=== PATIENT | female | born 1955 | race Caucasian/White ===

== ENCOUNTER → 2017-12-10 05:45 | Outpatient (CLI) | payer SELFPAY | PROVIDERS: Family Provider Student in an Organized Health Care Education/Training Program; PCP Student in an Organized Health Care Education/Training Program; Visit Provider Surgery | DX: Z53.9 Procedure and treatment not carried out, unspecified reason (principal) ==

== ENCOUNTER 2018-05-06 10:00 | Outpatient (RCR) | payer MEDICARE, SELFPAY ==
--- NOTE | 2018-03-06 07:29 | HP.PTEVAL ---
Patient's Visit Information JANETTE MENESES is a 63 year old F referred to Physical Therapy by [facility] Doctor with a diagnosis of R completed rotator cuff tear with subsequent repair. Date of Evaluation: 02/26/18 Physical Therapist: Andrei Chand - Visit Plan Frequency: 2-3x /Week Duration: 6-8 weeks Plan: Start with phase I of RTC protocol and progres HEP. Cont. to progress per protocol. - Subjective Subjective: Pt. is here today for her initial evaluation with diagnosis of complete R rotator cuff tear with repair. DOS on January 302017. Pt. arrives with sling on without issues. Pt. reports having dull pain in R shoulder all the time, but no sharp pains. Pt. has not been completing any exercises. She has been icing and prescribed. Pt. is able to sleep, but does have increaed discomfort at night. Pt. denies N/T in either UE. Pt. reports no mechanism of injury, but just started having increased pain. Pt. is hopeful to increase ROM, strength in order to get back to all recreational activities and ADLs without limitations. - Pain R shoulder Pain Intensity (Out of 10): 2 Pain Intensity Range: 2, 6 - Objective POSTURE: Pt. keeps R arm in guarded positioning. SLightly elevated R shoulder, but able to correct. Pt. has increased thoracic kyphosis and rounded shoulders bilaterally, R worse than L. PALPATION: Pt. has well healing incisions, no signs of infections. NO increased warmth noted. NEUROLOGICAL: Pt. has normal sensation to light and sharp touch of bilateral UEs. Pt. has 2+ triceps and biceps DTR bilaterally. ROM: L shoulder- full AROM without increase in symptoms. R shoulder- PROM- flexion 93deg, abd 87deg, ER at side 15deg. Pt. reports pain with all motions, empty end feel noted. MMT: L shoulder- 5/5 throughout no increase in symptoms. R shoulder- DNT due to recent surgery and tissue integrity. R elbow- flexion 4/5, ext 4/5, no pain noted. - Goals Goal 1:: Pt. to be I with HEP. Goal Time Frame: 4-6 Weeks Goal 2:: Pt. to have increased PROM of R shoulder to full motion with 0-1/10 pain. Goal Time Frame: 2-4 Weeks Goal 3:: Pt. to have full AROM of R shoulder with 0-1/10 pain allowing for increased tolerance to all ADls. Goal Time Frame: 4-6 Weeks Goal 4:: Pt. to have increased R shoulder strength to atleast 4/5 without increase in symptoms allowing increased ability to complete all ADLs and recreational activities. Goal Time Frame: 6-8 Weeks Goal 5:: Pt. to sleep throughout the night with 0-1/10 pain in R shoulder allowing for increased quality of life. Goal Time Frame: 2-4 Weeks Goal 6:: Pt. to resume all ADls without increase in symptoms. - Rehabilitation Potential Physical Therapy Diagnosis: Pt. has signs and symptoms of a R RTC repair, with subsequent hypombility, weakness, increased pain and limited ability to functionally use her RUE. Pt. would benefit from PT to increase R shoulder PROM, AROM, progressing to strength in order to get back to proper functional use of R UE. Rehabilitation Potential: Excellent - Anticipated Interventions Patient/Client Instruction: Educate patient on: Condition, Plan of Care, Risk Factors, Benefits of Fitness Program For the Purpose of:: To foster healthy habits, To improve decision making, To facilitate caregiver knowledge, To improve self management, To prevent re-injury, To improve ability to perform tasks related to life management, To improve tolerance to ADL's Therapeutic Exercise to Include: Strength training, Power training, Postural training, Flexibilty training, Passive ROM, Active ROM, Scapular Strength/Stabilization For the Purpose of:: To decrease pain, To increase ROM, To improve nutrient delivery to tissue, To increase oxygenation perfusion, To improve muscle performance and motor function, To improve ability to perform ADL's, To improve performance and independence with ADL's, To improve health of tissue, To decrease soft tissue restriction, To increase flexibility/ROM Manual Therapy Techniques to Include: Mobilization, Passive ROM, Soft tissue mobilization For the Purpose of:: To decrease pain, To increase ROM, To improve muscle performance and motor function, To decrease soft tissue restriction, To increase flexibility/ROM IF ES: Yes Cryotherapy (ice pack, ice massage): Yes For the Purpose of:: To decrease pain, To decrease swelling/inflammation, To increase ROM Thank you for the opportunity to evaluate your patient. For Medicare and Medicare HMO plans, please review the plan of care and approve it. It will need to be FAXED BACK to us at [phone] for Medicare purposes. Please let me know if there are questions or concerns regarding this plan of care. Physician Signature: Date:
--- NOTE | 2018-04-16 14:01 | HP.PTREVAL_ITS ---
ARNOLDO KIMBLE, It has been my pleasure to treat JANETTE MENESES over the last 6 visits for R completed rotator cuff tear with subsequent repair. Please see the progress note below for an update on the physical therapy plan of care! Subjective: Pt. arrives today with another script from physician for end range phase I and phase II progression. Pt. reports physician was not thrilled that she removed her self from her sling earlier that she was instructed. pt. reports being HEP compliant. Objective/Function: Pt. tolerated all motions and exercises without limitations this date. Pt. cotniues to progress. she is limited with functional IR to gluteal region, pt. to focus on over the next few days. Plan Plan: Cont w/ POC. Goals Goal 1:: Pt. to be I with HEP. Goal Time Frame: 4-6 Weeks Goal Progress: Progressing Goal 2:: Pt. to have increased PROM of R shoulder to full motion with 0-1/10 pain. Goal Time Frame: 2-4 Weeks Goal Progress: Progressing Goal 3:: Pt. to have full AROM of R shoulder with 0-1/10 pain allowing for increased tolerance to all ADls. Goal Time Frame: 4-6 Weeks Goal Progress: Progressing Goal 4:: Pt. to have increased R shoulder strength to atleast 4/5 without increase in symptoms allowing increased ability to complete all ADLs and recreational activities. Goal Time Frame: 6-8 Weeks Goal Progress: Progressing Goal 5:: Pt. to sleep throughout the night with 0-1/10 pain in R shoulder allowing for increased quality of life. Goal Time Frame: 2-4 Weeks Goal Progress: Progressing Goal 6:: Pt. to resume all ADls without increase in symptoms. Anticipated Interventions Patient/Client Instruction: Educate patient on: Condition, Plan of Care, Risk Factors, Benefits of Fitness Program For the Purpose of:: To foster healthy habits, To improve decision making, To facilitate caregiver knowledge, To improve self management, To prevent re-injury , To improve ability to perform tasks related to life management, To improve tolerance to ADL's Therapeutic Exercise to Include: Strength training, Power training, Postural training, Flexibilty training, Passive ROM, Active ROM, Scapular Strength/ Stabilization For the Purpose of:: To decrease pain, To increase ROM, To improve nutrient delivery to tissue, To increase oxygenation perfusion, To improve muscle performance and motor function, To improve ability to perform ADL's, To improve performance and independence with ADL's, To improve health of tissue, To decrease soft tissue restriction, To increase flexibility/ROM Manual Therapy Techniques to Include: Mobilization, Passive ROM, Soft tissue mobilization For the Purpose of:: To decrease pain, To increase ROM, To improve muscle performance and motor function, To decrease soft tissue restriction, To increase flexibility/ROM IF ES: Yes Cryotherapy (ice pack, ice massage): Yes For the Purpose of:: To decrease pain, To decrease swelling/inflammation, To increase ROM Please do not hesitate to contact me at [phone] by phone or Fax: if you have questions or concerns regarding this new plan of care! Sincerely, Andrei Chand
--- NOTE | 2018-06-24 14:23 | HP.PTDCNRP_ITS ---
HP - Discharge Summary (1) - Patient Information JANETTE MENESES was seen in my office for initial evaluation on 02/26/18. The following Plan of Care was established for this patient: Initial Frequency: 2-3x /Week Initial Duration: 6-8 weeks - Anticipated Interventions Patient/Client Instruction: Educate patient on: Condition, Plan of Care, Risk Factors, Benefits of Fitness Program For the Purpose of:: To foster healthy habits, To improve decision making, To facilitate caregiver knowledge, To improve self management, To prevent re- injury, To improve ability to perform tasks related to life management, To im prove tolerance to ADL's Therapeutic Exercise to Include: Strength training, Power training, Postural training, Flexibilty training, Passive ROM, Active ROM, Scapular Strength /Stabilization For the Purpose of:: To decrease pain, To increase ROM, To improve nutrient delivery to tissue, To increase oxygenation perfusion, To improve muscle performance and motor function, To improve ability to perform ADL's, To improve performance and independence with ADL's, To improve health of tissue, To decrease soft tissue restriction, To increase flexibility/ROM Manual Therapy Techniques to Include: Mobilization, Passive ROM, Soft tissue mobilization For the Purpose of:: To decrease pain, To increase ROM, To improve muscle performance and motor function, To decrease soft tissue restriction, To increase flexibility/ROM IF ES: Yes Cryotherapy (ice pack, ice massage): Yes For the Purpose of:: To decrease pain, To decrease swelling/inflammation, To increase ROM This patient was last seen in our office 05/06/18. Pertinent comments regarding their Physical therapy will appear below: Pt. was seen for her RTC repair. Pt. was seen on and off for 2 months. She was progressing, but slower than expected. At our last visit, pt. was still having difficulty with functional IR. Pt. has not been seen in ~7 weeks and will be DC back to physician at this point in time. At this point I will be discontinuing this patient from physical therapy. I would be happy to see this patient again in the future if found appropriate by the physician. Thank you! Andrei Chand
== END 2018-05-06 19:00 | disposition home or self-care (01) ==
LOC: PT 10:00
PROVIDERS: Family Provider Student in an Organized Health Care Education/Training Program; PCP Student in an Organized Health Care Education/Training Program
DX: M75.121 Complete rotator cuff tear or rupture of right shoulder, not specified as traumatic (principal)
CPT/HCPCS: 97110; 97161

== ENCOUNTER → 2019-03-30 | Outpatient (CLI) | payer MEDICARE, SELFPAY ==
--- NOTE | 2019-03-30 13:24 | MRI_ITS ---
STUDY: MRI RIGHT KNEE REASON FOR EXAM: Female, 64 years old. Medial, anterior knee pain TECHNIQUE: Standardized fat and water weighted pulse sequences were obtained in all 3 orthogonal planes. COMPARISON: None. FINDINGS: Normal medial meniscus. Normal hyaline cartilage of the medial femorotibial compartment. Normal medial femoral condyle and tibial plateau. There is a complete rupture of the MCL at its origin on the medial femoral condyle and an intrasubstance tear. Normal distal semimembranosus, gracilis and semitendinosus tendons. Normal lateral meniscus. Normal hyaline cartilage of the lateral femorotibial compartment. Normal lateral femoral condyle and tibial plateau. Normal proximal tibiofibular articulation. Normal lateral collateral (fibular) ligament. Normal popliteus tendon. Normal biceps femoris tendon. Normal anterior cruciate ligament (ACL). Normal posterior cruciate ligament (PCL). Normal congruent patellofemoral articulation. There is diffuse, greater than 50% thickness articular cartilage loss of the patellofemoral compartment, most prominent along the lateral facet with mild underlying degenerative changes of the patellar marrow. Normal medial and lateral patellar retinaculum. Normal quadriceps tendon. Normal patellar tendon. Normal Hoffa's fat pad. There is no joint effusion. There is a tiny Romo's cyst. The soft tissues are unremarkable. The otherwise visualized osseous structures are unremarkable. MRI/Lower Ext Joint Only (Routine) IMPRESSION: There is a complete rupture of the MCL. Chondromalacia of the patellofemoral compartment. Electronically Signed: Gilberto Malu, at 17:04 EDT Tel , Service support ,
== END | disposition home or self-care (01) ==
PROVIDERS: Family Provider Student in an Organized Health Care Education/Training Program; PCP Student in an Organized Health Care Education/Training Program; Referring Provider Physician Assistant; Visit Provider Physician Assistant
DX: M25.561 Pain in right knee (principal)
CPT/HCPCS: 73721

== ENCOUNTER → 2019-08-11 09:20 | Outpatient (CLI) | payer MEDICARE, SELFPAY ==
[2019-08-11 09:10] VITALS: BMI 39.4
--- NOTE | 2019-08-11 09:22 | RAD_ITS ---
STUDY: X-RAY - RIGHT KNEE REASON FOR EXAM: Right knee pain. TECHNIQUE: 4 view(s) of the knee. COMPARISON: None. FINDINGS: Normal visualized distal femur. Normal visualized proximal tibia and fibula. Normal proximal tibiofibular articulation. Normal medial femorotibial compartment. Normal lateral femorotibial compartment. Normal patellofemoral articulation. There is mild patellar enthesopathy. RAD/Knee 4 or More Views IMPRESSION: Mild patellar enthesopathy. Otherwise, unremarkable x-ray examination of the right knee. Electronically Signed: Tor Gallego MD at 11:22 EST Tel , Service support ,
== END ==
PROVIDERS: Family Provider Student in an Organized Health Care Education/Training Program; PCP Student in an Organized Health Care Education/Training Program; Referring Provider Orthopaedic Surgery; Visit Provider Orthopaedic Surgery
DX: M25.561 Pain in right knee (principal)
CPT/HCPCS: 73564

== ENCOUNTER 2020-06-08 07:51 | Day surgery (SDC) | payer MEDICARE, SELFPAY ==
[2020-05-25 14:38] VITALS: BMI 39.4
--- NOTE | 2020-05-26 02:19 | HP_ITS ---
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 Is patient in pain?: No Allergies adhesive tape Allergy (Verified 05/25/20 14:38) Rash Medications Aspirin/Acetaminophen/Caffeine [Excedrin Migraine Caplet] 1 ea PO PRN PRN 11/06/17 [History Confirmed 05/25/20] Cinnamon Bark [Cinnamon] 350 mg PO DAILY 11/06/17 [History Confirmed 05/25/20] Duloxetine HCl 90 mg PO DAILY 11/06/17 [History Confirmed 05/25/20] Ergocalciferol [Vitamin D] 50,000 unit PO Q7D 11/06/17 [History Confirmed 05/25/20] Krill/Clements-3/Dha/Epa/Lipids [Clements-3 Krill Oil 300 mg Sftg] 1 ea PO DAILY 11/06/17 [History Confirmed 05/25/20] Levothyroxine [Synthroid] 25 mcg PO DAILY 11/06/17 [History Confirmed 05/25/20] Losartan Potassium [Cozaar] 50 mg PO DAILY 11/06/17 [History Confirmed 05/25/20] Magnesium 250 mg PO DAILY 11/06/17 [History Confirmed 05/25/20] Omeprazole [Prilosec] 20 mg PO PRN PRN 11/06/17 [History Confirmed 05/25/20] buPROPion SR [Wellbutrin Sr] 150 mg PO DAILY 11/06/17 [History Confirmed 05/25/20] metFORMIN HCl [Glucophage] 1,000 mg PO BIDCM 11/06/17 [History Confirmed 05/25/20] Handicap Placard See Rx Instructions .ROUTE .COMPLEX #1 unit 03/06/19 [Rx Confirmed 08/11/19] PFSH Medical History Depression (Acute) Diabetes (Acute) Migraines (Acute) S/p nephrectomy (Acute) HTN (hypertension) (Chronic) Surgical History History of lobectomy of thyroid (Acute) S/P exploratory laparotomy (Acute) S/P hysterectomy (Acute) S/P shoulder surgery (Acute) Family History Father Colon cancer Brother Cancer bladder Social History (Updated 05/26/20 @ 14:[address] Hector Casiano MD) Smoking Status: Former smoker alcohol intake: current alcohol intake frequency: holidays/special occasions only HPI HPI Surgical H&P: Yes HPI: JANETTE MENESES, is a 65 F who presents to the office today for Evaluation for endoscopy. Patient has been having progressive symptoms of chest pain with reflux now having some epigastric pain. She has been treating this with [id number] Prilosec. In addition she has Has never had a colonoscopy. ROS General General: Yes fatigue; no weight change, appetite, colon cancer, breast cancer or weakness HEENT HEENT: No difficulty swallowing, eye injury, eye surgery, swollen glands or hoarseness Endo Endocrine: Yes diabetes mellitus; no thyroid disease, thyroid cancer, Hair loss, heat intolerance or cold intolerance Skin Skin: No rash or changing moles Breast Breast: No left breast lump, right breast lump, nipple discharge, breast pain, abnormal mammogram, abnormal US or breast enlargement Musc Musculoskeletal: Yes back problems; no arthritis, rheumatoid arthritis, gout or joint pain Cardio Cardiovascular: No murmur, pacemaker, heart disease, atrial fibrillation, high blood pressure, heart attack, heart stent, palpitations, shortness of breat with exertion or chest pain Psych Psychiatric: Yes depression and anxiety; no hearing voices Resp Respiratory: Yes shortness of breath, Yes sleep apnea, Yes cough, No COPD, No asthma, No emphysema, No wheezing Gastro Gastrointestinal: No abdominal pain, No nausea or vomiting, Yes diarrhea, Yes constipation, Yes blood in stool, Yes acid reflux, Yes hemorrhoids, No ulcers, No gallbladder problem, No black,tarry stools Ketan Hematologic: No blood thinners, No blood disorders, No bleeding, No anemia, No blood clots Neuro Neurologic: No system reviewed and no additional complaints, except as docu, No as per HPI, No abnormal walking, No abnormal hearing, No abnormal movements, No abnormal speech, No behavioral changes, No burning sensations, No confusion, No seizure-like activity, No unsteadiness, No dizziness, No localized weakness, No frequent falls, No headache(s), No lack of coordination, No loss of vision, No memory loss, No numbness, No other visual disturbances, No radiating pain, No restless legs, No sensory deficit, No fainting, No tingling, No tremor(s), No weakness, No other Exam Const General: no acute distress, well developed, well hydrated Orientation: oriented to person, oriented to place, oriented to time [facility] Head: normocephalic, atraumatic Ears: external ears normal Mouth: moist mucous membranes Eyes Sclera: sclerae normal Pupils: normal by confrontation Neck Neck: no lymphadenopathy noted Neck mass: No Thyroid: thyroid normal, symmetrical Chest Chest palpation & inspection: normal inspection of the chest Breast Palpation: No nipple discharge Resp Effort & Inspection: normal respiratory effort Auscultation: clear to auscultation bilaterally Percussion: percussion normal Cardio Rate: regular rate Rhythm: regular rhythm Heart Sounds: no murmurs GI Palpation: soft, no hepatosplenomegaly, no masses, nontender Rectal Exam: other Other: Rectal exam deferred. Extrem General: normal to inspection, no clubbing, cyanosis or edema Assessment & Plan Problems 1. Gastroesophageal reflux disease, esophagitis presence not specified K21.9 2. Encounter for screening colonoscopy Z12.11 Plan I have discussed the above with the patient. I have offered the patient colonoscopy As well as an EGD for evaluation. I have explained the risks/benefits of the procedure and described the procedure. I have discussed the risks with the patient, including but not limited to: infection, bleeding, perforation of the GI tract requiring emergency surgery, inability to complete the procedure, injury to any internal organs, complications of anesthesia, etc. - the patient understands and agrees to proceed. I have answered all the patient's questions to the patient's satisfaction and the patient has no further questions. The patient has been given instructions for the colon cleansing preparation. Coding Level of Care Code Off vis,new,level 3 Diagnoses Gastroesophageal reflux disease, esophagitis presence not specified K21.9 ??Esophagitis presence: esophagitis presence not specified Encounter for screening colonoscopy Z12.11 05/26/20 1420 <Electronically signed by Hector carreon MD> Date _ Hector Casiano MD I have re-examined the patient. There are no clinical changes since date of exam.
[2020-06-08 08:03] VITALS: BP 151/75; PULSE 120; RESP 16; TEMP 35.9; BMI 41.1
[2020-06-08] MEDS: Lactated Ringers 1,000 ML 100 ML IV (08:28)
--- NOTE | 2020-06-08 09:00 | IMM_PTH ---
PATIENT: JANETTE MENESES LOC: EN U#:[id number] AGE/SX: 65/F ROOM: RE06/08/[address]: Dr. Hector Casiano MD : 1955 BED: DIS: 06/08/2020 SPEC #: [id number] RECD: 06/09/20 09:25 STATUS: MANNIE REQ #: [id number] TAYLOR: 06/08/20 09:[address]: Hector Casiano DEPT: IMMUNOHISTOCHEMISTRY RECD BY: Cheri Ruiz ENTERED: 06/09/20 09:26 SP TYPE: IMMUNO OTHR DR: Dr. Juan Locke, Tissues: Stomach, NOS Procedures: H Pylori (initial) PHYSICIAN & INSTITUTION [place] [id number] SPECIMEN INFORMATION: Tissue Source: Antrum biopsy Clinical Info: GERD, screening Specimen Number: [id number] CPT code: 43031 METHODOLOGY: Deparaffinized sections of prefer/formalin-fixed tissue or PAP/DQ stained slides are incubated with monoclonal/polyclonal antibodies/oligonucleotide probes. Localization is made via biotin free immunoperoxidase method. Appropriate controls are performed and reacted as expected. Results on target cell population are indicated in the following table: RESULTS: ANTIBODY / CLONE RESULT H Pylori (polyclonal) negative These tests were developed and their performance characteristics determined by [facility]. They may not have been cleared or approved by the U.S. Food and Drug Administration. The FDA has determined that such clearance or approval is not necessary. INTERPRETATION: Antrum biopsy: Negative for Helicobacter pylori organisms. AM:edith 06/10/20
--- NOTE | 2020-06-08 09:00 | COLBX_PTH ---
PATIENT: JANETTE MENESES LOC: EN U#:[id number] AGE/SX: 65/F ROOM: RE06/08/[address]: Dr. Hector Casiano MD : 1955 BED: DIS: 06/08/2020 SPEC #: [id number] RECD: 06/08/20 15:07 STATUS: MANNIE ALIREZA #: [id number] TAYLOR: 06/08/20 09:[address]: Hector Casiano DEPT: SURGICAL PATHOLOGY RECD BY: Daniella Ramires ENTERED: 06/09/20 09:13 SP TYPE: COLON BX OTHR DR: Dr. Juan Locke, DO Tissues: Gastric mucous membrane Procedures: Surgery Specimen Level IV HEADER OPERATION: [place] [place] DIAGNOSIS: GERD, screening TISSUE SUBMITTED: Antrum biopsy for histo and H. pylori MICROSCOPIC DIAGNOSIS Gastric antrum, biopsy: Mild chronic gastritis. See comment. AM:edith 06/10/20 COMMENT The results of immunohistochemistry for Helicobacter pylori will be reported separately ([id number]). MICROSCOPIC DESCRIPTION Slides are reviewed. GROSS DESCRIPTION Received in fixative is one container labeled with the patient's name and designated antrum biopsy. The specimen consists of one irregular fragment of light giles soft tissue that measures 0.7 x 0.2 x 0.1 cm. The specimen is totally submitted in one cassette. / SJ:edith 06/09/20 TC:3 CPT: 47862
[2020-06-08 09:25] VITALS: BP 119/83; BP 151/75; PULSE 102; RESP 18; TEMP 36.6; O2SAT 95
--- NOTE | 2020-06-08 09:27 | OP.EGD_ITS ---
Patient Name: Barbara Ledesma Procedure Date: 06/08/2020 8:52 AM Date of : 1955 Age: 65 Procedure: Upper GI endoscopy Indications: Gastro-esophageal reflux disease Providers: Hector Casiano MD Referring MD: Juan Locke Medicines: See the Anesthesia note for documentation of the administered medications Patient Profile: This is a 65 year old female. Refer to note in patient chart for documentation of history and physical. Complications: No immediate complications. Procedure: Pre-Anesthesia Assessment: - Prior to the procedure, a History and Physical was performed, and patient medications and allergies were reviewed. The patient's tolerance of previous anesthesia was also reviewed. The risks and benefits of the procedure and the sedation options and risks were discussed with the patient. All questions were answered, and informed consent was obtained. Prior Anticoagulants: The patient has taken aspirin, last dose was 7 days prior to procedure. ASA Grade Assessment: II - A patient with mild systemic disease. After reviewing the risks and benefits, the patient was deemed in satisfactory condition to undergo the procedure. After obtaining informed consent, the endoscope was passed under direct vision. Throughout the procedure, the patient's blood pressure, pulse, and oxygen saturations were monitored continuously. The gastroscope was introduced through the mouth, and advanced to the second part of duodenum. The upper GI endoscopy was accomplished without difficulty. The patient tolerated the procedure well. Scope In: 9:04:04 AM Scope Out: 9:06:48 AM Total Procedure Duration Time 0 hours 2 minutes 44 seconds Findings: A small hiatal hernia was present. No biopsies or other specimens were collected for this exam. The Z-line was regular and was found 39 cm from the incisors. No biopsies or other specimens were collected for this exam. The entire examined stomach was normal. Biopsies were taken with a cold forceps for Helicobacter pylori testing. The examined duodenum was normal. No biopsies or other specimens were collected for this exam. Impression: - Small hiatal hernia. No specimens collected. - Z-line regular, 39 cm from the incisors. No specimens collected. - Normal stomach. Biopsied. - Normal examined duodenum. No specimens collected. Recommendation: - Discharge patient to home. - Resume previous diet. - Continue present medications. - Await pathology results. - Repeat upper endoscopy (date not yet determined) for surveillance. - Return to my office in 1 week. - Perform ambulatory esophageal manometry at appointment to be scheduled. This will be completed if her symptoms do not resolve on PPIs. Procedure Code(s): --- Professional --- 79790, Esophagogastroduodenoscopy, flexible, transoral; with biopsy, single or multiple Diagnosis Code(s): --- Professional --- K44.9, Diaphragmatic hernia without obstruction or gangrene K21.9, Gastro-esophageal reflux disease without esophagitis CPT copyright 2017 [employer]. All rights reserved. The codes documented in this report are preliminary and upon cattle manager review may be revised to meet current compliance requirements. MD Hector Rosales MD 06/08/2020 9:27:29 AM This report has been signed electronically. Number of Addenda: 0 Note Initiated On: 06/08/2020 8:52 AM
--- NOTE | 2020-06-08 09:28 | OP.CCLET_ITS ---
06/08/2020 Juan Locke [address] [id number] Re : Upper GI endoscopy procedure for Barbara Ledesma Dear Dr. Locke This procedure was performed on Monday, June 08, 2020. My impressions and recommendations are as follows: Impressions : - Small hiatal hernia. No specimens collected. - Z-line regular, 39 cm from the incisors. No specimens collected. - Normal stomach. Biopsied. - Normal examined duodenum. No specimens collected. Recommendations : - Discharge patient to home. - Resume previous diet. - Continue present medications. - Await pathology results. - Repeat upper endoscopy (date not yet determined) for surveillance. - Return to my office in 1 week. - Perform ambulatory esophageal manometry at appointment to be scheduled. This will be completed if her symptoms do not resolve on PPIs. My findings are described in the full procedure note, which is enclosed. If I can be of further assistance, please feel free to contact me at Doctor phone number(s): , Fax: [phone], Work: . Sincerely, MD Hector Rosales MD 06/08/2020 9:27:29 AM This report has been signed electronically.
[2020-06-08 09:29] VITALS: BP 126/87; BP 151/75; PULSE 102; RESP 18; O2SAT 93
--- NOTE | 2020-06-08 09:30 | OP.CCLET_ITS ---
06/08/2020 Juan Locke [address] [id number] Re : Colonoscopy procedure for Barbara Ledesma Dear Dr. Locke This procedure was performed on Monday, June 08, 2020. My impressions and recommendations are as follows: Impressions : - Diverticulosis in the sigmoid colon and in the descending colon. No specimens collected. - Non-bleeding internal hemorrhoids. No specimens collected. - The examination was otherwise normal. Recommendations : - Discharge patient to home. - Resume previous diet. - Continue present medications. - Repeat colonoscopy in 10 years for screening purposes. - Return to my office in 1 week. My findings are described in the full procedure note, which is enclosed. If I can be of further assistance, please feel free to contact me at Doctor phone number(s): , Fax: [phone], Work: . Sincerely, MD Hector Rosales MD 06/08/2020 9:30:03 AM This report has been signed electronically.
--- NOTE | 2020-06-08 09:30 | OP.COLON_ITS ---
Patient Name: Barbara Ledesma Procedure Date: 06/08/2020 9:07 AM Date of : 1955 Age: 65 Procedure: Colonoscopy Indications: Screening for colorectal malignant neoplasm Providers: Hector Casiano MD Referring MD: Juan Locke Medicines: See the Anesthesia note for documentation of the administered medications Patient Profile: This is a 65 year old female. Refer to note in patient chart for documentation of history and physical. Last Colonoscopy: none. The patient's first colonoscopy is today. Complications: No immediate complications. Procedure: Pre-Anesthesia Assessment: - Prior to the procedure, a History and Physical was performed, and patient medications and allergies were reviewed. The patient's tolerance of previous anesthesia was also reviewed. The risks and benefits of the procedure and the sedation options and risks were discussed with the patient. All questions were answered, and informed consent was obtained. Prior Anticoagulants: The patient has taken aspirin, last dose was 7 days prior to procedure. ASA Grade Assessment: II - A patient with mild systemic disease. After reviewing the risks and benefits, the patient was deemed in satisfactory condition to undergo the procedure. - Prior to the procedure, a History and Physical was performed, and patient medications and allergies were reviewed. The patient's tolerance of previous anesthesia was also reviewed. The risks and benefits of the procedure and the sedation options and risks were discussed with the patient. All questions were answered, and informed consent was obtained. Prior Anticoagulants: The patient has taken aspirin, last dose was 7 days prior to procedure. ASA Grade Assessment: III - A patient with severe systemic disease. After reviewing the risks and benefits, the patient was deemed in satisfactory condition to undergo the procedure. After I obtained informed consent, the scope was passed under direct vision. Throughout the procedure, the patient's blood pressure, pulse, and oxygen saturations were monitored continuously. The colonoscope was introduced through the anus and advanced to the cecum, identified by appendiceal orifice and ileocecal valve. The colonoscopy was performed without difficulty. The patient tolerated the procedure well. The quality of the bowel preparation was adequate to identify polyps 6 mm and larger in size. Scope In: 9:08:23 AM Scope Withdrawal Time 0 hours 6 minutes 5 seconds Scope Out: 9:20:35 AM Total Procedure Duration Time 0 hours 12 minutes 12 seconds Findings: A few small-mouthed diverticula were found in the sigmoid colon and descending colon. No biopsies or other specimens were collected for this exam. Non-bleeding internal hemorrhoids were found during retroflexion. The hemorrhoids were mild and small. No biopsies or other specimens were collected for this exam. The exam was otherwise without abnormality. Impression: - Diverticulosis in the sigmoid colon and in the descending colon. No specimens collected. - Non-bleeding internal hemorrhoids. No specimens collected. - The examination was otherwise normal. Recommendation: - Discharge patient to home. - Resume previous diet. - Continue present medications. - Repeat colonoscopy in 10 years for screening purposes. - Return to my office in 1 week. Procedure Code(s): --- Professional --- G0121, Colorectal cancer screening; colonoscopy on individual not meeting criteria for high risk Diagnosis Code(s): --- Professional --- Z12.11, Encounter for screening for malignant neoplasm of colon K64.8, Other hemorrhoids K57.30, Diverticulosis of large intestine without perforation or abscess without bleeding CPT copyright 2017 [employer]. All rights reserved. The codes documented in this report are preliminary and upon certified residential medication aide review may be revised to meet current compliance requirements. MD Hector Rosales MD 06/08/2020 9:30:03 AM This report has been signed electronically. Number of Addenda: 0 Note Initiated On: 06/08/2020 9:07 AM
[2020-06-08 09:35] VITALS: BP 123/92; BP 151/75; PULSE 100; RESP 16; O2SAT 94
[2020-06-08 09:40] VITALS: BP 133/84; BP 151/75; PULSE 101; RESP 18; TEMP 36.8; O2SAT 94
[2020-06-08 10:16] VITALS: BP 151/75
[2020-06-08 20:05] LABS: Bedside Glucose 326 mg/dL (70-110)
[2020-06-08 20:05] LABS: Bedside Glucose 324 mg/dL (70-110)
== END 2020-06-08 10:26 | disposition home or self-care (01) ==
LOC: EN 07:51 → AC 07:52
PROVIDERS: PCP Student in an Organized Health Care Education/Training Program; Referring Provider Student in an Organized Health Care Education/Training Program; Visit Provider Surgery
PROC: 0DJD8ZZ Inspection of Lower Intestinal Tract, Via Natural or Artificial Opening Endoscopic (ICD-10-PCS; CPT 45378; principal; 2020-06-08 08:55)
DX: Z12.11 Encounter for screening for malignant neoplasm of colon (principal); K21.9 Gastro-esophageal reflux disease without esophagitis; K44.9 Diaphragmatic hernia without obstruction or gangrene; K57.30 Diverticulosis of large intestine without perforation or abscess without bleeding; K64.8 Other hemorrhoids; Z79.899 Other long term (current) drug therapy; Z79.84 Long term (current) use of oral hypoglycemic drugs; I10 Essential (primary) hypertension; E11.9 Type 2 diabetes mellitus without complications; F32.9 Major depressive disorder, single episode, unspecified; Z87.891 Personal history of nicotine dependence; K29.50 Unspecified chronic gastritis without bleeding
CPT/HCPCS: 43239; G0121; 82962; 87635; 88305; 88342; C9803; J7120; J2405; U0003

== ENCOUNTER → 2022-08-27 | Outpatient (CLI) | payer MEDICARE, SELFPAY ==
--- NOTE | 2022-08-27 14:23 | US_ITS ---
STUDY: RENAL ULTRASOUND - COMPLETE REASON FOR EXAM: Female, 67 years old. UTI chronic. Right nephrectomy in 1974. TECHNIQUE: Ultrasound evaluation of the kidneys was performed with real-time and static land-scale imaging. COMPARISON: None. FINDINGS: RIGHT KIDNEY: Postsurgical absence. DISTAL RIGHT URETER: There is non-visualization of the distal right ureter. There is no demonstrated right ureterovesical junction calculus. There is nonvisualization of the right ureteral jet. LEFT KIDNEY: Normal location of the left kidney, which is normal in size. The left kidney measures 12.2 x 6.5 x 6.3 cm. There is a normal cortex of the left kidney. The renal cortex measures 1.9 cm. There is no left renal mass or cyst. There are no left renal calculi. There is no left hydronephrosis. DISTAL LEFT URETER: There is non-visualization of the distal left ureter. There is no demonstrated left ureterovesical junction calculus. There is a visualized left ureteral jet. BLADDER: The distended urinary bladder has a volume of 200 ml. There is a normal 0.5 cm wall thickness of the distended urinary bladder. There is no demonstrated mass within the urinary bladder. There are no demonstrated bladder calculi. US/Kidney and Bladder IMPRESSION: 1. Normal ultrasound of the left kidney and urinary bladder. 2. Postsurgical absence of the right kidney. Electronically Signed: Nasir Ashley MD at 15:32 EST ,
== END | disposition home or self-care (01) ==
LOC: US 14:21
PROVIDERS: PCP Student in an Organized Health Care Education/Training Program; Referring Provider Urology; Visit Provider Urology
DX: N39.0 Urinary tract infection, site not specified (principal); Z90.5 Acquired absence of kidney
CPT/HCPCS: 76770

== ENCOUNTER 2023-02-22 06:14 | Day surgery (SDC) | payer MEDICARE, SELFPAY ==
[2023-02-22] VITALS (8 sets, daily range): BP systolic 106–145; BP diastolic 72–88; PULSE 89–102; RESP 16–17; TEMP 36.4–36.6; O2SAT 91–98; BMI 36.0
--- NOTE | 2023-02-22 | GASB_PTH ---
PATIENT: JANETTE MENESES LOC: EN U#:[id number] AGE/SX: 68/F ROOM: RE02/22/[address]: Dr. Ben Garcia MD : 1955 BED: DIS: 02/22/2023 SPEC #: [id number] RECD: 02/22/23 13:12 STATUS: MANNIE LAY #: [id number] TAYLOR: 02/22/23 00:[address]: Ben Garcia DEPT: SURGICAL PATHOLOGY RECD BY: Marv Canales ENTERED: 02/22/23 13:14 SP TYPE: Gastric Bx OTHR DR: Dr. Juan Locke, DO Tissues: A - Duodenum, NOS B - Gastric mucous membrane C - Esophageal mucous membrane D - Stomach, NOS E - Esophageal mucous membrane F - COLON BIOPSY G - Sigmoid colon biopsy H - Rectum, NOS Procedures: Special Stain Group II Surgery Specimen Level IV Alcian Blue/PAS (control) HEADER OPERATION: Colonoscopy with polypectomy and biopsies, EGD ([facility]) with biopsy PRE-OP DIAGNOSIS: Iron deficiency anemia, diarrhea TISSUE SUBMITTED: A ? Duodenum, B ? Antrum for H. pylori and path, C ? Distal esophagus, D ? Greater curvature, E ? Mid esophagus, F ? Random biopsies of colon, G ? Proximal sigmoid polyp biopsy, H - Rectal inflammation biopsy MICROSCOPIC DIAGNOSIS A. Duodenum, biopsy: A fragment of duodenal mucosa, no pathologic diagnosis. B. Antrum, biopsy: Mild gastritis. See microscopic description and comment. C. Distal esophagus, biopsy: Fragments of gastroesophageal mucosa with moderate chronic inflammation. Intestinal metaplasia (goblet cell metaplasia) not identified. See comment. D. Greater curvature, biopsy: Minimal gastritis. See microscopic description. E. Mid esophagus, biopsy: A fragment of gastroesophageal mucosa with chronic inflammation. Intestinal metaplasia (goblet cell metaplasia) not identified. See comment. F. Colon, random biopsy: Fragments of colonic mucosa, no pathologic diagnosis. G. Proximal sigmoid polyp, biopsy: Hyperplastic polyp. H. Rectal inflammation, biopsy: A fragment of colonic mucosa with focal ulceration and acute inflammation. See comment. SJ:rg 02/25/2023 COMMENT B. The results of immunohistochemistry for Helicobacter pylori will be reported separately ([id number]). C. Alcian blue/PAS stain with matched control is used in the evaluation of the specimen. E. Alcian blue/PAS stain with matched control is used in the evaluation of the specimen. H. Cryptitis, crypt abscesses, granuloma or glandular distortion are not seen. Correlation with clinical, endoscopic findings and appropriate follow up are necessary. MICROSCOPIC DESCRIPTION Slides are reviewed. B. The specimen shows fragments of gastric mucosa with chronic inflammatory cell infiltrates in the lamina propria consisting of lymphocytes and plasma cells, consistent with mild chronic gastritis. D. The specimen shows fragments of gastric mucosa with chronic inflammatory cell infiltrates in the lamina propria consisting of lymphocytes and plasma cells, consistent with minimal chronic gastritis. GROSS DESCRIPTION A - Received in fixative is one container labeled with the patient's name and designated duodenum. The specimen consists of one irregular fragment of light giles soft tissue that measures 0.3 x 0.3 x 0.1 cm. The specimen is totally submitted in one cassette. B - Received in fixative is one container labeled with the patient's name and designated antrum. The specimen consists of one irregular fragment of light giles soft tissue that measures 0.3 x 0.3 x 0.1 cm. The specimen is totally submitted in one cassette. C - Received in fixative is one container labeled with the patient's name and designated distal esophagus. The specimen consists of two irregular fragments of light giles soft tissue that in aggregate measure 0.7 x 0.4 x 0.1 cm. The specimen is totally submitted in one cassette. D - Received in fixative is one container labeled with the patient's name and designated greater curvature. The specimen consists of one irregular fragment of light giles soft tissue that measures 0.5 x 0.4 x 0.1 cm. The specimen is totally submitted in one cassette. E - Received in fixative is one container labeled with the patient's name and designated mid esophagus. The specimen consists of one irregular fragment of light giles soft tissue that measures 0.6 x 0.3 x 0.1 cm. The specimen is totally submitted in one cassette. F - Received in fixative is one container labeled with the patient's name and designated random biopsy of colon. The specimen consists of multiple irregular fragments of light giles soft tissue that in aggregate measure 1.5 x 0.5 x 0.1 cm. The specimen is totally submitted in one cassette. G - Received in fixative is one container labeled with the patient's name and designated proximal sigmoid polyp biopsy. The specimen consists of one irregular fragment of light giles soft tissue that measures 0.4 x 0.4 x 0.1 cm. The specimen is totally submitted in one cassette. H - Received in fixative is one container labeled with the patient's name and designated rectal inflammation biopsy. The specimen consists of one irregular fragment of light giles soft tissue that measures 0.3 x 0.3 x 0.1 cm. The specimen is totally submitted in one cassette. / SJ:rg 02/22/2023 TC: CPT: 81374 x8, 41017 x2
[2023-02-22] MEDS: Lactated Ringers 1,000 ML 15 ML IV (06:45)
--- NOTE | 2023-02-22 06:57 | PCM.HP.BLA ---
History and Physical Date of Admission: 02/22/23 Intake Visit Reasons:?Diarrhea & ANEMIA Chief Complaint: egd/c-scope Allergies adhesive tape Allergy (Verified 06/08/20 08:01) Rash PFSH Medical History? Depression Diabetes HTN (hypertension) Migraines S/p nephrectomy Surgical History? History of lobectomy of thyroid S/P exploratory laparotomy S/P hysterectomy S/P shoulder surgery Family History? Father Colon cancerBrother Cancer ?? ? bladder Social History? Smoking Status:? Former smoker alcohol intake:? current alcohol intake frequency: holidays/special occasions only HPI HPI HPI: 67-year-old female is being referred by Dr. Juan Locke for surgical consultation regarding diarrhea and iron deficiency anemia.? A written copy of my surgical consult recommendations will return to her.? It is of note that on December 27, 2022 iron level was 17 with a TIBC of 374 and a transferrin saturation of 4.5.? Ferritin was 20.? The patient wants to have her bowels straightened out.? She claims that she will intermittently have diarrhea but she has had that for at least a year or so [facility] records reviewed that she has had a previous colonoscopy on June 08, 2020.? Diverticulosis and hemorrhoids identified.? No active bleeding.? An upper endoscopy was performed at that same setting.? Small hiatal hernia noted gastric biopsy showed mild chronic gastritis and H. pylori was negative. Notes rectal bleeding.? Its been ongoing for period of time.? She thinks it secondary to hemorrhoids.? She has no abdominal pain.? She states that she has not been anemic in the past and that this is a newer diagnosis.? She is not sure whether she might need a future hemorrhoid procedure She also states that via laboratory that Dr. Juan Locke has been in evaluating that she has been newly diagnosed with celiac disease.? She has not yet started her gluten-free diet. ROS General General: Yes fatigue; No weight change, appetite, colon cancer, breast cancer or weakness HEENT HEENT: Yes eye injury; No difficulty swallowing, eye surgery, swollen glands or hoarseness Endo Endocrine: Yes thyroid disease; No diabetes mellitus, thyroid cancer, Hair loss, heat intolerance or cold intolerance Skin Skin: Yes rash; No changing moles Breast Breast: No left breast lump, right breast lump, nipple discharge, breast pain, abnormal mammogram, abnormal US or breast enlargement Musc Musculoskeletal: No back problems, arthritis, rheumatoid arthritis, gout or joint pain Cardio Cardiovascular: No murmur, pacemaker, heart disease, atrial fibrillation, high blood pressure, heart attack, heart stent, palpitations, shortness of breat with exertion or chest pain Psych Psychiatric: Yes depression and anxiety; No hearing voices Resp Respiratory: No shortness of breath, Yes sleep apnea, No cough, No COPD, No asthma, No emphysema and No wheezing Gastro Gastrointestinal: No abdominal pain, No nausea or vomiting, Yes diarrhea, Yes constipation, No blood in stool, Yes acid reflux, Yes hemorrhoids, No ulcers, No gallbladder problem and No black,tarry stools Ketan Hematologic: No blood thinners, No blood disorders, No bleeding, Yes anemia and No blood clots Neuro Neurologic: No system reviewed and no additional complaints, except as documented, No as per HPI, No abnormal gait, No abnormal hearing, No abnormal movements, No abnormal speech, No behavioral changes, No burning sensations, No confusion, No convulsions, No disequilibrium, No dizziness, No localized weakness, No frequent falls, No headache(s), No lack of coordination, No loss of vision, No memory loss, No numbness, No other visual disturbances, No radicular pain, No restless legs, No sensory deficit, No syncope, No tingling, No tremor(s), No weakness and No other Exam Const General: cooperative, healthy appearing and comfortable [facility] Head: normal to inspection Eyes General: appearance normal, both eyes and all related structures Neck Neck: normal visual inspection Resp Effort & Inspection: normal respiratory effort Auscultation: clear to auscultation bilaterally Cardio Rate: regular rate Rhythm: regular rhythm GI Palpation: soft and no hepatosplenomegaly Skin General: no rashes or lesions noted Neuro General: patient alert, patient awake and patient oriented x3 Extrem General: no calf tenderness Psych Appearance: grossly normal Assessment and Plan Assessment and Plan (1) Iron deficiency anemia: ?Status:?Acute (2) Diarrhea: ?Status:?Acute ?Plan: Iron deficiency anemia of undetermined etiology.? I recommended the patient a esophagogastroduodenoscopy with possible biopsy and colonoscopy with possible biopsy or polypectomy as indicated.? She has had an opportunity to ask and have questions answered.? Now it is of note that the patient has recently been diagnosed with celiac disease.? She has not converted yet back to a gluten-free diet.? Might consider random colonic biopsies as well. The patient notes ongoing problems with bright red blood per rectum on the tissue.? We will also then take very careful inspection for degree and type of potential hemorrhoids present.? The patient may be a candidate for future definitive hemorrhoid procedure. She has had an opportunity to ask and have questions answered.? I appreciate the opportunity of assisting with her surgical care.? We will schedule at patient convenience. Copy: Dr. Juan Garcia M.D., F.A.C.S. I have examined the patient and the H&P has been reviewed. There are no clinical changes since date of exam. Ben Garcia M.D., F.A.C.S.
--- NOTE | 2023-02-22 07:30 | IMM_PTH ---
PATIENT: JANETTE MENESES LOC: EN U#:[id number] AGE/SX: 68/F ROOM: RE02/22/[address]: Dr. Ben Garcia MD : 1955 BED: DIS: 02/22/2023 SPEC #: [id number] RECD: 02/22/23 13:42 STATUS: MANNIE REQ #: [id number] TAYLOR: 02/22/23 07:[address]: Ben Garcia DEPT: IMMUNOHISTOCHEMISTRY RECD BY: Cheri Ruiz ENTERED: 02/22/23 13:43 SP TYPE: IMMUNO OTHR DR: Dr. Juan Locke, DO Tissues: B - Stomach, NOS Procedures: H Pylori (initial) PHYSICIAN & INSTITUTION [address] [place] [id number] SPECIMEN INFORMATION: Tissue Source: B - Antrum Clinical Info: Iron deficiency anemia, diarrhea Specimen Number: [id number] CPT code: 24140 METHODOLOGY: Deparaffinized sections of prefer/formalin-fixed tissue or PAP/DQ stained slides are incubated with monoclonal/polyclonal antibodies/oligonucleotide probes. Localization is made via biotin free immunoperoxidase method. Appropriate controls are performed and reacted as expected. Results on target cell population are indicated in the following table: RESULTS: ANTIBODY / CLONE RESULT Block B H Pylori (polyclonal) negative These tests were developed and their performance characteristics determined by [facility]. They may not have been cleared or approved by the U.S. Food and Drug Administration. The FDA has determined that such clearance or approval is not necessary. The above immunohistochemical/dualISH markers are ordered and reviewed by the Pathologist. INTERPRETATION: B. Antrum, biopsy: Negative for Helicobacter pylori organisms. RONI:edith 02/25/2023
--- NOTE | 2023-02-22 08:21 | OP.EGD_ITS ---
Patient Name: Barbara Ledesma Procedure Date: 02/22/2023 7:29 AM Date of : 1955 Age: 68 Procedure: Upper GI endoscopy Indications: Iron deficiency anemia Providers: Ben Garcia MD Medicines: See the Anesthesia note for documentation of the administered medications Complications: No immediate complications. Procedure: Pre-Anesthesia Assessment: - Prior to the procedure, a History and Physical was performed, and patient medications and allergies were reviewed. The patient's tolerance of previous anesthesia was also reviewed. The risks and benefits of the procedure and the sedation options and risks were discussed with the patient. All questions were answered, and informed consent was obtained. Prior Anticoagulants: The patient has taken no previous anticoagulant or antiplatelet agents. ASA Grade Assessment: III - A patient with severe systemic disease. After reviewing the risks and benefits, the patient was deemed in satisfactory condition to undergo the procedure. After obtaining informed consent, the endoscope was passed under direct vision. Throughout the procedure, the patient's blood pressure, pulse, and oxygen saturations were monitored continuously. The Endoscope was introduced through the mouth, and advanced to the second part of duodenum. The upper GI endoscopy was accomplished without difficulty. The patient tolerated the procedure well. Scope In: 7:39:48 AM Scope Out: 7:47:43 AM Total Procedure Duration Time 0 hours 7 minutes 55 seconds Findings: LA Grade A (one or more mucosal breaks less than 5 mm, not extending between tops of 2 mucosal folds) esophagitis with no bleeding was found 35 cm from the incisors. Biopsies were taken with a cold forceps for histology. A mild Schatzki ring was found at the gastroesophageal junction. One column of non-bleeding grade II varices were found in the lower third of the esophagus, 33 cm from the incisors. No stigmata of recent bleeding were evident and no red batsheva signs were present. Diffuse moderately erythematous mucosa without bleeding was found on the greater curvature of the stomach and in the gastric antrum. Biopsies were taken with a cold forceps for histology. The examined duodenum was normal. Biopsies were taken with a cold forceps for histology. A medium-sized hiatal hernia was present. The middle third of the esophagus was normal. Biopsies were taken with a cold forceps for histology. Impression: - LA Grade A reflux esophagitis. Biopsied. - Mild Schatzki ring. - Non-bleeding grade II esophageal varices. - Erythematous mucosa in the greater curvature and antrum. Biopsied. - Normal examined duodenum. Biopsied. - Medium-sized hiatal hernia. - Normal middle third of esophagus. Biopsied. Recommendation: - Discharge patient to home. - Resume previous diet. - Continue present medications. - Telephone my office for pathology results in 1 week. No active bleeding. Copy of note to primary care as esophageal varices may be a new finding and warrant ongoing evaluation. Procedure Code(s): --- Professional --- 19822, Esophagogastroduodenoscopy, flexible, transoral; with biopsy, single or multiple Diagnosis Code(s): --- Professional --- K21.0, Gastro-esophageal reflux disease with esophagitis K22.2, Esophageal obstruction I85.00, Esophageal varices without bleeding K31.89, Other diseases of stomach and duodenum K44.9, Diaphragmatic hernia without obstruction or gangrene D50.9, Iron deficiency anemia, unspecified CPT copyright 2017 [employer]. All rights reserved. The codes documented in this report are preliminary and upon screen printing equipment setter review may be revised to meet current compliance requirements. Ben Garcia MD 02/22/2023 8:20:55 AM This report has been signed electronically. Number of Addenda: 0 Note Initiated On: 02/22/2023 7:29 AM
--- NOTE | 2023-02-22 08:22 | OP.CCLET_ITS ---
02/22/2023 Juan Locke [address] [id number] Re : Upper GI endoscopy procedure for Barbara Ledesma Dear Dr. Locke This procedure was performed on Wednesday, February 22, 2023. My impressions and recommendations are as follows: Impressions : - LA Grade A reflux esophagitis. Biopsied. - Mild Schatzki ring. - Non-bleeding grade II esophageal varices. - Erythematous mucosa in the greater curvature and antrum. Biopsied. - Normal examined duodenum. Biopsied. - Medium-sized hiatal hernia. - Normal middle third of esophagus. Biopsied. Recommendations : - Discharge patient to home. - Resume previous diet. - Continue present medications. - Telephone my office for pathology results in 1 week. No active bleeding. Copy of note to primary care as esophageal varices may be a new finding and warrant ongoing evaluation. My findings are described in the full procedure note, which is enclosed. If I can be of further assistance, please feel free to contact me at Doctor phone number(s): Work: . Sincerely, Ben Garcia MD 02/22/2023 8:20:55 AM This report has been signed electronically.
--- NOTE | 2023-02-22 08:27 | OP.COLON_ITS ---
Patient Name: Barbara Ledesma Procedure Date: 02/22/2023 7:48 AM Date of : 1955 Age: 68 Procedure: Colonoscopy Indications: Chronic diarrhea, Iron deficiency anemia Providers: Ben Garcia MD Medicines: See the Anesthesia note for documentation of the administered medications Patient Profile: Last Colonoscopy: none. The patient's first colonoscopy is today. Complications: No immediate complications. Procedure: Pre-Anesthesia Assessment: - Prior to the procedure, a History and Physical was performed, and patient medications and allergies were reviewed. The patient's tolerance of previous anesthesia was also reviewed. The risks and benefits of the procedure and the sedation options and risks were discussed with the patient. All questions were answered, and informed consent was obtained. Prior Anticoagulants: The patient has taken no previous anticoagulant or antiplatelet agents. ASA Grade Assessment: III - A patient with severe systemic disease. After reviewing the risks and benefits, the patient was deemed in satisfactory condition to undergo the procedure. After I obtained informed consent, the scope was passed under direct vision. Throughout the procedure, the patient's blood pressure, pulse, and oxygen saturations were monitored continuously. The adult colonoscope was introduced through the anus and advanced to the cecum, identified by appendiceal orifice and ileocecal valve. The colonoscopy was performed with moderate difficulty due to a redundant colon. The patient tolerated the procedure well. The quality of the bowel preparation was good. Scope In: 7:52:40 AM Scope Withdrawal Time 0 hours 9 minutes 11 seconds Scope Out: 8:13:23 AM Total Procedure Duration Time 0 hours 20 minutes 43 seconds Findings: The digital rectal exam findings include non-thrombosed external hemorrhoids, non-thrombosed internal hemorrhoids and internal hemorrhoids that prolapse with straining, but require manual replacement into the anal canal (Grade III). Multiple diverticula were found in the sigmoid colon and descending colon. A 5 mm polyp was found in the proximal sigmoid colon. The polyp was sessile. The polyp was removed with a cold biopsy forceps. Resection and retrieval were complete. A localized area of moderately inflamed mucosa was found in the proximal rectum. Biopsies were taken with a cold forceps for histology. Impression: - Non-thrombosed external hemorrhoids, non-thrombosed internal hemorrhoids and internal hemorrhoids that prolapse with straining, but require manual replacement into the anal canal (Grade III) found on digital rectal exam. - Diverticulosis in the sigmoid colon and in the descending colon. - One 5 mm polyp in the proximal sigmoid colon, removed with a cold biopsy forceps. Resected and retrieved. - Inflamed mucosa in the proximal rectum. Biopsied. Recommendation: - Discharge patient to home. - Resume previous diet. - Continue present medications. - Telephone my office for pathology results in 1 week. Combination of esophageal varices and significant hemorrhoidal disease might suggest hepatic etiology. Will defer to primary care. This would place the patient at higher risk for any type of surgical intervention regarding hemorrhoids. - Repeat colonoscopy in 5 years for surveillance. Procedure Code(s): --- Professional --- 32528, Colonoscopy, flexible; with biopsy, single or multiple Diagnosis Code(s): --- Professional --- K64.2, Third degree hemorrhoids K64.4, Residual hemorrhoidal skin tags D12.5, Benign neoplasm of sigmoid colon K62.89, Other specified diseases of anus and rectum K52.9, Noninfective gastroenteritis and colitis, unspecified D50.9, Iron deficiency anemia, unspecified K57.30, Diverticulosis of large intestine without perforation or abscess without bleeding CPT copyright 2017 [employer]. All rights reserved. The codes documented in this report are preliminary and upon pulp refiner operator review may be revised to meet current compliance requirements. Ben Garcia MD 02/22/2023 8:27:24 AM This report has been signed electronically. Number of Addenda: 0 Note Initiated On: 02/22/2023 7:48 AM
--- NOTE | 2023-02-22 08:29 | OP.CCLET_ITS ---
02/22/2023 Juan Locke [address] [place] [address] Re : Colonoscopy procedure for Barbara Ledesma Dear Dr. Locke This procedure was performed on Wednesday, February 22, 2023. My impressions and recommendations are as follows: Impressions : - Non-thrombosed external hemorrhoids, non-thrombosed internal hemorrhoids and internal hemorrhoids that prolapse with straining, but require manual replacement into the anal canal (Grade III) found on digital rectal exam. - Diverticulosis in the sigmoid colon and in the descending colon. - One 5 mm polyp in the proximal sigmoid colon, removed with a cold biopsy forceps. Resected and retrieved. - Inflamed mucosa in the proximal rectum. Biopsied. Recommendations : - Discharge patient to home. - Resume previous diet. - Continue present medications. - Telephone my office for pathology results in 1 week. Combination of esophageal varices and significant hemorrhoidal disease might suggest hepatic etiology. Will defer to primary care. This would place the patient at higher risk for any type of surgical intervention regarding hemorrhoids. - Repeat colonoscopy in 5 years for surveillance. My findings are described in the full procedure note, which is enclosed. If I can be of further assistance, please feel free to contact me at Doctor phone number(s): Work: . Sincerely, Ben Garcia MD 02/22/2023 8:27:24 AM This report has been signed electronically.
[2023-02-22 08:51] LABS: Bedside Glucose 165 mg/dL (74-106)
== END 2023-02-22 09:00 | disposition home or self-care (01) ==
LOC: EN 06:15 → AC 06:17
PROVIDERS: PCP Student in an Organized Health Care Education/Training Program; Referring Provider Student in an Organized Health Care Education/Training Program; Visit Provider Surgery
PROC: 0DJD8ZZ Inspection of Lower Intestinal Tract, Via Natural or Artificial Opening Endoscopic (ICD-10-PCS; CPT 45378; principal; 2023-02-22 07:25)
DX: Z12.11 Encounter for screening for malignant neoplasm of colon (principal); I85.00 Esophageal varices without bleeding; E11.9 Type 2 diabetes mellitus without complications; D50.9 Iron deficiency anemia, unspecified; K22.2 Esophageal obstruction; K64.2 Third degree hemorrhoids; K21.00 Gastro-esophageal reflux disease with esophagitis, without bleeding; K63.5 Polyp of colon; K64.4 Residual hemorrhoidal skin tags; K57.30 Diverticulosis of large intestine without perforation or abscess without bleeding; K44.9 Diaphragmatic hernia without obstruction or gangrene; G47.30 Sleep apnea, unspecified; I10 Essential (primary) hypertension; F32.A Depression, unspecified; K62.6 Ulcer of anus and rectum; K29.70 Gastritis, unspecified, without bleeding; Z79.82 Long term (current) use of aspirin; Z79.899 Other long term (current) drug therapy; Z79.84 Long term (current) use of oral hypoglycemic drugs; Z87.891 Personal history of nicotine dependence
CPT/HCPCS: 45380; 43239; 82962; 88305; 88313; 88342; J2405

== ENCOUNTER 2023-05-01 11:00 | Outpatient (RCR) | payer MEDICARE, SELFPAY ==
--- NOTE | 2023-03-05 12:20 | HP.PTEVAL ---
Patient's Visit Information JANETTE MENESES is a 68 year old F referred to Physical Therapy by Dr. Keyonna Valdivia MD with a diagnosis of MIXED URINARY INCONTINENCE. Date of Evaluation: 03/05/23 Physical Therapist: Huma Salter PT, Cert MDT - Visit Plan Frequency: 1x/Week Duration: 10-12 WKS Plan: *CHECK AUTH*. PF THERAPY FOR STRENGTHENING, LENGTHENING/RELAXATION AND ENDURANCE TRAINING. PELVIC FLOOR STRENGTHENING. URINARY RETENTION, URGE AND FREQUENCY EDUCATION. HEALTHY BLADDER HABIT EDUCATION. TRAINING IN COORDINATION OF PELVIC FLOOR MUSCULATURE WITH HIP AND CORE (TRANSVERSE ABDOMINUS) MUSCULATURE. POSTURE CORRECTION/STRENGTHENING. CORE STRENGTHENING. RAZ LE ROM, STRETCHING AND STRENGTHENING. TRAINING IN ABDOMINAL CAVITY PRESSURE MGMT WITH ADL'S. - Subjective Work/Leisure: RETIRED. Disability: NO. Present symptoms: FREQUENT URINATION, UI RELATED TO URGENCY, UI WITH ACTIVITY, PAIN IN LOWER ABDOMEN AND GENITAL AREA, DIFFICULTY EMPTYING BLADDER. PATIENT REPORTS IT STILL FEELS LIKE SHE HAS A UTI. Present since: AT LEAST 6 MONTHS. Pain Scale: WORST 8/10, LEAST 2/10. Currently: 2/10. Is it getting better, worse or staying the same: STAYING THE SAME. Commenced as a result of: NO APPARENT REASON OTHER THAN UTI TREATED WITH SEVERAL ROUNDS OF ANTIBIOTICS. Symptoms at onset: UTI. Worse: NOTHING AWARE OF. Better: NOTHING PATIENT IS AWARE OF. Disturbed sleep: YES - GETTING UP TO URINATE ABOUT 3 TIMES A NIGHT. Previous history/Previous treatment: H/O A LOT OF UTI'S AND BLADDER INFECTIONS UNTIL HYSTERECTOMY IN 1999. H/O ENDOMETRIOSIS. PAINFUL INCOURSE BEFORE AND AFTER HYSTERECTOMY. Treatment this episode: ANTIBIOTICS FOR UTI. LAST TEST A FEW WKS AGO AT URGENT CARE FOR UTI WAS NEGATIVE. STATES SHE SAW DR. VALDIVIA ABOUT 3-4 MONTHS AGO AND PT WAS ORDERED BUT HASN'T BEEN ABLE TO COME UNTIL NOW DUE TO FAMILY ISSUES. HAS HAD ABOUT [address] VALDIVIA. PATIENT REPORTS ALL OF HER TESTS HAVE BEEN INCONCLUSIVE. SHE REPORTS THE INTERNAL US WAS PAINFUL DURING THE TEST BUT NO INCREASED PAIN AFTERWARDS. Coughing/sneezing/straining: POSITIVE FOR URINARY LEAKING. PAD USE: NO. Gait: NORMAL. How long can you delay the need to urinate: ABOUT A MINUTE. Prolapse (Falling out feeling): NO. Frequency of Urination: ABOUT EVERY 2-3 HOURS. Ability to stop urine flow: SOMETIMES. Ability to initiate urine stream: YES. Dyspareunia: N/A. Bowel Incontinence: NO. Accidents: NO. Unexplained weight loss: NO. Imaging: NO - Objective Sitting/Standing Posture: POOR. FH. RSH'S. NORMAL LORDOSIS. NO RELEVANT LATERAL SHIFT. Other Observations: INDEP GAIT AND TRANSFERS. Sensory deficit: RAZ LE LIGHT TOUCH SENSATION GROSSLY INTACT AND SYMMETRICAL. ROM deficit: MILD RAZ LE HIP ADDUCTOR, HS AND GASTROC SOLEUS TIGHTNESS. Motor deficit: RAZ LE'S GROSSLY 5/5 WITH MMT'ING EXCEPT HIPS 4/5. Dural Signs: NEGATIVE RAZ LE'S. Lumbar mvmt loss: flex - NIL. ext - MIN. R SG - MOD. L SG - MOD. PATIENT DENIES PAIN WITH LUMBAR ROM TESTING. Core strength: POOR. Palpation: PATIENT IS GOING TO CONSIDER MANUAL PF INTERNAL TESTING/TREATMENT NEXT VISIT. FUNCTIONAL SCREEN: Incontinence Impact Questionnaire Score: 17. Urogenital Distress Inventory Score: 15 - Goals Goal 1:: DECREASE C/O PAIN IN LOWER ABDOMEN AND GENITAL AREA Goal Time Frame: 4-6 Weeks Goal 2:: DECREASE URINARY LEAKAGE EPISODES TO ONE OR LESS PER DAY Goal Time Frame: 8-12 Weeks Goal 3:: PATIENT WILL SUCCESSFULLY DELAY VOIDING FOR 10 MINUTES WHEN URGENCY OCCURS Goal Time Frame: 2-4 Weeks Goal 4:: DEVELOP HEALTHY FLUID INTAKE HABITS WITH FLUID INTAKE OF ? BODY WEIGHT IN OUNCES PER DAY AND 2/3 BEING WATER. Goal Time Frame: 2-4 Weeks Goal 5:: NORMALIZE VOIDING FREQUENCEY TO EVERY 3-4 HOURS. Goal Time Frame: 6-8 Weeks Goal 6:: PATIENT WILL BE INDEP WITH A [facility]/HOME INSTRUCTIONS FOR CONTINUED IMPROVEMENT ONCE FORMAL PHYSICAL THERAPY CONCLUDES Goal Time Frame: 8-12 Weeks - Anticipated Interventions Patient/Client Instruction: Educate patient on: Condition, Plan of Care, Risk Factors For the Purpose of:: To improve self management Therapeutic Exercise to Include: Strength training, Endurance training, Body mechanics, Flexibilty training, Neuromotor development For the Purpose of:: To increase ROM, To improve muscle performance and motor function, To increase tolerance to activity/condition/position, To improve ability of physical actions for home/community/work/leisure Manual Therapy Techniques to Include: Trigger point massage, Soft tissue mobilization Comment: PF IF PATIENT AGREEABLE - TEST/TREAT For the Purpose of:: To decrease pain, To improve nutrient delivery to tissue, To improve muscle performance and motor function Thank you for the opportunity to evaluate your patient. For Medicare and Medicare HMO plans, please review the plan of care and approve it. It will need to be FAXED BACK to us at [phone] for Medicare purposes. For Medicare only, by signing this I certify the plan of care. Please let me know if there are questions or concerns regarding this plan of care. Physician Signature: Date:
--- NOTE | 2023-05-01 12:14 | HP.PTREVAL_ITS ---
Re-Evaluation Intro: Dr. Keyonna Valdivia MD, It has been my pleasure to treat JANETTE MENESES over the last 7 visits for MIXED URINARY INCONTINENCE. Please see the progress note below for an update on the physical therapy plan of care! Subjective Subjective: PATIENT REPORTS SHE HAS BEEN MUCH BETTER SINCE LAST VISIT. DID HAVE SOME ANNOYING TYPE PAIN IN HER GENITAL AREA AND LOWER ABDOMEN THIS MORNING WALKING AROUND THE HOUSE FOR NO APPARENT REASON BUT NOT NEAR BAD BEFORE DOING PT. PATIENT REPORTS HEP IS GOING WELL. STATES SHE IS GOING TO WAIT A WEEK OR SO TO SEE IF HER PAIN COMES BACK BEFORE DECIDING FOR SURE TO GET A PELVIC WAND. PLANS TO FOLLOW UP WITH DR. VALDIVIA NEXT MONTH. Objective Objective/Function: PATIENT WAS SEEN TODAY FOR RE-ASSESSMENT OF PROGRESS TOWARD THE SET PT GOALS AND THE NEED FOR FURTHER PHYSICAL THERAPY VS READINESS FOR DISCHARGE. PATIENT HAS MADE GOOD PROGRESS WITH PT AND HAS BEEN INSTRUCTED ON USE OF PELVIC WAND FOR CONTINUED IMPROVEMENT. PF STRENGTH HAS IMPROVED TO 4/5 WITH 10 SEC ENDURANCE WITH TESTING TODAY. SHE IS REPORTING MUCH LESS PAIN AND APPEARS APPROPRIATE FOR DISCHARGE BUT WILL HOLD CHART FOR A FEW WKS. INSTRUCTED IN AND ADDED SUPINE RAZ LE DURAL STRETCHING TO HEP TODAY. PATIENT TOLERATED ALL TREATMENT AND TESTING WELL TODAY. FUNCTIONAL SCREEN: Incontinence Impact Questionnaire Score: 3. Urogenital Distress Inventory Score: 6 Plan Plan Plan: HOLD CHART X 3-4 WKS. Goals Goals Goal 1:: DECREASE C/O PAIN IN LOWER ABDOMEN AND GENITAL AREA Goal Time Frame: 4-6 Weeks Goal Progress: Goal Met Goal 2:: DECREASE URINARY LEAKAGE EPISODES TO ONE OR LESS PER DAY Goal Time Frame: 8-12 Weeks Goal Progress: Goal Met Goal 3:: PATIENT WILL SUCCESSFULLY DELAY VOIDING FOR 10 MINUTES WHEN URGENCY OCCURS Goal Time Frame: 2-4 Weeks Goal Progress: Goal Met Goal 4:: DEVELOP HEALTHY FLUID INTAKE HABITS WITH FLUID INTAKE OF ? BODY WEIGHT IN OUNCES PER DAY AND 2/3 BEING WATER. Goal Time Frame: 2-4 Weeks Goal Progress: Goal Met Goal 5:: NORMALIZE VOIDING FREQUENCEY TO EVERY 3-4 HOURS. Goal Time Frame: 6-8 Weeks Goal Progress: Goal Met Goal 6:: PATIENT WILL BE INDEP WITH A HEP/HOME INSTRUCTIONS FOR CONTINUED IMPROVEMENT ONCE FORMAL PHYSICAL THERAPY CONCLUDES Goal Time Frame: 8-12 Weeks Goal Progress: Goal Met Anticipated Interventions Anticipated Interventions Patient/Client Instruction: Educate patient on: Condition, Plan of Care and Risk Factors For the Purpose of:: To improve self management Therapeutic Exercise to Include: Strength training, Endurance training, Body mechanics, Flexibilty training and Neuromotor development For the Purpose of:: To increase ROM, To improve muscle performance and motor function, To increase tolerance to activity/condition/position and To improve ability of physical actions for home/community/work/leisure Manual Therapy Techniques to Include: Trigger point massage and Soft tissue mobilization Comment: PF IF PATIENT AGREEABLE - TEST/TREAT For the Purpose of:: To decrease pain, To improve nutrient delivery to tissue a nd To improve muscle performance and motor function Re-Evaluation Ending Re-evaluation ending: Please do not hesitate to contact me at [phone] by phone or if you have questions or concerns regarding this new plan of care! Sincerely, Huma Salter, PT, Cert MDT
--- NOTE | 2023-07-16 10:48 | HP.PT.NRP ---
Patient Information Patient Information: JANETTE MENESES was seen in my office for initial evaluation on 03/05/23. The following Plan of Care was established for this patient: POC Established Initial Frequency: 1x/Week Initial Duration: 10-12 WKS Anticipated Interventions Patient/Client Instruction: Educate patient on: Condition, Plan of Care and Risk Factors For the Purpose of:: To improve self management Therapeutic Exercise to Include: Strength training, Endurance training, Body mechanics, Flexibilty training and Neuromotor development For the Purpose of:: To increase ROM, To improve muscle performance and motor function, To increase tolerance to activity/condition/position and To improve ability of physical actions for home/community/work/leisure Manual Therapy Techniques to Include: Trigger point massage and Soft tissue mobilization Comment: PF IF PATIENT AGREEABLE - TEST/TREAT For the Purpose of:: To decrease pain, To improve nutrient delivery to tissue and To improve muscle performance and motor function Last Seen Last Seen: This patient was last seen in our office 05/01/23. Pertinent comments regarding their Physical therapy will appear below: This patient has not returned to Physical Therapy and is appropriate to return to MD for further follow-up as needed. At this point I will be discontinuing this patient from physical therapy. I would be happy to see this patient again in the future if found appropriate by the physician. Thank you! Huma Salter PT, Cert MDT
== END 2023-05-01 19:00 | disposition home or self-care (01) ==
LOC: PT 11:00
PROVIDERS: PCP Student in an Organized Health Care Education/Training Program; Referring Provider Urology; Visit Provider Urology
DX: N39.46 Mixed incontinence (principal)
CPT/HCPCS: 97140; 97162; 97164; 97530

== ENCOUNTER 2024-01-29 14:29 | Emergency (ER) | payer MEDICARE, SELFPAY ==
[2024-01-29 14:31] VITALS: BP 150/69; PULSE 114; RESP 18; TEMP 36.1; O2SAT 98; BMI 35.6
--- NOTE | 2024-01-29 14:35 | ED.VIS.GI ---
HPI HPI - GI History of Present Illness Chief Complaint: Abd Pain Informant: patient Abdominal Pain/Flank Pain Onset: Weeks (2) Context: Gradual Onset Timing: Continuous Quality: Aching and Stabbing Location: LLQ Worsened by: Food Relieved by: Nothing Nausea/Vomiting/Emesis GI Symptom: Positive for Nausea; Negative for Vomiting Diarrhea/Melena/Hematochezia GI Symptom: Negative for Diarrhea, Melena or Hematochezia Associated Symptoms Associated Symptoms: Negative for Dysuria, Frequency or Hematuria Narrative Narrative: Patient presents with abdominal pain that began 2 weeks ago. Patient states it began rather suddenly. Patient states it is constant aching but stabbing at times. Patient states it is worse after eating. Patient states she has been eating bland foods which she is able to tolerate more than fatty foods. Patient admits to some nausea but denies any vomiting. Patient denies any diarrhea, melena, or hematochezia. Patient denies any urinary complaints. [facility] Medical History Wears contact lenses Wears glasses Post-menopausal Anxiety Alcohol use Thyroid disease History of renal disease Anemia Back pain History of diverticulitis Gastric reflux Former smoker Sleep apnea Chronic cough S/p nephrectomy Depression Migraines HTN (hypertension) Diabetes Home Medications ?Medication ?Instructions ?Recorded ?Last Taken ?Type qmqrhbq-ligfflqnuwvoe-bvlauuej 250 1 ea PO PRN PRN Pain 11/06/17 Unknown History mg-250 mg-65 mg tablet bupropion HCl 150 mg tablet,12 hr 150 mg PO DAILY DEPRESSION 11/06/17 Unknown History sustained-release duloxetine 60 mg capsule,delayed 90 mg PO DAILY 11/06/17 Unknown History release ergocalciferol (vitamin D2) 1,250 50,000 unit PO Q7D 11/06/17 Unknown History mcg (50,000 unit) capsule losartan 50 mg tablet 50 mg PO DAILY BP 11/06/17 Unknown History omeprazole 20 mg capsule,delayed 20 mg PO PRN PRN Heartburn 11/06/17 Unknown History release Handicap Placard See Rx Instructions .Route 03/06/19 Unknown Rx .COMPLEX Osteoarthritis #1 unit albuterol sulfate 90 mcg/actuation 1 - 2 puff inhalation PRN PRN 02/20/23 Unknown History aerosol inhaler ALLERGIES dulaglutide 0.75 mg/0.5 mL 0.75 mg subcut QWEEK 10/10/23 Unknown History subcutaneous pen injector (Trulicity) amoxicillin 875 mg-potassium 875 mg PO Q12H #20 TABLETS 01/29/24 Unknown Rx clavulanate 125 mg tablet levothyroxine 125 mcg tablet 125 mcg PO DAILY disorder of 01/29/24 Unknown History (Synthroid) thyroid gland Allergy/AdvReac Type Severity Reaction Status Date / Time adhesive tape Allergy Rash Verified 01/29/24 14:31 Family History Father Colon cancer Brother Cancer bladder Surgical History History of esophagogastroduodenoscopy (EGD) S/P shoulder surgery S/P hysterectomy History of lobectomy of thyroid Social History Smoking Status: Former smoker alcohol intake: current alcohol intake frequency: holidays/special occasions only ROS ROS ED Constitutional Constitutional ED: Reports fever(s) and subjective; Denies chills Eyes Eyes: Denies blurry vision or change in vision ENT ENT ED: Denies rhinorrhea or sore throat Cardiovascular Cardiovascular: Denies chest pain or palpitations Respiratory/Chest Respiratory/Chest: Denies cough or dyspnea Gastrointestinal Gastrointestinal: Reports abdominal pain and nausea; Denies vomiting Genitourinary Genitourinary ED: Denies dysuria or hematuria Musculoskeletal Musculoskeletal: Denies back pain or neck pain Integumentary Denies abscess or rash Neurologic Neurologic: Denies headache(s) or weakness Allergic/Immunologic Allergic/Immunologic ED: Denies mouth swelling or urticaria EXAM Physical Exam Const Vital Signs: 01/29/24 14:31 01/29/24 16:30 Temperature 96.9 F L Temperature Source Temporal Pulse Rate 114 H 84 Respiratory Rate 18 16 Blood Pressure 150/69 H 144/75 H Blood Pressure Mean 96 98 Pulse Ox 98 98 Oxygen Delivery Method Room Air Room Air Positive well nourished and well developed General Appearance ED: well developed and NAD HEENT Reports moist mucous membranes Neck supple and no JVD Resp normal respiratory effort and clear to auscultation bilaterally Cardio regular rhythm Rate: tachycardic GI non-distended Palpation: soft and tender LLQ; Negative for guarding or rebound tenderness present Neuro CN's II-XII intact bilaterally, moves all extremities and no sensory deficits noted Sensorium / Orientation: alert Motor Exam: strength 5/5 throughout Psych mental status grossly normal MDM MDM MDM Narrative Medical decision making narrative: Differential diagnosis includes diverticulitis, ureteral calculus, urinary tract infection, pyelonephritis, gastroenteritis, cholecystitis, cholelithiasis, pancreatitis, and viral illness. CT scan of the abdomen pelvis will be obtained to assess for diverticulitis, ureteral calculus, bowel obstruction, and perforation. CBC will be obtained to assess for leukocytosis and anemia. Comprehensive metabolic profile will be obtained to assess for hepatic function, renal function, and electrolyte abnormality. Lipase will be obtained to assess for pancreatitis. Urinalysis will be obtained to assess for urinary tract infection and hematuria. Lab Data Attestation: I reviewed the patient's lab results. Lab results narrative: CBC was reviewed. White blood cell count was slightly low at 3.3. Hemoglobin was low at 7.3 and hematocrit is 26.1. Platelets were slightly low at 116. Comprehensive metabolic profile was reviewed. Potassium was slightly low at 3.2. The remainder was essentially within normal limits. Lipase was normal at 36. Urinalysis was reviewed. There is no evidence of urinary tract infection or hematuria. Labs: Laboratory Results - last 24 hr 01/29/24 01/29/24 15:00 16:11 WBC 3.3 L RBC 3.21 L Hgb 7.3 L Hct 26.1 L MCV 81.3 MCH 22.7 L MCHC 28.0 L RDW Std Deviation 70.9 H RDW Coeff of Cornelio 23.9 H Plt Count 116 L MPV 9.9 Immature Gran % (Auto) 1.200 H Neut % (Auto) 66.2 Lymph % (Auto) 18.7 L [place] % (Auto) 8.5 Eos % (Auto) 4.8 Baso % (Auto) 0.6 Absolute Neuts (auto) 2.2 Absolute Lymphs (auto) 0.62 L Nucleated RBC % 0 Differential Comment SCANNED Sodium 139 Potassium 3.2 L Chloride 110 H Carbon Dioxide 24.0 Anion Gap 5 BUN 6 L Creatinine 0.68 Estim Creat Clear Calc 73.93 Est GFR (MDRD) Af Amer 109 Est GFR (MDRD) Non-Af 90 BUN/Creatinine Ratio 8.8 L Glucose 154 H Calcium 9.0 Total Bilirubin 0.70 AST 19 ALT 15 Alkaline Phosphatase 106 Total Protein 6.0 L Albumin 3.0 L Globulin 3.0 Albumin/Globulin Ratio 1.0 Lipase 36 Urine Color Yellow Urine Clarity Clear Urine pH 7.0 Ur Specific [place] 1.005 Urine Protein Negative Urine Glucose (UA) Normal Urine Ketones Negative Urine Occult Blood Negative Urine Nitrite Negative Urine Bilirubin Negative Urine Urobilinogen Normal Ur Leukocyte Esterase 500 H Urine RBC 0 SEEN Urine WBC 0-5 SEEN Ur Squamous Epith Cells 0-5 SEEN Urine Bacteria 0 SEEN Urine Mucus 0 SEEN Radiography Diagnostic Testing: Clinical Impression(s) from Imaging Studies Abdomen/Pelvis CT 01/29/24 14:50 IMPRESSION: Findings suspicious for infectious versus inflammatory enterocolitis. Cirrhotic liver with evidence of portal hypertension including esophageal varices, moderate volume ascites and splenomegaly. Moderate left pleural effusion. Electronically Signed: Perry Lassiter MD at 17:18 EDT , CT scan of the abdomen pelvis was obtained. There are findings suspicious for infectious versus inflammatory enterocolitis. There is cirrhotic liver noted. There is portal hypertension noted. There is ascites noted. This was interpreted by the radiologist and was also independently reviewed by myself. Treatment and Re-Evaluation :: Patient was given IV fluids, morphine, and Zofran. Patient is feeling better on reevaluation. Patient was advised of her findings. Patient states she follows with Dr. Novak for her anemia. Patient states that she gets iron infusions for this. Patient states this is not a new finding for her. Patient was given prescription for Augmentin. Patient was given her first dose here. Patient was instructed to follow-up with her primary care physician in 5 to 7 days. Patient was instructed to avoid alcohol while taking Flagyl. Patient understood and was agreeable with the plan. All questions were answered. Discharge Plan Triage Chief Complaint: Abd Pain ED Provider: Kwasi Brody Dx/Rx/DC Orders Clinical Impression: Enterocolitis, Iron deficiency anemia Instructions: ED Understanding Colitis Prescriptions: New amoxicillin-pot clavulanate 875-125 mg tablet 875 mg PO Q12H Qty: 20 0RF No Action Handicap Placard See Rx Instructions .ROUTE .COMPLEX Qty: 1 0RF Rx Instructions: 12weeks Trulicity 0.75 mg/0.5 mL pen injector 0.75 mg subcut QWEEK losartan 50 MG tablet 50 mg PO DAILY bupropion HCl 150 MG tablet sustained-release 12 hr 150 mg PO DAILY ergocalciferol (vitamin D2) 50,000 UNIT capsule 50,000 unit PO Q7D duloxetine 60 MG capsule,delayed release(DR/EC) 90 mg PO DAILY vmeqwac-cxkypyqtmqkar-gtuxeohj 1 EACH tablet 1 ea PO PRN PRN (Reason: Pain) omeprazole 20 MG capsule 20 mg PO PRN PRN (Reason: Heartburn) albuterol sulfate 90 mcg/actuation HFA aerosol inhaler 1 - 2 puff INHALATION PRN PRN (Reason: ALLERGIES) levothyroxine [Synthroid] 125 mcg tablet 125 mcg PO DAILY Primary Care Provider: Juan Locke Referrals: Juan Locke DO [Primary Care Provider] - Print Language: Bulgarian Disposition Disposition: Home, Self Care
--- NOTE | 2024-01-29 14:50 | CT_ITS ---
INDICATION: Abdominal pain-LLQ EXAMINATION: CT Abdomen And Pelvis W/ Contrast Injection TECHNIQUE: Helically acquired images were obtained of the abdomen and pelvis after IV contrast. A radiation dose optimization technique was used for this scan. IV Contrast dosage and agent: IV 100mL Isovue-300 Oral contrast: None. COMPARISON: None. FINDINGS: Visualized lung bases: Moderate left pleural effusion. Liver: Liver is cirrhotic. Gallbladder: Unremarkable Spleen: The spleen is mildly enlarged. Pancreas: Unremarkable Adrenal Glands: Unremarkable Kidneys: Few punctate nonobstructing stones in the left kidney. The right kidney is absent. Vasculature: Mild scattered aortoiliac atherosclerotic calcifications. There are esophageal varices. GI Tract: Scattered colonic diverticula. There is long segment circumferential bowel wall thickening of nearly the entire colon with surrounding mesenteric fat stranding. Lymphadenopathy: None Peritoneum: Moderate volume ascites. Bladder: Unremarkable Reproductive organs: Unremarkable Bones/Soft tissues: There are diffuse degenerative changes of the spine. There is a right-sided spigelian hernia containing fat and ascitic fluid. CT/Abdomen/Pelvis W IV Cont ONLY IMPRESSION: Findings suspicious for infectious versus inflammatory enterocolitis. Cirrhotic liver with evidence of portal hypertension including esophageal varices, moderate volume ascites and splenomegaly. Moderate left pleural effusion. Electronically Signed: Perry Lassiter MD at 17:18 EDT ,
[2024-01-29] MEDS: 0.9% Normal Saline (1000mL) 1,000 ML 999 ML IV (15:08)
[2024-01-29 15:13] LABS: Absolute Lymphocyte Count 0.62 X10^3/uL (0.83-4.51); Absolute Neutrophil Count 2.2 X10^3/uL (2.0-7.7); Basophil# 0.02 X10^3/uL; Basophil% 0.6 % (0-1); Eosinophil# 0.16 X10^3/uL; Eosinophils% 4.8 % (0-5); Hematocrit 26.1 % (37-47); Hemoglobin 7.3 g/dL (12.0-15.0); Lymphocyte # 0.62 X10^3/ul (0.83-4.51); Lymphocyte % 18.7 % (19-41); Mean Corpuscular Hgb 22.7 pg (27.0-32.0); Mean Corpuscular Volume 81.3 fL (81-99); Mean Platelet Vol. 9.9 fl (6.2-12.0); Monocyte# 0.28 X10^3/uL; Monocyte% 8.5 % (0-10); NRBC Flagged by Analyzer 0 % (0-5); Neutrophil # 2.19 X10^3/uL (2.7-7.7); Neutrophil % 66.2 % (47-70); POSITIVE MORPHOLOGY YES; Platelet Count 116 K/mm3 (150-450); RBC Distribution Width CV 23.9 % (11.6-14.6); RBC Distribution Width SD 70.9 fl (35.1-43.9); Red Blood Count 3.21 M/mm3 (4.2-5.4); White Blood Count 3.3 K/mm3 (4.4-11.0)
[2024-01-29 15:23] LABS: Differential Indicated SCAN CRITERIA MET
[2024-01-29 15:38] LABS: AST(SGOT) 19 U/L (15-37); Alanine Aminotransfer ALT/SGPT 15 U/L (13-56); Alkaline Phosphatase 106 U/L (45-117); Anion Gap 5 (5-15); BUN 6 mg/dL (7-18); BUN/Creat Ratio 8.8 RATIO (10-20); Chloride 110 mmol/L (98-107); Creatinine, Serum 0.68 mg/dL (0.55-1.02); EST Glomerular Filtration Rate 90 mL/min (>60); Est Glom Filt Rate - Afr Amer 109 mL/min (>60); Estimated Creatinine Clearance 73.93 ml/min; Glucose 154 mg/dL (74-106); Lipase 36 U/L (13-75); Potassium 3.2 mmol/L (3.5-5.1); Sodium Level 139 mmol/L (136-145)
[2024-01-29 16:02] LABS: Differential Comment SCANNED
[2024-01-29 16:21] LABS: Bacteria 0 SEEN /hpf (None Seen); Mucous, Urine 0 SEEN /hpf (<or=2+); Red Blood Cells-Urine 0 SEEN /hpf (0-5)
[2024-01-29 16:30] VITALS: BP 144/75; PULSE 84; RESP 16; O2SAT 98
[2024-01-29 16:34] LABS: Color, Urine Yellow (Yellow); Glucose, Dipstick Normal (Normal); Ketone-Dipstick Negative (Negative); Leukocyte Esterase-Dipstick 500 /ul (Negative); Nitrite-Dipstick Negative (Negative); Occult Blood-Urine Negative /ul (Negative); Protein-Dipstick Negative (Negative); Specific Gravity, Urine 1.005 (1.002-1.030); Urine Bilirubin Dipstick Negative (Negative); Urine Clarity Clear (Clear); Urine Urobilinogen Normal (Normal)
[2024-01-29 17:03] LABS: Squamous Epithelial Cells - UA 0-5 SEEN /hpf (5-10); White Blood Cells 0-5 SEEN /hpf (0-5)
[2024-01-29 18:00] VITALS: BP 141/72; PULSE 84; RESP 18; O2SAT 98
[2024-01-29] MEDS: Amox/Clavulanate 875 MG Tablet PO (18:23)
[2024-01-29 18:29] VITALS: BP 141/72; PULSE 84; RESP 18; TEMP 36.2; O2SAT 98
== END 2024-01-29 18:30 | disposition home or self-care (01) ==
PROVIDERS: Emergency Provider Emergency Medicine; PCP Student in an Organized Health Care Education/Training Program; Visit Provider Emergency Medicine
DX: K52.9 Noninfective gastroenteritis and colitis, unspecified (principal); D50.9 Iron deficiency anemia, unspecified; Z87.891 Personal history of nicotine dependence; I10 Essential (primary) hypertension; Z90.5 Acquired absence of kidney; Z79.82 Long term (current) use of aspirin; F32.A Depression, unspecified; F41.9 Anxiety disorder, unspecified; K21.9 Gastro-esophageal reflux disease without esophagitis; Z79.85 Long-term (current) use of injectable non-insulin antidiabetic drugs; Z79.899 Other long term (current) drug therapy; Z90.710 Acquired absence of both cervix and uterus
CPT/HCPCS: 74177; 80053; 81001; 83690; 85025; 96360; 99282; Q9967

== ENCOUNTER → 2024-02-17 | Outpatient (CLI) | payer MEDICARE, SELFPAY ==
[2024-02-17 16:58] LABS: International Normalized Ratio 1.3; Prothrombin Time (Protime)PT. 15.8 SECONDS (11.7-14.9)
[2024-02-17 17:03] LABS: Erythrocyte Sedimentation Rate 1 mm/hr (0-30); Hemoglobin A1c 5.7 % (3.8-5.6)
[2024-02-17 17:22] LABS: ALB/GLOB Ratio 1.1 RATIO (0.9-2.4); AST(SGOT) 27 U/L (15-37); Alanine Aminotransfer ALT/SGPT 20 U/L (13-56); Albumin, Serum 3.1 g/dL (3.2-5.0); Alkaline Phosphatase 132 U/L (45-117); Anion Gap 8 (5-15); BUN 10 mg/dL (7-18); BUN/Creat Ratio 11.9 RATIO (10-20); CRP < 2.90 mg/L (0.0-3.0); Calcium,Total 9.2 mg/dL (8.5-10.1); Chloride 114 mmol/L (98-107); Creatinine, Serum 0.84 mg/dL (0.55-1.02); EST Glomerular Filtration Rate 71 mL/min (>60); Est Glom Filt Rate - Afr Amer 86 mL/min (>60); Ferritin 14 ng/mL (8-252); Globulin 2.8 g/dL (2.2-4.2); Glucose 158 mg/dL (74-106); Iron Binding Capacity,Total 336 ug/dL (250-450); Potassium 3.3 mmol/L (3.5-5.1); Protein, Total 5.9 g/dL (6.4-8.2); Sodium Level 141 mmol/L (136-145)
[2024-02-17 17:29] LABS: HIV - WCH Non-Reactive (Nonreactive)
[2024-02-19 14:11] LABS: Anti-Mitochondrial AB <20.0 Units (0.0-20.0)
[2024-02-21 00:09] LABS: AFP, Tumor Marker < 1.8 ng/mL (0.0-9.2); Albumin 3.4 g/dL (2.9-4.4); Alpha-1-Globulins 0.3 g/dL (0.0-0.4); Alpha-2-Globulins 0.5 g/dL (0.4-1.0); Anti-Smooth Muscle ABS 4 Units (0-19); Ceruloplasmin 26.9 mg/dL (19.0-39.0); Copper, Serum or Plasma 113 ug/dL (80-158); Cytoplasmic Ab (C-ANCA) <1:20 titer (Neg:<1:20); Endomysial Antibody IgA Negative (Negative); Gamma Globulin 0.6 g/dL (0.4-1.8); HEPATITIS B SURFACE AG Negative (Negative); Hep C Antibodies Non Reactive (Non Reactive); Hepatitis A IgM Antibody Negative (Negative); Hepatitis B Core AB IgM Negative (Negative); IMMUNOFIXATION RESULT,S Comment: (.); Immunoglobulin A 169 mg/dL (87-352); Immunoglobulin G 664 mg/dL (586-1602); Immunoglobulin M 47 mg/dL (26-217); PROEL- TOTAL PROTEIN 5.5 g/dL (6.0-8.5); Perinuclear Ab (P-ANCA) <1:20 titer (Neg:<1:20); Transferrin 264 mg/dL (192-364); t-Transglutaminase IgA <2 U/mL (0-3)
== END | disposition home or self-care (01) ==
LOC: LAB 15:33
PROVIDERS: PCP Student in an Organized Health Care Education/Training Program; Referring Provider Internal Medicine Gastroenterology; Visit Provider Internal Medicine Gastroenterology
DX: K74.60 Unspecified cirrhosis of liver (principal); D61.818 Other pancytopenia; E11.9 Type 2 diabetes mellitus without complications; R18.8 Other ascites; R63.4 Abnormal weight loss; D50.9 Iron deficiency anemia, unspecified
CPT/HCPCS: 36415; 80053; 80074; 82105; 82140; 82390; 82525; 82728; 82784; 83036; 83516; 83550; 84165; 84466; 85610; 85652; 86140; 86255; 86256; 86334; 86703

== ENCOUNTER 2024-02-19 08:23 | Outpatient (CLI) | payer MEDICARE, SELFPAY ==
[2024-02-19] VITALS (7 sets, daily range): BP systolic 104–136; BP diastolic 57–78; PULSE 61–104; RESP 14–16; TEMP 36.4–36.8; O2SAT 96–97; BMI 35.3
== END 2024-02-19 23:59 | disposition home or self-care (01) ==
PROVIDERS: PCP Student in an Organized Health Care Education/Training Program; Referring Provider Internal Medicine Hematology & Oncology; Visit Provider Internal Medicine Hematology & Oncology
DX: D50.8 Other iron deficiency anemias (principal)
CPT/HCPCS: 36430; 86850; 86900; 86901; 86920; 86922; J7040; P9016; A4216

== ENCOUNTER 2024-02-27 16:03 | Inpatient (IN) | payer MEDICARE, SELFPAY ==
[2024-02-27] VITALS (7 sets, daily range): BP systolic 114–158; BP diastolic 61–81; PULSE 95–118; RESP 17–20; TEMP 36.4–36.7; O2SAT 95–98; BMI 35.3; BMI 36.8
--- NOTE | 2024-02-27 16:20 | EKG12_ITS ---
Test Reason : Blood Pressure : / mmHG Vent. Rate : 105 BPM Atrial Rate : 105 BPM P-R Int : 192 ms QRS Dur : 070 ms QT Int : 360 ms P-R-T Axes : 039 013 072 degrees QTc Int : 475 ms Sinus tachycardia Nonspecific T wave abnormality Abnormal ECG Confirmed by LAUREL WILKINSON MD ([id number]), editorial intern JUAN DAVID JOSEPH ([id number]) on 03/02/2024 11:29:29 AM Referred By: Confirmed By:LAUREL WILKINSON MD
--- NOTE | 2024-02-27 16:32 | ED.VIS.CHEST ---
HPI History of Present Illness Chief Complaint: Chest Pain Informant: patient Onset/Context/Timing Onset: Weeks Activity at onset: gradual Timing: Intermittent Quality: Positive for Pain, Sharp and Tightness Location: Right Parasternal and Left Parasternal Current Severity: Mild Maximum Severity: Mild Worsened By: Exertion and Breathing Relieved By: Nothing Associated Symptoms: Positive for Dyspnea; Negative for Nausea, Vomiting, Diaphoresis, Cough, Fever, Lightheadedness, Acid Reflux or Palpitations Narrative Narrative: 69-year-old female history of cirrhosis and diabetes. Has been having chest pain across her chest last 2 weeks worse with deep breathing. No history of DVT or PE or risk factors. No history of cancer. Denies any hemoptysis. No leg pain or swelling. No recent travel or surgery or hospitalization. Prior Similar Symptoms: No Recent Illness/Hospitalization: No CVD Risk Factors: Positive for Diabetes; Negative for Hypertension, Family History 1' </=55 or Smoking PE Risk Factors: Negative for Recent Travel/Surgery, Recent Immobilization, Prior DVT or PE, Cancer or OCP + Smoking + >/=35 TAD Risk Factors: Negative for Marfan's Syndrome [facility] Medical History Wears contact lenses Wears glasses Post-menopausal Anxiety Alcohol use Thyroid disease History of renal disease Anemia Back pain History of diverticulitis Gastric reflux Former smoker Sleep apnea Chronic cough S/p nephrectomy Depression Migraines HTN (hypertension) Diabetes Home Medications ?Medication ?Instructions ?Recorded ?Last Taken ?Type duloxetine 60 mg capsule,delayed 90 mg PO DAILY 11/06/17 Unknown History release ergocalciferol (vitamin D2) 1,250 50,000 unit PO Q7D 11/06/17 Unknown History mcg (50,000 unit) capsule losartan 50 mg tablet 50 mg PO DAILY BP 11/06/17 Unknown History Handicap Placard See Rx Instructions .Route 03/06/19 Unknown Rx .COMPLEX Osteoarthritis #1 unit albuterol sulfate 90 mcg/actuation 1 - 2 puff inhalation PRN PRN 02/20/23 Unknown History aerosol inhaler ALLERGIES dulaglutide 0.75 mg/0.5 mL 0.75 mg subcut QWEEK 10/10/23 Unknown History subcutaneous pen injector (Trulicity) ascorbic acid (vitamin C) 500 mg 500 mg PO DAILY 02/13/24 Unknown History tablet cholecalciferol (vitamin D3) 25 25 mcg PO DAILY 02/13/24 Unknown History mcg (1,000 unit) capsule cyanocobalamin (vitamin B-12) 1,000 mcg PO DAILY 02/13/24 Unknown History 1,000 mcg capsule omeprazole 20 mg capsule,delayed 20 mg PO DAILY Heartburn 02/17/24 Unknown History release levothyroxine 125 mcg tablet 125 mcg PO DAILY disorder of 02/27/24 Unknown History (Synthroid) thyroid gland Allergy/AdvReac Type Severity Reaction Status Date / Time adhesive tape Allergy Rash Verified 02/27/24 16:06 Family History Father Colon cancer Brother Cancer bladder Surgical History History of esophagogastroduodenoscopy (EGD) S/P shoulder surgery S/P hysterectomy History of lobectomy of thyroid Social History Smoking Status: Former smoker alcohol intake: current alcohol intake frequency: holidays/special occasions only ROS ROS ED ROS Narrative Pleuritic chest pain. Also exertional dyspnea. No leg pain or swelling. Review of Systems ROS Unobtainable: Denies due to encephalopathy Constitutional Constitutional ED: Denies chills or fever(s) Eyes Eyes: Reports none ENT ENT ED: Denies ear pain Cardiovascular Cardiovascular: Reports chest pain; Denies palpitations or racing heartbeat Respiratory/Chest Respiratory/Chest: Reports dyspnea and dyspnea on exertion; Denies cough Gastrointestinal Gastrointestinal: Denies abdominal pain, constipation, diarrhea, melena, nausea or vomiting Genitourinary Genitourinary ED: Denies dysuria or hematuria Musculoskeletal Musculoskeletal: Denies arthralgias Integumentary Denies abscess Neurologic Neurologic: Denies headache(s) Psychiatric Psychiatric: Denies anxiety or depression Endocrine Endocrinology: Denies cold intolerance, heat intolerance, polydipsia, polyphagia or polyuria Hematologic/Lymphatic Hematologic/Lymphatic: Denies easy bleeding or easy bruising Allergic/Immunologic Allergic/Immunologic ED: Denies mouth swelling, tongue swelling or urticaria EXAM Physical Exam Narrative Exam Narrative: 6-year-old female no acute distress vital signs are stable she is tachycardic. Pulse ox 96% on room air no signs of hypoxia. H EENT exam unremarkable. Neck nontender no lymphadenopathy. Lungs clear to auscultation bilaterally. Heart tachycardic rate of 108 no murmur. Chest wall nontender. No ecchymosis or bruising. No rash. Abdomen soft nontender. Normal bowel sounds no peritoneal signs. 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 Dorsi and plantarflexion intact. Calves are nontender without edema or cords. Back nontender. Neurologically she is awake alert no focal motor deficits. Const Vital Signs: 02/27/24 16:04 02/27/24 16:21 02/27/24 16:22 Temperature 97.6 F L Temperature Source Oral Pulse Rate 118 H Respiratory Rate 17 Respiratory Effort Normal Non-Labored Blood Pressure 158/66 H Blood Pressure Mean 96 Pulse Ox 96 Oxygen Delivery Method Room Air Room Air 02/27/24 17:02 02/27/24 18:00 Temperature Temperature Source Pulse Rate 101 H 101 H Respiratory Rate 19 H 20 H Respiratory Effort Blood Pressure 114/61 114/68 Blood Pressure Mean 78 83 Pulse Ox 96 96 Oxygen Delivery Method Room Air Positive well nourished and well developed; Negative for cachectic, contractures or unkempt General Appearance ED: well developed and NAD; Negative for unkempt, cachectic, contractures or pallor Nutritional Appearance: Negative for cachectic HEENT Reports moist mucous membranes; Denies dry mucous membranes normocephalic and atraumatic; Negative for trauma or tenderness Mouth ED: No dry mucous membranes Mouth: No dry mucous membranes Eyes PERRL and EOMs intact bilaterally General Eye ED: Negative for pale conjunctiva, scleral icterus or other Neck no lymphadenopathy, supple and no JVD General: Negative for tenderness Chest Wall inspection of chest normal and palpation of chest normal Chest: Negative for tenderness Resp normal respiratory effort and clear to auscultation bilaterally Effort and Inspection: Negative for respiratory distress Auscultation: Negative for rales, rhonchi, wheezes or diminished lung sounds Cardio regular rhythm, S1 normal heart sound, S2 normal heart sound and no murmurs; Negative for regular rate Rate: tachycardic Rhythm: Negative for abnormal rhythm Peripheral Pulses: pulses 2+ throughout GI normal to inspection, nondistended, normoactive bowel sounds, soft to palpation, non-tender, non-distended and no masses Back/Spine no CVA tenderness and no thoracic nor lumbar tenderness General Back: Negative for CVA tenderness Cervical Spine: Negative for cervical spine tenderness Extremity General Extremety ED: Negative for edema, pulses abnormal or tenderness General Extremity: Negative for edema or pulses abnormal Neuro oriented x3 and CN's II-XII intact bilaterally Sensorium / Orientation: awake, alert, oriented to person, oriented to place and oriented to time; Negative for confused, lethargic or stuporous Motor Exam: strength 5/5 throughout; Negative for general weakness or strength abnormal Psych mental status grossly normal Appearance: Negative for unkempt Attitude: No agitated Mood & Affect: Negative for depressed, anxious or tearful Skin no rashes or lesions noted and no wounds General Skin Exam: Negative for jaundice or pallor Rashes: No rashes noted Trauma: Negative for abrasion, laceration or puncture Heart Score History: Moderately Suspicious ECG: Normal (Sinus tachycardia.) Age: >/= 65 years Risk Factors: 1 or 2 Risk Factors Score: 4 MDM MDM MDM Narrative Medical decision making narrative: 69-year-old female nonreproducible chest pain across her chest for the last 2 weeks. Intermittent. Worse with breathing. No DVT or PE history or risk factors. No family history of clots. No recent travel surgery mobilization. I do think it is in the differential as is cardiac disease due to her recent exertional dyspnea. Cardiac workup with a D-dimer will be obtained. Repeat exam unchanged at 5:12 PM. I wanted to tell the patient about her labs and that she would be obtaining a CTA of her chest and most likely is going to need to be admitted. Repeat exam unchanged at 6:12 PM. Patient I discussed all of her test results and CAT scan results. Of the hospitalist on page for admission. History & Record Review Discussion w/independent historian: Patient Additional record(s) reviewed:: Prior inpatient record, Prior outpatient record, Prior ED visit and Prior labs Lab Data Attestation: I reviewed the patient's lab results. Lab results narrative: CBC shows white count 4.1 hemoglobin 6.8 previously was low but this is the lowest that is seen on prior labs. Medically 23. Platelets are also low at 104. D-dimer is elevated 2.98. CTA will be obtained. Troponin is normal at 4. Electrolytes show a gap of 6. Normal BUN of 8 and creatinine 0.9. Glucose 183. Chest x-ray shows enlarged heart with Moderate left pleural effusion. CTA chest shows no PE. Normal-sized heart. Moderate to large left pleural effusion. Read by the radiologist. Reviewed by me. Labs: Laboratory Results - last 24 hr 02/27/24 16:36 WBC 4.1 L RBC 2.89 L Hgb 6.8 L Hct 23.9 L MCV 82.7 MCH 23.5 L MCHC 28.5 L RDW Std Deviation 63.7 H RDW Coeff of Cornelio 21.7 H Plt Count 104 L MPV 11.2 Immature Gran % (Auto) 0.200 Neut % (Auto) 69.5 Lymph % (Auto) 17.1 L [place] % (Auto) 9.3 Eos % (Auto) 3.2 Baso % (Auto) 0.7 Absolute Neuts (auto) 2.9 Absolute Lymphs (auto) 0.70 L Nucleated RBC % 0 Differential Comment D-Dimer Quant (PE/DVT) 2.98 H* Sodium 139 Potassium 3.6 Chloride 112 H Carbon Dioxide 21.0 Anion Gap 6 BUN 8 Creatinine 0.93 Estim Creat Clear Calc 62.38 Est GFR (MDRD) Af Amer 77 Est GFR (MDRD) Non-Af 64 BUN/Creatinine Ratio 8.6 L Glucose 183 H Calcium 8.7 Troponin I High Sens 4 Radiography Chest X-Ray - ED: 1 View, Read by ED Physician, Read by Radiologist, Cardiomegaly and Left Effusion Diagnostic Testing: Clinical Impression(s) from Imaging Studies Chest X-Ray 02/27/24 16:38 IMPRESSION: Large left pleural effusion with consolidation of the left lower lobe and lingula. Electronically Signed: Jorge Romano MD at 17:07 EDT Reading Location ID and State: [facility] / [place] Tel [phone], Service support , Chest CTA 02/27/24 17:07 IMPRESSION: Large left pleural effusion with consolidation of both left lower and upper lobes.. No evidence for pulmonary embolus Electronically Signed: Jorge Romano MD at 18:08 EDT , Chest x-ray, portable, single view interpreted both by myself and radiologist. She has not an enlarged heart with a moderate size left pleural effusion. CTA is pending. Rhythm Strip Rhythm Strip: Sinus Tach Rate: 105 Ectopy: None EKG Initial EKG: Attestation: I personally reviewed and interpreted this EKG as follows: Interpretation: No Acute Injury Pattern and Sinus Tachycardia Comments: Sinus tachycardia rate of 105 no acute signs of AL or ischemia. No ST elevation or depression. Discharge Plan Triage Chief Complaint: Chest Pain ED Provider: Ozzy Palafox Dx/Rx/DC Orders Clinical Impression: Chest pain, Exertional dyspnea, Pleural effusion on left, Anemia, History of cirrhosis, History of diabetes mellitus Prescriptions: No Action Handicap Placard See Rx Instructions .ROUTE .COMPLEX Qty: 1 0RF Rx Instructions: 12weeks Trulicity 0.75 mg/0.5 mL pen injector 0.75 mg subcut QWEEK ascorbic acid (vitamin C) 500 mg tablet 500 mg PO DAILY cholecalciferol (vitamin D3) 25 mcg (1,000 unit) capsule 25 mcg PO DAILY cyanocobalamin (vitamin B-12) 1,000 mcg capsule 1,000 mcg PO DAILY losartan 50 MG tablet 50 mg PO DAILY ergocalciferol (vitamin D2) 50,000 UNIT capsule 50,000 unit PO Q7D duloxetine 60 MG capsule,delayed release(DR/EC) 90 mg PO DAILY omeprazole 20 mg capsule,delayed release(DR/EC) 20 mg PO DAILY albuterol sulfate 90 mcg/actuation HFA aerosol inhaler 1 - 2 puff INHALATION PRN PRN (Reason: ALLERGIES) levothyroxine [Synthroid] 125 mcg tablet 125 mcg PO DAILY Primary Care Provider: Juan Locke Referrals: Juan Locke DO [Primary Care Provider] - Print Language: Cuban Disposition Disposition: Acute Care Hospital [facility]
--- NOTE | 2024-02-27 16:38 | RAD_ITS ---
STUDY: X-RAY CHEST REASON FOR EXAM: Female, 69 years old. chest pain TECHNIQUE: AP portable COMPARISON: None. FINDINGS: There is a large left pleural effusion with consolidation of the left lower lobe and lingula.. Heart is enlarged. Normal mediastinum and yuly. Normal visualized pulmonary arteries. Normal visualized aortic arch and descending thoracic aorta. Dorsal spine demonstrates mild spondylosis. Normal visualized ribs, clavicles, and shoulders. There is no demonstrated abnormality of the visualized soft tissue structures of the upper abdomen. RAD/Chest 1 View (Portable) IMPRESSION: Large left pleural effusion with consolidation of the left lower lobe and lingula. Electronically Signed: Jorge Romano MD at 17:07 EDT ,
[2024-02-27 16:46] LABS: Absolute Neutrophil Count 2.9 X10^3/uL (2.0-7.7); Basophil# 0.03 X10^3/uL; Basophil% 0.7 % (0-1); Eosinophil# 0.13 X10^3/uL; Eosinophils% 3.2 % (0-5); Hematocrit 23.9 % (37-47); Hemoglobin 6.8 g/dL (12.0-15.0); Lymphocyte % 17.1 % (19-41); Mean Corp Hgb Conc 28.5 g/dL (32-36); Mean Corpuscular Hgb 23.5 pg (27.0-32.0); Mean Corpuscular Volume 82.7 fL (81-99); Mean Platelet Vol. 11.2 fl (6.2-12.0); Monocyte# 0.38 X10^3/uL; Monocyte% 9.3 % (0-10); NRBC Flagged by Analyzer 0 % (0-5); Neutrophil # 2.85 X10^3/uL (2.7-7.7); Neutrophil % 69.5 % (47-70); POSITIVE MORPHOLOGY YES; Platelet Count 104 K/mm3 (150-450); RBC Distribution Width CV 21.7 % (11.6-14.6); RBC Distribution Width SD 63.7 fl (35.1-43.9); Red Blood Count 2.89 M/mm3 (4.2-5.4); White Blood Count 4.1 K/mm3 (4.4-11.0)
[2024-02-27 16:49] LABS: Differential Indicated SCAN CRITERIA MET
[2024-02-27 16:59] LABS: D-Dimer Quantitative (DVT/PE) 2.98 FEU/ug/m (0.27-0.49)
[2024-02-27 17:05] LABS: Anion Gap 6 (5-15); BUN 8 mg/dL (7-18); BUN/Creat Ratio 8.6 RATIO (10-20); Calcium,Total 8.7 mg/dL (8.5-10.1); Chloride 112 mmol/L (98-107); Creatinine, Serum 0.93 mg/dL (0.55-1.02); EST Glomerular Filtration Rate 64 mL/min (>60); Est Glom Filt Rate - Afr Amer 77 mL/min (>60); Estimated Creatinine Clearance 62.38 ml/min; Glucose 183 mg/dL (74-106); Potassium 3.6 mmol/L (3.5-5.1); Sodium Level 139 mmol/L (136-145); Troponin-I HS 4 pg/mL (3.0-54.0)
--- NOTE | 2024-02-27 17:07 | CT_ITS ---
STUDY: CTA CHEST REASON FOR EXAM: Female, 69 years old. Chest pain with elevated D-dimer and dyspnea RADIATION DOSAGE (If Supplied By Facility): CTDIvol = ( 11.12 ) mGy, DLP = ( 516.64 ) mGycm TECHNIQUE: The examination was performed with the intravenous administration of IV 100mL Isovue-370. Post-processing of the angiographic images was performed, with multiplanar reformation and 3D reconstruction. Individualized dose optimization techniques were used for this CT. COMPARISON: None. FINDINGS: Normal enhancement of the main pulmonary artery and right and left pulmonary arteries. Normal enhancement of the bilateral peripheral pulmonary arteries. There is no demonstrated pulmonary embolism. Minor atherosclerotic changes of the aorta without evidence for aneurysm. There is no demonstrated aortic dissection. Heart is normal size. There is multifocal coronary artery calcification.. Normal mediastinum. Normal hilar regions. Normal visualized trachea and bronchi. The lungs are well expanded. There is a large left pleural effusion with consolidation of the left upper and lower lobes Normal chest wall structures. Dorsal spine demonstrates degenerative changes. There is an interosseous hemangioma in the T5 vertebral body.. There is a diffuse contour abnormality of the liver consistent with cirrhotic changes and splenomegaly with associated mesenteric edema and ascites. CT/CTA Chest W/WO Contrast IMPRESSION: Large left pleural effusion with consolidation of both left lower and upper lobes.. No evidence for pulmonary embolus Electronically Signed: Jorge Romano MD at 18:08 EDT ,
--- NOTE | 2024-02-27 18:31 | PCM.HP.STD ---
[facility] - General General Date of Admission: 02/27/24 Date of Service: 02/27/24 Chief Complaint: Shortness of breath HPI Narrative JANETTE MENESES, is a 69 F with past medical history of MAFLD associated cirrhosis with portal hypertension (splenomegaly, pancytopenia, varices, ascites), hemorrhoids, lung nodules, iron deficiency anemia, who presents to the ED with concerns regarding worsening shortness of breath, with sensation of chest tightness since the last 1 to 2 weeks. There is associated orthopnea and positional worsening of her shortness of breath. She has a history of hemorrhoids and has been noticing active bleeding for the last 1 month. She is scheduled for an EGD and colonoscopy in a month. Evaluation in the ED showed blood pressure 114/68, pulse 101, WBC 4.1, hemoglobin 6.8, platelet count 104, sodium 139, potassium 3.6, creatinine 0.9, BUN 8. CT showed normal enhancement of the main pulmonary artery with large left pleural effusion with consolidation of the left upper and left lower lobes and an intraosseous hemangioma in T5 vertebral body. Cirrhotic changes of the liver was seen this failure megaly mesenteric edema and ascites. Denies using any alcohol, does not smoke, no marijuana or any other recreational drug use. Has not had any paracentesis or thoracentesis in the past. No sick contacts. [facility] Medical History Wears contact lenses Wears glasses Post-menopausal Anxiety Alcohol use Thyroid disease History of renal disease Anemia Back pain History of diverticulitis Gastric reflux Former smoker Sleep apnea Chronic cough S/p nephrectomy Depression Migraines HTN (hypertension) Diabetes Home Medications ?Medication ?Instructions ?Recorded ?Last Taken ?Type duloxetine 60 mg capsule,delayed 90 mg PO DAILY 11/06/17 Unknown History release ergocalciferol (vitamin D2) 1,250 50,000 unit PO Q7D 11/06/17 Unknown History mcg (50,000 unit) capsule losartan 50 mg tablet 50 mg PO DAILY BP 11/06/17 Unknown History Handicap Placard See Rx Instructions .Route 03/06/19 Unknown Rx .COMPLEX Osteoarthritis #1 unit albuterol sulfate 90 mcg/actuation 1 - 2 puff inhalation PRN PRN 02/20/23 Unknown History aerosol inhaler ALLERGIES dulaglutide 0.75 mg/0.5 mL 0.75 mg subcut QWEEK 10/10/23 Unknown History subcutaneous pen injector (Trulicity) ascorbic acid (vitamin C) 500 mg 500 mg PO DAILY 02/13/24 Unknown History tablet cholecalciferol (vitamin D3) 25 25 mcg PO DAILY 02/13/24 Unknown History mcg (1,000 unit) capsule cyanocobalamin (vitamin B-12) 1,000 mcg PO DAILY 02/13/24 Unknown History 1,000 mcg capsule omeprazole 20 mg capsule,delayed 20 mg PO DAILY Heartburn 02/17/24 Unknown History release levothyroxine 125 mcg tablet 125 mcg PO DAILY disorder of 02/27/24 Unknown History (Synthroid) thyroid gland Allergy/AdvReac Type Severity Reaction Status Date / Time adhesive tape Allergy Rash Verified 02/27/24 16:06 Family History Father Colon cancer Brother Cancer bladder Surgical History History of esophagogastroduodenoscopy (EGD) S/P shoulder surgery S/P hysterectomy History of lobectomy of thyroid Social History Smoking Status: Former smoker alcohol intake: current alcohol intake frequency: holidays/special occasions only ROS Review of Systems ROS Unobtainable: Denies due to encephalopathy, due to endotracheal tube, due to mental condition, due to mental status or other Constitutional Constitutional: Denies anorexia, change in weight, chills, fatigue, fever(s), malaise, night sweats, weakness or other Eyes Eyes: Denies blurry vision, change in eye color, change in vision, discharge from eye(s), double vision, erythema, eye pain, loss of vision or other ENT HEENT: Denies abnormal hearing, dysphagia, ear pain, epistaxis, headache(s), hearing loss, nasal congestion, nasal discharge, post nasal drip, sinus pressure, sore throat or other Cardiovascular Cardiovascular: Denies chest pain, claudication, dyspnea on exertion, edema, lightheadedness, orthopnea, palpitations, paroxysmal nocturnal dyspnea, rapid heart rate, syncope or other Respiratory/Chest Respiratory/Chest: Reports cough, dyspnea, shortness of breath at rest, shortness of breath with exertion and wheezing; Denies excessive phlegm production, hemoptysis, productive cough or other Gastrointestinal Gastrointestinal: Denies abdominal pain, coffee ground emesis, constipation, diarrhea, dyspepsia, hematemesis, hematochezia, loose stools, melena, nausea, vomiting or other Genitourinary Genitourinary: Denies burning urination, difficulty urinating, dysuria, hematuria, nocturia, urinary frequency, urinary hesitancy, urinary incontinence, urinary urgency or other Musculoskeletal Musculoskeletal: Denies arthralgias, back pain, joint pain, joint stiffness, joint swelling, myalgias, neck pain or other Vital Signs Vital Signs Vital Signs: 02/27/24 16:04 02/27/24 16:21 02/27/24 16:22 Temperature 97.6 F L Temperature Source Oral Pulse Rate 118 H Respiratory Rate 17 Respiratory Effort Normal Non-Labored Blood Pressure 158/66 H Blood Pressure Mean 96 Pulse Ox 96 Oxygen Delivery Method Room Air Room Air 02/27/24 17:02 02/27/24 18:00 Temperature Temperature Source Pulse Rate 101 H 101 H Respiratory Rate 19 H 20 H Respiratory Effort Blood Pressure 114/61 114/68 Blood Pressure Mean 78 83 Pulse Ox 96 96 Oxygen Delivery Method Room Air Weight Weight: 206 lb Body Mass Index (BMI) 35.3 Physical Exam Const alert, oriented x3 and no apparent distress HEENT normocephalic and head/scalp atraumatic Neck no lymphadenopathy Resp no retractions Resp Narrative: Absent sounds on the left side of her chest GI GI Narrative: Abdomen distended, splenomegaly present normal liver not palpable Extremity normal to inspection Skin Skin Narrative: spider nevi present on the chest Neuro oriented x3, moves all extremities and no focal motor deficits Psych affect normal Results Medical Records Data Attestation: I reviewed the patient's medical records Lab / Micro Data Attestation: I reviewed the patient's lab results. 02/27/24 16:36 02/27/24 16:36 Labs: Laboratory Results - last 24 hr 02/27/24 16:36: WBC 4.1 L, RBC 2.89 L, Hgb 6.8 L, Hct 23.9 L, MCV 82.7, MCH 23.5 L, MCHC 28.5 L, RDW Std Deviation 63.7 H, RDW Coeff of Cornelio 21.7 H, Plt Count 104 L, MPV 11.2, Immature Gran % (Auto) 0.200, Neut % (Auto) 69.5, Lymph % (Auto) 17.1 L, [place] % (Auto) 9.3, Eos % (Auto) 3.2, Baso % (Auto) 0.7, Absolute Neuts (auto) 2.9, Absolute Lymphs (auto) 0.70 L, Nucleated RBC % 0, Differential Comment , D-Dimer Quant (PE/DVT) 2.98 H*, Sodium 139, Potassium 3.6, Chloride 112 H, Carbon Dioxide 21.0, Anion Gap 6, BUN 8, Creatinine 0.93, Estim Creat Clear Calc 62.38, Est GFR (MDRD) Af Amer 77, Est GFR (MDRD) Non-Af 64, BUN/Creatinine Ratio 8.6 L, Glucose 183 H, Calcium 8.7, Troponin I High Sens 4 Rhythm Strip Rhythm Strip: Sinus Tach Rate: 105 Ectopy: None Imaging Radiology Impression Chest X-Ray 02/27/24 16:38 IMPRESSION: Large left pleural effusion with consolidation of the left lower lobe and lingula. Electronically Signed: Jorge Romano MD at 17:07 EDT , Chest CTA 02/27/24 17:07 IMPRESSION: Large left pleural effusion with consolidation of both left lower and upper lobes.. No evidence for pulmonary embolus Electronically Signed: Jorge Romano MD at 18:08 EDT , Assessment & Plan Assessment/Plan (1) Pleural effusion on left: PLAN: Plan 69-year-old female with history of MAFLD associated cirrhosis, type 2 diabetes, internal hemorrhoids presents to the ED with concerns regarding worsening shortness of breath and was found to have a large left-sided pleural effusion. #Pleural effusion: Present on the left side likely related to viral pleurisy vs PNA, less likely to be hepatic hydrothorax -IR consult for thoracentesis tomorrow -Pleural fluid WBC, protein, albumin, LDH levels, pleural cultures -Nasal swab for RSV PCR, COVID -Echocardiogram to rule out pericardial effusion -Close monitoring of saturation, not requiring any oxygen at present #Metabolic associated fatty liver disease with cirrhosis: -Child Reich score A, MELD-NA: 10 -Compensated cirrhosis with complications of portal hypertension -Continue to monitor for now -Follow-up with Dr. Nash as an outpatient for the variceal screening -AFP normal # Hemorrhoidal bleeding -Scheduled for follow up colonoscopy as outpatient -High fiber diet and avoid straining at stools -has loose stools at this time, will start miralax to avoid straining -If worsening bleeding, may need inpatient colonoscopy #Acute on chronic anemia #Severe anemia -Combination of iron deficiency anemia with pancytopenia due to splenomegaly -Transfuse 1 unit of blood PRBC to maintain Hgb greater than 7 -INR is 1.3, no underlying coagulopathy #Type 2 diabetes -Given cirrhosis we will start her on insulin sliding scale without any scheduled insulin as the risk of hypoglycemia is high -On Trulicity as an outpatient will hold during her hospitalization #Depression: Continue duloxetine #Hypertension: Continue losartan 50 mg # DVT propylaxis: Heparin 5000 units SQ
--- NOTE | 2024-02-27 19:05 | ECHOD_ITS ---
Reason For Study: PERICARDIA L EFFUSION Procedure This was a 2D Doppler, Color Flow transthoracic echocardiogram. Exam performed portable in patient room. Left Ventricle Normal LV size. Left ventricular systolic function is normal. The estimated ejection fraction is 60 %. No regional wall motion abnormalities noted. Right Ventricle Normal RV size. Normal systolic function. Atria Normal left atrium. Normal right atrium. Mitral Valve Normal mitral valve. Tricuspid Valve Normal tricuspid valve. Pulmonic Valve Normal pulmonic valve. Great Vessels Normal aortic root. The pulmonary artery is normal size. Normal inferior vena cava. Pericardium/Pleural Small pericardial effusion. There are no echocardiographic indications of cardiac tamponade. Small left pleural effusion. MMode/2D Measurements & Calculations LVIDd: 3.8 cm IVSd: 1.5 cm LAV(MOD-sp4): 40.1 ml LVIDs: 2.4 cm LVPWd: 1.6 cm FS: 36.4 % LA A4 area: 16.3 cm2 LA dimension(2D): 3.6 cm RA A4 area: 14.4 cm2 TAPSE: 1.3 cm Time Measurements MV dec time: 0.10 sec Doppler Measurements & Calculations MV E max brandon: 93.0 cm/sec Lat Peak E' Brandon: 14.4 cm/sec Med Peak E' Brandon: 8.7 cm/sec MV A max brandon: 123.3 cm/sec E/E' lat: 6.4 E/E' med: 10.7 MV E/A: 0.75 MV V2 max: 120.0 cm/sec Ao V2 max: 143.1 cm/sec MV max P.8 mmHg MV dec slope: 953.2 cm/sec2 Ao max P.2 mmHg MV V2 mean: 74.6 cm/sec Ao V2 mean: 101.7 cm/sec MV mean P.6 mmHg Ao mean P.6 mmHg MV V2 VTI: 30.4 cm Ao V2 VTI: 29.2 cm AV (velocity ratio): 0.64 LV V1 max: 109.2 cm/sec LV V1 max P.8 mmHg LV V1 mean P.5 mmHg LV V1 mean: 71.6 cm/sec LV V1 VTI: 18.6 cm ECHO/Echo Complete Interpretation Summary Normal LV size. Left ventricular systolic function is normal. The estimated ejection fraction is 60 %. Small pericardial effusion. There are no echocardiographic indications of cardiac tamponade. Ordering Physician: Bree Jimenes Referring Physician: SRINIVAS ALLEN Performed By: Donya Glez RCS
[2024-02-27] MEDS: Heparin Injection (Vial) 5,000 UNIT/ML VIAL 5000 UNIT SC (21:40)
[2024-02-27 22:49] LABS: Bedside Glucose 131 mg/dL (74-106)
[2024-02-28] VITALS (10 sets, daily range): BP systolic 115–141; BP diastolic 60–84; PULSE 82–101; RESP 16–18; TEMP 35.3–36.7; O2SAT 92–98
[2024-02-28] MEDS: Levothyroxine 125 MCG Tablet PO (06:41)
[2024-02-28 07:07] LABS: Bedside Glucose 135 mg/dL (74-106)
[2024-02-28 07:10] LABS: Absolute Lymphocyte Count 0.83 X10^3/uL (0.83-4.51); Absolute Neutrophil Count 1.7 X10^3/uL (2.0-7.7); Basophil# 0.02 X10^3/uL; Basophil% 0.6 % (0-1); Eosinophil# 0.16 X10^3/uL; Eosinophils% 5.1 % (0-5); Hematocrit 25.1 % (37-47); Hemoglobin 7.3 g/dL (12.0-15.0); Lymphocyte # 0.83 X10^3/ul (0.83-4.51); Lymphocyte % 26.7 % (19-41); Mean Corp Hgb Conc 29.1 g/dL (32-36); Mean Corpuscular Hgb 23.9 pg (27.0-32.0); Mean Corpuscular Volume 82.3 fL (81-99); Mean Platelet Vol. 10.8 fl (6.2-12.0); Monocyte# 0.37 X10^3/uL; Monocyte% 11.9 % (0-10); NRBC Flagged by Analyzer 0 % (0-5); Neutrophil # 1.71 X10^3/uL (2.7-7.7); Neutrophil % 55.1 % (47-70); POSITIVE COUNT YES; POSITIVE MORPHOLOGY YES; Platelet Count 91 K/mm3 (150-450); RBC Distribution Width CV 20.9 % (11.6-14.6); RBC Distribution Width SD 61.1 fl (35.1-43.9); Red Blood Count 3.05 M/mm3 (4.2-5.4); White Blood Count 3.1 K/mm3 (4.4-11.0)
[2024-02-28 07:12] LABS: Differential Indicated SCAN CRITERIA MET
[2024-02-28 07:40] LABS: ALB/GLOB Ratio 1.2 RATIO (0.9-2.4); AST(SGOT) 23 U/L (15-37); Alanine Aminotransfer ALT/SGPT 19 U/L (13-56); Albumin, Serum 2.8 g/dL (3.2-5.0); Alkaline Phosphatase 113 U/L (45-117); Anion Gap 6 (5-15); BUN 9 mg/dL (7-18); BUN/Creat Ratio 13.1 RATIO (10-20); Bilirubin, Direct 0.38 mg/dL (0.00-0.30); Calcium,Total 8.4 mg/dL (8.5-10.1); Chloride 114 mmol/L (98-107); Creatinine, Serum 0.69 mg/dL (0.55-1.02); EST Glomerular Filtration Rate 90 mL/min (>60); Est Glom Filt Rate - Afr Amer 109 mL/min (>60); Estimated Creatinine Clearance 74.07 ml/min; Globulin 2.4 g/dL (2.2-4.2); Glucose 145 mg/dL (74-106); Magnesium 2.2 mg/dL (1.6-2.6); Potassium 3.7 mmol/L (3.5-5.1); Protein, Total 5.2 g/dL (6.4-8.2); Sodium Level 142 mmol/L (136-145); Thyroid Stim Hormone (TSH) 3.51 uIU/mL (0.358-3.74)
[2024-02-28 07:52] LABS: Anisocytosis 1+; Platelet Estimate MOD DEC (ADEQ)
--- NOTE | 2024-02-28 07:56 | US_ITS ---
PROCEDURE: ULTRASOUND GUIDED THORACENTESIS. DATE: February 28, 2024.. INDICATION: Female, 69 years old. Left pleural effusion. PHYSICIAN: Timmy Maldonado M.D. PROCEDURE: The risks, benefits, and alternatives to the procedure were explained to the patient. The specific risks of bleeding, infection, and pneumothorax requiring chest tube insertion were discussed and accepted. Written informed consent was obtained. Ultrasonographic evaluation of the lower pleural space was carried out. An adequate pocket was identified. The patient was placed in the sitting, upright position. The overlying skin was prepped and draped in sterile fashion. 1% lidocaine was administered subcutaneously for local anesthesia. Under ultrasound guidance, a 5 Arabic thoracentesis needle/catheter system was advanced into the left posterior lower pleural fluid collection. Approximately 2090 mL of surinder-colored fluid was drained. The catheter was removed, and a sterile dressing was applied. A specimen was collected and sent to the laboratory for analysis, as requested by the referring clinician. The patient tolerated the procedure well. A chest x-ray was ordered. US/Thoracentesis W US IMPRESSION: Ultrasound-guided left thoracentesis. Electronically Signed: Timmy Maldonado MD at 13:13 EDT ,
--- NOTE | 2024-02-28 10:50 | CASEMGMT ---
RN?CM?SALES [employer]S ANALYST?CM?to room to meet with patient for initial transition planning/care coordination?assessment.?RN?CM?introduced self and role at [facility].? Pt voices understanding and consents to?assessment?at this time.? Pt resting in bed in no distress at this time.? Pt is A/O at this time and answers all questions appropriately.?? Care providers, pharmacy, and demographics verified/updated at this time. PCP: Dr Locke Specialists: Dr Nash/LARISSA [facility]erred [facility]acy: [facility] Insurance: Gregor FIGUEROA Prescription Benefit:?yes Living Will/HPOA: States does not have LW or HCPOA .? Interested in more information but states does not want to talk with SW at this time to complete paperwork.? Provided information on advanced directives. Educated patient that, if patient so chooses, can come back to [facility] and meet with a SW as an outpatient to complete health care advanced directives. Patient expresses understanding. LNOK: Sister, Francheska. Pt also has 3 brothers. Pt has no children and parents are . Living Arrangements: Lives alone in ground-floor/one-story apartment w/no steps to enter. Indep w/ADL's and IADL's. Transportation:?Pt states drives self and states no transportation concerns at this time.? DME: ?States has the following DME:?functioning glucometer w/supplies, BP machine. ?Pt states no need for further DME at this time.? HHC/SNF: No hx of either. Has went to [facility] in the past for OP therapy. Pt wishes to return home and states has no concerns with going home at time of discharge.?She declines wanting/needing HHC or OP therapy. CM?to follow for any discharge planning/needs.? Pt voices no further concerns/needs at this time.? Advised pt to ask for?CM?if any further questions/concerns/needs arise.? Voices understanding. PLAN:??Home Erick GALLOWAYN?RN?CM
[2024-02-28 11:53] LABS: Bedside Glucose 125 mg/dL (74-106)
--- NOTE | 2024-02-28 12:10 | FLU_PTH ---
PATIENT: JANETTE MENESES LOC: [facility] [place] U#:[id number] AGE/SX: 69/F ROOM: [facility] RE02/27/[address]: Dr. Trisha Iraheta MD : 1955 BED: 1 DIS: 03/01/2024 SPEC #: [id number] RECD: 02/28/24 12:46 STATUS: MANNIE LAY #: [id number] TAYLOR: 02/28/24 12:[address]: Trisha Iraheta DEPT: CYTOLOGY RECD BY: Daniella Ramires ENTERED: 03/02/24 08:16 SP TYPE: Fluid OTHR DR: MD Dr. Timmy Freeman MD Dr. Jordan Garrison, DO Tissues: THORACIC FLUID Procedures: Special Stain Group II Surgery Specimen Level IV Cytospin Fluid HEADER OPERATION: Thoracentesis PRE-OP DIAGNOSIS: Pleural effusion TISSUE SUBMITTED: Thoracentesis fluid for cytology DIAGNOSIS CYTOLOGY Thoracentesis fluid for cytology (cytospin and cellblock): Negative for malignant cells. JAIR/ 03/03/2024 CYTOLOGY STUDY Slides are reviewed. CYTOLOGY GROSS Received is 80 ml of hazy light yellow fluid labeled with the patient's name and and designated per the requisition as Thoracentesis. Submitted for cytology preparation including cell block. Mr 03/02/2024 TC:5 CPT: 68745
[2024-02-28] MEDS: Lidocaine 2% (20 ml mdv) 20 ML Vial INFILT (12:14)
--- NOTE | 2024-02-28 12:38 | RAD_ITS ---
STUDY: X-RAY CHEST REASON FOR EXAM: Female, 69 years old. Post thora TECHNIQUE: AP inspiration and expiration views. COMPARISON: Comparison is made with prior study dated February 27, 2024. FINDINGS: EKG electrodes are seen. The patient status post left thoracentesis. No evidence of pneumothorax. Mild degree of residual pleural-parenchymal changes persists. RAD/Chest Insp/Exp 2 View IMPRESSION: No evidence of pneumothorax on the post left thoracentesis examination. Mild degree of residual left pleural-parenchymal changes. Electronically Signed: Timmy Maldonado MD at 13:12 EDT ,
[2024-02-28] MEDS: DULoxetine Hcl 30 MG Capsule 90 MG PO (13:08)
[2024-02-28] MEDS: Losartan Potassium 50 MG Tablet PO (13:08)
[2024-02-28] MEDS: Pantoprazole Sodium 20 MG Tablet PO (13:09)
[2024-02-28 13:22] LABS: Cytology, Body Fluid / CSF SEE PATHOLOGY REPORT
[2024-02-28 13:37] LABS: Body Fluid Mononuclear WBC # 0.151 10^3/uL; Body Fluid Mononuclear WBC % 85.8 %; Body Fluid Polynuclear WBC # 0.025 10^3/uL; Body Fluid Polynuclear WBC % 14.2 %; Body Fluid Total Cells Counted 0.227 10^3/ul; White Blood Count/Body Fluid 0.176 10^3/uL
[2024-02-28 13:38] LABS: Auto B Fluid Analyzer BKGD Ct COUNTS W/IN LIMITS (W/IN LIMITS)
[2024-02-28 13:41] LABS: Appearance/Body Fluid CLEAR; Color/Body Fluid LT YEL; Source- Body Fluid THORACENTESIS
[2024-02-28] MEDS: Acetaminophen 325 MG Tablet 650 MG PO (13:54)
[2024-02-28 13:59] LABS: Red Cell Count/Body Fluid 205 /mm3
[2024-02-28 14:12] LABS: Glucose, Body Fluid 150 mg/dL (40-70); LDH,Body Fluid 35 Units/L (Not Establ.); Protein, Body Fluid 0.7 g/dL (Not Establ.)
[2024-02-28 14:13] LABS: International Normalized Ratio 1.3; Prothrombin Time (Protime)PT. 16.1 SECONDS (11.7-14.9)
[2024-02-28 14:39] LABS: Body Fluid QC Type(s) BF3Q
[2024-02-28 14:41] LABS: Lymphocytes 40 %; Macrophages 46 %; Neutrophil (Segs) 14 %
--- NOTE | 2024-02-28 14:42 | PN_ITS ---
Subjective Subjective Patient seen and examined. She was admitted with a complaint of shortness of breath and has been managed for pleural effusion. She was for thoracentesis today. She denied any coughing or chest pain, palpitations, dizziness, nausea or vomiting or any other symptoms. Review of systems otherwise negative. Objective Data Objective Data Vital Signs: Vital Signs Temp Pulse Resp BP Pulse Ox O2 Del Method 97.9 F 89 18 138/83 H 97 Room Air 02/28/24 12:59 02/28/24 13:17 02/28/24 13:09 02/28/24 13:17 02/28/24 13:17 02/28/24 13:17 Oxygen Delivery Method Room Air Weight: 214 lb 4.629 oz Body Mass Index (BMI) 36.8 Intake & Output: Intake and Output for Last 24 Hours 02/26/24 02/27/24 02/28/24 23:59 23:59 23:59 Intake Total 0 / 500 801 / 801 Output Total 0 / 209 Balance 0 / 500 -1289 / -1289 Lab / Micro Data 02/28/24 06:41 02/28/24 06:41 Labs: Laboratory Results - last 24 hr 02/27/24 16:36: WBC 4.1 L, RBC 2.89 L, Hgb 6.8 L, Hct 23.9 L, MCV 82.7, MCH 23.5 L, MCHC 28.5 L, RDW Std Deviation 63.7 H, RDW Coeff of Cornelio 21.7 H, Plt Count 104 L, MPV 11.2, Immature Gran % (Auto) 0.200, Neut % (Auto) 69.5, Lymph % (Auto) 17.1 L, Clinch % (Auto) 9.3, Eos % (Auto) 3.2, Baso % (Auto) 0.7, Absolute Neuts (auto) 2.9, Absolute Lymphs (auto) 0.70 L, Nucleated RBC % 0, Differential Comment , D-Dimer Quant (PE/DVT) 2.98 H*, Sodium 139, Potassium 3.6, Chloride 112 H, Carbon Dioxide 21.0, Anion Gap 6, BUN 8, Creatinine 0.93, Estim Creat Clear Calc 62.38, Est GFR (MDRD) Af Amer 77, Est GFR (MDRD) Non-Af 64, B UN/Creatinine Ratio 8.6 L, Glucose 183 H, Calcium 8.7, Troponin I High Sens 4 02/27/24 17:50: Blood Type A POSITIVE, Antibody Screen NEGATIVE, Crossmatch See Detail 02/27/24 21:39: POC Glucose 131 H 02/28/24 06:40: POC Glucose 135 H 02/28/24 06:41: WBC 3.1 L, RBC 3.05 L, Hgb 7.3 L, Hct 25.1 L, MCV 82.3, MCH 23.9 L, MCHC 29.1 L, RDW Std Deviation 61.1 H, RDW Coeff of Cornelio 20.9 H, Plt Count 91 L, MPV 10.8, Immature Gran % (Auto) 0.600, Neut % (Auto) 55.1, Lymph % (Auto) 26.7, Clinch % (Auto) 11.9 H, Eos % (Auto) 5.1 H, Baso % (Auto) 0.6, Absolute Neuts (auto) 1.7 L, Absolute Lymphs (auto) 0.83, Nucleated RBC % 0, Platelet Estimate MOD DEC, Anisocytosis 1+, PT 16.1 H, INR 1.3, Sodium 142, Potassium 3.7, Chloride 114 H, Carbon Dioxide 22.0, Anion Gap 6, BUN 9, Creatinine 0.69, Estim Creat Clear Calc 74.07, Est GFR (MDRD) Af Amer 109, Est GFR (MDRD) Non-Af 90, BUN/Creatinine Ratio 13.1, Glucose 145 H, Calcium 8.4 L, Phosphorus 3.0, Magnesium 2.2, Total Bilirubin 1.20 H, Direct Bilirubin 0.38 H, AST 23, ALT 19, Alkaline Phosphatase 113, Total Protein 5.2 L, Albumin 2.8 L, Globulin 2.4, Albumin/Globulin Ratio 1.2, TSH 3.51 02/28/24 11:11: POC Glucose 125 H 02/28/24 12:46: Fluid Source THORACENTESIS, Fluid Color LT YEL, Fluid Appearance CLEAR, Fluid WBC 0.176, Fluid RBC 205, Fluid Tot Cell Count 0.227 H, Fld Polynuclear WBCs # 0.025, Fld Polynuclear WBCs % 14.2, Fluid Mononuclear WBCs 0.151, Fld Mononuclear WBCs % 85.8, Fluid Neutrophils 14, Fluid Lymphocytes 40, Fluid Macrophages 46, Fl Pathologist Comment May follow, Fluid Glucose 150 H, Fluid Total Protein 0.7, Fluid LDH 35, Fluid Comment 2 SEE COMMENT Micro: Microbiology 02/27/24 21:00 Mucosa - Nasopharyngeal Respiratory Panel (PCR) - Final Radiography Diagnostic Testing: Radiology Impression Chest X-Ray 02/27/24 16:38 IMPRESSION: Large left pleural effusion with consolidation of the left lower lobe and lingula. Electronically Signed: Jorge Romano MD at 17:07 EDT , Chest CTA 02/27/24 17:07 IMPRESSION: Large left pleural effusion with consolidation of both left lower and upper lobes.. No evidence for pulmonary embolus Electronically Signed: Jorge Romano MD at 18:08 EDT , Thoracentesis Ultrasound 02/28/24 07:56 IMPRESSION: Ultrasound-guided left thoracentesis. Electronically Signed: Timmy Maldonado MD at 13:13 EDT , Chest X-Ray 02/28/24 12:38 IMPRESSION: No evidence of pneumothorax on the post left thoracentesis examination. Mild degree of residual left pleural-parenchymal changes. Electronically Signed: Timmy Maldonado MD at 13:12 EDT , Rhythm Strip Rhythm Strip: Sinus Tach Rate: 105 Ectopy: None Physical Exam Const alert, oriented x3 and no apparent distress General Appearance: cooperative and well developed HEENT normocephalic, head/scalp atraumatic, moist oral mucous membranes and oropharynx normal Eyes PERRL and EOMs intact bilaterally Neck no lymphadenopathy and supple Lymph Lymphatic: no lymphadenopathy noted and no lymphedema noted Resp Resp Narrative: Moderately diminished breath sounds on the left. No wheezes or crackles. On room air. Cardio regular rate, regular rhythm, S1 normal heart sound, S2 normal heart sound and no murmurs GI normal to inspection, nondistended, normoactive bowel sounds, soft to palpation, non-tender and non-distended Extremity normal capillary refill, no clubbing, cyanosis or edema and no calf tenderness Skin General Skin Exam: no breakdown and turgor normal Neuro CN's II-XII intact bilaterally, no focal motor deficits, no sensory deficits noted and deep tendon reflexes 2+ bilaterally Motor Exam: strength 5/5 throughout and general weakness Psych thought process normal and cooperative Appearance: appropriate Assessment & Plan Assessment/Plan (1) History of diabetes mellitus: (2) History of cirrhosis: (3) Pleural effusion on left: (4) Ascites: PLAN: Plan #Left pleural effusion * CTA chest showed large left pleural effusion with consolidation of the upper and lower lobes on the left with evidence of cirrhosis of the liver and hepatomegaly as well as mesenteric edema and ascites * For thoracentesis today. This to be a diagnostic thoracentesis. Had removal of approximately 2.09 L of fluid from the left pleural space. * Currently on room air. * Breathing treatments bronchodilators. 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 Imaging done showed hepatomegaly with mesenteric edema and ascites. * Gastroenterology consult. #Hemorrhoids: * States she has had some bleeding from the hemorrhoids. * Was to have Colonoscopy on Outpatient basis. * GI consulted this admission on account of acute on chronic anemia with hemoglobin dropping down to 6.8. * Hemoglobin is now 7.3. #Hypertension: On losartan #Acute on chronic anemia * Hb was 6.8 on admission; she was transfused with 2 units of PRBCs. Hb now is 7.3. Consult GI for evaluation. * #Pancytopenia: WBC is 3.1 hemoglobin is 7.3 with platelets of 91. This is chronic and likely due to cirrhosis. Will monitor. #TYpe 2 diabetes mellitus: ISS. Accuchecks ACHS. On trulicity on outpatient basis. #Depression: on duloxetine. DVT prophylaxis: SCDs. Heparin discontinued. Charges/Coding Visit Charges Inpatient E&M: 96224 Subs Hosp L3
[2024-02-28 17:54] LABS: Bedside Glucose 115 mg/dL (74-106)
[2024-02-28 22:37] LABS: Bedside Glucose 134 mg/dL (74-106)
[2024-02-29] MEDS: Acetaminophen 325 MG Tablet 650 MG PO (01:35)
[2024-02-29 05:45] LABS: Absolute Lymphocyte Count 0.64 X10^3/uL (0.83-4.51); Absolute Neutrophil Count 1.4 X10^3/uL (2.0-7.7); Basophil# 0.01 X10^3/uL; Basophil% 0.4 % (0-1); Eosinophil# 0.09 X10^3/uL; Eosinophils% 3.8 % (0-5); Hematocrit 24.7 % (37-47); Hemoglobin 7.2 g/dL (12.0-15.0); Lymphocyte # 0.64 X10^3/ul (0.83-4.51); Lymphocyte % 26.9 % (19-41); Mean Corp Hgb Conc 29.1 g/dL (32-36); Mean Corpuscular Hgb 24.4 pg (27.0-32.0); Mean Corpuscular Volume 83.7 fL (81-99); Monocyte# 0.24 X10^3/uL; Monocyte% 10.1 % (0-10); NRBC Flagged by Analyzer 0 % (0-5); Neutrophil # 1.39 X10^3/uL (2.7-7.7); Neutrophil % 58.4 % (47-70); POSITIVE COUNT YES; POSITIVE MORPHOLOGY YES; Platelet Count 86 K/mm3 (150-450); RBC Distribution Width CV 21.6 % (11.6-14.6); RBC Distribution Width SD 62.9 fl (35.1-43.9); Red Blood Count 2.95 M/mm3 (4.2-5.4); White Blood Count 2.4 K/mm3 (4.4-11.0)
[2024-02-29 06:04] LABS: Differential Indicated SCAN CRITERIA MET
[2024-02-29 06:20] LABS: Anion Gap 6 (5-15); BUN 8 mg/dL (7-18); BUN/Creat Ratio 11.1 RATIO (10-20); Calcium,Total 8.3 mg/dL (8.5-10.1); Chloride 115 mmol/L (98-107); Creatinine, Serum 0.72 mg/dL (0.55-1.02); EST Glomerular Filtration Rate 85 mL/min (>60); Est Glom Filt Rate - Afr Amer 103 mL/min (>60); Estimated Creatinine Clearance 74.07 ml/min; Glucose 120 mg/dL (74-106); Potassium 3.6 mmol/L (3.5-5.1); Sodium Level 143 mmol/L (136-145)
[2024-02-29 06:30] VITALS: BP 139/79; PULSE 96; RESP 18; TEMP 35.6; O2SAT 99
[2024-02-29] MEDS: Levothyroxine 125 MCG Tablet PO (06:37)
[2024-02-29 06:38] LABS: Anisocytosis 1+; Hypochromasia 2+; Platelet Estimate ADEQUATE (ADEQ)
[2024-02-29 07:00] LABS: Bedside Glucose 110 mg/dL (74-106)
[2024-02-29 09:47] VITALS: BP 140/77; PULSE 88; RESP 16; TEMP 36.6; O2SAT 95
[2024-02-29] MEDS: Losartan Potassium 50 MG Tablet PO (09:53)
[2024-02-29] MEDS: Pantoprazole Sodium 20 MG Tablet PO (09:54)
[2024-02-29] MEDS: Cyanocobalamin 500 MCG Tablet 1000 MCG PO (09:54)
[2024-02-29] MEDS: DULoxetine Hcl 30 MG Capsule 90 MG PO (09:54)
--- NOTE | 2024-02-29 10:59 | PCM.PROGNOTE ---
Subjective Subjective Patient seen and examined. She had no active complaints. She had an uneventful night. Review of systems is otherwise negative. She is on room air. Objective Data Objective Data Vital Signs: Vital Signs Temp Pulse Resp BP Pulse Ox O2 Del Method 97.8 F 88 16 140/77 H 95 Room Air 02/29/24 09:47 02/29/24 09:47 02/29/24 09:47 02/29/24 09:47 02/29/24 09:47 02/29/24 09:58 Oxygen Delivery Method Room Air Weight: 214 lb 4.629 oz Body Mass Index (BMI) 36.8 Intake & Output: Intake and Output for Last 24 Hours 02/27/24 02/28/24 02/29/24 23:59 23:59 23:59 Intake Total 0 / 500 801 / 1301 500 / 500 Output Total 2090 / 2090 Balance 0 / 500 -1289 / -789 500 / 500 Lab / Micro Data 02/29/24 04:46 02/29/24 04:46 Labs: Laboratory Results - last 24 hr 02/28/24 06:41: PT 16.1 H, INR 1.3 02/28/24 11:11: POC Glucose 125 H 02/28/24 12:46: Fluid Source THORACENTESIS, Fluid Color LT YEL, Fluid Appearance CLEAR, Fluid WBC 0.176, Fluid RBC 205, Fluid Tot Cell Count 0.227 H, Fld Polynuclear WBCs # 0.025, Fld Polynuclear WBCs % 14.2, Fluid Mononuclear WBCs 0.151, Fld Mononuclear WBCs % 85.8, Fluid Neutrophils 14, Fluid Lymphocytes 40, Fluid Macrophages 46, Fl Pathologist Comment May follow, Fluid Glucose 150 H, Fluid Total Protein 0.7, Fluid LDH 35, Fluid Comment 2 SEE COMMENT 02/28/24 16:25: POC Glucose 115 H 02/28/24 22:17: POC Glucose 134 H 02/29/24 04:46: WBC 2.4 L, RBC 2.95 L, Hgb 7.2 L, Hct 24.7 L, MCV 83.7, MCH 24.4 L, MCHC 29.1 L, RDW Std Deviation 62.9 H, RDW Coeff of Cornelio 21.6 H, Plt Count 86 L, MPV 11.0, Immature Gran % (Auto) 0.400, Neut % (Auto) 58.4, Lymph % (Auto) 26.9, [place] % (Auto) 10.1 H, Eos % (Auto) 3.8, Baso % (Auto) 0.4, Absolute Neuts (auto) 1.4 L, Absolute Lymphs (auto) 0.64 L, Nucleated RBC % 0, Platelet Estimate ADEQUATE, Hypochromasia 2+, Anisocytosis 1+, Sodium 143, Potassium 3.6, Chloride 115 H, Carbon Dioxide 22.0, Anion Gap 6, BUN 8, Creatinine 0.72, Estim Creat Clear Calc 74.07, Est GFR (MDRD) Af Amer 103, Est GFR (MDRD) Non-Af 85, BUN/Creatinine Ratio 11.1, Glucose 120 H, Calcium 8.3 L 02/29/24 06:34: POC Glucose 110 H Micro: Microbiology 02/27/24 21:00 Mucosa - Nasopharyngeal Respiratory Panel (PCR) - Final Radiography Diagnostic Testing: Radiology Impression Echocardiogram 02/27/24 19:05 Interpretation Summary Normal LV size. Left ventricular systolic function is normal. The estimated ejection fraction is 60 %. Small pericardial effusion. There are no echocardiographic indications of cardiac tamponade. Ordering Physician: Bree Jimenes Referring Physician: SRINIVAS ALLEN Performed By: Donya Glez RCS Thoracentesis Ultrasound 02/28/24 07:56 IMPRESSION: Ultrasound-guided left thoracentesis. Electronically Signed: Timmy Maldonado MD at 13:13 EDT , Chest X-Ray 02/28/24 12:38 IMPRESSION: No evidence of pneumothorax on the post left thoracentesis examination. Mild degree of residual left pleural-parenchymal changes. Electronically Signed: Timmy Maldonado MD at 13:12 EDT , Rhythm Strip Rhythm Strip: Sinus Tach Rate: 105 Ectopy: None Physical Exam Const alert, oriented x3 and no apparent distress General Appearance: cooperative and well developed HEENT normocephalic, head/scalp atraumatic, moist oral mucous membranes and oropharynx normal Eyes PERRL and EOMs intact bilaterally Neck no lymphadenopathy and supple Lymph Lymphatic: no lymphadenopathy noted and no lymphedema noted Resp no retractions Resp Narrative: Moderately diminished breath sounds on the left. No wheezes or crackles. On room air. Cardio regular rate, regular rhythm, S1 normal heart sound, S2 normal heart sound and no murmurs GI normal to inspection, nondistended, normoactive bowel sounds GI Narrative: Abdomen distended, positive shifting dullness Extremity normal to inspection, normal capillary refill, no clubbing, cyanosis or edema and no calf tenderness Skin General Skin Exam: no breakdown and turgor normal Neuro oriented x3, CN's II-XII intact bilaterally, moves all extremities, no focal motor deficits, no sensory deficits noted and deep tendon reflexes 2+ bilaterally Motor Exam: strength 5/5 throughout and general weakness Psych thought process normal, cooperative and affect normal Appearance: appropriate Assessment & Plan Assessment/Plan (1) History of diabetes mellitus: (2) History of cirrhosis: (3) Pleural effusion on left: (4) Ascites: PLAN: Plan #Left pleural effusion CTA chest showed large left pleural effusion with consolidation of the upper and lower lobes on the left with evidence of cirrhosis of the liver and hepatomegaly as well as mesenteric edema and ascites s/p diagnostic thoracentesis. Had removal of approximately 2.09 L of fluid from the left pleural space. Currently on room air. Breathing treatments bronchodilators. fluid analysis showed transudative fluid. This is likely due to the liver failure. 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 Imaging done showed hepatomegaly with mesenteric edema and ascites. Gastroenterology consult. #Hemorrhoids: States she has had some bleeding from the hemorrhoids. Was to have Colonoscopy on Outpatient basis. GI consulted this admission on account of acute on chronic anemia with hemoglobin dropping down to 6.8. Hemoglobin is now 7.2. #Hypertension: On losartan #Acute on chronic anemia Hb was 6.8 on admission; she was transfused with 2 units of PRBCs. Hb is 7.2 today. GI consulted; await evaluation. #Pancytopenia: WBC is 2.4. hemoglobin is 7.2 today with platelets of 86 today. This is chronic and likely due to cirrhosis. Will monitor. #TYpe 2 diabetes mellitus: ISS. Accuchecks ACHS. On trulicity on outpatient basis. #Depression: on duloxetine. DVT prophylaxis: SCDs. Heparin discontinued. Charges/Coding Visit Charges Inpatient E&M: 72074 Subs Hosp L2
[2024-02-29 12:32] LABS: Bedside Glucose 107 mg/dL (74-106)
[2024-02-29 15:45] VITALS: BP 119/74; PULSE 94; RESP 17; TEMP 36.7; O2SAT 97
[2024-02-29] MEDS: 0.9% Saline Lock 10 ML Syringe IV (16:40)
[2024-02-29 16:59] LABS: Bedside Glucose 127 mg/dL (74-106)
[2024-02-29 21:45] VITALS: BP 108/69; PULSE 98; RESP 18; TEMP 36.9; O2SAT 99
[2024-02-29 21:55] LABS: Bedside Glucose 147 mg/dL (74-106)
[2024-03-01] MEDS: Acetaminophen 325 MG Tablet 650 MG PO (03:44)
[2024-03-01] MEDS: Levothyroxine 125 MCG Tablet PO (03:44)
[2024-03-01 03:45] VITALS: BP 125/66; PULSE 95; RESP 16; TEMP 36.6; O2SAT 95
[2024-03-01 06:40] LABS: Bedside Glucose 120 mg/dL (74-106)
[2024-03-01 07:56] LABS: Absolute Lymphocyte Count 0.79 X10^3/uL (0.83-4.51); Absolute Neutrophil Count 1.4 X10^3/uL (2.0-7.7); Basophil# 0.02 X10^3/uL; Basophil% 0.8 % (0-1); Eosinophil# 0.13 X10^3/uL; Hemoglobin 7.4 g/dL (12.0-15.0); Lymphocyte # 0.79 X10^3/ul (0.83-4.51); Lymphocyte % 30.3 % (19-41); Mean Corp Hgb Conc 28.5 g/dL (32-36); Mean Corpuscular Hgb 23.9 pg (27.0-32.0); Mean Corpuscular Volume 83.9 fL (81-99); Monocyte# 0.29 X10^3/uL; Monocyte% 11.1 % (0-10); NRBC Flagged by Analyzer 0 % (0-5); Neutrophil # 1.38 X10^3/uL (2.7-7.7); Neutrophil % 52.8 % (47-70); POSITIVE COUNT YES; POSITIVE MORPHOLOGY YES; Platelet Count 93 K/mm3 (150-450); RBC Distribution Width CV 21.9 % (11.6-14.6); RBC Distribution Width SD 65.8 fl (35.1-43.9); White Blood Count 2.6 K/mm3 (4.4-11.0)
[2024-03-01 08:05] LABS: Differential Indicated SCAN CRITERIA MET
[2024-03-01] MEDS: Losartan Potassium 50 MG Tablet PO (08:07)
[2024-03-01] MEDS: DULoxetine Hcl 30 MG Capsule 90 MG PO (08:07)
[2024-03-01] MEDS: Pantoprazole Sodium 20 MG Tablet PO (08:08)
[2024-03-01] MEDS: Cyanocobalamin 500 MCG Tablet 1000 MCG PO (08:08)
[2024-03-01] MEDS: Ergocalciferol 1.25 MG (50, 000 UNIT) Capsule PO (08:08)
[2024-03-01 08:40] LABS: ALB/GLOB Ratio 1.1 RATIO (0.9-2.4); AST(SGOT) 20 U/L (15-37); Alanine Aminotransfer ALT/SGPT 19 U/L (13-56); Albumin, Serum 2.6 g/dL (3.2-5.0); Alkaline Phosphatase 108 U/L (45-117); Anion Gap 5 (5-15); BUN 6 mg/dL (7-18); BUN/Creat Ratio 9.1 RATIO (10-20); Calcium,Total 8.5 mg/dL (8.5-10.1); Chloride 115 mmol/L (98-107); Creatinine, Serum 0.66 mg/dL (0.55-1.02); EST Glomerular Filtration Rate 94 mL/min (>60); Est Glom Filt Rate - Afr Amer 114 mL/min (>60); Estimated Creatinine Clearance 74.07 ml/min; Globulin 2.3 g/dL (2.2-4.2); Glucose 129 mg/dL (74-106); Potassium 3.7 mmol/L (3.5-5.1); Protein, Total 4.9 g/dL (6.4-8.2); Sodium Level 141 mmol/L (136-145)
[2024-03-01 08:52] VITALS: BP 109/60; PULSE 95; RESP 16; TEMP 36.9; O2SAT 95
[2024-03-01 09:05] VITALS: PULSE 92
[2024-03-01 09:33] LABS: Acanthocytes 1+; Anisocytosis 2+; Differential Comment SCANNED; Hypochromasia 1+; Macrocytosis 1+; Microcytosis 1+
[2024-03-01] MEDS: Sodium Ferric Gluconat 250 MG in 0.9% Normal Saline 250 ML 135 MG IV (10:42)
--- NOTE | 2024-03-01 11:19 | PN_ITS ---
Subjective Subjective Patient seen and examined. She had no active complaints and had an uneventful night. Review of systems otherwise negative. She says she was post to get an iron infusion on Saturday by her oncologist. She is therefore wondering she can get it here. She is still awaiting GI evaluation. Hemoglobin today is 7.4. Objective Data Objective Data Vital Signs: Vital Signs Temp Pulse Resp BP Pulse Ox O2 Del Method 98.4 F 92 16 109/60 95 Room Air 03/01/24 08:52 03/01/24 09:05 03/01/24 08:52 03/01/24 08:52 03/01/24 08:52 03/01/24 08:52 Oxygen Delivery Method Room Air Weight: 214 lb 4.629 oz Body Mass Index (BMI) 36.8 Intake & Output: Intake and Output for Last 24 Hours 02/28/24 02/29/24 03/01/24 23:59 23:59 23:59 Intake Total 801 / 1301 2580 / 2580 120 / 120 Output Total 2090 / 2090 Balance -1289 / -789 2580 / 2580 120 / 120 Lab / Micro Data 03/01/24 07:45 03/01/24 07:45 Labs: Laboratory Results - last 24 hr 02/29/24 12:03: POC Glucose 107 H 02/29/24 16:37: POC Glucose 127 H 02/29/24 21:14: POC Glucose 147 H 03/01/24 06:19: POC Glucose 120 H 03/01/24 07:45: WBC 2.6 L, RBC 3.10 L, Hgb 7.4 L, Hct 26.0 L, MCV 83.9, MCH 23.9 L, MCHC 28.5 L, RDW Std Deviation 65.8 H, RDW Coeff of Cornelio 21.9 H, Plt Count 93 L, MPV 10.0, Immature Gran % (Auto) 0.000, Neut % (Auto) 52.8, Lymph % (Auto) 30.3, [place] % (Auto) 11.1 H, Eos % (Auto) 5.0, Baso % (Auto) 0.8, Absolute Neuts (auto) 1.4 L, Absolute Lymphs (auto) 0.79 L, Nucleated RBC % 0, Differential Comment SCANNED, Hypochromasia 1+, Anisocytosis 2+, Microcytosis 1+, Macrocytosis 1+, Acanthocytes (Spur) 1+, Sodium 141, Potassium 3.7, Chloride 115 H, Carbon Dioxide 21.0, Anion Gap 5, BUN 6 L, Creatinine 0.66, Estim Creat Clear Calc 74.07, Est GFR (MDRD) Af Amer 114, Est GFR (MDRD) Non-Af 94, BUN/Creatinine Ratio 9.1 L, Glucose 129 H, Calcium 8.5, Total Bilirubin 0.90, AST 20, ALT 19, Alkaline Phosphatase 108, Total Protein 4.9 L, Albumin 2.6 L, Globulin 2.3, Albumin/Globulin Ratio 1.1 Micro: Microbiology 02/27/24 21:00 Mucosa - Nasopharyngeal Respiratory Panel (PCR) - Final Rhythm Strip Rhythm Strip: Sinus Tach Rate: 105 Ectopy: None Physical Exam Const alert, oriented x3 and no apparent distress General Appearance: cooperative and well developed HEENT normocephalic, head/scalp atraumatic, moist oral mucous membranes and oropharynx normal Eyes PERRL and EOMs intact bilaterally Neck no lymphadenopathy and supple Lymph Lymphatic: no lymphadenopathy noted and no lymphedema noted Resp no retractions Resp Narrative: Moderately diminished breath sounds on the left. No wheezes or crackles. On room air. Cardio regular rate, regular rhythm, S1 normal heart sound, S2 normal heart sound and no murmurs GI normal to inspection, nondistended, normoactive bowel sounds, soft to palpation, non-tender and non-distended GI Narrative: Abdomen mildly distended, positive shifting dullness Extremity normal to inspection, normal capillary refill, no clubbing, cyanosis or edema and no calf tenderness Skin Skin Narrative: spider nevi present on the chest General Skin Exam: no breakdown and turgor normal Neuro oriented x3, CN's II-XII intact bilaterally, moves all extremities, no focal motor deficits, no sensory deficits noted and deep tendon reflexes 2+ bilaterally Motor Exam: strength 5/5 throughout and general weakness Psych thought process normal, cooperative and affect normal Appearance: appropriate Assessment & Plan Assessment/Plan (1) History of diabetes mellitus: (2) History of cirrhosis: (3) Pleural effusion on left: (4) Ascites: PLAN: Plan #Left pleural effusion * CTA chest showed large left pleural effusion with consolidation of the upper and lower lobes on the left with evidence of cirrhosis of the liver and hepatomegaly as well as mesenteric edema and ascites * s/p diagnostic thoracentesis. Had removal of approximately 2.09 L of fluid from the left pleural space. * Currently on room air. * Breathing treatments bronchodilators. * fluid analysis showed transudative fluid. This is likely due to the liver failure. 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 Imaging done showed hepatomegaly with mesenteric edema and ascites. * Gastroenterology consult. #Hemorrhoids: * States she has had some bleeding from the hemorrhoids. * Was to have Colonoscopy on Outpatient basis. * GI consulted this admission on account of acute on chronic anemia with hemoglobin dropping down to 6.8. * Hemoglobin is now 7.4 today #Hypertension: On losartan #Acute on chronic anemia * Hb was 6.8 on admission; she was transfused with 2 units of PRBCs. Hb is 7.4 today. * GI consulted;discussed with Dr Nash today, he is ok with patient being seen and worked up on outpatient basis. * #Pancytopenia: * WBC is 2.6. hemoglobin is 7.2 today with platelets of 93 today. * This is chronic and likely due to cirrhosis. Will monitor. Patient says she was due to get an iron infusion oncologists last Saturday. * I did speak to her oncologist Dr. Novak who confirmed this and is okay with patient being given IV iron sucrose 200 mg x 1. #TYpe 2 diabetes mellitus: ISS. Accuchecks ACHS. On trulicity on outpatient basis. #Depression: on duloxetine. DVT prophylaxis: SCDs. Heparin discontinued. Disposition: For likely DC today after she gets the iron infusion. Charges/Coding Visit Charges Inpatient E&M: 45066 Subs Hosp L2
[2024-03-01 11:31] VITALS: BP 122/70; PULSE 86; RESP 16; TEMP 36.6; O2SAT 94
[2024-03-01 11:36] LABS: Bedside Glucose 120 mg/dL (74-106)
--- NOTE | 2024-03-01 13:17 | DS.PCM_ITS ---
Providers Date of Admission: 02/27/24 Date of Discharge: 03/01/24 Primary Care Physician: Dr. Juan Locke, Consultations 02/27/24 19:05 Consult: Interventional Radiology Routine Consulting Provider: Timmy Maldonado Reason for Consult: Thoracentesis EMERGENT Consult: No Notified: Yes Date Notified: 02/27/24 Time Notified: 18:38 Method of Notification: electronic 02/28/24 07:57 Consult: Gastroenterology Routine Consulting Provider: [facility] Reason for Consult: acute on chronic anemia, cirrhosis EMERGENT Consult: No Notified: Yes Date Notified: 02/28/24 Time Notified: 07:57 Method of Notification: Text Reason For Visit: SHORTNESS OF BREATH Diagnosis Discharge Diagnosis (1) History of diabetes mellitus: Status: Acute Code(s): Z86.39 - Personal history of other endocrine, nutritional and metabolic disease (2) History of cirrhosis: Status: Acute Code(s): Z87.19 - Personal history of other diseases of the digestive system (3) Pleural effusion on left: Status: Acute Code(s): J90 - Pleural effusion, not elsewhere classified (4) Ascites: Status: Acute Code(s): R18.8 - Other ascites Plan #Left pleural effusion * CTA chest showed large left pleural effusion with consolidation of the upper and lower lobes on the left with evidence of cirrhosis of the liver and hepatomegaly as well as mesenteric edema and ascites * s/p diagnostic thoracentesis. Had removal of approximately 2.09 L of fluid from the left pleural space. * Currently on room air. * Breathing treatments bronchodilators. * fluid analysis showed transudative fluid. This is likely due to the liver failure. 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 Imaging done showed hepatomegaly with mesenteric edema and ascites. * Gastroenterology consult. #Hemorrhoids: * States she has had some bleeding from the hemorrhoids. * Was to have Colonoscopy on Outpatient basis. * GI consulted this admission on account of acute on chronic anemia with hemoglobin dropping down to 6.8. * Hemoglobin is now 7.4 today #Hypertension: On losartan #Acute on chronic anemia * Hb was 6.8 on admission; she was transfused with 2 units of PRBCs. Hb is 7.4 today. * GI consulted;discussed with Dr Friend today, he is ok with patient being seen and worked up on outpatient basis. * #Pancytopenia: * WBC is 2.6. hemoglobin is 7.2 today with platelets of 93 today. * This is chronic and likely due to cirrhosis. Will monitor. Patient says she was due to get an iron infusion oncologists last Saturday. * I did speak to her oncologist Dr. Novak who confirmed this and is okay with patient being given IV iron sucrose 200 mg x 1. #TYpe 2 diabetes mellitus: ISS. Accuchecks ACHS. On trulicity on outpatient basis. #Depression: on duloxetine. DVT prophylaxis: SCDs. Heparin discontinued. Disposition: For likely DC today after she gets the iron infusion. Medications at Discharge Home Medications duloxetine 60 mg capsule,delayed release 90 mg PO DAILY 11/06/17 ergocalciferol (vitamin D2) 1,250 mcg (50,000 unit) capsule 50,000 unit PO Q7D 11/06/17 losartan 50 mg tablet 50 mg PO DAILY BP 11/06/17 Handicap Placard See Rx Instructions .Route .COMPLEX Osteoarthritis #1 unit 03/06/19 albuterol sulfate 90 mcg/actuation aerosol inhaler 1 - 2 puff inhalation PRN PRN ALLERGIES 02/20/23 dulaglutide 0.75 mg/0.5 mL subcutaneous pen injector (Trulicity) 0.75 mg subcut QWEEK 10/10/23 ascorbic acid (vitamin C) 500 mg tablet 500 mg PO DAILY 02/13/24 cholecalciferol (vitamin D3) 25 mcg (1,000 unit) capsule 25 mcg PO DAILY 02/13/24 cyanocobalamin (vitamin B-12) 1,000 mcg capsule 1,000 mcg PO DAILY 02/13/24 omeprazole 20 mg capsule,delayed release 20 mg PO DAILY Heartburn 02/17/24 levothyroxine 125 mcg tablet (Synthroid) 125 mcg PO DAILY disorder of thyroid gland 02/27/24 furosemide 20 mg tablet (Lasix) 20 mg PO DAILY #30 tabs 03/01/24 Hospital Course Operations None Procedures Thoracentesis Summary of Care Provided Minutes Spent on Discharge: 55 Hospital Course: Patient is a 69-year-old female with past medical history as outlined was admitted through the ED on 02/27/2024 with a complaint of shortness of breath which had been going on for about 1 to 2 weeks with associated orthopnea. She ALSO noticed some active bleeding from the rectum which she thought was due to her hemorrhoids. She was scheduled to follow-up with GI on outpatient basis for EGD and colonoscopy. On admission labs were essentially unremarkable. CT of the chest showed no evidence of PE but showed a large left pleural effusion with consolidation of the left upper and lower lobes and evidence of cirrhosis with mesenteric edema and ascites. She was admitted and managed for pleural effusion which was thought to be due to fluid overload from the cirrhosis. She did have a history of nonalcoholic fatty liver disease with portal hypertension and was following up with gastroenterology about that as well. She had thoracentesis done with removal of 960 cc of fluid. Fluid analysis showed that fluid was an exudate. Hemoglobin did dip to 6.8 during admission and she was transfused with 2 units of packed red blood cells. Hemoglobin came up to 7.4. Gastroenterology was consulted; however since patient was clinically stable, recommendation was for her to follow-up with gastroenterology on outpatient basis. She was discharged home on 03/01/2024. She was given a prescription for p.o. Lasix 20 mg daily. She is follow-up with her primary care doctor and with gastroenterology within 1 to 2 weeks. Patient seen and examined prior to discharge. She had no active complaints and had an uneventful night. Review of systems otherwise negative. Labs and vitals reviewed. Home medication reviewed and reconciled. Physical Exam Const alert, oriented x3 and no apparent distress General Appearance: cooperative, comfortable, well kempt and well developed Orientation / Consciousness: awake HEENT normocephalic, head/scalp atraumatic, hearing grossly normal bilaterally, moist oral mucous membranes and oropharynx normal Eyes PERRL and EOMs intact bilaterally Neck no lymphadenopathy and supple Lymph Lymphatic: no lymphadenopathy noted and no lymphedema noted Resp Resp Narrative: Moderately diminished breath sounds on the left. No wheezes or crackles. On room air. Cardio regular rate, regular rhythm, S1 normal heart sound, S2 normal heart sound and no murmurs GI soft to palpation and non-tender GI Narrative: Abdomen mildly distended, positive shifting dullness Extremity normal to inspection, full ROM, normal capillary refill, no clubbing, cyanosis or edema and no calf tenderness Skin Skin Narrative: spider nevi present on the chest General Skin Exam: no breakdown and turgor normal Neuro oriented x3, CN's II-XII intact bilaterally, moves all extremities, no focal motor deficits, no sensory deficits noted and deep tendon reflexes 2+ bilaterally Motor Exam: strength 5/5 throughout and general weakness Psych thought process normal, cooperative and affect normal Appearance: appropriate Weight / BMI Weight Weight: 214 lb 4.629 oz Body Mass Index (BMI) 36.8 ABG / Lab / Microbiology Data 03/01/24 07:45 03/01/24 07:45 Laboratory: Laboratory Results - last 24 hr 02/29/24 16:37: POC Glucose 127 H 02/29/24 21:14: POC Glucose 147 H 03/01/24 06:19: POC Glucose 120 H 03/01/24 07:45: WBC 2.6 L, RBC 3.10 L, Hgb 7.4 L, Hct 26.0 L, MCV 83.9, MCH 23.9 L, MCHC 28.5 L, RDW Std Deviation 65.8 H, RDW Coeff of Cornelio 21.9 H, Plt Count 93 L, MPV 10.0, Immature Gran % (Auto) 0.000, Neut % (Auto) 52.8, Lymph % (Auto) 30.3, [place] % (Auto) 11.1 H, Eos % (Auto) 5.0, Baso % (Auto) 0.8, Absolute Neuts (auto) 1.4 L, Absolute Lymphs (auto) 0.79 L, Nucleated RBC % 0, Differential Comment SCANNED, Hypochromasia 1+, Anisocytosis 2+, Microcytosis 1+, Macrocytosis 1+, Acanthocytes (Spur) 1+, Sodium 141, Potassium 3.7, Chloride 115 H, Carbon Dioxide 21.0, Anion Gap 5, BUN 6 L, Creatinine 0.66, Estim Creat Clear Calc 74.07, Est GFR (MDRD) Af Amer 114, Est GFR (MDRD) Non-Af 94, BUN/Creatinine Ratio 9.1 L, Glucose 129 H, Calcium 8.5, Total Bilirubin 0.90, AST 20, ALT 19, Alkaline Phosphatase 108, Total Protein 4.9 L, Albumin 2.6 L, Globulin 2.3, Albumin/Globulin Ratio 1.1 03/01/24 11:18: POC Glucose 120 H Microbiology: Microbiology 02/27/24 21:00 Mucosa - Nasopharyngeal Respiratory Panel (PCR) - Final D/C Instructions Discharge Diet: Low fat / Low cholesterol Discharge Activity: Return to Normal Activity Weight Bearing Status: Weight bearing as tolerated Call your doctor if you observe: Fever of 101 or Higher, Shortness of breath, Dizziness, Swelling in the ankles and Chest pain Meaningful Use Info Meaningful Use Meaningful Use Diagnoses (Choose all that apply): None applicable Ischemic Stroke Statin Dosing Therapy Reference: STATIN DOSE THERAPY REFERENCE: * Patients > 75 years receive moderate or high dose statin therapy. * Patients 75 years or YOUNGER should receive HIGH intensity statin dose unless contraindicated. You will be required to document reason for non-treatment if statin daily dose does not meet guidelines. HIGH DOSE STATIN THERAPY DAILY Atorvastatin > than or = to 40 mg Rosuvastatin > than or = to 20 mg Amlodipine + Atorvastatin > than or = to 2.5/40 mg Ezetimibe + Simvastatin 10/80 mg Simvastatin 80mg Discharge Plan Admission Admit Date/Time: 02/27/24 18:34 Primary Reason for Your Visit: pleural effusion, acute on chronic anemia Attending Provider: Trisha Iraheta Primary Care Provider: Juan Locke Consulting Providers: Bree Jimenes; Timmy Maldonado Instructions Patient Instructions: KURT RN Thoracentesis Dc Discharge Orders/Prescriptions Prescriptions: New furosemide [Lasix] 20 mg tablet 20 mg PO DAILY Qty: 30 2RF Continued Handicap Placard See Rx Instructions .ROUTE .COMPLEX Qty: 1 0RF Rx Instructions: 12weeks Trulicity 0.75 mg/0.5 mL pen injector 0.75 mg subcut QWEEK ascorbic acid (vitamin C) 500 mg tablet 500 mg PO DAILY cholecalciferol (vitamin D3) 25 mcg (1,000 unit) capsule 25 mcg PO DAILY cyanocobalamin (vitamin B-12) 1,000 mcg capsule 1,000 mcg PO DAILY losartan 50 MG tablet 50 mg PO DAILY ergocalciferol (vitamin D2) 50,000 UNIT capsule 50,000 unit PO Q7D duloxetine 60 MG capsule,delayed release(DR/EC) 90 mg PO DAILY omeprazole 20 mg capsule,delayed release(DR/EC) 20 mg PO DAILY albuterol sulfate 90 mcg/actuation HFA aerosol inhaler 1 - 2 puff INHALATION PRN PRN (Reason: ALLERGIES) levothyroxine [Synthroid] 125 mcg tablet 125 mcg PO DAILY Referrals / Follow Up: Juan Locke DO [Primary Care Provider] - Within 1 Week FriendRonald DO [Med Staff - Active Staff] - Within 1 Week Disposition Disposition (needs filled in before D/C Order can be placed): Home, Self Care Charges/Coding Visit Charges Inpatient E&M: 83172 Disch Hosp >30min
[2024-03-02 16:16] LABS: Pathologist Comment/Body Fluid Reviewed
== END 2024-03-01 14:14 | disposition home or self-care (01) | DRG 433 ==
LOC: ED 18:23 → PCU 18:49
PROVIDERS: Admitting Provider Internal Medicine; Emergency Provider Emergency Medicine; PCP Student in an Organized Health Care Education/Training Program; Visit Provider Student in an Organized Health Care Education/Training Program
DX: K74.69 Other cirrhosis of liver (principal); J91.8 Pleural effusion in other conditions classified elsewhere; D61.818 Other pancytopenia; K76.6 Portal hypertension; R18.8 Other ascites; E11.9 Type 2 diabetes mellitus without complications; D50.9 Iron deficiency anemia, unspecified; F32.A Depression, unspecified; I10 Essential (primary) hypertension; K75.81 Nonalcoholic steatohepatitis (NASH); K64.9 Unspecified hemorrhoids; Z79.51 Long term (current) use of inhaled steroids; Z79.899 Other long term (current) drug therapy; Z87.891 Personal history of nicotine dependence
CPT/HCPCS: 32555; 36415; 71045; 71046; 71275; 80048; 80053; 82248; 82945; 82962; 83615; 83735; 84100; 84157; 84443; 84484; 85025; 85379; 85610; 86850; 86900; 86901; 86920; 87633; 88108; 88305; 88313; 89050; 93005; 93306; 97802; 99285; J7050; P9016; Q9967; A4216; J2916

== ENCOUNTER 2024-03-09 09:22 | Day surgery (SDC) | payer MEDICARE, SELFPAY ==
[2024-03-09] VITALS (8 sets, daily range): BP systolic 110–142; BP diastolic 73–86; PULSE 101–111; RESP 16–20; TEMP 36.3–36.7; O2SAT 93–99; BMI 33.7
--- NOTE | 2024-03-09 10:30 | COLBX_PTH ---
PATIENT: JANETTE MENESES LOC: EN U#:[id number] AGE/SX: 69/F ROOM: RE03/09/[address]: Dr. Ronald Nash DO : 1955 BED: DIS: 03/09/2024 SPEC #: [id number] RECD: 03/09/24 11:31 STATUS: MANNIE LAY #: [id number] TAYLOR: 03/09/24 10:[address]: Ronald Nash DEPT: SURGICAL PATHOLOGY RECD BY: Callie Mckeon ENTERED: 03/09/24 12:07 SP TYPE: COLON BX OTHR DR: Dr. Juan Locke DO Tissues: Rectum, NOS Procedures: Surgery Specimen Level IV HEADER OPERATION: Colonoscopy with biopsy and clip, EGD PRE-OP DIAGNOSIS: Cirrhosis, pancytopenia, ascites TISSUE SUBMITTED: Rectal biopsy MICROSCOPIC DIAGNOSIS Rectal biopsy: Fragments of colonic mucosa with extensive ulceration, acute and chronic inflammation, granulation tissue reaction and fibrinopurulent exudation. Negative for malignancy. See comment. / 03/10/2024 COMMENT Clinical correlation and appropriate follow up are necessary. MICROSCOPIC DESCRIPTION Slides are reviewed. GROSS DESCRIPTION Received in fixative is one container labeled with the patient's name and designated Rectal biopsy. The specimen consists of two irregular fragments of light giles soft tissue that in aggregate measure 0.5 x 0.3 x 0.1 cm. The specimen is totally submitted in one cassette. / 03/09/2024 TC:2 CPT:87638
--- NOTE | 2024-03-09 10:32 | PRE.ANES_ITS ---
ASA Classification* ASA Classification ASA Classification: 2 Assessment & Plan Anesthesia* Anesthesia Assessment Anesthesia Assessment: Discussed sedation and/or anesthesia options, risks, benefits, and alternatives with patient/parents/legal guardian/POA. Questions invited. The patient/parents/legal guardian/POA seems to understand and agrees to proceed with anesthesia plan. Reviewed the physical assessment, medical history, allergy history and patient home medications list prior to surgery/procedure/anesthetic and documented any changes. Performed airway and anesthesia risk assessments. 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 When Was Last Pacemaker Check QUESTION #4 FULL TEXT: You/Your Family Experience fever (hyperthermia) with Anesthesia Last Oral Intake Last Oral intake: Last Oral Intake NPO since 23:00 03/09/24 10:08 Meds taken in AM with sips of Yes 03/09/24 10:08 water? Meds patient instructed to SYNTHROID 03/09/24 10:08 take am of surgery PONV PONV - sales market leader: PONV - sales market leader Female Yes 03/03/24 11:39 HX of Motion Sickness No 03/03/24 11:39 HX of N/V After Surgery Yes 03/03/24 11:39 Non-Smoker Yes 03/03/24 11:39 Duration of Surgery greater No 03/03/24 11:39 than 60 minutes Number of Risk Factors 3 03/03/24 11:39 PONV Score Moderate Risk 03/03/24 11:39 Height & Weight Height & Weight: Anesthesia: Height & Weight Height 5 ft 4 in 03/09/24 10:08 Weight: 89.358 kg 03/09/24 10:08 Body Mass Index (BMI) 33.7 03/09/24 10:08 Respiratory Assessment Respiratory Assessment - sales market leader: Respiratory Tract Infection Hx - sales market leader Hx Respiratory Tract Infection No 03/03/24 11:39 STOP Sleep Apnea STOP Sleep Apnea - sales market leader: STOP Sleep Apnea - sales market leader Hx Hypertension Yes: CONTROLLED ON MED 03/03/24 11:39 Hx Sleep Apnea Yes 03/03/24 11:39 CPAP No 03/03/24 11:39 BIPAP No 03/03/24 11:39 Do you snore loudly (louder than talking or can be heard Do you often feel tired/ fatigued/ sleepy during daytime? Has anyone observed you stop breathing during sleep? STOP Results Positive 03/03/24 11:39 QUESTION #5 FULL TEXT : Do you snore loudly (louder than talking or can be heard through closed doors)? 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 Specify any problems Hx of Preganancy in last 3 No 03/03/24 11:39 Months Nurse Filling Out Transfusion VCHRISTIN 03/03/24 11:39 & Questions: Date: 03/03/24 03/03/24 11:39 Time: 11:41 03/03/24 11:39 Patient unable to answer at this time (ie. confused, unrespo /Reproduction History /Reproductive History - sales market leader: /Reproductive Hx- sales market leader Hx Now Gestational Age (in weeks): EDC: Hx Hx Para Hx Section SAB Active Medications Active Medications: Current Medications Generic Name Dose Route Start Last Admin Trade Name Freq PRN Reason Stop Dose Admin Lactated Ringer's 1,000 mls @ 15 mls/hr 03/09/24 09:45 IV .Q48H [facility] Anesthesia Focused Assessment* Temperature: 97.3 F Pulse Rate: 111 Blood Pressure: 142/83 Respiratory Rate: 16 Pulse Ox: 99 Oxygen Delivery Method: Room Air Airway Assessment Mouth opens: >3 cm Mallampati Score: I Teeth Condition: Intact Neck Range of motion (ROM): Full ROM Pertinent Findings EKG Pertinent Findings:: EKG done February 27, 2024 shows sinus tachycardia at 105 bpm ECHO Pertinent Findings:: Echocardiogram performed February 18, 2024 showed an ejection fraction of 60% Focused Labs Anesthesia Preop lab: CBC WBC 2.6 K/mm3 (4.4-11.0) L 03/01/24 07:45 RBC 3.10 M/mm3 (4.2-5.4) L 03/01/24 07:45 Hgb 7.4 g/dL (12.0-15.0) L 03/01/24 07:45 Hct 26.0 % (37-47) L 03/01/24 07:45 Plt Count 93 K/mm3 (150-450) L 03/01/24 07:45 CHEMISTRY Potassium 3.7 mmol/L (3.5-5.1) 03/01/24 07:45 Sodium 141 mmol/L (136-145) 03/01/24 07:45 Magnesium 2.2 mg/dL (1.6-2.6) 02/28/24 06:41 Phosphorus 3.0 mg/dL (2.5-4.9) 02/28/24 06:41 BUN 6 mg/dL (7-18) L 03/01/24 07:45 Creatinine 0.66 mg/dL (0.55-1.02) 03/01/24 07:45 Glucose 129 mg/dL (74-106) H 03/01/24 07:45 POC Glucose 120 mg/dL (74-106) H 03/01/24 11:18 TSH 3.51 uIU/mL (0.358-3.74) 02/28/24 06:41 COAG PT 16.1 SECONDS (11.7-14.9) H 02/28/24 06:41 Lab additional comments: Patient had an iron infusion after this low hemoglobin. Labs were not rechecked Review of Systems (Anesthesia) ROS Narrative System reviewed and no additional complaints, except as documented. [facility] Medical History History of diabetes mellitus History of cirrhosis Anemia Pleural effusion on left Exertional dyspnea Chest pain Ascites Wears contact lenses Wears glasses Post-menopausal Anxiety Alcohol use Thyroid disease History of renal disease Anemia Back pain History of diverticulitis Gastric reflux Former smoker Sleep apnea Chronic cough S/p nephrectomy Depression Migraines HTN (hypertension) Diabetes Home Medications ?Medication ?Instructions ?Recorded ?Last Taken ?Type duloxetine 60 mg capsule,delayed 60 mg PO DAILY 11/06/17 Unknown History release ergocalciferol (vitamin D2) 1,250 50,000 unit PO Q7D 11/06/17 Unknown History mcg (50,000 unit) capsule losartan 50 mg tablet 50 mg PO DAILY BP 11/06/17 Unknown History Handicap Placard See Rx Instructions .Route 03/06/19 Unknown Rx .COMPLEX Osteoarthritis #1 unit albuterol sulfate 90 mcg/actuation 1 - 2 puff inhalation PRN PRN 02/20/23 Unknown History aerosol inhaler ALLERGIES dulaglutide 0.75 mg/0.5 mL 0.75 mg subcut QWEEK 10/10/23 Unknown History subcutaneous pen injector (Trulicity) ascorbic acid (vitamin C) 500 mg 500 mg PO DAILY 02/13/24 Unknown History tablet cholecalciferol (vitamin D3) 25 25 mcg PO DAILY 02/13/24 Unknown History mcg (1,000 unit) capsule cyanocobalamin (vitamin B-12) 1,000 mcg PO DAILY 02/13/24 Unknown History 1,000 mcg capsule omeprazole 20 mg capsule,delayed 20 mg PO DAILY Heartburn 02/17/24 Unknown History release levothyroxine 125 mcg tablet 125 mcg PO DAILY disorder of 02/27/24 03/09/24 History (Synthroid) thyroid gland furosemide 20 mg tablet (Lasix) 20 mg PO DAILY #30 tabs 03/01/24 Unknown Rx fexofenadine 180 mg tablet 180 mg PO DAILY 03/03/24 Unknown History (Aaliyah Allergy) Allergy/AdvReac Type Severity Reaction Status Date / Time adhesive tape Allergy Rash Verified 03/09/24 10:12 Family History Father Colon cancer Brother Cancer bladder Surgical History History of thoracentesis Hx of colonoscopy History of esophagogastroduodenoscopy (EGD) S/P shoulder surgery S/P hysterectomy History of lobectomy of thyroid Social History Smoking Status: Former smoker alcohol intake: current alcohol intake frequency: holidays/special occasions only Addt'l Information Additional Findings: Patient has portal hypertension from her cirrhosis. She has a history of splenomegaly and pancytopenia
[2024-03-09] MEDS: Lactated Ringers 1,000 ML 15 ML IV (10:39)
--- NOTE | 2024-03-09 10:54 | PCM.HP.BLA ---
History and Physical Date of Admission: 03/09/24 hemorrhoids/rectal bleeding Details: JANETTE MENESES, is a 69 F who presents to the office today for initial consult. *BGI established 6.3.24 pt reports that she has been having loose stools with some constipation for about 2 years; pt reports occasional blood in the stool but states it is from her external hemorrhoids. Pt reports on and off abdominal pain and bloating. Pt reports a rash on her L leg. Pt reports being more lightheaded recently. ROS Const Constitutional: Positive for fatigue and weight change (weight loss ); No fever(s) ENT ENT: No difficulty swallowing Gastro GI: Positive for bloating, constipation, diarrhea, heartburn and excessive flatus; No abdominal pain, belching, change in bowel habits, change in stool character, coffee ground emesis, cramping, difficulty swallowing, feeling full early, incontinent of stools, Vomiting blood/hematemesis, Blood in stool, loose stools, Black,tarry stools, nausea/dyspepsia, pain with swallowing, vomiting or other Musc Musculoskeletal: No joint pain Skin Skin: Positive for dry skin, itchy eyes and rash; No yellowing of the eye Psych Psychiatric: Positive for anxiety and Positive for depression Endo Endocrine: Positive for fatigue and weight change (weight loss ) Aller/Imm Allergy/Immunologic: Positive for itchy eyes Ketan/Lymp Hematologic/Lymphatic: No easy bleeding or easy bruising Exam Const General: cooperative and comfortable Nutritional Appearance: average body habitus and well nourished [facility] Head: normal to inspection Ears: hearing grossly normal bilaterally Nose: external nose normal Face and sinus: normal facial exam Mouth: oral mucosae normal Throat: posterior oropharynx normal Eyes General: appearance normal, both eyes and all related structures Neck Neck: normal visual inspection Chest Chest palpation & inspection: normal inspection of the chest and normal palpation of entire chest wall Resp Effort & Inspection: normal respiratory effort Auscultation: Bilateral: Clear to Auscultation Cardio Palpation: normal PMI Rate: regular rate Rhythm: regular rhythm GI Inspection: normal to inspection Auscultation: normal bowel sounds Percussion: normal to percussion Palpation: no hepatosplenomegaly Skin General: no rashes or lesions noted Neuro General: patient alert Extrem General: normal to inspection Psych Affect: normal affect Assessment and Plan Assessment and Plan (1) Cirrhosis: Status: Acute Plan: The patient is [id number] with a new diagnosis of liver cirrhosis, unknown cause. 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 End-stage liver disease. Of course, we need to find out the cause of the liver cirrhosis. We do not have hepatitis panel yet and we do not have information such as a liver biopsy. We do not have any information of any type of investigation in the past. We do have a CT scan abdomen pelvis along with having pancytopenia which leads to cirrhosis in both cases because the CT scan abdomen pelvis did say cirrhosis along with splenomegaly. She has no family history of liver disease. She does not drink any alcohol. Her current MELD is 20. She is a child Reich class a at this time. She does have esophageal varices which was seen on previous endoscopy by Dr. Garcia. This was done back in 2022. She also has rectal veins with internal and external hemorrhoids as seen on her previous endoscopy. She denies any itching, rash, ascites, trouble sleeping, trouble urinating. She is also having 1-2 bowel movements a day. We will order hepatitis panel and alpha-fetoprotein level. We will also get an ultrasound of the liver , but obviously no tumor was found on this exam of the liver. We have to figure out hepatitis status for another reason if he needs vaccination against hepatitis A and B. Until now we do not know exactly what the cause of the patient's end-stage liver disease is and my differential diagnosis probably is CLARK. The patient denied any excessive alcohol intake, but I could not preclude alcohol-related liver cirrhosis also. We will need to look for nuclear antibody if it is not done before. PSC is extremely unlikely but possible. Lgoan disease also possible diagnosis but again, we first have to figure out if these tests were done for the patient or not. Alpha1-antitrypsin deficiency will be extremely unlikely because the patient has no lung problem. On his end-stage liver disease we already know that he had low platelet count splenomegaly. We know that his bilirubin is elevated and albumin is very low. I suspect that at the time of admission to the hospital the patient presented with encephalopathy. We do not know if INR was checked to look for coagulopathy. The patient had an EGD in 2022 as well as colonoscopy . We have to have this result to evaluate if the patient had any varices and if he needs any intervention for that. At this point in time, I am not recommending lactulose. The patient tolerated it well; no diarrhea at this point in time. Her blood pressure is stable at this time so not recommending nadolol therapy,. Therefore we will pursue banding for primary variceal prophylaxis. She will also undergo colonoscopy with banding of her rectal varices. Again, the patient and his were advised to contact all offices they have seen before to get information about what tests were already done and if on the next visit in 2 weeks we still do not have any information we will need to repeat all these tests I mentioned above. We also discussed nutrition issues. She also was advised to stay away from alcohol. (2) Pancytopenia: Status: Acute (3) Ascites: Status: Acute Orders: Orders ANCA Today D61.818 - Other pancytopenia, K74.60 - Unspecified cirrhosis of liver, R18.8 - Other ascites Anti-Mitochondrial AB Today D61.818 - Other pancytopenia, K74.60 - Unspecified cirrhosis of liver, R18.8 - Other ascites Anti-Smooth Muscle ABS Today D61.818 - Other pancytopenia, K74.60 - Unspecified cirrhosis of liver, R18.8 - Other ascites Celiac Disease Profile Today D61.818 - Other pancytopenia, K74.60 - Unspecified cirrhosis of liver, R18.8 - Other ascites Ceruloplasmin Today D61.818 - Other pancytopenia, K74.60 - Unspecified cirrhosis of liver, R18.8 - Other ascites Comprehensive Metabolic Profil Today D61.818 - Other pancytopenia, K74.60 - Unspecified cirrhosis of liver, R18.8 - Other ascites CRP Today D61.818 - Other pancytopenia, K74.60 - Unspecified cirrhosis of liver, R18.8 - Other ascites Erythrocyte Sed Rate Today D61.818 - Other pancytopenia, K74.60 - Unspecified cirrhosis of liver, R18.8 - Other ascites Copper, Serum or Plasma Today D61.818 - Other pancytopenia, K74.60 - Unspecified cirrhosis of liver, R18.8 - Other ascites Ferritin Today D61.818 - Other pancytopenia, D64.9 - Anemia, unspecified, K74.60 - Unspecified cirrhosis of liver, R18.8 - Other ascites Hepatitis Panel Acute Today D61.818 - Other pancytopenia, K74.60 - Unspecified cirrhosis of liver, R18.8 - Other ascites Ammonia Today D61.818 - Other pancytopenia, K74.60 - Unspecified cirrhosis of liver, R18.8 - Other ascites AFP, Tumor Marker Today D61.818 - Other pancytopenia, K74.60 - Unspecified cirrhosis of liver, R18.8 - Other ascites HIV - W[facility] Today D61.818 - Other pancytopenia, K74.60 - Unspecified cirrhosis of liver, R18.8 - Other ascites, R63.4 - Abnormal weight loss Transferrin Today D50.9 - Iron deficiency anemia, unspecified, D61.818 - Other pancytopenia, K74.60 - Unspecified cirrhosis of liver, R18.8 - Other ascites Hemoglobin A1c Today D61.818 - Other pancytopenia, E11.9 - Type 2 diabetes mellitus without complications, K74.60 - Unspecified cirrhosis of liver, R18.8 - Other ascites Iron Binding Capacity,Total Today D50.9 - Iron deficiency anemia, unspecified, D61.818 - Other pancytopenia, K74.60 - Unspecified cirrhosis of liver, R18.8 - Other ascites Prothrombin Time w/INR Today D61.818 - Other pancytopenia, K74.60 - Unspecified cirrhosis of liver, R18.8 - Other ascites DELVIN + Protein Elect, Serum Today D61.818 - Other pancytopenia, K74.60 - Unspecified cirrhosis of liver, R18.8 - Other ascites I have examined the patient and the H&P has been reviewed. There are no clinical changes since date of exam.
--- NOTE | 2024-03-09 11:27 | PCM.POST.ANE ---
Anesthesia: Postop Eval I Current Vital Signs Temperature: 98 F Pulse Rate: 104 Blood Pressure: 126/73 Respiratory Rate: 16 Pulse Ox: 94 Oxygen Delivery Method: Room Air Assessment Airway patent: Yes Spontaneous unlabored respirations: Yes Mental status: Asleep nausea: No Vomiting: No Anesthesia Complication: No Fluid Hydration Crystalloid volume administer (ml): 700 Total IV fluid infused: 700 Progress Note Anesthesia document: Postop Eval 1 completed: Yes
--- NOTE | 2024-03-09 11:30 | OP.EGD_ITS ---
Patient Name: Barbara Ledesma Procedure Date: 03/09/2024 10:51 AM Date of : 1955 Age: 69 Procedure: Upper GI endoscopy Indications: Cirrhosis with suspected esophageal varices Providers: Ronald Nash DO Medicines: Monitored Anesthesia Care Patient Profile: This is a 69 year old female. Refer to note in patient chart for documentation of history and physical. Patient has symptoms of chronic dysphagia. Complications: No immediate complications. Procedure: Pre-Anesthesia Assessment: - Prior to the procedure, a History and Physical was performed, and patient medications and allergies were reviewed. The patient is competent. The risks and benefits of the procedure and the sedation options and risks were discussed with the patient. All questions were answered and informed consent was obtained. Patient identification and proposed procedure were verified by the physician in the pre-procedure area. Mental Status Examination: alert and oriented. Airway Examination: normal oropharyngeal airway and neck mobility. Respiratory Examination: clear to auscultation. CV Examination: normal. Prophylactic Antibiotics: The patient does not require prophylactic antibiotics. Prior Anticoagulants: The patient has taken no anticoagulant or antiplatelet agents. ASA Grade Assessment: III - A patient with severe systemic disease. After reviewing the risks and benefits, the patient was deemed in satisfactory condition to undergo the procedure. The anesthesia plan was to use monitored anesthesia care (MAC). Immediately prior to administration of medications, the patient was re-assessed for adequacy to receive sedatives. The heart rate, respiratory rate, oxygen saturations, blood pressure, adequacy of pulmonary ventilation, and response to care were monitored throughout the procedure. The physical status of the patient was re-assessed after the procedure. After obtaining informed consent, the endoscope was passed under direct vision. Throughout the procedure, the patient's blood pressure, pulse, and oxygen saturations were monitored continuously. The colonoscope was introduced through the mouth, and advanced to the second part of duodenum. The upper GI endoscopy was accomplished without difficulty. The patient tolerated the procedure well. Scope In: 11:00:05 AM Scope Out: 11:03:43 AM Total Procedure Duration Time 0 hours 3 minutes 38 seconds Findings: Three columns of grade III varices with no bleeding and no stigmata of recent bleeding were found in the middle third of the esophagus and in the lower third of the esophagus, 35 cm from the incisors. They were 20 mm in largest diameter. No red batsheva signs were present. Severe portal hypertensive gastropathy was found in the cardia, in the gastric fundus, in the gastric body, on the anterior wall of the stomach, on the greater curvature of the stomach and on the lesser curvature of the stomach. No gross lesions were noted in the first portion of the duodenum. Impression: - Grade III esophageal varices with no bleeding and no stigmata of recent bleeding. - Portal hypertensive gastropathy. - No gross lesions in the first portion of the duodenum. - No specimens collected. Recommendation: - Discharge patient to home. - Resume previous diet. - Continue present medications. Procedure Code(s): --- Professional --- 56897, Esophagogastroduodenoscopy, flexible, transoral; diagnostic, including collection of specimen(s) by brushing or washing, when performed (separate procedure) CPT copyright 2021 [employer]. All rights reserved. The codes documented in this report are preliminary and upon aeronautical test engineer review may be revised to meet current compliance requirements. Ronald Nash DO 03/09/2024 11:30:11 AM This report has been signed electronically. Number of Addenda: 1 Note Initiated On: 03/09/2024 10:51 AM Addendum Number: 1 Addendum Date: 03/09/2024 11:34:05 AM She needs to be referred to a tertiary care center for TIPS procedure. She may be able to be part of a banding program. However it would need to be done at a institution where they have interventional radiology backup. Ronald Nash DO 03/09/2024 11:34:45 AM This report has been signed electronically.
--- NOTE | 2024-03-09 11:30 | OP.CCLET_ITS ---
03/09/2024 Juan Locke [address] [place] [address] Re : Upper GI endoscopy procedure for Barbara Ledesma Dear Dr. Locke This procedure was performed on Saturday, March 09, 2024. My impressions and recommendations are as follows: Impressions : - Grade III esophageal varices with no bleeding and no stigmata of recent bleeding. - Portal hypertensive gastropathy. - No gross lesions in the first portion of the duodenum. - No specimens collected. Recommendations : - Discharge patient to home. - Resume previous diet. - Continue present medications. My findings are described in the full procedure note, which is enclosed. If I can be of further assistance, please feel free to contact me at . Sincerely, Ronald Nash, 03/09/2024 11:30:11 AM This report has been signed electronically.
--- NOTE | 2024-03-09 11:42 | OP.COLON_ITS ---
Patient Name: Barbara Ledesma Procedure Date: 03/09/2024 11:03 AM Date of : 1955 Age: 69 Procedure: Colonoscopy Indications: Screening for colorectal malignant neoplasm Providers: Ronald Nash DO Medicines: Monitored Anesthesia Care Patient Profile: This is a 69 year old female. Refer to note in patient chart for documentation of history and physical. Patient has symptoms of chronic dysphagia. Last Colonoscopy: date unknown. Unable to locate last colonoscopy report. Complications: No immediate complications. Procedure: Pre-Anesthesia Assessment: - Prior to the procedure, a History and Physical was performed, and patient medications and allergies were reviewed. The patient is competent. The risks and benefits of the procedure and the sedation options and risks were discussed with the patient. All questions were answered and informed consent was obtained. Patient identification and proposed procedure were verified by the physician in the pre-procedure area. Mental Status Examination: alert and oriented. Airway Examination: normal oropharyngeal airway and neck mobility. Respiratory Examination: clear to auscultation. CV Examination: normal. Prophylactic Antibiotics: The patient does not require prophylactic antibiotics. Prior Anticoagulants: The patient has taken no anticoagulant or antiplatelet agents. ASA Grade Assessment: III - A patient with severe systemic disease. After reviewing the risks and benefits, the patient was deemed in satisfactory condition to undergo the procedure. The anesthesia plan was to use monitored anesthesia care (MAC). Immediately prior to administration of medications, the patient was re-assessed for adequacy to receive sedatives. The heart rate, respiratory rate, oxygen saturations, blood pressure, adequacy of pulmonary ventilation, and response to care were monitored throughout the procedure. The physical status of the patient was re-assessed after the procedure. After I obtained informed consent, the scope was passed under direct vision. Throughout the procedure, the patient's blood pressure, pulse, and oxygen saturations were monitored continuously. The colonoscope was introduced through the anus and advanced to the cecum, identified by appendiceal orifice and ileocecal valve. The colonoscopy was performed without difficulty. The patient tolerated the procedure well. The quality of the bowel preparation was adequate. The ileocecal valve, appendiceal orifice, and rectum were photographed. Scope In: 11:05:23 AM Scope Withdrawal Time 0 hours 10 minutes 29 seconds Scope Out: 11:21:01 AM Total Procedure Duration Time 0 hours 15 minutes 38 seconds Findings: Hemorrhoids were found on perianal exam. A patchy area of moderately hemorrhagic and inflamed mucosa was found in the rectum. Biopsies were taken with a cold forceps for histology. Verification of patient identification for the specimen was done. Estimated blood loss was minimal. To prevent bleeding post-intervention, one hemostatic clip was successfully placed. Clip invoicing specialist: [email or web address]. There was no bleeding at the end of the procedure. Moderate rectal prolapse was present. Many diverticula were found in the recto-sigmoid colon and sigmoid colon. A 10 mm polyp was found in the sigmoid colon. The polyp was sessile. Impression: - Hemorrhoids found on perianal exam. - Hemorrhagic and inflamed mucosa in the rectum. Biopsied. - Rectal prolapse. - Diverticulosis in the recto-sigmoid colon and in the sigmoid colon. Recommendation: - Discharge patient to home. - Resume previous diet. - Continue present medications. - Await pathology results. - Patient has a contact number available for emergencies. The signs and symptoms of potential delayed complications were discussed with the patient. Return to normal activities tomorrow. Written discharge instructions were provided to the - Repeat colonoscopy in 5 years for surveillance. - Return to GI office [Return day]. Procedure Code(s): --- Professional --- 52732, Colonoscopy, flexible; with biopsy, single or multiple CPT copyright 2021 [employer]. All rights reserved. The codes documented in this report are preliminary and upon coil taper review may be revised to meet current compliance requirements. Ronald Nash DO 03/09/2024 11:41:37 AM This report has been signed electronically. Number of Addenda: 0 Note Initiated On: 03/09/2024 11:03 AM
--- NOTE | 2024-03-09 11:42 | OP.CCLET_ITS ---
03/09/2024 Juan Locke [address] [place] [address] Re : Colonoscopy procedure for Barbara Ledesma Dear Dr. Locke This procedure was performed on Saturday, March 09, 2024. My impressions and recommendations are as follows: Impressions : - Hemorrhoids found on perianal exam. - Hemorrhagic and inflamed mucosa in the rectum. Biopsied. - Rectal prolapse. - Diverticulosis in the recto-sigmoid colon and in the sigmoid colon. Recommendations : - Discharge patient to home. - Resume previous diet. - Continue present medications. - Await pathology results. - Patient has a contact number available for emergencies. The signs and symptoms of potential delayed complications were discussed with the patient. Return to normal activities tomorrow. Written discharge instructions were provided to the - Repeat colonoscopy in 5 years for surveillance. - Return to GI office [Return day]. My findings are described in the full procedure note, which is enclosed. If I can be of further assistance, please feel free to contact me at . Sincerely, Ronald Nash, 03/09/2024 11:41:37 AM This report has been signed electronically.
[2024-03-09 12:24] LABS: Bedside Glucose 142 mg/dL (74-106)
--- NOTE | 2024-03-09 13:22 | PCM.POSTANE2 ---
Anesthesia Postop Eval I Sum Postop Eval Completion status Anesthesia document: Postop Eval 1 completed: Yes Anesthesia Postop Eval I Summary Anesthesia Postop Eval I Summary: Anesthesia Postop Eval I: Assessment Summary Airway patent Yes 03/09/24 11:31 [email or web address] Spontaneous unlabored Yes 03/09/24 11:31 [email or web address] respirations Mental status Asleep 03/09/24 11:31 [email or web address] nausea No 03/09/24 11:31 [email or web address] Vomiting No 03/09/24 11:31 [email or web address] Anesthesia Postop Eval I: Fluid Summary Crystalloid volume administer 700 03/09/24 11:31 [email or web address] (ml) Colloids volume administered ( ml) Blood Product volume administered (ml) Total IV fluid infused 700 03/09/24 11:31 [email or web address] Anesthesia Postop Eval I: Summary Notes Anesthesia Complication No 03/09/24 11:31 [email or web address] Anesthesia Complication Comment: Post-operative progress note Anesthesia: Postop Eval II Evaluation Mental status: Awake and Calm Pain Level: 0 nausea: No Vomiting: No Complications Anesthesia Complication: No
== END 2024-03-09 12:31 | disposition home or self-care (01) ==
LOC: EN 09:28 → AC 09:28
PROVIDERS: PCP Student in an Organized Health Care Education/Training Program; Referring Provider Student in an Organized Health Care Education/Training Program; Visit Provider Internal Medicine Gastroenterology
PROC: 0DJD8ZZ Inspection of Lower Intestinal Tract, Via Natural or Artificial Opening Endoscopic (ICD-10-PCS; CPT 45378; principal; 2024-03-09 10:25)
DX: Z12.11 Encounter for screening for malignant neoplasm of colon (principal); D61.818 Other pancytopenia; I85.00 Esophageal varices without bleeding; K76.6 Portal hypertension; K74.60 Unspecified cirrhosis of liver; E11.9 Type 2 diabetes mellitus without complications; K64.9 Unspecified hemorrhoids; K57.30 Diverticulosis of large intestine without perforation or abscess without bleeding; K62.3 Rectal prolapse; R18.8 Other ascites; D50.9 Iron deficiency anemia, unspecified; K62.89 Other specified diseases of anus and rectum
CPT/HCPCS: 43235; 45380; 82962; 87493; 87506; 88305; J7120; J2405

== ENCOUNTER → 2024-03-20 | Outpatient (CLI) | payer MEDICARE, SELFPAY ==
[2024-03-20] VITALS (14 sets, daily range): BP systolic 111–149; BP diastolic 64–81; PULSE 91–97; RESP 12–16; TEMP 36.6; O2SAT 92–98; BMI 34.7
--- NOTE | 2024-03-20 | LIVB_PTH ---
PATIENT: JANETTE MENESES LOC: CT U#:[id number] AGE/SX: 69/F ROOM: RE03/20/[address]: Dr. Ronald Nash DO : 1955 BED: DIS: 03/20/2024 SPEC #: [id number] RECD: 03/20/24 10:14 STATUS: MANNIE LAY #: [id number] TAYLOR: 03/20/24 00:[address]: Ronald Nash DEPT: SURGICAL PATHOLOGY RECD BY: Daniella Ramires ENTERED: 03/20/24 12:38 SP TYPE: LIVER BX GUERO DR: Dr. Juan Locke, DO Marie Castañeda, PUBLIC SPEAKER-C Tissues: Liver, NOS Procedures: Surgery Specimen Level V HEADER OPERATION: CT guided liver biopsy PRE-OP DIAGNOSIS: Cirrhosis TISSUE SUBMITTED: Jacqueline hwang x2 core left lobe liver MICROSCOPIC DIAGNOSIS Liver, CT guided core biopsy: Liver parenchymal tissue with macro- and microvesicular steatosis, bridging fibrosis and suspicious for early cirrhosis. See microscopic description and comment. / 03/23/2024 COMMENT Correlation with clinical, radiologic and laboratory findings and appropriate follow up are necessary. MICROSCOPIC DESCRIPTION Slides are reviewed. This specimen shows liver parenchymal tissue with focal distortion lobular architecture. Hepatocytes show macro- and microvesicular steatosis. Portal areas show mild to moderate chronic inflammation. Interface inflammation is not seen. Iron stains show 2+ iron in the Kupffer cells. Reticulin and Trichrome stains highlights the increase portal, periportal and bridging fibrosis. Focal area shows nodule formation is noted, suspicious for early cirrhosis. PAS stain with and without diastase do not show any abnormal accumulation of protein. All stains are performed with appropriate matched controls. GROSS DESCRIPTION Received in fixative is one container labeled with the patient's name and designated Liver biopsy. The specimen consists of three elongated fragments of giles soft tissue each measuring 1.5cm in length and 0.1cm in diameter. The entire specimen is submitted in one cassette. / 03/20/2024 TC:5 CPT:69330,41297D7
[2024-03-20 09:10] LABS: Platelet Count 143 K/mm3 (150-450)
[2024-03-20 09:23] LABS: International Normalized Ratio 1.2; Prothrombin Time (Protime)PT. 15.3 SECONDS (11.7-14.9)
[2024-03-20 09:24] LABS: Partial Thromboplast Time 31.8 Seconds (24.1-36.2)
[2024-03-20] MEDS: 0.9% Normal Saline (250mL Bag) 250 ML 15 ML IV (09:44)
[2024-03-20] MEDS: Midazolam 2 MG/2 ML Syringe IV ×2 (09:45→09:53)
[2024-03-20] MEDS: fentaNYL 100 MCG/2 ML Ampul IV (09:46)
[2024-03-20] MEDS: Lidocaine 2% (20 ml mdv) 20 ML Vial INFILT (09:55)
--- NOTE | 2024-03-20 10:19 | PCM.OP.PRO ---
Procedure Report Date of Procedure: 03/20/24 Assessment & Plan Assessment/Plan (1) Cirrhosis: QUALIFIERS: Hepatic cirrhosis type: unspecified hepatic cirrhosis Ascites presence: unspecified Qualified Code(s): K74.60 - Unspecified cirrhosis of liver PLAN: PROCEDURE: CT DIRECTED CORE LIVER BIOPSY ORDERING PROVIDER: Dr. Nash INDICATION: Female, 69 years old. Liver cirrhosis. PROVIDER: EMBER Amaral CONSENT: Written informed consent was obtained having explained the risks, benefits and alternatives in detail with the patient who accepted the risks and agreed to proceed. Laboratory review and clinical assessment was performed. PRE-PROCEDURE SEDATION ASSESSMENT: Current history and physical dictated by referring provider and reviewed. No clinical changes since date of exam. Patient has a Mallampati Score of Class 1 and ASA Class of 2. PROCEDURAL SEDATION PROTOCOL: The Drugs used were: 2 mg Versed, IV, and 50 mcg Fentanyl, IV. The sedation time was: 15 minutes, starting at 9:45 AM and terminated at 10:00 AM. The procedural sedation protocol was independently monitored by the department nurse. RADIATION DOSAGE (If Supplied By Facility): CTDIvol = 29.22 mGy, DLP = 685.24 mGycm Individualized dose optimization techniques were used for this CT. TECHNIQUE: The patient was placed in a supine position. Using CT image guidance with image documentation, a suitable location in the left lobe of the liver was identified. The skin surface was prepped with betadine and draped in a sterile fashion. 2% lidocaine was used for local anesthesia. Using an anterior approach, puncture of the liver was uneventful with an 18-gauge core needle system. 3, 18-gauge core samples were obtained, and submitted in formalin to the pathologist for further assessment. The needle was removed. An occlusive sterile dressing was applied. Patient tolerated the procedure well, and returned to the holding bay for nursing monitoring. IMPRESSION: 1. CT directed core needle biopsy of the liver, using CT image guidance with image documentation as described. 2. Procedural Sedation protocol utilized with independent monitoring. Procedures Radiology Radiology CT Procedures: [id number] Biopsy Liver Multi Select Codes Radiology Radiology CT Procedures: [id number] CT guidance parenchymal tissue
== END | disposition home or self-care (01) ==
PROVIDERS: Nurse Practitioner Acute Care; PCP Student in an Organized Health Care Education/Training Program; Referring Provider Internal Medicine Gastroenterology; Visit Provider Internal Medicine Gastroenterology
DX: K76.0 Fatty (change of) liver, not elsewhere classified (principal)
CPT/HCPCS: 47000; 36415; 77012; 85049; 85610; 85730; 88307; 99156; J7050; A4216

== ENCOUNTER 2024-03-31 14:06 | Observation (INO) | payer MEDICARE, SELFPAY ==
[2024-03-31] VITALS (8 sets, daily range): BP systolic 122–151; BP diastolic 66–84; PULSE 89–103; RESP 16–18; TEMP 36–36.8; O2SAT 90–100; BMI 35.4; BMI 35.3
--- NOTE | 2024-03-31 15:06 | RAD_ITS ---
STUDY: X-RAY CHEST REASON FOR EXAM: Female, 69 years old. Shortness of breath TECHNIQUE: Single AP portable view of the chest. COMPARISON: Comparison is made with prior study dated February 28, 2024. FINDINGS: There is evidence of a moderate-sized left pleural effusion with underlying atelectasis. The right lung is clear. Normal size heart. Normal mediastinum and yuly. Normal visualized pulmonary arteries. Normal visualized aortic arch and descending thoracic aorta. There are diffuse degenerative changes of the visualized thoracic spine. Normal visualized ribs, clavicles, and shoulders. There is no demonstrated abnormality of the visualized soft tissue structures of the upper abdomen. RAD/Chest 1 View (Portable) IMPRESSION: Moderate-sized left pleural effusion with underlying atelectasis at the left lung base. Electronically Signed: Timmy Maldonado MD at 15:37 EDT ,
[2024-03-31 15:37] LABS: Absolute Neutrophil Count 1.8 X10^3/uL (2.0-7.7); Basophil# 0.01 X10^3/uL; Basophil% 0.4 % (0-1); Eosinophil# 0.08 X10^3/uL; Eosinophils% 2.9 % (0-5); Hematocrit 30.7 % (37-47); Hemoglobin 9.2 g/dL (12.0-15.0); Lymphocyte % 21.9 % (19-41); Mean Corpuscular Hgb 25.8 pg (27.0-32.0); Mean Platelet Vol. 10.3 fl (6.2-12.0); Monocyte# 0.25 X10^3/uL; Monocyte% 9.1 % (0-10); NRBC Flagged by Analyzer 0 % (0-5); Neutrophil % 65.7 % (47-70); POSITIVE COUNT YES; POSITIVE DIFFERENTIAL YES; POSITIVE MORPHOLOGY YES; Platelet Count 79 K/mm3 (150-450); RBC Distribution Width SD 66.3 fl (35.1-43.9); Red Blood Count 3.57 M/mm3 (4.2-5.4); White Blood Count 2.7 K/mm3 (4.4-11.0)
[2024-03-31 15:40] LABS: Differential Indicated SCAN CRITERIA MET
[2024-03-31 15:43] LABS: BNP,B-Type NATRIURETIC PEPTIDE 21.6 pg/mL (0-100)
[2024-03-31 15:46] LABS: ALB/GLOB Ratio 1.1 RATIO (0.9-2.4); AST(SGOT) 31 U/L (15-37); Alanine Aminotransfer ALT/SGPT 21 U/L (13-56); Alkaline Phosphatase 152 U/L (45-117); Anion Gap 5 (5-15); BUN 6 mg/dL (7-18); Calcium,Total 8.9 mg/dL (8.5-10.1); Chloride 108 mmol/L (98-107); Creatinine, Serum 0.86 mg/dL (0.55-1.02); EST Glomerular Filtration Rate 69 mL/min (>60); Est Glom Filt Rate - Afr Amer 84 mL/min (>60); Estimated Creatinine Clearance 65.07 ml/min; Globulin 2.8 g/dL (2.2-4.2); Glucose 131 mg/dL (74-106); Potassium 3.6 mmol/L (3.5-5.1); Protein, Total 5.8 g/dL (6.4-8.2); Sodium Level 140 mmol/L (136-145)
[2024-03-31 15:58] LABS: International Normalized Ratio 1.4; Prothrombin Time (Protime)PT. 16.8 SECONDS (11.7-14.9)
[2024-03-31 15:59] LABS: Partial Thromboplast Time 30.9 Seconds (24.1-36.2)
[2024-03-31 16:09] LABS: Anisocytosis 2+; Crenated RBC 1+; Hypochromasia 2+; Polychromasia RARE
[2024-03-31 16:10] LABS: Differential Comment SCANNED
--- NOTE | 2024-03-31 17:05 | ED.VIS.DYS ---
HPI History of Present Illness Chief Complaint: Shortness of Breath Narrative Narrative: 69-year-old female past medical history of nonalcoholic liver cirrhosis states that she was admitted to the hospital last month and they performed a thoracentesis and got approximately 2 L off of her lung. She presents today because over the last few days to weeks she has been having increasing shortness of breath. She saw her primary care provider at the [facility], and they performed a chest x-ray. She received a phone call she had a large pleural effusion again on the left, and that she needed to go to the emergency department. She denies any fevers or chills, no cough, no swelling of her feet, no history of CHF. No other symptoms. She stated that she thought her pleural effusion was on the right the last time. [facility] Medical History History of diabetes mellitus History of cirrhosis Anemia Pleural effusion on left Exertional dyspnea Chest pain Ascites Wears contact lenses Wears glasses Post-menopausal Anxiety Alcohol use Thyroid disease History of renal disease Anemia Back pain History of diverticulitis Gastric reflux Former smoker Sleep apnea Chronic cough S/p nephrectomy Depression Migraines HTN (hypertension) Diabetes Home Medications ?Medication ?Instructions ?Recorded ?Last Taken ?Type duloxetine 60 mg capsule,delayed 60 mg PO DAILY 11/06/17 Unknown History release ergocalciferol (vitamin D2) 1,250 50,000 unit PO Q7D 11/06/17 Unknown History mcg (50,000 unit) capsule losartan 50 mg tablet 50 mg PO DAILY BP 11/06/17 Unknown History Handicap Placard See Rx Instructions .Route 03/06/19 Unknown Rx .COMPLEX Osteoarthritis #1 unit albuterol sulfate 90 mcg/actuation 1 - 2 puff inhalation PRN PRN 02/20/23 Unknown History aerosol inhaler ALLERGIES dulaglutide 0.75 mg/0.5 mL 0.75 mg subcut QWEEK 10/10/23 Unknown History subcutaneous pen injector (Trulicity) ascorbic acid (vitamin C) 500 mg 500 mg PO DAILY 02/13/24 Unknown History tablet cholecalciferol (vitamin D3) 25 25 mcg PO DAILY 02/13/24 Unknown History mcg (1,000 unit) capsule cyanocobalamin (vitamin B-12) 1,000 mcg PO DAILY 02/13/24 Unknown History 1,000 mcg capsule omeprazole 20 mg capsule,delayed 20 mg PO DAILY Heartburn 02/17/24 Unknown History release levothyroxine 125 mcg tablet 125 mcg PO DAILY disorder of 02/27/24 03/09/24 History (Synthroid) thyroid gland furosemide 20 mg tablet (Lasix) 20 mg PO DAILY #30 tabs 03/01/24 Unknown Rx fexofenadine 180 mg tablet 180 mg PO DAILY 03/03/24 Unknown History (Aaliyah Allergy) hydrocortisone 100 mg/60 mL enema 100 mg (60 mL) [place] BID 14 days 03/30/24 Unknown Rx #1,680 mL Allergy/AdvReac Type Severity Reaction Status Date / Time adhesive tape Allergy Rash Verified 03/31/24 14:09 Family History Father Colon cancer Brother Cancer bladder Surgical History History of thoracentesis Hx of colonoscopy History of esophagogastroduodenoscopy (EGD) S/P shoulder surgery S/P hysterectomy History of lobectomy of thyroid Social History Smoking Status: Former smoker alcohol intake: current alcohol intake frequency: holidays/special occasions only ROS ROS ED ROS Narrative Constitutional: No fever, no chills. HEENT: No sore throat. No neck pain. No loss of vision. No rhinorrhea. Cardiovascular: No chest pain. No palpitations. No pedal edema. Respiratory: No to occasional cough, positive dyspnea on exertion and shortness of breath. Abdominal: No abdominal pain. No nausea. No vomiting. Genitourinary: No dysuria. No hematuria. Musculoskeletal: No myalgias. No arthralgias. Neurologic: No headaches. No dizziness. No lightheadedness. Skin: No rash. No change in color. Psychiatric: No depression. No anxiety. EXAM Physical Exam Narrative Exam Narrative: Afebrile. Vital signs noted. HEENT: Normocephalic. Atraumatic. PERRL, EOMI. Neck soft and supple. No point tenderness or step off. Cardiovascular: Regular rate and rhythm. No murmurs, rubs, or gallops appreciated. Respiratory: No tachypnea. Lungs clear to auscultation bilaterally. Decreased breath sounds left midlung to left base. Gastrointestinal: Abdomen soft, nontender, with normoactive bowel sounds. No rebound or guarding. Questionable ascites. Neurological: Awake. Alert. Nonfocal, nonlateralizing. Skin: No rash. Normal color. No pallor. Musculoskeletal: No pedal edema. Full range of motion extremities. Const Vital Signs: 03/31/24 14:07 03/31/24 14:09 03/31/24 15:22 Temperature 96.8 F L 96.8 F L Temperature Source Temporal Temporal Pulse Rate 103 H 103 H Respiratory Rate 18 18 Respiratory Effort Short of Breath Respiratory Depth Normal Respiratory Pattern Normal Blood Pressure 151/70 H 151/70 H Blood Pressure Mean 97 97 Pulse Ox 100 100 Oxygen Delivery Method Room Air Room Air 03/31/24 15:36 Temperature Temperature Source Pulse Rate 92 Respiratory Rate 16 Respiratory Effort Respiratory Depth Respiratory Pattern Blood Pressure 135/74 H Blood Pressure Mean 94 Pulse Ox 96 Oxygen Delivery Method Room Air MDM MDM MDM Narrative Medical decision making narrative: I reviewed the patient's prior records. Her prior chest x-ray did show a pleural effusion on the left. In the differential diagnosis would be pneumothorax versus pleural effusion versus CHF. I reviewed her laboratory work from today and she is neutropenic at 2.7 but this is chronic for her. Hemoglobin stable at 9.2. Platelet count low at 79. She does have history of chronic pancytopenia listed as a problem list. I do not feel she requires emergent platelet transfusion. Coags show INR of 1.4 with PT 16.9, APTT normal at 30.9. Electrolyte panel is significant for chloride of 108 with glucose 131. Anion gap normal at 5. AST normal at 31 and ALT normal at 21. BNP is normal at 21.6 so I doubt CHF. Chest x-ray in 1 view was obtained here, and interpreted by myself which shows a moderately large left pleural effusion. This is with underlying atelectasis. I reviewed the radiology report which confirms my independent interpretation. Her ambulatory pulse ox was 95% on room air according to the RN. Initially, I discussed the patient with radiology, but her coags were pending, so thoracentesis could not be performed today. They told the RN that it could be performed in the morning. Given that she has been symptomatic, I discussed the patient with Dr. Heaven Nichols who will observe the patient overnight and have thoracentesis in the morning. Her sister was at the bedside and is more comfortable with this plan as the patient does not have oxygen at home. Disposition is assigned observation. Patient is in stable condition. History & Record Review Discussion w/independent historian: Patient Additional record(s) reviewed:: Prior inpatient record, Prior ED visit and Prior labs Lab Data Attestation: I reviewed the patient's lab results. Labs: Laboratory Results - last 24 hr 03/31/24 03/31/24 15:10 15:30 WBC 2.7 L RBC 3.57 L Hgb 9.2 L Hct 30.7 L MCV 86.0 MCH 25.8 L MCHC 30.0 L RDW Std Deviation 66.3 H RDW Coeff of Cornelio 21.0 H Plt Count 79 L MPV 10.3 Immature Gran % (Auto) 0.000 Neut % (Auto) 65.7 Lymph % (Auto) 21.9 Harding % (Auto) 9.1 Eos % (Auto) 2.9 Baso % (Auto) 0.4 Absolute Neuts (auto) 1.8 L Absolute Lymphs (auto) 0.60 L Nucleated RBC % 0 Differential Comment SCANNED Diff Path Review May foll Polychromasia RARE Hypochromasia 2+ Anisocytosis 2+ Crenated Cell 1+ PT 16.8 H INR 1.4 APTT 30.9 Sodium 140 Potassium 3.6 Chloride 108 H Carbon Dioxide 27.0 Anion Gap 5 BUN 6 L Creatinine 0.86 Estim Creat Clear Calc 65.07 Est GFR (MDRD) Af Amer 84 Est GFR (MDRD) Non-Af 69 BUN/Creatinine Ratio 7.0 L Glucose 131 H Calcium 8.9 Total Bilirubin 0.90 AST 31 ALT 21 Alkaline Phosphatase 152 H B-Natriuretic Peptide 21.6 Total Protein 5.8 L Albumin 3.0 L Globulin 2.8 Albumin/Globulin Ratio 1.1 Radiography Diagnostic Testing: Clinical Impression(s) from Imaging Studies Chest X-Ray 03/31/24 15:06 IMPRESSION: Moderate-sized left pleural effusion with underlying atelectasis at the left lung base. Electronically Signed: Timmy Maldonado MD at 15:37 EDT , Discharge Plan Triage Chief Complaint: Shortness of Breath ED Provider: Nasir Flanagan Dx/Rx/DC Orders Prescriptions: No Action Handicap Placard See Rx Instructions .ROUTE .COMPLEX Qty: 1 0RF Rx Instructions: 12weeks Trulicity 0.75 mg/0.5 mL pen injector 0.75 mg subcut QWEEK ascorbic acid (vitamin C) 500 mg tablet 500 mg PO DAILY cholecalciferol (vitamin D3) 25 mcg (1,000 unit) capsule 25 mcg PO DAILY cyanocobalamin (vitamin B-12) 1,000 mcg capsule 1,000 mcg PO DAILY losartan 50 MG tablet 50 mg PO DAILY ergocalciferol (vitamin D2) 50,000 UNIT capsule 50,000 unit PO Q7D duloxetine 60 MG capsule,delayed release(DR/EC) 60 mg PO DAILY omeprazole 20 mg capsule,delayed release(DR/EC) 20 mg PO DAILY albuterol sulfate 90 mcg/actuation HFA aerosol inhaler 1 - 2 puff INHALATION PRN PRN (Reason: ALLERGIES) fexofenadine [Aaliyah Allergy] 180 mg tablet 180 mg PO DAILY levothyroxine [Synthroid] 125 mcg tablet 125 mcg PO DAILY furosemide [Lasix] 20 mg tablet 20 mg PO DAILY Qty: 30 2RF hydrocortisone 100 mg/60 mL enema 100 mg [place] BID 14 Days Qty: 1680 0RF Primary Care Provider: Juan Locke Referrals: Juan Locke DO [Primary Care Provider] - Print Language: Tanzanian
--- NOTE | 2024-03-31 17:11 | PCM.HP.STD ---
HPI - General General Date of Admission: 03/31/24 Date of Service: 03/31/24 Chief Complaint: Shortness of breath HPI Narrative JANETTE MENESES, is a 69 F who presented to the emergency department at [facility] on 03/31/2024 with shortness of breath. She stated this is similar to what she experienced when she had a large left pleural effusion. She had a thoracentesis on 02/28/2024 for a large left pleural effusion at which time almost 2100 cc were removed. She states she had resolution of her shortness of breath following about 3 days ago she began having worsening shortness of breath. She is currently undergoing evaluation of her liver for cirrhosis. Liver biopsy was performed on 03/20/2024 and the results are consistent with liver cirrhosis. She has an upcoming appointment with Dr. Glez on 04/03/2024 for follow-up for her liver disease. She has known grade 3 esophageal varices and portal hypertensive gastropathy noted on an EGD done on 03/09/2024. At this point she is only on Lasix 20 mg daily for her liver disease and has not really been watching her salt or fluid intake. She does indicate her symptoms are worse when she lies flat or when she exerts herself. She states she is relatively comfortable at rest. Vital signs on presentation showed temperature 96.8, heart rate 103, respiratory rate 18, blood pressure 151/70 and oxygen saturation was 100% on room air at rest however she desatted to 90% with exertion. She has a chronic stable pancytopenia. Coags are slightly abnormal with a PT of 16.8 and an INR of 1.4 with a APTT of 30.9. Chemistry panel was overtly unremarkable other than mild hyperglycemia with a blood sugar of 131. She did have a recent hemoglobin A1c on 02/17/2024 that was 5.7. Liver functions overtly unremarkable. Bilirubin is normal. Chest x-ray was performed and shows a large left pleural effusion. Given how symptomatic she is and how she quickly desats to 90% on room air with exertion it was felt prudent to admit her and obtain an inpatient thoracentesis tomorrow with probable discharge tomorrow as long as she is clinically stable. [facility] Medical History Iron deficiency anemia Lung nodule Cirrhosis Hemorrhoids History of diabetes mellitus History of cirrhosis Anemia Pleural effusion on left Exertional dyspnea Chest pain Ascites Wears contact lenses Wears glasses Post-menopausal Anxiety Alcohol use Thyroid disease History of renal disease Anemia Back pain History of diverticulitis Gastric reflux Former smoker Sleep apnea Chronic cough S/p nephrectomy Depression Migraines HTN (hypertension) Diabetes Home Medications ?Medication ?Instructions ?Recorded ?Last Taken ?Type duloxetine 60 mg capsule,delayed 60 mg PO DAILY 11/06/17 03/30/24 History release ergocalciferol (vitamin D2) 1,250 50,000 unit PO Q7D 11/06/17 Unknown History mcg (50,000 unit) capsule losartan 50 mg tablet 50 mg PO DAILY BP 11/06/17 03/31/24 History Handicap Placard See Rx Instructions .Route 03/06/19 Unknown Rx .COMPLEX Osteoarthritis #1 unit albuterol sulfate 90 mcg/actuation 1 - 2 puff inhalation PRN PRN 02/20/23 03/16/24 History aerosol inhaler ALLERGIES dulaglutide 0.75 mg/0.5 mL 0.75 mg subcut QWEEK 10/10/23 03/28/24 History subcutaneous pen injector (Trulicity) ascorbic acid (vitamin C) 500 mg 500 mg PO DAILY 02/13/24 Unknown History tablet cholecalciferol (vitamin D3) 25 25 mcg PO DAILY 02/13/24 03/28/24 History mcg (1,000 unit) capsule cyanocobalamin (vitamin B-12) 1,000 mcg PO DAILY 02/13/24 03/28/24 History 1,000 mcg capsule omeprazole 20 mg capsule,delayed 20 mg PO DAILY Heartburn 02/17/24 03/30/24 History release levothyroxine 125 mcg tablet 125 mcg PO DAILY disorder of 02/27/24 03/31/24 History (Synthroid) thyroid gland furosemide 20 mg tablet (Lasix) 20 mg PO DAILY #30 tabs 03/01/24 03/31/24 Rx fexofenadine 180 mg tablet 180 mg PO DAILY 03/03/24 03/30/24 History (Aaliyah Allergy) hydrocortisone 100 mg/60 mL enema 100 mg (60 mL) MA BID 14 days 03/30/24 Unknown Rx #1,680 mL Allergy/AdvReac Type Severity Reaction Status Date / Time adhesive tape Allergy Rash Verified 03/31/24 17:18 Family History Father Colon cancer Brother Cancer bladder Surgical History History of thoracentesis Hx of colonoscopy History of esophagogastroduodenoscopy (EGD) S/P shoulder surgery S/P hysterectomy History of lobectomy of thyroid Social History Smoking Status: Former smoker alcohol intake: current alcohol intake frequency: holidays/special occasions only ROS Constitutional Constitutional: Denies anorexia, change in weight, chills, fatigue, fever(s), malaise, night sweats, weakness or other Eyes Eyes: Denies blurry vision, change in eye color, change in vision, discharge from eye(s), double vision, erythema, eye pain, loss of vision or other ENT HEENT: Denies abnormal hearing, dysphagia, ear pain, epistaxis, headache(s), hearing loss, nasal congestion, nasal discharge, post nasal drip, sinus pressure, sore throat or other Cardiovascular Cardiovascular: Reports orthopnea; Denies chest pain, claudication, dyspnea on exertion, edema, lightheadedness, palpitations, paroxysmal nocturnal dyspnea, rapid heart rate, syncope or other Respiratory/Chest Respiratory/Chest: Reports dyspnea and shortness of breath with exertion; Denies cough, excessive phlegm production, hemoptysis, productive cough, shortness of breath at rest, wheezing or other Gastrointestinal Gastrointestinal: Reports other Details: Abdominal swelling ; Denies abdominal pain, coffee ground emesis, constipation, diarrhea, dyspepsia, hematemesis, hematochezia, loose stools, melena, nausea or vomiting Genitourinary Genitourinary: Denies burning urination, difficulty urinating, dysuria, hematuria, nocturia, urinary frequency, urinary hesitancy, urinary incontinence, urinary urgency or other Musculoskeletal Musculoskeletal: Reports joint pain and joint stiffness; Denies arthralgias, back pain, joint swelling, myalgias, neck pain or other Neurologic Neurologic: Denies abnormal gait, abnormal speech, confusion, disequilibrium, dizziness, focal weakness, headache(s), numbness, paresthesias, seizure-like activity, seizures, syncope, tingling, tremor(s) or other Psychiatric Psychiatric: Denies anxiety, depression, homicidal ideation, suicidal ideation or other Endocrine Endocrinology: Denies change in body appearance, cold intolerance, excessive sweating, heat intolerance, polydipsia, polyuria or other Hematologic/Lymphatic Hematologic/Lymphatic: Denies anemia, easy bleeding, easy bruising, lymphadenopathy or other Allergic/Immunologic Allergic/Immunologic: Denies rhinitis, hives, eczemia, asthma or other Vital Signs Vital Signs Vital Signs: 03/31/24 14:07 03/31/24 14:09 03/31/24 15:22 Temperature 96.8 F L 96.8 F L Temperature Source Temporal Temporal Pulse Rate 103 H 103 H Respiratory Rate 18 18 Respiratory Effort Short of Breath Respiratory Depth Normal Respiratory Pattern Normal Blood Pressure 151/70 H 151/70 H Blood Pressure Mean 97 97 Pulse Ox 100 100 Oxygen Delivery Method Room Air Room Air 03/31/24 15:36 Temperature Temperature Source Pulse Rate 92 Respiratory Rate 16 Respiratory Effort Respiratory Depth Respiratory Pattern Blood Pressure 135/74 H Blood Pressure Mean 94 Pulse Ox 96 Oxygen Delivery Method Room Air Weight Weight: 90.7 kg Body Mass Index (BMI) 35.4 Physical Exam Const alert, oriented x3, no apparent distress and well nourished; Negative for average body habitus or healthy appearing Constitutional Narrative: Obese, pleasant, older, white female, sitting up in bed, interacts appropriately, nursing at bedside, does not appear toxic General Appearance: cooperative HEENT normocephalic, head/scalp atraumatic, hearing grossly normal bilaterally and moist oral mucous membranes HEENT Narrative: Dentition is poor, Mallampati is 2, no thrush, patient with extremely narrow upper palate Eyes PERRL and EOMs intact bilaterally Eyes Narrative: Conjunctiva are mildly pale bilaterally, no scleral icterus is present Neck no lymphadenopathy and supple Neck Narrative: Trachea midline, no thyroid enlargement Resp normal respiratory effort, no retractions and no use of accessory muscles Resp Narrative: Diminished breath sounds on the left side with improved aeration at the left apex, right side is clear Auscultation: Negative for rales, rhonchi or wheezes Cardio regular rate, regular rhythm, S1 normal heart sound, S2 normal heart sound, no murmurs, no rub, no gallops and no clicks GI GI Narrative: Fluid wave noted, abdomen is nontender with normoactive bowel sounds and soft to palpation Extremity no clubbing, cyanosis or edema Extremity Narrative: Pedal and radial pulses are 2+ Skin No no rashes or lesions noted, no wounds, skin turgor normal, no jaundice, no petechiae and no mottling Skin Narrative: Skin is pale, scattered telangiectasias Neuro oriented x3, moves all extremities and no focal motor deficits Speech: speech normal Psych affect normal Psych Narrative: Very pleasant Results Lab / Micro Data 03/31/24 15:10 03/31/24 15:10 Labs: Laboratory Results - last 24 hr 03/31/24 15:10: WBC 2.7 L, RBC 3.57 L, Hgb 9.2 L, Hct 30.7 L, MCV 86.0, MCH 25.8 L, MCHC 30.0 L, RDW Std Deviation 66.3 H, RDW Coeff of Cornelio 21.0 H, Plt Count 79 L, MPV 10.3, Immature Gran % (Auto) 0.000, Neut % (Auto) 65.7, Lymph % (Auto) 21.9, [place] % (Auto) 9.1, Eos % (Auto) 2.9, Baso % (Auto) 0.4, Absolute Neuts (auto) 1.8 L, Absolute Lymphs (auto) 0.60 L, Nucleated RBC % 0, Differential Comment SCANNED, Diff Path Review May foll, Polychromasia RARE, Hypochromasia 2+, Anisocytosis 2+, Crenated Cell 1+, Sodium 140, Potassium 3.6, Chloride 108 H, Carbon Dioxide 27.0, Anion Gap 5, BUN 6 L, Creatinine 0.86, Estim Creat Clear Calc 65.07, Est GFR (MDRD) Af Amer 84, Est GFR (MDRD) Non-Af 69, BUN/Creatinine Ratio 7.0 L, Glucose 131 H, Calcium 8.9, Total Bilirubin 0.90, AST 31, ALT 21, Alkaline Phosphatase 152 H, B-Natriuretic Peptide 21.6, Total Protein 5.8 L, Albumin 3.0 L, Globulin 2.8, Albumin/Globulin Ratio 1.1 03/31/24 15:30: PT 16.8 H, INR 1.4, APTT 30.9 Imaging Radiology Impression Chest X-Ray 03/31/24 15:06 IMPRESSION: Moderate-sized left pleural effusion with underlying atelectasis at the left lung base. Electronically Signed: Timmy Maldonado MD at 15:37 EDT , Assessment & Plan Assessment/Plan (1) Pancytopenia: (2) Recurrent pleural effusion on left: (3) Shortness of breath: PLAN: Plan Shortness of breath secondary to recurrent left-sided pleural effusion -Likely related to cirrhosis and ascites with translocation across the diaphragm -Obtain thoracentesis left side -Fluid studies ordered -Serum LDH to be collected tomorrow along with serum protein -I did discuss with the patient that this is likely to recur until we get her ascites under control -Increase Lasix from 20 mg daily to 40 twice daily Pancytopenia secondary to chronic liver disease -Chronic and stable -Repeat lab in a.m. Cirrhosis of the liver -Likely CLARK -Biopsy from 03/20/2024 confirms early cirrhosis -Patient with significant ascites probably causing pleural effusion -Increase Lasix from 20 mg daily to 40 mg twice daily -Add Aldactone 25 mg p.o. twice daily -Patient does have grade 3 varices noted will add propranolol 10 mg 3 times daily and hold home losartan -Dietitian consultation for discussion about fluid and sodium restriction -Salt and fluid restricted diet ordered -Patient has outpatient follow-up with Dr. Glez on Saturday of this week-04/03/2024 Esophageal varices -Noted on EGD from 03/09/2024 -Grade 3 with no bleeding -Add propranolol as above DM-2 -Patient with recent hemoglobin A1c that shows well-controlled diabetes -Hold home dulaglutide -SSI -Accu-Cheks as ordered -Carb controlled diet Portal hypertensive gastropathy/GERD -Continue home omeprazole Hypothyroidism -Continue home levothyroxine Vitamin D deficiency -Restart ergocalciferol at discharge Seasonal allergies -Continue home fexofenadine Depression -Continue home duloxetine History of nephrectomy -Remote -No current issues History of tobacco abuse -Recommend ongoing cessation JENN -Patient does not wear a CPAP at baseline Obesity -BMI 35.3 -Recommend weight loss -Complicates treatment, prognosis, outcomes DVT prophylaxis -Heparin twice daily--> monitor platelets closely CODE STATUS -Full code as verified on admission Charges/Coding Visit Charges Inpatient E&M: 53080 Init Hosp L2
[2024-03-31] MEDS: Furosemide 40 MG Tablet PO (19:01)
[2024-03-31] MEDS: Spironolactone 25 MG Tablet PO (21:15)
[2024-03-31] MEDS: Propranolol 10 MG Tablet PO (21:15)
[2024-03-31] MEDS: Heparin Injection (Vial) 5,000 UNIT/ML VIAL 5000 UNIT SC (21:16)
[2024-03-31 21:37] LABS: Bedside Glucose 142 mg/dL (74-106)
[2024-04-01 02:43] VITALS: BP 116/65; PULSE 83; RESP 18; TEMP 36.8; O2SAT 95
[2024-04-01 05:32] LABS: Absolute Lymphocyte Count 0.73 X10^3/uL (0.83-4.51); Absolute Neutrophil Count 1.8 X10^3/uL (2.0-7.7); Basophil# 0.01 X10^3/uL; Basophil% 0.3 % (0-1); Eosinophil# 0.12 X10^3/uL; Eosinophils% 4.1 % (0-5); Hematocrit 29.5 % (37-47); Hemoglobin 8.8 g/dL (12.0-15.0); Lymphocyte # 0.73 X10^3/ul (0.83-4.51); Lymphocyte % 24.9 % (19-41); Mean Corp Hgb Conc 29.8 g/dL (32-36); Mean Corpuscular Hgb 25.4 pg (27.0-32.0); Mean Platelet Vol. 10.2 fl (6.2-12.0); Monocyte% 10.2 % (0-10); NRBC Flagged by Analyzer 0 % (0-5); Neutrophil # 1.76 X10^3/uL (2.7-7.7); Neutrophil % 60.2 % (47-70); POSITIVE COUNT YES; POSITIVE MORPHOLOGY YES; Platelet Count 84 K/mm3 (150-450); RBC Distribution Width CV 20.9 % (11.6-14.6); RBC Distribution Width SD 64.9 fl (35.1-43.9); Red Blood Count 3.47 M/mm3 (4.2-5.4); White Blood Count 2.9 K/mm3 (4.4-11.0)
[2024-04-01 05:50] VITALS: BMI 35.3
[2024-04-01 06:00] LABS: Phosphorus 2.9 mg/dL (2.5-4.9)
[2024-04-01 06:01] LABS: ALB/GLOB Ratio 1.2 RATIO (0.9-2.4); AST(SGOT) 27 U/L (15-37); Alanine Aminotransfer ALT/SGPT 21 U/L (13-56); Albumin, Serum 2.9 g/dL (3.2-5.0); Alkaline Phosphatase 138 U/L (45-117); Anion Gap 5 (5-15); BUN 8 mg/dL (7-18); Calcium,Total 8.6 mg/dL (8.5-10.1); Chloride 108 mmol/L (98-107); Creatinine, Serum 0.89 mg/dL (0.55-1.02); EST Glomerular Filtration Rate 67 mL/min (>60); Est Glom Filt Rate - Afr Amer 81 mL/min (>60); Estimated Creatinine Clearance 62.81 ml/min; Globulin 2.5 g/dL (2.2-4.2); Glucose 152 mg/dL (74-106); LDH 174 U/L (84-246); Magnesium 1.5 mg/dL (1.6-2.6); Potassium 3.3 mmol/L (3.5-5.1); Protein, Total 5.4 g/dL (6.4-8.2); Sodium Level 140 mmol/L (136-145)
[2024-04-01 06:14] LABS: Differential Indicated SCAN CRITERIA MET
[2024-04-01] MEDS: Levothyroxine 125 MCG Tablet PO (06:28)
[2024-04-01] MEDS: Propranolol 10 MG Tablet PO ×3 (06:28→22:27)
[2024-04-01 07:11] LABS: Bedside Glucose 118 mg/dL (74-106)
[2024-04-01 07:26] LABS: Anisocytosis 1+; Platelet Estimate MKD DEC (ADEQ)
[2024-04-01 08:00] VITALS: BP 106/64; PULSE 73; RESP 18; TEMP 36.7; O2SAT 94
[2024-04-01 08:45] VITALS: O2SAT 96
[2024-04-01] MEDS: Magnesium Sulfate 4gm/100mL 4 GM/100 ML IV.SOLN. IV (09:05)
[2024-04-01] MEDS: Potassium Chloride 10mEq/100mL 10 MEQ/100 ML IV.SOLN. 100 MEQ IV BOLUS ×2 (09:06→10:11)
[2024-04-01] MEDS: Spironolactone 25 MG Tablet PO ×2 (09:06→22:26)
[2024-04-01] MEDS: DULoxetine Hcl 60 MG Capsule PO (09:06)
[2024-04-01] MEDS: 0.9% Saline Lock 10 ML Syringe IV (09:06)
[2024-04-01] MEDS: Furosemide 40 MG Tablet PO ×2 (09:06→17:50)
[2024-04-01] MEDS: Pantoprazole Sodium 20 MG Tablet PO (09:07)
[2024-04-01 11:53] LABS: Pathologist Review Reviewed
[2024-04-01 12:23] LABS: Bedside Glucose 145 mg/dL (74-106)
[2024-04-01 14:12] VITALS: BP 110/64; PULSE 76; RESP 18; TEMP 36.6; O2SAT 94
[2024-04-01] MEDS: Heparin Injection (Vial) 5,000 UNIT/ML VIAL 5000 UNIT SC ×2 (14:17→22:27)
--- NOTE | 2024-04-01 15:24 | CASEMGMT ---
Met with patient to complete MONTG[place]ERY form. MON[place]ERY form explained to patient who voiced understanding and signed form. Original form placed in pt?s chart and copy provided to patient. Karina Jacobo, Discharge Planning Asst
--- NOTE | 2024-04-01 15:33 | PN.HOSP_ITS ---
Reason for Visit Reason for Visit: Diagnoses Other pancytopenia (03/31/24) Pleural effusion, not elsewhere classified (03/31/24) Shortness of breath (03/31/24) Subjective Subjective Still short of breath but does feel like like the medication changes have thus far been beneficial, no significant abdominal pain at this time Objective Data Objective Data Vital Signs: Vital Signs Temp Pulse Resp BP Pulse Ox O2 Del Method 97.9 F 76 18 110/64 94 Room Air 04/01/24 14:12 04/01/24 14:12 04/01/24 14:12 04/01/24 14:12 04/01/24 14:12 04/01/24 14:12 Oxygen Delivery Method Room Air Weight: 90.5 kg Body Mass Index (BMI) 35.3 Intake & Output: Intake and Output for Last 24 Hours 03/30/24 03/31/24 04/01/24 23:59 23:59 23:59 Intake Total 800 / 800 Balance 800 / 800 Lab / Micro Data 04/01/24 05:09 04/01/24 05:09 Labs: Laboratory Results - last 24 hr 03/31/24 15:10: WBC 2.7 L, RBC 3.57 L, Hgb 9.2 L, Hct 30.7 L, MCV 86.0, MCH 25.8 L, MCHC 30.0 L, RDW Std Deviation 66.3 H, RDW Coeff of Cornelio 21.0 H, Plt Count 79 L, MPV 10.3, Immature Gran % (Auto) 0.000, Neut % (Auto) 65.7, Lymph % (Auto) 21.9, [place] % (Auto) 9.1, Eos % (Auto) 2.9, Baso % (Auto) 0.4, Absolute Neuts (auto) 1.8 L, Absolute Lymphs (auto) 0.60 L, Nucleated RBC % 0, Differential Comment SCANNED, Diff Path Review Reviewed, Polychromasia RARE, Hypochromasia 2+, Anisocytosis 2+, Crenated Cell 1+, Sodium 140, Potassium 3.6, Chloride 108 H , Carbon Dioxide 27.0, Anion Gap 5, BUN 6 L, Creatinine 0.86, Estim Creat Clear Calc 65.07, Est GFR (MDRD) Af Amer 84, Est GFR (MDRD) Non-Af 69, BUN/Creatinine Ratio 7.0 L, Glucose 131 H, Calcium 8.9, Total Bilirubin 0.90, AST 31, ALT 21, A lkaline Phosphatase 152 H, B-Natriuretic Peptide 21.6, Total Protein 5.8 L, A lbumin 3.0 L, Globulin 2.8, Albumin/Globulin Ratio 1.1 03/31/24 15:30: PT 16.8 H, INR 1.4, APTT 30.9 03/31/24 21:13: POC Glucose 142 H 04/01/24 05:09: WBC 2.9 L, RBC 3.47 L, Hgb 8.8 L, Hct 29.5 L, MCV 85.0, MCH 25.4 L, MCHC 29.8 L, RDW Std Deviation 64.9 H, RDW Coeff of Cornelio 20.9 H, Plt Count 84 L, MPV 10.2, Immature Gran % (Auto) 0.300, Neut % (Auto) 60.2, Lymph % (Auto) 24.9, [place] % (Auto) 10.2 H, Eos % (Auto) 4.1, Baso % (Auto) 0.3, Absolute Neuts (auto) 1.8 L, Absolute Lymphs (auto) 0.73 L, Nucleated RBC % 0, Differential Comment , Platelet Estimate MKD DEC, Anisocytosis 1+, Sodium 140, Potassium 3.3 L, Chloride 108 H, Carbon Dioxide 27.0, Anion Gap 5, BUN 8, Creatinine 0.89, Estim Creat Clear Calc 62.81, Est GFR (MDRD) Af Amer 81, Est GFR (MDRD) Non-Af 67, BUN/Creatinine Ratio 9.0 L, Glucose 152 H, Calcium 8.6, Phosphorus 2.9, M agnesium 1.5 L, Total Bilirubin 0.80, AST 27, ALT 21, Alkaline Phosphatase 138 H , Lactate Dehydrogenase 174, Total Protein 5.4 L, Albumin 2.9 L, Globulin 2.5, Albumin/Globulin Ratio 1.2 04/01/24 06:31: POC Glucose 118 H 04/01/24 12:04: POC Glucose 145 H Radiography Diagnostic Testing: Radiology Impression Chest X-Ray 03/31/24 15:06 IMPRESSION: Moderate-sized left pleural effusion with underlying atelectasis at the left lung base. Electronically Signed: Timmy Maldonado MD at 15:37 EDT , Physical Exam Narrative General: Alert, oriented, no apparent distress HEENT: Atraumatic, normocephalic Eyes: Anicteric, normal conjunctiva, extraocular movements grossly intact Neck: Supple Respiratory: Dull left base, normal respiratory effort Cardiovascular: Regular rate and rhythm GI: Slightly distended without rebound, guarding, rigidity Extremities: No edema Musculoskeletal: Moving all extremities Neuro: No overt focal neurological deficits Skin: No rashes appreciated Psych: Cooperative Assessment & Plan Assessment/Plan (1) Pancytopenia: (2) Recurrent pleural effusion on left: (3) Shortness of breath: PLAN: Plan # Shortness of breath likely secondary to left-sided neural effusion -Suspect related to cirrhosis and ascites that translocated across diaphragm -Had a thoracentesis last month but has had reaccumulation -Order placed for thoracentesis which should be performed tomorrow for therapeutic purposes -Additionally diuretics increased and patient to follow with GI on Saturday for further management # Pancytopenia -Likely secondary to her chronic liver disease -Stable this a.m. # Cirrhosis of the liver with grade 3 varices -Biopsy from 03/20/2024 confirms early cirrhosis -Suspect ascites due to the cirrhosis as cause of pleural effusion -Lasix increased and Aldactone started -Patient follow-up with Dr. Ashley on Saturday -Salt and fluid restriction -Losartan discontinued and propranolol started due to varices #Type 2 diabetes mellitus -Glucose checks and sliding scale insulin #GERD -Continue PPI #Hypothyroidism -Continue Synthroid #DVT ppx: Heparin subcu Tiffanie Velázquez MD Time spent in the patient's overall evaluation,decision-making process, review of diagnostic data, adjustment of management, discussion with other providers, nursing nursing and ancillary staff involved in patient's care documentation, 37 minutes Charges/Coding Visit Charges Inpatient E&M: 92283 Subs Hosp L2
[2024-04-01 17:24] LABS: Bedside Glucose 139 mg/dL (74-106)
[2024-04-01 20:31] VITALS: BP 109/66; PULSE 79; RESP 18; TEMP 36.4; O2SAT 95
[2024-04-01] MEDS: Insulin Lispro 100 UNIT/ML INSULN.PEN SC (22:26)
[2024-04-01 22:54] LABS: Bedside Glucose 184 mg/dL (74-106)
[2024-04-02] VITALS (15 sets, daily range): BP systolic 59–114; BP diastolic 29–65; PULSE 67–78; RESP 12–18; TEMP 36.6–37.2; O2SAT 92–97; BMI 35.2
[2024-04-02] MEDS: Levothyroxine 125 MCG Tablet PO (06:32)
[2024-04-02] MEDS: Propranolol 10 MG Tablet PO (06:32)
[2024-04-02 06:37] LABS: Hematocrit 28.6 % (37-47); Hemoglobin 8.6 g/dL (12.0-15.0); Mean Corp Hgb Conc 30.1 g/dL (32-36); Mean Corpuscular Hgb 25.3 pg (27.0-32.0); Mean Corpuscular Volume 84.1 fL (81-99); Mean Platelet Vol. 10.7 fl (6.2-12.0); POSITIVE COUNT YES; POSITIVE MORPHOLOGY YES; Platelet Count 86 K/mm3 (150-450); RBC Distribution Width CV 21.1 % (11.6-14.6); RBC Distribution Width SD 64.1 fl (35.1-43.9); White Blood Count 3.7 K/mm3 (4.4-11.0)
[2024-04-02 06:38] LABS: Scan Indicated on CBC? Y/N YES- FLAGS NOTED
[2024-04-02 06:52] LABS: Bedside Glucose 122 mg/dL (74-106)
[2024-04-02 07:01] LABS: ALB/GLOB Ratio 1.1 RATIO (0.9-2.4); AST(SGOT) 37 U/L (15-37); Alanine Aminotransfer ALT/SGPT 24 U/L (13-56); Albumin, Serum 2.7 g/dL (3.2-5.0); Alkaline Phosphatase 140 U/L (45-117); Anion Gap 7 (5-15); BUN 8 mg/dL (7-18); BUN/Creat Ratio 9.4 RATIO (10-20); Calcium,Total 8.3 mg/dL (8.5-10.1); Chloride 106 mmol/L (98-107); Creatinine, Serum 0.86 mg/dL (0.55-1.02); EST Glomerular Filtration Rate 70 mL/min (>60); Est Glom Filt Rate - Afr Amer 84 mL/min (>60); Estimated Creatinine Clearance 64.92 ml/min; Globulin 2.4 g/dL (2.2-4.2); Glucose 126 mg/dL (74-106); LDH 163 U/L (84-246); Protein, Total 5.1 g/dL (6.4-8.2); Sodium Level 140 mmol/L (136-145)
--- NOTE | 2024-04-02 08:00 | US_ITS ---
PROCEDURE: ULTRASOUND GUIDED THORACENTESIS. DATE: April 02, 2024. INDICATION: Female, 69 years old. Left pleural effusion. PHYSICIAN: Timmy Maldonado M.D. PROCEDURE: The risks, benefits, and alternatives to the procedure were explained to the patient. The specific risks of bleeding, infection, and pneumothorax requiring chest tube insertion were discussed and accepted. Written informed consent was obtained. Ultrasonographic evaluation of the left lower pleural space was carried out. An adequate pocket was identified. The patient was placed in the sitting, upright position. The overlying skin was prepped and draped in sterile fashion. 1% lidocaine was administered subcutaneously for local anesthesia. Under ultrasound guidance, a 5 [place] thoracentesis needle/catheter system was advanced into the left posterior lower pleural fluid collection. Approximately 1680 mL of surinder-colored fluid was drained. The catheter was removed, and a sterile dressing was applied. A specimen was collected and sent to the laboratory for analysis, as requested by the referring clinician. The patient tolerated the procedure well. A chest x-ray was ordered. US/Thoracentesis W US IMPRESSION: Ultrasound-guided left thoracentesis. Electronically Signed: Timmy Maldonado MD at 14:15 EDT ,
[2024-04-02] MEDS: DULoxetine Hcl 60 MG Capsule PO (09:27)
[2024-04-02] MEDS: Pantoprazole Sodium 20 MG Tablet PO (09:27)
[2024-04-02] MEDS: Potassium Chloride Oral Tablet 20 MEQ 60 MEQ PO (09:27)
[2024-04-02] MEDS: Spironolactone 25 MG Tablet PO (09:27)
[2024-04-02] MEDS: Furosemide 40 MG Tablet PO ×2 (09:27→16:59)
[2024-04-02 11:20] LABS: Bedside Glucose 164 mg/dL (74-106)
[2024-04-02] MEDS: Insulin Lispro 100 UNIT/ML INSULN.PEN SC ×2 (12:42→16:58)
[2024-04-02] MEDS: Lidocaine 2% (20 ml mdv) 20 ML Vial INFILT (13:36)
--- NOTE | 2024-04-02 13:40 | FLU_PTH ---
PATIENT: JANETTE MENESES LOC: MS3 U#:[id number] AGE/SX: 69/F [place] [facility] [place]: Dr. Tiffanie Velázquez MD : 1955 BED: 1 DIS: 04/02/2024 SPEC #: [id number] RECD: 04/02/24 14:34 STATUS: MANNIE LAY #: [id number] TAYLOR: 04/02/24 13:[address]: Tiffanie Velázquez DEPT: CYTOLOGY RECD BY: Daniella Ramires ENTERED: 04/02/24 14:34 SP TYPE: Fluid OTHR DR: DO Dr. Heaven Mora DO Tissues: THORACIC FLUID Procedures: Special Stain Group II Surgery Specimen Level IV Cytospin Fluid HEADER OPERATION: Ultrasound guided thoracentesis PRE-OP DIAGNOSIS: Short of breath 2/2 to large left pleural effusion TISSUE SUBMITTED: Thoracentesis fluid for cytology DIAGNOSIS CYTOLOGY Thoracentesis fluid for cytology (cytospin and cellblock): Negative for malignant cells. See comment. RONI/ 04/03/2024 COMMENT Clinical correlation and appropriate follow up are necessary. Please make reference to previous specimen [id number] thoracentesis fluid for cytology with diagnosis of negative for malignant cells. CYTOLOGY STUDY Slides are reviewed. CYTOLOGY GROSS Received is 80 ml of yellow-hazy fluid labeled with the patient's name and and designated per the requisition as Thoracentesis fluid. Submitted for cytology preparation including cell block. Mr 04/02/2024 TC:5 CPT: 83817
--- NOTE | 2024-04-02 13:55 | RAD_ITS ---
STUDY: X-RAY CHEST REASON FOR EXAM: Female, 69 years old. Post thora TECHNIQUE: AP inspiration and expiration views. COMPARISON: Comparison is made with prior study dated March 31, 2024. FINDINGS: The patient is status post left thoracentesis. There is no evidence of pneumothorax. Residual pleural parenchymal changes are seen at the left lung base. RAD/Chest Insp/Exp 2 View IMPRESSION: Status post left thoracentesis. No evidence of pneumothorax. Residual pleural-parenchymal changes seen at the left lung base. Electronically Signed: Timmy Maldonado MD at 14:14 EDT ,
[2024-04-02 14:30] LABS: Body Fluid Mononuclear WBC # 0.134 10^3/uL; White Blood Count/Body Fluid 0.154 10^3/uL
[2024-04-02] MEDS: Heparin Injection (Vial) 5,000 UNIT/ML VIAL 5000 UNIT SC (14:41)
--- NOTE | 2024-04-02 15:20 | CASEMGMT ---
MJ NAVARRO NOTE: Per Dr Velázquez, pt discharging home today. MJ NAVARRO to room. She lives alone and is independent. She just saw MIXED SIGNAL DESIGN ENGINEER for Dr Locke this past week and has an appt w/Dr Glez tomorrow. Pt denies having any discharge needs/concerns. Erick GALLOWAYN MJ NAVARRO
--- NOTE | 2024-04-02 15:21 | DCINST_ITS ---
Discharge Instructions Diet Discharge Diet: - (Low-sodium, fluid restriction of 1.7 L) Activity Discharge Activity: Return to Normal Activity Follow Up Care Test Results: Test results from this visit will be discussed in further detail at your follow- up appointment, if applicable. Discharge Plan Admission Admit Date/Time: 03/31/24 17:02 Primary Reason for Your Visit: Shortness of breath, required thoracentesis Attending Provider: Tiffanie Velázquez Primary Care Provider: Juan Locke Consulting Providers: Heaven Nichols Instructions Patient Instructions: KURT RN Thoracentesis Dc Additional Instructions / Restrictions: DISCHARGE INSTRUCTIONS PLEASE READ *Please take this with you to your next doctors appointment* -You have been started on propranolol 10 mg 3 times daily -You have also been started on spironolactone 25 mg twice daily -Your Lasix (furosemide) have been increased to 40 mg twice daily, due to the increase a new prescription has been sent to preferred pharmacy on file -Your losartan was discontinued due to the other medication changes -You will be discharged with potassium supplementation so will be important to get your labs rechecked as below -Would recommend lab work (BMP) to check your potassium and kidney function in 2 to 3 days through your primary care physician's office. Please call their office upon discharge to obtain order for lab work. -Please keep your appointment in the GI office tomorrow -Please call your primary care provider's office upon discharge to schedule a hospital follow up within 1 week. -For any concerning signs or symptoms please call 911 or proceed to the nearest emergency department Discharge Orders/Prescriptions Prescriptions: New furosemide 40 mg Tablet 40 mg PO BIDLX 30 Days Qty: 60 0RF spironolactone 25 mg Tablet 25 mg PO BID 30 Days Qty: 60 0RF propranolol 10 mg Tablet 10 mg PO TID 30 Days Qty: 90 0RF potassium chloride 10 mEq tablet extended release 10 meq PO DAILY Qty: 30 0RF Continued Handicap Placard See Rx Instructions .ROUTE .COMPLEX Qty: 1 0RF Rx Instructions: 12weeks Trulicity 0.75 mg/0.5 mL pen injector 0.75 mg subcut QWEEK Patient Comments: pt takes on saturdays ascorbic acid (vitamin C) 500 mg tablet 500 mg PO DAILY cholecalciferol (vitamin D3) 25 mcg (1,000 unit) capsule 25 mcg PO DAILY cyanocobalamin (vitamin B-12) 1,000 mcg capsule 1,000 mcg PO DAILY ergocalciferol (vitamin D2) 50,000 UNIT capsule 50,000 unit PO Q7D Patient Comments: pt takes on sundays duloxetine 60 MG capsule,delayed release(DR/EC) 60 mg PO DAILY omeprazole 20 mg capsule,delayed release(DR/EC) 20 mg PO DAILY albuterol sulfate 90 mcg/actuation HFA aerosol inhaler 1 - 2 puff INHALATION PRN PRN (Reason: ALLERGIES) fexofenadine [Aaliyah Allergy] 180 mg tablet 180 mg PO DAILY levothyroxine [Synthroid] 125 mcg tablet 125 mcg PO DAILY hydrocortisone 100 mg/60 mL enema 100 mg NM BID 14 Days Qty: 1680 0RF Patient Comments: not picked up and started yet Discontinued losartan 50 MG tablet 50 mg PO DAILY furosemide [Lasix] 20 mg tablet 20 mg PO DAILY Qty: 30 2RF Referrals / Follow Up: Juan Locke DO [Primary Care Provider] - Within 1 Week Glenn Glez MD [Med Staff - Active Staff] - (Follow with Dr. Glez in the GI office tomorrow as previously scheduled) Disposition Disposition (needs filled in before D/C Order can be placed): Home, Self Care
[2024-04-02 15:29] LABS: Glucose, Body Fluid 166 mg/dL (40-70); LDH,Body Fluid 59 Units/L (Not Establ.); Protein, Body Fluid 1.3 g/dL (Not Establ.); Red Cell Count/Body Fluid 1397 /mm3
--- NOTE | 2024-04-02 15:29 | DS.PCM_ITS ---
Providers Date of Admission: 03/31/24 Date of Discharge: 04/02/24 Primary Care Physician: Dr. 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 #Type 2 diabetes mellitus #GERD #Hypothyroidism Medications at Discharge Home Medications duloxetine 60 mg capsule,delayed release 60 mg PO DAILY 11/06/17 ergocalciferol (vitamin D2) 1,250 mcg (50,000 unit) capsule 50,000 unit PO Q7D 11/06/17 Handicap Placard See Rx Instructions .Route .COMPLEX Osteoarthritis #1 unit 03/06/19 albuterol sulfate 90 mcg/actuation aerosol inhaler 1 - 2 puff inhalation PRN PRN ALLERGIES 02/20/23 dulaglutide 0.75 mg/0.5 mL subcutaneous pen injector (Trulicity) 0.75 mg subcut QWEEK 10/10/23 ascorbic acid (vitamin C) 500 mg tablet 500 mg PO DAILY 02/13/24 cholecalciferol (vitamin D3) 25 mcg (1,000 unit) capsule 25 mcg PO DAILY 02/13/24 cyanocobalamin (vitamin B-12) 1,000 mcg capsule 1,000 mcg PO DAILY 02/13/24 omeprazole 20 mg capsule,delayed release 20 mg PO DAILY Heartburn 02/17/24 levothyroxine 125 mcg tablet (Synthroid) 125 mcg PO DAILY disorder of thyroid gland 02/27/24 fexofenadine 180 mg tablet (Aaliyah Allergy) 180 mg PO DAILY 03/03/24 hydrocortisone 100 mg/60 mL enema 100 mg (60 mL) MS BID 14 days #1,680 mL 03/30/24 furosemide 40 mg tablet 40 mg PO BIDLX 30 days #60 tabs 04/02/24 potassium chloride 10 mEq tablet,extended release 10 meq PO DAILY #30 tabs 04/02/24 propranolol 10 mg tablet 10 mg PO TID 30 days #90 tabs 04/02/24 spironolactone 25 mg tablet 25 mg PO BID 30 days #60 tabs 04/02/24 Hospital Course Procedures Thoracentesis Summary of Care Provided Minutes Spent on Discharge: 25 Hospital Course: PER HPI: JANETTE MENESES, is a 69 F who presented to the emergency department at [facility] on 03/31/2024 with shortness of breath. She stated this is similar to what she experienced when she had a large left pleural effusion. She had a thoracentesis on 02/28/2024 for a large left pleural effusion at which time almost 2100 cc were removed. She states she had resolution of her shortness of breath following about 3 days ago she began having worsening shortness of breath. She is currently undergoing evaluation of her liver for cirrhosis. Liver biopsy was performed on 03/20/2024 and the results are consistent with liver cirrhosis. She has an upcoming appointment with Dr. Glez on 04/03/2024 for follow-up for her liver disease. She has known grade 3 esophageal varices and portal hypertensive gastropathy noted on an EGD done on 03/09/2024. At this point she is only on Lasix 20 mg daily for her liver disease and has not really been watching her salt or fluid intake. She does indicate her symptoms are worse when she lies flat or when she exerts herself. She states she is relatively comfortable at rest. Vital signs on presentation showed temperature 96.8, heart rate 103, respiratory rate 18, blood pressure 151/70 and oxygen saturation was 100% on room air at rest however she desatted to 90% with exertion. She has a chronic stable pancytopenia. Coags are slightly abnormal with a PT of 16.8 and an INR of 1.4 with a APTT of 30.9. Chemistry panel was overtly unremarkable other than mild hyperglycemia with a blood sugar of 131. She did have a recent hemoglobin A1c on 02/17/2024 that was 5.7. Liver functions overtly unremarkable. Bilirubin is normal. Chest x-ray was performed and shows a large left pleural effusion. Given how symptomatic she is and how she quickly desats to 90% on room air with exertion it was felt prudent to admit her and obtain an inpatient thoracentesis tomorrow with probable discharge tomorrow as long as she is clinically stable. INTERVAL HISTORY: Patient's medications were adjusted on admission and her diuretics increased which did help her symptoms however still had the large effusion, this was drained on day of discharge and patient tolerated this well with improved symptoms, will be discharged on new medication regimen with instructions to follow-up with Dr. Glez on Saturday Physical Exam Narrative General: Alert, oriented, no apparent distress HEENT: Atraumatic, normocephalic Eyes: Anicteric, normal conjunctiva, extraocular movements grossly intact Neck: Supple Respiratory: Dull left base, normal respiratory effort Cardiovascular: Regular rate and rhythm GI: Slightly distended without rebound, guarding, rigidity Extremities: No edema Musculoskeletal: Moving all extremities Neuro: No overt focal neurological deficits Skin: No rashes appreciated Psych: Cooperative Weight / BMI Weight Weight: 90.3 kg Body Mass Index (BMI) 35.2 ABG / Lab / Microbiology Data 04/02/24 06:04 04/02/24 06:04 Laboratory: Laboratory Results - last 24 hr 04/01/24 17:02: POC Glucose 139 H 04/01/24 22:21: POC Glucose 184 H 04/02/24 06:04: WBC 3.7 L, RBC 3.40 L, Hgb 8.6 L, Hct 28.6 L, MCV 84.1, MCH 25.3 L, MCHC 30.1 L, RDW Std Deviation 64.1 H, RDW Coeff of Cornelio 21.1 H, Plt Count 86 L, MPV 10.7, Differential Comment , Sodium 140, Potassium 3.0 L, Chloride 106, Carbon Dioxide 27.0, Anion Gap 7, BUN 8, Creatinine 0.86, Estim Creat Clear Calc 64.92, Est GFR (MDRD) Af Amer 84, Est GFR (MDRD) Non-Af 70, BUN/Creatinine Ratio 9.4 L, Glucose 126 H, Calcium 8.3 L, Total Bilirubin 0.70, AST 37, ALT 24, A lkaline Phosphatase 140 H, Lactate Dehydrogenase 163, Total Protein 5.1 L, A lbumin 2.7 L, Globulin 2.4, Albumin/Globulin Ratio 1.1 04/02/24 06:32: POC Glucose 122 H 04/02/24 10:56: POC Glucose 164 H 04/02/24 : Fluid WBC 0.154, Fluid Tot Cell Count 0.200 H, Fld Polynuclear WBCs # 0.020, Fld Polynuclear WBCs % 13.0, Fluid Mononuclear WBCs 0.134, Fld Mononuclear WBCs % 87.0 Radiography Diagnostic Testing: Radiology Impression Thoracentesis Ultrasound 04/02/24 08:00 IMPRESSION: Ultrasound-guided left thoracentesis. Electronically Signed: Timmy Maldonado MD at 14:15 EDT , Chest X-Ray 04/02/24 13:55 IMPRESSION: Status post left thoracentesis. No evidence of pneumothorax. Residual pleural-parenchymal changes seen at the left lung base. Electronically Signed: Timmy Maldonado MD at 14:14 EDT , D/C Instructions Discharge Diet: - (Low-sodium, fluid restriction of 1.7 L) Meaningful Use Info Meaningful Use Meaningful Use Diagnoses (Choose all that apply): None applicable Ischemic Stroke Statin Dosing Therapy Reference: STATIN DOSE THERAPY REFERENCE: * Patients > 75 years receive moderate or high dose statin therapy. * Patients 75 years or YOUNGER should receive HIGH intensity statin dose unless contraindicated. You will be required to document reason for non-treatment if statin daily dose does not meet guidelines. HIGH DOSE STATIN THERAPY DAILY Atorvastatin > than or = to 40 mg Rosuvastatin > than or = to 20 mg Amlodipine + Atorvastatin > than or = to 2.5/40 mg Ezetimibe + Simvastatin 10/80 mg Simvastatin 80mg Discharge Plan Admission Admit Date/Time: 03/31/24 17:02 Primary Reason for Your Visit: Shortness of breath, required thoracentesis Attending Provider: Tiffanie Velázquez Primary Care Provider: Juan Locke Consulting Providers: Heaven Nichols Instructions Patient Instructions: KURT RN Thoracentesis Dc Additional Instructions / Restrictions: DISCHARGE INSTRUCTIONS PLEASE READ *Please take this with you to your next doctors appointment* -You have been started on propranolol 10 mg 3 times daily -You have also been started on spironolactone 25 mg twice daily -Your Lasix (furosemide) have been increased to 40 mg twice daily, due to the increase a new prescription has been sent to preferred pharmacy on file -Your losartan was discontinued due to the other medication changes -You will be discharged with potassium supplementation so will be important to get your labs rechecked as below -Would recommend lab work (BMP) to check your potassium and kidney function in 2 to 3 days through your primary care physician's office. Please call their office upon discharge to obtain order for lab work. -Please keep your appointment in the GI office tomorrow -Please call your primary care provider's office upon discharge to schedule a hospital follow up within 1 week. -For any concerning signs or symptoms please call 911 or proceed to the nearest emergency department Discharge Orders/Prescriptions Prescriptions: New furosemide 40 mg Tablet 40 mg PO BIDLX 30 Days Qty: 60 0RF spironolactone 25 mg Tablet 25 mg PO BID 30 Days Qty: 60 0RF propranolol 10 mg Tablet 10 mg PO TID 30 Days Qty: 90 0RF potassium chloride 10 mEq tablet extended release 10 meq PO DAILY Qty: 30 0RF Continued Handicap Placard See Rx Instructions .ROUTE .COMPLEX Qty: 1 0RF Rx Instructions: 12weeks Trulicity 0.75 mg/0.5 mL pen injector 0.75 mg subcut QWEEK Patient Comments: pt takes on saturdays ascorbic acid (vitamin C) 500 mg tablet 500 mg PO DAILY cholecalciferol (vitamin D3) 25 mcg (1,000 unit) capsule 25 mcg PO DAILY cyanocobalamin (vitamin B-12) 1,000 mcg capsule 1,000 mcg PO DAILY ergocalciferol (vitamin D2) 50,000 UNIT capsule 50,000 unit PO Q7D Patient Comments: pt takes on sundays duloxetine 60 MG capsule,delayed release(DR/EC) 60 mg PO DAILY omeprazole 20 mg capsule,delayed release(DR/EC) 20 mg PO DAILY albuterol sulfate 90 mcg/actuation HFA aerosol inhaler 1 - 2 puff INHALATION PRN PRN (Reason: ALLERGIES) fexofenadine [Aaliyah Allergy] 180 mg tablet 180 mg PO DAILY levothyroxine [Synthroid] 125 mcg tablet 125 mcg PO DAILY hydrocortisone 100 mg/60 mL enema 100 mg MS BID 14 Days Qty: 1680 0RF Patient Comments: not picked up and started yet Discontinued losartan 50 MG tablet 50 mg PO DAILY furosemide [Lasix] 20 mg tablet 20 mg PO DAILY Qty: 30 2RF Referrals / Follow Up: Juan Locke DO [Primary Care Provider] - Within 1 Week Glenn Glez MD [Med Staff - Active Staff] - (Follow with Dr. Glez in the GI office tomorrow as previously scheduled) Disposition Disposition (needs filled in before D/C Order can be placed): Home, Self Care Charges/Coding Visit Charges Inpatient E&M: 02012 Disch Hosp
[2024-04-02 15:50] LABS: Cytology, Body Fluid / CSF SEE PATHOLOGY REPORT
[2024-04-02 16:06] LABS: Lymphocytes 30 %; Macrophages 50 %; Monocytes 10 %; Neutrophil (Segs) 10 %
[2024-04-02 16:07] LABS: Appearance/Body Fluid CLOUDY; Auto B Fluid Analyzer BKGD Ct COUNTS W/IN LIMITS (W/IN LIMITS); Body Fluid QC Type(s) BF1Q,BF2Q; Color/Body Fluid YELLOW; Source- Body Fluid THORACENTESIS
[2024-04-02 16:29] LABS: Bedside Glucose 164 mg/dL (74-106)
[2024-04-03 12:52] LABS: Pathologist Comment/Body Fluid Reviewed
== END 2024-04-02 17:50 | disposition home or self-care (01) ==
LOC: ED 17:11 → MS3 17:14
PROVIDERS: Admitting Provider Internal Medicine; Emergency Provider Emergency Medicine; PCP Student in an Organized Health Care Education/Training Program; Visit Provider Internal Medicine
DX: J90 Pleural effusion, not elsewhere classified (principal); D61.818 Other pancytopenia; I85.00 Esophageal varices without bleeding; K76.6 Portal hypertension; E11.9 Type 2 diabetes mellitus without complications; E03.9 Hypothyroidism, unspecified; Z79.85 Long-term (current) use of injectable non-insulin antidiabetic drugs; Z87.891 Personal history of nicotine dependence; I10 Essential (primary) hypertension; J98.11 Atelectasis; K75.81 Nonalcoholic steatohepatitis (NASH); Z79.890 Hormone replacement therapy; Z79.899 Other long term (current) drug therapy; E55.9 Vitamin D deficiency, unspecified; G47.33 Obstructive sleep apnea (adult) (pediatric); E66.9 Obesity, unspecified; Z68.35 Body mass index [BMI] 35.0-35.9, adult; F32.A Depression, unspecified
CPT/HCPCS: 32555; 36415; 71045; 71046; 80053; 82945; 82962; 83615; 83735; 83880; 84100; 84156; 84157; 85025; 85027; 85610; 85730; 87070; 87075; 87205; 88108; 88305; 88313; 89050; 94668; 96360; 96361; 96372; 99221; 99252; 99283; A4216; G0378; G0463

== ENCOUNTER → 2024-04-10 | Outpatient (CLI) | payer MEDICARE, SELFPAY ==
--- NOTE | 2024-04-10 09:53 | US_ITS ---
STUDY: ABDOMINAL ULTRASOUND - RIGHT UPPER QUADRANT; ELASTOGRAPHY REASON FOR VISIT: Female, 69 years old. History of cirrhosis. TECHNIQUE: Ultrasound evaluation of the right upper quadrant was performed with real-time and static monroe-scale imaging. Point quantification shear wave elastography was performed (quickhuddle). TECHNICAL QUALITY: Adequate. COMPARISON: Comparison is made with prior CT scan of the abdomen and pelvis dated January 29, 2024. FINDINGS: Liver: The liver measures 12.9 cm. There is a heterogeneous echogenicity of the liver. The bile ducts are within normal limits. There is hepatic color flow. The direction of portal flow is hepatopetal. There is no demonstrated mass lesion. Median liver stiffness measured 16.1 kPa. Gallbladder: Normal distended gallbladder. The gallbladder wall measures 2.4 mm. There is a negative sonographic Andrews''s sign. There is no pericholecystic fluid. There are no gallstones. Common Bile Duct (C.B.D.): The common bile duct measures 4.3 mm. Pancreas: There is normal echogenicity of the visualized pancreas. There is no demonstrated pancreatic mass or cyst. Right Kidney: The patient is status post right nephrectomy. IMPRESSION: 1. Liver stiffness measures 16.1 kPa compatible with F3-F4 (Moderate to severe liver fibrosis) Metavir score. Electronically Signed: Timmy Maldonado MD at 14:59 EDT , STUDY: ABDOMINAL ULTRASOUND - LEFT UPPER QUADRANT REASON FOR EXAM: Female, 69 years old. Cirrhosis -- including spleen, ascites TECHNIQUE: Transabdominal ultrasound was performed with real-time and static monroe scale imaging. TECHNICAL QUALITY: Adequate. COMPARISON: None. FINDINGS: Spleen: Normal size of the spleen. The spleen measures 11.2 cm x 7 cm x 6.3 cm. US/ABD Limited w/ Elastography IMPRESSION: Normal splenic sonogram. Electronically Signed: Timmy Maldonado MD at 14:59 EDT ,
== END | disposition home or self-care (01) ==
PROVIDERS: PCP Student in an Organized Health Care Education/Training Program; Referring Provider Internal Medicine; Visit Provider Internal Medicine
DX: K74.60 Unspecified cirrhosis of liver (principal); D61.818 Other pancytopenia; R18.8 Other ascites
CPT/HCPCS: 76705; 76981

== ENCOUNTER → 2024-08-07 | Outpatient (CLI) | payer MEDICARE, SELFPAY ==
[2024-08-07 11:16] LABS: Absolute Lymphocyte Count 0.93 X10^3/uL (0.83-4.51); Absolute Neutrophil Count 2.2 X10^3/uL (2.0-7.7); Basophil# 0.01 X10^3/uL; Basophil% 0.3 % (0-1); Eosinophil# 0.12 X10^3/uL; Eosinophils% 3.4 % (0-5); Hematocrit 22.8 % (37-47); Hemoglobin 7.6 g/dL (12.0-15.0); Lymphocyte # 0.93 X10^3/ul (0.83-4.51); Mean Corp Hgb Conc 33.3 g/dL (32-36); Mean Corpuscular Hgb 30.3 pg (27.0-32.0); Mean Corpuscular Volume 90.8 fL (81-99); Mean Platelet Vol. 10.3 fl (6.2-12.0); Monocyte# 0.29 X10^3/uL; Monocyte% 8.1 % (0-10); NRBC Flagged by Analyzer 0 % (0-5); Neutrophil # 2.21 X10^3/uL (2.7-7.7); Neutrophil % 61.6 % (47-70); Platelet Count 107 K/mm3 (150-450); RBC Distribution Width CV 15.4 % (11.6-14.6); RBC Distribution Width SD 47.5 fl (35.1-43.9); Red Blood Count 2.51 M/mm3 (4.2-5.4); White Blood Count 3.6 K/mm3 (4.4-11.0)
[2024-08-07 11:57] LABS: Vitamin D,25 Hydroxy 69.6 ng/mL
[2024-08-07 12:02] LABS: ALB/GLOB Ratio 1.2 RATIO (0.9-2.4); AST(SGOT) 18 U/L (15-37); Alanine Aminotransfer ALT/SGPT 26 U/L (13-56); Albumin, Serum 3.2 g/dL (3.2-5.0); Alkaline Phosphatase 90 U/L (45-117); Anion Gap 7 (5-15); BUN 21 mg/dL (7-18); BUN/Creat Ratio 16.8 RATIO (10-20); CRP < 2.90 mg/L (0.0-3.0); Calcium,Total 9.3 mg/dL (8.5-10.1); Chloride 109 mmol/L (98-107); Cholesterol 124 mg/dL (200); Creatinine, Serum 1.25 mg/dL (0.55-1.02); EST Glomerular Filtration Rate 45 mL/min (>60); Est Glom Filt Rate - Afr Amer 54 mL/min (>60); Globulin 2.6 g/dL (2.2-4.2); Glucose 223 mg/dL (74-106); Hemoglobin A1c 5.9 % (3.8-5.6); High Density Lipoprotein 51 mg/dL; LDH 129 U/L (84-246); Phosphorus 2.9 mg/dL (2.5-4.9); Potassium 3.7 mmol/L (3.5-5.1); Protein, Total 5.8 g/dL (6.4-8.2); Sodium Level 138 mmol/L (136-145); Triglycerides 63 mg/dL; Very Low Density Lipoprotein 13 mg/dL (5-40)
[2024-08-07 12:08] LABS: International Normalized Ratio 1.2; Prothrombin Time (Protime)PT. 15.1 SECONDS (11.7-14.9)
[2024-08-08 04:08] LABS: AFP, Tumor Marker < 1.8 ng/mL (0.0-9.2)
[2024-08-10 16:10] LABS: Calprotectin, Stool 73 ug/g (0-120)
== END | disposition home or self-care (01) ==
LOC: LABSPEC 10:43
PROVIDERS: PCP Student in an Organized Health Care Education/Training Program; Referring Provider Internal Medicine Gastroenterology; Visit Provider Internal Medicine
DX: R18.8 Other ascites (principal); D61.818 Other pancytopenia; K74.60 Unspecified cirrhosis of liver; E11.9 Type 2 diabetes mellitus without complications; M81.0 Age-related osteoporosis without current pathological fracture; E78.5 Hyperlipidemia, unspecified; R19.7 Diarrhea, unspecified; K63.89 Other specified diseases of intestine; K58.9 Irritable bowel syndrome, unspecified
CPT/HCPCS: 36415; 80053; 80061; 82105; 82140; 82306; 83036; 83615; 83630; 83735; 83993; 84100; 85025; 85610; 86140

== ENCOUNTER → 2024-08-11 | Outpatient (CLI) | payer MEDICARE, SELFPAY ==
[2024-08-14 02:07] LABS: Pancreatic Elastase, Fecal > 800 (>200)
== END | disposition home or self-care (01) ==
LOC: LABSPEC 12:29
PROVIDERS: PCP Student in an Organized Health Care Education/Training Program; Referring Provider Internal Medicine Gastroenterology; Visit Provider Internal Medicine Gastroenterology
DX: R19.7 Diarrhea, unspecified (principal); K58.9 Irritable bowel syndrome, unspecified
CPT/HCPCS: 82653; 87177; 87209; 87329; 87506

== ENCOUNTER 2024-08-26 17:02 | Emergency (ER) | payer MEDICARE, SELFPAY ==
[2024-08-26 17:03] VITALS: BP 119/69; PULSE 89; RESP 16; TEMP 36.4; O2SAT 100; BMI 33.8
--- NOTE | 2024-08-26 17:10 | RAD_ITS ---
INDICATION: Trauma, fall, left arm injury and pain EXAMINATION/TECHNIQUE: X-RAY - LEFT XR Humerus Min 2 Views 3 VIEWS COMPARISON: None. FINDINGS: SOFT TISSUES: No soft tissue swelling or gas. No radiopaque foreign body. BONES/JOINTS: Impacted and mildly angulated fracture at the surgical neck of the humerus. Humeral head located in the glenoid fossa. Joint spaces anatomically aligned. No sclerotic or destructive changes observed. RAD/Humerus min 2 Views IMPRESSION: Impacted fracture surgical neck left humerus. Electronically Signed: Kulwant Donovan MD at 18:25 EST ,
--- NOTE | 2024-08-26 17:52 | EDS_ITS ---
HPI History of Present Illness Chief Complaint: Upper Extremity Injury Informant: patient Narrative Narrative: 69-year-old female had a fall today, she states that she stumbled after not picking her foot up and that she was walking into store, she fell against the ground and an outdoor ice storage chest. She injured her left shoulder. She is right-hand dominant. She denies any other pain or injury. [facility] Medical History Ascites Cirrhosis Iron deficiency anemia Lung nodule Hemorrhoids History of diabetes mellitus History of cirrhosis Anemia Pleural effusion on left Exertional dyspnea Chest pain Wears contact lenses Wears glasses Post-menopausal Anxiety Alcohol use Thyroid disease History of renal disease Anemia Back pain History of diverticulitis Gastric reflux Former smoker Sleep apnea Chronic cough S/p nephrectomy Depression Migraines HTN (hypertension) Diabetes Home Medications ?Medication ?Instructions ?Recorded ?Last Taken ?Type duloxetine 60 mg capsule,delayed 60 mg PO DAILY 11/06/17 03/30/24 History release ergocalciferol (vitamin D2) 1,250 50,000 unit PO Q7D 11/06/17 Unknown History mcg (50,000 unit) capsule Handicap Placard See Rx Instructions .Route 03/06/19 Unknown Rx .COMPLEX Osteoarthritis #1 unit albuterol sulfate 90 mcg/actuation 1 - 2 puff inhalation PRN PRN 02/20/23 03/16/24 History aerosol inhaler ALLERGIES dulaglutide 0.75 mg/0.5 mL 0.75 mg subcut QWEEK 10/10/23 03/28/24 History subcutaneous pen injector (Trulicity) ascorbic acid (vitamin C) 500 mg 500 mg PO DAILY 02/13/24 Unknown History tablet cholecalciferol (vitamin D3) 25 25 mcg PO DAILY 02/13/24 03/28/24 History mcg (1,000 unit) capsule cyanocobalamin (vitamin B-12) 1,000 mcg PO DAILY 02/13/24 03/28/24 History 1,000 mcg capsule omeprazole 20 mg capsule,delayed 20 mg PO DAILY Heartburn 02/17/24 03/30/24 H istory release levothyroxine 125 mcg tablet 125 mcg PO DAILY disorder of 02/27/24 03/31/24 History (Synthroid) thyroid gland fexofenadine 180 mg tablet 180 mg PO DAILY 03/03/24 03/30/24 History (Aaliyah Allergy) propranolol 10 mg tablet 10 mg PO TID 30 days #90 tabs 04/02/24 Unknown Rx furosemide 40 mg tablet 20 mg (1/2 x 40 mg) PO QDAY 30 07/07/24 Unknown Rx days #15 tabs spironolactone 50 mg tablet 50 mg PO BID #30 tabs 07/07/24 Unknown Rx oxycodone 5 mg capsule 5 mg PO Q6H PRN pain 3 days #10 08/26/24 Unknown Rx caps Allergy/AdvReac Type Severity Reaction Status Date / Time adhesive tape Allergy Rash Verified 08/26/24 17:05 Family History Father Colon cancer Brother Cancer bladder Surgical History History of thoracentesis Hx of colonoscopy History of esophagogastroduodenoscopy (EGD) S/P shoulder surgery S/P hysterectomy History of lobectomy of thyroid Social History Smoking Status: Former smoker alcohol intake: current alcohol intake frequency: holidays/special occasions only ROS ROS ED Constitutional Constitutional ED: Denies chills or fever(s) Eyes Eyes: Denies change in vision or diplopia ENT ENT ED: Denies ear pain, epistaxis, facial pain or rhinorrhea Cardiovascular Cardiovascular: Denies chest pain or palpitations Respiratory/Chest Respiratory/Chest: Denies cough or dyspnea Gastrointestinal Gastrointestinal: Denies abdominal pain, diarrhea, melena, nausea or vomiting Genitourinary Genitourinary ED: Denies dysuria or hematuria Musculoskeletal Musculoskeletal: Reports extremity pain; Denies back pain or neck pain Integumentary Denies abscess, Abrasions, laceration or rash Neurologic Neurologic: Denies confusion, headache(s), paresthesias or weakness EXAM Physical Exam Const Vital Signs: 08/26/24 17:03 Temperature 97.6 F L Temperature Source Temporal Pulse Rate 89 Respiratory Rate 16 Blood Pressure 119/69 Blood Pressure Mean 85 Pulse Ox 100 Oxygen Delivery Method Room Air Positive well nourished and well developed General Appearance ED: well developed and NAD HEENT Reports TM's clear and nasal mucous membranes and turbinates normal HEENT Narrative: No signs of head or facial trauma. No Banks sign no CSF otorhinorrhea, no raccoon eyes. No facial tenderness. atraumatic Face and Sinus: Negative for facial tenderness Tympanic Membrane ED: Yes TM's clear Eyes PERRL and EOMs intact bilaterally Visual Acuity: other Other Details: no entrapment or pain with extraocular movements Neck full ROM and supple General: Negative for tenderness Chest Wall inspection of chest normal and palpation of chest normal Chest: symmetrical chest wall rise; Negative for crepitus or tenderness Resp normal respiratory effort and clear to auscultation bilaterally Percussion: other equal BS bilat Cardio no murmurs Rate: regular rate Rhythm: regular rhythm GI normal to inspection, nondistended, normoactive bowel sounds, soft to palpation and non-tender Back/Spine normal ROM Cervical Spine: Negative for cervical spine tenderness Thoracic Spine / Upper Back: Negative for thoracic spinal tenderness Lumbar Spine / Lower Back: Negative for lumbar spinal tenderness Extremity Extremity Narrative: Tender left proximal humerus. No acromioclavicular joint tenderness or deformity. Limited range of motion left shoulder but no gross deformities. Can range the elbow without difficulty and no tenderness anywhere else in all 4 extremities. Neurovascular intact distally left upper extremity. Good sensation axillary nerve distribution. General Extremety ED: Yes tenderness Neuro oriented x3, CN's II-XII intact bilaterally, moves all extremities, no focal motor deficits and no sensory deficits noted Adam Coma Scale: document GCS findings Spontaneous Obeys Commands Oriented 15 Sensorium / Orientation: awake and alert Psych mental status grossly normal and thought process normal Skin no wounds Lesions: no lesions Rashes: no rashes MDM MDM MDM Narrative Medical decision making narrative: Three-view x-ray series of the left humerus on my interpretation shows an impacted proximal humerus fracture. It is either a 1 partner a 2 part, lesser tuberosity may be off. At this time sling and pain control is warranted with close outpatient orthopedic follow-up she will be referred and given a prescription for oxycodone since she has a history of cirrhosis. Has tolerated that in the past. No signs of any other injury and she is ambulatory without difficulty. Discharge Plan Triage Chief Complaint: Upper Extremity Injury ED Provider: Yared Peraza Dx/Rx/DC Orders Clinical Impression: Closed fracture of proximal end of left humerus, Fall due to stumbling Instructions: Understanding a Humerus Fracture, ED Sling Prescriptions: New oxycodone 5 mg capsule 5 mg PO Q6H PRN (Reason: pain) 3 Days Qty: 10 0RF No Action Handicap Placard See Rx Instructions .ROUTE .COMPLEX Qty: 1 0RF Rx Instructions: 12weeks Trulicity 0.75 mg/0.5 mL pen injector 0.75 mg subcut QWEEK Patient Comments: pt takes on saturdays ascorbic acid (vitamin C) 500 mg tablet 500 mg PO DAILY cholecalciferol (vitamin D3) 25 mcg (1,000 unit) capsule 25 mcg PO DAILY cyanocobalamin (vitamin B-12) 1,000 mcg capsule 1,000 mcg PO DAILY furosemide 40 mg tablet 20 mg PO QDAY 30 Days Qty: 15 0RF spironolactone 50 mg tablet 50 mg PO BID Qty: 30 2RF Rx Instructions: Hold if serum POTASSIUM is more than 5.1 ergocalciferol (vitamin D2) 50,000 UNIT capsule 50,000 unit PO Q7D Patient Comments: pt takes on sundays duloxetine 60 MG capsule,delayed release(DR/EC) 60 mg PO DAILY omeprazole 20 mg capsule,delayed release(DR/EC) 20 mg PO DAILY albuterol sulfate 90 mcg/actuation HFA aerosol inhaler 1 - 2 puff INHALATION PRN PRN (Reason: ALLERGIES) fexofenadine [Aaliyah Allergy] 180 mg tablet 180 mg PO DAILY levothyroxine [Synthroid] 125 mcg tablet 125 mcg PO DAILY propranolol 10 mg Tablet 10 mg PO TID 30 Days Qty: 90 0RF Primary Care Provider: Juan Locke Referrals: Azar Ghosh DO [Med Staff - Active Staff] - As soon as possible (ask for first avail provider) Print Language: Syriac Disposition Disposition: Home, Self Care
[2024-08-26] MEDS: oxyCODONE 5 MG Tablet PO (17:56)
[2024-08-26 17:58] VITALS: BP 120/62; PULSE 87; RESP 15; TEMP 36.7; O2SAT 95
== END 2024-08-26 18:21 | disposition home or self-care (01) ==
LOC: ED 18:13
PROVIDERS: Emergency Provider Emergency Medicine; PCP Student in an Organized Health Care Education/Training Program; Referring Provider Emergency Medicine; Visit Provider Emergency Medicine
DX: S42.212A Unspecified displaced fracture of surgical neck of left humerus, initial encounter for closed fracture (principal); E11.9 Type 2 diabetes mellitus without complications; W01.198A Fall on same level from slipping, tripping and stumbling with subsequent striking against other object, initial encounter; Y93.01 Activity, walking, marching and hiking; Y92.512 Supermarket, store or market as the place of occurrence of the external cause; I10 Essential (primary) hypertension; K21.9 Gastro-esophageal reflux disease without esophagitis; F32.A Depression, unspecified; F41.9 Anxiety disorder, unspecified; G47.30 Sleep apnea, unspecified; Z90.5 Acquired absence of kidney; Z87.19 Personal history of other diseases of the digestive system; Z79.85 Long-term (current) use of injectable non-insulin antidiabetic drugs; Z87.448 Personal history of other diseases of urinary system; Z79.899 Other long term (current) drug therapy; Z87.891 Personal history of nicotine dependence
CPT/HCPCS: 73060; 99283

== ENCOUNTER → 2024-10-22 | Outpatient (CLI) | payer MEDICARE, SELFPAY ==
--- NOTE | 2024-10-22 10:36 | MRI_ITS ---
PROCEDURE: MRI ABD WITH AND W/O CONTRAST REASON FOR EXAM: Mesenteric mass TECHNIQUE: Multiplanar, multisequence MRI of the upper abdomen without and with intravenous gadolinium-based contrast. CONTRAST: COMPARISON: CT of the abdomen and pelvis dated January 29, 2024 FINDINGS: Liver: Nodularity of the liver contour, suspicious for cirrhosis. No suspicious lesions are demonstrated. Biliary: The gallbladder intrahepatic ducts and common bile duct appear normal. Pancreas: No mass or ductal dilation. Spleen: Splenomegaly. Adrenals: No evidence of adrenal mass. Kidneys: Status post right nephrectomy. Left kidney is grossly unremarkable. Peritoneum / Retroperitoneum: No ascites. Lymph Nodes: No upper abdominal lymphadenopathy. Major Vessels: The abdominal aorta and IVC are unremarkable. The portal and hepatic veins are patent. Bones: Bone marrow signal is unremarkable. MRI/MRI Abd WITH and W/O Contrast IMPRESSION: No mesenteric masses demonstrated. Cirrhotic liver. Splenomegaly. Reading Location: [facility]
[2024-10-22 11:08] LABS: CREATININE FINGERSTICK < 1.0 mg/dL (0.55-1.02); EGFR FINGERSTICK > 60.0000 mL/min (>60)
[2024-10-30 16:09] LABS: AFP, Tumor Marker 2.3 ng/mL (0.0-9.2)
== END | disposition home or self-care (01) ==
PROVIDERS: PCP Student in an Organized Health Care Education/Training Program; Referring Provider Internal Medicine Gastroenterology; Visit Provider Internal Medicine Gastroenterology
DX: K63.89 Other specified diseases of intestine (principal); K74.60 Unspecified cirrhosis of liver; R18.8 Other ascites
CPT/HCPCS: 36415; 74183; 82105; 82378; 82677; 84702; 86301; 86304; A9575

== ENCOUNTER 2024-11-07 11:15 | Inpatient (IN) | payer MEDICARE, SELFPAY ==
[2024-11-07] VITALS (19 sets, daily range): BP systolic 85–120; BP diastolic 40–98; PULSE 74–108; RESP 14–27; TEMP 36.5–37; O2SAT 96–100; BMI 38.3; BMI 35.4
--- NOTE | 2024-11-07 11:29 | EKG12_ITS ---
Test Reason : GENERAL Blood Pressure : */* mmHG Vent. Rate : 93 BPM Atrial Rate : 93 BPM P-R Int : 170 ms QRS Dur : 72 ms QT Int : 360 ms P-R-T Axes : 70 59 85 degrees QTcB Int : 447 ms Normal sinus rhythm Normal ECG Confirmed by Luis Ochoa ([id number]), greeting card editor JUAN DAVID JOSEPH ([id number]) on 11/09/2024 10:17:04 AM Referred By: Confirmed By: Luis Ochoa
--- NOTE | 2024-11-07 11:30 | CT_ITS ---
PROCEDURE: ABDOMEN/PELVIS WITHOUT CONT REASON FOR EXAM: Flank pain/trauma TECHNIQUE: Abdomen and pelvis CT with intravenous contrast. COMPARISON: None. FINDINGS: Lung bases: Clear Liver: Nodularity of the liver.. Gallbladder: Present. Spleen: Enlarged with punctate calcification Pancreas: Diffuse fatty atrophy. Adrenals: Unremarkable. Kidneys: Solitary left kidney with no hydronephrosis. 3 mm nonobstructive calculus. Bladder: Unremarkable. Reproductive Organs: Unremarkable. Bowel: No obstruction Appendix: Measures 5.4 mm with nonspecific fat stranding. Lymph nodes: No suspicious lymph node enlargement. Vasculature: Major vascular structures are unremarkable. Peritoneum / Retroperitoneum: No ascites. No free air. Bones: Degenerative changes of the spine. Other: Fat containing umbilical hernia with defect measuring 1.[address]/Abdomen/Pelvis without Cont IMPRESSION: 1. Nonspecific fat stranding in the right lower quadrant about the appendix wh ich is not dilated. Correlate with point tenderness in right lower quadrant. 2. Solitary left kidney with nonobstructive calculi 3. Sequela of portal hypertension with cirrhosis and splenomegaly 4. Other findings as above One or more dose reduction techniques were used (e.g., Automated exposure contr ol, adjustment of the mA and/or kV according to patient size, use of iterative reconstruction technique). Reading Location: [facility]
--- NOTE | 2024-11-07 11:31 | EX.ED.DYSGE1 ---
HPI History of Present Illness Chief Complaint: Weakness Narrative Narrative: 69-year-old female past medical history of nonalcoholic cirrhosis presents with her sister because of generalized weakness and syncopal episode that happened 2 days ago. She was at home by herself. She has history of anemia as well and receives iron transfusion. Patient and sister states that she required blood transfusion last year and is presenting with the same symptoms of generalized weakness. However, they state that she is never passed out. Sister states that she looks the worst that she has ever been. Patient states that when she turns 69, her health started to decline. Sometimes she has had fluid on her lungs which needed to be removed but never ascites. When she fell 2 days ago, she sustained a broken tooth and bruising to her lip and complains of left flank side pain. Patient states that she became very lightheaded prior to her syncopal episode. She endorses a generalized weakness that continues. [facility] Medical History Ascites Cirrhosis Iron deficiency anemia Lung nodule Hemorrhoids History of diabetes mellitus History of cirrhosis Anemia Pleural effusion on left Exertional dyspnea Chest pain Wears contact lenses Wears glasses Post-menopausal Anxiety Alcohol use Thyroid disease History of renal disease Anemia Back pain History of diverticulitis Gastric reflux Former smoker Sleep apnea Chronic cough S/p nephrectomy Depression Migraines HTN (hypertension) Diabetes Home Medications ?Medication ?Instructions ?Recorded ?Last Taken ?Type duloxetine 60 mg capsule,delayed 60 mg PO DAILY 11/06/17 11/07/24 History release ergocalciferol (vitamin D2) 1,250 50,000 unit PO SA 11/06/17 11/07/24 History mcg (50,000 unit) capsule albuterol sulfate 90 mcg/actuation 1 - 2 puff inhalation PRN PRN 02/20/23 03/16/24 History aerosol inhaler ALLERGIES dulaglutide 0.75 mg/0.5 mL 0.75 mg subcut SA 10/10/23 10/31/24 History subcutaneous pen injector (Trulicity) cyanocobalamin (vitamin B-12) 1,000 mcg PO DAILY 02/13/24 11/07/24 History 1,000 mcg capsule omeprazole 20 mg capsule,delayed 20 mg PO DAILY Heartburn 02/17/24 11/07/24 History release levothyroxine 125 mcg tablet 125 mcg PO DAILY disorder of 02/27/24 11/07/24 History (Synthroid) thyroid gland fexofenadine 180 mg tablet 180 mg PO DAILY 03/03/24 11/07/24 History (Aaliyah Allergy) propranolol 10 mg tablet 10 mg PO TID 30 days #90 tabs 04/02/24 11/07/24 Rx spironolactone 50 mg tablet 50 mg PO BID #30 tabs 07/07/24 11/07/24 Rx oxycodone 5 mg tablet 5 mg PO Q6H PRN pain 3 days #10 08/26/24 Unknown Rx tabs bupropion HCl 100 mg tablet 100 mg PO QPM 11/07/24 11/06/24 History bupropion HCl 100 mg tablet 200 mg PO DAILY 11/07/24 11/07/24 History furosemide 40 mg tablet 40 mg PO QDAY 11/07/24 11/07/24 History Allergy/AdvReac Type Severity Reaction Status Date / Time adhesive tape Allergy Rash Verified 08/31/24 09:02 Family History Father Colon cancer Brother Cancer bladder Surgical History History of thoracentesis Hx of colonoscopy History of esophagogastroduodenoscopy (EGD) S/P shoulder surgery S/P hysterectomy History of lobectomy of thyroid Social History Smoking Status: Former smoker alcohol intake: current alcohol intake frequency: holidays/special occasions only ROS ROS ED ROS Narrative Constitutional: No fever, no chills. Positive generalized weakness. HEENT: No sore throat. No neck pain. Positive bruising to upper lip/broken tooth. No rhinorrhea. Cardiovascular: No chest pain. No palpitations. No pedal edema. Respiratory: No cough, no shortness of breath. Abdominal: No abdominal pain. No nausea. No vomiting. Genitourinary: No dysuria. No hematuria. Musculoskeletal: No myalgias. No arthralgias. Neurologic: No headaches. Positive lightheadedness and dizziness. Reported syncopal episode 2 days ago. Unknown duration. Skin: No rash. Positive pallor to skin. EXAM Physical Exam Narrative Exam Narrative: Afebrile. Vital signs noted. Nontoxic-appearing. Positive jaundice to skin with pallor to septic conjunctiva. PERRL, EOMI. Mild bruising to upper lip. Airway patent. Neck soft and supple. Cardiovascular examination reveals a regular rate and rhythm. Lungs clear to auscultation bilaterally. Abdomen soft and nontender with normal active bowel sounds. No guarding or rebound. Mild ascites. No bruising to flank noted. Neurological examination shows her to be awake, alert, nonfocal, nonlateralizing. Const Vital Signs: 11/07/24 11:16 11/07/24 11:46 11/07/24 12:23 Temperature 97.7 F L 98.1 F 98.3 F Temperature Source Temporal Oral Oral Pulse Rate 97 100 98 Respiratory Rate 18 18 18 Blood Pressure 116/41 L 118/71 103/57 L Blood Pressure Mean 66 86 72 Blood Pressure Source Blood Pressure Position Blood Pressure Location Pulse Ox 100 100 100 Oxygen Delivery Method Room Air Room Air Room Air 11/07/24 13:00 11/07/24 13:36 11/07/24 13:49 Temperature 98.3 F 97.9 F 97.9 F Temperature Source Oral Oral Pulse Rate 86 102 H 100 Respiratory Rate 16 18 20 H Blood Pressure 85/56 L 108/83 H 109/54 L Blood Pressure Mean 65 91 72 Blood Pressure Source Monitor Blood Pressure Position Semi-Fowlers Blood Pressure Location Right Arm Pulse Ox 100 100 100 Oxygen Delivery Method Room Air 11/07/24 13:51 Temperature 98.3 F Temperature Source Oral Pulse Rate 103 H Respiratory Rate 15 Blood Pressure 119/98 H Blood Pressure Mean 105 Blood Pressure Source Monitor Blood Pressure Position Semi-Fowlers Blood Pressure Location Right Arm Pulse Ox 100 Oxygen Delivery Method Room Air MDM MDM MDM Narrative Medical decision making narrative: Differential diagnosis includes but not limited to dehydration versus anemia requiring transfusion versus other infectious process causing generalized weakness. Laboratory work will be checked as well as UA. I do feel that she would require CT flank that given her liver disease she may have abnormal coagulopathy. In review of her prior problem list, she does have ascites and recurrent left pleural effusion as well as pancytopenia. EKG was obtained and interpreted by myself independently as normal sinus rhythm at 93 bpm without ectopy or acute ST changes. No STEMI. QTc normal at 447 ms. I reviewed her laboratory work and she has a white count of 9.3 that is normal, we received a call from laboratory that her hemoglobin is low at 5.1. Platelet count normal at 208. Patient will be typed and crossmatched for blood transfusion and I ordered 2 units initially for transfusion. I do feel that she will most likely require admission given her anemia requiring transfusions. Additionally, patient had stated that she has hemorrhoids and has small amount of rectal bleeding with each bowel movement. She also states that she has been having black stool since when she fell. She declines rectal examination currently. I reviewed her BMP and she has a chloride of 109 and a BUN of 49 with creatinine 1.24. AST is low at 9 which I think is nonspecific, normal alk phos of 95. Patient was consented for blood transfusion. As she has anemia requiring transfusion and probable GI bleeding, I do feel that she requires admission. I reviewed the radiology report of the CT of the abdomen pelvis without contrast to look for any large hematoma. Of note, patient had a transient drop in her blood pressure at 85/56. She had an MAP of 65 at this time. She will be bolused normal saline as she awaits blood transfusion. Her repeat blood pressure did elevate to 119/98. I reviewed the radiology report of the CT of the abdomen and pelvis which comments on a solitary kidney with nonobstructing calcifications. Additionally, there is nonspecific fat stranding around the appendix, but is not dilated. Repeat examination of her abdomen shows no tenderness in the right lower quadrant so I do not feel that the clinical correlation is consistent with acute appendicitis and that she requires any surgical intervention currently. Patient was discussed with Dr. Hernandez for admission to the PCU. Patient is in stable condition. History & Record Review Discussion w/independent historian: Patient and Family Lab Data Attestation: I reviewed the patient's lab results. Labs: Laboratory Results - last 24 hr 11/07/24 11:40 WBC 9.3 RBC 1.92 L Hgb 5.1 L* Hct 17.4 L MCV 90.6 MCH 26.6 L MCHC 29.3 L RDW Std Deviation 79.7 H RDW Coeff of Cornelio 25.4 H Plt Count 208 MPV 10.6 Immature Gran % (Auto) 0.600 Neut % (Auto) 71.1 H Lymph % (Auto) 18.8 L [place] % (Auto) 7.6 Eos % (Auto) 1.7 Baso % (Auto) 0.2 Absolute Neuts (auto) 6.6 Absolute Lymphs (auto) 1.75 Nucleated RBC % 0.2 Diff Path Review May foll Platelet Estimate A Polychromasia 1+ Anisocytosis 2+ Tear Drop Cells 1+ Ovalocytes 1+ Bite Cells 1+ PT 16.6 H INR 1.3 APTT 24.1 Sodium 136 Potassium 4.3 Chloride 109 H Carbon Dioxide 16.0 L Anion Gap 11 BUN 49 H Creatinine 1.24 H Estim Creat Clear Calc 46.18 Est GFR (MDRD) Af Amer 55 L Est GFR (MDRD) Non-Af 45 L BUN/Creatinine Ratio 39.5 H Glucose 282 H Calcium 8.9 Total Bilirubin 0.80 AST 9 L ALT 20 Alkaline Phosphatase 95 Total Protein 4.9 L Albumin 2.5 L Globulin 2.4 Albumin/Globulin Ratio 1.0 Blood Type A POSITIVE Antibody Screen NEGATIVE Crossmatch See Detail Radiography Diagnostic Testing: Clinical Impression(s) from Imaging Studies Abdomen/Pelvis CT 11/07/24 11:30 IMPRESSION: 1. Nonspecific fat stranding in the right lower quadrant about the appendix which is not dilated. Correlate with point tenderness in right lower quadrant. 2. Solitary left kidney with nonobstructive calculi 3. Sequela of portal hypertension with cirrhosis and splenomegaly 4. Other findings as above One or more dose reduction techniques were used (e.g., Automated exposure control, adjustment of the mA and/or kV according to patient size, use of iterative reconstruction technique). Reading Location: [facility] Management Discussion w/another healthcare provider: Hospitalist (Dr. Nasir Hernandez) Discharge Plan Dx/Rx/DC Orders Clinical Impression: Anemia requiring transfusions, Cirrhosis, Syncope Disposition Disposition: Acute Care Hospital [facility]
[2024-11-07 12:00] LABS: Absolute Lymphocyte Count 1.75 X10^3/uL (0.83-4.51); Absolute Neutrophil Count 6.6 X10^3/uL (2.0-7.7); Basophil# 0.02 X10^3/uL; Basophil% 0.2 % (0-1); Eosinophil# 0.16 X10^3/uL; Eosinophils% 1.7 % (0-5); Hematocrit 17.4 % (37-47); Lymphocyte # 1.75 X10^3/ul (0.83-4.51); Lymphocyte % 18.8 % (19-41); Mean Corp Hgb Conc 29.3 g/dL (32-36); Mean Corpuscular Hgb 26.6 pg (27.0-32.0); Mean Corpuscular Volume 90.6 fL (81-99); Mean Platelet Vol. 10.6 fl (6.2-12.0); Monocyte# 0.71 X10^3/uL; Monocyte% 7.6 % (0-10); NRBC Flagged by Analyzer 0.2 % (0-5); Neutrophil # 6.59 X10^3/uL (2.7-7.7); Neutrophil % 71.1 % (47-70); POSITIVE COUNT YES; POSITIVE MORPHOLOGY YES; Platelet Count 208 K/mm3 (150-450); RBC Distribution Width CV 25.4 % (11.6-14.6); RBC Distribution Width SD 79.7 fl (35.1-43.9); Red Blood Count 1.92 M/mm3 (4.2-5.4); White Blood Count 9.3 K/mm3 (4.4-11.0)
[2024-11-07 12:03] LABS: Differential Indicated SCAN CRITERIA MET; Hemoglobin 5.1 g/dL (12.0-15.0)
[2024-11-07 12:06] LABS: International Normalized Ratio 1.3; Partial Thromboplast Time 24.1 Seconds (24.1-36.2); Prothrombin Time (Protime)PT. 16.6 SECONDS (11.7-14.9)
[2024-11-07 12:08] LABS: AST(SGOT) 9 U/L (15-37); Alanine Aminotransfer ALT/SGPT 20 U/L (13-56); Albumin, Serum 2.5 g/dL (3.2-5.0); Alkaline Phosphatase 95 U/L (45-117); Anion Gap 11 (5-15); BUN 49 mg/dL (7-18); BUN/Creat Ratio 39.5 RATIO (10-20); Calcium,Total 8.9 mg/dL (8.5-10.1); Chloride 109 mmol/L (98-107); Creatinine, Serum 1.24 mg/dL (0.55-1.02); EST Glomerular Filtration Rate 45 mL/min (>60); Est Glom Filt Rate - Afr Amer 55 mL/min (>60); Estimated Creatinine Clearance 46.18 ml/min; Globulin 2.4 g/dL (2.2-4.2); Glucose 282 mg/dL (74-106); Potassium 4.3 mmol/L (3.5-5.1); Protein, Total 4.9 g/dL (6.4-8.2); Sodium Level 136 mmol/L (136-145)
[2024-11-07 12:30] LABS: Ovalocyte 1+; Polychromasia 1+; Tear Drop Cell 1+
[2024-11-07 12:31] LABS: Bite Cell 1+
[2024-11-07 12:32] LABS: Anisocytosis 2+; Platelet Estimate A (ADEQ)
[2024-11-07] MEDS: 0.9% Normal Saline (1000mL) 1,000 ML 999 ML IV (13:04)
--- NOTE | 2024-11-07 13:17 | ED.RN ---
Completed sepsis screen per Dr. Flanagan, pt not septic.
--- NOTE | 2024-11-07 13:55 | CASEMGMT ---
Care Management Face to Face with patient for initial transition planning/care coordination assessment in the ED.? This junior technical writer introduced self and role at [facility]. Patient alert and oriented. Patient willing to participate in assessment and is able to answer all questions appropriately.? Care providers, pharmacy, and demographics verified. ?Patient?s sisterFrancheska also present which patient consented to. Admitting Diagnosis: Anemia Requiring Transfusions; Weakness. Other diagnosis history: Including but may not be limited to: Non-Alcoholic Cirrhosis, DM, Iron Deficiency Anemia, Thyroid disease, HTN, Sleep Apnea, and Diverticulitis. PCP: Dr. Locke Specialists: Oncology: Dr. Eaton and Dr. Hernandez (surgeon). [place] Tier: Dr. Nash. Preferred Pharmacy: [facility] Insurance: Yes; [place] Prescription Benefit: Yes, [place] Living Will/HPOA: ?No but interested while in the hospital. LNOK: Patient is and does not have any children.? LNOK is patient?s sisterFrancheska of [place]. Living Arrangements: Patient currently lives alone in an apartment.? Patient denied having to ambulate any stairs and denied any environmental barriers. Transportation: Patient drives. DME: Grab bar in shower, shower chair and HHS. HHC: None historically.? Patient?s sister still works but helps regularly.? Patient having increased difficulty since breaking her left shoulder on 08/26/2024. SNF/Rehab: Patient denied any history of SNF or Rehab admissions. Community Resources: None at this time and no needs at this time. Behavioral Health History: Patient has a history of depression and anxiety, is on medications and reported medications are successfully managing symptoms at this time. Patient goals: Patient wishes to discharge home, denies need for home health care at this time due to patient?s sister helping. Patient?s sister did speak up and say it?s been getting harder so it may be helpful to re-visit the need for HHC prior to discharge. ?Patient denies any further needs or concerns at this time. Disposition Plan: admission to acute; RN CM/SW to follow for discharge planning needs that may arise. Deidra Pierson, UNDERWRITING SERVICE REPRESENTATIVE, NECK SKEWER
--- NOTE | 2024-11-07 14:01 | PCM.HP.STD ---
HPI - General General Date of Admission: 11/07/24 Date of Service: 11/07/24 Chief Complaint: Worsening fatigue and reported syncopal episode HPI Narrative JANETTE MENESES, is a 69 F who presented to [facility] ED on 11/07/2024 with worsening fatigue and a reported syncopal episode at home. Medical history is significant for cirrhosis with varices and iron deficiency anemia. Patient has had worsening fatigue and lightheadedness especially with standing and ambulation over the past several days. She had an episode a few days ago where she fell face first and had a broken tooth, bruising to her lip and left-sided abdominal/flank pain afterward. Sister notes that patient generally has seemed to decline over the past few months and has appeared especially fatigued and weak over the past several days. Patient does report some black stools over the past few days. Has history of hemorrhoids but denies any recent bright red blood in stools. In the ED hemoglobin was 5.1. Baseline hemoglobin is around 7-9. Initial blood pressure was in the 110 systolic but then dropped to the 80s systolic. She was given 1 L of IV fluids with improvement back to the 110s. CT abdomen pelvis showed sequelae of portal hypertension with cirrhosis and splenomegaly but no other concerning findings; notably did not show any ascites or any pleural effusions. 2 units of blood were ordered for her and hospitalist was contacted for admission. I saw the patient at bedside on the floor shortly after she arrived over from the ED. Patient had blood transfusion running at that time. She was laying comfortably on her side in bed, conversing normally and in no acute distress. She continued to feel fatigued currently but had no lightheadedness or dizziness at rest. She did report mild abdominal pain similar to previous days and suspects it is likely muscular from where she fell. She denies any fevers or chills. No other acute concerns at this time. [facility] Medical History Ascites Cirrhosis Iron deficiency anemia Lung nodule Hemorrhoids History of diabetes mellitus History of cirrhosis Anemia Pleural effusion on left Exertional dyspnea Chest pain Wears contact lenses Wears glasses Post-menopausal Anxiety Alcohol use Thyroid disease History of renal disease Anemia Back pain History of diverticulitis Gastric reflux Former smoker Sleep apnea Chronic cough S/p nephrectomy Depression Migraines HTN (hypertension) Diabetes Home Medications ?Medication ?Instructions ?Recorded ?Last Taken ?Type duloxetine 60 mg capsule,delayed 60 mg PO DAILY 11/06/17 11/07/24 History release ergocalciferol (vitamin D2) 1,250 50,000 unit PO SA 11/06/17 11/07/24 History mcg (50,000 unit) capsule albuterol sulfate 90 mcg/actuation 1 - 2 puff inhalation PRN PRN 02/20/23 03/16/24 History aerosol inhaler ALLERGIES dulaglutide 0.75 mg/0.5 mL 0.75 mg subcut SA 10/10/23 10/31/24 History subcutaneous pen injector (Trulicity) cyanocobalamin (vitamin B-12) 1,000 mcg PO DAILY 02/13/24 11/07/24 History 1,000 mcg capsule omeprazole 20 mg capsule,delayed 20 mg PO DAILY Heartburn 02/17/24 11/07/24 History release levothyroxine 125 mcg tablet 125 mcg PO DAILY disorder of 02/27/24 11/07/24 History (Synthroid) thyroid gland fexofenadine 180 mg tablet 180 mg PO DAILY 03/03/24 11/07/24 History (Aaliyah Allergy) propranolol 10 mg tablet 10 mg PO TID 30 days #90 tabs 04/02/24 11/07/24 Rx spironolactone 50 mg tablet 50 mg PO BID #30 tabs 07/07/24 11/07/24 Rx oxycodone 5 mg tablet 5 mg PO Q6H PRN pain 3 days #10 08/26/24 Unknown Rx tabs bupropion HCl 100 mg tablet 100 mg PO QPM 11/07/24 11/06/24 History bupropion HCl 100 mg tablet 200 mg PO DAILY 11/07/24 11/07/24 History furosemide 40 mg tablet 40 mg PO QDAY 11/07/24 11/07/24 History Allergy/AdvReac Type Severity Reaction Status Date / Time adhesive tape Allergy Rash Verified 08/31/24 09:02 Family History Father Colon cancer Brother Cancer bladder Surgical History History of thoracentesis Hx of colonoscopy History of esophagogastroduodenoscopy (EGD) S/P shoulder surgery S/P hysterectomy History of lobectomy of thyroid Social History Smoking Status: Former smoker alcohol intake: current alcohol intake frequency: holidays/special occasions only ROS Constitutional Constitutional: Reports fatigue and weakness; Denies chills or fever(s) Eyes Eyes: Denies change in vision Cardiovascular Cardiovascular: Reports dyspnea on exertion and lightheadedness; Denies chest pain Respiratory/Chest Respiratory/Chest: Reports shortness of breath with exertion; Denies cough, productive cough, shortness of breath at rest or wheezing Gastrointestinal Gastrointestinal: Reports melena; Denies abdominal pain, constipation, diarrhea, nausea or vomiting Genitourinary Genitourinary: Denies dysuria Musculoskeletal Musculoskeletal: Denies arthralgias or myalgias Neurologic Neurologic: Denies dizziness, focal weakness or headache(s) Vital Signs Vital Signs Vital Signs: 11/07/24 11:16 11/07/24 11:46 11/07/24 12:23 Temperature 97.7 F L 98.1 F 98.3 F Temperature Source Temporal Oral Oral Pulse Rate 97 100 98 Respiratory Rate 18 18 18 Blood Pressure 116/41 L 118/71 103/57 L Blood Pressure Mean 66 86 72 Blood Pressure Source Blood Pressure Position Blood Pressure Location Pulse Ox 100 100 100 Oxygen Delivery Method Room Air Room Air Room Air 11/07/24 13:00 11/07/24 13:36 11/07/24 13:49 Temperature 98.3 F 97.9 F 97.9 F Temperature Source Oral Oral Pulse Rate 86 102 H 100 Respiratory Rate 16 18 20 H Blood Pressure 85/56 L 108/83 H 109/54 L Blood Pressure Mean 65 91 72 Blood Pressure Source Monitor Blood Pressure Position Semi-Fowlers Blood Pressure Location Right Arm Pulse Ox 100 100 100 Oxygen Delivery Method Room Air 11/07/24 13:51 Temperature 98.3 F Temperature Source Oral Pulse Rate 103 H Respiratory Rate 15 Blood Pressure 119/98 H Blood Pressure Mean 105 Blood Pressure Source Monitor Blood Pressure Position Semi-Fowlers Blood Pressure Location Right Arm Pulse Ox 100 Oxygen Delivery Method Room Air Weight Weight: 98.1 kg Body Mass Index (BMI) 38.3 Physical Exam Const alert, oriented x3 and no apparent distress Constitutional Narrative: Elderly female, class II obesity, fatigued and somewhat chronically ill-appearing, otherwise laying back comfortably in bed, conversing normally, in no acute distress. General Appearance: cooperative and comfortable HEENT normocephalic, head/scalp atraumatic, hearing grossly normal bilaterally, nasal mucous membranes and turbinates normal and moist oral mucous membranes Eyes PERRL, EOMs intact bilaterally and conjunctivae normal Neck full ROM Chest inspection of chest normal Resp normal respiratory effort, normal air movement, no use of accessory muscles and clear to auscultation bilaterally Cardio regular rate, regular rhythm, no murmurs and peripheral pulses 2+ throughout GI normal to inspection, nondistended, normoactive bowel sounds, soft to palpation, non-tender and non-distended Back/Spine normal ROM Extremity normal to inspection, full ROM and no pedal edema Skin no rashes or lesions noted Neuro moves all extremities and no focal motor deficits Speech: speech normal Motor Exam: strength 5/5 throughout Psych mental status grossly normal Results Lab / Micro Data 11/07/24 11:40 11/07/24 11:40 Labs: Laboratory Results - last 24 hr 11/07/24 11:40: WBC 9.3, RBC 1.92 L, Hgb 5.1 L*, Hct 17.4 L, MCV 90.6, MCH 26.6 L, MCHC 29.3 L, RDW Std Deviation 79.7 H, RDW Coeff of Cornelio 25.4 H, Plt Count 208, MPV 10.6, Immature Gran % (Auto) 0.600, Neut % (Auto) 71.1 H, Lymph % (Auto) 18.8 L, [place] % (Auto) 7.6, Eos % (Auto) 1.7, Baso % (Auto) 0.2, Absolute Neuts (auto) 6.6, Absolute Lymphs (auto) 1.75, Nucleated RBC % 0.2, Diff Path Review May , Platelet Estimate A, Polychromasia 1+, Anisocytosis 2+, Tear Drop Cells 1+, Ovalocytes 1+, Bite Cells 1+, PT 16.6 H, INR 1.3, APTT 24.1, Sodium 136, Potassium 4.3, Chloride 109 H, Carbon Dioxide 16.0 L, Anion Gap 11, BUN 49 H, Creatinine 1.24 H, Estim Creat Clear Calc 46.18, Est GFR (MDRD) Af Amer 55 L, Est GFR (MDRD) Non-Af 45 L, BUN/Creatinine Ratio 39.5 H, Glucose 282 H, Calcium 8.9, Total Bilirubin 0.80, AST 9 L, ALT 20, Alkaline Phosphatase 95, Total Protein 4.9 L, Albumin 2.5 L, Globulin 2.4, Albumin/Globulin Ratio 1.0, Blood Type A POSITIVE, Antibody Screen NEGATIVE, Crossmatch See Detail Imaging Radiology Impression Abdomen/Pelvis CT 11/07/24 11:30 IMPRESSION: 1. Nonspecific fat stranding in the right lower quadrant about the appendix which is not dilated. Correlate with point tenderness in right lower quadrant. 2. Solitary left kidney with nonobstructive calculi 3. Sequela of portal hypertension with cirrhosis and splenomegaly 4. Other findings as above One or more dose reduction techniques were used (e.g., Automated exposure control, adjustment of the mA and/or kV according to patient size, use of iterative reconstruction technique). Reading Location: [facility] Assessment & Plan Assessment/Plan (1) Anemia requiring transfusions: (2) Cirrhosis: QUALIFIERS: Hepatic cirrhosis type: unspecified hepatic cirrhosis Ascites presence: unspecified Qualified Code(s): K74.60 - Unspecified cirrhosis of liver (3) Esophageal varices: PLAN: Plan Patient is a 69-year-old female who presented [facility] ED on 11/07/2024 with worsening fatigue and reported syncopal episode. 1. Acute on chronic symptomatic anemia with concern for upper GI bleed, history of decompensated cirrhosis with ascites and esophageal varices ? Admit under inpatient status to PCU. GI consulted. Hemoglobin 5.1 on admit, prior baseline 7-9. BUN 49 with only mildly elevated creatinine, consistent with upper GI bleed. Last EGD in 02/2024 showed grade 3 esophageal varices with no bleeding, portal hypertensive gastropathy. Colonoscopy at that time showed perianal hemorrhoids, hemorrhagic and inflamed gas in the rectum and rectal prolapse. Will give 2 units of blood today and recheck hemoglobin. Monitor daily CBC. Okay for clinical diet for now but n.p.o. at midnight for possible upper scope tomorrow. Will start IV PPI twice daily for now. 2. Acute on chronic debility ? PT/OT/case management consulted. 3. Syncopal episode ? Presume secondary to lightheadedness/dizziness in setting of symptomatic anemia as noted above. Continue cardiac monitoring while inpatient. 4. Mild creatinine elevation ? Creatinine 1.24 on admit, baseline appears to be around 0.8-0.9. Presume prerenal from suspected upper GI bleed. Given 1 L of IV fluids in the ED and receiving 2 units of blood as noted above. Monitor daily BMP and urine output. Chronic medical conditions: ? Class II obesity: BMI 35 on admit. Complicates hospital course, care and prognosis. ? Anxiety/depression: Continue home duloxetine and bupropion. ? Hypothyroidism: Continue home Synthroid. ? Type 2 diabetes mellitus: Will treat with sliding scale insulin with meals while inpatient, adjust as needed. ? History of right nephrectomy DVT prophylaxis: SCDs CODE STATUS: Full code, verified Expect disposition: TBD Total clinical time spent by myself addressing the patient's medical issues, reviewing all the data, and collaborating with patient's care team: 75 minutes. Charges/Coding Visit Charges Inpatient E&M: 86448 Init Hosp L3
[2024-11-07] MEDS: 0.9% Saline Lock 10 ML Syringe IV (15:47)
[2024-11-07] MEDS: Ondansetron 4 MG/2 ML Vial IV (15:47)
[2024-11-07] MEDS: 0.9% Normal Saline (100mL Bag) 100 ML 15 ML IV (15:54)
[2024-11-07] MEDS: Pantoprazole Sodium 40 MG in 0.9% Normal Saline (100mL MB+) 100 ML 330 MG IV ×2 (15:54→21:38)
[2024-11-07 18:40] LABS: Hemoglobin 6.6 g/dL (12.0-15.0)
--- NOTE | 2024-11-07 19:59 | PCM.HOSP.N ---
Hospitalist Note Repeat HH 6.6, will administer additional 1 u PRBC and repeat level in AM.
[2024-11-07] MEDS: Acetaminophen 325 MG Tablet 650 MG PO (21:37)
[2024-11-07] MEDS: Propranolol 10 MG Tablet PO (21:37)
[2024-11-07] MEDS: Insulin Lispro 100 UNIT/ML INSULN.PEN SC (21:41)
--- NOTE | 2024-11-07 21:46 | EX.PCM.CON.G ---
HPI Consult Data Date of Consult: 11/07/24 HPI Narrative Reason for Consultation: Anemia HPI Narrative: JANETTE MENESES, is a 69-year-old female past medical history of nonalcoholic cirrhosis presents with her sister because of generalized weakness and syncopal episode that happened 2 days ago. She was at home by herself. She has history of anemia as well and receives iron transfusion. Patient and sister states that she required blood transfusion last year and is presenting with the same symptoms of generalized weakness. However, they state that she is never passed out. Sister states that she looks the worst that she has ever been. Patient states that when she turns 69, her health started to decline. Sometimes she has had fluid on her lungs which needed to be removed but never ascites. When she fell 2 days ago, she sustained a broken tooth and bruising to her lip and complains of left flank side pain. Patient states that she became very lightheaded prior to her syncopal episode. She endorses a generalized weakness that continues. EGD 03.09.24- Grade III esophageal varices with no bleeding, portal hypertensive gastropathy- no specimens collected Colon- Perianal hemorrhoids, hemorrhagic and inflamed mucosa in the rectum, rectal prolapse, Diverticulosis CT abdomen pelvis showed sequelae of portal hypertension with cirrhosis and splenomegaly but no other concerning findings; notably did not show any ascites or any pleural effusions. She was transfused 2 units of prbcs. [facility] Medical History Ascites Cirrhosis Iron deficiency anemia Lung nodule Hemorrhoids History of diabetes mellitus History of cirrhosis Anemia Pleural effusion on left Exertional dyspnea Chest pain Wears contact lenses Wears glasses Post-menopausal Anxiety Alcohol use Thyroid disease History of renal disease Anemia Back pain History of diverticulitis Gastric reflux Former smoker Sleep apnea Chronic cough S/p nephrectomy Depression Migraines HTN (hypertension) Diabetes Home Medications ?Medication ?Instructions ?Recorded ?Last Taken ?Type duloxetine 60 mg capsule,delayed 60 mg PO DAILY 11/06/17 11/07/24 History release ergocalciferol (vitamin D2) 1,250 50,000 unit PO SA 11/06/17 11/07/24 History mcg (50,000 unit) capsule albuterol sulfate 90 mcg/actuation 1 - 2 puff inhalation PRN PRN 02/20/23 03/16/24 History aerosol inhaler ALLERGIES dulaglutide 0.75 mg/0.5 mL 0.75 mg subcut SA 10/10/23 10/31/24 History subcutaneous pen injector (Trulicity) cyanocobalamin (vitamin B-12) 1,000 mcg PO DAILY 02/13/24 11/07/24 History 1,000 mcg capsule omeprazole 20 mg capsule,delayed 20 mg PO DAILY Heartburn 02/17/24 11/07/24 History release levothyroxine 125 mcg tablet 125 mcg PO DAILY disorder of 02/27/24 11/07/24 History (Synthroid) thyroid gland fexofenadine 180 mg tablet 180 mg PO DAILY 03/03/24 11/07/24 History (Aaliyah Allergy) propranolol 10 mg tablet 10 mg PO TID 30 days #90 tabs 04/02/24 11/07/24 Rx spironolactone 50 mg tablet 50 mg PO BID #30 tabs 07/07/24 11/07/24 Rx oxycodone 5 mg tablet 5 mg PO Q6H PRN pain 3 days #10 08/26/24 Unknown Rx tabs bupropion HCl 100 mg tablet 100 mg PO QPM 11/07/24 11/06/24 History bupropion HCl 100 mg tablet 200 mg PO DAILY 11/07/24 11/07/24 History furosemide 40 mg tablet 40 mg PO QDAY 11/07/24 11/07/24 History Allergy/AdvReac Type Severity Reaction Status Date / Time adhesive tape Allergy Rash Verified 08/31/24 09:02 Family History Father Colon cancer Brother Cancer bladder Surgical History History of thoracentesis Hx of colonoscopy History of esophagogastroduodenoscopy (EGD) S/P shoulder surgery S/P hysterectomy History of lobectomy of thyroid Social History Smoking Status: Former smoker alcohol intake: current alcohol intake frequency: holidays/special occasions only ROS Constitutional Constitutional: Denies fatigue, fever(s), poor appetite, weight gain or weight loss Gastrointestinal Gastrointestinal: Denies belching, bloating, change in bowel habits, change in stool character, chewing difficulty, coffee ground emesis, constipation, cramping, diarrhea, dyspepsia, dysphagia, early satiety, excessive flatus, fecal incontinence, heartburn, hematemesis, hematochezia, hemorrhoids, loose stools, melena, nausea, odynophagia, rectal bleeding, tenesmus, vomiting or weight changes Physical Exam Const alert, oriented x3, no apparent distress and healthy appearing General Appearance: cooperative GI normal to inspection, nondistended, normoactive bowel sounds, soft to palpation, non-tender and non-distended Percussion: normal to percussion Rectal Exam: deferred Lab / Micro Data 11/07/24 18:30 11/07/24 11:40 Labs: Laboratory Results - last 24 hr 11/07/24 11:40: WBC 9.3, RBC 1.92 L, Hgb 5.1 L*, Hct 17.4 L, MCV 90.6, MCH 26.6 L, MCHC 29.3 L, RDW Std Deviation 79.7 H, RDW Coeff of Cornelio 25.4 H, Plt Count 208, MPV 10.6, Immature Gran % (Auto) 0.600, Neut % (Auto) 71.1 H, Lymph % (Auto) 18.8 L, [place] % (Auto) 7.6, Eos % (Auto) 1.7, Baso % (Auto) 0.2, Absolute Neuts (auto) 6.6, Absolute Lymphs (auto) 1.75, Nucleated RBC % 0.2, Diff Path Review January, Platelet Estimate A, Polychromasia 1+, Anisocytosis 2+, Tear Drop Cells 1+, Ovalocytes 1+, Bite Cells 1+, PT 16.6 H, INR 1.3, APTT 24.1, Sodium 136, Potassium 4.3, Chloride 109 H, Carbon Dioxide 16.0 L, Anion Gap 11, BUN 49 H, Creatinine 1.24 H, Estim Creat Clear Calc 46.18, Est GFR (MDRD) Af Amer 55 L, Est GFR (MDRD) Non-Af 45 L, BUN/Creatinine Ratio 39.5 H, Glucose 282 H, Calcium 8.9, Total Bilirubin 0.80, AST 9 L, ALT 20, Alkaline Phosphatase 95, Total Protein 4.9 L, Albumin 2.5 L, Globulin 2.4, Albumin/Globulin Ratio 1.0, Blood Type A POSITIVE, Antibody Screen NEGATIVE, Crossmatch See Detail 11/07/24 18:30: Hgb 6.6 L Imaging Radiology Impression Abdomen/Pelvis CT 11/07/24 11:30 IMPRESSION: 1. Nonspecific fat stranding in the right lower quadrant about the appendix which is not dilated. Correlate with point tenderness in right lower quadrant. 2. Solitary left kidney with nonobstructive calculi 3. Sequela of portal hypertension with cirrhosis and splenomegaly 4. Other findings as above One or more dose reduction techniques were used (e.g., Automated exposure control, adjustment of the mA and/or kV according to patient size, use of iterative reconstruction technique). Reading Location: [facility] Assessment & Plan Assessment/Plan (1) Pleural effusion on left: PLAN: Plan 69-year-old female with history of MAFLD associated cirrhosis, type 2 diabetes, presents to the ED with concerns regarding worsening shortness of breath and fatigue. Metabolic associated fatty liver disease with cirrhosis: -Child Reich score A, MELD-NA: 10 -Compensated cirrhosis with complications of portal hypertension -She will need egd for variceal screening. NPO after midnight on 11/08/2024 -AFP normal Acute on chronic anemia Severe anemia -Combination of iron deficiency anemia with pancytopenia due to splenomegaly -Transfuse 1 unit of blood PRBC to maintain Hgb greater than 7 -INR is 1.3, no underlying coagulopathy Charges/Coding Visit Charges Inpatient E&M: 37782 Init Hosp L3
[2024-11-07] MEDS: buPROPion 100 MG Tablet PO (21:54)
--- NOTE | 2024-11-07 22:15 | NURSING ---
This RN assuming care for this patient.
[2024-11-07 22:53] LABS: Bedside Glucose 233 mg/dL (74-106)
[2024-11-08 00:09] VITALS: BP 104/51; PULSE 77; RESP 16; TEMP 36.9; O2SAT 100
[2024-11-08 00:58] VITALS: BMI 35.4
[2024-11-08 01:09] VITALS: BP 96/55; PULSE 66; PULSE 74; RESP 14; TEMP 36.9; O2SAT 95
[2024-11-08 05:58] LABS: Hematocrit 24.4 % (37-47); Hemoglobin 7.6 g/dL (12.0-15.0); Mean Corp Hgb Conc 31.1 g/dL (32-36); Mean Corpuscular Hgb 27.3 pg (27.0-32.0); Mean Corpuscular Volume 87.8 fL (81-99); Mean Platelet Vol. 10.6 fl (6.2-12.0); Platelet Count 113 K/mm3 (150-450); RBC Distribution Width CV 19.9 % (11.6-14.6); RBC Distribution Width SD 60.3 fl (35.1-43.9); Red Blood Count 2.78 M/mm3 (4.2-5.4); White Blood Count 6.2 K/mm3 (4.4-11.0)
[2024-11-08 06:17] LABS: Phosphorus 2.4 mg/dL (2.5-4.9)
[2024-11-08 06:23] LABS: International Normalized Ratio 1.2; Prothrombin Time (Protime)PT. 15.4 SECONDS (11.7-14.9)
[2024-11-08 06:24] LABS: Partial Thromboplast Time 25.2 Seconds (24.1-36.2)
[2024-11-08 06:27] VITALS: BP 94/61; PULSE 77; RESP 16; TEMP 36.7; O2SAT 97
[2024-11-08 06:30] LABS: ALB/GLOB Ratio 1.1 RATIO (0.9-2.4); AST(SGOT) 14 U/L (15-37); Alanine Aminotransfer ALT/SGPT 19 U/L (13-56); Albumin, Serum 2.5 g/dL (3.2-5.0); Alkaline Phosphatase 91 U/L (45-117); Anion Gap 6 (5-15); BUN 35 mg/dL (7-18); BUN/Creat Ratio 32.1 RATIO (10-20); Calcium,Total 8.5 mg/dL (8.5-10.1); Chloride 116 mmol/L (98-107); Creatinine, Serum 1.09 mg/dL (0.55-1.02); EST Glomerular Filtration Rate 53 mL/min (>60); Est Glom Filt Rate - Afr Amer 64 mL/min (>60); Estimated Creatinine Clearance 53.24 ml/min; Globulin 2.2 g/dL (2.2-4.2); Glucose 173 mg/dL (74-106); Potassium 4.3 mmol/L (3.5-5.1); Protein, Total 4.7 g/dL (6.4-8.2); Sodium Level 140 mmol/L (136-145)
[2024-11-08 07:01] LABS: Bedside Glucose 161 mg/dL (74-106)
[2024-11-08 09:49] VITALS: BP 109/53; PULSE 80; RESP 14; TEMP 36.8; O2SAT 100
[2024-11-08] MEDS: Spironolactone 50 MG Tablet PO ×2 (09:50→21:53)
[2024-11-08] MEDS: DULoxetine Hcl 60 MG Capsule PO (09:51)
[2024-11-08] MEDS: Loratadine 10 MG Tablet PO (09:51)
[2024-11-08] MEDS: Cyanocobalamin 500 MCG Tablet 1000 MCG PO (09:52)
[2024-11-08] MEDS: Furosemide 40 MG Tablet PO (09:56)
[2024-11-08] MEDS: 0.9% Saline Lock 10 ML Syringe IV ×2 (09:58→21:47)
[2024-11-08] MEDS: Pantoprazole Sodium 40 MG in 0.9% Normal Saline (100mL MB+) 100 ML 330 MG IV ×2 (10:02→21:46)
[2024-11-08] MEDS: buPROPion 100 MG Tablet 200 MG PO (10:02)
--- NOTE | 2024-11-08 10:41 | PCM.PN.HOSP ---
Reason for Visit Reason for Visit: Diagnoses Anemia, unspecified (11/07/24) Esophageal varices without bleeding (11/07/24) Pleural effusion, not elsewhere classified (11/07/24) Unspecified cirrhosis of liver (11/07/24) Subjective Subjective Saw patient at bedside this morning. Patient was mildly fatigued. But otherwise sitting up fairly comfortably in bed, conversing normally, in no acute distress. She did report mild to moderate ongoing left sided abdominal/flank pain, similar to yesterday. Denied any dark or bloody stools since admission. Does feel that she has more energy since the blood transfusion yesterday. No other new concerns this morning. Objective Data Objective Data Vital Signs: Vital Signs Temp Pulse Resp BP Pulse Ox O2 Del Method 98.3 F 80 14 109/53 L 100 Room Air 11/08/24 09:49 11/08/24 09:49 11/08/24 09:49 11/08/24 09:49 11/08/24 09:49 11/08/24 09:49 Oxygen Delivery Method Room Air Weight: 93.5 kg Body Mass Index (BMI) 35.4 Intake & Output: Intake and Output for Last 24 Hours 11/06/24 11/07/24 11/08/24 23:59 23:59 23:59 Intake Total 2705.75 / 2705.75 500 / 500 Output Total 750 / 750 200 / 200 Balance 1955.75 / 1955.75 300 / 300 Lab / Micro Data 11/08/24 05:27 11/08/24 05:27 Labs: Laboratory Results - last 24 hr 11/07/24 11:40: WBC 9.3, RBC 1.92 L, Hgb 5.1 L*, Hct 17.4 L, MCV 90.6, MCH 26.6 L, MCHC 29.3 L, RDW Std Deviation 79.7 H, RDW Coeff of Cornelio 25.4 H, Plt Count 208, MPV 10.6, Immature Gran % (Auto) 0.600, Neut % (Auto) 71.1 H, Lymph % (Auto) 18.8 L, Evans % (Auto) 7.6, Eos % (Auto) 1.7, Baso % (Auto) 0.2, Absolute Neuts (auto) 6.6, Absolute Lymphs (auto) 1.75, Nucleated RBC % 0.2, Diff Path Review January, Platelet Estimate A, Polychromasia 1+, Anisocytosis 2+, Tear Drop Cells 1+, Ovalocytes 1+, Bite Cells 1+, PT 16.6 H, INR 1.3, APTT 24.1, Sodium 136, Potassium 4.3, Chloride 109 H, Carbon Dioxide 16.0 L, Anion Gap 11, BUN 49 H, Creatinine 1.24 H, Estim Creat Clear Calc 46.18, Est GFR (MDRD) Af Amer 55 L, Est GFR (MDRD) Non-Af 45 L, BUN/Creatinine Ratio 39.5 H, Glucose 282 H, Calcium 8.9, Total Bilirubin 0.80, AST 9 L, ALT 20, Alkaline Phosphatase 95, Total Protein 4.9 L, Albumin 2.5 L, Globulin 2.4, Albumin/Globulin Ratio 1.0, Blood Type A POSITIVE, Antibody Screen NEGATIVE, Crossmatch See Detail 11/07/24 11:40: Crossmatch See Detail 11/07/24 18:30: Hgb 6.6 L, Hemoglobin A1c Cancelled 11/07/24 21:40: POC Glucose 233 H 11/08/24 05:27: WBC 6.2, RBC 2.78 L, Hgb 7.6 L, Hct 24.4 L, MCV 87.8, MCH 27.3, MCHC 31.1 L D, RDW Std Deviation 60.3 H, RDW Coeff of Cornelio 19.9 H, Plt Count 113 L, MPV 10.6, PT 15.4 H, INR 1.2, APTT 25.2, Sodium 140, Potassium 4.3, Chloride 116 H, Carbon Dioxide 17.0 L, Anion Gap 6, BUN 35 H, Creatinine 1.09 H, Estim Creat Clear Calc 53.24, Est GFR (MDRD) Af Amer 64, Est GFR (MDRD) Non-Af 53 L, BUN/Creatinine Ratio 32.1 H, Glucose 173 H, Calcium 8.5, Phosphorus 2.4 L, Magnesium 2.0, Total Bilirubin 1.80 H, AST 14 L, ALT 19, Alkaline Phosphatase 91, Total Protein 4.7 L, Albumin 2.5 L, Globulin 2.2, Albumin/Globulin Ratio 1.1, TSH 2.420 11/08/24 06:23: POC Glucose 161 H Radiography Diagnostic Testing: Radiology Impression Abdomen/Pelvis CT 11/07/24 11:30 IMPRESSION: 1. Nonspecific fat stranding in the right lower quadrant about the appendix which is not dilated. Correlate with point tenderness in right lower quadrant. 2. Solitary left kidney with nonobstructive calculi 3. Sequela of portal hypertension with cirrhosis and splenomegaly 4. Other findings as above One or more dose reduction techniques were used (e.g., Automated exposure control, adjustment of the mA and/or kV according to patient size, use of iterative reconstruction technique). Reading [facility] Physical Exam Const alert, oriented x3 and no apparent distress Constitutional Narrative: Elderly female, class II obesity, mildly fatigued but energy improved from admission, somewhat chronically ill-appearing, otherwise laying back comfortably in bed, conversing normally, in no acute distress. Improving. General Appearance: cooperative and comfortable HEENT normocephalic, head/scalp atraumatic, hearing grossly normal bilaterally, nasal mucous membranes and turbinates normal and moist oral mucous membranes Eyes PERRL, EOMs intact bilaterally and conjunctivae normal Neck full ROM Chest inspection of chest normal Resp normal respiratory effort, normal air movement, no use of accessory muscles and clear to auscultation bilaterally Cardio regular rate, regular rhythm, no murmurs and peripheral pulses 2+ throughout GI normal to inspection, nondistended, normoactive bowel sounds, soft to palpation, non-tender and non-distended Back/Spine normal ROM Extremity normal to inspection, full ROM and no pedal edema Skin no rashes or lesions noted Neuro moves all extremities and no focal motor deficits Speech: speech normal Motor Exam: strength 5/5 throughout Psych mental status grossly normal Assessment & Plan Assessment/Plan (1) Anemia requiring transfusions: (2) Cirrhosis: QUALIFIERS: Hepatic cirrhosis type: unspecified hepatic cirrhosis Ascites presence: unspecified Qualified Code(s): K74.60 - Unspecified cirrhosis of liver (3) Esophageal varices: PLAN: Plan Patient is a 69-year-old female who presented [facility] ED on 11/07/2024 with worsening fatigue and reported syncopal episode. 1. Acute on chronic symptomatic anemia with concern for upper GI bleed, history of decompensated cirrhosis with ascites and esophageal varices ? GI following. Hemoglobin 5.1 on admit, prior baseline 7-9. BUN 49 with only mildly elevated creatinine, consistent with upper GI bleed. Last EGD in 02/2024 showed grade 3 esophageal varices with no bleeding, portal hypertensive gastropathy. Colonoscopy at that time showed perianal hemorrhoids, hemorrhagic and inflamed gas in the rectum and rectal prolapse. Gave 2 units of blood initially on 11/07 with repeat hemoglobin 6.6, then given another unit of blood with hemoglobin 7.6 on morning of 11/08. Per GI, will keep n.p.o. at midnight with plan for upper scope on 11/09. Continue IV PPI twice daily for now. Monitor CBC daily and transfuse for hemoglobin less than 7. 2. Acute on chronic debility ? PT/OT/case management following, appreciate recommendations. 3. Syncopal episode ? Presume secondary to lightheadedness/dizziness in setting of symptomatic anemia as noted above. Continue cardiac monitoring while inpatient. 4. Mild creatinine elevation, improving ? Creatinine 1.24 on admit, baseline appears to be around 0.8-0.9. Presume prerenal from suspected upper GI bleed. Given 1 L of IV fluids and 3 units of blood on day of admit as noted above, repeat creatinine 1.09 on 11/08. Continue to monitor daily BMP and urine output. 5. Left-sided abdominal/flank pain ? CT abdomen pelvis on admit with no concerning findings. Patient notably fell onto that area with her syncopal episode prior to admission; suspect musculoskeletal injury due to this. Continue Tylenol and low-dose oxycodone for pain control for this. Chronic medical conditions: ? Class II obesity: BMI 35 on admit. Complicates hospital course, care and prognosis. ? Anxiety/depression: Continue home duloxetine and bupropion. ? Hypothyroidism: Continue home Synthroid. ? Type 2 diabetes mellitus: Treating with sliding scale insulin with meals while inpatient, adjust as needed. ? History of right nephrectomy DVT prophylaxis: SCDs CODE STATUS: Full code, verified Expect disposition: TBD Total clinical time spent by myself addressing the patient's medical issues, reviewing all the data, and collaborating with patient's care team: 35 minutes. Charges/Coding Visit Charges Inpatient E&M: 36879 Subs Hosp L2
[2024-11-08] MEDS: oxyCODONE 5 MG Tablet PO (12:05)
[2024-11-08] MEDS: Insulin Lispro 100 UNIT/ML INSULN.PEN SC ×3 (12:09→21:49)
[2024-11-08 12:28] LABS: Bedside Glucose 289 mg/dL (74-106)
[2024-11-08] MEDS: Propranolol 10 MG Tablet PO ×2 (14:46→21:51)
[2024-11-08 15:30] VITALS: BP 94/51; PULSE 83; RESP 16; TEMP 36.4; O2SAT 99
[2024-11-08 17:32] LABS: Bedside Glucose 220 mg/dL (74-106)
[2024-11-08 20:05] VITALS: BP 95/53; PULSE 80; RESP 16; TEMP 36.9; O2SAT 100
[2024-11-08] MEDS: buPROPion 100 MG Tablet PO (20:12)
[2024-11-08 22:09] LABS: Bedside Glucose 239 mg/dL (74-106)
[2024-11-09] VITALS (15 sets, daily range): BP systolic 74–104; BP diastolic 43–62; PULSE 66–82; RESP 14–18; TEMP 36.1–36.9; O2SAT 92–98; BMI 35.2
[2024-11-09] MEDS: oxyCODONE 5 MG Tablet PO (02:32)
[2024-11-09 06:10] LABS: Bedside Glucose 135 mg/dL (74-106)
[2024-11-09 07:53] LABS: Hematocrit 24.4 % (37-47); Hemoglobin 7.8 g/dL (12.0-15.0); Mean Corpuscular Hgb 28.2 pg (27.0-32.0); Mean Corpuscular Volume 88.1 fL (81-99); POSITIVE COUNT YES; POSITIVE MORPHOLOGY YES; Platelet Count 88 K/mm3 (150-450); RBC Distribution Width CV 20.2 % (11.6-14.6); RBC Distribution Width SD 61.6 fl (35.1-43.9); Red Blood Count 2.77 M/mm3 (4.2-5.4); White Blood Count 4.9 K/mm3 (4.4-11.0)
[2024-11-09 08:00] LABS: Scan Indicated on CBC? Y/N YES- FLAGS NOTED
[2024-11-09 08:13] LABS: Anion Gap 9 (5-15); BUN 27 mg/dL (7-18); BUN/Creat Ratio 24.1 RATIO (10-20); Calcium,Total 8.5 mg/dL (8.5-10.1); Chloride 108 mmol/L (98-107); Creatinine, Serum 1.12 mg/dL (0.55-1.02); EST Glomerular Filtration Rate 51 mL/min (>60); Est Glom Filt Rate - Afr Amer 62 mL/min (>60); Estimated Creatinine Clearance 51.72 ml/min; Glucose 145 mg/dL (74-106); Sodium Level 137 mmol/L (136-145)
[2024-11-09] MEDS: Pantoprazole Sodium 40 MG in 0.9% Normal Saline (100mL MB+) 100 ML 330 MG IV (08:49)
--- NOTE | 2024-11-09 11:30 | PCM.PRE.AN2 ---
ASA Classification* ASA Classification ASA Classification: 3 Assessment & Plan Anesthesia* Anesthesia Assessment Anesthesia Assessment: Discussed sedation and/or anesthesia options, risks, benefits, and alternatives with patient/parents/legal guardian/POA. Questions invited. The patient/parents/legal guardian/POA seems to understand and agrees to proceed with anesthesia plan. Reviewed the physical assessment, medical history, allergy history and patient home medications list prior to surgery/procedure/anesthetic and documented any changes. Performed airway and anesthesia risk assessments. Anesthesia Type Anesthesia Type: MAC History Source History Obtained from:: Patient and Chart Anesthesia Focused Assessment* Temperature: 97.7 F Pulse Rate: 72 Blood Pressure: 92/51 Respiratory Rate: 18 Pulse Ox: 94 Oxygen Delivery Method: Room Air Airway Assessment Mouth opens: >3 cm Mallampati Score: I Teeth Condition: Intact Neck Range of motion (ROM): Full ROM Focused Labs Anesthesia Preop lab: CBC WBC 4.9 K/mm3 (4.4-11.0) 11/09/24 07:09 11/09/24 RBC 2.77 M/mm3 (4.2-5.4) L 11/09/24 07:09 11/09/24 Hgb 7.8 g/dL (12.0-15.0) L 11/09/24 07:09 11/09/24 Hct 24.4 % (37-47) L 11/09/24 07:09 11/09/24 Plt Count 88 K/mm3 (150-450) L 11/09/24 07:09 11/09/24 CHEMISTRY Potassium 4.0 mmol/L (3.5-5.1) 11/09/24 07:09 11/09/24 Sodium 137 mmol/L (136-145) 11/09/24 07:09 11/09/24 Magnesium 2.0 mg/dL (1.6-2.6) 11/08/24 05:27 11/08/24 Phosphorus 2.4 mg/dL (2.5-4.9) L 11/08/24 05:27 11/08/24 BUN 27 mg/dL (7-18) H 11/09/24 07:09 11/09/24 Creatinine 1.12 mg/dL (0.55-1.02) H 11/09/24 07:09 11/09/24 Glucose 145 mg/dL (74-106) H 11/09/24 07:09 11/09/24 POC Glucose 135 mg/dL (74-106) H 11/09/24 05:42 11/09/24 TSH 2.420 uIU/mL (0.358-3.740) 11/08/24 05:27 11/08/24 COAG PT 15.4 SECONDS (11.7-14.9) H 11/08/24 05:27 11/08/24 Pre-Assessment Diagnosis/Proposed Procedure Planned Operative Procedure(s): EGD with possible biopsies Anesthesia History Anesthesia History - mothers helper: Anesthesia History - mothers helper Hx Hospitalization Yes: 02/28/2024 [facility] 08/27/24 08:44 , [facility] Any Problems With Anesthesia No 11/09/24 05:49 Cholinesterase deficiency No 11/09/24 05:49 You/Your Family Experience No 11/09/24 05:49 fever (hyperthermia) with Relationship Recent Exposure to Contagious No 11/09/24 05:49 Disease Does patient have nerve No 11/09/24 05:49 stimulator Patient instructed to have No 11/09/24 05:49 device shut off --Does patient have Pacemaker No 11/09/24 05:19 or ICD? When Was Last Pacemaker Check QUESTION #4 FULL TEXT: You/Your Family Experience fever (hyperthermia) with Anesthesia Last Oral Intake Last Oral intake: Last Oral Intake NPO since 00:00 11/09/24 05:19 Meds taken in AM with sips of No 11/09/24 05:19 water? Meds patient instructed to take am of surgery PONV PONV - mothers helper: PONV - mothers helper Female HX of Motion Sickness HX of N/V After Surgery Non-Smoker Duration of Surgery greater than 60 minutes Number of Risk Factors PONV Score Any additional information?: Yes Female: Yes HX of Motion Sickness: No HX of N/V After Surgery: Yes Non-Smoker: Yes Duration of Surgery greater than 60 minutes: No Number of Risk Factors: 3 PONV Score: Moderate Risk Height & Weight Height & Weight: Anesthesia: Height & Weight Height 5 ft 4 in 11/09/24 05:19 Weight: 93.2 kg 11/09/24 05:19 Body Mass Index (BMI) 35.2 11/09/24 05:19 Respiratory Assessment Respiratory Assessment - mothers helper: Respiratory Tract Infection Hx - mothers helper Hx Respiratory Tract Infection No 11/09/24 05:49 STOP Sleep Apnea STOP Sleep Apnea - mothers helper: STOP Sleep Apnea - mothers helper Hx Hypertension Yes 11/08/24 15:09 Hx Sleep Apnea Yes 11/07/24 15:01 CPAP Yes: per pt used years ago, 11/07/24 15:01 no longer has BIPAP No 11/07/24 15:01 Do you snore loudly (louder than talking or can be heard Do you often feel tired/ fatigued/ sleepy during daytime? Has anyone observed you stop breathing during sleep? STOP Results Positive 11/07/24 15:01 QUESTION #5 FULL TEXT : Do you snore loudly (louder than talking or can be heard through closed doors)? 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 Specify any problems Hx of Preganancy in last 3 No 11/07/24 15:01 Months Nurse Filling Out Transfusion SSHAW 11/07/24 15:01 & Questions: Date: 11/07/24 11/07/24 15:01 Time: 15:04 11/07/24 15:01 Patient unable to answer at this time (ie. confused, unrespo /Reproduction History /Reproductive History - mothers helper: /Reproductive Hx- mothers helper Hx Now No 11/09/24 05:49 Gestational Age (in weeks): EDC: Hx Hx Para Hx Section SAB No 11/09/24 05:49 Active Medications Active Medications: Current Medications Generic Name Dose Route Start Last Admin Trade Name Freq PRN Reason Stop Dose Admin Acetaminophen 650 mg 11/07/24 15:00 11/07/24 21:37 Acetaminophen 325 Mg Tablet PO 650 mg Q6H PRN PRN Administration Pain 1-10 Or Fever>100.7 Albuterol Sulfate 2.5 mg 11/07/24 15:14 Albuterol 2.5 Mg/3 Ml Vial.Neb. INHALATION Q4H PRN PRN ALLERGIES Bupropion HCl 100 mg 11/07/24 21:00 11/08/24 20:12 Bupropion 100 Mg Tablet PO 100 mg QPM AMANDEEP Administration Bupropion HCl 200 mg 11/08/24 10:00 11/08/24 10:02 Bupropion 100 Mg Tablet PO 200 mg DAILY AMANDEEP Administration Cyanocobalamin 1,000 mcg 11/08/24 10:00 11/08/24 09:52 Cyanocobalamin 500 Mcg Tablet PO 1,000 mcg DAILY AMANDEEP Administration Duloxetine HCl 60 mg 11/08/24 10:00 11/08/24 09:51 Duloxetine Hcl 60 Mg Capsule PO 60 mg DAILY AMANDEEP Administration Furosemide 40 mg 11/08/24 10:00 11/08/24 09:56 Furosemide 40 Mg Tablet PO 40 mg DAILY AMANDEEP Administration Protocol Glucagon 1 mg 11/07/24 16:26 Glucagon 1 Mg/Ml Syringe IM X1 PRN Hypoglycemia Protocol Pantoprazole Sodium 40 mg/ 110 mls @ 330 mls/hr 11/07/24 22:00 11/09/24 09:49 Sodium Chloride IV Infused Q12 AMANDEEP Infusion Sodium Chloride 100 mls @ 15 mls/hr 11/07/24 15:11 11/09/24 09:49 IV Infused .Q6H40M PRN Infusion Saline Flush Sodium Chloride 100 mls @ 15 mls/hr 11/07/24 15:11 IV .Q6H40M PRN Additional IVPB Infusion Dextrose 250 mls @ 0 mls/hr 11/07/24 16:26 Dextrose 10%-Water IV .Q0M PRN HYPOGLYCEMIA Protocol As Directed Insulin Human Lispro 0 unit 11/07/24 22:00 11/09/24 05:42 Insulin Lispro 100 Unit/Ml Insuln.Pen SC Not Given ACHS AMANDEEP Protocol Levothyroxine Sodium 125 mcg 11/08/24 06:00 11/09/24 05:40 Levothyroxine 125 Mcg Tablet PO Not Given DAILY@0600 [facility] Loratadine 10 mg 11/08/24 10:00 11/08/24 09:51 Loratadine 10 Mg Tablet PO 10 mg DAILY AMANDEEP Administration Melatonin 3 mg 11/07/24 15:00 Melatonin 3 Mg Tablet PO QHS PRN PRN INSOMNIA Ondansetron HCl 4 mg 11/07/24 15:00 11/07/24 15:47 Ondansetron 4 Mg/2 Ml Vial IV 4 mg Q8H PRN PRN Administration NAUSEA/VOMITING Oxycodone HCl 5 mg 11/08/24 11:17 11/09/24 02:32 Oxycodone 5 Mg Tablet PO 5 mg Q6H PRN PRN Administration Pain Score 6-10 Propranolol HCl 10 mg 11/07/24 22:00 11/09/24 05:40 Propranolol 10 Mg Tablet PO Not Given TID [facility] Protocol Sodium Chloride 10 - 40 ml 11/07/24 15:11 11/08/24 21:47 0.9% Saline Lock 10 Ml Syringe IV 10 ml UD PRN Administration SALINE FLUSH Spironolactone 50 mg 11/08/24 10:00 11/08/24 21:53 Spironolactone 50 Mg Tablet PO 50 mg BID [facility] Administration Protocol [facility] Medical History Ascites Cirrhosis Iron deficiency anemia Lung nodule Hemorrhoids History of diabetes mellitus History of cirrhosis Anemia Pleural effusion on left Exertional dyspnea Chest pain Wears contact lenses Wears glasses Post-menopausal Anxiety Alcohol use Thyroid disease History of renal disease Anemia Back pain History of diverticulitis Gastric reflux Former smoker Sleep apnea Chronic cough S/p nephrectomy Depression Migraines HTN (hypertension) Diabetes Home Medications ?Medication ?Instructions ?Recorded ?Last Taken ?Type duloxetine 60 mg capsule,delayed 60 mg PO DAILY 11/06/17 11/07/24 History release ergocalciferol (vitamin D2) 1,250 50,000 unit PO SA 11/06/17 11/07/24 History mcg (50,000 unit) capsule albuterol sulfate 90 mcg/actuation 1 - 2 puff inhalation PRN PRN 02/20/23 03/16/24 History aerosol inhaler ALLERGIES dulaglutide 0.75 mg/0.5 mL 0.75 mg subcut SA 10/10/23 10/31/24 History subcutaneous pen injector (Trulicity) cyanocobalamin (vitamin B-12) 1,000 mcg PO DAILY 02/13/24 11/07/24 History 1,000 mcg capsule omeprazole 20 mg capsule,delayed 20 mg PO DAILY Heartburn 02/17/24 11/07/24 History release levothyroxine 125 mcg tablet 125 mcg PO DAILY disorder of 02/27/24 11/07/24 History (Synthroid) thyroid gland fexofenadine 180 mg tablet 180 mg PO DAILY 03/03/24 11/07/24 History (Aaliyah Allergy) propranolol 10 mg tablet 10 mg PO TID 30 days #90 tabs 04/02/24 11/07/24 Rx spironolactone 50 mg tablet 50 mg PO BID #30 tabs 07/07/24 11/07/24 Rx bupropion HCl 100 mg tablet 100 mg PO QPM 11/07/24 11/06/24 History bupropion HCl 100 mg tablet 200 mg PO DAILY 11/07/24 11/07/24 History furosemide 40 mg tablet 40 mg PO QDAY 11/07/24 11/07/24 History Allergy/AdvReac Type Severity Reaction Status Date / Time adhesive tape Allergy Rash Verified 08/31/24 09:02 Family History Father Colon cancer Brother Cancer bladder Surgical History History of thoracentesis Hx of colonoscopy History of esophagogastroduodenoscopy (EGD) S/P shoulder surgery S/P hysterectomy History of lobectomy of thyroid Social History Smoking Status: Former smoker alcohol intake: current alcohol intake frequency: holidays/special occasions only Review of Systems (Anesthesia) ROS Narrative System reviewed and no additional complaints, except as documented. Physical Exam Const alert and oriented x3 HEENT dentition normal Neck full ROM Resp normal respiratory effort, normal air movement and clear to auscultation bilaterally Neuro oriented x3 and moves all extremities
--- NOTE | 2024-11-09 11:56 | PCM.PN.BLA ---
Progress Note Patient did receive 2 units of packed red blood cells. She has been n.p.o. since midnight. Physical Exam Const alert, oriented x3, no apparent distress and healthy appearing General Appearance: cooperative GI normal to inspection, nondistended, normoactive bowel sounds, soft to palpation, non-tender and non-distended Percussion: normal to percussion Rectal Exam: deferred Assessment & Plan Assessment/Plan (1) Pleural effusion on left: PLAN: Plan 69-year-old female with history of MAFLD associated cirrhosis, type 2 diabetes, presents to the ED with concerns regarding worsening shortness of breath and fatigue. Metabolic associated fatty liver disease with cirrhosis: -Child Reich score A, MELD-NA: 10 -Compensated cirrhosis with complications of portal hypertension -She will need egd for variceal screening. NPO after midnight on 11/08/2024 -AFP normal Acute on chronic anemia Severe anemia -Combination of iron deficiency anemia with pancytopenia due to splenomegaly -Transfuse 1 unit of blood PRBC to maintain Hgb greater than 7 -INR is 1.3, no underlying coagulopathy 11/09/2024-patient will undergo upper endoscopy today to look for etiology of acute blood loss anemia. Visit Charges Inpatient E&M: 50250 Subs Hosp L3
--- NOTE | 2024-11-09 12:20 | OP.EGD_ITS ---
Patient Name: Barbara Ledesma Procedure Date: 11/09/2024 12:01 PM Date of : 1955 Age: 69 Procedure: Upper GI endoscopy Indications: Esophageal varices with bleeding Providers: Ronald Nash DO Medicines: Monitored Anesthesia Care Patient Profile: This is a 69 year old female. Refer to note in patient chart for documentation of history and physical. Patient has symptoms. Complications: No immediate complications. Procedure: Pre-Anesthesia Assessment: - Prior to the procedure, a History and Physical was performed, and patient medications and allergies were reviewed. The patient is competent. The risks and benefits of the procedure and the sedation options and risks were discussed with the patient. All questions were answered and informed consent was obtained. Patient identification and proposed procedure were verified in the pre-procedure area. Mental Status Examination: alert and oriented. Airway Examination: normal oropharyngeal airway and neck mobility. Respiratory Examination: clear to auscultation. CV Examination: normal. Prophylactic Antibiotics: The patient does not require prophylactic antibiotics. Prior Anticoagulants: The patient has taken no anticoagulant or antiplatelet agents except for NSAID medication. ASA Grade Assessment: II - A patient with mild systemic disease. After reviewing the risks and benefits, the patient was deemed in satisfactory condition to undergo the procedure. The anesthesia plan was to use general anesthesia. Immediately prior to administration of medications, the patient was re-assessed for adequacy to receive sedatives. The heart rate, respiratory rate, oxygen saturations, blood pressure, adequacy of pulmonary ventilation, and response to care were monitored throughout the procedure. The physical status of the patient was re-assessed after the procedure. After obtaining informed consent, the endoscope was passed under direct vision. Throughout the procedure, the patient's blood pressure, pulse, and oxygen saturations were monitored continuously. The Endoscope was introduced through the mouth, and advanced to the second part of duodenum. The upper GI endoscopy was accomplished without difficulty. The patient tolerated the procedure well. Scope In: 12:11:19 PM Scope Out: 12:14:49 PM Total Procedure Duration Time 0 hours 3 minutes 30 seconds Findings: Grade II varices were found in the mid esophagus, in the distal esophagus, at the gastroesophageal junction and in the cardia. They were 5 mm in largest diameter. Severe portal hypertensive gastropathy was found in the entire examined stomach. No gross lesions were noted in the second portion of the duodenum. Impression: - Grade II esophageal varices. - Portal hypertensive gastropathy. - No gross lesions in the second portion of the duodenum. - No specimens collected. Recommendation: - [facility]. - Resume regular diet. - Ferrous gluconate at 240 mg orally TID for 6 months. Follow up with hemoglobin in 2 weeks. - Continue present medications. Procedure Code(s): --- Professional --- 38334, Esophagogastroduodenoscopy, flexible, transoral; diagnostic, including collection of specimen(s) by brushing or washing, when performed (separate procedure) CPT copyright 2021 [employer]. All rights reserved. The codes documented in this report are preliminary and upon family psychologist review may be revised to meet current compliance requirements. Ronald Nash DO 11/09/2024 12:19:37 PM This report has been signed electronically. Number of Addenda: 0 Note Initiated On: 11/09/2024 12:01 PM
--- NOTE | 2024-11-09 12:20 | PN_ITS ---
Progress Note Follow-up in office: [7 days] New GI related medications for discharge: [Ferrous gluconate 3 times a day] Follow-up procedures needed: [Capsule endoscopy] Visit Charges Inpatient E&M: [address] [facility] Hosp L1
--- NOTE | 2024-11-09 12:20 | OP.CCLET_ITS ---
11/09/2024 Juan Locke [address] [place] [address] Re : Upper GI endoscopy procedure for Barbara Ledesma Dear Dr. Locke This procedure was performed on Saturday, November 09, 2024. My impressions and recommendations are as follows: Impressions : - Grade II esophageal varices. - Portal hypertensive gastropathy. - No gross lesions in the second portion of the duodenum. - No specimens collected. Recommendations : - [facility]. - Resume regular diet. - Ferrous gluconate at 240 mg orally TID for 6 months. Follow up with hemoglobin in 2 weeks. - Continue present medications. My findings are described in the full procedure note, which is enclosed. If I can be of further assistance, please feel free to contact me at . Sincerely, Ronald Nash, 11/09/2024 12:19:37 PM This report has been signed electronically.
--- NOTE | 2024-11-09 12:30 | PCM.POST.ANE ---
Anesthesia: Postop Eval I Current Vital Signs Temperature: 97 F Pulse Rate: 67 Blood Pressure: 76/47 Respiratory Rate: 16 Pulse Ox: 97 Oxygen Delivery Method: Room Air Assessment Airway patent: Yes Spontaneous unlabored respirations: Yes Mental status: Asleep nausea: No Vomiting: No Anesthesia Complication: No Fluid Hydration Crystalloid volume administer (ml): 30 Total IV fluid infused: 30 Progress Note Anesthesia document: Postop Eval 1 completed: Yes
--- NOTE | 2024-11-09 12:43 | PCM.PN.HOSP ---
Subjective Subjective No issues overnight. Hemoglobin 7.8 today. Blood pressure is low but stable Objective Data Objective Data Vital Signs: Vital Signs Temp Pulse Resp BP Pulse Ox O2 Del Method 97 F L 67 16 76/47 L 97 Room Air 11/09/24 12:31 11/09/24 12:31 11/09/24 12:31 11/09/24 12:31 11/09/24 12:31 11/09/24 12:31 Oxygen Delivery Method Room Air Weight: 205 lb 7.533 oz Body Mass Index (BMI) 35.2 Intake & Output: Intake and Output for Last 24 Hours 11/08/24 11/09/24 11/10/24 03:59 03:59 03:59 Intake Total 3205.75 / 3205.75 620 / 620 110 / 110 Output Total 750 / 750 330 / 330 400 / 400 Balance 2455.75 / 2455.75 290 / 290 -290 / -290 Lab / Micro Data 11/09/24 07:09 11/09/24 07:09 Labs: Laboratory Results - last 24 hr 11/08/24 16:46: POC Glucose 220 H 11/08/24 21:45: POC Glucose 239 H 11/09/24 05:42: POC Glucose 135 H 11/09/24 07:09: WBC 4.9, RBC 2.77 L, Hgb 7.8 L, Hct 24.4 L, MCV 88.1, MCH 28.2, MCHC 32.0, RDW Std Deviation 61.6 H, RDW Coeff of Cornelio 20.2 H, Plt Count 88 L, MPV 11.0, Sodium 137, Potassium 4.0, Chloride 108 H, Carbon Dioxide 20.0 L, Anion Gap 9, BUN 27 H, Creatinine 1.12 H, Estim Creat Clear Calc 51.72, Est GFR (MDRD) Af Amer 62, Est GFR (MDRD) Non-Af 51 L, BUN/Creatinine Ratio 24.1 H, Glucose 145 H, Calcium 8.5 Physical Exam Narrative General: Alert, Oriented x3, Cooperative, No apparent distress HEENT: Atraumatic, PERRLA, EOMI, Normocephalic Oral: Moist Mucosa Neck: Supple, No JVD Lungs: Diminished, Normal air movement, No rhonchi, No wheeze, No rales Cardiovascular: Regular rate, Regular Rhythm, Normal S1, Normal S2, No murmurs Abdomen: Soft, Non Tender, Non-Distended, No Hepato-splenomegaly Extremities: No edema, Capillary Refill Less than 3 Seconds Skin: No rashes, No breakdown Musculoskeletal: No Tenderness to Palpation of Joints or Extremities Neurological: No focal neurological deficits, Motor Exam 5/5 strength throughout, Sensory exam intact to light touch and pain Psych/Mental Status: Flat Assessment & Plan Assessment/Plan (1) Anemia requiring transfusions: (2) Cirrhosis: QUALIFIERS: Hepatic cirrhosis type: unspecified hepatic cirrhosis Ascites presence: unspecified Qualified Code(s): K74.60 - Unspecified cirrhosis of liver (3) Esophageal varices: PLAN: Plan 1. Acute on chronic symptomatic anemia with concern for upper GI bleed, history of decompensated cirrhosis with ascites and esophageal varices ? GI following. Hemoglobin 5.1 on admit, prior baseline 7-9. BUN 49 with only mildly elevated creatinine, consistent with upper GI bleed. Last EGD in 02/2024 showed grade 3 esophageal varices with no bleeding, portal hypertensive gastropathy. Colonoscopy at that time showed perianal hemorrhoids, hemorrhagic and inflamed gas in the rectum and rectal prolapse. Gave 2 units of blood initially on 11/07 with repeat hemoglobin 6.6, then given another unit of blood with hemoglobin 7.6 on morning of 11/08. Per GI, will keep n.p.o. at midnight with plan for upper scope on 11/09. Continue IV PPI twice daily for now. Monitor CBC daily and transfuse for hemoglobin less than 7. 11/09/2024: EGD pending for today for evaluation of esophageal varices 2. Acute on chronic debility ? PT/OT/case management following, appreciate recommendations. 3. Syncopal episode ? Presume secondary to lightheadedness/dizziness in setting of symptomatic anemia as noted above. Continue cardiac monitoring while inpatient. 4. Mild creatinine elevation, improving ? Creatinine 1.24 on admit, baseline appears to be around 0.8-0.9. Presume prerenal from suspected upper GI bleed. Given 1 L of IV fluids and 3 units of blood on day of admit as noted above, repeat creatinine 1.09 on 11/08. Continue to monitor daily BMP and urine output. 11/09/2024: Creatinine is at baseline 5. Left-sided abdominal/flank pain ? CT abdomen pelvis on admit with no concerning findings. Patient notably fell onto that area with her syncopal episode prior to admission; suspect musculoskeletal injury due to this. Continue Tylenol and low-dose oxycodone for pain control for this. Chronic medical conditions: ? Class II obesity: BMI 35 on admit. Complicates hospital course, care and prognosis. ? Anxiety/depression: Continue home duloxetine and bupropion. ? Hypothyroidism: Continue home Synthroid. ? Type 2 diabetes mellitus: Treating with sliding scale insulin with meals while inpatient, adjust as needed. ? History of right nephrectomy DVT: SCDs Charges/Coding Visit Charges Inpatient E&M: 54108 Subs Hosp L2
[2024-11-09 14:07] LABS: Pathologist Review Reviewed
--- NOTE | 2024-11-09 14:47 | PCM.POSTANE2 ---
Anesthesia Postop Eval I Sum Postop Eval Completion status Anesthesia document: Postop Eval 1 completed: Yes Anesthesia Postop Eval I Summary Anesthesia Postop Eval I Summary: Anesthesia Postop Eval I: Assessment Summary Airway patent Yes 11/09/24 12:31 [email or web address] Spontaneous unlabored Yes 11/09/24 12:31 [email or web address] respirations Mental status Asleep 11/09/24 12:31 [email or web address] nausea No 11/09/24 12:31 [email or web address] Vomiting No 11/09/24 12:31 [email or web address] Anesthesia Postop Eval I: Fluid Summary Crystalloid volume administer 30 11/09/24 12:31 [email or web address] (ml) Colloids volume administered ( ml) Blood Product volume administered (ml) Total IV fluid infused 30 11/09/24 12:31 [email or web address] Anesthesia Postop Eval I: Summary Notes Anesthesia Complication No 11/09/24 12:31 [email or web address] Anesthesia Complication Comment: Post-operative progress note Anesthesia: Postop Eval II Evaluation Mental status: Awake and Calm Pain Level: 2 nausea: No Vomiting: No Complications Anesthesia Complication: No
[2024-11-09] MEDS: DULoxetine Hcl 60 MG Capsule PO (14:48)
[2024-11-09] MEDS: buPROPion 100 MG Tablet 200 MG PO (14:48)
--- NOTE | 2024-11-09 16:03 | CASEMGMT ---
Patient expressed interest in completing a Healthcare Power of Charm Filter Operator Helper. SW explained document to patient. SW assisted patient in completing document. Copies were made and given to patient along with original. A copy was also placed in patient's chart. Sonya NEWTON
[2024-11-09] MEDS: Acetaminophen 325 MG Tablet 650 MG PO (16:19)
[2024-11-09] MEDS: Insulin Lispro 100 UNIT/ML INSULN.PEN SC (16:22)
[2024-11-09 17:17] LABS: Bedside Glucose 220 mg/dL (74-106)
[2024-11-10] VITALS (7 sets, daily range): BP systolic 90–98; BP diastolic 50–59; PULSE 66–92; RESP 16–18; TEMP 36.4–37.1; O2SAT 96–100
[2024-11-10] MEDS: Spironolactone 50 MG Tablet PO (00:49)
[2024-11-10] MEDS: Propranolol 10 MG Tablet PO ×2 (00:50→06:41)
[2024-11-10] MEDS: buPROPion 100 MG Tablet PO (00:51)
[2024-11-10] MEDS: Pantoprazole Sodium 40 MG in 0.9% Normal Saline (100mL MB+) 100 ML 330 MG IV ×2 (00:52→10:44)
[2024-11-10 01:28] LABS: Bedside Glucose 141 mg/dL (74-106)
[2024-11-10] MEDS: Levothyroxine 125 MCG Tablet PO (06:34)
[2024-11-10] MEDS: Insulin Lispro 100 UNIT/ML INSULN.PEN SC ×2 (06:34→11:35)
[2024-11-10 07:09] LABS: Bedside Glucose 162 mg/dL (74-106)
[2024-11-10 07:20] LABS: Absolute Neutrophil Count 1.9 X10^3/uL (2.0-7.7); Basophil# 0.01 X10^3/uL; Basophil% 0.3 % (0-1); Eosinophil# 0.14 X10^3/uL; Eosinophils% 4.1 % (0-5); Hematocrit 24.5 % (37-47); Hemoglobin 7.7 g/dL (12.0-15.0); Lymphocyte % 26.6 % (19-41); Mean Corp Hgb Conc 31.4 g/dL (32-36); Mean Corpuscular Volume 89.1 fL (81-99); Mean Platelet Vol. 10.4 fl (6.2-12.0); Monocyte# 0.38 X10^3/uL; Monocyte% 11.2 % (0-10); NRBC Flagged by Analyzer 0 % (0-5); Neutrophil # 1.93 X10^3/uL (2.7-7.7); Neutrophil % 57.2 % (47-70); POSITIVE COUNT YES; POSITIVE MORPHOLOGY YES; Platelet Count 86 K/mm3 (150-450); RBC Distribution Width CV 20.4 % (11.6-14.6); RBC Distribution Width SD 63.6 fl (35.1-43.9); Red Blood Count 2.75 M/mm3 (4.2-5.4); White Blood Count 3.4 K/mm3 (4.4-11.0)
[2024-11-10 07:28] LABS: Differential Indicated SCAN CRITERIA MET
--- NOTE | 2024-11-10 07:49 | CPS ---
SMI and pep at bedside. Rx held at this time. Lab at bedside attempting lab draw. Pt was instructed to do SMI and Pep on won when done.
[2024-11-10 07:50] LABS: Anion Gap 5 (5-15); BUN 23 mg/dL (7-18); BUN/Creat Ratio 21.5 RATIO (10-20); Calcium,Total 9.1 mg/dL (8.5-10.1); Chloride 110 mmol/L (98-107); Creatinine, Serum 1.07 mg/dL (0.55-1.02); EST Glomerular Filtration Rate 54 mL/min (>60); Est Glom Filt Rate - Afr Amer 65 mL/min (>60); Estimated Creatinine Clearance 54.14 ml/min; Glucose 142 mg/dL (74-106); Sodium Level 137 mmol/L (136-145)
[2024-11-10] MEDS: Loratadine 10 MG Tablet PO (08:33)
[2024-11-10] MEDS: DULoxetine Hcl 60 MG Capsule PO (08:33)
[2024-11-10] MEDS: buPROPion 100 MG Tablet 200 MG PO (08:34)
[2024-11-10] MEDS: Cyanocobalamin 500 MCG Tablet 1000 MCG PO (08:34)
[2024-11-10] MEDS: Sodium Ferric Gluconat/Sucrose 250 MG in 0.9% Normal Saline (250mL Bag) 250 ML 135 MG IV (08:35)
[2024-11-10] MEDS: 0.9% Saline Lock 10 ML Syringe IV (08:35)
[2024-11-10 08:46] LABS: Anisocytosis 2+; Platelet Estimate MOD DEC (ADEQ)
[2024-11-10 12:04] LABS: Bedside Glucose 159 mg/dL (74-106)
--- NOTE | 2024-11-10 15:50 | DCINST_ITS ---
Discharge Instructions Diet Discharge Diet: 8 Cup Fluid Restriction and 2000 mg Sodium Diet DC O2, CPAP, BIPAP needs Home O2 Discharge instructions: No Dressing / Incision Discharge Activity: Return to Normal Activity Dressing / Incision Call your doctor if you observe: Fever of 101 or Higher, Shortness of breath, Dizziness, Fainting spells, Swelling in the ankles, Chest pain and Increased palpitations (irregular heartbeat) Follow Up Care Test Results: Test results from this visit will be discussed in further detail at your follow- up appointment, if applicable. Discharge Plan Admission Admit Date/Time: 11/07/24 14:07 Attending Provider: Anuj Tubbs Primary Care Provider: Juan Locke Consulting Providers: Momo Hernandez Additional Instructions / Restrictions: Follow-up with your primary care doctor in 3 to 5 days to monitor your hemoglobin and your anemia. May need outpatient transfusions or iron infusions depending on results. Discharge Orders/Prescriptions Prescriptions: New midodrine 5 mg Tablet 5 mg PO TIDCM 30 Days Qty: 90 0RF ferrous gluconate 324 mg (38 mg iron) tablet 324 mg PO TID Qty: 90 0RF Continued Trulicity 0.75 mg/0.5 mL pen injector 0.75 mg subcut SA cyanocobalamin (vitamin B-12) 1,000 mcg capsule 1,000 mcg PO DAILY spironolactone 50 mg tablet 50 mg PO BID Qty: 30 2RF Rx Instructions: Hold if serum POTASSIUM is more than 5.1 ergocalciferol (vitamin D2) 50,000 UNIT capsule 50,000 unit PO SA duloxetine 60 MG capsule,delayed release(DR/EC) 60 mg PO DAILY albuterol sulfate 90 mcg/actuation HFA aerosol inhaler 1 - 2 puff INHALATION PRN PRN (Reason: ALLERGIES) bupropion HCl 100 mg tablet 200 mg PO DAILY Patient Comments: take 2 tablets by mouth every morning then 1 tablet every evening bupropion HCl 100 mg tablet 100 mg PO QPM furosemide 40 mg tablet 40 mg PO QDAY fexofenadine [Aaliyah Allergy] 180 mg tablet 180 mg PO DAILY levothyroxine [Synthroid] 125 mcg tablet 125 mcg PO DAILY propranolol 10 mg Tablet 10 mg PO TID 30 Days Qty: 90 0RF Changed omeprazole 20 mg capsule,delayed release(DR/EC) 40 mg PO DAILY 30 Days Qty: 60 0RF Referrals / Follow Up: Juan Locke DO [Primary Care Provider] - Within 1 Week FriendRonald DO [Med Staff - Active Staff] - Within 1 Week Disposition Disposition (needs filled in before D/C Order can be placed): Home, Self Care
--- NOTE | 2024-11-10 15:56 | DS.PCM_ITS ---
Providers Date of Admission: 11/07/24 Primary Care Physician: Dr. Juan Locke, Consultations 11/07/24 16:26 Consult: Gastroenterology Routine Consulting Provider: [facility] Reason for Consult: acute on chronic anemia suspected due to slow upper GIB EMERGENT Consult: No MD Notified: Yes Date Notified: 11/07/24 Time Notified: 17:21 Method of Notification: Text Reason For Visit: weakness Diagnosis Discharge Diagnosis (1) Anemia requiring transfusions: Status: Acute Code(s): D64.9 - Anemia, unspecified (2) Cirrhosis: Status: Chronic Code(s): K74.60 - Unspecified cirrhosis of liver Qualifiers: Hepatic cirrhosis type: unspecified hepatic cirrhosis Ascites presence: unspecified Qualified Code(s): K74.60 - Unspecified cirrhosis of liver (3) Esophageal varices: Status: Acute Code(s): I85.00 - Esophageal varices without bleeding Medications at Discharge Home Medications duloxetine 60 mg capsule,delayed release 60 mg PO DAILY 11/06/17 ergocalciferol (vitamin D2) 1,250 mcg (50,000 unit) capsule 50,000 unit PO SA 11/06/17 albuterol sulfate 90 mcg/actuation aerosol inhaler 1 - 2 puff inhalation PRN PRN ALLERGIES 02/20/23 dulaglutide 0.75 mg/0.5 mL subcutaneous pen injector (Trulicity) 0.75 mg subcut SA 10/10/23 cyanocobalamin (vitamin B-12) 1,000 mcg capsule 1,000 mcg PO DAILY 02/13/24 levothyroxine 125 mcg tablet (Synthroid) 125 mcg PO DAILY disorder of thyroid gland 02/27/24 fexofenadine 180 mg tablet (Aaliyah Allergy) 180 mg PO DAILY 03/03/24 propranolol 10 mg tablet 10 mg PO TID 30 days #90 tabs 04/02/24 spironolactone 50 mg tablet 50 mg PO BID #30 tabs 07/07/24 bupropion HCl 100 mg tablet 100 mg PO QPM 11/07/24 bupropion HCl 100 mg tablet 200 mg PO DAILY 11/07/24 furosemide 40 mg tablet 40 mg PO QDAY 11/07/24 ferrous gluconate 324 mg (38 mg iron) tablet 324 mg PO TID #90 tabs 11/10/24 midodrine 5 mg tablet 5 mg PO TIDCM 30 days #90 tabs 11/10/24 omeprazole 20 mg capsule,delayed release 40 mg (2 x 20 mg) PO DAILY Heartburn 30 days #60 caps 11/10/24 Hospital Course Operations None Procedures EGD Summary of Care Provided Minutes Spent on Discharge: 37 Hospital Course: Per HPI: JANETTE MENESES, is a 69 F who presented to [facility] ED on 11/07/2024 with worsening fatigue and a reported syncopal episode at home. Medical history is significant for cirrhosis with varices and iron deficiency anemia. Patient has had worsening fatigue and lightheadedness especially with standing and ambulation over the past several days. She had an episode a few days ago where she fell face first and had a broken tooth, bruising to her lip and left-sided abdominal/flank pain afterward. Sister notes that patient generally has seemed to decline over the past few months and has appeared especially fatigued and weak over the past several days. Patient does report some black stools over the past few days. Has history of hemorrhoids but denies any recent bright red blood in stools. In the ED hemoglobin was 5.1. Baseline hemoglobin is around 7-9. Initial blood pressure was in the 110 systolic but then dropped to the 80s systolic. She was given 1 L of IV fluids with improvement back to the 110s. CT abdomen pelvis showed sequelae of portal hypertension with cirrhosis and splenomegaly but no other concerning findings; notably did not show any ascites or any pleural effusions. 2 units of blood were ordered for her and hospitalist was contacted for admission. I saw the patient at bedside on the floor shortly after she arrived over from the ED. Patient had blood transfusion running at that time. She was laying comfortably on her side in bed, conversing normally and in no acute distress. She continued to feel fatigued currently but had no lightheadedness or dizziness at rest. She did report mild abdominal pain similar to previous days and suspects it is likely muscular from where she fell. She denies any fevers or chills. No other acute concerns at this time. Hospital Course: 1. Acute on chronic symptomatic anemia with concern for upper GI bleed, history of decompensated cirrhosis with ascites and esophageal varices ? GI following. Hemoglobin 5.1 on admit, prior baseline 7-9. BUN 49 with only mildly elevated creatinine, consistent with upper GI bleed. Last EGD in 02/2024 showed grade 3 esophageal varices with no bleeding, portal hypertensive gastropathy. Colonoscopy at that time showed perianal hemorrhoids, hemorrhagic and inflamed gas in the rectum and rectal prolapse. Gave 2 units of blood initially on 11/07 with repeat hemoglobin 6.6, then given another unit of blood with hemoglobin 7.6 on morning of 11/08. Per GI, will keep n.p.o. at midnight with plan for upper scope on 11/09. Continue IV PPI twice daily for now. Monitor CBC daily and transfuse for hemoglobin less than 7. 11/09/2024: EGD pending for today for evaluation of esophageal varices 11/10/2024: EGD with grade 2 varices but no signs of obvious bleeding. She needs a capsule endoscopy next week as an outpatient. Hemoglobin today is still stable at 7.7 blood pressures are little bit low and after discussion with gastroenterology, the recommendation was for midodrine 5 mg p.o. [address] we can push diuresis as an outpatient if necessary. I discussed with her the plan for discharge today she expressed understanding of the risks and benefits of going home and would like to go home today. I do recommend close outpatient monitoring of her anemia so that way she can receive either outpatient transfusions or iron infusions. 2. Acute on chronic debility ? PT/OT/case management following, appreciate recommendations. 3. Syncopal episode ? Presume secondary to lightheadedness/dizziness in setting of symptomatic anemia as noted above. Continue cardiac monitoring while inpatient. 4. Mild creatinine elevation, improving ? Creatinine 1.24 on admit, baseline appears to be around 0.8-0.9. Presume prerenal from suspected upper GI bleed. Given 1 L of IV fluids and 3 units of blood on day of admit as noted above, repeat creatinine 1.09 on 11/08. Continue to monitor daily BMP and urine output. 11/09/2024: Creatinine is at baseline 11/10/2024: Creatinine is 1.07 today on the day of discharge 5. Left-sided abdominal/flank pain ? CT abdomen pelvis on admit with no concerning findings. Patient notably fell onto that area with her syncopal episode prior to admission; suspect musculoskeletal injury due to this. Continue Tylenol and low-dose oxycodone for pain control for this. Chronic medical conditions: ? Class II obesity: BMI 35 on admit. Complicates hospital course, care and prognosis. ? Anxiety/depression: Continue home duloxetine and bupropion. ? Hypothyroidism: Continue home Synthroid. ? Type 2 diabetes mellitus: Treating with sliding scale insulin with meals while inpatient, adjust as needed. ? History of right nephrectomy Physical Exam Narrative General: Alert, Oriented x3, Cooperative, No apparent distress HEENT: Atraumatic, PERRLA, EOMI, Normocephalic Oral: Moist Mucosa Neck: Supple, No JVD Lungs: Diminished, Normal air movement, No rhonchi, No wheeze, No rales Cardiovascular: Regular rate, Regular Rhythm, Normal S1, Normal S2, No murmurs Abdomen: Soft, Non Tender, Non-Distended, No Hepato-splenomegaly Extremities: No edema, Capillary Refill Less than 3 Seconds Skin: No rashes, No breakdown Musculoskeletal: No Tenderness to Palpation of Joints or Extremities Neurological: No focal neurological deficits, Motor Exam 5/5 strength throughout, Sensory exam intact to light touch and pain Psych/Mental Status: Flat Weight / BMI Weight Weight: 205 lb 7.533 oz Body Mass Index (BMI) 35.2 ABG / Lab / Microbiology Data 11/10/24 07:07 11/10/24 07:07 Laboratory: Laboratory Results - last 24 hr 11/09/24 16:21: POC Glucose 220 H 11/10/24 00:58: POC Glucose 141 H 11/10/24 06:32: POC Glucose 162 H 11/10/24 07:07: WBC 3.4 L, RBC 2.75 L, Hgb 7.7 L, Hct 24.5 L, MCV 89.1, MCH 28.0, MCHC 31.4 L, RDW Std Deviation 63.6 H, RDW Coeff of Cornelio 20.4 H, Plt Count 86 L, MPV 10.4, Immature Gran % (Auto) 0.600, Neut % (Auto) 57.2, Lymph % (Auto) 26.6, Starr % (Auto) 11.2 H, Eos % (Auto) 4.1, Baso % (Auto) 0.3, Absolute Neuts (auto) 1.9 L, Absolute Lymphs (auto) 0.90, Nucleated RBC % 0, Platelet Estimate MOD DEC, Anisocytosis 2+, Sodium 137, Potassium 4.0, Chloride 110 H, Carbon Dioxide 22.0, Anion Gap 5, BUN 23 H, Creatinine 1.07 H, Estim Creat Clear Calc 54.14, Est GFR (MDRD) Af Amer 65, Est GFR (MDRD) Non-Af 54 L, BUN/Creatinine Ratio 21.5 H, Glucose 142 H, Calcium 9.1 11/10/24 11:33: POC Glucose 159 H D/C Instructions Discharge Diet: 8 Cup Fluid Restriction and 2000 mg Sodium Diet Call your doctor if you observe: Fever of 101 or Higher, Shortness of breath, Dizziness, Fainting spells, Swelling in the ankles, Chest pain and Increased palpitations (irregular heartbeat) DC O2, CPAP, BIPAP Needs Home O2 Discharge instructions: No Meaningful Use Info Meaningful Use Meaningful Use Diagnoses (Choose all that apply): None applicable Ischemic Stroke Statin Dosing Therapy Reference: STATIN DOSE THERAPY REFERENCE: * Patients > 75 years receive moderate or high dose statin therapy. * Patients 75 years or YOUNGER should receive HIGH intensity statin dose unless contraindicated. You will be required to document reason for non-treatment if statin daily dose does not meet guidelines. HIGH DOSE STATIN THERAPY DAILY Atorvastatin > than or = to 40 mg Rosuvastatin > than or = to 20 mg Amlodipine + Atorvastatin > than or = to 2.5/40 mg Ezetimibe + Simvastatin 10/80 mg Simvastatin 80mg Discharge Plan Admission Admit Date/Time: 11/07/24 14:07 Attending Provider: Anuj Tubbs Primary Care Provider: Juan Locke Consulting Providers: Momo Hernandez Additional Instructions / Restrictions: Follow-up with your primary care doctor in 3 to 5 days to monitor your hemoglobin and your anemia. May need outpatient transfusions or iron infusions depending on results. Discharge Orders/Prescriptions Prescriptions: New midodrine 5 mg Tablet 5 mg PO TIDCM 30 Days Qty: 90 0RF ferrous gluconate 324 mg (38 mg iron) tablet 324 mg PO TID Qty: 90 0RF Continued Trulicity 0.75 mg/0.5 mL pen injector 0.75 mg subcut SA cyanocobalamin (vitamin B-12) 1,000 mcg capsule 1,000 mcg PO DAILY spironolactone 50 mg tablet 50 mg PO BID Qty: 30 2RF Rx Instructions: Hold if serum POTASSIUM is more than 5.1 ergocalciferol (vitamin D2) 50,000 UNIT capsule 50,000 unit PO SA duloxetine 60 MG capsule,delayed release(DR/EC) 60 mg PO DAILY albuterol sulfate 90 mcg/actuation HFA aerosol inhaler 1 - 2 puff INHALATION PRN PRN (Reason: ALLERGIES) bupropion HCl 100 mg tablet 200 mg PO DAILY Patient Comments: take 2 tablets by mouth every morning then 1 tablet every evening bupropion HCl 100 mg tablet 100 mg PO QPM furosemide 40 mg tablet 40 mg PO QDAY fexofenadine [Aaliyah Allergy] 180 mg tablet 180 mg PO DAILY levothyroxine [Synthroid] 125 mcg tablet 125 mcg PO DAILY propranolol 10 mg Tablet 10 mg PO TID 30 Days Qty: 90 0RF Changed omeprazole 20 mg capsule,delayed release(DR/EC) 40 mg PO DAILY 30 Days Qty: 60 0RF Referrals / Follow Up: Juan Locke DO [Primary Care Provider] - Within 1 Week Ronald Nash DO [Med Staff - Active Staff] - Within 1 Week Disposition Disposition (needs filled in before D/C Order can be placed): Home, Self Care Charges/Coding Visit Charges Inpatient E&M: 36081 Disch Hosp >30min
[2024-11-10] MEDS: Midodrine HCl 5 MG Tablet PO (15:59)
--- NOTE | 2024-11-10 16:24 | CASEMGMT ---
Patient has order for discharge. RN CM in to discuss needs at discharge. Patient denies needs or help at discharge. Patient had no further questions or concerns.
[2024-11-11 05:07] LABS: Carbohydrate AG 19-9 18 U/mL (0-35); Carcinoembryonic Antigen 1.9 ng/mL (0.0-4.7)
== END 2024-11-10 17:26 | disposition home or self-care (01) | DRG 378 ==
LOC: ED 14:08 → PCU 14:57 → ED 19:19 → PCU 19:19
PROVIDERS: Anesthesiology; Internal Medicine Gastroenterology; Admitting Provider Hospitalist; Emergency Provider Emergency Medicine; PCP Student in an Organized Health Care Education/Training Program; Visit Provider Family Medicine
PROC: 0DJ08ZZ Inspection of Upper Intestinal Tract, Via Natural or Artificial Opening Endoscopic (ICD-10-PCS; CPT 43235; principal; 2024-11-09 11:45)
DX: K92.2 Gastrointestinal hemorrhage, unspecified (principal); D61.818 Other pancytopenia; K76.6 Portal hypertension; D62 Acute posthemorrhagic anemia; E11.9 Type 2 diabetes mellitus without complications; E03.9 Hypothyroidism, unspecified; D50.9 Iron deficiency anemia, unspecified; E66.812 Obesity, class 2; K74.60 Unspecified cirrhosis of liver; F32.A Depression, unspecified; I10 Essential (primary) hypertension; S00.531A Contusion of lip, initial encounter; S02.5XXA Fracture of tooth (traumatic), initial encounter for closed fracture; I85.10 Secondary esophageal varices without bleeding; F41.9 Anxiety disorder, unspecified; K21.9 Gastro-esophageal reflux disease without esophagitis; W19.XXXA Unspecified fall, initial encounter; K76.0 Fatty (change of) liver, not elsewhere classified; I86.4 Gastric varices; K31.89 Other diseases of stomach and duodenum; S39.001A Unspecified injury of muscle, fascia and tendon of abdomen, initial encounter; R55 Syncope and collapse; R16.1 Splenomegaly, not elsewhere classified; R79.89 Other specified abnormal findings of blood chemistry; R53.81 Other malaise; Z90.5 Acquired absence of kidney; Z79.85 Long-term (current) use of injectable non-insulin antidiabetic drugs; Z87.19 Personal history of other diseases of the digestive system; Z79.899 Other long term (current) drug therapy; Z79.890 Hormone replacement therapy; Z87.891 Personal history of nicotine dependence; Z68.35 Body mass index [BMI] 35.0-35.9, adult
CPT/HCPCS: 36415; 74176; 80048; 80053; 82378; 82962; 83036; 83735; 84100; 84443; 85018; 85025; 85027; 85610; 85730; 86301; 86304; 86850; 86900; 86901; 93005; 94668; 97162; 97165; 99285; P9016; A4216; J2405; J2916

== ENCOUNTER 2025-02-09 12:01 | Inpatient (IN) | payer MEDICARE, SELFPAY ==
[2025-02-09] VITALS (15 sets, daily range): BP systolic 93–128; BP diastolic 43–78; PULSE 78–109; RESP 14–18; TEMP 36.6–37.3; O2SAT 96–100; BMI 33.4; BMI 32.5
--- NOTE | 2025-02-09 12:39 | EKG12_ITS ---
Test Reason : WEAKNESS Blood Pressure : */* mmHG Vent. Rate : 102 BPM Atrial Rate : 102 BPM P-R Int : 120 ms QRS Dur : 70 ms QT Int : 364 ms P-R-T Axes : * 33 97 degrees QTcB Int : 474 ms Sinus tachycardia Low voltage QRS Abnormal QRS-T angle, consider primary T wave abnormality Abnormal ECG Confirmed by Luis Ochoa ([id number]), publishing editor JUAN DAVID JOSEPH ([id number]) on 02/15/2025 11:25:37 AM Referred By: Kwasi Nieves Confirmed By: Luis Ochoa
--- NOTE | 2025-02-09 12:40 | ED.VIS.GI ---
HPI HPI - GI History of Present Illness Chief Complaint: GI Bleed Informant: patient and family (Sister) Narrative Narrative: 70-year-old female recently diagnosed with cirrhosis from unknown etiology, she has been having black tarry stools for the last 3 to 4 days, feeling weak and lightheaded when she stands up or exerts herself, no syncope or exertional chest discomfort. She is also seen bright red blood whenever she wipes but she is just having melena when she has bowel movements without bright red blood. She denies any nausea or vomiting. She has a history of known varices. Taking no anticoagulants. She states she feels like she probably needs another blood transfusion which she has had before when she felt like this. [facility] Medical History Ascites Cirrhosis Iron deficiency anemia Lung nodule Hemorrhoids History of diabetes mellitus History of cirrhosis Anemia Pleural effusion on left Exertional dyspnea Chest pain Wears contact lenses Wears glasses Post-menopausal Anxiety Alcohol use Thyroid disease History of renal disease Anemia Back pain History of diverticulitis Gastric reflux Former smoker Sleep apnea Chronic cough S/p nephrectomy Depression Migraines HTN (hypertension) Diabetes Home Medications ?Medication ?Instructions ?Recorded ?Last Taken ?Type duloxetine 60 mg capsule,delayed 60 mg PO DAILY mental health 11/06/17 02/08/25 History release ergocalciferol (vitamin D2) 1,250 50,000 unit PO vitamin 11/06/17 02/06/25 History mcg (50,000 unit) capsule albuterol sulfate 90 mcg/actuation 1 - 2 puff inhalation PRN PRN 02/20/23 03/16/24 History aerosol inhaler ALLERGIES dulaglutide 0.75 mg/0.5 mL 0.75 mg subcut diabetes 10/10/23 02/06/25 History subcutaneous pen injector (Trulicity) cyanocobalamin (vitamin B-12) 1,000 mcg PO DAILY vitamin 02/13/24 02/08/25 History 1,000 mcg capsule fexofenadine 180 mg tablet 180 mg PO DAILY allergies 03/03/24 02/08/25 History (Aaliyah Allergy) propranolol 10 mg tablet 10 mg PO TID blood pressure 30 04/02/24 02/08/25 Rx days #90 tabs spironolactone 50 mg tablet 50 mg PO BID diuretic #30 tabs 07/07/24 02/08/25 Rx furosemide 40 mg tablet 40 mg PO QDAY diuretic 11/07/24 02/09/25 History ferrous gluconate 324 mg (38 mg 324 mg PO TID #90 tabs 11/10/24 02/08/25 Rx iron) tablet famotidine 40 mg tablet 40 mg PO QHS #30 tabs 11/21/24 02/08/25 Rx omeprazole 40 mg capsule,delayed 40 mg PO BID #60 caps 11/21/24 02/08/25 Rx release cholestyramine 4 gram oral powder 4 g PO DAILY 02/09/25 02/08/25 History for suspension in a packet (Prevalite) levothyroxine 137 mcg tablet 137 mcg PO DAILY 02/09/25 02/08/25 History (Synthroid) Allergy/AdvReac Type Severity Reaction Status Date / Time adhesive tape Allergy Rash Verified 02/09/25 12:03 Family History Father Colon cancer Brother Cancer bladder Surgical History History of thoracentesis Hx of colonoscopy History of esophagogastroduodenoscopy (EGD) S/P shoulder surgery S/P hysterectomy History of lobectomy of thyroid Social History Smoking Status: Former smoker alcohol intake: current alcohol intake frequency: holidays/special occasions only ROS ROS ED Constitutional Constitutional ED: Reports fatigue and weakness; Denies chills or fever(s) Eyes Eyes: Denies change in vision or diplopia ENT ENT ED: Denies rhinorrhea or sore throat Cardiovascular Cardiovascular: Reports lightheadedness and orthostatic symptoms; Denies chest pain, palpitations or syncope Respiratory/Chest Respiratory/Chest: Denies cough or dyspnea Gastrointestinal Gastrointestinal: Reports hematochezia and melena; Denies abdominal pain, diarrhea, nausea or vomiting Genitourinary Genitourinary ED: Denies dysuria or hematuria Musculoskeletal Musculoskeletal: Denies back pain or neck pain Integumentary Denies abscess or rash Neurologic Neurologic: Denies headache(s), paresthesias or weakness Psychiatric Psychiatric: Denies anxiety or suicidal thoughts EXAM Physical Exam Const Vital Signs: 02/09/25 12:02 02/09/25 12:13 02/09/25 13:26 Temperature 97.8 F 98.2 F Temperature Source Oral Oral Pulse Rate 106 H 81 Pulse Rate [Lying] 104 H Pulse Rate [Sitting (for 1 minute prior to obtaining)] 105 H Pulse Rate [Standing (for 1 minute prior to obtaining)] 109 H Respiratory Rate 16 17 Blood Pressure 128/68 H 122/47 H Blood Pressure [Lying] 110/50 L Blood Pressure [Sitting (for 1 minute prior to obtaining)] 121/43 H Blood Pressure [Standing (for 1 minute prior to obtaining)] 111/50 L Blood Pressure Mean 88 72 Blood Pressure Mean [Lying] 70 Blood Pressure Mean [Sitting (for 1 minute prior to obtaining)] 69 Blood Pressure Mean [Standing (for 1 minute prior to obtaining)] 70 Pulse Ox 100 100 Oxygen Delivery Method Room Air Room Air 02/09/25 14:00 Temperature Temperature Source Pulse Rate 100 Pulse Rate [Lying] Pulse Rate [Sitting (for 1 minute prior to obtaining)] Pulse Rate [Standing (for 1 minute prior to obtaining)] Respiratory Rate Blood Pressure 110/55 L Blood Pressure [Lying] Blood Pressure [Sitting (for 1 minute prior to obtaining)] Blood Pressure [Standing (for 1 minute prior to obtaining)] Blood Pressure Mean 73 Blood Pressure Mean [Lying] Blood Pressure Mean [Sitting (for 1 minute prior to obtaining)] Blood Pressure Mean [Standing (for 1 minute prior to obtaining)] Pulse Ox 98 Oxygen Delivery Method Positive well nourished and well developed General Appearance ED: well developed and NAD HEENT Reports moist mucous membranes normocephalic and atraumatic Eyes PERRL and EOMs intact bilaterally Neck full ROM and supple Resp normal respiratory effort and clear to auscultation bilaterally Cardio regular rate, regular rhythm and no murmurs Rate: tachycardic GI non-tender and non-distended GI Narrative: On rectal there are several external hemorrhoids, none are tender, none appear to be actively bleeding. On ANTHONY there is no specimen available at this time, no active bleeding. Auscultation: normoactive bowel sounds Palpation: soft Back/Spine no CVA tenderness General Back: other FROM Extremity normal to inspection General Extremety ED: Negative for edema, pulses abnormal or tenderness General Extremity: Negative for edema or pulses abnormal Neuro oriented x3, CN's II-XII intact bilaterally and no sensory deficits noted Sensorium / Orientation: awake and alert Motor Exam: strength 5/5 throughout Psych mental status grossly normal and thought process normal Skin no rashes or lesions noted and no wounds MDM MDM MDM Narrative Medical decision making narrative: Patient indeed with acute blood loss anemia with a hemoglobin of 5.2. She consented to blood, which was started in the ER. She remained clinically and hemodynamically stable while resting. We did orthostatics officially they were negative even though she is having orthostatic symptoms prior to arrival. Her BUN is not very high, just 24. This is not suggestive of an acute stomach/esophagus bleed and she is not having any vomiting or nausea. I reviewed some old GI notes, EGD results, and recent pill capsule study. She has severe portal venous gastropathy, and grade 2 esophageal varices in the mid and distal esophagus. The pill study showed diffuse enteritis but there is no active bleeding during the study. This was done in November. I spoke with Dr. Saad DIAS. I went over some of the recent outpatient records that I read, he was okay with the patient staying here. Discussed with hospitalist. Currently there was some delay in getting blood transfusion products to the patient because of positive antibodies, requiring more processing on the behalf of the blood bank. History & Record Review Additional record(s) reviewed:: Prior outpatient record Lab Data Attestation: I reviewed the patient's lab results. Labs: Laboratory Results - last 24 hr 02/09/25 02/09/25 12:11 12:56 WBC 6.7 RBC 2.14 L Hgb 5.2 L* Hct 17.5 L MCV 81.8 MCH 24.3 L MCHC 29.7 L RDW Std Deviation 52.7 H RDW Coeff of Cornelio 17.8 H Plt Count 183 MPV 11.3 Immature Gran % (Auto) 0.300 Neut % (Auto) 72.5 H Lymph % (Auto) 16.5 L [place] % (Auto) 9.1 Eos % (Auto) 1.5 Baso % (Auto) 0.1 Absolute Neuts (auto) 4.9 Absolute Lymphs (auto) 1.11 Nucleated RBC % 0 PT 15.5 H INR 1.2 APTT 24.8 Sodium 137 Potassium 3.8 Chloride 105 Carbon Dioxide 17.0 L Anion Gap 14 BUN 24 H Creatinine 1.10 Estim Creat Clear Calc 50.49 Est GFR (MDRD) Non-Af 54 L BUN/Creatinine Ratio 21.7 H Glucose 203 H Calcium 9.4 Total Bilirubin 0.85 AST 20 ALT 13 Alkaline Phosphatase 166 H Total Protein 5.4 L Albumin 3.4 Globulin 2.1 L Albumin/Globulin Ratio 1.6 Blood Type A POSITIVE Antibody Screen POSITIVE Antibody Identification ANTI-E Rhythm Strip Rhythm Strip: Sinus Tach Rate: 102 Ectopy: None EKG Initial EKG: Attestation: I personally reviewed and interpreted this EKG as follows: Interpretation: Sinus Rhythm, No Acute Injury Pattern and Non-Specific ST Changes Management Discussion w/another healthcare provider: Colored Liquid Plastic Applier (Dr. Nash GI) Critical Care Time Critical Care Time: Yes Critical care time (excluding procedures): 30-74 minutes (33 min), Including time spent:, Discussing w/Patient &/or Family/It Systems Manager, Discussing w/Consultants, Arranging Admission or Transfer and Performing Direct Patient Care at Bedside Discharge Plan Triage Chief Complaint: GI Bleed ED Provider: Yared Peraza Dx/Rx/DC Orders Clinical Impression: ABLA (acute blood loss anemia), Cirrhosis, Esophageal varices, Acute upper gastrointestinal bleeding Prescriptions: No Action Trulicity 0.75 mg/0.5 mL pen injector 0.75 mg subcut SA cyanocobalamin (vitamin B-12) 1,000 mcg capsule 1,000 mcg PO DAILY spironolactone 50 mg tablet 50 mg PO BID Qty: 30 2RF Rx Instructions: Hold if serum POTASSIUM is more than 5.1 famotidine 40 mg tablet 40 mg PO QHS Qty: 30 3RF omeprazole 40 mg capsule,delayed release(DR/EC) 40 mg PO BID Qty: 60 3RF ergocalciferol (vitamin D2) 50,000 UNIT capsule 50,000 unit PO SA duloxetine 60 MG capsule,delayed release(DR/EC) 60 mg PO DAILY albuterol sulfate 90 mcg/actuation HFA aerosol inhaler 1 - 2 puff INHALATION PRN PRN (Reason: ALLERGIES) furosemide 40 mg tablet 40 mg PO QDAY ferrous gluconate 324 mg (38 mg iron) tablet 324 mg PO TID Qty: 90 0RF fexofenadine [Aaliyah Allergy] 180 mg tablet 180 mg PO DAILY propranolol 10 mg Tablet 10 mg PO TID 30 Days Qty: 90 0RF levothyroxine [Synthroid] 137 mcg tablet 137 mcg PO DAILY Prevalite 4 gram powder in packet 4 g PO DAILY Primary Care Provider: Juan Locke Referrals: Juan Locke DO [Primary Care Provider] - Print Language: Danish Disposition Disposition: Acute Care Hospital [facility]
[2025-02-09 13:08] LABS: Absolute Lymphocyte Count 1.11 X10^3/uL (0.83-4.51); Absolute Neutrophil Count 4.9 X10^3/uL (2.0-7.7); Basophil# 0.01 X10^3/uL; Basophil% 0.1 % (0-1); Eosinophils% 1.5 % (0-5); Hematocrit 17.5 % (37-47); Lymphocyte # 1.11 X10^3/ul (0.83-4.51); Lymphocyte % 16.5 % (19-41); Mean Corp Hgb Conc 29.7 g/dL (32-36); Mean Corpuscular Hgb 24.3 pg (27.0-32.0); Mean Corpuscular Volume 81.8 fL (81-99); Mean Platelet Vol. 11.3 fl (6.2-12.0); Monocyte# 0.61 X10^3/uL; Monocyte% 9.1 % (0-10); NRBC Flagged by Analyzer 0 % (0-5); Neutrophil # 4.88 X10^3/uL (2.7-7.7); Neutrophil % 72.5 % (47-70); POSITIVE COUNT YES; Platelet Count 183 K/mm3 (150-450); RBC Distribution Width CV 17.8 % (11.6-14.6); RBC Distribution Width SD 52.7 fl (35.1-43.9); Red Blood Count 2.14 M/mm3 (4.2-5.4); White Blood Count 6.7 K/mm3 (4.4-11.0)
[2025-02-09 13:12] LABS: Hemoglobin 5.2 g/dL (12.0-15.0)
[2025-02-09 13:31] LABS: International Normalized Ratio 1.2; Prothrombin Time (Protime)PT. 15.5 SECONDS (11.7-14.9)
[2025-02-09 13:32] LABS: Partial Thromboplast Time 24.8 Seconds (24.1-36.2)
[2025-02-09 13:35] LABS: ALB/GLOB Ratio 1.6 RATIO (0.9-2.4); AST(SGOT) 20 U/L (<=31); Alanine Aminotransfer ALT/SGPT 13 U/L (<=34); Albumin, Serum 3.4 g/dL (3.4-4.8); Alkaline Phosphatase 166 U/L (35-104); Anion Gap 14 (5-15); BUN 24 mg/dL (4-19); BUN/Creat Ratio 21.7 RATIO (10-20); Calcium,Total 9.4 mg/dL (7.6-11.0); Chloride 105 mmol/L (98-108); EST Glomerular Filtration Rate 54 (>60); Estimated Creatinine Clearance 50.49 ml/min (50-250); Globulin 2.1 g/dL (2.2-4.2); Glucose 203 mg/dL (70-99); Potassium 3.8 mmol/L (3.3-5.1); Protein, Total 5.4 g/dL (5.9-8.4); Sodium Level 137 mmol/L (133-145); Total Bilirubin 0.85 mg/dL (0.00-1.30)
--- NOTE | 2025-02-09 16:24 | HP.PCM.HOS_ITS ---
HPI - General General Date of Admission: 02/09/25 Date of Service: 02/09/25 Chief Complaint: weakness. HPI Narrative JANETTE MENESES, is a 70 F who presents with weakness over the past few days. This is similar feeling that she has felt when she has been anemic before. Presented to the emergency room and hemoglobin was 5.2. Patient notes that she been having melena over the past few days as well. Patient denies any hematochezia nor any hematemesis. She presented to the emergency room and was ordered 2 units of packed red blood cells. Dr. Nash, gastroenterology, was contacted and recommend the patient be admitted here and then tentative plans for upper endoscopy on the . Patient did have capsule endoscopy on November 30 that showed no signs of blood loss anemia but did note portal gastropathy. Patient also had EGD performed on November 09 that showed grade 2 varices in the midesophagus, distal esophagus and gastrojejunal junction. Severe portal hypertensive gastropathy throughout the entire stomach. [facility] Medical History Ascites Cirrhosis Iron deficiency anemia Lung nodule Hemorrhoids History of diabetes mellitus History of cirrhosis Anemia Pleural effusion on left Exertional dyspnea Chest pain Wears contact lenses Wears glasses Post-menopausal Anxiety Alcohol use Thyroid disease History of renal disease Anemia Back pain History of diverticulitis Gastric reflux Former smoker Sleep apnea Chronic cough S/p nephrectomy Depression Migraines HTN (hypertension) Diabetes Home Medications ?Medication ?Instructions ?Recorded ?Last Taken ?Type duloxetine 60 mg capsule,delayed 60 mg PO DAILY mental health 11/06/17 02/08/25 History release ergocalciferol (vitamin D2) 1,250 50,000 unit PO SA vi tamin 11/06/17 02/06/25 History mcg (50,000 unit) capsule albuterol sulfate 90 mcg/actuation 1 - 2 puff inhalati on PRN PRN 02/20/23 03/16/24 History aerosol inhaler ALLERGIES dulaglutide 0.75 mg/0.5 mL 0.75 mg subcut SA diabetes 10/10/23 02/06/25 History subcutaneous pen injector (Trulicity) cyanocobalamin (vitamin B-12) 1,000 mcg PO DAILY vitam in 02/13/24 02/08/25 History 1,000 mcg capsule fexofenadine 180 mg tablet 180 mg PO DAILY allergies 0 03/03/24 02/08/25 History (Aaliyah Allergy) propranolol 10 mg tablet 10 mg PO TID blood pressure 30 04/02/24 02/08/25 Rx days #90 tabs spironolactone 50 mg tablet 50 mg PO BID diuretic #30 tabs 07/07/24 02/08/25 Rx furosemide 40 mg tablet 40 mg PO QDAY diuretic 11/0702/09/25 History ferrous gluconate 324 mg (38 mg 324 mg PO TID #90 tabs 11/10/24 02/08/25 Rx iron) tablet famotidine 40 mg tablet 40 mg PO QHS #30 tabs 02/08/25 Rx omeprazole 40 mg capsule,delayed 40 mg PO BID #60 caps 11/21/24 02/08/25 Rx release cholestyramine 4 gram oral powder 4 g PO DAILY 5 02/08/25 History for suspension in a packet (Prevalite) levothyroxine 137 mcg tablet 137 mcg PO DAILY 02/09/25 02/08/25 History (Synthroid) Allergy/AdvReac Type Severity Reaction Status Date / Time adhesive tape Allergy Rash Verified 02/09/25 12:03 Family History Father Colon cancer Brother Cancer bladder Surgical History History of thoracentesis Hx of colonoscopy History of esophagogastroduodenoscopy (EGD) S/P shoulder surgery S/P hysterectomy History of lobectomy of thyroid Social History Smoking Status: Former smoker alcohol intake: current alcohol intake frequency: holidays/special occasions only ROS ROS Narrative All review of systems were negative except as mentioned above in the history of present illness and the other review of systems. Vital Signs Vital Signs Vital Signs: 02/09/25 12:02 02/09/25 12:13 02/09/25 13:26 Temperature 36.6 C 36.8 C Temperature Source Oral Oral Pulse Rate 106 H 81 Pulse Rate [Lying] 104 H Pulse Rate [Sitting (for 1 minute prior to obtaining)] 105 H Pulse Rate [Standing (for 1 minute prior to obtaining)] 109 H Respiratory Rate 16 17 Blood Pressure 128/68 H 122/47 H Blood Pressure [Lying] 110/50 L Blood Pressure [Sitting (for 1 minute prior to obtaining)] 121/43 H Blood Pressure [Standing (for 1 minute prior to obtaining)] 111/50 L Blood Pressure Mean 88 72 Blood Pressure Mean [Lying] 70 Blood Pressure Mean [Sitting (for 1 minute prior to obtaining)] 69 Blood Pressure Mean [Standing (for 1 minute prior to obtaining)] 70 Pulse Ox 100 100 Oxygen Delivery Method Room Air Room Air 02/09/25 14:00 Temperature Temperature Source Pulse Rate 100 Pulse Rate [Lying] Pulse Rate [Sitting (for 1 minute prior to obtaining)] Pulse Rate [Standing (for 1 minute prior to obtaining)] Respiratory Rate Blood Pressure 110/55 L Blood Pressure [Lying] Blood Pressure [Sitting (for 1 minute prior to obtaining)] Blood Pressure [Standing (for 1 minute prior to obtaining)] Blood Pressure Mean 73 Blood Pressure Mean [Lying] Blood Pressure Mean [Sitting (for 1 minute prior to obtaining)] Blood Pressure Mean [Standing (for 1 minute prior to obtaining)] Pulse Ox 98 Oxygen Delivery Method Weight Weight: 88.4 kg Body Mass Index (BMI) 33.4 Physical Exam Narrative - Physical Exam General: Alert, Oriented x3, Cooperative. Up in bed. Nontoxic. Pleasant. HEENT: Atraumatic, PERRLA, EOMI, Normocephalic Oral: Moist Mucosa, No Gingival or Mucosal Lesions/ Ulcerations Neck: Supple, No JVD, Negative Carotid Bruits Lungs: Clear to auscultation, Normal air movement Cardiovascular: Regular rate, Normal S1, Normal S2, No murmurs Abdomen: Bowel Sounds Present, Soft, Non Tender, Non-Distended, No Hepato- splenomegaly Extremities: No clubbing, No cyanosis, No edema, Capillary Refill Less than 3 Seconds Skin: No rashes, No breakdown Musculoskeletal: No Tenderness to Palpation of Joints or Extremities Neurological: Neuro grossly intact Psych/Mental Status: Normal Affect, Appropriate Results Lab / Micro Data Attestation: I reviewed the patient's lab results. 02/09/25 12:11 02/09/25 12:11 Labs: Laboratory Results - last 24 hr 02/09/25 12:11: WBC 6.7, RBC 2.14 L, Hgb 5.2 L*, Hct 17.5 L, MCV 81.8, MCH 24.3 L, MCHC 29.7 L, RDW Std Deviation 52.7 H, RDW Coeff of Cornelio 17.8 H, Plt Count 183, MPV 11.3, Immature Gran % (Auto) 0.300, Neut % (Auto) 72.5 H, Lymph % (Auto) 16.5 L, [place] % (Auto) 9.1, Eos % (Auto) 1.5, Baso % (Auto) 0.1, Absolute Neuts (auto) 4.9, Absolute Lymphs (auto) 1.11, Nucleated RBC % 0, Sodium 137, Potassium 3.8, Chloride 105, Carbon Dioxide 17.0 L, Anion Gap 14, BUN 24 H, Creatinine 1.10, Estim Creat Clear Calc 50.49, Est GFR (MDRD) Non-Af 54 L, B UN/Creatinine Ratio 21.7 H, Glucose 203 H, Calcium 9.4, Total Bilirubin 0.85, AST 20, ALT 13, Alkaline Phosphatase 166 H, Total Protein 5.4 L, Albumin 3.4, G lobulin 2.1 L, Albumin/Globulin Ratio 1.6, Blood Type A POSITIVE, Antibody Screen POSITIVE, Antibody Identification ANTI-E 02/09/25 12:56: PT 15.5 H, INR 1.2, APTT 24.8 Rhythm Strip Rhythm Strip: Sinus Tach Rate: 102 Ectopy: None Assessment & Plan Assessment/Plan (1) Acute upper gastrointestinal bleeding: PLAN: Suspected given the patient's previous findings with varices in her esophagus and portal gastropathy. Will put the patient on IV PPI for now and hold her home dose of omeprazole. GI consult with tentative plan for upper endoscopy on the . (2) ABLA (acute blood loss anemia): PLAN: Secondary to GI bleed. Hemoglobin was 5.2. Patient ordered 2 units of packed cells in the emergency room. Will transfuse and monitor hemoglobin serially. PLAN: Plan Chronic conditions * Cirrhosis: Continue with propranolol, furosemide and spironolactone * Hypothyroidism: Continue with levothyroxine VTE prophylaxis with SCDs is chemical prophylaxis contraindicated in light of the anemia. CODE STATUS: Addressed with the patient. Patient wished to be DNR Comfort Care arrest and is okay with short-term intubation. Charges/Coding Visit Charges Inpatient E&M: 58402 Init Hosp L2
--- NOTE | 2025-02-09 16:49 | CASEMGMT ---
Care Management Face to Face with patient for initial transition planning/care coordination assessment in the ED.? This television writer introduced self and role at [facility]. Patient alert and oriented. Patient willing to participate in assessment and is able to answer all questions appropriately.? Care providers, pharmacy, and demographics verified. ?Patient?s sisterFrancheska also present which patient consented to. Admitting Diagnosis: Acute blood loss anemia . Other diagnosis history: Non-Alcoholic Cirrhosis, DM, Iron Deficiency Anemia, Thyroid disease, HTN, Sleep Apnea, and Diverticulitis. PCP: Dr. Locke Specialists: Oncology: Dr. Eaton and Dr. Hernandez (surgeon). Senior Net Software Developer: Dr. Nash. Preferred Pharmacy: [email or web address] Insurance: [place] Prescription Benefit: Yes Living Will/HPOA: ?HCPOA completed LNOK:? LNOK is patient?s sisterFrancheska Living Arrangements: Lives alone in apartment. Reports to being independent with ADLS and IADLs, does state some difficulty keeping up with cleaning when not feeling well. Transportation: Patient drives. DME: Grab bar in shower, shower chair and HHS. HHC: None historically.? Patient?s sister still works but helps regularly.? SNF/Rehab: Patient denied any history of SNF or Rehab admissions. Community Resources: None at this time and no needs at this time. Behavioral Health History: Depression and anxiety, is on medications Patient goals: Patient wishes to discharge home, denies need for home health care at this time due to patient?s sister helping. Patient?s sister did speak up and say it?s been getting harder so it may be helpful to re-visit the need for HHC prior to discharge. ?Patient denies any further needs or concerns at this time. Disposition Plan: admission to acute; RN CM/SW to follow for discharge planning needs that may arise. Britany Lopez, GENERAL EDUCATION INSTRUCTOR, INGREDIENT SPECIALIST
[2025-02-09 17:40] LABS: Hematocrit 18.2 % (37-47); POSITIVE COUNT YES
--- NOTE | 2025-02-09 17:45 | EX.PCM.CON.G ---
HPI Consult Data Date of Consult: 02/09/25 HPI Narrative Reason for Consultation: Anemia HPI Narrative: JANETTE MENESES, is a 70-year-old female who is known to the GI service secondary to history of Hilario cirrhosis complicated by history of ascites status post paracentesis, upper GI bleed portal gastropathy intermittent jaundice, pancytopenia. She recently underwent video capsule endoscopy to look for duodenal varices and any other sign of GI bleeding secondary to persistent anemia. No signs of acute GI bleed were seen. She comes to the hospital today with complaints of black tarry stools for the last 3 to 4 days, feeling weak and lightheaded. She is also seen bright red blood. She denies any nausea or vomiting. She has a history of known varices. Taking no anticoagulants. She states she feels like she probably needs another blood transfusion. 02/09/25 12:11: WBC 6.7, RBC 2.14 L, Hgb 5.2 L*, Hct 17.5 L, MCV 81.8, MCH 24.3 L, MCHC 29.7 L, RDW Std Deviation 52.7 H, RDW Coeff of Cornelio 17.8 H, Plt Count 183, MPV 11.3, Immature Gran % (Auto) 0.300, Neut % (Auto) 72.5 H, Lymph % (Auto) 16.5 L, Wilkinson % (Auto) 9.1, Eos % (Auto) 1.5, Baso % (Auto) 0.1, Absolute Neuts (auto) 4.9, Absolute Lymphs (auto) 1.11, Nucleated RBC % 0, Sodium 137, Potassium 3.8, Chloride 105, Carbon Dioxide 17.0 L, Anion Gap 14, BUN 24 H, Creatinine 1.10, Estim Creat Clear Calc 50.49, Est GFR (MDRD) Non-Af 54 L, BUN/Creatinine Ratio 21.7 H, Glucose 203 H, Calcium 9.4, Total Bilirubin 0.85, AST 20, ALT 13, Alkaline Phosphatase 166 H, Total Protein 5.4 L, Albumin 3.4, Globulin 2.1 L, Albumin/Globulin Ratio 1.6, Blood Type A POSITIVE, Antibody Screen POSITIVE, Antibody Identification ANTI-E, Crossmatch See Detail 02/09/25 12:56: PT 15.5 H, INR 1.2, APTT 24.8 Her current MELD is 12 and she has a child Reich class B [facility] Medical History Ascites Cirrhosis Iron deficiency anemia Lung nodule Hemorrhoids History of diabetes mellitus History of cirrhosis Anemia Pleural effusion on left Exertional dyspnea Chest pain Wears contact lenses Wears glasses Post-menopausal Anxiety Alcohol use Thyroid disease History of renal disease Anemia Back pain History of diverticulitis Gastric reflux Former smoker Sleep apnea Chronic cough S/p nephrectomy Depression Migraines HTN (hypertension) Diabetes Home Medications ?Medication ?Instructions ?Recorded ?Last Taken ?Type duloxetine 60 mg capsule,delayed 60 mg PO DAILY mental health 11/06/17 02/08/25 History release ergocalciferol (vitamin D2) 1,250 50,000 unit PO SA vitamin 11/06/17 02/06/25 History mcg (50,000 unit) capsule albuterol sulfate 90 mcg/actuation 1 - 2 puff inhalation PRN PRN 02/20/23 03/16/24 History aerosol inhaler ALLERGIES dulaglutide 0.75 mg/0.5 mL 0.75 mg subcut SA diabetes 10/10/23 02/06/25 History subcutaneous pen injector (Trulicity) cyanocobalamin (vitamin B-12) 1,000 mcg PO DAILY vitamin 02/13/24 02/08/25 History 1,000 mcg capsule fexofenadine 180 mg tablet 180 mg PO DAILY allergies 03/03/24 02/08/25 History (Aaliyah Allergy) propranolol 10 mg tablet 10 mg PO TID blood pressure 30 04/02/24 02/08/25 Rx days #90 tabs spironolactone 50 mg tablet 50 mg PO BID diuretic #30 tabs 07/07/24 02/08/25 Rx furosemide 40 mg tablet 40 mg PO QDAY diuretic 11/07/24 02/09/25 History ferrous gluconate 324 mg (38 mg 324 mg PO TID #90 tabs 11/10/24 02/08/25 Rx iron) tablet famotidine 40 mg tablet 40 mg PO QHS #30 tabs 11/21/24 02/08/25 Rx omeprazole 40 mg capsule,delayed 40 mg PO BID #60 caps 11/21/24 02/08/25 Rx release cholestyramine 4 gram oral powder 4 g PO DAILY 02/09/25 02/08/25 History for suspension in a packet (Prevalite) levothyroxine 137 mcg tablet 137 mcg PO DAILY 02/09/25 02/08/25 History (Synthroid) Allergy/AdvReac Type Severity Reaction Status Date / Time adhesive tape Allergy Rash Verified 02/09/25 12:03 Family History Father Colon cancer Brother Cancer bladder Surgical History History of thoracentesis Hx of colonoscopy History of esophagogastroduodenoscopy (EGD) S/P shoulder surgery S/P hysterectomy History of lobectomy of thyroid Social History Smoking Status: Former smoker alcohol intake: current alcohol intake frequency: holidays/special occasions only ROS Constitutional Constitutional: Denies fatigue, fever(s), poor appetite, weight gain or weight loss Gastrointestinal Gastrointestinal: Denies belching, bloating, change in bowel habits, change in stool character, chewing difficulty, coffee ground emesis, constipation, cramping, diarrhea, dyspepsia, dysphagia, early satiety, excessive flatus, fecal incontinence, heartburn, hematemesis, hematochezia, hemorrhoids, loose stools, melena, nausea, odynophagia, rectal bleeding, tenesmus, vomiting or weight changes Physical Exam Const alert, oriented x3, no apparent distress and healthy appearing General Appearance: cooperative GI normal to inspection, nondistended, normoactive bowel sounds, soft to palpation, non-tender and non-distended Percussion: normal to percussion Rectal Exam: deferred Lab / Micro Data 02/09/25 12:11 02/09/25 12:11 Labs: Laboratory Results - last 24 hr 02/09/25 12:11: WBC 6.7, RBC 2.14 L, Hgb 5.2 L*, Hct 17.5 L, MCV 81.8, MCH 24.3 L, MCHC 29.7 L, RDW Std Deviation 52.7 H, RDW Coeff of Cornelio 17.8 H, Plt Count 183, MPV 11.3, Immature Gran % (Auto) 0.300, Neut % (Auto) 72.5 H, Lymph % (Auto) 16.5 L, Wilkinson % (Auto) 9.1, Eos % (Auto) 1.5, Baso % (Auto) 0.1, Absolute Neuts (auto) 4.9, Absolute Lymphs (auto) 1.11, Nucleated RBC % 0, Sodium 137, Potassium 3.8, Chloride 105, Carbon Dioxide 17.0 L, Anion Gap 14, BUN 24 H, Creatinine 1.10, Estim Creat Clear Calc 50.49, Est GFR (MDRD) Non-Af 54 L, BUN/Creatinine Ratio 21.7 H, Glucose 203 H, Calcium 9.4, Total Bilirubin 0.85, AST 20, ALT 13, Alkaline Phosphatase 166 H, Total Protein 5.4 L, Albumin 3.4, Globulin 2.1 L, Albumin/Globulin Ratio 1.6, Blood Type A POSITIVE, Antibody Screen POSITIVE, Antibody Identification ANTI-E, Crossmatch See Detail 02/09/25 12:56: PT 15.5 H, INR 1.2, APTT 24.8 Rhythm Strip Rhythm Strip: Sinus Tach Rate: 102 Ectopy: None Assessment & Plan Assessment/Plan (1) Pleural effusion on left: PLAN: Plan 69-year-old female with history of MAFLD associated cirrhosis, type 2 diabetes, presents to the ED with concerns regarding worsening shortness of breath and fatigue. She was discovered to have significant anemia with a hemoglobin of 5.6 Metabolic associated fatty liver disease with cirrhosis: -Child Reich score A, MELD-NA: 10 -Compensated cirrhosis with complications of portal hypertension -She will need egd for to look for signs of GI blood loss Acute on chronic anemia Severe anemia -Combination of iron deficiency anemia with pancytopenia due to splenomegaly -Transfuse 1 unit of blood PRBC to maintain Hgb greater than 7 -INR is 1.2, no underlying coagulopathy Charges/Coding Visit Charges Inpatient E&M: 93006 Init Hosp L3
[2025-02-09 17:54] LABS: Hemoglobin 5.2 g/dL (12.0-15.0)
[2025-02-09] MEDS: Pantoprazole Sodium 40 MG in 0.9% Normal Saline (100mL MB+) 100 ML 330 MG IV (21:12)
[2025-02-09] MEDS: Ferrous Gluconate 324 MG Tablet PO (21:17)
[2025-02-10] VITALS (20 sets, daily range): BP systolic 90–128; BP diastolic 47–74; PULSE 85–110; RESP 15–18; TEMP 36.6–37.8; O2SAT 93–99
[2025-02-10 03:54] LABS: Absolute Lymphocyte Count 1.07 X10^3/uL (0.83-4.51); Absolute Neutrophil Count 2.5 X10^3/uL (2.0-7.7); Basophil# 0.02 X10^3/uL; Basophil% 0.5 % (0-1); Eosinophil# 0.14 X10^3/uL; Eosinophils% 3.3 % (0-5); Hematocrit 19.4 % (37-47); Hemoglobin 6.1 g/dL (12.0-15.0); Lymphocyte # 1.07 X10^3/ul (0.83-4.51); Lymphocyte % 25.6 % (19-41); Mean Corp Hgb Conc 31.4 g/dL (32-36); Mean Corpuscular Hgb 26.2 pg (27.0-32.0); Mean Corpuscular Volume 83.3 fL (81-99); Mean Platelet Vol. 10.5 fl (6.2-12.0); Monocyte# 0.47 X10^3/uL; Monocyte% 11.2 % (0-10); NRBC Flagged by Analyzer 0.7 % (0-5); Neutrophil # 2.47 X10^3/uL (2.7-7.7); Neutrophil % 59.2 % (47-70); Platelet Count 103 K/mm3 (150-450); RBC Distribution Width CV 16.1 % (11.6-14.6); RBC Distribution Width SD 48.9 fl (35.1-43.9); Red Blood Count 2.33 M/mm3 (4.2-5.4); White Blood Count 4.2 K/mm3 (4.4-11.0)
[2025-02-10 04:12] LABS: International Normalized Ratio 1.2; Prothrombin Time (Protime)PT. 15.8 SECONDS (11.7-14.9)
[2025-02-10 04:18] LABS: Phosphorus 2.5 mg/dL (2.7-4.5)
[2025-02-10 04:20] LABS: ALB/GLOB Ratio 1.7 RATIO (0.9-2.4); AST(SGOT) 16 U/L (<=31); Alanine Aminotransfer ALT/SGPT 11 U/L (<=34); Alkaline Phosphatase 141 U/L (35-104); Anion Gap 8 (5-15); BUN 24 mg/dL (4-19); BUN/Creat Ratio 24.7 RATIO (10-20); Bilirubin, Direct 0.91 mg/dL (0.00-0.30); Calcium,Total 8.5 mg/dL (7.6-11.0); Carbon Dioxide 20.3 mmol/L (21.0-32.0); Chloride 111 mmol/L (98-108); Creatinine, Serum 0.98 mg/dL (0.70-1.20); EST Glomerular Filtration Rate 62 (>60); Estimated Creatinine Clearance 55.84 ml/min (50-250); Globulin 1.7 g/dL (2.2-4.2); Glucose 196 mg/dL (70-99); Potassium 4.4 mmol/L (3.3-5.1); Protein, Total 4.7 g/dL (5.9-8.4); Sodium Level 139 mmol/L (133-145); Total Bilirubin 2.67 mg/dL (0.00-1.30)
[2025-02-10 04:54] LABS: Hemoglobin A1c 6.7 % (<=5.6)
[2025-02-10] MEDS: Pantoprazole Sodium 40 MG in 0.9% Normal Saline (100mL MB+) 100 ML 330 MG IV ×2 (09:54→20:16)
--- NOTE | 2025-02-10 10:04 | CASEMGMT ---
THA met with patient as she indicated in admission questions she needed assistance with utilities. THA introduced self and role at [facility]. Patient denied needing assistance with utilities. Patient thanked THA for checking in with her. Sonya NEWTON
[2025-02-10 10:06] LABS: Hematocrit 20.4 % (37-47); Hemoglobin 6.3 g/dL (12.0-15.0)
--- NOTE | 2025-02-10 14:07 | PRE.ANES_ITS ---
ASA Classification* ASA Classification ASA Classification: 3 and E Assessment & Plan Anesthesia* Anesthesia Assessment Anesthesia Assessment: Discussed sedation and/or anesthesia options, risks, benefits, and alternatives with patient/parents/legal guardian/POA. Questions invited. The patient/parents/legal guardian/POA seems to understand and agrees to proceed with anesthesia plan. Reviewed the physical assessment, medical history, allergy history and patient home medications list prior to surgery/procedure/anesthetic and documented any changes. Performed airway and anesthesia risk assessments. Anesthesia Type Anesthesia Type: MAC History Source History Obtained from:: Patient and Chart Anesthesia Focused Assessment* Temperature: 99.2 F Pulse Rate: 101 Blood Pressure: 96/66 Respiratory Rate: 17 Pulse Ox: 98 Oxygen Delivery Method: Room Air Airway Assessment Mouth opens: >3 cm Mallampati Score: I Teeth Condition: Chipped/Broken (Patient has a chipped tooth #8.) Neck Range of motion (ROM): Full ROM Focused Labs Anesthesia Preop lab: CBC WBC 4.2 K/mm3 (4.4-11.0) L 02/10/25 03:40 02/10/25 RBC 2.33 M/mm3 (4.2-5.4) L 02/10/25 03:40 02/10/25 Hgb 6.3 g/dL (12.0-15.0) L 02/10/25 09:42 02/10/25 Hct 20.4 % (37-47) L 02/10/25 09:42 02/10/25 Plt Count 103 K/mm3 (150-450) L 02/10/25 03:40 02/10/25 CHEMISTRY Potassium 4.4 mmol/L (3.3-5.1) 02/10/25 03:40 02/10/25 Sodium 139 mmol/L (133-145) 02/10/25 03:40 02/10/25 Magnesium 2.0 mg/dL (1.5-2.2) 02/10/25 03:40 02/10/25 Phosphorus 2.5 mg/dL (2.7-4.5) L 02/10/25 03:40 02/10/25 BUN 24 mg/dL (4-19) H 02/10/25 03:40 02/10/25 Creatinine 0.98 mg/dL (0.70-1.20) 02/10/25 03:40 02/10/25 Glucose 196 mg/dL (70-99) H 02/10/25 03:40 02/10/25 POC Glucose 159 mg/dL (74-106) H 11/10/24 11:33 11/10/24 TSH 2.420 uIU/mL (0.358-3.740) 11/08/24 05:27 10/18 12/08 COAG PT 15.8 SECONDS (11.7-14.9) H 02/10/25 03:40 01/15 05/10 Pre-Assessment Diagnosis/Proposed Procedure Planned Operative Procedure(s): Esophagogastroduodenoscopy. 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 When Was Last Pacemaker Check QUESTION #4 FULL TEXT: You/Your Family Experience fever (hyperthermia) with Anesthesia Last Oral Intake Last Oral intake: Last Oral Intake NPO since 00:01 02/10/25 11:13 Meds taken in AM with sips of No 02/10/25 11:13 water? Meds patient instructed to take am of surgery PONV PONV - radiological metallurgist: PONV - radiological metallurgist Female HX of Motion Sickness HX of N/V After Surgery Non-Smoker Duration of Surgery greater than 60 minutes Number of Risk Factors PONV Score Height & Weight Height & Weight: Anesthesia: Height & Weight Height 5 ft 4 in 02/10/25 11:13 Weight: 85.9 kg 02/09/25 16:59 Body Mass Index (BMI) 32.5 02/09/25 16:59 Respiratory Assessment Respiratory Assessment - radiological metallurgist: Respiratory Tract Infection Hx - radiological metallurgist Hx Respiratory Tract Infection No 02/09/25 20:05 STOP Sleep Apnea STOP Sleep Apnea - radiological metallurgist: STOP Sleep Apnea - radiological metallurgist Hx Hypertension Yes 02/09/25 16:59 Hx Sleep Apnea Yes 02/09/25 16:59 CPAP No 02/09/25 16:59 BIPAP No 02/09/25 16:59 Do you snore loudly (louder than talking or can be heard Do you often feel tired/ fatigued/ sleepy during daytime? Has anyone observed you stop breathing during sleep? STOP Results Positive 02/09/25 16:59 QUESTION #5 FULL TEXT : Do you snore loudly (louder than talking or can be heard through closed doors)? 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 Specify any problems Hx of Preganancy in last 3 No 02/09/25 16:59 Months Nurse Filling Out Transfusion [email or web address] 02/09/25 16:59 & Questions: Date: 02/09/25 02/09/25 16:59 Time: 17:04 02/09/25 16:59 Patient unable to answer at this time (ie. confused, unrespo /Reproduction History /Reproductive History - radiological metallurgist: /Reproductive Hx- radiological metallurgist Hx Now Gestational Age (in weeks): EDC: Hx Hx Para Hx Section SAB No 11/09/24 05:49 Active Medications Active Medications: Current Medications Generic Name Dose Route Start Last Admin Trade Name Freq PRN Reason Stop Dose Admin Albuterol Sulfate 2.5 mg 02/09/25 17:08 Albuterol 2.5 Mg/3 Ml Vial.Neb. INHALATION Q4H PRN ALLERGIES Cholestyramine Resin 4 gm 02/10/25 10:00 Cholestyramine/Sucrose 4 Gm/Packet PO DAILY [facility] Cyanocobalamin 1,000 mcg 02/10/25 10:00 Cyanocobalamin 500 Mcg Tablet PO DAILY [facility] Duloxetine HCl 60 mg 02/10/25 10:00 Duloxetine Hcl 60 Mg Capsule PO DAILY [facility] Ferrous Gluconate 324 mg 02/09/25 22:00 02/10/25 09:55 Ferrous Gluconate 324 Mg Tablet PO Not Given TIDCM AMANDEEP Furosemide 40 mg 02/10/25 10:00 Furosemide 40 Mg Tablet PO DAILY [facility] Protocol Pantoprazole Sodium 40 mg/ 100 mls @ 330 mls/hr 02/09/25 22:00 02/10/25 10:15 Sodium Chloride IV Infused Q12 AMANDEEP Infusion Sodium Chloride 250 mls @ 15 mls/hr 02/09/25 17:07 IV .[id number] PRN Additional IVPB Infusion Sodium Chloride 250 mls @ 15 mls/hr 02/09/25 17:07 IV .[id number] PRN Saline Flush Levothyroxine Sodium 137 mcg 02/10/25 06:00 02/10/25 06:21 Levothyroxine 137 Mcg Tablet PO Not Given DAILY@0600 [facility] Loratadine 10 mg 02/10/25 10:00 Loratadine 10 Mg Tablet PO DAILY [facility] Ondansetron HCl 4 mg 02/09/25 16:59 Ondansetron 4 Mg/2 Ml Vial IV Q8H PRN PRN NAUSEA/VOMITING Propranolol HCl 10 mg 02/09/25 22:00 02/10/25 06:23 Propranolol 10 Mg Tablet PO Not Given TID [facility] Protocol Sodium Chloride 10 - 40 ml 02/09/25 17:07 0.9% Saline Lock 10 Ml Syringe IV UD PRN SALINE FLUSH Spironolactone 50 mg 02/09/25 22:00 02/10/25 09:56 Spironolactone 50 Mg Tablet PO Not Given BID [facility] Protocol PFSH Medical History Ascites Cirrhosis Iron deficiency anemia Lung nodule Hemorrhoids History of diabetes mellitus History of cirrhosis Anemia Pleural effusion on left Exertional dyspnea Chest pain Wears contact lenses Wears glasses Post-menopausal Anxiety Alcohol use Thyroid disease History of renal disease Anemia Back pain History of diverticulitis Gastric reflux Former smoker Sleep apnea Chronic cough S/p nephrectomy Depression Migraines HTN (hypertension) Diabetes Home Medications ?Medication ?Instructions ?Recorded ?Last Taken ?Type duloxetine 60 mg capsule,delayed 60 mg PO DAILY mental health 11/06/17 02/08/25 History release ergocalciferol (vitamin D2) 1,250 50,000 unit PO SA vi tamin 11/06/17 02/06/25 History mcg (50,000 unit) capsule albuterol sulfate 90 mcg/actuation 1 - 2 puff inhalati on PRN PRN 02/20/23 03/16/24 History aerosol inhaler ALLERGIES dulaglutide 0.75 mg/0.5 mL 0.75 mg subcut SA diabetes 10/10/23 02/06/25 History subcutaneous pen injector (Trulicity) cyanocobalamin (vitamin B-12) 1,000 mcg PO DAILY vitam in 02/13/24 02/08/25 History 1,000 mcg capsule fexofenadine 180 mg tablet 180 mg PO DAILY allergies 0 03/03/24 02/08/25 History (Aaliyah Allergy) propranolol 10 mg tablet 10 mg PO TID blood pressure 30 04/02/24 02/08/25 Rx days #90 tabs spironolactone 50 mg tablet 50 mg PO BID diuretic #30 tabs 07/07/24 02/08/25 Rx furosemide 40 mg tablet 40 mg PO QDAY diuretic 11/0702/09/25 History ferrous gluconate 324 mg (38 mg 324 mg PO TID #90 tabs 11/10/24 02/08/25 Rx iron) tablet famotidine 40 mg tablet 40 mg PO QHS #30 tabs 02/08/25 Rx omeprazole 40 mg capsule,delayed 40 mg PO BID #60 caps 11/21/24 02/08/25 Rx release cholestyramine 4 gram oral powder 4 g PO DAILY 5 02/08/25 History for suspension in a packet (Prevalite) levothyroxine 137 mcg tablet 137 mcg PO DAILY 02/09/25 02/08/25 History (Synthroid) Allergy/AdvReac Type Severity Reaction Status Date / Time adhesive tape Allergy Rash Verified 02/09/25 12:03 Family History Father Colon cancer Brother Cancer bladder Surgical History History of thoracentesis Hx of colonoscopy History of esophagogastroduodenoscopy (EGD) S/P shoulder surgery S/P hysterectomy History of lobectomy of thyroid Social History Smoking Status: Former smoker alcohol intake: current alcohol intake frequency: holidays/special occasions only Review of Systems (Anesthesia) ROS Narrative System reviewed and no additional complaints, except as documented.
--- NOTE | 2025-02-10 14:30 | PCM.PROGNOTE ---
Subjective Subjective Patient seen and examined. She was admitted with a complaint of melena stools and concern for GI bleed as well as acute on chronic anemia. She still complains of some melena stools overnight and this morning. She denies any abdominal pain. Review of systems is otherwise negative. Objective Data Objective Data Vital Signs: Vital Signs Temp Pulse Resp BP Pulse Ox O2 Del Method 99.2 F H 101 H 17 96/66 98 Room Air 02/10/25 14:10 02/10/25 14:10 02/10/25 14:10 02/10/25 14:10 02/10/25 14:10 02/10/25 14:15 Oxygen Delivery Method Room Air Weight: 189 lb 6.033 oz Body Mass Index (BMI) 32.5 Intake & Output: Intake and Output for Last 24 Hours 02/08/25 02/09/25 02/10/25 23:59 23:59 23:59 Intake Total 860 / 860 900 / 900 Output Total 0 / 0 Balance 860 / 860 900 / 900 Lab / Micro Data 02/10/25 09:42 02/10/25 03:40 Labs: Laboratory Results - last 24 hr 02/09/25 12:11: Antibody Screen POSITIVE, Antibody Identification ANTI-E, Crossmatch See Detail 02/09/25 12:11: Crossmatch See Detail 02/09/25 17:25: Hgb 5.2 L*, Hct 18.2 L 02/10/25 03:40: WBC 4.2 L, RBC 2.33 L, Hgb 6.1 L, Hct 19.4 L, MCV 83.3, MCH 26.2 L, MCHC 31.4 L D, RDW Std Deviation 48.9 H, RDW Coeff of Cornelio 16.1 H, Plt Count 103 L, MPV 10.5, Immature Gran % (Auto) 0.200, Neut % (Auto) 59.2, Lymph % (Auto) 25.6, Power % (Auto) 11.2 H, Eos % (Auto) 3.3, Baso % (Auto) 0.5, Absolute Neuts (auto) 2.5, Absolute Lymphs (auto) 1.07, Nucleated RBC % 0.7, PT 15.8 H, INR 1.2, APTT 26.0, Sodium 139, Potassium 4.4, Chloride 111 H, Carbon Dioxide 20.3 L, Anion Gap 8, BUN 24 H, Creatinine 0.98, Estim Creat Clear Calc 55.84, Est GFR (MDRD) Non-Af 62, BUN/Creatinine Ratio 24.7 H, Glucose 196 H, Hemoglobin A1c 6.7 H, Calcium 8.5, Phosphorus 2.5 L, Magnesium 2.0, Total Bilirubin 2.67 H, Direct Bilirubin 0.91 H, AST 16, ALT 11, Alkaline Phosphatase 141 H, Total Protein 4.7 L, Albumin 3.0 L, Globulin 1.7 L, Albumin/Globulin Ratio 1.7 02/10/25 09:42: Hgb 6.3 L, Hct 20.4 L Rhythm Strip Rhythm Strip: Sinus Tach Rate: 102 Ectopy: None Physical Exam Const alert, oriented x3, no apparent distress and well nourished General Appearance: cooperative HEENT normocephalic, head/scalp atraumatic, moist oral mucous membranes, oropharynx normal and gingiva normal Eyes PERRL and EOMs intact bilaterally Neck no lymphadenopathy and supple Lymph Lymphatic: no lymphedema noted Resp normal respiratory effort, normal air movement and clear to auscultation bilaterally Cardio regular rate, regular rhythm, S1 normal heart sound, S2 normal heart sound and no murmurs GI normal to inspection, nondistended, normoactive bowel sounds, soft to palpation, non-tender and non-distended Extremity normal capillary refill, no clubbing, cyanosis or edema and no calf tenderness General Extremity: no tenderness to palpation of joints or extremities Skin General Skin Exam: no breakdown Neuro no focal motor deficits and no sensory deficits noted Motor Exam: strength 5/5 throughout Psych thought process normal, cooperative and affect normal Appearance: appropriate Assessment & Plan Assessment/Plan (1) ABLA (acute blood loss anemia): (2) Acute upper gastrointestinal bleeding: PLAN: Plan #Acute on chronic anemia due ot acute Gi bleed has a history of esophageal varices and portal gastropathy in the setting of cirrhosis Hb was 5.2 on admission and after 2 units of PRBCs, was 6.1 today. Will transfuse with 2 units of PRBCs. currently NPO GI on board. For EGD today monitor Hb and transfuse to maintain Hb >7 Her last EGD was on 11/09/2024 which showed grade 2 esophageal varices and portal hypertensive gastropathy #Chronic liver cirrhosis: on propranolol, furosemide and spironolactone. GI on board #Hypothyroidism: on synthorid DVT prophylaxis: SCDs. No anticoagulation due to GI bleed Charges/Coding Visit Charges Inpatient E&M: 68313 [facility] Hosp L3
--- NOTE | 2025-02-10 15:09 | PCM.PN.BLA ---
Progress Note The patient has been n.p.o. for upper endoscopy. All questions concerns answered prior to procedure. Physical Exam Const alert, oriented x3, no apparent distress and well nourished General Appearance: cooperative HEENT normocephalic, head/scalp atraumatic, moist oral mucous membranes, oropharynx normal and gingiva normal Eyes PERRL and EOMs intact bilaterally Neck no lymphadenopathy and supple Lymph Lymphatic: no lymphedema noted Resp normal respiratory effort, normal air movement and clear to auscultation bilaterally Cardio regular rate, regular rhythm, S1 normal heart sound, S2 normal heart sound and no murmurs GI normal to inspection, nondistended, normoactive bowel sounds, soft to palpation, non-tender and non-distended Extremity normal capillary refill, no clubbing, cyanosis or edema and no calf tenderness General Extremity: no tenderness to palpation of joints or extremities Skin General Skin Exam: no breakdown Neuro no focal motor deficits and no sensory deficits noted Motor Exam: strength 5/5 throughout Psych thought process normal, cooperative and affect normal Appearance: appropriate Assessment & Plan Assessment/Plan (1) Pleural effusion on left: PLAN: Plan 69-year-old female with history of MAFLD associated cirrhosis, type 2 diabetes, presents to the ED with concerns regarding worsening shortness of breath and fatigue. She was discovered to have significant anemia with a hemoglobin of 5.6 Metabolic associated fatty liver disease with cirrhosis: -Child Reich score A, MELD-NA: 10 -Compensated cirrhosis with complications of portal hypertension -She will need egd for to look for signs of GI blood loss Acute on chronic anemia Severe anemia -Combination of iron deficiency anemia with pancytopenia due to splenomegaly -Transfuse 1 unit of blood PRBC to maintain Hgb greater than 7 -INR is 1.2, no underlying coagulopathy 02/10/2025-further recommendations to follow after patient undergoes an upper endoscopy. Thank you
--- NOTE | 2025-02-10 15:47 | PCM.POST.ANE ---
Anesthesia: Postop Eval I Current Vital Signs Temperature: 97.9 F Pulse Rate: 109 Blood Pressure: 90/49 Respiratory Rate: 18 Pulse Ox: 96 Oxygen Delivery Method: Room Air Assessment Airway patent: Yes Spontaneous unlabored respirations: Yes Mental status: Awake nausea: No Vomiting: No Anesthesia Complication: No Fluid Hydration Crystalloid volume administer (ml): 200 Total IV fluid infused: 200 Progress Note Anesthesia document: Postop Eval 1 completed: Yes
--- NOTE | 2025-02-10 15:55 | OP.EGD_ITS ---
Patient Name: Barbara Ledesma Procedure Date: 02/10/2025 3:11 PM Date of : 1955 Age: 70 Procedure: Upper GI endoscopy Indications: Acute post hemorrhagic anemia, Melena, Recent gastrointestinal bleeding, Suspected upper gastrointestinal bleeding, Esophageal varices, For therapy of esophageal varices Providers: Ronald Nash DO Referring MD: Kwasi Nieves DO Medicines: Monitored Anesthesia Care Patient Profile: This is a 70 year old female. Refer to note in patient chart for documentation of history and physical. Patient has symptoms of acute epigastric abdominal pain, acute dyspepsia and acute nausea. Complications: No immediate complications. Procedure: Pre-Anesthesia Assessment: - Prior to the procedure, a History and Physical was performed, and patient medications and allergies were reviewed. The patient is competent. The risks and benefits of the procedure and the sedation options and risks were discussed with the patient. All questions were answered and informed consent was obtained. Patient identification and proposed procedure were verified by the physician in the pre-procedure area. Mental Status Examination: alert and oriented. Airway Examination: normal oropharyngeal airway and neck mobility. Respiratory Examination: clear to auscultation. CV Examination: normal. Prophylactic Antibiotics: The patient does not require prophylactic antibiotics. Prior Anticoagulants: The patient has taken no anticoagulant or antiplatelet agents except for NSAID medication. ASA Grade Assessment: III - A patient with severe systemic disease. After reviewing the risks and benefits, the patient was deemed in satisfactory condition to undergo the procedure. The anesthesia plan was to use monitored anesthesia care (MAC). Immediately prior to administration of medications, the patient was re-assessed for adequacy to receive sedatives. The heart rate, respiratory rate, oxygen saturations, blood pressure, adequacy of pulmonary ventilation, and response to care were monitored throughout the procedure. The physical status of the patient was re-assessed after the procedure. After obtaining informed consent, the endoscope was passed under direct vision. Throughout the procedure, the patient's blood pressure, pulse, and oxygen saturations were monitored continuously. The Endoscope was introduced through the mouth, and advanced to the third part of the duodenum. Small bowel enteroscopy was deemed necessary. The upper GI endoscopy was accomplished without difficulty. The patient tolerated the procedure well. Scope In: 3:23:10 PM Scope Out: 3:32:27 PM Total Procedure Duration Time 0 hours 9 minutes 17 seconds Findings: Grade III varices were found in the middle third of the esophagus and in the lower third of the esophagus. They were 20 mm in largest diameter. Severe portal hypertensive gastropathy was found in the entire examined stomach. Coagulation for hemostasis using heater probe was successful. Estimated blood loss was minimal. Three 5 mm angiodysplastic lesions with bleeding were found in the second portion of the duodenum and in the third portion of the duodenum. Impression: - Grade III esophageal varices. - Portal hypertensive gastropathy. Treated with a heater probe. - Three bleeding angiodysplastic lesions in the duodenum. - No specimens collected. Recommendation: - [facility]. - Clear liquid diet today. - Continue present medications. Procedure Code(s): --- Professional --- 43526, Small intestinal endoscopy, enteroscopy beyond second portion of duodenum, not including ileum; with control of bleeding (eg, injection, bipolar cautery, unipolar cautery, laser, heater probe, stapler, plasma rat exterminator) CPT copyright 2021 [employer]. All rights reserved. The codes documented in this report are preliminary and upon clinical faculty review may be revised to meet current compliance requirements. Ronald Nash DO 02/10/2025 3:55:37 PM This report has been signed electronically. Number of Addenda: 0 Note Initiated On: 02/10/2025 3:11 PM
--- NOTE | 2025-02-10 15:55 | OP.CCLET_ITS ---
02/10/2025 Juan Locke [address] [place] [address] Re : Upper GI endoscopy procedure for Barbara Ledesma Dear Dr. Locke This procedure was performed on Monday, February 10, 2025. My impressions and recommendations are as follows: Impressions : - Grade III esophageal varices. - Portal hypertensive gastropathy. Treated with a heater probe. - Three bleeding angiodysplastic lesions in the duodenum. - No specimens collected. Recommendations : - [facility]. - Clear liquid diet today. - Continue present medications. My findings are described in the full procedure note, which is enclosed. If I can be of further assistance, please feel free to contact me at . Sincerely, Ronald Nash, 02/10/2025 3:55:37 PM This report has been signed electronically.
[2025-02-10] MEDS: Furosemide 40 MG Tablet PO (17:01)
[2025-02-10] MEDS: DULoxetine Hcl 60 MG Capsule PO (17:01)
[2025-02-10] MEDS: Cyanocobalamin 500 MCG Tablet 1000 MCG PO (17:01)
[2025-02-10] MEDS: Loratadine 10 MG Tablet PO (17:01)
[2025-02-10] MEDS: Ferrous Gluconate 324 MG Tablet PO (17:02)
[2025-02-10 19:01] LABS: Hematocrit 26.4 % (37-47); Hemoglobin 8.6 g/dL (12.0-15.0)
[2025-02-10] MEDS: Propranolol 10 MG Tablet PO (20:17)
--- NOTE | 2025-02-10 20:46 | PCM.POSTANE2 ---
Anesthesia Postop Eval I Sum Postop Eval Completion status Anesthesia document: Postop Eval 1 completed: Yes Anesthesia Postop Eval I Summary Anesthesia Postop Eval I Summary: Anesthesia Postop Eval I: Assessment Summary Airway patent Yes 02/10/25 15:48 [email or web address] Spontaneous unlabored Yes 02/10/25 15:48 [email or web address] respirations Mental status Awake 02/10/25 15:48 [email or web address] nausea No 02/10/25 15:48 [email or web address] Vomiting No 02/10/25 15:48 [email or web address] Anesthesia Postop Eval I: Fluid Summary Crystalloid volume administer 200 02/10/25 15:48 [email or web address] (ml) Colloids volume administered ( ml) Blood Product volume administered (ml) Total IV fluid infused 200 02/10/25 15:48 [email or web address] Anesthesia Postop Eval I: Summary Notes Anesthesia Complication No 02/10/25 15:48 [email or web address] Anesthesia Complication Comment: Post-operative progress note Anesthesia: Postop Eval II Evaluation Mental status: Awake and Calm Pain Level: 0 nausea: No Vomiting: No Complications Anesthesia Complication: No
[2025-02-11] VITALS (17 sets, daily range): BP systolic 87–117; BP diastolic 48–105; PULSE 73–85; RESP 14–18; TEMP 36.1–36.9; O2SAT 92–99
[2025-02-11] MEDS: Levothyroxine 137 MCG Tablet PO (05:38)
[2025-02-11 05:44] LABS: Absolute Lymphocyte Count 0.72 X10^3/uL (0.83-4.51); Absolute Neutrophil Count 2.6 X10^3/uL (2.0-7.7); Basophil# 0.02 X10^3/uL; Basophil% 0.5 % (0-1); Eosinophil# 0.14 X10^3/uL; Eosinophils% 3.6 % (0-5); Hemoglobin 8.1 g/dL (12.0-15.0); Lymphocyte # 0.72 X10^3/ul (0.83-4.51); Lymphocyte % 18.5 % (19-41); Mean Corp Hgb Conc 32.4 g/dL (32-36); Mean Corpuscular Hgb 27.6 pg (27.0-32.0); Monocyte# 0.35 X10^3/uL; NRBC Flagged by Analyzer 0.8 % (0-5); Neutrophil # 2.64 X10^3/uL (2.7-7.7); Neutrophil % 67.6 % (47-70); POSITIVE COUNT YES; Platelet Count 75 K/mm3 (150-450); RBC Distribution Width CV 15.9 % (11.6-14.6); RBC Distribution Width SD 48.5 fl (35.1-43.9); Red Blood Count 2.94 M/mm3 (4.2-5.4); White Blood Count 3.9 K/mm3 (4.4-11.0)
[2025-02-11 06:29] LABS: Anion Gap 9 (5-15); BUN 17 mg/dL (4-19); BUN/Creat Ratio 15.8 RATIO (10-20); Calcium,Total 8.4 mg/dL (7.6-11.0); Carbon Dioxide 20.8 mmol/L (21.0-32.0); Chloride 110 mmol/L (98-108); Creatinine, Serum 1.07 mg/dL (0.70-1.20); EST Glomerular Filtration Rate 56 (>60); Estimated Creatinine Clearance 51.14 ml/min (50-250); Glucose 151 mg/dL (70-99); Potassium 3.8 mmol/L (3.3-5.1); Sodium Level 140 mmol/L (133-145)
[2025-02-11] MEDS: Pantoprazole Sodium 40 MG in 0.9% Normal Saline (100mL MB+) 100 ML 330 MG IV ×2 (09:22→21:03)
[2025-02-11] MEDS: 0.9% Saline Lock 10 ML Syringe IV (09:23)
--- NOTE | 2025-02-11 10:36 | PN_ITS ---
Subjective Subjective Patient seen and examined. She had no complaints this morning. She did have some dark melena stools again overnight. She had EGD yesterday which showed grade III esophageal varices and bleeding angiodysplastic lesions which were cauterised. She is for repeat EGD for esophageal variceal banding. Objective Data Objective Data Vital Signs: Vital Signs Temp Pulse Resp BP Pulse Ox O2 Del Method 98.5 F 76 15 92/56 L 99 Room Air 02/11/25 09:15 02/11/25 09:15 02/11/25 09:15 02/11/25 09:15 02/11/25 09:15 02/11/25 10:00 Oxygen Delivery Method Room Air Weight: 189 lb 6.033 oz Body Mass Index (BMI) 32.5 Intake & Output: Intake and Output for Last 24 Hours 02/09/25 02/10/25 02/11/25 23:59 23:59 23:59 Intake Total 860 / 860 1400 / 1400 Output Total 0 / 0 Balance 860 / 860 1400 / 1400 Lab / Micro Data 02/11/25 05:15 02/11/25 05:15 Labs: Laboratory Results - last 24 hr 02/09/25 12:11: Crossmatch See Detail 02/10/25 18:35: Hgb 8.6 L, Hct 26.4 L 02/11/25 05:15: WBC 3.9 L, RBC 2.94 L, Hgb 8.1 L, Hct 25.0 L, MCV 85.0, MCH 27.6, MCHC 32.4, RDW Std Deviation 48.5 H, RDW Coeff of Cornelio 15.9 H, Plt Count 75 L, MPV 11.0, Immature Gran % (Auto) 0.800, Neut % (Auto) 67.6, Lymph % (Auto) 18.5 L, [place] % (Auto) 9.0, Eos % (Auto) 3.6, Baso % (Auto) 0.5, Absolute Neuts (auto) 2.6, Absolute Lymphs (auto) 0.72 L, Nucleated RBC % 0.8, Sodium 140, Potassium 3.8, Chloride 110 H, Carbon Dioxide 20.8 L, Anion Gap 9, BUN 17, Creatinine 1.07, Estim Creat Clear Calc 51.14, Est GFR (MDRD) Non-Af 56 L, BUN/Creatinine Ratio 15.8, Glucose 151 H, Calcium 8.4 Rhythm Strip Rhythm Strip: Sinus Tach Rate: 102 Ectopy: None Physical Exam Const alert, oriented x3 and no apparent distress General Appearance: cooperative HEENT normocephalic, head/scalp atraumatic, moist oral mucous membranes, oropharynx normal and gingiva normal Eyes EOMs intact bilaterally Neck no lymphadenopathy and supple Lymph Lymphatic: no lymphedema noted Resp normal respiratory effort, normal air movement and clear to auscultation bilaterally Cardio regular rate, regular rhythm, S1 normal heart sound, S2 normal heart sound and no murmurs GI normal to inspection, nondistended, normoactive bowel sounds and soft to palpation Extremity normal capillary refill, no clubbing, cyanosis or edema and no calf tenderness General Extremity: no tenderness to palpation of joints or extremities Skin General Skin Exam: no breakdown Neuro no focal motor deficits and no sensory deficits noted Motor Exam: strength 5/5 throughout Psych thought process normal, cooperative and affect normal Appearance: appropriate Assessment & Plan Assessment/Plan (1) ABLA (acute blood loss anemia): (2) Acute upper gastrointestinal bleeding: PLAN: Plan #Acute on chronic anemia due to acute Gi bleed * has a history of esophageal varices and portal gastropathy in the setting of cirrhosis * s/p transfusion of 4 units of PRBCs. Hb toay is 8.1. * Had EGD which showed 3 bleeding angiodysplastic lesions which were cauterized. He also had grade 3 esophageal varices and is to go for repeat EGD today for banding. * Continue PPI. * Continue NPO. * #Chronic liver cirrhosis: on propranolol, furosemide and spironolactone. GI on board #Pancytopenia: * Wbc is 3.9 and hb is 8.1. Platelets are 75. * This is likely due to her chronic liver disease. Will monitor #Hypothyroidism: on synthroid DVT prophylaxis: SCDs. No anticoagulation due to GI bleed Charges/Coding Visit Charges Inpatient E&M: 17176 Subs Hosp L2
[2025-02-11] MEDS: Lactated Ringers 1,000 ML 15 ML IV (12:31)
--- NOTE | 2025-02-11 12:45 | PCM.PRE.AN2 ---
ASA Classification* ASA Classification ASA Classification: 3 (Chronic liver cirrhosis) Assessment & Plan Anesthesia* Anesthesia Assessment Anesthesia Assessment: Discussed sedation and/or anesthesia options, risks, benefits, and alternatives with patient/parents/legal guardian/POA. Questions invited. The patient/parents/legal guardian/POA seems to understand and agrees to proceed with anesthesia plan. Reviewed the physical assessment, medical history, allergy history and patient home medications list prior to surgery/procedure/anesthetic and documented any changes. Performed airway and anesthesia risk assessments. Anesthesia Type Anesthesia Type: General (Patient had EGD yesterday, did fine. Review chart please. Ozempic ) History Source History Obtained from:: Patient and Chart Anesthesia Focused Assessment* Temperature: 98.2 F Pulse Rate: 81 Blood Pressure: 101/59 Respiratory Rate: 14 Pulse Ox: 92 Airway Assessment Mouth opens: >3 cm Mallampati Score: I Teeth Condition: Chipped/Broken (Patient has a chipped tooth #8.) Neck Range of motion (ROM): Full ROM Focused Labs Anesthesia Preop lab: CBC WBC 3.9 K/mm3 (4.4-11.0) L 02/11/25 05:15 02/11/25 RBC 2.94 M/mm3 (4.2-5.4) L 02/11/25 05:15 02/11/25 Hgb 8.1 g/dL (12.0-15.0) L 02/11/25 05:15 02/11/25 Hct 25.0 % (37-47) L 02/11/25 05:15 02/11/25 Plt Count 75 K/mm3 (150-450) L 02/11/25 05:15 02/11/25 CHEMISTRY Potassium 3.8 mmol/L (3.3-5.1) 02/11/25 05:15 02/11/25 Sodium 140 mmol/L (133-145) 02/11/25 05:15 02/11/25 Magnesium 2.0 mg/dL (1.5-2.2) 02/10/25 03:40 02/10/25 Phosphorus 2.5 mg/dL (2.7-4.5) L 02/10/25 03:40 02/10/25 BUN 17 mg/dL (4-19) 02/11/25 05:15 02/11/25 Creatinine 1.07 mg/dL (0.70-1.20) 02/11/25 05:15 02/11/25 Glucose 151 mg/dL (70-99) H 02/11/25 05:15 02/11/25 POC Glucose 159 mg/dL (74-106) H 11/10/24 11:33 11/10/24 TSH 2.420 uIU/mL (0.358-3.740) 11/08/24 05:27 11/08/24 COAG PT 15.8 SECONDS (11.7-14.9) H 02/10/25 03:40 02/10/25 Pre-Assessment Diagnosis/Proposed Procedure Planned Operative Procedure(s): Esophagogastroduodenoscopy. 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 When Was Last Pacemaker Check QUESTION #4 FULL TEXT: You/Your Family Experience fever (hyperthermia) with Anesthesia Last Oral Intake Last Oral intake: Last Oral Intake NPO since 00:01 02/10/25 11:13 Meds taken in AM with sips of No 02/10/25 11:13 water? Meds patient instructed to take am of surgery PONV PONV - land leases and rentals manager: PONV - land leases and rentals manager Female HX of Motion Sickness HX of N/V After Surgery Non-Smoker Duration of Surgery greater than 60 minutes Number of Risk Factors PONV Score Height & Weight Height & Weight: Anesthesia: Height & Weight Height 5 ft 4 in 02/11/25 10:37 Weight: 85.9 kg 02/11/25 10:37 Body Mass Index (BMI) 32.5 02/09/25 16:59 Respiratory Assessment Respiratory Assessment - land leases and rentals manager: Respiratory Tract Infection Hx - land leases and rentals manager Hx Respiratory Tract Infection No 02/09/25 20:05 STOP Sleep Apnea STOP Sleep Apnea - land leases and rentals manager: STOP Sleep Apnea - land leases and rentals manager Hx Hypertension Yes 02/09/25 16:59 Hx Sleep Apnea Yes 02/09/25 16:59 CPAP No 02/09/25 16:59 BIPAP No 02/09/25 16:59 Do you snore loudly (louder than talking or can be heard Do you often feel tired/ fatigued/ sleepy during daytime? Has anyone observed you stop breathing during sleep? STOP Results Positive 02/10/25 15:40 QUESTION #5 FULL TEXT : Do you snore loudly (louder than talking or can be heard through closed doors)? 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 Specify any problems Hx of Preganancy in last 3 No 02/09/25 16:59 Months Nurse Filling Out Transfusion [email or web address] 02/09/25 16:59 & Questions: Date: 02/09/25 02/09/25 16:59 Time: 17:04 02/09/25 16:59 Patient unable to answer at this time (ie. confused, unrespo /Reproduction History /Reproductive History - land leases and rentals manager: /Reproductive Hx- land leases and rentals manager Hx Now Gestational Age (in weeks): EDC: Hx Hx Para Hx Section SAB No 11/09/24 05:49 Active Medications Active Medications: Current Medications Generic Name Dose Route Start Last Admin Trade Name Freq PRN Reason Stop Dose Admin Albuterol Sulfate 2.5 mg 02/09/25 17:08 Albuterol 2.5 Mg/3 Ml Vial.Neb. INHALATION Q4H PRN ALLERGIES Cholestyramine Resin 4 gm 02/10/25 10:00 02/10/25 17:02 Cholestyramine/Sucrose 4 Gm/Packet PO Not Given DAILY AMANDEEP Cyanocobalamin 1,000 mcg 02/10/25 10:00 02/10/25 17:01 Cyanocobalamin 500 Mcg Tablet PO 1,000 mcg DAILY AMANDEPE Administration Duloxetine HCl 60 mg 02/10/25 10:00 02/10/25 17:01 Duloxetine Hcl 60 Mg Capsule PO 60 mg DAILY AMANDEEP Administration Ferrous Gluconate 324 mg 02/09/25 22:00 02/11/25 09:16 Ferrous Gluconate 324 Mg Tablet PO Not Given TIDCM AMANDEEP Furosemide 40 mg 02/10/25 10:00 02/10/25 17:01 Furosemide 40 Mg Tablet PO 40 mg DAILY AMANDEEP Administration Protocol Pantoprazole Sodium 40 mg/ 100 mls @ 330 mls/hr 02/09/25 22:00 02/11/25 09:45 Sodium Chloride IV Infused Q12 AMANDEEP Infusion Sodium Chloride 250 mls @ 15 mls/hr 02/09/25 17:07 IV .[id number] PRN Additional IVPB Infusion Sodium Chloride 250 mls @ 15 mls/hr 02/09/25 17:07 IV .[id number] PRN Saline Flush Lactated Ringer's 1,000 mls @ 15 mls/hr 02/11/25 12:30 02/11/25 12:31 IV 15 mls/hr .Q48H AMANDEEP Administration Levothyroxine Sodium 137 mcg 02/10/25 06:00 02/11/25 05:38 Levothyroxine 137 Mcg Tablet PO 137 mcg DAILY@0600 AMANDEEP Administration Loratadine 10 mg 02/10/25 10:00 02/10/25 17:01 Loratadine 10 Mg Tablet PO 10 mg DAILY AMANDEEP Administration Ondansetron HCl 4 mg 02/09/25 16:59 Ondansetron 4 Mg/2 Ml Vial IV Q8H PRN PRN NAUSEA/VOMITING Propranolol HCl 10 mg 02/09/25 22:00 02/11/25 05:39 Propranolol 10 Mg Tablet PO Not Given TID AMANDEEP Protocol Sodium Chloride 10 - 40 ml 02/09/25 17:07 02/11/25 09:23 0.9% Saline Lock 10 Ml Syringe IV 10 ml UD PRN Administration SALINE FLUSH Spironolactone 50 mg 02/09/25 22:00 02/11/25 09:17 Spironolactone 50 Mg Tablet PO Not Given BID [facility] Protocol PFSH Medical History Ascites Cirrhosis Iron deficiency anemia Lung nodule Hemorrhoids History of diabetes mellitus History of cirrhosis Anemia Pleural effusion on left Exertional dyspnea Chest pain Wears contact lenses Wears glasses Post-menopausal Anxiety Alcohol use Thyroid disease History of renal disease Anemia Back pain History of diverticulitis Gastric reflux Former smoker Sleep apnea Chronic cough S/p nephrectomy Depression Migraines HTN (hypertension) Diabetes Home Medications ?Medication ?Instructions ?Recorded ?Last Taken ?Type duloxetine 60 mg capsule,delayed 60 mg PO DAILY mental health 11/06/17 02/08/25 History release ergocalciferol (vitamin D2) 1,250 50,000 unit PO SA vitamin 11/06/17 02/06/25 History mcg (50,000 unit) capsule albuterol sulfate 90 mcg/actuation 1 - 2 puff inhalation PRN PRN 02/20/23 03/16/24 History aerosol inhaler ALLERGIES dulaglutide 0.75 mg/0.5 mL 0.75 mg subcut SA diabetes 10/10/23 02/06/25 History subcutaneous pen injector (Trulicity) cyanocobalamin (vitamin B-12) 1,000 mcg PO DAILY vitamin 02/13/24 02/08/25 History 1,000 mcg capsule fexofenadine 180 mg tablet 180 mg PO DAILY allergies 03/03/24 02/08/25 History (Aaliyah Allergy) propranolol 10 mg tablet 10 mg PO TID blood pressure 30 04/02/24 02/08/25 Rx days #90 tabs spironolactone 50 mg tablet 50 mg PO BID diuretic #30 tabs 07/07/24 02/08/25 Rx furosemide 40 mg tablet 40 mg PO QDAY diuretic 11/07/24 02/09/25 History ferrous gluconate 324 mg (38 mg 324 mg PO TID #90 tabs 11/10/24 02/08/25 Rx iron) tablet famotidine 40 mg tablet 40 mg PO QHS #30 tabs 11/21/24 02/08/25 Rx omeprazole 40 mg capsule,delayed 40 mg PO BID #60 caps 11/21/24 02/08/25 Rx release cholestyramine 4 gram oral powder 4 g PO DAILY 02/09/25 02/08/25 History for suspension in a packet (Prevalite) levothyroxine 137 mcg tablet 137 mcg PO DAILY 02/09/25 02/08/25 History (Synthroid) Allergy/AdvReac Type Severity Reaction Status Date / Time adhesive tape Allergy Rash Verified 02/09/25 12:03 Family History Father Colon cancer Brother Cancer bladder Surgical History History of thoracentesis Hx of colonoscopy History of esophagogastroduodenoscopy (EGD) S/P shoulder surgery S/P hysterectomy History of lobectomy of thyroid Social History Smoking Status: Former smoker alcohol intake: current alcohol intake frequency: holidays/special occasions only Review of Systems (Anesthesia) ROS Narrative System reviewed and no additional complaints, except as documented. Physical Exam Const alert, oriented x3 and average body habitus Resp normal respiratory effort, normal air movement and clear to auscultation bilaterally Cardio regular rate, regular rhythm, no murmurs and diaphoretic
--- NOTE | 2025-02-11 13:12 | PCM.PN.BLA ---
Progress Note Patient has been n.p.o. for upper endoscopy for reevaluation of her esophageal varices. Physical Exam Const alert, oriented x3 and average body habitus Resp normal respiratory effort, normal air movement and clear to auscultation bilaterally Cardio regular rate, regular rhythm, no murmurs and diaphoretic Assessment & Plan Assessment/Plan (1) Pleural effusion on left: PLAN: Plan 69-year-old female with history of MAFLD associated cirrhosis, type 2 diabetes, presents to the ED with concerns regarding worsening shortness of breath and fatigue. She was discovered to have significant anemia with a hemoglobin of 5.6 Metabolic associated fatty liver disease with cirrhosis: -Child Reich score A, MELD-NA: 10 -Compensated cirrhosis with complications of portal hypertension -She will need egd for to look for signs of GI blood loss Acute on chronic anemia Severe anemia -Combination of iron deficiency anemia with pancytopenia due to splenomegaly -Transfuse 1 unit of blood PRBC to maintain Hgb greater than 7 -INR is 1.2, no underlying coagulopathy 02/10/2025-further recommendations to follow after patient undergoes an upper endoscopy. Thank you 02/11/2025-repeat upper endoscopy today further recommendations after procedure.
--- NOTE | 2025-02-11 13:25 | PCM.POST.ANE ---
Anesthesia: Postop Eval I Current Vital Signs Temperature: 97 F Pulse Rate: 85 Blood Pressure: 117/105 Respiratory Rate: 16 Pulse Ox: 97 Oxygen Delivery Method: Room Air Assessment Airway patent: Yes Spontaneous unlabored respirations: Yes Mental status: Awake and Calm nausea: No Vomiting: No Anesthesia Complication: No Fluid Hydration Crystalloid volume administer (ml): 250 Total IV fluid infused: 250 Progress Note Anesthesia document: Postop Eval 1 completed: Yes
--- NOTE | 2025-02-11 13:26 | OP.EGD_ITS ---
Patient Name: Barbara Ledesma Procedure Date: 02/11/2025 12:57 PM Date of : 1955 Age: 70 Procedure: Upper GI endoscopy Indications: For therapy of esophageal varices Providers: Ronald Nash DO Referring MD: Kwasi Nieves DO Medicines: Monitored Anesthesia Care Patient Profile: This is a 70 year old female. Refer to note in patient chart for documentation of history and physical. Patient has symptoms. Complications: No immediate complications. Procedure: Pre-Anesthesia Assessment: - Prior to the procedure, a History and Physical was performed, and patient medications and allergies were reviewed. The patient is competent. The risks and benefits of the procedure and the sedation options and risks were discussed with the patient. All questions were answered and informed consent was obtained. Patient identification and proposed procedure were verified by the physician in the pre-procedure area. Mental Status Examination: alert and oriented. Airway Examination: normal oropharyngeal airway and neck mobility. Respiratory Examination: clear to auscultation. CV Examination: normal. Prophylactic Antibiotics: The patient does not require prophylactic antibiotics. Prior Anticoagulants: The patient has taken no anticoagulant or antiplatelet agents except for NSAID medication. ASA Grade Assessment: IV - A patient with severe systemic disease that is a constant threat to life. After reviewing the risks and benefits, the patient was deemed in satisfactory condition to undergo the procedure. The anesthesia plan was to use monitored anesthesia care (MAC). Immediately prior to administration of medications, the patient was re-assessed for adequacy to receive sedatives. The heart rate, respiratory rate, oxygen saturations, blood pressure, adequacy of pulmonary ventilation, and response to care were monitored throughout the procedure. The physical status of the patient was re-assessed after the procedure. After obtaining informed consent, the endoscope was passed under direct vision. Throughout the procedure, the patient's blood pressure, pulse, and oxygen saturations were monitored continuously. The Endoscope was introduced through the mouth, and advanced to the second part of duodenum. The upper GI endoscopy was accomplished without difficulty. The patient tolerated the procedure well. Scope In: 1:16:19 PM Scope Out: 1:23:04 PM Total Procedure Duration Time 0 hours 6 minutes 45 seconds Findings: Grade III varices were found in the upper third of the esophagus, in the middle third of the esophagus and in the lower third of the esophagus. They were 20 mm in largest diameter. Three bands were successfully placed with incomplete eradication of varices. There was no bleeding during and at the end of the procedure. Severe portal hypertensive gastropathy was found in the entire examined stomach. No gross lesions were noted in the entire examined duodenum. Impression: - Grade III esophageal varices. Incompletely eradicated. Banded. - Portal hypertensive gastropathy. - No gross lesions in the entire examined duodenum. - No specimens collected. Recommendation: - [facility]. - Full liquid diet today. - Continue present medications. Procedure Code(s): --- Professional --- 25271, Esophagogastroduodenoscopy, flexible, transoral; with band ligation of esophageal/gastric varices CPT copyright 2021 [employer]. All rights reserved. The codes documented in this report are preliminary and upon clay burner review may be revised to meet current compliance requirements. Ronald Nash DO 02/11/2025 1:26:29 PM This report has been signed electronically. Number of Addenda: 0 Note Initiated On: 02/11/2025 12:57 PM
--- NOTE | 2025-02-11 13:26 | OP.CCLET_ITS ---
02/11/2025 Juan Locke [address] [place] [address] Re : Upper GI endoscopy procedure for Barbara Ledesma Dear Dr. Locke This procedure was performed on January. My impressions and recommendations are as follows: Impressions : - Grade III esophageal varices. Incompletely eradicated. Banded. - Portal hypertensive gastropathy. - No gross lesions in the entire examined duodenum. - No specimens collected. Recommendations : - [facility]. - Full liquid diet today. - Continue present medications. My findings are described in the full procedure note, which is enclosed. If I can be of further assistance, please feel free to contact me at . Sincerely, Ronald Nash, 02/11/2025 1:26:29 PM This report has been signed electronically.
--- NOTE | 2025-02-11 13:31 | POSTOPAN2_ITS ---
Anesthesia Postop Eval I Sum Postop Eval Completion status Anesthesia document: Postop Eval 1 completed: Yes Anesthesia Postop Eval I Summary Anesthesia Postop Eval I Summary: Anesthesia Postop Eval I: Assessment Summary Airway patent Yes 02/11/25 13:26 [email or web address] Spontaneous unlabored Yes 02/11/25 13:26 [email or web address] respirations Mental status Awake,Calm 02/11/25 13:26 [email or web address] nausea No 02/11/25 13:26 [email or web address] [email or web address] Vomiting No 02/11/25 13:26 [email or web address] Anesthesia Postop Eval I: Fluid Summary Crystalloid volume administer 250 02/11/25 13:26 [email or web address] [email or web address] (ml) Colloids volume administered ( ml) Blood Product volume administered (ml) Total IV fluid infused 250 02/11/25 13:26 [email or web address] Anesthesia Postop Eval I: Summary Notes Anesthesia Complication No 02/11/25 13:26 [email or web address] Anesthesia Complication Comment: Post-operative progress note Anesthesia: Postop Eval II Evaluation Mental status: Awake and Calm Pain Level: 0 nausea: No Vomiting: No Complications Anesthesia Complication: No
--- NOTE | 2025-02-11 13:31 | PCM.POSTANE2 ---
Anesthesia Postop Eval I Sum Postop Eval Completion status Anesthesia document: Postop Eval 1 completed: Yes Anesthesia Postop Eval I Summary Anesthesia Postop Eval I Summary: Anesthesia Postop Eval I: Assessment Summary Airway patent Yes 02/11/25 13:26 [email or web address] Spontaneous unlabored Yes 02/11/25 13:26 ENAMEL [email or web address] respirations Mental status Awake,Calm 02/11/25 13:26 [email or web address] nausea No 02/11/25 13:26 ENAMEL [email or web address] Vomiting No 02/11/25 13:26 [email or web address] Anesthesia Postop Eval I: Fluid Summary Crystalloid volume administer 250 02/11/25 13:26 [email or web address] (ml) Colloids volume administered ( ml) Blood Product volume administered (ml) Total IV fluid infused 250 02/11/25 13:26 [email or web address] Anesthesia Postop Eval I: Summary Notes Anesthesia Complication No 02/11/25 13:26 [email or web address] Anesthesia Complication Comment: Post-operative progress note Anesthesia: Postop Eval II Evaluation Mental status: Awake and Calm Pain Level: 0 nausea: No Vomiting: No Complications Anesthesia Complication: No
[2025-02-11] MEDS: Propranolol 10 MG Tablet PO (14:55)
[2025-02-11] MEDS: Furosemide 40 MG Tablet PO (15:01)
[2025-02-11] MEDS: DULoxetine Hcl 60 MG Capsule PO (16:09)
[2025-02-11] MEDS: Loratadine 10 MG Tablet PO (16:09)
[2025-02-11] MEDS: Lidocaine 2% Viscous15 ML UDC 15 ML PO (16:09)
[2025-02-11] MEDS: Cyanocobalamin 500 MCG Tablet 1000 MCG PO (16:09)
[2025-02-11] MEDS: Ferrous Gluconate 324 MG Tablet PO (16:09)
[2025-02-11] MEDS: Mag Hydrox/Al Hydrox/Simeth 30 ML UDC PO (16:09)
[2025-02-11] MEDS: Morphine 4 MG/ML Syringe IV (21:04)
[2025-02-11] MEDS: Colestipol 1 GM TABLET PO (21:08)
[2025-02-12 05:24] VITALS: BP 92/59; PULSE 74; RESP 16; TEMP 36.6; O2SAT 94
[2025-02-12] MEDS: Levothyroxine 137 MCG Tablet PO (05:30)
[2025-02-12] MEDS: Colestipol 1 GM TABLET PO ×2 (05:30→13:58)
[2025-02-12 06:36] LABS: Absolute Lymphocyte Count 0.96 X10^3/uL (0.83-4.51); Absolute Neutrophil Count 1.9 X10^3/uL (2.0-7.7); Basophil# 0.02 X10^3/uL; Basophil% 0.6 % (0-1); Eosinophil# 0.14 X10^3/uL; Eosinophils% 4.2 % (0-5); Hematocrit 26.9 % (37-47); Hemoglobin 8.6 g/dL (12.0-15.0); Lymphocyte # 0.96 X10^3/ul (0.83-4.51); Lymphocyte % 28.5 % (19-41); Mean Corpuscular Hgb 27.7 pg (27.0-32.0); Mean Corpuscular Volume 86.5 fL (81-99); Mean Platelet Vol. 10.8 fl (6.2-12.0); Monocyte# 0.37 X10^3/uL; NRBC Flagged by Analyzer 0.6 % (0-5); Neutrophil # 1.87 X10^3/uL (2.7-7.7); Neutrophil % 55.4 % (47-70); POSITIVE COUNT YES; Platelet Count 77 K/mm3 (150-450); RBC Distribution Width CV 16.4 % (11.6-14.6); RBC Distribution Width SD 50.4 fl (35.1-43.9); Red Blood Count 3.11 M/mm3 (4.2-5.4); White Blood Count 3.4 K/mm3 (4.4-11.0)
[2025-02-12 07:21] LABS: Anion Gap 8 (5-15); BUN 13 mg/dL (4-19); BUN/Creat Ratio 10.7 RATIO (10-20); Calcium,Total 8.4 mg/dL (7.6-11.0); Carbon Dioxide 22.3 mmol/L (21.0-32.0); Chloride 104 mmol/L (98-108); Creatinine, Serum 1.23 mg/dL (0.70-1.20); EST Glomerular Filtration Rate 47 (>60); Estimated Creatinine Clearance 44.49 ml/min (50-250); Glucose 152 mg/dL (70-99); Potassium 3.5 mmol/L (3.3-5.1); Sodium Level 134 mmol/L (133-145)
[2025-02-12 08:03] VITALS: BP 109/61; PULSE 86; RESP 16; TEMP 36.4; O2SAT 94
[2025-02-12] MEDS: Ferrous Gluconate 324 MG Tablet PO ×3 (08:59→17:27)
[2025-02-12] MEDS: DULoxetine Hcl 60 MG Capsule PO (09:00)
[2025-02-12] MEDS: Spironolactone 50 MG Tablet PO (09:00)
[2025-02-12] MEDS: Loratadine 10 MG Tablet PO (09:00)
[2025-02-12] MEDS: Cyanocobalamin 500 MCG Tablet 1000 MCG PO (09:00)
[2025-02-12] MEDS: Furosemide 40 MG Tablet PO (09:00)
[2025-02-12] MEDS: 0.9% Saline Lock 10 ML Syringe IV (09:06)
[2025-02-12] MEDS: Pantoprazole Sodium 40 MG in 0.9% Normal Saline (100mL MB+) 100 ML 330 MG IV (09:06)
[2025-02-12 13:54] VITALS: BP 102/63; PULSE 80; RESP 17; TEMP 36.6; O2SAT 96
[2025-02-12] MEDS: Propranolol 10 MG Tablet PO (13:58)
--- NOTE | 2025-02-12 14:59 | CASEMGMT ---
MJ CM to pt room at this time to f/u on DC planning. Pt states that she feels safe returning home alone once she is medically ready and denies the need for any additional therapy. Pt states that her sister can provide her with support as needed. Pt denies further DC needs at this time.
--- NOTE | 2025-02-12 15:47 | DCINST_ITS ---
Discharge Instructions Diet Discharge Diet: Low fat / Low cholesterol DC O2, CPAP, BIPAP needs Home O2 Discharge instructions: No Dressing / Incision Discharge Activity: Return to Normal Activity Weight Bearing Status: Weight bearing as tolerated Dressing / Incision Call your doctor if you observe: Fever of 101 or Higher, Shortness of breath, Dizziness, Swelling in the ankles and Chest pain Follow Up Care Test Results: Test results from this visit will be discussed in further detail at your follow- up appointment, if applicable. Discharge Plan Admission Admit Date/Time: 02/09/25 16:18 Primary Reason for Your Visit: GI bleed Attending Provider: Trisha Iraheta Primary Care Provider: Juan Locke Consulting Providers: Kwasi Nieves Instructions Patient Instructions: GI Bleeding Ch Discharge Orders/Prescriptions Prescriptions: Continued Trulicity 0.75 mg/0.5 mL pen injector 0.75 mg subcut SA cyanocobalamin (vitamin B-12) 1,000 mcg capsule 1,000 mcg PO DAILY spironolactone 50 mg tablet 50 mg PO BID Qty: 30 2RF Rx Instructions: Hold if serum POTASSIUM is more than 5.1 famotidine 40 mg tablet 40 mg PO QHS Qty: 30 3RF omeprazole 40 mg capsule,delayed release(DR/EC) 40 mg PO BID Qty: 60 3RF ergocalciferol (vitamin D2) 50,000 UNIT capsule 50,000 unit PO SA duloxetine 60 MG capsule,delayed release(DR/EC) 60 mg PO DAILY albuterol sulfate 90 mcg/actuation HFA aerosol inhaler 1 - 2 puff INHALATION PRN PRN (Reason: ALLERGIES) furosemide 40 mg tablet 40 mg PO QDAY ferrous gluconate 324 mg (38 mg iron) tablet 324 mg PO TID Qty: 90 0RF fexofenadine [Aaliyah Allergy] 180 mg tablet 180 mg PO DAILY propranolol 10 mg Tablet 10 mg PO TID 30 Days Qty: 90 0RF levothyroxine [Synthroid] 137 mcg tablet 137 mcg PO DAILY Prevalite 4 gram powder in packet 4 g PO DAILY Referrals / Follow Up: Juan Locke DO [Primary Care Provider] - Within 1 Week Ronald Nash DO [Med Staff - Active Staff] - Within 2 Weeks Disposition Disposition (needs filled in before D/C Order can be placed): Home, Self Care
--- NOTE | 2025-02-12 15:50 | PCM.DC.SUM ---
Providers Date of Admission: 02/09/25 Date of Discharge: 02/12/25 Primary Care Physician: Dr. Juan Locke, DO Consultations 02/09/25 16:59 Consult: Gastroenterology Routine Consulting Provider: [facility] Reason for Consult: GI bleed EMERGENT Consult: No MD Notified: Yes Date Notified: 02/09/25 Time Notified: 16:21 Method of Notification: ED Physician Initiated Reason For Visit: UGIB, ABLA Diagnosis Discharge Diagnosis (1) Pleural effusion on left: Status: Inactive Code(s): J90 - Pleural effusion, not elsewhere classified Plan #Acute on chronic anemia due to acute Gi bleed has a history of esophageal varices and portal gastropathy in the setting of cirrhosis s/p transfusion of 4 units of PRBCs. Hb toay is 8.1. Had EGD which showed 3 bleeding angiodysplastic lesions which were cauterized. He also had grade 3 esophageal varices and is to go for repeat EGD today for banding. Continue PPI. Continue NPO. #Chronic liver cirrhosis: on propranolol, furosemide and spironolactone. GI on board #Pancytopenia: Wbc is 3.9 and hb is 8.1. Platelets are 75. This is likely due to her chronic liver disease. Will monitor #Hypothyroidism: on synthroid DVT prophylaxis: SCDs. No anticoagulation due to GI bleed Medications at Discharge Home Medications duloxetine 60 mg capsule,delayed release 60 mg PO DAILY mental health 11/06/17 ergocalciferol (vitamin D2) 1,250 mcg (50,000 unit) capsule 50,000 unit PO vitamin 11/06/17 albuterol sulfate 90 mcg/actuation aerosol inhaler 1 - 2 puff inhalation PRN PRN ALLERGIES 02/20/23 dulaglutide 0.75 mg/0.5 mL subcutaneous pen injector (Trulicity) 0.75 mg subcut diabetes 10/10/23 cyanocobalamin (vitamin B-12) 1,000 mcg capsule 1,000 mcg PO DAILY vitamin 02/13/24 fexofenadine 180 mg tablet (Aaliyah Allergy) 180 mg PO DAILY allergies 03/03/24 propranolol 10 mg tablet 10 mg PO TID blood pressure 30 days #90 tabs 04/02/24 spironolactone 50 mg tablet 50 mg PO BID diuretic #30 tabs 07/07/24 furosemide 40 mg tablet 40 mg PO QDAY diuretic 11/07/24 ferrous gluconate 324 mg (38 mg iron) tablet 324 mg PO TID supplement #90 tabs 11/10/24 famotidine 40 mg tablet 40 mg PO QHS reflux #30 tabs 11/21/24 omeprazole 40 mg capsule,delayed release 40 mg PO BID reflux #60 caps 11/21/24 cholestyramine 4 gram oral powder for suspension in a packet (Prevalite) 4 g PO DAILY 02/09/25 levothyroxine 137 mcg tablet (Synthroid) 137 mcg PO DAILY thyroid 02/09/25 Hospital Course Operations None Procedures None Summary of Care Provided Minutes Spent on Discharge: 45 Hospital Course: Patient is a 70 y/o female with a PMH as outlined who was admitted on 02/09/2025 with a complaint of weakness for several days prior to admission. She described it as how she usually felt when she was anemic. She came to the ED and hemoglobin was 5.2. She admitted to melena stools for several days prior to admission but denied any hematemesis or hematochezia. She was transfused with 2 units of blood cells in the ED and gastroenterology was consulted. She had been admitted in November and October 2024 and had EGD both times as well as capsule endoscopy in November 2024. The EGD October 2023 showed grade 2 esophageal varices and severe portal hypertensive gastropathy and capsule endoscopy in November 2024 showed no signs of blood loss anemia but noted portal gastropathy. She was admitted to be managed for acute on chronic anemia due to acute GI bleed. Gastroenterology was consulted. She had EGD which showed grade III esophageal varices and portal hypertensive gastropathy which were treated with a heater probe, and three bleeding angiodysplastic lesion in the duodenum which were cauterised. She had repeat EGD on 02/11/2025 and had banding of the grade 3 esophageal varices. She did not have any more bleeding. She was transfused a total of 4 units of packed red blood cells during this admission. She remained stable and was discharged on 02/12/2025. She was continue with her p.o. omeprazole 40 mg twice daily. She is follow-up with her PCP and with gastroenterology within 1 to 2 weeks. Patient seen and examined prior to discharge. She had no active complaints and felt well. Review of systems otherwise negative. Labs and vitals reviewed. Home medication reviewed and reconciled. Physical Exam Const alert, oriented x3, no apparent distress and well nourished General Appearance: cooperative, comfortable and well kempt Exam Limitations: no limitations HEENT normocephalic, head/scalp atraumatic, hearing grossly normal bilaterally, moist oral mucous membranes and oropharynx normal Eyes PERRL and EOMs intact bilaterally Neck no lymphadenopathy and supple Lymph Lymphatic: no lymphedema noted Resp normal respiratory effort, normal air movement and clear to auscultation bilaterally Cardio regular rate, regular rhythm, S1 normal heart sound, S2 normal heart sound and no murmurs GI normal to inspection, nondistended, normoactive bowel sounds, soft to palpation, non-tender and non-distended Extremity normal capillary refill, no clubbing, cyanosis or edema and no calf tenderness General Extremity: no tenderness to palpation of joints or extremities Skin no rashes or lesions noted General Skin Exam: no breakdown Neuro oriented x3, CN's II-XII intact bilaterally, moves all extremities, no focal motor deficits and no sensory deficits noted Sensorium / Orientation: awake and alert Motor Exam: strength 5/5 throughout Psych thought process normal, cooperative and affect normal Appearance: appropriate Weight / BMI Weight Weight: 189 lb 6.033 oz Body Mass Index (BMI) 32.5 ABG / Lab / Microbiology Data 02/12/25 06:06 02/12/25 06:06 Laboratory: Laboratory Results - last 24 hr 02/12/25 06:06: WBC 3.4 L, RBC 3.11 L, Hgb 8.6 L, Hct 26.9 L, MCV 86.5, MCH 27.7, MCHC 32.0, RDW Std Deviation 50.4 H, RDW Coeff of Cornelio 16.4 H, Plt Count 77 L, MPV 10.8, Immature Gran % (Auto) 0.300, Neut % (Auto) 55.4, Lymph % (Auto) 28.5, [place] % (Auto) 11.0 H, Eos % (Auto) 4.2, Baso % (Auto) 0.6, Absolute Neuts (auto) 1.9 L, Absolute Lymphs (auto) 0.96, Nucleated RBC % 0.6, Sodium 134, Potassium 3.5, Chloride 104, Carbon Dioxide 22.3, Anion Gap 8, BUN 13, Creatinine 1.23 H, Estim Creat Clear Calc 44.49 L, Est GFR (MDRD) Non-Af 47 L, BUN/Creatinine Ratio 10.7, Glucose 152 H, Calcium 8.4 D/C Instructions Discharge Diet: Low fat / Low cholesterol Discharge Activity: Return to Normal Activity Weight Bearing Status: Weight bearing as tolerated Call your doctor if you observe: Fever of 101 or Higher, Shortness of breath, Dizziness, Swelling in the ankles and Chest pain DC O2, CPAP, BIPAP Needs Home O2 Discharge instructions: No DC home with Oxygen: No Meaningful Use Info Meaningful Use Meaningful Use Diagnoses (Choose all that apply): None applicable Ischemic Stroke Statin Dosing Therapy Reference: STATIN DOSE THERAPY REFERENCE: * Patients > 75 years receive moderate or high dose statin therapy. * Patients 75 years or YOUNGER should receive HIGH intensity statin dose unless contraindicated. You will be required to document reason for non-treatment if statin daily dose does not meet guidelines. HIGH DOSE STATIN THERAPY DAILY Atorvastatin > than or = to 40 mg Rosuvastatin > than or = to 20 mg Amlodipine + Atorvastatin > than or = to 2.5/40 mg Ezetimibe + Simvastatin 10/80 mg Simvastatin 80mg Discharge Plan Admission Admit Date/Time: 02/09/25 16:18 Primary Reason for Your Visit: GI bleed Attending Provider: Trisha Iraheta Primary Care Provider: Juan Locke Consulting Providers: Kwasi Nieves Instructions Patient Instructions: GI Bleeding Ch Discharge Orders/Prescriptions Prescriptions: Continued Trulicity 0.75 mg/0.5 mL pen injector 0.75 mg subcut SA cyanocobalamin (vitamin B-12) 1,000 mcg capsule 1,000 mcg PO DAILY spironolactone 50 mg tablet 50 mg PO BID Qty: 30 2RF Rx Instructions: Hold if serum POTASSIUM is more than 5.1 famotidine 40 mg tablet 40 mg PO QHS Qty: 30 3RF omeprazole 40 mg capsule,delayed release(DR/EC) 40 mg PO BID Qty: 60 3RF ergocalciferol (vitamin D2) 50,000 UNIT capsule 50,000 unit PO SA duloxetine 60 MG capsule,delayed release(DR/EC) 60 mg PO DAILY albuterol sulfate 90 mcg/actuation HFA aerosol inhaler 1 - 2 puff INHALATION PRN PRN (Reason: ALLERGIES) furosemide 40 mg tablet 40 mg PO QDAY ferrous gluconate 324 mg (38 mg iron) tablet 324 mg PO TID Qty: 90 0RF fexofenadine [Aaliyah Allergy] 180 mg tablet 180 mg PO DAILY propranolol 10 mg Tablet 10 mg PO TID 30 Days Qty: 90 0RF levothyroxine [Synthroid] 137 mcg tablet 137 mcg PO DAILY Prevalite 4 gram powder in packet 4 g PO DAILY Referrals / Follow Up: Juan Locke DO [Primary Care Provider] - Within 1 Week FriendRonald DO [Med Staff - Active Staff] - Within 2 Weeks Disposition Disposition (needs filled in before D/C Order can be placed): Home, Self Care Charges/Coding Visit Charges Inpatient E&M: 22850 Disch Hosp >30min
[2025-02-12 17:25] VITALS: BP 99/61; PULSE 80; RESP 17; TEMP 36.7; O2SAT 96
== END 2025-02-12 17:55 | disposition home or self-care (01) | DRG 378 ==
LOC: ED 16:11 → PCU 16:19
PROVIDERS: Anesthesiology; Internal Medicine Gastroenterology; Emergency Provider Emergency Medicine; PCP Student in an Organized Health Care Education/Training Program; Visit Provider Student in an Organized Health Care Education/Training Program
PROC: 0DJ08ZZ Inspection of Upper Intestinal Tract, Via Natural or Artificial Opening Endoscopic (ICD-10-PCS; CPT 43235; principal; 2025-02-10 14:10)
DX: K31.811 Angiodysplasia of stomach and duodenum with bleeding (principal); D62 Acute posthemorrhagic anemia; D61.818 Other pancytopenia; K76.6 Portal hypertension; E11.9 Type 2 diabetes mellitus without complications; E03.9 Hypothyroidism, unspecified; D50.9 Iron deficiency anemia, unspecified; Z66 Do not resuscitate; K74.69 Other cirrhosis of liver; F32.A Depression, unspecified; I10 Essential (primary) hypertension; F41.9 Anxiety disorder, unspecified; K21.9 Gastro-esophageal reflux disease without esophagitis; I85.10 Secondary esophageal varices without bleeding; K31.89 Other diseases of stomach and duodenum; K76.0 Fatty (change of) liver, not elsewhere classified; R16.1 Splenomegaly, not elsewhere classified; Z87.19 Personal history of other diseases of the digestive system; Z79.899 Other long term (current) drug therapy; Z79.85 Long-term (current) use of injectable non-insulin antidiabetic drugs; Z79.890 Hormone replacement therapy; Z87.891 Personal history of nicotine dependence
CPT/HCPCS: 36415; 80048; 80053; 82248; 83036; 83735; 84100; 85014; 85018; 85025; 85610; 85730; 86850; 86870; 86900; 86901; 86920; 86921; 86922; 93005; 99285; C1889; P9016; A4216; J2405

== ENCOUNTER → 2025-02-26 | Outpatient (CLI) | payer MEDICARE, SELFPAY ==
[2025-02-26 14:50] LABS: Absolute Lymphocyte Count 0.48 X10^3/uL (0.83-4.51); Absolute Neutrophil Count 1.8 X10^3/uL (2.0-7.7); Basophil# 0.02 X10^3/uL; Basophil% 0.8 % (0-1); Eosinophil# 0.08 X10^3/uL; Hematocrit 28.7 % (37-47); Hemoglobin 8.7 g/dL (12.0-15.0); Lymphocyte # 0.48 X10^3/ul (0.83-4.51); Lymphocyte % 18.1 % (19-41); Mean Corp Hgb Conc 30.3 g/dL (32-36); Mean Corpuscular Hgb 25.7 pg (27.0-32.0); Mean Corpuscular Volume 84.7 fL (81-99); Mean Platelet Vol. 10.7 fl (6.2-12.0); Monocyte# 0.26 X10^3/uL; Monocyte% 9.8 % (0-10); NRBC Flagged by Analyzer 0 % (0-5); Neutrophil % 67.9 % (47-70); POSITIVE DIFFERENTIAL YES; Platelet Count 110 K/mm3 (150-450); RBC Distribution Width CV 19.1 % (11.6-14.6); RBC Distribution Width SD 57.5 fl (35.1-43.9); Red Blood Count 3.39 M/mm3 (4.2-5.4); White Blood Count 2.7 K/mm3 (4.4-11.0)
[2025-02-26 15:24] LABS: International Normalized Ratio 1.1; Prothrombin Time (Protime)PT. 14.4 SECONDS (11.7-14.9)
[2025-02-26 16:20] LABS: CPK Total, Creatine Kinase 56 U/L (24-195); Ferritin 16 ng/mL (22-378)
[2025-02-26 17:09] LABS: ALB/GLOB Ratio 1.6 RATIO (0.9-2.4); AST(SGOT) 23 U/L (<=31); Alanine Aminotransfer ALT/SGPT 16 U/L (<=34); Albumin, Serum 3.8 g/dL (3.4-4.8); Alkaline Phosphatase 169 U/L (35-104); Anion Gap 10 (5-15); BUN 13 mg/dL (4-19); BUN/Creat Ratio 13.6 RATIO (10-20); CRP < 3.00 mg/L (0.0-3.0); Calcium,Total 9.4 mg/dL (7.6-11.0); Carbon Dioxide 22.7 mmol/L (21.0-32.0); Chloride 105 mmol/L (98-108); Creatinine, Serum 0.98 mg/dL (0.70-1.20); EST Glomerular Filtration Rate 62 (>60); Globulin 2.3 g/dL (2.2-4.2); Glucose 162 mg/dL (70-99); Potassium 3.6 mmol/L (3.3-5.1); Protein, Total 6.1 g/dL (5.9-8.4); Sodium Level 138 mmol/L (133-145); Total Bilirubin 0.87 mg/dL (0.00-1.30)
[2025-03-01 16:08] LABS: Ceruloplasmin 27.2 mg/dL (19.0-39.0); Immunoglobulin A 194 mg/dL (64-422); Transferrin 309 mg/dL (192-364)
== END | disposition home or self-care (01) ==
PROVIDERS: PCP Student in an Organized Health Care Education/Training Program
DX: K72.10 Chronic hepatic failure without coma (principal); I85.11 Secondary esophageal varices with bleeding; K74.60 Unspecified cirrhosis of liver
CPT/HCPCS: 36415; 80053; 82390; 82550; 82728; 82784; 83516; 84466; 85025; 85610; 86140

== ENCOUNTER → 2025-05-22 | Outpatient (CLI) | payer MEDICARE, SELFPAY ==
--- OUTSIDE RECORDS SUMMARY | 2025-05-22 11:33 | XMS RPT_ITS | CCD ---
Author Organization [facility] Care Team Providers Care Registration Representative Name Role Phone Reina Thomas PA-C Unavailable Juan Locke DO Primary Care Provider Dubow RP, Keti Unavailable Juan Locke DO Primary Care Provider Dubow RP, Keti Unavailable Juan Locke DO Primary Care Provider Dubow RP, Keti Unavailable Juan Locke DO Primary Care Provider Dubow RP, Keti Unavailable Dubow RP, Keti Unavailable Juan Locke DO Primary Care Provider Laura Zapien RN Unavailable Laura Zapien RN Unavailable Ronald Zimmer DO Unavailable Glenn Glez Unavailable Freddy JENKINS.Kavitha ARIAS Unavailable Nury Alexander APRN.CNP Unavailable Dr. Juan Locke DO Primary Care Provider Dr. Ronald Zimmer DO Attending Provider Dr. Ronald Zimmer DO Referring Provider Nasir Flanagan MD Emergency Provider David DOWNING, Dr. Barr Admit Provider David DOWNING, Dr. Barr Other Provider Suly SHELLEY, Dr. Anuj Dobbs Attending Provider David DOWNING, Dr. Barr Attending Provider David DOWNING, Dr. Barr Referring Provider Suly SHELLEY, Dr. Anuj Dobbs Referring Provider Suly SHELLEY, Dr. Anuj Dobbs Other Provider Chucky DOWNING, Dr. Martinez Referring Provider [place] YOUNGBLOOD-CDeann Attending Provider Stu SHELLEY, Dr. Vail Emergency Provider Ezequiel DOWNING, Dr. Villalpando Admit Provider Dr. Kwasi Nieves DO Attending Provider Ezequiel DOWNING, Dr. Villalpando Referring Provider Ezequiel DOWNING, Dr. Villalpando Other Provider Dr. Kwasi Nieves DO Other Provider Myrtle SHELLEY, Dr. Trisha Hinson Attending Provider Dr. Kwasi Nieves DO Attending Provider Dr. Trisha Iraheta MD Other Provider Dr. Juan Locke DO Primary Care Provider Dr. Ronald Zimmer DO Attending Provider [place] NON DESTRUCTIVE TESTING SCIENTIST-CDeann Referring Provider Juventino JENKINS.Karli ARIAS Unavailable Deann Haynes Referring Unavailable Deann Haynes Attending Unavailable Juan Locke Primary Care Unavailable Ronald Zimmer Referring Unavailable Glenn Glez Attending Unavailable Juan Locke Primary Care Unavailable Glenn Glez Attending Unavailable Juan Locke Primary Care Unavailable Locke, Juan Referring Unavailable Friend, Ronald Attending Unavailable Locke, Juan Primary Care Unavailable Brown, Hubert Referring Unavailable BrownHubert Attending Unavailable Locke, Juan Primary Care Unavailable Newton, Glenn Referring Unavailable Newton, Glenn Attending Unavailable Locke, Juan Primary Care Unavailable Newton, Glenn Referring Unavailable Newton, Glenn Attending Unavailable Locke, Juan Primary Care Unavailable Koram, Trisha Joya Attending Unavailable Jopperi, Kwasi Consulting Unavailable Jopperi, Kwasi Admitting Unavailable Jopperi, Kwasi Referring Unavailable Locke, Juan Primary Care Unavailable Amaya Cao NP Attending Unavailable Locke, Juan Primary Care Unavailable Locke, Juan Referring Unavailable Deann Haynes Attending Unavailable Locke, Juan Primary Care Unavailable Locke, Juan Referring Unavailable Mosteller, Momo Admitting Unavailable Mostjoaquin Momo Attending Unavailable Locke, Juan Primary Care Unavailable Mosteller, Momo Consulting Unavailable Friend, Ronald Attending Unavailable Anuj Tubbs Referring Unavailable KoAnuj martínez Consulting Unavailable Jopperi, Kwasi Consulting Unavailable Jopperi, Kwasi Admitting Unavailable Jopperi, Kwasi Referring Unavailable Jopperi, Kwasi Attending Unavailable Locke, Juan Primary Care Unavailable Anuj Tubbs Attending Unavailable Friend, Ronald Attending Unavailable Koram, Trisha Joya Consulting Unavailable Friend, Ronald Referring Unavailable Friend, Ronald Attending Unavailable Locke, Juan Primary Care Unavailable Koram, Trisha Joya Attending Unavailable Mosteller, Momo Admitting Unavailable Mosteller, Momo Attending Unavailable Mosteller, Momo Consulting Unavailable Locke, Juan Primary Care Unavailable Mosteller, Momo Referring Unavailable Mosteller, Momo Consulting Unavailable Mosteller, Momo Admitting Unavailable TessaoniPetar bautistaAnuj F Attending Unavailable Locke, Juan Primary Care Unavailable Yared Peraza Referring Unavailable Yared Peraza Attending Unavailable Locke, Juan Primary Care Unavailable Deann Haynes Attending Unavailable Locke, Juan Referring Unavailable Locke, Juan Primary Care Unavailable Friend, Ronald Attending Unavailable Locke, Juan Referring Unavailable Locke, Juan Primary Care Unavailable Newton, Glenn Attending Unavailable Locke, Juan Primary Care Unavailable Locke, Juan Referring Unavailable Friend, Ronald Attending Unavailable Locke, Juan Referring Unavailable Locke, Juan Primary Care Unavailable Locke, Juan Primary Care Unavailable Sanket Taveras Attending Unavailable Olcke, Juan Referring Unavailable Friend, Ronald Referring Unavailable Friend, Ronald Attending Unavailable Locke, Juan Primary Care Unavailable MERY HERNANDEZ Attending Unavailable LOCKE, JUAN L Primary Care Unavailable KIM WU Attending Unavail able LOCKE, JUAN L Primary Care Unavailable MERY HERNANDEZ Attending Unavailable ALBERTO LARKIN Referring Unavailable LOCKE, JUAN L Primary Care Unavailable KIM WU Attending Unavail able MERY HERNANDEZ Referring Unavailable LOCKE, JUAN L Primary Care Unavailable VISIONIMERY Attending Unavailable LOCKE, JUAN L Primary Care Unavailable LOCKE, JUAN L Primary Care Unavailable BOONE, BEATA Referring Unavailable LOCKE, JUAN L Primary Care Unavailable BOONE, BEATA Referring Unavailable LOCKE, JUAN L Primary Care Unavailable BOONE, BEATA Referring Unavailable BENJAMIN, NURY Referring Unavailable ALBERTO LARKIN Attending Unavailable LOCKE, JUAN L Primary Care Unavailable BENJAMIN, NURY Attending Unavailable LOCKE, JUAN L Primary Care Unavailable BENJAMIN, NURY Referring Unavailable LOCKE, JUAN L Primary Care Unavailable LOCKE, JUAN L Primary Care Unavailable BENJAMIN, NURY Referring Unavailable LOCKE, JUAN L Primary Care Unavailable LOCKE, JUAN L Primary Care Unavailable BOONE, BEATA Attending Unavailable LOCKE, JUAN L Referring Unavailable LOCKE, JUAN L Primary Care Unavailable LOCKE, JUAN L Primary Care Unavailable KEY LY Attending Unavailable LOCKE, JUAN L Attending Unavailable LOCKE, JUAN L Primary Care Unavailable LOCKE, JUAN L Primary Care Unavailable BENJAMIN, NURY Attending Unavailable LOCKE, JUAN L Primary Care Unavailable LOCKE, JUAN L Primary Care Unavailable BOONE, BEATA Referring Unavailable LOCKE, JUAN L Referring Unavailable LOCKE, JUAN L Primary Care Unavailable LOCKE, JUAN L Attending Unavailable LOCKE, JUAN L Primary Care Unavailable CONNOR GALVAN Attending Unavailable LOCKE, JUAN L Primary Care Unavailable LOCKE, JUAN L Primary Care Unavailable MERY HERNANDEZ Referring Unavailable LOCKE, JUAN L Primary Care Unavailable MERY HERNANDEZ Referring Unavailable LOCKE, JUAN L Primary Care Unavailable BOONE, BEATA Referring Unavailable LOCKE, JUAN L Primary Care Unavailable BOONE, BEATA Referring Unavailable BENJAMIN, NURY Attending Unavailable LOCKE, JUAN L Primary Care Unavailable LOCKE, JUAN L Primary Care Unavailable BOONE, BEATA Referring Unavailable LOCKE, JUAN L Primary Care Unavailable BOONE, BEATA Attending Unavailable LOCKE, JUAN L Primary Care Unavailable LOCKE, JUAN L Primary Care Unavailable BOONE, BEATA Referring Unavailable LOCKE, JUAN L Primary Care Unavailable BOONE, BEATA Referring Unavailable LOCKE, JUAN L Attending Unavailable LOCKE, JUAN L Primary Care Unavailable LOCKE, JUAN L Primary Care Unavailable BOONE, BEATA Referring Unavailable LOCKE, JUAN L Primary Care Unavailable BOONE, BEATA Referring Unavailable BOONE, BEATA Attending Unavailable LOCKE, JUAN L Primary Care Unavailable BOONE, BEATA Referring Unavailable LOCKE, JUAN L Primary Care Unavailable BOONE, BEATA Referring Unavailable LOCKE, JUAN L Primary Care Unavailable BOONE, BEATA Referring Unavailable LOCKE, JUAN L Primary Care Unavailable BOONE, BEATA Referring Unavailable LOCKE, JUAN L Referring Unavailable LOCKE, JUAN L Primary Care Unavailable LOCKE, JUAN L Primary Care Unavailable BOONE, BEATA Referring Unavailable LOCKE, JUAN L Primary Care Unavailable BOONE, BEATA Referring Unavailable LOCKE, JUAN L Primary Care Unavailable LOCKE, JUAN L Primary Care Unavailable BOONE, BEATA Referring Unavailable LOCKE, JUAN L Primary Care Unavailable BOONE, BEATA Attending Unavailable LOCKE, JUAN L Primary Care Unavailable LOCKE, JUAN L Referring Unavailable LOCKE, JUAN L Primary Care Unavailable MIGUEL ÁNGEL, PAVITHRA Attending Unavailable LOCKE, JUAN L Primary Care Unavailable BENJAMIN, NURY Attending Unavailable YAMILKA BOWDEN Attending Unavailable LOCKE, JUAN L Primary Care Unavailable BENJAMIN, NURY Attending Unavailable LOCKE, JUAN L Primary Care Unavailable BENJAMIN, NURY Attending Unavailable LOCKE, JUAN L Primary Care Unavailable BOONE, BEATA Referring Unavailable BENJAMIN, NURY Attending Unavailable LOCKE, JUAN L Primary Care Unavailable LOCKE, JUAN L Primary Care Unavailable BENJAMIN, NURY Referring Unavailable LOCKE, JUAN L Primary Care Unavailable BENJAMIN, NURY Referring Unavailable LOCKE, JUAN L Primary Care Unavailable BEATA BOONE Referring Unavailable JUAN LOCKE Attending Unavailable JUAN LOCKE Primary Care Unavailable Allergies Allergy Classification Reported Allergen(s) Allergy Type Date of Onset Reaction(s) Facility Adhesive Tape (3 sources) Adhesive Tape Substance Allergy 8 Rash [facility] Latex (3 sources) Latex Substance Allergy 7 Itching [facility] Mold Extract (3 sources) Mold Extract Drug Allergy 8 [facility] SITagliptin (3 sources) SITagliptin Drug Allergy 3 Intolerance [facility] Work Phone: (20 sources) mold extract; Translations: [MOLD] drug allergy 8 Unknown [facility] Work Phone: (20 sources) Adhesive Tape; Translations: [ADHESIVE TAPE (ROSINS)] Allergy to substance 8 Rash [facility] (20 sources) Latex; Translations: [LATEX] Drug Allergy 7 Itching [facility] (2 sources) Adhesive Tape; Translations: [adhesive tape] Allergy to substance 0 Rash [facility] (20 sources) SITagliptin; Translations: [SITAGLIPTIN] Drug Allergy 3 Intolerance [facility] Work Phone: Medications Current Medications Medication Drug Class(es) Dates Sig (Normalized) Sig (Original) acetaminophen 325 mg / HYDROcodone bitartrate 7.5 mg oral tablet (2 sources) Opioid Agonist Start: 05-26-2024 End: 06-02-2024 take 1 tablet by mouth every eight hours as needed for pain HYDROcodone-Acetam inophen (NORCO) 7.5-325 mg per tablet Indications: Intra-abdominal and pelvic swelling, mass and lump, unspecified site , Right lower quadrant abdominal pain Take 1 tablet by mouth every 8 hours as needed for pain for up to 7 days. 21 tablet 05/26/2024 06/02/2024 Active [id number] 200 actuat albuterol 0.09 mg/actuat metered dose inhaler (20 sources) beta2-Adrenergic Agonist Start: 02-20-2023 Albuterol Sulfate 90 mcg/actuation HFA aerosol inhaler Active 1 - 2 NMA INHALATION NEEDED as needed for ALLERGIES February 20, 2023 12:00am Start: 02-20-2023 Albuterol Sulf ate Active 1 - 2 PUFF INHALATION NEEDED February 19, 2023 11:00pm Start: 08-31-2020 End: 11-25-2024 take 2 puff(s) by inhalation every four hours as needed for wheezing albuterol HFA (VENTOLIN HFA) 90 mcg/actuation inhaler Inhale 2 Puffs as instructed every 4 hours as needed for wheezing/shortness of breath. 36 g 1 11/25/2024 Active Comment on above: Inhale 2 Puffs as in structed every 4 hours as needed for Wheezing/Shortness of Breath. Blood-Glucose Meter,Continuous (FREESTYLE THEE 3 READER) misc (20 sources) Start: Blood-Glucose Meter,Continuous (FREESTYLE THEE 3 READER) misc Indications: Uncontrolled type 2 diabetes mellitus with hyperglycemia (HCC) Use to check blood sugar at least four (4) times daily. 1 Each 05/12/2024 Active Blood-Glucose Sensor (FREESTYLE THEE 3 SENSOR) louis (20 sources) Start: Blood-Glucose Sensor (FREESTYLE THEE 3 SENSOR) louis Indications: Uncontrolled type 2 diabetes mellitus with hyperglycemia (HCC) Apply new sensor every fourteen (14) days to upper arm. 6 Each 4 05/12/2024 Active sugar-free cholestyramine resin 4000 mg powder for oral suspension (20 sources) Bile Acid Sequestrant Start: 025 End: take 4 g by mouth once daily PREVALITE 4 gram powder in packet Take 4 g by mouth once daily. 01/19/2025 Active cinnamon bark 500 mg oral capsule (1 source) Start: 018 take 350 mg by mouth once daily Cinnamon Bark Active 350 MG PO DAILY November 06, 2017 12:00am 0.5 ml dulaglutide 1.5 mg/ml auto-injector (20 sources) GLP-1 Receptor Agonist Start: 023 End: dulaglutide (TRULICITY) 0.75 mg/0.5 mL pen injector Indications: Uncontrolled type 2 diabetes mellitus with hyperglycemia (HCC) Inject 0.75 mg subcutaneously one time a week. Dx: Type 2 diabetes uncontrolled, Inject dose once per week. Discard Pen After 12 each 1 03/26/2025 Active Start: 07-27-2023 dulaglutide (T RULICITY) 0.75 mg/0.5 mL pen injector Indications: Uncontrolled type 2 diabetes mellitus with hyperglycemia (HCC) Inject 0.75 mg subcutaneously one time a week. Dx: Type 2 diabetes uncontrolled, Inject dose once per week. Discard Pen After 12 Each 1 07/27/2023 Active Comment on above: Inject 0.75 mg subcu taneously one time a week. Dx: Type 2 diabetes uncontrolled, Inject dose once per week. Discard Pen After DULoxetine 60 mg delayed release oral capsule (20 sources) Serotonin and Norepinephrine Reuptake Inhibitor Start: 09-30-19 End: 05-07-20 23 take 1 capsule by mouth once daily DULoxetine (CYMBALTA) 30 mg capsule Indications: Situational depression , KRISTINA (generalized anxiety disorder) , Panic attacks Take 1 capsule by mouth once daily. Take 1 capsule PO daily with 60 mg capsule to total 90 mg a day 90 capsule 3 09/30/2019 05/07/2023 Discontinued Start: 11-06-2017 End: 03-26-2025 take 1 capsule by mouth once daily DULoxetine (CYMBALTA) 60 mg capsule Take 1 capsule by mouth once daily. 90 capsule 3 03/26/2025 Active Start: 11-06-2017 take 90 mg by mouth once daily Duloxetine Active 90 MG PO DAILY November 06, 2017 12:00am Comment on above: Take 1 capsule by [facility] once daily. Take 1 capsule PO daily with 60 mg capsule to total 90 mg a day TAKE 1 CAPSULE DAILY WITH 30MG CAPSULES TO TOTAL 90MGA DAY TAKE 1 CAPSULE DAILY enteric contrast (will be provided with radiology test) (20 sources) Start: 08-19-2024 enteric contrast (will be provided with radiology test) For CT ABD/PEL W IVCON Routine order Administer, As Directed One Time Only, via Oral, Rectal, both Oral and Rectal, Enteric Tube, Stoma or Indwelling Catheter, Enteric Contrast as designated per enteric contrast guidelines 1 Each 08/19/2024 Active Start: 07-01-[address] (will be provided with radiology test) For CT CHESTABD/PEL W IVCON Routine order Administer, As Directed One Time Only, via Oral, Rectal, both Oral and Rectal, Enteric Tube, Stoma or Indwelling Catheter, Enteric Contrast as designated per enteric contrast guidelines 1 Each 07/01/2024 Active Start: 05-12-2024 End: 05-13-2024 enteric contrast (will be pr ovided with radiology test) Indications: Intra-abdominal and pelvic swelling, mass and lump, unspecified site , Right lower quadrant abdominal pain For CT ABD/PEL W IVCON Routine order Administer, As Directed One Time Only, via Oral, Rectal, both Oral and Rectal, Enteric Tube, Stoma or Indwelling Catheter, Enteric Contrast as designated per enteric contrast guidelines 1 Each 05/12/2024 05/13/2024 Active ergocalciferol 1.25 mg oral capsule (20 sources) Provitamin D2 Compound Start: 11-06-2017 End: 12-28-2024 take 1 capsule by mouth every week ergocalciferol 50,000 unit capsule (VITAMIN D2, DRISDOL) Take 1 capsule by mouth one time a week. 12 capsule 3 12/28/2024 Active Start: 11-06-2017 Ergocalciferol (Vitamin D2) 50,000 UNIT capsule Active 54845 U PO SA November 06, 2017 1:00am Comment on above: Take 1 capsule by mo ut one time a week. take 1 capsule by mo [facility] every week famotidine 40 mg oral tablet (19 sources) Histamine-2 Receptor Antagonist Start: 5 take 1 tablet by mouth at bedtime Famotidine 40 mg tablet Active 40 mg PO AT BEDTIME November 21, 2024 1:00am ferrous gluconate 324 mg oral tablet (20 sources) Start: 5 Ferrous Gluconate (FERGON) 324 mg (38 mg iron) tablet 324 mg. 11/10/2024 Active fexofenadine hydrochloride 180 mg oral tablet (19 sources) Histamine-1 Receptor Antagonist Start: 4 take 1 tablet by mouth once daily fexofenadine (JEZ) 180 mg tablet Take 180 mg by mouth once daily. 03/03/2024 Active furosemide 40 mg oral tablet (20 sources) Loop Diuretic Start: 5 End: 5 take 1 tablet by mouth once daily furosemide (LASIX) 40 mg tablet Take 1 tablet by mouth once daily. 90 tablet 1 03/26/2025 Active Start: 07-07-2024 End: 11-07-2024 Furosemide 40 mg tablet Disc ontinued 20 mg PO daily 15 July 07, 2024 3:15pm November 07, 2024 3:04pm Start: 05-26-2024 End: 11-17-2024 take 1 tablet by mouth once daily furosemide (LASIX) 20 mg tablet Indications: Hypotension, unspecified hypotension type , Portal venous hypertension (HCC) Take 1 tablet by mouth once daily. 30 tablet 05/26/2024 11/17/2024 Discontinued Start: 05-06-2024 End: 06-10-2024 take 1 tablet by mouth once daily furosemide (LASIX) 40 mg tablet Take 1 tablet by mouth once daily. 90 tablet 1 05/06/2024 06/10/2024 Discontinued Start: 04-02-2024 End: 07-07-2024 take 1 tablet by mouth twice daily Furosemide 40 mg Tablet Discontinued 40 mg PO TWICE DAILY 60 April 02, 2024 12:00am July 07, 2024 3:16pm Start: 03-01-2024 End: 05-12-2024 take 2 tablets by mouth once daily furosemide (LASIX) 20 mg tablet Take 40 mg by mouth once daily. 03/01/2024 05/05/2024 Discontinued Start: 03-01-2024 End: 04-02-2024 take 1 tablet by mouth once daily Furosemide (Lasix) 20 mg tablet Discontinued 20 mg PO DAILY March 01, 2024 12:00am April 02, 2024 3:23pm iv contrast (will be provide d with radiology test) (20 sources) Start: 08-19-2024 iv contrast (w ill be provided with radiology test) CT ABD/PEL -Inject, intravenously, once for 1 dose.No IV access, insert saline lock prior to the beginning of sedation, infusion, injection of imaging exam. Discontinue saline lock post exam. If Pt. has a central line or IVAD, may access for administration according to line specific nursing protocol. Once exam is complete flush line and de-access according to line specific nursing protocol in the CT contrast administration guidelines link. 1 Each 08/19/2024 Active Start: 07-01-2024 iv contrast (w ill be provided with radiology test) CT Chest ABD/PEL-Inject, intravenously, once for 1 dose.No IV access, insert saline lock prior to the beginning of sedation, infusion, injection of imaging exam. Discontinue saline lock post exam. If Pt. has a central line or IVAD, may access for administration according to line specific nursing protocol. Once exam is complete flush line and de-access according to line specific nursing protocol in the CT contrast administration guidelines link. 1 Each 07/01/2024 Active Start: 05-12-2024 End: 05-13-2024 iv contrast (will be provide d with radiology test) Indications: Intra-abdominal and pelvic swelling, mass and lump, unspecified site , Right lower quadrant abdominal pain CT ABD/PEL -Inject, intravenously, once for 1 dose.No IV access, insert saline lock prior to the beginning of sedation, infusion, injection of imaging exam. Discontinue saline lock post exam. If Pt. has a central line or IVAD, may access for administration according to line specific nursing protocol. Once exam is complete flush line and de-access according to line specific nursing protocol in the CT contrast administration guidelines link. 1 Each 05/12/2024 05/13/2024 Active Bpklr-Iuydy-3-Zic-Nle-Vpjyei (2 sources) Start: 11-06-2017 Vwidn-Zhedc-0-Gqc-Exv-Wosvmt Active 1 EACH PO DAILY November 06, 2017 12:00am levothyroxine sodium 0.137 m g oral tablet (20 sources) l-T hyr oxi ne Start: 11-25-2024 take 1 tablet by mouth once daily in the morning SYNTHROID 137 mcg tablet Indications: Hypothyroidism, acquired Take 1 tablet by mouth once daily. In the morning 90 tablet 3 11/25/2024 Active Start: 12-30-2023 End: 02-09-2025 take 1 tablet by mouth once daily Levothyroxine (Synth roid) 125 mcg tablet Discontinued 125 ug PO DAILY February 27, 2024 12:00am February 09, 2025 12:06pm Start: 09-15-2020 End: 12-30-2023 take 1 tablet by mouth once daily for thyroid dysfunction SYNTHROID 137 mcg tablet Indications: Hypothyroidism, acquired Take 1 tablet by mouth once daily. Take on empty stomach. For thyroid. 30 tablet 3 09/15/2020 10/30/2021 Discontinued Start: 11-06-2017 End: 2024 Levothyroxine 25 MCG tablet Discontinued 137 ug PO DAILY November 06, 2017 1:00am 2024 5:38pm Start: 11-06-2017 take 137 ug by mouth once naresh y Levothyroxine Active 137 MCG PO DAILY November 06, 2017 12:00am Start: 11-06-2017 take 25 ug by mouth once daily Levothyroxine Active 25 MCG PO DAILY November 06, 2017 12:00am Comment on above: Take 1 tablet by mirella th once daily. Take on empty stomach. For thyroid. take 1 tablet by mirella th once daily ON AN EMPTY STOMACH FOR THYROID Take 1 tablet by mirella th once daily. Take on empty stomach. For Thyroid methocarbamol 500 mg oral tablet (20 sources) Muscle Relaxant Start: 01-22-20 take 1 tablet by mouth three times daily as needed methocarbamol (ROBAXIN) 500 mg tablet Indications: Acute midline low back pain without sciatica Take 1 tablet by mouth three times a day as needed. 35 tablet 01/21/2025 Active midodrine hydrochloride 5 mg oral tablet (20 sources) alpha-Adrenergic Agonist Start: 11-10-19 End: 02-10-20 take 1 tablet by mouth three times daily midodrine (PROAMITINE) 5 mg tablet Take 5 mg by mouth three times a day. 11/10/2024 Active naproxen 500 mg oral tablet (2 sources) Nonsteroidal Anti-inflammatory Drug Start: 01-22-20 End: 02-05-20 take 1 tablet by mouth twice daily as needed for pain naproxen (NAPROSYN) 500 mg tablet Indications: Acute midline low back pain without sciatica Take 1 tablet by mouth two times a day as needed (FOR PAIN - TAKE WITH FOOD.) for up to 14 days. 28 tablet 01/21/2025 02/04/2025 Active omeprazole 40 mg delayed release oral capsule (20 sources) Proton Pump Inhibitor Start: 11-22-19 take 1 capsule by mouth twice daily Omeprazole 40 mg capsule,delayed release(DR/EC) Active 40 mg PO TWICE A DAY November 21, 2024 1:00am Start: 11-10-2024 End: 11-21-2024 take 2 capsules by mouth once daily Omeprazole 20 mg capsule,delayed release(DR/EC) Discontinued 40 mg PO DAILY 60 30 November 10, 2024 4:53pm November 21, 2024 11:25pm Start: 11-06-2017 End: 11-10-2024 take 1 capsule by mouth once daily Omeprazole 20 mg capsule,delayed release(DR/EC) Discontinued 20 mg PO DAILY February 17, 2024 2:38pm November 10, 2024 4:53pm Comment on above: Take 20 mg by mouth once daily. oxyCODONE hydrochloride 5 mg oral tablet (20 sources) Opioid Agonist Start: 08-28-2024 End: 09-06-2024 take 1 tablet by mouth every eight hours as needed oxyCODONE IR (ROXICODONE) 5 mg immediate release tablet Indications: Closed fracture of left upper extremity with routine healing, subsequent encounter Take 1-2 tablets by mouth every 8 hours as needed for pain for up to 5 days. 26 tablet 09/01/2024 09/06/2024 Active Start: 08-26-2024 End: 11-07-2024 take 1 tablet by mouth every six hours as needed for pain Oxycodone 5 mg tablet Discontinued 5 mg PO EVERY 6 HOURS as needed for pain 10 August 26, 2024 November 08, 2024 12:02am predniSONE 20 mg oral tablet (1 source) Start: 10-17-2023 End: 10-21-2023 take 2 tablets by mouth once daily at mealtime predniSONE (DELTASONE) 20 mg tablet Indications: Sinobronchitis Take 2 tablets by mouth once daily for 4 days. Take daily with food. 8 tablet 0 10/17/2023 10/21/2023 Active Comment on above: Take 2 tablets by [facility] once daily for 4 days. Take daily with food. propranolol hydrochloride 10 mg oral tablet (20 sources) beta-Adrenergi c David Start: 08-12-2024 End: 11-17-2024 take 0.5 tablet by mouth three times daily propranolol (INDERAL) 10 mg tablet Take 0.5 tablets by mouth three times a day. 08/12/2024 11/17/2024 Discontinued Start: 07-08-2024 End: 08-12-2024 take 1 tablet by mouth twice daily propranolol (INDERAL) 10 mg tablet Take 1 tablet by mouth two times a day. 180 tablet 1 07/08/2024 08/12/2024 Discontinued (Adjust Sig - Block E-Cancel) Start: 04-02-2024 End: 03-26-2025 take 1 tablet by mouth three times daily propranolol (INDERAL) 10 mg tablet Take 1 tablet by mouth three times a day. 270 tablet 1 03/26/2025 Active spironolactone 50 mg oral tablet (20 sources) Aldosterone Antagonist Start: 07-07-2024 Spironolactone 50 mg tablet Active 50 mg PO TWICE A DAY July 07, 2024 3:15pm Hold if serum POTASSIUM is more than 5.1 Start: 06-12-2024 End: 12-27-2024 take 2 tablets by mouth once daily spironolactone (ALDACTONE) 50 mg tablet Indications: Portal venous hypertension (HCC) Take 2 tablets by mouth once daily. 60 tablet 2 09/28/2024 11/17/2024 Discontinued Start: 05-12-2024 End: 08-10-2024 take 1.5 tablets by mouth once daily spironolactone (ALDACTONE) 50 mg tablet Indications: Portal venous hypertension (HCC) Take 1.5 tablets by mouth once daily. 45 tablet 2 05/12/2024 06/12/2024 Discontinued Start: 04-03-2024 End: 07-07-2024 take 5.1 tablets by mouth once daily Spironolactone 50 mg tablet Discontinued 75 mg PO DAILY April 03, 2024 12:00am July 07, 2024 3:16pm Hold if serum POTASSIUM is more than 5.1 Start: 04-02-2024 End: 05-12-2024 take 1 tablet by mouth twice daily Spironolactone 25 mg Tablet Discontinued 25 mg PO TWICE A DAY 60 April 02, 2024 12:00am April 03, 2024 1:03pm sulfamethoxazole 800 mg / trimethoprim 160 mg oral tablet (3 sources) Dihydrofolate Reductase Inhibitor Antibacterial, Sulfonamide Antimicrobial Start: 05-19-2025 End: 05-26-2025 take 1 tablet by mouth twice daily sulfamethoxazole-trimethoprim (BACTRIM DS) 800-160 mg per tablet Take 1 tablet by mouth two times a day for 7 days. 14 tablet 05/19/2025 05/26/2025 Active Start: 12-06-2021 End: 12-13-2021 take 1 tablet by mouth twice daily sulfamethoxazole-trimethoprim (BACTRIM D S) 800-160 mg per tablet Take 1 tablet by mouth twice daily for 7 days. 14 tablet 0 12/06/2021 12/13/2021 Active Comment on above: Take 1 tablet by [facility] twice daily for 7 days. vitamin b12 1 mg/ml injectable solution (20 sources) Vitamin B12 Start: 11-25-2024 End: 12-21-2025 cyanocobalamin 1,000 mcg injection Start: 11-25-2024 End: 10-27-2025 1,000 mcg, INTRAMUSCULAR, EV LINDSEY 4 WEEKS, 12 doses, First dose on Sat11/25/24 at 1330, Last dose on Sat09/29/25 at 1330 Start: 02-13-2024 take 1 capsule by [facility] once daily Cyanocobalamin (Vitamin B-12) 1,000 mcg capsule Active 1000 ug PO DAILY February 13, 2024 12:00am End: 06-10-2024 take 1 tablet by mouth once daily cyanocobalamin (VITAMIN B-12) 1,000 mcg tab Take 1,000 mcg by mouth once daily. 06/10/2024 Discontinued Comment on above: Take 1,000 mcg by [facility] once daily. zolpidem tartrate 10 mg oral tablet (20 sources) gamma-Aminobutyric Acid-ergic Agonist Start: 06-10-2024 End: 05-14-2025 take 1 tablet by mouth every 30 days at bedtime as needed zolpidem (AMBIEN) 10 mg Indications: Situational insomnia Take 1 tablet by mouth at bedtime as needed (insomnia) for up to 30 days. 30 tablet 2 04/14/2025 Active Start: 12-27-2017 End: 06-10-2024 take 1 tablet by mouth every 30 days at bedtime as needed zolpidem (AMBIEN) 5 mg tablet Indications: Situational insomnia Take 1 tablet by mouth at bedtime as needed for sedation for up to 30 days. 30 tablet 5 03/05/2023 06/10/2024 Discontinued Start: 12-27-2017 End: 01-08-2022 take 1 tablet by mouth at bedtime as needed zolpidem (AMBIEN) 5 mg tablet Indications: Primary insomnia Take 1 tablet by mouth at bedtime as needed for up to 196 days. 90 tablet 1 06/30/2019 01/08/2022 Discontinued Comment on above: Take 1 tablet by mirella th at bedtime as needed for up to 196 days. Take by mouth. Take 1 tablet by mirella th at bedtime as needed for sedation for up to 30 days. Completed/Discontinued Medications Medication Drug Class(es) Dates Sig (Normalized) Sig (Original) acetaminophen 250 mg / aspirin 250 mg / caffeine 65 mg oral tablet (6 sources) Platelet Aggregation Inhibitor, Nonsteroidal Anti-inflammatory Drug, Central Nervous System Stimulant, Methylxanthine Start: 11-06-2017 End: 02-17-2024 Aspirin-Acetaminop hen-Caffeine 1 EACH tablet Discontinued 1 NMA PO NEEDED as needed for Pain November 06, 2017 1:00am February 17, 2024 2:37pm Start: 11-06-2017 Aspirin-Acetam inophen-Caffeine Active 1 EACH PO NEEDED November 06, 2017 12:00am OXYCODONE-ACETAMINOPHEN (2 sources) Opioid Agonist Start: 02-07-2018 End: 02-14-2018 take 1-2 tablets by mouth every four hours as needed for pain PERCOCET 5-325 MG TABS Take 1-2 tablets by mouth every 4 hours as needed for pain OXYCODONE-ACETAMINOPHEN [id number] Reina Thomas PA-C Start: 02-07-2018 PERCOCET 5-325 MG TABS 1-2 tablets every 4-6 hours as needed OXYCODONE-ACETAMINOPHEN [id number] Reina Thomas PA-C amoxicillin 875 mg / clavulanate 125 mg oral tablet (13 sources) Penicillin-class Antibacterial Start: 2024 End: 02-13-2024 take 1 tablet by mouth every twelve hours Amoxicillin-Pot Clavulanate 875-125 mg tablet Discontinued 875 mg PO Q12H 2024 12:00am February 13, 2024 11:13am Start: 10-17-2023 End: 10-24-2023 take 1 tablet by mouth twice daily amoxicillin-clavulanate potassium (AUGMENTIN) 875-125 mg per tablet Indications: Sinobronchitis Take 1 tablet by mouth two times a day for 7 days. 14 tablet 0 10/17/2023 10/24/2023 Active Start: 08-19-2023 End: 08-26-2023 take 1 tablet by mouth twice daily amoxicillin-clavulanate potassium (AUGMENTIN) 875-125 mg per tablet Indications: Rhinosinusitis Take 1 tablet by mouth two times a day for 7 days. 14 tablet 0 08/19/2023 08/26/2023 Active Start: 06-26-2021 End: 07-06-2021 take 1 tablet by mouth twice daily amoxicillin-clavulanic acid (AUGMENTIN) 875-125 mg per tablet Indications: Diverticulitis Take 1 tablet by mouth twice daily for 10 days. 20 tablet 06/26/2021 07/06/2021 Comment on above: Take 1 tablet by [facility] two times a day for 7 days. ascorbic acid 500 mg oral tablet (4 sources) Vitamin C Start: 02-13-20 End: 11-07-19 take 1 tablet by mouth once daily Ascorbic Acid (Vitamin C) 500 mg tablet Discontinued 500 mg PO DAILY February 13, 2024 12:00am November 07, 2024 2:59pm benzonatate 100 mg oral capsule (20 sources) Non-narcotic Antitussive Start: 11-09-19 End: 04-30-20 take 1 capsule by mouth every eight hours as needed benzonatate (TESSALON PERLES) 100 mg capsule Take 1 capsule by mouth three times daily as needed for cough. 14 capsule 11/09/2022 03/31/2024 Discontinued Comment on above: Take 1 capsule by [facility] three times daily as needed for cough. 24 hr budesonide 9 mg extended release oral tablet (10 sources) Corticosteroid Start: 03-07-20 End: 03-26-20 take 1 tablet by mouth once daily Budesonide 9 mg tablet,delayed and ext.release Discontinued 9 mg PO DAILY March 22, 2023 12:00am March 26, 2023 11:04am buPROPion hydrochloride 100 mg oral tablet (20 sources) Aminoketone Start: 11-07-19 End: 02-10-20 take 1 tablet by mouth once daily in the evening Bupropion Hcl 100 mg tablet Discontinued 100 mg PO EVERY EVENING November 07, 2024 1:00am February 09, 2025 12:44pm Start: 08-31-2020 End: 02-09-2025 buPROPion (WELLBUTRIN) 100 m g tablet Indications: Situational depression Take 2 tablets to total 200 mg in the morning and 1 tablet in the evening, total of 300 mg a day 270 tablet 3 05/26/2024 Active Start: 11-06-2017 End: 02-27-2024 take 1 tablet by mouth once daily Bupropion Hcl 150 MG tablet sustained-release 12 hr Discontinued 150 mg PO DAILY November 06, 2017 1:00am February 27, 2024 5:47pm Comment on above: Take 2 tablets to to janice 200 mg in the morning and 1 tablet in the evening, total of 300 mg a day Calcium Carbonate / vitamin D3 (20 sources) End: 06-10-2024 take 2 tablets by mouth once daily calcium carbonate/vitamin D3 (CALCIUM 500 + D, D3, ORAL) Take 2 tablets by mouth once daily. 06/10/2024 Discontinued take 2 tablets by mouth once renetta ly calcium carbonate/vitamin D3 (CALCIUM 500 + D, D3, ORAL) Take 2 tablets by mouth once daily. Active take 2 tablets by mouth once renetta ly calcium carbonate/vitamin D3 (CALCIUM 500 + D, D3, ORAL) Take 2 tablets by mouth once daily. 0 Active Comment on above: Take 2 tablets by [facility] once daily. cephalexin 500 mg oral capsule (2 sources) Cephalosporin Antibacterial Start: End: take 1 capsule by mouth twice daily cephALEXin (KEFLEX) 500 mg capsule Take 1 capsule by mouth twice daily for 7 days. 14 capsule 0 05/29/2022 06/05/2022 Comment on above: Take 1 capsule by mo [facility] twice daily for 7 days. cholecalciferol 0.025 mg oral capsule (4 sources) Vitamin D Start: 024 End: take 1 capsule by mouth once daily Cholecalciferol (Vitamin D3) 25 mcg (1,000 unit) capsule Discontinued 25 ug PO DAILY February 13, 2024 12:00am November 07, 2024 3:00pm CINNAMON TABS (1 source) Non-Standardized Food Allergenic Extract Start: 018 CINNAMON TABS unkdi CINNAMON TABS [id number] Severino Jeffers MD clobetasol propionate 0.5 mg/ml topical solution (20 sources) Corticosteroid Start: End: Clobetasol Propionate (TEMOVATE) 0.05 % external solution Indications: Scalp lesion Apply 1 application to affected area once daily as needed (scalp rash). 50 mL 1 07/27/2023 06/10/2024 Discontinued Comment on above: Apply 1 application to affected area once daily as needed (scalp rash). empagliflozin 25 mg oral tablet (20 sources) Sodium-Glucose Cotransporter 2 Inhibitor Start: End: take 1 tablet by mouth once daily, then take 1 tablet by mouth once daily in the morning empagliflozin (JARDIANCE) 25 mg tablet Indications: Controlled type 2 diabetes mellitus without complication, without long-term current use of insulin (HCC) Take 1 tablet by mouth once daily. Take 1 tablet once daily in the morning 90 tablet 1 05/01/2023 Active Start: 10-17-2020 End: 10-10-2023 take 1 tablet by mouth once daily Empagliflozin (Jardiance) 10 mg tablet Discontinued 10 mg PO DAILY February 20, 2023 12:00am October 10, 2023 3:23pm Comment on above: Take 1 tablet by mirella th once daily. Take 1 tablet once daily in the morning ferrous sulfate 325 mg oral tablet (20 sources) End: 03-31-2024 take 1 tablet by mouth once daily at breakfast ferrous sulfate 325 mg (65 mg iron) tablet Take 325 mg by mouth daily with breakfast. 03/31/2024 Discontinued Comment on above: Take 325 mg by mouth daily with breakfast. Handicap Placard (6 sources) Start: 03-06-2019 End: 11-07-2024 Handicap Placard Discontinued 0 .ROUTE .COMPLEX 1 March 06, 2019 12:00am November 07, 2024 3:01pm 12weeks Start: 03-06-[address] Active 0 .ROUTE .COMPLEX 1 March 05, 2019 11:00pm 12weeks hydrocortisone 1.67 mg/ml enema (11 sources) Corticosteroid Start: 03-30-2024 End: 04-13-2024 Hydrocortisone 100 mg/60 mL enema Discontinued 100 mg RC TWICE A DAY 1680 March 30, 2024 12:00am April 12, 2024 12:00am April 13, 2024 12:03am Start: 08-31-2020 End: 01-08-2022 take 25 mg rectal route every twelve hours as needed hydrocortisone (ANUCORT-HC) 25 mg suppository 1 Suppository by RECTAL route twice daily as needed. 24 Each 1 08/31/2020 01/08/2022 Discontinued Comment on above: 1 Suppository by REC JANICE route twice daily as needed. 3 ml insulin glargine 100 unt/ml pen injector (5 sources) Insulin Analog Start: End: inject 10 [IU] by subcutaneous injection once daily at bedtime insulin glargine (LANTUS SOLOSTAR U-100 INSULIN) 100 unit/mL (3 mL) Indications: Uncontrolled type 2 diabetes mellitus with hyperglycemia (HCC) Inject 10 Units subcutaneously daily at bedtime. 5 Pen 3 09/04/2021 01/05/2022 Discontinued Comment on above: Inject 10 Units subc utaneously daily at bedtime. 10 ml iron sucrose 20 mg/ml injection (14 sources) Parenteral Iron Replacement Start: 025 End: 025 200 mg, INTRAVENOUS, ONCE, 1 dose, On Sat04/06/25 at 1330, Please conduct a 30 minute post dose observation. Start: 04-01-2025 End: 04-01-2025 200 mg, INTRAVENOUS, ONCE, 1 dose, On Sat04/01/25 at 1400, Please conduct a 30 minute post dose observation. Start: 03-26-2025 End: 03-26-2025 200 mg, INTRAVENOUS, ONCE, 1 dose, On Sat03/26/25 at 1430, Please conduct a 30 minute post dose observation. Start: 03-24-2025 End: 03-24-2025 200 mg, INTRAVENOUS, ONCE, 1 dose, On Sat03/24/25 at 1400, Please conduct a 30 minute post dose observation. Start: 03-22-2025 End: 03-22-2025 200 mg, INTRAVENOUS, ONCE, 1 dose, On Sat03/22/25 at 1400, Please conduct a 30 minute post dose observation. Start: 12-15-2024 End: 12-15-2024 200 mg, INTRAVENOUS, ONCE, 1 dose, On Sat12/15/24 at 1330, Please conduct a 30 minute post dose observation. Start: 12-11-2024 End: 12-11-2024 200 mg, INTRAVENOUS, ONCE, 1 dose, On Sat12/11/24 at 1430, Please conduct a 30 minute post dose observation. Start: 11-18-2024 End: 11-18-2024 200 mg, INTRAVENOUS, ONCE, 1 dose, On Sat11/18/24 at 1530, Please conduct a 30 minute post dose observation. Start: 10-13-2024 End: 10-13-2024 200 mg, INTRAVENOUS, ONCE, 1 dose, On Sat10/13/24 at 1500, Please conduct a 30 minute post dose observation. Start: 10-09-2024 End: 10-09-2024 200 mg, INTRAVENOUS, ONCE, 1 dose, On Sat10/09/24 at 1500, Please conduct a 30 minute post dose observation. Start: 10-05-2024 End: 10-05-2024 200 mg, INTRAVENOUS, ONCE, 1 dose, On Sat10/05/24 at 1500, Please conduct a 30 minute post dose observation. Start: 10-01-2024 End: 10-01-2024 200 mg, INTRAVENOUS, ONCE, 1 dose, On Sat10/01/24 at 1430, Please conduct a 30 minute post dose observation. Start: 09-28-2024 End: 09-28-2024 200 mg, INTRAVENOUS, ONCE, 1 dose, On Sat09/28/24 at 1430, Please conduct a 30 minute post dose observation. Start: 08-24-2024 End: 08-24-2024 200 mg, INTRAVENOUS, ONCE, 1 dose, On Sat08/24/24 at 1000, Please conduct a 30 minute post dose observation. iron sucrose 300 mg in NaCl 0.9% 250 mL (VENOFER) (3 sources) Start: 05-26-2024 End: 05-26-2024 300 mg, INTRAVENOUS, at 166. 67 mL/hr, Administer over 90 Minutes, ONCE, 1 dose, On Tu05/26/24 at 1230, Approx Total Volume - Expires: 05/27/24 @ 1845 Please conduct a 30 minute post dose observation. Start: 05-15-2024 End: 05-15-2024 300 mg, INTRAVENOUS, at 166. 67 mL/hr, Administer over 90 Minutes, ONCE, 1 dose, On Sat05/15/24 at 1100, Approx Total Volume - Expires: 05/16/24 @ 1055 Please conduct a 30 minute post dose observation. Start: 05-08-2024 End: 05-08-2024 300 mg, INTRAVENOUS, at 166. 67 mL/hr, Administer over 90 Minutes, ONCE, 1 dose, On Sat05/08/24 at 1400, Please conduct a 30 minute post dose observation. iron sucrose iv piggyback 20 0 mg in NaCl 0.9% 100 mL (VENOFER) (6 sources) Start: 03-18-2024 End: 03-18-2024 iron sucrose iv piggyback 20 0 mg in NaCl 0.9% 100 mL (VENOFER) Start: 03-10-2024 End: 03-10-2024 iron sucrose iv piggyback 20 0 mg in NaCl 0.9% 100 mL (VENOFER) Start: 03-05-2024 End: 03-05-2024 iron sucrose iv piggyback 20 0 mg in NaCl 0.9% 100 mL (VENOFER) Start: 02-25-2024 End: 02-25-2024 iron sucrose iv piggyback 20 0 mg in NaCl 0.9% 100 mL (VENOFER) Start: 01-17-2024 End: 01-17-2024 iron sucrose iv piggyback 20 0 mg in NaCl 0.9% 100 mL (VENOFER) Start: 01-15-2024 End: 01-15-2024 iron sucrose iv piggyback 20 0 mg in NaCl 0.9% 100 mL (VENOFER) KRILL OIL ORAL (20 sources) End: 03-31-2024 take 1 capsule by mouth every week KRILL OIL ORAL Take 1 capsule by mouth one time a week. 03/31/2024 Discontinued End: 03-31-2024 take 1 capsule by mouth every week KRILL OIL ORAL Take 1 capsule by mouth one time a week. 0 03/31/2024 Discontinued take 1 capsule by mo ut every week KRILL OIL ORAL Take 1 capsule by mouth one time a week. 0 Active take 1 capsule by mo uth once daily KRILL OIL ORAL Take 1 capsule by mouth once daily. 0 Active Comment on above: Take 1 capsule by mo [facility] once daily. Take 1 capsule by mo [facility] one time a week. Bnkxw-Texdu-9-Dha-E pa-Lipids 1 EACH capsule (4 sources) Start: 8 End: 4 take 1 capsule by mouth once daily Ynvnk-Ksnta-6-Dha-Epa -Lipids 1 EACH capsule Discontinued 1 NMA PO DAILY November 06, 2017 1:00am October 10, 2023 3:24pm losartan potassium 50 mg oral tablet (20 sources) Angiotensin 2 Receptor David Start: 8 End: 4 take 1 tablet by mouth once daily Losartan 50 MG tablet Discontinued 50 mg PO DAILY November 06, 2017 1:00am April 02, 2024 3:24pm Comment on above: Take 1 tablet by [facility] once daily. magnesium (1 source) Start: 8 MAGNESIUM CAPS unkdi MAGNESIUM CAPS [id number] Severino Jeffers MD Magnesium Oxide-Mg Amino Acid Chelate (MAGNESIUM) 300 mg cap (20 sources) Start: 8 End: 4 take 1 capsule by mouth once daily Magnesium Oxide-Mg Amino Acid Chelate (MAGNESIUM) 300 mg cap Take 300 mg by mouth once daily. 11/06/2017 06/10/2024 Discontinued Start: 11-06-2017 take 1 capsule by [facility] once daily Magnesium Oxide-Mg Amino Acid Chelate (MAGNESIUM) 300 mg cap Take 300 mg by mouth once daily. 11/06/2017 Active Start: 11-06-2017 take 1 capsule by [facility] once daily Magnesium Oxide-Mg Amino Acid Chelate (MAGNESIUM) 300 mg cap Take 300 mg by mouth once daily. 0 11/06/2017 Active Start: 11-06-2017 Magnesium Oxid e-Mg Amino Acid Chelate (MAGNESIUM) 300 mg cap MAGNESIUM CAPS unkdi MAGNESIUM CAPS [id number] Severino Jeffers MD 0 11/06/2017 Active Comment on above: MAGNESIUM CAPS unkdi MAGNESIUM CAPS [id number] Severino Jeffers MD Take 300 mg by mouth once daily. MED-A-RED (1 source) Start: 12-27-2017 MED-A-RED MED-A-RED Severino Jeffers MD mesalamine 1000 mg rectal suppository (10 sources) Aminosalicylate Start: 05-01-2023 End: 05-22-2023 Mesalamine 1,000 mg suppository Discontinued 1 g RC AT BEDTIME May 01, 2023 4:49pm May 21, 2023 12:00am May 22, 2023 12:03am Start: 05-01-2023 End: 05-22-2023 Mesalamine Discontinued 1 GM RC AT BEDTIME May 01, 2023 3:49pm May 21, 2023 11:03pm Start: 03-26-2023 End: 04-16-2023 Mesalamine 1,000 mg supposit ory Discontinued 1 g RC AT BEDTIME March 26, 2023 12:00am April 15, 2023 12:00am April 16, 2023 12:04am Start: 03-26-2023 End: 04-16-2023 Mesalamine Discontinued 1 GM RC AT BEDTIME March 25, 2023 11:00pm April 15, 2023 11:04pm metFORMIN hydrochloride 1000 mg oral tablet (20 sources) Biguanide Start: 11-06-2017 End: 10-10-2023 take 1 tablet by mouth twice daily at mealtime Metformin 1,000 MG tablet Discontinued 1000 mg PO TWICE DAILY WITH MEALS November 06, 2017 1:00am October 10, 2023 3:24pm Comment on above: Take 1 tablet by mirella twice daily with meals. potassium chloride 10 meq extended release oral tablet (20 sources) Start: 04-02-2024 End: 04-03-2024 take 1 tablet by mouth once daily Potassium Chloride 10 mEq tablet extended release Discontinued 10 meq PO DAILY April 02, 2024 12:00am April 03, 2024 1:02pm pravastatin sodium 40 mg oral tablet (7 sources) HMG-CoA Reductase Inhibitor Start: 08-31-2020 End: 01-08-2022 take 1 tablet by mouth once daily pravastatin (PRAVACHOL) 40 mg tablet Take 1 tablet by mouth once daily. 90 tablet 1 08/31/2020 01/08/2022 Discontinued Comment on above: Take 1 tablet by mirella once daily. saccharomyces boulardii 250 mg oral capsule (20 sources) Start: 10-11-2021 End: 05-07-2023 take 1 capsule by mouth once daily Saccharomyces boulardii (FLORASTOR) 250 mg capsule Take 1 capsule by mouth once daily. 90 capsule 2 11/28/2022 05/07/2023 Discontinued Comment on above: Take 1 capsule by mo [facility] once daily. SITagliptin 100 mg oral tablet (5 sources) Dipeptidyl Peptidase 4 Inhibitor Start: 03-05-2023 End: 04-30-2023 take 1 tablet by mouth once daily SITagliptin phosphate (JANUVIA) 100 mg tablet Indications: Controlled type 2 diabetes mellitus without complication, without long-term current use of insulin ([facility]) Take 1 tablet by mouth once daily. Daily with supper 90 tablet 1 03/05/2023 04/30/2023 Discontinued Comment on above: [facility] Daily with supper SUMAtriptan 25 mg oral tablet (20 sources) Serotonin-1b and Serotonin-1d Receptor Agonist Start: 08-31-2020 End: 06-10-2024 SUMAtriptan (IMITREX) 25 mg tablet TAKE 1 TABLET NEEDED FORMIGRAINE HEADACHE (SEE ADMINISTRATION INSTRUCTIONS) 18 tablet 3 08/31/2020 10/04/2021 Discontinued Comment on above: TAKE 1 TABLET NEE DED FORMIGRAINE HEADACHE (SEE ADMINISTRATION INSTRUCTIONS) vancomycin 125 mg oral capsule (6 sources) Glycopeptide Antibacterial Start: 03-12-2024 End: 03-31-2024 take 1 capsule by mouth every six hours Vancomycin 125 mg capsule Discontinued 125 mg PO EVERY 6 HOURS 56 14 March 12, 2024 12:00am March 25, 2024 12:00am March 26, 2024 12:05am VIT C/VIT E/LUTEIN/MIN/OMEGA- 3 (OCUVITE ORAL) (7 sources) End: 01-08-2022 VIT C/VIT E/LUTEIN/MIN/OMEGA- 3 (OCUVITE ORAL) Take by mouth. 01/08/2022 Discontinued End: 01-08-2022 VIT C/VIT E/LUTEIN/MIN/OMEGA -3 (OCUVITE ORAL) Take by mouth. 0 01/08/2022 Discontinued VIT C/VIT E/LUTE IN/MIN/OMEGA-3 (OCUVITE ORAL) Take by mouth. 0 Active Comment on above: Take by mouth. CHOLECALCIFEROL TABS (1 source) Start: 12-27-2017 VITAMIN D TABS 50,000 once weekly CHOLECALCIFEROL TABS [id number] Severino Jeffers MD Problems Active Problems Problem Classification Problem Date Documented Da te Episodic/Chronic Abdominal hernia (5 sources) Disorder of abdominal wall; Translations: [Ventral hernia without obstruction or gangrene] Onset: 04-26-2025 08-19-2024 Episodic Acute posthemorrhagic anemia (9 sources) Acute posthemorrhagic anemia; Translations: [Acute posthemorrhagic anemia] Onset: 02-26-2025 02-09-2025 Episodic Adjustment disorders (20 sources) Reactive depression (situational); Translations: [Adjustment disorder with depressed mood] Onset: 08-19-2015 08-19-2015 Chronic Anxiety disorders (20 sources) Panic attack; Translations: [Panic disorder [episodic paroxysmal anxiety]] Onset: 03-18-2017 03-18-2017 Chronic Coagulation and hemorrhagic disorders (20 sources) Platelet count below reference range; Translations: [Thrombocytopenia, unspecified] Onset: 05-07-2023 05-07-2023 Chronic Deficiency and other anemia (13 sources) Iron deficiency anemia due to blood loss; Translations: [Iron deficiency anemia secondary to blood loss (chronic)] 08-24-2024 Chronic Deficiency and other anemia (4 sources) Pancytopenia; Translations: [Other pancytopenia] 02-17-2024 Chronic Deficiency and other anemia (1 source) Iron deficiency anemia secondary to blood loss (chronic); Translations: [Iron deficiency anemia due to chronic blood loss] Onset: 01-08-2022 Chronic Deficiency and other anemia (17 sources) Iron deficiency anemia; Translations: [Iron deficiency anemia, unspecified] Episodic Diabetes mellitus with complications (20 sources) Type II diabetes mellitus uncontrolled; Translations: [Type 2 diabetes mellitus with hyperglycemia] Onset: 09-25-2023 Chronic Diabetes mellitus without complication (20 sources) Type 2 diabetes mellitus without complication; Translations: [Type 2 diabetes mellitus without complications] Onset: 08-19-2015 Resolved: 08-29-2020 Chronic Disorders of lipid metabolism (20 sources) Dyslipidemia; Translations: [Hyperlipidemia, unspecified] Onset: 04-04-2016 04-04-2016 Chronic Diverticulosis and diverticulitis (20 sources) Diverticulitis; Translations: [Diverticulitis of intestine, part unspecified, without perforation or abscess without bleeding] Onset: 06-26-2021 06-26-2021 Chronic E Codes: Fall (4 sources) Fall on same level from slipping, tripping and stumbling without subsequent striking against object, initial encounter; Translations: [Fall due to stumbling] 09-03-2024 Episodic Esophageal disorders (20 sources) Esophageal varices; Translations: [Esophageal varices without bleeding] Onset: 09-25-2023 Chronic Essential hypertension (20 sources) Essential hypertension; Translations: [Essential (primary) hypertension] Onset: 10-07-2019 10-07-2019 Chronic Fluid and electrolyte disorders (2 sources) Hypokalemia; Translations: [Hypokalemia] Onset: 04-14-2025 03-18-2025 Episodic Gastrointestinal hemorrhage (1 source) Secondary esophageal varices with bleeding; Translations: [Secondary esophageal varices with bleeding] Onset: 02-26-2025 Chronic Genitourinary symptoms and ill-defined conditions (20 sources) Albuminuria ; Translations: [Proteinuria, unspecified] Onset: 03-18-2017 03-18-2017 Episodic Miscellaneous mental health disorders (7 sources) Insomnia; Translations: [Other insomnia not due to a substance or known physiological condition] Onset: 06-10-2024 Chronic Mood disorders (20 sources) Major depression, single episode; Translations: [Major depressive disorder, single episode, in full remission] Onset: 06-21-2018 06-21-2018 Chronic Noninfectious gastroenteritis (4 sources) Enterocolitis; Translations: [Noninfective gastroenteritis and colitis, unspecified] 02-06-2024 Episodic Nonspecific chest pain (4 sources) Chest pain; Translations: [Chest pain, unspecified] 03-09-2024 Episodic Nutritional deficiencies (20 sources) Vitamin D deficiency; Translations: [Vitamin D deficiency, unspecified] Onset: 08-31-2020 08-31-2020 Chronic Other connective tissue disease (1 source) Complete rotator cuff tear or rupture of right shoulder, not specified as traumatic; Translations: [Complete rotator cuff tear or rupture of right shoulder, not specified as traumatic] Onset: 12-27-2017 12-27-2017 Episodic Other connective tissue disease (1 source) Pain in left foot; Translations: [Pain in left foot] 11-11-2020 Episodic Other gastrointestinal disorders (20 sources) 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; Translations: [Mixed irritable bowel syndrome] Onset: 01-08-2022 Chronic Other gastrointestinal disorders (20 sources) Malabsorption - iron; Translations: [Intestinal malabsorption, unspecified] Onset: 05-07-2023 05-07-2023 Chronic Other gastrointestinal disorders (2 sources) Intestinal malabsorption, unspecified; Translations: [Iron malabsorption (HCC)] Onset: 05-07-2023 Chronic Other gastrointestinal disorders (2 sources) Diarrhea; Translations: [Diarrhea, unspecified] Episodic Other gastrointestinal disorders (2 sources) Functional diarrhea; Translations: [Functional diarrhea] Episodic Other gastrointestinal disorders (6 sources) Finding of abdominopelvic segment of trunk; Translations: [Intra-abdominal and pelvic swelling, mass and lump, unspecified site] 05-12-2024 Episodic Other gastrointestinal disorders (4 sources) Ascites; Translations: [Other ascites] 04-03-2024 Episodic Other gastrointestinal disorders (4 sources) Abdominal mass; Translations: [Other specified diseases of intestine] 07-07-2024 Episodic Other gastrointestinal disorders (4 sources) H/O: liver disease; Translations: [Personal history of other diseases of the digestive system] 03-09-2024 Episodic Other liver diseases (20 sources) Portal hypertension; Translations: [Portal hypertension] Onset: 01-09-2024 10-14-2023 Chronic Other liver diseases (20 sources) Cirrhosis - non-alcoholic; Translations: [Unspecified cirrhosis of liver] Onset: 07-08-2024 07-08-2024 Chronic Other liver diseases (15 sources) Cirrhosis of liver; Translations: [Unspecified cirrhosis of liver] 07-17-2024 Chronic Other liver diseases (1 source) Disease of liver; Translations: [Liver disease, unspecified] 01-21-2025 Chronic Other liver diseases (1 source) Chronic hepatic failure without coma; Translations: [Chronic hepatic failure without coma] Onset: 03-31-2025 Chronic Other liver diseases (4 sources) Unspecified cirrhosis of liver; Translations: [Unspecified cirrhosis of liver] Onset: 07-08-2024 Chronic Other liver diseases (3 sources) Portal hypertension; Translations: [Portal venous hypertension (HCC)] Onset: 01-09-2024 Chronic Other liver diseases (10 sources) Hepatic failure; Translations: [Hepatic failure, unspecified without coma] 11-21-2024 Episodic Other liver diseases (9 sources) Alkaline phosphatase raised; Translations: [Abnormal levels of other serum enzymes] Onset: 04-19-2025 03-18-2025 Episodic Other liver diseases (1 source) Abnormal levels of other serum enzymes; Translations: [Elevated alkaline phosphatase level] Onset: 04-14-2025 Episodic Other lower respiratory disease (3 sources) Dry cough; Translations: [Dry cough] 03-31-2024 Episodic Other lower respiratory disease (2 sources) Rib pain; Translations: [Pleurodynia] 05-07-2024 Episodic Other lower respiratory disease (6 sources) Dyspnea; Translations: [Shortness of breath] 06-10-2024 Episodic Other lower respiratory disease (4 sources) Nodule of lung; Translations: [Solitary pulmonary nodule] 03-31-2024 Episodic Other lower respiratory disease (1 source) Solitary pulmonary nodule; Translations: [Solitary pulmonary nodule] Onset: 01-22-2025 Episodic Other nutritional; endocrine; and metabolic disorders (20 sources) Body mass index 40+ - severely obese; Translations: [Morbid (severe) obesity due to excess calories] Onset: 10-07-2019 08-29-2020 Chronic Other nutritional; endocrine; and metabolic disorders (20 sources) Obesity; Translations: [Obesity, unspecified] Onset: 10-07-2019 10-17-2022 Chronic Other nutritional; endocrine; and metabolic disorders (1 source) Severe obesity; Translations: [Class 2 severe obesity due to excess calories with serious comorbidity and body mass index (BMI) of 36.0 to 36.9 in adult ([facility]LY [facility])] 08-19-2024 Chronic Other nutritional; endocrine; and metabolic disorders (1 source) Obese class I; Translations: [Obesity, Class I, BMI 30-34.9] 11-02-2024 Chronic Other nutritional; endocrine; and metabolic disorders (1 source) Morbid (severe) obesity due to excess calories; Translations: [Class 2 severe obesity due to excess calories with serious comorbidity and body mass index (BMI) of 36.0 to 36.9 in adult ([facility])] Onset: 10-17-2022 Chronic Other nutritional; endocrine; and metabolic disorders (1 source) Body mass index (BMI) 36.0-36.9, adult; Translations: [Class 2 severe obesity due to excess calories with serious comorbidity and body mass index (BMI) of 36.0 to 36.9 in adult (HCC)] Onset: 10-17-2022 Chronic Other nutritional; endocrine; and metabolic disorders (1 source) Health-related behavior finding; Translations: [Other symptoms and signs concerning food and fluid intake] Episodic Other nutritional; endocrine; and metabolic disorders (4 sources) H/O: diabetes mellitus; Translations: [Personal history of other endocrine, nutritional and metabolic disease] 03-09-2024 Episodic Other skin disorders (1 source) Lesion of scalp; Translations: [Disorder of the skin and subcutaneous tissue, unspecified] 07-27-2023 Episodic Other upper respiratory infections (2 sources) Chronic sinusitis, unspecified; Translations: [Unspecified sinusitis (chronic)] 08-19-2023 Chronic Other upper respiratory infections (2 sources) Sore throat symptom; Translations: [Acute pharyngitis, unspecified] Episodic Residual codes; unclassified (20 sources) Obstructive sleep apnea syndrome; Translations: [Obstructive sleep apnea (adult) (pediatric)] Onset: 10-07-2019 10-07-2019 Chronic Residual codes; unclassified (1 source) Procedure not done; Translations: [Procedure and treatment not carried out, unspecified reason] 02-27-2024 Episodic Spondylosis; intervertebral disc disorders; other back problems (20 sources) Cervical spondylosis; Translations: [Other spondylosis with radiculopathy, cervical region] Onset: 07-10-2021 07-10-2021 Chronic Syncope (8 sources) Syncope; Translations: [Syncope and collapse] 11-07-2024 Episodic Thyroid disorders (20 sources) Acquired hypothyroidism; Translations: [Hypothyroidism, unspecified] Onset: 06-21-2018 06-21-2018 Chronic Unclassified (1 source) Patient encounter status 11-25-2024 Unclassified (4 sources) Appointment is with Brittaney Linoified (4 sources) message left on voicemail for office to call and schedule appointment. Unclassified (1 source) Follow Up Tests Results Onset: 08-19-2024 Unclassified (1 source) Class 2 severe obesity due to excess calories with serious comorbidity and body mass index (BMI) of 36.0 to 36.9 in adult ([facility]); Translations: [Class 2 severe obesity due to excess calories with serious comorbidity and body mass index (BMI) of 36.0 to 36.9 in adult ([facility])] Onset: 10-17-2022 Unclassified (1 source) Acute midline low back pain without sciatica; Translations: [Acute midline low back pain without sciatica] Onset: 01-21-2025 Unclassified (1 source) Obesity, Class I, BMI 30-34.9; Translations: [Obesity, Class I, BMI 30-34.9] Onset: 11-02-2024 Unclassified (1 source) Non-Chemotherapy Treatment Onset: 08-24-2024 Unclassified (1 source) Dry cough; Translations: [Dry cough] Onset: 06-10-2024 Urinary tract infections (3 sources) Acute cystitis; Translations: [Acute cystitis without hematuria] Onset: 05-19-2025 Episodic Past or Other Problems Problem Classification Problem Date Documented Da te Episodic/Chronic Abdominal pain (20 sources) Right lower quadrant pain; Translations: [Right lower quadrant pain] Onset: 07-08-2024 05-12-2024 Episodic Administrative/social admission (2 sources) Patient encounter status; Translations: [Dietary counseling and surveillance] Onset: 11-02-2024 11-02-2024 Episodic Conditions associated with dizziness or vertigo (20 sources) Dizziness; Translations: [Dizziness and giddiness] Onset: 01-09-2024 01-09-2024 Episodic Deficiency and other anemia (20 sources) Anemia; Translations: [Anemia, unspecified] Onset: 01-08-2022 Episodic Deficiency and other anemia (20 sources) Iron deficiency anemia secondary to inadequate dietary iron intake; Translations: [Other iron deficiency anemias] Onset: 05-07-2023 05-07-2023 Episodic Deficiency and other anemia (2 sources) Anemia, unspecified; Translations: [Anemia, unspecified] Onset: 01-08-2022 Episodic Deficiency and other anemia (2 sources) Other iron deficiency anemias; Translations: [Iron deficiency anemia secondary to inadequate dietary iron intake] Onset: 01-08-2022 Episodic Deficiency and other anemia (1 source) Iron deficiency anemia, unspecified; Translations: [Iron deficiency anemia, unspecified iron deficiency anemia type] Onset: 01-08-2022 Episodic Fracture of upper limb (8 sources) Closed fracture of left upper limb; Translations: [Unspecified fracture of shaft of humerus, left arm, initial encounter for closed fracture] Onset: 08-28-2024 08-28-2024 Episodic Gastrointestinal hemorrhage (20 sources) Rectal hemorrhage; Translations: [Hemorrhage of anus and rectum] Onset: 01-08-2022 Episodic Headache; including migraine (20 sources) Frequent headache; Translations: [Frequent headaches] Onset: 08-31-2020 06-26-2021 Episodic Hemorrhoids (20 sources) Internal hemorrhoids; Translations: [Other hemorrhoids] Onset: 01-08-2022 Episodic Malaise and fatigue (20 sources) Fatigue; Translations: [Other fatigue] Onset: 10-07-2019 10-07-2019 Episodic Nutritional deficiencies (20 sources) Cobalamin deficiency; Translations: [Deficiency of other specified B group vitamins] Onset: 11-25-2024 11-25-2024 Episodic Other bone disease and musculoskeletal deformities (20 sources) Osteopenia; Translations: [Other specified disorders of bone density and structure, multiple sites] Onset: 08-28-2023 08-28-2023 Episodic Other bone disease and musculoskeletal deformities (20 sources) Senile osteopenia; Translations: [Other specified disorders of bone density and structure, unspecified site] Onset: 11-25-2024 11-25-2024 Episodic Other bone disease and musculoskeletal deformities (1 source) Other specified disorders of bone density and structure, unspecified site; Translations: [Osteopenia, senile] Onset: 11-25-2024 Episodic Other circulatory disease (20 sources) Low blood pressure; Translations: [Hypotension, unspecified] Onset: 07-08-2024 05-26-2024 Episodic Other connective tissue disease (20 sources) Subacromial bursitis of right shoulder; Translations: [Bursitis of right shoulder] Onset: 11-06-2017 11-06-2017 Episodic Other gastrointestinal disorders (20 sources) Splenomegaly; Translations: [Splenomegaly, not elsewhere classified] Onset: 10-08-2023 08-21-2023 Episodic Other gastrointestinal disorders (1 source) Other specified diseases of intestine; Translations: [Other specified diseases of intestine] Onset: 11-06-2024 Episodic Other gastrointestinal disorders (1 source) Diarrhea, unspecified; Translations: [Diarrhea, unspecified] Onset: 09-10-2024 Episodic Other gastrointestinal disorders (1 source) Other ascites; Translations: [Other ascites] Onset: 09-03-2024 Episodic Other gastrointestinal disorders (1 source) Splenomegaly, not elsewhere classified; Translations: [Splenomegaly] Onset: 10-08-2023 Episodic Other gastrointestinal disorders (1 source) Intra-abdominal and pelvic swelling, mass and lump, unspecified site; Translations: [Intra-abdominal and pelvic swelling, mass and lump, unspecified site] Onset: 05-25-2024 Episodic Other lower respiratory disease (20 sources) Dyspnea on exertion; Translations: [Shortness of breath] Onset: 01-09-2024 Resolved: 07-17-2024 01-01-2024 Episodic Other lower respiratory disease (20 sources) Multiple nodules of lung; Translations: [Other nonspecific abnormal finding of lung field] Onset: 07-17-2024 01-22-2024 Episodic Other lower respiratory disease (20 sources) History of pleural effusion; Translations: [Personal history of other diseases of the respiratory system] Onset: 07-08-2024 04-16-2024 Episodic Other lower respiratory disease (2 sources) Other nonspecific abnormal finding of lung field; Translations: [Lung nodules] Onset: 07-01-2024 Episodic Other lower respiratory disease (1 source) Shortness of breath; Translations: [SOB (shortness of breath)] Onset: 06-10-2024 Episodic Other non-traumatic joint disorders (20 sources) Hip pain; Translations: [Pain in right hip] Onset: 09-25-2023 09-25-2023 Episodic Other non-traumatic joint disorders (20 sources) Pain in right shoulder; Translations: [Pain in joint, shoulder region] Onset: 11-06-2017 Resolved: 08-29-2020 08-29-2020 Episodic Other non-traumatic joint disorders (2 sources) Pain in left shoulder; Translations: [Pain in joint, shoulder region] Onset: 09-29-2024 10-07-2024 Episodic Other nutritional; endocrine; and metabolic disorders (20 sources) Unintentional weight loss; Translations: [Abnormal weight loss] Onset: 01-09-2024 12-30-2023 Episodic Other screening for suspected conditions (not mental disorders or infectious disease) (20 sources) Other specified abnormal findings of blood chemistry; Translations: [Other abnormal blood chemistry] Onset: 08-31-2015 08-31-2015 Episodic Pleurisy; pneumothorax; pulmonary collapse (20 sources) Pleural effusion; Translations: [Pleural effusion, not elsewhere classified] Onset: 06-10-2024 01-01-2024 Episodic Residual codes; unclassified (20 sources) History of nephrectomy; Translations: [Acquired absence of kidney] Onset: 08-19-2015 08-19-2015 Episodic Residual codes; unclassified (20 sources) Postmenopausal state; Translations: [Asymptomatic menopausal state] Onset: 11-25-2024 11-25-2024 Episodic Spondylosis; intervertebral disc disorders; other back problems (20 sources) Chronic low back pain; Translations: [Lumbago with sciatica, right side] Onset: 03-18-2017 Resolved: 08-29-2020 09-25-2023 Episodic Unclassified (1 source) Problem Unclassified (20 sources) Type 2 diabetes mellitus without complication; Translations: [Diabetes mellitus type 2, uncontrolled, without complications] Onset: 03-10-2019 Resolved: 08-29-2020 08-29-2020 Results Test Name Value Interpretation Reference Range Facility Bacteria Ur Culton Bacteria identified Cx Nom (U) ORGANISM ID: 1 50,000-<100,000 CFU/ml Normal urogenital annie [facility] [place] Comment on above: Performed By: #### 6 30-4 ####[facility] LABCLIA [id number] [place] [address] [place] CNOVon 05-19-2025 CNOV Normal [place] UA DIP, URINE (POC)on 2024 BILIRUBIN UA (POCT) Negative Negative [facility] CLARITY UA (POCT) Cloudy [facility] COLOR UA (POCT) Dark yellow [facility] GLUCOSE UA (POCT) Negative Negative mg/dL [facility] Hemoglobin Ql (U) Small Abnormal Negative [facility] Interpretation and review of laboratory results Abnormal [facility] KETONE UA (POCT) Negative Negative mg/dL [facility] LEUKOCYTES UA (POCT) Small Abnormal Negative [facility] NITRITE UA (POCT) Negative Negative [facility] PH UA (POCT) 6.0 4.5 - 8.0 [facility] Protein Ql (U) 30 mg/dL Abnormal Negative [facility] SPECIFIC GRAVITY UA (POCT) 1.015 1.005 - 1.030 [facility] UROBILINOGEN UA (POCT) 0.2 Lucie l E.U./dL [facility] Location:[facility], [address] [place] [address], [place], [place], [id number] [place] [address] POINT OF CARE [facility] CNPNon 05-13-2025 CNPN [facility] [place] CNPNon 05-05-2025 CNPN [facility] [place] CNOVon 04-26-2025 CNOV Office Visit (AUTUMN 3) -- ABRBARA MENESES ([id number]) 1955 F Date Time Provider Department 04/26/25 2:15 PM KIM [id number] During your visit today, we recorded the following information about you: Pulse Respiration Blood pressure Weight 69/minute 18/minute 113/64 82.6 kg Height 1.6 m Kim Wu MD 04/26/2025 5:45 PM Signed Barbara Meneses is a 70 year old female who is here for reevaluation for abdominal wall hernia. She recently had a CT and an MRI. The MRI showed no obvious nodular or metastatic disease within the abdominal cavity. The nodular site seen on CT scan is most likely felt to be scar tissue from a prior nephrectomy. She does report the abdominal wall hernia which does cause her discomfort at times. She does have cirrhosis with portal venous hypertension. She did have esophageal varices that needed to be banded recently. She also has thrombocytopenia. She was supposed an ultrasound to evaluate her liver but her but states that this was not completed for unclear reasons. ALLERGIES[1] CURRENT MEDICATIONS[2] PHYSICAL EXAM: BP 113/64 Pulse 69 Resp 18 Ht 5' 3 (1.60m) Wt 182 lb (82.6kg) BMI 32.25 kg/(m2). General Appearance: Well appearing, alert, in no acute distress, well-hydrated, well nourished. and Obese. Abdomen: Normal abdominal exam, Abdomen soft, non-tender. Bowel sounds normal. No masses, organomegaly, Positive findings: Reducible right sided abdominal wall hernia. Assessment: Abdominal wall hernia (primary encounter diagnosis) Cirrhosis, nonalcoholic (hcc) Portal venous hypertension (hcc) Thrombocytopenia Portal hypertension with esophageal varices (hcc) Plan: ASSESSMENT/PLAN: 1. Abdominal wall hernia - ICD9: 553.20, ICD10: K43.9 (primary diagnosis) Given her thrombocytopenia, portal venous hypertension and esophageal variceal bleed I am concerned about operating on her. I do believe she will be at higher risk for surgical intervention. I did refer her up to [facility] for second opinion regarding her abdominal wall hernia - CONSULT TO GENERAL SURGERY 2. Cirrhosis, nonalcoholic (HCC) - ICD9: 571.5, ICD10: K74.60 - CONSULT TO GENERAL SURGERY 3. Portal venous hypertension (HCC) - ICD9: 572.3, ICD10: K76.6 4. Thrombocytopenia - ICD9: 287.5, ICD10: D69.6 5. Portal hypertension with esophageal varices (HCC) - ICD9: 572.3, 456.21, ICD10: K76.6, I85.00 Medical Decision Making: Problems: High: Illness/injury w/ threat to life/body function Data: Unique test result(s) reviewed: 1 Risk: Moderate: Moderate risk from testing/treatment Medical Decision Making Level: 4 - Moderate Kim Wu M.D., F.A.C.S. [1] Allergies Allergen Reactions Mold Unknown Adhesive Tape (Yamel* Rash Januvia [Sitaglipti* Intolerance GI upset, aching of muscles, headaches Latex Itching [2] Current Outpatient Medications Medication Sig zolpidem (AMBIEN) 10 mg Take 1 tablet by mouth at bedtime as needed (insomnia) for up to 30 days. dulaglutide (TRULICITY) 0.75 mg/0.5 mL pen injector Inject 0.75 mg subcutaneously one time a week. Dx: Type 2 diabetes uncontrolled, Inject dose once per week. Discard Pen After furosemide (LASIX) 40 mg tablet Take 1 tablet by mouth once daily. DULoxetine (CYMBALTA) 60 mg capsule Take 1 capsule by mouth once daily. propranolol (INDERAL) 10 mg tablet Take 1 tablet by mouth three times a day. famotidine (PEPCID) 40 mg tablet Take 40 mg by mouth daily at bedtime. fexofenadine (JEZ) 180 mg tablet Take 180 mg by mouth once daily. PREVALITE 4 gram powder in packet Take 4 g by mouth once daily. spironolactone (ALDACTONE) 50 mg tablet Take 50 mg by mouth two times a day. methocarbamol (ROBAXIN) 500 mg tablet Take 1 tablet by mouth three times a day as needed. ergocalciferol 50,000 unit capsule (VITAMIN D2, DRISDOL) Take 1 capsule by mouth one time a week. albuterol HFA (VENTOLIN HFA) 90 mcg/actuation inhaler Inhale 2 Puffs as instructed every 4 hours as needed for wheezing/shortness of breath. SYNTHROID 137 mcg tablet Take 1 tablet by mouth once daily. In the morning Ferrous Gluconate (FERGON) 324 mg (38 mg iron) tablet 324 mg. (Patient not taking: Reported on 04/20/2025) midodrine (PROAMITINE) 5 mg tablet Take 5 mg by mouth three times a day. oxyCODONE IR (ROXICODONE) 5 mg immediate release tablet Take 5 mg by mouth every 8 hours as needed for pain (pt states she cuts tablet in half). (Patient not taking: Reported on 01/21/2025) iv contrast (will be provided with radiology test) CT ABD/PEL -Inject, intravenously, once for 1 dose.No IV access, insert saline lock prior to the beginning of sedation, infusion, injection of imaging exam. Discontinue saline lock post exam. If Pt. has a central line or IVAD, may access for administration according to line specific nursing protoc (more content not included)... Normal [facility] CNOVSPon 04-20-2025 CNOVSP [facility] [place] 25-hydroxyvitamin D3 [Mass/V ol]on 04-15-2025 Interpretation and review of laboratory results [facility] The reference range interval was based on an analysis of samples from healthy adults and may not pertain to children from 0-18 years old. [facility] HbA1c (Bld)on 04-15-2025 Average glucose Estimated from glycated hemoglobin (Bld) [Mass/Vol] 108 mg/dL [facility] Comment on above: eAG: (Estimated aver age glucose) is a calculated value from HgbA1c and is sales representative metals of the average blood glucose level in the last 2-3 month period. HbA1c (Bld) [Mass fraction] 5.4 % 4.3 - 5.6 % [facility] Comment on above: [place] [employer] As sociation guidelines indicate that patients with HgbA1c in the range 5.7-6.4% are at increased risk for development of diabetes, and intervention by lifestyle modification may be beneficial. HgbA1c greater or equal to 6.5% is considered diagnostic of diabetes. [facility] VITAMIN D 25 HYDROXYon 04-15 25-hydroxyvitamin D3 [Mass/Vol] 44.8 ng/mL 31.0 - 80.0 ng/mL [facility] Comment on above: Classification of 25 [place] Vitamin D status: Deficiency/Insufficiency: < or = 30 ng/ml. Sufficiency/Optimal Levels: 31-80 ng/mL Toxicity: > 100 ng/mL. Test performed by chemiluminescent immunoassay. 25(OH)D3 [facility] 2024 25-hydroxyvitamin D3 [Mass/Vol] 44.8 ng/mL Normal 31.0-80.0 [place] Comment on above: Order Comment: Speci men Type: BLOOD SPECIMENOrdering Facility: [facility] Address: [address] [place] [address] Result Comment: Clas sification of 25 [place] Vitamin D status:Deficiency/Insufficiency: < or = 30 ng/ml.Sufficiency/Optimal Levels: 31-80 ng/mLToxicity: > 100 ng/mL.Test performed by chemiluminescent immunoassay. Performed By: #### 1 989-3 ####[facility] LABCLIA [id number] [place] [address] [place] CBC W Auto Differential pane l (Bld)on 04-14-2025 Basophils (Bld) [#/Vol] 10*3/uL Normal <0.11 [place] Comment on above: Order Comment: Speci men Type: BLOOD SPECIMENOrdering Facility: [facility] Address: [address] [place] [address] Performed By: #### 5 7021-8 ####[facility] LABCLIA [id number] [address], [place] [address] [place] Basophils/100 WBC (Bld) 0.8 % Normal [place] Comment on above: Order Comment: Speci men Type: BLOOD SPECIMENOrdering Facility: [facility] [facility] Address: [address] [place] [address] Performed By: #### 5 7021-8 ####[facility] LABCLIA [id number] [address], [place] [address] [place] Differential cell count method Nom (Bld) Auto Normal [place] Comment on above: Order Comment: Speci men Type: BLOOD SPECIMENOrdering Facility: [facility] Address: [address] [place] [address] Performed By: #### 5 7021-8 ####[facility] LABCLIA [id number] [address], [place] [address] [place] Eosinophils (Bld) [#/Vol] 0.09 10*3/uL Normal <0.46 [place] Comment on above: Order Comment: Speci men Type: BLOOD SPECIMENOrdering Facility: [facility] Address: [address] [place] [address] Performed By: #### 5 7021-8 ####[facility] LABCLIA [id number] [facility] [place] [id number] [place] Eosinophils/100 WBC (Bld) 3.6 % Normal [place] Comment on above: Order Comment: Speci men Type: BLOOD SPECIMENOrdering Facility: [facility] Address: [address] [place] [address] Performed By: #### 5 7021-8 ####[facility] LABCLIA [id number] [place] [address] [place] Erythrocyte distribution width (RBC) [Ratio] 27.8 % High 11.5-15.0 [place] Comment on above: Order Comment: Speci men Type: BLOOD SPECIMENOrdering Facility: [facility] Address: [address] [place] [address] Performed By: #### 5 7021-8 ####[facility] LABIA [id number] [place] [address] [place] Hematocrit (Bld) [Volume fraction] 35.2 % Low 36.0-46.0 [place] Comment on above: Order Comment: Speci men Type: BLOOD SPECIMENOrdering Facility: [facility] Address: [address] [place] [address] Performed By: #### 5 7021-8 ####[facility] LABIA [id number] [place] [address] [place] Hemoglobin (Bld) [Mass/Vol] 10.7 g/dL Low 11.5-15.5 [place] Comment on above: Order Comment: Speci men Type: BLOOD SPECIMENOrdering Facility: [facility] Address: [address] [place] [address] Performed By: #### 5 7021-8 ####[facility] LABIA [id number] [place] [address] [place] Immature granulocytes (Bld) [#/Vol] 10*3/uL Normal <0.10 [place] Comment on above: Order Comment: Speci men Type: BLOOD SPECIMENOrdering Facility: [facility] Address: [address] [place] [address] Performed By: #### 5 7021-8 ####[facility] LABIA [id number] [place] [address] [place] Immature granulocytes/100 WBC (Bld) 0.4 % Normal [place] Comment on above: Order Comment: Speci men Type: BLOOD SPECIMENOrdering Facility: [facility] Address: [address] [place] [address] Performed By: #### 5 7021-8 ####[facility] LABCLIA [id number] [place] [address] [place] Lymphocytes (Bld) [#/Vol] 0.60 10*3/uL Low 1.00-4.00 [place] Comment on above: Order Comment: Speci men Type: BLOOD SPECIMENOrdering Facility: [facility] Address: [address] [place] [address] Performed By: #### 5 7021-8 ####[facility] LABCLIA [id number] [place] [address] [place] Lymphocytes/100 WBC (Bld) 24.0 % Normal [place] Comment on above: Order Comment: Speci men Type: BLOOD SPECIMENOrdering Facility: [facility] Address: [address] [place] [address] Performed By: #### 5 7021-8 ####[facility] LABCLIA [id number] [place] [address] [place] MCH (RBC) [Entitic mass] 25.2 pg Low 26.0-34.0 [place] Comment on above: Order Comment: Speci men Type: BLOOD SPECIMENOrdering Facility: [facility] Address: [address] [place] [address] Performed By: #### 5 7021-8 ####[facility] LABCLIA [id number] [place] [address] [place] MCHC (RBC) [Mass/Vol] 30.4 g/dL Low 30.5-36.0 [facility] Comment on above: Order Comment: Speci men Type: BLOOD SPECIMENOrdering Facility: [facility] Address: [address] [place] [address] Performed By: #### 5 7021-8 ####[facility] LABCLIA [id number] [place] [address] [place] MCV (RBC) [Entitic vol] 82.8 fL Normal 80.0-100.0 [place] Comment on above: Order Comment: Speci men Type: BLOOD SPECIMENOrdering Facility: [facility] Address: [address] [place] [address] Performed By: #### 5 7021-8 ####[facility] LABCLIA [id number] [place] [address] [place] Monocytes (Bld) [#/Vol] 0.23 10*3/uL Normal <0.87 [place] Comment on above: Order Comment: Speci men Type: BLOOD SPECIMENOrdering Facility: [facility] Address: [address] [place] [address] Performed By: #### 5 7021-8 ####[facility] LABCLIA [id number] [place] [address] [place] Monocytes/100 WBC (Bld) 9.2 % Normal [place] Comment on above: Order Comment: Speci men Type: BLOOD SPECIMENOrdering Facility: [facility] Address: [address] [place] [address] Performed By: #### 5 7021-8 ####[facility] LABCLIA [id number] [place] [address] [place] Neutrophils (Bld) [#/Vol] 1.55 10*3/uL Normal 1.45-7.50 [place] Comment on above: Order Comment: Speci men Type: BLOOD SPECIMENOrdering Facility: [facility] Address: [address] [place] [address] Performed By: #### 5 7021-8 ####[facility] LABCLIA [id number] [place] [address] [place] Neutrophils/100 WBC (Bld) 62.0 % Normal [place] Comment on above: Order Comment: Speci men Type: BLOOD SPECIMENOrdering Facility: [facility] Address: [address] [place] [address] Performed By: #### 5 7021-8 ####[facility] LABIA [id number] [place] [address] [place] Nucleated RBC (Bld) [#/Vol] 10*3/uL Normal <0.01 [place] Comment on above: Order Comment: Speci men Type: BLOOD SPECIMENOrdering Facility: [facility] Address: [address] [place] [address] Performed By: #### 5 7021-8 ####[facility] LABIA [id number] [place] [address] [place] Nucleated RBC/100 WBC (Bld) [Ratio] 0.0 /100 WBC Normal [place] Comment on above: Order Comment: Speci men Type: BLOOD SPECIMENOrdering Facility: [facility] Address: [address] [place] [address] Performed By: #### 5 7021-8 ####[facility] LABIA [id number] [place] [address] [place] Platelet mean volume (Bld) [Entitic vol] Normal [place] Comment on above: Order Comment: Speci men Type: BLOOD SPECIMENOrdering Facility: [facility] Address: [address] [place] [address] Result Comment: Unab le to Report. Performed By: #### 5 7021-8 ####[facility] LAB[facility] [id number] [place] [address] [place] Platelets (Bld) [#/Vol] 80 10*3/uL Low 150-400 [place] Comment on above: Order Comment: Speci men Type: BLOOD SPECIMENOrdering Facility: [facility] Address: [address] [place] [address] Result Comment: Resu lts checked and verified.No clot detected. Performed By: #### 5 7021-8 ####[facility] LABIA [id number] [address] [address] [place] RBC (Bld) [#/Vol] 4.25 10*6/uL Normal 3.90-5.20 [facility] Comment on above: Order Comment: Speci men Type: BLOOD SPECIMENOrdering Facility: [facility] Address: [address] [place] [address] Performed By: #### 5 7021-8 ####[facility] [id number] [place] [address] [place] WBC (Bld) [#/Vol] 2.50 10*3/uL Low 3.70-11.00 [facility] Comment on above: Order Comment: Speci men Type: BLOOD SPECIMENOrdering Facility: [facility] Address: [address] [place] [address] Performed By: #### 5 7021-8 ####[facility] [id number] [place] [id number] [place] CNOVon 04-14-2025 CNOV Normal [place] CNPNon 04-14-2025 CNPN Normal [place] Comprehensive metabolic 2000 panelon 04-14-2025 Albumin [Mass/Vol] 4.2 g/dL Normal 3.9-4.9 [facility] Comment on above: Order Comment: Speci men Type: BLOOD SPECIMENOrdering Facility: [facility] Address: [address] [place] [address] Performed By: #### 2 4323-8, 25464-3, 2276-4 ####[facility] LAB[facility] [id number] [place] [address] [place] ALP [Catalytic activity/Vol] 153 U/L High 34-123 [place] Comment on above: Order Comment: Speci men Type: BLOOD SPECIMENOrdering Facility: [facility] Address: [address] [place] [address] Performed By: #### 2 4323-8, 91654-8, 2275-4 ####[facility] LABCLIA [id number] [place] [address] [place] ALT [Catalytic activity/Vol] 19 U/L Normal 7-38 [place] Comment on above: Order Comment: Speci men Type: BLOOD SPECIMENOrdering Facility: [facility] Address: [address] [place] [address] Performed By: #### 2 4323-8, 02288-5, 2275-4 ####[facility] LABCLIA [id number] [place] [address] [place] Anion gap [Moles/Vol] 13 mmol/L Normal 8-15 [facility] Comment on above: Order Comment: Speci men Type: BLOOD SPECIMENOrdering Facility: [facility] Address: [address] [place] [address] Performed By: #### 2 4323-8, 11415-2, 4 ####[facility] LABIA [id number] [place] [address] [place] AST [Catalytic activity/Vol] 25 U/L Normal 13-35 [place] Comment on above: Order Comment: Speci men Type: BLOOD SPECIMENOrdering Facility: [facility] Address: [address] [place] [address] Performed By: #### 2 4323-8, 80153-2, 2275-4 ####[facility] LABIA [id number] [place] [id number] [place] Bilirubin [Mass/Vol] 1.1 mg/dL Normal 0.2-1.3 [facility] Comment on above: Order Comment: Speci men Type: BLOOD SPECIMENOrdering Facility: [facility] Address: [address] [place] [address] Performed By: #### 2 4323-8, 71434-4, 2275-4 ####[facility] LABCLIA [id number] [address] [address] [place] Calcium [Mass/Vol] 9.9 mg/dL Normal 8.5-10.2 [facility] Comment on above: Order Comment: Speci men Type: BLOOD SPECIMENOrdering Facility: [facility] Address: [address] [place] [address] Performed By: #### 2 4323-8, 18857-8, 2275-12 ####[facility] LABCLIA [id number] [place] [id number] [place] Chloride [Moles/Vol] 104 mmol/L Normal 98-107 [facility] Comment on above: Order Comment: Speci men Type: BLOOD SPECIMENOrdering Facility: [facility] Address: [address] [place] [address] Performed By: #### 2 4323-8, 83501-7, 2275-12 ####[facility] LABCLIA [id number] [place] [id number] [place] CO2 [Moles/Vol] 21 mmol/L Low 22-30 [place] Comment on above: Order Comment: Speci men Type: BLOOD SPECIMENOrdering Facility: [facility] Address: [address] [place] [address] Performed By: #### 2 4323-8, 01868-2, 2275-12 ####[facility] LABCLIA [id number] [address] [address] [place] Creatinine [Mass/Vol] 1.13 mg/dL High 0.58-0.96 [facility] Comment on above: Order Comment: Speci men Type: BLOOD SPECIMENOrdering Facility: [facility] Address: [address] [place] [address] Performed By: #### 2 4323-8, 44995-5, 2275-4 ####[facility] LABCLIA [id number] [place] [id number] [place] eGFRcr SerPlBld CKD-EPI 2020 52 mL/min/1.73m??? Low >=60 [place] Comment on above: Order Comment: Fatemeh de la paz Type: BLOOD SPECIMENOrdering Facility: [facility] Address: [address] [place] [address] Result Comment: Sally mated Glomerular Filtration Rate (eGFR) is calculated using the 2020 CKD-EPI creatinine equation. This equation utilizes serum creatinine, sex, and age as parameters. The creatinine assay has traceable calibration to isotope dilution-mass spectrometry. Refer to KDIGO guidelines for clinical interpretation. In patients with unstable renal function, e.g. those with acute kidney injury, the eGFR may not accurately reflect actual GFR. Performed By: #### 2 4323-8, 41397-5, 2276-4 ####[facility] [id number] [place] [address] [place] Glucose [Mass/Vol] 133 mg/dL High 74-99 [facility] Comment on above: Order Comment: Fatemeh de la paz Type: BLOOD SPECIMENOrdering Facility: [facility] Address: [address] [place] [address] Result Comment: The [place] Diabetes Association (ADA) provides guidance for cutoff values for fasting glucose and random glucose. The ADA defines fasting as no caloric intake for at least 8 hours. Fasting plasma glucose results between 100 to 125 mg/dL indicate increased risk for diabetes (prediabetes).Fasting plasma glucose results greater than or equal to 126 mg/dL meet the criteria for diagnosis of diabetes. In the absence of unequivocal hyperglycemia, results should be confirmed by repeat testing. In a patient with classic symptoms of hyperglycemia or hyperglycemic crisis, random plasma glucose results greater than or equal to 200 mg/dL meet the criteria for diagnosis of diabetes.Reference: Standards of Medical Care in Diabetes 2016, [place] [employer] Association. Diabetes Care. 2016.39(Suppl 1). Performed By: #### 2 4323-8, 32581-0, 2276-4 ####[facility] LABIA [id number] [address] [address] [place] Potassium [Moles/Vol] 4.5 mmol/L Normal 3.7-5.1 [facility] Comment on above: Order Comment: Speci men Type: BLOOD SPECIMENOrdering Facility: [facility] Address: [address] [place] [address] Performed By: #### 2 4323-8, 77981-0, 2275-4 ####[facility] LABCLIA [id number] [place] [id number] [place] Protein [Mass/Vol] 6.7 g/dL Normal 6.3-8.0 [facility] Comment on above: Order Comment: Speci men Type: BLOOD SPECIMENOrdering Facility: [facility] Address: [address] [place] [address] Performed By: #### 2 4323-8, 99989-6, 2275-12 ####[facility] LABCLIA [id number] [place] [id number] [place] Sodium [Moles/Vol] 138 mmol/L Normal 136-144 [facility] Comment on above: Order Comment: Speci men Type: BLOOD SPECIMENOrdering Facility: [facility] Address: [address] [place] [address] Performed By: #### 2 4323-8, 48836-7, 4 ####[facility] LABCLIA [id number] [place] [id number] [place] Urea nitrogen [Mass/Vol] 26 mg/dL High 7-21 [place] Comment on above: Order Comment: Speci men Type: BLOOD SPECIMENOrdering Facility: [facility] Address: [address] [place] [address] Performed By: #### 2 4323-8, 72878-5, 4 ####[facility] LABCLIA [id number] [address] [address] [place] Ferritin SerPl-mCncon 07-30- 2025 Ferritin [Mass/Vol] 190.0 ng/mL Normal 14.7-205.1 [facility] Comment on above: Order Comment: Fatemeh de la paz Type: BLOOD SPECIMENOrdering Facility: [facility] Address: [address] [place] [address] Performed By: #### 2 4323-8, 21314-4, 2276-4 ####[facility] LABCLIA [id number] [place] [address] [place] HbA1c (Bld)on 04-14-2025 Average glucose Estimated from glycated hemoglobin (Bld) [Mass/Vol] 108 mg/dL Normal [place] Comment on above: Order Comment: Fatemeh de la paz Type: BLOOD SPECIMENOrdering Facility: [facility] Address: [address] [place] [address] Result Comment: eAG: (Estimated average glucose) is a calculated value from HgbA1c and is sales representative metals of the average blood glucose level in the last 2-3 month period. Performed By: #### 5 5454-3 ####[facility] LABCLIA [id number] [place] [address] [place] HbA1c (Bld) [Mass fraction] 5.4 % Normal 4.3-5.6 [place] Comment on above: Order Comment: Fatemeh de la paz Type: BLOOD SPECIMENOrdering Facility: [facility] Address: [address] [place] [address] Result Comment: [place] Diabetes Association guidelines indicate that patients with HgbA1c in the range 5.7-6.4% are at increased risk for development of diabetes, and intervention by lifestyle modification may be beneficial. HgbA1c greater or equal to 6.5% is considered diagnostic of diabetes. Performed By: #### 5 5454-3 ####[facility] LABCLIA [id number] [place] [id number] [place] Iron and Iron binding capaci ty panelon 04-14-2025 Iron [Mass/Vol] 117 ug/dL Normal 41-186 [place] Comment on above: Order Comment: Speci men Type: BLOOD SPECIMENOrdering Facility: [facility] Address: [address] [place] [address] Performed By: #### 2 4323-8, 55372-5, 2275-4 ####[facility] LABCLIA [id number] [place] [address] [place] Iron binding capacity [Mass/Vol] 357 ug/dL Normal 232-386 [place] Comment on above: Order Comment: Speci men Type: BLOOD SPECIMENOrdering Facility: [facility] Address: [address] [place] [address] Performed By: #### 2 4323-8, 39548-7, 4 ####[facility] LABCLIA [id number] [place] [address] [place] Iron/TIBC [Molar ratio] 32.8 % Normal 15.0-57.0 [place] Comment on above: Order Comment: Speci men Type: BLOOD SPECIMENOrdering Facility: [facility] Address: [address] [place] [address] Performed By: #### 2 4323-8, 20960-4, 4 ####[facility] LABCLIA [id number] [place] [id number] [place] CBC W Auto Differential pane l (Bld)on 03-17-2025 Basophils (Bld) [#/Vol] 10*3/uL Normal <0.11 [place] Comment on above: Order Comment: Speci men Type: BLOOD SPECIMENOrdering Facility: [facility] Address: [address] [place] [address] Performed By: #### 5 7021-8 ####[facility] [id number] [place] [address] [place] Basophils/100 WBC (Bld) 0.3 % Normal [place] Comment on above: Order Comment: Speci men Type: BLOOD SPECIMENOrdering Facility: [facility] Address: [address] [place] [address] Performed By: #### 5 7021-8 ####[facility] PRIYAWCECILELIA [id number] [place] [address] [place] Differential cell count method Nom (Bld) Auto Normal [place] Comment on above: Order Comment: Speci men Type: BLOOD SPECIMENOrdering Facility: [facility] Address: [address] [place] [address] Performed By: #### 5 7021-8 ####[facility]ITALCECILELIA [id number] [place] [address] [place] Eosinophils (Bld) [#/Vol] 0.12 10*3/uL Normal <0.46 [place] Comment on above: Order Comment: Speci men Type: BLOOD SPECIMENOrdering Facility: [facility] Address: [address] [place] [address] Performed By: #### 5 7021-8 ####[facility]LEL[facility] [id number] [place] [address] [place] Eosinophils/100 WBC (Bld) 4.1 % Normal [place] Comment on above: Order Comment: Speci men Type: BLOOD SPECIMENOrdering Facility: [facility] Address: [address] [place] [address] Performed By: #### 5 7021-8 ####[facility]THWNCLIA [id number] [place] [address] [place] Erythrocyte distribution width (RBC) [Ratio] 19.7 % High 11.5-15.0 [place] Comment on above: Order Comment: Speci men Type: BLOOD SPECIMENOrdering Facility: [facility] Address: [address] [place] [address] Performed By: #### 5 7021-8 ####[facility]ITALNCL[facility] [id number] [place] [address] [place] Hematocrit (Bld) [Volume fraction] 25.3 % Low 36.0-46.0 [place] Comment on above: Order Comment: Speci men Type: BLOOD SPECIMENOrdering Facility: [facility] Address: [address] [place] [address] Performed By: #### 5 7021-8 ####[facility] [id number] [place] [address] [place] Hemoglobin (Bld) [Mass/Vol] 7.8 g/dL Low 11.5-15.5 [place] Comment on above: Order Comment: Speci men Type: BLOOD SPECIMENOrdering Facility: [facility] Address: [address] [place] [address] Performed By: #### 5 7021-8 ####[facility] [id number] [place] [address] [place] Immature granulocytes (Bld) [#/Vol] 10*3/uL Normal <0.10 [place] Comment on above: Order Comment: Speci men Type: BLOOD SPECIMENOrdering Facility: [facility] Address: [address] [place] [address] Performed By: #### 5 7021-8 ####[facility] [id number] [place] [address] [place] Immature granulocytes/100 WBC (Bld) 0.0 % Normal [place] Comment on above: Order Comment: Speci men Type: BLOOD SPECIMENOrdering Facility: [facility] Address: [address] [place] [address] Performed By: #### 5 7021-8 ####[facility] [id number] [place] [address] [place] Lymphocytes (Bld) [#/Vol] 0.78 10*3/uL Low 1.00-4.00 [place] Comment on above: Order Comment: Speci men Type: BLOOD SPECIMENOrdering Facility: [facility] Address: [address] [place] [address] Performed By: #### 5 7021-8 ####[facility] [id number] [place] [address] [place] Lymphocytes/100 WBC (Bld) 26.9 % Normal [place] Comment on above: Order Comment: Speci men Type: BLOOD SPECIMENOrdering Facility: [facility] Address: [address] [place] [address] Performed By: #### 5 7021-8 ####[facility] [id number] [place] [address] [place] MCH (RBC) [Entitic mass] 23.8 pg Low 26.0-34.0 [place] Comment on above: Order Comment: Speci men Type: BLOOD SPECIMENOrdering Facility: [facility] Address: [address] [place] [address] Performed By: #### 5 7021-8 ####[facility] [id number] [place] [address] [place] MCHC (RBC) [Mass/Vol] 30.8 g/dL Normal 30.5-36.0 [facility] Comment on above: Order Comment: Speci men Type: BLOOD SPECIMENOrdering Facility: [facility] Address: [address] [place] [address] Performed By: #### 5 7021-8 ####[facility] [id number] [place] [address] [place] MCV (RBC) [Entitic vol] 77.1 fL Low 80.0-100.0 [place] Comment on above: Order Comment: Speci men Type: BLOOD SPECIMENOrdering Facility: [facility] Address: [address] [place] [address] Performed By: #### 5 7021-8 ####[facility] MILLDREADWNCLIA [id number] [place] [address] [place] Monocytes (Bld) [#/Vol] 0.36 10*3/uL Normal <0.87 [place] Comment on above: Order Comment: Speci men Type: BLOOD SPECIMENOrdering Facility: [facility] Address: [address] [place] [address] Performed By: #### 5 7021-8 ####[facility] MILLWNCLIA [id number] [place] [address] [place] Monocytes/100 WBC (Bld) 12.4 % Normal [place] Comment on above: Order Comment: Speci men Type: BLOOD SPECIMENOrdering Facility: [facility] Address: [address] [place] [address] Performed By: #### 5 7021-8 ####[facility] PRIYAWNCLIA [id number] [place] [address] [place] Neutrophils (Bld) [#/Vol] 1.63 10*3/uL Normal 1.45-7.50 [place] Comment on above: Order Comment: Speci men Type: BLOOD SPECIMENOrdering Facility: [facility] Address: [address] [place] [address] Performed By: #### 5 7021-8 ####[facility] MILLTOWNCLIA [id number] [place] [address] [place] Neutrophils/100 WBC (Bld) 56.3 % Normal [place] Comment on above: Order Comment: Speci men Type: BLOOD SPECIMENOrdering Facility: [facility] Address: [address] [place] [address] Performed By: #### 5 7021-8 ####[facility] MILLTOWNCLIA [id number] [place] [address] [place] Nucleated RBC (Bld) [#/Vol] 10*3/uL Normal <0.01 [place] Comment on above: Order Comment: Speci men Type: BLOOD SPECIMENOrdering Facility: [facility] Address: [address] [place] [address] Performed By: #### 5 7021-8 ####[facility] [id number] [place] [address] [place] Nucleated RBC/100 WBC (Bld) [Ratio] 0.0 /100 WBC Normal [place] Comment on above: Order Comment: Speci men Type: BLOOD SPECIMENOrdering Facility: [facility] Address: [address] [place] [address] Performed By: #### 5 7021-8 ####[facility]GNoe [id number] [place] [address] [place] Platelet mean volume (Bld) [Entitic vol] 10.9 fL Normal 9.0-12.7 [place] Comment on above: Order Comment: Speci men Type: BLOOD SPECIMENOrdering Facility: [facility] Address: [address] [place] [address] Performed By: #### 5 7021-8 ####[facility] HOSPITALALEXANDERA [id number] [place] [address] [place] Platelets (Bld) [#/Vol] 96 10*3/uL Low 150-400 [place] Comment on above: Order Comment: Speci men Type: BLOOD SPECIMENOrdering Facility: [facility] Address: [address] [place] [address] Result Comment: No c lot detected. Performed By: #### 5 7021-8 ####[facility] HOSPITALNCLI [id number] [place] [address] [place] RBC (Bld) [#/Vol] 3.28 10*6/uL Low 3.90-5.20 [facility] Comment on above: Order Comment: Speci men Type: BLOOD SPECIMENOrdering Facility: [facility] Address: [address] [place] [address] Performed By: #### 5 7021-8 ####[facility] PRIYAKAIDENA [id number] [place] [address] [place] WBC (Bld) [#/Vol] 2.90 10*3/uL Low 3.70-11.00 [facility] Comment on above: Order Comment: Speci men Type: BLOOD SPECIMENOrdering Facility: [facility] Address: [address] [place] [address] Performed By: #### 5 7021-8 ####[facility] HOSPITALHAYLIE [id number] [place] [address] [place] CBC W Auto Differential pane l (Bld)on 03-11-2025 Basophils (Bld) [#/Vol] 10*3/uL Normal <0.11 [place] Comment on above: Order Comment: Speci men Type: BLOOD SPECIMENOrdering Facility: [facility] Address: [address] [place] [address] Performed By: #### 5 7021-8 ####[facility] HOSPITALALEXANDERA [id number] [place] [address] [place] Basophils/100 WBC (Bld) 0.3 % Normal [place] Comment on above: Order Comment: Speci men Type: BLOOD SPECIMENOrdering Facility: [facility] Address: [address] [place] [address] Performed By: #### 5 7021-8 ####[facility] HOSPITALCECILELIA [id number] [place] [address] [place] Differential cell count method Nom (Bld) Auto Normal [place] Comment on above: Order Comment: Speci men Type: BLOOD SPECIMENOrdering Facility: [facility] Address: [address] [place] [address] Performed By: #### 5 7021-8 ####[facility] PRIYAVANITA [id number] [place] [address] [place] Eosinophils (Bld) [#/Vol] 0.10 10*3/uL Normal <0.46 [place] Comment on above: Order Comment: Speci men Type: BLOOD SPECIMENOrdering Facility: [facility] Address: [address] [place] [address] Performed By: #### 5 7021-8 ####[facility] HOSPITALCECILEOGDEN REG[facility] [id number] [place] [address] [place] Eosinophils/100 WBC (Bld) 3.4 % Normal [place] Comment on above: Order Comment: Speci men Type: BLOOD SPECIMENOrdering Facility: [facility] Address: [address] [place] [address] Performed By: #### 5 7021-8 ####[facility] COMM[facility] HOSPITALNCNoe [id number] [place] [address] [place] Erythrocyte distribution width (RBC) [Ratio] 19.3 % High 11.5-15.0 [place] Comment on above: Order Comment: Speci men Type: BLOOD SPECIMENOrdering Facility: [facility] Address: [address] [place] [address] Performed By: #### 5 7021-8 ####[facility] HOSPITALNCLIA [id number] [place] [address] [place] Hematocrit (Bld) [Volume fraction] 24.8 % Low 36.0-46.0 [place] Comment on above: Order Comment: Speci men Type: BLOOD SPECIMENOrdering Facility: [facility] Address: [address] [place] [address] Performed By: #### 5 7021-8 ####[facility] PRIYAGIOVANNILIA [id number] [place] [address] [place] Hemoglobin (Bld) [Mass/Vol] 7.5 g/dL Low 11.5-15.5 [place] Comment on above: Order Comment: Speci men Type: BLOOD SPECIMENOrdering Facility: [facility] Address: [address] [place] [address] Performed By: #### 5 7021-8 ####[facility] HOSPITALCECILELIA [id number] [place] [address] [place] Immature granulocytes (Bld) [#/Vol] 10*3/uL Normal <0.10 [place] Comment on above: Order Comment: Speci men Type: BLOOD SPECIMENOrdering Facility: [facility] Address: [address] [place] [address] Performed By: #### 5 7021-8 ####[facility] [id number] [place] [address] [place] Immature granulocytes/100 WBC (Bld) 0.3 % Normal [place] Comment on above: Order Comment: Speci men Type: BLOOD SPECIMENOrdering Facility: [facility] Address: [address] [place] [address] Performed By: #### 5 7021-8 ####[facility] HOSPITALALEXANDERA [id number] [place] [address] [place] Lymphocytes (Bld) [#/Vol] 0.55 10*3/uL Low 1.00-4.00 [place] Comment on above: Order Comment: Speci men Type: BLOOD SPECIMENOrdering Facility: [facility] Address: [address] [place] [address] Performed By: #### 5 7021-8 ####[facility] COMM[facility] HOSPITALNCLI [id number] [place] [id number] [place] Lymphocytes/100 WBC (Bld) 18.6 % Normal [place] Comment on above: Order Comment: Speci men Type: BLOOD SPECIMENOrdering Facility: [facility] Address: [address] [place] [address] Performed By: #### 5 7021-8 ####[facility]OSPITALNCOGD[facility] [id number] [place] [address] [place] MCH (RBC) [Entitic mass] 24.0 pg Low 26.0-34.0 [place] Comment on above: Order Comment: Speci men Type: BLOOD SPECIMENOrdering Facility: [facility] Address: [address] [place] [address] Performed By: #### 5 7021-8 ####[facility] COMM[facility] HOSPITALNCLI [id number] [place] [address] [place] MCHC (RBC) [Mass/Vol] 30.2 g/dL Low 30.5-36.0 [facility] Comment on above: Order Comment: Speci men Type: BLOOD SPECIMENOrdering Facility: [facility] Address: [address] [place] [address] Performed By: #### 5 7021-8 ####[facility] COMM[facility] HOSPITALNCLIA [id number] [place] [address] [place] MCV (RBC) [Entitic vol] 79.5 fL Low 80.0-100.0 [place] Comment on above: Order Comment: Speci men Type: BLOOD SPECIMENOrdering Facility: [facility] Address: [address] [place] [address] Performed By: #### 5 7021-8 ####[facility] COMM[facility] HOSPITALNCLI [id number] [place] [address] [place] Monocytes (Bld) [#/Vol] 0.25 10*3/uL Normal <0.87 [place] Comment on above: Order Comment: Speci men Type: BLOOD SPECIMENOrdering Facility: [facility] Address: [address] [place] [address] Performed By: #### 5 7021-8 ####[facility] PRIYAKAIDENA [id number] [place] [address] [place] Monocytes/100 WBC (Bld) 8.5 % Normal [place] Comment on above: Order Comment: Speci men Type: BLOOD SPECIMENOrdering Facility: [facility] Address: [address] [place] [address] Performed By: #### 5 7021-8 ####[facility]PITALNCOGD[facility] [id number] [place] [address] [place] Neutrophils (Bld) [#/Vol] 2.03 10*3/uL Normal 1.45-7.50 [place] Comment on above: Order Comment: Speci men Type: BLOOD SPECIMENOrdering Facility: [facility] Address: [address] [place] [address] Performed By: #### 5 7021-8 ####[facility] [id number] [place] [address] [place] Neutrophils/100 WBC (Bld) 68.9 % Normal [place] Comment on above: Order Comment: Speci men Type: BLOOD SPECIMENOrdering Facility: [facility] Address: [address] [place] [address] Performed By: #### 5 7021-8 ####[facility] HOSPITALNCLIA [id number] [place] [address] [place] Nucleated RBC (Bld) [#/Vol] 10*3/uL Normal <0.01 [place] Comment on above: Order Comment: Speci men Type: BLOOD SPECIMENOrdering Facility: [facility] Address: [address] [place] [address] Performed By: #### 5 7021-8 ####[facility] HOSPITALNCLIA [id number] [place] [address] [place] Nucleated RBC/100 WBC (Bld) [Ratio] 0.0 /100 WBC Normal [place] Comment on above: Order Comment: Speci men Type: BLOOD SPECIMENOrdering Facility: [facility] Address: [address] [place] [address] Performed By: #### 5 7021-8 ####[facility] [id number] [place] [address] [place] Platelet mean volume (Bld) [Entitic vol] 10.3 fL Normal 9.0-12.7 [place] Comment on above: Order Comment: Speci men Type: BLOOD SPECIMENOrdering Facility: [facility] Address: [address] [place] [address] Performed By: #### 5 7021-8 ####[facility] COMM[facility] HOSPITALNCA [id number] [place] [address] [place] Platelets (Bld) [#/Vol] 85 10*3/uL Low 150-400 [place] Comment on above: Order Comment: Speci men Type: BLOOD SPECIMENOrdering Facility: [facility] Address: [address] [place] [address] Result Comment: No c lot detected. Performed By: #### 5 7021-8 ####[facility] [id number] [place] [address] [place] RBC (Bld) [#/Vol] 3.12 10*6/uL Low 3.90-5.20 [facility] Comment on above: Order Comment: Speci men Type: BLOOD SPECIMENOrdering Facility: [facility] Address: [address] [place] [address] Performed By: #### 5 7021-8 ####[facility]PITALNCOGD[facility] [id number] [place] [address] [place] WBC (Bld) [#/Vol] 2.95 10*3/uL Low 3.70-11.00 [facility] Comment on above: Order Comment: Speci men Type: BLOOD SPECIMENOrdering Facility: [facility] Address: [address] [place] [address] Performed By: #### 5 7021-8 ####[facility] HOSPITALLIA [id number] [place] [address] [place] CNOVSPon 03-11-2025 CNOVSP Normal [facility] metabolic 2000 panelon 03-11-2025 Albumin [Mass/Vol] 3.4 g/dL Low 3.9-4.9 [facility] Comment on above: Order Comment: Speci men Type: BLOOD SPECIMENOrdering Facility: [facility] Address: [address] [place] [address] Performed By: #### 2 4323-8 ####[facility] HOSPITALLIA [id number] [place] [address] [place] ALP [Catalytic activity/Vol] 148 U/L High 34-123 [place] Comment on above: Order Comment: Speci men Type: BLOOD SPECIMENOrdering Facility: [facility] Address: [address] [place] [address] Performed By: #### 2 4323-8 ####[facility] SOUTHWNCLIA [id number] [place] [address] [place] ALT [Catalytic activity/Vol] 11 U/L Normal 7-38 [place] Comment on above: Order Comment: Speci men Type: BLOOD SPECIMENOrdering Facility: [facility] Address: [address] [place] [address] Performed By: #### 2 4323-8 ####[facility] HOSPITALNCLIA [id number] [place] [address] [place] Anion gap [Moles/Vol] 10 mmol/L Normal 8-15 [facility] Comment on above: Order Comment: Speci men Type: BLOOD SPECIMENOrdering Facility: [facility] Address: [address] [place] [address] Performed By: #### 2 4323-8 ####[facility] SOUTHWNCLIA [id number] [place] [address] [place] AST [Catalytic activity/Vol] 17 U/L Normal 13-35 [place] Comment on above: Order Comment: Speci men Type: BLOOD SPECIMENOrdering Facility: [facility] Address: [address] [place] [address] Performed By: #### 2 4323-8 ####[facility] [id number] [place] [address] [place] Bilirubin [Mass/Vol] 0.6 mg/dL Normal 0.2-1.3 [facility] Comment on above: Order Comment: Speci men Type: BLOOD SPECIMENOrdering Facility: [facility] Address: [address] [place] [address] Performed By: #### 2 4323-8 ####[facility] HOSPITALLIA [id number] [place] [address] [place] Calcium [Mass/Vol] 9.1 mg/dL Normal 8.5-10.2 [facility] Comment on above: Order Comment: Speci men Type: BLOOD SPECIMENOrdering Facility: [facility] Address: [address] [place] [address] Performed By: #### 2 4323-8 ####[facility] HOSPITALNCLIA [id number] [place] [address] [place] Chloride [Moles/Vol] 108 mmol/L High 98-107 [facility] Comment on above: Order Comment: Speci men Type: BLOOD SPECIMENOrdering Facility: [facility] Address: [address] [place] [address] Performed By: #### 2 4323-8 ####[facility]PITALNCOGD[facility] [id number] [place] [address] [place] CO2 [Moles/Vol] 19 mmol/L Low 22-30 [place] Comment on above: Order Comment: Speci men Type: BLOOD SPECIMENOrdering Facility: [facility] Address: [address] [place] [address] Performed By: #### 2 4323-8 ####[facility]PITALNCOGD[facility] [id number] [place] [address] [place] Creatinine [Mass/Vol] 0.81 mg/dL Normal 0.58-0.96 [facility] Comment on above: Order Comment: Speci men Type: BLOOD SPECIMENOrdering Facility: [facility] Address: [address] [place] [address] Performed By: #### 2 4323-8 ####[facility]PITALNCOGD[facility] [id number] [address] [place] Creatinine and Glomerular filtration rate.predicted panel (S/P/Bld) 78 mL/min/1.73m??? Normal >=60 [place] Comment on above: Order Comment: Speci men Type: BLOOD SPECIMENOrdering Facility: [facility] Address: [address] [place] [address] Result Comment: Sally mated Glomerular Filtration Rate (eGFR) is calculated using the 2020 CKD-EPI creatinine equation. This equation utilizes serum creatinine, sex, and age as parameters. The creatinine assay has traceable calibration to isotope dilution-mass spectrometry. Refer to KDIGO guidelines for clinical interpretation. In patients with unstable renal function, e.g. those with acute kidney injury, the eGFR may not accurately reflect actual GFR. Performed By: #### 2 4323-8 ####[facility] SOUTHWNCLI [id number] [place] [address] [place] Glucose [Mass/Vol] 193 mg/dL High 74-99 [facility] Comment on above: Order Comment: Speci men Type: BLOOD SPECIMENOrdering Facility: [facility] Address: [address] [place] [address] Result Comment: The [place] [employer] (ADA) provides guidance for cutoff values for fasting glucose and random glucose. The ADA defines fasting as no caloric intake for at least 8 hours. Fasting plasma glucose results between 100 to 125 mg/dL indicate increased risk for diabetes (prediabetes).Fasting plasma glucose results greater than or equal to 126 mg/dL meet the criteria for diagnosis of diabetes. In the absence of unequivocal hyperglycemia, results should be confirmed by repeat testing. In a patient with classic symptoms of hyperglycemia or hyperglycemic crisis, random plasma glucose results greater than or equal to 200 mg/dL meet the criteria for diagnosis of diabetes.Reference: Standards of Medical Care in Diabetes 2016, [place] [employer]. Diabetes Care. 2016.39(Suppl 1). Performed By: #### 2 4323-8 ####[facility] MILLTOWNCLIA [id number] [place] [address] [place] Potassium [Moles/Vol] 3.5 mmol/L Low 3.7-5.1 [facility] Comment on above: Order Comment: Speci men Type: BLOOD SPECIMENOrdering Facility: [facility] Address: [address] [place] [address] Performed By: #### 2 4323-8 ####[facility] HOSPITALDREADWNCLIA [id number] [place] [address] [place] Protein [Mass/Vol] 5.5 g/dL Low 6.3-8.0 [facility] Comment on above: Order Comment: Speci men Type: BLOOD SPECIMENOrdering Facility: [facility] Address: [address] [place] [address] Performed By: #### 2 4323-8 ####[facility] MILLDREADWNCLIA [id number] [place] [address] [place] Sodium [Moles/Vol] 137 mmol/L Normal 136-144 [facility] Comment on above: Order Comment: Speci men Type: BLOOD SPECIMENOrdering Facility: [facility] Address: [address] [place] [address] Performed By: #### 2 4323-8 ####[facility] [id number] [place] [address] [place] Urea nitrogen [Mass/Vol] 18 mg/dL Normal 7-21 [place] Comment on above: Order Comment: Speci men Type: BLOOD SPECIMENOrdering Facility: [facility] Address: [address] [place] [address] Performed By: #### 2 4323-8 ####[facility] [id number] [place] [address] [place] [facility] 2024 Ferritin [Mass/Vol] 10.9 ng/mL Low 14.7-205.1 [facility] Comment on above: Order Comment: Speci men Type: BLOOD SPECIMENOrdering Facility: [facility] Address: [address] [place] [address] Performed By: #### 2 276-4, 71875-2, 9 ####[facility] LABCLIA [id number] [place] [address] [place] Iron and Iron binding capaci panelon 03-11-2025 Iron [Mass/Vol] 20 ug/dL Low 41-186 [place] Comment on above: Order Comment: Speci men Type: BLOOD SPECIMENOrdering Facility: [facility] Address: [address] [place] [address] Performed By: #### 2 276-4, 25294-3, 9 ####[facility] LABCLIA [id number] [place] [address] [place] Iron binding capacity [Mass/Vol] 357 ug/dL Normal 232-386 [place] Comment on above: Order Comment: Speci men Type: BLOOD SPECIMENOrdering Facility: [facility] Address: [address] [place] [address] Performed By: #### 2 276-4, 41685-9, 2132-05 ####[facility] LABCLIA [id number] [place] [address] [place] Iron/TIBC [Molar ratio] 5.6 % Low 15.0-57.0 [place] Comment on above: Order Comment: Speci men Type: BLOOD SPECIMENOrdering Facility: [facility] Address: [address] [place] [address] Performed By: #### 2 276-4, 72274-9, 2132-05 ####[facility] LABIA [id number] [place] [address] [place] Methylmalonate SerPl-sCncon 03-11-2025 Methylmalonate [Moles/Vol] 0.17 umol/L Normal <=0.40 [place] Comment on above: Order Comment: Speci [facility] Type: BLOOD SPECIMENOrdering Facility: [facility] Address: [address] [place] [address] Result Comment: This test was developed, and its performance characteristics determined by the [facility] Department of Pathology and Laboratory Medicine. It has not been cleared or approved by the FDA. The [facility] Department of Pathology and Laboratory Medicine is regulated under CLIA as qualified to perform high-complexity testing. This test is used for clinical purposes. It should not be regarded as investigational or for research. Performed By: #### 1 3964-2 ####[facility] LABCLIA [id number] [place] [id number] [place] Vit B12 SerPl-mCncon 025 Cobalamin (Vitamin B12) [Mass/Vol] 854 pg/mL Normal 232-1245 [place] Comment on above: Order Comment: Speci men Type: BLOOD SPECIMENOrdering Facility: [facility] Address: [facility] [place] [address] Performed By: #### 2 276-4, 56187-3, 2132-9 ####[facility] LABCLIA [id number] ROBINA BUFFALOFAUSTO [address] [place] L3410.9992on 03-02-2025 [facility]. COMMENT Normal . [facility] Comment on above: Order Comment: [id number] 6ELF TIGER RF Result Comment: Test Ordered: [id number] Enhanced Liver Fibrosis (ELF)ELF(TM) Score 11.75 [H ] BN Reference Range: <9.80ELF(TM) Score Interpretation:Risk cut-offs to assess the likelihood of progressionto cirrhosis and liver-related clinical events within3.9 years following baseline ELF score (IQR: 14.0-22.4months)*: Lower risk < 9.80 Mid risk 9.80 - 11.29 Higher risk >11.29Note: The ELF(TM) Score is a unitless numerical value.*Clovis SA, Andre SWANN, Aimee T, et al. Selonsertibfor patients with bridging fibrosis or compensatedcirrhosis due to HILARIO: Results from randomized phaseIII STELLAR trials. J Hepatol. 2020 Mar;73(1):26-39.Performed at: [address] [id number] Director: Sunny Rincon PhD, Phone: [phone] at: [address] [id number] Director: Magdy Davey MD, Phone: [phone] AMENDED REPORT 03/02/25 1708 [facility]. previously reported as: COMMENT Performed By: #### L 500.4050, L501.3620, L3400.0700, L503.6550, L300.3900, L3400.3800, L3200.1400, L3410.2970, L100.0100, L501.6710, L3410.9992 ####[facility] [address] [place], [place], [address] Ceruloplasminon 03-01-2025 CERULOPLASMIN 27.2 mg/dL Normal 19.0-39.0 [facility] Comment on above: Performed By: #### L 500.4050, L501.3620, L3400.0700, L503.6550, L300.3900, L3400.3800, L3200.1400, L3410.2970, L100.0100, L501.6710, L3410.9992 ####[facility] [address] [place], [address] Immunoglobulin Aon 5 IMMUNOGLOB A QN 194 mg/dL Normal 64-422 [facility] Comment on above: Order Comment: N Performed By: #### L 500.4050, L501.3620, L3400.0700, L503.6550, L300.3900, L3400.3800, L3200.1400, L3410.2970, L100.0100, L501.6710, L3410.9992 ####[facility] [address] [place], [place], [address] Transferrinon 03-01-2025 Transferrin [Mass/Vol] 309 mg/dL Normal 192-364 [facility] Comment on above: Result Comment: Perf ormed at: CB - [facility] [id number] Director: Sunny Rincon PhD, Phone: [phone] Performed By: #### L 500.4050, L501.3620, L3400.0700, L503.6550, L300.3900, L3400.3800, L3200.1400, L3410.2970, L100.0100, L501.6710, L3410.9992 ####[facility] [address] [place], [place], [address] t-Transglutaminase IgGon tTG IGG <2 Normal 0-5 [facility] Comment on above: Result Comment: Nega tive 0 - 5 Weak Positive 6 - 9 Positive >9 Performed By: #### L 500.4050, L501.3620, L3400.0700, L503.6550, L300.3900, L3400.3800, L3200.1400, L3410.2970, L100.0100, L501.6710, L3410.9992 ####[facility] [address] [place], [place], [phone] Absolute lymphocyte countOrd ered By: Deannher Haynes on 02-26-2025 Lymphocytes Auto (Unsp spec) [#/Vol] 0.48 10*3/uL Low 0.83-4.51 [facility] Absolute neutrophil countOrd ered By: Deannher Haynes on 02-26-2025 Neutrophils (Bld) [#/Vol] 1.8 10*3/uL Low 2.0-7.7 [facility] Anion gap in Serum or Plasma Ordered By: Deann Haynes on 02-26-2025 Anion gap [Moles/Vol] 10 mmol/L 5-15 [facility] Automated lymphocyte count a s percentage of total leukocytesOrdered By: Deann Haynes on 02-26-2025 Lymphocytes/100 WBC Auto (Unsp spec) 18.1 % Low 19-41 [facility] BUN/creatinine ratioOrdered By: Deannher Haynes on 02-26-2025 Urea nitrogen/Creatinine [Mass ratio] 13.6 mg/mg 10-20 [facility] Basophil percentageOrdered B y: Deann Haynes on 02-26-2025 Basophils/100 WBC (Bld) 0.8 % 0- [facility] Bilirubin, totalOrdered By: Deannher Haynes on 02-26-2025 Bilirubin [Mass/Vol] 0.87 mg/dL 0.00-1.30 [facility] CBC W/Diff, Automatedon 02-14 Absolute Lymph 0.48 X10 3/uL Low 0.83-4.51 [facility] Comment on above: Performed By: #### L 500.4050, L501.3620, L3400.0700, L503.6550, L300.3900, L3400.3800, L3200.1400, L3410.2970, L100.0100, L501.6710, L3410.9992 ####[facility] [address] [place], [address] Absolute Neut 1.8 X10 3/uL Low 2.0-7.7 [facility] Comment on above: Performed By: #### L 500.4050, L501.3620, L3400.0700, L503.6550, L300.3900, L3400.3800, L3200.1400, L3410.2970, L100.0100, L501.6710, L3410.9992 ####[facility] [address] [facility], [address] Basophils/100 WBC (Bld) 0.8 % Normal 0-1 [facility] Comment on above: Performed By: #### L 500.4050, L501.3620, L3400.0700, L503.6550, L300.3900, L3400.3800, L3200.1400, L3410.2970, L100.0100, L501.6710, L3410.9992 ####[facility] [address] [facility] [place], [address] Eosinophils/100 WBC (Bld) 3.0 % Normal 0-5 [facility] Comment on above: Performed By: #### L 500.4050, L501.3620, L3400.0700, L503.6550, L300.3900, L3400.3800, L3200.1400, L3410.2970, L100.0100, L501.6710, L3410.9992 ####[facility] [address] [place], [address] Erythrocyte distribution width (RBC) [Ratio] 19.1 % High 11.6-14.6 [facility] Comment on above: Performed By: #### L 500.4050, L501.3620, L3400.0700, L503.6550, L300.3900, L3400.3800, L3200.1400, L3410.2970, L100.0100, L501.6710, L3410.9992 ####[facility] [address] [place], [place], [phone] Hematocrit (Bld) [Volume fraction] 28.7 % Low 37-47 [facility] Comment on above: Performed By: #### L 500.4050, L501.3620, L3400.0700, L503.6550, L300.3900, L3400.3800, L3200.1400, L3410.2970, L100.0100, L501.6710, L3410.9992 ####[facility] [address] [place], [address]([phone]) Hemoglobin (Bld) [Mass/Vol] 8.7 g/dL Low 12.0-15.0 [facility] Comment on above: Performed By: #### L 500.4050, L501.3620, L3400.0700, L503.6550, L300.3900, L3400.3800, L3200.1400, L3410.2970, L100.0100, L501.6710, L3410.9992 ####[facility] [address] [place], [address] IG% 0.400 Normal 0.0-0.9 [facility] Comment on above: Result Comment: IG% - Immature Granulocytes (promyelocytes, myelocytes andmetamyelocytes) > 1% indicates that a LEFT SHIFT is Present. Performed By: #### L 500.4050, L501.3620, L3400.0700, L503.6550, L300.3900, L3400.3800, L3200.1400, L3410.2970, L100.0100, L501.6710, L3410.9992 ####[facility] [address] [place], [address] Lymphocytes/100 WBC (Bld) 18.1 % Low 19-41 [facility] Comment on above: Performed By: #### L 500.4050, L501.3620, L3400.0700, L503.6550, L300.3900, L3400.3800, L3200.1400, L3410.2970, L100.0100, L501.6710, L3410.9992 ####[facility] [address] [place], [address] MCH (RBC) [Entitic mass] 25.7 pg Low 27.0-32.0 [facility] Comment on above: Performed By: #### L 500.4050, L501.3620, L3400.0700, L503.6550, L300.3900, L3400.3800, L3200.1400, L3410.2970, L100.0100, L501.6710, L3410.9992 ####[facility] [address] [place], [address] MCHC (RBC) [Mass/Vol] 30.3 g/dL Low 32-36 [facility] Comment on above: Performed By: #### L 500.4050, L501.3620, L3400.0700, L503.6550, L300.3900, L3400.3800, L3200.1400, L3410.2970, L100.0100, L501.6710, L3410.9992 ####[facility] [address] [place], [address] MCV (RBC) [Entitic vol] 84.7 fL Normal 81-99 [facility] Comment on above: Performed By: #### L 500.4050, L501.3620, L3400.0700, L503.6550, L300.3900, L3400.3800, L3200.1400, L3410.2970, L100.0100, L501.6710, L3410.9992 ####[facility] [address] [place], [address] Monocytes/100 WBC (Bld) 9.8 % Normal 0-10 [facility] Comment on above: Performed By: #### L 500.4050, L501.3620, L3400.0700, L503.6550, L300.3900, L3400.3800, L3200.1400, L3410.2970, L100.0100, L501.6710, L3410.9992 ####[facility] [address] [place], [address] Neutrophils/100 WBC (Bld) 67.9 % Normal 47-70 [facility] Comment on above: Performed By: #### L 500.4050, L501.3620, L3400.0700, L503.6550, L300.3900, L3400.3800, L3200.1400, L3410.2970, L100.0100, L501.6710, L3410.9992 ####[facility] [address] [place], [place], [phone] Nucleated RBC (Bld) [#/Vol] 0 10*3/uL Normal 0-5 [facility] Comment on above: Performed By: #### L 500.4050, L501.3620, L3400.0700, L503.6550, L300.3900, L3400.3800, L3200.1400, L3410.2970, L100.0100, L501.6710, L3410.9992 ####[facility] [address] [place], [place], [phone] Platelet mean volume (Bld) [Entitic vol] 10.7 fL Normal 6.2-12.0 [facility] Comment on above: Performed By: #### L 500.4050, L501.3620, L3400.0700, L503.6550, L300.3900, L3400.3800, L3200.1400, L3410.2970, L100.0100, L501.6710, L3410.9992 ####[facility] [address] [place], [address] Platelets (Bld) [#/Vol] 110 10*3/uL Low 150-450 [facility] Comment on above: Performed By: #### L 500.4050, L501.3620, L3400.0700, L503.6550, L300.3900, L3400.3800, L3200.1400, L3410.2970, L100.0100, L501.6710, L3410.9992 ####[facility] [address] [place], [address] RBC (Bld) [#/Vol] 3.39 10*6/uL Low 4.2-5.4 [facility] Comment on above: Performed By: #### L 500.4050, L501.3620, L3400.0700, L503.6550, L300.3900, L3400.3800, L3200.1400, L3410.2970, L100.0100, L501.6710, L3410.9992 ####[facility] [address] [place], [address]( RDW SD 57.5 fl High 35.1-43.9 [facility] Comment on above: Performed By: #### L 500.4050, L501.3620, L3400.0700, L503.6550, L300.3900, L3400.3800, L3200.1400, L3410.2970, L100.0100, L501.6710, L3410.9992 ####[facility] [address] [place], [address] WBC (Bld) [#/Vol] 2.7 10*3/uL Low 4.4-11.0 [facility] Comment on above: Performed By: #### L 500.4050, L501.3620, L3400.0700, L503.6550, L300.3900, L3400.3800, L3200.1400, L3410.2970, L100.0100, L501.6710, L3410.9992 ####[facility] [address] [place], [address] CPK Total, Creatine Kinaseon 02-26-2025 CPK TOTAL 56 U/L Normal 24-195 [facility] Comment on above: Performed By: #### L 500.4050, L501.3620, L3400.0700, L503.6550, L300.3900, L3400.3800, L3200.1400, L3410.2970, L100.0100, L501.6710, L3410.9992 ####[facility] [address] [place], [place], [phone] CRPon 02-26-2025 C-REACTIVE PROT < 3.00 Normal 0.0-3.0 [facility] Comment on above: Performed By: #### L 500.4050, L501.3620, L3400.0700, L503.6550, L300.3900, L3400.3800, L3200.1400, L3410.2970, L100.0100, L501.6710, L3410.9992 ####[facility] [address] [place], [place], [phone] Carbon dioxide, total [Moles /volume] in Central venous bloodOrdered By: Deann Haynes on 02-26-2025 CO2 [Moles/Vol] 22.7 mmol/L 21.0-32.0 [facility] Chloride assayOrdered By: Bal Haynes on 02-26-2025 Chloride [Moles/Vol] 105 mmol/L 98-108 [facility] Comprehensive Metabolic Prof ilon 02-26-2025 Albumin [Mass/Vol] 3.8 g/dL Normal 3.4-4.8 [facility] Comment on above: Performed By: #### L 500.4050, L501.3620, L3400.0700, L503.6550, L300.3900, L3400.3800, L3200.1400, L3410.2970, L100.0100, L501.6710, L3410.9992 ####[facility] [address] [place], [place], [phone] Albumin/Globulin [Mass ratio] 1.6 {ratio} Normal 0.9-2.4 [facility] Comment on above: Performed By: #### L 500.4050, L501.3620, L3400.0700, L503.6550, L300.3900, L3400.3800, L3200.1400, L3410.2970, L100.0100, L501.6710, L3410.9992 ####[facility] [address] [place], [place], [phone] ALK PHOS 169 U/L High 35-104 [facility] Comment on above: Performed By: #### L 500.4050, L501.3620, L3400.0700, L503.6550, L300.3900, L3400.3800, L3200.1400, L3410.2970, L100.0100, L501.6710, L3410.9992 ####[facility] [address] [place], [place], [phone] ALT [Catalytic activity/Vol] 16 U/L Normal <=34 [facility] Comment on above: Performed By: #### L 500.4050, L501.3620, L3400.0700, L503.6550, L300.3900, L3400.3800, L3200.1400, L3410.2970, L100.0100, L501.6710, L3410.9992 ####[facility] [address] [place], [place], [phone] AST [Catalytic activity/Vol] 23 U/L Normal <=31 [facility] Comment on above: Performed By: #### L 500.4050, L501.3620, L3400.0700, L503.6550, L300.3900, L3400.3800, L3200.1400, L3410.2970, L100.0100, L501.6710, L3410.9992 ####[facility] [address] [place], [address] Bilirubin [Mass/Vol] 0.87 mg/dL Normal 0.00-1.30 [facility] Comment on above: Performed By: #### L 500.4050, L501.3620, L3400.0700, L503.6550, L300.3900, L3400.3800, L3200.1400, L3410.2970, L100.0100, L501.6710, L3410.9992 ####[facility] [address] [place], [place], [phone] BUN/CRE 13.6 RATIO Normal 10-20 [facility] Comment on above: Performed By: #### L 500.4050, L501.3620, L3400.0700, L503.6550, L300.3900, L3400.3800, L3200.1400, L3410.2970, L100.0100, L501.6710, L3410.9992 ####[facility] [address] [place], [address] Calcium [Mass/Vol] 9.4 mg/dL Normal 7.6-11.0 [facility] Comment on above: Performed By: #### L 500.4050, L501.3620, L3400.0700, L503.6550, L300.3900, L3400.3800, L3200.1400, L3410.2970, L100.0100, L501.6710, L3410.9992 ####[facility] [address] [place], [place], [phone] Chloride [Moles/Vol] 105 mmol/L Normal 98-108 [facility] Comment on above: Performed By: #### L 500.4050, L501.3620, L3400.0700, L503.6550, L300.3900, L3400.3800, L3200.1400, L3410.2970, L100.0100, L501.6710, L3410.9992 ####[facility] [address] [place], [place], [phone] CO2 [Moles/Vol] 22.7 mmol/L Normal 21.0-32.0 [facility] Comment on above: Performed By: #### L 500.4050, L501.3620, L3400.0700, L503.6550, L300.3900, L3400.3800, L3200.1400, L3410.2970, L100.0100, L501.6710, L3410.9992 ####[facility] [address] [place], [place], [phone] Creatinine [Mass/Vol] 0.98 mg/dL Normal 0.70-1.20 [facility] Comment on above: Performed By: #### L 500.4050, L501.3620, L3400.0700, L503.6550, L300.3900, L3400.3800, L3200.1400, L3410.2970, L100.0100, L501.6710, L3410.9992 ####[facility] [address] [place], [place], [phone] GAP 10 Normal 5-15 [facility] Comment on above: Performed By: #### L 500.4050, L501.3620, L3400.0700, L503.6550, L300.3900, L3400.3800, L3200.1400, L3410.2970, L100.0100, L501.6710, L3410.9992 ####[facility] [address] [place], [address] GFR/1.73 sq M.predicted among non-blacks MDRD (S/P/Bld) [Vol rate/Area] 62 mL/min/{1.73_m2} Normal >60 [facility] Comment on above: Result Comment: mL/m in/1.73m2 CKD-EPI Creatinine Equation (2020) Performed By: #### L 500.4050, L501.3620, L3400.0700, L503.6550, L300.3900, L3400.3800, L3200.1400, L3410.2970, L100.0100, L501.6710, L3410.9992 ####[facility] [address] [place], [phone]) Globulin (S) [Mass/Vol] 2.3 g/dL Normal 2.2-4.2 [facility] Comment on above: Performed By: #### L 500.4050, L501.3620, L3400.0700, L503.6550, L300.3900, L3400.3800, L3200.1400, L3410.2970, L100.0100, L501.6710, L3410.9992 ####[facility] [address] [place], [phone]) Glucose [Mass/Vol] 162 mg/dL High 70-99 [facility] Comment on above: Performed By: #### L 500.4050, L501.3620, L3400.0700, L503.6550, L300.3900, L3400.3800, L3200.1400, L3410.2970, L100.0100, L501.6710, L3410.9992 ####[facility] [address] [place], [phone]) Potassium [Moles/Vol] 3.6 mmol/L Normal 3.3-5.1 [facility] Comment on above: Performed By: #### L 500.4050, L501.3620, L3400.0700, L503.6550, L300.3900, L3400.3800, L3200.1400, L3410.2970, L100.0100, L501.6710, L3410.9992 ####[facility] [address] [place], [address] Sodium [Moles/Vol] 138 mmol/L Normal 133-145 [facility] Comment on above: Performed By: #### L 500.4050, L501.3620, L3400.0700, L503.6550, L300.3900, L3400.3800, L3200.1400, L3410.2970, L100.0100, L501.6710, L3410.9992 ####[facility] [address] [place], [place], [phone] T PROT 6.1 g/dL Normal 5.9-8.4 [facility] Comment on above: Performed By: #### L 500.4050, L501.3620, L3400.0700, L503.6550, L300.3900, L3400.3800, L3200.1400, L3410.2970, L100.0100, L501.6710, L3410.9992 ####[facility] [address] [place], [place], [phone] Urea nitrogen [Mass/Vol] 13 mg/dL Normal 4-19 [facility] Comment on above: Performed By: #### L 500.4050, L501.3620, L3400.0700, L503.6550, L300.3900, L3400.3800, L3200.1400, L3410.2970, L100.0100, L501.6710, L3410.9992 ####[facility] [address] [place], [address] Eosinophil percentageOrdered By: Deann Haynes on 02-26-2025 Eosinophils/100 WBC (Bld) 3.0 % 0-5 [facility] Erythrocyte distribution wid th ratioOrdered By: Deann Haynes on 02-26-2025 Erythrocyte distribution width (RBC) [Ratio] 19.1 % High 11.6-14.6 [facility] Erythrocyte distribution wid th standard deviationOrdered By: Deann Haynes on 02-26-2025 Erythrocyte distribution width (RBC) [Ratio] 57.5 fl High 35.1-43.9 [facility] Ferritinon 02-26-2025 Ferritin [Mass/Vol] 16 ng/mL Low 22-378 [facility] Comment on above: Performed By: #### L 500.4050, L501.3620, L3400.0700, L503.6550, L300.3900, L3400.3800, L3200.1400, L3410.2970, L100.0100, L501.6710, L3410.9992 ####[facility] [address] [place], [place], [phone] Gastroenterology Visit Repor ton 02-26-2025 Gastroenterology Visit Report Normal [facility] Glomerular filtration rate ( GFR) estimation/1.73 sq m using serum, plasma, or whole bOrdered By: Deann Haynes on 02-26-2025 GFR/1.73 sq M.predicted among non-blacks MDRD (S/P/Bld) [Vol rate/Area] 62 mL/min/{1.73_m2} >60 [facility] Comment on above: mL/min/1.73m2 CKD-EP I Creatinine Equation (2020) Hematocrit Auto (Bld) [Volum e fraction]Ordered By: Deann Haynes on 02-26-2025 Hematocrit (Bld) [Volume fraction] 28.7 % Low 37-47 [facility] Hemoglobin measurementOrdere d By: Deann Haynes on 02-26-2025 Hemoglobin (Bld) [Mass/Vol] 8.7 g/dL Low 12.0-15.0 [facility] Immature granulocytes/100 WB C Auto (Bld)Ordered By: Deann Haynes on 02-26-2025 Immature granulocytes/100 WBC (Bld) 0.400 % 0.0-0.9 [facility] Comment on above: IG% - Immature Granu locytes (promyelocytes, myelocytes and metamyelocytes) > 1% indicates that a LEFT SHIFT is Present. International normalized rat io (INR) calculationOrdered By: Deann Haynes on 02-26-2025 INR Coag (Bld) [Relative time] 1.1 {INR} [facility] Laboratory - Chemistry and C hemistry - challengeOrdered By: Deann Haynes on 02-26-2025 AST [Catalytic activity/Vol] 23 U/L <32 [facility] MCV (mean corpuscular volume ) determinationOrdered By: Deann Haynes on 02-26-2025 MCV (RBC) [Entitic vol] 84.7 fL 81-99 [facility] Mean corpuscular hemoglobin (MCH) determinationOrdered By: Deann Haynes on 02-26-2025 MCH (RBC) [Entitic mass] 25.7 pg Low 27.0-32.0 [facility] Mean corpuscular hemoglobin concentration (MCHC) determinationOrdered By: Deann Haynes on 02-26-2025 MCHC (RBC) [Mass/Vol] 30.3 g/dL Low 32-36 [facility] Mean platelet volume determi nationOrdered By: Deann Haynes on 02-26-2025 Platelet mean volume (Bld) [Entitic vol] 10.7 fL 6.2-12.0 [facility] Monocyte percentageOrdered B y: Deann Haynes on 02-26-2025 Monocytes/100 WBC (Bld) 9.8 % 0-10 [facility] Neutrophil percentageOrdered By: Deann Haynes on 02-26-2025 Neutrophils/100 WBC (Bld) 67.9 % 47-70 [facility] No Panel InformationOrdered By: Deann Haynes on 02-26-2025 Tissue Transglutaminase IgG Ab <2 U/mL 0-5 [facility] Comment on above: Negative 0 - 5 Weak Positive 6 - 9 Positive >9 Nucleated red blood cell per centageOrdered By: Deann Haynes on 02-26-2025 Nucleated RBC/100 WBC (Bld) [Ratio] 0 % 0-5 [facility] Platelet countOrdered By: Bal Haynes on 02-26-2025 Platelets (Bld) [#/Vol] 110 10*3/uL Low 150-450 [facility] Potassium measurement (mass/ volume)Ordered By: Deann Haynes on 02-26-2025 Potassium (Unsp spec) [Mass/Vol] 3.6 mmol/L 3.3-5.1 [facility] Prothrombin Time w/INRon INR Coag (PPP) [Relative time] 1.1 {INR} Normal [facility] Comment on above: Performed By: #### L 500.4050, L501.3620, L3400.0700, L503.6550, L300.3900, L3400.3800, L3200.1400, L3410.2970, L100.0100, L501.6710, L3410.9992 ####[facility] [address] [place], [place], [phone] PT Coag (PPP) [Time] 14.4 s Normal 11.7-14.9 [facility] Comment on above: Performed By: #### L 500.4050, L501.3620, L3400.0700, L503.6550, L300.3900, L3400.3800, L3200.1400, L3410.2970, L100.0100, L501.6710, L3410.9992 ####[facility] [address] [place], [place], [phone] Prothrombin timeOrdered By: Deann Haynes on 02-26-2025 PT Coag (PPP) [Time] 14.4 s 11.7-14.9 [facility] RBC Auto (Bld) [#/Vol]Ordere d By: Deann Haynes on 02-26-2025 RBC (Bld) [#/Vol] 3.39 10*6/uL Low 4.2-5.4 [facility] Serum creatinine measurement (mass/volume)Ordered By: Deann Haynes on 02-26-2025 Creatinine [Mass/Vol] 0.98 mg/dL 0.70-1.20 [facility] Serum globulin measurementOr dered By: Deann Haynes on 02-26-2025 Globulin (S) [Mass/Vol] 2.3 g/dL 2.2-4.2 [facility] Serum glucose measurement (m ass/volume)Ordered By: Deann Haynes on 02-26-2025 Glucose [Mass/Vol] 162 mg/dL High 70-99 [facility] Serum or plasma C reactive p rotein measurement (mass/volume)Ordered By: Deann Haynes on 02-26-2025 CRP [Mass/Vol] mg/L 0.0-3.0 [facility] Serum or plasma IgA measurem ent (mass/volume)Ordered By: Deann Haynes on 02-26-2025 IgA [Mass/Vol] 194 mg/dL 64-422 [facility] Serum or plasma alanine bridges otransferase (ALT) measurementOrdered By: Deann Haynes on 02-26-2025 ALT [Catalytic activity/Vol] 16 U/L <35 [facility] Serum or plasma albumin corina urement (mass/volume)Ordered By: Deann Haynes on 02-26-2025 Albumin [Mass/Vol] 3.8 g/dL 3.4-4.8 [facility] Serum or plasma albumin/glob ulin mass ratioOrdered By: Deann Haynes on 02-26-2025 Albumin/Globulin [Mass ratio] 1.6 {ratio} 0.9-2.4 [facility] Serum or plasma alkaline radha sphatase measurementOrdered By: Deann Haynes on 02-26-2025 ALP [Catalytic activity/Vol] 169 U/L High 35-104 [facility] Serum or plasma calcium corina urement (mass/volume)Ordered By: Deann Haynes on 02-26-2025 Calcium [Mass/Vol] 9.4 mg/dL 7.6-11.0 [facility] Serum or plasma creatine kin ase activityOrdered By: Deann Haynes on 02-26-2025 CK [Catalytic activity/Vol] 56 U/L 24-195 [facility] Serum or plasma ferritin haroldo surement (mass/volume)Ordered By: Deann Haynes on 02-26-2025 Ferritin [Mass/Vol] 16 ng/mL Low 22-378 [facility] Serum or plasma urea nitroge n measurement (mass/volume)Ordered By: Deann Haynes on 02-26-2025 Urea nitrogen [Mass/Vol] 13 mg/dL 4-19 [facility] Sodium levelOrdered By: Ladonna Haynes on 02-26-2025 Sodium [Moles/Vol] 138 mmol/L 133-145 [facility] Total proteinOrdered By: Dennise Haynes on 02-26-2025 Protein [Mass/Vol] 6.1 g/dL 5.9-8.4 [facility] TransferrinOrdered By: Suraj Haynes on 02-26-2025 Transferrin [Mass/Vol] 309 mg/dL 192-364 [facility] Comment on above: Performed at: [address] [id number] Director: Sunny Rincon PhD, Phone: [phone] White blood cell (WBC) count Ordered By: Deann Haynes on 02-26-2025 WBC (Bld) [#/Vol] 2.7 10*3/uL Low 4.4-11.0 [facility] Basic Metabolic Profile (BMP )on 02-18-2025 BUN Normal 4-19 [facility] Comment on above: Result Comment: Canc elled via OM: Order cancelled - Patient discharged Performed By: #### L 100.0100, L500.2500 ####[facility] [address] [facility] [address] BUN/CRE Normal 10-20 [facility] Comment on above: Result Comment: Canc elled via OM: Order cancelled - Patient discharged Performed By: #### L 100.0100, L500.2500 ####[facility] [address] [facility] [address] Calcium Normal 7.6-11.0 [facility] Comment on above: Result Comment: Canc elled via OM: Order cancelled - Patient discharged Performed By: #### L 100.0100, L500.2500 ####[facility] [address] [place], [address] CL Normal 98-108 [facility] Comment on above: Result Comment: Canc elled via OM: Order cancelled - Patient discharged Performed By: #### L 100.0100, L500.2500 ####[facility] [address] [place], [address] CO2 Normal 21.0-32.0 [facility] Comment on above: Result Comment: Canc elled via OM: Order cancelled - Patient discharged Performed By: #### L 100.0100, L500.2500 ####[facility] [address] [place], [address] CREAT,SERUM Normal 0.70-1.20 [facility] Comment on above: Result Comment: Canc elled via OM: Order cancelled - Patient discharged Performed By: #### L 100.0100, L500.2500 ####[facility] [address] [place], [address] eGFR Normal >60 [facility] Comment on above: Result Comment: Canc elled via OM: Order cancelled - Patient discharged Performed By: #### L 100.0100, L500.2500 ####[facility] [address] [place], [address] GAP Normal 5-15 [facility] Comment on above: Result Comment: Canc elled via OM: Order cancelled - Patient discharged Performed By: #### L 100.0100, L500.2500 ####[facility] [address] [place], [address] GLU Normal 70-99 [facility] Comment on above: Result Comment: Canc elled via OM: Order cancelled - Patient discharged Performed By: #### L 100.0100, L500.2500 ####[facility] [address] [place], [address] Potassium Normal 3.3-5.1 [facility] Comment on above: Result Comment: Canc elled via OM: Order cancelled - Patient discharged Performed By: #### L 100.0100, L500.2500 ####[facility] [address] [place], [address] Basic Metabolic Profile (BMP) Normal 133-145 [facility] Comment on above: Result Comment: Canc elled via OM: Order cancelled - Patient discharged Performed By: #### L 100.0100, L500.2500 ####[facility] [address] [place], [address] CBC W/Diff, Automatedon 06-0 -2024 Absolute Neut Normal 2.0-7.7 [facility] Comment on above: Result Comment: Canc elled via OM: Order cancelled - Patient discharged Performed By: #### L 100.0100, L500.2500 ####[facility] [address] [place], [address] HCT Normal 37-47 [facility] Comment on above: Result Comment: Canc elled via OM: Order cancelled - Patient discharged Performed By: #### L 100.0100, L500.2500 ####[facility] [address] [place], [address] HGB Normal 12.0-15.0 [facility] Comment on above: Result Comment: Canc elled via OM: Order cancelled - Patient discharged Performed By: #### L 100.0100, L500.2500 ####[facility] [address] [place], [address] MCH Normal 27.0-32.0 [facility] Comment on above: Result Comment: Canc elled via OM: Order cancelled - Patient discharged Performed By: #### L 100.0100, L500.2500 ####[facility] [address] [place], [address] MCHC Normal 32-36 [facility] Comment on above: Result Comment: Canc elled via OM: Order cancelled - Patient discharged Performed By: #### L 100.0100, L500.2500 ####[facility] [address] [place], [address] MCV Normal 81-99 [facility] Comment on above: Result Comment: Canc elled via OM: Order cancelled - Patient discharged Performed By: #### L 100.0100, L500.2500 ####[facility] [address] [place], [address] NEUT% Normal 47-70 [facility] Comment on above: Result Comment: Canc elled via OM: Order cancelled - Patient discharged Performed By: #### L 100.0100, L500.2500 ####[facility] [address] [place], [address] PLT Normal 150-450 [facility] Comment on above: Result Comment: Canc elled via OM: Order cancelled - Patient discharged Performed By: #### L 100.0100, L500.2500 ####[facility] [address] [place], [address] RBC Normal 4.2-5.4 [facility] Comment on above: Result Comment: Canc elled via OM: Order cancelled - Patient discharged Performed By: #### L 100.0100, L500.2500 ####[facility] [address] [place], [address] RDW CV Normal 11.6-14.6 [facility] Comment on above: Result Comment: Canc elled via OM: Order cancelled - Patient discharged Performed By: #### L 100.0100, L500.2500 ####[facility] [address] [place], [address] RDW SD Normal 35.1-43.9 [facility] Comment on above: Result Comment: Canc elled via OM: Order cancelled - Patient discharged Performed By: #### L 100.0100, L500.2500 ####[facility] [address] [place], [address] WBC Normal 4.4-11.0 [facility] Comment on above: Result Comment: Canc elled via OM: Order cancelled - Patient discharged Performed By: #### L 100.0100, L500.2500 ####[facility] [address] [place], [address] Basic Metabolic Profile (BMP )on 02-17-2025 BUN Normal 4-19 [facility] Comment on above: Result Comment: Canc elled via OM: Order cancelled - Patient discharged Performed By: #### L 100.0100, L500.2500 ####[facility] [address] [place], [address] BUN/CRE Normal 10-20 [facility] Comment on above: Result Comment: Canc elled via OM: Order cancelled - Patient discharged Performed By: #### L 100.0100, L500.2500 ####[facility] [address] [place], [address] Calcium Normal 7.6-11.0 [facility] Comment on above: Result Comment: Canc elled via OM: Order cancelled - Patient discharged Performed By: #### L 100.0100, L500.2500 ####[facility] [address] [place], [address] CL Normal 98-108 [facility] Comment on above: Result Comment: Canc elled via OM: Order cancelled - Patient discharged Performed By: #### L 100.0100, L500.2500 ####[facility] [address] [place], [address] CO2 Normal 21.0-32.0 [facility] Comment on above: Result Comment: Canc elled via OM: Order cancelled - Patient discharged Performed By: #### L 100.0100, L500.2500 ####[facility] [address] [place], [address] CREAT,SERUM Normal 0.70-1.20 [facility] Comment on above: Result Comment: Canc elled via OM: Order cancelled - Patient discharged Performed By: #### L 100.0100, L500.2500 ####[facility] [address] [place], [address] eGFR Normal >60 [facility] Comment on above: Result Comment: Canc elled via OM: Order cancelled - Patient discharged Performed By: #### L 100.0100, L500.2500 ####[facility] [address] [place], [address] GAP Normal 5-15 [facility] Comment on above: Result Comment: Canc elled via OM: Order cancelled - Patient discharged Performed By: #### L 100.0100, L500.2500 ####[facility] [address] [place], [address] GLU Normal 70-99 [facility] Comment on above: Result Comment: Canc elled via OM: Order cancelled - Patient discharged Performed By: #### L 100.0100, L500.2500 ####[facility] [address] [place], [address] Potassium Normal 3.3-5.1 [facility] Comment on above: Result Comment: Canc elled via OM: Order cancelled - Patient discharged Performed By: #### L 100.0100, L500.2500 ####[facility] [address] [place], [address] Basic Metabolic Profile (BMP) Normal 133-145 [facility] Comment on above: Result Comment: Canc elled via OM: Order cancelled - Patient discharged Performed By: #### L 100.0100, L500.2500 ####[facility] [address] [place], [address] CBC W/Diff, Automatedon 06-0 Absolute Neut Normal 2.0-7.7 [facility] Comment on above: Result Comment: Canc elled via OM: Order cancelled - Patient discharged Performed By: #### L 100.0100, L500.2500 ####[facility] [address] [place], [address] HCT Normal 37-47 [facility] Comment on above: Result Comment: Canc elled via OM: Order cancelled - Patient discharged Performed By: #### L 100.0100, L500.2500 ####[facility] [address] [place], [address] HGB Normal 12.0-15.0 [facility] Comment on above: Result Comment: Canc elled via OM: Order cancelled - Patient discharged Performed By: #### L 100.0100, L500.2500 ####[facility] [address] [place], [address] MCH Normal 27.0-32.0 [facility] Comment on above: Result Comment: Canc elled via OM: Order cancelled - Patient discharged Performed By: #### L 100.0100, L500.2500 ####[facility] [address] [place], [address] MCHC Normal 32-36 [facility] Comment on above: Result Comment: Canc elled via OM: Order cancelled - Patient discharged Performed By: #### L 100.0100, L500.2500 ####[facility] [address] [place], [address] MCV Normal 81-99 [facility] Comment on above: Result Comment: Canc elled via OM: Order cancelled - Patient discharged Performed By: #### L 100.0100, L500.2500 ####[facility] [address] [place], [address] NEUT% Normal 47-70 [facility] Comment on above: Result Comment: Canc elled via OM: Order cancelled - Patient discharged Performed By: #### L 100.0100, L500.2500 ####[facility] [address] [place], [address] PLT Normal 150-450 [facility] Comment on above: Result Comment: Canc elled via OM: Order cancelled - Patient discharged Performed By: #### L 100.0100, L500.2500 ####[facility] [address] [place], [address] RBC Normal 4.2-5.4 [facility] Comment on above: Result Comment: Canc elled via OM: Order cancelled - Patient discharged Performed By: #### L 100.0100, L500.2500 ####[facility] [address] [place], [address] RDW CV Normal 11.6-14.6 [facility] Comment on above: Result Comment: Canc elled via OM: Order cancelled - Patient discharged Performed By: #### L 100.0100, L500.2500 ####[facility] [address] [place], [address] RDW SD Normal 35.1-43.9 [facility] Comment on above: Result Comment: Canc elled via OM: Order cancelled - Patient discharged Performed By: #### L 100.0100, L500.2500 ####[facility] [address] [place], [address] WBC Normal 4.4-11.0 [facility] Comment on above: Result Comment: Canc elled via OM: Order cancelled - Patient discharged Performed By: #### L 100.0100, L500.2500 ####[facility] [address] [place], [address] Basic Metabolic Profile (BMP )on 02-16-2025 BUN Normal 4-19 [facility] Comment on above: Result Comment: Canc elled via OM: Order cancelled - Patient discharged Performed By: #### L 500.2500, L100.0100 ####[facility] [address] [place], [address] BUN/CRE Normal 10-20 [facility] Comment on above: Result Comment: Canc elled via OM: Order cancelled - Patient discharged Performed By: #### L 500.2500, L100.0100 ####[facility] [address] [place], [address] Calcium Normal 7.6-11.0 [facility] Comment on above: Result Comment: Canc elled via OM: Order cancelled - Patient discharged Performed By: #### L 500.2500, L100.0100 ####[facility] [address] [place], [address] CL Normal 98-108 [facility] Comment on above: Result Comment: Canc elled via OM: Order cancelled - Patient discharged Performed By: #### L 500.2500, L100.0100 ####[facility] [address] [place], [address] CO2 Normal 21.0-32.0 [facility] Comment on above: Result Comment: Canc elled via OM: Order cancelled - Patient discharged Performed By: #### L 500.2500, L100.0100 ####[facility] [address] [place], [address] CREAT,SERUM Normal 0.70-1.20 [facility] Comment on above: Result Comment: Canc elled via OM: Order cancelled - Patient discharged Performed By: #### L 500.2500, L100.0100 ####[facility] [address] [place], [address] eGFR Normal >60 [facility] Comment on above: Result Comment: Canc elled via OM: Order cancelled - Patient discharged Performed By: #### L 500.2500, L100.0100 ####[facility] [address] [place], [address] GAP Normal 5-15 [facility] Comment on above: Result Comment: Canc elled via OM: Order cancelled - Patient discharged Performed By: #### L 500.2500, L100.0100 ####[facility] [address] [place], [address] GLU Normal 70-99 [facility] Comment on above: Result Comment: Canc elled via OM: Order cancelled - Patient discharged Performed By: #### L 500.2500, L100.0100 ####[facility] [address] [place], [address] Potassium Normal 3.3-5.1 [facility] Comment on above: Result Comment: Canc elled via OM: Order cancelled - Patient discharged Performed By: #### L 500.2500, L100.0100 ####[facility] [address] [place], [address] Basic Metabolic Profile (BMP) Normal 133-145 [facility] Comment on above: Result Comment: Canc elled via OM: Order cancelled - Patient discharged Performed By: #### L 500.2500, L100.0100 ####[facility] [address] [place], [address] CBC W/Diff, Automatedon 06-0 -2024 Absolute Neut Normal 2.0-7.7 [facility] Comment on above: Result Comment: Canc elled via OM: Order cancelled - Patient discharged Performed By: #### L 500.2500, L100.0100 ####[facility] [address] [place], [address] HCT Normal 37-47 [facility] Comment on above: Result Comment: Canc elled via OM: Order cancelled - Patient discharged Performed By: #### L 500.2500, L100.0100 ####[facility] [address] [place], [address] HGB Normal 12.0-15.0 [facility] Comment on above: Result Comment: Canc elled via OM: Order cancelled - Patient discharged Performed By: #### L 500.2500, L100.0100 ####[facility] [address] [place], [address] MCH Normal 27.0-32.0 [facility] Comment on above: Result Comment: Canc elled via OM: Order cancelled - Patient discharged Performed By: #### L 500.2500, L100.0100 ####[facility] [address] [place], [address] MCHC Normal 32-36 [facility] Comment on above: Result Comment: Canc elled via OM: Order cancelled - Patient discharged Performed By: #### L 500.2500, L100.0100 ####[facility] [address] [place], [address] MCV Normal 81-99 [facility] Comment on above: Result Comment: Canc elled via OM: Order cancelled - Patient discharged Performed By: #### L 500.2500, L100.0100 ####[facility] [address] [place], [address] NEUT% Normal 47-70 [facility] Comment on above: Result Comment: Canc elled via OM: Order cancelled - Patient discharged Performed By: #### L 500.2500, L100.0100 ####[facility] [address] [place], [address] PLT Normal 150-450 [facility] Comment on above: Result Comment: Canc elled via OM: Order cancelled - Patient discharged Performed By: #### L 500.2500, L100.0100 ####[facility] [address] [place], [address] RBC Normal 4.2-5.4 [facility] Comment on above: Result Comment: Canc elled via OM: Order cancelled - Patient discharged Performed By: #### L 500.2500, L100.0100 ####[facility] [address] [place], [address] RDW CV Normal 11.6-14.6 [facility] Comment on above: Result Comment: Canc elled via OM: Order cancelled - Patient discharged Performed By: #### L 500.2500, L100.0100 ####[facility] [address] [place], [address] RDW SD Normal 35.1-43.9 [facility] Comment on above: Result Comment: Canc elled via OM: Order cancelled - Patient discharged Performed By: #### L 500.2500, L100.0100 ####[facility] [address] [place], [address] WBC Normal 4.4-11.0 [facility] Comment on above: Result Comment: Canc elled via OM: Order cancelled - Patient discharged Performed By: #### L 500.2500, L100.0100 ####[facility] [address] [place], [address] Basic Metabolic Profile (BMP )on 02-15-2025 BUN Normal 4-19 [facility] Comment on above: Result Comment: Canc elled via OM: Order cancelled - Patient discharged Performed By: #### L 500.2500, L100.0100 ####[facility] [address] [place], [address] BUN/CRE Normal 10-20 [facility] Comment on above: Result Comment: Canc elled via OM: Order cancelled - Patient discharged Performed By: #### L 500.2500, L100.0100 ####[facility] [address] [place], [address] Calcium Normal 7.6-11.0 [facility] Comment on above: Result Comment: Canc elled via OM: Order cancelled - Patient discharged Performed By: #### L 500.2500, L100.0100 ####[facility] [address] [place], [address] CL Normal 98-108 [facility] Comment on above: Result Comment: Canc elled via OM: Order cancelled - Patient discharged Performed By: #### L 500.2500, L100.0100 ####[facility] [address] [place], [address] CO2 Normal 21.0-32.0 [facility] Comment on above: Result Comment: Canc elled via OM: Order cancelled - Patient discharged Performed By: #### L 500.2500, L100.0100 ####[facility] [address] [place], [address] CREAT,SERUM Normal 0.70-1.20 [facility] Comment on above: Result Comment: Canc elled via OM: Order cancelled - Patient discharged Performed By: #### L 500.2500, L100.0100 ####[facility] [address] [place], [address] eGFR Normal >60 [facility] Comment on above: Result Comment: Canc elled via OM: Order cancelled - Patient discharged Performed By: #### L 500.2500, L100.0100 ####[facility] [address] [place], [address] GAP Normal 5-15 [facility] Comment on above: Result Comment: Canc elled via OM: Order cancelled - Patient discharged Performed By: #### L 500.2500, L100.0100 ####[facility] [address] [place], [address] GLU Normal 70-99 [facility] Comment on above: Result Comment: Canc elled via OM: Order cancelled - Patient discharged Performed By: #### L 500.2500, L100.0100 ####[facility] [address] [place], [address] Potassium Normal 3.3-5.1 [facility] Comment on above: Result Comment: Canc elled via OM: Order cancelled - Patient discharged Performed By: #### L 500.2500, L100.0100 ####[facility] [address] [place], [address] Basic Metabolic Profile (BMP) Normal 133-145 [facility] Comment on above: Result Comment: Canc elled via OM: Order cancelled - Patient discharged Performed By: #### L 500.2500, L100.0100 ####[facility] [address] [place], [address] CBC W/Diff, Automatedon 06-0 Absolute Neut Normal 2.0-7.7 [facility] Comment on above: Result Comment: Canc elled via OM: Order cancelled - Patient discharged Performed By: #### L 500.2500, L100.0100 ####[facility] [address] [place], [address] HCT Normal 37-47 [facility] Comment on above: Result Comment: Canc elled via OM: Order cancelled - Patient discharged Performed By: #### L 500.2500, L100.0100 ####[facility] [address] [place], [address] HGB Normal 12.0-15.0 [facility] Comment on above: Result Comment: Canc elled via OM: Order cancelled - Patient discharged Performed By: #### L 500.2500, L100.0100 ####[facility] [address] [place], [address] MCH Normal 27.0-32.0 [facility] Comment on above: Result Comment: Canc elled via OM: Order cancelled - Patient discharged Performed By: #### L 500.2500, L100.0100 ####[facility] [address] [place], [address] MCHC Normal 32-36 [facility] Comment on above: Result Comment: Canc elled via OM: Order cancelled - Patient discharged Performed By: #### L 500.2500, L100.0100 ####[facility] [address] [place], [address] MCV Normal 81-99 [facility] Comment on above: Result Comment: Canc elled via OM: Order cancelled - Patient discharged Performed By: #### L 500.2500, L100.0100 ####[facility] [address] [place], [address] NEUT% Normal 47-70 [facility] Comment on above: Result Comment: Canc elled via OM: Order cancelled - Patient discharged Performed By: #### L 500.2500, L100.0100 ####[facility] [address] [place], [address] PLT Normal 150-450 [facility] Comment on above: Result Comment: Canc elled via OM: Order cancelled - Patient discharged Performed By: #### L 500.2500, L100.0100 ####[facility] [address] [place], [address] RBC Normal 4.2-5.4 [facility] Comment on above: Result Comment: Canc elled via OM: Order cancelled - Patient discharged Performed By: #### L 500.2500, L100.0100 ####[facility] [address] [place], [address] RDW CV Normal 11.6-14.6 [facility] Comment on above: Result Comment: Canc elled via OM: Order cancelled - Patient discharged Performed By: #### L 500.2500, L100.0100 ####[facility] [address] [place], [address] RDW SD Normal 35.1-43.9 [facility] Comment on above: Result Comment: Canc elled via OM: Order cancelled - Patient discharged Performed By: #### L 500.2500, L100.0100 ####[facility] [address] [place], [address] WBC Normal 4.4-11.0 [facility] Comment on above: Result Comment: Canc elled via OM: Order cancelled - Patient discharged Performed By: #### L 500.2500, L100.0100 ####[facility] [address] [place], [address] Basic Metabolic Profile (BMP )on 02-14-2025 BUN Normal 4-19 [facility] Comment on above: Result Comment: Canc elled via OM: Order cancelled - Patient discharged Performed By: #### L 100.0100, L500.2500 ####[facility] [address] [place], [address] BUN/CRE Normal 10-20 [facility] Comment on above: Result Comment: Canc elled via OM: Order cancelled - Patient discharged Performed By: #### L 100.0100, L500.2500 ####[facility] [address] [place], [address] Calcium Normal 7.6-11.0 [facility] Comment on above: Result Comment: Canc elled via OM: Order cancelled - Patient discharged Performed By: #### L 100.0100, L500.2500 ####[facility] [address] [place], [address] CL Normal 98-108 [facility] Comment on above: Result Comment: Canc elled via OM: Order cancelled - Patient discharged Performed By: #### L 100.0100, L500.2500 ####[facility] [address] [place], [address] CO2 Normal 21.0-32.0 [facility] Comment on above: Result Comment: Canc elled via OM: Order cancelled - Patient discharged Performed By: #### L 100.0100, L500.2500 ####[facility] [address] [place], [address] CREAT,SERUM Normal 0.70-1.20 [facility] Comment on above: Result Comment: Canc elled via OM: Order cancelled - Patient discharged Performed By: #### L 100.0100, L500.2500 ####[facility] [address] [place], [address] eGFR Normal >60 [facility] Comment on above: Result Comment: Canc elled via OM: Order cancelled - Patient discharged Performed By: #### L 100.0100, L500.2500 ####[facility] [address] [place], [address] GAP Normal 5-15 [facility] Comment on above: Result Comment: Canc elled via OM: Order cancelled - Patient discharged Performed By: #### L 100.0100, L500.2500 ####[facility] [address] [place], [address] GLU Normal 70-99 [facility] Comment on above: Result Comment: Canc elled via OM: Order cancelled - Patient discharged Performed By: #### L 100.0100, L500.2500 ####[facility] [address] [place], [address] Potassium Normal 3.3-5.1 [facility] Comment on above: Result Comment: Canc elled via OM: Order cancelled - Patient discharged Performed By: #### L 100.0100, L500.2500 ####[facility] [address] [place], [address] Basic Metabolic Profile (BMP) Normal 133-145 [facility] Comment on above: Result Comment: Canc elled via OM: Order cancelled - Patient discharged Performed By: #### L 100.0100, L500.2500 ####[facility] [address] [place], [address] CBC W/Diff, Automatedon 06-0 -2024 Absolute Neut Normal 2.0-7.7 [facility] Comment on above: Result Comment: Canc elled via OM: Order cancelled - Patient discharged Performed By: #### L 100.0100, L500.2500 ####[facility] [address] [place], [address] HCT Normal 37-47 [facility] Comment on above: Result Comment: Canc elled via OM: Order cancelled - Patient discharged Performed By: #### L 100.0100, L500.2500 ####[facility] [address] [place], [address] HGB Normal 12.0-15.0 [facility] Comment on above: Result Comment: Canc elled via OM: Order cancelled - Patient discharged Performed By: #### L 100.0100, L500.2500 ####[facility] [address] [place], [address] MCH Normal 27.0-32.0 [facility] Comment on above: Result Comment: Canc elled via OM: Order cancelled - Patient discharged Performed By: #### L 100.0100, L500.2500 ####[facility] [address] [place], [address] MCHC Normal 32-36 [facility] Comment on above: Result Comment: Canc elled via OM: Order cancelled - Patient discharged Performed By: #### L 100.0100, L500.2500 ####[facility] [address] [place], [address] MCV Normal 81-99 [facility] Comment on above: Result Comment: Canc elled via OM: Order cancelled - Patient discharged Performed By: #### L 100.0100, L500.2500 ####[facility] [address] [place], [address] NEUT% Normal 47-70 [facility] Comment on above: Result Comment: Canc elled via OM: Order cancelled - Patient discharged Performed By: #### L 100.0100, L500.2500 ####[facility] [address] [place], [address] PLT Normal 150-450 [facility] Comment on above: Result Comment: Canc elled via OM: Order cancelled - Patient discharged Performed By: #### L 100.0100, L500.2500 ####[facility] [address] [place], [address] RBC Normal 4.2-5.4 [facility] Comment on above: Result Comment: Canc elled via OM: Order cancelled - Patient discharged Performed By: #### L 100.0100, L500.2500 ####[facility] [address] [place], [address] RDW CV Normal 11.6-14.6 [facility] Comment on above: Result Comment: Canc elled via OM: Order cancelled - Patient discharged Performed By: #### L 100.0100, L500.2500 ####[facility] [address] [place], [address] RDW SD Normal 35.1-43.9 [facility] Comment on above: Result Comment: Canc elled via OM: Order cancelled - Patient discharged Performed By: #### L 100.0100, L500.2500 ####[facility] [address] [place], [address] WBC Normal 4.4-11.0 [facility] Comment on above: Result Comment: Canc elled via OM: Order cancelled - Patient discharged Performed By: #### L 100.0100, L500.2500 ####[facility] [address] [place], [address] Basic Metabolic Profile (BMP )on 02-13-2025 BUN Normal 4-19 [facility] Comment on above: Result Comment: Canc elled via OM: Order cancelled - Patient discharged Performed By: #### L 500.2500, L100.0100 ####[facility] [address] [place], [address] BUN/CRE Normal 10-20 [facility] Comment on above: Result Comment: Canc elled via OM: Order cancelled - Patient discharged Performed By: #### L 500.2500, L100.0100 ####[facility] [address] [place], [address] Calcium Normal 7.6-11.0 [facility] Comment on above: Result Comment: Canc elled via OM: Order cancelled - Patient discharged Performed By: #### L 500.2500, L100.0100 ####[facility] [address] [place], [address] CL Normal 98-108 [facility] Comment on above: Result Comment: Canc elled via OM: Order cancelled - Patient discharged Performed By: #### L 500.2500, L100.0100 ####[facility] [address] [place], [address] CO2 Normal 21.0-32.0 [facility] Comment on above: Result Comment: Canc elled via OM: Order cancelled - Patient discharged Performed By: #### L 500.2500, L100.0100 ####[facility] [address] [place], [address] CREAT,SERUM Normal 0.70-1.20 [facility] Comment on above: Result Comment: Canc elled via OM: Order cancelled - Patient discharged Performed By: #### L 500.2500, L100.0100 ####[facility] [address] [place], [address] eGFR Normal >60 [facility] Comment on above: Result Comment: Canc elled via OM: Order cancelled - Patient discharged Performed By: #### L 500.2500, L100.0100 ####[facility] [address] [place], [address] GAP Normal 5-15 [facility] Comment on above: Result Comment: Canc elled via OM: Order cancelled - Patient discharged Performed By: #### L 500.2500, L100.0100 ####[facility] [address] [place], [address] GLU Normal 70-99 [facility] Comment on above: Result Comment: Canc elled via OM: Order cancelled - Patient discharged Performed By: #### L 500.2500, L100.0100 ####[facility] [address] [place], [address] Potassium Normal 3.3-5.1 [facility] Comment on above: Result Comment: Canc elled via OM: Order cancelled - Patient discharged Performed By: #### L 500.2500, L100.0100 ####[facility] [address] [place], [address] Basic Metabolic Profile (BMP) Normal 133-145 [facility] Comment on above: Result Comment: Canc elled via OM: Order cancelled - Patient discharged Performed By: #### L 500.2500, L100.0100 ####[facility] [address] [place], [address] CBC W/Diff, Automatedon 05-3 Absolute Neut Normal 2.0-7.7 [facility] Comment on above: Result Comment: Canc elled via OM: Order cancelled - Patient discharged Performed By: #### L 500.2500, L100.0100 ####[facility] [address] [place], [address] HCT Normal 37-47 [facility] Comment on above: Result Comment: Canc elled via OM: Order cancelled - Patient discharged Performed By: #### L 500.2500, L100.0100 ####[facility] [address] [place], [address] HGB Normal 12.0-15.0 [facility] Comment on above: Result Comment: Canc elled via OM: Order cancelled - Patient discharged Performed By: #### L 500.2500, L100.0100 ####[facility] [address] [place], [address] MCH Normal 27.0-32.0 [facility] Comment on above: Result Comment: Canc elled via OM: Order cancelled - Patient discharged Performed By: #### L 500.2500, L100.0100 ####[facility] [address] [place], [address] MCHC Normal 32-36 [facility] Comment on above: Result Comment: Canc elled via OM: Order cancelled - Patient discharged Performed By: #### L 500.2500, L100.0100 ####[facility] [address] [place], [address] MCV Normal 81-99 [facility] Comment on above: Result Comment: Canc elled via OM: Order cancelled - Patient discharged Performed By: #### L 500.2500, L100.0100 ####[facility] [address] [place], [address] NEUT% Normal 47-70 [facility] Comment on above: Result Comment: Canc elled via OM: Order cancelled - Patient discharged Performed By: #### L 500.2500, L100.0100 ####[facility] [address] [place], [address] PLT Normal 150-450 [facility] Comment on above: Result Comment: Canc elled via OM: Order cancelled - Patient discharged Performed By: #### L 500.2500, L100.0100 ####[facility] [address] [place], [address] RBC Normal 4.2-5.4 [facility] Comment on above: Result Comment: Canc elled via OM: Order cancelled - Patient discharged Performed By: #### L 500.2500, L100.0100 ####[facility] [address] [place], [address] RDW CV Normal 11.6-14.6 [facility] Comment on above: Result Comment: Canc elled via OM: Order cancelled - Patient discharged Performed By: #### L 500.2500, L100.0100 ####[facility] [address] [place], [address] RDW SD Normal 35.1-43.9 [facility] Comment on above: Result Comment: Canc elled via OM: Order cancelled - Patient discharged Performed By: #### L 500.2500, L100.0100 ####[facility] [address] [place], [address] WBC Normal 4.4-11.0 [facility] Comment on above: Result Comment: Canc elled via OM: Order cancelled - Patient discharged Performed By: #### L 500.2500, L100.0100 ####[facility] [address] [place], [address] Absolute lymphocyte countOrd ered By: Trisha Iraheta on 02-12-2025 Lymphocytes Auto (Unsp spec) [#/Vol] 0.96 10*3/uL 0.83-4.51 [facility] Absolute neutrophil countOrd ered By: Trisha Iraheta on 02-12-2025 Neutrophils (Bld) [#/Vol] 1.9 10*3/uL Low 2.0-7.7 [facility] Anion gap in Serum or Plasma Ordered By: Trisha Iraheta on 02-12-2025 Anion gap [Moles/Vol] 8 mmol/L 5-15 [facility] Automated lymphocyte count a s percentage of total leukocytesOrdered By: Trisha Iraheta on 02-12-2025 Lymphocytes/100 WBC Auto (Unsp spec) 28.5 % - [facility] BUN/creatinine ratioOrdered By: Trisha Iraheta on 02-12-2025 Urea nitrogen/Creatinine [Mass ratio] 10.7 mg/mg - [facility] Basic Metabolic Profile (BMP )on 02-12-2025 BUN/CRE 10.7 RATIO Normal 07-05 [facility] Comment on above: Performed By: #### L 100.0100, L500.2500 ####[facility] [address] [place], [address] Calcium [Mass/Vol] 8.4 mg/dL Normal 7.6-11.0 [facility] Comment on above: Performed By: #### L 100.0100, L500.2500 ####[facility] [address] [place], [address] Chloride [Moles/Vol] 104 mmol/L Normal 98-108 [facility] Comment on above: Performed By: #### L 100.0100, L500.2500 ####[facility] [address] [place], [address] CO2 [Moles/Vol] 22.3 mmol/L Normal 21.0-32.0 [facility] Comment on above: Performed By: #### L 100.0100, L500.2500 ####[facility] [address] [place], [address] Creatinine [Mass/Vol] 1.23 mg/dL High 0.70-1.20 [facility] Comment on above: Performed By: #### L 100.0100, L500.2500 ####[facility] [address] [place], [address] ECRCL 44.49 ml/min Low 50-250 [facility] Comment on above: Performed By: #### L 100.0100, L500.2500 ####[facility] [address] [place], [address] GAP 8 Normal 5-15 [facility] Comment on above: Performed By: #### L 100.0100, L500.2500 ####[facility] [address] [place], [address] GFR/1.73 sq M.predicted among non-blacks MDRD (S/P/Bld) [Vol rate/Area] 47 mL/min/{1.73_m2} Low >60 [facility] Comment on above: Result Comment: mL/m in/1.73m2 CKD-EPI Creatinine Equation (2020) Performed By: #### L 100.0100, L500.2500 ####[facility] [address] [place], [address] Glucose [Mass/Vol] 152 mg/dL High 70-99 [facility] Comment on above: Performed By: #### L 100.0100, L500.2500 ####[facility] [address] [place], [address] Potassium [Moles/Vol] 3.5 mmol/L Normal 3.3-5.1 [facility] Comment on above: Performed By: #### L 100.0100, L500.2500 ####[facility] [address] [place], [address] Sodium [Moles/Vol] 134 mmol/L Normal 133-145 [facility] Comment on above: Performed By: #### L 100.0100, L500.2500 ####[facility] [address] [place], [address] Urea nitrogen [Mass/Vol] 13 mg/dL Normal 4-19 [facility] Comment on above: Performed By: #### L 100.0100, L500.2500 ####[facility] [address] [place], [address] Basophil percentageOrdered B y: Trisha Iraheta on 02-12-2025 Basophils/100 WBC (Bld) 0.6 % 0-1 [facility] CBC W/Diff, Automatedon 01-16 0-2024 Absolute Lymph 0.96 X10 3/uL Normal 0.83-4.51 [facility] Comment on above: Performed By: #### L 100.0100, L500.2500 ####[facility] [address] [place], [address] Absolute Neut 1.9 X10 3/uL Low 2.0-7.7 [facility] Comment on above: Performed By: #### L 100.0100, L500.2500 ####[facility] [address] [place], [address] Basophils/100 WBC (Bld) 0.6 % Normal 0-1 [facility] Comment on above: Performed By: #### L 100.0100, L500.2500 ####[facility] [address] [place], [address] Eosinophils/100 WBC (Bld) 4.2 % Normal 0-5 [facility] Comment on above: Performed By: #### L 100.0100, L500.2500 ####[facility] [address] [place], [address] Erythrocyte distribution width (RBC) [Ratio] 16.4 % High 11.6-14.6 [facility] Comment on above: Performed By: #### L 100.0100, L500.2500 ####[facility] [address] [place], [address] Hematocrit (Bld) [Volume fraction] 26.9 % Low 37-47 [facility] Comment on above: Performed By: #### L 100.0100, L500.2500 ####[facility] [address] [place], [address] Hemoglobin (Bld) [Mass/Vol] 8.6 g/dL Low 12.0-15.0 [facility] Comment on above: Performed By: #### L 100.0100, L500.2500 ####[facility] [address] [place], [address] IG% 0.300 Normal 0.0-0.9 [facility] Comment on above: Result Comment: IG% - Immature Granulocytes (promyelocytes, myelocytes andmetamyelocytes) > 1% indicates that a LEFT SHIFT is Present. Performed By: #### L 100.0100, L500.2500 ####[facility] [address] [place], [address] Lymphocytes/100 WBC (Bld) 28.5 % Normal 19-41 [facility] Comment on above: Performed By: #### L 100.0100, L500.2500 ####[facility] [address] [place], [address] MCH (RBC) [Entitic mass] 27.7 pg Normal 27.0-32.0 [facility] Comment on above: Performed By: #### L 100.0100, L500.2500 ####[facility] [address] [place], [address] MCHC (RBC) [Mass/Vol] 32.0 g/dL Normal 32-36 [facility] Comment on above: Performed By: #### L 100.0100, L500.2500 ####[facility] [address] [place], [address] MCV (RBC) [Entitic vol] 86.5 fL Normal 81-99 [facility] Comment on above: Performed By: #### L 100.0100, L500.2500 ####[facility] [address] [place], [address] Monocytes/100 WBC (Bld) 11.0 % High 0-10 [facility] Comment on above: Performed By: #### L 100.0100, L500.2500 ####[facility] [address] [place], [address] Neutrophils/100 WBC (Bld) 55.4 % Normal 47-70 [facility] Comment on above: Performed By: #### L 100.0100, L500.2500 ####[facility] [address] [place], [address] Nucleated RBC (Bld) [#/Vol] 0.6 10*3/uL Normal 0-5 [facility] Comment on above: Performed By: #### L 100.0100, L500.2500 ####[facility] [address] [place], [address] Platelet mean volume (Bld) [Entitic vol] 10.8 fL Normal 6.2-12.0 [facility] Comment on above: Performed By: #### L 100.0100, L500.2500 ####[facility] [address] [place], [address] Platelets (Bld) [#/Vol] 77 10*3/uL Low 150-450 [facility] Comment on above: Performed By: #### L 100.0100, L500.2500 ####[facility] [address] [place], [address] RBC (Bld) [#/Vol] 3.11 10*6/uL Low 4.2-5.4 [facility] Comment on above: Performed By: #### L 100.0100, L500.2500 ####[facility] [address] [place], [address] RDW SD 50.4 fl High 35.1-43.9 [facility] Comment on above: Performed By: #### L 100.0100, L500.2500 ####[facility] [address] [place], [address] WBC (Bld) [#/Vol] 3.4 10*3/uL Low 4.4-11.0 [facility] Comment on above: Performed By: #### L 100.0100, L500.2500 ####[facility] [address] [place], [place], [id number] Carbon dioxide, total [Moles /volume] in Central venous bloodOrdered By: Trisha Iraheta on 02-12-2025 CO2 [Moles/Vol] 22.3 mmol/L 21.0-32.0 [facility] Chloride assayOrdered By: Na na Myrtle on 02-12-2025 Chloride [Moles/Vol] 104 mmol/L 98-108 [facility] Discharge Instructionon 01-16 Discharge Instruction Normal [facility] Eosinophil percentageOrdered By: Trisha Iraheta on 02-12-2025 Eosinophils/100 WBC (Bld) 4.2 % 0-5 [facility] Erythrocyte distribution wid th ratioOrdered By: Trisha Iraheta on 02-12-2025 Erythrocyte distribution width (RBC) [Ratio] 16.4 % High 11.6-14.6 [facility] Erythrocyte distribution wid th standard deviationOrdered By: Trishanoe Iraheta on 02-12-2025 Erythrocyte distribution width (RBC) [Ratio] 50.4 fl High 35.1-43.9 [facility] Glomerular filtration rate ( GFR) estimation/1.73 sq m using serum, plasma, or whole bOrdered By: Trisha Iraheta on 02-12-2025 GFR/1.73 sq M.predicted among non-blacks MDRD (S/P/Bld) [Vol rate/Area] 47 mL/min/{1.73_m2} Low >60 [facility] Comment on above: mL/min/1.73m2 CKD-EP I Creatinine Equation (2020) Hematocrit Auto (Bld) [Volum e fraction]Ordered By: Trisha Iraheta on 02-12-2025 Hematocrit (Bld) [Volume fraction] 26.9 % Low 37-47 [facility] Hemoglobin measurementOrdere d By: Trisha Iraheta on 02-12-2025 Hemoglobin (Bld) [Mass/Vol] 8.6 g/dL Low 12.0-15.0 [facility] Immature granulocytes/100 WB C Auto (Bld)Ordered By: Trisha Iraheta on 02-12-2025 Immature granulocytes/100 WBC (Bld) 0.300 % 0.0-0.9 [facility] Comment on above: IG% - Immature Granu locytes (promyelocytes, myelocytes and metamyelocytes) > 1% indicates that a LEFT SHIFT is Present. MCV (mean corpuscular volume ) determinationOrdered By: Trisha Iraheta on 02-12-2025 MCV (RBC) [Entitic vol] 86.5 fL 81-99 [facility] Mean corpuscular hemoglobin (MCH) determinationOrdered By: Trisha Iraheta on 02-12-2025 MCH (RBC) [Entitic mass] 27.7 pg 27.0-32.0 [facility] Mean corpuscular hemoglobin concentration (MCHC) determinationOrdered By: Trisha Iraheta on 02-12-2025 MCHC (RBC) [Mass/Vol] 32.0 g/dL 32-36 [facility] Mean platelet volume determi nationOrdered By: Trisha Iraheta on 02-12-2025 Platelet mean volume (Bld) [Entitic vol] 10.8 fL 6.2-12.0 [facility] Monocyte percentageOrdered B y: Trisha Iraheta on 02-12-2025 Monocytes/100 WBC (Bld) 11.0 % High 0-10 [facility] Neutrophil percentageOrdered By: Trisha Iraheta on 02-12-2025 Neutrophils/100 WBC (Bld) 55.4 % 47-70 [facility] Nucleated red blood cell per centageOrdered By: Trisha Iraheta on 02-12-2025 Nucleated RBC/100 WBC (Bld) [Ratio] 0.6 % 0-5 [facility] Platelet countOrdered By: Ibeth Iraheta on 02-12-2025 Platelets (Bld) [#/Vol] 77 10*3/uL Low 150-450 [facility] Potassium measurement (mass/ volume)Ordered By: Trisha Iraheta on 02-12-2025 Potassium (Unsp spec) [Mass/Vol] 3.5 mmol/L 3.3-5.1 [facility] RBC Auto (Bld) [#/Vol]Ordere d By: Trishanoe Iraheta on 02-12-2025 RBC (Bld) [#/Vol] 3.11 10*6/uL Low 4.2-5.4 [facility] Serum creatinine measurement (mass/volume)Ordered By: Trisha Iraheta on 02-12-2025 Creatinine [Mass/Vol] 1.23 mg/dL High 0.70-1.20 [facility] Serum glucose measurement (m ass/volume)Ordered By: Trisha Iraheta on 02-12-2025 Glucose [Mass/Vol] 152 mg/dL High 70-99 [facility] Serum or plasma calcium corina urement (mass/volume)Ordered By: Trisha Iraheta on 02-12-2025 Calcium [Mass/Vol] 8.4 mg/dL 7.6-11.0 [facility] Serum or plasma urea nitroge n measurement (mass/volume)Ordered By: Trisha Iraheta on 02-12-2025 Urea nitrogen [Mass/Vol] 13 mg/dL 4-19 [facility] Sodium levelOrdered By: Trishanoe Iraheta on 02-12-2025 Sodium [Moles/Vol] 134 mmol/L 133-145 [facility] White blood cell (WBC) count Ordered By: Trisha Iraheta on 02-12-2025 WBC (Bld) [#/Vol] 3.4 10*3/uL Low 4.4-11.0 [facility] Basic Metabolic Profile (BMP )on 02-11-2025 BUN/CRE 15.8 RATIO Normal 10-20 [facility] Comment on above: Performed By: #### L 100.0100, L500.2500 ####[facility] [address] [place], [address] Calcium [Mass/Vol] 8.4 mg/dL Normal 7.6-11.0 [facility] Comment on above: Performed By: #### L 100.0100, L500.2500 ####[facility] [address] [place], [address] Chloride [Moles/Vol] 110 mmol/L High 98-108 [facility] Comment on above: Performed By: #### L 100.0100, L500.2500 ####[facility] [address] [place], [address] CO2 [Moles/Vol] 20.8 mmol/L Low 21.0-32.0 [facility] Comment on above: Performed By: #### L 100.0100, L500.2500 ####[facility] [address] [place], [address] Creatinine [Mass/Vol] 1.07 mg/dL Normal 0.70-1.20 [facility] Comment on above: Performed By: #### L 100.0100, L500.2500 ####[facility] [address] [place], [address] ECRCL 51.14 ml/min Normal 50-250 [facility] Comment on above: Performed By: #### L 100.0100, L500.2500 ####[facility] [address] [place], [address] GAP 9 Normal 5-15 [facility] Comment on above: Performed By: #### L 100.0100, L500.2500 ####[facility] [address] [place], [address] GFR/1.73 sq M.predicted among non-blacks MDRD (S/P/Bld) [Vol rate/Area] 56 mL/min/{1.73_m2} Low >60 [facility] Comment on above: Result Comment: mL/m in/1.73m2 CKD-EPI Creatinine Equation (2020) Performed By: #### L 100.0100, L500.2500 ####[facility] [address] [place], [address] Glucose [Mass/Vol] 151 mg/dL High 70-99 [facility] Comment on above: Performed By: #### L 100.0100, L500.2500 ####[facility] [address] [place], [address] Potassium [Moles/Vol] 3.8 mmol/L Normal 3.3-5.1 [facility] Comment on above: Performed By: #### L 100.0100, L500.2500 ####[facility] [address] [place], [address] Sodium [Moles/Vol] 140 mmol/L Normal 133-145 [facility] Comment on above: Performed By: #### L 100.0100, L500.2500 ####[facility] [address] [place], [address] Urea nitrogen [Mass/Vol] 17 mg/dL Normal 4-19 [facility] Comment on above: Performed By: #### L 100.0100, L500.2500 ####[facility] [address] [place], [address] CBC W/Diff, Automatedon 05-2 Absolute Lymph 0.72 X10 3/uL Low 0.83-4.51 [facility] Comment on above: Performed By: #### L 100.0100, L500.2500 ####[facility] [address] [place], [address] Absolute Neut 2.6 X10 3/uL Normal 2.0-7.7 [facility] Comment on above: Performed By: #### L 100.0100, L500.2500 ####[facility] [address] [place], [address] Basophils/100 WBC (Bld) 0.5 % Normal 0-1 [facility] Comment on above: Performed By: #### L 100.0100, L500.2500 ####[facility] [address] [place], [address] Eosinophils/100 WBC (Bld) 3.6 % Normal 0-5 [facility] Comment on above: Performed By: #### L 100.0100, L500.2500 ####[facility] [address] [place], [address] Erythrocyte distribution width (RBC) [Ratio] 15.9 % High 11.6-14.6 [facility] Comment on above: Performed By: #### L 100.0100, L500.2500 ####[facility] [address] [place], [address] Hematocrit (Bld) [Volume fraction] 25.0 % Low 37-47 [facility] Comment on above: Performed By: #### L 100.0100, L500.2500 ####[facility] [address] [place], [address] Hemoglobin (Bld) [Mass/Vol] 8.1 g/dL Low 12.0-15.0 [facility] Comment on above: Performed By: #### L 100.0100, L500.2500 ####[facility] [address] [place], [address] IG% 0.800 Normal 0.0-0.9 [facility] Comment on above: Result Comment: IG% - Immature Granulocytes (promyelocytes, myelocytes andmetamyelocytes) > 1% indicates that a LEFT SHIFT is Present. Performed By: #### L 100.0100, L500.2500 ####[facility] [address] [place], [address] Lymphocytes/100 WBC (Bld) 18.5 % Low 19-41 [facility] Comment on above: Performed By: #### L 100.0100, L500.2500 ####[facility] [address] [place], [address] MCH (RBC) [Entitic mass] 27.6 pg Normal 27.0-32.0 [facility] Comment on above: Performed By: #### L 100.0100, L500.2500 ####[facility] [address] [place], [address] MCHC (RBC) [Mass/Vol] 32.4 g/dL Normal 32-36 [facility] Comment on above: Performed By: #### L 100.0100, L500.2500 ####[facility] [address] [place], [address] MCV (RBC) [Entitic vol] 85.0 fL Normal 81-99 [facility] Comment on above: Performed By: #### L 100.0100, L500.2500 ####[facility] [address] [place], [address] Monocytes/100 WBC (Bld) 9.0 % Normal 0-10 [facility] Comment on above: Performed By: #### L 100.0100, L500.2500 ####[facility] [address] [place], [address] Neutrophils/100 WBC (Bld) 67.6 % Normal 47-70 [facility] Comment on above: Performed By: #### L 100.0100, L500.2500 ####[facility] [address] [place], [address] Nucleated RBC (Bld) [#/Vol] 0.8 10*3/uL Normal 0-5 [facility] Comment on above: Performed By: #### L 100.0100, L500.2500 ####[facility] [address] [place], [address] Platelet mean volume (Bld) [Entitic vol] 11.0 fL Normal 6.2-12.0 [facility] Comment on above: Performed By: #### L 100.0100, L500.2500 ####[facility] [address] [place], [address] Platelets (Bld) [#/Vol] 75 10*3/uL Low 150-450 [facility] Comment on above: Performed By: #### L 100.0100, L500.2500 ####[facility] [address] [place], [address] RBC (Bld) [#/Vol] 2.94 10*6/uL Low 4.2-5.4 [facility] Comment on above: Performed By: #### L 100.0100, L500.2500 ####[facility] [address] [place], [address] RDW SD 48.5 fl High 35.1-43.9 [facility] Comment on above: Performed By: #### L 100.0100, L500.2500 ####[facility] [address] [place], [address] WBC (Bld) [#/Vol] 3.9 10*3/uL Low 4.4-11.0 [facility] Comment on above: Performed By: #### L 100.0100, L500.2500 ####[facility] [address] [place], [address] EGD Reporton 02-11-2025 EGD Report Normal [facility] MR/POSTOP.ANEon 02-11-2025 MR/POSTOP.ANE Normal [facility] MR/DOPYQBHH7om 02-11-2025 MR/POSTOPAN2 Normal [facility] Activated partial thrombopla stin time (aPTT) in platelet poor plasma by coagulation aOrdered By: Leonard Roy on 02-10-2025 aPTT Coag (PPP) [Time] 26.0 s 24.1-36.2 [facility] Bilirubin directOrdered By: Kwasi Nieves on 02-10-2025 Bilirubin.direct [Mass/Vol] 0.91 mg/dL High 0.00-0.30 [facility] Bilirubin, Directon 05-28-20 25 Bilirubin.direct [Mass/Vol] 0.91 mg/dL High 0.00-0.30 [facility] Comment on above: Performed By: #### L 501.5200, L500.4050, L501.4700 ####[facility] [address] [place], [address] Bilirubin, totalOrdered By: Leonard Roy on 02-10-2025 Bilirubin [Mass/Vol] 2.67 mg/dL High 0.00-1.30 [facility] CBC W/Diff, Automatedon 01-15 Absolute Lymph 1.07 X10 3/uL Normal 0.83-4.51 [facility] Comment on above: Performed By: #### L 100.0100 ####[facility] [address] [place], [address] Absolute Neut 2.5 X10 3/uL Normal 2.0-7.7 [facility] Comment on above: Performed By: #### L 100.0100 ####[facility] [address] [place], [address] Basophils/100 WBC (Bld) 0.5 % Normal 0-1 [facility] Comment on above: Performed By: #### L 100.0100 ####[facility] [address] [place], [address] Eosinophils/100 WBC (Bld) 3.3 % Normal 0-5 [facility] Comment on above: Performed By: #### L 100.0100 ####[facility] [address] [place], [address] Erythrocyte distribution width (RBC) [Ratio] 16.1 % High 11.6-14.6 [facility] Comment on above: Performed By: #### L 100.0100 ####[facility] [address] [place], [address] Hematocrit (Bld) [Volume fraction] 19.4 % Low 37-47 [facility] Comment on above: Performed By: #### L 100.0100 ####[facility] [address] [place], [address] Hemoglobin (Bld) [Mass/Vol] 6.1 g/dL Low 12.0-15.0 [facility] Comment on above: Performed By: #### L 100.0100 ####[facility] [address] [place], [address] IG% 0.200 Normal 0.0-0.9 [facility] Comment on above: Result Comment: IG% - Immature Granulocytes (promyelocytes, myelocytes andmetamyelocytes) > 1% indicates that a LEFT SHIFT is Present. Performed By: #### L 100.0100 ####[facility] [address] [place], [address] Lymphocytes/100 WBC (Bld) 25.6 % Normal 19-41 [facility] Comment on above: Performed By: #### L 100.0100 ####[facility] [address] [place], [address] MCH (RBC) [Entitic mass] 26.2 pg Low 27.0-32.0 [facility] Comment on above: Performed By: #### L 100.0100 ####[facility] [address] [place], [address] MCHC (RBC) [Mass/Vol] 31.4 g/dL Low 32-36 [facility] Comment on above: Performed By: #### L 100.0100 ####[facility] [address] [place], [address] MCV (RBC) [Entitic vol] 83.3 fL Normal 81-99 [facility] Comment on above: Performed By: #### L 100.0100 ####[facility] [address] [place], [address] Monocytes/100 WBC (Bld) 11.2 % High 0-10 [facility] Comment on above: Performed By: #### L 100.0100 ####[facility] [address] [place], [address] Neutrophils/100 WBC (Bld) 59.2 % Normal 47-70 [facility] Comment on above: Performed By: #### L 100.0100 ####[facility] [address] [place], [address] Nucleated RBC (Bld) [#/Vol] 0.7 10*3/uL Normal 0-5 [facility] Comment on above: Performed By: #### L 100.0100 ####[facility] [address] [place], [address] Platelet mean volume (Bld) [Entitic vol] 10.5 fL Normal 6.2-12.0 [facility] Comment on above: Performed By: #### L 100.0100 ####[facility] [address] [place], [address] Platelets (Bld) [#/Vol] 103 10*3/uL Low 150-450 [facility] Comment on above: Performed By: #### L 100.0100 ####[facility] [address] [place], [address] RBC (Bld) [#/Vol] 2.33 10*6/uL Low 4.2-5.4 [facility] Comment on above: Performed By: #### L 100.0100 ####[facility] [address] [place], [address] RDW SD 48.9 fl High 35.1-43.9 [facility] Comment on above: Performed By: #### L 100.0100 ####[facility] [address] [place], [address] WBC (Bld) [#/Vol] 4.2 10*3/uL Low 4.4-11.0 [facility] Comment on above: Performed By: #### L 100.0100 ####[facility] [address] [place], [address] Comprehensive Metabolic Prof ilon 02-10-2025 Albumin [Mass/Vol] 3.0 g/dL Low 3.4-4.8 [facility] Comment on above: Performed By: #### L 501.5200, L500.4050, L501.4700 ####[facility] [address] [place], [address] Albumin/Globulin [Mass ratio] 1.7 {ratio} Normal 0.9-2.4 [facility] Comment on above: Performed By: #### L 501.5200, L500.4050, L501.4700 ####[facility] [address] [place], [address] ALK PHOS 141 U/L High 35-104 [facility] Comment on above: Performed By: #### L 501.5200, L500.4050, L501.4700 ####[facility] [address] [place], [address] ALT [Catalytic activity/Vol] 11 U/L Normal <=34 [facility] Comment on above: Performed By: #### L 501.5200, L500.4050, L501.4700 ####[facility] [address] [place], [address] AST [Catalytic activity/Vol] 16 U/L Normal <=31 [facility] Comment on above: Performed By: #### L 501.5200, L500.4050, L501.4700 ####[facility] [address] [place], [address] Bilirubin [Mass/Vol] 2.67 mg/dL High 0.00-1.30 [facility] Comment on above: Performed By: #### L 501.5200, L500.4050, L501.4700 ####[facility] [address] [place], [address] BUN/CRE 24.7 RATIO High 10-20 [facility] Comment on above: Performed By: #### L 501.5200, L500.4050, L501.4700 ####[facility] [address] [place], [address] Calcium [Mass/Vol] 8.5 mg/dL Normal 7.6-11.0 [facility] Comment on above: Performed By: #### L 501.5200, L500.4050, L501.4700 ####[facility] [address] [place], [address] Chloride [Moles/Vol] 111 mmol/L High 98-108 [facility] Comment on above: Performed By: #### L 501.5200, L500.4050, L501.4700 ####[facility] [address] [place], [address] CO2 [Moles/Vol] 20.3 mmol/L Low 21.0-32.0 [facility] Comment on above: Performed By: #### L 501.5200, L500.4050, L501.4700 ####[facility] [address] [place], [address] Creatinine [Mass/Vol] 0.98 mg/dL Normal 0.70-1.20 [facility] Comment on above: Performed By: #### L 501.5200, L500.4050, L501.4700 ####[facility] [address] [place], [address] ECRCL 55.84 ml/min Normal 50-250 [facility] Comment on above: Performed By: #### L 501.5200, L500.4050, L501.4700 ####[facility] [address] [place], [address] GAP 8 Normal 5-15 [facility] Comment on above: Performed By: #### L 501.5200, L500.4050, L501.4700 ####[facility] [address] [place], [address] GFR/1.73 sq M.predicted among non-blacks MDRD (S/P/Bld) [Vol rate/Area] 62 mL/min/{1.73_m2} Normal >60 [facility] Comment on above: Result Comment: mL/m in/1.73m2 CKD-EPI Creatinine Equation (2020) Performed By: #### L 501.5200, L500.4050, L501.4700 ####[facility] [address] [place], [address] Globulin (S) [Mass/Vol] 1.7 g/dL Low 2.2-4.2 [facility] Comment on above: Performed By: #### L 501.5200, L500.4050, L501.4700 ####[facility] [address] [place], [address] Glucose [Mass/Vol] 196 mg/dL High 70-99 [facility] Comment on above: Performed By: #### L 501.5200, L500.4050, L501.4700 ####[facility] [address] [place], [address] Potassium [Moles/Vol] 4.4 mmol/L Normal 3.3-5.1 [facility] Comment on above: Performed By: #### L 501.5200, L500.4050, L501.4700 ####[facility] [address] [place], [address] Sodium [Moles/Vol] 139 mmol/L Normal 133-145 [facility] Comment on above: Performed By: #### L 501.5200, L500.4050, L501.4700 ####[facility] [address] [place], [address] T PROT 4.7 g/dL Low 5.9-8.4 [facility] Comment on above: Performed By: #### L 501.5200, L500.4050, L501.4700 ####[facility] [address] [place], [address] Urea nitrogen [Mass/Vol] 24 mg/dL High 4-19 [facility] Comment on above: Performed By: #### L 501.5200, L500.4050, L501.4700 ####[facility] [address] [place], [address] EGD Reporton 02-10-2025 EGD Report Normal [facility] HH, Hemoglobin AND Hematocri ton 02-10-2025 Hematocrit (Bld) [Volume fraction] 26.4 % Low 37-47 [facility] Comment on above: Performed By: #### L 100.0600 ####[facility] [address] [place], [address] Hemoglobin (Bld) [Mass/Vol] 8.6 g/dL Low 12.0-15.0 [facility] Comment on above: Performed By: #### L 100.0600 ####[facility] [address] [place], [address] Hematocrit (Bld) [Volume fraction] 20.4 % Low 37-47 [facility] Comment on above: Performed By: #### L 100.0600 ####[facility] [address] [place], [address] Hemoglobin (Bld) [Mass/Vol] 6.3 g/dL Low 12.0-15.0 [facility] Comment on above: Performed By: #### L 100.0600 ####[facility] [address] [place], [address] Hemoglobin A1con 02-10-2025 HbA1c (Bld) [Mass fraction] 6.7 % High <=5.6 [facility] Comment on above: Result Comment: Norm al < 5.7 % Prediabetic 5.7 - 6.4 % Diabetic >or= 6.5 % Please note range changes. Performed By: #### L 300.3900, L501.2300, L501.9985, L300.4310 ####[facility] [address] [place], [place], [address] Hemoglobin A1c percentageOrd ered By: Leonard Roy on 02-10-2025 HbA1c (Bld) [Mass fraction] 6.7 % High <5.7 [facility] Comment on above: Normal < 5.7 % Predi abetic 5.7 - 6.4 % Diabetic >or= 6.5 % Please note range changes. International normalized rat io (INR) calculationOrdered By: Leonard Roy on 02-10-2025 INR Coag (Bld) [Relative time] 1.2 {INR} [facility] Laboratory - Chemistry and C hemistry - challengeOrdered By: Leonard Roy on 02-10-2025 AST [Catalytic activity/Vol] 16 U/L <32 [facility] MR/POSTOP.ANEon 02-10-2025 MR/POSTOP.ANE Normal [facility] MR/PCEQAREK6km 02-10-2025 MR/POSTOPAN2 Normal [facility] Magnesiumon 02-10-2025 Magnesium [Mass/Vol] 2.0 mg/dL Normal 1.5-2.2 [facility] Comment on above: Performed By: #### L 501.5200, L500.4050, L501.4700 ####[facility] [address] [place], [place], [address] Magnesium measurement (mass/ volume)Ordered By: Leonard Roy on 02-10-2025 Magnesium (Unsp spec) [Mass/Vol] 2.0 mg/dL 1.5-2.2 [facility] Partial Thromboplast Timeon 02-10-2025 aPTT Coag (Bld) [Time] 26.0 s Normal 24.1-36.2 [facility] Comment on above: Performed By: #### L 300.3900, L501.2300, L501.9985, L300.4310 ####[facility] [address] [place], [address] Phosphoruson 02-10-2025 Phosphate [Mass/Vol] 2.5 mg/dL Low 2.7-4.5 [facility] Comment on above: Performed By: #### L 300.3900, L501.2300, L501.9985, L300.4310 ####[facility] [address] [place], [address] Prothrombin Time w/INRon INR Coag (PPP) [Relative time] 1.2 {INR} Normal [facility] Comment on above: Performed By: #### L 300.3900, L501.2300, L501.9985, L300.4310 ####[facility] [address] [place], [address] PT Coag (PPP) [Time] 15.8 s High 11.7-14.9 [facility] Comment on above: Performed By: #### L 300.3900, L501.2300, L501.9985, L300.4310 ####[facility] [address] [place], [address] Prothrombin timeOrdered By: Leonard Roy on 02-10-2025 PT Coag (PPP) [Time] 15.8 s High 11.7-14.9 [facility] Serum globulin measurementOr dered By: Leonard Roy on 02-10-2025 Globulin (S) [Mass/Vol] 1.7 g/dL Low 2.2-4.2 [facility] Serum or plasma alanine bridges otransferase (ALT) measurementOrdered By: Leonard Roy on 02-10-2025 ALT [Catalytic activity/Vol] 11 U/L <35 [facility] Serum or plasma albumin corina urement (mass/volume)Ordered By: Leonard Roy on 02-10-2025 Albumin [Mass/Vol] 3.0 g/dL Low 3.4-4.8 [facility] Serum or plasma albumin/glob ulin mass ratioOrdered By: Leonard Roy on 02-10-2025 Albumin/Globulin [Mass ratio] 1.7 {ratio} 0.9-2.4 [facility] Serum or plasma alkaline radha sphatase measurementOrdered By: Leonard Roy on 02-10-2025 ALP [Catalytic activity/Vol] 141 U/L High 35-104 [facility] Total proteinOrdered By: Ambika Roy on 02-10-2025 Protein [Mass/Vol] 4.7 g/dL Low 5.9-8.4 [facility] 12 Lead EKGon 02-09-2025 12 Lead EKG Normal [facility] Absolute lymphocyte countOrd ered By: Yared Peraza on 02-09-2025 Lymphocytes Auto (Unsp spec) [#/Vol] 1.11 10*3/uL 0.83-4.51 [facility] Absolute neutrophil countOrd ered By: Yared Peraza on 02-09-2025 Neutrophils (Bld) [#/Vol] 4.9 10*3/uL 2.0-7.7 [facility] Activated partial thrombopla stin time (aPTT) in platelet poor plasma by coagulation aOrdered By: Yared Peraza on 02-09-2025 aPTT Coag (PPP) [Time] 24.8 s 24.1-36.2 [facility] Anion gap in Serum or Plasma Ordered By: Yared Peraza on 02-09-2025 Anion gap [Moles/Vol] 14 mmol/L 5-15 [facility] Automated lymphocyte count a s percentage of total leukocytesOrdered By: Yared Peraza on 02-09-2025 Lymphocytes/100 WBC Auto (Unsp spec) 16.5 % Low 19-41 [facility] [id number] 02-09-2025 ANTIBODY ID E Normal [facility] Comment on above: Order Comment: HGI Performed By: #### L 300.4310, [id number], L300.3900, L500.4050, BTS, L100.0100 ####[facility] [address] [place], [place], [address] BRCon 02-09-2025 RC Normal [facility] Comment on above: Result Comment: [id number] AP RC TRANSFUSED 02/10/25 [id number] AP RC TRANSFUSED 02/10/25 1418 Performed By: #### B RC ####[facility] [address] [place], [place], [address] Result Comment: [id number] AP RC TRANSFUSED 02/09/25 [id number] AP RC TRANSFUSED 02/09/25 1753 BUN/creatinine ratioOrdered By: Yared Peraza on 02-09-2025 Urea nitrogen/Creatinine [Mass ratio] 21.7 mg/mg High 10-20 [facility] Basophil percentageOrdered B y: Yared Peraza on 02-09-2025 Basophils/100 WBC (Bld) 0.1 % 0-1 [facility] Bilirubin, totalOrdered By: Yaredgeronimo Peraza on 02-09-2025 Bilirubin [Mass/Vol] 0.85 mg/dL 0.00-1.30 [facility] CBC W/Diff, Automatedon 01-15 Hemoglobin (Bld) [Mass/Vol] 5.2 g/dL Invalid Interpretation Code 12.0-15.0 [facility] Comment on above: Result Comment: CRIT ICAL VALUE CALLED TO Omar AHUMADA02/09/25 1312 Cami Bautista.RESULTS READ BACK BY SAME. Performed By: #### L 300.4310, [id number], L300.3900, L500.4050, BTS, L100.0100 ####[facility] [address] [place], [address] Absolute Lymph 1.11 X10 3/uL Normal 0.83-4.51 [facility] Comment on above: Performed By: #### L 300.4310, [id number], L300.3900, L500.4050, BTS, L100.0100 ####[facility] [address] [place], [address] Absolute Neut 4.9 X10 3/uL Normal 2.0-7.7 [facility] Comment on above: Performed By: #### L 300.4310, SVLB9655, L300.3900, L500.4050, BTS, L100.0100 ####[facility] [address] [place], [address] Basophils/100 WBC (Bld) 0.1 % Normal 0-1 [facility] Comment on above: Performed By: #### L 300.4310, TCGQ9813, L300.3900, L500.4050, BTS, L100.0100 ####[facility] [address] [place], [address] Eosinophils/100 WBC (Bld) 1.5 % Normal 0-5 [facility] Comment on above: Performed By: #### L 300.4310, CZLC8662, L300.3900, L500.4050, BTS, L100.0100 ####[facility] [address] [place], [address] Erythrocyte distribution width (RBC) [Ratio] 17.8 % High 11.6-14.6 [facility] Comment on above: Performed By: #### L 300.4310, PJII3450, L300.3900, L500.4050, BTS, L100.0100 ####[facility] [address] [place], [address] Hematocrit (Bld) [Volume fraction] 17.5 % Low 37-47 [facility] Comment on above: Performed By: #### L 300.4310, ACGM3158, L300.3900, L500.4050, BTS, L100.0100 ####[facility] [address] [place], [address] IG% 0.300 Normal 0.0-0.9 [facility] Comment on above: Result Comment: IG% - Immature Granulocytes (promyelocytes, myelocytes andmetamyelocytes) > 1% indicates that a LEFT SHIFT is Present. Performed By: #### L 300.4310, [id number], L300.3900, L500.4050, BTS, L100.0100 ####[facility] [address] [place], [address] Lymphocytes/100 WBC (Bld) 16.5 % Low 19-41 [facility] Comment on above: Performed By: #### L 300.4310, HWTZ5403, L300.3900, L500.4050, BTS, L100.0100 ####[facility] [address] [place], [address] MCH (RBC) [Entitic mass] 24.3 pg Low 27.0-32.0 [facility] Comment on above: Performed By: #### L 300.4310, YYME2580, L300.3900, L500.4050, BTS, L100.0100 ####[facility] [address] [place], [address] MCHC (RBC) [Mass/Vol] 29.7 g/dL Low 32-36 [facility] Comment on above: Performed By: #### L 300.4310, FFGB8512, L300.3900, L500.4050, BTS, L100.0100 ####[facility] [address] [place], [address] MCV (RBC) [Entitic vol] 81.8 fL Normal 81-99 [facility] Comment on above: Performed By: #### L 300.4310, QEBR3176, L300.3900, L500.4050, BTS, L100.0100 ####[facility] [address] [place], [address] Monocytes/100 WBC (Bld) 9.1 % Normal 0-10 [facility] Comment on above: Performed By: #### L 300.4310, GFTI5624, L300.3900, L500.4050, BTS, L100.0100 ####[facility] [address] [place], [address] Neutrophils/100 WBC (Bld) 72.5 % High 47-70 [facility] Comment on above: Performed By: #### L 300.4310, SZQM4905, L300.3900, L500.4050, BTS, L100.0100 ####[facility] [address] [place], [address] Nucleated RBC (Bld) [#/Vol] 0 10*3/uL Normal 0-5 [facility] Comment on above: Performed By: #### L 300.4310, LVJF7262, L300.3900, L500.4050, BTS, L100.0100 ####[facility] [address] [place], [address] Platelet mean volume (Bld) [Entitic vol] 11.3 fL Normal 6.2-12.0 [facility] Comment on above: Performed By: #### L 300.4310, JDFK9520, L300.3900, L500.4050, BTS, L100.0100 ####[facility] [address] [place], [address] Platelets (Bld) [#/Vol] 183 10*3/uL Normal 150-450 [facility] Comment on above: Performed By: #### L 300.4310, NOTJ6966, L300.3900, L500.4050, BTS, L100.0100 ####[facility] [address] [place], [address] RBC (Bld) [#/Vol] 2.14 10*6/uL Low 4.2-5.4 [facility] Comment on above: Performed By: #### L 300.4310, YNJU2011, L300.3900, L500.4050, BTS, L100.0100 ####[facility] [address] [place], [address] RDW SD 52.7 fl High 35.1-43.9 [facility] Comment on above: Performed By: #### L 300.4310, THGU3372, L300.3900, L500.4050, BTS, L100.0100 ####[facility] [address] [place], [address] WBC (Bld) [#/Vol] 6.7 10*3/uL Normal 4.4-11.0 [facility] Comment on above: Performed By: #### L 300.4310, EESX4919, L300.3900, L500.4050, BTS, L100.0100 ####[facility] [address] [place], [address] Carbon dioxide, total [Moles /volume] in Central venous bloodOrdered By: Yared Peraza on 02-09-2025 CO2 [Moles/Vol] 17.0 mmol/L Low 21.0-32.0 [facility] Chloride assayOrdered By: Erika Peraza on 02-09-2025 Chloride [Moles/Vol] 105 mmol/L 98-108 [facility] Comprehensive Metabolic Prof ilon 02-09-2025 Albumin [Mass/Vol] 3.4 g/dL Normal 3.4-4.8 [facility] Comment on above: Performed By: #### L 300.4310, [id number], L300.3900, L500.4050, BTS, L100.0100 ####[facility] [address] [place], [address] Albumin/Globulin [Mass ratio] 1.6 {ratio} Normal 0.9-2.4 [facility] Comment on above: Performed By: #### L 300.4310, [id number], L300.3900, L500.4050, BTS, L100.0100 ####[facility] [address] [place], [address] ALK PHOS 166 U/L High 35-104 [facility] Comment on above: Performed By: #### L 300.4310, [id number], L300.3900, L500.4050, BTS, L100.0100 ####[facility] [address] [place], [address] ALT [Catalytic activity/Vol] 13 U/L Normal <=34 [facility] Comment on above: Performed By: #### L 300.4310, [id number], L300.3900, L500.4050, BTS, L100.0100 ####[facility] [address] [place], [address] AST [Catalytic activity/Vol] 20 U/L Normal <=31 [facility] Comment on above: Performed By: #### L 300.4310, [id number], L300.3900, L500.4050, BTS, L100.0100 ####[facility] [address] [place], [address] Bilirubin [Mass/Vol] 0.85 mg/dL Normal 0.00-1.30 [facility] Comment on above: Performed By: #### L 300.4310, [id number], L300.3900, L500.4050, BTS, L100.0100 ####[facility] [address] [place], [address] BUN/CRE 21.7 RATIO High 10-20 [facility] Comment on above: Performed By: #### L 300.4310, [id number], L300.3900, L500.4050, BTS, L100.0100 ####[facility] [address] [place], [address] Calcium [Mass/Vol] 9.4 mg/dL Normal 7.6-11.0 [facility] Comment on above: Performed By: #### L 300.4310, [id number], L300.3900, L500.4050, BTS, L100.0100 ####[facility] [address] [place], [address] Chloride [Moles/Vol] 105 mmol/L Normal 98-108 [facility] Comment on above: Performed By: #### L 300.4310, [id number], L300.3900, L500.4050, BTS, L100.0100 ####[facility] [address] [place], [address] CO2 [Moles/Vol] 17.0 mmol/L Low 21.0-32.0 [facility] Comment on above: Performed By: #### L 300.4310, [id number], L300.3900, L500.4050, BTS, L100.0100 ####[facility] [address] [place], [address] Creatinine [Mass/Vol] 1.10 mg/dL Normal 0.70-1.20 [facility] Comment on above: Performed By: #### L 300.4310, [id number], L300.3900, L500.4050, BTS, L100.0100 ####[facility] [address] [place], [address] ECRCL 50.49 ml/min Normal 50-250 [facility] Comment on above: Performed By: #### L 300.4310, [id number], L300.3900, L500.4050, BTS, L100.0100 ####[facility] [address] [place], [address] GAP 14 Normal 5-15 [facility] Comment on above: Performed By: #### L 300.4310, EIBQ2116, L300.3900, L500.4050, BTS, L100.0100 ####[facility] [address] [place], [address] GFR/1.73 sq M.predicted among non-blacks MDRD (S/P/Bld) [Vol rate/Area] 54 mL/min/{1.73_m2} Low >60 [facility] Comment on above: Result Comment: mL/m in/1.73m2 CKD-EPI Creatinine Equation (2020) Performed By: #### L 300.4310, OFRI2108, L300.3900, L500.4050, BTS, L100.0100 ####[facility] [address] [place], [address] Globulin (S) [Mass/Vol] 2.1 g/dL Low 2.2-4.2 [facility] Comment on above: Performed By: #### L 300.4310, ZSMN0830, L300.3900, L500.4050, BTS, L100.0100 ####[facility] [address] [place], [address] Glucose [Mass/Vol] 203 mg/dL High 70-99 [facility] Comment on above: Performed By: #### L 300.4310, TWBJ1197, L300.3900, L500.4050, BTS, L100.0100 ####[facility] [address] [place], [address] Potassium [Moles/Vol] 3.8 mmol/L Normal 3.3-5.1 [facility] Comment on above: Performed By: #### L 300.4310, [id number], L300.3900, L500.4050, BTS, L100.0100 ####[facility] [address] [place], [address] Sodium [Moles/Vol] 137 mmol/L Normal 133-145 [facility] Comment on above: Performed By: #### L 300.4310, ZFJX4782, L300.3900, L500.4050, BTS, L100.0100 ####[facility] [address] [place], [address] T PROT 5.4 g/dL Low 5.9-8.4 [facility] Comment on above: Performed By: #### L 300.4310, NDPS3026, L300.3900, L500.4050, BTS, L100.0100 ####[facility] [address] [place], [address] Urea nitrogen [Mass/Vol] 24 mg/dL High 4-19 [facility] Comment on above: Performed By: #### L 300.4310, CTXY2084, L300.3900, L500.4050, BTS, L100.0100 ####[facility] [address] [place], [address] Emergency Department Summary on 02-09-2025 Emergency Department Summary Normal [facility] Eosinophil percentageOrdered By: Yared Peraza on 02-09-2025 Eosinophils/100 WBC (Bld) 1.5 % 0-5 [facility] Erythrocyte distribution wid th ratioOrdered By: Yared Peraza on 02-09-2025 Erythrocyte distribution width (RBC) [Ratio] 17.8 % High 11.6-14.6 [facility] Erythrocyte distribution wid th standard deviationOrdered By: Yared Peraza on 02-09-2025 Erythrocyte distribution width (RBC) [Ratio] 52.7 fl High 35.1-43.9 [facility] Glomerular filtration rate ( GFR) estimation/1.73 sq m using serum, plasma, or whole bOrdered By: Yared Peraza on 02-09-2025 GFR/1.73 sq M.predicted among non-blacks MDRD (S/P/Bld) [Vol rate/Area] 54 mL/min/{1.73_m2} Low >60 [facility] Comment on above: mL/min/1.73m2 CKD-EP I Creatinine Equation (2020) H AND P Exam - Hospital[place] 02-09-2025 H&P Exam - Hospitalist Normal [facility] HH, Hemoglobin AND Hematocri ton 02-09-2025 Hemoglobin (Bld) [Mass/Vol] 5.2 g/dL Invalid Interpretation Code 12.0-15.0 [facility] Comment on above: Result Comment: CRIT ICAL VALUE CALLED TO VINICIUS HOPKINS02/09/25 1750 Rosetta Saucedo.RESULTS READ BACK BY SAME. Performed By: #### L 100.0600 ####[facility] [address] [place], [place], [id number](871) Hematocrit (Bld) [Volume fraction] 18.2 % Low [address] Comment on above: Performed By: #### L 100.0600 ####[facility] [address] [place], [address] Hematocrit Auto (Bld) [Volum e fraction]Ordered By: Yared Peraza on 02-09-2025 Hematocrit (Bld) [Volume fraction] 17.5 % Low [address] Hemoglobin measurementOrdere d By: Yared Peraza on 02-09-2025 Hemoglobin (Bld) [Mass/Vol] 5.2 g/dL Low 12.0-15.0 [facility] Comment on above: CRITICAL VALUE JENKINS D TO Omar AHUMADA02/09/25 1312 Cami Bautista.RESULTS READ BACK BY SAME. Immature granulocytes/100 WB C Auto (Bld)Ordered By: Yared Peraza on 02-09-2025 Immature granulocytes/100 WBC (Bld) 0.300 % 0.0-0.9 [facility] Comment on above: IG% - Immature Granu locytes (promyelocytes, myelocytes and metamyelocytes) > 1% indicates that a LEFT SHIFT is Present. International normalized rat io (INR) calculationOrdered By: Yared Peraza on 02-09-2025 INR Coag (Bld) [Relative time] 1.2 {INR} [facility] Laboratory - Chemistry and C hemistry - challengeOrdered By: Yared Peraza on 02-09-2025 AST [Catalytic activity/Vol] 20 U/L <32 [facility] MCV (mean corpuscular volume ) determinationOrdered By: Yared Peraza on 02-09-2025 MCV (RBC) [Entitic vol] 81.8 fL 81-99 [facility] MR/CON.PCM.GIon 02-09-2025 MR/CON.PCM.GI Normal [facility] Mean corpuscular hemoglobin (MCH) determinationOrdered By: Yared Peraza on 02-09-2025 MCH (RBC) [Entitic mass] 24.3 pg Low 27.0-32.0 [facility] Mean corpuscular hemoglobin concentration (MCHC) determinationOrdered By: Yared Peraza on 02-09-2025 MCHC (RBC) [Mass/Vol] 29.7 g/dL Low 32-36 [facility] Mean platelet volume determi nationOrdered By: Yared Peraza on 02-09-2025 Platelet mean volume (Bld) [Entitic vol] 11.3 fL 6.2-12.0 [facility] Monocyte percentageOrdered B y: Yared Peraza on 02-09-2025 Monocytes/100 WBC (Bld) 9.1 % 0-10 [facility] Neutrophil percentageOrdered By: Yared Peraza on 02-09-2025 Neutrophils/100 WBC (Bld) 72.5 % High 47-70 [facility] Nucleated red blood cell per centageOrdered By: Yared Peraza on 02-09-2025 Nucleated RBC/100 WBC (Bld) [Ratio] 0 % 0-5 [facility] Partial Thromboplast Timeon 02-09-2025 aPTT Coag (Bld) [Time] 24.8 s Normal 24.1-36.2 [facility] Comment on above: Performed By: #### L 300.4310, [id number], L300.3900, L500.4050, BTS, L100.0100 ####[facility] [address] [place], [address] Platelet countOrdered By: Erika Peraza on 02-09-2025 Platelets (Bld) [#/Vol] 183 10*3/uL 150-450 [facility] Potassium measurement (mass/ volume)Ordered By: Yared Peraza on 02-09-2025 Potassium (Unsp spec) [Mass/Vol] 3.8 mmol/L 3.3-5.1 [facility] Prothrombin Time w/INRon INR Coag (PPP) [Relative time] 1.2 {INR} Normal [facility] Comment on above: Performed By: #### L 300.4310, STCF0564, L300.3900, L500.4050, BTS, L100.0100 ####[facility] [address] [place], [address] PT Coag (PPP) [Time] 15.5 s High 11.7-14.9 [facility] Comment on above: Performed By: #### L 300.4310, SDUT2770, L300.3900, L500.4050, BTS, L100.0100 ####[facility] [address] [place], [address] Prothrombin timeOrdered By: Yared Peraza on 02-09-2025 PT Coag (PPP) [Time] 15.5 s High 11.7-14.9 [facility] RBC Auto (Bld) [#/Vol]Ordere d By: Yared Peraza on 02-09-2025 RBC (Bld) [#/Vol] 2.14 10*6/uL Low 4.2-5.4 [facility] Serum creatinine measurement (mass/volume)Ordered By: Yared Peraza on 02-09-2025 Creatinine [Mass/Vol] 1.10 mg/dL 0.70-1.20 [facility] Serum globulin measurementOr dered By: Yared Peraza on 02-09-2025 Globulin (S) [Mass/Vol] 2.1 g/dL Low 2.2-4.2 [facility] Serum glucose measurement (m ass/volume)Ordered By: Yared Peraza on 02-09-2025 Glucose [Mass/Vol] 203 mg/dL High 70-99 [facility] Serum or plasma alanine bridges otransferase (ALT) measurementOrdered By: Yared Peraza on 02-09-2025 ALT [Catalytic activity/Vol] 13 U/L <35 [facility] Serum or plasma albumin corina urement (mass/volume)Ordered By: Yared Peraza on 02-09-2025 Albumin [Mass/Vol] 3.4 g/dL 3.4-4.8 [facility] Serum or plasma albumin/glob ulin mass ratioOrdered By: Yared Peraza on 02-09-2025 Albumin/Globulin [Mass ratio] 1.6 {ratio} 0.9-2.4 [facility] Serum or plasma alkaline radha sphatase measurementOrdered By: aYred Peraza on 02-09-2025 ALP [Catalytic activity/Vol] 166 U/L High 35-104 [facility] Serum or plasma calcium corina urement (mass/volume)Ordered By: Yared Peraza on 02-09-2025 Calcium [Mass/Vol] 9.4 mg/dL 7.6-11.0 [facility] Serum or plasma urea nitroge n measurement (mass/volume)Ordered By: Yared Peraza on 02-09-2025 Urea nitrogen [Mass/Vol] 24 mg/dL High 4-19 [facility] Sodium levelOrdered By: Triston Peraza on 02-09-2025 Sodium [Moles/Vol] 137 mmol/L 133-145 [facility] Total proteinOrdered By: Carmenza Peraza on 02-09-2025 Protein [Mass/Vol] 5.4 g/dL Low 5.9-8.4 [facility] Type AND Screenon 02-09-2025 Ab SCREEN GEL Positive Normal [facility] Comment on above: Order Comment: HGI Performed By: #### L 300.4310, [id number], L300.3900, L500.4050, BTS, L100.0100 ####[facility] [address] [place], [address] White blood cell (WBC) count Ordered By: Yared Peraza on 02-09-2025 WBC (Bld) [#/Vol] 6.7 10*3/uL 4.4-11.0 [facility] CNPNon 2025 CNPN Normal [place] CNOVon 01-21-2025 CNOV Normal [place] CNPNon 01-11-2025 CNPN Normal [place] CBC W Auto Differential pane l (Bld)on 01-08-2025 Basophils (Bld) [#/Vol] 10*3/uL Normal <0.11 [place] Comment on above: Order Comment: Speci men Type: BLOOD SPECIMENOrdering Facility: [facility] Address: [address] [place] [address] Performed By: #### 5 7021-8 ####[facility] [id number] [place] [address] [place] Basophils/100 WBC (Bld) 0.5 % Normal [place] Comment on above: Order Comment: Speci men Type: BLOOD SPECIMENOrdering Facility: [facility] Address: [address] [place] [address] Performed By: #### 5 7021-8 ####[facility] [id number] [place] [address] [place] Differential cell count method Nom (Bld) Auto Normal [place] Comment on above: Order Comment: Speci men Type: BLOOD SPECIMENOrdering Facility: [facility] Address: [address] [place] [address] Performed By: #### 5 7021-8 ####[facility] MILLWNCLIA [id number] [place] [address] [place] Eosinophils (Bld) [#/Vol] 0.21 10*3/uL Normal <0.46 [place] Comment on above: Order Comment: Speci men Type: BLOOD SPECIMENOrdering Facility: [facility] Address: [address] [place] [address] Performed By: #### 5 7021-8 ####[facility] [id number] [place] [address] [place] Eosinophils/100 WBC (Bld) 5.2 % Normal [place] Comment on above: Order Comment: Speci men Type: BLOOD SPECIMENOrdering Facility: [facility] Address: [address] [place] [address] Performed By: #### 5 7021-8 ####[facility] [id number] [place] [address] [place] Erythrocyte distribution width (RBC) [Ratio] 17.4 % High 11.5-15.0 [place] Comment on above: Order Comment: Speci men Type: BLOOD SPECIMENOrdering Facility: [facility] Address: [address] [place] [address] Performed By: #### 5 7021-8 ####[facility] [id number] [place] [address] [place] Hematocrit (Bld) [Volume fraction] 31.9 % Low 36.0-46.0 [place] Comment on above: Order Comment: Speci men Type: BLOOD SPECIMENOrdering Facility: [facility] Address: [address] [place] [address] Performed By: #### 5 7021-8 ####[facility] [id number] [place] [address] [place] Hemoglobin (Bld) [Mass/Vol] 10.2 g/dL Low 11.5-15.5 [place] Comment on above: Order Comment: Speci men Type: BLOOD SPECIMENOrdering Facility: [facility] Address: [address] [place] [address] Performed By: #### 5 7021-8 ####[facility] [id number] [place] [address] [place] Immature granulocytes (Bld) [#/Vol] 10*3/uL Normal <0.10 [place] Comment on above: Order Comment: Speci men Type: BLOOD SPECIMENOrdering Facility: [facility] Address: [address] [place] [address] Performed By: #### 5 7021-8 ####[facility] [id number] [place] [address] [place] Immature granulocytes/100 WBC (Bld) 0.2 % Normal [place] Comment on above: Order Comment: Speci men Type: BLOOD SPECIMENOrdering Facility: [facility] Address: [address] [place] [address] Performed By: #### 5 7021-8 ####[facility] [id number] [place] [address] [place] Lymphocytes (Bld) [#/Vol] 0.69 10*3/uL Low 1.00-4.00 [place] Comment on above: Order Comment: Speci men Type: BLOOD SPECIMENOrdering Facility: [facility] Address: [address] [place] [address] Performed By: #### 5 7021-8 ####[facility] [id number] [place] [address] [place] Lymphocytes/100 WBC (Bld) 17.2 % Normal [place] Comment on above: Order Comment: Speci men Type: BLOOD SPECIMENOrdering Facility: [facility] Address: [address] [place] [address] Performed By: #### 5 7021-8 ####[facility] PRIYALUSBYHAYLIE [id number] [address] MCH (RBC) [Entitic mass] 27.7 pg Normal 26.0-34.0 [place] Comment on above: Order Comment: Speci men Type: BLOOD SPECIMENOrdering Facility: [facility] Address: [address] [place] [address] Performed By: #### 5 7021-8 ####[facility] [id number] [address] [place] MCHC (RBC) [Mass/Vol] 32.0 g/dL Normal 30.5-36.0 [facility] Comment on above: Order Comment: Speci men Type: BLOOD SPECIMENOrdering Facility: [facility] Address: [address] [place] [address] Performed By: #### 5 7021-8 ####[facility] [id number] [place] [address] [place] MCV (RBC) [Entitic vol] 86.7 fL Normal 80.0-100.0 [place] Comment on above: Order Comment: Speci men Type: BLOOD SPECIMENOrdering Facility: [facility] Address: [address] [place] [address] Performed By: #### 5 7021-8 ####[facility] [id number] [place] [address] [place] Monocytes (Bld) [#/Vol] 0.40 10*3/uL Normal <0.87 [place] Comment on above: Order Comment: Speci men Type: BLOOD SPECIMENOrdering Facility: [facility] Address: [address] [place] [address] Performed By: #### 5 7021-8 ####[facility] [id number] [place] [address] [place] Monocytes/100 WBC (Bld) 10.0 % Normal [place] Comment on above: Order Comment: Speci men Type: BLOOD SPECIMENOrdering Facility: [facility] Address: [address] [place] [address] Performed By: #### 5 7021-8 ####[facility] [id number] [place] [address] [place] Neutrophils (Bld) [#/Vol] 2.69 10*3/uL Normal 1.45-7.50 [place] Comment on above: Order Comment: Speci men Type: BLOOD SPECIMENOrdering Facility: [facility] Address: [address] [place] [address] Performed By: #### 5 7021-8 ####[facility] [id number] [place] [address] [place] Neutrophils/100 WBC (Bld) 66.9 % Normal [place] Comment on above: Order Comment: Speci men Type: BLOOD SPECIMENOrdering Facility: [facility] Address: [address] [place] [address] Performed By: #### 5 7021-8 ####[facility] [id number] [place] [address] [place] Nucleated RBC (Bld) [#/Vol] 10*3/uL Normal <0.01 [place] Comment on above: Order Comment: Speci men Type: BLOOD SPECIMENOrdering Facility: [facility] Address: [address] [place] [address] Performed By: #### 5 7021-8 ####[facility] [id number] [place] [address] [place] Nucleated RBC/100 WBC (Bld) [Ratio] 0.0 /100 WBC Normal [place] Comment on above: Order Comment: Speci men Type: BLOOD SPECIMENOrdering Facility: [facility] Address: [address] [place] [address] Performed By: #### 5 7021-8 ####[facility] [id number] [place] [address] [place] Platelet mean volume (Bld) [Entitic vol] 11.2 fL Normal 9.0-12.7 [place] Comment on above: Order Comment: Speci men Type: BLOOD SPECIMENOrdering Facility: [facility] Address: [address] [place] [address] Performed By: #### 5 7021-8 ####[facility] [id number] [place] [address] [place] Platelets (Bld) [#/Vol] 105 10*3/uL Low 150-400 [place] Comment on above: Order Comment: Speci men Type: BLOOD SPECIMENOrdering Facility: [facility] Address: [address] [place] [address] Performed By: #### 5 7021-8 ####[facility] [id number] [place] [address] [place] RBC (Bld) [#/Vol] 3.68 10*6/uL Low 3.90-5.20 [facility] Comment on above: Order Comment: Speci men Type: BLOOD SPECIMENOrdering Facility: [facility] Address: [address] [place] [address] Performed By: #### 5 7021-8 ####[facility] [id number] [place] [address] [place] WBC (Bld) [#/Vol] 4.02 10*3/uL Normal 3.70-11.00 [facility] Comment on above: Order Comment: Speci men Type: BLOOD SPECIMENOrdering Facility: [facility] Address: [address] [place] [address] Performed By: #### 5 7021-8 ####[facility] PRIYAVANITA [id number] [place] [address] [place] Comprehensive metabolic 2000 panelon 01-08-2025 Albumin [Mass/Vol] 3.7 g/dL Low 3.9-4.9 [facility] Comment on above: Order Comment: Speci men Type: BLOOD SPECIMENOrdering Facility: [facility] Address: [address] [place] [address] Performed By: #### 2 4323-8 ####[facility] [id number] [place] [address] [place] ALP [Catalytic activity/Vol] 143 U/L High 34-123 [place] Comment on above: Order Comment: Speci men Type: BLOOD SPECIMENOrdering Facility: [facility] Address: [address] [place] [address] Performed By: #### 2 4323-8 ####[facility]PITALALEXANDERA [id number] [place] [address] [place] ALT [Catalytic activity/Vol] 16 U/L Normal 7-38 [place] Comment on above: Order Comment: Speci men Type: BLOOD SPECIMENOrdering Facility: [facility] Address: [address] [place] [address] Performed By: #### 2 4323-8 ####[facility]ITALNCLIA [id number] [place] [address] [place] Anion gap [Moles/Vol] 5 mmol/L Low 8-15 [facility] Comment on above: Order Comment: Speci men Type: BLOOD SPECIMENOrdering Facility: [facility] Address: [address] [place] [address] Performed By: #### 2 4323-8 ####[facility] FRED MILLTOWNCLIA [id number] [place] [address] [place] AST [Catalytic activity/Vol] 24 U/L Normal 13-35 [place] Comment on above: Order Comment: Speci men Type: BLOOD SPECIMENOrdering Facility: [facility] Address: [address] [place] [address] Performed By: #### 2 4323-8 ####[facility] MILLTOWNCLIA [id number] [place] [address] [place] Bilirubin [Mass/Vol] 0.7 mg/dL Normal 0.2-1.3 [facility] Comment on above: Order Comment: Speci men Type: BLOOD SPECIMENOrdering Facility: [facility] Address: [address] [place] [address] Performed By: #### 2 4323-8 ####[facility]THWNCL[facility] [id number] [place] [address] [place] Calcium [Mass/Vol] 8.9 mg/dL Normal 8.5-10.2 [facility] Comment on above: Order Comment: Speci men Type: BLOOD SPECIMENOrdering Facility: [facility] Address: [address] [place] [address] Performed By: #### 2 4323-8 ####[facility] MILLWNCLIA [id number] [place] [address] [place] Chloride [Moles/Vol] 108 mmol/L High 98-107 [facility] Comment on above: Order Comment: Speci men Type: BLOOD SPECIMENOrdering Facility: [facility] Address: [address] [place] [address] Performed By: #### 2 4323-8 ####[facility]ITALNCL[facility] [id number] [place] [address] [place] CO2 [Moles/Vol] 25 mmol/L Normal 22-30 [place] Comment on above: Order Comment: Speci men Type: BLOOD SPECIMENOrdering Facility: [facility] Address: [address] [place] [address] Performed By: #### 2 4323-8 ####[facility] [id number] [place] [address] [place] Creatinine [Mass/Vol] 0.90 mg/dL Normal 0.58-0.96 [facility] Comment on above: Order Comment: Speci men Type: BLOOD SPECIMENOrdering Facility: [facility] Address: [address] [place] [address] Performed By: #### 2 4323-8 ####[facility] [id number] [address] OF [facility] Creatinine and Glomerular filtration rate.predicted panel (S/P/Bld) 69 mL/min/1.73m??? Normal >=60 [place] Comment on above: Order Comment: Speci men Type: BLOOD SPECIMENOrdering Facility: [facility] Address: [address] [place] [address] Result Comment: Sally mated Glomerular Filtration Rate (eGFR) is calculated using the 2020 CKD-EPI creatinine equation. This equation utilizes serum creatinine, sex, and age as parameters. The creatinine assay has traceable calibration to isotope dilution-mass spectrometry. Refer to KDIGO guidelines for clinical interpretation. In patients with unstable renal function, e.g. those with acute kidney injury, the eGFR may not accurately reflect actual GFR. Performed By: #### 2 4323-8 ####[facility] [id number] [place] [address] [place] Glucose [Mass/Vol] 164 mg/dL High 74-99 [facility] Comment on above: Order Comment: Speci men Type: BLOOD SPECIMENOrdering Facility: [facility] Address: [address] [place] [address] Result Comment: The [place] Diabetes Association (ADA) provides guidance for cutoff values for fasting glucose and random glucose. The ADA defines fasting as no caloric intake for at least 8 hours. Fasting plasma glucose results between 100 to 125 mg/dL indicate increased risk for diabetes (prediabetes).Fasting plasma glucose results greater than or equal to 126 mg/dL meet the criteria for diagnosis of diabetes. In the absence of unequivocal hyperglycemia, results should be confirmed by repeat testing. In a patient with classic symptoms of hyperglycemia or hyperglycemic crisis, random plasma glucose results greater than or equal to 200 mg/dL meet the criteria for diagnosis of diabetes.Reference: Standards of Medical Care in Diabetes 2016, [place] [employer] Association. Diabetes Care. 2016.39(Suppl 1). Performed By: #### 2 4323-8 ####[facility] [id number] [place] [address] [place] Potassium [Moles/Vol] 3.7 mmol/L Normal 3.7-5.1 [facility] Comment on above: Order Comment: Speci men Type: BLOOD SPECIMENOrdering Facility: [facility] Address: [address] [place] [address] Performed By: #### 2 4323-8 ####[facility] [id number] [place] [address] [place] Protein [Mass/Vol] 5.9 g/dL Low 6.3-8.0 [facility] Comment on above: Order Comment: Speci men Type: BLOOD SPECIMENOrdering Facility: [facility] Address: [address] [place] [address] Performed By: #### 2 4323-8 ####[facility] [id number] [place] [address] [place] Sodium [Moles/Vol] 138 mmol/L Normal 136-144 [facility] Comment on above: Order Comment: Speci men Type: BLOOD SPECIMENOrdering Facility: [facility] Address: [address] [place] [address] Performed By: #### 2 4323-8 ####[facility] PRIYATOWNCLIA [id number] [place], [place] [id number] [place] [address] [place] Urea nitrogen [Mass/Vol] 12 mg/dL Normal 7-21 [place] Comment on above: Order Comment: Speci men Type: BLOOD SPECIMENOrdering Facility: [facility] Address: [facility] [place] [id number] Performed By: #### 2 4323-8 ####[facility] SHOAIBWNCLIA [id number] [place] [address] [facility] [place] CNOVon 12-16-2024 CNOV Office Visit ([facility]) -- DANIASARAYBARBARA PEDRAZA ([id number]) 1955 F Date Time Provider Department 12/16/24 11:30 AM MERY HERNANDEZ3 During your visit today, we recorded the following information about you: Pulse Blood pressure Height 77/minute 110/58 1.626 m Mery Hernandez MD 12/16/2024 12:01 PM Signed Mery Hernandez M.D. Surgical Oncology [address] [facility], [address] [place] [id number] Barbara is a 69-year-old female with a history of retroperitoneal/mesenteric /peritoneal nodularity and a flank hernia, presenting for routine follow-up. Barbara was last seen in August 2024 for concerns of retroperitoneal/mesenteric /peritoneal nodularity. An interval CT scan at that time showed no significant changes over 3 months. An MRI was performed subsequently, which did not demonstrate any concerning findings in the retroperitoneum and no obvious signs of peritoneal disease. Barbara was also referred to general surgery for consideration of a flank hernia repair. Barbara reports no major problems since the last visit. She inquires if the scarring observed could be related to a previous nephrectomy. She mentions having an appointment with Dr. Wu for her hernia but had to reschedule due to a liver ultrasound elastography test. 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 Barbara was advised to reschedule her appointment with Dr. Wu. The ROS, medical, surgical, family, and social history were reviewed by Mery Hernandez MD. BP 110/58 Pulse 77 Ht 162.6 cm (5' 4) SpO2 98% BMI 34.50 kg/m? No weight on file for this encounter. Physical Exam Constitutional: General: She is not in acute distress. HENT: Head: Normocephalic and atraumatic. Eyes: Pupils: Pupils are equal, round, and reactive to light. Neck: Thyroid: No thyromegaly. Trachea: No tracheal deviation. Cardiovascular: Rate and Rhythm: Normal rate and regular rhythm. Heart sounds: Normal heart sounds. Pulmonary: Effort: Pulmonary effort is normal. No respiratory distress. Breath sounds: Normal breath sounds. No stridor. Abdominal: General: There is no distension. Palpations: Abdomen is soft. Tenderness: There is no abdominal tenderness. Musculoskeletal: General: No deformity. Normal range of motion. Skin: General: Skin is warm and dry. Findings: No erythema or rash. Neurological: Mental Status: She is alert and oriented to person, place, and time. Psychiatric: Mood and Affect: Affect normal. Judgment: Judgment normal. 1. Right lower quadrant abdominal pain (R10.31) - MRI showed no concerning findings in the retroperitoneum and no obvious signs of peritoneal disease. 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 Discussed that the hernia may contribute to focal pain and has likely been present for an extended period. Patient has been referred to Dr. Wu for consideration of flank hernia repair; will ensure follow-up appointment is scheduled. No further imaging or intervention required from my perspective at this time. Patient understands and agrees with the plan. The patient consented to the use of ambient AI software for draft documentation of the visit consistent with [facility]?s Notice of Privacy Practices. I spent a total of 30 minutes on the date of the service which included preparing to see the patient, completing clinical documentation, performing a medically appropriate examination, counseling and educating the patient/family/caregiver, and independently interpreting results (not separately reported). Mery Hernandez MD 12/16/2024 12:01 PM Allergies As of Date: 12/16/2024 Noted Allergy Reaction MOLD 12/27/2017 16 - Unknown ADHESIVE TAPE (ROSINS) 11/06/2017 2 - Rash JANUVIA (SITAGLIPTIN) 04/30/2023 5 - Intolerance Comments: GI upset, aching of muscles, headaches LATEX 06/27/2017 9 - Itching Date Reviewed: 12/16/2024 Reviewed by: Mery Hernandez MD - Fully Assessed Reason for Visit: Follow Up [171] Cmt: 3 month check up Primary Visit Diagnosis:Right lower quadrant abdominal pain [R10.31] Prescriptions as of 12/16/2024 - furosemide (LASIX) 40 mg tablet Take 1 tablet by mouth once daily. - albuterol HFA (VENTOLIN HFA) 90 mcg/actuation inhaler Inhale 2 Puffs as instructed every 4 hours as needed for wheezing/shortness of breath. - SYNTHROID 137 mcg tablet Take 1 tablet by mouth once daily. In the morning - Ferrous Gluconate (FERGON) 324 mg (38 mg iron) tablet 324 mg. - midodrine (PROAMITINE) 5 mg tablet Take 5 mg by mouth three times a day. 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 Normal [facility] CNPNon 12-10-2024 CNPN Normal [place] Office Visit Reporton 2024 Office Visit Report Normal [facility] CBC W Auto Differential pane l (Bld)on 11-25-2024 Basophils (Bld) [#/Vol] 10*3/uL Normal <0.11 [place] Comment on above: Order Comment: Speci men Type: BLOOD SPECIMENOrdering Facility: [facility] Address: [address] [place] [address] Performed By: #### 5 7021-8 ####[facility] LABCLIA [id number] [address] [place] Basophils/100 WBC (Bld) 0.4 % Normal [place] Comment on above: Order Comment: Speci men Type: BLOOD SPECIMENOrdering Facility: [facility] Address: [address] [place] [address] Performed By: #### 5 7021-8 ####[facility] LABCLIA [id number] [place] [address] [place] Differential cell count method Nom (Bld) Auto Normal [place] Comment on above: Order Comment: Speci men Type: BLOOD SPECIMENOrdering Facility: [facility] Address: [address] [place] [address] Performed By: #### 5 7021-8 ####[facility] LABCLIA [id number] [place] [address] [place] Eosinophils (Bld) [#/Vol] 0.11 10*3/uL Normal <0.46 [place] Comment on above: Order Comment: Speci men Type: BLOOD SPECIMENOrdering Facility: [facility] Address: [address] [place] [address] Performed By: #### 5 7021-8 ####[facility] LABCLIA [id number] [place] [address] [place] Eosinophils/100 WBC (Bld) 4.3 % Normal [place] Comment on above: Order Comment: Speci men Type: BLOOD SPECIMENOrdering Facility: [facility] Address: [address] [place] [address] Performed By: #### 5 7021-8 ####[facility] LABCLIA [id number] [place] [address] [place] Erythrocyte distribution width (RBC) [Ratio] 21.4 % High 11.5-15.0 [place] Comment on above: Order Comment: Speci men Type: BLOOD SPECIMENOrdering Facility: [facility] Address: [address] [place], [place] [address] Performed By: #### 5 7021-8 ####[facility] LABCLIA [id number] [place] [address] [place] Hematocrit (Bld) [Volume fraction] 32.9 % Low 36.0-46.0 [place] Comment on above: Order Comment: Speci men Type: BLOOD SPECIMENOrdering Facility: [facility] Address: [address] [place] [address] Performed By: #### 5 7021-8 ####[facility] LABIA [id number] [address], [place] [address] [place] Hemoglobin (Bld) [Mass/Vol] 10.0 g/dL Low 11.5-15.5 [place] Comment on above: Order Comment: Speci men Type: BLOOD SPECIMENOrdering Facility: [facility] Address: [address] [place] [address] Performed By: #### 5 7021-8 ####[facility] LABCLIA [id number] [address], [place] [address] [place] Immature granulocytes (Bld) [#/Vol] 10*3/uL Normal <0.10 [place] Comment on above: Order Comment: Speci men Type: BLOOD SPECIMENOrdering Facility: [facility] Address: [address] [place] [address] Performed By: #### 5 7021-8 ####[facility] LABCLIA [id number] [place] [id number] [place] Immature granulocytes/100 WBC (Bld) 0.4 % Normal [place] Comment on above: Order Comment: Speci men Type: BLOOD SPECIMENOrdering Facility: [facility] Address: [address] [place] [address] Performed By: #### 5 7021-8 ####[facility] LABCLIA [id number] [place] [id number] [place] Lymphocytes (Bld) [#/Vol] 0.64 10*3/uL Low 1.00-4.00 [place] Comment on above: Order Comment: Speci men Type: BLOOD SPECIMENOrdering Facility: [facility] Address: [address] [place] [address] Performed By: #### 5 7021-8 ####[facility] LABCLIA [id number] [place] [address] [place] Lymphocytes/100 WBC (Bld) 24.9 % Normal [place] Comment on above: Order Comment: Speci men Type: BLOOD SPECIMENOrdering Facility: [facility] Address: [address] [place] [address] Performed By: #### 5 7021-8 ####[facility] LABIA [id number] [place] [address] [place] MCH (RBC) [Entitic mass] 29.2 pg Normal 26.0-34.0 [place] Comment on above: Order Comment: Speci men Type: BLOOD SPECIMENOrdering Facility: [facility] Address: [address] [place] [address] Performed By: #### 5 7021-8 ####[facility] LABIA [id number] [place] [address] [place] MCHC (RBC) [Mass/Vol] 30.4 g/dL Low 30.5-36.0 [facility] Comment on above: Order Comment: Speci men Type: BLOOD SPECIMENOrdering Facility: [facility] Address: [address] [place] [address] Performed By: #### 5 7021-8 ####[facility] LABIA [id number] [place] [address] [place] MCV (RBC) [Entitic vol] 95.9 fL Normal 80.0-100.0 [place] Comment on above: Order Comment: Speci men Type: BLOOD SPECIMENOrdering Facility: [facility] Address: [address] [place] [address] Performed By: #### 5 7021-8 ####[facility] LABCLIA [id number] [place] [address] [place] Monocytes (Bld) [#/Vol] 0.28 10*3/uL Normal <0.87 [place] Comment on above: Order Comment: Speci men Type: BLOOD SPECIMENOrdering Facility: [facility] Address: [address] [place] [address] Performed By: #### 5 7021-8 ####[facility] LABCLIA [id number] [place] [address] [place] Monocytes/100 WBC (Bld) 10.9 % Normal [place] Comment on above: Order Comment: Speci men Type: BLOOD SPECIMENOrdering Facility: [facility] Address: [address] [place] [address] Performed By: #### 5 7021-8 ####[facility] LABCLIA [id number] [place] [address] [place] Neutrophils (Bld) [#/Vol] 1.52 10*3/uL Normal 1.45-7.50 [place] Comment on above: Order Comment: Speci men Type: BLOOD SPECIMENOrdering Facility: [facility] Address: [address] [place] [address] Performed By: #### 5 7021-8 ####[facility] LABCLIA [id number] [place] [id number] [place] Neutrophils/100 WBC (Bld) 59.1 % Normal [place] Comment on above: Order Comment: Speci men Type: BLOOD SPECIMENOrdering Facility: [facility] Address: [address] [place] [address] Performed By: #### 5 7021-8 ####[facility] LABCLIA [id number] [place] [address] [place] Nucleated RBC (Bld) [#/Vol] 10*3/uL Normal <0.01 [place] Comment on above: Order Comment: Speci men Type: BLOOD SPECIMENOrdering Facility: [facility] Address: [address] [place] [address] Performed By: #### 5 7021-8 ####[facility] LABCLIA [id number] [place] [address] [place] Nucleated RBC/100 WBC (Bld) [Ratio] 0.0 /100 WBC Normal [place] Comment on above: Order Comment: Speci men Type: BLOOD SPECIMENOrdering Facility: [facility] Address: [address] [place] [address] Performed By: #### 5 7021-8 ####[facility] LABIA [id number] [place] [address] [place] Platelet mean volume (Bld) [Entitic vol] 10.4 fL Normal 9.0-12.7 [place] Comment on above: Order Comment: Speci men Type: BLOOD SPECIMENOrdering Facility: [facility] Address: [address] [place] [address] Performed By: #### 5 7021-8 ####[facility] LABIA [id number] [place] [address] [place] Platelets (Bld) [#/Vol] 82 10*3/uL Low 150-400 [place] Comment on above: Order Comment: Speci men Type: BLOOD SPECIMENOrdering Facility: [facility] Address: [address] [place] [address] Result Comment: No c lot detected. Performed By: #### 5 7021-8 ####[facility] LABCLIA [id number] [place] [address] [place] RBC (Bld) [#/Vol] 3.43 10*6/uL Low 3.90-5.20 [facility] Comment on above: Order Comment: Speci men Type: BLOOD SPECIMENOrdering Facility: [facility] Address: [address] [place] [address] Performed By: #### 5 7021-8 ####[facility] LABCLIA [id number] [address] [address] [place] WBC (Bld) [#/Vol] 2.57 10*3/uL Low 3.70-11.00 [facility] Comment on above: Order Comment: Speci men Type: BLOOD SPECIMENOrdering Facility: [facility] Address: [address] [place] [address] Performed By: #### 5 7021-8 ####[facility] LABCLIA [id number] [place] [address] [place] CNOVon 11-25-2024 CNOV Normal [place] Comprehensive metabolic 2000 panelon 11-25-2024 Albumin [Mass/Vol] 3.9 g/dL Normal 3.9-4.9 [facility] Comment on above: Order Comment: Speci men Type: BLOOD SPECIMENOrdering Facility: [facility] Address: [address] [place] [address] Performed By: #### 2 4323-8 ####[facility] LABCLIA [id number] [place] [id number] [place] ALP [Catalytic activity/Vol] 163 U/L High 34-123 [place] Comment on above: Order Comment: Speci men Type: BLOOD SPECIMENOrdering Facility: [facility] Address: [address] [place] [address] Performed By: #### 2 4323-8 ####[facility] LABCLIA [id number] [place] [id number] [place] ALT [Catalytic activity/Vol] 19 U/L Normal 7-38 [place] Comment on above: Order Comment: Speci men Type: BLOOD SPECIMENOrdering Facility: [facility] Address: [address] [place] [address] Performed By: #### 2 4323-8 ####[facility] LABCLIA [id number] [facility] [address] [place] [address] [place] Anion gap [Moles/Vol] 12 mmol/L Normal 8-15 [facility] Comment on above: Order Comment: Speci men Type: BLOOD SPECIMENOrdering Facility: [facility] Address: [address] [place], [place] [address] Performed By: #### 2 4323-8 ####[facility] LABCLIA [id number] [facility] [address] [place] [address] [place] AST [Catalytic activity/Vol] 33 U/L Normal 13-35 [place] Comment on above: Order Comment: Speci men Type: BLOOD SPECIMENOrdering Facility: [facility] Address: [address] [place], [place] [address] Performed By: #### 2 4323-8 ####[facility] LABCLIA [id number] [facility] [address] [place] [address] [place] Bilirubin [Mass/Vol] 1.3 mg/dL Normal 0.2-1.3 [facility] Comment on above: Order Comment: Speci men Type: BLOOD SPECIMENOrdering Facility: [facility] Address: [address] [place] [address] Performed By: #### 2 4323-8 ####[facility] LABCLIA [id number] [facility] [address] [place] [address] [place] Calcium [Mass/Vol] 9.4 mg/dL Normal 8.5-10.2 [facility] Comment on above: Order Comment: Speci men Type: BLOOD SPECIMENOrdering Facility: [facility] Address: [address] [place] [address] Performed By: #### 2 4323-8 ####[facility] LABCLIA [id number] [facility] [id number] [place] Chloride [Moles/Vol] 107 mmol/L Normal 98-107 [facility] Comment on above: Order Comment: Speci men Type: BLOOD SPECIMENOrdering Facility: [facility] Address: [address] [place] [address] Performed By: #### 2 4323-8 ####[facility] LABCLIA [id number] [place] [id number] [place] CO2 [Moles/Vol] 24 mmol/L Normal 22-30 [place] Comment on above: Order Comment: Speci men Type: BLOOD SPECIMENOrdering Facility: [facility] Address: [address] [place] [address] Performed By: #### 2 4323-8 ####[facility] LABIA [id number] [place] [id number] [place] [facility] Creatinine [Mass/Vol] 0.90 mg/dL Normal 0.58-0.96 [facility] Comment on above: Order Comment: Speci men Type: BLOOD SPECIMENOrdering Facility: [facility] Address: [address] [place] [address] Performed By: #### 2 4323-8 ####[facility] LABIA [id number] [address] OF [facility] Creatinine and Glomerular filtration rate.predicted panel (S/P/Bld) 69 mL/min/1.73m??? Normal >=60 [place] Comment on above: Order Comment: Speci men Type: BLOOD SPECIMENOrdering Facility: [facility] Address: [address] [place] [address] Result Comment: Sally mated Glomerular Filtration Rate (eGFR) is calculated using the 2020 CKD-EPI creatinine equation. This equation utilizes serum creatinine, sex, and age as parameters. The creatinine assay has traceable calibration to isotope dilution-mass spectrometry. Refer to KDIGO guidelines for clinical interpretation. In patients with unstable renal function, e.g. those with acute kidney injury, the eGFR may not accurately reflect actual GFR. Performed By: #### 2 4323-8 ####[facility] LABIA [id number] [place] [address] [place] Glucose [Mass/Vol] 140 mg/dL High 74-99 [facility] Comment on above: Order Comment: Speci men Type: BLOOD SPECIMENOrdering Facility: [facility] Address: [address] [place] [address] Result Comment: The [place] [employer] (ADA) provides guidance for cutoff values for fasting glucose and random glucose. The ADA defines fasting as no caloric intake for at least 8 hours. Fasting plasma glucose results between 100 to 125 mg/dL indicate increased risk for diabetes (prediabetes).Fasting plasma glucose results greater than or equal to 126 mg/dL meet the criteria for diagnosis of diabetes. In the absence of unequivocal hyperglycemia, results should be confirmed by repeat testing. In a patient with classic symptoms of hyperglycemia or hyperglycemic crisis, random plasma glucose results greater than or equal to 200 mg/dL meet the criteria for diagnosis of diabetes.Reference: Standards of Medical Care in Diabetes 2016, [place] [employer]. Diabetes Care. 2016.39(Suppl 1). Performed By: #### 2 4323-8 ####[facility] LABIA [id number] [place] [address] [place] Potassium [Moles/Vol] 3.2 mmol/L Low 3.7-5.1 [facility] Comment on above: Order Comment: Speci men Type: BLOOD SPECIMENOrdering Facility: [facility] Address: [address] [place] [address] Performed By: #### 2 4323-8 ####[facility] [id number] [place] [id number] [place] Protein [Mass/Vol] 6.2 g/dL Low 6.3-8.0 [facility] Comment on above: Order Comment: Speci men Type: BLOOD SPECIMENOrdering Facility: [facility] Address: [address] [place] [address] Performed By: #### 2 4323-8 ####[facility] LABCLIA [id number] [address] [address] [place] Sodium [Moles/Vol] 143 mmol/L Normal 136-144 [facility] Comment on above: Order Comment: Speci men Type: BLOOD SPECIMENOrdering Facility: [facility] Address: [address] [place] [address] Performed By: #### 2 4323-8 ####[facility] LABCLIA [id number] [place] [id number] [place] Urea nitrogen [Mass/Vol] 12 mg/dL Normal 7-21 [place] Comment on above: Order Comment: Speci men Type: BLOOD SPECIMENOrdering Facility: [facility] Address: [address] [place] [address] Performed By: #### 2 4323-8 ####[facility] LABIA [id number] [place] [id number] [place] Gastroenterology Visit Repor ton 11-20-2024 Gastroenterology Visit Report Normal [facility] FERRITINon 11-18-2024 Ferritin [Mass/Vol] 180 ng/mL 14.7 - 205.1 ng/mL [facility] Hepatic function 2000 panelo n 11-18-2024 Albumin [Mass/Vol] 3.6 g/dL Low 3.9 - 4.9 g/dL [facility] ALP [Catalytic activity/Vol] 149 U/L High 34 - 123 U/L [facility] ALT With P-5'-P [Catalytic activity/Vol] 18 U/L 7 - 38 U/L [facility] AST With P-5'-P [Catalytic activity/Vol] 27 U/L 13 - 35 U/L [facility] Bilirubin [Mass/Vol] 0.7 mg/dL 0.2 - 1 .3 mg/dL [facility] Bilirubin.conjugated [Mass/Vol] 0.3 mg/dL High NINF - 0.3 mg/dL [facility] Interpretation and review of laboratory results Abnormal [facility] Protein [Mass/Vol] 5.5 g/dL Low 6.3 - 8.0 g/dL [facility] Iron and Iron binding capaci ty panelon 11-18-2024 Iron [Mass/Vol] 74 ug/dL 41 - 186 ug/dL [facility] Iron binding capacity [Mass/Vol] 332 ug/dL 232 - 386 ug/dL [facility] Iron saturation [Mass fraction] 22.3 % 15.0 - 57.0 % [facility] No Panel Informationon 11-18 Interpretation and review of laboratory results Normal [facility] XR Chest PA and Lateralon IMPRESSION: Interval development of fluid and atelectasis at both lung bases. Left greater than right. Follow-up recommended Application Chemist: PSCCristy Transcribe Date/Time: Nov 18 2024 12:22P Dictated by : BASSAM AGEE MD This examination was interpreted and the report reviewed and electronically signed by: BASSAM AGEE MD on Nov 18 2024 12:26PM [facility] DIVISION OF RADIOLOGY * * *Final Report* * * DATE OF EXAM: Nov 17 2024 2:29PM WOX 5291 - XR CHEST 2V FRONTAL/LAT / PROCEDURE REASON: Portal venous hypertension (HCC) * * * * Physician Interpretation * * * * EXAMINATION: CHEST RADIOGRAPH (2 VIEW FRONTAL & LATERAL) CLINICAL HISTORY: Portal venous hypertension (HCC) MQ: XC2_6 EXAM DATE/TIME: 11/17/2024 2:29 PM COMPARISON: 07/07/2024 RESULT: Lines, tubes, and devices: None. Lungs and pleura: Interval development of small bilateral pleural fluid collections and basal atelectasis, left greater than right. No pneumothorax Cardiomediastinal silhouette: Normal cardiomediastinal silhouette. Bones and soft tissues: Unremarkable. DIVISION OF RADIOLOGY Provider, [facility] - 11/18/2024 * * *Final Report* * * DATE OF EXAM: Nov 17 2024 2:29PM WOX 5291 - XR CHEST 2V FRONTAL/LAT / PROCEDURE REASON: Portal venous hypertension (HCC) * * * * Physician Interpretation * * * * EXAMINATION: CHEST RADIOGRAPH (2 VIEW FRONTAL & LATERAL) CLINICAL HISTORY: Portal venous hypertension (HCC) MQ: XC2_6 EXAM DATE/TIME: 11/17/2024 2:29 PM COMPARISON: 07/07/2024 RESULT: Lines, tubes, and devices: None. Lungs and pleura: Interval development of small bilateral pleural fluid collections and basal atelectasis, left greater than right. No pneumothorax Cardiomediastinal silhouette: Normal cardiomediastinal silhouette. Bones and soft tissues: Unremarkable. IMPRESSION IMPRESSION: Interval development of fluid and atelectasis at both lung bases. Left greater than right. Follow-up recommended Application Chemist: PSCB Transcribe Date/Time: Nov 18 2024 12:22P Dictated by : BASSAM AGEE MD This examination was interpreted and the report reviewed and electronically signed by: BASSAM AGEE MD on Nov 18 2024 12:26PM EST [facility] XR Chest PA and LateralOrder ed By: Ccf Provider on 11-18-2024 [facility] CBC W Auto Differential pane l (Bld)on 11-17-2024 Basophils (Bld) [#/Vol] [facility] Basophils/100 WBC (Bld) 0.3 % [facility] Differential cell count method Nom (Bld) Auto [facility] Eosinophils (Bld) [#/Vol] 0.13 10*3/uL [facility] Eosinophils/100 WBC (Bld) 3.5 % [facility] Erythrocyte distribution width (RBC) [Ratio] 20.8 % High 11.5 - 15.0 % [facility] Hematocrit (Bld) [Volume fraction] 30 % Low 36.0 - 46.0 % [facility] Hemoglobin (Bld) [Mass/Vol] 9.1 g/dL Low 11.5 - 15.5 g/dL [facility] Immature granulocytes (Bld) [#/Vol[facility] Immature granulocytes/100 WBC (Bld) 0.3 % [facility] Interpretation and review of laboratory results Abnormal [facility] Lymphocytes (Bld) [#/Vol] 0.71 10*3/uL Low [facility] Lymphocytes/100 WBC (Bld) 19.3 % [facility] MCH (RBC) [Entitic mass] 28.3 pg 26.0 - 34.0 pg [facility] MCHC (RBC) [Mass/Vol] 30.3 g/dL Low 30.5 - 36.0 g/dL [facility] MCV (RBC) [Entitic vol] 93.5 fL 80.0 - 100.0 fL [facility] Monocytes (Bld) [#/Vol] 0.31 10*3/uL NINF [facility] Monocytes/100 WBC (Bld) 8.4 % [facility] Neutrophils (Bld) [#/Vol] 2.5 10*3/uL [facility] Neutrophils/100 WBC (Bld) 68.2 % [facility] Nucleated RBC (Bld) [#/Vol] NINF [facility] Nucleated RBC/100 WBC (Bld) [Ratio] 0 % /100 WBC [facility] Platelet mean volume (Bld) [Entitic vol] 10 fL 9.0 - 12.7 fL [facility] Platelets (Bld) [#/Vol] 99 10*3/uL Low [facility] Comment on above: No clot detected. RBC (Bld) [#/Vol] 3.21 10*6/uL Low 3.90 - 5.20 m/uL [facility] WBC (Bld) [#/Vol] 3.67 10*3/uL Low [facility] Basophils (Bld) [#/Vol] 10*3/uL Normal <0.11 [place] Comment on above: Order Comment: Speci men Type: BLOOD SPECIMENOrdering Facility: [facility] Address: [address] [place] [address] Performed By: #### 5 7021-8 ####[facility] [id number] [place] [address] [place] Basophils/100 WBC (Bld) 0.3 % Normal [place] Comment on above: Order Comment: Speci men Type: BLOOD SPECIMENOrdering Facility: [facility] Address: [address] [place] [address] Performed By: #### 5 7021-8 ####[facility] [id number] [place] [address] [place] Differential cell count method Nom (Bld) Auto Normal [place] Comment on above: Order Comment: Speci men Type: BLOOD SPECIMENOrdering Facility: [facility] Address: [address] [place] [address] Performed By: #### 5 7021-8 ####[facility] MILLWNCLIA [id number] [place] [address] [place] Eosinophils (Bld) [#/Vol] 0.13 10*3/uL Normal <0.46 [place] Comment on above: Order Comment: Speci men Type: BLOOD SPECIMENOrdering Facility: [facility] Address: [address] [place] [address] Performed By: #### 5 7021-8 ####[facility] [id number] [place] [address] [place] Eosinophils/100 WBC (Bld) 3.5 % Normal [place] Comment on above: Order Comment: Speci men Type: BLOOD SPECIMENOrdering Facility: [facility] Address: [address] [place] [address] Performed By: #### 5 7021-8 ####[facility] [id number] [place] [address] [place] Erythrocyte distribution width (RBC) [Ratio] 20.8 % High 11.5-15.0 [place] Comment on above: Order Comment: Speci men Type: BLOOD SPECIMENOrdering Facility: [facility] Address: [address] [place] [address] Performed By: #### 5 7021-8 ####[facility]THWNCLIA [id number] [place] [address] [place] Hematocrit (Bld) [Volume fraction] 30.0 % Low 36.0-46.0 [place] Comment on above: Order Comment: Speci men Type: BLOOD SPECIMENOrdering Facility: [facility] Address: [address] [place] [address] Performed By: #### 5 7021-8 ####[facility] [id number] [place] [address] [place] Hemoglobin (Bld) [Mass/Vol] 9.1 g/dL Low 11.5-15.5 [place] Comment on above: Order Comment: Speci men Type: BLOOD SPECIMENOrdering Facility: [facility] Address: [address] [place] [address] Performed By: #### 5 7021-8 ####[facility]THWAZLIA [id number] [place] [address] [place] Immature granulocytes (Bld) [#/Vol] 10*3/uL Normal <0.10 [place] Comment on above: Order Comment: Speci men Type: BLOOD SPECIMENOrdering Facility: [facility] Address: [address] [place] [address] Performed By: #### 5 7021-8 ####[facility] [id number] [place] [address] [place] Immature granulocytes/100 WBC (Bld) 0.3 % Normal [place] Comment on above: Order Comment: Speci men Type: BLOOD SPECIMENOrdering Facility: [facility] Address: [address] [place] [address] Performed By: #### 5 7021-8 ####[facility] [id number] [place] [address] [place] Lymphocytes (Bld) [#/Vol] 0.71 10*3/uL Low 1.00-4.00 [place] Comment on above: Order Comment: Speci men Type: BLOOD SPECIMENOrdering Facility: [facility] Address: [address] [place] [address] Performed By: #### 5 7021-8 ####[facility] [id number] [place] [address] [place] Lymphocytes/100 WBC (Bld) 19.3 % Normal [place] Comment on above: Order Comment: Speci men Type: BLOOD SPECIMENOrdering Facility: [facility] Address: [address] [place] [address] Performed By: #### 5 7021-8 ####[facility] PRIYATobyNCPRISCILLA [id number] [address] [place] MCH (RBC) [Entitic mass] 28.3 pg Normal 26.0-34.0 [place] Comment on above: Order Comment: Speci men Type: BLOOD SPECIMENOrdering Facility: [facility] Address: [address] [place] [address] Performed By: #### 5 7021-8 ####[facility] [id number] [address] [place] MCHC (RBC) [Mass/Vol] 30.3 g/dL Low 30.5-36.0 [facility] Comment on above: Order Comment: Speci men Type: BLOOD SPECIMENOrdering Facility: [facility] Address: [address] [place] [address] Performed By: #### 5 7021-8 ####[facility]OSPITALNCA [id number] [address] [place] MCV (RBC) [Entitic vol] 93.5 fL Normal 80.0-100.0 [place] Comment on above: Order Comment: Speci men Type: BLOOD SPECIMENOrdering Facility: [facility] Address: [address] [place] [address] Performed By: #### 5 7021-8 ####[facility]ITALNCLIA [id number] [place] [address] [place] Monocytes (Bld) [#/Vol] 0.31 10*3/uL Normal <0.87 [place] Comment on above: Order Comment: Speci men Type: BLOOD SPECIMENOrdering Facility: [facility] Address: [address] [place] [address] Performed By: #### 5 7021-8 ####[facility] PRIYAWNCLIA [id number] [place] [address] [place] Monocytes/100 WBC (Bld) 8.4 % Normal [place] Comment on above: Order Comment: Speci men Type: BLOOD SPECIMENOrdering Facility: [facility] Address: [address] [place] [address] Performed By: #### 5 7021-8 ####[facility] [id number] [place] [address] [place] Neutrophils (Bld) [#/Vol] 2.50 10*3/uL Normal 1.45-7.50 [place] Comment on above: Order Comment: Speci men Type: BLOOD SPECIMENOrdering Facility: [facility] Address: [address] [place] [address] Performed By: #### 5 7021-8 ####[facility] [id number] [place] [address] [place] Neutrophils/100 WBC (Bld) 68.2 % Normal [place] Comment on above: Order Comment: Speci men Type: BLOOD SPECIMENOrdering Facility: [facility] Address: [address] [place] [address] Performed By: #### 5 7021-8 ####[facility] [id number] [place] [address] [place] Nucleated RBC (Bld) [#/Vol] 10*3/uL Normal <0.01 [place] Comment on above: Order Comment: Speci men Type: BLOOD SPECIMENOrdering Facility: [facility] Address: [address] [place] [address] Performed By: #### 5 7021-8 ####[facility] [id number] [place] [address] [place] Nucleated RBC/100 WBC (Bld) [Ratio] 0.0 /100 WBC Normal [place] Comment on above: Order Comment: Speci men Type: BLOOD SPECIMENOrdering Facility: [facility] Address: [address] [place] [address] Performed By: #### 5 7021-8 ####[facility] HOSPITALHAYLIE [id number] [place] [address] [place] Platelet mean volume (Bld) [Entitic vol] 10.0 fL Normal 9.0-12.7 [place] Comment on above: Order Comment: Speci men Type: BLOOD SPECIMENOrdering Facility: [facility] Address: [address] [place] [address] Performed By: #### 5 7021-8 ####[facility] HOSPITALHAYLIE [id number] [place] [address] [place] Platelets (Bld) [#/Vol] 99 10*3/uL Low 150-400 [place] Comment on above: Order Comment: Speci men Type: BLOOD SPECIMENOrdering Facility: [facility] Address: [address] [place] [address] Result Comment: No c lot detected. Performed By: #### 5 7021-8 ####[facility] HOSPITALALEXANDERA [id number] [place] [address] [place] RBC (Bld) [#/Vol] 3.21 10*6/uL Low 3.90-5.20 [facility] Comment on above: Order Comment: Speci men Type: BLOOD SPECIMENOrdering Facility: [facility] Address: [address] [place] [address] Performed By: #### 5 7021-8 ####[facility]ITALNCLIA [id number] [place] [address] [place] WBC (Bld) [#/Vol] 3.67 10*3/uL Low 3.70-11.00 [facility] Comment on above: Order Comment: Speci men Type: BLOOD SPECIMENOrdering Facility: [facility] Address: [address] [place] [address] Performed By: #### 5 7021-8 ####[facility] FRED MILLTOWNCLIA [id number] [place] [address] [place] CNOVon 11-17-2024 CNOV Normal [place] Ferritin SerPl-mCncon 2024 Ferritin [Mass/Vol] 180.0 ng/mL Normal 14.7-205.1 [facility] Comment on above: Order Comment: Speci men Type: BLOOD SPECIMENOrdering Facility: [facility] Address: [address] [place] [address] Performed By: #### 2 276-4, 94755-5, 01777-8 ####[facility] LABORATORYCLIA [id number] [place] [address] [place] Hepatic function 2000 panelo n 11-17-2024 Albumin [Mass/Vol] 3.6 g/dL Low 3.9-4.9 [facility] Comment on above: Order Comment: Speci men Type: BLOOD SPECIMENOrdering Facility: [facility] Address: [address] [place] [address] Performed By: #### 2 276-4, 38854-2, 19474-2 ####[facility] LABORATORYCLIA [id number] [place] [address] [place] ALP [Catalytic activity/Vol] 149 U/L High 34-123 [place] Comment on above: Order Comment: Speci men Type: BLOOD SPECIMENOrdering Facility: [facility] Address: [address] [place] [address] Performed By: #### 2 276-4, 82138-7, 46030-2 ####[facility] LABORATORYCLIA [id number] [place] [address] [place] ALT With P-5'-P [Catalytic activity/Vol] 18 U/L Normal 7-38 [place] Comment on above: Order Comment: Speci men Type: BLOOD SPECIMENOrdering Facility: [facility] Address: [address] [place] [address] Performed By: #### 2 276-4, 12726-6, 47996-8 ####[facility] LABORATORYCLIA [id number] [place] [address] [place] AST With P-5'-P [Catalytic activity/Vol] 27 U/L Normal 13-35 [place] Comment on above: Order Comment: Speci men Type: BLOOD SPECIMENOrdering Facility: [facility] Address: [address] [place] [address] Performed By: #### 2 276-4, 48208-4, 08893-7 ####[facility] LABORATORYCLIA [id number] [place] [address] [place] Bilirubin [Mass/Vol] 0.7 mg/dL Normal 0.2-1.3 [facility] Comment on above: Order Comment: Speci men Type: BLOOD SPECIMENOrdering Facility: [facility] Address: [address] [place] [address] Performed By: #### 2 276-4, 37850-9, 09530-7 ####[facility] LABORATORYCLIA [id number] [address] [place] Bilirubin.conjugated [Mass/Vol] 0.3 mg/dL High <0.3 [place] Comment on above: Order Comment: Speci men Type: BLOOD SPECIMENOrdering Facility: [facility] Address: [address] [place] [address] Performed By: #### 2 276-4, 73161-6, 40751-3 ####[facility] LABORATORYCLIA [id number] [place] [address] [place] Protein [Mass/Vol] 5.5 g/dL Low 6.3-8.0 [facility] Comment on above: Order Comment: Speci men Type: BLOOD SPECIMENOrdering Facility: [facility] Address: [address] [place] [address] Performed By: #### 2 276-4, 47740-2, 69634-2 ####[employer].[facility]AM[facility] LABORATORYCLIA [id number] [place] [address] [facility] [place] Iron and Iron binding capaci ty panelon 11-17-2024 Iron [Mass/Vol] 74 ug/dL Normal 41-186 [place] Comment on above: Order Comment: Speci men Type: BLOOD SPECIMENOrdering Facility: [facility] Address: [address] [place] [address] Performed By: #### 2 276-4, 31015-3, 38772-2 ####[facility] LABORATORYCLIA [id number] [place] [id number] [place] Iron binding capacity [Mass/Vol] 332 ug/dL Normal 232-386 [place] Comment on above: Order Comment: Speci men Type: BLOOD SPECIMENOrdering Facility: [facility] Address: [address] [place] [address] Performed By: #### 2 276-4, 41977-8, 89041-5 ####[facility] LABORATORYCLIA [id number] [place] [id number] [facility] Iron saturation [Mass fraction] 22.3 % Normal 15.0-57.0 [place] Comment on above: Order Comment: Speci men Type: BLOOD SPECIMENOrdering Facility: [facility] Address: [address] [place] [address] Performed By: #### 2 276-4, 17708-0, 85798-2 ####[facility] LABORATORYCLIA [id number] [place] [id number] [place] XR CHEST 2V FRONTAL/LATon XR CHEST 2V FRONTAL/LAT Normal [place] XR Chest PA and Lateralon Radiology Study observation (narrative) [facility] Cancer Antigen 125on 11-11- 025 CA 125 120.0 U/mL High 0.0-38.1 [facility] Comment on above: Order Comment: REDRA W FROM -. ORDERED BY DR ZIMMER Result Comment: [employer] Electrochemiluminescence Immunoassay(ECLIA)Values obtained with different assay methods or kits cannotbe used interchangeably. Results cannot be interpreted asabsolute evidence of the presence or absence of malignantdisease.Performed at: [address] [id number] Director: Sunny Rincon PhD, Phone: [phone] Performed By: #### L 3100.5000, L100.0100, L3100.2300, L500.2500, L3100.5020 ####[facility] [address] [place], [address] Carbohydrate AG 19-9on 11-11 CA 19-9 18 U/mL Normal 0-35 [facility] Comment on above: Order Comment: REDRA W FROM 10-22. ORDERED BY DR ZIMMER Result Comment: [employer] Electrochemiluminescence Immunoassay(ECLIA)Values obtained with different assay methods or kits cannotbe used interchangeably. Results cannot be interpreted asabsolute evidence of the presence or absence of malignantdisease. Performed By: #### L 3100.5000, L100.0100, L3100.2300, L500.2500, L3100.5020 ####[facility] [address] [place], [address] Carcinoembryonic Antigenon 0 11-11-2024 CEA 1.9 ng/mL Normal 0.0-4.7 [facility] Comment on above: Order Comment: REDRA W FROM -. ORDERED BY DR ZIMMER Result Comment: Nons mokers <3.9 Smokers <5.6[employer] Electrochemiluminescence Immunoassay(ECLIA)Values obtained with different assay methods or kitscannot be used interchangeably. Results cannot beinterpreted as absolute evidence of the presence orabsence of malignant disease. Performed By: #### L 3100.5000, L100.0100, L3100.2300, L500.2500, L3100.5020 ####[facility] [address] [place], [address] Absolute lymphocyte countOrd ered By: Anuj Acevedotanya on 11-10-2024 Lymphocytes Auto (Unsp spec) [#/Vol] 0.90 10*3/uL 0.83-4.51 [facility] Absolute neutrophil countOrd ered By: Anuj Tamayocharles on 11-10-2024 Neutrophils (Bld) [#/Vol] 1.9 10*3/uL Low 2.0-7.7 [facility] Automated lymphocyte count a s percentage of total leukocytesOrdered By: Anujcharles Tubbs on 11-10-2024 Lymphocytes/100 WBC Auto (Unsp spec) 26.6 % 19-41 [facility] Basic Metabolic Profile (BMP )on 11-10-2024 BUN/CRE 21.5 RATIO High 10-20 [facility] Comment on above: Performed By: #### L 3100.5000, L100.0100, L3100.2300, L500.2500, L3100.5020 ####[facility] [address] [place], [address] CA,Total 9.1 mg/dL Normal 8.5-10.1 [facility] Comment on above: Performed By: #### L 3100.5000, L100.0100, L3100.2300, L500.2500, L3100.5020 ####[facility] [address] [place], [address] Chloride [Moles/Vol] 110 mmol/L High 98-107 [facility] Comment on above: Performed By: #### L 3100.5000, L100.0100, L3100.2300, L500.2500, L3100.5020 ####[facility] [address] [place], [address] CO2 [Moles/Vol] 22.0 mmol/L Normal 21.0-32.0 [facility] Comment on above: Performed By: #### L 3100.5000, L100.0100, L3100.2300, L500.2500, L3100.5020 ####[facility] [address] [place], [address] Creatinine [Mass/Vol] 1.07 mg/dL High 0.55-1.02 [facility] Comment on above: Result Comment: The validity of the calculated GFR GFRAA in patients over70 years has not been determined. Clinical correlation isessential. Performed By: #### L 3100.5000, L100.0100, L3100.2300, L500.2500, L3100.5020 ####[facility] [address] [place], [address] ECRCL 54.14 ml/min Normal [facility] Comment on above: Performed By: #### L 3100.5000, L100.0100, L3100.2300, L500.2500, L3100.5020 ####[facility] [address] [place], [address] EST GFR - AA 65 mL/min Normal >60 [facility] Comment on above: Result Comment: Afri can [place]ijani GFR Calc Performed By: #### L 3100.5000, L100.0100, L3100.2300, L500.2500, L3100.5020 ####[facility] [address] [place], [address] GAP 5 Normal 5-15 [facility] Comment on above: Performed By: #### L 3100.5000, L100.0100, L3100.2300, L500.2500, L3100.5020 ####[facility] [address] [place], [address] GFR/1.73 sq M.predicted among non-blacks MDRD (S/P/Bld) [Vol rate/Area] 54 mL/min/{1.73_m2} Low >60 [facility] Comment on above: Result Comment: Non- GFR Calc Performed By: #### L 3100.5000, L100.0100, L3100.2300, L500.2500, L3100.5020 ####[facility] [address] [place], [address] Glucose [Mass/Vol] 142 mg/dL High 74-106 [facility] Comment on above: Result Comment: Fast ing Glucose result greater than or equal to 126 mg/dLsuggests DIABETES MELLITUS per A.D.A. criteria. Performed By: #### L 3100.5000, L100.0100, L3100.2300, L500.2500, L3100.5020 ####[facility] [address] [place], [address] Potassium [Moles/Vol] 4.0 mmol/L Normal 3.5-5.1 [facility] Comment on above: Performed By: #### L 3100.5000, L100.0100, L3100.2300, L500.2500, L3100.5020 ####[facility] [address] [place], [address] Sodium [Moles/Vol] 137 mmol/L Normal 136-145 [facility] Comment on above: Performed By: #### L 3100.5000, L100.0100, L3100.2300, L500.2500, L3100.5020 ####[facility] [address] [place], [address] Urea nitrogen [Mass/Vol] 23 mg/dL High 7-18 [facility] Comment on above: Performed By: #### L 3100.5000, L100.0100, L3100.2300, L500.2500, L3100.5020 ####[facility] [address] [place], [address] Basophil percentageOrdered B y: Anuj Suly on 11-10-2024 Basophils/100 WBC (Bld) 0.3 % 0-1 [facility] Bedside Glucoseon 11-10-2024 FINGERSTICK GLU 159 mg/dL High 74-106 [facility] Comment on above: Result Comment: EDEN GEMENT OF PATIENT CARE PER NURSING PROTOCOL Performed By: #### L 501.080 ####[facility] [address] [place], [address] FINGERSTICK GLU 162 mg/dL High 74-106 [facility] Comment on above: Result Comment: EDEN GEMENT OF PATIENT CARE PER NURSING PROTOCOL Performed By: #### L 501.080 ####[facility] [address] [place], [address] FINGERSTICK GLU 141 mg/dL High 74-106 [facility] Comment on above: Result Comment: EDEN GEMENT OF PATIENT CARE PER NURSING PROTOCOL Performed By: #### L 501.080 ####[facility] [address] [place], [address] Blood urea nitrogen (BUN)/cr eatinine ratioOrdered By: Anuj Tubbs on 11-10-2024 Urea nitrogen/Creatinine [Mass ratio] 21.5 mg/mg High 10-20 [facility] CA 19-9 agOrdered By: Gloria Tubbs on 11-10-2024 CA 19-9 ag 18 U/mL 0-35 [facility] Comment on above: [facility] El ectrochemiluminescence Immunoassay(ECLIA)Values obtained with different assay methods or kits cannotbe used interchangeably. Results cannot be interpreted asabsolute evidence of the presence or absence of malignantdisease. CBC W/Diff, Automatedon 10-18 Anisocytosis Ql (Bld) 2+ Normal [facility] Comment on above: Performed By: #### L 3100.5000, L100.0100, L3100.2300, L500.2500, L3100.5020 ####[facility] [address] [place], [address] PLT EST MOD DEC Normal ADEQ [facility] Comment on above: Performed By: #### L 3100.5000, L100.0100, L3100.2300, L500.2500, L3100.5020 ####[facility] [address] [place], [address] CNPNon 11-10-2024 CNPN Normal [place] Cancer antigen 125 (CA-125) measurementOrdered By: Anuj Tubbs on 11-10-2024 Cancer antigen 125 (CA-125) measurement 120.0 U/mL High 0.0-38.1 [facility] Comment on above: [facility] El ectrochemiluminescence Immunoassay(ECLIA)Values obtained with different assay methods or kits cannotbe used interchangeably. Results cannot be interpreted asabsolute evidence of the presence or absence of malignantdisease.Performed at: [facility] [id number] Director: Sunny Rincon PhD, Phone: [phone] Carbon dioxide measurementOr dered By: Anuj Tubbs on 11-10-2024 CO2 [Moles/Vol] 22.0 mmol/L 21.0-32.0 [facility] Chloride measurementOrdered By: Anuj Tubbs on 11-10-2024 Chloride [Moles/Vol] 110 mmol/L High 98-107 [facility] Discharge Instructionon 10-18 Discharge Instruction Normal [facility] Eosinophil percentageOrdered By: Anuj Tubbs on 11-10-2024 Eosinophils/100 WBC (Bld) 4.1 % 0-5 [facility] Erythrocyte distribution wid th ratioOrdered By: Anuj Tubbs on 11-10-2024 Erythrocyte distribution width (RBC) [Ratio] 20.4 % High 11.6-14.6 [facility] Erythrocyte distribution wid th standard deviationOrdered By: Anuj Tubbs on 11-10-2024 Erythrocyte distribution width (RBC) [Ratio] 63.6 fl High 35.1-43.9 [facility] Glomerular filtration rate ( GFR) estimationOrdered By: Anuj Tubbs on 11-10-2024 GFR/1.73 sq M.predicted among non-blacks MDRD (S/P/Bld) [Vol rate/Area] 54 mL/min/{1.73_m2} Low >60 [facility] Comment on above: Non- GFR Calc Glucose measurementOrdered B y: Anuj Tubbs on 11-10-2024 Glucose [Mass/Vol] 142 mg/dL High 74-106 [facility] Comment on above: Fasting Glucose resu lt greater than or equal to 126 mg/dL suggests DIABETES MELLITUS per A.D.A. criteria. [facility] deOrdered By: Anuj Tubbs on 11-10-2024 Glucose [Mass/Vol] 159 mg/dL High 74-106 [facility] Comment on above: MANAGEMENT OF PATIEN T CARE PER NURSING PROTOCOL Hematocrit Auto (Bld) [Volum e fraction]Ordered By: Anuj Tubbs on 11-10-2024 Hematocrit (Bld) [Volume fraction] 24.5 % Low 37-47 [facility] Hemoglobin measurementOrdere d By: Anuj Tubbs on 11-10-2024 Hemoglobin (Bld) [Mass/Vol] 7.7 g/dL Low 12.0-15.0 [facility] Immature granulocytes/100 WB C Auto (Bld)Ordered By: Anuj Tubbs on 11-10-2024 Immature granulocytes/100 WBC (Bld) 0.600 % 0.0-0.9 [facility] Comment on above: IG% - Immature Granu locytes (promyelocytes, myelocytes and metamyelocytes) > 1% indicates that a LEFT SHIFT is Present. Laboratory - Hematology and Cell countsOrdered By: Anuj Tubbs on 11-10-2024 Anisocytosis Ql (Bld) 2+ [facility] MCV (mean corpuscular volume ) determinationOrdered By: Anuj Tubbs on 11-10-2024 MCV (RBC) [Entitic vol] 89.1 fL 81-99 [facility] Mean corpuscular hemoglobin (MCH) determinationOrdered By: Anuj Tubbs on 11-10-2024 MCH (RBC) [Entitic mass] 28.0 pg 27.0-32.0 [facility] Mean corpuscular hemoglobin concentration (MCHC) determinationOrdered By: Anuj Tubbs on 11-10-2024 MCHC (RBC) [Mass/Vol] 31.4 g/dL Low 32-36 [facility] Mean platelet volume determi nationOrdered By: Anuj Tubbs on 11-10-2024 Platelet mean volume (Bld) [Entitic vol] 10.4 fL 6.2-12.0 [facility] Monocyte percentageOrdered B y: Anuj Tubbs on 11-10-2024 Monocytes/100 WBC (Bld) 11.2 % High 0-10 [facility] Neutrophil percentageOrdered By: Anuj Tubbs on 11-10-2024 Neutrophils/100 WBC (Bld) 57.2 % 47-70 [facility] Nucleated red blood cell per centageOrdered By: Anuj Tubbs on 11-10-2024 Nucleated RBC/100 WBC (Bld) [Ratio] 0 % 0-5 [facility] Platelet countOrdered By: Miranda Tubbs on 11-10-2024 Platelets (Bld) [#/Vol] 86 10*3/uL Low 150-450 [facility] Platelet estimateOrdered By: Anuj Tubbs on 11-10-2024 Platelets LM Ql (Bld) MOD DEC ADEQ [facility] Potassium measurementOrdered By: Anuj Tubbs on 11-10-2024 Potassium [Moles/Vol] 4.0 mmol/L 3.5-5.1 [facility] RBC Auto (Bld) [#/Vol]Ordere d By: Anuj Tubbs on 11-10-2024 RBC (Bld) [#/Vol] 2.75 10*6/uL Low 4.2-5.4 [facility] Serum anion gap measurementO rdered By: Anuj Tubbs on 11-10-2024 Anion gap [Moles/Vol] 5 mmol/L 5-15 [facility] Serum or plasma calcium corina urement (mass/volume)Ordered By: Anuj Tubbs on 11-10-2024 Calcium [Mass/Vol] 9.1 mg/dL 8.5-10.1 [facility] Serum or plasma carcinoembry onic antigen measurement (mass/volume)Ordered By: Anuj Tubbs on 11-10-2024 Carcinoembryonic Ag [Mass/Vol] 1.9 ng/mL 0.0-4.7 [facility] Comment on above: Nonsmokers <3.9 Smok ers <5.6[facility] Electrochemiluminescence Immunoassay(ECLIA)Values obtained with different assay methods or kitscannot be used interchangeably. Results cannot beinterpreted as absolute evidence of the presence orabsence of malignant disease. Serum or plasma creatinine m easurement (mass/volume)Ordered By: Anuj Tubbs on 11-10-2024 Creatinine [Mass/Vol] 1.07 mg/dL High 0.55-1.02 [facility] Comment on above: The validity of the calculated GFR & GFRAA in patients over 70 years has not been determined. Clinical correlation is essential. Serum or plasma urea nitroge n measurement (mass/volume)Ordered By: Anuj Tubbs on 11-10-2024 Urea nitrogen [Mass/Vol] 23 mg/dL High 7-18 [facility] Sodium levelOrdered By: Petar Tubbs on 11-10-2024 Sodium [Moles/Vol] 137 mmol/L 136-145 [facility] White blood cell (WBC) count Ordered By: Anuj Tubbs on 11-10-2024 WBC (Bld) [#/Vol] 3.4 10*3/uL Low 4.4-11.0 [facility] Basic Metabolic Profile (BMP )on 11-09-2024 BUN/CRE 24.1 RATIO High 10-20 [facility] Comment on above: Performed By: #### L 100.0500, L500.2500 ####[facility] [address] [place], [address] CA,Total 8.5 mg/dL Normal 8.5-10.1 [facility] Comment on above: Performed By: #### L 100.0500, L500.2500 ####[facility] [address] [place], [address] Chloride [Moles/Vol] 108 mmol/L High 98-107 [facility] Comment on above: Performed By: #### L 100.0500, L500.2500 ####[facility] [address] [place], [address] CO2 [Moles/Vol] 20.0 mmol/L Low 21.0-32.0 [facility] Comment on above: Performed By: #### L 100.0500, L500.2500 ####[facility] [address] [place], [address] Creatinine [Mass/Vol] 1.12 mg/dL High 0.55-1.02 [facility] Comment on above: Result Comment: The validity of the calculated GFR GFRAA in patients over70 years has not been determined. Clinical correlation isessential. Performed By: #### L 100.0500, L500.2500 ####[facility] [address] [place], [address] ECRCL 51.72 ml/min Normal [facility] Comment on above: Performed By: #### L 100.0500, L500.2500 ####[facility] [address] [place], [address] EST GFR - AA 62 mL/min Normal >60 [facility] Comment on above: Result Comment: Afri can Azerbaijani GFR Calc Performed By: #### L 100.0500, L500.2500 ####[facility] [address] [place], [address] GAP 9 Normal 5-15 [facility] Comment on above: Performed By: #### L 100.0500, L500.2500 ####[facility] [address] [place], [address] GFR/1.73 sq M.predicted among non-blacks MDRD (S/P/Bld) [Vol rate/Area] 51 mL/min/{1.73_m2} Low >60 [facility] Comment on above: Result Comment: Non- GFR Calc Performed By: #### L 100.0500, L500.2500 ####[facility] [address] [place], [address] Glucose [Mass/Vol] 145 mg/dL High 74-106 [facility] Comment on above: Result Comment: Fast ing Glucose result greater than or equal to 126 mg/dLsuggests DIABETES MELLITUS per A.D.A. criteria. Performed By: #### L 100.0500, L500.2500 ####[facility] [address] [place], [address] Potassium [Moles/Vol] 4.0 mmol/L Normal 3.5-5.1 [facility] Comment on above: Performed By: #### L 100.0500, L500.2500 ####[facility] [address] [place], [address] Sodium [Moles/Vol] 137 mmol/L Normal 136-145 [facility] Comment on above: Performed By: #### L 100.0500, L500.2500 ####[facility] [address] [place], [address] Urea nitrogen [Mass/Vol] 27 mg/dL High 7-18 [facility] Comment on above: Performed By: #### L 100.0500, L500.2500 ####[facility] [address] [place], [address] Bedside Glucoseon 11-09-2024 FINGERSTICK GLU 220 mg/dL High 74-106 [facility] Comment on above: Result Comment: EDEN GEMENT OF PATIENT CARE PER NURSING PROTOCOL Performed By: #### L 501.080 ####[facility] [address] [place], [address] FINGERSTICK GLU 135 mg/dL High 74-106 [facility] Comment on above: Result Comment: EDEN GEMENT OF PATIENT CARE PER NURSING PROTOCOL Performed By: #### L 501.080 ####[facility] [address] [place], [address] CBC W/Diff, Automatedon 10-18 PATH REV Reviewed Normal [facility] Comment on above: Result Comment: KELLEE RE Normocytic anemia.Clinical correlation necessary.Aftab Hammonds M.D. 11/09/24 AMENDED REPORT 11/09/24 1407 PATH REV previously reported as: January Performed By: #### L 300.4310, L100.0100, L300.3900, L500.4050 ####[facility] [address] [place], [address] CBC-Complete Blood Cnt No Di ffon 11-09-2024 Erythrocyte distribution width (RBC) [Ratio] 20.2 % High 11.6-14.6 [facility] Comment on above: Performed By: #### L 100.0500, L500.2500 ####[facility] [address] [place], [address] Hematocrit (Bld) [Volume fraction] 24.4 % Low 37-47 [facility] Comment on above: Performed By: #### L 100.0500, L500.2500 ####[facility] [address] [place], [address] Hemoglobin (Bld) [Mass/Vol] 7.8 g/dL Low 12.0-15.0 [facility] Comment on above: Performed By: #### L 100.0500, L500.2500 ####[facility] [address] [place], [address] MCH (RBC) [Entitic mass] 28.2 pg Normal 27.0-32.0 [facility] Comment on above: Performed By: #### L 100.0500, L500.2500 ####[facility] [address] [place], [address] MCHC (RBC) [Mass/Vol] 32.0 g/dL Normal 32-36 [facility] Comment on above: Performed By: #### L 100.0500, L500.2500 ####[facility] [address] [place], [address] MCV (RBC) [Entitic vol] 88.1 fL Normal 81-99 [facility] Comment on above: Performed By: #### L 100.0500, L500.2500 ####[facility] [address] [place], [address] Platelet mean volume (Bld) [Entitic vol] 11.0 fL Normal 6.2-12.0 [facility] Comment on above: Performed By: #### L 100.0500, L500.2500 ####[facility] [address] [place], [address] Platelets (Bld) [#/Vol] 88 10*3/uL Low 150-450 [facility] Comment on above: Performed By: #### L 100.0500, L500.2500 ####[facility] [address] [place], [address] RBC (Bld) [#/Vol] 2.77 10*6/uL Low 4.2-5.4 [facility] Comment on above: Performed By: #### L 100.0500, L500.2500 ####[facility] [address] [place], [address] RDW SD 61.6 fl High 35.1-43.9 [facility] Comment on above: Performed By: #### L 100.0500, L500.2500 ####[facility] [address] [place], [address] WBC (Bld) [#/Vol] 4.9 10*3/uL Normal 4.4-11.0 [facility] Comment on above: Performed By: #### L 100.0500, L500.2500 ####[facility] [address] [place], [address] CNPNon 11-09-2024 CNPN Normal [place] EGD Reporton 11-09-2024 EGD Report Normal [facility] MR/POSTOP.ANEon 11-09-2024 MR/POSTOP.ANE Normal [facility] MR/EXLOQPRE6fr 11-09-2024 MR/POSTOPAN2 Normal [facility] Activated partial thrombopla stin time (aPTT) in platelet poor plasma by coagulation aOrdered By: Leonard Roy on 11-08-2024 aPTT Coag (PPP) [Time] 25.2 s 24.1-36.2 [facility] Albumin to globulin ratioOrd ered By: Leonard Roy on 11-08-2024 Albumin/Globulin [Mass ratio] 1.1 {ratio} 0.9-2.4 [facility] Basic Metabolic Profile (BMP )on 11-08-2024 BUN/CRE 32.1 RATIO High 10-20 [facility] Comment on above: Order Comment: pre-p rocedure Performed By: #### L 501.5200, L500.4050, L500.2500, L501.9520, L100.0500 ####[facility] [address] [place], [address] CA,Total 8.5 mg/dL Normal 8.5-10.1 [facility] Comment on above: Order Comment: pre-p rocedure Performed By: #### L 501.5200, L500.4050, L500.2500, L501.9520, L100.0500 ####[facility] [address] [place], [address] Chloride [Moles/Vol] 116 mmol/L High 98-107 [facility] Comment on above: Order Comment: pre-p rocedure Performed By: #### L 501.5200, L500.4050, L500.2500, L501.9520, L100.0500 ####[facility] [address] [place], [address] CO2 [Moles/Vol] 17.0 mmol/L Low 21.0-32.0 [facility] Comment on above: Order Comment: pre-p rocedure Performed By: #### L 501.5200, L500.4050, L500.2500, L501.9520, L100.0500 ####[facility] [address] [place], [address] Creatinine [Mass/Vol] 1.09 mg/dL High 0.55-1.02 [facility] Comment on above: Order Comment: pre-p rocedure Result Comment: The validity of the calculated GFR GFRAA in patients over70 years has not been determined. Clinical correlation isessential. Performed By: #### L 501.5200, L500.4050, L500.2500, L501.9520, L100.0500 ####[facility] [address] [place], [address] ECRCL 53.24 ml/min Normal [facility] Comment on above: Order Comment: pre-p rocedure Performed By: #### L 501.5200, L500.4050, L500.2500, L501.9520, L100.0500 ####[facility] [address] [place], [address] EST GFR - AA 64 mL/min Normal >60 [facility] Comment on above: Order Comment: pre-p rocedure Result Comment: Afri can [place]ij[place] GFR Calc Performed By: #### L 501.5200, L500.4050, L500.2500, L501.9520, L100.0500 ####[facility] [address] [place], [address] GAP 6 Normal 5-15 [facility] Comment on above: Order Comment: pre-p rocedure Performed By: #### L 501.5200, L500.4050, L500.2500, L501.9520, L100.0500 ####[facility] [address] [place], [address] GFR/1.73 sq M.predicted among non-blacks MDRD (S/P/Bld) [Vol rate/Area] 53 mL/min/{1.73_m2} Low >60 [facility] Comment on above: Order Comment: pre-p rocedure Result Comment: Non- GFR Calc Performed By: #### L 501.5200, L500.4050, L500.2500, L501.9520, L100.0500 ####[facility] [address] [place], [address] Glucose [Mass/Vol] 173 mg/dL High 74-106 [facility] Comment on above: Order Comment: pre-p rocedure Result Comment: Fast ing Glucose result greater than or equal to 126 mg/dLsuggests DIABETES MELLITUS per A.D.A. criteria. Performed By: #### L 501.5200, L500.4050, L500.2500, L501.9520, L100.0500 ####[facility] [address] [place], [address] Potassium [Moles/Vol] 4.3 mmol/L Normal 3.5-5.1 [facility] Comment on above: Order Comment: pre-p rocedure Performed By: #### L 501.5200, L500.4050, L500.2500, L501.9520, L100.0500 ####[facility] [address] [place], [address] Sodium [Moles/Vol] 140 mmol/L Normal 136-145 [facility] Comment on above: Order Comment: pre-p rocedure Performed By: #### L 501.5200, L500.4050, L500.2500, L501.9520, L100.0500 ####[facility] [address] [place], [address] Urea nitrogen [Mass/Vol] 35 mg/dL High 7-18 [facility] Comment on above: Order Comment: pre-p rocedure Performed By: #### L 501.5200, L500.4050, L500.2500, L501.9520, L100.0500 ####[facility] [address] [place], [address] Bedside Glucoseon 11-08-2024 FINGERSTICK GLU 239 mg/dL High 74-106 [facility] Comment on above: Result Comment: EDEN GEMENT OF PATIENT CARE PER NURSING PROTOCOL Performed By: #### L 501.080 ####[facility] [address] [place], [address] FINGERSTICK GLU 220 mg/dL High 74-106 [facility] Comment on above: Result Comment: EDEN GEMENT OF PATIENT CARE PER NURSING PROTOCOL Performed By: #### L 501.080 ####[facility] [address] [place], [address] FINGERSTICK GLU 289 mg/dL High 74-106 [facility] Comment on above: Result Comment: EDEN GEMENT OF PATIENT CARE PER NURSING PROTOCOL Performed By: #### L 501.080 ####[facility] [address] [place], [address] FINGERSTICK GLU 161 mg/dL High 74-106 [facility] Comment on above: Result Comment: EDEN GEMENT OF PATIENT CARE PER NURSING PROTOCOL Performed By: #### L 501.080 ####[facility] [address] [place], [address] Bilirubin, totalOrdered By: Leonard Roy on 11-08-2024 Bilirubin [Mass/Vol] 1.80 mg/dL High 0.20-1.00 [facility] Comment on above: For patients on eltr ombopag therapy, use of Dimension Bronson TBIL is not recommended. CBC-Complete Blood Cnt No Di ffon 11-08-2024 Erythrocyte distribution width (RBC) [Ratio] 19.9 % High 11.6-14.6 [facility] Comment on above: Performed By: #### L 501.5200, L500.4050, L500.2500, L501.9520, L100.0500 ####[facility] [address] [place], [address] Hematocrit (Bld) [Volume fraction] 24.4 % Low 37-47 [facility] Comment on above: Performed By: #### L 501.5200, L500.4050, L500.2500, L501.9520, L100.0500 ####[facility] [address] [place], [address] Hemoglobin (Bld) [Mass/Vol] 7.6 g/dL Low 12.0-15.0 [facility] Comment on above: Performed By: #### L 501.5200, L500.4050, L500.2500, L501.9520, L100.0500 ####[facility] [address] [place], [address] MCH (RBC) [Entitic mass] 27.3 pg Normal 27.0-32.0 [facility] Comment on above: Performed By: #### L 501.5200, L500.4050, L500.2500, L501.9520, L100.0500 ####[facility] [address] [place], [address] MCHC (RBC) [Mass/Vol] 31.1 g/dL Low 32-36 [facility] Comment on above: Performed By: #### L 501.5200, L500.4050, L500.2500, L501.9520, L100.0500 ####[facility] [address] [place], [address] MCV (RBC) [Entitic vol] 87.8 fL Normal 81-99 [facility] Comment on above: Performed By: #### L 501.5200, L500.4050, L500.2500, L501.9520, L100.0500 ####[facility] [address] [place], [address] Platelet mean volume (Bld) [Entitic vol] 10.6 fL Normal 6.2-12.0 [facility] Comment on above: Performed By: #### L 501.5200, L500.4050, L500.2500, L501.9520, L100.0500 ####[facility] [address] [place], [address] Platelets (Bld) [#/Vol] 113 10*3/uL Low 150-450 [facility] Comment on above: Performed By: #### L 501.5200, L500.4050, L500.2500, L501.9520, L100.0500 ####[facility] [address] [place], [address] RBC (Bld) [#/Vol] 2.78 10*6/uL Low 4.2-5.4 [facility] Comment on above: Performed By: #### L 501.5200, L500.4050, L500.2500, L501.9520, L100.0500 ####[facility] [address] [place], [address] RDW SD 60.3 fl High 35.1-43.9 [facility] Comment on above: Performed By: #### L 501.5200, L500.4050, L500.2500, L501.9520, L100.0500 ####[facility] [address] [place], [address] WBC (Bld) [#/Vol] 6.2 10*3/uL Normal 4.4-11.0 [facility] Comment on above: Performed By: #### L 501.5200, L500.4050, L500.2500, L501.9520, L100.0500 ####[facility] [address] [place], [address] Comprehensive Metabolic Prof ilon 11-08-2024 Albumin [Mass/Vol] 2.5 g/dL Low 3.2-5.0 [facility] Comment on above: Order Comment: pre-p rocedure Performed By: #### L 501.5200, L500.4050, L500.2500, L501.9520, L100.0500 ####[facility] [address] [place], [address] Albumin/Globulin [Mass ratio] 1.1 {ratio} Normal 0.9-2.4 [facility] Comment on above: Order Comment: pre-p rocedure Performed By: #### L 501.5200, L500.4050, L500.2500, L501.9520, L100.0500 ####[facility] [address] [place], [address] ALK P 91 U/L Normal 45-117 [facility] Comment on above: Order Comment: pre-p rocedure Performed By: #### L 501.5200, L500.4050, L500.2500, L501.9520, L100.0500 ####[facility] [address] [place], [address] ALT [Catalytic activity/Vol] 19 U/L Normal 13-56 [facility] Comment on above: Order Comment: pre-p rocedure Performed By: #### L 501.5200, L500.4050, L500.2500, L501.9520, L100.0500 ####[facility] [address] [place], [address] AST [Catalytic activity/Vol] 14 U/L Low 15-37 [facility] Comment on above: Order Comment: pre-p rocedure Performed By: #### L 501.5200, L500.4050, L500.2500, L501.9520, L100.0500 ####[facility] [address] [place], [address] Bilirubin [Mass/Vol] 1.80 mg/dL High 0.20-1.00 [facility] Comment on above: Order Comment: pre-p rocedure Result Comment: For patients on eltrombopag therapy, use of Dimension Bronson TBIL is not recommended. Performed By: #### L 501.5200, L500.4050, L500.2500, L501.9520, L100.0500 ####[facility] [address] [place], [address] Globulin (S) [Mass/Vol] 2.2 g/dL Normal 2.2-4.2 [facility] Comment on above: Order Comment: pre-p rocedure Performed By: #### L 501.5200, L500.4050, L500.2500, L501.9520, L100.0500 ####[facility] [address] [place], [address] T PROT 4.7 g/dL Low 6.4-8.2 [facility] Comment on above: Order Comment: pre-p rocedure Performed By: #### L 501.5200, L500.4050, L500.2500, L501.9520, L100.0500 ####[facility] [address] [place], [address] International normalized rat io (INR) calculationOrdered By: Leonard Roy on 11-08-2024 INR Coag (Bld) [Relative time] 1.2 {INR} [facility] Laboratory - Chemistry and C hemistry - challengeOrdered By: Leonard Roy on 11-08-2024 AST [Catalytic activity/Vol] 14 U/L Low 15-37 [facility] Magnesiumon 11-08-2024 Magnesium [Mass/Vol] 2.0 mg/dL Normal 1.6-2.6 [facility] Comment on above: Performed By: #### L 501.5200, L500.4050, L500.2500, L501.9520, L100.0500 ####[facility] [address] [place], [address] Magnesium measurementOrdered By: Leonard Roy on 11-08-2024 Magnesium [Mass/Vol] 2.0 mg/dL 1.6-2.6 [facility] Partial Thromboplast Timeon 11-08-2024 aPTT Coag (Bld) [Time] 25.2 s Normal 24.1-36.2 [facility] Comment on above: Performed By: #### L 300.3900, L501.2300, L300.4310 ####[facility] [address] [place], [address] Phosphoruson 11-08-2024 Phosphate [Mass/Vol] 2.4 mg/dL Low 2.5-4.9 [facility] Comment on above: Performed By: #### L 300.3900, L501.2300, L300.4310 ####[facility] [address] [place], [address] Prothrombin Time w/INRon INR Coag (PPP) [Relative time] 1.2 {INR} Normal [facility] Comment on above: Performed By: #### L 300.3900, L501.2300, L300.4310 ####[facility] [address] [place], [address] PT Coag (PPP) [Time] 15.4 s High 11.7-14.9 [facility] Comment on above: Performed By: #### L 300.3900, L501.2300, L300.4310 ####[facility] [address] [place], [address] Prothrombin timeOrdered By: Leonard Roy on 11-08-2024 PT Coag (PPP) [Time] 15.4 s High 11.7-14.9 [facility] Serum globulin measurementOr dered By: Leonard Roy on 11-08-2024 Globulin (S) [Mass/Vol] 2.2 g/dL 2.2-4.2 [facility] Serum or plasma alanine bridges otransferase (ALT) measurementOrdered By: Leonard Roy on 11-08-2024 ALT [Catalytic activity/Vol] 19 U/L 13-56 [facility] Serum or plasma albumin corina urement (mass/volume)Ordered By: Leonard Roy on 11-08-2024 Albumin [Mass/Vol] 2.5 g/dL Low 3.2-5.0 [facility] Serum or plasma alkaline radha sphatase measurementOrdered By: Leonard Roy on 11-08-2024 ALP [Catalytic activity/Vol] 91 U/L 45-117 [facility] Serum or plasma thyroid stim ulating hormone (TSH) measurement (units/volume)Ordered By: Leonard Roy on 11-08-2024 TSH Qn 2.420 uIU/mL 0.358-3.74 0 [facility] Thyroid Stim Hormone (TSH)on 11-08-2024 TSH 2.420 uIU/mL Normal 0.358-3.74 0 [facility] Comment on above: Performed By: #### L 501.5200, L500.4050, L500.2500, L501.9520, L100.0500 ####[facility] [address] [place], [place], [address] Total proteinOrdered By: Ambika Roy on 11-08-2024 Protein [Mass/Vol] 4.7 g/dL Low 6.4-8.2 [facility] 12 Lead EKGon 11-07-2024 12 Lead EKG Normal [facility] Abdomen/Pelvis without Conto n 11-07-2024 Abdomen/Pelvis without Cont Normal [facility] BRCon 11-07-2024 RC Normal [facility] Comment on above: Result Comment: [id number] AN RC TRANSFUSED 11/07/242238 Performed By: #### B RC ####[facility] [address] [place], [address] Result Comment: [id number] AP RC TRANSFUSED 11/07/24 [id number] AP RC TRANSFUSED 11/07/24 1505 Bedside Glucoseon 11-07-2024 FINGERSTICK GLU 233 mg/dL High 74-106 [facility] Comment on above: Result Comment: EDEN ANDRADE OF PATIENT CARE PER NURSING PROTOCOL Performed By: #### L 501.080 ####[facility] [address] [place], [address] Bite cells detectionOrdered By: Nasir Flanagan on 11-07-2024 Bite cells LM Ql (Bld) 1+ [facility] Blood polychromasia detectio n by light microscopyOrdered By: Nasir Flanagan on 11-07-2024 Polychromasia LM Ql (Bld) 1+ [facility] Comprehensive Metabolic Prof ilon 11-07-2024 Albumin [Mass/Vol] 2.5 g/dL Low 3.2-5.0 [facility] Comment on above: Performed By: #### L 300.4310, L100.0100, L300.3900, L500.4050 ####[facility] [address] [place], [address] Albumin/Globulin [Mass ratio] 1.0 {ratio} Normal 0.9-2.4 [facility] Comment on above: Performed By: #### L 300.4310, L100.0100, L300.3900, L500.4050 ####[facility] [address] [place], [address] ALK P 95 U/L Normal 45-117 [facility] Comment on above: Performed By: #### L 300.4310, L100.0100, L300.3900, L500.4050 ####[facility] [address] [place], [address] ALT [Catalytic activity/Vol] 20 U/L Normal 13-56 [facility] Comment on above: Performed By: #### L 300.4310, L100.0100, L300.3900, L500.4050 ####[facility] [address] [place], [address] AST [Catalytic activity/Vol] 9 U/L Low 15-37 [facility] Comment on above: Performed By: #### L 300.4310, L100.0100, L300.3900, L500.4050 ####[facility] [address] [place], [address] Bilirubin [Mass/Vol] 0.80 mg/dL Normal 0.20-1.00 [facility] Comment on above: Result Comment: For patients on eltrombopag therapy, use of Dimension Bronson TBIL is not recommended. Performed By: #### L 300.4310, L100.0100, L300.3900, L500.4050 ####[facility] [address] [place], [address] BUN/CRE 39.5 RATIO High 10-20 [facility] Comment on above: Performed By: #### L 300.4310, L100.0100, L300.3900, L500.4050 ####[facility] [address] [place], [address] CA,Total 8.9 mg/dL Normal 8.5-10.1 [facility] Comment on above: Performed By: #### L 300.4310, L100.0100, L300.3900, L500.4050 ####[facility] [address] [place], [address] Chloride [Moles/Vol] 109 mmol/L High 98-107 [facility] Comment on above: Performed By: #### L 300.4310, L100.0100, L300.3900, L500.4050 ####[facility] [address] [place], [address] CO2 [Moles/Vol] 16.0 mmol/L Low 21.0-32.0 [facility] Comment on above: Performed By: #### L 300.4310, L100.0100, L300.3900, L500.4050 ####[facility] [address] [place], [address] Creatinine [Mass/Vol] 1.24 mg/dL High 0.55-1.02 [facility] Comment on above: Result Comment: The validity of the calculated GFR GFRAA in patients over70 years has not been determined. Clinical correlation isessential. Performed By: #### L 300.4310, L100.0100, L300.3900, L500.4050 ####[facility] [address] [place], [address] ECRCL 46.18 ml/min Normal [facility] Comment on above: Performed By: #### L 300.4310, L100.0100, L300.3900, L500.4050 ####[facility] [address] [place], [address] EST GFR - AA 55 mL/min Low >60 [facility] Comment on above: Result Comment: Afri can Azerbaijani GFR Calc Performed By: #### L 300.4310, L100.0100, L300.3900, L500.4050 ####[facility] [address] [place], [address] GAP 11 Normal 5-15 [facility] Comment on above: Performed By: #### L 300.4310, L100.0100, L300.3900, L500.4050 ####[facility] [address] [place], [address] GFR/1.73 sq M.predicted among non-blacks MDRD (S/P/Bld) [Vol rate/Area] 45 mL/min/{1.73_m2} Low >60 [facility] Comment on above: Result Comment: Non- GFR Calc Performed By: #### L 300.4310, L100.0100, L300.3900, L500.4050 ####[facility] [address] [place], [address] Globulin (S) [Mass/Vol] 2.4 g/dL Normal 2.2-4.2 [facility] Comment on above: Performed By: #### L 300.4310, L100.0100, L300.3900, L500.4050 ####[facility] [address] [place], [address] Glucose [Mass/Vol] 282 mg/dL High 74-106 [facility] Comment on above: Result Comment: Gluc ose result greater than or equal to 200 mg/dLsuggests DIABETES MELLITUS per A.D.A. criteria. Performed By: #### L 300.4310, L100.0100, L300.3900, L500.4050 ####[facility] [address] [place], [address] Potassium [Moles/Vol] 4.3 mmol/L Normal 3.5-5.1 [facility] Comment on above: Performed By: #### L 300.4310, L100.0100, L300.3900, L500.4050 ####[facility] [address] [place], [address] Sodium [Moles/Vol] 136 mmol/L Normal 136-145 [facility] Comment on above: Performed By: #### L 300.4310, L100.0100, L300.3900, L500.4050 ####[facility] [address] [place], [address] T PROT 4.9 g/dL Low 6.4-8.2 [facility] Comment on above: Performed By: #### L 300.4310, L100.0100, L300.3900, L500.4050 ####[facility] [address] [place], [address] Urea nitrogen [Mass/Vol] 49 mg/dL High 7-18 [facility] Comment on above: Performed By: #### L 300.4310, L100.0100, L300.3900, L500.4050 ####[facility] [address] [place], [address] Emergency Department Summary on 11-07-2024 Emergency Department Summary Normal [facility] H AND P Exam - Hospitaliston 11-07-2024 H&P Exam - Hospitalist Normal [facility] Hemoglobinon 11-07-2024 Hemoglobin (Bld) [Mass/Vol] 6.6 g/dL Low 12.0-15.0 [facility] Comment on above: Order Comment: Comme nts: please check @ 1846 1 hr post transfusion Performed By: #### L 100.1300 ####[facility] [address] [place], [address] MR/CON.PCM.GIon 11-07-2024 MR/CON.PCM.GI Normal [facility] Ovalocyte detectionOrdered B y: Nasir Kirbynoe on 11-07-2024 Ovalocytes LM Ql (Bld) 1+ [facility] Partial Thromboplast Timeon 11-07-2024 aPTT Coag (Bld) [Time] 24.1 s Normal 24.1-36.2 [facility] Comment on above: Performed By: #### L 300.4310, L100.0100, L300.3900, L500.4050 ####[facility] [address] [place], [address] Prothrombin Time w/INRon INR Coag (PPP) [Relative time] 1.3 {INR} Normal [facility] Comment on above: Performed By: #### L 300.4310, L100.0100, L300.3900, L500.4050 ####[facility] [address] [place], [address] PT Coag (PPP) [Time] 16.6 s High 11.7-14.9 [facility] Comment on above: Performed By: #### L 300.4310, L100.0100, L300.3900, L500.4050 ####[facility] [address] [place], [address] Review by pathologistOrdered By: Nasir Flanagan on 11-07-2024 Pathologist review Bill (Unsp spec) [Interp] Reviewed [facility] Comment on above: Previous reported re sult: Mayra blood Edited by: LENORA on 11/09/24:1407SEVERE Normocytic anemia.Clinical correlation necessary.Aftab Hammonds M.D. 11/09/24 AMENDED REPORT 11/09/24 1407 PATH REV previously reported as: Mayra blood Teardrop cell detectionOrder ed By: Nasir Flanagan on 11-07-2024 Dacrocytes LM Ql (Bld) 1+ [facility] Type AND Screenon 11-07-2024 Ab SCREEN GEL Negative Normal [facility] Comment on above: Order Comment: Order Date: 11/07/24Has pt arrived? YA Performed By: #### B TS ####[facility] [address] [place], [address] ABO and Rh group Nom (Bld) Blood group A Rh(D) positive Normal [facility] Comment on above: Order Comment: Order Date: 11/07/24Has pt arrived? YA Performed By: #### B TS ####[facility] [address] [place], [address] Urinalysis, Completeon 11-07 BACTERIA Normal None Seen [facility] Comment on above: Order Comment: COLLE CTOR TO SPECIFY Result Comment: ZHANNA ENT DISCHARGED, DID NOT RECEIVE SPECIMEN Performed By: #### L 400.0001 ####[facility] [address] [place], [address] BILIRUBIN URINE Normal Negative [facility] Comment on above: Order Comment: COLLE CTOR TO SPECIFY Result Comment: ZHANNA ENT DISCHARGED, DID NOT RECEIVE SPECIMEN Performed By: #### L 400.0001 ####[facility] [address] [place], [address] Clarity (U) Normal Clear [facility] Comment on above: Order Comment: COLLE CTOR TO SPECIFY Result Comment: ZHANNA ENT DISCHARGED, DID NOT RECEIVE SPECIMEN Performed By: #### L 400.0001 ####[facility] [address] [place], [address] Color (U) Normal Yellow [facility] Comment on above: Order Comment: COLLE CTOR TO SPECIFY Result Comment: ZHANNA ENT DISCHARGED, DID NOT RECEIVE SPECIMEN Performed By: #### L 400.0001 ####[facility] [address] [place], [address] EPI,SQUAMOUS Normal 5-10 [facility] Comment on above: Order Comment: COLLE CTOR TO SPECIFY Result Comment: ZHANNA ENT DISCHARGED, DID NOT RECEIVE SPECIMEN Performed By: #### L 400.0001 ####[facility] [address] [place], [address] GLUCOSE, UR Normal Normal [facility] Comment on above: Order Comment: COLLE CTOR TO SPECIFY Result Comment: ZHANNA ENT DISCHARGED, DID NOT RECEIVE SPECIMEN Performed By: #### L 400.0001 ####[facility] [address] [place], [address] KETONE UR Normal Negative [facility] Comment on above: Order Comment: COLLE CTOR TO SPECIFY Result Comment: ZHANNA ENT DISCHARGED, DID NOT RECEIVE SPECIMEN Performed By: #### L 400.0001 ####[facility] [address] [place], [address] LEUK ESTERASE Normal Negative [facility] Comment on above: Order Comment: COLLE CTOR TO SPECIFY Result Comment: ZHANNA ENT DISCHARGED, DID NOT RECEIVE SPECIMEN Performed By: #### L 400.0001 ####[facility] [address] [place], [address] Mucus Ql (Urine sed) Normal [facility] Comment on above: Order Comment: COLLE CTOR TO SPECIFY Result Comment: ZHANNA ENT DISCHARGED, DID NOT RECEIVE SPECIMEN Performed By: #### L 400.0001 ####[facility] [address] [place], [address] Nitrite Ql (U) Normal Negative [facility] Comment on above: Order Comment: COLLE CTOR TO SPECIFY Result Comment: ZHANNA ENT DISCHARGED, DID NOT RECEIVE SPECIMEN Performed By: #### L 400.0001 ####[facility] [address] [place], [address] OCCULT BLOOD-UR Normal Negative [facility] Comment on above: Order Comment: COLLE CTOR TO SPECIFY Result Comment: ZHANNA ENT DISCHARGED, DID NOT RECEIVE SPECIMEN Performed By: #### L 400.0001 ####[facility] [address] [place], [address] pH UR Normal 5.0 - 8.0 [facility] Comment on above: Order Comment: COLLE CTOR TO SPECIFY Result Comment: ZHANNA ENT DISCHARGED, DID NOT RECEIVE SPECIMEN Performed By: #### L 400.0001 ####[facility] [address] [place], [address] PROT DIPSTX Normal Negative [facility] Comment on above: Order Comment: COLLE CTOR TO SPECIFY Result Comment: ZHANNA ENT DISCHARGED, DID NOT RECEIVE SPECIMEN Performed By: #### L 400.0001 ####[facility] [address] [place], [address] RBC Normal 0-5 [facility] Comment on above: Order Comment: COLLE CTOR TO SPECIFY Result Comment: ZHANNA ENT DISCHARGED, DID NOT RECEIVE SPECIMEN Performed By: #### L 400.0001 ####[facility] [address] [place], [address] SP.GR. DIPSTX Normal 1.002-1.03 0 [facility] Comment on above: Order Comment: COLLE CTOR TO SPECIFY Result Comment: ZHANNA ENT DISCHARGED, DID NOT RECEIVE SPECIMEN Performed By: #### L 400.0001 ####[facility] [address] [place], [address] UR Preservative Normal [facility] Comment on above: Order Comment: COLLE CTOR TO SPECIFY Result Comment: ZHANNA ENT DISCHARGED, DID NOT RECEIVE SPECIMEN Performed By: #### L 400.0001 ####[facility] [address] [place], [address] UROBILI Normal Normal [facility] Comment on above: Order Comment: COLLE CTOR TO SPECIFY Result Comment: ZHANNA ENT DISCHARGED, DID NOT RECEIVE SPECIMEN Performed By: #### L 400.0001 ####[facility] [address] [place], [address] WBC Normal 0-5 [facility] Comment on above: Order Comment: COLLE CTOR TO SPECIFY Result Comment: ZHANNA ENT DISCHARGED, DID NOT RECEIVE SPECIMEN Performed By: #### L 400.0001 ####[facility] [address] [place], [address] CNPNon 11-04-2024 CNPN Normal [place] CBC W Auto Differential pane l (Bld)on 11-03-2024 Basophils (Bld) [#/Vol] 10*3/uL Normal <0.11 [place] Comment on above: Order Comment: Speci men Type: BLOOD SPECIMENOrdering Facility: [facility] Address: [address] [place] [address] Performed By: #### 5 7021-8 ####[facility] [id number] [place] [address] [place] Basophils/100 WBC (Bld) 0.9 % Normal [place] Comment on above: Order Comment: Speci men Type: BLOOD SPECIMENOrdering Facility: [facility] Address: [address] [place] [address] Performed By: #### 5 7021-8 ####[facility] PRIYAVANITA [id number] [place] [address] [place] Differential cell count method Nom (Bld) Auto Normal [place] Comment on above: Order Comment: Speci men Type: BLOOD SPECIMENOrdering Facility: [facility] Address: [address] [place] [address] Performed By: #### 5 7021-8 ####[facility] [id number] [place] [address] [place] Eosinophils (Bld) [#/Vol] 0.09 10*3/uL Normal <0.46 [place] Comment on above: Order Comment: Speci men Type: BLOOD SPECIMENOrdering Facility: [facility] Address: [address] [place] [address] Performed By: #### 5 7021-8 ####[facility] [id number] [place] [address] [place] Eosinophils/100 WBC (Bld) 3.9 % Normal [place] Comment on above: Order Comment: Speci men Type: BLOOD SPECIMENOrdering Facility: [facility] Address: [address] [place] [address] Performed By: #### 5 7021-8 ####[facility] [id number] [place] [address] [place] Erythrocyte distribution width (RBC) [Ratio] 24.0 % High 11.5-15.0 [place] Comment on above: Order Comment: Speci men Type: BLOOD SPECIMENOrdering Facility: [facility] Address: [address] [place] [address] Performed By: #### 5 7021-8 ####[facility]THWAZLIA [id number] [place] [address] [place] Hematocrit (Bld) [Volume fraction] 25.4 % Low 36.0-46.0 [place] Comment on above: Order Comment: Speci men Type: BLOOD SPECIMENOrdering Facility: [facility] Address: [address] [place] [address] Performed By: #### 5 7021-8 ####[facility] [id number] [place] [address] [place] Hemoglobin (Bld) [Mass/Vol] 7.8 g/dL Low 11.5-15.5 [place] Comment on above: Order Comment: Speci men Type: BLOOD SPECIMENOrdering Facility: [facility] Address: [address] [place] [address] Performed By: #### 5 7021-8 ####[facility] [id number] [place] [address] [place] Immature granulocytes (Bld) [#/Vol] 10*3/uL Normal <0.10 [place] Comment on above: Order Comment: Speci men Type: BLOOD SPECIMENOrdering Facility: [facility] Address: [address] [place] [address] Performed By: #### 5 7021-8 ####[facility] [id number] [place] [address] [place] Immature granulocytes/100 WBC (Bld) 0.4 % Normal [place] Comment on above: Order Comment: Speci men Type: BLOOD SPECIMENOrdering Facility: [facility] Address: [address] [place] [address] Performed By: #### 5 7021-8 ####[facility]ITALNCLIA [id number] [place] [address] [place] Lymphocytes (Bld) [#/Vol] 0.52 10*3/uL Low 1.00-4.00 [place] Comment on above: Order Comment: Speci men Type: BLOOD SPECIMENOrdering Facility: [facility] Address: [address] [place] [address] Performed By: #### 5 7021-8 ####[facility] [id number] [place] [address] [place] Lymphocytes/100 WBC (Bld) 22.6 % Normal [place] Comment on above: Order Comment: Speci men Type: BLOOD SPECIMENOrdering Facility: [facility] Address: [address] [place] [address] Performed By: #### 5 7021-8 ####[facility] [id number] [place] [address] [place] MCH (RBC) [Entitic mass] 25.7 pg Low 26.0-34.0 [place] Comment on above: Order Comment: Speci men Type: BLOOD SPECIMENOrdering Facility: [facility] Address: [address] [place] [address] Performed By: #### 5 7021-8 ####[facility] [id number] [place] [address] [place] MCHC (RBC) [Mass/Vol] 30.7 g/dL Normal 30.5-36.0 [facility] Comment on above: Order Comment: Speci men Type: BLOOD SPECIMENOrdering Facility: [facility] Address: [address] [place] [address] Performed By: #### 5 7021-8 ####[facility] [id number] [place] MCV (RBC) [Entitic vol] 83.8 fL Normal 80.0-100.0 [place] Comment on above: Order Comment: Speci men Type: BLOOD SPECIMENOrdering Facility: [facility] Address: [address] [place] [address] Performed By: #### 5 7021-8 ####[facility]ITALALEXANDERA [id number] [place] [address] [place] Monocytes (Bld) [#/Vol] 0.17 10*3/uL Normal <0.87 [place] Comment on above: Order Comment: Speci men Type: BLOOD SPECIMENOrdering Facility: [facility] Address: [address] [place] [address] Performed By: #### 5 7021-8 ####[facility] [id number] [place] [address] [place] Monocytes/100 WBC (Bld) 7.4 % Normal [place] Comment on above: Order Comment: Speci men Type: BLOOD SPECIMENOrdering Facility: [facility] Address: [address] [place] [address] Performed By: #### 5 7021-8 ####[facility] [id number] [place] [address] [place] Neutrophils (Bld) [#/Vol] 1.49 10*3/uL Normal 1.45-7.50 [place] Comment on above: Order Comment: Speci men Type: BLOOD SPECIMENOrdering Facility: [facility] Address: [address] [place] [address] Performed By: #### 5 7021-8 ####[facility] [id number] [place] [address] [place] Neutrophils/100 WBC (Bld) 64.8 % Normal [place] Comment on above: Order Comment: Speci men Type: BLOOD SPECIMENOrdering Facility: [facility] Address: [address] [place] [address] Performed By: #### 5 7021-8 ####[facility] SHOAIBWNCLIA [id number] [place] [address] [place] Nucleated RBC (Bld) [#/Vol] 10*3/uL Normal <0.01 [place] Comment on above: Order Comment: Speci men Type: BLOOD SPECIMENOrdering Facility: [facility] Address: [address] [place] [address] Performed By: #### 5 7021-8 ####[facility] [id number] [place] [address] [place] Nucleated RBC/100 WBC (Bld) [Ratio] 0.0 /100 WBC Normal [place] Comment on above: Order Comment: Speci men Type: BLOOD SPECIMENOrdering Facility: [facility] Address: [address] [place] [address] Performed By: #### 5 7021-8 ####[facility] [id number] [place] [address] [place] Platelet mean volume (Bld) [Entitic vol] 10.1 fL Normal 9.0-12.7 [place] Comment on above: Order Comment: Speci men Type: BLOOD SPECIMENOrdering Facility: [facility] Address: [address] [place] [address] Performed By: #### 5 7021-8 ####[facility] HOSPITALPRISCILLA [id number] [place] [address] [place] Platelets (Bld) [#/Vol] 78 10*3/uL Low 150-400 [place] Comment on above: Order Comment: Speci men Type: BLOOD SPECIMENOrdering Facility: [facility] Address: [address] [place] [address] Result Comment: No c lot detected. Performed By: #### 5 7021-8 ####[facility] COMMUN[facility] HOSPITALNCLINoe [id number] [place] [address] [place] RBC (Bld) [#/Vol] 3.03 10*6/uL Low 3.90-5.20 [facility] Comment on above: Order Comment: Speci men Type: BLOOD SPECIMENOrdering Facility: [facility] Address: [address] [place] [address] Performed By: #### 5 7021-8 ####[facility] COMMUN[facility] HOSPITALNCA [id number] [place] [address] [place] WBC (Bld) [#/Vol] 2.30 10*3/uL Low 3.70-11.00 [facility] Comment on above: Order Comment: Speci men Type: BLOOD SPECIMENOrdering Facility: [facility] Address: [address] [place] [address] Performed By: #### 5 7021-8 ####[facility] COMMUN[facility] HOSPITALNCA [id number] [place] [address] [place] Ferritin SerPl-ncon 2024 Ferritin [Mass/Vol] 45.0 ng/mL Normal 14.7-205.1 [facility] Comment on above: Order Comment: Speci men Type: BLOOD SPECIMENOrdering Facility: [facility] Address: [address] [place] [address] Performed By: #### 5 0190-8, 6-4 ####[facility] LABORATORYCLIA [id number] [place] [address] [place] Iron and Iron binding capaci ty panelon 11-03-2024 Iron [Mass/Vol] 42 ug/dL Normal 41-186 [place] Comment on above: Order Comment: Speci men Type: BLOOD SPECIMENOrdering Facility: [facility] Address: [address] [place] [address] Performed By: #### 5 0190-8, 6-4 ####TONI LABORATORYCLIA [id number] [place] [id number] [place] Iron binding capacity [Mass/Vol] 362 ug/dL Normal 232-386 [place] Comment on above: Order Comment: Speci men Type: BLOOD SPECIMENOrdering Facility: [facility] Address: [address] [place], [place] [address] Performed By: #### 5 0190-8, 2276-4 ####TONI LABORATORYCLIA [id number] [place] [address] [place] [facility] Iron/TIBC [Molar ratio] 11.6 % Low 20.0-55.0 [place] Comment on above: Order Comment: Speci men Type: BLOOD SPECIMENOrdering Facility: [facility] Address: [address] [place] [address] Performed By: #### 5 0190-8, 2276-4 ####TONI LABORATORYCLIA [id number] [place] [address] [place] [facility] CNCNPATEDon 11-02-2024 CNCNPATED Normal [place] AFP, Tumor Markeron 10-30-19 25 AFP TUMOR CHANI 2.3 ng/mL Normal 0.0-9.2 [facility] Comment on above: Order Comment: N Result Comment: [employer] Electrochemiluminescence Immunoassay(ECLIA)Values obtained with different assay methods or kits cannotbe used interchangeably. Results cannot be interpreted asabsolute evidence of the presence or absence of malignantdisease.This test is not interpretable in females. Performed By: #### L 3300.0700 ####[facility] [id number] [address] [facility] [place], [address] CBC W Auto Differential pane l (Bld)on 10-26-2024 Basophils (Bld) [#/Vol] 10*3/uL Normal <0.11 [place] Comment on above: Order Comment: Speci men Type: BLOOD SPECIMENOrdering Facility: [facility] Address: [address] [place], [place] [address] Performed By: #### 5 7021-8 ####[facility] [id number] [place] [address] [place] Basophils/100 WBC (Bld) 0.4 % Normal [place] Comment on above: Order Comment: Speci men Type: BLOOD SPECIMENOrdering Facility: [facility] Address: [address] [place] [address] Performed By: #### 5 7021-8 ####[facility] [id number] [place] [address] [place] Differential cell count method Nom (Bld) Auto Normal [place] Comment on above: Order Comment: Speci men Type: BLOOD SPECIMENOrdering Facility: [facility] Address: [address] [place] [address] Performed By: #### 5 7021-8 ####[facility] [id number] [place] [address] [place] Eosinophils (Bld) [#/Vol] 0.11 10*3/uL Normal <0.46 [place] Comment on above: Order Comment: Speci men Type: BLOOD SPECIMENOrdering Facility: [facility] Address: [address] [place] [address] Performed By: #### 5 7021-8 ####[facility] [id number] [place] [address] [place] Eosinophils/100 WBC (Bld) 3.9 % Normal [place] Comment on above: Order Comment: Speci men Type: BLOOD SPECIMENOrdering Facility: [facility] Address: [address] [place] [address] Performed By: #### 5 7021-8 ####[facility] [id number] [place] [address] [place] Erythrocyte distribution width (RBC) [Ratio] 26.9 % High 11.5-15.0 [place] Comment on above: Order Comment: Speci men Type: BLOOD SPECIMENOrdering Facility: [facility] Address: [address] [place] [address] Performed By: #### 5 7021-8 ####[facility] PRIYAWNCLIA [id number] [place] [address] [place] Hematocrit (Bld) [Volume fraction] 28.3 % Low 36.0-46.0 [place] Comment on above: Order Comment: Speci men Type: BLOOD SPECIMENOrdering Facility: [facility] Address: [address] [place] [address] Performed By: #### 5 7021-8 ####[facility] MEM[facility] HOSPITALLIA [id number] [place] [address] [place] Hemoglobin (Bld) [Mass/Vol] 8.6 g/dL Low 11.5-15.5 [place] Comment on above: Order Comment: Speci men Type: BLOOD SPECIMENOrdering Facility: [facility] Address: [address] [place] [address] Performed By: #### 5 7021-8 ####[facility] [id number] [place] [address] [place] Immature granulocytes (Bld) [#/Vol] 10*3/uL Normal <0.10 [place] Comment on above: Order Comment: Speci men Type: BLOOD SPECIMENOrdering Facility: [facility] Address: [address] [place] [address] Performed By: #### 5 7021-8 ####COMM[facility] MEM[facility]IAL HOSPITALLIA [id number] [place] [address] [place] Immature granulocytes/100 WBC (Bld) 0.4 % Normal [place] Comment on above: Order Comment: Speci men Type: BLOOD SPECIMENOrdering Facility: [facility] Address: [address] [place] [address] Performed By: #### 5 7021-8 ####[facility] MEM[facility] HOSPITALLIA [id number] [place] [address] [place] Lymphocytes (Bld) [#/Vol] 0.71 10*3/uL Low 1.00-4.00 [place] Comment on above: Order Comment: Speci men Type: BLOOD SPECIMENOrdering Facility: [facility] Address: [address] [place] [address] Performed By: #### 5 7021-8 ####[facility] [id number] [place] [address] [place] Lymphocytes/100 WBC (Bld) 25.1 % Normal [place] Comment on above: Order Comment: Speci men Type: BLOOD SPECIMENOrdering Facility: [facility] Address: [address] [place] [address] Performed By: #### 5 7021-8 ####[facility] HOSPITALNCOGDEN REG[facility] [id number] [place] [address] [place] MCH (RBC) [Entitic mass] 26.0 pg Normal 26.0-34.0 [place] Comment on above: Order Comment: Speci men Type: BLOOD SPECIMENOrdering Facility: [facility] Address: [address] [place] [address] Performed By: #### 5 7021-8 ####[facility] COMM[facility] HOSPITALNCLIA [id number] [place] [address] [place] MCHC (RBC) [Mass/Vol] 30.4 g/dL Low 30.5-36.0 [facility] Comment on above: Order Comment: Speci men Type: BLOOD SPECIMENOrdering Facility: [facility] Address: [address] [place] [address] Performed By: #### 5 7021-8 ####[facility] COMM[facility] HOSPITALNCLIA [id number] [place] [address] [place] MCV (RBC) [Entitic vol] 85.5 fL Normal 80.0-100.0 [place] Comment on above: Order Comment: Speci men Type: BLOOD SPECIMENOrdering Facility: [facility] Address: [address] [place] [address] Performed By: #### 5 7021-8 ####[facility] [id number] [place] [address] [place] Monocytes (Bld) [#/Vol] 0.24 10*3/uL Normal <0.87 [place] Comment on above: Order Comment: Speci men Type: BLOOD SPECIMENOrdering Facility: [facility] Address: [address] [place] [address] Performed By: #### 5 7021-8 ####[facility] [id number] [place] [address] [place] Monocytes/100 WBC (Bld) 8.5 % Normal [place] Comment on above: Order Comment: Speci men Type: BLOOD SPECIMENOrdering Facility: [facility] Address: [address] [place] [address] Performed By: #### 5 7021-8 ####[facility] [id number] [place] [address] [place] Neutrophils (Bld) [#/Vol] 1.75 10*3/uL Normal 1.45-7.50 [place] Comment on above: Order Comment: Speci men Type: BLOOD SPECIMENOrdering Facility: [facility] Address: [address] [place] [address] Performed By: #### 5 7021-8 ####[facility] [id number] [place] [address] [place] Neutrophils/100 WBC (Bld) 61.7 % Normal [place] Comment on above: Order Comment: Speci men Type: BLOOD SPECIMENOrdering Facility: [facility] Address: [address] [place], [place] [address] Performed By: #### 5 7021-8 ####[facility] SOUTHWNCLIA [id number] [place] [address] [place] Nucleated RBC (Bld) [#/Vol] 10*3/uL Normal <0.01 [place] Comment on above: Order Comment: Speci men Type: BLOOD SPECIMENOrdering Facility: [facility] Address: [address] [place] [address] Performed By: #### 5 7021-8 ####[facility] COMMUN[facility] HOSPITALNCLI [id number] [place] [address] [place] Nucleated RBC/100 WBC (Bld) [Ratio] 0.0 /100 WBC Normal [place] Comment on above: Order Comment: Speci men Type: BLOOD SPECIMENOrdering Facility: [facility] Address: [address] [place] [address] Performed By: #### 5 7021-8 ####[facility] HOSPITALNCLIA [id number] [place] [address] [place] Platelet mean volume (Bld) [Entitic vol] 10.9 fL Normal 9.0-12.7 [place] Comment on above: Order Comment: Speci men Type: BLOOD SPECIMENOrdering Facility: [facility] Address: [address] [place] [address] Performed By: #### 5 7021-8 ####[facility] HOSPITALNCLIA [id number] [place] [address] [place] Platelets (Bld) [#/Vol] 92 10*3/uL Low 150-400 [place] Comment on above: Order Comment: Speci men Type: BLOOD SPECIMENOrdering Facility: [facility] Address: [address] [place] [address] Result Comment: No c lot detected. Performed By: #### 5 7021-8 ####[facility] HOSPITALCECILEOGDEN REGIONAL [facility] [id number] [place] [address] [place] RBC (Bld) [#/Vol] 3.31 10*6/uL Low 3.90-5.20 [facility] Comment on above: Order Comment: Speci men Type: BLOOD SPECIMENOrdering Facility: [facility] Address: [address] [place] [address] Performed By: #### 5 7021-8 ####[facility] [id number] [place] [address] [place] WBC (Bld) [#/Vol] 2.83 10*3/uL Low 3.70-11.00 [facility] Comment on above: Order Comment: Speci men Type: BLOOD SPECIMENOrdering Facility: [facility] Address: [address] [place] [address] Performed By: #### 5 7021-8 ####[facility] [id number] [place] [address] [place] CNOVSPon 10-26-2024 CNOVSP Normal [place] CREATININE FINGERSTICKon CREATININE WB < 1.0 Normal 0.55-1.02 [facility] Comment on above: Performed By: #### L 9100.0200 ####[facility] [id number] [place], [place], [address] EGFR WB > 60.0000 Normal >60 [facility] Comment on above: Performed By: #### L 9100.0200 ####[facility] [id number] [place], [place], [address] EGFROrdered By: Ronald Del Toro nd on 10-22-2024 GFR/1.73 sq M.predicted among non-blacks MDRD (S/P/Bld) [Vol rate/Area] mL/min/{1.73_m2} >60 [facility] MRI Abd WITH and W/O Contras ton 10-22-2024 MRI Abd WITH and W/O Contrast Normal [facility] CNPNon 10-20-2024 CNPN Normal [place] Gastroenterology Visit Repor ton 09-24-2024 Gastroenterology Visit Report Normal [facility] CNPNon 09-18-2024 CNPN Normal [place] CBC W Auto Differential pane l (Bld)on 09-17-2024 Basophils (Bld) [#/Vol] 10*3/uL Normal <0.11 [place] Comment on above: Order Comment: Speci men Type: BLOOD SPECIMENOrdering Facility: [facility] Address: [address] [place] [address] Performed By: #### 5 7021-8 ####[facility] [id number] [place] [address] [place] Basophils/100 WBC (Bld) 0.6 % Normal [place] Comment on above: Order Comment: Speci men Type: BLOOD SPECIMENOrdering Facility: [facility] Address: [address] [place] [address] Performed By: #### 5 7021-8 ####[facility] [id number] [place] [address] [place] Differential cell count method Nom (Bld) Auto Normal [place] Comment on above: Order Comment: Speci men Type: BLOOD SPECIMENOrdering Facility: [facility] Address: [address] [place] [address] Performed By: #### 5 7021-8 ####[facility] [id number] [place] [address] [place] Eosinophils (Bld) [#/Vol] 0.18 10*3/uL Normal <0.46 [place] Comment on above: Order Comment: Speci men Type: BLOOD SPECIMENOrdering Facility: [facility] Address: [address] [place] [address] Performed By: #### 5 7021-8 ####[facility] PRIYAGIOVANNILIA [id number] [place] [address] [place] Eosinophils/100 WBC (Bld) 5.1 % Normal [place] Comment on above: Order Comment: Speci men Type: BLOOD SPECIMENOrdering Facility: [facility] Address: [address] [place] [address] Performed By: #### 5 7021-8 ####[facility] COMMUN[facility] HOSPITALHAYLIE [id number] [place] [address] [place] Erythrocyte distribution width (RBC) [Ratio] 20.1 % High 11.5-15.0 [place] Comment on above: Order Comment: Speci men Type: BLOOD SPECIMENOrdering Facility: [facility] Address: [address] [place] [address] Performed By: #### 5 7021-8 ####[facility] COMMUN[facility] HOSPITALHAYLIE [id number] [place] [address] [place] Hematocrit (Bld) [Volume fraction] 27.5 % Low 36.0-46.0 [place] Comment on above: Order Comment: Speci men Type: BLOOD SPECIMENOrdering Facility: [facility] Address: [address] [place] [address] Performed By: #### 5 7021-8 ####[facility] HOSPITALCECILELIA [id number] [place] [address] [place] Hemoglobin (Bld) [Mass/Vol] 8.0 g/dL Low 11.5-15.5 [place] Comment on above: Order Comment: Speci men Type: BLOOD SPECIMENOrdering Facility: [facility] Address: [address] [place] [address] Performed By: #### 5 7021-8 ####[facility] HOSPITALNCLIA [id number] [place] [address] [place] Immature granulocytes (Bld) [#/Vol] 10*3/uL Normal <0.10 [place] Comment on above: Order Comment: Speci men Type: BLOOD SPECIMENOrdering Facility: [facility] Address: [address] [place] [address] Performed By: #### 5 7021-8 ####[facility] [id number] [place] [address] [place] Immature granulocytes/100 WBC (Bld) 0.3 % Normal [place] Comment on above: Order Comment: Speci men Type: BLOOD SPECIMENOrdering Facility: [facility] Address: [address] [place] [address] Performed By: #### 5 7021-8 ####[facility] [id number] [place] [address] [place] Lymphocytes (Bld) [#/Vol] 0.94 10*3/uL Low 1.00-4.00 [place] Comment on above: Order Comment: Speci men Type: BLOOD SPECIMENOrdering Facility: [facility] Address: [address] [place] [address] Performed By: #### 5 7021-8 ####[facility] [id number] [place] [address] [place] Lymphocytes/100 WBC (Bld) 26.8 % Normal [place] Comment on above: Order Comment: Speci men Type: BLOOD SPECIMENOrdering Facility: [facility] Address: [address] [place] [address] Performed By: #### 5 7021-8 ####[facility] [id number] [place] [address] [place] MCH (RBC) [Entitic mass] 23.1 pg Low 26.0-34.0 [place] Comment on above: Order Comment: Speci men Type: BLOOD SPECIMENOrdering Facility: [facility] Address: [address] [place] [address] Performed By: #### 5 7021-8 ####[facility] JOSE DANIELNCPRISCILLA [id number] [place] [address] [place] MCHC (RBC) [Mass/Vol] 29.1 g/dL Low 30.5-36.0 [facility] Comment on above: Order Comment: Speci men Type: BLOOD SPECIMENOrdering Facility: [facility] Address: [address] [place] [address] Performed By: #### 5 7021-8 ####[facility] COMMUN[facility] HOSPITALNCNoe [id number] [place] [address] [place] MCV (RBC) [Entitic vol] 79.3 fL Low 80.0-100.0 [place] Comment on above: Order Comment: Speci men Type: BLOOD SPECIMENOrdering Facility: [facility] Address: [address] [place] [address] Performed By: #### 5 7021-8 ####[facility] COMM[facility] HOSPITALNCA [id number] [place] [address] [place] Monocytes (Bld) [#/Vol] 0.29 10*3/uL Normal <0.87 [place] Comment on above: Order Comment: Speci men Type: BLOOD SPECIMENOrdering Facility: [facility] Address: [address] [place] [address] Performed By: #### 5 7021-8 ####[facility] HOSPITALNCLIA [id number] [place] [address] [place] Monocytes/100 WBC (Bld) 8.3 % Normal [place] Comment on above: Order Comment: Speci men Type: BLOOD SPECIMENOrdering Facility: [facility] Address: [address] [place] [address] Performed By: #### 5 7021-8 ####[facility] HOSPITALLIA [id number] [place] [address] [place] Neutrophils (Bld) [#/Vol] 2.07 10*3/uL Normal 1.45-7.50 [place] Comment on above: Order Comment: Speci men Type: BLOOD SPECIMENOrdering Facility: [facility] Address: [address] [place] [address] Performed By: #### 5 7021-8 ####[facility] [id number] [place] [address] [place] Neutrophils/100 WBC (Bld) 58.9 % Normal [place] Comment on above: Order Comment: Speci men Type: BLOOD SPECIMENOrdering Facility: [facility] Address: [address] [place] [address] Performed By: #### 5 7021-8 ####[facility] [id number] [place] [address] [place] Nucleated RBC (Bld) [#/Vol] 10*3/uL Normal <0.01 [place] Comment on above: Order Comment: Speci men Type: BLOOD SPECIMENOrdering Facility: [facility] Address: [address] [place] [address] Performed By: #### 5 7021-8 ####[facility] [id number] [place] [address] [place] Nucleated RBC/100 WBC (Bld) [Ratio] 0.0 /100 WBC Normal [place] Comment on above: Order Comment: Speci men Type: BLOOD SPECIMENOrdering Facility: [facility] Address: [address] [place] [address] Performed By: #### 5 7021-8 ####[facility] HOSPITALNCLIA [id number] [place] [address] [place] Platelet mean volume (Bld) [Entitic vol] 10.2 fL Normal 9.0-12.7 [place] Comment on above: Order Comment: Speci men Type: BLOOD SPECIMENOrdering Facility: [facility] Address: [address] [place] [address] Performed By: #### 5 7021-8 ####[facility] HOSPITALNCOGD[facility] [id number] [place] [address] [place] Platelets (Bld) [#/Vol] 126 10*3/uL Low 150-400 [place] Comment on above: Order Comment: Speci men Type: BLOOD SPECIMENOrdering Facility: [facility] Address: [address] [place] [address] Performed By: #### 5 7021-8 ####[facility] HOSPITALNCOGD[facility] [id number] [place] [address] [place] RBC (Bld) [#/Vol] 3.47 10*6/uL Low 3.90-5.20 [facility] Comment on above: Order Comment: Speci men Type: BLOOD SPECIMENOrdering Facility: [facility] Address: [address] [place] [address] Performed By: #### 5 7021-8 ####[facility] COMM[facility] HOSPITALNCA [id number] [place] [address] [place] WBC (Bld) [#/Vol] 3.51 10*3/uL Low 3.70-11.00 [facility] Comment on above: Order Comment: Speci men Type: BLOOD SPECIMENOrdering Facility: [facility] Address: [address] [place] [address] Performed By: #### 5 7021-8 ####[facility] HOSPITALNCLIA [id number] [place] [address] [place] CREATININE BLDon 09-17-2024 Creatinine [Mass/Vol] 1.05 mg/dL High 0.58-0.96 [facility] Comment on above: Order Comment: Speci men Type: BLOOD SPECIMENOrdering Facility: [facility] Address: [address] [place] [address] Performed By: #### C RET1 ####[facility] HOSPITALNCOGD[facility] [id number] [place] [address] [place] Creatinine and Glomerular filtration rate.predicted panel (S/P/Bld) 57 mL/min/1.73m??? Low >=60 [place] Comment on above: Order Comment: Speci men Type: BLOOD SPECIMENOrdering Facility: [facility] Address: [address] [place] [address] Result Comment: Sally mated Glomerular Filtration Rate (eGFR) is calculated using the 2020 CKD-EPI creatinine equation. This equation utilizes serum creatinine, sex, and age as parameters. The creatinine assay has traceable calibration to isotope dilution-mass spectrometry. Refer to KDIGO guidelines for clinical interpretation. In patients with unstable renal function, e.g. those with acute kidney injury, the eGFR may not accurately reflect actual GFR. Performed By: #### C RET1 ####[facility] [id number] [place] [address] [place] Ferritin SerPl-mCncon 2024 Ferritin [Mass/Vol] 16.5 ng/mL Normal 14.7-205.1 [facility] Comment on above: Order Comment: Speci men Type: BLOOD SPECIMENOrdering Facility: [facility] Address: [address] [place] [address] Performed By: #### 2 276-4 ####[facility] LABCLIA [id number] [facility] [id number] [place] [address] [place] [employer] binding capaci ty panelon 09-17-2024 Iron [Mass/Vol] 38 ug/dL Low 41-186 [place] Comment on above: Order Comment: Speci men Type: BLOOD SPECIMENOrdering Facility: [facility] Address: [address] [place] [address] Performed By: #### 3 024-7, 3016-3, 3051-0, 81665-5 ####[facility] LABIA [id number] [place] [address] [place] Iron binding capacity [Mass/Vol] 416 ug/dL High 232-386 [place] Comment on above: Order Comment: Speci men Type: BLOOD SPECIMENOrdering Facility: [facility] Address: [address] [place] [address] Performed By: #### 3 024-7, 3016-3, 3051-0, 48784-5 ####[facility] [id number] [place] [address] [place] Iron/TIBC [Molar ratio] 9.1 % Low 15.0-57.0 [place] Comment on above: Order Comment: Speci men Type: BLOOD SPECIMENOrdering Facility: [facility] Address: [address] [place] [address] Performed By: #### 3 024-7, 3016-3, 305-0, 99623-8 ####[facility] [id number] [place] [address] [place] T3Free SerPl-mCncon 20 25 Free T3 [Mass/Vol] 2.6 pg/mL Normal 2.3-4.1 [facility] Comment on above: Order Comment: Speci men Type: BLOOD SPECIMENOrdering Facility: [facility] Address: [address] [place] [address] Performed By: #### 3 024-7, 3016-3, 305-0, 11455-7 ####[facility] [id number] [place] [address] [place] T4 Free SerPl-mCncon 09-17-2 025 Free T4 [Mass/Vol] 1.2 ng/dL Normal 0.9-1.7 [facility] Comment on above: Order Comment: Speci men Type: BLOOD SPECIMENOrdering Facility: [facility] Address: [address] [place] [address] [place] [address] Performed By: #### 3 024-7, 3016-3, 3051-0, 63068-4 ####[facility] LABCLIA [id number] [place] [address] [place] TSH SerPl-aCncon 09-17-2024 TSH Qn 2.750 m[IU]/L Normal 0.270-4.20 0 [place] Comment on above: Order Comment: Speci men Type: BLOOD SPECIMENOrdering Facility: [facility] Address: [address] [place], [place] [address] [address] Performed By: #### 3 024-7, 3016-3, 3051-0, 19897-8 ####[facility] LABCLIA [id number] [address] [place] CNPNon 09-14-2024 CNPN Normal [place] CNPNon 09-04-2024 CNPN Normal [place] CNPNon 09-01-2024 CNPN Normal [place] Orthopedic Visit Reporton Orthopedic Visit Report Normal [facility] CNPNon 08-28-2024 CNPN Normal [place] CNPNon 08-27-2024 CNPN Normal [place] CNOVon 08-26-2024 CNOV Normal [place] Emergency Department Summary on 08-26-2024 Emergency Department Summary Normal [facility] Humerus min 2 Viewson 2023 Humerus min 2 Views Normal [facility] CNOVon 08-19-2024 CNOV Office Visit (AGGENS 3) -- BARBARA MENESES ([id number]) 1955 F Date Time Provider Department 08/19/24 11:00 AM KIM WU AGGENS3 During your visit today, we recorded the following information about you: Kim Wu MD 08/19/2024 12:39 PM Signed Consultation requested by Dr. Hernandez for an opinion regarding right sided abdominal wall hernia. My final recommendations will be communicated back to the requesting physician by way of shared Medical record or letter to requesting physician via US mail. Barbara Meneses is a 69 year old White female who presents with complaints of right lower abdominal wall hernia. 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 She gets occasional discomfort at that site and a CT scan showed a abdominal wall hernia above the anterior superior iliac spine of the pelvis. She does have some nodularity in the area and there is concern for possible carcinomatosis but her CT has been stable. She also has cirrhotic changes of the liver and some portal hypertension. 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 Larkin COLONOSCOPY SCREENING 02/22/2023 EGD W/O [facility] SPEC VARICIES INJ 02/22/2023 HYSTERECTOMY HX 1994 Total PAST SURGICAL HISTORY OF 1974 right kidney removed THYROIDECTOMY SUBTOTAL/PARTIAL 1991 Social History Tobacco Use Smoking status: Former Current packs/day: 0.00 Average packs/day: 0.3 packs/day for 5.0 years (1.3 ttl pk-yrs) Types: Cigarettes Start date: 1978 Quit date: 1983 Years since quittin.9 Smokeless tobacco: Never Vaping Use Vaping status: Never Used Substance Use Topics Alcohol use: Yes Comment: Occasionally Drug use: No FAMILY HISTORY Problem Relation Age of Onset Osteoporosis Mother other (Hepatitis C) Mother Colon Cancer Father other (myasthenia gravis) Father Aneurysm Father Osteoporosis Sister No Known Problems Brother No Known Problems Brother Aneurysm Brother Cancer Brother bladder other (atrial fib) Brother COPD Brother No Known Problems Maternal Grandmother Stroke Maternal Grandfather ALLERGIES Allergen Reactions Mold Unknown Adhesive Tape (Yamel* Rash Januvia [Sitaglipti* Intolerance GI upset, aching of muscles, headaches Latex Itching Current Outpatient Medications Medication Sig propranolol (INDERAL) 10 mg tablet Take 0.5 tablets by mouth three times a day. iv contrast (will be provided with radiology test) CT Chest ABD/PEL-Inject, intravenously, once for 1 dose.No IV access, insert saline lock prior to the beginning of sedation, infusion, injection of imaging exam. Discontinue saline lock post exam. If Pt. has a central line or IVAD, may access for administration according to line specific nursing protocol. Once exam is complete flush line and de-access according to line specific nursing protocol in the CT contrast administration guidelines link. enteric contrast (will be provided with radiology test) For CT CHESTABD/PEL W IVCON Routine order Administer, As Directed One Time Only, via Oral, Rectal, both Oral and Rectal, Enteric Tube, Stoma or Indwelling Catheter, Enteric Contrast as designated per enteric contrast guidelines spironolactone (ALDACTONE) 50 mg tablet Take 2 tablets by mouth once daily. zolpidem (AMBIEN) 10 mg Take 1 tablet by mouth at bedtime as needed (insomnia) for up to 30 days. buPROPion (WELLBUTRIN) 100 mg tablet Take 2 tablets to total 200 mg in the morning and 1 tablet in the evening, total of 300 mg a day furosemide (LASIX) 20 mg tablet Take 1 tablet by mouth once daily. albuterol HFA (VENTOLIN HFA) 90 mcg/actuation inhaler Inhale 2 Puffs as instructed every 4 hours as needed for wheezing/shortness of breath. Blood-Glucose Meter,Continuous (FREESTYLE THEE 3 READER) [facility] [place] Use to check blood sugar at least four (4) times daily. Blood-Glucose Sensor (FREESTYLE THEE 3 SENSOR) [place] Apply new sensor every fourteen (14) days to upper arm. potassium chloride (K-TAB) 10 mEq tablet Take 10 mEq by mouth once daily. SYNTHROID 125 mcg tablet Take 1 tablet by mouth once daily. Take on empty stomach. For Thyroid dulaglutide (TRULICITY) 0.75 mg/0.5 mL pen injector Inject 0.75 mg subcutaneously (more content not included)... Normal [facility] CNOV Office Visit (AGGENS 3) -- BARBARA MENESES ([id number]) 1955 F Date Time Provider Department 08/19/24 10:45 AM MERY HERNANDEZ3 During your visit today, we recorded the following information about you: Pulse Blood pressure Height 86/minute 118/62 1.626 m Mery Hernandez MD 08/19/2024 4:34 PM Signed Mery Hernandez M.D. Surgical Oncology [address] [facility], [address] [place] [id number] Plan SUBJECTIVE HPI Barbara Meneses is a 69 year old female presenting for follow-up of CT scan findings of retroperitoneal fibrosis/carcinomatosis. Patient reports that since her last visit she reports no new or worsening symptoms. She reports no significant changes to her medical history. She notes that her right sided abdominal pain has not significantly increased. The ROS, medical, surgical, family, and social history were reviewed by Mery Hernandez MD. OBJECTIVE BP 118/62 Pulse 86 Ht 162.6 cm (5' 4) SpO2 99% BMI 32.79 kg/m? No weight on file for this encounter. Physical Exam Constitutional: General: She is not in acute distress. HENT: Head: Normocephalic and atraumatic. Eyes: Pupils: Pupils are equal, round, and reactive to light. Neck: Thyroid: No thyromegaly. Trachea: No tracheal deviation. Cardiovascular: Rate and Rhythm: Normal rate and regular rhythm. Heart sounds: Normal heart sounds. Pulmonary: Effort: Pulmonary effort is normal. No respiratory distress. Breath sounds: Normal breath sounds. No stridor. Abdominal: General: There is no distension. Palpations: Abdomen is soft. Tenderness: There is no abdominal tenderness. Hernia: A hernia is present. Musculoskeletal: General: No deformity. Normal range of motion. Skin: General: Skin is warm and dry. Findings: No erythema or rash. Neurological: Mental Status: She is alert and oriented to person, place, and time. Psychiatric: Mood and Affect: Affect normal. Judgment: Judgment normal. ASSESSMENT AND PLAN 69-year-old woman with history of cirrhosis and fat stranding/haziness in the retroperitoneum. I discussed with patient that her CT scan which is approximately 3 months from her last 1 does not demonstrate any significant changes. Advised her that we can proceed with interval imaging again as this does not appear to truly represent carcinomatosis in my view. I advised her that I would recommend interval imaging in 3 months in that circumstance. We also discussed that if she elects to proceed with hernia repair we can perform a diagnostic laparoscopy although I felt the yield would be relatively low given the retroperitoneal nature of these findings. After thorough discussion patient will discuss with general surgery today whether or not she would like to proceed with hernia repair. We will then plan management and coordination with general surgery. I spent a total of 30 minutes on the date of the service which included preparing to see the patient, completing clinical documentation, performing a medically appropriate examination, counseling and educating the patient/family/caregiver, and communicating with other HCPs (not separately reported). Mery Hernandez MD 08/19/2024 4:15 PM Allergies As of Date: 08/19/2024 Noted Allergy Reaction MOLD 12/27/2017 16 - Unknown ADHESIVE TAPE (ROSINS) 11/06/2017 2 - Rash JANUVIA (SITAGLIPTIN) 04/30/2023 5 - Intolerance Comments: GI upset, aching of muscles, headaches LATEX 06/27/2017 9 - Itching Date Reviewed: 08/19/2024 Reviewed by: Mery Hernandez MD - Fully Assessed Reason for Visit: Follow Up Tests Results [770] Cmt: Follow up CT Scan Primary Visit Diagnosis:Right lower quadrant abdominal pain [R10.31] Other Visit Diagnosis:Intra-abdominal and pelvic swelling, mass and lump, unspecified site [R19.00] Order(s):CT ABD/PEL W IVCON [[id number]] Order #: [id number] FUTURE iv contrast (will be provided with radiology test)CT ABD/PEL -Inject, intravenously, once for 1 dose.No IV access, insert saline lock prior to the beginning of sedation, infusion, injection of imaging exam. Discontinue saline lock post exam. If Pt. has a central line or IVAD, may access for administration according to line specific nursing protocol. Once exam is complete flush line and de-access according to line specific nursing protocol in the CT contrast administration guidelines link.Disp: 1 EachRfl: 0 enteric contrast (will be provided with radiology test)For CT ABD/PEL W IVCON Routine order Administer, As Directed One Time Only, via Oral, Rectal, both Oral and Rectal, Enteric Tube, Stoma or Indwelling Catheter, Enteric Contrast as designated per enteric contrast guidelinesDisp: 1 EachRfl: 0 CREATININE BLD [SQCRET] Order #: [id number] FUTURE Prescriptions as of 08/19/2024 - iv contrast (will be provided with radiolog (more content not included)... Normal [facility] M7400.3302on 08-17-2024 M7400.3302 Normal [facility] Comment on above: Performed By: #### M 7400.3302, L7000.0750, M100.637, M600.5000 ####[facility] [address] [place], [address] [employer] 8623on OP Normal [facility] Comment on above: Performed By: #### M 7400.3302, L7000.0750, M100.637, M600.5000 ####[facility] [address] [place], [address] CNPNon 08-14-2024 CNPN Normal [place] L7000.0750on 08-14-2024 P ELASTASE,FECA > 800 Normal >200 [facility] Comment on above: Result Comment: Resu lt Units: ug Elast./g Severe Pancreatic Insufficiency: <100 Moderate Pancreatic Insufficiency: 100 - 200 Normal: >200Performed at: - [facility] [id number] Director: Magdy Davey MD, Phone: [phone] Performed By: #### M 7400.3302, L7000.0750, M100.637, M600.5000 ####[facility] [address] [place], [address] CBC W Auto Differential pane l (Bld)on 08-12-2024 Basophils (Bld) [#/Vol] [facility] Basophils/100 WBC (Bld) 0.5 % [facility] Differential cell count method Nom (Bld) Auto [facility] Eosinophils (Bld) [#/Vol] 0.13 10*3/uL [facility] Eosinophils/100 WBC (Bld) 3.2 % [facility] Erythrocyte distribution width (RBC) [Ratio] 15.9 % High 11.5 - 15.0 % [facility] Hematocrit (Bld) [Volume fraction] 24.6 % Low 36.0 - 46.0 % [facility] Hemoglobin (Bld) [Mass/Vol] 7.7 g/dL Low 11.5 - 15.5 g/dL [facility] Immature granulocytes (Bld) [#/Vol] [facility] Immature granulocytes/100 WBC (Bld) 0.2 % [facility] Interpretation and review of laboratory results Abnormal [facility] Lymphocytes (Bld) [#/Vol] 0.99 10*3/uL Low [facility] Lymphocytes/100 WBC (Bld) 24.7 % [facility] MCH (RBC) [Entitic mass] 28.2 pg 26.0 - 34.0 pg [facility] MCHC (RBC) [Mass/Vol] 31.3 g/dL 30.5 - 36.0 g/dL [facility] MCV (RBC) [Entitic vol] 90.1 fL 80.0 - 100.0 fL [facility] Monocytes (Bld) [#/Vol] 0.40 10*3/uL [facility] Monocytes/100 WBC (Bld) 10.0 % [facility] Neutrophils (Bld) [#/Vol] 2.46 10*3/uL [facility] Neutrophils/100 WBC (Bld) 61.4 % [facility] Nucleated RBC (Bld) [#/Vol] [facility] Nucleated RBC/100 WBC (Bld) [Ratio] 0.0 % /100 WBC [facility] Platelet mean volume (Bld) [Entitic vol] 11.1 fL 9.0 - 12.7 fL [facility] Platelets (Bld) [#/Vol] 123 10*3/uL Low [facility] RBC (Bld) [#/Vol] 2.73 10*6/uL Low 3.90 - 5.20 m/uL [facility] WBC (Bld) [#/Vol] 4.01 10*3/uL [facility] Basophils (Bld) [#/Vol] 10*3/uL Normal <0.11 [place] Comment on above: Order Comment: Speci men Type: BLOOD SPECIMENOrdering Facility: [facility] Address: [address] [place] [address] Performed By: #### 5 7021-8 ####[facility] LABCLIA [id number] [place] [address] [place] Basophils/100 WBC (Bld) 0.5 % Normal [place] Comment on above: Order Comment: Speci men Type: BLOOD SPECIMENOrdering Facility: [facility] Address: [address] [place] [address] Performed By: #### 5 7021-8 ####[facility] LABCLIA [id number] [place] [address] [place] Differential cell count method Nom (Bld) Auto Normal [place] Comment on above: Order Comment: Speci men Type: BLOOD SPECIMENOrdering Facility: [facility] Address: [address] [place] [address] Performed By: #### 5 7021-8 ####[facility] LABCLIA [id number] [place] [address] [place] Eosinophils (Bld) [#/Vol] 0.13 10*3/uL Normal <0.46 [place] Comment on above: Order Comment: Speci men Type: BLOOD SPECIMENOrdering Facility: [facility] Address: [address] [place] [address] Performed By: #### 5 7021-8 ####[facility] LABCLIA [id number] [place] [address] [place] Eosinophils/100 WBC (Bld) 3.2 % Normal [place] Comment on above: Order Comment: Speci men Type: BLOOD SPECIMENOrdering Facility: [facility] Address: [address] [place] [address] Performed By: #### 5 7021-8 ####[facility] LABCLIA [id number] [place] [address] [place] Erythrocyte distribution width (RBC) [Ratio] 15.9 % High 11.5-15.0 [place] Comment on above: Order Comment: Speci men Type: BLOOD SPECIMENOrdering Facility: [facility] Address: [address] [place] [address] Performed By: #### 5 7021-8 ####[facility] LABCLIA [id number] [place] [address] [place] Hematocrit (Bld) [Volume fraction] 24.6 % Low 36.0-46.0 [place] Comment on above: Order Comment: Speci men Type: BLOOD SPECIMENOrdering Facility: [facility] Address: [address] [place] [address] Performed By: #### 5 7021-8 ####[facility] LABCLIA [id number] [place] [address] [place] Hemoglobin (Bld) [Mass/Vol] 7.7 g/dL Low 11.5-15.5 [place] Comment on above: Order Comment: Speci men Type: BLOOD SPECIMENOrdering Facility: [facility] Address: [address] [place] [address] Performed By: #### 5 7021-8 ####[facility] LABCLIA [id number] [place] [address] [place] Immature granulocytes (Bld) [#/Vol] 10*3/uL Normal <0.10 [place] Comment on above: Order Comment: Speci men Type: BLOOD SPECIMENOrdering Facility: [facility] Address: [address] [place] [address] Performed By: #### 5 7021-8 ####[facility] LABCLIA [id number] [place] [address] [place] Immature granulocytes/100 WBC (Bld) 0.2 % Normal [place] Comment on above: Order Comment: Speci men Type: BLOOD SPECIMENOrdering Facility: [facility] Address: [address] [place] [address] Performed By: #### 5 7021-8 ####[facility] LABCLIA [id number] [place] [address] [place] Lymphocytes (Bld) [#/Vol] 0.99 10*3/uL Low 1.00-4.00 [place] Comment on above: Order Comment: Speci men Type: BLOOD SPECIMENOrdering Facility: [facility] Address: [address] [place] [address] Performed By: #### 5 7021-8 ####[facility] LABCLIA [id number] [place] [address] [place] Lymphocytes/100 WBC (Bld) 24.7 % Normal [place] Comment on above: Order Comment: Speci men Type: BLOOD SPECIMENOrdering Facility: [facility] Address: [address] [place] [address] Performed By: #### 5 7021-8 ####[facility] LABCLIA [id number] [place] [address] [place] MCH (RBC) [Entitic mass] 28.2 pg Normal 26.0-34.0 [place] Comment on above: Order Comment: Speci men Type: BLOOD SPECIMENOrdering Facility: [facility] Address: [address] [place] [address] Performed By: #### 5 7021-8 ####[facility] LABCLIA [id number] [place] [address] [place] MCHC (RBC) [Mass/Vol] 31.3 g/dL Normal 30.5-36.0 [facility] Comment on above: Order Comment: Speci men Type: BLOOD SPECIMENOrdering Facility: [facility] Address: [address] [place] [address] Performed By: #### 5 7021-8 ####[facility] LABIA [id number] [place] [address] [place] MCV (RBC) [Entitic vol] 90.1 fL Normal 80.0-100.0 [place] Comment on above: Order Comment: Speci men Type: BLOOD SPECIMENOrdering Facility: [facility] Address: [address] [place] [address] Performed By: #### 5 7021-8 ####[facility] LABIA [id number] [place] [address] [place] Monocytes (Bld) [#/Vol] 0.40 10*3/uL Normal <0.87 [place] Comment on above: Order Comment: Speci men Type: BLOOD SPECIMENOrdering Facility: [facility] Address: [address] [place] [address] Performed By: #### 5 7021-8 ####[facility] LABIA [id number] [place] [address] [place] Monocytes/100 WBC (Bld) 10.0 % Normal [place] Comment on above: Order Comment: Speci men Type: BLOOD SPECIMENOrdering Facility: [facility] Address: [address] [place] [address] Performed By: #### 5 7021-8 ####[facility] LABIA [id number] [place] [address] [place] Neutrophils (Bld) [#/Vol] 2.46 10*3/uL Normal 1.45-7.50 [place] Comment on above: Order Comment: Speci men Type: BLOOD SPECIMENOrdering Facility: [facility] Address: [address] [place] [address] Performed By: #### 5 7021-8 ####[facility] LABCLIA [id number] [place] [address] [place] Neutrophils/100 WBC (Bld) 61.4 % Normal [place] Comment on above: Order Comment: Speci men Type: BLOOD SPECIMENOrdering Facility: [facility] Address: [address] [place] [address] Performed By: #### 5 7021-8 ####[facility] LABCLIA [id number] [place] [address] [place] Nucleated RBC (Bld) [#/Vol] 10*3/uL Normal <0.01 [place] Comment on above: Order Comment: Speci men Type: BLOOD SPECIMENOrdering Facility: [facility] Address: [address] [place] [address] Performed By: #### 5 7021-8 ####[facility] LABCLIA [id number] [place] [address] [place] Nucleated RBC/100 WBC (Bld) [Ratio] 0.0 /100 WBC Normal [place] Comment on above: Order Comment: Speci men Type: BLOOD SPECIMENOrdering Facility: [facility] Address: [address] [place] [address] Performed By: #### 5 7021-8 ####[facility] LABIA [id number] [place] [address] [place] Platelet mean volume (Bld) [Entitic vol] 11.1 fL Normal 9.0-12.7 [place] Comment on above: Order Comment: Speci men Type: BLOOD SPECIMENOrdering Facility: [facility] Address: [address] [place] [address] Performed By: #### 5 7021-8 ####[facility] LABIA [id number] [place] [id number] [place] Platelets (Bld) [#/Vol] 123 10*3/uL Low 150-400 [place] Comment on above: Order Comment: Speci men Type: BLOOD SPECIMENOrdering Facility: [facility] Address: [address] [place] [address] Performed By: #### 5 7021-8 ####[facility] LABIA [id number] [place] [address] [place] RBC (Bld) [#/Vol] 2.73 10*6/uL Low 3.90-5.20 [facility] Comment on above: Order Comment: Speci men Type: BLOOD SPECIMENOrdering Facility: [facility] Address: [address] [place] [address] Performed By: #### 5 7021-8 ####[facility] LABIA [id number] [place] [address] [place] WBC (Bld) [#/Vol] 4.01 10*3/uL Normal 3.70-11.00 [facility] Comment on above: Order Comment: Speci men Type: BLOOD SPECIMENOrdering Facility: [facility] Address: [address] [place] [address] Performed By: #### 5 7021-8 ####[facility] LABIA [id number] [place] [id number] [place] CNOVon 08-12-2024 CNOV Normal [place] Ferritin SerPl-mCncon 2023 Ferritin [Mass/Vol] 20.4 ng/mL Normal 14.7-205.1 [facility] Comment on above: Order Comment: Speci men Type: BLOOD SPECIMENOrdering Facility: [facility] Address: [address] [place] [address] Performed By: #### 2 276-4, 16743-5 ####[facility] LABCLIA [id number] [place] [id number] [place] [employer] binding capaci ty panelon 08-12-2024 Iron [Mass/Vol] 19 ug/dL Low 41-186 [place] Comment on above: Order Comment: Speci men Type: BLOOD SPECIMENOrdering Facility: [facility] Address: [address] [place] [address] Performed By: #### 2 276-4, 47237-1 ####[facility] LABIA [id number] [place] [address] [place] Iron binding capacity [Mass/Vol] 378 ug/dL Normal 232-386 [place] Comment on above: Order Comment: Speci men Type: BLOOD SPECIMENOrdering Facility: [facility] Address: [address] [place] [address] Performed By: #### 2 276-4, 83291-0 ####[facility] LABIA [id number] [place] [address] [place] Iron/TIBC [Molar ratio] 5.0 % Low 15.0-57.0 [place] Comment on above: Order Comment: Speci men Type: BLOOD SPECIMENOrdering Facility: [facility] Address: [address] [place] [address] Performed By: #### 2 276-4, 54209-7 ####[facility] LABIA [id number] [address] [address] [place] CNPNon 08-11-2024 CNPN Normal [place] ENTERIC PATHOGEN PANEL STOOL on 08-11-2024 EP PANEL Normal [facility] Comment on above: Performed By: #### M 7400.3302, L7000.0750, M100.637, M600.5000 ####[facility] [address] [place], [address] CNPNon 08-10-2024 CNPN Normal [place] Calprotectin, Stoolon [address] 73 ug/g Normal 0-120 [facility] Comment on above: Result Comment: Conc entration Interpretation Follow-Up< 5 - 50 ug/g Normal None>50 -120 ug/g Borderline Re-evaluate in 4-6 weeks >120 ug/g Abnormal Repeat as clinically indicatedPerformed at: [facility] [employer] [id number] Director: Magdy Davey MD, Phone: [phone] Performed By: #### L 7000.0700, M100.0605 ####[facility] [address] [place], [address] AFP, Tumor Markeron 08-08-20 AFP TUMOR CHANI < 1.8 Normal 0.0-9.2 [facility] Comment on above: Order Comment: N Result Comment: [facility] [employer] Electrochemiluminescence Immunoassay(ECLIA)Values obtained with different assay methods or kits cannotbe used interchangeably. Results cannot be interpreted asabsolute evidence of the presence or absence of malignantdisease.This test is not interpretable in females.Performed at: [facility] [id number] Director: Sunny Rincon PhD, Phone: [phone] Performed By: #### L 503.5510, L300.3900, L501.2300, L501.5200, L500.4050, L3300.0700, L506.1000, L501.9985, L501.6710, L504.2610, L500.4100, L100.0100 ####[facility] [address] [place], [address] Ammoniaon 08-07-2024 Ammonia (P) [Moles/Vol] 24.0 umol/L Normal 11-32 [facility] Comment on above: Performed By: #### L 503.5510, L300.3900, L501.2300, L501.5200, L500.4050, L3300.0700, L506.1000, L501.9985, L501.6710, L504.2610, L500.4100, L100.0100 ####[facility] [address] [place], [place], [id number] CBC W/Diff, Automatedon 11-2 Absolute Lymph 0.93 X10 3/uL Normal 0.83-4.51 [facility] Comment on above: Performed By: #### L 503.5510, L300.3900, L501.2300, L501.5200, L500.4050, L3300.0700, L506.1000, L501.9985, L501.6710, L504.2610, L500.4100, L100.0100 ####[facility] [address] [place], [place], [phone] Absolute Neut 2.2 X10 3/uL Normal 2.0-7.7 [facility] Comment on above: Performed By: #### L 503.5510, L300.3900, L501.2300, L501.5200, L500.4050, L3300.0700, L506.1000, L501.9985, L501.6710, L504.2610, L500.4100, L100.0100 ####[facility] [address] [place], [place], [phone] Basophils/100 WBC (Bld) 0.3 % Normal 0-1 [facility] Comment on above: Performed By: #### L 503.5510, L300.3900, L501.2300, L501.5200, L500.4050, L3300.0700, L506.1000, L501.9985, L501.6710, L504.2610, L500.4100, L100.0100 ####[facility] [address] [place], [address] Eosinophils/100 WBC (Bld) 3.4 % Normal 0-5 [facility] Comment on above: Performed By: #### L 503.5510, L300.3900, L501.2300, L501.5200, L500.4050, L3300.0700, L506.1000, L501.9985, L501.6710, L504.2610, L500.4100, L100.0100 ####[facility] [address] [place], [place], [phone] Erythrocyte distribution width (RBC) [Ratio] 15.4 % High 11.6-14.6 [facility] Comment on above: Performed By: #### L 503.5510, L300.3900, L501.2300, L501.5200, L500.4050, L3300.0700, L506.1000, L501.9985, L501.6710, L504.2610, L500.4100, L100.0100 ####[facility] [address] [place], [address] Hematocrit (Bld) [Volume fraction] 22.8 % Low 37-47 [facility] Comment on above: Performed By: #### L 503.5510, L300.3900, L501.2300, L501.5200, L500.4050, L3300.0700, L506.1000, L501.9985, L501.6710, L504.2610, L500.4100, L100.0100 ####[facility] [address] [place], [address] Hemoglobin (Bld) [Mass/Vol] 7.6 g/dL Low 12.0-15.0 [facility] Comment on above: Performed By: #### L 503.5510, L300.3900, L501.2300, L501.5200, L500.4050, L3300.0700, L506.1000, L501.9985, L501.6710, L504.2610, L500.4100, L100.0100 ####[facility] [address] [place], [address] IG% 0.600 Normal 0.0-0.9 [facility] Comment on above: Result Comment: IG% - Immature Granulocytes (promyelocytes, myelocytes andmetamyelocytes) > 1% indicates that a LEFT SHIFT is Present. Performed By: #### L 503.5510, L300.3900, L501.2300, L501.5200, L500.4050, L3300.0700, L506.1000, L501.9985, L501.6710, L504.2610, L500.4100, L100.0100 ####[facility] [address] [facility] [place], [address] Lymphocytes/100 WBC (Bld) 26.0 % Normal 19-41 [facility] Comment on above: Performed By: #### L 503.5510, L300.3900, L501.2300, L501.5200, L500.4050, L3300.0700, L506.1000, L501.9985, L501.6710, L504.2610, L500.4100, L100.0100 ####[facility] [address] [facility] [place], [address] MCH (RBC) [Entitic mass] 30.3 pg Normal 27.0-32.0 [facility] Comment on above: Performed By: #### L 503.5510, L300.3900, L501.2300, L501.5200, L500.4050, L3300.0700, L506.1000, L501.9985, L501.6710, L504.2610, L500.4100, L100.0100 ####[facility] [address] [place], [address] MCHC (RBC) [Mass/Vol] 33.3 g/dL Normal 32-36 [facility] Comment on above: Performed By: #### L 503.5510, L300.3900, L501.2300, L501.5200, L500.4050, L3300.0700, L506.1000, L501.9985, L501.6710, L504.2610, L500.4100, L100.0100 ####[facility] [address] [place], [address] MCV (RBC) [Entitic vol] 90.8 fL Normal 81-99 [facility] Comment on above: Performed By: #### L 503.5510, L300.3900, L501.2300, L501.5200, L500.4050, L3300.0700, L506.1000, L501.9985, L501.6710, L504.2610, L500.4100, L100.0100 ####[facility] [address] [place], [address] Monocytes/100 WBC (Bld) 8.1 % Normal 0-10 [facility] Comment on above: Performed By: #### L 503.5510, L300.3900, L501.2300, L501.5200, L500.4050, L3300.0700, L506.1000, L501.9985, L501.6710, L504.2610, L500.4100, L100.0100 ####[facility] [address] [place], [address] Neutrophils/100 WBC (Bld) 61.6 % Normal 47-70 [facility] Comment on above: Performed By: #### L 503.5510, L300.3900, L501.2300, L501.5200, L500.4050, L3300.0700, L506.1000, L501.9985, L501.6710, L504.2610, L500.4100, L100.0100 ####[facility] [address] [place], [address] Nucleated RBC (Bld) [#/Vol] 0 10*3/uL Normal 0-5 [facility] Comment on above: Performed By: #### L 503.5510, L300.3900, L501.2300, L501.5200, L500.4050, L3300.0700, L506.1000, L501.9985, L501.6710, L504.2610, L500.4100, L100.0100 ####[facility] [address] [place], [address] Platelet mean volume (Bld) [Entitic vol] 10.3 fL Normal 6.2-12.0 [facility] Comment on above: Performed By: #### L 503.5510, L300.3900, L501.2300, L501.5200, L500.4050, L3300.0700, L506.1000, L501.9985, L501.6710, L504.2610, L500.4100, L100.0100 ####[facility] [address] [place], [address] Platelets (Bld) [#/Vol] 107 10*3/uL Low 150-450 [facility] Comment on above: Performed By: #### L 503.5510, L300.3900, L501.2300, L501.5200, L500.4050, L3300.0700, L506.1000, L501.9985, L501.6710, L504.2610, L500.4100, L100.0100 ####[facility] [address] [place], [address] RBC (Bld) [#/Vol] 2.51 10*6/uL Low 4.2-5.4 [facility] Comment on above: Performed By: #### L 503.5510, L300.3900, L501.2300, L501.5200, L500.4050, L3300.0700, L506.1000, L501.9985, L501.6710, L504.2610, L500.4100, L100.0100 ####[facility] [address] [place], [place], [phone] RDW SD 47.5 fl High 35.1-43.9 [facility] Comment on above: Performed By: #### L 503.5510, L300.3900, L501.2300, L501.5200, L500.4050, L3300.0700, L506.1000, L501.9985, L501.6710, L504.2610, L500.4100, L100.0100 ####[facility] [address] [place], [place], [phone] WBC (Bld) [#/Vol] 3.6 10*3/uL Low 4.4-11.0 [facility] Comment on above: Performed By: #### L 503.5510, L300.3900, L501.2300, L501.5200, L500.4050, L3300.0700, L506.1000, L501.9985, L501.6710, L504.2610, L500.4100, L100.0100 ####[facility] [address] [place], [place], [phone] CRPon 08-07-2024 C-REACTIVE PROT < 2.90 Normal 0.0-3.0 [facility] Comment on above: Order Comment: 1 Result Comment: C-Re active Protein (CRP) provides useful information for thediagnosis, therapy and monitoring of inflammatory processesand associated diseases. For the evaluation of Relative Riskfor Cardiovascular Disease, a High Sensitivity CRP (HSCRP)should be ordered. Performed By: #### L 503.5510, L300.3900, L501.2300, L501.5200, L500.4050, L3300.0700, L506.1000, L501.9985, L501.6710, L504.2610, L500.4100, L100.0100 ####[facility] [address] [place], [place], [phone] Comprehensive Metabolic Prof ilon 08-07-2024 Albumin [Mass/Vol] 3.2 g/dL Normal 3.2-5.0 [facility] Comment on above: Order Comment: 1 Performed By: #### L 503.5510, L300.3900, L501.2300, L501.5200, L500.4050, L3300.0700, L506.1000, L501.9985, L501.6710, L504.2610, L500.4100, L100.0100 ####[facility] [address] [place], [place], [phone] Albumin/Globulin [Mass ratio] 1.2 {ratio} Normal 0.9-2.4 [facility] Comment on above: Order Comment: 1 Performed By: #### L 503.5510, L300.3900, L501.2300, L501.5200, L500.4050, L3300.0700, L506.1000, L501.9985, L501.6710, L504.2610, L500.4100, L100.0100 ####[facility] [address] [place], [place], [phone] ALK P 90 U/L Normal 45-117 [facility] Comment on above: Order Comment: 1 Performed By: #### L 503.5510, L300.3900, L501.2300, L501.5200, L500.4050, L3300.0700, L506.1000, L501.9985, L501.6710, L504.2610, L500.4100, L100.0100 ####[facility] [address] [place], [place], [phone] ALT [Catalytic activity/Vol] 26 U/L Normal 13-56 [facility] Comment on above: Order Comment: 1 Performed By: #### L 503.5510, L300.3900, L501.2300, L501.5200, L500.4050, L3300.0700, L506.1000, L501.9985, L501.6710, L504.2610, L500.4100, L100.0100 ####[facility] [address] [place], [place], [phone] AST [Catalytic activity/Vol] 18 U/L Normal 15-37 [facility] Comment on above: Order Comment: 1 Performed By: #### L 503.5510, L300.3900, L501.2300, L501.5200, L500.4050, L3300.0700, L506.1000, L501.9985, L501.6710, L504.2610, L500.4100, L100.0100 ####[facility] [address] [place], [place], [phone] Bilirubin [Mass/Vol] 1.00 mg/dL Normal 0.20-1.00 [facility] Comment on above: Order Comment: 1 Result Comment: For patients on eltrombopag therapy, use of Dimension Bronson TBIL is not recommended. Performed By: #### L 503.5510, L300.3900, L501.2300, L501.5200, L500.4050, L3300.0700, L506.1000, L501.9985, L501.6710, L504.2610, L500.4100, L100.0100 ####[facility] [address] [place], [place], [phone] BUN/CRE 16.8 RATIO Normal 10-20 [facility] Comment on above: Order Comment: 1 Performed By: #### L 503.5510, L300.3900, L501.2300, L501.5200, L500.4050, L3300.0700, L506.1000, L501.9985, L501.6710, L504.2610, L500.4100, L100.0100 ####[facility] [address] [place], [address] CA,Total 9.3 mg/dL Normal 8.5-10.1 [facility] Comment on above: Order Comment: 1 Performed By: #### L 503.5510, L300.3900, L501.2300, L501.5200, L500.4050, L3300.0700, L506.1000, L501.9985, L501.6710, L504.2610, L500.4100, L100.0100 ####[facility] [address] [place], [address] Chloride [Moles/Vol] 109 mmol/L High 98-107 [facility] Comment on above: Order Comment: 1 Performed By: #### L 503.5510, L300.3900, L501.2300, L501.5200, L500.4050, L3300.0700, L506.1000, L501.9985, L501.6710, L504.2610, L500.4100, L100.0100 ####[facility] [address] [place], [address] CO2 [Moles/Vol] 21.0 mmol/L Normal 21.0-32.0 [facility] Comment on above: Order Comment: 1 Performed By: #### L 503.5510, L300.3900, L501.2300, L501.5200, L500.4050, L3300.0700, L506.1000, L501.9985, L501.6710, L504.2610, L500.4100, L100.0100 ####[facility] [address] [place], [address] Creatinine [Mass/Vol] 1.25 mg/dL High 0.55-1.02 [facility] Comment on above: Order Comment: 1 Result Comment: The validity of the calculated GFR GFRAA in patients over70 years has not been determined. Clinical correlation isessential. Performed By: #### L 503.5510, L300.3900, L501.2300, L501.5200, L500.4050, L3300.0700, L506.1000, L501.9985, L501.6710, L504.2610, L500.4100, L100.0100 ####[facility] [address] [place], [place], [address] EST GFR - AA 54 mL/min Low >60 [facility] Comment on above: Order Comment: 1 Result Comment: Afri can [place] GFR Calc Performed By: #### L 503.5510, L300.3900, L501.2300, L501.5200, L500.4050, L3300.0700, L506.1000, L501.9985, L501.6710, L504.2610, L500.4100, L100.0100 ####[facility] [address] [place], [place], [phone] GAP 7 Normal 5-15 [facility] Comment on above: Order Comment: 1 Performed By: #### L 503.5510, L300.3900, L501.2300, L501.5200, L500.4050, L3300.0700, L506.1000, L501.9985, L501.6710, L504.2610, L500.4100, L100.0100 ####[facility] [address] [place], [place], [phone] GFR/1.73 sq M.predicted among non-blacks MDRD (S/P/Bld) [Vol rate/Area] 45 mL/min/{1.73_m2} Low >60 [facility] Comment on above: Order Comment: 1 Result Comment: Non- GFR Calc Performed By: #### L 503.5510, L300.3900, L501.2300, L501.5200, L500.4050, L3300.0700, L506.1000, L501.9985, L501.6710, L504.2610, L500.4100, L100.0100 ####[facility] [address] [place], [address] Globulin (S) [Mass/Vol] 2.6 g/dL Normal 2.2-4.2 [facility] Comment on above: Order Comment: 1 Performed By: #### L 503.5510, L300.3900, L501.2300, L501.5200, L500.4050, L3300.0700, L506.1000, L501.9985, L501.6710, L504.2610, L500.4100, L100.0100 ####[facility] [address] [place], [address] Glucose [Mass/Vol] 223 mg/dL High 74-106 [facility] Comment on above: Order Comment: 1 Result Comment: Gluc ose result greater than or equal to 200 mg/dLsuggests DIABETES MELLITUS per A.D.A. criteria. Performed By: #### L 503.5510, L300.3900, L501.2300, L501.5200, L500.4050, L3300.0700, L506.1000, L501.9985, L501.6710, L504.2610, L500.4100, L100.0100 ####[facility] [address] [place], [address] Potassium [Moles/Vol] 3.7 mmol/L Normal 3.5-5.1 [facility] Comment on above: Order Comment: 1 Performed By: #### L 503.5510, L300.3900, L501.2300, L501.5200, L500.4050, L3300.0700, L506.1000, L501.9985, L501.6710, L504.2610, L500.4100, L100.0100 ####[facility] [address] [place], [address] Sodium [Moles/Vol] 138 mmol/L Normal 136-145 [facility] Comment on above: Order Comment: 1 Performed By: #### L 503.5510, L300.3900, L501.2300, L501.5200, L500.4050, L3300.0700, L506.1000, L501.9985, L501.6710, L504.2610, L500.4100, L100.0100 ####[facility] [address] [place], [address] T PROT 5.8 g/dL Low 6.4-8.2 [facility] Comment on above: Order Comment: 1 Performed By: #### L 503.5510, L300.3900, L501.2300, L501.5200, L500.4050, L3300.0700, L506.1000, L501.9985, L501.6710, L504.2610, L500.4100, L100.0100 ####[facility] [address] [place], [address] Urea nitrogen [Mass/Vol] 21 mg/dL High 7-18 [facility] Comment on above: Order Comment: 1 Performed By: #### L 503.5510, L300.3900, L501.2300, L501.5200, L500.4050, L3300.0700, L506.1000, L501.9985, L501.6710, L504.2610, L500.4100, L100.0100 ####[facility] [address] [place], [place], [phone] Hemoglobin A1con 08-07-2024 HbA1c (Bld) [Mass fraction] 5.9 % High 3.8-5.6 [facility] Comment on above: Result Comment: Norm al < 5.7 % Prediabetic 5.7 - 6.4 % Diabetic >or= 6.5 % Please note range changes. Performed By: #### L 503.5510, L300.3900, L501.2300, L501.5200, L500.4050, L3300.0700, L506.1000, L501.9985, L501.6710, L504.2610, L500.4100, L100.0100 ####[facility] [address] [place], [place], [phone] LDHon 08-07-2024 LDH 129 U/L Normal 84-246 [facility] Comment on above: Order Comment: 1 Performed By: #### L 503.5510, L300.3900, L501.2300, L501.5200, L500.4050, L3300.0700, L506.1000, L501.9985, L501.6710, L504.2610, L500.4100, L100.0100 ####[facility] [address] [place], [place], [phone] Lipid Profileon 08-07-2024 Cholesterol [Mass/Vol] 124 mg/dL Normal 200 [facility] Comment on above: Order Comment: 1 Result Comment: <200 mg/dL Desirable 200-240 mg/dL Borderline >240 mg/dL High Risk Performed By: #### L 503.5510, L300.3900, L501.2300, L501.5200, L500.4050, L3300.0700, L506.1000, L501.9985, L501.6710, L504.2610, L500.4100, L100.0100 ####[facility] [address] [place], [place], [phone] Cholesterol in HDL [Mass/Vol] 51 mg/dL Normal [facility] Comment on above: Order Comment: 1 Result Comment: The drugs N-Acetylcysteine and Metamizole may falselydepress this assay. Reference Range HDL <40 mg/dL Low HDL Cholesterol HDL >or= 60 mg/dL High HDL Cholesterol Performed By: #### L 503.5510, L300.3900, L501.2300, L501.5200, L500.4050, L3300.0700, L506.1000, L501.9985, L501.6710, L504.2610, L500.4100, L100.0100 ####[facility] [address] [place], [address] Cholesterol in LDL [Mass/Vol] 60 mg/dL Normal 0-130 [facility] Comment on above: Order Comment: 1 Performed By: #### L 503.5510, L300.3900, L501.2300, L501.5200, L500.4050, L3300.0700, L506.1000, L501.9985, L501.6710, L504.2610, L500.4100, L100.0100 ####[facility] [address] [place], [address] Cholesterol in VLDL [Mass/Vol] 13 mg/dL Normal 5-40 [facility] Comment on above: Order Comment: 1 Performed By: #### L 503.5510, L300.3900, L501.2300, L501.5200, L500.4050, L3300.0700, L506.1000, L501.9985, L501.6710, L504.2610, L500.4100, L100.0100 ####[facility] [address] [place], [address] Triglyceride [Mass/Vol] 63 mg/dL Normal [facility] Comment on above: Order Comment: 1 Result Comment: The drugs N-Acetylcysteine and Metamizole may falselydepress this assay.Serum Triglycerides Reference Interval Normal <150 mg/dL Borderline high 150 - 199 mg/dL High 200 - 499 mg/dL Very High > or = 500 mg/dL Performed By: #### L 503.5510, L300.3900, L501.2300, L501.5200, L500.4050, L3300.0700, L506.1000, L501.9985, L501.6710, L504.2610, L500.4100, L100.0100 ####[facility] [address] [place], [place], [address] Magnesiumon 08-07-2024 Magnesium [Mass/Vol] 2.0 mg/dL Normal 1.6-2.6 [facility] Comment on above: Order Comment: 1 Performed By: #### L 503.5510, L300.3900, L501.2300, L501.5200, L500.4050, L3300.0700, L506.1000, L501.9985, L501.6710, L504.2610, L500.4100, L100.0100 ####[facility] [address] [place], [place], [phone] Phosphoruson 08-07-2024 Phosphate [Mass/Vol] 2.9 mg/dL Normal 2.5-4.9 [facility] Comment on above: Order Comment: 1 Performed By: #### L 503.5510, L300.3900, L501.2300, L501.5200, L500.4050, L3300.0700, L506.1000, L501.9985, L501.6710, L504.2610, L500.4100, L100.0100 ####[facility] [address] [place], [place], [phone] Prothrombin Time w/INRon INR Coag (PPP) [Relative time] 1.2 {INR} Normal [facility] Comment on above: Performed By: #### L 503.5510, L300.3900, L501.2300, L501.5200, L500.4050, L3300.0700, L506.1000, L501.9985, L501.6710, L504.2610, L500.4100, L100.0100 ####[facility] [id number] [place], [place], [id number] PT Coag (PPP) [Time] 15.1 s High 11.7-14.9 [facility] Comment on above: Performed By: #### L 503.5510, L300.3900, L501.2300, L501.5200, L500.4050, L3300.0700, L506.1000, L501.9985, L501.6710, L504.2610, L500.4100, L100.0100 ####[facility] [id number] [place], [address] Stool Lactoferrin/WBCon 07-18 WBCST Normal Reference Ran ge = Negative Fecal WBC Lactoferrin A Positive: Fecal WBC Lactoferrin present A Normal [facility] Comment on above: Performed By: #### L 7000.0700, M100.0605 ####[facility] [id number] [place], [place], [id number] Vitamin D,25 Hydroxyon 08-07 Vitamin D 25-OH 69.6 ng/mL Normal [facility] Comment on above: Result Comment: Camelia min D 25(OH) Status Range Deficiency <20 ng/mL (50nmol/L) Insufficiency 20 - 30 ng/mL (50 - 75 nmol/L) Sufficiency 30 - 100 ng/mL (75 - 250 nmol/L) Toxicity >100 ng/mL (>250 nmol/L) Performed By: #### L 503.5510, L300.3900, L501.2300, L501.5200, L500.4050, L3300.0700, L506.1000, L501.9985, L501.6710, L504.2610, L500.4100, L100.0100 ####[facility] [id number] [place], [place], [address] CT ABD/PEL W IVCONon 024 CT ABD/PEL W IVCON [facility] CT CHEST W IVCONon 4 CT CHEST W IVCON Normal [facility] CNOVon 07-17-2024 CNOV Normal [place] CNOVon 07-08-2024 CNOV Normal [place] HEMOGLOBIN A1C (POC)on 10-23 -2024 HbA1c (Bld) [Mass fraction] 5.7 % Abnormal 4.3 - 5.6 % [facility] Comment on above: Location:[facility], [address] [place] [address], [place], [address] Point of care (POC) Hemoglobin A1c (HGBA1C) testing is intended to assess glucose control and provide a management tool for patients known to have diabetes and their healthcare providers. Target HGBA1C levels may depend on specific clinical circumstances. POC HGBA1C is not intended for use as a diagnostic or screening test; laboratory-based testing should be used for diagnostic purposes. The following information is supplemental and may not be applicable to specific diabetes management situations: The POC device poly area supervisor provides a normal range of 4.2% to 6.5% for the HGBA1C POC test. However, the [place] [employer] guidelines indicate that patients with HGBA1C in the range of 5.7% to 6.4% are at increased risk for development of diabetes and that intervention by lifestyle modification may be beneficial. A HGBA1C level greater than or equal to 6.5% is considered diagnostic of diabetes, pending confirmatory testing. Use of HGBA1C testing to evaluate glucose control may not be appropriate for patients with hemoglobin variants or other conditions (e.g. anemia) that alter red blood cell lifespan. Interpretation and review of laboratory results Abnormal [facility] Gastroenterology Visit Repor ton 07-07-2024 Gastroenterology Visit Report Normal [facility] System XR CHEST 2V FRONTAL/LATon XR CHEST 2V FRONTAL/LAT Normal [place] XR Chest PA and Lateralon IMPRESSION: Small left pleural effusion with significant interval decrease in size. Application Chemist: RICK Transcribe Date/Time: Jul 07 2024 3:39P Dictated by : BEATRIZ BUSH MD This examination was interpreted and the report reviewed and electronically signed by: BEATRIZ BUSH MD on Jul 07 2024 3:39PM [facility] DIVISION OF RADIOLOGY * * *Final Report* * * DATE OF EXAM: Jul 07 2024 3:30PM WOX 5291 - XR CHEST 2V FRONTAL/LAT / PROCEDURE REASON: Portal venous hypertension (HCC) * * * * Physician Interpretation * * * * EXAMINATION: CHEST RADIOGRAPH (2 VIEW FRONTAL & LATERAL) CLINICAL HISTORY: Portal venous hypertension (HCC) MQ: XC2_6 EXAM DATE/TIME: 07/07/2024 3:30 PM COMPARISON: Chest x-ray dated 06/10/2024 RESULT: Lines, tubes, and devices: None. Lungs and pleura: Small left pleural effusion with significant interval decrease in size. Cardiomediastinal silhouette: Normal cardiomediastinal silhouette. Bones and soft tissues: Degenerative changes are present within the thoracic spine. DIVISION OF RADIOLOGY Provider, Melinda Aparicio - 07/07/2024 * * *Final Report* * * DATE OF EXAM: Jul 07 2024 3:30PM WOX 5291 - XR CHEST 2V FRONTAL/LAT / PROCEDURE REASON: Portal venous hypertension (HCC) * * * * Physician Interpretation * * * * EXAMINATION: CHEST RADIOGRAPH (2 VIEW FRONTAL & LATERAL) CLINICAL HISTORY: Portal venous hypertension (HCC) MQ: XC2_6 EXAM DATE/TIME: 07/07/2024 3:30 PM COMPARISON: Chest x-ray dated 06/10/2024 RESULT: Lines, tubes, and devices: None. Lungs and pleura: Small left pleural effusion with significant interval decrease in size. Cardiomediastinal silhouette: Normal cardiomediastinal silhouette. Bones and soft tissues: Degenerative changes are present within the thoracic spine. IMPRESSION IMPRESSION: Small left pleural effusion with significant interval decrease in size. Application Chemist: RICK Transcribe Date/Time: Jul 07 2024 3:39P Dictated by : BEATRIZ BUSH MD This examination was interpreted and the report reviewed and electronically signed by: BEATRIZ BUSH MD on Jul 07 2024 3:39PM EST [facility] Radiology Study observation (narrative) [facility] XR Chest PA and LateralOrder ed By: Ccf Provider on 07-07-2024 [facility] CNOVon 07-01-2024 CNOV Office Visit (AGG[facility] 3) -- BARBARA MENESES ([id number]) 1955 F Date Time Provider Department 07/01/24 11:30 AM MERY HERNANDEZ3 During your visit today, we recorded the following information about you: Weight Height 86.6 kg 1.626 m Mery Hernandez MD 07/05/2024 2:58 PM Signed Mery Hernandez M.D. Surgical Oncology [address] [facility], [address] [place] [address] Plan SUBJECTIVE HPI Barbara Meneses is a 69 year old female presenting for possible right lower quadrant mass. Patient reports that for the past several months she has had some right lower quadrant abdominal pain. This prompted a CT scan which was performed on May 12, 2024. This demonstrated a ill-defined soft tissue nodularity within the right posterior abdomen/paracolic gutter as well as an ill-defined soft tissue nodularity surrounding the inferior mesenteric artery. Possibility of carcinomatosis was raised as well as concern for cirrhotic liver morphology and borderline splenomegaly. Patient was referred to general surgery but given the complexity of her abdominal findings she was referred to surgical oncology for further evaluation. Currently, patient reports that she continues to have some intermittent right lower quadrant abdominal pain which she reports is worse with walking and with exercise/lifting. She reports no nausea or vomiting. No changes to her bowel habits. She reports no other new or worrisome symptoms. Patient has had recent upper and lower endoscopies which demonstrate no significant findings in the colon except for hemorrhoids and no significant findings in the upper GI tract except for esophageal varices. This study was performed for some blood per rectum. The ROS, medical, surgical, family, and social history were reviewed by Mery Hernandez MD. OBJECTIVE Ht 162.6 cm (5' 4) Wt 86.6 kg (191 lb) BMI 32.79 kg/m? BMI 32.78 kg/(m2) Physical Exam Constitutional: General: She is not in acute distress. HENT: Head: Normocephalic and atraumatic. Eyes: Pupils: Pupils are equal, round, and reactive to light. Neck: Thyroid: No thyromegaly. Trachea: No tracheal deviation. Cardiovascular: Rate and Rhythm: Normal rate and regular rhythm. Heart sounds: Normal heart sounds. Pulmonary: Effort: Pulmonary effort is normal. No respiratory distress. Breath sounds: Normal breath sounds. No stridor. Abdominal: General: There is no distension. Palpations: Abdomen is soft. Tenderness: There is no abdominal tenderness. Musculoskeletal: General: No deformity. Normal range of motion. Skin: General: Skin is warm and dry. Findings: No erythema or rash. Neurological: Mental Status: She is alert and oriented to person, place, and time. Psychiatric: Mood and Affect: Affect normal. Judgment: Judgment normal. ASSESSMENT AND PLAN 69-year-old woman with cirrhosis and thrombocytopenia presenting for concern for carcinomatosis. I discussed with patient the finding on her CT scan. I advised her that I do not see obvious signs of carcinomatosis. The areas in question on her CT scan are mostly retroperitoneal and mesenteric structures. I reviewed her previous CT scan from 2016 without contrast that does not demonstrate these findings. However on both CT scans patient does appear to have a right flank hernia consistent with her previous right nephrectomy. Advised patient that her hernia could be the source of her pain. We could perform a diagnostic laparoscopy for the evaluation of her intra-abdominal findings however as she is close to 2 months out from her last imaging I advised patient that proceeding with short interval imaging in a month was fairly reasonable to determine the extent of these findings. After thorough discussion with the patient of the risks and benefits of surgery as well as the risks and benefits of interval imaging we elected to proceed with interval imaging. Patient will follow-up with me after her next CT scan. I answered all of her questions to her satisfaction she was agreeable to this plan. I spent a total of 45 minutes on the date of the service which included preparing to see the patient, completing clinical documentation, performing a medically appropriate examination, counseling and educating the patient/family/caregiver, ordering medications, tests, or procedures, and independently interpreting results (not separately reported). Mery Hernandez MD 07/01/2024 11:35 AM Referring Provider: ALBERTO LARKIN [[id number]] Allergies As of Date: 07/01/2024 Noted Allergy Reaction MOLD 12/27/2017 16 - Unknown ADHESIVE TAPE (ROSINS) 11/06/2017 2 - Rash JANUVIA (SITAGLIPTIN) 04/30/2023 5 - Intolerance Comments: GI upset, aching of muscles, headaches LATEX 06/27/2017 9 - Itching Date Reviewed: 07/01/2024 Reviewed b (more content not included)... Normal [facility] CNPNon 06-29-2024 CNPN Normal [place] CBC W Auto Differential pane l (Bld)on 06-18-2024 Basophils (Bld) [#/Vol] 10*3/uL Normal <0.11 [place] Comment on above: Order Comment: Speci men Type: BLOOD SPECIMENOrdering Facility: [facility] Address: [address] [place] [address] Performed By: #### 5 7021-8 ####[facility] MILLST. VINCENT CLAY HOSPITALLIA [id number] [place] [address] [place] Basophils/100 WBC (Bld) 0.7 % Normal [place] Comment on above: Order Comment: Speci men Type: BLOOD SPECIMENOrdering Facility: [facility] Address: [address] [place] [address] Performed By: #### 5 7021-8 ####[facility] [id number] [place] [address] [place] Differential cell count method Nom (Bld) Auto Normal [place] Comment on above: Order Comment: Speci men Type: BLOOD SPECIMENOrdering Facility: [facility] Address: [address] [place] [address] Performed By: #### 5 7021-8 ####[facility] MILLWNCLIA [id number] [place] [address] [place] Eosinophils (Bld) [#/Vol] 0.14 10*3/uL Normal <0.46 [place] Comment on above: Order Comment: Speci men Type: BLOOD SPECIMENOrdering Facility: [facility] Address: [address] [place] [address] Performed By: #### 5 7021-8 ####[facility]ITALNCLIA [id number] [place] [address] [place] Eosinophils/100 WBC (Bld) 5.2 % Normal [place] Comment on above: Order Comment: Speci men Type: BLOOD SPECIMENOrdering Facility: [facility] Address: [address] [place] [address] Performed By: #### 5 7021-8 ####[facility] [id number] [place] [address] [place] Erythrocyte distribution width (RBC) [Ratio] 20.2 % High 11.5-15.0 [place] Comment on above: Order Comment: Speci men Type: BLOOD SPECIMENOrdering Facility: [facility] Address: [address] [place] [address] Performed By: #### 5 7021-8 ####[facility]ITAL[facility] [id number] [place] [address] [place] Hematocrit (Bld) [Volume fraction] 31.9 % Low 36.0-46.0 [place] Comment on above: Order Comment: Speci men Type: BLOOD SPECIMENOrdering Facility: [facility] Address: [address] [place] [address] Performed By: #### 5 7021-8 ####[facility] [id number] [place] [address] [place] Hemoglobin (Bld) [Mass/Vol] 10.4 g/dL Low 11.5-15.5 [place] Comment on above: Order Comment: Speci men Type: BLOOD SPECIMENOrdering Facility: [facility] Address: [address] [place] [address] Performed By: #### 5 7021-8 ####[facility] [id number] [place] [address] [place] Immature granulocytes (Bld) [#/Vol] 10*3/uL Normal <0.10 [place] Comment on above: Order Comment: Speci men Type: BLOOD SPECIMENOrdering Facility: [facility] Address: [address] [place] [address] Performed By: #### 5 7021-8 ####[facility] HOSPITALHAYLIE [id number] [address] [place] Immature granulocytes/100 WBC (Bld) 0.4 % Normal [place] Comment on above: Order Comment: Speci men Type: BLOOD SPECIMENOrdering Facility: [facility] Address: [address] [place] [address] Performed By: #### 5 7021-8 ####[facility]ITAL[facility] [id number] [place] [address] [place] Lymphocytes (Bld) [#/Vol] 0.69 10*3/uL Low 1.00-4.00 [place] Comment on above: Order Comment: Speci men Type: BLOOD SPECIMENOrdering Facility: [facility] Address: [address] [place] [address] Performed By: #### 5 7021-8 ####[facility] [id number] [address] STATES [place] [facility] Lymphocytes/100 WBC (Bld) 25.6 % Normal [place] Comment on above: Order Comment: Speci men Type: BLOOD SPECIMENOrdering Facility: [facility] Address: [address] [place] [address] Performed By: #### 5 7021-8 ####[facility]OSPITALNCLIA [id number] [place] [address] [place] MCH (RBC) [Entitic mass] 29.5 pg Normal 26.0-34.0 [place] Comment on above: Order Comment: Speci men Type: BLOOD SPECIMENOrdering Facility: [facility] Address: [address] [place] [address] Performed By: #### 5 7021-8 ####[facility] [id number] [place] [address] [place] MCHC (RBC) [Mass/Vol] 32.6 g/dL Normal 30.5-36.0 [facility] Comment on above: Order Comment: Speci men Type: BLOOD SPECIMENOrdering Facility: [facility] Address: [address] [place] [address] Performed By: #### 5 7021-8 ####[facility] [id number] [place] [address] [place] MCV (RBC) [Entitic vol] 90.6 fL Normal 80.0-100.0 [place] Comment on above: Order Comment: Speci men Type: BLOOD SPECIMENOrdering Facility: [facility] Address: [address] [place] [address] Performed By: #### 5 7021-8 ####[facility] [id number] [place] [address] [place] Monocytes (Bld) [#/Vol] 0.22 10*3/uL Normal <0.87 [place] Comment on above: Order Comment: Speci men Type: BLOOD SPECIMENOrdering Facility: [facility] Address: [address] [place] [address] Performed By: #### 5 7021-8 ####[facility] [id number] [place] [address] [place] Monocytes/100 WBC (Bld) 8.1 % Normal [place] Comment on above: Order Comment: Speci men Type: BLOOD SPECIMENOrdering Facility: [facility] Address: [address] [place] [address] Performed By: #### 5 7021-8 ####[facility] [id number] [place] [address] [place] Neutrophils (Bld) [#/Vol] 1.62 10*3/uL Normal 1.45-7.50 [place] Comment on above: Order Comment: Speci men Type: BLOOD SPECIMENOrdering Facility: [facility] Address: [address] [place] [address] Performed By: #### 5 7021-8 ####[facility] SOUTHWNCLIA [id number] [place] [address] [place] Neutrophils/100 WBC (Bld) 60.0 % Normal [place] Comment on above: Order Comment: Speci men Type: BLOOD SPECIMENOrdering Facility: [facility] Address: [address] [place] [address] Performed By: #### 5 7021-8 ####[facility] [id number] [place] [address] [place] Nucleated RBC (Bld) [#/Vol] 10*3/uL Normal <0.01 [place] Comment on above: Order Comment: Speci men Type: BLOOD SPECIMENOrdering Facility: [facility] Address: [address] [place] [address] Performed By: #### 5 7021-8 ####[facility]ITALLIA [id number] [place] [address] [place] Nucleated RBC/100 WBC (Bld) [Ratio] 0.0 /100 WBC Normal [place] Comment on above: Order Comment: Speci men Type: BLOOD SPECIMENOrdering Facility: [facility] Address: [address] [place] [address] Performed By: #### 5 7021-8 ####[facility] [id number] [place] [address] [place] Platelet mean volume (Bld) [Entitic vol] 10.4 fL Normal 9.0-12.7 [place] Comment on above: Order Comment: Speci men Type: BLOOD SPECIMENOrdering Facility: [facility] Address: [address] [place] [address] Performed By: #### 5 7021-8 ####[facility] FRED SKYCECILERITOA [id number] [place] [address] [place] Platelets (Bld) [#/Vol] 86 10*3/uL Low 150-400 [place] Comment on above: Order Comment: Speci men Type: BLOOD SPECIMENOrdering Facility: [facility] Address: [address] [place] [address] Result Comment: No c lot detected. Performed By: #### 5 7021-8 ####[facility] SHOAIBGIOVANNIRITONoe [id number] [place] [address] [place] RBC (Bld) [#/Vol] 3.52 10*6/uL Low 3.90-5.20 [facility] Comment on above: Order Comment: Speci men Type: BLOOD SPECIMENOrdering Facility: [facility] Address: [address] [place] [address] Performed By: #### 5 7021-8 ####[facility] PRIYALUSBYCECILERITOA [id number] [place] [address] [place] WBC (Bld) [#/Vol] 2.70 10*3/uL Low 3.70-11.00 [facility] Comment on above: Order Comment: Speci men Type: BLOOD SPECIMENOrdering Facility: [facility] Address: [address] [place] [address] Performed By: #### 5 7021-8 ####[facility]ITALNCLIA [id number] [place] [address] [place] CNOVSPon 06-18-2024 CNOVSP Normal [place] Comprehensive metabolic 2000 panelon 06-18-2024 Albumin [Mass/Vol] 3.8 g/dL Low 3.9-4.9 [facility] Comment on above: Order Comment: Speci men Type: BLOOD SPECIMENOrdering Facility: [facility] Address: [address] [place] [address] Performed By: #### 2 4323-8 ####[facility] FRED MILLTOWNCLIA [id number] [place] [address] [place] ALP [Catalytic activity/Vol] 127 U/L High 34-123 [place] Comment on above: Order Comment: Speci men Type: BLOOD SPECIMENOrdering Facility: [facility] Address: [address] [place] [address] Performed By: #### 2 4323-8 ####[facility] FRED MILLTOWNCLIA [id number] [place] [address] [place] ALT [Catalytic activity/Vol] 17 U/L Normal 7-38 [place] Comment on above: Order Comment: Speci men Type: BLOOD SPECIMENOrdering Facility: [facility] Address: [address] [place] [address] Performed By: #### 2 4323-8 ####[facility] SOUTHWNCLIA [id number] [place] [address] [place] Anion gap [Moles/Vol] 9 mmol/L Normal 8-15 [facility] Comment on above: Order Comment: Speci men Type: BLOOD SPECIMENOrdering Facility: [facility] Address: [address] [place] [address] Performed By: #### 2 4323-8 ####[facility] FRED MILLTOWNCLIA [id number] [place] [address] [place] AST [Catalytic activity/Vol] 22 U/L Normal 13-35 [place] Comment on above: Order Comment: Speci men Type: BLOOD SPECIMENOrdering Facility: [facility] Address: [address] [place] [address] Performed By: #### 2 4323-8 ####[facility]OSPITALWNCLIA [id number] [place] [address] [place] Bilirubin [Mass/Vol] 0.8 mg/dL Normal 0.2-1.3 [facility] Comment on above: Order Comment: Speci men Type: BLOOD SPECIMENOrdering Facility: [facility] Address: [address] [place] [address] Performed By: #### 2 4323-8 ####[facility] SOUTHWAZLIA [id number] [place] [address] [place] Calcium [Mass/Vol] 9.4 mg/dL Normal 8.5-10.2 [facility] Comment on above: Order Comment: Speci men Type: BLOOD SPECIMENOrdering Facility: [facility] Address: [address] [place] [address] Performed By: #### 2 4323-8 ####[facility]IT[facility] [id number] [place] [address] [place] Chloride [Moles/Vol] 108 mmol/L High 98-107 [facility] Comment on above: Order Comment: Speci men Type: BLOOD SPECIMENOrdering Facility: [facility] Address: [address] [place] [address] Performed By: #### 2 4323-8 ####[facility] SOUTHWNCLIA [id number] [place] [address] [place] CO2 [Moles/Vol] 21 mmol/L Low 22-30 [place] Comment on above: Order Comment: Speci men Type: BLOOD SPECIMENOrdering Facility: [facility] Address: [address] [place] [address] Performed By: #### 2 4323-8 ####[facility]ITALNCLIA [id number] [place] [address] [place] Creatinine [Mass/Vol] 0.85 mg/dL Normal 0.58-0.96 [facility] Comment on above: Order Comment: Fatemeh de la paz Type: BLOOD SPECIMENOrdering Facility: [facility] Address: [address] [place] [address] Performed By: #### 2 4323-8 ####[facility] [id number] [place] [address] [place] Creatinine and Glomerular filtration rate.predicted panel (S/P/Bld) 74 mL/min/1.73m??? Normal >=60 [place] Comment on above: Order Comment: Fatemeh de la paz Type: BLOOD SPECIMENOrdering Facility: [facility] Address: [address] [place] [address] Result Comment: Sally mated Glomerular Filtration Rate (eGFR) is calculated using the 2020 CKD-EPI creatinine equation. This equation utilizes serum creatinine, sex, and age as parameters. The creatinine assay has traceable calibration to isotope dilution-mass spectrometry. Refer to KDIGO guidelines for clinical interpretation. In patients with unstable renal function, e.g. those with acute kidney injury, the eGFR may not accurately reflect actual GFR. Performed By: #### 2 4323-8 ####[facility] [id number] [place] [address] [place] Glucose [Mass/Vol] 151 mg/dL High 74-99 [facility] Comment on above: Order Comment: Fatemeh de la paz Type: BLOOD SPECIMENOrdering Facility: [facility] Address: [address] [place] [address] Result Comment: The [place] [employer] (ADA) provides guidance for cutoff values for fasting glucose and random glucose. The ADA defines fasting as no caloric intake for at least 8 hours. Fasting plasma glucose results between 100 to 125 mg/dL indicate increased risk for diabetes (prediabetes).Fasting plasma glucose results greater than or equal to 126 mg/dL meet the criteria for diagnosis of diabetes. In the absence of unequivocal hyperglycemia, results should be confirmed by repeat testing. In a patient with classic symptoms of hyperglycemia or hyperglycemic crisis, random plasma glucose results greater than or equal to 200 mg/dL meet the criteria for diagnosis of diabetes.Reference: Standards of Medical Care in Diabetes 2016, [place] [employer]. Diabetes Care. 2016.39(Suppl 1). Performed By: #### 2 4323-8 ####[facility] FRED POWERSHENNYLIA [id number] [place] [address] [place] Potassium [Moles/Vol] 3.6 mmol/L Low 3.7-5.1 [facility] Comment on above: Order Comment: Speci men Type: BLOOD SPECIMENOrdering Facility: [facility] Address: [address] [place] [address] Performed By: #### 2 4323-8 ####[facility] JAUNA [id number] [place] [address] [place] Protein [Mass/Vol] 5.7 g/dL Low 6.3-8.0 [facility] Comment on above: Order Comment: Speci men Type: BLOOD SPECIMENOrdering Facility: [facility] Address: [address] [place] [address] Performed By: #### 2 4323-8 ####[facility] JAUNA [id number] [place] [address] [place] Sodium [Moles/Vol] 138 mmol/L Normal 136-144 [facility] Comment on above: Order Comment: Speci men Type: BLOOD SPECIMENOrdering Facility: [facility] Address: [address] [place] [address] Performed By: #### 2 4323-8 ####[facility] REBECALIA [id number] [place] [address] [place] Urea nitrogen [Mass/Vol] 11 mg/dL Normal 7-21 [place] Comment on above: Order Comment: Speci men Type: BLOOD SPECIMENOrdering Facility: [facility] Address: [address] [place] [address] Performed By: #### 2 4323-8 ####[facility] [id number] [place] [address] [place] Ferritin SerPl-mCncon 2023 Ferritin [Mass/Vol] 79.0 ng/mL Normal 14.7-205.1 [facility] Comment on above: Order Comment: Speci men Type: BLOOD SPECIMENOrdering Facility: [facility] Address: [address] [place] [address] Performed By: #### 5 0190-8, 2275- ####[facility] LABCLIA [id number] [place] [address] [place] Iron and Iron binding capaci ty panelon 06-18-2024 Iron [Mass/Vol] 91 ug/dL Normal 41-186 [place] Comment on above: Order Comment: Speci men Type: BLOOD SPECIMENOrdering Facility: [facility] Address: [address] [place] [address] Performed By: #### 5 0190-8, 2275-12 ####[facility] LABCLIA [id number] [place] [address] [place] Iron binding capacity [Mass/Vol] 322 ug/dL Normal 232-386 [place] Comment on above: Order Comment: Speci men Type: BLOOD SPECIMENOrdering Facility: [facility] Address: [address] [place] [address] Performed By: #### 5 0190-8, 2275-12 ####[facility] LABCLIA [id number] [place] [id number] [place] Iron/TIBC [Molar ratio] 28.3 % Normal 15.0-57.0 [place] Comment on above: Order Comment: Speci men Type: BLOOD SPECIMENOrdering Facility: [facility] Address: [address] [place] [address] Performed By: #### 5 [id number] ####[facility] LABCLIA [id number] [facility] [id number] [address] [place] CNPNon 06-11-2024 CNPN Normal [place] CNOVon 06-10-2024 CNOV Normal [place] XR CHEST 2V FRONTAL/LATon XR CHEST 2V FRONTAL/LAT Normal [place] XR Chest PA and Lateralon IMPRESSION: Left-sided pleural effusion with associated lower lung atelectasis/pulmonary changes. Application Chemist: RICK Transcribe Date/Time: Jun 10 2024 1:11P Dictated by : JOSE JAY MD This examination was interpreted and the report reviewed and electronically signed by: JOSE JAY MD on Jun 10 2024 1:13PM [facility] DIVISION OF RADIOLOGY * * *Final Report* * * DATE OF EXAM: Jun 10 2024 1:12PM WOX [id number] - XR CHEST 2V FRONTAL/LAT / PROCEDURE REASON: multiple diagnoses * * * * Physician Interpretation * * * * EXAM TITLE: X-RAY CHEST 2V FRONTAL/LAT EXAM DATE/TIME: 06/10/2024 1:12 PM COMPARISON: Chest x-ray on 05/07/2024 CLINICAL INDICATION/HISTORY: Portal venous hypertension. RESULT: Lines, tubes, and devices: None. Lungs and pleura: Left-sided partially loculated small to moderate pleural effusion is demonstrated, with associated lower lung atelectasis/pulmonary infiltrates. The right lung is clear. No right-sided pleural effusion. No pneumothorax. Cardiomediastinal silhouette: Probably stable cardiomediastinal silhouette. Other: There are degenerative changes in the spine. DIVISION OF RADIOLOGY Provider, [facility] - 06/10/2024 * * *Final Report* * * DATE OF EXAM: Jun 10 2024 1:12PM WOX [id number] - XR CHEST 2V FRONTAL/LAT / PROCEDURE REASON: multiple diagnoses * * * * Physician Interpretation * * * * EXAM TITLE: X-RAY CHEST 2V FRONTAL/LAT EXAM DATE/TIME: 06/10/2024 1:12 PM COMPARISON: Chest x-ray on 05/07/2024 CLINICAL INDICATION/HISTORY: Portal venous hypertension. RESULT: Lines, tubes, and devices: None. Lungs and pleura: Left-sided partially loculated small to moderate pleural effusion is demonstrated, with associated lower lung atelectasis/pulmonary infiltrates. The right lung is clear. No right-sided pleural effusion. No pneumothorax. Cardiomediastinal silhouette: Probably stable cardiomediastinal silhouette. Other: There are degenerative changes in the spine. IMPRESSION IMPRESSION: Left-sided pleural effusion with associated lower lung atelectasis/pulmonary changes. Application Chemist: PSCB Transcribe Date/Time: Jun 10 2024 1:11P Dictated by : JOSE JAY MD This examination was interpreted and the report reviewed and electronically signed by: JOSE JAY MD on Jun 10 2024 1:13PM EST [facility] Radiology Study observation (narrative) [facility] XR Chest PA and LateralOrder ed By: [facility] Provider on 06-10-2024 [facility] CNPNon 06-02-2024 CNPN Telephone (AGGHWG) -- BARBARA MENESES ([id number]) 1955 F Date Time Provider Department 06/02/24 MERY HERNANDEZ AGGHWG During your visit today, we recorded the following information about you: Connor Vogt 06/02/2024 8:52 AM Signed LM For patient Referral for Right lower quadrant abdominal pain, Lump/Mass Dr. Oh Vogt Allergies As of Date: 06/02/2024 Noted Allergy Reaction MOLD 12/27/2017 16 - Unknown ADHESIVE TAPE (ROSINS) 11/06/2017 2 - Rash JANUVIA (SITAGLIPTIN) 04/30/2023 5 - Intolerance Comments: GI upset, aching of muscles, headaches LATEX 06/27/2017 9 - Itching Date Reviewed: 05/26/2024 Reviewed by: Moraima Sullivan MA - Fully Assessed Prescriptions as of 06/02/2024 - propranolol (INDERAL) 10 mg tablet Take 1 tablet by mouth three times a day. - buPROPion (WELLBUTRIN) 100 mg tablet Take 2 tablets to total 200 mg in the morning and 1 tablet in the evening, total of 300 mg a day - HYDROcodone-Acetaminophen (NORCO) 7.5-325 mg per tablet Take 1 tablet by mouth every 8 hours as needed for pain for up to 7 days. - furosemide (LASIX) 20 mg tablet Take 1 tablet by mouth once daily. - albuterol HFA (VENTOLIN HFA) 90 mcg/actuation inhaler Inhale 2 Puffs as instructed every 4 hours as needed for wheezing/shortness of breath. - spironolactone (ALDACTONE) 50 mg tablet Take 1.5 tablets by mouth once daily. - Blood-Glucose Meter,Continuous (FREESTYLE THEE 3 READER) [facility] Use to check blood sugar at least four (4) times daily. - Blood-Glucose Sensor (FREESTYLE THEE 3 SENSOR) louis Apply new sensor every fourteen (14) days to upper arm. - furosemide (LASIX) 40 mg tablet Take 1 tablet by mouth once daily. - potassium chloride (K-TAB) 10 mEq tablet Take 10 mEq by mouth once daily. - SYNTHROID 125 mcg tablet Take 1 tablet by mouth once daily. Take on empty stomach. For Thyroid - dulaglutide (TRULICITY) 0.75 mg/0.5 mL pen injector Inject 0.75 mg subcutaneously one time a week. Dx: Type 2 diabetes uncontrolled, Inject dose once per week. Discard Pen After - DULoxetine (CYMBALTA) 60 mg capsule TAKE 1 CAPSULE DAILY - ergocalciferol 50,000 unit capsule (VITAMIN D2, DRISDOL) Take 1 capsule by mouth one time a week. - calcium carbonate/vitamin D3 (CALCIUM 500 + D, D3, ORAL) Take 2 tablets by mouth once daily. - Lancets lancets Test blood sugar(s) 1 times daily. Dx: Type 2 DM - Uncontrolled E11.65 Insulin: No - blood sugar diagnostic (BLOOD GLUCOSE TEST) test strip Test blood sugar(s) 1 times daily. Dx: Type 2 DM - Uncontrolled E11.65 Insulin: No - Clobetasol Propionate (TEMOVATE) 0.05 % external solution Apply 1 application to affected area once daily as needed (scalp rash). - zolpidem (AMBIEN) 5 mg tablet Take 1 tablet by mouth at bedtime as needed for sedation for up to 30 days. - Magnesium Oxide-Mg Amino Acid Chelate (MAGNESIUM) 300 mg cap Take 300 mg by mouth once daily. - SUMAtriptan (IMITREX) 25 mg tablet TAKE 1 TABLET NEEDED FORMIGRAINE HEADACHE (SEE ADMINISTRATION INSTRUCTIONS) - omeprazole (PRILOSEC) 20 mg capsule Take 20 mg by mouth once daily. - cyanocobalamin (VITAMIN B-12) 1,000 mcg tab Take 1,000 mcg by mouth once daily. Problem List As Of Date 06/02/2024 Noted Resolved History of nephrectomy [Z90.5] 08/19/2015 Situational depression [F43.21] 08/19/2015 Diabetes mellitus type 2, controlled, without c*08/19/2015 08/29/2020 Elevated LFTs [R79.89] 08/31/2015 Dyslipidemia [E78.5] 04/04/2016 Controlled type 2 diabetes mellitus without com*04/04/2016 Acute right-sided low back pain with right-side*03/18/2017 08/29/2020 Albuminuria [R80.9] 03/18/2017 Panic attacks [F41.0] 03/18/2017 KRISTINA (generalized anxiety disorder) [F41.1] 03/18/2017 Subacromial bursitis of right shoulder joint [M*11/06/2017 Acute pain of right shoulder [M25.511] 11/06/2017 08/29/2020 Hypothyroidism, acquired [E03.9] 06/21/2018 Major depressive disorder with single episode, *06/21/2018 Diabetes mellitus type 2, uncontrolled, without*03/10/2019 08/29/2020 Class 2 obesity with body mass index (BMI) of 3*10/07/2019 Hypertension, essential [I10] 10/07/2019 JENN (obstructive sleep apnea) [G47.33] 10/07/2019 Fatigue [R53.83] 10/07/2019 Frequent headaches [R51.9] 08/31/2020 Vitamin D deficiency [E55.9] 08/31/2020 Diverticulitis [K57.92] 06/26/2021 Osteoarthritis of spine with radiculopathy, cer*07/10/2021 DDD (degenerative disc disease), cervical [M50.*07/10/2021 Anemia [D64.9] 01/08/2022 Internal hemorrhoids [K64.8] 01/08/2022 Rectal bleeding [K62.5] 01/08/2022 Irritable bowel syndrome with alternating bowel*01/08/2022 Thrombocytopenia (HCC) [D69.6] 05/07/2023 Iron deficiency anemia secondary to inadequate *05/07/2023 Iron malabsorption [K90.9] 05/07/2023 Osteopenia [M85.80] 08/28/2023 Esophageal varices determined by endoscopy (HCC*09/25/2023 Unc (more content not included)... Normal [facility] CNOVon 05-26-2024 CNOV Normal [place] CNOVSPon 05-26-2024 CNOVSP Normal [place] CNOVon 05-25-2024 CNOV [address] [place] [address] Abdomen and Pelvis W cont rast Alli 05-12-2024 IMPRESSION: 1. Mild ill-defined soft tissue nodularity within the right posterior abdomen/paracolic gutter as well as ill-defined soft tissue nodularity surrounding the inferior mesenteric artery. Possibility of carcinomatosis is raised. 2. Cirrhotic liver morphology. 3. Borderline splenomegaly. 4. Stable pulmonary nodules in the visualized lung bases. 5. Additional incidental findings as described. Application Chemist: [facility] Transcribe Date/Time: May 12 2024 2:42P Dictated by : BEATRIZ BUSH MD This examination was interpreted and the report reviewed and electronically signed by: BEATRIZ BUSH MD on May 12 2024 3:02PM [facility] DIVISION OF RADIOLOGY * * *Final Report* * * DATE OF EXAM: May 12 2024 2:37PM [facility] 0530 - CT ABD/PEL W IVCON / PROCEDURE REASON: multiple diagnoses * * * * Physician Interpretation * * * * EXAMINATION: CT ABDOMEN AND PELVIS WITH IV CONTRAST CLINICAL HISTORY: Right lower quadrant pain. TECHNIQUE: CT of the abdomen and pelvis was performed using standard technique, scanning from just above the dome of the diaphragm to the symphysis pubis. MQ: CTAP_3 Contrast: IV: 100 ml of Omnipaque 350 Oral: 10 ml of Omni 240 10-25ml diluted with water CT Radiation dose: Integrated Dose-length product (DLP) for this visit = 682 mGy*cm. CT Dose Reduction Employed: Automated exposure control(AEC) and iterative recon COMPARISON: Correlation made to CT chest dated 01/14/[address] flank dated 08/02/2016 RESULT: Liver: Subcentimeter hypodense too small to characterize lesion in the hepatic dome (5, 24). Prominence of the caudate lobe with mildly nodular hepatic contour raising suspicion for cirrhosis. Biliary: No bile duct dilation. Questioned punctate gallstone in the gallbladder neck. No gallbladder wall thickening or pericholecystic free fluid. Spleen: Dystrophic calcification within the spleen. Borderline splenomegaly with the spleen measuring up to 13 cm in craniocaudad dimension. Pancreas: No mass or duct dilation. Adrenals: No mass. Kidneys: Status post right nephrectomy. Couple of nonobstructing left renal calculi measuring up to 3 to 4 mm in size. No suspicious left renal lesion within the limits of the cortical medullary phase of enhancement. No hydronephrosis. GI tract: No dilation or wall thickening. Colonic diverticulosis without evidence of complications. Normal appendix. Lymph nodes/Mesentery/Peritoneum /Retroperitoneum: There is mild ill-defined soft tissue nodularity within the right posterior abdomen/paracolic gutter as well as ill-defined soft tissue nodularity surrounding the inferior mesenteric artery (with otherwise remains patent). The soft tissue nodularity is most evident surrounding the inferior mesenteric artery where it measures up to approximately 2.0 x 3.0 cm (5, 87). There is also mild nodularity in the herniated fat within a small fat-containing paraumbilical hernia. Vasculature: Scattered atherosclerotic calcifications of the vasculature. Patent mesenteric vasculature. Pelvis: Bladder normal in appearance. Status post hysterectomy. Bones/Soft Tissues: Degenerative changes in the spine. Fat-containing umbilical hernia as noted above. Lower thorax: Diffuse stable pulmonary nodules in the bilateral visualized lung bases when compared with December 2023 CT chest. For example, stable 5 mm right lower lobe pulmonary nodule (5, 5). Stable 3 mm lingular pulmonary nodule (5, 9). A few additional stable less than 6 mm pulmonary nodules. Localizer images: No additional findings. DIVISION OF RADIOLOGY Provider, Marley [facility] - 05/12/2024 * * *Final Report* * * DATE OF EXAM: May 12 2024 2:37PM [facility] 0530 - CT ABD/PEL W IVCON / PROCEDURE REASON: multiple diagnoses * * * * Physician Interpretation * * * * EXAMINATION: CT ABDOMEN AND PELVIS WITH IV CONTRAST CLINICAL HISTORY: Right lower quadrant pain. TECHNIQUE: CT of the abdomen and pelvis was performed using standard technique, scanning from just above the dome of the diaphragm to the symphysis pubis. MQ: CTAP_3 Contrast: IV: 100 ml of Omnipaque 350 Oral: 10 ml of Omni 240 10-25ml diluted with water CT Radiation dose: Integrated Dose-length product (DLP) for this visit = 682 mGy*cm. CT Dose Reduction Employed: Automated exposure control(AEC) and iterative recon COMPARISON: Correlation made to CT chest dated 01/14/[address] flank dated 08/02/2016 RESULT: Liver: Subcentimeter hypodense too small to characterize lesion in the hepatic dome (5, 24). Prominence of the caudate lobe with mildly nodular hepatic contour raising suspicion for cirrhosis. Biliary: No bile duct dilation. Questioned punctate gallstone in the gallbladder neck. No gallbladder wall thickening or pericholecystic free fluid. Spleen: Dystrophic calcification within the spleen. Borderline splenomegaly with the spleen measuring up to 13 cm in craniocaudad dimension. Pancreas: No mass or duct dilation. Adrenals: No mass. Kidneys: Status post right nephrectomy. Couple of nonobstructing left renal calculi measuring up to 3 to 4 mm in size. No suspicious left renal lesion within the limits of the cortical medullary phase of enhancement. No hydronephrosis. GI tract: No dilation or wall thickening. Colonic diverticulosis without evidence of complications. Normal appendix. Lymph nodes/Mesentery/Peritoneum /Retroperitoneum: There is mild ill-defined soft tissue nodularity within the right posterior abdomen/paracolic gutter as well as ill-defined soft tissue nodularity surrounding the inferior mesenteric artery (with otherwise remains patent). The soft tissue nodularity is most evident surrounding the inferior mesenteric artery where it measures up to approximately 2.0 x 3.0 cm (5, 87). There is also mild nodularity in the herniated fat within a small fat-containing paraumbilical hernia. Vasculature: Scattered atherosclerotic calcifications of the vasculature. Patent mesenteric vasculature. Pelvis: Bladder normal in appearance. Status post hysterectomy. Bones/Soft Tissues: Degenerative changes in the spine. Fat-containing umbilical hernia as noted above. Lower thorax: Diffuse stable pulmonary nodules in the bilateral visualized lung bases when compared with December 2023 CT chest. For example, stable 5 mm right lower lobe pulmonary nodule (5, 5). Stable 3 mm lingular pulmonary nodule (5, 9). A few additional stable less than 6 mm pulmonary nodules. Localizer images: No additional findings. IMPRESSION IMPRESSION: 1. Mild ill-defined soft tissue nodularity within the right posterior abdomen/paracolic gutter as well as ill-defined soft tissue nodularity surrounding the inferior mesenteric artery. Possibility of carcinomatosis is raised. 2. Cirrhotic liver morphology. 3. Borderline splenomegaly. 4. Stable pulmonary nodules in the visualized lung bases. 5. Additional incidental findings as described. Application Chemist: [facility] Transcribe Date/Time: May 12 2024 2:42P Dictated by : BEATRIZ BUSH MD This examination was interpreted and the report reviewed and electronically signed by: BEATRIZ BUSH MD on May 12 2024 3:02PM [facility] Radiology Study observation (narrative) [facility] CT Abdomen and Pelvis W cont rast IVOrdered By: Ccf Provider on 05-12-2024 [facility] XR Ribs - left Views and Geni st PAon 05-07-2024 IMPRESSION: No acute left rib fracture identified. Application Chemist: [facility] Transcribe Date/Time: May 07 2024 2:54P Dictated by : JOSE JAY MD This examination was interpreted and the report reviewed and electronically signed by: JOSE JAY MD on May 07 2024 3:02PM [facility] DIVISION OF RADIOLOGY * * *Final Report* * * DATE OF EXAM: May 07 2024 2:50PM WOX [id number] - XR RIB/CHST 3V AP RIB/OBL/CHST L / PROCEDURE REASON: Rib pain * * * * Physician Interpretation * * * * XR RIB/CHST 3V AP RIB/OBL/CHST L EXAM DATE/TIME: 05/07/2024 2:50 PM COMPARISON: None. CLINICAL INDICATION/HISTORY: Left rib pain TECHNIQUE: AP views centered high and low and oblique view of left ribs are presented for interpretation. PA view of the chest is also present. FINDINGS: There is no evidence of acute left rib fracture. There is no pneumothorax or pleural effusion. The underlying visualized lungs appear normal. DIVISION OF RADIOLOGY Provider, Melinda [facility] - 05/07/2024 * * *Final Report* * * DATE OF EXAM: May 07 2024 2:50PM WOX [id number] - XR RIB/CHST 3V AP RIB/OBL/CHST L / PROCEDURE REASON: Rib pain * * * * Physician Interpretation * * * * XR RIB/CHST 3V AP RIB/OBL/CHST L EXAM DATE/TIME: 05/07/2024 2:50 PM COMPARISON: None. CLINICAL INDICATION/HISTORY: Left rib pain TECHNIQUE: AP views centered high and low and oblique view of left ribs are presented for interpretation. PA view of the chest is also present. FINDINGS: There is no evidence of acute left rib fracture. There is no pneumothorax or pleural effusion. The underlying visualized lungs appear normal. IMPRESSION IMPRESSION: No acute left rib fracture identified. Application Chemist: PSC[facility] Transcribe Date/Time: May 07 2024 2:54P Dictated by : JOSE JAY MD This examination was interpreted and the report reviewed and electronically signed by: JOSE JAY MD on May 07 2024 3:02PM EST [facility] Radiology Study observation (narrative) [facility] XR Ribs - left Views and Geni st PAOrdered By: Ccf Provider on 05-07-2024 [facility] Comprehensive metabolic 2000 panelon 04-17-2024 Albumin [Mass/Vol] 3.9 g/dL 3.9 - 4.9 g/dL [facility] ALP [Catalytic activity/Vol] 112 U/L 34 - 123 U/L [facility] ALT [Catalytic activity/Vol] 18 U/L 7 - 38 U/L [facility] Anion gap [Moles/Vol] 12 mmol/L 8 - 15 mmol/L [facility] AST [Catalytic activity/Vol] 31 U/L 13 - 35 U/L [facility] Bilirubin [Mass/Vol] 0.5 mg/dL 0.2 - 1 .3 mg/dL [facility] Calcium [Mass/Vol] 9.6 mg/dL 8.5 - 10. 2 mg/dL [facility] Chloride [Moles/Vol] 104 mmol/L 98 - 10 7 mmol/L [facility] CO2 [Moles/Vol] 23 mmol/L 22 - 30 mmol/L [facility] Creatinine [Mass/Vol] 0.97 mg/dL High 0.58 - 0.96 mg/dL [facility] GFR/1.73 sq M.predicted among non-blacks MDRD (S/P/Bld) [Vol rate/Area] 63 mL/min/{1.73_m2} - PINF [facility] Comment on above: Estimated Glomerular Filtration Rate (eGFR) is calculated using the 2020 CKD-EPI creatinine equation. This equation utilizes serum creatinine, sex, and age as parameters. The creatinine assay has traceable calibration to isotope dilution-mass spectrometry. Refer to KDIGO guidelines for clinical interpretation. In patients with unstable renal function, e.g. those with acute kidney injury, the eGFR may not accurately reflect actual GFR. Glucose [Mass/Vol] 158 mg/dL High 74 - 99 mg/dL [facility] Comment on above: The [place] Di[employer] Association (ADA) provides guidance for cutoff values for fasting glucose and random glucose. The ADA defines fasting as no caloric intake for at least 8 hours. Fasting plasma glucose results between 100 to 125 mg/dL indicate increased risk for diabetes (prediabetes). Fasting plasma glucose results greater than or equal to 126 mg/dL meet the criteria for diagnosis of diabetes. In the absence of unequivocal hyperglycemia, results should be confirmed by repeat testing. In a patient with classic symptoms of hyperglycemia or hyperglycemic crisis, random plasma glucose results greater than or equal to 200 mg/dL meet the criteria for diagnosis of diabetes. Reference: Standards of Medical Care in Diabetes 2016, [place] [employer]. Diabetes Care. 2016.39(Suppl 1). Interpretation and review of laboratory results Abnormal [facility] Potassium [Moles/Vol] 3.6 mmol/L Low 3.7 - 5.1 mmol/L [facility] Protein [Mass/Vol] 6.0 g/dL Low 6.3 - 8.0 g/dL [facility] Sodium [Moles/Vol] 139 mmol/L 136 - 144 mmol/L [facility] Urea nitrogen [Mass/Vol] 20 mg/dL 7 - 21 mg/dL [facility] XR Chest PA and Lateralon IMPRESSION: No acute radiographic abnormality. Application Chemist: RICK Transcribe Date/Time: Apr 16 2024 3:31P Dictated by : JOSE JAY MD This examination was interpreted and the report reviewed and electronically signed by: JOSE JAY MD on Apr 16 2024 3:32PM EST DIVISION OF RADIOLOGY * * *Final Report* * * DATE OF EXAM: Apr 16 2024 3:09PM WOX [id number] - XR CHEST 2V FRONTAL/LAT / PROCEDURE REASON: multiple diagnoses * * * * Physician Interpretation * * * * EXAMINATION: CHEST RADIOGRAPH (2 VIEW FRONTAL & LATERAL) CLINICAL HISTORY: History of pleural effusion Portal venous hypertension (HCC) MQ: XC2_6 EXAM DATE/TIME: 04/16/2024 3:09 PM COMPARISON: Chest x-ray on 03/31/2024 RESULT: Lines, tubes, and devices: None. Lungs and pleura: No consolidation. No lung mass. No pleural effusion. No pneumothorax. Cardiomediastinal silhouette: Normal cardiomediastinal silhouette. Bones and soft tissues: The spine shows the degenerative changes. DIVISION OF RADIOLOGY Provider, Mel[facility] - 04/16/2024 * * *Final Report* * * DATE OF EXAM: Apr 16 2024 3:09PM WOX [id number] - XR CHEST 2V FRONTAL/LAT / PROCEDURE REASON: multiple diagnoses * * * * Physician Interpretation * * * * EXAMINATION: CHEST RADIOGRAPH (2 VIEW FRONTAL & LATERAL) CLINICAL HISTORY: History of pleural effusion Portal venous hypertension (HCC) MQ: XC2_6 EXAM DATE/TIME: 04/16/2024 3:09 PM COMPARISON: Chest x-ray on 03/31/2024 RESULT: Lines, tubes, and devices: None. Lungs and pleura: No consolidation. No lung mass. No pleural effusion. No pneumothorax. Cardiomediastinal silhouette: Normal cardiomediastinal silhouette. Bones and soft tissues: The spine shows the degenerative changes. IMPRESSION IMPRESSION: No acute radiographic abnormality. Application Chemist: [facility] Transcribe Date/Time: Apr 16 2024 3:31P Dictated by : JOSE JAY MD This examination was interpreted and the report reviewed and electronically signed by: JOSE JAY MD on Apr 16 2024 3:32PM EST [facility] Radiology Study observation (narrative) [facility] XR Chest PA and LateralOrder ed By: Ccf Provider on 04-16-2024 [facility] ABD Limited w/ Elastographyo n 04-10-2024 ABD Limited w/ Elastography Normal [facility] XR Chest PA and Lateralon IMPRESSION: Lines, tubes, and devices: None. Lungs and pleura: Significant interval increase in now large LEFT pleural effusion with dense heterogeneous airspace opacification. Right lung is grossly clear. No pneumothorax identified. Cardiomediastinal silhouette: Obscured due to opacification of the LEFT hemithorax. Bones and soft tissues: Bulky flowing ossifications anterior aspect of multiple mid-lower thoracic vertebral bodies. Application Chemist: [facility] Transcribe Date/Time: Mar 31 2024 12:08P Dictated by : DAMON WARD DO This examination was interpreted and the report reviewed and electronically signed by: DAMON WARD DO on Mar 31 2024 12:10PM [facility] DIVISION OF RADIOLOGY * * *Final Report* * * DATE OF EXAM: Mar 31 2024 11:54AM WOX [id number] - XR CHEST 2V FRONTAL/LAT / PROCEDURE REASON: Pleural effusion * * * * Physician Interpretation * * * * EXAMINATION: CHEST RADIOGRAPH (2 VIEW FRONTAL & LATERAL) PATIENT/TECHNOLOGIST PROVIDED HISTORY: was in hospital mid February and was admitted and drained lung follow up no hx of any disease with lung CLINICAL HISTORY: 69 years old Female with Pleural effusion MQ: XC2_6 EXAM DATE/TIME: 03/31/2024 11:54 AM COMPARISON: Chest radiograph(s) dated 12/30/2023, CT chest 01/14/2024 RESULT/ DIVISION OF RADIOLOGY Provider, Marley [facility] - 03/31/2024 * * *Final Report* * * DATE OF EXAM: Mar 31 2024 11:54AM WOX [id number] - XR CHEST 2V FRONTAL/LAT / PROCEDURE REASON: Pleural effusion * * * * Physician Interpretation * * * * EXAMINATION: CHEST RADIOGRAPH (2 VIEW FRONTAL & LATERAL) PATIENT/TECHNOLOGIST PROVIDED HISTORY: was in hospital mid February and was admitted and drained lung follow up no hx of any disease with lung CLINICAL HISTORY: 69 years old Female with Pleural effusion MQ: XC2_6 EXAM DATE/TIME: 03/31/2024 11:54 AM COMPARISON: Chest radiograph(s) dated 12/30/2023, CT chest 01/14/2024 RESULT/ IMPRESSION IMPRESSION: Lines, tubes, and devices: None. Lungs and pleura: Significant interval increase in now large LEFT pleural effusion with dense heterogeneous airspace opacification. Right lung is grossly clear. No pneumothorax identified. Cardiomediastinal silhouette: Obscured due to opacification of the LEFT hemithorax. Bones and soft tissues: Bulky flowing ossifications anterior aspect of multiple mid-lower thoracic vertebral bodies. Application Chemist: PSCB Transcribe Date/Time: Mar 31 2024 12:08P Dictated by : DAMON WARD DO This examination was interpreted and the report reviewed and electronically signed by: DAMON WARD DO on Mar 31 2024 12:10PM [facility] Radiology Study observation (narrative) [facility] XR Chest PA and LateralOrder ed By: Ccf Provider on 03-31-2024 [facility] CBC W Auto Differential pane l (Bld)on 03-05-2024 Basophils (Bld) [#/Vol] [facility] Basophils/100 WBC (Bld) 0.4 % [facility] Differential cell count method Nom (Bld) Auto [facility] Eosinophils (Bld) [#/Vol] 0.16 10*3/uL [facility] Eosinophils/100 WBC (Bld) 3.6 % [facility] Erythrocyte distribution width (RBC) [Ratio] 22.5 % High 11.5 - 15.0 % [facility] Hematocrit (Bld) [Volume fraction] 30.8 % Low 36.0 - 46.0 % [facility] Hemoglobin (Bld) [Mass/Vol] 9.1 g/dL Low 11.5 - 15.5 g/dL [facility] Immature granulocytes (Bld) [#/Vol] [facility] Immature granulocytes/100 WBC (Bld) 0.2 % [facility] Interpretation and review of laboratory results Abnormal [facility] Lymphocytes (Bld) [#/Vol] 0.85 10*3/uL Low [facility] Lymphocytes/100 WBC (Bld) 19.1 % [facility] MCH (RBC) [Entitic mass] 24.6 pg Low 26.0 - 34.0 pg [facility] MCHC (RBC) [Mass/Vol] 29.5 g/dL Low 30.5 - 36.0 g/dL [facility] MCV (RBC) [Entitic vol] 83.2 fL 80.0 - 100.0 fL [facility] Monocytes (Bld) [#/Vol] 0.48 10*3/uL [facility] Monocytes/100 WBC (Bld) 10.8 % [facility] Neutrophils (Bld) [#/Vol] 2.94 10*3/uL [facility] Neutrophils/100 WBC (Bld) 65.9 % [facility]) [facility] Nucleated RBC/100 WBC (Bld) [Ratio] 0.0 % /100 WBC [facility] Platelet mean volume (Bld) [Entitic vol] 10.3 fL 9.0 - 12.7 fL [facility] Platelets (Bld) [#/Vol] 119 10*3/uL Low [facility] RBC (Bld) [#/Vol] 3.70 10*6/uL Low 3.90 - 5.20 m/uL [facility] WBC (Bld) [#/Vol] 4.46 10*3/uL [facility] FERRITINon 02-19-2024 Ferritin [Mass/Vol] 16.8 ng/mL 14.7 - 205.1 ng/mL [facility] Ferritin [Mass/Vol]on 2023 Interpretation and review of laboratory results Normal [facility] Iron and Iron binding capaci ty panelon 02-19-2024 Interpretation and review of laboratory results Abnormal [facility] Iron [Mass/Vol] 19 ug/dL Low 41 - 186 ug/dL [facility] Iron binding capacity [Mass/Vol] 341 ug/dL 232 - 386 ug/dL [facility] Iron/TIBC [Molar ratio] 5.6 % Low 15.0 - 57.0 % [facility] CBC W Auto Differential pane l (Bld)on 02-18-2024 Basophils (Bld) [#/Vol] 0.04 10*3/uL [facility] Basophils/100 WBC (Bld) 0.7 % [facility] Differential cell count method Nom (Bld) Auto [facility] Eosinophils (Bld) [#/Vol] 0.28 10*3/uL [facility] Eosinophils/100 WBC (Bld) 5.0 % [facility] Erythrocyte distribution width (RBC) [Ratio] 22.1 % High 11.5 - 15.0 % [facility] Hematocrit (Bld) [Volume fraction] 23.3 % Low 36.0 - 46.0 % [facility] Hemoglobin (Bld) [Mass/Vol] 6.6 g/dL Low 11.5 - 15.5 g/dL [facility] Immature granulocytes (Bld) [#/Vol] [facility] Immature granulocytes/100 WBC (Bld) 0.2 % [facility] Interpretation and review of laboratory results Abnormal [facility] Lymphocytes (Bld) [#/Vol] 1.39 10*3/uL [facility] Lymphocytes/100 WBC (Bld) 24.6 % [facility] MCH (RBC) [Entitic mass] 22.0 pg Low 26.0 - 34.0 pg [facility] MCHC (RBC) [Mass/Vol] 28.3 g/dL Low 30.5 - 36.0 g/dL [facility] MCV (RBC) [Entitic vol] 77.7 fL Low 80.0 - 100.0 fL [facility] Monocytes (Bld) [#/Vol] 0.46 10*3/uL [facility] Monocytes/100 WBC (Bld) 8.2 % [facility] Neutrophils (Bld) [#/Vol] 3.46 10*3/uL [facility] Neutrophils/100 WBC (Bld) 61.3 % [facility] Nucleated RBC (Bld) [#/Vol] [facility] Nucleated RBC/100 WBC (Bld) [Ratio] 0.0 % /100 WBC [facility] Platelet mean volume (Bld) [Entitic vol] 10.8 fL 9.0 - 12.7 fL [facility] Platelets (Bld) [#/Vol] 136 10*3/uL Low [facility] RBC (Bld) [#/Vol] 3.00 10*6/uL Low 3.90 - 5.20 m/uL [facility] WBC (Bld) [#/Vol] 5.64 10*3/uL [facility] XR Chest PA and Lateralon IMPRESSION: Small bilateral pleural effusions Application Chemist: PSCB Transcribe Date/Time: Dec 30 2023 4:47P Dictated by : BEATRIZ BUSH MD This examination was interpreted and the report reviewed and electronically signed by: BEATRIZ BUSH MD on Dec 30 2023 4:47PM [facility] DIVISION OF RADIOLOGY * * *Final Report* * * DATE OF EXAM: Dec 30 2023 3:15PM WOX 5291 - XR CHEST 2V FRONTAL/LAT / PROCEDURE REASON: multiple diagnoses * * * * Physician Interpretation * * * * EXAMINATION: CHEST RADIOGRAPH (2 VIEW FRONTAL & LATERAL) CLINICAL HISTORY: Exertional shortness of breath Hypertension, essential MQ: XC2_6 EXAM DATE/TIME: 12/30/2023 3:15 PM COMPARISON: No relevant prior studies available. RESULT: Lines, tubes, and devices: None. Lungs and pleura: No consolidation. Small bilateral pleural effusions. No pneumothorax. Cardiomediastinal silhouette: Normal cardiomediastinal silhouette. Bones and soft tissues: Degenerative changes. DIVISION OF RADIOLOGY Provider, [facility] - 12/30/2023 * * *Final Report* * * DATE OF EXAM: Dec 30 2023 3:15PM WOX 5291 - XR CHEST 2V FRONTAL/LAT / PROCEDURE REASON: multiple diagnoses * * * * Physician Interpretation * * * * EXAMINATION: CHEST RADIOGRAPH (2 VIEW FRONTAL & LATERAL) CLINICAL HISTORY: Exertional shortness of breath Hypertension, essential MQ: XC2_6 EXAM DATE/TIME: 12/30/2023 3:15 PM COMPARISON: No relevant prior studies available. RESULT: Lines, tubes, and devices: None. Lungs and pleura: No consolidation. Small bilateral pleural effusions. No pneumothorax. Cardiomediastinal silhouette: Normal cardiomediastinal silhouette. Bones and soft tissues: Degenerative changes. IMPRESSION IMPRESSION: Small bilateral pleural effusions Application Chemist: RICK Transcribe Date/Time: Dec 30 2023 4:47P Dictated by : BEATRIZ BUSH MD This examination was interpreted and the report reviewed and electronically signed by: BEATRIZ BUSH MD on Dec 30 2023 4:47PM EST [facility] Radiology Study observation (narrative) [facility] XR Chest PA and LateralOrder ed By: Ccf Provider on 12-30-2023 [facility] UA DIP, URINE (POC)on 2022 BILIRUBIN UA (POCT) Negative Negative [facility] CLARITY UA (POCT) Clear [facility] COLOR UA (POCT) Yellow [facility] GLUCOSE UA (POCT) 500 mg/dL Abnormal Negative mg/dL [facility] Hemoglobin Ql (U) Trace-intact Abnormal Negative [facility] KETONE UA (POCT) Negative Negative mg/dL [facility] LEUKOCYTES [facility] (POCT) Negative [facility] NITRITE UA (POCT) Negative Negative [facility] PH UA (POCT) 7.0 4.5 - 8.0 [facility] Protein Ql (U) Negative Negative mg/dL [facility] SPECIFIC GRAVITY UA (POCT) 1.015 1.005 - 1.030 [facility] UROBILINOGEN UA (POCT) 0.2 E.U./dL Lucie l E.U./dL [facility] CBC W Auto Differential pane l (Bld)on 05-07-2023 Basophils (Bld) [#/Vol] 0.03 10*3/uL <0.11 k/uL [facility] Basophils/100 WBC (Bld) 0.7 % [facility] Differential cell count method Nom (Bld) Auto [facility] Eosinophils (Bld) [#/Vol] 0.41 10*3/uL <0.46 k/uL [facility] Eosinophils/100 WBC (Bld) 9.4 % [facility] Erythrocyte distribution width (RBC) [Ratio] 25.2 % High 11.5 - 15.0 % [facility] Hematocrit (Bld) [Volume fraction] 38.5 % 36.0 - 46.0 % [facility] Hemoglobin (Bld) [Mass/Vol] 11.8 g/dL 11.5 - 15.5 g/dL [facility] Immature granulocytes (Bld) [#/Vol] <0.10 k/uL [facility] Immature granulocytes/100 WBC (Bld) 0.2 % [facility] Lymphocytes (Bld) [#/Vol] 0.99 10*3/uL Low 1.00 - 4.00 k/uL [facility] Lymphocytes/100 WBC (Bld) 22.7 % [facility] MCH (RBC) [Entitic mass] 25.3 pg Low 26.0 - 34.0 pg [facility] MCHC (RBC) [Mass/Vol] 30.6 g/dL 30.5 - 36.0 g/dL [facility] MCV (RBC) [Entitic vol] 82.4 fL 80.0 - 100.0 fL [facility] Monocytes (Bld) [#/Vol] 0.37 10*3/uL <0.87 k/uL [facility] Monocytes/100 WBC (Bld) 8.5 % [facility] Neutrophils (Bld) [#/Vol] 2.55 10*3/uL 1.45 - 7.50 k/uL [facility] Neutrophils/100 WBC (Bld) 58.5 % [facility] Nucleated RBC (Bld) [#/Vol] <0.01 k/uL [facility] Nucleated RBC/100 WBC (Bld) [Ratio] 0.0 /100 WBC [facility] Platelet mean volume (Bld) [Entitic vol] 10.4 fL 9.0 - 12.7 fL [facility] Platelets (Bld) [#/Vol] 96 10*3/uL Low 150 - 400 k/uL [facility] RBC (Bld) [#/Vol] 4.67 10*6/uL 3.90 - 5.20 m/uL [facility] WBC (Bld) [#/Vol] 4.36 10*3/uL 3.70 - 11.00 k/uL [facility] FERRITIN BLDon 05-07-2023 Ferritin [Mass/Vol] 38.9 ng/mL 14.7 - 205.1 ng/mL [facility] Iron and Iron binding capaci ty panelon 05-07-2023 Iron [Mass/Vol] 65 ug/dL 41 - 186 ug/dL [facility] Iron binding capacity [Mass/Vol] 381 ug/dL 232 - 386 ug/dL [facility] Iron/TIBC [Molar ratio] 17.1 % 15.0 - 57.0 % [facility] No Panel Informationon 03-07 [facility] Comprehensive metabolic 2000 panelon 03-06-2023 Albumin [Mass/Vol] 4.3 g/dL 3.9 - 4.9 g/dL [facility] ALP [Catalytic activity/Vol] 112 U/L 34 - 123 U/L [facility] ALT [Catalytic activity/Vol] 20 U/L 7 - 38 U/L [facility] Anion gap [Moles/Vol] 13 mmol/L 9 - 18 mmol/L [facility] AST [Catalytic activity/Vol] 22 U/L 13 - 35 U/L [facility] Bilirubin [Mass/Vol] 0.5 mg/dL 0.2 - 1 .3 mg/dL [facility] Calcium [Mass/Vol] 10.0 mg/dL 8.5 - 10. 2 mg/dL [facility] Chloride [Moles/Vol] 106 mmol/L High 97 - 10 5 mmol/L [facility] CO2 [Moles/Vol] 22 mmol/L 22 - 30 mmol/L [facility] Creatinine [Mass/Vol] 0.78 mg/dL 0.58 - 0.96 mg/dL [facility] Estimated Glomerular Filtration Rate 82 mL/min/1.73m >=60 mL/min/1.7 3m [facility] Glucose [Mass/Vol] 184 mg/dL High 74 - 99 mg/dL [facility] Potassium [Moles/Vol] 3.7 mmol/L 3.7 - 5.1 mmol/L [facility] Protein [Mass/Vol] 6.0 g/dL Low 6.3 - 8.0 g/dL [facility] Sodium [Moles/Vol] 141 mmol/L 136 - 144 mmol/L [facility] Urea nitrogen [Mass/Vol] 13 mg/dL 7 - 21 mg/dL [facility] Iron and Iron binding capaci ty panelon 03-06-2023 Iron [Mass/Vol] 20 ug/dL Low 41 - 186 ug/dL [facility] Iron binding capacity [Mass/Vol] 391 ug/dL High 232 - 386 ug/dL [facility] Iron/TIBC [Molar ratio] 5.1 % Low 15.0 - 57.0 % [facility] VITAMIN B12 BLOODon 03-06-20 23 Cobalamin (Vitamin B12) [Mass/Vol] 429 pg/mL 232 - 1,245 pg/mL [facility] CBC W Auto Differential pane l (Bld)on 03-05-2023 Basophils (Bld) [#/Vol] <0.11 k/uL [facility] Basophils/100 WBC (Bld) 0.3 % [facility] Differential cell count method Nom (Bld) Auto [facility] Eosinophils (Bld) [#/Vol] 0.18 10*3/uL <0.46 k/uL [facility] Eosinophils/100 WBC (Bld) 4.8 % [facility] Erythrocyte distribution width (RBC) [Ratio] 18.1 % High 11.5 - 15.0 % [facility] Hematocrit (Bld) [Volume fraction] 32.8 % Low 36.0 - 46.0 % [facility] Hemoglobin (Bld) [Mass/Vol] 9.6 g/dL Low 11.5 - 15.5 g/dL [facility] Immature granulocytes (Bld) [#/Vol] <0.10 k/uL [facility] Immature granulocytes/100 WBC (Bld) 0.0 % [facility] Lymphocytes (Bld) [#/Vol] 0.92 10*3/uL Low 1.00 - 4.00 k/uL [facility] Lymphocytes/100 WBC (Bld) 24.5 % [facility] MCH (RBC) [Entitic mass] 23.0 pg Low 26.0 - 34.0 pg [facility] MCHC (RBC) [Mass/Vol] 29.3 g/dL Low 30.5 - 36.0 g/dL [facility] MCV (RBC) [Entitic vol] 78.5 fL Low 80.0 - 100.0 fL [facility] Monocytes (Bld) [#/Vol] 0.30 10*3/uL <0.87 k/uL [facility] Monocytes/100 WBC (Bld) 8.0 % [facility] Neutrophils (Bld) [#/Vol] 2.35 10*3/uL 1.45 - 7.50 k/uL [facility] Neutrophils/100 WBC (Bld) 62.4 % [facility] Nucleated RBC (Bld) [#/Vol] <0.01 k/uL [facility] Nucleated RBC/100 WBC (Bld) [Ratio] 0.0 /100 WBC [facility] Platelet mean volume (Bld) [Entitic vol] [facility] Platelets (Bld) [#/Vol] 114 10*3/uL Low 150 - 400 k/uL [facility] RBC (Bld) [#/Vol] 4.18 10*6/uL 3.90 - 5.20 m/uL [facility] WBC (Bld) [#/Vol] 3.76 10*3/uL 3.70 - 11.00 k/uL [facility] UA DIP, URINE (POC)on 2022 BILIRUBIN UA (POCT) Negative Negative [facility] CLARITY UA (POCT) Slightly Cloudy Cl [facility] COLOR UA (POCT) Other [facility] GLUCOSE UA (POCT) >=1000 Abnormal Negative mg/dL [facility] HEMOGLOBIN/BLOOD UA (POCT) Negative Negative [facility] KETONE UA (POCT) Negative Negative mg/dL [facility] LEUKOCYTES UA (POCT) Trace Abnormal Negative [facility] NITRITE UA (POCT) Negative Negative [facility] PH UA (POCT) 6.0 4.5 - 8.0 [facility] Protein Ql (U) Negative Negative mg/dL [facility] SPECIFIC GRAVITY UA (POCT) 1.010 1.005 - 1.030 [facility] UROBILINOGEN UA (POCT) 0.2 E.U./dL Lucie l E.U./dL [facility] FERRITIN BLDon 12-28-2022 Ferritin [Mass/Vol] 20.0 ng/mL 14.7 - 205.1 ng/mL [facility] Iron and Iron binding capaci ty panelon 12-28-2022 Iron [Mass/Vol] 17 ug/dL Low 41 - 186 ug/dL [facility] Iron binding capacity [Mass/Vol] 374 ug/dL 232 - 386 ug/dL [facility] Iron/TIBC [Molar ratio] 4.5 % Low 15.0 - 57.0 % [facility] Urinalysis complete panel (U )on 12-28-2022 Bilirubin Ql (U) Negative Negative [facility] Clarity (Unsp spec) Clear Clear [facility] Color (U) Light Yellow Yellow [facility] Epithelial cells LM.HPF (Urine sed) [#/Area] Few [facility] Glucose Test strip (U) [Mass/Vol] 4+ Abnormal Trace, Negative [facility] Hemoglobin Ql (U) Negative Negative, Trace [facility] Ketones Ql (U) Negative Trace, Negative [facility] Leukocyte esterase Test strip Ql (U) Negative Negative, 25 Aury/uL [facility] Nitrite Ql (U) Negative Negative [facility] pH (U) 6.5 [pH] 5.0 - 8.0 [facility] Protein (U) [Mass/Vol] Negative Trace , Negative [facility] RBC LM.HPF (Urine sed) [#/Area] 0-3 /HPF 0-3 /HPF [facility] Specific gravity (U) [Rel density] 1.026 1.005 - 1.030 [facility] Urobilinogen Ql (U) Negative Negative [facility] WBC LM.HPF (Urine sed) [#/Area] 0-5 /HPF 0-5 /HPF [facility] STREP A MOLECULAR (POC)on Procedural Control Valid [facility] Strep A (POCT) Negative Negative [facility] UA DIP, URINE (POC)on 2021 BILIRUBIN UA (POCT) Negative Negative [facility] CLARITY UA (POCT) Cloudy [facility] COLOR UA (POCT) Dark yellow [facility] GLUCOSE UA (POCT) >=1000 Abnormal Negative mg/dL [facility] HEMOGLOBIN/BLOOD UA (POCT) Small Abnormal Negative [facility] KETONE UA (POCT) Negative Negative mg/dL [facility] LEUKOCYTES UA (POCT) Moderate Abnormal Negative [facility] NITRITE UA (POCT) Negative Negative [facility] PH UA (POCT) 7.0 4.5 - 8.0 [facility] Protein Ql (U) Negative Negative mg/dL [facility] SPECIFIC GRAVITY UA (POCT) 1.015 1.005 - 1.030 [facility] UROBILINOGEN UA (POCT) 0.2 E.U./dL Lucie l E.U./dL [facility] URINE CULTUREon 01-06-2022 Bacteria identified Cx Nom (U) 10,000 -<50,000 CFU/ml Mixed microbiota Abnormal [facility] Urinalysis complete panel (U )on 01-05-2022 Bilirubin Ql (U) Negative Negative [facility] Calcium Oxalate Crystals Few Abnormal None Seen /HPF [facility] Clarity (Unsp spec) Slightly Cloudy Abnormal Clear [facility] Color (U) Yellow Yellow [facility] Epithelial cells LM.HPF (Urine sed) [#/Area] Few [facility] Glucose Test strip (U) [Mass/Vol] 3+ Abnormal Negative [facility] Hemoglobin Ql (U) Negative Negative [facility] Ketones Ql (U) Negative Negative [facility] Leukocyte esterase Test strip Ql (U) Negative Negative [facility] Nitrite Ql (U) Negative Negative [facility] pH (U) 5.0 [pH] 5.0 - 8.0 [facility] Protein (U) [Mass/Vol] 1+ Abnormal Negative Cl [facility] RBC LM.HPF (Urine sed) [#/Area] 0-3 /HPF 0-3 /HPF [facility] Specific gravity (U) [Rel density] 1.026 1.005 - 1.030 [facility] Urobilinogen Ql (U) Negative Negative [facility] WBC LM.HPF (Urine sed) [#/Area] 0-5 /HPF 0-5 /HPF [facility] XR Cervical spine AP and Lat eral and obliqueon 06-26-2021 IMPRESSION: Degenera tive changes as detailed in report. Application Chemist: RICK Transcribe Date/Time: Jun 26 2021 2:11P Dictated by : MARIANA HALL MD This examination was interpreted and the report reviewed and electronically signed by: MARIANA HALL MD on Jun 26 2021 2:14PM [facility] DIVISION OF RADIOLOGY * * *Final Report* * * DATE OF EXAM: Jun 26 2021 1:25PM WOX 5311 - XR CERVICAL 4V AP/LAT/OBL / PROCEDURE REASON: Frequent headaches * * * * Physician Interpretation * * * * EXAMINATION: XR CERVICAL 4V AP/LAT/OBL HISTORY: Patient is having frequent headaches for a month with soreness in muscles on both sides of upper cervical region. Negative injury. TECHNIQUE: XR CERVICAL 4V AP/LAT/OBL Laterality: NOT APPLICABLE Number of different views (projections): 4 M: XB_1 COMPARISON: There are no prior relevant examinations available for comparison within the [facility]. RESULT: 4 views of the cervical spine demonstrate multilevel degenerative change with vertebral body osteophytosis and disc space narrowing, greatest at C5-6. There are no vertebral body compression deformities and alignment is well maintained. Bilateral obliques demonstrate moderate foraminal narrowing at C4-5 and C6-7 on the left and at C3-4 and C4-5 on the right. Moderate to severe foraminal narrowing is noted at C3-4 on the left. Severe foraminal narrowing is noted at C5-6 bilaterally. The atlantoaxial interval and craniocervical junction are intact. There is no prevertebral soft tissue abnormality. DIVISION OF RADIOLOGY Provider, Melinda Michelle quiles [place] - 06/26/2021 * * *Final Report* * * DATE OF EXAM: Jun 26 2021 1:25PM WOX 5311 - XR CERVICAL 4V AP/LAT/OBL / PROCEDURE REASON: Frequent headaches * * * * Physician Interpretation * * * * EXAMINATION: XR CERVICAL 4V AP/LAT/OBL HISTORY: Patient is having frequent headaches for a month with soreness in muscles on both sides of upper cervical region. Negative injury. TECHNIQUE: XR CERVICAL 4V AP/LAT/OBL Laterality: NOT APPLICABLE Number of different views (projections): 4 M: XB_1 COMPARISON: There are no prior relevant examinations available for comparison within the [facility]. RESULT: 4 views of the cervical spine demonstrate multilevel degenerative change with vertebral body osteophytosis and disc space narrowing, greatest at C5-6. There are no vertebral body compression deformities and alignment is well maintained. Bilateral obliques demonstrate moderate foraminal narrowing at C4-5 and C6-7 on the left and at C3-4 and C4-5 on the right. Moderate to severe foraminal narrowing is noted at C3-4 on the left. Severe foraminal narrowing is noted at C5-6 bilaterally. The atlantoaxial interval and craniocervical junction are intact. There is no prevertebral soft tissue abnormality. IMPRESSION IMPRESSION: Degenerative changes as detailed in report. Application Chemist: RICK Transcribe Date/Time: Jun 26 2021 2:11P Dictated by : MARIANA HALL MD This examination was interpreted and the report reviewed and electronically signed by: MARIANA HALL MD on Jun 26 2021 2:14PM EST [facility] Radiology Study observation (narrative) [facility] XR Cervical spine AP and Lat eral and obliqueOrdered By: Ccf Provider on 06-26-2021 [facility] XR Foot - left AP and Latera l and obliqueon 11-11-2020 IMPRESSION: No acute osseous abnormality identified. Application Chemist: RICK Transcribe Date/Time: Nov 11 2020 12:57P Dictated by : CHIP EMMANUEL MD This examination was interpreted and the report reviewed and electronically signed by: CHIP EMMANUEL MD on Nov 11 2020 12:59PM [facility] DIVISION OF RADIOLOGY * * *Final Report* * * DATE OF EXAM: Nov 11 2020 12:53PM WOX 5336 - XR FOOT 3V AP/LAT/OBL LT / PROCEDURE REASON: Foot pain, left * * * * Physician Interpretation * * * * Left foot radiographs HISTORY: 65 years old Clinical information: Foot pain, left dropped a bottle on left lateral tarsal bones TECHNIQUE: Images: XR FOOT 3V AP/LAT/OBL LT Comparison: None. RESULT: Findings: Plantar calcaneal spur. Enthesophyte at the Achilles insertion site on the calcaneus. Cornuate appearance of the navicular bone. No fracture or dislocation. No soft tissue abnormality identified. DIVISION OF RADIOLOGY Provider, Melinda Love [facility] - 11/11/2020 * * *Final Report* * * DATE OF EXAM: Nov 11 2020 12:53PM WOX 5336 - XR FOOT 3V AP/LAT/OBL LT / PROCEDURE REASON: Foot pain, left * * * * Physician Interpretation * * * * Left foot radiographs HISTORY: 65 years old Clinical information: Foot pain, left dropped a bottle on left lateral tarsal bones TECHNIQUE: Images: XR FOOT 3V AP/LAT/OBL LT Comparison: None. RESULT: Findings: Plantar calcaneal spur. Enthesophyte at the Achilles insertion site on the calcaneus. Cornuate appearance of the navicular bone. No fracture or dislocation. No soft tissue abnormality identified. IMPRESSION IMPRESSION: No acute osseous abnormality identified. [facility] Transcribe Date/Time: Nov 11 2020 12:57P Dictated by : CHIP EMMANUEL MD This examination was interpreted and the report reviewed and electronically signed by: CHIP EMMANUEL MD on Nov 11 2020 12:59PM EST [facility] Radiology Study observation (narrative) [facility] XR Foot - left AP and Latera l and obliqueOrdered By: Ccf Provider on 11-11-2020 [facility] Clinical Summary: HMSPatient IDon 02-07-2018 OOP Invalid Interpretation Code [facility] Work Phone: Office Visit: Postop - 1st v isit, Rm: 37on 02-07-2018 NEGATED: Highlighted rowDocumentation of current medications (procedure) Done Invalid Interpretation Code [facility] Work Phone: Vital Signs Date Time Vital Sign Value Performing Clinician Facility 05-19-2025 11:26-0400 Body mass index (BMI) [Ratio] 31.48 kg/m2 [employer]ATELLITE MANAGER.ASS[employer]ATE SOFTWARE APPLICATION ENGINEER Work Phone: [facility] 05-19-2025 11:26-0400 Body temperature 96.69 [degF] [employer] SATELLITE MANAGER.ASSOCIATE SOFTWARE APPLICATION ENGINEER Work Phone: [facility] 05-19-2025 11:26-0400 Body weight 80.6 kg [employer] SATELLITE MANAGER.ASSOCIATE SOFTWARE APPLICATION ENGINEER Work Phone: [facility] 05-19-2025 11:26-0400 Diastolic blood pressure 58 mm[Hg] [employer] SATELLITE MANAGER.ASSOCIATE SOFTWARE APPLICATION ENGINEER Work Phone: [facility] 05-19-2025 11:26-0400 Heart rate 83 /min Key Swank SATELLITE MANAGER.ASSOCIATE SOFTWARE APPLICATION ENGINEER Work Phone: [facility] 05-19-2025 11:26-0400 Respiratory rate 20 /min Key Swank SATELLITE MANAGER.ASSOCIATE SOFTWARE APPLICATION ENGINEER Work Phone: [facility] 05-19-2025 11:26-0400 SaO2% (BldA) [Mass fraction] 98 % Key Swank SATELLITE MANAGER.ASSOCIATE SOFTWARE APPLICATION ENGINEER Work Phone: [facility] 05-19-2025 11:26-0400 Systolic blood pressure 118 mm[Hg] Key Swank SATELLITE MANAGER.ASSOCIATE SOFTWARE APPLICATION ENGINEER Work Phone: [facility] 04-26-2025 14:00-0400 Body height 160 cm Kim Wu MD Work Phone: [facility] 04-26-2025 14:00-0400 Body mass index (BMI) [Ratio] 32.24 kg/m2 Kim Wu MD Work Phone: [facility] 04-26-2025 14:00-0400 Body weight 82.56 kg Kim Wu MD Work Phone: [facility] 04-26-2025 14:00-0400 Diastolic blood pressure 64 mm[Hg] Kim Wu MD Work Phone: [facility] 04-26-2025 14:00-0400 Heart rate 69 /min Kim Wu MD Work Phone: [facility] 04-26-2025 14:00-0400 Respiratory rate 18 /min Kim Wu MD Work Phone: [facility] 04-26-2025 14:00-0400 Systolic blood pressure 113 mm[Hg] Kim Wu MD Work Phone: [facility] 04-14-2025 15:55-0400 Body mass index (BMI) [Ratio] 31.53 kg/m2 Juan Locke DO Work Phone: [facility] 04-14-2025 15:55-0400 Body temperature 96.69 [degF] Juan Locke DO Work Phone: [facility] 04-14-2025 15:55-0400 Body weight 80.74 kg Juan Locke DO Work Phone: [facility] 04-14-2025 15:55-0400 Diastolic blood pressure 60 mm[Hg] Juan Locke DO Work Phone: [facility] 04-14-2025 15:55-0400 Heart rate 94 /min Juan Locke DO Work Phone: [facility] 04-14-2025 15:55-0400 SaO2% (BldA) [Mass fraction] 98 % Juan Locke DO Work Phone: [facility] 04-14-2025 15:55-0400 Systolic blood pressure 100 mm[Hg] Juan Locke DO Work Phone: [facility] 04-06-2025 13:05-0400 Body temperature 97.81 [degF] Treatment Wstr Work Phone: [facility] 04-06-2025 13:05-0400 Diastolic blood pressure 77 mm[Hg] Treatment Wstr Work Phone: [facility] 04-06-2025 13:05-0400 Heart rate 97 /min Treatment Wstr Work Phone: [facility] 04-06-2025 13:05-0400 SaO2% (BldA) [Mass fraction] 100 % Treatment Wstr Work Phone: [facility] 04-06-2025 13:05-0400 Systolic blood pressure 133 mm[Hg] Treatment Wstr Work Phone: [facility] 04-01-2025 13:30-0400 Body temperature 98.6 [degF] Treatment Wstr Work Phone: [facility] 04-01-2025 13:30-0400 Diastolic blood pressure 78 mm[Hg] Treatment Wstr Work Phone: [facility] 04-01-2025 13:30-0400 Heart rate 80 /min Treatment Wstr Work Phone: [facility] 04-01-2025 13:30-0400 Respiratory rate 16 /min Treatment Wstr Work Phone: [facility] 04-01-2025 13:30-0400 SaO2% (BldA) [Mass fraction] 100 % Treatment Wstr Work Phone: [facility] 04-01-2025 13:30-0400 Systolic blood pressure 120 mm[Hg] Treatment Wstr Work Phone: [facility] 03-26-2025 14:29-0400 Body temperature 98.4 [degF] Treatment Wstr Work Phone: [facility] 03-26-2025 14:29-0400 Diastolic blood pressure 57 mm[Hg] Treatment Wstr Work Phone: [facility] 03-26-2025 14:29-0400 Heart rate 109 /min Treatment Wstr Work Phone: [facility] 03-26-2025 14:29-0400 Respiratory rate 16 /min Treatment Wstr Work Phone: [facility] 03-26-2025 14:29-0400 SaO2% (BldA) [Mass fraction] 97 % Treatment Wstr Work Phone: [facility] 03-26-2025 14:29-0400 Systolic blood pressure 111 mm[Hg] Treatment Wstr Work Phone: [facility] 03-24-2025 13:57-0400 Body temperature 98.01 [degF] Treatment Wstr Work Phone: [facility] 03-24-2025 13:57-0400 Diastolic blood pressure 66 mm[Hg] Treatment Wstr Work Phone: [facility] 03-24-2025 13:57-0400 Heart rate 89 /min Treatment Wstr Work Phone: [facility] 03-24-2025 13:57-0400 Respiratory rate 18 /min Treatment Wstr Work Phone: [facility] 03-24-2025 13:57-0400 SaO2% (BldA) [Mass fraction] 100 % Treatment Wstr Work Phone: [facility] 03-24-2025 13:57-0400 Systolic blood pressure 111 mm[Hg] Treatment Wstr Work Phone: [facility] 03-22-2025 13:57-0400 Body temperature 97.11 [degF] Treatment Wstr Work Phone: [facility] 03-22-2025 13:57-0400 Diastolic blood pressure 71 mm[Hg] Treatment Wstr Work Phone: [facility] 03-22-2025 13:57-0400 Heart rate 107 /min Treatment Wstr Work Phone: [facility] 03-22-2025 13:57-0400 SaO2% (BldA) [Mass fraction] 100 % Treatment Wstr Work Phone: [facility] 03-22-2025 13:57-0400 Systolic blood pressure 114 mm[Hg] Treatment Wstr Work Phone: [facility] 03-11-2025 14:05-0400 Body height 160 cm Beata Boone Work Phone: [facility] 03-11-2025 14:05-0400 Body mass index (BMI) [Ratio] 33.92 kg/m2 Beata Boone Work Phone: [facility] 03-11-2025 14:05-0400 Body weight 86.86 kg Beata Boone Work Phone: [facility] 03-11-2025 14:05-0400 Diastolic blood pressure 59 mm[Hg] Beata Boone Work Phone: [facility] 03-11-2025 14:05-0400 Heart rate 84 /min Beata Boone Work Phone: [facility] 03-11-2025 14:05-0400 SaO2% (BldA) [Mass fraction] 99 % Beata Boone Work Phone: [facility] 03-11-2025 14:05-0400 Systolic blood pressure 97 mm[Hg] Beata Boone Work Phone: [facility] 02-26-2025 13:21-0400 Body height 162.[address] Juan Locke DO Work Phone: [facility] 02-26-2025 13:21-0400 Body mass index (BMI) [Ratio] 33.2 kg/m2 Dr. Juan Locke DO Work Phone: 3(009)657-153431 [place] [address] 02-26-2025 13:21-0400 Body weight 87.[address] Juan Locke DO Work Phone: 4(678)057-789131 [place] [address] 02-26-2025 13:21-0400 Diastolic blood pressure 73 mm[Hg] Dr. Juan Locke DO Work Phone: [facility] 02-26-2025 13:21-0400 Heart rate 104 /min Dr. Juan Locke DO Work Phone: 3(535)636-565231 [place] [address] 02-26-2025 13:21-0400 SaO2% (BldA) [Mass fraction] 95 % Dr. Juan Locke DO Work Phone: 2(293)320-322004 [place] [address] 02-26-2025 13:21-0400 Systolic blood pressure 117 mm[Hg] Dr. Juan Locke DO Work Phone: 1(613)175-154704 [place] [address] 02-12-2025 17:25-0400 Body temperature 98.1 [degF] Dr. Juan Locke DO Work Phone: 3(301)356-909304 [place] [address] 02-12-2025 17:25-0400 Diastolic blood pressure 61 mm[Hg] Dr. Juan Locke DO Work Phone: 2(262)404-762604 [place] [address] 02-12-2025 17:25-0400 Heart rate 80 /min Dr. Juan Locke DO Work Phone: 0(428)716-105404 [place] [address] 02-12-2025 17:25-0400 Respiratory rate 17 /min Dr. Juan Locke DO Work Phone: 1(990)736-128604 [place] [address] 02-12-2025 17:25-0400 SaO2% (BldA) [Mass fraction] 96 % Dr. Juan Locke DO Work Phone: 3(640)036-849404 [place] [address] 02-12-2025 17:25-0400 Systolic blood pressure 99 mm[Hg] Dr. Juan Locke DO Work Phone: 2(866)701-338704 [place] [address] 02-11-2025 10:37-0400 Body height 162.[address] Juan Locke DO Work Phone: 2(025)190-830504 [place] [address] 02-11-2025 10:37-0400 Body weight 85.[address] Juan Locke DO Work Phone: 3(330)020-781704 [place] [address] 02-09-2025 16:59-0400 Body mass index (BMI) [Ratio] 32.5 kg/m2 Dr. Juan Locke DO Work Phone: 6(507)876-617904 [place] [address] 02-09-2025 16:41-0400 Body temperature 97.8 [degF] Dr. Juan Locke DO Work Phone: 7(704)744-424104 [place] [address] 02-09-2025 16:41-0400 Diastolic blood pressure 78 mm[Hg] Dr. Juan Locke DO Work Phone: 3(577)645-326231 [place] [address] 02-09-2025 16:41-0400 Heart rate 78 /min Dr. Juan Locke DO Work Phone: 5(074)276-499151 [address] 02-09-2025 16:41-0400 Respiratory rate 14 /min Dr. Juan Locke DO Work Phone: 5(679)779-123604 [place] [address] 02-09-2025 16:41-0400 SaO2% (BldA) [Mass fraction] 97 % Dr. Juan Locke DO Work Phone: 1(416)332-649804 [place] [address] 02-09-2025 16:41-0400 Systolic blood pressure 107 mm[Hg] Dr. Juan Locke DO Work Phone: 5(782)353-080104 [place] [address] 02-09-2025 12:13-0400 Body height 162.[address] Juan Locke DO Work Phone: 8(278)189-081104 [place] [address] 02-09-2025 12:13-0400 Body mass index (BMI) [Ratio] 33.4 kg/m2 Dr. Juan Locke DO Work Phone: 5(854)099-564031 [place] [address] 02-09-2025 12:13-0400 Body weight 88.[address] Juan Locke DO Work Phone: 4(371)312-867631 [place] [address] 01-21-2025 10:36-0400 Body mass index (BMI) [Ratio] 33.3 kg/m2 Nury Alexander SATELLITE MANAGER.ASSOCIATE SOFTWARE APPLICATION ENGINEER Work Phone: [facility] 01-21-2025 10:36-0400 Body weight 88 kg Nury Benjamin SATELLITE MANAGER.ASSOCIATE SOFTWARE APPLICATION ENGINEER Work Phone: [facility] 01-21-2025 10:36-0400 Diastolic blood pressure 70 mm[Hg] Nury Alexander SATELLITE MANAGER.ASSOCIATE SOFTWARE APPLICATION ENGINEER Work Phone: [facility] 01-21-2025 10:36-0400 Heart rate 76 /min Nury Alexander SATELLITE MANAGER.ASSOCIATE SOFTWARE APPLICATION ENGINEER Work Phone: [facility] 01-21-2025 10:36-0400 SaO2% (BldA) [Mass fraction] 100 % Nury Alexander SATELLITE MANAGER.ASSOCIATE SOFTWARE APPLICATION ENGINEER Work Phone: [facility] 01-21-2025 10:36-0400 Systolic blood pressure 116 mm[Hg] Nury Alexander SATELLITE MANAGER.ASSOCIATE SOFTWARE APPLICATION ENGINEER Work Phone: [facility] 12-16-2024 11:26-0400 Body height 162.6 cm Mery Hernandez MD Work Phone: [facility] 12-16-2024 11:26-0400 Diastolic blood pressure 58 mm[Hg] Mery Hernandez MD Work Phone: [facility] 12-16-2024 11:26-0400 Heart rate 77 /min Mery Hernandez MD Work Phone: [facility] 12-16-2024 11:26-0400 SaO2% (BldA) [Mass fraction] 98 % Mery Hernandez MD Work Phone: [facility] 12-16-2024 11:26-0400 Systolic blood pressure 110 mm[Hg] Mery Hernandez MD Work Phone: [facility] 12-15-2024 13:29-0400 Body temperature 97.5 [degF] Treatment Wstr Work Phone: [facility] 12-15-2024 13:29-0400 Diastolic blood pressure 83 mm[Hg] Treatment Wstr Work Phone: [facility] 12-15-2024 13:29-0400 Heart rate 104 /min Treatment Wstr Work Phone: [facility] 12-15-2024 13:29-0400 SaO2% (BldA) [Mass fraction] 94 % Treatment Wstr Work Phone: [facility] 12-15-2024 13:29-0400 Systolic blood pressure 143 mm[Hg] Treatment Wstr Work Phone: [facility] 12-11-2024 14:30-0400 Body temperature 97.59 [degF] Treatment Wstr Work Phone: [facility] 12-11-2024 14:30-0400 Diastolic blood pressure 82 mm[Hg] Treatment Wstr Work Phone: [facility] 12-11-2024 14:30-0400 Heart rate 102 /min Treatment Wstr Work Phone: [facility] 12-11-2024 14:30-0400 Respiratory rate 18 /min Treatment Wstr Work Phone: [facility] 12-11-2024 14:30-0400 SaO2% (BldA) [Mass fraction] 95 % Treatment Wstr Work Phone: [facility] 12-11-2024 14:30-0400 Systolic blood pressure 152 mm[Hg] Treatment Wstr Work Phone: [facility] 11-25-2024 12:32-0400 Body mass index (BMI) [Ratio] 34.5 kg/m2 Juan Locke DO Work Phone: [facility] 11-25-2024 12:32-0400 Body temperature 97.5 [degF] Juan Locke DO Work Phone: [facility] 11-25-2024 12:32-0400 Body weight 91.17 kg Juan Locke DO Work Phone: [facility] 11-25-2024 12:32-0400 Diastolic blood pressure 60 mm[Hg] Juan Locke DO Work Phone: [facility] 11-25-2024 12:32-0400 Heart rate 80 /min Juan Locke DO Work Phone: [facility] 11-25-2024 12:32-0400 Respiratory rate 16 /min Juan Locke DO Work Phone: [facility] 11-25-2024 12:32-0400 Systolic blood pressure 90 mm[Hg] Juan Locke DO Work Phone: [facility] 11-20-2024 10:47-0500 Diastolic blood pressure 84 mm[Hg] Dr. Juan Locke DO Work Phone: [facility] 11-20-2024 10:47-0500 Heart rate 112 /min Dr. Juan Locke DO Work Phone: [facility] 11-20-2024 10:47-0500 SaO2% (BldA) [Mass fraction] 96 % Dr. Juan Locke DO Work Phone: [facility] 11-20-2024 10:47-0500 Systolic blood pressure 133 mm[Hg] Dr. Juan Locke DO Work Phone: [facility] 11-18-2024 15:06-0500 Body temperature 98.49 [degF] Treatment Wstr Work Phone: [facility] 11-18-2024 15:06-0500 Diastolic blood pressure 77 mm[Hg] Treatment Wstr Work Phone: [facility] 11-18-2024 15:06-0500 Heart rate 115 /min Treatment Wstr Work Phone: [facility] 11-18-2024 15:06-0500 SaO2% (BldA) [Mass fraction] 97 % Treatment Wstr Work Phone: [facility] 11-18-2024 15:06-0500 Systolic blood pressure 144 mm[Hg] Treatment Wstr Work Phone: [facility] 11-17-2024 12:56-0500 Body mass index (BMI) [Ratio] 34.23 kg/m2 Nury Benjamin SATELLITE MANAGER.ASSOCIATE SOFTWARE APPLICATION ENGINEER Work Phone: [facility] 11-17-2024 12:56-0500 Body weight 90.45 kg Nury Benjamin SATELLITE MANAGER.ASSOCIATE SOFTWARE APPLICATION ENGINEER Work Phone: [facility] 11-17-2024 12:56-0500 Diastolic blood pressure 62 mm[Hg] Nury Benjamin SATELLITE MANAGER.ASSOCIATE SOFTWARE APPLICATION ENGINEER Work Phone: [facility] 11-17-2024 12:56-0500 Heart rate 109 /min Nury Singhman SATELLITE MANAGER.ASSOCIATE SOFTWARE APPLICATION ENGINEER Work Phone: [facility] 11-17-2024 12:56-0500 SaO2% (BldA) [Mass fraction] 98 % Nury Alexander APRN.ASSOCIATE SOFTWARE APPLICATION ENGINEER Work Phone: [facility] 11-17-2024 12:56-0500 Systolic blood pressure 106 mm[Hg] Nury Alexander GREGORY.ASSOCIATE SOFTWARE APPLICATION ENGINEER Work Phone: [facility] 11-10-2024 15:00-0500 Heart rate 76 /min Dr. Juan Locke DO Work Phone: [facility] 11-10-2024 14:20-0500 Body temperature 97.5 [degF] Dr. Juan Locke DO Work Phone: [facility] 11-10-2024 14:20-0500 Diastolic blood pressure 59 mm[Hg] Dr. Juan Locke DO Work Phone: [facility] 11-10-2024 14:20-0500 Respiratory rate 18 /min Dr. Juan Locke DO Work Phone: [facility] 11-10-2024 14:20-0500 SaO2% (BldA) [Mass fraction] 97 % Dr. Juan Locke DO Work Phone: [facility] 11-10-2024 14:20-0500 Systolic blood pressure 98 mm[Hg] Dr. Juan Locke DO Work Phone: [facility] 11-10-2024 11:12-0500 Body weight 93.[address] Juan Locke DO Work Phone: [facility] 11-09-2024 05:19-0500 Body mass index (BMI) [Ratio] 35.2 kg/m2 Dr. Juan Locke DO Work Phone: [facility] 11-02-2024 13:01-0500 Body height 162.[address] [facility] 11-02-2024 13:01-0500 Body mass index (BMI) [Ratio] 33.47 kg/m2 Pavithra Del Rosario RD [facility] 11-02-2024 13:01-0500 Body weight 88.45 kg Pavithra Miguel Ángel BECERRIL [facility] 10-26-2024 13:03-0500 Body mass index (BMI) [Ratio] 33.56 kg/m2 Beata Boone Work Phone: [facility] 10-26-2024 13:03-0500 Body temperature 97.7 [degF] Beatadave Boone Work Phone: [facility] 10-26-2024 13:03-0500 Body weight 88.68 kg Beata Boone Work Phone: [facility] 10-26-2024 13:03-0500 Diastolic blood pressure 73 mm[Hg] Beata Boone Work Phone: [facility] 10-26-2024 13:03-0500 Heart rate 96 /min Beata Boone Work Phone: [facility] 10-26-2024 13:03-0500 SaO2% (BldA) [Mass fraction] 100 % Beata Boone Work Phone: [facility] 10-26-2024 13:03-0500 Systolic blood pressure 114 mm[Hg] Beata Boone Work Phone: [facility] 10-13-2024 14:50-0500 Body temperature 97.81 [degF] Treatment Wstr Work Phone: [facility] 10-13-2024 14:50-0500 Diastolic blood pressure 68 mm[Hg] Treatment Wstr Work Phone: [facility] 10-13-2024 14:50-0500 Heart rate 84 /min Treatment Wstr Work Phone: [facility] 10-13-2024 14:50-0500 Respiratory rate 18 /min Treatment Wstr Work Phone: [facility] 10-13-2024 14:50-0500 SaO2% (BldA) [Mass fraction] 100 % Treatment Wstr Work Phone: [facility] 10-13-2024 14:50-0500 Systolic blood pressure 107 mm[Hg] Treatment Wstr Work Phone: [facility] 10-09-2024 15:00-0500 Body temperature 97.5 [degF] Treatment Wstr Work Phone: [facility] 10-09-2024 15:00-0500 Diastolic blood pressure 64 mm[Hg] Treatment Wstr Work Phone: [facility] 10-09-2024 15:00-0500 Heart rate 70 /min Treatment Wstr Work Phone: [facility] 10-09-2024 15:00-0500 Systolic blood pressure 114 mm[Hg] Treatment Wstr Work Phone: [facility] 10-05-2024 14:53-0500 Body temperature 97.7 [degF] Treatment Wstr Work Phone: [facility] 10-05-2024 14:53-0500 Diastolic blood pressure 62 mm[Hg] Treatment Wstr Work Phone: [facility] 10-05-2024 14:53-0500 Heart rate 101 /min Treatment Wstr Work Phone: [facility] 10-05-2024 14:53-0500 SaO2% (BldA) [Mass fraction] 100 % Treatment Wstr Work Phone: [facility] 10-05-2024 14:53-0500 Systolic blood pressure 113 mm[Hg] Treatment Wstr Work Phone: [facility] 10-01-2024 14:29-0500 Body temperature 97.59 [degF] Treatment Wstr Work Phone: [facility] 10-01-2024 14:29-0500 Diastolic blood pressure 84 mm[Hg] Treatment Wstr Work Phone: [facility] 10-01-2024 14:29-0500 Heart rate 77 /min Treatment Wstr Work Phone: [facility] 10-01-2024 14:29-0500 SaO2% (BldA) [Mass fraction] 100 % Treatment Wstr Work Phone: [facility] 10-01-2024 14:29-0500 Systolic blood pressure 130 mm[Hg] Treatment Wstr Work Phone: [facility] 09-28-2024 14:16-0500 Body temperature 97.7 [degF] Treatment Wstr Work Phone: [facility] 09-28-2024 14:16-0500 Diastolic blood pressure 66 mm[Hg] Treatment Wstr Work Phone: [facility] 09-28-2024 14:16-0500 Heart rate 95 /min Treatment Wstr Work Phone: [facility] 09-28-2024 14:16-0500 SaO2% (BldA) [Mass fraction] 100 % Treatment Wstr Work Phone: [facility] 09-28-2024 14:16-0500 Systolic blood pressure 119 mm[Hg] Treatment Wstr Work Phone: [facility] 08-24-2024 09:30-0500 Body temperature 97.11 [degF] Treatment Wstr Work Phone: [facility] 08-24-2024 09:30-0500 Diastolic blood pressure 72 mm[Hg] Treatment Wstr Work Phone: [facility] 08-24-2024 09:30-0500 Heart rate 102 /min Treatment Wstr Work Phone: [facility] 08-24-2024 09:30-0500 Respiratory rate 18 /min Treatment Wstr Work Phone: [facility] 08-24-2024 09:30-0500 SaO2% (BldA) [Mass fraction] 99 % Treatment Wstr Work Phone: [facility] 08-24-2024 09:30-0500 Systolic blood pressure 130 mm[Hg] Treatment Wstr Work Phone: [facility] 08-19-2024 10:45-0500 Body height 162.6 cm Mery Hernandez MD Work Phone: [facility] 08-19-2024 10:45-0500 Diastolic blood pressure 62 mm[Hg] Mery Hernandez MD Work Phone: [facility] 08-19-2024 10:45-0500 Heart rate 86 /min Mery Hernandez MD Work Phone: [facility] 08-19-2024 10:45-0500 SaO2% (BldA) [Mass fraction] 99 % Mery Hernandez MD Work Phone: [facility] 08-19-2024 10:45-0500 Systolic blood pressure 118 mm[Hg] Mery Hernandez MD Work Phone: [facility] 08-12-2024 11:13-0500 Body mass index (BMI) [Ratio] 32.79 kg/m2 Nury Benjamin SATELLITE MANAGER.ASSOCIATE SOFTWARE APPLICATION ENGINEER Work Phone: [facility] 08-12-2024 11:13-0500 Body weight 86.64 kg Nury Benjamin SATELLITE MANAGER.ASSOCIATE SOFTWARE APPLICATION ENGINEER Work Phone: [facility] 08-12-2024 11:13-0500 Diastolic blood pressure 64 mm[Hg] Nury Benjamin SATELLITE MANAGER.ASSOCIATE SOFTWARE APPLICATION ENGINEER Work Phone: [facility] 08-12-2024 11:13-0500 Heart rate 78 /min Nury Benjamin SATELLITE MANAGER.ASSOCIATE SOFTWARE APPLICATION ENGINEER Work Phone: [facility] 08-12-2024 11:13-0500 Respiratory rate 16 /min Nury Benjamin SATELLITE MANAGER.ASSOCIATE SOFTWARE APPLICATION ENGINEER Work Phone: [facility] 08-12-2024 11:13-0500 SaO2% (BldA) [Mass fraction] 99 % Nury Benjamin SATELLITE MANAGER.ASSOCIATE SOFTWARE APPLICATION ENGINEER Work Phone: [facility] 08-12-2024 11:13-0500 Systolic blood pressure 92 mm[Hg] Nury Benjamin SATELLITE MANAGER.ASSOCIATE SOFTWARE APPLICATION ENGINEER Work Phone: [facility] 07-08-2024 08:08-0400 Body mass index (BMI) [Ratio] 33.3 kg/m2 Juan Locke DO Work Phone: [facility] 07-08-2024 08:08-0400 Body temperature 97 [degF] Juan Locke DO Work Phone: [facility] 07-08-2024 08:08-0400 Body weight 88 kg Juan Locke DO Work Phone: [facility] 07-08-2024 08:08-0400 Diastolic blood pressure 50 mm[Hg] Juan Locke DO Work Phone: [facility] 07-08-2024 08:08-0400 Heart rate 76 /min Juan Locke DO Work Phone: [facility] 07-08-2024 08:08-0400 Respiratory rate 20 /min Juan Locke DO Work Phone: [facility] 07-08-2024 08:08-0400 Systolic blood pressure 90 mm[Hg] Juan Locke DO Work Phone: [facility] 07-01-2024 [id number] Body height 162.6 cm Mery Hernandez MD Work Phone: [facility] 07-01-2024 11:26-0400 Body mass index (BMI) [Ratio] 32.79 kg/m2 Mery Hernandez MD Work Phone: [facility] 07-01-2024 11:040 Body weight 86.64 kg Mery Hernandez MD Work Phone: [facility] 06-18-2024 13:10-0400 Body mass index (BMI) [Ratio] 32.35 kg/m2 Beata Boone Work Phone: [facility] 06-18-2024 13:10040 Body temperature 97.5 [degF] Beata Boone Work Phone: [facility] 06-18-2024 13:10040 Body weight 85.96 kg Beata Boone Work Phone: [facility] 06-18-2024 13:10-0400 Diastolic blood pressure 58 mm[Hg] Beata Boone Work Phone: [facility] 06-18-2024 13:10-0400 Heart rate 77 /min Beata Boone Work Phone: [facility] 06-18-2024 13:10-0400 SaO2% (BldA) [Mass fraction] 98 % Beata Boone Work Phone: [facility] 06-18-2024 13:10-0400 Systolic blood pressure 100 mm[Hg] Beata Boone Work Phone: [facility] 06-10-2024 12:08-0400 Body mass index (BMI) [Ratio] 32.56 kg/m2 Nury Benjamin SATELLITE MANAGER.ASSOCIATE SOFTWARE APPLICATION ENGINEER Work Phone: [facility] 06-10-2024 12:08-0400 Body weight 86.5 kg Nury Benjamin SATELLITE MANAGER.ASSOCIATE SOFTWARE APPLICATION ENGINEER Work Phone: [facility] 06-10-2024 12:08-0400 Diastolic blood pressure 64 mm[Hg] Nury Benjamin SATELLITE MANAGER.ASSOCIATE SOFTWARE APPLICATION ENGINEER Work Phone: [facility] 06-10-2024 12:08-0400 Heart rate 80 /min Nury Benjamin SATELLITE MANAGER.ASSOCIATE SOFTWARE APPLICATION ENGINEER Work Phone: [facility] 06-10-2024 12:08-0400 Respiratory rate 16 /min Nury Benjamin SATELLITE MANAGER.ASSOCIATE SOFTWARE APPLICATION ENGINEER Work Phone: [facility] 06-10-2024 12:08-0400 SaO2% (BldA) [Mass fraction] 99 % Nury Benjamin SATELLITE MANAGER.ASSOCIATE SOFTWARE APPLICATION ENGINEER Work Phone: [facility] 06-10-2024 12:08-0400 Systolic blood pressure 112 mm[Hg] Nury Benjamin SATELLITE MANAGER.ASSOCIATE SOFTWARE APPLICATION ENGINEER Work Phone: [facility] 05-26-2024 12:23-0400 Body temperature 97.81 [degF] Treatment Wstr Work Phone: [facility] 05-26-2024 12:23-0400 Diastolic blood pressure 68 mm[Hg] Treatment Wstr Work Phone: [facility] 05-26-2024 12:23-0400 Heart rate 72 /min Treatment Wstr Work Phone: [facility] 05-26-2024 12:23-0400 Systolic blood pressure 120 mm[Hg] Treatment Wstr Work Phone: [facility] 05-26-2024 12:06-0400 Body height 163 cm Nury Benjamin SATELLITE MANAGER.ASSOCIATE SOFTWARE APPLICATION ENGINEER Work Phone: [facility] 05-26-2024 12:06-0400 Body mass index (BMI) [Ratio] 31.28 kg/m2 Nury Benjamin SATELLITE MANAGER.ASSOCIATE SOFTWARE APPLICATION ENGINEER Work Phone: [facility] 05-26-2024 12:06-0400 Body weight 83.1 kg Nury Singhman SATELLITE MANAGER.ASSOCIATE SOFTWARE APPLICATION ENGINEER Work Phone: [facility] 05-26-2024 12:06-0400 Diastolic blood pressure 62 mm[Hg] Nury Benjamin SATELLITE MANAGER.ASSOCIATE SOFTWARE APPLICATION ENGINEER Work Phone: [facility] 05-26-2024 12:06-0400 Heart rate 70 /min Nury Singhman SATELLITE MANAGER.ASSOCIATE SOFTWARE APPLICATION ENGINEER Work Phone: [facility] 05-26-2024 12:06-0400 Respiratory rate 16 /min Nury Singhman SATELLITE MANAGER.ASSOCIATE SOFTWARE APPLICATION ENGINEER Work Phone: [facility] 05-26-2024 12:06-0400 SaO2% (BldA) [Mass fraction] 100 % Nury Benjamin SATELLITE MANAGER.ASSOCIATE SOFTWARE APPLICATION ENGINEER Work Phone: [facility] 05-26-2024 12:06-0400 Systolic blood pressure 102 mm[Hg] Nury Benjamin SATELLITE MANAGER.ASSOCIATE SOFTWARE APPLICATION ENGINEER Work Phone: [facility] 05-25-2024 14:24-0400 Body height 161 cm Alberto Larkin MD Work Phone: [facility] 05-25-2024 14:24-0400 Body mass index (BMI) [Ratio] 31.69 kg/m2 Alberto Larkin MD Work Phone: [facility] 05-25-2024 14:24-0400 Body temperature 97.9 [degF] Alberto Larkin MD Work Phone: [facility] 05-25-2024 14:24-0400 Body weight 82.19 kg Alberto Larkin MD Work Phone: [facility] 05-25-2024 14:24-0400 Diastolic blood pressure 60 mm[Hg] Alberto Larkin MD Work Phone: [facility] 05-25-2024 14:24-0400 Heart rate 83 /min Alberto Larkin MD Work Phone: [facility] 05-25-2024 14:24-0400 SaO2% (BldA) [Mass fraction] 100 % Alberto Larkin MD Work Phone: [facility] 05-25-2024 14:24-0400 Systolic blood pressure 90 mm[Hg] Alberto Larkin MD Work Phone: [facility] 05-15-2024 10:51-0400 Body temperature 97.9 [degF] Treatment Wstr Work Phone: [facility] 05-15-2024 10:51-0400 Diastolic blood pressure 68 mm[Hg] Treatment Wstr Work Phone: [facility] 05-15-2024 10:51-0400 Heart rate 66 /min Treatment Wstr Work Phone: [facility] 05-15-2024 10:51-0400 SaO2% (BldA) [Mass fraction] 99 % Treatment Wstr Work Phone: [facility] 05-15-2024 10:51-0400 Systolic blood pressure 114 mm[Hg] Treatment Wstr Work Phone: [facility] 05-12-2024 08:05-0400 Body mass index (BMI) [Ratio] 31.55 kg/m2 Nury Benjamin SATELLITE MANAGER.ASSOCIATE SOFTWARE APPLICATION ENGINEER Work Phone: [facility] 05-12-2024 08:05-0400 Body temperature 97.39 [degF] Nury Singhman SATELLITE MANAGER.ASSOCIATE SOFTWARE APPLICATION ENGINEER Work Phone: [facility] 05-12-2024 08:05-0400 Body weight 82.19 kg Nury Singhman SATELLITE MANAGER.ASSOCIATE SOFTWARE APPLICATION ENGINEER Work Phone: [facility] 05-12-2024 08:05-0400 Diastolic blood pressure 58 mm[Hg] Nury Signhman SATELLITE MANAGER.ASSOCIATE SOFTWARE APPLICATION ENGINEER Work Phone: [facility] 05-12-2024 08:05-0400 Heart rate 80 /min Nury Singhman SATELLITE MANAGER.ASSOCIATE SOFTWARE APPLICATION ENGINEER Work Phone: [facility] 05-12-2024 08:05-0400 Respiratory rate 16 /min Nury Singhman SATELLITE MANAGER.ASSOCIATE SOFTWARE APPLICATION ENGINEER Work Phone: [facility] 05-12-2024 08:05-0400 SaO2% (BldA) [Mass fraction] 100 % Nury Alexander SATELLITE MANAGER.ASSOCIATE SOFTWARE APPLICATION ENGINEER Work Phone: [facility] 05-12-2024 08:05-0400 Systolic blood pressure 92 mm[Hg] Nury Singhman SATELLITE MANAGER.ASSOCIATE SOFTWARE APPLICATION ENGINEER Work Phone: [facility] 05-08-2024 13:37-0400 Body temperature 97.2 [degF] Treatment Wstr Work Phone: [facility] 05-08-2024 13:37-0400 Diastolic blood pressure 73 mm[Hg] Treatment Wstr Work Phone: [facility] 05-08-2024 13:37-0400 Heart rate 71 /min Treatment Wstr Work Phone: [facility] 05-08-2024 13:37-0400 SaO2% (BldA) [Mass fraction] 100 % Treatment Wstr Work Phone: [facility] 05-08-2024 13:37-0400 Systolic blood pressure 112 mm[Hg] Treatment Wstr Work Phone: [facility] 05-07-2024 14:29-0400 Body mass index (BMI) [Ratio] 32.17 kg/m2 [facility] SATELLITE MANAGER.ASSOCIATE SOFTWARE APPLICATION ENGINEER Work Phone: [facility] 05-07-2024 14:29-0400 Body temperature 97.81 [degF] [facility] SATELLITE MANAGER.ASSOCIATE SOFTWARE APPLICATION ENGINEER Work Phone: [facility] 05-07-2024 14:29-0400 Body weight 83.8 kg [facility] SATELLITE MANAGER.ASSOCIATE SOFTWARE APPLICATION ENGINEER Work Phone: [facility] 05-07-2024 14:29-0400 Diastolic blood pressure 58 mm[Hg] [facility] SATELLITE MANAGER.ASSOCIATE SOFTWARE APPLICATION ENGINEER Work Phone: [facility] 05-07-2024 14:29-0400 Heart rate 68 /min [facility] SATELLITE MANAGER.ASSOCIATE SOFTWARE APPLICATION ENGINEER Work Phone: [facility] 05-07-2024 14:29-0400 Respiratory rate 18 /min [facility] SATELLITE MANAGER.ASSOCIATE SOFTWARE APPLICATION ENGINEER Work Phone: [facility] 05-07-2024 14:29-0400 SaO2% (BldA) [Mass fraction] 100 % [facility] SATELLITE MANAGER.ASSOCIATE SOFTWARE APPLICATION ENGINEER Work Phone: [facility] 05-07-2024 14:29-0400 Systolic blood pressure 91 mm[Hg] [facility] SATELLITE MANAGER.ASSOCIATE SOFTWARE APPLICATION ENGINEER Work Phone: [facility] 04-23-2024 13:34-0400 Body mass index (BMI) [Ratio] 30.99 kg/m2 Beata Boone Work Phone: [facility] 04-23-2024 13:34-0400 Body temperature 97.2 [degF] Beata Boone Work Phone: [facility] 04-23-2024 13:34-0400 Body weight 80.74 kg Beata Boone Work Phone: [facility] 04-23-2024 13:34-0400 Diastolic blood pressure 57 mm[Hg] Beata Boone Work Phone: [facility] 04-23-2024 13:34-0400 Heart rate 81 /min Beata Boone Work Phone: [facility] 04-23-2024 13:34-0400 SaO2% (BldA) [Mass fraction] 98 % Beata Boone Work Phone: [facility] 04-23-2024 13:34-0400 Systolic blood pressure 85 mm[Hg] Beata Boone Work Phone: [facility] 04-16-2024 13:25-0400 Body mass index (BMI) [Ratio] 30.61 kg/m2 Nury Benjamin SATELLITE MANAGER.ASSOCIATE SOFTWARE APPLICATION ENGINEER Work Phone: [facility] 04-16-2024 13:25-0400 Body weight 79.74 kg Nury Benjamin SATELLITE MANAGER.ASSOCIATE SOFTWARE APPLICATION ENGINEER Work Phone: [facility] 04-16-2024 13:25-0400 Diastolic blood pressure 58 mm[Hg] Nury Benjamin SATELLITE MANAGER.ASSOCIATE SOFTWARE APPLICATION ENGINEER Work Phone: [facility] 04-16-2024 13:25-0400 Heart rate 82 /min Nury Benjamin SATELLITE MANAGER.ASSOCIATE SOFTWARE APPLICATION ENGINEER Work Phone: [facility] 04-16-2024 13:25-0400 Respiratory rate 16 /min Nury Benjamin SATELLITE MANAGER.ASSOCIATE SOFTWARE APPLICATION ENGINEER Work Phone: [facility] 04-16-2024 13:25-0400 SaO2% (BldA) [Mass fraction] 99 % Nury Benjamin SATELLITE MANAGER.ASSOCIATE SOFTWARE APPLICATION ENGINEER Work Phone: [facility] 04-16-2024 13:25-0400 Systolic blood pressure 100 mm[Hg] Nury Benjamin SATELLITE MANAGER.ASSOCIATE SOFTWARE APPLICATION ENGINEER Work Phone: [facility] 03-31-2024 10:54-0400 Body height 161.4 cm Nury Benjamin SATELLITE MANAGER.ASSOCIATE SOFTWARE APPLICATION ENGINEER Work Phone: [facility] 03-31-2024 10:54-0400 Body mass index (BMI) [Ratio] 34.72 kg/m2 Nury Benjamin SATELLITE MANAGER.ASSOCIATE SOFTWARE APPLICATION ENGINEER Work Phone: [facility] 03-31-2024 10:54-0400 Body weight 90.45 kg Nury Singhman SATELLITE MANAGER.ASSOCIATE SOFTWARE APPLICATION ENGINEER Work Phone: [facility] 03-31-2024 10:54-0400 Diastolic blood pressure 62 mm[Hg] Nury Benjamin SATELLITE MANAGER.ASSOCIATE SOFTWARE APPLICATION ENGINEER Work Phone: [facility] 03-31-2024 10:54-0400 Heart rate 109 /min Nury Benjamin SATELLITE MANAGER.ASSOCIATE SOFTWARE APPLICATION ENGINEER Work Phone: [facility] 03-31-2024 10:54-0400 Respiratory rate 16 /min Nurymichael Singhman SATELLITE MANAGER.ASSOCIATE SOFTWARE APPLICATION ENGINEER Work Phone: [facility] 03-31-2024 10:54-0400 SaO2% (BldA) [Mass fraction] 98 % Nurymichael Singhman SATELLITE MANAGER.ASSOCIATE SOFTWARE APPLICATION ENGINEER Work Phone: [facility] 03-31-2024 10:54-0400 Systolic blood pressure 116 mm[Hg] Nurymichael Singhman SATELLITE MANAGER.ASSOCIATE SOFTWARE APPLICATION ENGINEER Work Phone: [facility] 03-18-2024 13:14-0400 Body temperature 98.8 [degF] Treatment Wstr Work Phone: [facility] 03-18-2024 13:14-0400 Diastolic blood pressure 80 mm[Hg] Treatment Wstr Work Phone: [facility] 03-18-2024 13:14-0400 Heart rate 109 /min Treatment Wstr Work Phone: [facility] 03-18-2024 13:14-0400 Respiratory rate 18 /min Treatment Wstr Work Phone: [facility] 03-18-2024 13:14-0400 Systolic blood pressure 134 mm[Hg] Treatment Wstr Work Phone: [facility] 03-10-2024 13:00-0400 Body temperature 97.9 [degF] Treatment Wstr Work Phone: [facility] 03-10-2024 13:00-0400 Diastolic blood pressure 59 mm[Hg] Treatment Wstr Work Phone: [facility] 03-10-2024 13:00-0400 Heart rate 96 /min Treatment Wstr Work Phone: [facility] 03-10-2024 13:00-0400 Systolic blood pressure 130 mm[Hg] Treatment Wstr Work Phone: [facility] 03-05-2024 13:25-0400 Body temperature 98.91 [degF] Treatment Wstr Work Phone: [facility] 03-05-2024 13:25-0400 Diastolic blood pressure 68 mm[Hg] Treatment Wstr Work Phone: [facility] 03-05-2024 13:25-0400 Heart rate 105 /min Treatment Wstr Work Phone: [facility] 03-05-2024 13:25-0400 Respiratory rate 18 /min Treatment Wstr Work Phone: [facility] 03-05-2024 13:25-0400 Systolic blood pressure 130 mm[Hg] Treatment Wstr Work Phone: [facility] 02-25-2024 13:55-0400 Body temperature 97.81 [degF] Treatment Wstr Work Phone: [facility] 02-25-2024 13:55-0400 Diastolic blood pressure 68 mm[Hg] Treatment Wstr Work Phone: [facility] 02-25-2024 13:55-0400 Heart rate 102 /min Treatment Wstr Work Phone: [facility] 02-25-2024 13:55-0400 Respiratory rate 16 /min Treatment Wstr Work Phone: [facility] 02-25-2024 13:55-0400 SaO2% (BldA) [Mass fraction] 98 % Treatment Wstr Work Phone: [facility] 02-25-2024 13:55-0400 Systolic blood pressure 122 mm[Hg] Treatment Wstr Work Phone: [facility] 02-18-2024 13:29-0400 Body mass index (BMI) [Ratio] 35.17 kg/m2 Carla Caroenter SATELLITE MANAGER.ASSOCIATE SOFTWARE APPLICATION ENGINEER Work Phone: [facility] 02-18-2024 13:29-0400 Body temperature 98.29 [degF] Carla Caroenter SATELLITE MANAGER.ASSOCIATE SOFTWARE APPLICATION ENGINEER Work Phone: [facility] 02-18-2024 13:29-0400 Body weight 93.44 kg Carla Caroenter SATELLITE MANAGER.ASSOCIATE SOFTWARE APPLICATION ENGINEER Work Phone: [facility] 02-18-2024 13:29-0400 Diastolic blood pressure 66 mm[Hg] Carla Franco SATELLITE MANAGER.ASSOCIATE SOFTWARE APPLICATION ENGINEER Work Phone: [facility] 02-18-2024 13:29-0400 Heart rate 99 /min Carla Caroenter SATELLITE MANAGER.ASSOCIATE SOFTWARE APPLICATION ENGINEER Work Phone: [facility] 02-18-2024 13:29-0400 SaO2% (BldA) [Mass fraction] 100 % Carla Caroenter SATELLITE MANAGER.ASSOCIATE SOFTWARE APPLICATION ENGINEER Work Phone: [facility] 02-18-2024 13:29-0400 Systolic blood pressure 106 mm[Hg] Carla Caroenter SATELLITE MANAGER.ASSOCIATE SOFTWARE APPLICATION ENGINEER Work Phone: [facility] 01-17-2024 15:06-0400 Body temperature 99.39 [degF] Treatment Wstr Work Phone: [facility] 01-17-2024 15:06-0400 Diastolic blood pressure 65 mm[Hg] Treatment Wstr Work Phone: [facility] 01-17-2024 15:06-0400 Heart rate 100 /min Treatment Wstr Work Phone: [facility] 01-17-2024 15:06-0400 Respiratory rate 18 /min Treatment Wstr Work Phone: [facility] 01-17-2024 15:06-0400 SaO2% (BldA) [Mass fraction] 97 % Treatment Wstr Work Phone: [facility] 01-17-2024 15:06-0400 Systolic blood pressure 108 mm[Hg] Treatment Wstr Work Phone: [facility] 01-15-2024 13:00-0400 Body temperature 98.6 [degF] Treatment Wstr Work Phone: [facility] 01-15-2024 13:00-0400 Diastolic blood pressure 68 mm[Hg] Treatment Wstr Work Phone: [facility] 01-15-2024 13:00-0400 Heart rate 94 /min Treatment Wstr Work Phone: [facility] 01-15-2024 13:00-0400 Respiratory rate 16 /min Treatment Wstr Work Phone: [facility] 01-15-2024 13:00-0400 SaO2% (BldA) [Mass fraction] 98 % Treatment Wstr Work Phone: [facility] 01-15-2024 13:00-0400 Systolic blood pressure 116 mm[Hg] Treatment Wstr Work Phone: [facility] 01-03-2024 11:00-0400 Body temperature 97.7 [degF] Treatment Wstr Work Phone: [facility] 01-03-2024 11:00-0400 Diastolic blood pressure 69 mm[Hg] Treatment Wstr Work Phone: [facility] 01-03-2024 11:00-0400 Heart rate 99 /min Treatment Wstr Work Phone: [facility] 01-03-2024 11:00-0400 Systolic blood pressure 148 mm[Hg] Treatment Wstr Work Phone: [facility] 12-30-2023 13:45-0400 Body mass index (BMI) [Ratio] 36.54 kg/m2 Juan Locke DO Work Phone: [facility] 12-30-2023 13:45-0400 Body temperature 96.3 [degF] Juan Locke DO Work Phone: [facility] 12-30-2023 13:45-0400 Body weight 97.07 kg Juan Locke DO Work Phone: [facility] 12-30-2023 13:45-0400 Diastolic blood pressure 60 mm[Hg] Juan Locke DO Work Phone: [facility] 12-30-2023 13:45-0400 Heart rate 80 /min Juan Locke DO Work Phone: [facility] 12-30-2023 13:45-0400 Respiratory rate 16 /min Juan Locke DO Work Phone: [facility] 12-30-2023 13:45-0400 Systolic blood pressure 120 mm[Hg] Juan Locke DO Work Phone: [facility] 12-27-2023 13:31-0400 Body temperature 97.39 [degF] Treatment Wstr Work Phone: [facility] 12-27-2023 13:31-0400 Diastolic blood pressure 63 mm[Hg] Treatment Wstr Work Phone: [facility] 12-27-2023 13:31-0400 Heart rate 113 /min Treatment Wstr Work Phone: [facility] 12-27-2023 13:31-0400 Respiratory rate 22 /min Treatment Wstr Work Phone: [facility] 12-27-2023 13:31-0400 Systolic blood pressure 130 mm[Hg] Treatment Wstr Work Phone: [facility] 12-17-2023 13:15-0400 Body temperature 98.8 [degF] Beata Boone Work Phone: [facility] 12-17-2023 13:15-0400 Body weight 97.52 kg Beata Boone Work Phone: [facility] 12-17-2023 13:15-0400 Diastolic blood pressure 65 mm[Hg] Beata Boone Work Phone: [facility] 12-17-2023 13:15-0400 Heart rate 119 /min Beata Boone Work Phone: [facility] 12-17-2023 13:15-0400 SaO2% (BldA) [Mass fraction] 99 % Beata Boone Work Phone: [facility] 12-17-2023 13:15-0400 Systolic blood pressure 116 mm[Hg] Beata Boone Work Phone: [facility] 11-15-2023 14:00-0500 Body temperature 97 [degF] Treatment Wstr Work Phone: [facility] 11-15-2023 14:00-0500 Diastolic blood pressure 79 mm[Hg] Treatment Wstr Work Phone: [facility] 11-15-2023 14:00-0500 Heart rate 110 /min Treatment Wstr Work Phone: [facility] 11-15-2023 14:00-0500 Respiratory rate 16 /min Treatment Wstr Work Phone: [facility] 11-15-2023 14:00-0500 SaO2% (BldA) [Mass fraction] 98 % Treatment Wstr Work Phone: [facility] 11-15-2023 14:00-0500 Systolic blood pressure 159 mm[Hg] Treatment Wstr Work Phone: [facility] 11-13-2023 13:30-0500 Body temperature 97.11 [degF] Treatment Wstr Work Phone: [facility] 11-13-2023 13:30-0500 Diastolic blood pressure 76 mm[Hg] Treatment Wstr Work Phone: [facility] 11-13-2023 13:30-0500 Heart rate 90 /min Treatment Wstr Work Phone: [facility] 11-13-2023 13:30-0500 Respiratory rate 16 /min Treatment Wstr Work Phone: [facility] 11-13-2023 13:30-0500 SaO2% (BldA) [Mass fraction] 97 % Treatment Wstr Work Phone: [facility] 11-13-2023 13:30-0500 Systolic blood pressure 142 mm[Hg] Treatment Wstr Work Phone: [facility] 11-08-2023 11:01-0500 Body temperature 98.8 [degF] Treatment Wstr Work Phone: [facility] 11-08-2023 11:01-0500 Diastolic blood pressure 81 mm[Hg] Treatment Wstr Work Phone: [facility] 11-08-2023 11:01-0500 Heart rate 106 /min Treatment Wstr Work Phone: [facility] 11-08-2023 11:01-0500 Respiratory rate 16 /min Treatment Wstr Work Phone: [facility] 11-08-2023 11:01-0500 Systolic blood pressure 137 mm[Hg] Treatment Wstr Work Phone: [facility] 11-01-2023 11:41-0500 Body temperature 97.7 [degF] Treatment Wstr Work Phone: [facility] 11-01-2023 11:41-0500 Diastolic blood pressure 73 mm[Hg] Treatment Wstr Work Phone: [facility] 11-01-2023 11:41-0500 Heart rate 107 /min Treatment Wstr Work Phone: [facility] 11-01-2023 11:41-0500 SaO2% (BldA) [Mass fraction] 97 % Treatment Wstr Work Phone: [facility] 11-01-2023 11:41-0500 Systolic blood pressure 157 mm[Hg] Treatment Wstr Work Phone: [facility] 10-29-2023 12:16-0500 Diastolic blood pressure 76 mm[Hg] Treatment Wstr Work Phone: [facility] 10-29-2023 12:16-0500 Systolic blood pressure 127 mm[Hg] Treatment Wstr Work Phone: [facility] 10-29-2023 11:25-0500 Body temperature 99 [degF] Treatment Wstr Work Phone: [facility] 10-29-2023 11:25-0500 Heart rate 100 /min Treatment Wstr Work Phone: [facility] 10-29-2023 11:25-0500 Respiratory rate 16 /min Treatment Wstr Work Phone: [facility] 10-29-2023 11:25-0500 SaO2% (BldA) [Mass fraction] 98 % Treatment Wstr Work Phone: [facility] 10-17-2023 11:24-0500 Body temperature 97.9 [degF] Laura Praisler-Wood SATELLITE MANAGER.ASSOCIATE SOFTWARE APPLICATION ENGINEER Work Phone: [facility] 10-17-2023 11:24-0500 Body weight 104.33 kg Laura Praisler-Wood SATELLITE MANAGER.ASSOCIATE SOFTWARE APPLICATION ENGINEER Work Phone: [facility] 10-17-2023 11:24-0500 Diastolic blood pressure 67 mm[Hg] Laura Praisler-Wood SATELLITE MANAGER.ASSOCIATE SOFTWARE APPLICATION ENGINEER Work Phone: [facility] 10-17-2023 11:24-0500 Heart rate 113 /min Laura Praisler-Wood SATELLITE MANAGER.ASSOCIATE SOFTWARE APPLICATION ENGINEER Work Phone: [facility] 10-17-2023 11:24-0500 Respiratory rate 20 /min Laura Praisler-Wood SATELLITE MANAGER.ASSOCIATE SOFTWARE APPLICATION ENGINEER Work Phone: [facility] 10-17-2023 11:24-0500 SaO2% (BldA) [Mass fraction] 100 % Laura Praisler-Wood SATELLITE MANAGER.ASSOCIATE SOFTWARE APPLICATION ENGINEER Work Phone: [facility] 10-17-2023 11:24-0500 Systolic blood pressure 146 mm[Hg] Laura Praisler-Wood SATELLITE MANAGER.ASSOCIATE SOFTWARE APPLICATION ENGINEER Work Phone: [facility] 08-21-2023 11:00-0500 Body temperature 98.2 [degF] Clayton Novak DO Work Phone: [facility] 08-21-2023 11:00-0500 Body weight 102.06 kg Clayton Masci DO Work Phone: [facility] 08-21-2023 11:00-0500 Diastolic blood pressure 83 mm[Hg] Clayton Masci DO Work Phone: [facility] 08-21-2023 11:00-0500 Heart rate 83 /min Clayton Masci DO Work Phone: [facility] 08-21-2023 11:00-0500 SaO2% (BldA) [Mass fraction] 99 % Clayton Masci DO Work Phone: [facility] 08-21-2023 11:00-0500 Systolic blood pressure 134 mm[Hg] Clayton Masci DO Work Phone: [facility] 08-19-2023 15:05-0500 Body temperature 96.91 [degF] Nita Howard APRN.ASSOCIATE SOFTWARE APPLICATION ENGINEER Work Phone: [facility] 08-19-2023 15:05-0500 Body weight 102.51 kg Nita Howard APRN.ASSOCIATE SOFTWARE APPLICATION ENGINEER Work Phone: [facility] 08-19-2023 15:05-0500 Diastolic blood pressure 78 mm[Hg] Nita Howard APRN.ASSOCIATE SOFTWARE APPLICATION ENGINEER Work Phone: [facility] 08-19-2023 15:05-0500 Heart rate 88 /min Nita Howard APRN.ASSOCIATE SOFTWARE APPLICATION ENGINEER Work Phone: [facility] 08-19-2023 15:05-0500 Respiratory rate 16 /min Nita Howard APRN.ASSOCIATE SOFTWARE APPLICATION ENGINEER Work Phone: [facility] 08-19-2023 15:05-0500 SaO2% (BldA) [Mass fraction] 98 % Nita Howard APRN.ASSOCIATE SOFTWARE APPLICATION ENGINEER Work Phone: [facility] 08-19-2023 15:05-0500 Systolic blood pressure 136 mm[Hg] Nita Howard APRN.ASSOCIATE SOFTWARE APPLICATION ENGINEER Work Phone: [facility] 07-29-2023 16:08-0500 Body temperature 97.7 [degF] Yonathan Willoughby MD Work Phone: [facility] 07-29-2023 16:08-0500 Body weight 103.87 kg Yonathan Willoughby MD Work Phone: [facility] 07-29-2023 16:08-0500 Diastolic blood pressure 70 mm[Hg] Yonathan Willoughby MD Work Phone: [facility] 07-29-2023 16:08-0500 Heart rate 116 /min Yonathan Willoughby MD Work Phone: [facility] 07-29-2023 16:08-0500 Respiratory rate 18 /min Yonathan Willoughby MD Work Phone: [facility] 07-29-2023 16:08-0500 SaO2% (BldA) [Mass fraction] 97 % Yonathan Willoughby MD Work Phone: [facility] 07-29-2023 16:08-0500 Systolic blood pressure 142 mm[Hg] Yonathan Willoughby MD Work Phone: [facility] 07-27-2023 11:08-0500 Body temperature 97.11 [degF] Juan Locke DO Work Phone: [facility] 07-27-2023 11:08-0500 Body weight 102.06 kg Juan Locke DO Work Phone: [facility] 07-27-2023 11:08-0500 Diastolic blood pressure 70 mm[Hg] Juan Locke DO Work Phone: [facility] 07-27-2023 11:08-0500 Heart rate 80 /min Juan Locke DO Work Phone: [facility] 07-27-2023 11:08-0500 Respiratory rate 20 /min Juan Locke DO Work Phone: [facility] 07-27-2023 11:08-0500 Systolic blood pressure 124 mm[Hg] Juan Locke DO Work Phone: [facility] 05-07-2023 14:06-0400 Body height 163 cm Clayton Masci DO Work Phone: [facility] 05-07-2023 14:06-0400 Body temperature 97.59 [degF] Clayton Masci DO Work Phone: [facility] 05-07-2023 14:06-0400 Body weight 98.2 kg Clayton Masci DO Work Phone: [facility] 05-07-2023 14:06-0400 Diastolic blood pressure 74 mm[Hg] Clayton Masci DO Work Phone: [facility] 05-07-2023 14:06-0400 Heart rate 98 /min Clayton Masci DO Work Phone: [facility] 05-07-2023 14:06-0400 SaO2% (BldA) [Mass fraction] 97 % Clayton Masci DO Work Phone: [facility] 05-07-2023 14:06-0400 Systolic blood pressure 129 mm[Hg] Clayton Masci DO Work Phone: [facility] 03-05-2023 13:43-0400 Body temperature 97 [degF] Juan Locke DO Work Phone: [facility] 03-05-2023 13:43-0400 Body weight 98.43 kg Juan Locke DO Work Phone: [facility] 03-05-2023 13:43-0400 Diastolic blood pressure 60 mm[Hg] Juan Locke DO Work Phone: [facility] 03-05-2023 13:43-0400 Heart rate 88 /min Juan Locke DO Work Phone: [facility] 03-05-2023 13:43-0400 Respiratory rate 16 /min Juan Locke DO Work Phone: [facility] 03-05-2023 13:43-0400 Systolic blood pressure 116 mm[Hg] Juan Locke DO Work Phone: [facility] 02-14-2023 12:23-0400 Body temperature 97.2 [degF] Jorge Bean APRN.ASSOCIATE SOFTWARE APPLICATION ENGINEER Work Phone: [facility] 02-14-2023 12:23-0400 Body weight 97.8 kg Jorge Simpsonjanneth SATELLITE MANAGER.ASSOCIATE SOFTWARE APPLICATION ENGINEER Work Phone: [facility] 02-14-2023 12:23-0400 Diastolic blood pressure 78 mm[Hg] Jorge Geneva SATELLITE MANAGER.ASSOCIATE SOFTWARE APPLICATION ENGINEER Work Phone: [facility] 02-14-2023 12:23-0400 Heart rate 101 /min Jorge Bean SATELLITE MANAGER.ASSOCIATE SOFTWARE APPLICATION ENGINEER Work Phone: [facility] 02-14-2023 12:23-0400 Respiratory rate 14 /min Jorge Whitesyl SATELLITE MANAGER.ASSOCIATE SOFTWARE APPLICATION ENGINEER Work Phone: [facility] 02-14-2023 12:23-0400 SaO2% (BldA) [Mass fraction] 97 % Jorge Bean SATELLITE MANAGER.ASSOCIATE SOFTWARE APPLICATION ENGINEER Work Phone: [facility] 02-14-2023 12:23-0400 Systolic blood pressure 158 mm[Hg] Jorge Geneva SATELLITE MANAGER.ASSOCIATE SOFTWARE APPLICATION ENGINEER Work Phone: [facility] 11-28-2022 15:04-0400 Body temperature 97 [degF] Juan Locke DO Work Phone: [facility] 11-28-2022 15:04-0400 Body weight 101.61 kg Juan Locke DO Work Phone: [facility] 11-28-2022 15:04-0400 Diastolic blood pressure 64 mm[Hg] Juan Locke DO Work Phone: [facility] 11-28-2022 15:04-0400 Heart rate 88 /min Juan Locke DO Work Phone: [facility] 11-28-2022 15:04-0400 Respiratory rate 20 /min Juan Locke DO Work Phone: [facility] 11-28-2022 15:04-0400 Systolic blood pressure 128 mm[Hg] Juan Locke DO Work Phone: [facility] 11-09-2022 09:52-0500 Body temperature 98.49 [degF] Krislyn Aberegg PA Work Phone: [facility] 11-09-2022 09:52-0500 Body weight 100.61 kg Krislyn Aberegg PA Work Phone: [facility] 11-09-2022 09:52-0500 Diastolic blood pressure 72 mm[Hg] Krislyn Aberegg PA Work Phone: [facility] 11-09-2022 09:52-0500 Heart rate 109 /min Krislyn Aberegg PA Work Phone: [facility] 11-09-2022 09:52-0500 Respiratory rate 20 /min Krislyn Aberegg PA Work Phone: [facility] 11-09-2022 09:52-0500 SaO2% (BldA) [Mass fraction] 95 % Krislyn Aberegg PA Work Phone: [facility] 11-09-2022 09:52-0500 Systolic blood pressure 112 mm[Hg] Krislyn Aberegg PA Work Phone: [facility] 05-29-2022 15:04-0400 Body temperature 97.39 [degF] Nita Howard APRN.ASSOCIATE SOFTWARE APPLICATION ENGINEER Work Phone: [facility] 05-29-2022 15:04-0400 Body weight 97.07 kg Nita Howard APRN.ASSOCIATE SOFTWARE APPLICATION ENGINEER Work Phone: [facility] 05-29-2022 15:04-0400 Diastolic blood pressure 78 mm[Hg] Nita Howard APRN.ASSOCIATE SOFTWARE APPLICATION ENGINEER Work Phone: [facility] 05-29-2022 15:04-0400 Heart rate 91 /min Nita Howard APRN.ASSOCIATE SOFTWARE APPLICATION ENGINEER Work Phone: [facility] 05-29-2022 15:04-0400 Respiratory rate 16 /min Nita Howard APRN.ASSOCIATE SOFTWARE APPLICATION ENGINEER Work Phone: [facility] 05-29-2022 15:04-0400 SaO2% (BldA) [Mass fraction] 98 % Nita Howard SATELLITE MANAGER.ASSOCIATE SOFTWARE APPLICATION ENGINEER Work Phone: [facility] 05-29-2022 15:04-0400 Systolic blood pressure 122 mm[Hg] Nita Lee JENKINS.ASSOCIATE SOFTWARE APPLICATION ENGINEER Work Phone: [facility] 03-28-2022 14:15-0400 Body height 162.6 cm Luis Enrique Zuniga MD Work Phone: [facility] 03-28-2022 14:15-0400 Body weight 95.71 kg Luis Enrique Zuniga MD Work Phone: [facility] 03-28-2022 14:15-0400 Diastolic blood pressure 68 mm[Hg] Luis Enrique Zuniga MD Work Phone: [facility] 03-28-2022 14:15-0400 Heart rate 86 /min Luis Enrique Zuniga MD Work Phone: [facility] 03-28-2022 14:15-0400 Systolic blood pressure 115 mm[Hg] Luis Enrique Zuniga MD Work Phone: [facility] 01-16-2022 10:22-0400 Body height 162.6 cm Alberto Larkin MD Work Phone: [facility] 01-16-2022 10:22-0400 Body temperature 97.39 [degF] Alberto Larkin MD Work Phone: [facility] 01-16-2022 10:22-0400 Body weight 93.89 kg Alberto Larkin MD Work Phone: [facility] 01-16-2022 10:22-0400 Diastolic blood pressure 68 mm[Hg] Alberto Larkin MD Work Phone: [facility] 01-16-2022 10:22-0400 Heart rate 99 /min Alberto Larkin MD Work Phone: [facility] 01-16-2022 10:22-0400 SaO2% (BldA) [Mass fraction] 99 % Alberto Larkin MD Work Phone: [facility] 01-16-2022 10:22-0400 Systolic blood pressure 128 mm[Hg] Alberto Larkin MD Work Phone: [facility] 01-05-2022 09:36-0400 Body weight 92.99 kg Juan Locke DO Work Phone: [facility] 01-05-2022 09:36-0400 Diastolic blood pressure 70 mm[Hg] Juan Locke DO Work Phone: [facility] 01-05-2022 09:36-0400 Heart rate 84 /min Juan Locke DO Work Phone: [facility] 01-05-2022 09:36-0400 Systolic blood pressure 128 mm[Hg] Juan Locke DO Work Phone: [facility] NEGATED: Highlighted [id number] 13:04-0400 BMI (Body Mass Index) 41 kg/m2 [facility] Work Phone: NEGATED: Highlighted [id number] 13:04-0400 BP Diastolic 88 mm[Hg] [facility] Work Phone: NEGATED: Highlighted [id number] 13:04-0400 BP Systolic 139 mm[Hg] [facility] Work Phone: NEGATED: Highlighted [id number] 13:04-0400 Height 162.56 cm [facility] Work Phone: NEGATED: Highlighted [id number] 13:04-0400 Height 163 cm [facility] Work Phone: NEGATED: Highlighted [id number] 13:04-0400 Pulse (Heart Rate) 102 /min Karinaluz Valdes [facility] Work Phone: NEGATED: Highlighted [id number] 13:04-0400 Weight 107.96 kg Karina Valdes [facility] Work Phone: NEGATED: Highlighted [id number] 13: Weight 108 kg Karina Valdes [facility] Work Phone: Encounters Encounter Date Encounter Type Care Provider Facility Start: 05-20-2025 End: 05-20-2025 Follow-up encounter Little KENT Work Phone: [facility] Comment on above: Results Start: 05-19-2025 End: 05-19-2025 Patient encounter procedure Key Ly ASSOCIATE SOFTWARE APPLICATION ENGINEER Work Phone: [facility] Comment on above: Burning with urinati on (Primary Dx); Acute cystitis with hematuria Start: 05-19-2025 End: 05-20-2025 ambulatory JUAN LOCKE Facility:[facility] Start: 05-13-2025 End: 05-13-2025 Telephone encounter Juan Locke DO Work Phone: [facility] [place] Comment on above: UTI s/s Start: 05-05-2025 End: 05-05-2025 Telephone encounter Beata Boone Work Phone: Hematology/Oncology Comment on above: Patient Question Start: 04-26-2025 End: 04-26-2025 Patient encounter procedure Kim Wu MD Work Phone: [facility] Comment on above: Abdominal wall herni a (Primary Dx); Cirrhosis, nonalcoholic (HCC); Portal venous hypertension (HCC); Thrombocytopenia; Portal hypertension with esophageal varices (HCC) Start: 04-26-2025 End: 04-26-2025 ambulatory KIM WU Facility:[facility] Start: 04-20-2025 End: 04-20-2025 ambulatory JUAN LOCKE Facility:[facility] Start: 04-14-2025 End: 04-14-2025 ambulatory JUAN LOCKE Facility:[facility] Start: 04-14-2025 End: 04-14-2025 Patient encounter procedure Juan Locke DO Work Phone: [facility] Comment on above: Uncontrolled type 2 diabetes mellitus with hyperglycemia (HCC) (Primary Dx); Situational insomnia; Elevated alkaline phosphatase level; Other iron deficiency anemia; Vitamin B12 deficiency; Hypothyroidism, acquired; Osteopenia, senile; Cirrhosis, nonalcoholic (HCC); Hypertension, essential; Iron deficiency anemia, unspecified iron deficiency anemia type; Vitamin D deficiency Start: 04-14-2025 End: 04-14-2025 ambulatory JUAN AMATOON Facility:[facility] Start: 04-14-2025 End: 04-14-2025 Telephone encounter Juan Amatoon DO Work Phone: [facility] Comment on above: Patient Question (Sanjay proctor was supposed to write down a supplement for patients bladder. But neglected to do so. Please contact patient with name of supplement ) Start: 04-07-2025 End: 04-09-2025 Orders Only Beata Boone Work Phone: Hematology/Oncology Comment on above: Iron deficiency anem ia secondary to inadequate dietary iron intake (Primary Dx); Iron malabsorption (HCC) Start: 04-06-2025 End: 04-06-2025 ambulatory Treatment Rm 15 [facility] [employer] Work Phone: Hematology/Oncology Comment on above: Iron deficiency anem ia secondary to inadequate dietary iron intake (Primary Dx); Iron malabsorption (HCC); Rectal bleeding Start: 04-01-2025 End: 04-01-2025 ambulatory Treatment Rm 14 [facility] [employer] Work Phone: Hematology/Oncology Comment on above: Iron deficiency anem ia secondary to inadequate dietary iron intake (Primary Dx); Iron malabsorption (HCC); Rectal bleeding Start: 03-26-2025 End: 03-26-2025 Refill Juan Thomson Locke DO Work Phone: [facility] Comment on above: Refill Request Iron deficiency anem ia secondary to inadequate dietary iron intake (Primary Dx); Iron malabsorption (HCC); Rectal bleeding Start: 03-25-2025 End: 03-26-2025 Refill Juan Thomson Locke DO Work Phone: [facility] Comment on above: Refill Request Start: 03-24-2025 End: 03-24-2025 ambulatory Treatment Rm 15 [facility] Work Phone: Hematology/Oncology Comment on above: Iron deficiency anem ia secondary to inadequate dietary iron intake (Primary Dx); Iron malabsorption (HCC); Rectal bleeding Start: 03-22-2025 End: 03-22-2025 ambulatory Treatment Rm 16 [facility] Work Phone: Hematology/Oncology Comment on above: Iron deficiency anem ia due to chronic blood loss (Primary Dx); Iron deficiency anemia secondary to inadequate dietary iron intake; Iron malabsorption (HCC); Rectal bleeding Start: 03-18-2025 End: 03-18-2025 Follow-up encounter Kavitha Hayes APRN.CNP Work Phone: [facility] Start: 03-17-2025 End: 03-17-2025 ambulatory JUAN LOCKE Facility:[facility] Start: 03-12-2025 End: 05-12-2025 Orders Only Baeta Boone Work Phone: Hematology/Oncology Start: 03-11-2025 End: 03-11-2025 Patient encounter procedure Beata Boone Work Phone: Hematology/Oncology Start: 03-11-2025 End: 03-11-2025 ambulatory Beata Boone Work Phone: Hematology/Oncology Comment on above: Anemia, unspecified type (Primary Dx); Iron deficiency anemia due to chronic blood loss; Thrombocytopenia; Iron malabsorption (HCC) Start: 02-26-2025 End: 02-26-[address] Juan Locke DO Work Phone: [facility] Work Phone: Start: 02-26-2025 End: 02-26-2025 Patient encounter procedure Denan HINOJOSA -Laboratory Work Phone: Start: 02-26-2025 End: 02-26-2025 Patient encounter procedure Deann HINOJOSA -[facility] Work Phone: Start: 02-26-2025 End: 02-26-[address] Juan Locke DO Work Phone: [facility] Work Phone: Start: 02-26-2025 End: 02-26-2025 ambulatory Deann Haynes Facility:[facility] Start: 02-12-2025 Non-patient / Non-visit Dr. Ibeth Iraheta MD -[place] [facility] Work Phone: Start: 02-12-2025 ambulatory Amaya Cao NON DESTRUCTIVE TESTING SCIENTIST Fac ility:[facility] Start: 02-11-2025 Non-patient / Non-visit Ronaldisela Del Toro nd DO -[facility] Start: 02-11-2025 Non-patient / Non-visit Dr. Ibeth Iraheta MD -[place] [facility] Work Phone: Start: 02-10-2025 Non-patient / Non-visit Ronald Del Toro nd DO -[facility] Start: 02-09-2025 Non-patient / Non-visit Ronaldjosue Del Toro nd DO -[facility] Start: 02-09-2025 Non-patient / Non-visit Dr. Kwasi chan DO -[facility] [facility] Work Phone: Start: 02-09-2025 ambulatory Kwasi Nieves Facility:[facility] Start: 02-09-2025 End: 02-12-2025 Evaluation and management of inpatient Dr. Kwasi Nieves DO -Progressive Care Unit Work Phone: Start: 02-03-2025 ambulatory Hubert Galvan Facility:[facility] Start: 2025 End: 2025 Telephone encounter Nury Alexander APRN.CNP Work Phone: [facility] Comment on above: Patient Update Start: 01-21-2025 End: 01-21-2025 Office outpatient visit 25 minutes Nury Alexander APRN.CNP Work Phone: [facility] Comment on above: Acute midline low ba ck pain without sciatica (Primary Dx); Other iron deficiency anemia; Uncontrolled type 2 diabetes mellitus with hyperglycemia (HCC); Flank hernia; Liver disease; History of nephrectomy, left Start: 01-21-2025 End: 01-21-2025 ambulatory JUAN AMATOON Facility:[facility] Start: 01-11-2025 End: 01-20-2025 Telephone encounter Juan Locke DO Work Phone: [facility] [place] Comment on above: Results, Lab; Orders ; Refill Request Start: 01-08-2025 End: 01-08-2025 ambulatory JUAN AMATOON Facility:[facility] Start: 12-31-2024 End: 12-31-2024 Refill Juan Amatoon DO Work Phone: [facility] Comment on above: Med Change Request Start: 12-28-2024 End: 12-28-2024 Refill Juan Locke DO Work Phone: [facility] Comment on above: Refill Request Start: 12-18-2024 End: 12-18-2024 Refill Kavitha Hayes APRN.ASSOCIATE SOFTWARE APPLICATION ENGINEER Work Phone: [facility] Comment on above: Refill Request Start: 12-16-2024 End: 12-16-2024 Office outpatient visit 25 minutes Mery Hernandez MD Work Phone: [facility] Comment on above: Right lower quadrant abdominal pain (Primary Dx) Start: 12-16-2024 End: 12-16-2024 ambulatory MERY HERNANDEZ Facility:[facility] Start: 12-15-2024 End: 12-15-2024 ambulatory Treatment Rm 14 [facility] Work Phone: Hematology/Oncology Comment on above: Iron deficiency anem ia due to chronic blood loss (Primary Dx) Start: 12-11-2024 End: 12-11-2024 ambulatory Treatment Rm 14 [facility] Work Phone: Hematology/Oncology Comment on above: Iron deficiency anem ia due to chronic blood loss (Primary Dx) Start: 12-10-2024 End: 12-11-2024 Telephone encounter Juan Locke DO Work Phone: [facility] Comment on above: Medication Request Start: 12-07-2024 End: 12-07-2024 Patient encounter procedure Ronald Zimmer -[facility] Work Phone: Start: 12-07-2024 End: 12-07-2024 ambulatory Ronald Zimmer Facility:[facility] Start: 11-25-2024 End: 11-25-2024 ambulatory JUAN Alix VELASQUEZLOCKE Facility:[facility] Start: 11-25-2024 End: 11-25-2024 Patient encounter procedure Juan Locke DO Work Phone: [facility] Comment on above: Uncontrolled type 2 diabetes mellitus with hyperglycemia (HCC) (Primary Dx); Other iron deficiency anemia; Encounter for screening mammogram for malignant neoplasm of breast; Hypothyroidism, acquired; Vitamin B12 deficiency; Encounter for screening for osteoporosis; Asymptomatic postmenopausal status; Osteopenia, senile; Cirrhosis, nonalcoholic (HCC); Hypertension, essential; Iron deficiency anemia, unspecified iron deficiency anemia type Start: 11-20-2024 End: 11-20-2024 Patient encounter procedure Deann HINOJOSA -[facility] Work Phone: Start: 11-20-2024 End: 11-20-2024 ambulatory Deann Haynes Facility:[facility] Start: 11-19-2024 End: 11-27-2024 Follow-up encounter Nury Alexander APRN.CNP Work Phone: [facility] Start: 11-18-2024 End: 11-18-2024 ambulatory Treatment Rm 15 [facility] Work Phone: Hematology/Oncology Comment on above: Iron deficiency anem ia due to chronic blood loss (Primary Dx) Start: 11-17-2024 End: 11-17-2024 Subsequent hospital visit by physician Elías [facility] Work Phone: Radiology Comment on above: Portal venous hypert ension (HCC) [K76.6] Start: 11-17-2024 End: 11-17-2024 ambulatory JUAN LOCKE Facility:[facility] Start: 11-17-2024 End: 11-17-2024 ambulatory NURY ALEXANDER Facility:[facility] Start: 11-17-2024 End: 11-17-2024 Office outpatient visit 25 minutes Nury Alexander NEO Work Phone: [facility] Comment on above: Portal venous hypert ension (HCC) (Primary Dx); Iron deficiency anemia, unspecified iron deficiency anemia type; Thrombocytopenia (HCC); Iron malabsorption; Esophageal varices determined by endoscopy (HCC) Start: 11-10-2024 Non-patient / Non-visit Dr. Miranda Tubbs MD -[place] [facility] Work Phone: Start: 11-10-2024 End: 11-23-2024 Telephone encounter Juan Locke DO Work Phone: [facility] Comment on above: Patient Update Start: 11-09-2024 End: 11-12-2024 Telephone encounter Beata Boone Work Phone: Hematology/Oncology Comment on above: Patient Update Start: 11-09-2024 Non-patient / Non-visit Dr. Miranda Tubbs MD -[place] [facility] Work Phone: Start: 11-08-2024 Non-patient / Non-visit Dr. Karina DOWNING [facility] Work Phone: Start: 11-07-2024 Non-patient / Non-visit Ronald Del Toro nd, DO [facility] Start: 11-07-2024 Non-patient / Non-visit Dr. Collins [facility] Work Phone: Start: 11-07-2024 ambulatory Momo Ryan ility:[facility] Start: 11-07-2024 End: 11-10-2024 Evaluation and management of inpatient Dr. Anuj Tubbs MD -Progressive Care Unit Work Phone: Start: 11-04-2024 End: 11-04-2024 Follow-up encounter Beata Boone Work Phone: Hematology/Oncology Start: 11-04-2024 End: 11-05-2024 Telephone encounter Beata Boone Work Phone: Hematology/Oncology Comment on above: Appointment Start: 11-03-2024 End: 11-03-2024 Orders Only Beata Boone Work Phone: Hematology/Oncology Comment on above: Iron deficiency anem ia due to chronic blood loss (Primary Dx); Iron malabsorption; Rectal bleeding Start: 11-02-2024 End: 11-02-2024 Nutrition therapy Pavithra Del Rosario RD Nutrition Therapy Comment on above: Assessment; Patient Education Start: 11-02-2024 End: 11-02-[address] RD Nutrition Therapy Start: 10-26-2024 End: 10-26-2024 Patient encounter procedure Beata Boone Work Phone: Hematology/Oncology Start: 10-26-2024 End: 10-26-2024 ambulatory Beata Boone Work Phone: Hematology/Oncology Comment on above: Iron deficiency anem ia due to chronic blood loss (Primary Dx); Splenomegaly; Thrombocytopenia (HCC); Iron malabsorption; Rectal bleeding Start: 10-22-2024 End: 10-22-2024 Patient encounter procedure Ronald Zimmer -[facility] Work Phone: Start: 10-22-2024 End: 10-22-2024 ambulatory Ronald Zimmer Facility:[facility] Start: 10-20-2024 End: 10-21-2024 Telephone encounter Beata Boone Work Phone: Hematology/Oncology Start: 10-13-2024 End: 10-13-2024 ambulatory Treatment Rm 14 [facility] [employer] Work Phone: Hematology/Oncology Comment on above: Iron deficiency anem ia due to chronic blood loss (Primary Dx) Start: 10-09-2024 End: 10-09-2024 ambulatory Treatment Rm 15 [facility] Work Phone: Hematology/Oncology Comment on above: Iron deficiency anem ia secondary to inadequate dietary iron intake (Primary Dx); Iron deficiency anemia due to chronic blood loss Start: 10-07-2024 End: 10-07-2024 Orders Only Yared Velázquez MD Work Phone: Orthopaedics Comment on above: Left shoulder pain, unspecified chronicity (Primary Dx) Start: 10-05-2024 End: 10-05-2024 ambulatory Treatment Rm 15 [facility] Work Phone: Hematology/Oncology Comment on above: Iron deficiency anem ia due to chronic blood loss (Primary Dx) Start: 10-01-2024 End: 10-01-2024 ambulatory Treatment Rm 14 [facility] Work Phone: Hematology/Oncology Comment on above: Iron deficiency anem ia due to chronic blood loss (Primary Dx) Start: 09-28-2024 End: 09-28-2024 Refill Jenny Au PA-C Work Phone: [facility] Comment on above: Med Change Request Start: 09-28-2024 End: 09-28-2024 Refill Juan Locke DO Work Phone: [facility] Comment on above: Refill Request Iron deficiency anem ia due to chronic blood loss (Primary Dx) Start: 09-24-2024 End: 09-24-2024 ambulatory Ronald Zimmer Facility:[facility] Start: 09-18-2024 End: 11-10-2024 Telephone encounter Juan Locke DO Work Phone: [facility] Start: 09-17-2024 End: 09-17-2024 ambulatory JUAN LOCKE Facility:[facility] Start: 09-04-2024 End: 09-04-2024 Telephone encounter Clayton Novak DO Work Phone: Hematology/Oncology Comment on above: Appointment (Patient called requesting to cancel her treatment today at 10am ) Start: 09-03-2024 ambulatory Glenn Glez Facility: [facility] Start: 09-01-2024 End: 09-03-2024 Telephone encounter Nury Alexander APRN.ASSOCIATE SOFTWARE APPLICATION ENGINEER Work Phone: [facility] [place] Comment on above: Appointment Start: 09-01-2024 End: 09-01-2024 ambulatory Nury Alexander APRN.ASSOCIATE SOFTWARE APPLICATION ENGINEER Work Phone: [facility] Comment on above: Closed fracture of l eft upper extremity with routine healing, subsequent encounter (Primary Dx) Start: 09-01-2024 End: 09-01-2024 Telemedicine consultation with patient Nury Alexander APRN.ASSOCIATE SOFTWARE APPLICATION ENGINEER Work Phone: [facility] Start: 08-31-2024 End: 08-31-2024 ambulatory Juan Locke Facility:[facility] Start: 08-28-2024 End: 09-01-2024 Telephone encounter Nury Alexander SATELLITE MANAGER.ASSOCIATE SOFTWARE APPLICATION ENGINEER Work Phone: [facility] Comment on above: Request Outside [facility] Records Start: 08-28-2024 End: 08-28-2024 ambulatory Nury Alexander APRN.ASSOCIATE SOFTWARE APPLICATION ENGINEER Work Phone: [facility] Comment on above: Closed fracture of l eft upper extremity, initial encounter (Primary Dx) Start: 08-28-2024 End: 08-28-2024 Telemedicine consultation with patient Nury Alexander APRN.ASSOCIATE SOFTWARE APPLICATION ENGINEER Work Phone: [facility] Start: 08-27-2024 End: 08-27-2024 Telephone encounter Clayton Novak DO Work Phone: Hematology/Oncology Comment on above: Appointment fall/medication ques tion Start: 08-26-2024 End: 08-26-2024 Emergency department patient visit Yared Peraza Facility:[facility] Start: 08-26-2024 End: 08-26-2024 ambulatory YAMILKA BOWDEN Facility:[facility] Start: 08-24-2024 End: 08-24-2024 ambulatory Treatment Rm 15 [facility] Work Phone: Hematology/Oncology Comment on above: Iron deficiency anem ia due to chronic blood loss (Primary Dx) Start: 08-19-2024 End: 08-19-2024 Patient encounter procedure Kim Wu MD Work Phone: [facility] Comment on above: Abdominal wall herni a (Primary Dx); Cirrhosis, nonalcoholic (HCC); Portal venous hypertension (HCC); Controlled type 2 diabetes mellitus without complication, without long-term current use of insulin (HCC); Class 2 severe obesity due to excess calories with serious comorbidity and body mass index (BMI) of 36.0 to 36.9 in adult (HCC) Start: 08-19-2024 End: 08-19-2024 Office outpatient visit 25 minutes Mery Hernandez MD Work Phone: [facility] Comment on above: Right lower quadrant abdominal pain (Primary Dx); Intra-abdominal and pelvic swelling, mass and lump, unspecified site Start: 08-19-2024 End: 08-19-2024 ambulatory KIM WU Facility:[facility] Start: 08-14-2024 End: 08-14-2024 Telephone encounter Beata Boone Work Phone: Hematology/Oncology Start: 08-12-2024 End: 08-12-2024 ambulatory NURY ALEXANDER Facility:[facility] Start: 08-12-2024 End: 08-12-2024 Office outpatient visit 25 minutes Nury Alexander APRN.CNP Work Phone: [facility] Comment on above: Hypotension, unspeci fied hypotension type (Primary Dx); Thrombocytopenia (HCC); Iron deficiency anemia, unspecified iron deficiency anemia type; Portal venous hypertension (HCC); Uncontrolled type 2 diabetes mellitus with hyperglycemia (HCC); Iron malabsorption Start: 08-11-2024 End: 08-11-2024 Telephone encounter Juan Locke DO Work Phone: [facility] Comment on above: Nurse Triage Call Start: 08-11-2024 End: 08-11-2024 ambulatory Ronald Zimmer Facility:[facility] Start: 08-10-2024 End: 08-10-2024 Telephone encounter Beata Boone Work Phone: Hematology/Oncology Comment on above: Patient Question Start: 08-07-2024 End: 08-07-2024 ambulatory Ronald Zimmer Facility:[facility] Start: 08-04-2024 End: 08-04-2024 ambulatory JUAN LOCKE Facility:[facility] Start: 08-04-2024 End: 08-04-2024 Subsequent hospital visit by physician Ct Prep [facility] Cat Scan Comment on above: Right lower quadrant abdominal pain [R10.31] Start: 07-30-2024 [facility] Facility: [facility] Start: 07-17-2024 End: 07-17-2024 ambulatory CONNOR GALVAN Facility:[facility] Start: 07-17-2024 End: 07-17-2024 Patient encounter procedure Connor Galvan MD Work Phone: Pulmonary Medicine Comment on above: Lung nodules (Primar y Dx); Cirrhosis of liver with ascites, unspecified hepatic cirrhosis type (HCC) (HCC); Portal hypertension with esophageal varices (HCC); Pleural effusion Start: 07-08-2024 End: 07-08-2024 ambulatory JUAN LOCKE Facility:[facility] Start: 07-08-2024 End: 07-08-2024 Patient encounter procedure Juan Locke Work Phone: [facility] Comment on above: Uncontrolled type 2 diabetes mellitus with hyperglycemia (HCC) (Primary Dx); Cirrhosis, nonalcoholic (HCC); Portal venous hypertension (HCC); Right lower quadrant abdominal pain; Hypotension, unspecified hypotension type; History of pleural effusion; Hypertension, essential; Esophageal varices determined by endoscopy (HCC); Thrombocytopenia (HCC) Start: 07-07-2024 End: 07-07-2024 Subsequent hospital visit by physician X[facility] Work Phone: Radiology Comment on above: Portal venous hypert ension (HCC) [K76.6] Start: 07-07-2024 End: 07-07-2024 ambulatory [facility] Facility:[facility] Start: 07-01-2024 End: 07-01-2024 Office outpatient new 45 minutes Mery Hernandez MD Work Phone: [facility] Comment on above: Right lower quadrant abdominal pain (Primary Dx); Lung nodules Start: 07-01-2024 End: 07-01-2024 ambulatory [facility]ERY HERNANDEZ [facility] Start: 06-29-2024 End: 06-29-2024 Refill Juan Amatoon DO Work Phone: [facility] Comment on above: Refill Request Medication Problem Start: 06-29-2024 End: 06-30-2024 Refill Quynh Beth APRN.ASSOCIATE SOFTWARE APPLICATION ENGINEER Work Phone: [facility] Comment on above: Med Change Request Start: 06-18-2024 End: 06-18-2024 Patient encounter procedure Beata Boone Work Phone: Hematology/Oncology Start: 06-18-2024 End: 06-18-2024 ambulatory Beata Boone Work Phone: Hematology/Oncology Comment on above: Iron deficiency anem ia secondary to inadequate dietary iron intake (Primary Dx); Thrombocytopenia (HCC); Iron malabsorption; Rectal bleeding Start: 06-11-2024 End: 06-12-2024 Telephone encounter Juan Locke DO Work Phone: [facility] Comment on above: Results Start: 06-10-2024 End: 06-10-2024 Subsequent hospital visit by physician Xr [facility] Work Phone: Radiology Comment on above: Situational insomnia [F51.09] Start: 06-10-2024 End: 06-10-2024 ambulatory JUAN VELASQUEZRISON Facility:[facility] Start: 06-10-2024 End: 06-10-2024 Office outpatient visit 25 minutes Nury Alexander APRN.ASSOCIATE SOFTWARE APPLICATION ENGINEER Work Phone: [facility] Comment on above: Portal venous hypert ension (HCC) (Primary Dx); Pleural effusion; Dry cough; Hypotension, unspecified hypotension type; SOB (shortness of breath); Situational insomnia Start: 06-09-2024 ambulatory Ronald Zimmer Facility :[facility] Start: 06-02-2024 End: 06-02-2024 Telephone encounter Mery Hernandez MD Work Phone: [facility] General Surgery Department Start: 05-26-2024 End: 05-26-2024 ambulatory JUAN L LOCKE Hematology/Oncology Comment on above: Iron deficiency anem ia secondary to inadequate dietary iron intake (Primary Dx); Iron malabsorption; Rectal bleeding Start: 05-26-2024 End: 05-26-2024 Patient encounter procedure Treatment Rm 15 [facility] Work Phone: Hematology/Oncology Comment on above: Intra-abdominal and pelvic swelling, mass and lump, unspecified site (Primary Dx); Situational insomnia; Situational depression; Right lower quadrant abdominal pain; Hypotension, unspecified hypotension type; Portal venous hypertension (HCC) Start: 05-25-2024 End: 05-25-2024 ambulatory NURY ALEXANDER Facility:[facility] Start: 05-25-2024 End: 05-25-2024 Patient encounter procedure Alberto Larkin MD Work Phone: General Surgery Comment on above: Intra-abdominal and pelvic swelling, mass and lump, unspecified site; Right lower quadrant abdominal pain Start: 05-15-2024 End: 05-15-2024 ambulatory Treatment Wstr Work Phone: Hematology/Oncology Comment on above: Iron deficiency anem ia secondary to inadequate dietary iron intake (Primary Dx); Iron malabsorption; Rectal bleeding Start: 05-15-2024 End: 05-15-2024 Patient encounter procedure Treatment Rm 16 [facility] Work Phone: Hematology/Oncology Start: 05-13-2024 End: 05-14-2024 Telephone encounter Juan Locke DO Work Phone: Internal Medicine [facility] Comment on above: Insurance Authorizat ion Start: 05-12-2024 End: 05-13-2024 Telephone encounter Nury Alexander APRN.CNP Work Phone: Family Medicine [facility] Comment on above: Results; Appointment Start: 05-12-2024 End: 05-12-2024 Subsequent hospital visit by physician [facility] ([facility] Work Phone: Cat Scan Comment on above: Intra-abdominal and pelvic swelling, mass and lump, unspecified site [R19.00] Start: 05-12-2024 End: 05-12-2024 Patient encounter procedure Nury Alexander APRN.CNP Work Phone: [facility] Comment on above: Portal venous hypert ension (HCC) (Primary Dx); Intra-abdominal and pelvic swelling, mass and lump, unspecified site; Right lower quadrant abdominal pain; Uncontrolled type 2 diabetes mellitus with hyperglycemia (HCC) Start: 05-08-2024 End: 05-08-2024 ambulatory Treatment [facility] Work Phone: Hematology/Oncology Comment on above: Iron deficiency anem ia secondary to inadequate dietary iron intake (Primary Dx); Iron malabsorption; Rectal bleeding Start: 05-08-2024 End: 05-08-2024 Patient encounter procedure Treatment Rm 18 [facility] Work Phone: Hematology/Oncology Start: 05-07-2024 End: 05-07-2024 Subsequent hospital visit by physician Xr [facility] Work Phone: Radiology Comment on above: Rib pain [R07.81] Start: 05-07-2024 End: 05-07-2024 Office outpatient visit 15 minutes Jorge Bean APRN.CNP Work Phone: [facility] Comment on above: Rib pain (Primary Dx ) Start: 05-05-2024 End: 05-06-2024 Refill Juan Locke DO Work Phone: [facility] Comment on above: Refill Request Start: 04-24-2024 End: 11-10-2024 Telephone encounter Beata Boone Work Phone: Hematology/Oncology Start: 04-23-2024 End: 04-23-2024 ambulatory Beata Boone Work Phone: Hematology/Oncology Comment on above: Iron deficiency anem ia secondary to inadequate dietary iron intake (Primary Dx); Iron malabsorption; Thrombocytopenia (HCC) Start: 04-23-2024 End: 04-23-2024 Patient encounter procedure Beata Boone Work Phone: Hematology/Oncology Start: 04-22-2024 Telephone encounter Juan moreland DO Work Phone: [facility] Comment on above: Patient Question Start: 04-21-2024 Orders Only Beata Boone Work Phone: Hematology/Oncology Comment on above: Iron deficiency anem ia secondary to inadequate dietary iron intake (Primary Dx); Iron malabsorption Start: 04-16-2024 End: 04-16-2024 Subsequent hospital visit by physician X[facility] Work Phone: Radiology Comment on above: History of pleural e ffusion [Z87.09] Start: 04-16-2024 End: 04-16-2024 Office outpatient visit 15 minutes Nury Alexander APRN.ASSOCIATE SOFTWARE APPLICATION ENGINEER Work Phone: [facility] Comment on above: History of pleural e ffusion (Primary Dx); Portal venous hypertension (HCC) Start: 04-10-2024 End: 04-10-2024 ambulatory [facility] Facility:[facility] Start: 04-03-2024 Telephone encounter Juan moreland DO Work Phone: [facility] Comment on above: Medication Recommend ations Start: 04-02-2024 Telephone encounter Juan moreland DO Work Phone: [facility] Comment on above: Patient Update Start: 03-31-2024 Telephone encounter Nury Mas APRN.ASSOCIATE SOFTWARE APPLICATION ENGINEER Work Phone: [facility] Comment on above: Results; Orders Appointment Start: 03-31-2024 End: 03-31-2024 Subsequent hospital visit by physician Xr [facility] Work Phone: Radiology Comment on above: Pleural effusion [J9 0] Start: 03-31-2024 End: 03-31-2024 Patient encounter procedure Nury Alexander APRN.ASSOCIATE SOFTWARE APPLICATION ENGINEER Work Phone: [facility] Comment on above: Dry cough (Primary D x); Pleural effusion; Uncontrolled type 2 diabetes mellitus with hyperglycemia (HCC); Encounter for screening mammogram for breast cancer Start: 03-18-2024 End: 03-18-2024 ambulatory Treatment 8 [facility] Work Phone: Hematology/Oncology Comment on above: Rectal bleeding (Asha moy Dx); Iron deficiency anemia secondary to inadequate dietary iron intake; Iron malabsorption Start: 03-12-2024 End: 03-12-2024 ambulatory Treatment Rm 13 [facility] Work Phone: Hematology/Oncology Comment on above: Iron deficiency anem ia secondary to inadequate dietary iron intake (Primary Dx) Start: 03-10-2024 End: 03-10-2024 ambulatory Treatment Rm 11 [facility] Work Phone: Hematology/Oncology Comment on above: Iron deficiency anem ia secondary to inadequate dietary iron intake (Primary Dx); Rectal bleeding; Iron malabsorption Stress Test Instruct ions for 03/16/24 Start: 03-10-2024 E-mail encounter rhoda gómez caregiver Nurse Card Admin [facility] Work Phone: Cardiology Start: 03-05-2024 Telephone encounter Carla bender APRN.ASSOCIATE SOFTWARE APPLICATION ENGINEER Work Phone: Hematology/Oncology Start: 03-05-2024 End: 03-05-2024 [facility] Work Phone: [facility]ology[facility]Oncology Comment on above: Rectal bleeding (Asha moy Dx); Iron deficiency anemia secondary to inadequate dietary iron intake; Iron malabsorption Start: 03-04-2024 ambulatory Stacey Paiz [facility] Start: 03-04-2024 Patient encounter procedure Stacey Paiz MA [facility] [place] [facility] Comment on above: Population Health Na vigation Outreach ([place] [facility] CURRENT ROSTER workbench - AWV, HCC gap closure - [facility]) Start: 03-03-2024 Patient Outreach Laura Zapien RN Work Phone: [facility] Management Comment on above: Transition Of Care ( TCM / OON DC 03/01/24) Initial phone contact for Transitional Care Management Start: 03-02-2024 Telephone encounter Clayton limon DO Work Phone: Hematology/Oncology Comment on above: Patient Update Start: 02-28-2024 End: 02-28-2024 Orders Only Carla Franco APRN.ASSOCIATE SOFTWARE APPLICATION ENGINEER Work Phone: Hematology/Oncology Comment on above: Iron deficiency anem ia secondary to inadequate dietary iron intake (Primary Dx); Iron malabsorption; Thrombocytopenia (HCC) Iron deficiency anem ia secondary to inadequate dietary iron intake (Primary Dx) Start: 02-27-2024 Telephone encounter Carla bender SATELLITE MANAGER.ASSOCIATE SOFTWARE APPLICATION ENGINEER Work Phone: Hematology/Oncology Start: 02-27-2024 End: 02-27-2024 Patient encounter procedure Jorge Bean SATELLITE MANAGER.ASSOCIATE SOFTWARE APPLICATION ENGINEER Work Phone: [facility] Comment on above: Procedure not alcon d out (Primary Dx) Start: 02-26-2024 ambulatory Connor Jf [facility] [place] [facility] [place] Start: 02-26-2024 Patient encounter procedure Connor Rhoades [place] [facility] [place] [facility] [place] Comment on above: Population Health Na vigation Outreach ([place] [facility] ) Start: 02-26-2024 Telephone encounter Juan moreland DO Work Phone: [facility] Comment on above: Results Start: 02-25-2024 End: 02-25-2024 ambulatory Treatment Rm 11 [facility] Work Phone: Hematology/Oncology Comment on above: Rectal bleeding (Asha moy Dx); Iron deficiency anemia secondary to inadequate dietary iron intake; Iron malabsorption Start: 02-20-2024 Telephone encounter Carla bender SATELLITE MANAGER.ASSOCIATE SOFTWARE APPLICATION ENGINEER Work Phone: Hematology/Oncology Start: 02-18-2024 Telephone encounter Carla bender APRN.ASSOCIATE SOFTWARE APPLICATION ENGINEER Work Phone: Hematology/Oncology Start: 02-18-2024 End: 02-18-2024 ambulatory Carla Franco SATELLITE MANAGER.ASSOCIATE SOFTWARE APPLICATION ENGINEER Work Phone: Hematology/Oncology Comment on above: Iron deficiency anem ia secondary to inadequate dietary iron intake (Primary Dx); Rectal bleeding Start: 02-18-2024 End: 02-18-2024 Patient encounter procedure Carla Franco SATELLITE MANAGER.ASSOCIATE SOFTWARE APPLICATION ENGINEER Work Phone: Hematology/Oncology Start: 02-17-2024 Refill Juan root DO Work Phone: [facility] Comment on above: Refill Request Start: 02-15-2024 Refill Jenny munoz PA-C Work Phone: [facility] Comment on above: Refill Request Start: 02-12-2024 Telephone encounter Aiden Whitten DO Work Phone: Cat Scan Comment on above: disk request Start: 02-06-2024 Telephone encounter Juan moreland DO Work Phone: [facility] Comment on above: fax Pulmonary referr al to Dr Hubert Galvan Patient Question Start: 2024 ambulatory Juan Cunningham son DO Work Phone: [facility] Comment on above: Abdominal Pain Start: 01-21-2024 Telephone encounter Juan moreland DO Work Phone: [facility] Comment on above: Results Start: 01-17-2024 End: 01-17-2024 ambulatory Treatment Rm 13 [facility] Work Phone: Hematology/Oncology Comment on above: Iron deficiency anem ia secondary to inadequate dietary iron intake (Primary Dx); Iron malabsorption; Rectal bleeding Start: 01-15-2024 End: 01-15-2024 ambulatory Treatment Rm 13 [facility] Work Phone: Hematology/Oncology Comment on above: Iron deficiency anem ia secondary to inadequate dietary iron intake (Primary Dx); Iron malabsorption; Rectal bleeding Start: 01-14-2024 End: 01-14-2024 Subsequent hospital visit by physician [facility] Work Phone: Cat Scan Comment on above: Pleural effusion [J9 0] Start: 01-03-2024 Telephone encounter Juan moreland DO Work Phone: [facility] Comment on above: Opened In Error Start: 01-03-2024 End: 01-03-2024 ambulatory Treatment Rm 9 [facility] Work Phone: Hematology/Oncology Comment on above: Thrombocytopenia (HC C) (Primary Dx); Iron deficiency anemia secondary to inadequate dietary iron intake; Iron malabsorption; Rectal bleeding Start: 01-01-2024 Telephone encounter Juan Quiles aniceto DO Work Phone: [facility] Comment on above: Results Start: 12-30-2023 End: 12-30-2023 Subsequent hospital visit by physician Xr [facility] Work Phone: Radiology Comment on above: Exertional shortness of breath [R06.02] Start: 12-30-2023 End: 12-30-2023 ambulatory Treatment Rm 9 [facility] Work Phone: Hematology/Oncology Comment on above: Iron deficiency anem ia secondary to inadequate dietary iron intake (Primary Dx); Iron malabsorption; Rectal bleeding Start: 12-30-2023 Telephone encounter Juan moreland DO Work Phone: [facility] Start: 12-30-2023 End: 12-30-2023 Patient encounter procedure Juan Locke DO Work Phone: [facility] Comment on above: Hypothyroidism, acqu ired (Primary Dx); Encounter for screening for cardiovascular disorders; Uncontrolled type 2 diabetes mellitus with hyperglycemia (HCC); Portal venous hypertension (HCC); Iron deficiency anemia, unspecified iron deficiency anemia type; Esophageal varices determined by endoscopy (HCC); Thrombocytopenia (HCC); Weight loss, unintentional; Exertional shortness of breath; Hypertension, essential; Fatigue, unspecified type; Dizziness Start: 12-27-2023 End: 12-27-2023 ambulatory Treatment Rm 8 [facility] Work Phone: Hematology/Oncology Comment on above: Iron deficiency anem ia secondary to inadequate dietary iron intake (Primary Dx); Iron malabsorption; Rectal bleeding Start: 12-19-2023 Refill Kavitha Hayes APRN.CNP Work Phone: [facility] Comment on above: Refill Request Start: 12-17-2023 End: 12-17-2023 ambulatory Juan Locke DO Work Phone: [facility] Comment on above: Allied Health Visit (Medication Adherence Outreach ) Iron deficiency anem ia secondary to inadequate dietary iron intake (Primary Dx); Rectal bleeding; Splenomegaly; Thrombocytopenia (HCC) Start: 12-17-2023 End: 12-17-2023 Patient encounter procedure Beata Boone Work Phone: [facility] Start: 12-09-2023 Orders Only Beata Boone Work Phone: Hematology/Oncology Comment on above: Iron deficiency anem ia secondary to inadequate dietary iron intake (Primary Dx); Splenomegaly; Thrombocytopenia (HCC) Start: 11-26-2023 Refill Juan Cunningham son DO Work Phone: [facility] Comment on above: Refill Request Start: 11-18-2023 Telephone encounter Sheeba NEWTON Hematology/Oncology Comment on above: Social Work Services Start: 11-15-2023 End: 11-15-2023 ambulatory Treatment Rm 13 [facility] [employer] Work Phone: Hematology/Oncology Comment on above: Iron deficiency anem ia secondary to inadequate dietary iron intake (Primary Dx); Iron malabsorption; Rectal bleeding Start: 11-13-2023 End: 11-13-2023 ambulatory Treatment Rm 13 [facility] [employer] Work Phone: Hematology/Oncology Comment on above: Iron deficiency anem ia secondary to inadequate dietary iron intake (Primary Dx); Iron malabsorption; Rectal bleeding Start: 11-08-2023 End: 11-08-2023 ambulatory Treatment Rm 13 [facility] [employer] Work Phone: Hematology/Oncology Comment on above: Iron deficiency anem ia secondary to inadequate dietary iron intake (Primary Dx); Iron malabsorption; Rectal bleeding Start: 11-01-2023 End: 11-01-2023 ambulatory Treatment Rm 13 [facility] [employer] Work Phone: Hematology/Oncology Comment on above: Iron deficiency anem ia secondary to inadequate dietary iron intake (Primary Dx); Iron malabsorption; Rectal bleeding Start: 10-29-2023 End: 10-29-2023 ambulatory Treatment Rm 13 [facility] [employer] Work Phone: Hematology/Oncology Comment on above: Iron deficiency anem ia secondary to inadequate dietary iron intake (Primary Dx); Iron malabsorption; Rectal bleeding Start: 10-17-2023 End: 10-17-2023 Patient encounter procedure Laura Vazquez APRN.CNP Work Phone: [facility] Comment on above: Sinobronchitis (Prim megan Dx) Start: 10-10-2023 Telephone encounter Juan moreland DO Work Phone: [facility] Comment on above: Requesting a referra l to GI Start: 10-08-2023 Telephone encounter Clayton limon DO Work Phone: Hematology/Oncology Comment on above: AVS 10/08/23 Start: 08-30-[address] roman SATELLITE MANAGER.ASSOCIATE SOFTWARE APPLICATION ENGINEER Work Phone: [facility] [place] Comment on above: Results Start: 08-22-2023 Documentation procedure Mammog omid Coordinator [facility] Start: 08-22-2023 Letter encounter Mammography Coordinator [facility] Start: 08-22-2023 Telephone encounter Kavitha root SATELLITE MANAGER.ASSOCIATE SOFTWARE APPLICATION ENGINEER Work Phone: [facility] Comment on above: Results Start: 08-21-2023 Telephone encounter Clayton limon DO Work Phone: Hematology/Oncology Comment on above: AVS 08/21/23 Start: 08-21-2023 End: 08-21-2023 ambulatory Clayton Novak DO Work Phone: Hematology/Oncology Comment on above: Splenomegaly (Primar y Dx); Thrombocytopenia (HCC); Iron deficiency anemia secondary to inadequate dietary iron intake Start: 08-21-2023 End: 08-21-2023 Patient encounter procedure Clayton Novak DO Work Phone: [facility] Start: 08-21-2023 End: 08-21-2023 Subsequent hospital visit by physician Bone Density [facility] Work Phone: Radiology Comment on above: Encounter for michelle quiles to assess osteoporosis [Z13.820] Start: 08-20-2023 Telephone encounter Juan moreland DO Work Phone: [facility] [place] Comment on above: Dexcom CGM Start: 08-19-2023 End: 08-19-2023 Patient encounter procedure Nita Howard SATELLITE MANAGER.ASSOCIATE SOFTWARE APPLICATION ENGINEER Work Phone: [facility] Comment on above: Rhinosinusitis (Prim megan Dx) Start: 08-15-2023 ambulatory [facility] Work Phone: Pharm [employer] Comment on above: Medication Update (S tatin use review) Start: 08-13-2023 Telephone encounter Juan Alix Quiles jareddemetria DO Work Phone: [facility] Comment on above: Patient Question Start: 07-31-2023 Telephone encounter Yonathan Sheppard MD Work Phone: [facility] Comment on above: Results Start: 07-29-2023 End: 07-29-2023 Patient encounter procedure Yonathan Willoughby MD Work Phone: [facility] Comment on above: Urinary frequency (P rimary Dx) Start: 07-27-2023 End: 07-27-2023 Patient encounter procedure Juan Locke DO Work Phone: [facility] Comment on above: Uncontrolled type 2 diabetes mellitus with hyperglycemia (HCC) (Primary Dx); Iron deficiency anemia, unspecified iron deficiency anemia type; Hypothyroidism, acquired; Internal hemorrhoids; Rectal bleeding; Scalp lesion Start: 06-27-2023 Telephone encounter Juan moreland DO Work Phone: [facility] Comment on above: Patient Question Start: [facility] Comment on above: Allied Health Visit (Statin use review) Start: 05-13-2023 Telephone encounter Financial Navigator Ketan Work Phone: Financial Services Comment on above: Benefits Investigati on Start: 05-07-2023 End: 05-07-2023 ambulatory Clayton Novak DO Work Phone: Hematology/Oncology Comment on above: Iron deficiency anem ia, unspecified iron deficiency anemia type (Primary Dx); Platelets decreased (HCC); Iron deficiency anemia secondary to inadequate dietary iron intake; Iron malabsorption Start: 05-07-2023 End: 05-07-2023 Patient encounter procedure Clayton Novak DO Work Phone: [facility] Start: 05-07-2023 Telephone encounter Clayton Richard ashly DO Work Phone: Hematology/Oncology Comment on above: Results Start: 05-01-2023 Telephone encounter Juan moreland DO Work Phone: [facility] Comment on above: Refill Request Start: 05-01-2023 End: 05-01-2023 ambulatory [facility] Work Phone: Start: 05-01-2023 End: 05-01-2023 Discharged Recurring [facility] Work Phone: Start: 04-26-2023 Telephone encounter Juan moreland DO Work Phone: [facility] Comment on above: Medication Problem Start: 03-18-2023 Telephone encounter Juan moreland DO Work Phone: [facility] Comment on above: Question Start: 03-12-2023 Telephone encounter Juan moreland DO Work Phone: [facility] Comment on above: results on blood wor k and US Start: 03-07-2023 End: 03-07-2023 Subsequent hospital visit by physician [facility] Work Phone: Radiology Comment on above: Functional diarrhea [K59.1] Start: 03-05-2023 End: 03-05-2023 Patient encounter procedure Juan Locke DO Work Phone: [facility] Comment on above: Functional diarrhea (Primary Dx); Situational insomnia; Esophageal varices determined by endoscopy ([facility]); Controlled type 2 diabetes mellitus without complication, without long-term current use of insulin (HCC); Abnormal craving; Major depressive disorder, single episode, in full remission (HCC); Fatigue, unspecified type; Dyslipidemia; Hypothyroidism, acquired Start: 02-25-2023 Telephone encounter Juan moreland DO Work Phone: [facility] Comment on above: Colonoscopy Report Start: 02-20-2023 Refill Juan Cunningham ivett DO Work Phone: [facility] Comment on above: Refill Request Start: 02-16-2023 Telephone encounter Laura Ontiveros SATELLITE MANAGER.ASSOCIATE SOFTWARE APPLICATION ENGINEER Work Phone: [facility] Comment on above: Results Start: 02-14-2023 End: 02-14-2023 Office outpatient visit 15 minutes Jorge Bean SATELLITE MANAGER.ASSOCIATE SOFTWARE APPLICATION ENGINEER Work Phone: [facility] Comment on above: Urinary frequency (P rimary Dx) Start: 12-28-2022 Telephone encounter Juan moreland DO Work Phone: [facility] Comment on above: Results Start: 12-25-2022 Telephone encounter Juan moreland DO Work Phone: [facility] [place] Comment on above: Patient Request Start: 12-13-2022 Telephone encounter Juan moreland DO Work Phone: [facility] [place] Comment on above: Results Start: 12-07-2022 ambulatory Ailyn LOUIE [facility] [place] Comment on above: Population Health Na vigation Outreach ([place] care gaps ) Start: 11-28-2022 End: 11-28-2022 Patient encounter procedure Juan Velasquezrison DO Work Phone: [facility] [place] Comment on above: Controlled type 2 di abetes mellitus without complication, without long-term current use of insulin (HCC) (Primary Dx); Hypothyroidism, acquired; Situational depression; Diarrhea, unspecified type; Fatigue, unspecified type; Dyslipidemia; Situational insomnia; Vitamin D deficiency Start: 11-10-2022 Telephone encounter Yonathan Sheppard MD Work Phone: [facility] Comment on above: Results (COVID+) Start: 11-09-2022 End: 11-09-2022 Patient encounter procedure Little Collazo PA Work Phone: [facility] Comment on above: Sore throat (Primary Dx); URI, acute Start: 10-22-2022 ambulatory Lucina Rivera [place] [facility] [place] Comment on above: Population Health Na vigation Outreach (Care Gaps) Start: 10-16-2022 Refill Juan root DO Work Phone: [facility] [place] Comment on above: Refill Request Start: 10-03-2022 Refill Kavitha Hayes SATELLITE MANAGER.ASSOCIATE SOFTWARE APPLICATION ENGINEER Work Phone: [facility] Comment on above: Refill Request Start: 08-27-2022 End: 08-27-2022 ambulatory [facility] Work Phone: Start: 08-27-2022 End: 08-27-2022 Patient encounter procedure [facility]-Ultrasound, [facility] Start: 07-03-2022 Telephone encounter Juan moreland DO Work Phone: [facility] Comment on above: Patient Question Start: 06-12-[address] [facility] [place] Comment on above: Population Health Na vigation Outreach ([place] Attribution /) Start: 06-03-2022 Refill Kavitha Trista robles SATELLITE MANAGER.ASSOCIATE SOFTWARE APPLICATION ENGINEER Work Phone: [facility] Comment on above: Refill Request Start: 05-31-2022 Telephone encounter Laura Ontiveros SATELLITE MANAGER.ASSOCIATE SOFTWARE APPLICATION ENGINEER Work Phone: [facility] Comment on above: Results Start: 05-29-2022 End: 05-29-2022 Patient encounter procedure Nita Howard APRN.ASSOCIATE SOFTWARE APPLICATION ENGINEER Work Phone: [facility] Comment on above: Urinary urgency (Asha moy Dx) Start: 05-07-2022 ambulatory Lucina Miguel MA [facility] Comment on above: Population Health Na vigation Outreach ([place] Care Gaps) Start: 04-12-2022 Refill Juan Cunningham son DO Work Phone: [facility] Comment on above: Refill Request Start: 03-28-2022 End: 03-28-2022 Patient encounter procedure Luis Enrique Zuniga MD Work Phone: [facility] Comment on above: Internal and externa l hemorrhoids without complication (Primary Dx) Start: 03-21-2022 ambulatory Juan root DO Work Phone: [facility] [place] Start: 03-06-2022 Refill Juan Cunningham son DO Work Phone: [facility] [place] Comment on above: Refill Request Start: 02-08-2022 ambulatory Shahrzad Wilkinson [facility] [place] Comment on above: Population Health Na vigation Outreach ([place]) Start: 01-26-2022 Refill Juan root DO Work Phone: [facility] [place] Comment on above: Refill Request Start: 01-22-2022 Telephone encounter Rhona Alexiverenice [facility] Work Phone: [facility] Comment on above: Missed Appointment Start: 01-16-2022 Telephone encounter Juan moreland DO Work Phone: [facility] [place] Comment on above: Medication Question Start: 01-16-2022 End: 01-16-2022 Patient encounter procedure Alberto Larkin MD Work Phone: General Surgery Comment on above: External hemorrhoid (Primary Dx) Start: 01-08-2022 Telephone encounter Juan moreland DO Work Phone: [facility] [place] Comment on above: Results Start: 01-05-2022 End: 01-05-2022 Patient encounter procedure Juan Thomson Locke DO Work Phone: [facility] [place] Comment on above: Controlled type 2 di abetes mellitus without complication, without long-term current use of insulin (HCC) (Primary Dx); Acute cystitis without hematuria; Hypothyroidism, acquired; Anemia, unspecified type; Vitamin D deficiency; Hypertension, essential; Dyslipidemia; Internal hemorrhoids; Rectal bleeding; Irritable bowel syndrome with alternating bowel habits Start: 01-01-2022 Telephone encounter Sangeetha Gonzalez Comment on above: Social Work Services Start: 12-28-2021 Telephone encounter Ladonna B[facility] Comment on above: New Pharmacy-med rev Start: 12-27-2021 Telephone encounter Juan moreland DO Work Phone: [facility] [place] Comment on above: orders for Structure d DM Program Start: 12-04-2021 Telephone encounter Juan moreland DO Work Phone: [facility] Comment on above: Requesting lab order s Start: 06-26-2021 End: 06-26-2021 Subsequent hospital visit by physician [facility] Work Phone: Radiology Comment on above: Frequent headaches [ R51.9] Start: 11-11-2020 End: 11-11-2020 Subsequent hospital visit by physician Xr [facility] [place] Work Phone: Radiology Comment on above: Foot pain, left [M79 .672] Start: 02-07-2018 End: 02-07-2018 Patient encounter procedure Reina Thomas PA-C Work Phone: [facility] Work Phone: Start: 02-07-2018 End: 02-07-2018 Pt evaluation Reina Thomas PA-C Work Phone: [facility] Work Phone: Procedures Date Procedure Procedure Detail Performing Clinician Start: 05-19-2025 Urnls dip stick/tablet rgnt auto w/o microscopy Yonathan Willoughby MD Work Phone: Start: 02-26-[address] Juan Locke DO Work Phone: Comment on above: Test Ordered: [id number] Enhanced Liver Fibr osis (ELF)ELF(TM) Score 11.75 [H ] BN Reference Range: <9.80ELF(TM) Score Interpretation:Risk cut-offs to assess the likelihood of progressionto cirrhosis and liver-related clinical events within3.9 years following baseline ELF score (IQR: 14.0-22.4months)*: Lower risk < 9.80 Mid risk 9.80 - 11.29 Higher risk >11.29Note: The ELF(TM) Score is a unitless numerical value.*Clovis SA, Andre VW, Aimee T, et al. Selonsertibfor patients with bridging fibrosis or compensatedcirrhosis due to HILARIO: Results from randomized phaseIII STELLAR trials. J Hepatol. 2020 Mar;73(1):26-39.Performed at: [address] [id number] Director: Sunny Rincon PhD, Phone: [phone] at: [facility] [place] [id number] [place], [place] [id number] Director: Magdy Davey MD, Phone: [phone] reported result: COMMENT Edited by: MAGUI on 03/02/25:1708 AMENDED REPORT 03/02/251707 [facility] Misc. previously reported as: COMMENT Start: 02-26-[address] Juan Locke DO Work Phone: Start: 02-12-[address] Jori Locke DO Work Phone: Start: 02-11-[address] Juan Locke DO Work Phone: Start: 02-10-[address] Juan Locke DO Work Phone: Start: 02-10-2025 Serum inorganic phosphate measurement Dr. Juan Locke DO Work Phone: Start: 02-09-[address] Jori Locke DO Work Phone: Start: 11-10-[address] Jori Locke DO Work Phone: Start: 11-10-2024 Measurement of renal function Dr. Juan Locke DO Work Phone: Comment on above: GFR Calc Start: 11-09-[address] Juan Locke DO Work Phone: Start: 11-08-2024 Assay of phosphorus inorganic Dr. Juan Locke DO Work Phone: Start: 11-07-2024 CT of abdomen and pelvis without contrast Dr. Juan Locke DO Work Phone: Start: 10-22-2024 Kahfm-1-Avvucdtuknf measurement Dr. Bebeto Locke DO Work Phone: Comment on above: [facility] Electrochemiluminescen ce Immunoassay(ECLIA)Values obtained with different assay methods or kits cannotbe used interchangeably. Results cannot be interpreted asabsolute evidence of the presence or absence of malignantdisease.This test is not interpretable in females. Start: 10-22-[address] Juan Locke DO Work Phone: Start: 10-22-2024 MRI of abdomen with contrast Dr. Juan Locke DO Work Phone: Start: 07-08-2024 Hemoglobin A1c/Hemoglobin.total in Blood Juan Locke DO Work Phone: Start: 07-07-2024 Radiologic exam chest 2 views Juan moreland DO Work Phone: Start: 06-10-2024 Radiologic exam chest [address] [facility] SATELLITE MANAGER.ASSOCIATE SOFTWARE APPLICATION ENGINEER Work Phone: Start: 05-12-2024 Ct abdomen & pelvis w/contrast material [facility] SATELLITE MANAGER.ASSOCIATE SOFTWARE APPLICATION ENGINEER Work Phone: Start: 05-07-2024 Radex ribs uni w/posteroant ch minimum 3 views [facility] SATELLITE MANAGER.ASSOCIATE SOFTWARE APPLICATION ENGINEER Work Phone: Start: 04-16-2024 Radiologic exam chest [address] [facility] SATELLITE MANAGER.ASSOCIATE SOFTWARE APPLICATION ENGINEER Work Phone: Start: 03-31-2024 Radiologic exam chest [address] [facility] SATELLITE MANAGER.ASSOCIATE SOFTWARE APPLICATION ENGINEER Work Phone: Start: 12-30-2023 Radiologic exam chest 2 views Juan colemandemetria DO Work Phone: Start: 07-29-2023 Urnls dip stick/tablet rgnt auto w/o microscopy Vanna Soto PA-C Work Phone: Start: 03-07-2023 Us abdominal real time w/image limited Juan Locke DO Work Phone: Start: 02-14-2023 Urnls dip stick/tablet rgnt auto w/o microscopy Laura Vazquez SATELLITE MANAGER.ASSOCIATE SOFTWARE APPLICATION ENGINEER Work Phone: Start: 11-09-2022 STREP A MOLECULAR (POC) Nita Howard APRN.ASSOCIATE SOFTWARE APPLICATION ENGINEER Work Phone: Start: 08-27-2022 US urinary tract Start: 05-29-2022 Urnls dip stick/tablet rgnt auto w/o microscopy [facility] Start: 01-05-2022 End: 01-05-2022 Culture bacterial quanttative colony count urine Juan Velasquezrison DO Work Phone: Start: 06-26-2021 Radex spine cervical 4 or 5 views Juan Velasquezrison DO Work Phone: Start: 06-08-2020 Colonoscopy Juan Velasquezrison DO Work Phone: Start: 07-02-2018 Mammography Juan Velasquezrison DO Work Phone: Start: 02-07-2018 End: 02-07-2018 Blood pressure within normal parameters - no follow-up required Reina Thomas PA-C Work Phone: Start: 02-07-2018 End: 02-07-2018 BMI documented as above normal parameters - follow-up documented Reina KENT-Lisbeth Work Phone: Start: 02-07-2018 End: 02-07-2018 Current medications documented Reina KENT-Lisbeth Work Phone: Start: 02-07-2018 End: 02-07-2018 Pain assessment documented as positive - follow-up documented Reina Thomas PA-C Work Phone: Start: 02-07-2018 End: 02-07-2018 Tobacco non-user Reina Thomas PA-C Work Phone: Plan of Treatment Date Care Activity Detail Author Start: 06-08-2030 Colonoscopy COLONOSCOPY [facility] Start: 06-08-2030 COLORECTAL CANCER SCREENING COLORECTAL CANCER SCREENING [facility] Start: 2029 RSV Vaccine (1 - 1-dose 75+ series) RSV Vaccine (1 - 1-dose 75+ series) [facility] Start: 06-20-2028 Urine microalbumin profile [facility] Start: 04-14-2026 Annual PCP Team Chronic Disease Visit Annual PCP Team Chronic Disease Visit [facility] Start: 01-21-2026 Annual PCP Team Chronic Disease Visit Annual PCP Team Chronic Disease Visit [facility] Start: 01-21-2026 BP Controlled (<130/80) BP Controlled (<130/80) [facility] Start: 12-16-2025 BP Controlled (<130/80) BP Controlled (<130/80) [facility] Start: 11-25-2025 Annual PCP Team Chronic Disease Visit Annual PCP Team Chronic Disease Visit [facility] Start: 11-25-2025 BP Controlled (<130/80) BP Controlled (<130/80) [facility] Start: 11-17-2025 Annual PCP Team Chronic Disease Visit Annual PCP Team Chronic Disease Visit [facility] Start: 11-17-2025 BP Controlled (<130/80) BP Controlled (<130/80) [facility] Start: 10-26-2025 BP Controlled (<130/80) BP Controlled (<130/80) [facility] Start: 10-15-2025 Hemoglobin A1c measurement HbA1C [facility] Start: 09-01-2025 Annual PCP Team Chronic Disease Visit Annual PCP Team Chronic Disease Visit [facility] Start: 08-30-2025 End: 08-30-2025 Patient encounter procedure 08/30/2025 11:20 AM EST Appointment [facility] [address] [place] [address] Lung nodules [R91.8] [facility] Comment on above: Lung nodules [R91.8] Start: 08-28-2025 Annual PCP Team Chronic Disease Visit Annual PCP Team Chronic Disease Visit [facility] Start: 08-26-2025 Annual PCP Team Chronic Disease Visit Annual PCP Team Chronic Disease Visit [facility] Start: 08-26-2025 BP Controlled (<130/80) BP Controlled (<130/80) [facility] Start: 08-19-2025 BP Controlled (<130/80) BP Controlled (<130/80) [facility] Start: 08-12-2025 Annual PCP Team Chronic Disease Visit Annual PCP Team Chronic Disease Visit [facility] Start: 08-12-2025 BP Controlled (<130/80) BP Controlled (<130/80) [facility] Start: 07-23-2025 End: 07-23-2025 ambulatory 07/23/2025 1:00 PM EST Visit (SP) Office Hematology/Oncology [address] [place] [address] Beata Boone [address] [place] [address] 3 MO OV/LAB 07/16* Hematology/Oncology Comment on above: 3 MO OV/LAB 07/16* Start: 07-17-2025 BP Controlled (<130/80) BP Controlled (<130/80) [facility] Start: 07-16-2025 End: 07-16-2025 ambulatory 07/16/2025 1:00 PM EDT Results Only [place] [facility] [address] [place] [address] IRON/TIBC/FERRATIN* [place] [facility] Comment on above: IRON/TIBC/FERRATIN* Start: 07-08-2025 Annual PCP Team Chronic Disease Visit Annual PCP Team Chronic Disease Visit [facility] Start: 07-08-2025 BP Controlled (<130/80) BP Controlled (<130/80) [facility] Start: 06-18-2025 BP Controlled (<130/80) BP Controlled (<130/80) [facility] Start: 06-10-2025 Annual PCP Team Chronic Disease Visit Annual PCP Team Chronic Disease Visit [facility] Start: 06-10-2025 BP Controlled (<130/80) BP Controlled (<130/80) [facility] Start: 06-08-2025 Colonoscopy COLONOSCOPY [facility] Start: 06-08-2025 COLORECTAL CANCER SCREENING COLORECTAL CANCER SCREENING [facility] Start: 06-08-2025 Screening for malignant neoplasm of colon [facility] Start: 05-26-2025 Annual PCP Team Chronic Disease Visit Annual PCP Team Chronic Disease Visit [facility] Start: 05-26-2025 BP Controlled (<130/80) BP Controlled (<130/80) [facility] Start: 05-26-2025 Covid-19 Vaccine (1 - 2023-24 season) Covid-19 Vaccine ( season) [facility] Comment on above: Postponed from 05/17/2024 (Declined at t his time) Start: 05-26-2025 Covid-19 Vaccine ( season) Covid-19 Vaccine ( season) [facility] Comment on above: Postponed from 05/17/2024 (Declined at t his time) Start: 05-21-2025 End: 05-21-2025 ambulatory 05/21/2025 12:00 PM EDT Results Only [facility] [address] [place] [address] CBC(?TX)/Iron studies* [facility] Comment on above: CBC(?TX)/Iron studies* Start: 05-17-2025 Influenza vaccination [facility] Start: 05-15-2025 BP Controlled (<130/80) BP Controlled (<130/80) [facility] Start: 05-12-2025 Annual PCP Team Chronic Disease Visit Annual PCP Team Chronic Disease Visit [facility] Start: 05-12-2025 BP Controlled (<130/80) BP Controlled (<130/80) [facility] Start: 05-08-2025 BP Controlled (<130/80) BP Controlled (<130/80) [facility] Start: 05-07-2025 BP Controlled (<130/80) BP Controlled (<130/80) [facility] Start: 04-26-2025 End: 04-26-2025 Patient encounter procedure 04/26/2025 2:15 PM EDT Office Visit [facility] [address] [facility] [address] [place], [place] [id number] Kim Wu MD [address] [place] [address] Abdominal hernia Recheck [facility] Comment on above: Abdominal hernia Recheck Start: 04-23-2025 BP Controlled (<130/80) BP Controlled (<130/80) [facility] Start: 04-20-2025 End: 04-20-2025 ambulatory 04/20/2025 11:00 AM EDT Visit (SP) Office Hematology/Oncology [address] [place] [address] Beata Boone [address] [place] [address] 4WK OV/LAB 04/14* Hematology/Oncology Comment on above: 4WK OV/LAB 04/14* Start: 04-16-2025 End: 04-16-2025 ambulatory 04/16/2025 2:00 PM EDT Visit (SP) Office Hematology/Oncology [address] [place] [address] Beata Boone [address] [place] [address] 4WK OV/LAB EARLY* Hematology/Oncology Comment on above: 4WK OV/LAB EARLY* Start: 04-16-2025 Annual PCP Team Chronic Disease Visit Annual PCP Team Chronic Disease Visit [facility] Start: 04-16-2025 BP Controlled (<130/80) BP Controlled (<130/80) [facility] Start: 04-16-2025 Hepatitis B screening Urine Albumin:Creatinine Ratio [facility] Start: 04-14-2025 End: 04-14-2025 Patient encounter procedure 04/14/2025 3:40 PM EDT Office Visit [facility] [place] [address] [place] [address] Juan Locke DO [address] [place] [address] [facility] ER f/u internal Bleeding 02/12, wants to wait for [facility] [place] Comment on above: [facility] ER f/u internal Bleeding 02/12, wants to wait for Locke Start: 04-12-2025 End: 07-12-2025 CBC W Auto Differential panel - Blood COMPLETE BLOOD COUNT AND DIFFERENTIAL Lab STAT Iron deficiency anemia secondary to inadequate dietary iron intake Iron malabsorption (HCC) Expected: 04/12/2025 (Approximate), Expires: 07/12/2025 [facility] Work Phone: Comment on above: Expected: 04/12/2025 (Approximate), Expi res: 07/12/2025 Start: 04-12-2025 End: 07-12-2025 Ferritin [Mass/volume] in Serum or Plasma FERRITIN Lab Routine Iron deficiency anemia secondary to inadequate dietary iron intake Iron malabsorption (HCC) Expected: 04/12/2025 (Approximate), Expires: 07/12/2025 [facility] Comment on above: Expected: 04/12/2025 (Approximate), Expi res: 07/12/2025 Start: 04-12-2025 End: 07-12-2025 Iron and Iron binding capacity panel - Serum or Plasma IRON AND TIBC Lab Routine Iron deficiency anemia secondary to inadequate dietary iron intake Iron malabsorption (HCC) Expected: 04/12/2025 (Approximate), Expires: 07/12/2025 [facility] Comment on above: Expected: 04/12/2025 (Approximate), Expi res: 07/12/2025 Start: 04-08-2025 End: 04-08-2025 ambulatory 04/08/2025 2:30 PM EDT Visit (SP) Office Hematology/Oncology [address] [place], [place] [id number] Beata Boone [address] [place] [address] 4WK OV Hematology/Oncology Comment on above: 4WK OV Start: 04-01-2025 End: 04-01-2025 ambulatory 04/01/2025 1:30 PM EDT Infusion Center Hematology/Oncology [address] [place], [place] [id number] 2ND FLOOR Hematology/Oncology Comment on above: 2ND FLOOR Start: 03-31-2025 Annual PCP Team Chronic Disease Visit Annual PCP Team Chronic Disease Visit [facility] Start: 03-31-2025 BP Controlled (<130/80) BP Controlled (<130/80) [facility] Start: 03-31-2025 Pneumococcal Vaccine: 50+ (1 of 2 - PCV) Pneumococcal Vaccine: 50+ (1 of 2 - PCV) [facility] Comment on above: Postponed from 1973 (Declined at t his time) Start: 03-31-2025 Pneumococcal Vaccine: 65+ (1 of 2 - PCV) Pneumococcal Vaccine: 65+ (1 of 2 - PCV) [facility] Comment on above: Postponed from [birth year]/30/1960 (Declined at t his time) Start: 03-31-2025 RSV Vaccine (1 - 1-dose 60+ series) RSV Vaccine (1 - 1-dose 60+ series) [facility] Comment on above: Postponed from 2014 (Declined at t his time) Start: 03-31-2025 RSV Vaccine (1 - Risk 60-74 years 1-dose series) RSV Vaccine (1 - Risk 60-74 years 1-dose series) [facility] Comment on above: Postponed from 2014 (Declined at t his time) Start: 03-31-2025 Shingrix Vaccine (1 of 2) Shingrix Vaccine (1 of 2) [facility] Comment on above: Postponed from 01/30/2004 (Declined at t his time) Start: 03-30-2025 End: 03-30-2025 ambulatory 03/30/2025 2:00 PM EDT Infusion Center Hematology/Oncology [address] [place] [address] 2ND FLOOR Hematology/Oncology Comment on above: 2ND FLOOR Start: 03-26-2025 End: 03-26-2025 ambulatory Hematology/Oncology Comment on above: Iron Sucrose #3/5* 2ND FLOOR Start: 03-24-2025 End: 03-24-2025 ambulatory 03/24/2025 2:00 PM EDT Infusion Center Hematology/Oncology [address] [place] [address] Iron Sucrose #2/5* Hematology/Oncology Comment on above: Iron Sucrose #2/5* Start: 03-24-2025 End: 03-24-2025 Patient encounter procedure 03/24/2025 10:00 AM EDT Office Visit [facility] [address] [facility] [address] [facility] [address] [place] [address] Kim Wu MD [address] [place] [phone] Abdominal hernia Recheck [facility] Comment on above: Abdominal hernia Recheck Start: 03-22-2025 End: 03-22-2025 ambulatory 03/22/2025 3:00 PM EDT Infusion Center Hematology/Oncology [address] [place] [address] Iron Sucrose #1/5* Hematology/Oncology Comment on above: Iron Sucrose #1/5* Start: 03-18-2025 End: 06-17-2025 Comprehensive metabolic 2000 panel - Serum or Plasma COMPREHENSIVE METABOLIC PANEL Lab Routine Hypokalemia Elevated alkaline phosphatase level Expected: 03/18/2025, Expires: 06/17/2025 [facility] Work Phone: Comment on above: Expected: 03/18/2025, Expires: Start: 03-17-2025 End: 03-17-2025 ambulatory 03/17/2025 1:30 PM EDT Results Only [facility] [address] [place] [address] CBC(/TX) [facility] Comment on above: CBC(/TX) Start: 03-15-2025 Influenza vaccination Influenza Vaccine (#1) [facility] Comment on above: Postponed from 05/17/2024 (Declined at t his time) Start: 03-11-2025 End: 06-10-2025 CBC W Auto Differential panel - Blood [facility] Work Phone: Comment on above: Once per week for 52 Occurrences startin g 03/11/2024 until 03/11/2025 Expected: 03/11/2025 , Expires: 06/10/2025 Start: 02-17-2025 BP Controlled (<130/80) BP Controlled (<130/80) [facility] Start: 02-12-2025 Patient discharge [facility] Start: 02-11-2025 [facility] Start: 02-11-2025 [facility] Start: 02-10-2025 Administration of blood product [facility] Start: 02-09-2025 Application of intermittent pneumatic compression device [facility] Start: 02-09-2025 Following clinical pathway protocol [facility] Start: 02-09-2025 Assessment of risk of venous thromboembolism [facility] Start: 02-09-2025 Documentation procedure [facility] Start: 02-09-2025 Insertion of catheter into peripheral vein [facility] Start: 02-09-2025 Providing care according to standard [facility] Start: 02-09-2025 Provision of activity privileges [facility] Start: 02-09-2025 Referral to gastroenterology service [facility] Start: 02-09-2025 [facility] Start: 02-09-2025 Verification routine [facility] Start: 02-09-2025 Admission procedure [facility] Start: 02-09-2025 Hospital admission, emergency, from emergency room, medical nature [facility] Start: 02-09-2025 Administration of blood product [facility] Start: 02-09-2025 [facility] Start: 02-09-2025 Leukocyte reduced red blood cells [facility] Start: 02-09-2025 Consultation [facility] Start: 02-07-2025 End: 05-09-2025 CBC W Auto Differential panel - Blood COMPLETE BLOOD COUNT AND DIFFERENTIAL Lab Routine Other iron deficiency anemia Uncontrolled type 2 diabetes mellitus with hyperglycemia (HCC) Expected: 02/07/2025, Expires: 05/09/2025 [facility] Work Phone: Comment on above: Expected: 02/07/2025, Expires: Start: 02-04-2025 End: 02-04-2025 Patient encounter procedure 02/04/2025 1:00 PM EDT Office Visit [facility] [place] [address] [place] [address] Kavitha Hayes APRN.[facility] [address] [place] [address] Follow Up--Midline Low Back Pain [facility] [place] Comment on above: Follow Up--Midline Low Back Pain Start: 01-26-2025 End: 01-26-2025 Patient encounter procedure 01/26/2025 1:00 PM EDT Office Visit [facility] Medicine [place] [address] [place] [address] Nury Alexander, GREGORY.ASSOCIATE SOFTWARE APPLICATION ENGINEER [address] [place] [address] 2 month follow up [facility] Madalyn [place] Comment on above: 2 month follow up Start: 01-21-2025 Glaucoma screening Dilated Retinal Exam [facility] Start: 01-21-2025 End: 01-21-2025 Patient encounter procedure 01/21/2025 10:40 AM EDT Office Visit [facility] [place]al[place] [address] [place], [place] [address] Nury Alexander, GREGORY.ASSOCIATE SOFTWARE APPLICATION ENGINEER [address] [place] [address] Low back pain [facility] Comment on above: Low back pain Start: 01-06-2025 Hemoglobin A1c measurement HbA1C [facility] Start: 01-01-2025 End: 01-01-2025 Patient encounter procedure Mammogram Comment on above: Encounter for screening mammogram for ma lignant neoplasm of breast [Z12.31] Osteopenia, senile [ M85.80] Start: 12-29-2024 Annual PCP Team Chronic Disease Visit Annual PCP Team Chronic Disease Visit [facility] Start: 12-29-2024 BP Controlled (<130/80) BP Controlled (<130/80) [facility] in Start: 12-29-2024 Covid-19 Vaccine () Covid-19 Vaccine () [facility] Comment on above: Postponed from 05/17/2023 (Declined at t his time) Start: 12-29-2024 Diabetic foot examination Diabetic Foot Exam [facility] Start: 12-16-2024 BP Controlled (<130/80) BP Controlled (<130/80) [facility] inic Start: 12-16-2024 End: 12-16-2024 Patient encounter procedure [facility] Comment on above: 3MOS FOLLOW-UP left vm to r/s 3 MONTH FOLLOW UP Start: 12-14-2024 End: 12-14-2024 ambulatory 12/14/2024 2:00 PM EDT Infusion Center Hematology/Oncology [address] [place] [address] 2ND FLOOR Hematology/Oncology Comment on above: 2ND FLOOR Start: 12-10-2024 Hepatitis B surface antibody level LDL Cholesterol [facility] Start: 12-02-2024 End: 12-02-2024 Patient encounter procedure [facility] Comment on above: 3MOS FOLLOW-UP 3 MONTH FOLLOW UP Start: 11-25-2024 End: 11-25-2024 Patient encounter procedure 11/25/2024 12:40 PM EDT Office Visit Family Medicine [place] [address] [place] [address] Juan Locke DO [address] [place] [address] 3 month follow up Family [place]alyn [place] Comment on above: 3 month follow up Start: 11-18-2024 End: 11-18-2024 ambulatory 11/18/2024 3:00 PM EST Infusion Center Hematology/Oncology [address] [place] [address] 2ND FLOOR Hematology/Oncology Comment on above: 2ND FLOOR Start: 11-17-2024 End: 09-19-2025 CT Abdomen and Pelvis W contrast IV CT ABD/PEL W IVCON Radiology Routine Right lower quadrant abdominal pain Expected: 11/17/2024 (Approximate), Expires: 09/19/2025 [facility] Work Phone: Comment on above: Expected: 11/17/2024 (Approximate), Expi res: 09/19/2025 Start: 11-17-2024 End: 11-17-2024 Patient encounter procedure 11/17/2024 12:40 PM EST Office Visit [facility] [place] [address] [place] [address] Nury Alexander APRN.ASSOCIATE SOFTWARE APPLICATION ENGINEER [address] [place] [address] [facility] follow up / acute anemia [facility] [place] Comment on above: [facility] follow up / acute anemia Start: 11-17-2024 End: 11-17-2024 Patient encounter procedure Cat Scan Comment on above: Right lower quadrant abdominal pain [R10 .31] Start: 11-16-2024 End: 11-16-2024 ambulatory 11/16/2024 1:30 PM EST Infusion Center Hematology/Oncology [address] [place] [address] 2ND FLOOR Hematology/Oncology Comment on above: 2ND FLOOR Start: 11-13-2024 End: 11-13-2024 ambulatory 11/13/2024 2:00 PM EST Infusion Center Hematology/Oncology [address] [place] [address] 2ND FLOOR Hematology/Oncology Comment on above: 2ND FLOOR Start: 11-11-2024 End: 11-11-2024 ambulatory 11/11/2024 1:30 PM EST Infusion Center Hematology/Oncology [address] [place] [address] 2ND FLOOR Hematology/Oncology Comment on above: 2ND FLOOR Start: 11-10-2024 Patient discharge [facility] Start: 11-09-2024 End: 11-09-2024 ambulatory 11/09/2024 2:00 PM EST Infusion Center Hematology/Oncology [address] [place] [address] 2ND FLOOR Hematology/Oncology Comment on above: 2ND FLOOR Start: 11-08-2024 [facility] Start: 11-07-2024 Administration of blood product [facility] Start: 11-07-2024 End: 11-07-2024 [facility] Start: 11-07-2024 Care regimes management [facility] Start: 11-07-2024 Notification of physician [facility] Start: 11-07-2024 Referral to gastroenterology service [facility] Start: 11-07-2024 Application of intermittent pneumatic compression device [facility] Start: 11-07-2024 Following clinical pathway protocol [facility] Start: 11-07-2024 Ambulation without limitation [facility] Start: 11-07-2024 Assessment of risk of venous thromboembolism [facility] Start: 11-07-2024 Insertion of catheter into peripheral vein [facility] Start: 11-07-2024 Measuring intake and output [facility] Start: 11-07-2024 Oxygen therapy [facility] Start: 11-07-2024 Providing care according to standard [facility] Start: 11-07-2024 Referral to occupational therapist [facility] Start: 11-07-2024 Referral to service [facility] Start: 11-07-2024 [facility] Start: 11-07-2024 Admission procedure [facility] Start: 11-07-2024 End: 11-07-2024 Administration of blood product [facility] Start: 11-03-2024 End: 02-02-2025 Ferritin [Mass/volume] in Serum or Plasma [facility] [employer] Work Phone: Comment on above: Expected: 11/03/2024, Expires: Start: 11-03-2024 End: 02-02-2025 Iron and Iron binding capacity panel - Serum or Plasma [facility] Comment on above: Expected: 11/03/2024, Expires: Start: 11-03-2024 End: 11-03-2024 ambulatory 11/03/2024 12:00 PM EST Infusion Center Hematology/Oncology [address] [place], [place] [id number] 2nd Floor-Patient only wanted to schedule the first one until she looks at her schedule at home-Iron Sucrose/#1/5(Auth.Exp.?) * Hematology/Oncology Comment on above: 2nd Floor-Patient only wanted to schedul e the first one until she looks at her schedule at home-Iron Sucrose/#1/5(Auth.Exp.?)* Start: 11-02-2024 End: 11-02-2024 Nutrition therapy 11/02/2024 1:00 PM EST Education Nutrition Therapy [address] [facility] [place] [address] Pavithra Del Rosario, RD [address] [place] [address] Cirrhosis, nonalcoholic (HCC) [K74.60] Nutrition Therapy Comment on above: Cirrhosis, nonalcoholic (HCC) [K74.60] Start: 10-26-2024 End: 10-26-2024 ambulatory [place]al[facility] Sandhuwn [facility] Laboratory Comment on above: CBC/?TX* OV* Start: 10-19-2024 End: 10-19-2024 Nutrition therapy 10/19/2024 1:45 PM EST Education Nutrition Therapy [address] [place] [address] Pavithra Del Rosario, RD [address] [place] [address] Cirrhosis, nonalcoholic (HCC) [K74.60] Nutrition Therapy Comment on above: Cirrhosis, nonalcoholic (HCC) [K74.60] Start: 10-16-2024 End: 10-16-2024 ambulatory 10/16/2024 11:30 AM EST Visit (SP) Office Hematology/Oncology [address] [place] [address] Beata Boone [address] [place] [address] OV* Hematology/Oncology Comment on above: OV* Start: 10-13-2024 End: 10-13-2024 ambulatory 10/13/2024 2:30 PM EST Infusion Center Hematology/Oncology [address] [place] [address] 2nd Hematology/Oncology Comment on above: 2nd Start: 10-12-2024 End: 10-12-2024 Patient encounter procedure 10/12/2024 1:15 PM EST Office Visit Orthopaedics [address] [place] [address] Yared Velázquez MD [address] [place] [address] [facility] Er follow up 08/26 left shoulder fracture Orthopaedics Comment on above: [facility] Er follow up 08/26 left shoulder fra cture Start: 10-09-2024 End: 10-09-2024 ambulatory 10/09/2024 3:00 PM EST Infusion Center Hematology/Oncology [address] [place] [address] 2nd Hematology/Oncology Comment on above: 2nd Start: 10-07-2024 End: 10-07-2024 ambulatory 10/07/2024 2:00 PM EST Infusion Center Hematology/Oncology [address] [place] [address] 2nd Hematology/Oncology Comment on above: 2nd Start: 10-05-2024 End: 10-05-2024 ambulatory 10/05/2024 3:00 PM EST Infusion Center Hematology/Oncology [address] [place] [address] 2nd Hematology/Oncology Comment on above: 2nd Start: 10-05-2024 End: 10-05-2024 Nutrition therapy 10/05/2024 12:15 PM EST Education Nutrition Therapy [address] [place] [address] Pavithra Del Rosario, RD [address] [place] [address] Cirrhosis, nonalcoholic (HCC) [K74.60] Nutrition Therapy Comment on above: Cirrhosis, nonalcoholic (HCC) [K74.60] Start: 10-01-2024 End: 10-01-2024 ambulatory 10/01/2024 2:30 PM EST Infusion Center Hematology/Oncology [address] [place] [address] 2nd Hematology/Oncology Comment on above: 2nd Start: 10-01-2024 Hemoglobin A1c measurement HbA1C [facility] Start: 09-28-2024 End: 09-28-2024 ambulatory 09/28/2024 1:30 PM EST Infusion Center Hematology/Oncology [address] [place] [address] 2nd Hematology/Oncology Comment on above: 2nd Start: 09-25-2024 Annual PCP Team Chronic Disease Visit Annual PCP Team Chronic Disease Visit [facility] Start: 09-22-2024 End: 09-22-2024 ambulatory 09/22/2024 2:00 PM EST Infusion Center Hematology/Oncology [address] [place] [address] 2nd Hematology/Oncology Comment on above: 2nd Start: 09-16-2024 Medicare Advantage Annual Wellness Visit Medicare Advantage Annual Wellness Visit [facility] Start: 09-14-2024 End: 09-14-2024 ambulatory Fred Sandhuwn [facility] Laboratory Comment on above: Labs/ OV OV/ LABS Start: 09-07-2024 End: 09-07-2024 Nutrition therapy 09/07/2024 9:30 AM EST Education Nutrition Therapy [address] [place] [address] Pavithra Del Rosario, JERRICA [address] [place] [address] Cirrhosis, nonalcoholic (HCC) [K74.60] Nutrition Therapy Comment on above: Cirrhosis, nonalcoholic (HCC) [K74.60] Start: 09-04-2024 End: 09-04-2024 ambulatory 09/04/2024 10:00 AM EST Infusion Center Hematology/Oncology [address] [place] [address] 2nd Hematology/Oncology Comment on above: 2nd Start: 09-01-2024 End: 09-01-2024 Patient encounter procedure 09/01/2024 11:00 AM EST Office Visit Family Medicine [place] [address] [place] [address] Nury Alexander, GREGORY.ASSOCIATE SOFTWARE APPLICATION ENGINEER [address] [place] [address] ER 08-26-24 broke left arm Family Medicine [facility] Comment on above: ER 08-26-24 broke left arm Start: 09-01-2024 End: 09-01-2024 ambulatory 09/01/2024 8:30 AM EST Infusion Center Hematology/Oncology [address] [place] [address] 2nd Hematology/Oncology Comment on above: 2nd Start: 08-31-2024 End: 08-31-2024 ambulatory 08/31/2024 9:30 AM EST Infusion Center Hematology/Oncology [address] [place] [address] 2nd Hematology/Oncology Comment on above: 2nd Start: 08-28-2024 End: 08-28-2024 ambulatory 08/28/2024 10:00 AM EST [facility] Family Medicine [place] [address] [place] [address] Nury Alexander, GREGORY.ASSOCIATE SOFTWARE APPLICATION ENGINEER [address] [place] [address] medication OK PER NON DESTRUCTIVE TESTING SCIENTIST phone call Family Madalyn [place] Comment on above: medication OK PER NON DESTRUCTIVE TESTING SCIENTIST phone call Start: 08-27-2024 End: 08-27-2024 ambulatory 08/27/2024 9:00 AM [facility] Center Hematology/Oncology [address] [place] [address] 2nd Hematology/Oncology Comment on above: 2nd Start: 08-26-2024 End: 08-26-2024 Patient encounter procedure Family [place] Comment on above: Follow up 2 week bp chck 1 mo follow up Start: 08-24-2024 End: 08-24-2024 ambulatory 08/24/2024 9:30 AM [facility] Hematology/Oncology [address] [place] [address] 2nd Hematology/Oncology Comment on above: 2nd Start: 08-21-2024 Mammography Mammogram Screening [facility] Start: 08-21-2024 Screening for malignant neoplasm of breast Mammogram Screening [facility] Start: 08-21-2024 End: 08-21-2024 ambulatory 08/21/2024 10:00 AM [facility] Hematology/Oncology [address] [place] [address] 2nd Hematology/Oncology Comment on above: 2nd Start: 08-19-2024 End: 11-18-2024 CREATININE BLD CREATININE BLD Lab Routine Right lower quadrant abdominal pain Expected: 08/19/2024, Expires: 11/18/2024 [facility] Comment on above: Expected: 08/19/2024, Expires: Start: 08-19-2024 End: 08-19-2024 Patient encounter procedure [facility] Comment on above: Follow up CT Scan 08/[address] scan from 08-06-24 Reviewed by Mary sierra's appt ) Start: 08-18-2024 End: 08-18-2024 Patient encounter procedure 08/18/2024 10:30 AM EST Office Visit Pulmonary Medicine [address] [place] [address] Yamilka Bowden APRN.ASSOCIATE SOFTWARE APPLICATION ENGINEER [address] [place] [address] 1 mo follow up Pulmonary Medicine Comment on above: 1 mo follow up Start: 08-12-2024 End: 11-11-2024 Ferritin [Mass/volume] in Serum or Plasma [facility] Comment on above: Expected: 08/12/2024, Expires: Start: 08-12-2024 End: 11-11-2024 Iron and Iron binding capacity panel - Serum or Plasma [facility] Work Phone: Comment on above: Expected: 08/12/2024, Expires: Start: 08-12-2024 End: 08-12-2024 Patient encounter procedure 08/12/2024 11:20 AM EST Office Visit Family Medicine [place] [address] [place] [address] Nury Alexandre, SATELLITE MANAGER.ASSOCIATE SOFTWARE APPLICATION ENGINEER [address] [place] [address] BP check, discuss lighthheadedness, see 08/11/24 triage note Family Medicine [place] Comment on above: BP check, discuss lighthheadedness, see 08/11/24 triage note Start: 08-10-2024 End: 08-10-2024 Nutrition therapy 08/10/2024 1:00 PM EST Education Nutrition Therapy [address] [place] [address] Pavithra Del Rosario, JERRICA [address] [place] [address] Cirrhosis, nonalcoholic (HCC) [K74.60] Nutrition Therapy Comment on above: Cirrhosis, nonalcoholic (HCC) [K74.60] Start: 08-04-2024 End: 08-04-2024 Patient encounter procedure Cat Scan Comment on above: prep Lung nodules [R91.8] Start: 08-01-2024 End: 08-01-2025 CT Abdomen and Pelvis W contrast IV CT ABD/PEL W IVCON Radiology Routine Right lower quadrant abdominal pain Expected: 08/01/2024 (Approximate), Expires: 08/01/2025 [facility] Work Phone: Comment on above: Expected: 08/01/2024 (Approximate), Expi res: 08/01/2025 Start: 08-01-2024 End: 08-01-2025 CT Chest W contrast IV CT CHEST W IVCON Radiology Routine Lung nodules Expected: 08/01/2024 (Approximate), Expires: 08/01/2025 [facility] Comment on above: Expected: 08/01/2024 (Approximate), Expi res: 08/01/2025 Start: 07-27-2024 Annual PCP Team Chronic Disease Visit Annual PCP Team Chronic Disease Visit [facility] Start: 07-27-2024 BP Controlled (<130/80) BP Controlled (<130/80) [facility] in Start: 07-17-2024 End: 07-17-2024 Patient encounter procedure 07/17/2024 8:00 AM EDT Office Visit Pulmonary Medicine [address] [place], [place] [id number] Connor Galvan MD [address] [place] [address] lung nodule Pulmonary Medicine Comment on above: lung nodule Start: 07-08-2024 End: 07-08-2024 Patient encounter procedure 07/08/2024 8:20 AM EDT Office Visit [facility] [place] [address] [place], [place] [id number] Juan Locke, [address] [place], [place] [id number] 6 month thyroid follow up [facility] [place] Comment on above: 6 month thyroid follow up Start: 07-01-2024 End: 07-01-2024 Patient encounter procedure 07/01/2024 11:30 AM EDT Office Visit [facility] 1 [facility] 3rd [place] [address] Mery Hernandez MD [address] [place], [place] [id number] RLQ Mass [facility] Comment on above: RLQ Mass Start: 06-24-2024 End: 06-24-2024 Patient encounter procedure 06/24/2024 11:20 AM EDT Office Visit Family [facility] [address] [place] [address] Nury Alexander APRN.ASSOCIATE SOFTWARE APPLICATION ENGINEER [address] [place] [address] follow up Family [place] Comment on above: follow up Start: 06-18-2024 End: 06-18-2024 ambulatory [facility] Laboratory Comment on above: CBC/CMP/IRON STUDIES* 2MO OV/LAB EARLY* Start: 06-16-2024 End: 07-12-2025 XR Chest PA and Lateral XR CHEST 2V FRONTAL/LAT Radiology STAT Portal venous hypertension (HCC) Expected: 06/16/2024, Expires: 07/12/2025 [facility] Work Phone: Comment on above: Expected: 06/16/2024, Expires: Start: 06-16-2024 End: 06-16-2024 Patient encounter procedure 06/16/2024 12:40 PM EDT Office Visit Family Madalyn [place] [address] [place], [place] [address] Nury Alexander, GREGORY.ASSOCIATE SOFTWARE APPLICATION ENGINEER [address] [place] [address] follow up Family [place] Comment on above: follow up Start: 06-12-2024 Hemoglobin A1c measurement HbA1C [facility] Start: 06-10-2024 End: 06-10-2024 Patient encounter procedure 06/10/2024 12:00 PM EDT Office Visit Family [place]alyn [place] [address] [place] [address] Nury Alexander, GREGORY.ASSOCIATE SOFTWARE APPLICATION ENGINEER [address] [place] [address] 2 week follow up Family [place] Comment on above: 2 week follow up Start: 06-02-2024 End: 06-02-2024 Patient encounter procedure 06/02/2024 8:00 AM EDT Office Visit Pulmonary Medicine [address] [place] [address] Connor Galvan MD [address] [place] [address] Pulmonary nodules [R91.8] Pulmonary Medicine Comment on above: Pulmonary nodules [R91.8] Start: 06-01-2024 End: 06-01-2024 Patient encounter procedure 06/01/2024 3:00 PM EDT Office Visit General Surgery [address] [place] [address] Alberto Larkin MD [address] [place] [address] Intra-abdominal and pelvic swelling, mass and lump, unspecified site [R19.00] General Surgery Comment on above: Intra-abdominal and pelvic swelling, mas s and lump, unspecified site [R19.00] Start: 05-26-2024 End: 05-26-2024 Patient encounter procedure 05/26/2024 12:00 PM EDT Office Visit Family [facility] [address] [place] [address] Nury Alexander APRN.ASSOCIATE SOFTWARE APPLICATION ENGINEER [address] [place] [address] bp follow up Family [facility] Comment on above: bp follow up Start: 05-26-2024 End: 05-26-2024 ambulatory 05/26/2024 11:00 AM EDT Visit (SP) Office Hematology/Oncology [address] [place] [address] 2nd Hematology/Oncology Comment on above: 2nd Start: 05-25-2024 End: 05-25-2024 Patient encounter procedure 05/25/2024 2:00 PM EDT Office Visit General Surgery [address] [place], [place] [id number] Alberto Larkin MD [address] [place] [address] Intra-abdominal and pelvic swelling, mass and lump, General Surgery Comment on above: Intra-abdominal and pelvic swelling, mas s and lump, Start: 05-22-2024 End: 05-22-2024 ambulatory Hematology/Oncology Comment on above: QWK IRON SUCROSE 300 MG/C3-3/AUTH EXP * 2nd Start: 05-17-2024 Covid-19 Vaccine () Covid-19 Vaccine () [facility] Start: 05-17-2024 Influenza vaccination [facility] Start: 05-15-2024 End: 05-15-2024 ambulatory Hematology/Oncology Comment on above: QWK IRON SUCROSE 300 MG/C2-3/AUTH EXP * 2nd Start: 05-12-2024 End: 05-12-2024 Patient encounter procedure 05/12/2024 8:00 AM EDT Office Visit Family Medicine [place] [address] [place] [address] Nury Alexander APRN.ASSOCIATE SOFTWARE APPLICATION ENGINEER [address] [place], [place] [id number] blood pressure has been running low, Hematology wanted her seen Family Medicine [place] Comment on above: blood pressure has been running low, Hem atology wanted her seen Start: 05-08-2024 End: 05-08-2024 ambulatory Hematology/Oncology Comment on above: START QWK IRON SUCROSE 300 MG/C1-3/AUTH EXP 07/26/24* 2nd Start: 05-07-2024 BP CONTROLLED (<130/80) BP CONTROLLED (<130/80) [facility] Start: 04-29-2024 End: 04-29-2024 Patient encounter procedure 04/29/2024 9:20 AM EDT Office Visit Family Medicine [place] [address] [place], [place] [address] Nury Alexander, SATELLITE MANAGER.ASSOCIATE SOFTWARE APPLICATION ENGINEER [address] [place] [address] blood pressure has been running low, Hematology wanted her seen Family Medicine [place] Comment on above: blood pressure has been running low, Hem atology wanted her seen Start: 04-23-2024 End: 04-23-2024 ambulatory [facility] Laboratory Comment on above: CBC(?TX)/IRON STUDIES* OV/LAB EARLY* Start: 04-22-2024 End: 07-22-2024 Ferritin [Mass/volume] in Serum or Plasma [facility] Lab Routine Iron deficiency anemia secondary to inadequate dietary iron intake Iron malabsorption Expected: 04/22/2024, Expires: 07/22/2024 [facility] Comment on above: Expected: 04/22/2024, Expires: Start: 04-22-2024 End: 07-22-2024 Iron and Iron binding capacity panel - Serum or Plasma IRON AND TIBC Lab Routine Iron deficiency anemia secondary to inadequate dietary iron intake Iron malabsorption Expected: 04/22/2024, Expires: 07/22/2024 [facility] Work Phone: Comment on above: Expected: 04/22/2024, Expires: Start: 04-22-2024 End: 04-22-2024 ambulatory [place] [facility] Comment on above: CBC/IRON STUDIES OV/LAB EARLY* CBC(?TX)/IRON STUDIE S CBC(?TX)/IRON STUDIE S* Start: 04-21-2024 End: 07-21-2024 CBC W Auto Differential panel - Blood COMPLETE BLOOD COUNT AND DIFFERENTIAL Lab STAT Iron deficiency anemia secondary to inadequate dietary iron intake Iron malabsorption Expected: 04/21/2024, Expires: 07/21/2024 [facility] Comment on above: Expected: 04/21/2024, Expires: Start: 04-16-2024 End: 04-16-2024 ambulatory 04/16/2024 11:30 AM EDT Results Only [place] [facility] [address] [place] [address] QWK CBC(TX?)* [facility] Laboratory Comment on above: QWK CBC(TX?)* Start: 04-14-2024 End: 04-14-2024 Patient encounter procedure 04/14/2024 12:00 PM EDT Office Visit Family [facility] Fred [address] [place] [address] Nury Alexander, SATELLITE MANAGER.ASSOCIATE SOFTWARE APPLICATION ENGINEER [address] [place] [address] [facility] f/u d/c 04-02-24. Left lung fluid was drained on 04-02-24. [facility] Fred Comment on above: [facility] f/u d/c 04-02-24. Left lung fluid was drained on 04-02-24. Start: 04-09-2024 End: 04-09-2024 ambulatory 04/09/2024 11:30 AM EDT Results Only [place] [facility] Laboratory [address] [place] [address] QWK CBC(TX?)* [facility] Comment on above: QWK CBC(TX?)* Start: 04-08-2024 End: 04-08-2024 Patient encounter procedure 04/08/2024 12:00 PM EDT Office Visit [facility] Madalyn [place] [address] [place] [address] Nury Alexander, SATELLITE MANAGER.ASSOCIATE SOFTWARE APPLICATION ENGINEER [address] [place] [address] [facility] f/u d/c 04-02-24. Left lung fluid was drained on 04-02-24. [facility] Fred Comment on above: [facility] f/u d/c 04-02-24. Left lung fluid was drained on 04-02-24. Start: 04-02-2024 End: 04-02-2024 ambulatory 04/02/2024 11:30 AM EDT Results Only [facility] [address] [place] [address] QWK CBC(TX?)* [place] [facility] Laboratory Comment on above: QWK CBC(TX?)* Start: 03-31-2024 End: 06-30-2024 Hemoglobin A1c in Blood [facility] Comment on above: Expected: 03/31/2024, Expires: Start: 03-31-2024 End: 06-30-2024 Microalbumin/Creatinine [Mass Ratio] in Urine ALBUMIN/CREATININE RATIO, URINE Lab Routine Uncontrolled type 2 diabetes mellitus with hyperglycemia (HCC) Expected: 03/31/2024, Expires: 06/30/2024 [facility] Comment on above: Expected: 03/31/2024, Expires: Start: 03-31-2024 End: 06-30-2024 Natriuretic peptide.B prohormone N-Terminal [Mass/volume] in Serum or Plasma [facility] Comment on above: Expected: 03/31/2024, Expires: Start: 03-31-2024 End: 03-31-2024 Patient encounter procedure Family Medicine [facility] Comment on above: 3 month follow up Annual [facility] 3 [facility] follow up Start: 03-26-2024 End: 03-26-2024 ambulatory 03/26/2024 11:30 AM EDT Results Only Fred Stroud [facility] Laboratory [address] [place] [address] QWK CBC(TX?)* [facility] Comment on above: QWK CBC(TX?)* Start: 03-18-2024 End: 03-18-2024 ambulatory 03/18/2024 11:30 AM EDT Results Only Fred Sandhuwn [facility] Laboratory [address] [place] [address] QWK CBC(TX?)* Yumalynn Sandhuwn [facility] Laboratory Comment on above: QWK CBC(TX?)* Start: 03-16-2024 End: 03-16-2024 Nursing evaluation of patient and report 03/16/2024 9:15 AM EDT Nurse Visit Cardiology [address] [place] [address] Wstr, Nurse Card Admin [facility] [address] [place] [address] Encounter for screening for cardiovascular disorders [Z13.6] Cardiology Comment on above: Encounter for screening for cardiovascul ar disorders [Z13.6] Start: 03-16-2024 End: 03-16-2024 Patient encounter procedure Nuclear Medicine Comment on above: Encounter for screening for cardiovascul ar disorders [Z13.6] Start: 03-15-2024 Influenza vaccination [facility] Comment on above: Postponed from 05/17/2023 (Declined at t his time) Start: 03-12-2024 End: 03-12-2024 Patient encounter procedure 03/12/2024 12:40 PM EDT Office Visit Family [facility] [address] [place], [place] [id number] Kavitha Hayes APRN.ASSOCIATE SOFTWARE APPLICATION ENGINEER [address] [place] [address] Hospital Follow Up - TCM Eligible until 03/15/24 [facility] [place] Comment on above: Hospital Follow Up - TCM Eligible until 03/15/24 Start: 03-12-2024 End: 03-12-2024 ambulatory [facility] Comment on above: QWK CBC(TX?)* IRON SUCROSE 200 MG/ C5-5/ AUTH EXP? Start: 03-10-2024 End: 03-10-2024 ambulatory Hematology/Oncology Comment on above: IRON SUCROSE 200 MG/C5-5/ AUTH EXP? IRON SUCROSE 200 MG/ C4-5/ AUTH EXP? Start: 03-05-2024 ANNUAL PCP TEAM CHRONIC DISEASE VISIT ANNUAL PCP TEAM CHRONIC DISEASE VISIT [facility] Start: 03-05-2024 BP CONTROLLED (<130/80) BP CONTROLLED (<130/80) [facility] Start: 03-05-2024 COVID-19 VACCINE (#1) COVID-19 VACCINE (#1) [facility] Comment on above: Postponed from 1954 (Declined at t his time) Start: 03-05-2024 End: 03-05-2024 ambulatory Hematology/Oncology Comment on above: IRON SUCROSE 200 MG/C4-5/ AUTH EXP? CBC(TX?)* per pt C2 completed in hospital Start: 03-02-2024 End: 03-02-2024 ambulatory Hematology/Oncology Comment on above: IRON SUCROSE 200 MG/C3-5/ AUTH EXP? CBC(TX?)* Start: 02-28-2024 End: 02-28-2024 ambulatory 02/28/2024 1:30 PM EDT Infusion Center Hematology/Oncology [address] [place] [address] IRON SUCROSE 200 MG/C2-5/ AUTH EXP? Hematology/Oncology Comment on above: IRON SUCROSE 200 MG/C2-5/ AUTH EXP? Start: 02-27-2024 End: 02-27-2024 ambulatory 02/27/2024 1:30 PM EDT Results Only Fred Sandhuwn [facility] Laboratory [address] [place] [address] CBC (TX?)* [place] [facility] Laboratory Comment on above: CBC (TX?)* Start: 02-25-2024 End: 02-25-2024 ambulatory 02/25/2024 1:30 PM EDT Infusion Center Hematology/Oncology [address] [place] [address] START IRON SUCROSE 200 MG/ C1-5/ AUTH EXP? Hematology/Oncology Comment on above: START IRON SUCROSE 200 MG/ C1-5/ AUTH EX P? Start: 02-24-2024 End: 02-24-2024 Patient encounter procedure 02/24/2024 2:40 PM EDT Office Visit Cardiology [address] [place] [address] Uncontrolled type 2 diabetes mellitus with hyperglycemia (HCC) [E11.65] Cardiology Comment on above: Uncontrolled type 2 diabetes mellitus wi th hyperglycemia (HCC) [E11.65] Start: 02-24-2024 End: 02-24-2024 ambulatory 02/24/2024 2:15 PM EDT Results Only Fred Sandhuwn [facility] Laboratory [address] [place] [address] CBC (TX?)* Fred Stroud [facility] Laboratory Comment on above: CBC (TX?)* Start: 02-18-2024 End: 02-18-2024 ambulatory 02/18/2024 1:00 PM EDT Visit (SP) Office Hematology/Oncology [address] [place] [address] Carla Franco APRN.ASSOCIATE SOFTWARE APPLICATION ENGINEER [address] [place] [address] 6WK OVLAST IRON 01/06/24* Hematology/Oncology Comment on above: 6WK OVLAST IRON 01/06/24* Start: 02-11-2024 End: 02-11-2024 Patient encounter procedure 02/11/2024 3:30 PM EDT Office Visit Cardiology [address] [place] [address] Uncontrolled type 2 diabetes mellitus with hyperglycemia (HCC) [E11.65] Cardiology Comment on above: Uncontrolled type 2 diabetes mellitus wi th hyperglycemia (HCC) [E11.65] Start: 2024 End: 04-29-2024 25-hydroxyvitamin D3 [Mass/volume] in Serum or Plasma VITAMIN D 25 HYDROXY Lab Routine Weight loss, unintentional Fatigue, unspecified type Expected: 2024, Expires: 04/29/2024 [facility] Comment on above: Expected: 2024, Expires: Start: 2024 End: 04-29-2024 Cobalamin (Vitamin B12) [Mass/volume] in Serum or Plasma VITAMIN B12 Lab Routine Weight loss, unintentional Fatigue, unspecified type Expected: 2024, Expires: 04/29/2024 [facility] Comment on above: Expected: 2024, Expires: Start: 2024 End: 04-29-2024 PROTEIN ELECTROPHORESIS SERUM W/INTERP PROTEIN ELECTROPHORESIS SERUM W/INTERP Lab Routine Weight loss, unintentional Fatigue, unspecified type Expected: 2024, Expires: 04/29/2024 [facility] Comment on above: Expected: 2024, Expires: Start: 2024 End: 04-29-2024 Thyrotropin [Units/volume] in Serum or Plasma THYROID STIMULATING HORMONE Lab Routine Hypothyroidism, acquired Expected: 2024, Expires: 04/29/2024 [facility] Comment on above: Expected: 2024, Expires: 4 Start: 2024 End: 04-29-2024 Thyroxine (T4) free [Mass/volume] in Serum or Plasma T4 FREE/FREE THYROXINE Lab Routine Hypothyroidism, acquired Expected: 2024, Expires: 04/29/2024 [facility] Comment on above: Expected: 2024, Expires: Start: 2024 End: 04-29-2024 Triiodothyronine (T3) Free [Mass/volume] in Serum or Plasma T3, FREE Lab Routine Hypothyroidism, acquired Expected: 2024, Expires: 04/29/2024 [facility] Comment on above: Expected: 2024, Expires: Start: 01-17-2024 End: 01-17-2024 ambulatory 01/17/2024 3:00 PM EDT Infusion Center Hematology/Oncology [address] [place] [address] IRON SUCROSE 5-5/ AUTH EXP?* Hematology/Oncology Comment on above: IRON SUCROSE 5-5/ AUTH EXP?* Start: 01-16-2024 End: 01-16-2024 Patient encounter procedure 01/16/2024 1:50 PM EDT Office Visit Cardiology [address] [place] [address] Uncontrolled type 2 diabetes mellitus with hyperglycemia (HCC) [E11.65] Cardiology Comment on above: Uncontrolled type 2 diabetes mellitus wi th hyperglycemia (HCC) [E11.65] Start: 01-15-2024 End: 01-15-2024 ambulatory 01/15/2024 3:30 PM EDT Infusion Center Hematology/Oncology [address] [place] [address] IRON SUCROSE 4-5/ AUTH EXP?* Hematology/Oncology Comment on above: IRON SUCROSE 4-5/ AUTH EXP?* Start: 01-14-2024 End: 01-14-2024 Patient encounter procedure 01/14/2024 11:40 AM EDT Appointment Cat Scan [address] [place] [address] Pleural effusion [J90]; Exertional shortness of breath [R06.02] Cat Scan Comment on above: Pleural effusion [J90]; Exertional short ness of breath [R06.02] Start: 12-11-2023 End: 03-11-2024 CBC W Auto Differential panel - Blood CBC + DIFF Lab STAT Iron deficiency anemia secondary to inadequate dietary iron intake Splenomegaly Thrombocytopenia (HCC) Expected: 12/11/2023, Expires: 03/11/2024 [facility] Work Phone: Comment on above: Expected: 12/11/2023, Expires: Start: 12-11-2023 End: 03-11-2024 Ferritin [Mass/volume] in Serum or Plasma FERRITIN BLD Lab Routine Iron deficiency anemia secondary to inadequate dietary iron intake Splenomegaly Thrombocytopenia (HCC) Expected: 12/11/2023, Expires: 03/11/2024 [facility] Work Phone: Comment on above: Expected: 12/11/2023, Expires: Start: 12-11-2023 End: 03-11-2024 Iron and Iron binding capacity panel - Serum or Plasma IRON + TIBC Lab Routine Iron deficiency anemia secondary to inadequate dietary iron intake Splenomegaly Thrombocytopenia (HCC) Expected: 12/11/2023, Expires: 03/11/2024 [facility] Work Phone: Comment on above: Expected: 12/11/2023, Expires: 4 Start: 12-11-2023 End: 03-11-2024 RETIC COUNT RETIC COUNT Lab Routine Iron deficiency anemia secondary to inadequate dietary iron intake Splenomegaly Thrombocytopenia (HCC) Expected: 12/11/2023, Expires: 03/11/2024 [facility] Work Phone: Comment on above: Expected: 12/11/2023, Expires: 4 Start: 12-06-2023 Hepatitis B screening URINE ALBUMIN:CREATININE RATIO [facility] Start: 12-06-2023 Hepatitis B surface antibody level LDL CHOLESTEROL [facility] Start: 11-29-2023 3 comp foot exam completed DIABETIC FOOT EXAM [facility] Start: 11-29-2023 ANNUAL PCP TEAM CHRONIC DISEASE VISIT ANNUAL PCP TEAM CHRONIC DISEASE VISIT [facility] Start: 11-29-2023 BP CONTROLLED (<130/80) BP CONTROLLED (<130/80) [facility] Start: 11-29-2023 Diabetic foot examination Diabetic Foot Exam [facility] Start: 11-09-2023 BP CONTROLLED (<130/80) BP CONTROLLED (<130/80) [facility] Start: 10-27-2023 Hemoglobin A1c measurement HbA1C [facility] Start: 10-27-2023 Hemoglobin A1c/Hemoglobin.total in Blood HbA1C [facility] Start: 09-30-2023 Glaucoma screening Dilated Retinal Exam [facility] Start: 09-30-2023 Hepatitis C antibody, confirmatory test DILATED RETINAL EXAM [facility] Start: 09-04-2023 Hemoglobin A1c/Hemoglobin.total in Blood HBA1C [facility] Start: 08-21-2023 End: 11-20-2023 CBC W Auto Differential panel - Blood CBC + DIFF Lab Routine Splenomegaly Thrombocytopenia (HCC) Expected: 08/21/2023, Expires: 11/20/2023 [facility] Work Phone: Comment on above: Expected: 08/21/2023, Expires: 4 Start: 07-27-2023 End: 10-26-2023 CBC W Auto Differential panel - Blood [facility] Work Phone: Comment on above: Expected: 07/27/2023, Expires: 4 Start: 07-27-2023 End: 10-26-2023 Cobalamin (Vitamin B12) [Mass/volume] in Serum or Plasma [facility] Work Phone: Comment on above: Expected: 07/27/2023, Expires: 4 Start: 07-27-2023 End: 10-26-2023 Comprehensive metabolic 2000 panel - Serum or Plasma [facility] Work Phone: Comment on above: Expected: 07/27/2023, Expires: 4 Start: 07-27-2023 End: 10-26-2023 Ferritin [Mass/volume] in Serum or Plasma [facility] Work Phone: Comment on above: Expected: 07/27/2023, Expires: 4 Start: 07-27-2023 End: 10-26-2023 Hemoglobin A1c in Blood [facility] Work Phone: Comment on above: Expected: 07/27/2023, Expires: 4 Start: 07-27-2023 End: 10-26-2023 Iron and Iron binding capacity panel - Serum or Plasma [facility] Work Phone: Comment on above: Expected: 07/27/2023, Expires: 4 Start: 06-07-2023 Hemoglobin A1c/Hemoglobin.total in Blood HBA1C [facility] Start: 05-29-2023 BP CONTROLLED (<130/80) BP CONTROLLED (<130/80) [facility] Start: 05-17-2023 Covid-19 Vaccine ( season) Covid-19 Vaccine ( season) [facility] Start: 05-17-2023 Influenza vaccination [facility] Start: 04-17-2023 BP CONTROLLED (<130/80) BP CONTROLLED (<130/80) [facility] Start: 03-28-2023 BP CONTROLLED (<130/80) BP CONTROLLED (<130/80) [facility] Start: 03-15-2023 Influenza vaccination INFLUENZA (#1) [facility] Comment on above: Postponed from 05/17/2022 (Declined at t his time) Start: 03-05-2023 End: 05-05-2023 Acute hepatitis 2000 panel - Serum [facility] Work Phone: Comment on above: Expected: 03/05/2023, Expires: 3 Start: 03-05-2023 End: 05-05-2023 ALK PHOS ISOENZYM BL [facility] Work Phone: Comment on above: Expected: 03/05/2023, Expires: 3 Start: 03-05-2023 End: 05-05-2023 Chronic hepatitis differentiation between hepatitis B and C virus panel - Serum or Plasma [facility] Work Phone: Comment on above: Expected: 03/05/2023, Expires: 3 Start: 03-05-2023 End: 05-05-2023 Hemoglobin A1c in Blood [facility] Work Phone: Comment on above: Expected: 03/05/2023, Expires: 3 Start: 03-05-2023 End: 05-05-2023 Hepatitis C virus Ab [Presence] in Serum [facility] Work Phone: Comment on above: Expected: 03/05/2023, Expires: 3 Start: 01-16-2023 BP CONTROLLED (<130/80) BP CONTROLLED (<130/80) [facility] Start: 01-15-2023 Hepatitis C antibody, confirmatory test DILATED RETINAL EXAM [facility] Start: 01-05-2023 ANNUAL PCP TEAM CHRONIC DISEASE VISIT ANNUAL PCP TEAM CHRONIC DISEASE VISIT [facility] Start: 01-05-2023 BP CONTROLLED (<130/80) BP CONTROLLED (<130/80) [facility] Start: 01-05-2023 COVID-19 VACCINE (#1) COVID-19 VACCINE (#1) [facility] Comment on above: Postponed from 1959 (Declined at t his time) Postponed from 08/01 (Declined at this time) Start: 01-05-2023 COVID-19 VACCINE (1) COVID-19 VACCINE (1) [facility] Comment on above: Postponed from 1959 (Declined at t his time) Start: 11-28-2022 End: 01-28-2023 25-hydroxyvitamin D3 [Mass/volume] in Serum or Plasma VITAMIN D 25 HYDROXY Lab Routine Fatigue, unspecified type Vitamin D deficiency Expected: 11/28/2022, Expires: 01/28/2023 [facility] Work Phone: Comment on above: Expected: 11/28/2022, Expires: 3 Start: 11-28-2022 End: 01-28-2023 ALBUMIN/CREAT RATIO RND UR ALBUMIN/CREAT RATIO RND UR Lab Routine Controlled type 2 diabetes mellitus without complication, without long-term current use of insulin (HCC) Expected: 11/28/2022, Expires: 01/28/2023 [facility] Work Phone: Comment on above: Expected: 11/28/2022, Expires: 3 Start: 11-28-2022 End: 01-28-2023 CBC W Auto Differential panel - Blood CBC + DIFF Lab Routine Controlled type 2 diabetes mellitus without complication, without long-term current use of insulin (HCC) Expected: 11/28/2022, Expires: 01/28/2023 [facility] Work Phone: Comment on above: Expected: 11/28/2022, Expires: 3 Start: 11-28-2022 End: 01-28-2023 CELIAC COMPREHENSIVE PANEL CELIAC COMPREHENSIVE PANEL Lab Routine Diarrhea, unspecified type Expected: 11/28/2022, Expires: 01/28/2023 [facility] Work Phone: Comment on above: Expected: 11/28/2022, Expires: 3 Start: 11-28-2022 End: 01-28-2023 Cobalamin (Vitamin B12) [Mass/volume] in Serum or Plasma VITAMIN B12 BLOOD Lab Routine Fatigue, unspecified type Expected: 11/28/2022, Expires: 01/28/2023 [facility] Work Phone: Comment on above: Expected: 11/28/2022, Expires: 3 Start: 11-28-2022 End: 01-28-2023 Comprehensive metabolic 2000 panel - Serum or Plasma COMP METABOLIC PANEL Lab Routine Controlled type 2 diabetes mellitus without complication, without long-term current use of insulin (HCC) Expected: 11/28/2022, Expires: 01/28/2023 [facility] Work Phone: Comment on above: Expected: 11/28/2022, Expires: 3 Start: 11-28-2022 End: 01-28-2023 Helicobacter pylori IgG Ab [Presence] in Serum or Plasma by Immunoassay H PYLORI IGG AB Lab Routine Diarrhea, unspecified type Expected: 11/28/2022, Expires: 01/28/2023 [facility] Work Phone: Comment on above: Expected: 11/28/2022, Expires: Start: 11-28-2022 End: 01-28-2023 Hemoglobin A1c in Blood HGB A1C Lab Routine Controlled type 2 diabetes mellitus without complication, without long-term current use of insulin ([facility]) Expected: 11/28/2022, Expires: 01/28/2023 [facility] Work Phone: Comment on above: Expected: 11/28/2022, Expires: Start: 11-28-2022 End: 01-28-2023 Lipase [Enzymatic activity/volume] in Serum or Plasma LIPASE BLD Lab Routine Diarrhea, unspecified type Expected: 11/28/2022, Expires: 01/28/2023 [facility] Work Phone: Comment on above: Expected: 11/28/2022, Expires: 3 Start: 11-28-2022 End: 01-28-2023 Lipid 1996 panel - Serum or Plasma LIPID PANEL BASIC Lab Routine Dyslipidemia Expected: 11/28/2022, Expires: 01/28/2023 [facility] Work Phone: Comment on above: Expected: 11/28/2022, Expires: 3 Start: 11-28-2022 End: 01-28-2023 Thyrotropin [Units/volume] in Serum or Plasma TSH BLD Lab Routine Hypothyroidism, acquired Fatigue, unspecified type Expected: 11/28/2022, Expires: 01/28/2023 [facility] Work Phone: Comment on above: Expected: 11/28/2022, Expires: 3 Start: 11-28-2022 End: 01-28-2023 Thyroxine (T4) free [Mass/volume] in Serum or Plasma T4 FREE/FREE THYROX Lab Routine Hypothyroidism, acquired Fatigue, unspecified type Expected: 11/28/2022, Expires: 01/28/2023 [facility] Work Phone: Comment on above: Expected: 11/28/2022, Expires: 3 Start: 11-09-2022 End: 11-23-2022 Influenza virus A and B RNA and SARS-CoV-2 (COVID-19) N gene panel - Respiratory specimen by CHOLO with probe detection COVID WITH FLUA+B, ROUTINE Microbiology Routine URI, acute Expected: 11/09/2022, Expires: 11/23/2022 [facility] Work Phone: Comment on above: Expected: 11/09/2022, Expires: 3 Start: 09-16-2022 ADVANCE DIRECTIVE DISCUSSION ADVANCE DIRECTIVE DISCUSSION [facility] Start: 07-04-2022 Hemoglobin A1c/Hemoglobin.total in Blood HBA1C [facility] Start: 06-26-2022 ANNUAL PCP TEAM CHRONIC DISEASE VISIT ANNUAL PCP TEAM CHRONIC DISEASE VISIT [facility] Start: 06-26-2022 Hepatitis B screening URINE ALBUMIN:CREATININE RATIO [facility] Start: 06-26-2022 Hepatitis B surface antibody level LDL CHOLESTEROL [facility] Start: 05-17-2022 Influenza vaccination [facility] Start: 04-06-2022 End: 06-06-2022 CBC panel - Blood by Automated count CBC Lab Routine Controlled type 2 diabetes mellitus without complication, without long-term current use of insulin (HCC) Expected: 04/06/2022, Expires: 06/06/2022 [facility] Work Phone: Comment on above: Expected: 04/06/2022, Expires: 2 Start: 04-06-2022 End: 06-06-2022 Comprehensive metabolic 2000 panel - Serum or Plasma COMP METABOLIC PANEL Lab Routine Controlled type 2 diabetes mellitus without complication, without long-term current use of insulin (HCC) Expected: 04/06/2022, Expires: 06/06/2022 [facility] Work Phone: Comment on above: Expected: 04/06/2022, Expires: 2 Start: 04-06-2022 End: 06-06-2022 Hemoglobin A1c/Hemoglobin.total in Blood HGB A1C Lab Routine Controlled type 2 diabetes mellitus without complication, without long-term current use of insulin (HCC) Expected: 04/06/2022, Expires: 06/06/2022 [facility] Work Phone: Comment on above: Expected: 04/06/2022, Expires: 2 Start: 04-06-2022 End: 06-06-2022 LIPID PANEL BASIC LIPID PANEL BASIC Lab Routine Dyslipidemia Expected: 04/06/2022, Expires: 06/06/2022 [facility] Work Phone: Comment on above: Expected: 04/06/2022, Expires: 2 Start: 04-06-2022 End: 06-06-2022 T4 FREE/FREE THYROX T4 FREE/FREE THYROX Lab Routine Hypothyroidism, acquired Expected: 04/06/2022, Expires: 06/06/2022 [facility] Work Phone: Comment on above: Expected: 04/06/2022, Expires: 2 Start: 04-06-2022 End: 06-06-2022 Thyrotropin [Units/volume] in Serum or Plasma TSH BLD Lab Routine Hypothyroidism, acquired Expected: 04/06/2022, Expires: 06/06/2022 [facility] Work Phone: Comment on above: Expected: 04/06/2022, Expires: 2 Start: 03-15-2022 Influenza vaccination INFLUENZA (#1) [facility] Comment on above: Postponed from 05/17/2021 (Declined at t his time) Start: 02-09-2022 Hepatitis C antibody, confirmatory test DILATED RETINAL EXAM [facility] Start: 12-04-2021 End: 02-03-2022 Hemoglobin A1c/Hemoglobin.total in Blood HGB A1C Lab Routine Controlled type 2 diabetes mellitus without complication, without long-term current use of insulin (HCC) Expected: 12/04/2021, Expires: 02/03/2022 [facility] Work Phone: Comment on above: Expected: 12/04/2021, Expires: 2 Start: 11-30-2021 Hemoglobin A1c/Hemoglobin.total in Blood HBA1C [facility] Start: 09-16-2021 ADVANCE DIRECTIVE DISCUSSION ADVANCE DIRECTIVE DISCUSSION [facility] Start: 07-02-2019 Mammography [facility] Start: 2019 BONE DENSITY BONE DENSITY [facility] Start: 2019 Bone Density Screening Bone Density Screening [facility] Start: 2019 PNEUMOVAX AGE 65 AND OVER WITH 5YR LOOKBACK (#1) PNEUMOVAX AGE 65 AND OVER WITH 5YR LOOKBACK (#1) [facility] Start: 2019 Screening for osteoporosis Bone Density Screening [facility] Start: 12-18-2018 3 comp foot exam completed DIABETIC FOOT EXAM [facility] Start: 02-07-2018 End: 02-07-2018 Appointment Appointment [facility] Work Phone: Start: 2014 Hepatitis B Vaccine (1 of 3 - Risk 3-dose series) Hepatitis B Vaccine (1 of 3 - Risk 3-dose series) [facility] Start: 2014 RSV Vaccine (1 - 1-dose 60+ series) RSV Vaccine (1 - 1-dose 60+ series) [facility] Start: 2014 RSV Vaccine (1 - Risk 60-74 years 1-dose series) RSV Vaccine (1 - Risk 60-74 years 1-dose series) [facility] Start: 01-30-2004 SHINGRIX VACCINE (1 of 2) SHINGRIX VACCINE (1 of 2) [facility] Start: 1999 COLOGUARD (FIT-DNA) COLOGUARD (FIT-DNA) [facility] Start: [address] COLONOGRAPHY [facility] Start: 1999 FECAL OCCULT BLOOD FECAL OCCULT BLOOD [facility] Start: 1999 Screening for malignant neoplasm of colon [facility] Start: 1999 SIGMOIDOSCOPY SIGMOIDOSCOPY [facility] Start: 1973 Hepatitis A Vaccine (1 of 2 - Risk 2-dose series) Hepatitis A Vaccine (1 of 2 - Risk 2-dose series) [facility] Start: 1973 Pneumococcal Vaccine: 50+ (1 of 2 - PCV) Pneumococcal Vaccine: 50+ (1 of 2 - PCV) [facility] Start: 01-30-1972 BP CONTROLLED (<130/80) BP CONTROLLED (<130/80) [facility] Start: 01-30-1960 Pneumococcal Vaccine: 65+ (1 - PCV) Pneumococcal Vaccine: 65+ (1 - PCV) [facility] Start: 01-30-1960 Pneumococcal Vaccine: 65+ (1 of 2 - PCV) Pneumococcal Vaccine: 65+ (1 of 2 - PCV) [facility] Start: 01-30-1960 PNEUMOCOCCAL: 65+ (1 - PCV) PNEUMOCOCCAL: 65+ (1 - PCV) [facility] Start: 1959 COVID-19 VACCINE (1) COVID-19 VACCINE (1) [facility] Start: 1954 COVID-19 VACCINE (#1) COVID-19 VACCINE (#1) [facility] Alpha 1 antitrypsin [Mass/volume] in Serum or Plasma [facility] Bacteria identified in Urine by Culture URINE CULTURE Microbiology Routine Urinary urgency Ordered: 05/29/2022 [facility] Work Phone: Comment on above: Ordered: 05/29/2022 Bacteria identified in Urine by Culture URINE CULTURE Microbiology Routine Urinary frequency 02/14/2023 2:02 PM EDT [facility] Work Phone: Bacteria identified in Urine by Culture URINE CULTURE Microbiology Routine Urinary frequency 07/29/2023 4:38 PM EST [facility] Work Phone: Bacteria identified in Urine by Culture BACTERIAL CULTURE, URINE Microbiology Routine Burning with urination 05/19/2025 12:00 PM EDT [facility] Work Phone: BD DXA TRABECULAR JENNIFER NE SCORE (TBS) BD DXA TRABECULAR BONE SCORE (TBS) Radiology Routine Encounter for imaging to assess osteoporosis Encounter for screening for osteoporosis 08/21/2023 10:06 AM EST [facility] Work Phone: End: 12-25-2025 BD DXA TRABECULAR BONE SCORE (TBS) BD DXA TRABECULAR BONE SCORE (TBS) Radiology Routine Osteopenia, senile 1 Occurrences starting 11/25/2024 until 12/25/2025 [facility] Comment on above: 1 Occurrences starting 11/25/2024 until 12/25/2025 C reactive protein [Mass/volume] in Serum or Plasma [facility] End: 11-25-2025 CBC W Auto Differential panel - Blood COMPLETE BLOOD COUNT AND DIFFERENTIAL Lab Routine Other iron deficiency anemia Every 3 weeks for 24 Occurrences starting 11/25/2024 until 11/25/2025 [facility] Comment on above: Every 3 weeks for 24 Occurrences startin g 11/25/2024 until 11/25/2025 CBC W Auto Different ial panel - Blood COMPLETE BLOOD COUNT AND DIFFERENTIAL Lab Routine Other iron deficiency anemia 11/25/2024 1:45 PM EDT [facility] CBC W Auto Different ial panel - Blood [facility] Ceruloplasmin [Mass/volume] in Serum or Plasma [facility] End: 11-25-2025 Comprehensive metabolic 2000 panel - Serum or Plasma COMPREHENSIVE METABOLIC PANEL Lab Routine Other iron deficiency anemia Every 3 weeks for 24 Occurrences starting 11/25/2024 until 11/25/2025 [facility] Comment on above: Every 3 weeks for 24 Occurrences startin g 11/25/2024 until 11/25/2025 Comprehensive metabo lic 2000 panel - Serum or Plasma COMPREHENSIVE METABOLIC PANEL Lab Routine Other iron deficiency anemia 11/25/2024 1:45 PM EDT [facility] Comprehensive metabo lic 2000 panel - Serum or Plasma [facility] Creatine kinase [Enzymatic activity/volume] in Serum or Plasma [facility] CT Abdomen and Pelvi s W contrast IV CT ABD/PEL W IVCON Radiology Routine Right lower quadrant abdominal pain 08/04/2024 10:39 AM EST [facility] Work Phone: CT Chest W contrast IV CT CHEST W IVCON Radiology Routine Lung nodules 08/04/2024 10:39 AM EST [facility] End: 01-30-2025 CT Chest WO contrast CT CHEST WO IVCON Radiology Routine Pleural effusion Exertional shortness of breath 1 Occurrences starting 01/01/2024 until 01/30/2025 [facility] Work Phone: Comment on above: 1 Occurrences starting 01/01/2024 until 01/30/2025 CT Chest WO contrast CT CHEST WO IVCON Radiology Routine Pleural effusion Exertional shortness of breath 01/14/2024 12:06 PM EDT [facility] Work Phone: End: 04-30-2025 DBT Breast - bilateral screening JAN SCREENING W MORGAN Radiology Routine Encounter for screening mammogram for breast cancer 1 Occurrences starting 03/31/2024 until 04/30/2025 [facility] Work Phone: Comment on above: 1 Occurrences starting 03/31/2024 until 04/30/2025 Diagnostic bone randall ow biopsies IMAGING GUIDED BIOPSY BONE MARROW (HEMATOLOGY) Radiology Routine Splenomegaly Thrombocytopenia (HCC) Ordered: 08/21/2023 [facility] Work Phone: Comment on above: Ordered: 08/21/2023 End: 12-25-2025 DXA Skeletal system.axial Views for bone density DXA-AXIAL SKELETON Radiology Routine Osteopenia, senile 1 Occurrences starting 11/25/2024 until 12/25/2025 [facility] Comment on above: 1 Occurrences starting 11/25/2024 until 12/25/2025 End: 08-30-2024 DXA-FOREARM SKELETON DXA-FOREARM SKELETON Radiology Routine Screening for osteoporosis 1 Occurrences starting 08/01/2023 until 08/30/2024 [facility] Work Phone: Comment on above: 1 Occurrences starting 08/01/2023 until 08/30/2024 ECG COMPLETE ECG COMPLETE ECG Routine Uncontrolled type 2 diabetes mellitus with hyperglycemia (HCC) Portal venous hypertension (HCC) Exertional shortness of breath Hypertension, essential Ordered: 12/30/2023 [facility] Comment on above: Ordered: 12/30/2023 End: 12-29-2024 Echocardiography ECHO Cardiology Routine Uncontrolled type 2 diabetes mellitus with hyperglycemia (HCC) Portal venous hypertension (HCC) Exertional shortness of breath Hypertension, essential 1 Occurrences starting 12/30/2023 until 12/29/2024 [facility] Comment on above: 1 Occurrences starting 12/30/2023 until 12/29/2024 Ferritin [Mass/volum e] in Serum or Plasma [facility] Hemoglobin.gastroint merissa alMaguilower [Presence] in Stool by Immunoassay FECAL OCCULT BLOOD TEST Lab Routine Anemia, unspecified type Ordered: 12/13/2022 [facility] Work Phone: Comment on above: Ordered: 12/13/2022 IgA [Mass/volume] in Serum or Plasma [facility] End: 12-25-2025 MG Breast Screening JAN SCREENING Radiology Routine Encounter for screening mammogram for malignant neoplasm of breast 1 Occurrences starting 11/25/2024 until 12/25/2025 [facility] Work Phone: Comment on above: 1 Occurrences starting 11/25/2024 until 12/25/2025 End: 01-28-2025 NM Heart Perfusion W stress and W radionuclide IV NM CARDIAC PERF STRESS/PHARM Radiology Routine Encounter for screening for cardiovascular disorders 1 Occurrences starting 12/30/2023 until 01/28/2025 [facility] Work Phone: Comment on above: 1 Occurrences starting 12/30/2023 until 01/28/2025 Patient Education GI Bleeding Ch [facility] Work Phone: Patient referral [facility] Work Phone: Prothrombin time [facility] End: 04-20-2023 Screening mammography bi 2-view breast inc cad JAN SCREENING Radiology Routine Encounter for screening mammogram for breast cancer 1 Occurrences starting 03/21/2022 until 04/20/2023 [facility] Work Phone: Comment on above: 1 Occurrences starting 03/21/2022 until 04/20/2023 Tissue transglutamin ase IgG Ab [Units/volume] in Serum [facility] Transferrin [Mass/vo lume] in Serum or Plasma [facility] UA DIP, URINE (POC) UA DIP, URIN E (POC) Lab Routine Urinary urgency Ordered: 05/29/2022 [facility] Work Phone: Comment on above: Ordered: 05/29/2022 End: 04-03-2024 US ABD RIGHT UPPER QUADRANT US ABD RIGHT UPPER QUADRANT Radiology Routine Functional diarrhea Esophageal varices determined by endoscopy (HCC) 1 Occurrences starting 03/05/2023 until 04/03/2024 [facility] Work Phone: Comment on above: 1 Occurrences starting 03/05/2023 until 04/03/2024 XR Chest PA and Lateral XR CHEST 2V FRONTAL/LAT Radiology Routine Portal venous hypertension (HCC) 11/17/2024 2:29 PM EST [facility] [employer] Work Phone: End: 11-06-2025 XR Shoulder - left 3 Views XR SHOULDER GENERAL 3V OR MORE AP/TRUE AP/OTHER LEFT Radiology Routine Left shoulder pain, unspecified chronicity 1 Occurrences starting 10/07/2024 until 11/06/2025 [facility] Work Phone: Comment on above: 1 Occurrences starting 10/07/2024 until 11/06/[address] [facility] Immunizations Immunization Date Immunization Notes Care Provider Mellissa sylvester 06-20-2018 influenza virus vaccine, unspecified formulation Juan Locke DO Work Phone: [facility] No information available. Karina Valdes [facility] Work Phone: Payers Date Payer Category Payer Self-pay [id number] 2021 Medicare (Managed Care) [employer] O [id number] 2021 Unknown ANTHEM BLUE CROS S AND BLUE SHIELD ANTHEM MEDIBLUE HMO [id number] 2021-Present [phone] [address] [place] [address] O [id number] .[id number] 2021 Medicare [id number] 2019 Unknown [id number] .[id number] 2014 Medicare MEDICARE PART A B [id number] Medicare ANTH MEDICARE PPO [id number] Private Health Insurance [facility] SFQ1S [id number] Unknown [id number] 2.0.1.072499.3.579 .2.462 Unknown [id number] 2.0.1.610952.3.579 .2.462 Unknown [id number] 2.0.1.845326.3.579 .2.462 Unknown [id number] 2.840.1.868314.3.579 .2.462 Unknown [id number] 2.0.1.468401.3.579 .2.462 Unknown [id number] 2.840.1.953329.3.579 .2.462 Unknown [id number] 2.840.1.635938.3.579 .2.462 Unknown [id number] 2.0.1.191818.3.579 .2.462 Unknown [id number] 2.16.840.1.964424.3.579 .2.462 Unknown [id number] 2.16.840.1.298052.3.579 .2.462 Unknown [id number] 2.16.840.1.526085.3.579 .2.462 Unknown [id number] 2.16.840.1.460603.3.579 .2.462 Unknown [id number] 2.16.840.1.146766.3.579 .2.462 Unknown [id number] 2.16.840.1.237930.3.579 .2.462 Unknown [id number] 2.16.840.1.962615.3.579 .2.462 Unknown [id number] 2.840.1.951750.3.579 .2.462 Unknown [id number] 2.16840.1.828128.3.579 .2.462 Unknown [id number] 2.16840.1.649152.3.579 .2.462 Unknown [id number] 2.840.1.207004.3.579 .2.462 Unknown [id number] 2.16.840.1.816123.3.579 .2.462 Unknown [id number] 2.16840.1.043299.3.579 .2.462 Unknown [id number] 2.16.840.1.192469.3.579 .2.462 Unknown [id number] 2.16.840.1.324206.3.579 .2.462 Unknown [id number] 2.16.840.1.421894.3.579 .2.462 Unknown [id number] 2.16.840.1.046833.3.579 .2.462 Unknown [id number] 2.16.840.1.223632.3.579 .2.462 Unknown [id number] 2.16.840.1.780483.3.579 .2.462 Unknown [id number] 2.16.840.1.248278.3.579 .2.462 Unknown [id number] 2.16.840.1.467789.3.579 .2.462 Unknown [id number] 2.16.840.1.533257.3.579 .2.462 Unknown [id number] 2.16.840.1.549979.3.579 .2.462 Unknown [id number] 2.16.840.1.456749.3.579 .2.462 Social History Date Type Detail Facility Start: 06-21-2020 End: 03-07-2023 Assertion Unknown if ever smoked [facility] Work Phone: Start: 06-26-2021 End: 05-07-2024 Tobacco smoking status NHIS Ex-smoker [facility] Start: 06-26-2021 End: 05-07-2024 Tobacco use and exposure Smokeless tobacco non-user [facility] Start: 11-27-2021 End: 01-21-2025 Alcohol intake Current drinker of alcohol (finding) [facility] Start: 06-26-2021 End: 05-29-2022 Tobacco Comment Quit long time ago [facility] Start: 1955 Sex Assigned At Not on file [facility] Start: 10-12-2020 End: 05-29-2022 Exposure to SARS-CoV-2 (event) Not sure [facility] Work Phone: Start: 09-16-1978 End: 09-16-1983 History of tobacco use Current smoker [facility] Start: 05-27-2020 Non-smoker [facility] Start: 1955 Sex Assigned At Female [facility] Start: 03-05-2023 End: 03-30-2024 History of Social function [facility] Start: 03-05-2023 End: 03-30-2024 Tobacco use panel [facility] Start: 04-11-2015 National Score (1-100), lower number is lower risk 66 [facility] Start: 09-16-1978 End: 09-16-1983 History of tobacco use Cigarette Smoker [facility] Has the electric, gas, oil, or water company threatened to shut off services in your home in past 12Mo No [facility] Are you now , , , , never or living with a partner? [facility] Do you feel stress - tense, restless, nervous, or anxious, or unable to sleep at night because your mind is troubled all the time - these days [OSQ] Very much [facility] Start: 04-21-2024 Gender identity Identifies as female gender (finding) [facility] Start: 04-21-2024 Sexual orientation Heterosexual (fin ding) [facility] How often to you hav e a drink containing alcohol? Never [facility] Start: 10-28-2017 Tobacco smoking status NHIS Never smoked tobacco [facility] Start: 03-11-2025 End: 05-19-2025 Alcoholic beverage intake Lifetime non-drinker (finding) [facility] NEGATED: Highlighted row Not [facility] Medical Equipment Procedure Code Equipment Code Equipment Origin al Text Equipment Identifier Dates EGD, with monitored anesthesia care Oesophageal endoscopic ligator, single-useHaemorrho id ligator [id number] [facility] Start: 02-11-2025 Colonoscopy Ligation clip, metallic [id number] [facility] Start: 03-09-2024 Test blood sugar (s) 1 times daily. Dx: Type 2 DM - Uncontrolled E11.65 Insulin: No [id number] Start: 11-07-2015 End: 09-26-2021 Comment on above: Test blood sugar(s) 1 times daily. Dx: Type 2 DM - Uncontrolled E11.65 Insulin: No Goals Date Patient Goal Desired Activity /State Functional Status Date Assessment Result Facility 02-12-2025 Functional status Bedrest [facility] Work Phone: 02-11-2025 Functional status Tolerates Activity Well [facility] Work Phone: 11-10-2024 Functional status Bathroom Privilege [facility] Work Phone: 05-26-2024 Total score [AUDIT-C] 0 05/26/20 24 12:06 PM EDT Moraima Sullivan MA [place] [facility] Mental Status Date Assessment Result Facility 02-12-2025 Cognitive function Voice/Name [facility] Work Phone: 11-10-2024 Cognitive function Voice/Name [facility] Work Phone: Clinical Notes 03-10-2019 to 05-20-2025 Telephone Encounter - Heaven Saunders MA - 05/20/2025 4:54 PM EDTTelephone Encounter - Heaven Saunders MA - 05/20/2025 4:54 PM EDTSKey sherman APRN.ASSOCIATE SOFTWARE APPLICATION ENGINEER - 05/19/2025 11:51 AM EDT Note Date & Type Note Facility 05-20-2025 Telephone encounter Note Pt notified. Heaven Saunders MA [facility] 05-20-2025 Miscellaneous Notes Pt notified. Heaven Saunders MA Please contact patient let her know urine culture reveals no UTI. Please follow-up with PCP for persistent symptoms and to ensure resolution of blood in the urine documented in this encounter [facility] 05-20-2025 Telephone encounter Note Please contact patient let her know urine culture reveals no UTI. Please follow-up with PCP for persistent symptoms and to ensure resolution of blood in the urine [facility] Work Phone: 05-19-2025 Note [place] 05-19-2025 History of Present illness Narrative [facility] Aryan Meneses is a 70 year old female. Patient presents with: Urinary Problem: Burning with urination, pressure x 1 week HPI The patient is a 70-year-old female with a history of cirrhosis and nephrectomy, presenting with dysuria. Dysuria: - Dysuria x1 week. - Denies fever, back pain, vaginal irritation, or discharge. - Denies pelvic pressure. - Last UTI was 3-4 years ago; does not get them frequently. - Has taken Bactrim in the past. 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 Review of Systems Constitutional: (-) fever Genitourinary: (+) dysuria, (-) pelvic pressure, (-) vaginal irritation, (-) vaginal discharge Musculoskeletal: (-) back pain PAST MEDICAL HISTORY Diagnosis Date Albuminuria 08/2015 Depression Diverticulitis Esophageal varices (HCC) Headaches Hemorrhoid History of nephrectomy right Hypertension Hypothyroidism IBS (irritable bowel syndrome) Iron deficiency anemia secondary to inadequate dietary iron intake 05/07/2023 Iron malabsorption (HCC) 05/07/2023 Lung nodules JENN (obstructive sleep apnea) Osteopenia 08/2023 Portal hypertension (HCC) Rectal bleed SOB (shortness of breath) Splenomegaly Type 2 diabetes, uncontrolled, with renal manifestation PAST SURGICAL HISTORY Procedure Laterality Date ASPIRATION BIOPSY, THYROID GLAND Right 07/15/2017 Dr. Larkin COLONOSCOPY SCREENING 02/22/2023 EGD W/O [facility] SPEC VARICIES INJ 02/22/2023 HYSTERECTOMY HX 1993 Total PAST SURGICAL HISTORY OF 1974 right kidney removed THYROIDECTOMY SUBTOTAL/PARTIAL 1991 ALLERGIES Mold, Adhesive Tape (Rosins), Januvia [Sitagliptin], and Latex MEDICATIONS zolpidem (AMBIEN) 10 mg^Take 1 tablet by mouth at bedtime as needed (insomnia) for up to 30 days.^Disp: 30 tablet^Rfl: 2 dulaglutide (TRULICITY) 0.75 mg/0.5 mL pen injector^Inject 0.75 mg subcutaneously one time a week. Dx: Type 2 diabetes uncontrolled, Inject dose once per week. Discard Pen After^Disp: 12 each^Rfl: 1 furosemide (LASIX) 40 mg tablet^Take 1 tablet by mouth once daily.^Disp: 90 tablet^Rfl: 1 DULoxetine (CYMBALTA) 60 mg capsule^Take 1 capsule by mouth once daily.^Disp: 90 capsule^Rfl: 3 propranolol (INDERAL) 10 mg tablet^Take 1 tablet by mouth three times a day.^Disp: 270 tablet^Rfl: 1 famotidine (PEPCID) 40 mg tablet^Take 40 mg by mouth daily at bedtime.^Disp: ^Rfl: fexofenadine (JEZ) 180 mg tablet^Take 180 mg by mouth once daily.^Disp: ^Rfl: PREVALITE 4 gram powder in packet^Take 4 g by mouth once daily.^Disp: ^Rfl: spironolactone (ALDACTONE) 50 mg tablet^Take 50 mg by mouth two times a day.^Disp: ^Rfl: methocarbamol (ROBAXIN) 500 mg tablet^Take 1 tablet by mouth three times a day as needed.^Disp: 35 tablet^Rfl: 0 ergocalciferol 50,000 unit capsule (VITAMIN D2, DRISDOL)^Take 1 capsule by mouth one time a week.^Disp: 12 capsule^Rfl: 3 albuterol HFA (VENTOLIN HFA) 90 mcg/actuation inhaler^Inhale 2 Puffs as instructed every 4 hours as needed for wheezing/shortness of breath.^Disp: 36 g^Rfl: 1 SYNTHROID 137 mcg tablet^Take 1 tablet by mouth once daily. In the morning^Disp: 90 tablet^Rfl: 3 midodrine (PROAMITINE) 5 mg tablet^Take 5 mg by mouth three times a day.^Disp: ^Rfl: enteric contrast (will be provided with radiology test)^For CT ABD/PEL W IVCON Routine order Administer, As Directed One Time Only, via Oral, Rectal, both Oral and Rectal, Enteric Tube, Stoma or Indwelling Catheter, Enteric Contrast as designated per enteric contrast guidelines^Disp: 1 Each^Rfl: 0 iv contrast (will be provided with radiology test)^CT Chest ABD/PEL-Inject, intravenously, once for 1 dose.No IV access, insert saline lock prior to the beginning of sedation, infusion, injection of imaging exam. Discontinue saline lock post exam. If Pt. has a central line or IVAD, may access for administration according to line specific nursing protocol. Once exam is complete flush line and de-access according to line specific nursing protocol in the CT contrast administration guidelines link.^Disp: 1 Each^Rfl: 0 enteric contrast (will be provided with radiology test)^For CT CHESTABD/PEL W IVCON Routine order Administer, As Directed One Time Only, via Oral, Rectal, both Oral and Rectal, Enteric Tube, Stoma or Indwelling Catheter, Enteric Contrast as designated per enteric contrast guidelines^Disp: 1 Each^Rfl: 0 buPROPion (WELLBUTRIN) 100 mg tablet^Take 2 tablets to total 200 mg in the morning and 1 tablet in the evening, total of 300 mg a day^Disp: 270 tablet^Rfl: 3 Blood-Glucose Meter,Continuous (FREESTYLE THEE 3 READER) [facility]^Use to check blood sugar at least four (4) times daily.^Disp: 1 Each^Rfl: 0 Blood-Glucose Sensor (FREESTYLE THEE 3 SENSOR) [place]^Apply new sensor every fourteen (14) days to upper arm.^Disp: 6 Each^Rfl: 4 Lancets lancets^Test blood sugar(s) 1 times daily. Dx: Type 2 DM - Uncontrolled E11.65 Insulin: No^Disp: 100 Each^Rfl: 11 blood sugar diagnostic (BLOOD GLUCOSE TEST) test strip^Test blood sugar(s) 1 times daily. Dx: Type 2 DM - Uncontrolled E11.65 Insulin: No^Disp: 50 Strip^Rfl: 11 sulfamethoxazole-trimethoprim (BACTRIM DS) 800-160 mg per tablet^Take 1 tablet by mouth two times a day for 7 days.^Disp: 14 tablet^Rfl: 0 Ferrous Gluconate (FERGON) 324 mg (38 mg iron) tablet^324 mg.^Disp: ^Rfl: (Patient not taking: Reported on 04/20/2025) oxyCODONE IR (ROXICODONE) 5 mg immediate release tablet^Take 5 mg by mouth every 8 hours as needed for pain (pt states she cuts tablet in half).^Disp: ^Rfl: (Patient not taking: Reported on 01/21/2025) iv contrast (will be provided with radiology test)^CT ABD/PEL -Inject, intravenously, once for 1 dose.No IV access, insert saline lock prior to the beginning of sedation, infusion, injection of imaging exam. Discontinue saline lock post exam. If Pt. has a central line or IVAD, may access for administration according to line specific nursing protocol. Once exam is complete flush line and de-access according to line specific nursing protocol in the CT contrast administration guidelines link.^Disp: 1 Each^Rfl: 0 FAMILY HISTORY Problem Relation Age of Onset Osteoporosis Mother other (Hepatitis C) Mother Colon Cancer Father other (myasthenia gravis) Father Aneurysm Father Osteoporosis Sister No Known Problems Brother No Known Problems Brother Aneurysm Brother Cancer Brother bladder other (atrial fib) Brother COPD Brother No Known Problems Maternal Grandmother Stroke Maternal Grandfather SOCIAL HISTORY[1] Objective BP 118/58 Pulse 83 Temp (!) 35.9 C (96.7 F) Resp 20 Wt 80.6 kg (177 lb 11.1 oz) SpO2 98% BMI 31.48 kg/m Physical Exam Constitutional: General: She is not in acute distress. Appearance: Normal appearance. She is normal weight. She is not ill-appearing or toxic-appearing. Cardiovascular: Rate and Rhythm: Normal rate and regular rhythm. Pulses: Normal pulses. Heart sounds: Normal heart sounds. Pulmonary: Effort: Pulmonary effort is normal. Breath sounds: Normal breath sounds. Abdominal: General: Bowel sounds are normal. There is no distension. Palpations: There is no mass. Tenderness: There is no abdominal tenderness. There is no right CVA tenderness, left CVA tenderness, guarding or rebound. Hernia: No hernia is present. Neurological: Mental Status: She is alert. { 1. Burning with urination (R30.0) 2. Acute cystitis with hematuria (N30.01) - Urinalysis positive for blood, protein, leukocytes, and nitrites, consistent with UTI. - Start Bactrim; patient has previously taken Bactrim for UTI approximately 3 years ago. - Urine culture sent; will adjust antibiotics if necessary based on culture results. - Advised to increase fluid intake. - No signs of pyelonephritis, acute surgical abdomen, or vaginitis. - Discussed with staff if develop fever, back pain, abdominal pain, or unable to tolerate fluids to seek emergency care. Patient verba;lizadrienne understanding. Discharged home. and Recording using ambient AI software for draft documentation of the visit was discussed with the patient/authorized sales representative metals; all questions welcomed and answered. Patient/authorized sales representative metals agreed to proceed Differential Diagnoses - UTI is more likely for the following reason(s): suggested by H&P - Pyelonephritis is less likely for the following reason(s): H&P not suggestive - Acute surgical abdomen, PID, vaginitis is less likely for the following reason(s): H&P not suggestive Disposition The patient was discharged. [1] Social History Tobacco Use Smoking status: Former Current packs/day: 0.00 Average packs/day: 0.3 packs/day for 5.0 years (1.3 ttl pk-yrs) Types: Cigarettes Start date: 1978 Quit date: 1983 Years since quittin.7 Smokeless tobacco: Never Vaping Use Vaping status: Never Used Substance Use Topics Alcohol use: Never Comment: Occasionally Drug use: No documented in this encounter [facility] 05-13-2025 Telephone encounter Note Pt reports she thinks she has UTI and asking if she can collect a urine sample at home and bring to lab. Advised patient she would need appt for provider to place order. Pt reports she is having burning with urination, frequency with urination for 2 or 3 days. Pt declined same day appt with pcp office, states she will go to for evaluation. [facility] 05-13-2025 Miscellaneous Notes Pt reports she thinks she has UTI and asking if she can collect a urine sample at home and bring to lab. Advised patient she would need appt for provider to place order. Pt reports she is having burning with urination, frequency with urination for 2 or 3 days. Pt declined same day appt with pcp office, states she will go to for evaluation. documented in this encounter [facility] 05-05-2025 Telephone encounter Note Pt is already scheduled. Sandy Wallace [facility] 05-05-2025 Miscellaneous Notes Pt is already scheduled. Sandy Wallace Yes she is to have CBC/ iron studies 1 week before appt. Monae Lock LPN Patient called asking if she is to have labs completed prior to scheduled June appointment. She states she use to come in more often. Please advise. documented in this encounter [facility] 05-05-2025 Telephone encounter Note Yes she is to have CBC/ iron studies 1 week before appt. Monae Lock LPN [facility] 05-05-2025 Telephone encounter Note Patient called asking if she is to have labs completed prior to scheduled June appointment. She states she use to come in more often. Please [facility] Work Phone: 04-26-2025 Instructions Kim uW MD - 04/26/2025 2:56 PM EDT Thank you for coming to see me today. It is my pleasure to take care of you. If you have any questions regarding your visit, please don't hesitate to contact us. Whole food plant based diet 80-90% of the time Mediterranean Diet [place] over knives documented in this encounter [facility] 04-26-2025 Note HNO ID: [id number] Author: KIM WU MD Service: ? Author Type: Physician Type: Progress Notes Filed: 04/26/2025 17:45 Note Text: Barbara Meneses is a 70 year old female who is here for reevaluation for abdominal wall hernia. She recently had a CT and an MRI. The MRI showed no obvious nodular or metastatic disease within the abdominal cavity. The nodular site seen on CT scan is most likely felt to be scar tissue from a prior nephrectomy. She does report the abdominal wall hernia which does cause her discomfort at times. She does have cirrhosis with portal venous hypertension. She did have esophageal varices that needed to be banded recently. She also has thrombocytopenia. She was supposed an ultrasound to evaluate her liver but her but states that this was not completed for unclear reasons. ALLERGIES[1] CURRENT MEDICATIONS[2] PHYSICAL EXAM: BP 113/64 Pulse 69 Resp 18 Ht 5' 3 (1.60m) Wt 182 lb (82.6kg) BMI 32.25 kg/(m2). General Appearance: Well appearing, alert, in no acute distress, well-hydrated, well nourished. and Obese. Abdomen: Normal abdominal exam, Abdomen soft, non-tender. Bowel sounds normal. No masses, organomegaly, Positive findings: Reducible right sided abdominal wall hernia. Assessment: Abdominal wall hernia (primary encounter diagnosis) Cirrhosis, nonalcoholic (hcc) Portal venous hypertension (hcc) Thrombocytopenia Portal hypertension with esophageal varices (hcc) Plan: ASSESSMENT/PLAN: 1. Abdominal wall hernia - ICD9: 553.20, ICD10: K43.9 (primary diagnosis) Given her thrombocytopenia, portal venous hypertension and esophageal variceal bleed I am concerned about operating on her. I do believe she will be at higher risk for surgical intervention. I did refer her up to [facility] for second opinion regarding her abdominal wall hernia - CONSULT TO GENERAL SURGERY 2. Cirrhosis, nonalcoholic (HCC) - ICD9: 571.5, ICD10: K74.60 - CONSULT TO GENERAL SURGERY 3. Portal venous hypertension (HCC) - ICD9: 572.3, ICD10: K76.6 4. Thrombocytopenia - ICD9: 287.5, ICD10: D69.6 5. Portal hypertension with esophageal varices (HCC) - ICD9: 572.3, 456.21, ICD10: K76.6, I85.00 Medical Decision Making: Problems: High: Illness/injury w/ threat to life/body function Data: Unique test result(s) reviewed: 1 Risk: Moderate: Moderate risk from testing/treatment Medical Decision Making Level: 4 - Moderate Kim Wu M.D., F.A.C.S. [1] Allergies Allergen Reactions Mold Unknown Adhesive Tape (Yamel* Rash Januvia [Sitaglipti* Intolerance GI upset, aching of muscles, headaches Latex Itching [2] Current Outpatient Medications Medication Sig zolpidem (AMBIEN) 10 mg Take 1 tablet by mouth at bedtime as needed (insomnia) for up to 30 days. dulaglutide (TRULICITY) 0.75 mg/0.5 mL pen injector Inject 0.75 mg subcutaneously one time a week. Dx: Type 2 diabetes uncontrolled, Inject dose once per week. Discard Pen After furosemide (LASIX) 40 mg tablet Take 1 tablet by mouth once daily. DULoxetine (CYMBALTA) 60 mg capsule Take 1 capsule by mouth once daily. propranolol (INDERAL) 10 mg tablet Take 1 tablet by mouth three times a day. famotidine (PEPCID) 40 mg tablet Take 40 mg by mouth daily at bedtime. fexofenadine (JEZ) 180 mg tablet Take 180 mg by mouth once daily. PREVALITE 4 gram powder in packet Take 4 g by mouth once daily. spironolactone (ALDACTONE) 50 mg tablet Take 50 mg by mouth two times a day. methocarbamol (ROBAXIN) 500 mg tablet Take 1 tablet by mouth three times a day as needed. ergocalciferol 50,000 unit capsule (VITAMIN D2, DRISDOL) Take 1 capsule by mouth one time a week. albuterol HFA (VENTOLIN HFA) 90 mcg/actuation inhaler Inhale 2 Puffs as instructed every 4 hours as needed for wheezing/shortness of breath. SYNTHROID 137 mcg tablet Take 1 tablet by mouth once daily. In the morning Ferrous Gluconate (FERGON) 324 mg (38 mg iron) tablet 324 mg. (Patient not taking: Reported on 04/20/2025) midodrine (PROAMITINE) 5 mg tablet Take 5 mg by mouth three times a day. oxyCODONE IR (ROXICODONE) 5 mg immediate release tablet Take 5 mg by mouth every 8 hours as needed for pain (pt states she cuts tablet in half). (Patient not taking: Reported on 01/21/2025) iv contrast (will be provided with radiology test) CT ABD/PEL -Inject, intravenously, once for 1 dose.No IV access, insert saline lock prior to the beginning of sedation, infusion, injection of imaging exam. Discontinue saline lock post exam. If Pt. has a central line or IVAD, may access for administration according to line specific nursing protocol. Once exam is complete flush line and de-access according to line specific nursing protocol in the CT contrast administration guidelines link. enteric contrast (will be provided with radiology test) For CT ABD/PEL W IVCON Routine order Administer, As Directed One Time Only, via Oral, Rectal, both Oral (more content not included)... [facility] 04-26-2025 History of Present illness Narrative Barbara Meneses is a 70 year old female who is here for reevaluation for abdominal wall hernia. She recently had a CT and an MRI. The MRI showed no obvious nodular or metastatic disease within the abdominal cavity. The nodular site seen on CT scan is most likely felt to be scar tissue from a prior nephrectomy. She does report the abdominal wall hernia which does cause her discomfort at times. She does have cirrhosis with portal venous hypertension. She did have esophageal varices that needed to be banded recently. She also has thrombocytopenia. She was supposed an ultrasound to evaluate her liver but her but states that this was not completed for unclear reasons. ALLERGIES[1] CURRENT MEDICATIONS[2] PHYSICAL EXAM: BP 113/64 Pulse 69 Resp 18 Ht 5' 3 (1.60m) Wt 182 lb (82.6kg) BMI 32.25 kg/(m^2). General Appearance: Well appearing, alert, in no acute distress, well-hydrated, well nourished. and Obese. Abdomen: Normal abdominal exam, Abdomen soft, non-tender. Bowel sounds normal. No masses, organomegaly, Positive findings: Reducible right sided abdominal wall hernia. Assessment: Abdominal wall hernia (primary encounter diagnosis) Cirrhosis, nonalcoholic (hcc) Portal venous hypertension (hcc) Thrombocytopenia Portal hypertension with esophageal varices (hcc) Plan: ASSESSMENT/PLAN: 1. Abdominal wall hernia - ICD9: 553.20, ICD10: K43.9 (primary diagnosis) Given her thrombocytopenia, portal venous hypertension and esophageal variceal bleed I am concerned about operating on her. I do believe she will be at higher risk for surgical intervention. I did refer her up to [facility] for second opinion regarding her abdominal wall hernia - CONSULT TO GENERAL SURGERY 2. Cirrhosis, nonalcoholic (HCC) - ICD9: 571.5, ICD10: K74.60 - CONSULT TO GENERAL SURGERY 3. Portal venous hypertension (HCC) - ICD9: 572.3, ICD10: K76.6 4. Thrombocytopenia - ICD9: 287.5, ICD10: D69.6 5. Portal hypertension with esophageal varices (HCC) - ICD9: 572.3, 456.21, ICD10: K76.6, I85.00 Medical Decision Making: Problems: High: Illness/injury w/ threat to life/body function Data: Unique test result(s) reviewed: 1 Risk: Moderate: Moderate risk from testing/treatment Medical Decision Making Level: 4 - Moderate Kim Wu M.D., F.A.C.S. [1] Allergies Allergen Reactions Mold Unknown Adhesive Tape (Yamel* Rash Januvia [Sitaglipti* Intolerance GI upset, aching of muscles, headaches Latex Itching [2] Current Outpatient Medications Medication Sig zolpidem (AMBIEN) 10 mg Take 1 tablet by mouth at bedtime as needed (insomnia) for up to 30 days. dulaglutide (TRULICITY) 0.75 mg/0.5 mL pen injector Inject 0.75 mg subcutaneously one time a week. Dx: Type 2 diabetes uncontrolled, Inject dose once per week. Discard Pen After furosemide (LASIX) 40 mg tablet Take 1 tablet by mouth once daily. DULoxetine (CYMBALTA) 60 mg capsule Take 1 capsule by mouth once daily. propranolol (INDERAL) 10 mg tablet Take 1 tablet by mouth three times a day. famotidine (PEPCID) 40 mg tablet Take 40 mg by mouth daily at bedtime. fexofenadine (JEZ) 180 mg tablet Take 180 mg by mouth once daily. PREVALITE 4 gram powder in packet Take 4 g by mouth once daily. spironolactone (ALDACTONE) 50 mg tablet Take 50 mg by mouth two times a day. methocarbamol (ROBAXIN) 500 mg tablet Take 1 tablet by mouth three times a day as needed. ergocalciferol 50,000 unit capsule (VITAMIN D2, DRISDOL) Take 1 capsule by mouth one time a week. albuterol HFA (VENTOLIN HFA) 90 mcg/actuation inhaler Inhale 2 Puffs as instructed every 4 hours as needed for wheezing/shortness of breath. SYNTHROID 137 mcg tablet Take 1 tablet by mouth once daily. In the morning Ferrous Gluconate (FERGON) 324 mg (38 mg iron) tablet 324 mg. (Patient not taking: Reported on 04/20/2025) midodrine (PROAMITINE) 5 mg tablet Take 5 mg by mouth three times a day. oxyCODONE IR (ROXICODONE) 5 mg immediate release tablet Take 5 mg by mouth every 8 hours as needed for pain (pt states she cuts tablet in half). (Patient not taking: Reported on 01/21/2025) iv contrast (will be provided with radiology test) CT ABD/PEL -Inject, intravenously, once for 1 dose.No IV access, insert saline lock prior to the beginning of sedation, infusion, injection of imaging exam. Discontinue saline lock post exam. If Pt. has a central line or IVAD, may access for administration according to line specific nursing protocol. Once exam is complete flush line and de-access according to line specific nursing protocol in the CT contrast administration guidelines link. enteric contrast (will be provided with radiology test) For CT ABD/PEL W IVCON Routine order Administer, As Directed One Time Only, via Oral, Rectal, both Oral and Rectal, Enteric Tube, Stoma or Indwelling Catheter, Enteric Contrast as designated per enteric contrast guidelines iv contrast (will be provided with radiology test) CT Chest ABD/PEL-Inject, intravenously, once for 1 dose.No IV access, insert saline lock prior to the beginning of sedation, infusion, injection of imaging exam. Discontinue saline lock post exam. If Pt. has a central line or IVAD, may access for administration according to line specific nursing protocol. Once exam is complete flush line and de-access according to line specific nursing protocol in the CT contrast administration guidelines link. enteric contrast (will be provided with radiology test) For CT CHESTABD/PEL W IVCON Routine order Administer, As Directed One Time Only, via Oral, Rectal, both Oral and Rectal, Enteric Tube, Stoma or Indwelling Catheter, Enteric Contrast as designated per enteric contrast guidelines buPROPion (WELLBUTRIN) 100 mg tablet Take 2 tablets to total 200 mg in the morning and 1 tablet in the evening, total of 300 mg a day Blood-Glucose Meter,Continuous (FREESTYLE THEE 3 READER) misc Use to check blood sugar at least four (4) times daily. Blood-Glucose Sensor (FREESTYLE THEE 3 SENSOR) louis Apply new sensor every fourteen (14) days to upper arm. Lancets lancets Test blood sugar(s) 1 times daily. Dx: Type 2 DM - Uncontrolled E11.65 Insulin: No blood sugar diagnostic (BLOOD GLUCOSE TEST) test strip Test blood sugar(s) 1 times daily. Dx: Type 2 DM - Uncontrolled E11.65 Insulin: No Current Facility-Administered Medications Medication Dose Route Frequency cyanocobalamin 1,000 mcg injection 1,000 mcg INTRAMUSCULAR q 4 WEEKS documented in this encounter [facility] 04-20-2025 Note [place] 04-14-2025 Telephone encounter Note D-Mannose 500 mg daily. Pt. informed VM left. [facility] 04-14-2025 Miscellaneous Notes D-Mannose 500 mg daily. Pt. informed VM left. documented in this encounter [facility] 04-14-2025 Note [place] 04-14-2025 History of Present illness Narrative CC: Barbara Meneses is a 70 year old female who presents to the office to establish care. HPI: Liver disease/non alcoholic cirrhosis, esophageal varices and splenomegaly. She had varicocele bleeding in esophagus, this was determined in January, had cauterization and banding of esophagus by Dr. Zimmer Application Services Manager. Had to have 4 units of PRBC due to the amount of bleeding prior to his procedure. The Application Services Manager said she may need to have a liver transplant in the future. She knows has to limit her NSAIDs and tylenol Had IV iron infusions and has a follow up with Director [employer]er Services on Saturday Has iron labs and CMP ordered but has to get this completed Type 2 diabetes, has been controlled Has appt with General surgeon Dr. Wu for evaluation for hernia repair. She knows that she is not able to take the tylenol and NSAIDs Has abdominal pain due to these hemorrhoids Hemorrhoids, is going to discuss with the surgeon the options that she has for treatment. They bother her intermittently PAST MEDICAL HISTORY Diagnosis Date Albuminuria 08/2015 Depression Diverticulitis Esophageal varices (HCC) Headaches Hemorrhoid History of nephrectomy right Hypertension Hypothyroidism IBS (irritable bowel syndrome) Iron deficiency anemia secondary to inadequate dietary iron intake 05/07/2023 Iron malabsorption (HCC) 05/07/2023 Lung nodules JENN (obstructive sleep apnea) Osteopenia 08/2023 Portal hypertension (HCC) Rectal bleed SOB (shortness of breath) Splenomegaly Type 2 diabetes, uncontrolled, with renal manifestation PAST SURGICAL HISTORY Procedure Laterality Date ASPIRATION BIOPSY, THYROID GLAND Right 07/15/2017 Dr. Larkin COLONOSCOPY SCREENING 02/22/2023 EGD W/O BRSH SPEC VARICIES INJ 02/22/2023 HYSTERECTOMY HX 1993 Total PAST SURGICAL HISTORY OF 1974 right kidney removed THYROIDECTOMY SUBTOTAL/PARTIAL 1991 Social History: Social History Tobacco Use Smoking status: Former Current packs/day: 0.00 Average packs/day: 0.3 packs/day for 5.0 years (1.3 ttl pk-yrs) Types: Cigarettes Start date: 1978 Quit date: 1983 Years since quittin.6 Smokeless tobacco: Never Vaping Use Vaping status: Never Used Substance Use Topics Alcohol use: Never Comment: Occasionally Drug use: No FAMILY HISTORY Problem Relation Age of Onset Osteoporosis Mother other (Hepatitis C) Mother Colon Cancer Father other (myasthenia gravis) Father Aneurysm Father Osteoporosis Sister No Known Problems Brother No Known Problems Brother Aneurysm Brother Cancer Brother bladder other (atrial fib) Brother COPD Brother No Known Problems Maternal Grandmother Stroke Maternal Grandfather Current Outpatient prescriptions: zolpidem (AMBIEN) 10 mg^Take 1 tablet by mouth at bedtime as needed (insomnia) for up to 30 days.^Disp: 30 tablet^Rfl: 2 dulaglutide (TRULICITY) 0.75 mg/0.5 mL pen injector^Inject 0.75 mg subcutaneously one time a week. Dx: Type 2 diabetes uncontrolled, Inject dose once per week. Discard Pen After^Disp: 12 each^Rfl: 1 furosemide (LASIX) 40 mg tablet^Take 1 tablet by mouth once daily.^Disp: 90 tablet^Rfl: 1 DULoxetine (CYMBALTA) 60 mg capsule^Take 1 capsule by mouth once daily.^Disp: 90 capsule^Rfl: 3 propranolol (INDERAL) 10 mg tablet^Take 1 tablet by mouth three times a day.^Disp: 270 tablet^Rfl: 1 famotidine (PEPCID) 40 mg tablet^Take 40 mg by mouth daily at bedtime.^Disp: ^Rfl: fexofenadine (JEZ) 180 mg tablet^Take 180 mg by mouth once daily.^Disp: ^Rfl: PREVALITE 4 gram powder in packet^Take 4 g by mouth once daily.^Disp: ^Rfl: spironolactone (ALDACTONE) 50 mg tablet^Take 50 mg by mouth two times a day.^Disp: ^Rfl: methocarbamol (ROBAXIN) 500 mg tablet^Take 1 tablet by mouth three times a day as needed.^Disp: 35 tablet^Rfl: 0 ergocalciferol 50,000 unit capsule (VITAMIN D2, DRISDOL)^Take 1 capsule by mouth one time a week.^Disp: 12 capsule^Rfl: 3 albuterol HFA (VENTOLIN HFA) 90 mcg/actuation inhaler^Inhale 2 Puffs as instructed every 4 hours as needed for wheezing/shortness of breath.^Disp: 36 g^Rfl: 1 SYNTHROID 137 mcg tablet^Take 1 tablet by mouth once daily. In the morning^Disp: 90 tablet^Rfl: 3 Ferrous Gluconate (FERGON) 324 mg (38 mg iron) tablet^324 mg.^Disp: ^Rfl: midodrine (PROAMITINE) 5 mg tablet^Take 5 mg by mouth three times a day.^Disp: ^Rfl: oxyCODONE IR (ROXICODONE) 5 mg immediate release tablet^Take 5 mg by mouth every 8 hours as needed for pain (pt states she cuts tablet in half).^Disp: ^Rfl: (Patient not taking: Reported on 01/21/2025) iv contrast (will be provided with radiology test)^CT ABD/PEL -Inject, intravenously, once for 1 dose.No IV access, insert saline lock prior to the beginning of sedation, infusion, injection of imaging exam. Discontinue saline lock post exam. If Pt. has a central line or IVAD, may access for administration according to line specific nursing protocol. Once exam is complete flush line and de-access according to line specific nursing protocol in the CT contrast administration guidelines link.^Disp: 1 Each^Rfl: 0 enteric contrast (will be provided with radiology test)^For CT ABD/PEL W IVCON Routine order Administer, As Directed One Time Only, via Oral, Rectal, both Oral and Rectal, Enteric Tube, Stoma or Indwelling Catheter, Enteric Contrast as designated per enteric contrast guidelines^Disp: 1 Each^Rfl: 0 iv contrast (will be provided with radiology test)^CT Chest ABD/PEL-Inject, intravenously, once for 1 dose.No IV access, insert saline lock prior to the beginning of sedation, infusion, injection of imaging exam. Discontinue saline lock post exam. If Pt. has a central line or IVAD, may access for administration according to line specific nursing protocol. Once exam is complete flush line and de-access according to line specific nursing protocol in the CT contrast administration guidelines link.^Disp: 1 Each^Rfl: 0 enteric contrast (will be provided with radiology test)^For CT CHESTABD/PEL W IVCON Routine order Administer, As Directed One Time Only, via Oral, Rectal, both Oral and Rectal, Enteric Tube, Stoma or Indwelling Catheter, Enteric Contrast as designated per enteric contrast guidelines^Disp: 1 Each^Rfl: 0 buPROPion (WELLBUTRIN) 100 mg tablet^Take 2 tablets to total 200 mg in the morning and 1 tablet in the evening, total of 300 mg a day^Disp: 270 tablet^Rfl: 3 Blood-Glucose Meter,Continuous (FREESTYLE THEE 3 READER) misc^Use to check blood sugar at least four (4) times daily.^Disp: 1 Each^Rfl: 0 Blood-Glucose Sensor (FREESTYLE THEE 3 SENSOR) louis^Apply new sensor every fourteen (14) days to upper arm.^Disp: 6 Each^Rfl: 4 Lancets lancets^Test blood sugar(s) 1 times daily. Dx: Type 2 DM - Uncontrolled E11.65 Insulin: No^Disp: 100 Each^Rfl: 11 blood sugar diagnostic (BLOOD GLUCOSE TEST) test strip^Test blood sugar(s) 1 times daily. Dx: Type 2 DM - Uncontrolled Insulin: No^Disp: 50 Strip^Rfl: 11 Allergies: ALLERGIES Allergen Reactions Mold Unknown Adhesive Tape (Yamel* Rash Januvia [Sitaglipti* Intolerance GI upset, aching of muscles, headaches Latex Itching ROS: See HPI PE: 04/14/25 1555 BP: 100/60 Pulse: 94 Temp: (!) 35.9 C (96.7 F) TempSrc: Right Tympanic SpO2: 98% Weight: 80.7 kg (178 lb) Gen: A&O, NAD, non-toxic appearing, Pleasant, cooperative HEENT: NT/AC, PERRLA, wearing glasses, EOMs intact b/l, nares clear and patent b/l, pharynx without erythema, exudate or lesions. Uvula midline. MMM, EACs without erythema or debris. TMs pearly land with intact landmarks b/l. Neck: supple, No cervical LAD, no thyromegaly, no carotid bruits CV: RRR, normal S1 and S2, no murmurs, no gallops, no rubs, Pulses 2+ and symmetric in UE and LE b/l Lungs: normal respiratory effort, CTA b/l, no wheezing or rhonchi or rales Abd: soft, NT, ND, +BS, difficulty with assessment for liver and spleen assessment MS: gait is stable Neuro: CN II-XII intact b/l, strength 5/5 b/l UE and LE, DTRs 2/4 UE and LE, sensation intact. Skin: warm, dry, intact, No rashes or lesions on exposed skin. No edema, normal peripheral pulses ASSESSMENT/PLAN: 1. Uncontrolled type 2 diabetes mellitus with hyperglycemia (HCC) - ICD9: 250.02, ICD10: E11.65 (primary diagnosis) - Uncontrolled - Improving control - Continue current medications - Blood glucose monitoring on a continuous glucose monitoring schedule - Counseled on healthy diet and regular exercise - Discussed need for and benefit of weight loss. BMI 31.53 kg/(m^2) - HEMOGLOBIN A1C - COMPREHENSIVE METABOLIC PANEL - PARKING FOR HANDICAPPED 2. Situational insomnia - ICD9: 307.41, ICD10: F51.09 rx refilled stable - ZOLPIDEM 10 MG TABLET 3. Elevated alkaline phosphatase level - ICD9: 790.5, ICD10: R74.8 F/u with Application Services Manager Has non alcoholic cirrhosis and esophageal varices 4. Other iron deficiency anemia - ICD9: 280.8, ICD10: D50.8 F/u with Application Services Manager Has non alcoholic cirrhosis and esophageal varices 5. Vitamin B12 deficiency - ICD9: 266.2, ICD10: E53.8 stable 6. Hypothyroidism, acquired - ICD9: 244.9, ICD10: E03.9 - Instructed patient on importance of taking on an empty stomach either first thing in the morning or at bedtime. 7. Osteopenia, senile - ICD9: 733.90, ICD10: M85.80 - Reviewed the need for Calcium and Vitamin D supplements and weight bearing exercise as tolerated 8. Cirrhosis, nonalcoholic (HCC) - ICD9: 571.5, ICD10: K74.60 F/u with Application Services Manager Has non alcoholic cirrhosis and esophageal varices - PARKING FOR HANDICAPPED 9. Hypertension, essential - ICD9: 401.9, ICD10: I10 - Controlled - Continue current medications - Recommend home blood pressure monitoring, to bring results to next visit - Encouraged sodium restriction, DASH or Mediterranean diet - Recommend regular aerobic exercise - Discussed need for and benefit of weight loss. BMI 31.53 kg/(m^2) 10. Iron deficiency anemia, unspecified iron deficiency anemia type - ICD9: 280.9, ICD10: D50.9 F/u with Application Services Manager Has non alcoholic cirrhosis and esophageal varices 11. Vitamin D deficiency - ICD9: 268.9, ICD10: E55.9 Stable Continue supplement - VITAMIN D 25 HYDROXY Juan Locke DO To ER if develops chest pain, shortness of breath, or severe worsening of symptoms. Discussed risks, benefits, alternatives, and potential side effects of medications. Patient expressed understanding and agreed with the plan. Juan Locke DO [address] [place] [address] documented in this encounter [facility] 03-26-2025 Telephone encounter Note The patient has been identified by name and date of : Yes Caregiver verified no other encounters exist for this prescription request: Yes Caregiver confirmed with patient/requestor that no other refills are due, in the near future, with this provider at this time: Yes The last office visit in the department: 01/21/2025 Does the patient have a future office visit with this provider/department: Yes 04/14/2025 Requested Prescriptions Pending Prescriptions Disp Refills furosemide (LASIX) 40 mg tablet 90 tablet Sig: Take 1 tablet by mouth once daily. DULoxetine (CYMBALTA) 60 mg capsule 90 capsule 3 Sig: Take 1 capsule by mouth once daily. propranolol (INDERAL) 10 mg tablet 270 tablet Sig: Take 1 tablet by mouth three times a day. Patient said the Furosemide and Propanolol were both increased when she was in the hospital some time ago, now needs new rx's She had been [facility] patient now changing to [facility] Mariana Pacheco LPN March 26, 2025 9:45 AM [facility] 03-26-2025 Miscellaneous Notes The patient has been identified by name and date of : Yes Caregiver verified no other encounters exist for this prescription request: Yes Caregiver confirmed with patient/requestor that no other refills are due, in the near future, with this provider at this time: Yes The last office visit in the department: 01/21/2025 Does the patient have a future office visit with this provider/department: Yes 04/14/2025 Requested Prescriptions Pending Prescriptions Disp Refills furosemide (LASIX) 40 mg tablet 90 tablet Sig: Take 1 tablet by mouth once daily. DULoxetine (CYMBALTA) 60 mg capsule 90 capsule 3 Sig: Take 1 capsule by mouth once daily. propranolol (INDERAL) 10 mg tablet 270 tablet Sig: Take 1 tablet by mouth three times a day. Patient said the Furosemide and Propanolol were both increased when she was in the hospital some time ago, now needs new rx's She had been [facility] patient now changing to [facility] Mariana Pacheco LPN March 26, 2025 9:45 AM documented in this encounter [facility] 03-26-2025 Telephone encounter Note The following approved medication requests have been transmitted electronically. Requested Prescriptions Pending Prescriptions Disp Refills dulaglutide (TRULICITY) 0.75 mg/0.5 mL pen injector 12 each 1 Sig: Inject 0.75 mg subcutaneously one time a week. Dx: Type 2 diabetes uncontrolled, Inject dose once per week. Discard Pen After Matteo Romero APRN.CNP [facility] Work Phone: 03-26-2025 Miscellaneous Notes The following approved medication requests have been transmitted electronically. Requested Prescriptions Pending Prescriptions Disp Refills dulaglutide (TRULICITY) 0.75 mg/0.5 mL pen injector 12 each 1 Sig: Inject 0.75 mg subcutaneously one time a week. Dx: Type 2 diabetes uncontrolled, Inject dose once per week. Discard Pen After Matteo Romero APRN.ASSOCIATE SOFTWARE APPLICATION ENGINEER The patient has been identified by name and date of : Yes Caregiver verified no other encounters exist for this prescription request: Yes Caregiver confirmed with patient/requestor that no other refills are due, in the near future, with this provider at this time: Yes The last office visit in the department: 01/21/2025 Does the patient have a future office visit with this provider/department: Yes 04/14/2025 Requested Prescriptions Pending Prescriptions Disp Refills dulaglutide (TRULICITY) 0.75 mg/0.5 mL pen injector 12 each 1 Sig: Inject 0.75 mg subcutaneously one time a week. Dx: Type 2 diabetes uncontrolled, Inject dose once per week. Discard Pen After [facility] did not transfer prescription. Patient needs a new one sent to [facility]. Lynnette Masters RN March 25, 2025 4:29 PM documented in this encounter [facility] 03-25-2025 Telephone encounter Note The patient has been identified by name and date of : Yes Caregiver verified no other encounters exist for this prescription request: Yes Caregiver confirmed with patient/requestor that no other refills are due, in the near future, with this provider at this time: Yes The last office visit in the department: 01/21/2025 Does the patient have a future office visit with this provider/department: Yes 04/14/2025 Requested Prescriptions Pending Prescriptions Disp Refills dulaglutide (TRULICITY) 0.75 mg/0.5 mL pen injector 12 each 1 Sig: Inject 0.75 mg subcutaneously one time a week. Dx: Type 2 diabetes uncontrolled, Inject dose once per week. Discard Pen After [facility] did not transfer prescription. Patient needs a new one sent to [facility]. Lynnette Masters RN March 25, 2025 4:29 PM [facility] 03-12-2025 Telephone encounter Note Can you please get her scheduled for IV iron sucrose 200 mg x5? Thank you! Beata [facility] Work Phone: 03-12-2025 Miscellaneous Notes Can you please get her scheduled for IV iron sucrose 200 mg x5? Thank you! Beata documented in this encounter [facility] 03-11-2025 Note [place] 03-11-2025 History of Present illness Narrative Barbara Meneses 1955 03/11/2025 Hematologic problem(s): 1) WAQAR. 2) Thrombocytopenia. 3) Splenomegaly likely from portal hypertension. Has esophageal varices. HPI: The patient is a 68-year-old female with a past medical history significant for frequent headaches, cervical spine degenerative disease with radiculopathy, hypertension, obstructive sleep apnea, elevated LFTs, diverticulitis, internal hemorrhoids, rectal bleeding, irritable bowel syndrome, type 2 diabetes, hypothyroidism, dyslipidemia, right shoulder subacromial bursitis, generalized anxiety disorder, major depressive disorder with single episode in remission, history of nephrectomy, panic attacks, fatigue and vitamin D deficiency. Started having rectal bleeding about 6 months prior to initial consultation here. Blood every time wipes after BM. Occasional blood in toilet. Formed to loose stools. EGD by Dr. Ben Garcia 02/22/2023. Patient was found to have LA grade a (1 or more mucosal breaks less than 5 mm, not extending between tops of 2 mucosal folds) esophagitis with no bleeding observed 35 cm from the incisors. A mild Schatzki ring was found at the GE junction. 1 column of nonbleeding grade 2 varices were found in the lower third esophagus 33 cm from the incisors. No stigmata of recent bleeding were evident and no red batsheva signs were present. There was diffuse moderately erythematous mucosa without bleeding in the greater curvature of the stomach. Biopsies were obtained. The examined duodenum was normal. Biopsies were obtained. There was a medium size hiatal hernia. Middle third esophagus was normal biopsies were obtained. Colonoscopy performed same day revealed nonthrombosed external hemorrhoids, nonthrombosed internal hemorrhoids and internal hemorrhoids that prolapse with straining but required manual replacement into the anal canal on digital rectal exam. Diverticulosis in the sigmoid and descending colon. One 5 mm polyp in the proximal sigmoid colon that was removed with cold biopsy. Inflamed mucosa in the proximal rectum biopsied. Pathology: A. Duodenum, biopsy: A fragment of duodenal mucosa, no pathologic diagnosis. B. Antrum, biopsy: Mild gastritis. See microscopic description and comment. C. Distal esophagus, biopsy: Fragments of gastroesophageal mucosa with moderate chronic inflammation. Intestinal metaplasia (goblet cell metaplasia) not identified. See comment. D. Greater curvature, biopsy: Minimal gastritis. See microscopic description. E. Mid esophagus, biopsy: A fragment of gastroesophageal mucosa with chronic inflammation. Intestinal metaplasia (goblet cell metaplasia) not identified. See comment. F. Colon, random biopsy: Fragments of colonic mucosa, no pathologic diagnosis. G. Proximal sigmoid polyp, biopsy: Hyperplastic polyp. H. Rectal inflammation, biopsy: A fragment of colonic mucosa with focal ulceration and acute inflammation. GERD--omeprazole, a long, long time. On oral iron 4-6 months. Tolerates well. 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 No children. Two miscarriages. Used to have menorrhagia. Diagnosed with endometriosis and had hysterectomy at about age 29. Previous right nephrectomy. Congenital atrophy. Previous ultrasound liver and spleen demonstrated the liver had a coarse echotexture with increased echogenicity and a smooth surface contour with no lesions. Splenomegaly with spleen measuring 14.2 cm. There was a splenic calcification measuring 9 x 6 x 9 mm. No other focal lesion. States she was diagnosed with celiac, was told to start gluten free diet about a year ago. Presents for ongoing hematologic management. Interim history: Ms. Meneses presents today for follow up of WAQAR with her sister. Admission to [facility] for acute GI bleed 02/09/25 Hgb 5.2 received 4 units of blood during recent admission. She notices darker stools about 4 days prior to admission. Mild fatigue. States she is rarely symptomatic 2/2 anemia until she passes out. Recent MRI 01/2025 no signs of mesenteric mass. Taking PPI [address] Zimmer performed EGD Grade III varices were found in the middle third of the esophagus and in the lower third of the esophagus. They were 20 mm in largest diameter. Severe portal hypertensive gastropathy was found in the entire examined stomach. Coagulation for hemostasis using heater probe was successful. Estimated blood loss was minimal. Three 5 mm angiodysplastic lesions with bleeding were found in the second portion of the duodenum and in the third portion of the duodenum. Impression: - Grade III esophageal varices. - Portal hypertensive gastropathy. Treated with a heater probe. - Three bleeding angiodysplastic lesions in the duodenum. - No specimens collected. - Grade III esophageal varices. Incompletely eradicated. Banded. Still having diarrhea but no longer black DUMAS this morning - no Shortness of Breath, CP, no palpitations. No dizziness. Fatigued. All do is sleep. No overt bleeding aside from hemorrhoids BRBPR with wiping. PAST MEDICAL HISTORY Diagnosis Date Albuminuria 08/2015 Depression Diverticulitis Esophageal varices (HCC) Headaches Hemorrhoid History of nephrectomy right Hypertension Hypothyroidism IBS (irritable bowel syndrome) Iron deficiency anemia secondary to inadequate dietary iron intake 05/07/2023 Iron malabsorption (HCC) 05/07/2023 Lung nodules JENN (obstructive sleep apnea) Osteopenia 08/2023 Portal hypertension (HCC) Rectal bleed SOB (shortness of breath) Splenomegaly Type 2 diabetes, uncontrolled, with renal manifestation PAST SURGICAL HISTORY Procedure Laterality Date ASPIRATION BIOPSY, THYROID GLAND Right 07/15/2017 Dr. Larkin COLONOSCOPY SCREENING 02/22/2023 EGD W/O BRSH SPEC VARICIES INJ 02/22/2023 HYSTERECTOMY HX 1993 Total PAST SURGICAL HISTORY OF 1974 right kidney removed THYROIDECTOMY SUBTOTAL/PARTIAL 1991 ALLERGIES Allergen Reactions Mold Unknown Adhesive Tape (Yamel* Rash Januvia [Sitaglipti* Intolerance GI upset, aching of muscles, headaches Latex Itching Current Outpatient Medications Medication Sig methocarbamol (ROBAXIN) 500 mg tablet Take 1 tablet by mouth three times a day as needed. dulaglutide (TRULICITY) 0.75 mg/0.5 mL pen injector Inject 0.75 mg subcutaneously one time a week. Dx: Type 2 diabetes uncontrolled, Inject dose once per week. Discard Pen After ergocalciferol 50,000 unit capsule (VITAMIN D2, DRISDOL) Take 1 capsule by mouth one time a week. DULoxetine (CYMBALTA) 60 mg capsule take 1 capsule by mouth once daily furosemide (LASIX) 40 mg tablet Take 1 tablet by mouth once daily. albuterol HFA (VENTOLIN HFA) 90 mcg/actuation inhaler Inhale 2 Puffs as instructed every 4 hours as needed for wheezing/shortness of breath. SYNTHROID 137 mcg tablet Take 1 tablet by mouth once daily. In the morning Ferrous Gluconate (FERGON) 324 mg (38 mg iron) tablet 324 mg. midodrine (PROAMITINE) 5 mg tablet Take 5 mg by mouth three times a day. zolpidem (AMBIEN) 10 mg Take 1 tablet by mouth at bedtime as needed (insomnia) for up to 30 days. buPROPion (WELLBUTRIN) 100 mg tablet Take 2 tablets to total 200 mg in the morning and 1 tablet in the evening, total of 300 mg a day Blood-Glucose Meter,Continuous (FREESTYLE THEE 3 READER) [facility] [place] Use to check blood sugar at least four (4) times daily. Blood-Glucose Sensor (FREESTYLE THEE 3 SENSOR) [place] Apply new sensor every fourteen (14) days to upper arm. Lancets lancets Test blood sugar(s) 1 times daily. Dx: Type 2 DM - Uncontrolled E11.65 Insulin: No blood sugar diagnostic (BLOOD GLUCOSE TEST) test strip Test blood sugar(s) 1 times daily. Dx: Type 2 DM - Uncontrolled E11.65 Insulin: No oxyCODONE IR (ROXICODONE) 5 mg immediate release tablet Take 5 mg by mouth every 8 hours as needed for pain (pt states she cuts tablet in half). (Patient not taking: Reported on 01/21/2025) iv contrast (will be provided with radiology test) CT ABD/PEL -Inject, intravenously, once for 1 dose.No IV access, insert saline lock prior to the beginning of sedation, infusion, injection of imaging exam. Discontinue saline lock post exam. If Pt. has a central line or IVAD, may access for administration according to line specific nursing protocol. Once exam is complete flush line and de-access according to line specific nursing protocol in the CT contrast administration guidelines link. enteric contrast (will be provided with radiology test) For CT ABD/PEL W IVCON Routine order Administer, As Directed One Time Only, via Oral, Rectal, both Oral and Rectal, Enteric Tube, Stoma or Indwelling Catheter, Enteric Contrast as designated per enteric contrast guidelines iv contrast (will be provided with radiology test) CT Chest ABD/PEL-Inject, intravenously, once for 1 dose.No IV access, insert saline lock prior to the beginning of sedation, infusion, injection of imaging exam. Discontinue saline lock post exam. If Pt. has a central line or IVAD, may access for administration according to line specific nursing protocol. Once exam is complete flush line and de-access according to line specific nursing protocol in the CT contrast administration guidelines link. enteric contrast (will be provided with radiology test) For CT CHESTABD/PEL W IVCON Routine order Administer, As Directed One Time Only, via Oral, Rectal, both Oral and Rectal, Enteric Tube, Stoma or Indwelling Catheter, Enteric Contrast as designated per enteric contrast guidelines Current Facility-Administered Medications Medication Dose Route Frequency cyanocobalamin 1,000 mcg injection 1,000 mcg INTRAMUSCULAR q 4 WEEKS Social History Tobacco Use Smoking status: Former Current packs/day: 0.00 Average packs/day: 0.3 packs/day for 5.0 years (1.3 ttl pk-yrs) Types: Cigarettes Start date: 1978 Quit date: 1983 Years since quittin.5 Smokeless tobacco: Never Vaping Use Vaping status: Never Used Substance Use Topics Alcohol use: Yes Comment: Occasionally Drug use: No Family History Problem Relation Age of Onset Osteoporosis Mother other (Hepatitis C) Mother Colon Cancer Father other (myasthenia gravis) Father Aneurysm Father Osteoporosis Sister No Known Problems Brother No Known Problems Brother Aneurysm Brother Cancer Brother bladder other (atrial fib) Brother COPD Brother No Known Problems Maternal Grandmother Stroke Maternal Grandfather ROS: Constitutional: No fever. No drenching night sweats. Normal appetite. No unexplained weight loss. All systems reviewed on 03/11/2025 with pertinent positives and negatives as outlined in the interval history. PHYSICAL EXAM: Vitals: Blood pressure 97/59, pulse 84, height 160 cm (5' 3), weight 86.9 kg (191 lb 8 oz), SpO2 99%. Well-appearing and in no acute distress. EYES: Sclerae are anicteric bilaterally. RESPIRATORY: Inspiratory breath sounds are of normal intensity in all leong. No rales, wheezes or rhonchi. CARDIOVASCULAR: Rhythm is regular. ABDOMEN: The abdomen is nondistended. nontender Extremities: No swelling or edema. SKIN: No jaundice. I have performed the physical exam today (03/11/2025) and have edited the note to correlate with current findings. Labs: Lab Results Component Value Date WBC 4.02 01/08/2025 HB 10.2 (L) 01/08/2025 MCV 86.7 01/08/2025 PLT 105 (L) 01/08/2025 Lab Results Component Value Date NA 138 01/08/2025 K 3.7 01/08/2025 CO2 25 01/08/2025 BUN 12 01/08/2025 CREAT 0.90 01/08/2025 TBILI 0.7 01/08/2025 TPROT 5.9 (L) 01/08/2025 ALB 3.7 (L) 01/08/2025 ALKPHOS 143 (H) 01/08/2025 ALT 16 01/08/2025 AST 24 01/08/2025 PATHOLOGY: Bone marrow biopsy 10/03/2023: FINAL DIAGNOSIS A-C. Bone marrow, left posterior iliac crest, aspirate, biopsy, clot and peripheral smear: - Normocellular marrow with maturing trilineage hematopoiesis, (see comment and microscopic description). Diagnosis Comment The bone marrow is roughly normocellular for age (25-30% overall cellularity). There is no overt morphologic dysplasia and blasts are not increased. Flow cytometry (see separate report) revealed no evidence of involvement by a lymphoproliferative disorder or abnormal blast population. Cytogenetics (see separate report) demonstrated a normal female karyotype. The patient has a history of intermittent anemia and thrombocytopenia. No stainable storage iron was identified by iron stain of the biopsy and aspirate specimens; though iron studies from 07/2023 were within normal limits, studies had previously demonstrated iron deficiency as recently as 02/2023. The patient is also reported to have splenomegaly (U/S from 02/2023), which likely contributes in part to her thrombocytopenia. Myeloid NGS studies have been ordered and will be reported separately when available. ASSESSMENT/PLAN: (D50.9) Iron deficiency anemia, unspecified iron deficiency anemia type (primary encounter diagnosis) (R16.1) Splenomegaly (D69.6) Thrombocytopenia (HCC) (I85.10) Secondary esophageal varices without bleeding (HCC) Assessment: -WAQAR secondary to chronic blood loss (hemorrhoids, bleeding esophageal varacies) and likely malabsorption due to chronic gastritis and PPI use. - pt states that she is unable to have hemorrhoid banding. -Thrombocytopenia. Stable. Not on anticoagulation or antiplatelet therapy. 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 Liver disease, has fibroscan coming up, following with GI -Had BMBx 2023 :--absent iron stores. No morphologic evidence of MDS. Flow cytometry indicated no evidence of plasma cell disorder or lymphoma. -PO iron causes GI upset, unlikely to provider her much benefit with chronic PPI use, unlikely to absorb Discussed the use of iron sucrose. - last dose of IV iron 12/2024, iron studies pending today -continued rectal bleeding. Recent esophogeal varices banding. - Dr. Dion HILARIO Plan: - reviewed CBC today, no transfusion but hgb dropping from last 8.7 on 02/26, denies bleeding asymptomatic - recheck next Saturday with possible transfusion -discussed will likely need to continue to replenish iron stores as she continues to experience chonic blood loss, would plan for potential maintenance dosing pending next set of labs. Iron studies pending today - likely require IV iron -continue to follow with GI, hepatology, pulm, pcp OV in about a month with labs prior Advised to call with any questions or concerns. Return to ED with any overt bleeding, s/s of worsening anemia. Beata Boone APRN.ASSOCIATE SOFTWARE APPLICATION ENGINEER I spent a total of 30 minutes on the date of the service which included preparing to see the patient, [id number] patient care, completing clinical documentation, counseling and educating the patient/family/caregiver, and communicating results to the patient/family/caregiver. Portions of this note including HPI, ROS, impression/plan may have been copied forward as to provide important historical information essential in contributing to medical decision making. Documentation has been reviewed and edited as necessary to support clinical decision making for today's visit and to reflect my own independent evaluation of this patient. documented in this encounter [facility] 02-12-2025 Consult note [facility] 02-12-2025 Discharge summary Note Date/Time February 12, 2025 4:32pm [facility] Medical Records Department [address] [place] [address] Discharge Summary 02/12/25 1550 MR#: [id number] Acct: [id number] Name: BARBARA MENESES Rep #:[id number] : 1955 70 From: Trisha Iraheta MD PCP: Dr. Juan Locke, Status:AD M IN Location: [place] [id number] Providers Date of Admission: 02/09/25 Date of Discharge: 02/12/25 Primary Care Physician: Dr. Juan Locke, DO Consultations 02/09/25 16:59 Consult: Gastroenterology Routine Consulting Provider: [facility] Reason for Consult: GI bleed EMERGENT Consult: No MD Notified: Yes Date Notified: 02/09/25 Time Notified: 16:21 Method of Notification: ED Physician Initiated Reason For Visit: UGIB, ABLA Diagnosis Discharge Diagnosis (1) Pleural effusion on left: Status: Inactive Code(s): J90 - Pleural effusion, not elsewhere classified Plan #Acute on chronic anemia due to acute Gi bleed * has a history of esophageal varices and portal gastropathy in the setting of cirrhosis * s/p transfusion of 4 units of PRBCs. Hb toay is 8.1. * Had EGD which showed 3 bleeding angiodysplastic lesions which were cauterized. He also had grade 3 esophageal varices and is to go for repeat EGD today for banding. * Continue PPI. * Continue NPO. * #Chronic liver cirrhosis: on propranolol, furosemide and spironolactone. GI on board #Pancytopenia: * Wbc is 3.9 and hb is 8.1. Platelets are 75. * This is likely due to her chronic liver disease. Will monitor #Hypothyroidism: on synthroid DVT prophylaxis: SCDs. No anticoagulation due to GI bleed Medications at Discharge Home Medications duloxetine 60 mg capsule,delayed release 60 mg PO DAILY mental health 11/06/17 ergocalciferol (vitamin D2) 1,250 mcg (50,000 unit) capsule 50,000 unit PO vitamin 11/06/17 albuterol sulfate 90 mcg/actuation aerosol inhaler 1 - 2 puff inhalation PRN PRNALLERGIES 02/20/23 dulaglutide 0.75 mg/0.5 mL subcutaneous pen injector (Trulicity) 0.75 mg subcut diabetes 10/10/23 cyanocobalamin (vitamin B-12) 1,000 mcg capsule 1,000 mcg PO DAILY vitamin 02/13/24 fexofenadine 180 mg tablet (Jez Allergy) 180 mg PO DAILY allergies 03/03/24 propranolol 10 mg tablet 10 mg PO TID blood pressure 30 days #90 tabs 04/02/24 spironolactone 50 mg tablet 50 mg PO BID diuretic #30 tabs 07/07/24 furosemide 40 mg tablet 40 mg PO QDAY diuretic 11/07/24 ferrous gluconate 324 mg (38 mg iron) tablet 324 mg PO TID supplement #90 tabs 11/10/24 famotidine 40 mg tablet 40 mg PO QHS reflux #30 tabs 11/21/24 omeprazole 40 mg capsule,delayed release 40 mg PO BID reflux #60 caps 03/08/25 cholestyramine 4 gram oral powder for suspension in a packet (Prevalite) 4 g PO DAILY 02/09/25 levothyroxine 137 mcg tablet (Synthroid) 137 mcg PO DAILY thyroid 02/09/25 Hospital Course Operations None Procedures None Summary of Care Provided Minutes Spent on Discharge: 45 Hospital Course: Patient is a 70 y/o female with a PMH as outlined who was admitted on 02/09/2025 with a complaint of weakness for several days prior to admission. She described it as how she usually felt when she was anemic. She came to the ED and hemoglobin was 5.2. She admitted to melena stools for several days prior to admission but denied any hematemesis or hematochezia. She was transfused with 2units of blood cells in the ED and gastroenterology was consulted. She had beenadmitted in November and October 2024 and had EGD both times as well as capsule endoscopy in November 2024. The EGD October 2023 showed grade 2 esophageal varices and severe portal hypertensive gastropathy and capsule endoscopy in November 2024 showed no signs of blood loss anemia but noted portal gastropathy. She was admitted to be managed for acute on chronic anemia due to acute GI bleed. Gastroenterology was consulted. She had EGD which showed grade III esophageal varices and portal hypertensive gastropathy which were treated with aheater probe, and three bleeding angiodysplastic lesion in the duodenum which were cauterised. She had repeat EGD on 02/11/2025 and had banding of the grade 3esophageal varices. She did not have any more bleeding. She was transfused a total of 4 units of packed red blood cells during this admission. She remained stable and was discharged on 02/12/2025. She was continue with her p.o. omeprazole 40 mg twice daily. She is follow-up with her PCP and with gastroenterology within 1 to 2 weeks. Patient seen and examined prior to discharge. She had no active complaints and felt well. Review of systems otherwise negative. Labs and vitals reviewed. Home medication reviewed and reconciled. Physical Exam Const alert, oriented x3, no apparent distress and well nourished General Appearance: cooperative, comfortable and well kempt Exam Limitations: no limitations HEENT normocephalic, head/scalp atraumatic, hearing grossly normal bilaterally, moist oral mucous membranes and oropharynx normal Eyes PERRL and EOMs intact bilaterally Neck no lymphadenopathy and supple Lymph Lymphatic: no lymphedema noted Resp normal respiratory effort, normal air movement and clear to auscultation bilaterally Cardio regular rate, regular rhythm, S1 normal heart sound, S2 normal heart sound and no murmurs GI normal to inspection, nondistended, normoactive bowel sounds, soft to palpation,non-tender and non-distended Extremity normal capillary refill, no clubbing, cyanosis or edema and no calf tenderness General Extremity: no tenderness to palpation of joints or extremities Skin no rashes or lesions noted General Skin Exam: no breakdown Neuro oriented x3, CN's II-XII intact bilaterally, moves all extremities, no focal motor deficits and no sensory deficits noted Sensorium / Orientation: awake and alert Motor Exam: strength 5/5 throughout Psych thought process normal, cooperative and affect normal Appearance: appropriate Weight / BMI Weight Weight: 189 lb 6.033 oz Body Mass Index (BMI) 32.5 ABG / Lab / Microbiology Data 02/12/25 06:06 02/12/25 06:06 Laboratory: Laboratory Results - last 24 hr 02/12/25 06:06: WBC 3.4 L, RBC 3.11 L, Hgb 8.6 L, Hct 26.9 L, MCV 86.5, MCH 27.7, MCHC 32.0, RDW Std Deviation 50.4 H, RDW Coeff of Cornelio 16.4 H, Plt Count 77L, MPV 10.8, Immature Gran % (Auto) 0.300, Neut % (Auto) 55.4, Lymph % (Auto) 28.5, [place] % (Auto) 11.0 H, Eos % (Auto) 4.2, Baso % (Auto) 0.6, Absolute Neuts (auto) 1.9 L, Absolute Lymphs (auto) 0.96, Nucleated RBC % 0.6, Sodium 134, Potassium 3.5, Chloride 104, Carbon Dioxide 22.3, Anion Gap 8, BUN 13, Creatinine 1.23 H, Estim Creat Clear Calc 44.49 L, Est GFR (MDRD) Non-Af 47 L, BUN/Creatinine Ratio 10.7, Glucose 152 H, Calcium 8.4 D/C Instructions Discharge Diet: Low fat / Low cholesterol Discharge Activity: Return to Normal Activity Weight Bearing Status: Weight bearing as tolerated Call your doctor if you observe: Fever of 101 or Higher, Shortness of breath, Dizziness, Swelling in the ankles and Chest pain DC O2, CPAP, BIPAP Needs Home O2 Discharge instructions: No DC home with Oxygen: No Meaningful Use Info Meaningful Use Meaningful Use Diagnoses (Choose all that apply): None applicable Ischemic Stroke Statin Dosing Therapy Reference: STATIN DOSE THERAPY REFERENCE: * Patients > 75 years receive moderate or high dose statin therapy. * Patients 75 years or YOUNGER should receive HIGH intensity statin dose unless contraindicated. You will be required to document reason for non-treatment if statin daily dose does not meet guidelines. HIGH DOSE STATIN THERAPY DAILY Atorvastatin > than or = to 40 mg Rosuvastatin > than or = to 20 mg Amlodipine + Atorvastatin > than or = to 2.5/40 mg Ezetimibe + Simvastatin 10/80 mg Simvastatin 80mg Discharge Plan Admission Admit Date/Time: 02/09/25 16:18 Primary Reason for Your Visit: GI bleed Attending Provider: Trisha Iraheta Primary Care Provider: Juan Locke Consulting Providers: Kwasi Nieves Instructions Patient Instructions: GI Bleeding Ch Discharge Orders/Prescriptions Prescriptions: Continued Trulicity 0.75 mg/0.5 mL pen injector 0.75 mg subcut SA cyanocobalamin (vitamin B-12) 1,000 mcg capsule 1,000 mcg PO DAILY spironolactone 50 mg tablet 50 mg PO BID Qty: 30 2RF Rx Instructions: Hold if serum POTASSIUM is more than 5.1 famotidine 40 mg tablet 40 mg PO QHS Qty: 30 3RF omeprazole 40 mg capsule,delayed release(DR/EC) 40 mg PO BID Qty: 60 3RF ergocalciferol (vitamin D2) 50,000 UNIT capsule 50,000 unit PO SA duloxetine 60 MG capsule,delayed release(DR/EC) 60 mg PO DAILY albuterol sulfate 90 mcg/actuation HFA aerosol inhaler 1 - 2 puff INHALATION PRN PRN (Reason: ALLERGIES) furosemide 40 mg tablet 40 mg PO QDAY ferrous gluconate 324 mg (38 mg iron) tablet 324 mg PO TID Qty: 90 0RF fexofenadine [Jez Allergy] 180 mg tablet 180 mg PO DAILY propranolol 10 mg Tablet 10 mg PO TID 30 Days Qty: 90 0RF levothyroxine [Synthroid] 137 mcg tablet 137 mcg PO DAILY Prevalite 4 gram powder in packet 4 g PO DAILY Referrals / Follow Up: Juan Locke DO [Primary Care Provider] - Within 1 Week Friend,DO Ronald [Med Staff - Active Staff] - Within 2 Weeks Disposition Disposition (needs filled in before D/C Order can be placed): Home, Self Care Charges/Coding Visit Charges Inpatient E&M: 79152 Disch Hosp >30min 02/12/25 1632 <Electronically signed by Trisha Iraheta MD> Cosigner Signature (if applicable): CC: Dr. Juan Locke DO; Dr. Trisha Iraheta MD~ Signed [facility] Work Phone: 1([phone] 532-915405-30-2025 Discharge summary Author Trisha [facility] Note Date/Time February 12, 2025 5:43p m [facility] Medical Records Department [address] [place] [address] Instructions for Home/Discharge Instructions 02/12/25 1547 MR#: [id number] Acct: [id number] Name: BARBARA MENESES Rep #:[id number] : 1955 70 From: Trisha Iraheta MD PCP: Dr. Juan Locke DO Status:AD M IN Discharge Instructions Diet Discharge Diet: Low fat / Low cholesterol DC O2, CPAP, BIPAP needs Home O2 Discharge instructions: No Dressing / Incision Discharge Activity: Return to Normal Activity Weight Bearing Status: Weight bearing as tolerated Dressing / Incision Call your doctor if you observe: Fever of 101 or Higher, Shortness of breath, Dizziness, Swelling in the ankles and Chest pain Follow Up Care Test Results: Test results from this visit will be discussed in further detail at your follow- up appointment, if applicable. Discharge Plan Admission Admit Date/Time: 02/09/25 16:18 Primary Reason for Your Visit: GI bleed Attending Provider: Trisha Iraheta Primary Care Provider: Juan Locke Consulting Providers: Kwasi Nieves Instructions Patient Instructions: GI Bleeding Ch Discharge Orders/Prescriptions Prescriptions: Continued Trulicity 0.75 mg/0.5 mL pen injector 0.75 mg subcut SA cyanocobalamin (vitamin B-12) 1,000 mcg capsule 1,000 mcg PO DAILY spironolactone 50 mg tablet 50 mg PO BID Qty: 30 2RF Rx Instructions: Hold if serum POTASSIUM is more than 5.1 famotidine 40 mg tablet 40 mg PO QHS Qty: 30 3RF omeprazole 40 mg capsule,delayed release(DR/EC) 40 mg PO BID Qty: 60 3RF ergocalciferol (vitamin D2) 50,000 UNIT capsule 50,000 unit PO SA duloxetine 60 MG capsule,delayed release(DR/EC) 60 mg PO DAILY albuterol sulfate 90 mcg/actuation HFA aerosol inhaler 1 - 2 puff INHALATION PRN PRN (Reason: ALLERGIES) furosemide 40 mg tablet 40 mg PO QDAY ferrous gluconate 324 mg (38 mg iron) tablet 324 mg PO TID Qty: 90 0RF fexofenadine [Jez Allergy] 180 mg tablet 180 mg PO DAILY propranolol 10 mg Tablet 10 mg PO TID 30 Days Qty: 90 0RF levothyroxine [Synthroid] 137 mcg tablet 137 mcg PO DAILY Prevalite 4 gram powder in packet 4 g PO DAILY Referrals / Follow Up: Juan Locke DO [Primary Care Provider] - Within 1 Week Friend,DO Ronald [Med Staff - Active Staff] - Within 2 Weeks Disposition Disposition (needs filled in before D/C Order can be placed): Home, Self Care 02/12/25 1743<Electronically signed by Trisha Iraheta MD>Trisha Iraheta MD CC: Dr. Kwasi Nieves DO; Dr. Juan Locke DO ~ Signed [facility] Work Phone: [phone]) 941-905905-30-2025 Discharge summary [facility] Medical Records Department [address] [place] [address] Instructions for Home/Discharge Instructions 02/12/25 1547 MR#: [id number] Acct: [id number] Name: BARBARA MENESES Rep #:[id number] : 1955 70 From: Trisha Iraheta MD PCP: Dr. Juan Locke DO Status:AD M IN Discharge Instructions Diet Discharge Diet: Low fat / Low cholesterol DC O2, CPAP, BIPAP needs Home O2 Discharge instructions: No Dressing / Incision Discharge Activity: Return to Normal Activity Weight Bearing Status: Weight bearing as tolerated Dressing / Incision Call your doctor if you observe: Fever of 101 or Higher, Shortness of breath, Dizziness, Swelling in the ankles and Chest pain Follow Up Care Test Results: Test results from this visit will be discussed in further detail at your follow- up appointment, if applicable. Discharge Plan Admission Admit Date/Time: 02/09/25 16:18 Primary Reason for Your Visit: GI bleed Attending Provider: Trisha Iraheta Primary Care Provider: Juan Locke Consulting Providers: Kwasi Nieves Instructions Patient Instructions: GI Bleeding Ch Discharge Orders/Prescriptions Prescriptions: Continued Trulicity 0.75 mg/0.5 mL pen injector 0.75 mg subcut SA cyanocobalamin (vitamin B-12) 1,000 mcg capsule 1,000 mcg PO DAILY spironolactone 50 mg tablet 50 mg PO BID Qty: 30 2RF Rx Instructions: Hold if serum POTASSIUM is more than 5.1 famotidine 40 mg tablet 40 mg PO QHS Qty: 30 3RF omeprazole 40 mg capsule,delayed release(DR/EC) 40 mg PO BID Qty: 60 3RF ergocalciferol (vitamin D2) 50,000 UNIT capsule 50,000 unit PO SA duloxetine 60 MG capsule,delayed release(DR/EC) 60 mg PO DAILY albuterol sulfate 90 mcg/actuation HFA aerosol inhaler 1 - 2 puff INHALATION PRN PRN (Reason: ALLERGIES) furosemide 40 mg tablet 40 mg PO QDAY ferrous gluconate 324 mg (38 mg iron) tablet 324 mg PO TID Qty: 90 0RF fexofenadine [Jez Allergy] 180 mg tablet 180 mg PO DAILY propranolol 10 mg Tablet 10 mg PO TID 30 Days Qty: 90 0RF levothyroxine [Synthroid] 137 mcg tablet 137 mcg PO DAILY Prevalite 4 gram powder in packet 4 g PO DAILY Referrals / Follow Up: Juan Locke DO [Primary Care Provider] - Within 1 Week Ronald Zimmer DO [Med Staff - Active Staff] - Within 2 Weeks Disposition Disposition (needs filled in before D/C Order can be placed): Home, Self Care 02/12/25 1743Nannoe Iraheta MD CC: Dr. Kwasi Nieves DO; Dr. Juan Locke DO ~ Signed [facility]05-30-2025 Discharge summary [facility] Medical Records Department [address] [place] [address] Discharge Summary 02/12/25 1550 MR#: [id number] Acct: [id number] Name: BARBARA MENESES Rep #:[id number] : 1955 70 From: Trisha Iraheta MD PCP: Dr. Juan Locke DO Status:AD M IN [facility] Providers Date of Admission: 02/09/25 Date of Discharge: 02/12/25 Primary Care Physician: Dr. Juan Locke DO Consultations 02/09/25 16:59 Consult: Gastroenterology Routine Consulting Provider: [facility] Reason for Consult: GI bleed EMERGENT Consult: No MD Notified: Yes Date Notified: 02/09/25 Time Notified: 16:21 Method of Notification: ED Physician Initiated Reason For Visit: UGIB, ABLA Diagnosis Discharge Diagnosis (1) Pleural effusion on left: Status: Inactive Code(s): J90 - Pleural effusion, not elsewhere classified Plan #Acute on chronic anemia due to acute Gi bleed * has a history of esophageal varices and portal gastropathy in the setting of cirrhosis * s/p transfusion of 4 units of PRBCs. Hb toay is 8.1. * Had EGD which showed 3 bleeding angiodysplastic lesions which were cauterized. He also had grade 3 esophageal varices and is to go for repeat EGD today for banding. * Continue PPI. * Continue NPO. * #Chronic liver cirrhosis: on propranolol, furosemide and spironolactone. GI on board #Pancytopenia: * Wbc is 3.9 and hb is 8.1. Platelets are 75. * This is likely due to her chronic liver disease. Will monitor #Hypothyroidism: on synthroid DVT prophylaxis: SCDs. No anticoagulation due to GI bleed Medications at Discharge Home Medications duloxetine 60 mg capsule,delayed release 60 mg PO DAILY mental health 11/06/17 ergocalciferol (vitamin D2) 1,250 mcg (50,000 unit) capsule 50,000 unit PO SA vitamin 11/06/17 albuterol sulfate 90 mcg/actuation aerosol inhaler 1 - 2 puff inhalation PRN PRNALLERGIES 02/20/23 dulaglutide 0.75 mg/0.5 mL subcutaneous pen injector (Trulicity) 0.75 mg subcut SA diabetes 10/10/23 cyanocobalamin (vitamin B-12) 1,000 mcg capsule 1,000 mcg PO DAILY vitamin 02/13/24 fexofenadine 180 mg tablet (Jez Allergy) 180 mg PO DAILY allergies 03/03/24 propranolol 10 mg tablet 10 mg PO TID blood pressure 30 days #90 tabs 04/02/24 spironolactone 50 mg tablet 50 mg PO BID diuretic #30 tabs 07/07/24 furosemide 40 mg tablet 40 mg PO QDAY diuretic 11/07/24 ferrous gluconate 324 mg (38 mg iron) tablet 324 mg PO TID supplement #90 tabs 11/10/24 famotidine 40 mg tablet 40 mg PO QHS reflux #30 tabs 11/21/24 omeprazole 40 mg capsule,delayed release 40 mg PO BID reflux #60 caps 11/21/24 cholestyramine 4 gram oral powder for suspension in a packet (Prevalite) 4 g PO DAILY 02/09/25 levothyroxine 137 mcg tablet (Synthroid) 137 mcg PO DAILY thyroid 02/09/25 Hospital Course Operations None Procedures None Summary of Care Provided Minutes Spent on Discharge: 45 Hospital Course: Patient is a 70 y/o female with a PMH as outlined who was admitted on 02/09/2025 with a complaint ofweakness for several days prior to admission. She described it as how she usually felt when she wasanemic. She came to the ED and hemoglobin was 5.2. She admitted to melena stools for several days prior to admission but denied any hematemesis or hematochezia. She was transfused with 2units of blood cells in the ED and gastroenterology was consulted. She had beenadmitted in November and October 2024 and had EGD both times as well as capsule endoscopy in November 2024. The EGD October 2023 showed grade 2 esophageal varices and severe portal hypertensive gastropathy and capsule endoscopy in November 2024 showed no signs of blood loss anemia but noted portal gastropathy. She was admitted to be managed for acute on chronic anemia due to acute GI bleed. Gastroenterology was consulted. She had EGD which showed grade III esophageal varices and portal hypertensive gastropathy which were treated with aheater probe, and three bleeding angiodysplastic lesion in the duodenum which were cauterised. She had repeat EGD on 02/11/2025 and had banding of the grade 3esophageal varices. She did not have any more bleeding. She was transfused a total of 4 units of packed red blood cells during this admission. She remained stable and was discharged on 02/12/2025. She was continue with her p.o. omeprazole 40 mgtwice daily. She is follow-up with her PCP and with gastroenterology within 1 to 2 weeks. Patient seen and examined prior to discharge. She had no active complaints and felt well. Review ofsystems otherwise negative. Labs and vitals reviewed. Home medication reviewed and reconciled. Physical Exam Const alert, oriented x3, no apparent distress and well nourished General Appearance: cooperative, comfortable and well kempt Exam Limitations: no limitations HEENT normocephalic, head/scalp atraumatic, hearing grossly normal bilaterally, moist oral mucous membranes and oropharynx normal Eyes PERRL and EOMs intact bilaterally Neck no lymphadenopathy and supple Lymph Lymphatic: no lymphedema noted Resp normal respiratory effort, normal air movement and clear to auscultation bilaterally Cardio regular rate, regular rhythm, S1 normal heart sound, S2 normal heart sound and no murmurs GI normal to inspection, nondistended, normoactive bowel sounds, soft to palpation,non-tender and non-distended Extremity normal capillary refill, no clubbing, cyanosis or edema and no calf tenderness General Extremity: no tenderness to palpation of joints or extremities Skin no rashes or lesions noted General Skin Exam: no breakdown Neuro oriented x3, CN's II-XII intact bilaterally, moves all extremities, no focal motor deficits and no sensory deficits noted Sensorium / Orientation: awake and alert Motor Exam: strength 5/5 throughout Psych thought process normal, cooperative and affect normal Appearance: appropriate Weight / BMI Weight Weight: 189 lb 6.033 oz Body Mass Index (BMI) 32.5 ABG / Lab / Microbiology Data 02/12/25 06:06 02/12/25 06:06 Laboratory: Laboratory Results - last 24 hr 02/12/25 06:06: WBC 3.4 L, RBC 3.11 L, Hgb 8.6 L, Hct 26.9 L, MCV 86.5, MCH 27.7, MCHC 32.0, RDW Std Deviation 50.4 H, RDW Coeff of Cornelio 16.4 H, Plt Count 77L, MPV 10.8, Immature Gran % (Auto) 0.300, Neut % (Auto) 55.4, Lymph % (Auto) 28.5, [place] % (Auto) 11.0 H, Eos % (Auto) 4.2, Baso % (Auto) 0.6, Absolute Neuts (auto) 1.9 L, Absolute Lymphs (auto) 0.96, Nucleated RBC % 0.6, Sodium 134, Potassium3.5, Chloride 104, Carbon Dioxide 22.3, Anion Gap 8, BUN 13, Creatinine 1.23 H, Estim Creat Clear Calc 44.49 L, Est GFR (MDRD) Non-Af 47 L, BUN/Creatinine Ratio 10.7, Glucose 152 H, Calcium 8.4 D/C Instructions Discharge Diet: Low fat / Low cholesterol Discharge Activity: Return to Normal Activity Weight Bearing Status: Weight bearing as tolerated Call your doctor if you observe: Fever of 101 or Higher, Shortness of breath, Dizziness, Swelling in the ankles and Chest pain DC O2, CPAP, BIPAP Needs Home O2 Discharge instructions: No DC home with Oxygen: No Meaningful Use Info Meaningful Use Meaningful Use Diagnoses (Choose all that apply): None applicable Ischemic Stroke Statin Dosing Therapy Reference: STATIN DOSE THERAPY REFERENCE: * Patients > 75 years receive moderate or high dose statin therapy. * Patients 75 years or YOUNGER should receive HIGH intensity statin dose unless contraindicated. You will be required to document reason for non-treatment if statin daily dose does not meet guidelines. HIGH DOSE STATIN THERAPY DAILY Atorvastatin > than or = to 40 mg Rosuvastatin > than or = to 20 mg Amlodipine + Atorvastatin > than or = to 2.5/40 mg Ezetimibe + Simvastatin 10/80 mg Simvastatin 80mg Discharge Plan Admission Admit Date/Time: 02/09/25 16:18 Primary Reason for Your Visit: GI bleed Attending Provider: Trisha Iraheta Primary Care Provider: Juan Locke Consulting Providers: Kwasi Nieves Instructions Patient Instructions: GI Bleeding Ch Discharge Orders/Prescriptions Prescriptions: Continued Trulicity 0.75 mg/0.5 mL pen injector 0.75 mg subcut SA cyanocobalamin (vitamin B-12) 1,000 mcg capsule 1,000 mcg PO DAILY spironolactone 50 mg tablet 50 mg PO BID Qty: 30 2RF Rx Instructions: Hold if serum POTASSIUM is more than 5.1 famotidine 40 mg tablet 40 mg PO QHS Qty: 30 3RF omeprazole 40 mg capsule,delayed release(DR/EC) 40 mg PO BID Qty: 60 3RF ergocalciferol (vitamin D2) 50,000 UNIT capsule 50,000 unit PO SA duloxetine 60 MG capsule,delayed release(DR/EC) 60 mg PO DAILY albuterol sulfate 90 mcg/actuation HFA aerosol inhaler 1 - 2 puff INHALATION PRN PRN (Reason: ALLERGIES) furosemide 40 mg tablet 40 mg PO QDAY ferrous gluconate 324 mg (38 mg iron) tablet 324 mg PO TID Qty: 90 0RF fexofenadine [Jez Allergy] 180 mg tablet 180 mg PO DAILY propranolol 10 mg Tablet 10 mg PO TID 30 Days Qty: 90 0RF levothyroxine [Synthroid] 137 mcg tablet 137 mcg PO DAILY Prevalite 4 gram powder in packet 4 g PO DAILY Referrals / Follow Up: Juan Locke DO [Primary Care Provider] - Within 1 Week Friend,DO Ronald [Med Staff - Active Staff] - Within 2 Weeks Disposition Disposition (needs filled in before D/C Order can be placed): Home, Self Care Charges/Coding Visit Charges Inpatient E&M: 61491 Disch Hosp >30min 02/12/25 1632 Cosigner Signature (if applicable): CC: Dr. Juan Locke DO; Dr. Trisha Iraheta MD~ Signed [facility]05-30-2025 [facility] Progress note Author Trisha [facility] Note Date/Time February 11, 2025 4:33p m [facility] Medical Records Department [address] [place] [address] Progress Note 02/11/25 1036 MR#: [id number] Acct: [id number] Name: BARBARA MENESES Rep #:[id number] : 1955 70 From: Trisha Iraheta MD PCP: Dr. Juan Locke, DO Status:AD M IN Location: [place] [id number]- [id number] Subjective Subjective Patient seen and examined. She had no complaints this morning. She did have somedark melena stools again overnight. She had EGD yesterday which showed grade IIIesophageal varices and bleeding angiodysplastic lesions which were cauterised. She is for repeat EGD for esophageal variceal banding. Objective Data Objective Data Vital Signs: Vital Signs Temp Pulse Resp BP Pulse Ox O2 Del Method 98.5 F 76 15 92/56 L 99 Room Air 02/11/25 09:15 02/11/25 09:15 02/11/25 09:15 02/11/25 09:15 02/11/25 09:15 02/11/25 10:00 Oxygen Delivery Method Room Air Weight: 189 lb 6.033 oz Body Mass Index (BMI) 32.5 Intake & Output: Intake and Output for Last 24 Hours 02/09/25 02/10/25 02/11/25 23:59 23:59 23:59 Intake Total 860 / 860 1400 / 1400 Output Total 0 / 0 Balance 860 / 860 1400 / 1400 Lab / Micro Data 02/11/25 05:15 02/11/25 05:15 Labs: Laboratory Results - last 24 hr 02/09/25 12:11: Crossmatch See Detail 02/10/25 18:35: Hgb 8.6 L, Hct 26.4 L 02/11/25 05:15: WBC 3.9 L, RBC 2.94 L, Hgb 8.1 L, Hct 25.0 L, MCV 85.0, MCH 27.6, MCHC 32.4, RDW Std Deviation 48.5 H, RDW Coeff of Cornelio 15.9 H, Plt Count 75L, MPV 11.0, Immature Gran % (Auto) 0.800, Neut % (Auto) 67.6, Lymph % (Auto) 18.5 L, [place] % (Auto) 9.0, Eos % (Auto) 3.6, Baso % (Auto) 0.5, Absolute Neuts (auto) 2.6, Absolute Lymphs (auto) 0.72 L, Nucleated RBC % 0.8, Sodium 140, Potassium 3.8, Chloride 110 H, Carbon Dioxide 20.8 L, Anion Gap 9, BUN 17, Creatinine 1.07, Estim Creat Clear Calc 51.14, Est GFR (MDRD) Non-Af 56 L, BUN/Creatinine Ratio 15.8, Glucose 151 H, Calcium 8.4 Rhythm Strip Rhythm Strip: Sinus Tach Rate: 102 Ectopy: None Physical Exam Const alert, oriented x3 and no apparent distress General Appearance: cooperative HEENT normocephalic, head/scalp atraumatic, moist oral mucous membranes, oropharynx normal and gingiva normal Eyes EOMs intact bilaterally Neck no lymphadenopathy and supple Lymph Lymphatic: no lymphedema noted Resp normal respiratory effort, normal air movement and clear to auscultation bilaterally Cardio regular rate, regular rhythm, S1 normal heart sound, S2 normal heart sound and no murmurs GI normal to inspection, nondistended, normoactive bowel sounds and soft to palpation Extremity normal capillary refill, no clubbing, cyanosis or edema and no calf tenderness General Extremity: no tenderness to palpation of joints or extremities Skin General Skin Exam: no breakdown Neuro no focal motor deficits and no sensory deficits noted Motor Exam: strength 5/5 throughout Psych thought process normal, cooperative and affect normal Appearance: appropriate Assessment & Plan Assessment/Plan (1) ABLA (acute blood loss anemia): (2) Acute upper gastrointestinal bleeding: PLAN: Plan #Acute on chronic anemia due to acute Gi bleed * has a history of esophageal varices and portal gastropathy in the setting of cirrhosis * s/p transfusion of 4 units of PRBCs. Hb toay is 8.1. * Had EGD which showed 3 bleeding angiodysplastic lesions which were cauterized. He also had grade 3 esophageal varices and is to go for repeat EGD today for banding. * Continue PPI. * Continue NPO. * #Chronic liver cirrhosis: on propranolol, furosemide and spironolactone. GI on board #Pancytopenia: * Wbc is 3.9 and hb is 8.1. Platelets are 75. * This is likely due to her chronic liver disease. Will monitor #Hypothyroidism: on synthroid DVT prophylaxis: SCDs. No anticoagulation due to GI bleed Charges/Coding Visit Charges Inpatient E&M: 47450 Subs Hosp L2 02/11/25 0109 <Electronically signed by Trisha Iraheta MD> Trisha Iraheta MD Cosigner Signature (if applicable): CC: ~ Signed [facility] Work Phone: 1(321) 346-167505-29-2025 Progress note [facility] Medical Records Department [address] [place] [address] Progress Note 02/11/25 1036 MR#: [id number] Acct: [id number] Name: BARBARA MENESES Rep #:[id number] : 1955 70 From: Trisha Iraheta MD PCP: Dr. Juan Locke, DO Status:AD M IN Location: [place] [address] Subjective Subjective Patient seen and examined. She had no complaints this morning. She did have somedark melena stools again overnight. She had EGD yesterday which showed grade IIIesophageal varices and bleeding angiodysplastic lesions which were cauterised. She is for repeat EGD for esophageal variceal banding. Objective Data Objective Data Vital Signs: Vital Signs Temp Pulse Resp BP Pulse Ox O2 Del Method 98.5 F 76 15 92/56 L 99 Room Air 02/11/25 09:15 02/11/25 09:15 02/11/25 09:15 02/11/25 09:15 02/11/25 09:15 02/11/25 10:00 Oxygen Delivery Method Room Air Weight: 189 lb 6.033 oz Body Mass Index (BMI) 32.5 Intake & Output: Intake and Output for Last 24 Hours 02/09/25 02/10/25 02/11/25 23:59 23:59 23:59 Intake Total 860 / 860 1400 / 1400 Output Total 0 / 0 Balance 860 / 860 1400 / 1400 Lab / Micro Data 02/11/25 05:15 02/11/25 05:15 Labs: Laboratory Results - last 24 hr 02/09/25 12:11: Crossmatch See Detail 02/10/25 18:35: Hgb 8.6 L, Hct 26.4 L 02/11/25 05:15: WBC 3.9 L, RBC 2.94 L, Hgb 8.1 L, Hct 25.0 L, MCV 85.0, MCH 27.6, MCHC 32.4, RDW Std Deviation 48.5 H, RDW Coeff of Cornelio 15.9 H, Plt Count 75L, MPV 11.0, Immature Gran % (Auto) 0.800, Neut % (Auto) 67.6, Lymph % (Auto) 18.5 L, [place] % (Auto) 9.0, Eos % (Auto) 3.6, Baso % (Auto) 0.5, Absolute Neuts (auto) 2.6, Absolute Lymphs (auto) 0.72 L, Nucleated RBC % 0.8, Sodium 140, Potassium 3.8, Chloride 110 H, Carbon Dioxide 20.8 L, Anion Gap 9, BUN 17, Creatinine 1.07, Estim Creat Clear Calc 51.14, Est GFR (MDRD) Non-Af 56 L, BUN/Creatinine Ratio 15.8, Glucose 151 H, Calcium 8.4 Rhythm Strip Rhythm Strip: Sinus Tach Rate: 102 Ectopy: None Physical Exam Const alert, oriented x3 and no apparent distress General Appearance: cooperative HEENT normocephalic, head/scalp atraumatic, moist oral mucous membranes, oropharynx normal and gingiva normal Eyes EOMs intact bilaterally Neck no lymphadenopathy and supple Lymph Lymphatic: no lymphedema noted Resp normal respiratory effort, normal air movement and clear to auscultation bilaterally Cardio regular rate, regular rhythm, S1 normal heart sound, S2 normal heart sound and no murmurs GI normal to inspection, nondistended, normoactive bowel sounds and soft to palpation Extremity normal capillary refill, no clubbing, cyanosis or edema and no calf tenderness General Extremity: no tenderness to palpation of joints or extremities Skin General Skin Exam: no breakdown Neuro no focal motor deficits and no sensory deficits noted Motor Exam: strength 5/5 throughout Psych thought process normal, cooperative and affect normal Appearance: appropriate Assessment & Plan Assessment/Plan (1) ABLA (acute blood loss anemia): (2) Acute upper gastrointestinal bleeding: PLAN: Plan #Acute on chronic anemia due to acute Gi bleed * has a history of esophageal varices and portal gastropathy in the setting of cirrhosis * s/p transfusion of 4 units of PRBCs. Hb toay is 8.1. * Had EGD which showed 3 bleeding angiodysplastic lesions which were cauterized. He also had grade 3 esophageal varices and is to go for repeat EGD today for banding. * Continue PPI. * Continue NPO. * #Chronic liver cirrhosis: on propranolol, furosemide and spironolactone. GI on board #Pancytopenia: * Wbc is 3.9 and hb is 8.1. Platelets are 75. * This is likely due to her chronic liver disease. Will monitor #Hypothyroidism: on synthroid DVT prophylaxis: SCDs. No anticoagulation due to GI bleed Charges/Coding Visit Charges Inpatient E&M: 88378 Subs Hosp L2 02/11/25 1633 Trisha Iraheta MD Cosigner Signature (if applicable): CC: ~ Signed [facility]05-29-2025 Consult note Author Tres Flores [facility] Note Date/Time February 12, 2025 5:55p m [facility] Medical Records Department [address] [place] [address] Anesthesia Postop Eval II 02/11/25 1331 MR#: [id number] Acct: [id number] Name: BARBARA MENESES Rep #:[id number] : 1955 70 From: Tres DYE PCP: Dr. Juan Locke, DO Status:AD M IN Y Race: C Location: [place] [address] 1-1 Anesthesia Postop Eval I Sum Postop Eval Completion status Anesthesia document: Postop Eval 1 completed: Yes Anesthesia Postop Eval I Summary Anesthesia Postop Eval I Summary: Anesthesia Postop Eval I: Assessment Summary Airway patent Yes 02/11/25 13:26 PETROLOGY TEACHER.MDOT Spontaneous unlabored Yes 02/11/25 13:26 PETROLOGY TEACHER.OT respirations Mental status Awake,Calm 02/11/25 13:26 PETROLOGY TEACHER.MDOT nausea No 02/11/25 13:26 PETROLOGY TEACHER.MDOT Vomiting No 02/11/25 13:26 PETROLOGY TEACHER.MDOT Anesthesia Postop Eval I: Fluid Summary Crystalloid volume administer 250 02/11/25 13:26 PETROLOGY TEACHER.MDOT (ml) Colloids volume administered ( ml) Blood Product volume administered (ml) Total IV fluid infused 250 02/11/25 13:26 PETROLOGY TEACHER.MDOT Anesthesia Postop Eval I: Summary Notes Anesthesia Complication No 02/11/25 13:26 PETROLOGY TEACHER.MDOT Anesthesia Complication Comment: Post-operative progress note Anesthesia: Postop Eval II Evaluation Mental status: Awake and Calm Pain Level: 0 nausea: No Vomiting: No Complications Anesthesia Complication: No 02/11/25 1331 <Electronically signed by Tres Flores CRNA> Date _ Tres Flores PETROLOGY TEACHER Cosigner Signature: Date CC: ~ Signed [facility] Work Phone: 1(285) 509-700405-29-2025 Consult note Author Tres Flores [facility] Note Date/Time February 11, 2025 1:26p m [facility] Medical Records Department [address] [place] [address] Anesthesia Postop Eval I 02/11/25 1325 MR#: [id number] Acct: [id number] Name: BARBARA MENESES Rep #:[id number] : 1955 70 From: Tres DYE PCP: Dr. Juan Locke, DO Status:AD M IN Y Race: C Location: [place] [address] 09-16 Anesthesia: Postop Eval I Current Vital Signs Temperature: 97 F Pulse Rate: 85 Blood Pressure: 117/105 Respiratory Rate: 16 Pulse Ox: 97 Oxygen Delivery Method: Room Air Assessment Airway patent: Yes Spontaneous unlabored respirations: Yes Mental status: Awake and Calm nausea: No Vomiting: No Anesthesia Complication: No Fluid Hydration Crystalloid volume administer (ml): 250 Total IV fluid infused: 250 Progress Note Anesthesia document: Postop Eval 1 completed: Yes 02/11/25 1326 <Electronically signed by Tres Flores CRNA> Date _ Tres Flores CRNA Cosigner Signature: CC: ~ Signed [facility] Work Phone: [phone]) 337-627905-29-2025 Progress note Author Ronald Zimmer [facility] Note Date/Time February 11, 2025 1:12p m [facility] Medical Records Department [address] [place] [address] Progress Note 02/11/25 1312 MR#: [id number] Acct: [id number] Name: BARBARA MENESES Rep #:[id number] : 1955 70 From: Ronald Zimmer DO PCP: Dr. Juan Locke, DO Status:AD M IN Location: [place] [address] Progress Note Patient has been n.p.o. for upper endoscopy for reevaluation of her esophageal varices. Physical Exam Const alert, oriented x3 and average body habitus Resp normal respiratory effort, normal air movement and clear to auscultation bilaterally Cardio regular rate, regular rhythm, no murmurs and diaphoretic Assessment & Plan Assessment/Plan (1) Pleural effusion on left: PLAN: Plan 69-year-old female with history of MAFLD associated cirrhosis, type 2 diabetes, presents to the ED with concerns regarding worsening shortness of breath and fatigue. She was discovered to have significant anemia with a hemoglobin of 5.6 Metabolic associated fatty liver disease with cirrhosis: -Child Reich score A, MELD-NA: 10 -Compensated cirrhosis with complications of portal hypertension -She will need egd for to look for signs of GI blood loss Acute on chronic anemia Severe anemia -Combination of iron deficiency anemia with pancytopenia due to splenomegaly -Transfuse 1 unit of blood PRBC to maintain Hgb greater than 7 -INR is 1.2, no underlying coagulopathy 02/10/2025-further recommendations to follow after patient undergoes an upper endoscopy. Thank you 02/11/2025-repeat upper endoscopy today further recommendations after procedure. 02/11/25 1312 <Electronically signed by Ronald Zimmer DO> Ronald Zimmer DO Cosigner Signature (if applicable): CC: ~ Signed [facility] Work Phone: 1(503) 978-736505-29-2025 Consult note Author Adama Barajas [facility] Note Date/Time February 11, 2025 1:01p m [facility] Medical Records Department [address] [place] [address] Pre-Anesthesia Evaluation 02/11/25 1245 MR#: [id number] Acct: [id number] Name: BARBARA MENESES Rep #:[id number] : 1955 70 From: Adama Barajas MD PCP: Dr. Juan Locke, DO Status:AD M IN Y Race: C Location: [place] [address] 1-1 ASA Classification* ASA Classification ASA Classification: 3 (Chronic liver cirrhosis) Assessment & Plan Anesthesia* Anesthesia Assessment Anesthesia Assessment: Discussed sedation and/or anesthesia options, risks, benefits, and alternatives with patient/parents/legal guardian/POA. Questions invited. The patient/parents/legal guardian/POA seems to understand and agrees to proceedwith anesthesia plan. Reviewed the physical assessment, medical history, allergy history and patient home medications list prior to surgery/procedure/anesthetic and documented any changes. Performed airway and anesthesia risk assessments. Anesthesia Type Anesthesia Type: General (Patient had EGD yesterday, did fine. Review chart please. Ozempic ) History Source History Obtained from:: Patient and Chart Anesthesia Focused Assessment* Temperature: 98.2 F Pulse Rate: 81 Blood Pressure: 101/59 Respiratory Rate: 14 Pulse Ox: 92 Airway Assessment Mouth opens: >3 cm Mallampati Score: I Teeth Condition: Chipped/Broken (Patient has a chipped tooth #8.) Neck Range of motion (ROM): Full ROM Focused Labs Anesthesia Preop lab: CBC WBC 3.9 K/mm3 (4.4-11.0) L 02/11/25 05:15 02/11/25 RBC 2.94 M/mm3 (4.2-5.4) L 02/11/25 05:15 02/11/25 Hgb 8.1 g/dL (12.0-15.0) L 02/11/25 05:15 02/11/25 Hct 25.0 % (37-47) L 02/11/25 05:15 02/11/25 Plt Count 75 K/mm3 (150-450) L 02/11/25 05:15 02/11/25 CHEMISTRY Potassium 3.8 mmol/L (3.3-5.1) 02/11/25 05:15 02/11/25 Sodium 140 mmol/L (133-145) 02/11/25 05:15 02/11/25 Magnesium 2.0 mg/dL (1.5-2.2) 02/10/25 03:40 02/10/25 Phosphorus 2.5 mg/dL (2.7-4.5) L 02/10/25 03:40 02/10/25 BUN 17 mg/dL (4-19) 02/11/25 05:15 02/11/25 Creatinine 1.07 mg/dL (0.70-1.20) 02/11/25 05:15 02/11/25 Glucose 151 mg/dL (70-99) H 02/11/25 05:15 02/11/25 POC Glucose 159 mg/dL (74-106) H 11/10/24 11:33 11/10/24 TSH 2.420 uIU/mL (0.358-3.740) 11/08/24 05:27 10/18 12/08 COAG PT 15.8 SECONDS (11.7-14.9) H 02/10/25 03:40 01/15 05/10 Pre-Assessment Diagnosis/Proposed Procedure Planned Operative Procedure(s): Esophagogastroduodenoscopy. Anesthesia History Anesthesia History - reel cutter: Anesthesia History - reel cutter Hx Hospitalization Yes: 02/28/2024 [facility] 08/27/24 08:44 , [facility] Any Problems With Anesthesia Yes: has gotten sick with 02/09/25 20:05 anesthesia in the past Cholinesterase deficiency No 02/09/25 20:05 You/Your Family Experience No 02/09/25 20:05 fever (hyperthermia) with Relationship Recent Exposure to Contagious No 02/09/25 20:05 Disease Does patient have nerve No 02/09/25 20:05 stimulator Patient instructed to have device shut off --Does patient have Pacemaker or ICD? When Was Last Pacemaker Check QUESTION #4 FULL TEXT: You/Your Family Experience fever (hyperthermia) with Anesthesia Last Oral Intake Last Oral intake: Last Oral Intake NPO since 00:01 02/10/25 11:13 Meds taken in AM with sips of No 02/10/25 11:13 water? Meds patient instructed to take am of surgery PONV PONV - reel cutter: PONV - reel cutter Female HX of Motion Sickness HX of N/V After Surgery Non-Smoker Duration of Surgery greater than 60 minutes Number of Risk Factors PONV Score Height & Weight Height & Weight: Anesthesia: Height & Weight Height 5 ft 4 in 02/11/25 10:37 Weight: 85.9 kg 02/11/25 10:37 Body Mass Index (BMI) 32.5 02/09/25 16:59 Respiratory Assessment Respiratory Assessment - reel cutter: Respiratory Tract Infection Hx - reel cutter Hx Respiratory Tract Infection No 02/09/25 20:05 STOP Sleep Apnea STOP Sleep Apnea - reel cutter: STOP Sleep Apnea - reel cutter Hx Hypertension Yes 02/09/25 16:59 Hx Sleep Apnea Yes 02/09/25 16:59 CPAP No 02/09/25 16:59 BIPAP No 02/09/25 16:59 Do you snore loudly (louder than talking or can be heard Do you often feel tired/ fatigued/ sleepy during daytime? Has anyone observed you stop breathing during sleep? STOP Results Positive 02/10/25 15:40 QUESTION #5 FULL TEXT : Do you snore loudly (louder than talking or can be heard through closed doors)? Tobacco Use History Tobacco Use History - reel cutter: Tobacco Use History - reel cutter Tobacco Use Smoking Status Former smoker 02/09/25 16:59 Hx Tobacco Use No 02/09/25 16:59 Years Smoking Packs Smoked per Day Smoking Cessation Date was No - quit smoking greater 02/09/25 16:59 within the last 15 years than 15 years ago Hx Smoking Cessation Date 09/16/79 02/09/25 16:59 Hx Smoking Cessation Counseling Hematologic Medial History Hematologic Hx - reel cutter: Hematologic Medical Hx - [employer] Hx of Blood Transfusion Yes 02/09/25 16:59 Hx of Transfusion in last 3 Yes 02/09/25 16:59 Months Date of Last Transfusion (if 11/13/24 02/09/25 16:59 within last 3 months) Ever experience any problems No 02/09/25 16:59 with transfusion(s)? Specify any problems Hx of Preganancy in last 3 No 02/09/25 16:59 Months Nurse Filling Out Transfusion [email or web address] 02/09/25 16:59 & Questions: Date: 02/09/25 02/09/25 16:59 Time: 17:04 02/09/25 16:59 Patient unable to answer at this time (ie. confused, unrespo /Reproduction History /Reproductive History - reel cutter: /Reproductive Hx- reel cutter Hx Now Gestational Age (in weeks): EDC: Hx Hx Para Hx Section SAB No 11/09/24 05:49 Active Medications Active Medications: Current Medications Generic Name Dose Route Start Last Admin Trade Name Freq PRN Reason Stop Dose Admin Albuterol Sulfate 2.5 mg 02/09/25 17:08 Albuterol 2.5 Mg/3 Ml Vial.Neb. INHALATION Q4H PRN ALLERGIES Cholestyramine Resin 4 gm 02/10/25 10:00 02/10/25 17:02 Cholestyramine/Sucrose 4 Gm/Packet PO Not Given DAILY AMANDEEP Cyanocobalamin 1,000 mcg 02/10/25 10:00 02/10/25 17:01 Cyanocobalamin 500 Mcg Tablet PO 1,000 mcg DAILY AMANDEEP Administration Duloxetine HCl 60 mg 02/10/25 10:00 02/10/25 17:01 Duloxetine Hcl 60 Mg Capsule PO 60 mg DAILY AMANDEEP Administration Ferrous Gluconate 324 mg 02/09/25 22:00 02/11/25 09:16 Ferrous Gluconate 324 Mg Tablet PO Not Given TIDCM AMANDEEP Furosemide 40 mg 02/10/25 10:00 02/10/25 17:01 Furosemide 40 Mg Tablet PO 40 mg DAILY AMANDEEP Administration Protocol Pantoprazole Sodium 40 mg/ 100 mls @ 330 mls/hr 02/09/25 22:00 02/11/25 09:45 Sodium Chloride IV Infused Q12 AMANDEEP Infusion Sodium Chloride 250 mls @ 15 mls/hr 02/09/25 17:07 IV .[id number] PRN Additional IVPB Infusion Sodium Chloride 250 mls @ 15 mls/hr 02/09/25 17:07 IV .[id number] PRN Saline Flush Lactated Ringer's 1,000 mls @ 15 mls/hr 02/11/25 12:30 02/11/25 12:31 IV 15 mls/hr .Q48H AMANDEEP Administration Levothyroxine Sodium 137 mcg 02/10/25 06:00 02/11/25 05:38 Levothyroxine 137 Mcg Tablet PO 137 mcg DAILY@0600 AMANDEEP Administration Loratadine 10 mg 02/10/25 10:00 02/10/25 17:01 Loratadine 10 Mg Tablet PO 10 mg DAILY AMANDEEP Administration Ondansetron HCl 4 mg 02/09/25 16:59 Ondansetron 4 Mg/2 Ml Vial IV Q8H PRN PRN NAUSEA/VOMITING Propranolol HCl 10 mg 02/09/25 22:00 02/11/25 05:39 Propranolol 10 Mg Tablet PO Not Given TID [facility] Protocol Sodium Chloride 10 - 40 ml 02/09/25 17:07 02/11/25 09:23 0.9% Saline Lock 10 Ml Syringe IV 10 ml UD PRN Administration SALINE FLUSH Spironolactone 50 mg 02/09/25 22:00 02/11/25 09:17 Spironolactone 50 Mg Tablet PO Not Given BID [facility] Protocol [facility] Medical History Ascites Cirrhosis Iron deficiency anemia Lung nodule Hemorrhoids History of diabetes mellitus History of cirrhosis Anemia Pleural effusion on left Exertional dyspnea Chest pain Wears contact lenses Wears glasses Post-menopausal Anxiety Alcohol use Thyroid disease History of renal disease Anemia Back pain History of diverticulitis Gastric reflux Former smoker Sleep apnea Chronic cough S/p nephrectomy Depression Migraines HTN (hypertension) Diabetes Home Medications ?Medication ?Instructions ?Recorded ?Last Taken ?Type duloxetine 60 mg capsule,delayed 60 mg PO DAILY mental health 11/06/17 02/08/25 History release ergocalciferol (vitamin D2) 1,250 50,000 unit PO SA vi tamin 11/06/17 02/06/25 History mcg (50,000 unit) capsule albuterol sulfate 90 mcg/actuation 1 - 2 puff inhalati on PRN PRN 02/20/23 03/16/24 History aerosol inhaler ALLERGIES dulaglutide 0.75 mg/0.5 mL 0.75 mg subcut SA diabetes 10/10/23 02/06/25 History subcutaneous pen injector (Trulicity) cyanocobalamin (vitamin B-12) 1,000 mcg PO DAILY vitam in 02/13/24 02/08/25 History 1,000 mcg capsule fexofenadine 180 mg tablet 180 mg PO DAILY allergies 0 03/03/24 02/08/25 History (Jez Allergy) propranolol 10 mg tablet 10 mg PO TID blood pressure 30 04/02/24 02/08/25 Rx days #90 tabs spironolactone 50 mg tablet 50 mg PO BID diuretic #30 tabs 07/07/24 02/08/25 Rx furosemide 40 mg tablet 40 mg PO QDAY diuretic 11/0702/09/25 History ferrous gluconate 324 mg (38 mg 324 mg PO TID #90 tabs 11/10/24 02/08/25 Rx iron) tablet famotidine 40 mg tablet 40 mg PO QHS #30 tabs 02/08/25 Rx omeprazole 40 mg capsule,delayed 40 mg PO BID #60 caps 11/21/24 02/08/25 Rx release cholestyramine 4 gram oral powder 4 g PO DAILY 5 02/08/25 History for suspension in a packet (Prevalite) levothyroxine 137 mcg tablet 137 mcg PO DAILY 02/09/25 02/08/25 History (Synthroid) Allergy/AdvReac Type Severity Reaction Status Date / Time adhesive tape Allergy Rash Verified 02/09/25 12:03 Family History Father Colon cancer Brother Cancer bladder Surgical History History of thoracentesis Hx of colonoscopy History of esophagogastroduodenoscopy (EGD) S/P shoulder surgery S/P hysterectomy History of lobectomy of thyroid Social History Smoking Status: Former smoker alcohol intake: current alcohol intake frequency: holidays/special occasions only Review of Systems (Anesthesia) ROS Narrative System reviewed and no additional complaints, except as documented. Physical Exam Const alert, oriented x3 and average body habitus Resp normal respiratory effort, normal air movement and clear to auscultation bilaterally Cardio regular rate, regular rhythm, no murmurs and diaphoretic 02/11/25 1301 <Electronically signed by Adama Karl MD> Date _ Adama Barajas MD Cosigner Signature: Date CC: ~ Signed [facility] Work Phone: [phone] Consult note [facility] Medical Records Department [address] [facility] [place] [address] Anesthesia Postop Eval I 02/11/25 1325 MR#: [id number] Acct: [id number] Name: BARBARA MENESES Rep #:[id number] : 1955 70 From: Tres DYE PCP: Dr. Juan Locke, DO Status:AD M IN Y Race: C Location: [place] [address] 09-16 Anesthesia: Postop Eval I Current Vital Signs Temperature: 97 F Pulse Rate: 85 Blood Pressure: 117/105 Respiratory Rate: 16 Pulse Ox: 97 Oxygen Delivery Method: Room Air Assessment Airway patent: Yes Spontaneous unlabored respirations: Yes Mental status: Awake and Calm nausea: No Vomiting: No Anesthesia Complication: No Fluid Hydration Crystalloid volume administer (ml): 250 Total IV fluid infused: 250 Progress Note Anesthesia document: Postop Eval 1 completed: Yes 02/11/25 1326 PETROLOGY TEACHER> Date _ Tres Flores PETROLOGY TEACHER Cosigner Signature: Date CC: ~ Signed [facility]05-29-2025 Procedure note [facility] Medical Records Department [address] [place] [address] EGD Report MR#: [id number] Acct: [id number] Name: BARBARA MENESES Rep #:[id number] : 1955 70 From: Ronald Zimmer DO PCP: Dr. Juan Locke DO Status:AD M IN Patient Name: Barbara Meneses Procedure Date: 02/11/2025 12:57 PM Date of : 1955 Age: 70 Procedure: Upper GI endoscopy Indications: For therapy of esophageal varices Providers: Ronald Zimmer DO Referring MD: Kwasi Nieves DO Medicines: Monitored Anesthesia Care Patient Profile: This is a 70 year old female. Refer to note in patient chart for documentation of history and physical. Patient has symptoms. Complications: No immediate complications. Procedure: Pre-Anesthesia Assessment: - Prior to the procedure, a History and Physical was performed, and patient medications and allergies were reviewed. The patient is competent. The risks and benefits of the procedure and the sedation options and risks were discussed with the patient. All questions were answered and informed consent was obtained. Patient identification and proposed procedure were verified by the physician in the pre-procedure area. Mental Status Examination: alert and oriented. Airway Examination: normal oropharyngeal airway and neck mobility. Respiratory Examination: clear to auscultation. CV Examination: normal. Prophylactic Antibiotics: The patient does not require prophylactic antibiotics. Prior Anticoagulants: The patient has taken no anticoagulant or antiplatelet agents except for NSAID medication. ASA Grade Assessment: IV - A patient with severe systemic disease that is a constant threat to life. After reviewing the risks and benefits, the patient was deemed in satisfactory condition to undergo the procedure. The anesthesia plan was to use monitored anesthesia care (MAC). Immediately prior to administration of medications, the patient was re-assessed for adequacy to receive sedatives. The heart rate, respiratory rate, oxygen saturations, blood pressure, adequacy of pulmonary ventilation, and response to care were monitored throughout the procedure. The physical status of the patient was re-assessed after the procedure. After obtaining informed consent, the endoscope was passed under direct vision. Throughout the procedure, the patient's blood pressure, pulse, and oxygen saturations were monitored continuously. The Endoscope was introduced through the mouth, and advanced to the second part of duodenum. The upper GI endoscopy was accomplished without difficulty. The patient tolerated the procedure well. Scope In: 1:16:19 PM Scope Out: 1:23:04 PM Total Procedure Duration Time 0 hours 6 minutes 45 seconds Findings: Grade III varices were found in the upper third of the esophagus, in the middle third of the esophagus and in the lower third of the esophagus. They were 20 mm in largest diameter. Three bands were successfully placed with incomplete eradication of varices. There was no bleeding during and at the end of the procedure. Severe portal hypertensive gastropathy was found in the entire examined stomach. No gross lesions were noted in the entire examined duodenum. Impression: - Grade III esophageal varices. Incompletely eradicated. Banded. - Portal hypertensive gastropathy. - No gross lesions in the entire examined duodenum. - No specimens collected. Recommendation: - [facility]. - Full liquid diet today. - Continue present medications. Procedure Code(s): --- Professional --- 71830, Esophagogastroduodenoscopy, flexible, transoral; with band ligation of esophageal/gastric varices CPT copyright 2021 [employer]. All rights reserved. The codes documented in this report are preliminary and upon recreation attendant review may be revised to meet current compliance requirements. Ronald Zimmer DO 02/11/2025 1:26:29 PM This report has been signed electronically. Number of Addenda: 0 Note Initiated On: 02/11/2025 12:57 PM 02/11/25 1326 Date _ Ronald Zimmer DO Cosigner Signature: Date (if indicated) CC: Dr. Juan Locke DO; Ronald Zimmer DO ~ Date Dictated: 02/11/25 1257 Date Transcribed: Application Chemist: RF Signed [facility]05-29-2025 Procedure note [facility] Medical Records Department [address] [place] [id number] Operative Report - CC Letter MR#: [id number] Acct: [id number] Name: BARBARA MEENSES Rep #:[id number] : 1955 70 From: Rnoald Zimmer DO PCP: Dr. Juan Locke DO Status:AD M IN 02/11/2025 Juan Locke [address] [place] [id number] Re : Upper GI endoscopy procedure for Barbara Callie Dear Dr. Locke This procedure was performed on January. My impressions and recommendations are as follows: Impressions : - Grade III esophageal varices. Incompletely eradicated. Banded. - Portal hypertensive gastropathy. - No gross lesions in the entire examined duodenum. - No specimens collected. Recommendations : - [facility]. - Full liquid diet today. - Continue present medications. My findings are described in the full procedure note, which is enclosed. If I can be of further assistance, please feel free to contact me at . Sincerely, Ronald Zimmer DO 02/11/2025 1:26:29 PM This report has been signed electronically. 02/11/25 1326 Date _ Ronald Zimmer DO Cosignarcelia Signature: Date (if indicated) CC: Dr. Kwasi Nieves DO; Dr. Juan Locke DO; Dr. Trisha Iraheta MD ~ Date Dictated: 02/11/25 1257 Date Transcribed: Application Chemist: REBEKA Signed [facility]05-29-2025 Progress note [facility] Medical Records Department [address] [address] Progress Note 02/11/25 1312 MR#: [id number] Acct: [id number] Name: BARBARA MENESES Rep #:[id number] : 1955 70 From: Ronald Zimmer DO PCP: Dr. Juan Locke, DO Status:AD M IN Location: [place] [address] Progress Note Patient has been n.p.o. for upper endoscopy for reevaluation of her esophageal varices. Physical Exam Const alert, oriented x3 and average body habitus Resp normal respiratory effort, normal air movement and clear to auscultation bilaterally Cardio regular rate, regular rhythm, no murmurs and diaphoretic Assessment & Plan Assessment/Plan (1) Pleural effusion on left: PLAN: Plan 69-year-old female with history of MAFLD associated cirrhosis, type 2 diabetes, presents to the ED with concerns regarding worsening shortness of breath and fatigue. She was discovered to have significant anemia with a hemoglobin of 5.6 Metabolic associated fatty liver disease with cirrhosis: -Child Reich score A, MELD-NA: 10 -Compensated cirrhosis with complications of portal hypertension -She will need egd for to look for signs of GI blood loss Acute on chronic anemia Severe anemia -Combination of iron deficiency anemia with pancytopenia due to splenomegaly -Transfuse 1 unit of blood PRBC to maintain Hgb greater than 7 -INR is 1.2, no underlying coagulopathy 02/10/2025-further recommendations to follow after patient undergoes an upper endoscopy. Thank you 02/11/2025-repeat upper endoscopy today further recommendations after procedure. 02/11/25 1312 Ronald Steen Signature (if applicable): CC: ~ Signed [facility]05-29-2025 Consult note [facility] Medical Records Department [address] [place] [address] Pre-Anesthesia Evaluation 02/11/25 1245 MR#: [id number] Acct: [id number] Name: BARBARA MENESES Rep #:[id number] : 1955 70 From: Adama Barajas MD PCP: Dr. Juan Locke, DO Status:AD M IN Y Race: C Location: [place] [address] 09-16 ASA Classification* ASA Classification ASA Classification: 3 (Chronic liver cirrhosis) Assessment & Plan Anesthesia* Anesthesia Assessment Anesthesia Assessment: Discussed sedation and/or anesthesia options, risks, benefits, and alternatives with patient/parents/legal guardian/POA. Questions invited. The patient/parents/legal guardian/POA seems to understand and agrees to proceedwith anesthesia plan. Reviewed the physical assessment, medical history, allergy history and patient home medications list prior to surgery/procedure/anesthetic and documented any changes. Performed airway and anesthesia risk assessments. Anesthesia Type Anesthesia Type: General (Patient had EGD yesterday, did fine. Review chart please. Ozempic ) History Source History Obtained from:: Patient and Chart Anesthesia Focused Assessment* Temperature: 98.2 F Pulse Rate: 81 Blood Pressure: 101/59 Respiratory Rate: 14 Pulse Ox: 92 Airway Assessment Mouth opens: >3 cm Mallampati Score: I Teeth Condition: Chipped/Broken (Patient has a chipped tooth #8.) Neck Range of motion (ROM): Full ROM Focused Labs Anesthesia Preop lab: CBC WBC 3.9 K/mm3 (4.4-11.0) L 02/11/25 05:15 02/11/25 RBC 2.94 M/mm3 (4.2-5.4) L 02/11/25 05:15 02/11/25 Hgb 8.1 g/dL (12.0-15.0) L 02/11/25 05:15 02/11/25 Hct 25.0 % (37-47) L 02/11/25 05:15 02/11/25 Plt Count 75 K/mm3 (150-450) L 02/11/25 05:15 02/11/25 CHEMISTRY Potassium 3.8 mmol/L (3.3-5.1) 02/11/25 05:15 02/11/25 Sodium 140 mmol/L (133-145) 02/11/25 05:15 02/11/25 Magnesium 2.0 mg/dL (1.5-2.2) 02/10/25 03:40 02/10/25 Phosphorus 2.5 mg/dL (2.7-4.5) L 02/10/25 03:40 02/10/25 BUN 17 mg/dL (4-19) 02/11/25 05:15 02/11/25 Creatinine 1.07 mg/dL (0.70-1.20) 02/11/25 05:15 02/11/25 Glucose 151 mg/dL (70-99) H 02/11/25 05:15 02/11/25 POC Glucose 159 mg/dL (74-106) H 11/10/24 11:33 11/10/24 TSH 2.420 uIU/mL (0.358-3.740) 11/08/24 05:27 10/18 12/08 COAG PT 15.8 SECONDS (11.7-14.9) H 02/10/25 03:40 01/15 05/10 Pre-Assessment Diagnosis/Proposed Procedure Planned Operative Procedure(s): Esophagogastroduodenoscopy. Anesthesia History Anesthesia History - reel cutter: Anesthesia History - reel cutter Hx Hospitalization Yes: 02/28/2024 [facility] 08/27/24 08:44 , [facility] Any Problems With Anesthesia Yes: has gotten sick with 02/09/25 20:05 anesthesia in the past Cholinesterase deficiency No 02/09/25 20:05 You/Your Family Experience No 02/09/25 20:05 fever (hyperthermia) with Relationship Recent Exposure to Contagious No 02/09/25 20:05 Disease Does patient have nerve No 02/09/25 20:05 stimulator Patient instructed to have device shut off --Does patient have Pacemaker or ICD? When Was Last Pacemaker Check QUESTION #4 FULL TEXT: You/Your Family Experience fever (hyperthermia) with Anesthesia Last Oral Intake Last Oral intake: Last Oral Intake NPO since 00:01 02/10/25 11:13 Meds taken in AM with sips of No 02/10/25 11:13 water? Meds patient instructed to take am of surgery PONV PONV - reel cutter: PONV - reel cutter Female HX of Motion Sickness HX of N/V After Surgery Non-Smoker Duration of Surgery greater than 60 minutes Number of Risk Factors PONV Score Height & Weight Height & Weight: Anesthesia: Height & Weight Height 5 ft 4 in 02/11/25 10:37 Weight: 85.9 kg 02/11/25 10:37 Body Mass Index (BMI) 32.5 02/09/25 16:59 Respiratory Assessment Respiratory Assessment - reel cutter: Respiratory Tract Infection Hx - reel cutter Hx Respiratory Tract Infection No 02/09/25 20:05 STOP Sleep Apnea STOP Sleep Apnea - reel cutter: STOP Sleep Apnea - reel cutter Hx Hypertension Yes 02/09/25 16:59 Hx Sleep Apnea Yes 02/09/25 16:59 CPAP No 02/09/25 16:59 BIPAP No 02/09/25 16:59 Do you snore loudly (louder than talking or can be heard Do you often feel tired/ fatigued/ sleepy during daytime? Has anyone observed you stop breathing during sleep? STOP Results Positive 02/10/25 15:40 QUESTION #5 FULL TEXT : Do you snore loudly (louder than talking or can be heard through closeddoors)? Tobacco Use History Tobacco Use History - reel cutter: Tobacco Use History - reel cutter Tobacco Use Smoking Status Former smoker 02/09/25 16:59 Hx Tobacco Use No 02/09/25 16:59 Years Smoking Packs Smoked per Day Smoking Cessation Date was No - quit smoking greater 02/09/25 16:59 within the last 15 years than 15 years ago Hx Smoking Cessation Date 09/16/79 02/09/25 16:59 Hx Smoking Cessation Counseling Hematologic Medial History Hematologic Hx - reel cutter: Hematologic Medical Hx - [employer] Hx of Blood Transfusion Yes 02/09/25 16:59 Hx of Transfusion in last 3 Yes 02/09/25 16:59 Months Date of Last Transfusion (if 11/13/24 02/09/25 16:59 within last 3 months) Ever experience any problems No 02/09/25 16:59 with transfusion(s)? Specify any problems Hx of Preganancy in last 3 No 02/09/25 16:59 Months Nurse Filling Out Transfusion [email or web address] 02/09/25 16:59 & Questions: Date: 02/09/25 02/09/25 16:59 Time: 17:04 02/09/25 16:59 Patient unable to answer at this time (ie. confused, unrespo /Reproduction History /Reproductive History - reel cutter: /Reproductive Hx- reel cutter Hx Now Gestational Age (in weeks): EDC: Hx Hx Para Hx Section SAB No 11/09/24 05:49 Active Medications Active Medications: Current Medications Generic Name Dose Route Start Last Admin Trade Name Freq PRN Reason Stop Dose Admin Albuterol Sulfate 2.5 mg 02/09/25 17:08 Albuterol 2.5 Mg/3 Ml Vial.Neb. INHALATION Q4H PRN ALLERGIES Cholestyramine Resin 4 gm 02/10/25 10:00 02/10/25 17:02 Cholestyramine/Sucrose 4 Gm/Packet PO Not Given DAILY AMANDEEP Cyanocobalamin 1,000 mcg 02/10/25 10:00 02/10/25 17:01 Cyanocobalamin 500 Mcg Tablet PO 1,000 mcg DAILY AMANDEEP Administration Duloxetine HCl 60 mg 02/10/25 10:00 02/10/25 17:01 Duloxetine Hcl 60 Mg Capsule PO 60 mg DAILY AMANDEEP Administration Ferrous Gluconate 324 mg 02/09/25 22:00 02/11/25 09:16 Ferrous Gluconate 324 Mg Tablet PO Not Given TIDCM AMANDEEP Furosemide 40 mg 02/10/25 10:00 02/10/25 17:01 Furosemide 40 Mg Tablet PO 40 mg DAILY AMANDEEP Administration Protocol Pantoprazole Sodium 40 mg/ 100 mls @ 330 mls/hr 02/09/25 22:00 02/11/25 09:45 Sodium Chloride IV Infused Q12 AMANDEEP Infusion Sodium Chloride 250 mls @ 15 mls/hr 02/09/25 17:07 IV .[id number] PRN Additional IVPB Infusion Sodium Chloride 250 mls @ 15 mls/hr 02/09/25 17:07 IV .[id number] PRN Saline Flush Lactated Ringer's 1,000 mls @ 15 mls/hr 02/11/25 12:30 02/11/25 12:31 IV 15 mls/hr .Q48H AMANDEEP Administration Levothyroxine Sodium 137 mcg 02/10/25 06:00 02/11/25 05:38 Levothyroxine 137 Mcg Tablet PO 137 mcg DAILY@0600 AMANDEEP Administration Loratadine 10 mg 02/10/25 10:00 02/10/25 17:01 Loratadine 10 Mg Tablet PO 10 mg DAILY AMANDEEP Administration Ondansetron HCl 4 mg 02/09/25 16:59 Ondansetron 4 Mg/2 Ml Vial IV Q8H PRN PRN NAUSEA/VOMITING Propranolol HCl 10 mg 02/09/25 22:00 02/11/25 05:39 Propranolol 10 Mg Tablet PO Not Given TID AMANDEEP Protocol Sodium Chloride 10 - 40 ml 02/09/25 17:07 02/11/25 09:23 0.9% Saline Lock 10 Ml Syringe IV 10 ml UD PRN Administration SALINE FLUSH Spironolactone 50 mg 02/09/25 22:00 02/11/25 09:17 Spironolactone 50 Mg Tablet PO Not Given BID [facility] Protocol PFSH Medical History Ascites Cirrhosis Iron deficiency anemia Lung nodule Hemorrhoids History of diabetes mellitus History of cirrhosis Anemia Pleural effusion on left Exertional dyspnea Chest pain Wears contact lenses Wears glasses Post-menopausal Anxiety Alcohol use Thyroid disease History of renal disease Anemia Back pain History of diverticulitis Gastric reflux Former smoker Sleep apnea Chronic cough S/p nephrectomy Depression Migraines HTN (hypertension) Diabetes Home Medications ?Medication ?Instructions ?Recorded ?Last Taken ?Type duloxetine 60 mg capsule,delayed 60 mg PO DAILY mental health 11/06/17 02/08/25 History release ergocalciferol (vitamin D2) 1,250 50,000 unit PO SA vi tamin 11/06/17 02/06/25 History mcg (50,000 unit) capsule albuterol sulfate 90 mcg/actuation 1 - 2 puff inhalati on PRN PRN 02/20/23 03/16/24 History aerosol inhaler ALLERGIES dulaglutide 0.75 mg/0.5 mL 0.75 mg subcut SA diabetes 10/10/23 02/06/25 History subcutaneous pen injector (Trulicity) cyanocobalamin (vitamin B-12) 1,000 mcg PO DAILY vitam in 02/13/24 02/08/25 History 1,000 mcg capsule fexofenadine 180 mg tablet 180 mg PO DAILY allergies 0 03/03/24 02/08/25 History (Jez Allergy) propranolol 10 mg tablet 10 mg PO TID blood pressure 30 04/02/24 02/08/25 Rx days #90 tabs spironolactone 50 mg tablet 50 mg PO BID diuretic #30 tabs 07/07/24 02/08/25 Rx furosemide 40 mg tablet 40 mg PO QDAY diuretic 11/0702/09/25 History ferrous gluconate 324 mg (38 mg 324 mg PO TID #90 tabs 11/10/24 02/08/25 Rx iron) tablet famotidine 40 mg tablet 40 mg PO QHS #30 tabs 02/08/25 Rx omeprazole 40 mg capsule,delayed 40 mg PO BID #60 caps 11/21/24 02/08/25 Rx release cholestyramine 4 gram oral powder 4 g PO DAILY 5 02/08/25 History for suspension in a packet (Prevalite) levothyroxine 137 mcg tablet 137 mcg PO DAILY 02/09/25 02/08/25 History (Synthroid) Allergy/AdvReac Type Severity Reaction Status Date / Time adhesive tape Allergy Rash Verified 02/09/25 12:03 Family History Father Colon cancer Brother Cancer bladder Surgical History History of thoracentesis Hx of colonoscopy History of esophagogastroduodenoscopy (EGD) S/P shoulder surgery S/P hysterectomy History of lobectomy of thyroid Social History Smoking Status: Former smoker alcohol intake: current alcohol intake frequency: holidays/special occasions only Review of Systems (Anesthesia) ROS Narrative System reviewed and no additional complaints, except as documented. Physical Exam Const alert, oriented x3 and average body habitus Resp normal respiratory effort, normal air movement and clear to auscultation bilaterally Cardio regular rate, regular rhythm, no murmurs and diaphoretic 02/11/25 1301 > Date _ Adama Barajas MD Cosigner Signature: Date CC: ~ Signed [facility]05-29-2025 Consult note Author Ronald Friend [facility] Note Date/Time February 11, 2025 8:46a m [facility] Medical Records Department [address] [place] [address] Consultation - GI 02/09/25 1888 MR#: [id number] Acct: [id number] Name: BARBARA MENESES Rep #:[id number] : 1955 70 From: Ronald Friend DO PCP: Dr. Juan Locke, DO Status:AD M IN Location: [place] [address] HPI Consult Data Date of Consult: 02/09/25 HPI Narrative Reason for Consultation: Anemia HPI Narrative: BARBARA MENESES is a 70-year-old female who is known to the GI service secondary to history of Hilario cirrhosis complicated by history of ascites status post paracentesis, upper GI bleed portal gastropathy intermittent jaundice, pancytopenia. She recently underwent video capsule endoscopy to look for duodenal varices and any other sign of GI bleeding secondary to persistent anemia. No signs of acute GI bleed were seen. She comes to the hospital today with complaints of black tarry stools for the last 3 to 4 days, feeling weak and lightheaded. She is also seen bright red blood. She denies any nausea or vomiting. She has a history of known varices. Taking no anticoagulants. She states she feels like she probably needs anotherblood transfusion. 02/09/25 12:11: WBC 6.7, RBC 2.14 L, Hgb 5.2 L*, Hct 17.5 L, MCV 81.8, MCH 24.3 L, MCHC 29.7 L, RDW Std Deviation 52.7 H, RDW Coeff of Cornelio 17.8 H, Plt Count 183, MPV 11.3, Immature Gran % (Auto) 0.300, Neut % (Auto) 72.5 H, Lymph % (Auto) 16.5 L, [place] % (Auto) 9.1, Eos % (Auto) 1.5, Baso % (Auto) 0.1, Absolute Neuts (auto) 4.9, Absolute Lymphs (auto) 1.11, Nucleated RBC % 0, Sodium 137, Potassium 3.8, Chloride 105, Carbon Dioxide 17.0 L, Anion Gap 14, BUN 24 H, Creatinine 1.10, Estim Creat Clear Calc 50.49, Est GFR (MDRD) Non-Af 54 L, BUN/Creatinine Ratio 21.7 H, Glucose 203 H, Calcium 9.4, Total Bilirubin 0.85, AST 20, ALT 13, Alkaline Phosphatase 166 H, Total Protein 5.4 L, Albumin 3.4, Globulin 2.1 L, Albumin/Globulin Ratio 1.6, Blood Type A POSITIVE, Antibody Screen POSITIVE, Antibody Identification ANTI-E, Crossmatch See Detail 02/09/25 12:56: PT 15.5 H, INR 1.2, APTT 24.8 Her current MELD is 12 and she has a child Reich class B [facility] Medical History Ascites Cirrhosis Iron deficiency anemia Lung nodule Hemorrhoids History of diabetes mellitus History of cirrhosis Anemia Pleural effusion on left Exertional dyspnea Chest pain Wears contact lenses Wears glasses Post-menopausal Anxiety Alcohol use Thyroid disease History of renal disease Anemia Back pain History of diverticulitis Gastric reflux Former smoker Sleep apnea Chronic cough S/p nephrectomy Depression Migraines HTN (hypertension) Diabetes Home Medications ?Medication ?Instructions ?Recorded ?Last Taken ?Type duloxetine 60 mg capsule,delayed 60 mg PO DAILY mental health 11/06/17 02/08/25 History release ergocalciferol (vitamin D2) 1,250 50,000 unit PO SA vi tamin 11/06/17 02/06/25 History mcg (50,000 unit) capsule albuterol sulfate 90 mcg/actuation 1 - 2 puff inhalati on PRN PRN 02/20/23 03/16/24 History aerosol inhaler ALLERGIES dulaglutide 0.75 mg/0.5 mL 0.75 mg subcut SA diabetes 10/10/23 02/06/25 History subcutaneous pen injector (Trulicity) cyanocobalamin (vitamin B-12) 1,000 mcg PO DAILY vitam in 02/13/24 02/08/25 History 1,000 mcg capsule fexofenadine 180 mg tablet 180 mg PO DAILY allergies 0 03/03/24 02/08/25 History (Jez Allergy) propranolol 10 mg tablet 10 mg PO TID blood pressure 30 04/02/24 02/08/25 Rx days #90 tabs spironolactone 50 mg tablet 50 mg PO BID diuretic #30 tabs 07/07/24 02/08/25 Rx furosemide 40 mg tablet 40 mg PO QDAY diuretic 11/0702/09/25 History ferrous gluconate 324 mg (38 mg 324 mg PO TID #90 tabs 11/10/24 02/08/25 Rx iron) tablet famotidine 40 mg tablet 40 mg PO QHS #30 tabs 02/08/25 Rx omeprazole 40 mg capsule,delayed 40 mg PO BID #60 caps 11/21/24 02/08/25 Rx release cholestyramine 4 gram oral powder 4 g PO DAILY 5 02/08/25 History for suspension in a packet (Prevalite) levothyroxine 137 mcg tablet 137 mcg PO DAILY 02/09/25 02/08/25 History (Synthroid) Allergy/AdvReac Type Severity Reaction Status Date / Time adhesive tape Allergy Rash Verified 02/09/25 12:03 Family History Father Colon cancer Brother Cancer bladder Surgical History History of thoracentesis Hx of colonoscopy History of esophagogastroduodenoscopy (EGD) S/P shoulder surgery S/P hysterectomy History of lobectomy of thyroid Social History Smoking Status: Former smoker alcohol intake: current alcohol intake frequency: holidays/special occasions only ROS Constitutional Constitutional: Denies fatigue, fever(s), poor appetite, weight gain or weight loss Gastrointestinal Gastrointestinal: Denies belching, bloating, change in bowel habits, change in stool character, chewing difficulty, coffee ground emesis, constipation, cramping, diarrhea, dyspepsia, dysphagia, early satiety, excessive flatus, fecalincontinence, heartburn, hematemesis, hematochezia, hemorrhoids, loose stools, melena, nausea, odynophagia, rectal bleeding, tenesmus, vomiting or weight changes Physical Exam Const alert, oriented x3, no apparent distress and healthy appearing General Appearance: cooperative GI normal to inspection, nondistended, normoactive bowel sounds, soft to palpation,non-tender and non-distended Percussion: normal to percussion Rectal Exam: deferred Lab / Micro Data 02/09/25 12:11 02/09/25 12:11 Labs: Laboratory Results - last 24 hr 02/09/25 12:11: WBC 6.7, RBC 2.14 L, Hgb 5.2 L*, Hct 17.5 L, MCV 81.8, MCH 24.3 L, MCHC 29.7 L, RDW Std Deviation 52.7 H, RDW Coeff of Cornelio 17.8 H, Plt Count 183, MPV 11.3, Immature Gran % (Auto) 0.300, Neut % (Auto) 72.5 H, Lymph % (Auto) 16.5 L, [place] % (Auto) 9.1, Eos % (Auto) 1.5, Baso % (Auto) 0.1, Absolute Neuts (auto) 4.9, Absolute Lymphs (auto) 1.11, Nucleated RBC % 0, Sodium 137, Potassium 3.8, Chloride 105, Carbon Dioxide 17.0 L, Anion Gap 14, BUN 24 H, Creatinine 1.10, Estim Creat Clear Calc 50.49, Est GFR (MDRD) Non-Af 54 L, BUN/Creatinine Ratio 21.7 H, Glucose 203 H, Calcium 9.4, Total Bilirubin 0.85, AST 20, ALT 13, Alkaline Phosphatase 166 H, Total Protein 5.4 L, Albumin 3.4, Globulin 2.1 L, Albumin/Globulin Ratio 1.6, Blood Type A POSITIVE, Antibody Screen POSITIVE, Antibody Identification ANTI-E, Crossmatch See Detail 02/09/25 12:56: PT 15.5 H, INR 1.2, APTT 24.8 Rhythm Strip Rhythm Strip: Sinus Tach Rate: 102 Ectopy: None Assessment & Plan Assessment/Plan (1) Pleural effusion on left: PLAN: Plan 69-year-old female with history of MAFLD associated cirrhosis, type 2 diabetes, presents to the ED with concerns regarding worsening shortness of breath and fatigue. She was discovered to have significant anemia with a hemoglobin of 5.6 Metabolic associated fatty liver disease with cirrhosis: -Child Reich score A, MELD-NA: 10 -Compensated cirrhosis with complications of portal hypertension -She will need egd for to look for signs of GI blood loss Acute on chronic anemia Severe anemia -Combination of iron deficiency anemia with pancytopenia due to splenomegaly -Transfuse 1 unit of blood PRBC to maintain Hgb greater than 7 -INR is 1.2, no underlying coagulopathy Charges/Coding Visit Charges Inpatient E&M: 22099 Init Hosp L3 02/11/25 0846 <Electronically signed by Ronald Zimmer DO> Cosigner Signature (if applicable): CC: Dr. Kwasi Nieves, ; Dr. Juan Locke DO~ Signed [facility] Work Phone: [phone] 610-291505-29-2025 Consult note [facility] Medical Records Department [address] [place] [address] Consultation - GI 02/09/25 1745 MR#: [id number] Acct: [id number] Name: BARBARA MENESES Rep #:[id number] : 1955 70 From: Ronald Zimmer DO PCP: Dr. Juan Locke DO Status:AD M IN [facility] HPI Consult Data Date of Consult: 02/09/25 HPI Narrative Reason for Consultation: Anemia HPI Narrative: BARBARA MENESES, is a 70-year-old female who is known to the GI service secondary to history of Hilario cirrhosis complicated by history of ascites status post paracentesis, upper GI bleed portal gastropathy intermittent jaundice, pancytopenia. She recently underwent video capsule endoscopy to look for duodenal varices and any other sign of GI bleeding secondary to persistent anemia. No signs of acute GI bleed were seen. She comes to the hospital today with complaints of black tarry stools for the last 3 to 4 days, feeling weak and lightheaded. She is also seen bright red blood. She denies any nausea or vomiting. Shehas a history of known varices. Taking no anticoagulants. She states she feels like she probably needs anotherblood transfusion. 02/09/25 12:11: WBC 6.7, RBC 2.14 L, Hgb 5.2 L*, Hct 17.5 L, MCV 81.8, MCH 24.3 L, MCHC 29.7 L, RDWStd Deviation 52.7 H, RDW Coeff of Cornelio 17.8 H, Plt Count 183, MPV 11.3, Immature Gran % (Auto) 0.300, Neut % (Auto) 72.5 H, Lymph % (Auto) 16.5 L, [place] % (Auto) 9.1, Eos % (Auto) 1.5, Baso % (Auto) 0.1, Absolute Neuts (auto) 4.9, Absolute Lymphs (auto) 1.11, Nucleated RBC % 0, Sodium 137, Potassium3.8, Chloride 105, Carbon Dioxide 17.0 L, Anion Gap 14, BUN 24 H, Creatinine 1.10, Estim Creat Clear Calc 50.49, Est GFR (MDRD) Non-Af 54 L, BUN/Creatinine Ratio 21.7 H, Glucose 203 H, Calcium 9.4, Total Bilirubin 0.85, AST 20, ALT 13, Alkaline Phosphatase 166 H, Total Protein 5.4 L, Albumin 3.4, Gl obulin 2.1 L, Albumin/Globulin Ratio 1.6, Blood Type A POSITIVE, Antibody Screen POSITIVE, AntibodyIdentification ANTI-E, Crossmatch See Detail 02/09/25 12:56: PT 15.5 H, INR 1.2, APTT 24.8 Her current MELD is 12 and she has a child Reich class B [facility] Medical History Ascites Cirrhosis Iron deficiency anemia Lung nodule Hemorrhoids History of diabetes mellitus History of cirrhosis Anemia Pleural effusion on left Exertional dyspnea Chest pain Wears contact lenses Wears glasses Post-menopausal Anxiety Alcohol use Thyroid disease History of renal disease Anemia Back pain History of diverticulitis Gastric reflux Former smoker Sleep apnea Chronic cough S/p nephrectomy Depression Migraines HTN (hypertension) Diabetes Home Medications ?Medication ?Instructions ?Recorded ?Last Taken ?Type duloxetine 60 mg capsule,delayed 60 mg PO DAILY mental health 11/06/17 02/08/25 History release ergocalciferol (vitamin D2) 1,250 50,000 unit PO SA vi tamin 11/06/17 02/06/25 History mcg (50,000 unit) capsule albuterol sulfate 90 mcg/actuation 1 - 2 puff inhalati on PRN PRN 02/20/23 03/16/24 History aerosol inhaler ALLERGIES dulaglutide 0.75 mg/0.5 mL 0.75 mg subcut SA diabetes 10/10/23 02/06/25 History subcutaneous pen injector (Trulicity) cyanocobalamin (vitamin B-12) 1,000 mcg PO DAILY vitam in 02/13/24 02/08/25 History 1,000 mcg capsule fexofenadine 180 mg tablet 180 mg PO DAILY allergies 0 03/03/24 02/08/25 History (Jez Allergy) propranolol 10 mg tablet 10 mg PO TID blood pressure 30 04/02/24 02/08/25 Rx days #90 tabs spironolactone 50 mg tablet 50 mg PO BID diuretic #30 tabs 07/07/24 02/08/25 Rx furosemide 40 mg tablet 40 mg PO QDAY diuretic 11/0702/09/25 History ferrous gluconate 324 mg (38 mg 324 mg PO TID #90 tabs 11/10/24 02/08/25 Rx iron) tablet famotidine 40 mg tablet 40 mg PO QHS #30 tabs 02/08/25 Rx omeprazole 40 mg capsule,delayed 40 mg PO BID #60 caps 11/21/24 02/08/25 Rx release cholestyramine 4 gram oral powder 4 g PO DAILY 5 02/08/25 History for suspension in a packet (Prevalite) levothyroxine 137 mcg tablet 137 mcg PO DAILY 02/09/25 02/08/25 History (Synthroid) Allergy/AdvReac Type Severity Reaction Status Date / Time adhesive tape Allergy Rash Verified 02/09/25 12:03 Family History Father Colon cancer Brother Cancer bladder Surgical History History of thoracentesis Hx of colonoscopy History of esophagogastroduodenoscopy (EGD) S/P shoulder surgery S/P hysterectomy History of lobectomy of thyroid Social History Smoking Status: Former smoker alcohol intake: current alcohol intake frequency: holidays/special occasions only ROS Constitutional Constitutional: Denies fatigue, fever(s), poor appetite, weight gain or weight loss Gastrointestinal Gastrointestinal: Denies belching, bloating, change in bowel habits, change in stool character, chewing difficulty, coffee ground emesis, constipation, cramping, diarrhea, dyspepsia, dysphagia, earlysatiety, excessive flatus, fecalincontinence, heartburn, hematemesis, hematochezia, hemorrhoids, loose stools, melena, nausea, odynophagia, rectal bleeding, tenesmus, vomiting or weight changes Physical Exam Const alert, oriented x3, no apparent distress and healthy appearing General Appearance: cooperative GI normal to inspection, nondistended, normoactive bowel sounds, soft to palpation,non-tender and non-distended Percussion: normal to percussion Rectal Exam: deferred Lab / Micro Data 02/09/25 12:11 02/09/25 12:11 Labs: Laboratory Results - last 24 hr 02/09/25 12:11: WBC 6.7, RBC 2.14 L, Hgb 5.2 L*, Hct 17.5 L, MCV 81.8, MCH 24.3 L, MCHC 29.7 L, RDWStd Deviation 52.7 H, RDW Coeff of Cornelio 17.8 H, Plt Count 183, MPV 11.3, Immature Gran % (Auto) 0.300, Neut % (Auto) 72.5 H, Lymph % (Auto) 16.5 L, [place] % (Auto) 9.1, Eos % (Auto) 1.5, Baso % (Auto) 0.1, Absolute Neuts (auto) 4.9, Absolute Lymphs (auto) 1.11, Nucleated RBC % 0, Sodium 137, Potassium3.8, Chloride 105, Carbon Dioxide 17.0 L, Anion Gap 14, BUN 24 H, Creatinine 1.10, Estim Creat Clear Calc 50.49, Est GFR (MDRD) Non-Af 54 L, BUN/Creatinine Ratio 21.7 H, Glucose 203 H, Calcium 9.4, Total Bilirubin 0.85, AST 20, ALT 13, Alkaline Phosphatase 166 H, Total Protein 5.4 L, Albumin 3.4, Gl obulin 2.1 L, Albumin/Globulin Ratio 1.6, Blood Type A POSITIVE, Antibody Screen POSITIVE, AntibodyIdentification ANTI-E, Crossmatch See Detail 02/09/25 12:56: PT 15.5 H, INR 1.2, APTT 24.8 Rhythm Strip Rhythm Strip: Sinus Tach Rate: 102 Ectopy: None Assessment & Plan Assessment/Plan (1) Pleural effusion on left: PLAN: Plan 69-year-old female with history of MAFLD associated cirrhosis, type 2 diabetes, presents to the ED with concerns regarding worsening shortness of breath and fatigue. She was discovered to have significant anemia with a hemoglobin of 5.6 Metabolic associated fatty liver disease with cirrhosis: -Child Reich score A, MELD-NA: 10 -Compensated cirrhosis with complications of portal hypertension -She will need egd for to look for signs of GI blood loss Acute on chronic anemia Severe anemia -Combination of iron deficiency anemia with pancytopenia due to splenomegaly -Transfuse 1 unit of blood PRBC to maintain Hgb greater than 7 -INR is 1.2, no underlying coagulopathy Charges/Coding Visit Charges Inpatient E&M: 22086 Init Hosp L3 02/11/25 0846 Cosigner Signature (if applicable): CC: Dr. Kwasi Nieves DO; Dr. Juan Locke DO~ Signed [facility]05-28-2025 Consult note Author Leonard Henry [facility] Note Date/Time February 10, 2025 8:46p m [facility] Medical Records Department [address] [place] [address] Anesthesia Postop Eval II 02/10/252045 MR#: [id number] Acct: [id number] Name: BARBARA MENESES Rep #:[id number] : 1955 70 From: Leonard Roy MD PCP: Dr. Juan Locke DO Status:AD M IN Y Race: C Location: [place] [address] 1-1 Anesthesia Postop Eval I Sum Postop Eval Completion status Anesthesia document: Postop Eval 1 completed: Yes Anesthesia Postop Eval I Summary Anesthesia Postop Eval I Summary: Anesthesia Postop Eval I: Assessment Summary Airway patent Yes 02/10/25 15:48 [email or web address] Spontaneous unlabored Yes 02/10/25 15:48 [email or web address] respirations Mental status Awake 02/10/25 15:48 [email or web address] nausea No 02/10/25 15:48 [email or web address] Vomiting No 02/10/25 15:48 [email or web address] Anesthesia Postop Eval I: Fluid Summary Crystalloid volume administer 200 02/10/25 15:48 [email or web address] (ml) Colloids volume administered ( ml) Blood Product volume administered (ml) Total IV fluid infused 200 02/10/25 15:48 [email or web address] Anesthesia Postop Eval I: Summary Notes Anesthesia Complication No 02/10/25 15:48 [email or web address] Anesthesia Complication Comment: Post-operative progress note Anesthesia: Postop Eval II Evaluation Mental status: Awake and Calm Pain Level: 0 nausea: No Vomiting: No Complications Anesthesia Complication: No 02/10/252045 <Electronically signed by Leonard hobbs MD> Date _ Leonard Roy MD Cosigner Signature: Date CC: ~ Signed [facility] Work Phone: [phone] 436-521605-28-2025 Consult note [facility] Medical Records Department [address] [place] [address] Anesthesia Postop Eval II 02/10/252045 MR#: [id number] Acct: [id number] Name: BARBARA MENESES Rep #:[id number] : 1955 70 From: Leonard Roy MD PCP: Dr. Juan Locke, DO Status:AD M IN Y Race: C Location: [place] [address] 1-1 Anesthesia Postop Eval I Sum Postop Eval Completion status Anesthesia document: Postop Eval 1 completed: Yes Anesthesia Postop Eval I Summary Anesthesia Postop Eval I Summary: Anesthesia Postop Eval I: Assessment Summary Airway patent Yes 02/10/25 15:48 [email or web address] Spontaneous unlabored Yes 02/10/25 15:48 [email or web address] respirations Mental status Awake 02/10/25 15:48 [email or web address] nausea No 02/10/25 15:48 [email or web address] Vomiting No 02/10/25 15:48 [email or web address] Anesthesia Postop Eval I: Fluid Summary Crystalloid volume administer 200 02/10/25 15:48 [email or web address] (ml) Colloids volume administered ( ml) Blood Product volume administered (ml) Total IV fluid infused 200 02/10/25 15:48 [email or web address] Anesthesia Postop Eval I: Summary Notes Anesthesia Complication No 02/10/25 15:48 [email or web address] Anesthesia Complication Comment: Post-operative progress note Anesthesia: Postop Eval II Evaluation Mental status: Awake and Calm Pain Level: 0 nausea: No Vomiting: No Complications Anesthesia Complication: No 02/10/252045 anjel SHELLEY> Date _ Leonard Manuela SHELLEY Cosigner Signature: Date CC: ~ Signed [facility]05-28-2025 Progress note Author Trisha [facility] Note Date/Time February 10, 2025 6:01p m [facility] Medical Records Department [address] [place] [address] Progress Note 02/10/25 1430 MR#: [id number] Acct: [id number] Name: BARBARA MENESES Rep #:[id number] : 1955 70 From: Trisha Iraheta MD PCP: Dr. Juan Locke, DO Status:AD M IN Location: [place] [address] Subjective Subjective Patient seen and examined. She was admitted with a complaint of melena stools and concern for GI bleed as well as acute on chronic anemia. She still complainsof some melena stools overnight and this morning. She denies any abdominal pain.Review of systems is otherwise negative. Objective Data Objective Data Vital Signs: Vital Signs Temp Pulse Resp BP Pulse Ox O2 Del Method 99.2 F H 101 H 17 96/66 98 Room Air 02/10/25 14:10 02/10/25 14:10 02/10/25 14:10 02/10/25 14:10 02/10/25 14:10 02/10/25 14:15 Oxygen Delivery Method Room Air Weight: 189 lb 6.033 oz Body Mass Index (BMI) 32.5 Intake & Output: Intake and Output for Last 24 Hours 02/08/25 02/09/25 02/10/25 23:59 23:59 23:59 Intake Total 860 / 860 900 / 900 Output Total 0 / 0 Balance 860 / 860 900 / 900 Lab / Micro Data 02/10/25 09:42 02/10/25 03:40 Labs: Laboratory Results - last 24 hr 02/09/25 12:11: Antibody Screen POSITIVE, Antibody Identification ANTI-E, Crossmatch See Detail 02/09/25 12:11: Crossmatch See Detail 02/09/25 17:25: Hgb 5.2 L*, Hct 18.2 L 02/10/25 03:40: WBC 4.2 L, RBC 2.33 L, Hgb 6.1 L, Hct 19.4 L, MCV 83.3, MCH 26.2L, MCHC 31.4 L D, RDW Std Deviation 48.9 H, RDW Coeff of Cornelio 16.1 H, Plt Count 103 L, MPV 10.5, Immature Gran % (Auto) 0.200, Neut % (Auto) 59.2, Lymph % (Auto) 25.6, [place] % (Auto) 11.2 H, Eos % (Auto) 3.3, Baso % (Auto) 0.5, AbsoluteNeuts (auto) 2.5, Absolute Lymphs (auto) 1.07, Nucleated RBC % 0.7, PT 15.8 H, INR 1.2, APTT 26.0, Sodium 139, Potassium 4.4, Chloride 111 H, Carbon Dioxide 20.3 L, Anion Gap 8, BUN 24 H, Creatinine 0.98, Estim Creat Clear Calc 55.84, Est GFR (MDRD) Non-Af 62, BUN/Creatinine Ratio 24.7 H, Glucose 196 H, [id number] 6.7 H, Calcium 8.5, Phosphorus 2.5 L, Magnesium 2.0, Total Bilirubin 2.67 H,Direct Bilirubin 0.91 H, AST 16, ALT 11, Alkaline Phosphatase 141 H, Total Protein 4.7 L, Albumin 3.0 L, Globulin 1.7 L, Albumin/Globulin Ratio 1.7 02/10/25 09:42: Hgb 6.3 L, Hct 20.4 L Rhythm Strip Rhythm Strip: Sinus Tach Rate: 102 Ectopy: None Physical Exam Const alert, oriented x3, no apparent distress and well nourished General Appearance: cooperative HEENT normocephalic, head/scalp atraumatic, moist oral mucous membranes, oropharynx normal and gingiva normal Eyes PERRL and EOMs intact bilaterally Neck no lymphadenopathy and supple Lymph Lymphatic: no lymphedema noted Resp normal respiratory effort, normal air movement and clear to auscultation bilaterally Cardio regular rate, regular rhythm, S1 normal heart sound, S2 normal heart sound and no murmurs GI normal to inspection, nondistended, normoactive bowel sounds, soft to palpation,non-tender and non-distended Extremity normal capillary refill, no clubbing, cyanosis or edema and no calf tenderness General Extremity: no tenderness to palpation of joints or extremities Skin General Skin Exam: no breakdown Neuro no focal motor deficits and no sensory deficits noted Motor Exam: strength 5/5 throughout Psych thought process normal, cooperative and affect normal Appearance: appropriate Assessment & Plan Assessment/Plan (1) ABLA (acute blood loss anemia): (2) Acute upper gastrointestinal bleeding: PLAN: Plan #Acute on chronic anemia due ot acute Gi bleed * has a history of esophageal varices and portal gastropathy in the setting of cirrhosis * Hb was 5.2 on admission and after 2 units of PRBCs, was 6.1 today. Will transfuse with 2 units of PRBCs. * currently NPO * GI on board. For EGD today * monitor Hb and transfuse to maintain Hb >7 * Her last EGD was on 11/09/2024 which showed grade 2 esophageal varices and portal hypertensive gastropathy * #Chronic liver cirrhosis: on propranolol, furosemide and spironolactone. GI on board #Hypothyroidism: on synthorid DVT prophylaxis: SCDs. No anticoagulation due to GI bleed Charges/Coding Visit Charges Inpatient E&M: 71608 [facility] [place] Hosp 02/10/25 180 <Electronically signed by Trisha Iraheta MD> Trisha Iraheta MD Cosigner Signature (if applicable): CC: ~ Signed [facility] Work Phone: 1(595) 554-996705-28-2025 Progress note [facility] Medical Records Department [address] [place] [address] Progress Note 02/10/25 1430 MR#: [id number] Acct: [id number] Name: BARBARA MENESES Rep #:[id number] : 1955 70 From: Trisha Iraheta MD PCP: Dr. Juan Locke, DO Status:AD M IN Location: [place] [address] Subjective Subjective Patient seen and examined. She was admitted with a complaint of melena stools and concern for GI bleed as well as acute on chronic anemia. She still complainsof some melena stools overnight and this morning. She denies any abdominal pain.Review of systems is otherwise negative. Objective Data Objective Data Vital Signs: Vital Signs Temp Pulse Resp BP Pulse Ox O2 Del Method 99.2 F H 101 H 17 96/66 98 Room Air 02/10/25 14:10 02/10/25 14:10 02/10/25 14:10 02/10/25 14:10 02/10/25 14:10 02/10/25 14:15 Oxygen Delivery Method Room Air Weight: 189 lb 6.033 oz Body Mass Index (BMI) 32.5 Intake & Output: Intake and Output for Last 24 Hours 02/08/25 02/09/25 02/10/25 23:59 23:59 23:59 Intake Total 860 / 860 900 / 900 Output Total 0 / 0 Balance 860 / 860 900 / 900 Lab / Micro Data 02/10/25 09:42 02/10/25 03:40 Labs: Laboratory Results - last 24 hr 02/09/25 12:11: Antibody Screen POSITIVE, Antibody Identification ANTI-E, Crossmatch See Detail 02/09/25 12:11: Crossmatch See Detail 02/09/25 17:25: Hgb 5.2 L*, Hct 18.2 L 02/10/25 03:40: WBC 4.2 L, RBC 2.33 L, Hgb 6.1 L, Hct 19.4 L, MCV 83.3, MCH 26.2L, MCHC 31.4 L D, RDW Std Deviation 48.9 H, RDW Coeff of Cornelio 16.1 H, Plt Count 103 L, MPV 10.5, Immature Gran % (Auto) 0.200, Neut % (Auto) 59.2, Lymph % (Auto) 25.6, [place] % (Auto) 11.2 H, Eos % (Auto) 3.3, Baso % (Auto) 0.5, AbsoluteNeuts (auto) 2.5, Absolute Lymphs (auto) 1.07, Nucleated RBC % 0.7, PT 15.8 H, INR 1.2, APTT 26.0, Sodium 139, Potassium 4.4, Chloride 111 H, Carbon Dioxide 20.3 L, Anion Gap 8, BUN 24 H, Creatinine 0.98, Estim Creat Clear Calc 55.84, Est GFR (MDRD) Non-Af 62, BUN/Creatinine Ratio 24.7 H, Glucose 196 H, [id number] 6.7 H, Calcium 8.5, Phosphorus 2.5 L, Magnesium 2.0, Total Bilirubin 2.67 H,Direct Bilirubin 0.91 H, AST 16, ALT 11, Alkaline Phosphatase 141 H, Total Protein 4.7 L, Albumin 3.0 L, Globulin 1.7 L, Albumin/Globulin Ratio 1.7 02/10/25 09:42: Hgb 6.3 L, Hct 20.4 L Rhythm Strip Rhythm Strip: Sinus Tach Rate: 102 Ectopy: None Physical Exam Const alert, oriented x3, no apparent distress and well nourished General Appearance: cooperative HEENT normocephalic, head/scalp atraumatic, moist oral mucous membranes, oropharynx normal and gingiva normal Eyes PERRL and EOMs intact bilaterally Neck no lymphadenopathy and supple Lymph Lymphatic: no lymphedema noted Resp normal respiratory effort, normal air movement and clear to auscultation bilaterally Cardio regular rate, regular rhythm, S1 normal heart sound, S2 normal heart sound and no murmurs GI normal to inspection, nondistended, normoactive bowel sounds, soft to palpation,non-tender and non-distended Extremity normal capillary refill, no clubbing, cyanosis or edema and no calf tenderness General Extremity: no tenderness to palpation of joints or extremities Skin General Skin Exam: no breakdown Neuro no focal motor deficits and no sensory deficits noted Motor Exam: strength 5/5 throughout Psych thought process normal, cooperative and affect normal Appearance: appropriate Assessment & Plan Assessment/Plan (1) ABLA (acute blood loss anemia): (2) Acute upper gastrointestinal bleeding: PLAN: Plan #Acute on chronic anemia due ot acute Gi bleed * has a history of esophageal varices and portal gastropathy in the setting of cirrhosis * Hb was 5.2 on admission and after 2 units of PRBCs, was 6.1 today. Will transfuse with 2 units ofPRBCs. * currently NPO * GI on board. For EGD today * monitor Hb and transfuse to maintain Hb >7 * Her last EGD was on 11/09/2024 which showed grade 2 esophageal varices and portal hypertensive gastropathy * #Chronic liver cirrhosis: on propranolol, furosemide and spironolactone. GI on board #Hypothyroidism: on synthorid DVT prophylaxis: SCDs. No anticoagulation due to GI bleed Charges/Coding Visit Charges Inpatient E&M: 08331 [facility] [place] Hosp 02/10/25 1801 Trisha Dodson Signature (if applicable): CC: ~ Signed [facility]05-28-2025 Consult note Author Yrn Corea [facility] Note Date/Time February 10, 2025 3:48p m [facility] Medical Records Department [address] [place] [address] Anesthesia Postop Eval I 02/10/25 1547 MR#: [id number] Acct: [id number] Name: BARBARA MENESES Rep #:[id number] : 1955 70 From: Yrn Corea PCP: Dr. Juan Locke, DO Status:AD M IN Y Race: C Location: [place] [address] 09-16 Anesthesia: Postop Eval I Current Vital Signs Temperature: 97.9 F Pulse Rate: 109 Blood Pressure: 90/49 Respiratory Rate: 18 Pulse Ox: 96 Oxygen Delivery Method: Room Air Assessment Airway patent: Yes Spontaneous unlabored respirations: Yes Mental status: Awake nausea: No Vomiting: No Anesthesia Complication: No Fluid Hydration Crystalloid volume administer (ml): 200 Total IV fluid infused: 200 Progress Note Anesthesia document: Postop Eval 1 completed: Yes 02/10/25 1548 <Electronically signed by Yrn Corea > Date _ Yrn Dodson Signature: Date CC: ~ Signed [facility] Work Phone: [phone]) 716-724805-28-2025 Progress note Author Ronald Zimmer [facility] Note Date/Time February 10, 2025 3:10p m [facility] Medical Records Department [address] [place] [address] Progress Note 02/10/25 1509 MR#: [id number] Acct: [id number] Name: BARBARA MENESES Rep #:[id number] : 1955 70 From: Ronald Zimmer DO PCP: Dr. Juan Locke, DO Status:AD M IN Location: [place] [address] Progress Note The patient has been n.p.o. for upper endoscopy. All questions concerns answered prior to procedure. Physical Exam Const alert, oriented x3, no apparent distress and well nourished General Appearance: cooperative HEENT normocephalic, head/scalp atraumatic, moist oral mucous membranes, oropharynx normal and gingiva normal Eyes PERRL and EOMs intact bilaterally Neck no lymphadenopathy and supple Lymph Lymphatic: no lymphedema noted Resp normal respiratory effort, normal air movement and clear to auscultation bilaterally Cardio regular rate, regular rhythm, S1 normal heart sound, S2 normal heart sound and no murmurs GI normal to inspection, nondistended, normoactive bowel sounds, soft to palpation,non-tender and non-distended Extremity normal capillary refill, no clubbing, cyanosis or edema and no calf tenderness General Extremity: no tenderness to palpation of joints or extremities Skin General Skin Exam: no breakdown Neuro no focal motor deficits and no sensory deficits noted Motor Exam: strength 5/5 throughout Psych thought process normal, cooperative and affect normal Appearance: appropriate Assessment & Plan Assessment/Plan (1) Pleural effusion on left: PLAN: Plan 69-year-old female with history of MAFLD associated cirrhosis, type 2 diabetes, presents to the ED with concerns regarding worsening shortness of breath and fatigue. She was discovered to have significant anemia with a hemoglobin of 5.6 Metabolic associated fatty liver disease with cirrhosis: -Child Reich score A, MELD-NA: 10 -Compensated cirrhosis with complications of portal hypertension -She will need egd for to look for signs of GI blood loss Acute on chronic anemia Severe anemia -Combination of iron deficiency anemia with pancytopenia due to splenomegaly -Transfuse 1 unit of blood PRBC to maintain Hgb greater than 7 -INR is 1.2, no underlying coagulopathy 02/10/2025-further recommendations to follow after patient undergoes an upper endoscopy. Thank you 02/10/25 1510 <Electronically signed by Ronald Zimmer DO> Ronald Zimmer DO Cosigner Signature (if applicable): CC: ~ Signed [facility] Work Phone: [phone]) 581-116405-28-2025 Consult note Author Leonard Roy [facility] Note Date/Time February 10, 2025 2:15p m [facility] Medical Records Department [address] [facility] [place] [address] Pre-Anesthesia Evaluation 02/10/25 1407 MR#: [id number] Acct: [id number] Name: BARBARA MENESES Rep #:[id number] : 1955 70 From: Leonard Roy MD PCP: Dr. Juan Locke, Status:AD M IN Y Race: C Location: [place] [address] 1-1 ASA Classification* ASA Classification ASA Classification: 3 and E Assessment & Plan Anesthesia* Anesthesia Assessment Anesthesia Assessment: Discussed sedation and/or anesthesia options, risks, benefits, and alternatives with patient/parents/legal guardian/POA. Questions invited. The patient/parents/legal guardian/POA seems to understand and agrees to proceedwith anesthesia plan. Reviewed the physical assessment, medical history, allergy history and patient home medications list prior to surgery/procedure/anesthetic and documented any changes. Performed airway and anesthesia risk assessments. Anesthesia Type Anesthesia Type: MAC History Source History Obtained from:: Patient and Chart Anesthesia Focused Assessment* Temperature: 99.2 F Pulse Rate: 101 Blood Pressure: 96/66 Respiratory Rate: 17 Pulse Ox: 98 Oxygen Delivery Method: Room Air Airway Assessment Mouth opens: >3 cm Mallampati Score: I Teeth Condition: Chipped/Broken (Patient has a chipped tooth #8.) Neck Range of motion (ROM): Full ROM Focused Labs Anesthesia Preop lab: CBC WBC 4.2 K/mm3 (4.4-11.0) L 02/10/25 03:40 02/10/25 RBC 2.33 M/mm3 (4.2-5.4) L 02/10/25 03:40 02/10/25 Hgb 6.3 g/dL (12.0-15.0) L 02/10/25 09:42 02/10/25 Hct 20.4 % (37-47) L 02/10/25 09:42 02/10/25 Plt Count 103 K/mm3 (150-450) L 02/10/25 03:40 02/10/25 CHEMISTRY Potassium 4.4 mmol/L (3.3-5.1) 02/10/25 03:40 02/10/25 Sodium 139 mmol/L (133-145) 02/10/25 03:40 02/10/25 Magnesium 2.0 mg/dL (1.5-2.2) 02/10/25 03:40 02/10/25 Phosphorus 2.5 mg/dL (2.7-4.5) L 02/10/25 03:40 02/10/25 BUN 24 mg/dL (4-19) H 02/10/25 03:40 02/10/25 Creatinine 0.98 mg/dL (0.70-1.20) 02/10/25 03:40 02/10/25 Glucose 196 mg/dL (70-99) H 02/10/25 03:40 02/10/25 POC Glucose 159 mg/dL (74-106) H 11/10/24 11:33 11/10/24 TSH 2.420 uIU/mL (0.358-3.740) 11/08/24 05:27 10/18 12/08 COAG PT 15.8 SECONDS (11.7-14.9) H 02/10/25 03:40 01/15 05/10 Pre-Assessment Diagnosis/Proposed Procedure Planned Operative Procedure(s): Esophagogastroduodenoscopy. Anesthesia History Anesthesia History - reel cutter: Anesthesia History - reel cutter Hx Hospitalization Yes: 02/28/2024 [facility] 08/27/24 08:44 , [facility] Any Problems With Anesthesia Yes: PONV 02/09/25 20:05 Cholinesterase deficiency No 02/09/25 20:05 You/Your Family Experience No 02/09/25 20:05 fever (hyperthermia) with Relationship Recent Exposure to Contagious No 02/09/25 20:05 Disease Does patient have nerve No 02/09/25 20:05 stimulator Patient instructed to have device shut off --Does patient have Pacemaker or ICD? When Was Last Pacemaker Check QUESTION #4 FULL TEXT: You/Your Family Experience fever (hyperthermia) with Anesthesia Last Oral Intake Last Oral intake: Last Oral Intake NPO since 00:01 02/10/25 11:13 Meds taken in AM with sips of No 02/10/25 11:13 water? Meds patient instructed to take am of surgery PONV PONV - reel cutter: PONV - reel cutter Female HX of Motion Sickness HX of N/V After Surgery Non-Smoker Duration of Surgery greater than 60 minutes Number of Risk Factors PONV Score Height & Weight Height & Weight: Anesthesia: Height & Weight Height 5 ft 4 in 02/10/25 11:13 Weight: 85.9 kg 02/09/25 16:59 Body Mass Index (BMI) 32.5 02/09/25 16:59 Respiratory Assessment Respiratory Assessment - reel cutter: Respiratory Tract Infection Hx - reel cutter Hx Respiratory Tract Infection No 02/09/25 20:05 STOP Sleep Apnea STOP Sleep Apnea - reel cutter: STOP Sleep Apnea - reel cutter Hx Hypertension Yes 02/09/25 16:59 Hx Sleep Apnea Yes 02/09/25 16:59 CPAP No 02/09/25 16:59 BIPAP No 02/09/25 16:59 Do you snore loudly (louder than talking or can be heard Do you often feel tired/ fatigued/ sleepy during daytime? Has anyone observed you stop breathing during sleep? STOP Results Positive 02/09/25 16:59 QUESTION #5 FULL TEXT : Do you snore loudly (louder than talking or can be heard through closed doors)? Tobacco Use History Tobacco Use History - reel cutter: Tobacco Use History - reel cutter Tobacco Use Smoking Status Former smoker 02/09/25 16:59 Hx Tobacco Use No 02/09/25 16:59 Years Smoking Packs Smoked per Day Smoking Cessation Date was No - quit smoking greater 02/09/25 16:59 within the last 15 years than 15 years ago Hx Smoking Cessation Date 09/16/79 02/09/25 16:59 Hx Smoking Cessation Counseling Hematologic Medial History Hematologic Hx - reel cutter: Hematologic Medical Hx - [employer] Hx of Blood Transfusion Yes 02/09/25 16:59 Hx of Transfusion in last 3 Yes 02/09/25 16:59 Months Date of Last Transfusion (if 11/13/24 02/09/25 16:59 within last 3 months) Ever experience any problems No 02/09/25 16:59 with transfusion(s)? Specify any problems Hx of Preganancy in last 3 No 02/09/25 16:59 Months Nurse Filling Out Transfusion [email or web address] 02/09/25 16:59 & Questions: Date: 02/09/25 02/09/25 16:59 Time: 17:04 02/09/25 16:59 Patient unable to answer at this time (ie. confused, unrespo /Reproduction History /Reproductive History - reel cutter: /Reproductive Hx- reel cutter Hx Now Gestational Age (in weeks): EDC: Hx Hx Para Hx Section SAB No 11/09/24 05:49 Active Medications Active Medications: Current Medications Generic Name Dose Route Start Last Admin Trade Name Freq PRN Reason Stop Dose Admin Albuterol Sulfate 2.5 mg 02/09/25 17:08 Albuterol 2.5 Mg/3 Ml Vial.Neb. INHALATION Q4H PRN ALLERGIES Cholestyramine Resin 4 gm 02/10/25 10:00 Cholestyramine/Sucrose 4 Gm/Packet PO DAILY AMANDEEP Cyanocobalamin 1,000 mcg 02/10/25 10:00 Cyanocobalamin 500 Mcg Tablet PO DAILY AMANDEEP Duloxetine HCl 60 mg 02/10/25 10:00 Duloxetine Hcl 60 Mg Capsule PO DAILY AMANDEEP Ferrous Gluconate 324 mg 02/09/25 22:00 02/10/25 09:55 Ferrous Gluconate 324 Mg Tablet PO Not Given TIDCM AMANDEEP Furosemide 40 mg 02/10/25 10:00 Furosemide 40 Mg Tablet PO DAILY AMANDEEP Protocol Pantoprazole Sodium 40 mg/ 100 mls @ 330 mls/hr 02/09/25 22:00 02/10/25 10:15 Sodium Chloride IV Infused Q12 AMANDEEP Infusion Sodium Chloride 250 mls @ 15 mls/hr 02/09/25 17:07 IV .[id number] PRN Additional IVPB Infusion Sodium Chloride 250 mls @ 15 mls/hr 02/09/25 17:07 IV .[id number] PRN Saline Flush Levothyroxine Sodium 137 mcg 02/10/25 06:00 02/10/25 06:21 Levothyroxine 137 Mcg Tablet PO Not Given DAILY@0600 [facility] Loratadine 10 mg 02/10/25 10:00 Loratadine 10 Mg Tablet PO DAILY AMANDEEP Ondansetron HCl 4 mg 02/09/25 16:59 Ondansetron 4 Mg/2 Ml Vial IV Q8H PRN PRN NAUSEA/VOMITING Propranolol HCl 10 mg 02/09/25 22:00 02/10/25 06:23 Propranolol 10 Mg Tablet PO Not Given TID [facility] Protocol Sodium Chloride 10 - 40 ml 02/09/25 17:07 0.9% Saline Lock 10 Ml Syringe IV UD PRN SALINE FLUSH Spironolactone 50 mg 02/09/25 22:00 02/10/25 09:56 Spironolactone 50 Mg Tablet PO Not Given BID [facility] Protocol PFSH Medical History Ascites Cirrhosis Iron deficiency anemia Lung nodule Hemorrhoids History of diabetes mellitus History of cirrhosis Anemia Pleural effusion on left Exertional dyspnea Chest pain Wears contact lenses Wears glasses Post-menopausal Anxiety Alcohol use Thyroid disease History of renal disease Anemia Back pain History of diverticulitis Gastric reflux Former smoker Sleep apnea Chronic cough S/p nephrectomy Depression Migraines HTN (hypertension) Diabetes Home Medications ?Medication ?Instructions ?Recorded ?Last Taken ?Type duloxetine 60 mg capsule,delayed 60 mg PO DAILY mental health 11/06/17 02/08/25 History release ergocalciferol (vitamin D2) 1,250 50,000 unit PO SA vi tamin 11/06/17 02/06/25 History mcg (50,000 unit) capsule albuterol sulfate 90 mcg/actuation 1 - 2 puff inhalati on PRN PRN 02/20/2310/09 History aerosol inhaler ALLERGIES dulaglutide 0.75 mg/0.5 mL 0.75 mg subcut SA diabetes 10/10/23 02/06/25 History subcutaneous pen injector (Trulicity) cyanocobalamin (vitamin B-12) 1,000 mcg PO DAILY vitam in 02/13/24 02/08/25 History 1,000 mcg capsule fexofenadine 180 mg tablet 180 mg PO DAILY allergies 0 03/03/24 02/08/25 History (Jez Allergy) propranolol 10 mg tablet 10 mg PO TID blood pressure 30 04/02/24 02/08/25 Rx days #90 tabs spironolactone 50 mg tablet 50 mg PO BID diuretic #30 tabs 07/07/24 02/08/25 Rx furosemide 40 mg tablet 40 mg PO QDAY diuretic 11/0702/09/25 History ferrous gluconate 324 mg (38 mg 324 mg PO TID #90 tabs 11/10/24 02/08/25 Rx iron) tablet famotidine 40 mg tablet 40 mg PO QHS #30 tabs 02/08/25 Rx omeprazole 40 mg capsule,delayed 40 mg PO BID #60 caps 11/21/24 02/08/25 Rx release cholestyramine 4 gram oral powder 4 g PO DAILY 5 02/08/25 History for suspension in a packet (Prevalite) levothyroxine 137 mcg tablet 137 mcg PO DAILY 02/09/25 02/08/25 History (Synthroid) Allergy/AdvReac Type Severity Reaction Status Date / Time adhesive tape Allergy Rash Verified 02/09/25 12:03 Family History Father Colon cancer Brother Cancer bladder Surgical History History of thoracentesis Hx of colonoscopy History of esophagogastroduodenoscopy (EGD) S/P shoulder surgery S/P hysterectomy History of lobectomy of thyroid Social History Smoking Status: Former smoker alcohol intake: current alcohol intake frequency: holidays/special occasions only Review of Systems (Anesthesia) ROS Narrative System reviewed and no additional complaints, except as documented. 02/10/25 9945 <Electronically signed by Leonard hobbs MD> Date _ Leonard Dodson Signature: Date CC: ~ Signed [facility] Work Phone: [phone] 166-838505-28-2025 Procedure note [facility] Medical Records Department [address] [place] [address] EGD Report MR#: [id number] Acct: [id number] Name: BARBARA MENESES Rep #:[id number] : 1955 70 From: Ronald Zimmer DO PCP: Dr. Juan Locke DO Status:AD M IN Patient Name: Barbara Meneses Procedure Date: 02/10/2025 3:11 PM Date of : 1955 Age: 70 Procedure: Upper GI endoscopy Indications: Acute post hemorrhagic anemia, Melena, Recent gastrointestinal bleeding, Suspected upper gastrointestinal bleeding, Esophageal varices, For therapy of esophageal varices Providers: Ronald Zimmer DO Referring MD: Kwasi Nieves DO Medicines: Monitored Anesthesia Care Patient Profile: This is a 70 year old female. Refer to note in patient chart for documentation of history and physical. Patient has symptoms of acute epigastric abdominal pain, acute dyspepsia and acute nausea. Complications: No immediate complications. Procedure: Pre-Anesthesia Assessment: - Prior to the procedure, a History and Physical was performed, and patient medications and allergies were reviewed. The patient is competent. The risks and benefits of the procedure and the sedation options and risks were discussed with the patient. All questions were answered and informed consent was obtained. Patient identification and proposed procedure were verified by the physician in the pre-procedure area. Mental Status Examination: alert and oriented. Airway Examination: normal oropharyngeal airway and neck mobility. Respiratory Examination: clear to auscultation. CV Examination: normal. Prophylactic Antibiotics: The patient does not require prophylactic antibiotics. Prior Anticoagulants: The patient has taken no anticoagulant or antiplatelet agents except for NSAID medication. ASA Grade Assessment: III - A patient with severe systemic disease. After reviewing the risks and benefits, the patient was deemed in satisfactory condition to undergo the procedure. The anesthesia plan was to use monitored anesthesia care (MAC). Immediately prior to administration of medications, the patient was re-assessed for adequacy to receive sedatives. The heart rate, respiratory rate, oxygen saturations, blood pressure, adequacy of pulmonary ventilation, and response to care were monitored throughout the procedure. The physical status of the patient was re-assessed after the procedure. After obtaining informed consent, the endoscope was passed under direct vision. Throughout the procedure, the patient's blood pressure, pulse, and oxygen saturations were monitored continuously. The Endoscope was introduced through the mouth, and advanced to the third part of the duodenum. Small bowel enteroscopy was deemed necessary. The upper GI endoscopy was accomplished without difficulty. The patient tolerated the procedure well. Scope In: 3:23:10 PM Scope Out: 3:32:27 PM Total Procedure Duration Time 0 hours 9 minutes 17 seconds Findings: Grade III varices were found in the middle third of the esophagus and in the lower third of the esophagus. They were 20 mm in largest diameter. Severe portal hypertensive gastropathy was found in the entire examined stomach. Coagulation for hemostasis using heater probe was successful. Estimated blood loss was minimal. Three 5 mm angiodysplastic lesions with bleeding were found in the second portion of the duodenum and in the third portion of the duodenum. Impression: - Grade III esophageal varices. - Portal hypertensive gastropathy. Treated with a heater probe. - Three bleeding angiodysplastic lesions in the duodenum. - No specimens collected. Recommendation: - [facility]. - Clear liquid diet today. - Continue present medications. Procedure Code(s): --- Professional --- 00665, Small intestinal endoscopy, enteroscopy beyond second portion of duodenum, not including ileum; with control of bleeding (eg, injection, bipolar cautery, unipolar cautery, laser, heater probe, stapler, plasma human resources designate) CPT copyright 2021 [employer]. All rights reserved. The codes documented in this report are preliminary and upon recreation attendant review may be revised to meet current compliance requirements. Ronald Zimmer DO 02/10/2025 3:55:37 PM This report has been signed electronically. Number of Addenda: 0 Note Initiated On: 02/10/2025 3:11 PM 02/10/25 1555 Date _ Ronald Zimmer DO Cosigner Signature: Date (if indicated) CC: Dr. Juan Locke DO; Ronald Zimmer DO ~ Date Dictated: 02/10/25 151 Date Transcribed: Application Chemist: RF Signed [facility]05-28-2025 Procedure note [facility] Medical Records Department [address] [place] [address] Operative Report - CC Letter MR#: [id number] Acct: [id number] Name: BARBARA MENESES Rep #:[id number] : 1955 70 From: Ronald Zimmer DO PCP: Dr. Juan Locke DO Status:AD M IN 02/10/2025 Juan Locke [address] [place] [address] Re : Upper GI endoscopy procedure for Barbara Callie Dear Dr. Locke This procedure was performed on Monday, February 10, 2025. My impressions and recommendations are as follows: Impressions : - Grade III esophageal varices. - Portal hypertensive gastropathy. Treated with a heater probe. - Three bleeding angiodysplastic lesions in the duodenum. - No specimens collected. Recommendations : - [facility]. - Clear liquid diet today. - Continue present medications. My findings are described in the full procedure note, which is enclosed. If I can be of further assistance, please feel free to contact me at . Sincerely, Ronald Zimmer DO 02/10/2025 3:55:37 PM This report has been signed electronically. 02/10/251554 Date _ Ronald Zimmer DO Dodson Signature: Date (if indicated) CC: Dr. Kwasi Nieves DO; Dr. Juan Locke DO; Dr. Trisha Iraheta MD ~ Date Dictated: 02/10/25 1511 Date Transcribed: Application Chemist: RF Signed [facility]05-28-2025 Consult note [facility] Medical Records Department [address] [place] [address] Anesthesia Postop Eval I 02/10/251546 MR#: [id number] Acct: [id number] Name: DANIAPADMINIBARBARA COLVIN Rep #:[id number] : 1955 70 From: Yrn Corea PCP: Dr. Juan Locke DO Status:AD M IN Y Race: C Location: [place] [address] 09-16 Anesthesia: Postop Eval I Current Vital Signs Temperature: 97.9 F Pulse Rate: 109 Blood Pressure: 90/49 Respiratory Rate: 18 Pulse Ox: 96 Oxygen Delivery Method: Room Air Assessment Airway patent: Yes Spontaneous unlabored respirations: Yes Mental status: Awake nausea: No Vomiting: No Anesthesia Complication: No Fluid Hydration Crystalloid volume administer (ml): 200 Total IV fluid infused: 200 Progress Note Anesthesia document: Postop Eval 1 completed: Yes 02/10/25 1548 > Date _ Yrn Dodson Signature: Date CC: ~ Signed [facility]05-28-2025 Progress note [facility] Medical Records Department [address] [place] [address] Progress Note 02/10/25 1509 MR#: [id number] Acct: [id number] Name: BARBARA MENESES Rep #:[id number] : 1955 70 From: Ronald Friend DO PCP: Dr. Juan Locke, DO Status:AD M IN Location: [place] [address] Progress Note The patient has been n.p.o. for upper endoscopy. All questions concerns answered prior to procedure. Physical Exam Const alert, oriented x3, no apparent distress and well nourished General Appearance: cooperative HEENT normocephalic, head/scalp atraumatic, moist oral mucous membranes, oropharynx normal and gingiva normal Eyes PERRL and EOMs intact bilaterally Neck no lymphadenopathy and supple Lymph Lymphatic: no lymphedema noted Resp normal respiratory effort, normal air movement and clear to auscultation bilaterally Cardio regular rate, regular rhythm, S1 normal heart sound, S2 normal heart sound and no murmurs GI normal to inspection, nondistended, normoactive bowel sounds, soft to palpation,non-tender and non-distended Extremity normal capillary refill, no clubbing, cyanosis or edema and no calf tenderness General Extremity: no tenderness to palpation of joints or extremities Skin General Skin Exam: no breakdown Neuro no focal motor deficits and no sensory deficits noted Motor Exam: strength 5/5 throughout Psych thought process normal, cooperative and affect normal Appearance: appropriate Assessment & Plan Assessment/Plan (1) Pleural effusion on left: PLAN: Plan 69-year-old female with history of MAFLD associated cirrhosis, type 2 diabetes, presents to the ED with concerns regarding worsening shortness of breath and fatigue. She was discovered to have significant anemia with a hemoglobin of 5.6 Metabolic associated fatty liver disease with cirrhosis: -Child Reich score A, MELD-NA: 10 -Compensated cirrhosis with complications of portal hypertension -She will need egd for to look for signs of GI blood loss Acute on chronic anemia Severe anemia -Combination of iron deficiency anemia with pancytopenia due to splenomegaly -Transfuse 1 unit of blood PRBC to maintain Hgb greater than 7 -INR is 1.2, no underlying coagulopathy 02/10/2025-further recommendations to follow after patient undergoes an upper endoscopy. Thank you 02/10/25 1510 Ronald Friend DO Dodson Signature (if applicable): CC: ~ Signed [facility]05-28-2025 Consult note [facility] Medical Records Department [address] [place] [address] Pre-Anesthesia Evaluation 02/10/25 1407 MR#: [id number] Acct: [id number] Name: BARBARA MENESES Rep #:[id number] : 1955 70 From: Leonard Roy MD PCP: Dr. Juan Locke, DO Status:AD M IN Y Race: C Location: [place] [address] 1-1 ASA Classification* ASA Classification ASA Classification: 3 and E Assessment & Plan Anesthesia* Anesthesia Assessment Anesthesia Assessment: Discussed sedation and/or anesthesia options, risks, benefits, and alternatives with patient/parents/legal guardian/POA. Questions invited. The patient/parents/legal guardian/POA seems to understand and agrees to proceedwith anesthesia plan. Reviewed the physical assessment, medical history, allergy history and patient home medications list prior to surgery/procedure/anesthetic and documented any changes. Performed airway and anesthesia risk assessments. Anesthesia Type Anesthesia Type: MAC History Source History Obtained from:: Patient and Chart Anesthesia Focused Assessment* Temperature: 99.2 F Pulse Rate: 101 Blood Pressure: 96/66 Respiratory Rate: 17 Pulse Ox: 98 Oxygen Delivery Method: Room Air Airway Assessment Mouth opens: >3 cm Mallampati Score: I Teeth Condition: Chipped/Broken (Patient has a chipped tooth #8.) Neck Range of motion (ROM): Full ROM Focused Labs Anesthesia Preop lab: CBC WBC 4.2 K/mm3 (4.4-11.0) L 02/10/25 03:40 02/10/25 RBC 2.33 M/mm3 (4.2-5.4) L 02/10/25 03:40 02/10/25 Hgb 6.3 g/dL (12.0-15.0) L 02/10/25 09:42 02/10/25 Hct 20.4 % (37-47) L 02/10/25 09:42 02/10/25 Plt Count 103 K/mm3 (150-450) L 02/10/25 03:40 02/10/25 CHEMISTRY Potassium 4.4 mmol/L (3.3-5.1) 02/10/25 03:40 02/10/25 Sodium 139 mmol/L (133-145) 02/10/25 03:40 02/10/25 Magnesium 2.0 mg/dL (1.5-2.2) 02/10/25 03:40 02/10/25 Phosphorus 2.5 mg/dL (2.7-4.5) L 02/10/25 03:40 02/10/25 BUN 24 mg/dL (4-19) H 02/10/25 03:40 02/10/25 Creatinine 0.98 mg/dL (0.70-1.20) 02/10/25 03:40 02/10/25 Glucose 196 mg/dL (70-99) H 02/10/25 03:40 02/10/25 POC Glucose 159 mg/dL (74-106) H 11/10/24 11:33 11/10/24 TSH 2.420 uIU/mL (0.358-3.740) 11/08/24 05:27 10/18 12/08 COAG PT 15.8 SECONDS (11.7-14.9) H 02/10/25 03:40 01/15 05/10 Pre-Assessment Diagnosis/Proposed Procedure Planned Operative Procedure(s): Esophagogastroduodenoscopy. Anesthesia History Anesthesia History - reel cutter: Anesthesia History - reel cutter Hx Hospitalization Yes: 02/28/2024 THORACENTISIS 08/27/24 08:44 , [facility] Any Problems With Anesthesia Yes: PONV 02/09/25 20:05 Cholinesterase deficiency No 02/09/25 20:05 You/Your Family Experience No 02/09/25 20:05 fever (hyperthermia) with Relationship Recent Exposure to Contagious No 02/09/25 20:05 Disease Does patient have nerve No 02/09/25 20:05 stimulator Patient instructed to have device shut off --Does patient have Pacemaker or ICD? When Was Last Pacemaker Check QUESTION #4 FULL TEXT: You/Your Family Experience fever (hyperthermia) with Anesthesia Last Oral Intake Last Oral intake: Last Oral Intake NPO since 00:01 02/10/25 11:13 Meds taken in AM with sips of No 02/10/25 11:13 water? Meds patient instructed to take am of surgery PONV PONV - reel cutter: PONV - reel cutter Female HX of Motion Sickness HX of N/V After Surgery Non-Smoker Duration of Surgery greater than 60 minutes Number of Risk Factors PONV Score Height & Weight Height & Weight: Anesthesia: Height & Weight Height 5 ft 4 in 02/10/25 11:13 Weight: 85.9 kg 02/09/25 16:59 Body Mass Index (BMI) 32.5 02/09/25 16:59 Respiratory Assessment Respiratory Assessment - reel cutter: Respiratory Tract Infection Hx - reel cutter Hx Respiratory Tract Infection No 02/09/25 20:05 STOP Sleep Apnea STOP Sleep Apnea - reel cutter: STOP Sleep Apnea - reel cutter Hx Hypertension Yes 02/09/25 16:59 Hx Sleep Apnea Yes 02/09/25 16:59 CPAP No 02/09/25 16:59 BIPAP No 02/09/25 16:59 Do you snore loudly (louder than talking or can be heard Do you often feel tired/ fatigued/ sleepy during daytime? Has anyone observed you stop breathing during sleep? STOP Results Positive 02/09/25 16:59 QUESTION #5 FULL TEXT : Do you snore loudly (louder than talking or can be heard through closeddoors)? Tobacco Use History Tobacco Use History - reel cutter: Tobacco Use History - reel cutter Tobacco Use Smoking Status Former smoker 02/09/25 16:59 Hx Tobacco Use No 02/09/25 16:59 Years Smoking Packs Smoked per Day Smoking Cessation Date was No - quit smoking greater 02/09/25 16:59 within the last 15 years than 15 years ago Hx Smoking Cessation Date 09/16/79 02/09/25 16:59 Hx Smoking Cessation Counseling Hematologic Medial History Hematologic Hx - reel cutter: Hematologic Medical Hx - [employer] Hx of Blood Transfusion Yes 02/09/25 16:59 Hx of Transfusion in last 3 Yes 02/09/25 16:59 Months Date of Last Transfusion (if 11/13/24 02/09/25 16:59 within last 3 months) Ever experience any problems No 02/09/25 16:59 with transfusion(s)? Specify any problems Hx of Preganancy in last 3 No 02/09/25 16:59 Months Nurse Filling Out Transfusion [id number] 02/09/25 16:59 & Questions: Date: 02/09/25 02/09/25 16:59 Time: 17:04 02/09/25 16:59 Patient unable to answer at this time (ie. confused, unrespo /Reproduction History /Reproductive History - reel cutter: /Reproductive Hx- reel cutter Hx Now Gestational Age (in weeks): EDC: Hx Hx Para Hx Section SAB No 11/09/24 05:49 Active Medications Active Medications: Current Medications Generic Name Dose Route Start Last Admin Trade Name Freq PRN Reason Stop Dose Admin Albuterol Sulfate 2.5 mg 02/09/25 17:08 Albuterol 2.5 Mg/3 Ml Vial.Neb. INHALATION Q4H PRN ALLERGIES Cholestyramine Resin 4 gm 02/10/25 10:00 Cholestyramine/Sucrose 4 Gm/Packet PO DAILY AMANDEEP Cyanocobalamin 1,000 mcg 02/10/25 10:00 Cyanocobalamin 500 Mcg Tablet PO DAILY AMANDEEP Duloxetine HCl 60 mg 02/10/25 10:00 Duloxetine Hcl 60 Mg Capsule PO DAILY AMANDEEP Ferrous Gluconate 324 mg 02/09/25 22:00 02/10/25 09:55 Ferrous Gluconate 324 Mg Tablet PO Not Given TIDCM AMANDEEP Furosemide 40 mg 02/10/25 10:00 Furosemide 40 Mg Tablet PO DAILY AMANDEEP Protocol Pantoprazole Sodium 40 mg/ 100 mls @ 330 mls/hr 02/09/25 22:00 02/10/25 10:15 Sodium Chloride IV Infused Q12 AMANDEEP Infusion Sodium Chloride 250 mls @ 15 mls/hr 02/09/25 17:07 IV .[id number] PRN Additional IVPB Infusion Sodium Chloride 250 mls @ 15 mls/hr 02/09/25 17:07 IV .[id number] PRN Saline Flush Levothyroxine Sodium 137 mcg 02/10/25 06:00 02/10/25 06:21 Levothyroxine 137 Mcg Tablet PO Not Given DAILY@0600 AMANDEEP Loratadine 10 mg 02/10/25 10:00 Loratadine 10 Mg Tablet PO DAILY AMANDEEP Ondansetron HCl 4 mg 02/09/25 16:59 Ondansetron 4 Mg/2 Ml Vial IV Q8H PRN PRN NAUSEA/VOMITING Propranolol HCl 10 mg 02/09/25 22:00 02/10/25 06:23 Propranolol 10 Mg Tablet PO Not Given TID [facility] Protocol Sodium Chloride 10 - 40 ml 02/09/25 17:07 0.9% Saline Lock 10 Ml Syringe IV UD PRN SALINE FLUSH Spironolactone 50 mg 02/09/25 22:00 02/10/25 09:56 Spironolactone 50 Mg Tablet PO Not Given BID [facility] Protocol PFSH Medical History Ascites Cirrhosis Iron deficiency anemia Lung nodule Hemorrhoids History of diabetes mellitus History of cirrhosis Anemia Pleural effusion on left Exertional dyspnea Chest pain Wears contact lenses Wears glasses Post-menopausal Anxiety Alcohol use Thyroid disease History of renal disease Anemia Back pain History of diverticulitis Gastric reflux Former smoker Sleep apnea Chronic cough S/p nephrectomy Depression Migraines HTN (hypertension) Diabetes Home Medications ?Medication ?Instructions ?Recorded ?Last Taken ?Type duloxetine 60 mg capsule,delayed 60 mg PO DAILY mental health 11/06/17 02/08/25 History release ergocalciferol (vitamin D2) 1,250 50,000 unit PO SA vi tamin 11/06/17 02/06/25 History mcg (50,000 unit) capsule albuterol sulfate 90 mcg/actuation 1 - 2 puff inhalati on PRN PRN 02/20/2310/09 History aerosol inhaler ALLERGIES dulaglutide 0.75 mg/0.5 mL 0.75 mg subcut SA diabetes 10/10/23 02/06/25 History subcutaneous pen injector (Trulicity) cyanocobalamin (vitamin B-12) 1,000 mcg PO DAILY vitam in 02/13/24 02/08/25 History 1,000 mcg capsule fexofenadine 180 mg tablet 180 mg PO DAILY allergies 0 03/03/24 02/08/25 History (Jez Allergy) propranolol 10 mg tablet 10 mg PO TID blood pressure 30 04/02/24 02/08/25 Rx days #90 tabs spironolactone 50 mg tablet 50 mg PO BID diuretic #30 tabs 07/07/24 02/08/25 Rx furosemide 40 mg tablet 40 mg PO QDAY diuretic 11/0702/09/25 History ferrous gluconate 324 mg (38 mg 324 mg PO TID #90 tabs 11/10/24 02/08/25 Rx iron) tablet famotidine 40 mg tablet 40 mg PO QHS #30 tabs 02/08/25 Rx omeprazole 40 mg capsule,delayed 40 mg PO BID #60 caps 11/21/24 02/08/25 Rx release cholestyramine 4 gram oral powder 4 g PO DAILY 5 02/08/25 History for suspension in a packet (Prevalite) levothyroxine 137 mcg tablet 137 mcg PO DAILY 02/09/25 02/08/25 History (Synthroid) Allergy/AdvReac Type Severity Reaction Status Date / Time adhesive tape Allergy Rash Verified 02/09/25 12:03 Family History Father Colon cancer Brother Cancer bladder Surgical History History of thoracentesis Hx of colonoscopy History of esophagogastroduodenoscopy (EGD) S/P shoulder surgery S/P hysterectomy History of lobectomy of thyroid Social History Smoking Status: Former smoker alcohol intake: current alcohol intake frequency: holidays/special occasions only Review of Systems (Anesthesia) ROS Narrative System reviewed and no additional complaints, except as documented. 02/10/25 1415 anjel SHELLEY> Date _ Leonard Roy MD Cosigner Signature: Date CC: ~ Signed [facility]05-27-2025 History and physical note Author Kwasi Nieves [facility] Note Date/Time February 09, 2025 4:29p [facility] Medical Records Department [address] [place] [address] H&P Exam - Hospitalist 02/09/25 1624 MR#: [id number] Acct: [id number] Name: BARBARA MENESES Rep #:[id number] : 1955 70 From: Kwasi Nieves DO PCP: Dr. Juan Locke, DO Status:AD M IN Location: [place] [address] HPI - General General Date of Admission: 02/09/25 Date of Service: 02/09/25 Chief Complaint: weakness. HPI Narrative BARBARA MENESES, is a 70 F who presents with weakness over the past few days. This is similar feeling that she has felt when she has been anemic before. Presented to the emergency room and hemoglobin was 5.2. Patient notes that she been having melena over the past few days as well. Patient denies any hematochezia nor any hematemesis. She presented to the emergency room and was ordered 2 units of packed red blood cells. Dr. Zimmer, gastroenterology, was contacted and recommend the patient be admitted here and then tentative plans for upper endoscopy on the . Patient did have capsule endoscopy on November 30 that showed no signs of blood loss anemia but did note portal gastropathy. Patient also had EGD performed on November 09 that showed grade 2 varices in the midesophagus, distal esophagus and gastrojejunal junction. Severe portal hypertensive gastropathy throughout the entire stomach. [facility] Medical History Ascites Cirrhosis Iron deficiency anemia Lung nodule Hemorrhoids History of diabetes mellitus History of cirrhosis Anemia Pleural effusion on left Exertional dyspnea Chest pain Wears contact lenses Wears glasses Post-menopausal Anxiety Alcohol use Thyroid disease History of renal disease Anemia Back pain History of diverticulitis Gastric reflux Former smoker Sleep apnea Chronic cough S/p nephrectomy Depression Migraines HTN (hypertension) Diabetes Home Medications ?Medication ?Instructions ?Recorded ?Last Taken ?Type duloxetine 60 mg capsule,delayed 60 mg PO DAILY mental health 11/06/17 02/08/25 History release ergocalciferol (vitamin D2) 1,250 50,000 unit PO SA vi tamin 11/06/17 02/06/25 History mcg (50,000 unit) capsule albuterol sulfate 90 mcg/actuation 1 - 2 puff inhalati on PRN PRN 02/20/23 03/16/24 History aerosol inhaler ALLERGIES dulaglutide 0.75 mg/0.5 mL 0.75 mg subcut SA diabetes 10/10/23 02/06/25 History subcutaneous pen injector (Trulicity) cyanocobalamin (vitamin B-12) 1,000 mcg PO DAILY vitam in 02/13/24 02/08/25 History 1,000 mcg capsule fexofenadine 180 mg tablet 180 mg PO DAILY allergies 0 03/03/24 02/08/25 History (Jez Allergy) propranolol 10 mg tablet 10 mg PO TID blood pressure 30 04/02/24 02/08/25 Rx days #90 tabs spironolactone 50 mg tablet 50 mg PO BID diuretic #30 tabs 07/07/24 02/08/25 Rx furosemide 40 mg tablet 40 mg PO QDAY diuretic 11/0702/09/25 History ferrous gluconate 324 mg (38 mg 324 mg PO TID #90 tabs 11/10/24 02/08/25 Rx iron) tablet famotidine 40 mg tablet 40 mg PO QHS #30 tabs 02/08/25 Rx omeprazole 40 mg capsule,delayed 40 mg PO BID #60 caps 11/21/24 02/08/25 Rx release cholestyramine 4 gram oral powder 4 g PO DAILY 5 02/08/25 History for suspension in a packet (Prevalite) levothyroxine 137 mcg tablet 137 mcg PO DAILY 02/09/25 02/08/25 History (Synthroid) Allergy/AdvReac Type Severity Reaction Status Date / Time adhesive tape Allergy Rash Verified 02/09/25 12:03 Family History Father Colon cancer Brother Cancer bladder Surgical History History of thoracentesis Hx of colonoscopy History of esophagogastroduodenoscopy (EGD) S/P shoulder surgery S/P hysterectomy History of lobectomy of thyroid Social History Smoking Status: Former smoker alcohol intake: current alcohol intake frequency: holidays/special occasions only ROS ROS Narrative All review of systems were negative except as mentioned above in the history of present illness and the other review of systems. Vital Signs Vital Signs Vital Signs: 02/09/25 12:02 02/09/25 12:13 02/09/25 13:26 Temperature 36.6 C 36.8 C Temperature Source Oral Oral Pulse Rate 106 H 81 Pulse Rate [Lying] 104 H Pulse Rate [Sitting (for 1 minute prior to obtaining)] 105 H Pulse Rate [Standing (for 1 minute prior to obtaining)] 109 H Respiratory Rate 16 17 Blood Pressure 128/68 H 122/47 H Blood Pressure [Lying] 110/50 L Blood Pressure [Sitting (for 1 minute prior to obtaining)] 121/43 H Blood Pressure [Standing (for 1 minute prior to obtaining)] 111/50 L Blood Pressure Mean 88 72 Blood Pressure Mean [Lying] 70 Blood Pressure Mean [Sitting (for 1 minute prior to obtaining)] 69 Blood Pressure Mean [Standing (for 1 minute prior to obtaining)] 70 Pulse Ox 100 100 Oxygen Delivery Method Room Air Room Air 02/09/25 14:00 Temperature Temperature Source Pulse Rate 100 Pulse Rate [Lying] Pulse Rate [Sitting (for 1 minute prior to obtaining)] Pulse Rate [Standing (for 1 minute prior to obtaining)] Respiratory Rate Blood Pressure 110/55 L Blood Pressure [Lying] Blood Pressure [Sitting (for 1 minute prior to obtaining)] Blood Pressure [Standing (for 1 minute prior to obtaining)] Blood Pressure Mean 73 Blood Pressure Mean [Lying] Blood Pressure Mean [Sitting (for 1 minute prior to obtaining)] Blood Pressure Mean [Standing (for 1 minute prior to obtaining)] Pulse Ox 98 Oxygen Delivery Method Weight Weight: 88.4 kg Body Mass Index (BMI) 33.4 Physical Exam Narrative - Physical Exam General: Alert, Oriented x3, Cooperative. Up in bed. Nontoxic. Pleasant. HEENT: Atraumatic, PERRLA, EOMI, Normocephalic Oral: Moist Mucosa, No Gingival or Mucosal Lesions/ Ulcerations Neck: Supple, No JVD, Negative Carotid Bruits Lungs: Clear to auscultation, Normal air movement Cardiovascular: Regular rate, Normal S1, Normal S2, No murmurs Abdomen: Bowel Sounds Present, Soft, Non Tender, Non-Distended, No Hepato-splenomegaly Extremities: No clubbing, No cyanosis, No edema, Capillary Refill Less than 3 Seconds Skin: No rashes, No breakdown Musculoskeletal: No Tenderness to Palpation of Joints or Extremities Neurological: Neuro grossly intact Psych/Mental Status: Normal Affect, Appropriate Results Lab / Micro Data Attestation: I reviewed the patient's lab results. 02/09/25 12:11 02/09/25 12:11 Labs: Laboratory Results - last 24 hr 02/09/25 12:11: WBC 6.7, RBC 2.14 L, Hgb 5.2 L*, Hct 17.5 L, MCV 81.8, MCH 24.3 L, MCHC 29.7 L, RDW Std Deviation 52.7 H, RDW Coeff of Cornelio 17.8 H, Plt Count 183, MPV 11.3, Immature Gran % (Auto) 0.300, Neut % (Auto) 72.5 H, Lymph % (Auto) 16.5 L, [place] % (Auto) 9.1, Eos % (Auto) 1.5, Baso % (Auto) 0.1, Absolute Neuts (auto) 4.9, Absolute Lymphs (auto) 1.11, Nucleated RBC % 0, Sodium 137, Potassium 3.8, Chloride 105, Carbon Dioxide 17.0 L, Anion Gap 14, BUN 24 H, Creatinine 1.10, Estim Creat Clear Calc 50.49, Est GFR (MDRD) Non-Af 54 L, BUN/Creatinine Ratio 21.7 H, Glucose 203 H, Calcium 9.4, Total Bilirubin 0.85, AST 20, ALT 13, Alkaline Phosphatase 166 H, Total Protein 5.4 L, Albumin 3.4, Globulin 2.1 L, Albumin/Globulin Ratio 1.6, Blood Type A POSITIVE, Antibody Screen POSITIVE, Antibody Identification ANTI-E 02/09/25 12:56: PT 15.5 H, INR 1.2, APTT 24.8 Rhythm Strip Rhythm Strip: Sinus Tach Rate: 102 Ectopy: None Assessment & Plan Assessment/Plan (1) Acute upper gastrointestinal bleeding: PLAN: Suspected given the patient's previous findings with varices in her esophagus and portal gastropathy. Will put the patient on IV PPI for now and hold her home dose of omeprazole. GI consult with tentative plan for upper endoscopy on the . (2) ABLA (acute blood loss anemia): PLAN: Secondary to GI bleed. Hemoglobin was 5.2. Patient ordered 2 units of packed cells in the emergency room. Will transfuse and monitor hemoglobin serially. PLAN: Plan Chronic conditions * Cirrhosis: Continue with propranolol, furosemide and spironolactone * Hypothyroidism: Continue with levothyroxine VTE prophylaxis with SCDs is chemical prophylaxis contraindicated in light of the anemia. CODE STATUS: Addressed with the patient. Patient wished to be DNR Comfort Care arrest and is okay with short-term intubation. Charges/Coding Visit Charges Inpatient E&M: 42702 Init Hosp L2 02/09/25 1629 <Electronically signed by Kwasi Nieves DO> Cosigner Signature (if applicable): CC: Dr. Kwasi Nieves DO; Dr. Juan Locke DO~ Signed [facility] Work Phone: [phone] Discharge summary Author Yared Peraza [facility] Note Date/Time February 09, 2025 4:11p m [facility] Medical Records Department [address] [place] [address] Emergency Department Summary 02/09/25 MR#: [id number] Acct: [id number] Name: BARBARA MENESES Rep #:[id number] : 1955 70 From: Yared Peraza MD PCP: Dr. Juan Locke DO Status:RE G ER Location: ED HPI HPI - GI History of Present Illness Chief Complaint: GI Bleed Informant: patient and family (Sister) Narrative Narrative: 70-year-old female recently diagnosed with cirrhosis from unknown etiology, she has been having black tarry stools for the last 3 to 4 days, feeling weak and lightheaded when she stands up or exerts herself, no syncope or exertional chestdiscomfort. She is also seen bright red blood whenever she wipes but she is just having melena when she has bowel movements without bright red blood. She denies any nausea or vomiting. She has a history of known varices. Taking no anticoagulants. She states she feels like she probably needs another blood transfusion which she has had before when she felt like this. [facility] Medical History Ascites Cirrhosis Iron deficiency anemia Lung nodule Hemorrhoids History of diabetes mellitus History of cirrhosis Anemia Pleural effusion on left Exertional dyspnea Chest pain Wears contact lenses Wears glasses Post-menopausal Anxiety Alcohol use Thyroid disease History of renal disease Anemia Back pain History of diverticulitis Gastric reflux Former smoker Sleep apnea Chronic cough S/p nephrectomy Depression Migraines HTN (hypertension) Diabetes Home Medications ?Medication ?Instructions ?Recorded ?Last Taken ?Type duloxetine 60 mg capsule,delayed 60 mg PO DAILY mental health 11/06/17 02/08/25 History release ergocalciferol (vitamin D2) 1,250 50,000 unit PO SA vi tamin 11/06/17 02/06/25 History mcg (50,000 unit) capsule albuterol sulfate 90 mcg/actuation 1 - 2 puff inhalati on PRN PRN 02/20/23 03/16/24 History aerosol inhaler ALLERGIES dulaglutide 0.75 mg/0.5 mL 0.75 mg subcut SA diabetes 10/10/23 02/06/25 History subcutaneous pen injector (Trulicity) cyanocobalamin (vitamin B-12) 1,000 mcg PO DAILY vitam in 02/13/24 02/08/25 History 1,000 mcg capsule fexofenadine 180 mg tablet 180 mg PO DAILY allergies 0 03/03/24 02/08/25 History (Jez Allergy) propranolol 10 mg tablet 10 mg PO TID blood pressure 30 04/02/24 02/08/25 Rx days #90 tabs spironolactone 50 mg tablet 50 mg PO BID diuretic #30 tabs 07/07/24 02/08/25 Rx furosemide 40 mg tablet 40 mg PO QDAY diuretic 11/0702/09/25 History ferrous gluconate 324 mg (38 mg 324 mg PO TID #90 tabs 11/10/24 02/08/25 Rx iron) tablet famotidine 40 mg tablet 40 mg PO QHS #30 tabs 02/08/25 Rx omeprazole 40 mg capsule,delayed 40 mg PO BID #60 caps 11/21/24 02/08/25 Rx release cholestyramine 4 gram oral powder 4 g PO DAILY 5 02/08/25 History for suspension in a packet (Prevalite) levothyroxine 137 mcg tablet 137 mcg PO DAILY 02/09/25 02/08/25 History (Synthroid) Allergy/AdvReac Type Severity Reaction Status Date / Time adhesive tape Allergy Rash Verified 02/09/25 12:03 Family History Father Colon cancer Brother Cancer bladder Surgical History History of thoracentesis Hx of colonoscopy History of esophagogastroduodenoscopy (EGD) S/P shoulder surgery S/P hysterectomy History of lobectomy of thyroid Social History Smoking Status: Former smoker alcohol intake: current alcohol intake frequency: holidays/special occasions only ROS ROS ED Constitutional Constitutional ED: Reports fatigue and weakness; Denies chills or fever(s) Eyes Eyes: Denies change in vision or diplopia ENT ENT ED: Denies rhinorrhea or sore throat Cardiovascular Cardiovascular: Reports lightheadedness and orthostatic symptoms; Denies chest pain, palpitations or syncope Respiratory/Chest Respiratory/Chest: Denies cough or dyspnea Gastrointestinal Gastrointestinal: Reports hematochezia and melena; Denies abdominal pain, diarrhea, nausea or vomiting Genitourinary Genitourinary ED: Denies dysuria or hematuria Musculoskeletal Musculoskeletal: Denies back pain or neck pain Integumentary Denies abscess or rash Neurologic Neurologic: Denies headache(s), paresthesias or weakness Psychiatric Psychiatric: Denies anxiety or suicidal thoughts EXAM Physical Exam Const Vital Signs: 02/09/25 12:02 02/09/25 12:13 02/09/25 13:26 Temperature 97.8 F 98.2 F Temperature Source Oral Oral Pulse Rate 106 H 81 Pulse Rate [Lying] 104 H Pulse Rate [Sitting (for 1 minute prior to obtaining)] 105 H Pulse Rate [Standing (for 1 minute prior to obtaining)] 109 H Respiratory Rate 16 17 Blood Pressure 128/68 H 122/47 H Blood Pressure [Lying] 110/50 L Blood Pressure [Sitting (for 1 minute prior to obtaining)] 121/43 H Blood Pressure [Standing (for 1 minute prior to obtaining)] 111/50 L Blood Pressure Mean 88 72 Blood Pressure Mean [Lying] 70 Blood Pressure Mean [Sitting (for 1 minute prior to obtaining)] 69 Blood Pressure Mean [Standing (for 1 minute prior to obtaining)] 70 Pulse Ox 100 100 Oxygen Delivery Method Room Air Room Air 02/09/25 14:00 Temperature Temperature Source Pulse Rate 100 Pulse Rate [Lying] Pulse Rate [Sitting (for 1 minute prior to obtaining)] Pulse Rate [Standing (for 1 minute prior to obtaining)] Respiratory Rate Blood Pressure 110/55 L Blood Pressure [Lying] Blood Pressure [Sitting (for 1 minute prior to obtaining)] Blood Pressure [Standing (for 1 minute prior to obtaining)] Blood Pressure Mean 73 Blood Pressure Mean [Lying] Blood Pressure Mean [Sitting (for 1 minute prior to obtaining)] Blood Pressure Mean [Standing (for 1 minute prior to obtaining)] Pulse Ox 98 Oxygen Delivery Method Positive well nourished and well developed General Appearance ED: well developed and NAD HEENT Reports moist mucous membranes normocephalic and atraumatic Eyes PERRL and EOMs intact bilaterally Neck full ROM and supple Resp normal respiratory effort and clear to auscultation bilaterally Cardio regular rate, regular rhythm and no murmurs Rate: tachycardic GI non-tender and non-distended GI Narrative: On rectal there are several external hemorrhoids, none are tender, none appear to be actively bleeding. On ANTHONY there is no specimen available at this time, noactive bleeding. Auscultation: normoactive bowel sounds Palpation: soft Back/Spine no CVA tenderness General Back: other FROM Extremity normal to inspection General Extremety ED: Negative for edema, pulses abnormal or tenderness General Extremity: Negative for edema or pulses abnormal Neuro oriented x3, CN's II-XII intact bilaterally and no sensory deficits noted Sensorium / Orientation: awake and alert Motor Exam: strength 5/5 throughout Psych mental status grossly normal and thought process normal Skin no rashes or lesions noted and no wounds MDM MDM MDM Narrative Medical decision making narrative: Patient indeed with acute blood loss anemia with a hemoglobin of 5.2. She consented to blood, which was started in the ER. She remained clinically and hemodynamically stable while resting. We did orthostatics officially they were negative even though she is having orthostatic symptoms prior to arrival. Her BUN is not very high, just 24. This is not suggestive of an acute stomach/esophagus bleed and she is not having any vomiting or nausea. I reviewed some old GI notes, EGD results, and recent pill capsule study. She has severe portal venous gastropathy, and grade 2 esophageal varices in the mid and distal esophagus. The pill study showed diffuse enteritis but there is no active bleeding during the study. This was done in November. I spoke with Dr. Saad DIAS. I went over some of the recent outpatient records that I read, he was okay with the patient staying here. Discussed with hospitalist. Currently there was some delay in getting blood transfusion products to the patient because of positive antibodies, requiring more processing on the behalf of the blood bank. History & Record Review Additional record(s) reviewed:: Prior outpatient record Lab Data Attestation: I reviewed the patient's lab results. Labs: Laboratory Results - last 24 hr 02/09/25 02/09/25 12:11 12:56 WBC 6.7 RBC 2.14 L Hgb 5.2 L* Hct 17.5 L MCV 81.8 MCH 24.3 L MCHC 29.7 L RDW Std Deviation 52.7 H RDW Coeff of Cornelio 17.8 H Plt Count 183 MPV 11.3 Immature Gran % (Auto) 0.300 Neut % (Auto) 72.5 H Lymph % (Auto) 16.5 L [place] % (Auto) 9.1 Eos % (Auto) 1.5 Baso % (Auto) 0.1 Absolute Neuts (auto) 4.9 Absolute Lymphs (auto) 1.11 Nucleated RBC % 0 PT 15.5 H INR 1.2 APTT 24.8 Sodium 137 Potassium 3.8 Chloride 105 Carbon Dioxide 17.0 L Anion Gap 14 BUN 24 H Creatinine 1.10 Estim Creat Clear Calc 50.49 Est GFR (MDRD) Non-Af 54 L BUN/Creatinine Ratio 21.7 H Glucose 203 H Calcium 9.4 Total Bilirubin 0.85 AST 20 ALT 13 Alkaline Phosphatase 166 H Total Protein 5.4 L Albumin 3.4 Globulin 2.1 L Albumin/Globulin Ratio 1.6 Blood Type A POSITIVE Antibody Screen POSITIVE Antibody Identification ANTI-E Rhythm Strip Rhythm Strip: Sinus Tach Rate: 102 Ectopy: None EKG Initial EKG: Attestation: I personally reviewed and interpreted this EKG as follows: Interpretation: Sinus Rhythm, No Acute Injury Pattern and Non-Specific ST Changes Management Discussion w/another healthcare provider: Tube Wrapper (Dr. Saad DIAS) Critical Care Time Critical Care Time: Yes Critical care time (excluding procedures): 30-74 minutes (33 min), Including time spent:, Discussing w/Patient &/or Family/[employer] Supervisor, Discussing w/Consultants, Arranging Admission or Transfer and Performing Direct Patient Care at Bedside Discharge Plan Triage Chief Complaint: GI Bleed ED Provider: Yared Peraza Dx/Rx/DC Orders Clinical Impression: ABLA (acute blood loss anemia), Cirrhosis, Esophageal varices, Acute upper gastrointestinal bleeding Prescriptions: No Action Trulicity 0.75 mg/0.5 mL pen injector 0.75 mg subcut SA cyanocobalamin (vitamin B-12) 1,000 mcg capsule 1,000 mcg PO DAILY spironolactone 50 mg tablet 50 mg PO BID Qty: 30 2RF Rx Instructions: Hold if serum POTASSIUM is more than 5.1 famotidine 40 mg tablet 40 mg PO QHS Qty: 30 3RF omeprazole 40 mg capsule,delayed release(DR/EC) 40 mg PO BID Qty: 60 3RF ergocalciferol (vitamin D2) 50,000 UNIT capsule 50,000 unit PO SA duloxetine 60 MG capsule,delayed release(DR/EC) 60 mg PO DAILY albuterol sulfate 90 mcg/actuation HFA aerosol inhaler 1 - 2 puff INHALATION PRN PRN (Reason: ALLERGIES) furosemide 40 mg tablet 40 mg PO QDAY ferrous gluconate 324 mg (38 mg iron) tablet 324 mg PO TID Qty: 90 0RF fexofenadine [Jez Allergy] 180 mg tablet 180 mg PO DAILY propranolol 10 mg Tablet 10 mg PO TID 30 Days Qty: 90 0RF levothyroxine [Synthroid] 137 mcg tablet 137 mcg PO DAILY Prevalite 4 gram powder in packet 4 g PO DAILY Primary Care Provider: Juan Locke Referrals: Juan Locke DO [Primary Care Provider] - Print Language: Swedish Disposition Disposition: Acute Care Hospital [facility] What to do if you have Problems For any increased pain, shortness of breath, bleeding, nausea or vomiting, chestpain, or any unexpected problems, contact your Primary Care Provider. Call [facility] ([phone]) or report to the closest Emergency Room. Call 911 if necessary. 02/09/25 1611 <Electronically signed by Yared Peraza MD> Cosigner Signature (if applicable): CC: Dr. Juan Locke DO ~ Signed [facility] Work Phone: [phone] History and physical note [facility] Medical Records Department [address] [place] [address] H&P Exam - Hospitalist 02/09/25 1624 MR#: [id number] Acct: [id number] Name: BARBARA MENESES Rep #:[id number] : 1955 70 From: Kwasi Nieves DO PCP: Dr. Juan Locke DO Status:AD M IN [facility] HPI - General General Date of Admission: 02/09/25 Date of Service: 02/09/25 Chief Complaint: weakness. HPI Narrative BARBARA MENESES, is a 70 F who presents with weakness over the past few days. This is similar feeling that she has felt when she has been anemic before. Presented to the emergency room and hemoglobin was 5.2. Patient notes that she been having melena over the past few days as well. Patient deniesany hematochezia nor any hematemesis. She presented to the emergency room and was ordered 2 units of packed red blood cells. Dr. Zimmer, gastroenterology, was contacted and recommend the patient be admitted here and then tentative plans for upper endoscopy on the . Patient did have capsule endoscopy on November 30 that showed no signs of blood loss anemia but did note portal gastropathy. Patient also had EGD performed on November 09 that showed grade 2 varices in the midesophagus, distal esophagus and gastrojejunal junction. Severe portal hypertensive gastropathy throughout the entire stomach. [facility] Medical History Ascites Cirrhosis Iron deficiency anemia Lung nodule Hemorrhoids History of diabetes mellitus History of cirrhosis Anemia Pleural effusion on left Exertional dyspnea Chest pain Wears contact lenses Wears glasses Post-menopausal Anxiety Alcohol use Thyroid disease History of renal disease Anemia Back pain History of diverticulitis Gastric reflux Former smoker Sleep apnea Chronic cough S/p nephrectomy Depression Migraines HTN (hypertension) Diabetes Home Medications ?Medication ?Instructions ?Recorded ?Last Taken ?Type duloxetine 60 mg capsule,delayed 60 mg PO DAILY mental health 11/06/17 02/08/25 History release ergocalciferol (vitamin D2) 1,250 50,000 unit PO SA vi tamin 11/06/17 02/06/25 History mcg (50,000 unit) capsule albuterol sulfate 90 mcg/actuation 1 - 2 puff inhalati on PRN PRN 02/20/23 03/16/24 History aerosol inhaler ALLERGIES dulaglutide 0.75 mg/0.5 mL 0.75 mg subcut SA diabetes 10/10/23 02/06/25 History subcutaneous pen injector (Trulicity) cyanocobalamin (vitamin B-12) 1,000 mcg PO DAILY vitam in 02/13/24 02/08/25 History 1,000 mcg capsule fexofenadine 180 mg tablet 180 mg PO DAILY allergies 0 03/03/24 02/08/25 History (Jez Allergy) propranolol 10 mg tablet 10 mg PO TID blood pressure 30 04/02/24 02/08/25 Rx days #90 tabs spironolactone 50 mg tablet 50 mg PO BID diuretic #30 tabs 07/07/24 02/08/25 Rx furosemide 40 mg tablet 40 mg PO QDAY diuretic 11/0702/09/25 History ferrous gluconate 324 mg (38 mg 324 mg PO TID #90 tabs 11/10/24 02/08/25 Rx iron) tablet famotidine 40 mg tablet 40 mg PO QHS #30 tabs 02/08/25 Rx omeprazole 40 mg capsule,delayed 40 mg PO BID #60 caps 11/21/24 02/08/25 Rx release cholestyramine 4 gram oral powder 4 g PO DAILY 5 02/08/25 History for suspension in a packet (Prevalite) levothyroxine 137 mcg tablet 137 mcg PO DAILY 02/09/25 02/08/25 History (Synthroid) Allergy/AdvReac Type Severity Reaction Status Date / Time adhesive tape Allergy Rash Verified 02/09/25 12:03 Family History Father Colon cancer Brother Cancer bladder Surgical History History of thoracentesis Hx of colonoscopy History of esophagogastroduodenoscopy (EGD) S/P shoulder surgery S/P hysterectomy History of lobectomy of thyroid Social History Smoking Status: Former smoker alcohol intake: current alcohol intake frequency: holidays/special occasions only ROS ROS Narrative All review of systems were negative except as mentioned above in the history of present illness andthe other review of systems. Vital Signs Vital Signs Vital Signs: 02/09/25 12:02 02/09/25 12:13 02/09/25 13:26 Temperature 36.6 C 36.8 C Temperature Source Oral Oral Pulse Rate 106 H 81 Pulse Rate [Lying] 104 H Pulse Rate [Sitting (for 1 minute prior to obtaining)] 105 H Pulse Rate [Standing (for 1 minute prior to obtaining)] 109 H Respiratory Rate 16 17 Blood Pressure 128/68 H 122/47 H Blood Pressure [Lying] 110/50 L Blood Pressure [Sitting (for 1 minute prior to obtaining)] 121/43 H Blood Pressure [Standing (for 1 minute prior to obtaining)] 111/50 L Blood Pressure Mean 88 72 Blood Pressure Mean [Lying] 70 Blood Pressure Mean [Sitting (for 1 minute prior to obtaining)] 69 Blood Pressure Mean [Standing (for 1 minute prior to obtaining)] 70 Pulse Ox 100 100 Oxygen Delivery Method Room Air Room Air 02/09/25 14:00 Temperature Temperature Source Pulse Rate 100 Pulse Rate [Lying] Pulse Rate [Sitting (for 1 minute prior to obtaining)] Pulse Rate [Standing (for 1 minute prior to obtaining)] Respiratory Rate Blood Pressure 110/55 L Blood Pressure [Lying] Blood Pressure [Sitting (for 1 minute prior to obtaining)] Blood Pressure [Standing (for 1 minute prior to obtaining)] Blood Pressure Mean 73 Blood Pressure Mean [Lying] Blood Pressure Mean [Sitting (for 1 minute prior to obtaining)] Blood Pressure Mean [Standing (for 1 minute prior to obtaining)] Pulse Ox 98 Oxygen Delivery Method Weight Weight: 88.4 kg Body Mass Index (BMI) 33.4 Physical Exam Narrative - Physical Exam General: Alert, Oriented x3, Cooperative. Up in bed. Nontoxic. Pleasant. HEENT: Atraumatic, PERRLA, EOMI, Normocephalic Oral: Moist Mucosa, No Gingival or Mucosal Lesions/ Ulcerations Neck: Supple, No JVD, Negative Carotid Bruits Lungs: Clear to auscultation, Normal air movement Cardiovascular: Regular rate, Normal S1, Normal S2, No murmurs Abdomen: Bowel Sounds Present, Soft, Non Tender, Non-Distended, No Hepato-splenomegaly Extremities: No clubbing, No cyanosis, No edema, Capillary Refill Less than 3 Seconds Skin: No rashes, No breakdown Musculoskeletal: No Tenderness to Palpation of Joints or Extremities Neurological: Neuro grossly intact Psych/Mental Status: Normal Affect, Appropriate Results Lab / Micro Data Attestation: I reviewed the patient's lab results. 02/09/25 12:11 02/09/25 12:11 Labs: Laboratory Results - last 24 hr 02/09/25 12:11: WBC 6.7, RBC 2.14 L, Hgb 5.2 L*, Hct 17.5 L, MCV 81.8, MCH 24.3 L, MCHC 29.7 L, RDWStd Deviation 52.7 H, RDW Coeff of Cornelio 17.8 H, Plt Count 183, MPV 11.3, Immature Gran % (Auto) 0.300, Neut % (Auto) 72.5 H, Lymph % (Auto) 16.5 L, [place] % (Auto) 9.1, Eos % (Auto) 1.5, Baso % (Auto) 0.1, Absolute Neuts (auto) 4.9, Absolute Lymphs (auto) 1.11, Nucleated RBC % 0, Sodium 137, Potassium3.8, Chloride 105, Carbon Dioxide 17.0 L, Anion Gap 14, BUN 24 H, Creatinine 1.10, Estim Creat Clear Calc 50.49, Est GFR (MDRD) Non-Af 54 L, BUN/Creatinine Ratio 21.7 H, Glucose 203 H, Calcium 9.4, Total Bilirubin 0.85, AST 20, ALT 13, Alkaline Phosphatase 166 H, Total Protein 5.4 L, Albumin 3.4, Gl obulin 2.1 L, Albumin/Globulin Ratio 1.6, Blood Type A POSITIVE, Antibody Screen POSITIVE, AntibodyIdentification ANTI-E 02/09/25 12:56: PT 15.5 H, INR 1.2, APTT 24.8 Rhythm Strip Rhythm Strip: Sinus Tach Rate: 102 Ectopy: None Assessment & Plan Assessment/Plan (1) Acute upper gastrointestinal bleeding: PLAN: Suspected given the patient's previous findings with varices in her esophagus and portal gastropathy. Will put the patient on IV PPI for now and hold her home dose of omeprazole. GI consult with tentative plan for upper endoscopy on the . (2) ABLA (acute blood loss anemia): PLAN: Secondary to GI bleed. Hemoglobin was 5.2. Patient ordered 2 units of packed cells in the emergency room. Will transfuse and monitor hemoglobin serially. PLAN: Plan Chronic conditions * Cirrhosis: Continue with propranolol, furosemide and spironolactone * Hypothyroidism: Continue with levothyroxine VTE prophylaxis with SCDs is chemical prophylaxis contraindicated in light of the anemia. CODE STATUS: Addressed with the patient. Patient wished to be DNR Comfort Care arrest and is okay with short-term intubation. Charges/Coding Visit Charges Inpatient E&M: 35309 Init Hosp L2 02/09/25 5659 Cosigner Signature (if applicable): CC: Dr. Kwasi Nieves DO; Dr. Juan Locke DO~ Signed [facility]05-27-2025 Discharge summary [facility] Medical Records Department [address] [place] [address] Emergency Department Summary 02/09/25 MR#: [id number] Acct: [id number] Name: BARBARA MENESES Rep #:[id number] : 1955 70 From: Yared Peraza MD PCP: Dr. Juan Locke DO Status:RE G ER Location: ED HPI HPI - GI History of Present Illness Chief Complaint: GI Bleed Informant: patient and family (Sister) Narrative Narrative: 70-year-old female recently diagnosed with cirrhosis from unknown etiology, she has been having black tarry stools for the last 3 to 4 days, feeling weak and lightheaded when she stands up or exerts herself, no syncope or exertional chestdiscomfort. She is also seen bright red blood whenever she wipes but she is just having melena when she has bowel movements without bright red blood. She denies any nausea or vomiting. She has a history of known varices. Taking no anticoagulants. She states shefeels like she probably needs another blood transfusion which she has had before when she felt likethis. [facility] Medical History Ascites Cirrhosis Iron deficiency anemia Lung nodule Hemorrhoids History of diabetes mellitus History of cirrhosis Anemia Pleural effusion on left Exertional dyspnea Chest pain Wears contact lenses Wears glasses Post-menopausal Anxiety Alcohol use Thyroid disease History of renal disease Anemia Back pain History of diverticulitis Gastric reflux Former smoker Sleep apnea Chronic cough S/p nephrectomy Depression Migraines HTN (hypertension) Diabetes Home Medications ?Medication ?Instructions ?Recorded ?Last Taken ?Type duloxetine 60 mg capsule,delayed 60 mg PO DAILY mental health 11/06/17 02/08/25 History release ergocalciferol (vitamin D2) 1,250 50,000 unit PO SA vi tamin 11/06/17 02/06/25 History mcg (50,000 unit) capsule albuterol sulfate 90 mcg/actuation 1 - 2 puff inhalati on PRN PRN 02/20/23 03/16/24 History aerosol inhaler ALLERGIES dulaglutide 0.75 mg/0.5 mL 0.75 mg subcut SA diabetes 10/10/23 02/06/25 History subcutaneous pen injector (Trulicity) cyanocobalamin (vitamin B-12) 1,000 mcg PO DAILY vitam in 02/13/24 02/08/25 History 1,000 mcg capsule fexofenadine 180 mg tablet 180 mg PO DAILY allergies 0 03/03/24 02/08/25 History (Jez Allergy) propranolol 10 mg tablet 10 mg PO TID blood pressure 30 04/02/24 02/08/25 Rx days #90 tabs spironolactone 50 mg tablet 50 mg PO BID diuretic #30 tabs 07/07/24 02/08/25 Rx furosemide 40 mg tablet 40 mg PO QDAY diuretic 11/0702/09/25 History ferrous gluconate 324 mg (38 mg 324 mg PO TID #90 tabs 11/10/24 02/08/25 Rx iron) tablet famotidine 40 mg tablet 40 mg PO QHS #30 tabs 02/08/25 Rx omeprazole 40 mg capsule,delayed 40 mg PO BID #60 caps 11/21/24 02/08/25 Rx release cholestyramine 4 gram oral powder 4 g PO DAILY 5 02/08/25 History for suspension in a packet (Prevalite) levothyroxine 137 mcg tablet 137 mcg PO DAILY 02/09/25 02/08/25 History (Synthroid) Allergy/AdvReac Type Severity Reaction Status Date / Time adhesive tape Allergy Rash Verified 02/09/25 12:03 Family History Father Colon cancer Brother Cancer bladder Surgical History History of thoracentesis Hx of colonoscopy History of esophagogastroduodenoscopy (EGD) S/P shoulder surgery S/P hysterectomy History of lobectomy of thyroid Social History Smoking Status: Former smoker alcohol intake: current alcohol intake frequency: holidays/special occasions only ROS ROS ED Constitutional Constitutional ED: Reports fatigue and weakness; Denies chills or fever(s) Eyes Eyes: Denies change in vision or diplopia ENT ENT ED: Denies rhinorrhea or sore throat Cardiovascular Cardiovascular: Reports lightheadedness and orthostatic symptoms; Denies chest pain, palpitations or syncope Respiratory/Chest Respiratory/Chest: Denies cough or dyspnea Gastrointestinal Gastrointestinal: Reports hematochezia and melena; Denies abdominal pain, diarrhea, nausea or vomiting Genitourinary Genitourinary ED: Denies dysuria or hematuria Musculoskeletal Musculoskeletal: Denies back pain or neck pain Integumentary Denies abscess or rash Neurologic Neurologic: Denies headache(s), paresthesias or weakness Psychiatric Psychiatric: Denies anxiety or suicidal thoughts EXAM Physical Exam Const Vital Signs: 02/09/25 12:02 02/09/25 12:13 02/09/25 13:26 Temperature 97.8 F 98.2 F Temperature Source Oral Oral Pulse Rate 106 H 81 Pulse Rate [Lying] 104 H Pulse Rate [Sitting (for 1 minute prior to obtaining)] 105 H Pulse Rate [Standing (for 1 minute prior to obtaining)] 109 H Respiratory Rate 16 17 Blood Pressure 128/68 H 122/47 H Blood Pressure [Lying] 110/50 L Blood Pressure [Sitting (for 1 minute prior to obtaining)] 121/43 H Blood Pressure [Standing (for 1 minute prior to obtaining)] 111/50 L Blood Pressure Mean 88 72 Blood Pressure Mean [Lying] 70 Blood Pressure Mean [Sitting (for 1 minute prior to obtaining)] 69 Blood Pressure Mean [Standing (for 1 minute prior to obtaining)] 70 Pulse Ox 100 100 Oxygen Delivery Method Room Air Room Air 02/09/25 14:00 Temperature Temperature Source Pulse Rate 100 Pulse Rate [Lying] Pulse Rate [Sitting (for 1 minute prior to obtaining)] Pulse Rate [Standing (for 1 minute prior to obtaining)] Respiratory Rate Blood Pressure 110/55 L Blood Pressure [Lying] Blood Pressure [Sitting (for 1 minute prior to obtaining)] Blood Pressure [Standing (for 1 minute prior to obtaining)] Blood Pressure Mean 73 Blood Pressure Mean [Lying] Blood Pressure Mean [Sitting (for 1 minute prior to obtaining)] Blood Pressure Mean [Standing (for 1 minute prior to obtaining)] Pulse Ox 98 Oxygen Delivery Method Positive well nourished and well developed General Appearance ED: well developed and NAD HEENT Reports moist mucous membranes normocephalic and atraumatic Eyes PERRL and EOMs intact bilaterally Neck full ROM and supple Resp normal respiratory effort and clear to auscultation bilaterally Cardio regular rate, regular rhythm and no murmurs Rate: tachycardic GI non-tender and non-distended GI Narrative: On rectal there are several external hemorrhoids, none are tender, none appear to be actively bleeding. On ANTHONY there is no specimen available at this time, noactive bleeding. Auscultation: normoactive bowel sounds Palpation: soft Back/Spine no CVA tenderness General Back: other FROM Extremity normal to inspection General Extremety ED: Negative for edema, pulses abnormal or tenderness General Extremity: Negative for edema or pulses abnormal Neuro oriented x3, CN's II-XII intact bilaterally and no sensory deficits noted Sensorium / Orientation: awake and alert Motor Exam: strength 5/5 throughout Psych mental status grossly normal and thought process normal Skin no rashes or lesions noted and no wounds MDM MDM MDM Narrative Medical decision making narrative: Patient indeed with acute blood loss anemia with a hemoglobin of 5.2. She consented to blood, whichwas started in the ER. She remained clinically and hemodynamically stable while resting. We did orthostatics officially they were negative even though she is having orthostatic symptoms prior to arrival. Her BUN is not very high, just 24. This is not suggestive of an acute stomach/esophagus bleed and she is not having any vomiting or nausea. I reviewed some old GI notes, EGD results, and recent pill capsule study. She has severe portal venous gastropathy, and grade 2 esophageal varices in the mid and distal esophagus. The pill study showed diffuse enteritis but there is no active bleeding during the study. This was done in November. I spoke with Dr. Saad DIAS. I went over some of the recent outpatient records that I read, he was okay with the patient staying here. Discussed with hospitalist. Currently there was some delay in getting blood transfusion products to the patient because of positive antibodies, requiring more processing on the behalf of the blood bank. History & Record Review Additional record(s) reviewed:: Prior outpatient record Lab Data Attestation: I reviewed the patient's lab results. Labs: Laboratory Results - last 24 hr 02/09/25 02/09/25 12:11 12:56 WBC 6.7 RBC 2.14 L Hgb 5.2 L* Hct 17.5 L MCV 81.8 MCH 24.3 L MCHC 29.7 L RDW Std Deviation 52.7 H RDW Coeff of Cornelio 17.8 H Plt Count 183 MPV 11.3 Immature Gran % (Auto) 0.300 Neut % (Auto) 72.5 H Lymph % (Auto) 16.5 L [place] % (Auto) 9.1 Eos % (Auto) 1.5 Baso % (Auto) 0.1 Absolute Neuts (auto) 4.9 Absolute Lymphs (auto) 1.11 Nucleated RBC % 0 PT 15.5 H INR 1.2 APTT 24.8 Sodium 137 Potassium 3.8 Chloride 105 Carbon Dioxide 17.0 L Anion Gap 14 BUN 24 H Creatinine 1.10 Estim Creat Clear Calc 50.49 Est GFR (MDRD) Non-Af 54 L BUN/Creatinine Ratio 21.7 H Glucose 203 H Calcium 9.4 Total Bilirubin 0.85 AST 20 ALT 13 Alkaline Phosphatase 166 H Total Protein 5.4 L Albumin 3.4 Globulin 2.1 L Albumin/Globulin Ratio 1.6 Blood Type A POSITIVE Antibody Screen POSITIVE Antibody Identification ANTI-E Rhythm Strip Rhythm Strip: Sinus Tach Rate: 102 Ectopy: None EKG Initial EKG: Attestation: I personally reviewed and interpreted this EKG as follows: Interpretation: Sinus Rhythm, No Acute Injury Pattern and Non-Specific ST Changes Management Discussion w/another healthcare provider: Tube Wrapper (Dr. Saad DIAS) Critical Care Time Critical Care Time: Yes Critical care time (excluding procedures): 30-74 minutes (33 min), Including time spent:, Discussing w/Patient &/or Family/[employer] Supervisor, Discussing w/Consultants, Arranging Admission or Transfer and Performing Direct Patient Care at Bedside Discharge Plan Triage Chief Complaint: GI Bleed ED Provider: Yared Peraza Dx/Rx/DC Orders Clinical Impression: ABLA (acute blood loss anemia), Cirrhosis, Esophageal varices, Acute upper gastrointestinal bleeding Prescriptions: No Action Trulicity 0.75 mg/0.5 mL pen injector 0.75 mg subcut SA cyanocobalamin (vitamin B-12) 1,000 mcg capsule 1,000 mcg PO DAILY spironolactone 50 mg tablet 50 mg PO BID Qty: 30 2RF Rx Instructions: Hold if serum POTASSIUM is more than 5.1 famotidine 40 mg tablet 40 mg PO QHS Qty: 30 3RF omeprazole 40 mg capsule,delayed release(DR/EC) 40 mg PO BID Qty: 60 3RF ergocalciferol (vitamin D2) 50,000 UNIT capsule 50,000 unit PO SA duloxetine 60 MG capsule,delayed release(DR/EC) 60 mg PO DAILY albuterol sulfate 90 mcg/actuation HFA aerosol inhaler 1 - 2 puff INHALATION PRN PRN (Reason: ALLERGIES) furosemide 40 mg tablet 40 mg PO QDAY ferrous gluconate 324 mg (38 mg iron) tablet 324 mg PO TID Qty: 90 0RF fexofenadine [Jez Allergy] 180 mg tablet 180 mg PO DAILY propranolol 10 mg Tablet 10 mg PO TID 30 Days Qty: 90 0RF levothyroxine [Synthroid] 137 mcg tablet 137 mcg PO DAILY Prevalite 4 gram powder in packet 4 g PO DAILY Primary Care Provider: Juan Locke Referrals: Juan Locke DO [Primary Care Provider] - Print Language: Swedish Disposition Disposition: Acute Care Hospital [facility] What to do if you have Problems For any increased pain, shortness of breath, bleeding, nausea or vomiting, chestpain, or any unexpected problems, contact your Primary Care Provider. Call [facility] ([phone]) or report tothe closest Emergency Room. Call 911 if necessary. 02/09/25 1617 Cosigner Signature (if applicable): CC: Dr. Juan Locke DO ~ Signed [facility]05-27-2025 Discharge summary Author Yared Peraza [facility] Note Date/Time February 09, 2025 4:11p m [facility] Medical Records Department [address] [place] [address] Emergency Department Summary 02/09/25 MR#: [id number] Acct: [id number] Name: BARBARA MENESES Rep #:[id number] : 1955 70 From: Yared Peraza MD PCP: Dr. Juan Locke, DO Status:RE G ER Location: ED HPI HPI - GI History of Present Illness Chief Complaint: GI Bleed Informant: patient and family (Sister) Narrative Narrative: 70-year-old female recently diagnosed with cirrhosis from unknown etiology, she has been having black tarry stools for the last 3 to 4 days, feeling weak and lightheaded when she stands up or exerts herself, no syncope or exertional chestdiscomfort. She is also seen bright red blood whenever she wipes but she is just having melena when she has bowel movements without bright red blood. She denies any nausea or vomiting. She has a history of known varices. Taking no anticoagulants. She states she feels like she probably needs another blood transfusion which she has had before when she felt like this. [facility] Medical History Ascites Cirrhosis Iron deficiency anemia Lung nodule Hemorrhoids History of diabetes mellitus History of cirrhosis Anemia Pleural effusion on left Exertional dyspnea Chest pain Wears contact lenses Wears glasses Post-menopausal Anxiety Alcohol use Thyroid disease History of renal disease Anemia Back pain History of diverticulitis Gastric reflux Former smoker Sleep apnea Chronic cough S/p nephrectomy Depression Migraines HTN (hypertension) Diabetes Home Medications ?Medication ?Instructions ?Recorded ?Last Taken ?Type duloxetine 60 mg capsule,delayed 60 mg PO DAILY mental health 11/06/17 02/08/25 History release ergocalciferol (vitamin D2) 1,250 50,000 unit PO SA vi tamin 11/06/17 02/06/25 History mcg (50,000 unit) capsule albuterol sulfate 90 mcg/actuation 1 - 2 puff inhalati on PRN PRN 02/20/23 03/16/24 History aerosol inhaler ALLERGIES dulaglutide 0.75 mg/0.5 mL 0.75 mg subcut SA diabetes 10/10/23 02/06/25 History subcutaneous pen injector (Trulicity) cyanocobalamin (vitamin B-12) 1,000 mcg PO DAILY vitam in 02/13/24 02/08/25 History 1,000 mcg capsule fexofenadine 180 mg tablet 180 mg PO DAILY allergies 0 03/03/24 02/08/25 History (Jez Allergy) propranolol 10 mg tablet 10 mg PO TID blood pressure 30 04/02/24 02/08/25 Rx days #90 tabs spironolactone 50 mg tablet 50 mg PO BID diuretic #30 tabs 07/07/24 02/08/25 Rx furosemide 40 mg tablet 40 mg PO QDAY diuretic 11/0702/09/25 History ferrous gluconate 324 mg (38 mg 324 mg PO TID #90 tabs 11/10/24 02/08/25 Rx iron) tablet famotidine 40 mg tablet 40 mg PO QHS #30 tabs 02/08/25 Rx omeprazole 40 mg capsule,delayed 40 mg PO BID #60 caps 11/21/24 02/08/25 Rx release cholestyramine 4 gram oral powder 4 g PO DAILY 5 02/08/25 History for suspension in a packet (Prevalite) levothyroxine 137 mcg tablet 137 mcg PO DAILY 02/09/25 02/08/25 History (Synthroid) Allergy/AdvReac Type Severity Reaction Status Date / Time adhesive tape Allergy Rash Verified 02/09/25 12:03 Family History Father Colon cancer Brother Cancer bladder Surgical History History of thoracentesis Hx of colonoscopy History of esophagogastroduodenoscopy (EGD) S/P shoulder surgery S/P hysterectomy History of lobectomy of thyroid Social History Smoking Status: Former smoker alcohol intake: current alcohol intake frequency: holidays/special occasions only ROS ROS ED Constitutional Constitutional ED: Reports fatigue and weakness; Denies chills or fever(s) Eyes Eyes: Denies change in vision or diplopia ENT ENT ED: Denies rhinorrhea or sore throat Cardiovascular Cardiovascular: Reports lightheadedness and orthostatic symptoms; Denies chest pain, palpitations or syncope Respiratory/Chest Respiratory/Chest: Denies cough or dyspnea Gastrointestinal Gastrointestinal: Reports hematochezia and melena; Denies abdominal pain, diarrhea, nausea or vomiting Genitourinary Genitourinary ED: Denies dysuria or hematuria Musculoskeletal Musculoskeletal: Denies back pain or neck pain Integumentary Denies abscess or rash Neurologic Neurologic: Denies headache(s), paresthesias or weakness Psychiatric Psychiatric: Denies anxiety or suicidal thoughts EXAM Physical Exam Const Vital Signs: 02/09/25 12:02 02/09/25 12:13 02/09/25 13:26 Temperature 97.8 F 98.2 F Temperature Source Oral Oral Pulse Rate 106 H 81 Pulse Rate [Lying] 104 H Pulse Rate [Sitting (for 1 minute prior to obtaining)] 105 H Pulse Rate [Standing (for 1 minute prior to obtaining)] 109 H Respiratory Rate 16 17 Blood Pressure 128/68 H 122/47 H Blood Pressure [Lying] 110/50 L Blood Pressure [Sitting (for 1 minute prior to obtaining)] 121/43 H Blood Pressure [Standing (for 1 minute prior to obtaining)] 111/50 L Blood Pressure Mean 88 72 Blood Pressure Mean [Lying] 70 Blood Pressure Mean [Sitting (for 1 minute prior to obtaining)] 69 Blood Pressure Mean [Standing (for 1 minute prior to obtaining)] 70 Pulse Ox 100 100 Oxygen Delivery Method Room Air Room Air 02/09/25 14:00 Temperature Temperature Source Pulse Rate 100 Pulse Rate [Lying] Pulse Rate [Sitting (for 1 minute prior to obtaining)] Pulse Rate [Standing (for 1 minute prior to obtaining)] Respiratory Rate Blood Pressure 110/55 L Blood Pressure [Lying] Blood Pressure [Sitting (for 1 minute prior to obtaining)] Blood Pressure [Standing (for 1 minute prior to obtaining)] Blood Pressure Mean 73 Blood Pressure Mean [Lying] Blood Pressure Mean [Sitting (for 1 minute prior to obtaining)] Blood Pressure Mean [Standing (for 1 minute prior to obtaining)] Pulse Ox 98 Oxygen Delivery Method Positive well nourished and well developed General Appearance ED: well developed and NAD HEENT Reports moist mucous membranes normocephalic and atraumatic Eyes PERRL and EOMs intact bilaterally Neck full ROM and supple Resp normal respiratory effort and clear to auscultation bilaterally Cardio regular rate, regular rhythm and no murmurs Rate: tachycardic GI non-tender and non-distended GI Narrative: On rectal there are several external hemorrhoids, none are tender, none appear to be actively bleeding. On ANTHONY there is no specimen available at this time, noactive bleeding. Auscultation: normoactive bowel sounds Palpation: soft Back/Spine no CVA tenderness General Back: other FROM Extremity normal to inspection General Extremety ED: Negative for edema, pulses abnormal or tenderness General Extremity: Negative for edema or pulses abnormal Neuro oriented x3, CN's II-XII intact bilaterally and no sensory deficits noted Sensorium / Orientation: awake and alert Motor Exam: strength 5/5 throughout Psych mental status grossly normal and thought process normal Skin no rashes or lesions noted and no wounds MDM MDM MDM Narrative Medical decision making narrative: Patient indeed with acute blood loss anemia with a hemoglobin of 5.2. She consented to blood, which was started in the ER. She remained clinically and hemodynamically stable while resting. We did orthostatics officially they were negative even though she is having orthostatic symptoms prior to arrival. Her BUN is not very high, just 24. This is not suggestive of an acute stomach/esophagus bleed and she is not having any vomiting or nausea. I reviewed some old GI notes, EGD results, and recent pill capsule study. She has severe portal venous gastropathy, and grade 2 esophageal varices in the mid and distal esophagus. The pill study showed diffuse enteritis but there is no active bleeding during the study. This was done in November. I spoke with Dr. Saad DIAS. I went over some of the recent outpatient records that I read, he was okay with the patient staying here. Discussed with hospitalist. Currently there was some delay in getting blood transfusion products to the patient because of positive antibodies, requiring more processing on the behalf of the blood bank. History & Record Review Additional record(s) reviewed:: Prior outpatient record Lab Data Attestation: I reviewed the patient's lab results. Labs: Laboratory Results - last 24 hr 02/09/25 02/09/25 12:11 12:56 WBC 6.7 RBC 2.14 L Hgb 5.2 L* Hct 17.5 L MCV 81.8 MCH 24.3 L MCHC 29.7 L RDW Std Deviation 52.7 H RDW Coeff of Cornelio 17.8 H Plt Count 183 MPV 11.3 Immature Gran % (Auto) 0.300 Neut % (Auto) 72.5 H Lymph % (Auto) 16.5 L [place] % (Auto) 9.1 Eos % (Auto) 1.5 Baso % (Auto) 0.1 Absolute Neuts (auto) 4.9 Absolute Lymphs (auto) 1.11 Nucleated RBC % 0 PT 15.5 H INR 1.2 APTT 24.8 Sodium 137 Potassium 3.8 Chloride 105 Carbon Dioxide 17.0 L Anion Gap 14 BUN 24 H Creatinine 1.10 Estim Creat Clear Calc 50.49 Est GFR (MDRD) Non-Af 54 L BUN/Creatinine Ratio 21.7 H Glucose 203 H Calcium 9.4 Total Bilirubin 0.85 AST 20 ALT 13 Alkaline Phosphatase 166 H Total Protein 5.4 L Albumin 3.4 Globulin 2.1 L Albumin/Globulin Ratio 1.6 Blood Type A POSITIVE Antibody Screen POSITIVE Antibody Identification ANTI-E Rhythm Strip Rhythm Strip: Sinus Tach Rate: 102 Ectopy: None EKG Initial EKG: Attestation: I personally reviewed and interpreted this EKG as follows: Interpretation: Sinus Rhythm, No Acute Injury Pattern and Non-Specific ST Changes Management Discussion w/another healthcare provider: Tube Wrapper (Dr. Zimmer GI) Critical Care Time Critical Care Time: Yes Critical care time (excluding procedures): 30-74 minutes (33 min), Including time spent:, Discussing w/Patient &/or Family/[employer] Supervisor, Discussing w/Consultants, Arranging Admission or Transfer and Performing Direct Patient Care at Bedside Discharge Plan Triage Chief Complaint: GI Bleed ED Provider: Yared Peraza Dx/Rx/DC Orders Clinical Impression: ABLA (acute blood loss anemia), Cirrhosis, Esophageal varices, Acute upper gastrointestinal bleeding Prescriptions: No Action Trulicity 0.75 mg/0.5 mL pen injector 0.75 mg subcut SA cyanocobalamin (vitamin B-12) 1,000 mcg capsule 1,000 mcg PO DAILY spironolactone 50 mg tablet 50 mg PO BID Qty: 30 2RF Rx Instructions: Hold if serum POTASSIUM is more than 5.1 famotidine 40 mg tablet 40 mg PO QHS Qty: 30 3RF omeprazole 40 mg capsule,delayed release(DR/EC) 40 mg PO BID Qty: 60 3RF ergocalciferol (vitamin D2) 50,000 UNIT capsule 50,000 unit PO SA duloxetine 60 MG capsule,delayed release(DR/EC) 60 mg PO DAILY albuterol sulfate 90 mcg/actuation HFA aerosol inhaler 1 - 2 puff INHALATION PRN PRN (Reason: ALLERGIES) furosemide 40 mg tablet 40 mg PO QDAY ferrous gluconate 324 mg (38 mg iron) tablet 324 mg PO TID Qty: 90 0RF fexofenadine [Jez Allergy] 180 mg tablet 180 mg PO DAILY propranolol 10 mg Tablet 10 mg PO TID 30 Days Qty: 90 0RF levothyroxine [Synthroid] 137 mcg tablet 137 mcg PO DAILY Prevalite 4 gram powder in packet 4 g PO DAILY Primary Care Provider: Juan Locke Referrals: Juan Locke DO [Primary Care Provider] - Print Language: Swedish Disposition Disposition: Acute Care Hospital [facility] What to do if you have Problems For any increased pain, shortness of breath, bleeding, nausea or vomiting, chestpain, or any unexpected problems, contact your Primary Care Provider. Call [facility] ([phone]) or report to the closest Emergency Room. Call 911 if necessary. 02/09/25 1611 <Electronically signed by Yared Peraza MD> Cosigner Signature (if applicable): CC: Dr. Juan Locke DO ~ Signed [facility] Work Phone: [phone] 415-781805-16-2025 Telephone encounter Note* Telephone Encounter - Lynnette Masters RN - 2025 12:10 PM EDT Patient calls to let provider know that pain medication is not working well for lower back pain andasking for prescription for oxycodone. Per OV notes, patient to follow up in 1- 2 weeks if no improvement. Provider is out. Offered same day with available provider. Patient declines but agreeable to appt on 02/04/2025 with Kavitha Hayes. Lynnette Masters RN [facility]05-16-2025 Miscellaneous Notes* Telephone Encounter - Lynnette Masters RN - 2025 12:10 PM EDT Patient calls to let provider know that pain medication is not working well for lower back pain andasking for prescription for oxycodone. Per OV notes, patient to follow up in 1- 2 weeks if no improvement. Provider is out. Offered same day with available provider. Patient declines but agreeable to appt on 02/04/2025 with Kavitha Hayes. Lynnette Masters RN documented in this encounterMem[facility]05-08-2025 [place] History of Present illness Narrative* Nury Alexander APRN.JUANA - 01/21/2025 3:33 PM EDT 01/21/2025 Recording using [employer] Mobile software for draft documentation of the visit was discussed with the patient/authorized sales representative metals; all questions welcomed and answered. Patient/authorized sales representative metals agreed to proceed HPI: Barbara is a 69-year-old female with a history of liver disease, presenting with low back pain. Low Back Pain: - Onset approximately one week ago. - Suspected to have started after lifting a heavy bed frame and mattress. - Described as pretty bad and not improving. - Pain localized to the right hip and radiates across the lower back. - No radiation into legs or groin. - Using [employer]ia [employer] Body aspirin with some relief; hesitant to take due to bleeding concerns. - Tried oxycodone from a previous prescription with no relief. - Using a heating pad for comfort. Hernia: - Diagnosed with a flank hernia. - Considering surgical repair; referred to Dr. Wu. - Hernia has not increased in size. Liver Disease: - History of liver disease. - Recent CMP shows stable liver function with slightly elevated alkaline phosphatase. - Advised to avoid Tylenol due to liver condition. Anemia: - History of anemia with previous GI bleeds and transfusions. - Recent CBC shows improvement with hemoglobin at 10.2 g/dL. - Receiving vitamin B12 injections; due for the next dose around 02/07. Nutrition: - Advised to drink protein drinks to improve nutritional status. - Recent labs show slightly low nutritional markers, but stable. PAST MEDICAL HISTORY Diagnosis Date Albuminuria 08/2015 Depression Diverticulitis Esophageal varices (HCC) Headaches Hemorrhoid History of nephrectomy right Hypertension Hypothyroidism IBS (irritable bowel syndrome) Iron deficiency anemia secondary to inadequate dietary iron intake 05/07/2023 Iron malabsorption (HCC) 05/07/2023 Lung nodules JENN (obstructive sleep apnea) Osteopenia 08/2023 Portal hypertension (HCC) Rectal bleed SOB (shortness of breath) Splenomegaly Type 2 diabetes, uncontrolled, with renal manifestation Current Outpatient Medications on File Prior to Visit Medication Sig dulaglutide (TRULICITY) 0.75 mg/0.5 mL pen injector Inject 0.75 mg subcutaneously one time a week. Dx: Type 2 diabetes uncontrolled, Inject dose once per week. Discard Pen After ergocalciferol 50,000 unit capsule (VITAMIN D2, DRISDOL) Take 1 capsule by mouth one time a week. DULoxetine (CYMBALTA) 60 mg capsule take 1 capsule by mouth once daily furosemide (LASIX) 40 mg tablet Take 1 tablet by mouth once daily. albuterol HFA (VENTOLIN HFA) 90 mcg/actuation inhaler Inhale 2 Puffs as instructed every 4 hours asneeded for wheezing/shortness of breath. SYNTHROID 137 mcg tablet Take 1 tablet by mouth once daily. In the morning Ferrous Gluconate (FERGON) 324 mg (38 mg iron) tablet 324 mg. midodrine (PROAMITINE) 5 mg tablet Take 5 mg by mouth three times a day. iv contrast (will be provided with radiology test) CT ABD/PEL -Inject, intravenously, once for 1 dose.No IV access, insert saline lock prior to the beginning of sedation, infusion, injection of imaging exam. Discontinue saline lock post exam. If Pt. has a central line or IVAD, may access for administration according to line specific nursing protocol. Once exam is complete flush line and de-accessaccording to line specific nursing protocol in the CT contrast administration guidelines link. enteric contrast (will be provided with radiology test) For CT ABD/PEL W IVCON Routine order Administer, As Directed One Time Only, via Oral, Rectal, both Oral and Rectal, Enteric Tube, Stoma or Indwelling Catheter, Enteric Contrast as designated per enteric contrast guidelines iv contrast (will be provided with radiology test) CT Chest ABD/PEL-Inject, intravenously, once for1 dose.No IV access, insert saline lock prior to the beginning of sedation, infusion, injection of imaging exam. Discontinue saline lock post exam. If Pt. has a central line or IVAD, may access for administration according to line specific nursing protocol. Once exam is complete flush line and de-access according to line specific nursing protocol in the CT contrast administration guidelines link. enteric contrast (will be provided with radiology test) For CT CHESTABD/PEL W IVCON Routine order Administer, As Directed One Time Only, via Oral, Rectal, both Oral and Rectal, Enteric Tube, Stoma orIndwelling Catheter, Enteric Contrast as designated per enteric contrast guidelines zolpidem (AMBIEN) 10 mg Take 1 tablet by mouth at bedtime as needed (insomnia) for up to 30 days. buPROPion (WELLBUTRIN) 100 mg tablet Take 2 tablets to total 200 mg in the morning and 1 tablet in the evening, total of 300 mg a day Blood-Glucose Meter,Continuous (FREESTYLE THEE 3 READER) [facility] [place] Use to check blood sugar at least four (4) times daily. Blood-Glucose Sensor (FREESTYLE THEE 3 SENSOR) [place] Apply new sensor every fourteen (14) days to upper arm. Lancets lancets Test blood sugar(s) 1 times daily. Dx: Type 2 DM - Uncontrolled E11.65 Insulin: No blood sugar diagnostic (BLOOD GLUCOSE TEST) test strip Test blood sugar(s) 1 times daily. Dx: Type 2 DM - Uncontrolled E11.65 Insulin: No oxyCODONE IR (ROXICODONE) 5 mg immediate release tablet Take 5 mg by mouth every 8 hours as needed for pain (pt states she cuts tablet in half). (Patient not taking: Reported on 01/21/2025) Current Facility-Administered Medications on File Prior to Visit Medication cyanocobalamin 1,000 mcg injection Review of Systems: Musculoskeletal: (+) low back pain (1 week duration), (+) right buttock pain, (- ) radiation to legsor groin Physical Exam: BP 116/70 (BP Site: Left Arm, BP Position: Sitting, BP Cuff Size: Large Adult) Pulse 76 Wt 88 kg (194 lb) SpO2 100% BMI 33.30 kg/m GENERAL: NAD, alert and oriented. LUNGS: Clear to auscultation bilaterally, no wheezes/rhonchi/rales. HEART: Regular rate and rhythm, no murmurs. No ectopy. EXTREMITIES: Normal, no deformities, no skin discoloration, no edema. NEURO: Awake, alert and oriented x3, cranial nerves II-XII grossly intact, normal gait, no involuntary motions. BACK: pain to bilateral lower back with palpation, pain into upper to mid buttocks Diagnostics Reviewed: Labs: (01/08) CBC: - Hemoglobin: 10.2 g/dL (improved from prior) (01/08) CMP: - Alkaline phosphatase: Slightly elevated, stable - Sodium: Normal - Potassium: Normal - Kidney function: Improved Imaging: CT Scan: - Soft tissue nodularity surrounding the inferior mesenteric artery, raising possibility of carcinomatosis - Determined to be a flank hernia containing fat, without malignant involvement Assessment/Plan: 1. Acute midline low back pain without sciatica (M54.50) - Onset approximately one week ago, likely secondary to lifting a heavy bed. - Pain localized to the right hip and buttock, no radiation to legs or groin. - Physical exam reveals tenderness in the lumbar region and right buttock. - Prescribed Naproxen BID for 14 days; instructed to take with food to minimize gastrointestinal side effects. - Initiated Robaxin TID prn; advised potential drowsiness. - Discontinue use of Antonia [employer] Body. - Recommended application of heat and gentle stretching exercises. - Advised to avoid heavy lifting. - Follow-up in two weeks if no improvement. 2. Other iron deficiency anemia (D50.8) - Recent CBC shows hemoglobin at 10.2 g/dL, improved from previous levels. - Continue monthly Vitamin B12 injections; next dose due around 02/07. - Encouraged to consume 1-2 protein drinks daily to improve nutritional status. - Ordered repeat CBC towards the end of the month. 3. Uncontrolled type 2 diabetes mellitus with hyperglycemia (HCC) (E11.65) - Allergic to Januvia. - Continue current management; no new medications introduced. 4. Flank hernia (K45.8) - Diagnosed with a fat-containing flank hernia. - Referred to Dr. Wu for surgical evaluation. - Advised to monitor for any changes or complications. 5. Liver disease (K76.9) - Recent CMP shows stable liver function tests; alkaline phosphatase slightly elevated but consistent with chronic liver condition. - Sodium and potassium levels within normal range. - Advised to avoid Tylenol due to liver condition. - Continue current medications, including spironolactone. 6. 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 - No new issues related to nephrectomy. The patient indicates understanding of these issues and agrees with the plan. Red flag symptoms reviewed as needed. Follow up: Nury Alexander APRN.ASSOCIATE SOFTWARE APPLICATION ENGINEER documented in this encounterMemorial Hospital05-07-2025 Telephone encounter Note * Telephone Encounter - Moraima Sullivan MA - 01/20/2025 12:59 PM EDT Pt informed Moraima Sullivan MA [facility] Miscellaneous Notes* Telephone Encounter - Moraima Sullivan MA - 01/20/2025 12:59 PM EDT Pt informed Moraima Sullivan MA * Telephone Encounter - Juan Locke DO - 01/19/2025 5:19 PM EDT Please let her know that overall her recent labs are stable No new changes or concerns Needs to continue follow up with Jeremy Locke DO * Telephone Encounter - Azucena Zarate LPN - 01/11/2025 12:46 PM EDT Pt calls for the following: Lab results from 01/08/25. Also order for Vit B12 injections needs to be re-ordered. This nurse accidentally cancelled order. Pt will need to be scheduled with the nurse for next B12 injection. Latest Ref Rng 01/08/2025 WBC 3.70 - 11.00 k/uL 4.02 RBC 3.90 - 5.20 m/uL 3.68 (L) Hemoglobin 11.5 - 15.5 g/dL 10.2 (L) Hematocrit 36.0 - 46.0 % 31.9 (L) MCV 80.0 - 100.0 fL 86.7 MCH 26.0 - 34.0 pg 27.7 MCHC 30.5 - 36.0 g/dL 32.0 RDW-CV 11.5 - 15.0 % 17.4 (H) Platelet Count 150 - 400 k/uL 105 (L) MPV 9.0 - 12.7 fL 11.2 Neut% % 66.9 Abs Neut (ANC) 1.45 - 7.50 k/uL 2.69 Lymph% % 17.2 Abs Lymph 1.00 - 4.00 k/uL 0.69 (L) [place]% % 10.0 Abs [place] <0.87 k/uL 0.40 Eosin% % 5.2 Abs Eosin <0.46 k/uL 0.21 Baso% % 0.5 Abs Baso <0.11 k/uL <0.03 Immature Gran % % 0.2 IMMATURE GRANS (ABS) <0.10 k/uL <0.03 NRBC /100 WBC 0.0 Absolute nRBC <0.01 k/uL <0.01 DTYPE Auto Protein, Total 6.3 - 8.0 g/dL 5.9 (L) Albumin 3.9 - 4.9 g/dL 3.7 (L) Calcium 8.5 - 10.2 mg/dL 8.9 Bilirubin, Total 0.2 - 1.3 mg/dL 0.7 Alkaline Phosphatase 34 - 123 U/L 143 (H) AST 13 - 35 U/L 24 ALT 7 - 38 U/L 16 Glucose 74 - 99 mg/dL 164 (H) BUN 7 - 21 mg/dL 12 Creatinine 0.58 - 0.96 mg/dL 0.90 Sodium 136 - 144 mmol/L 138 Potassium 3.7 - 5.1 mmol/L 3.7 Chloride 98 - 107 mmol/L 108 (H) CO2 22 - 30 mmol/L 25 Anion Gap 8 - 15 mmol/L 5 (L) eGFR >=60 mL/min/1.73m 69 Legend: (L) Low (H) High Azucena Zarate LPN documented in this encounterMemorial Hospital05-06-2025 Telephone encounter Note * Telephone Encounter - Juan Locke DO - 01/19/2025 5:19 PM EDT Please let her know that overall her recent labs are stable No new changes or concerns Needs to continue follow up with Jeremy Locke DO [facility]04[facility] Telephone encounter Note* Telephone Encounter - Azucena Zarate LPN - 01/11/2025 12:46 PM EDT Pt calls for the following: Lab results from 01/08/25. Also order for Vit B12 injections needs to be re-ordered. This nurse accidentally cancelled order. Pt will need to be scheduled with the nurse for next B12 injection. Latest Ref Rng 01/08/2025 WBC 3.70 - 11.00 k/uL 4.02 RBC 3.90 - 5.20 m/uL 3.68 (L) Hemoglobin 11.5 - 15.5 g/dL 10.2 (L) Hematocrit 36.0 - 46.0 % 31.9 (L) MCV 80.0 - 100.0 fL 86.7 MCH 26.0 - 34.0 pg 27.7 MCHC 30.5 - 36.0 g/dL 32.0 RDW-CV 11.5 - 15.0 % 17.4 (H) Platelet Count 150 - 400 k/uL 105 (L) MPV 9.0 - 12.7 fL 11.2 Neut% % 66.9 Abs Neut (ANC) 1.45 - 7.50 k/uL 2.69 Lymph% % 17.2 Abs Lymph 1.00 - 4.00 k/uL 0.69 (L) [place]% % 10.0 Abs [place] <0.87 k/uL 0.40 Eosin% % 5.2 Abs Eosin <0.46 k/uL 0.21 Baso% % 0.5 Abs Baso <0.11 k/uL <0.03 Immature Gran % % 0.2 IMMATURE GRANS (ABS) <0.10 k/uL <0.03 NRBC /100 WBC 0.0 Absolute nRBC <0.01 k/uL <0.01 DTYPE Auto Protein, Total 6.3 - 8.0 g/dL 5.9 (L) Albumin 3.9 - 4.9 g/dL 3.7 (L) Calcium 8.5 - 10.2 mg/dL 8.9 Bilirubin, Total 0.2 - 1.3 mg/dL 0.7 Alkaline Phosphatase 34 - 123 U/L 143 (H) AST 13 - 35 U/L 24 ALT 7 - 38 U/L 16 Glucose 74 - 99 mg/dL 164 (H) BUN 7 - 21 mg/dL 12 Creatinine 0.58 - 0.96 mg/dL 0.90 Sodium 136 - 144 mmol/L 138 Potassium 3.7 - 5.1 mmol/L 3.7 Chloride 98 - 107 mmol/L 108 (H) CO2 22 - 30 mmol/L 25 Anion Gap 8 - 15 mmol/L 5 (L) eGFR >=60 mL/min/1.73m 69 Legend: (L) Low (H) High Azucena Zarate LPN [facility] Telephone encounter Note* Telephone Encounter - Catrina Sutton RN - 12/28/2024 9:49 AM EDT The patient has been identified by name and date of : Yes Caregiver verified no other encounters exist for this prescription request: Yes Caregiver confirmed with patient/requestor that no other refills are due, in the near future, with this provider at this time: Yes The last office visit in the department: 11/25/2024 Does the patient have a future office visit with this provider/department: Yes 01/26/2025 Requested Prescriptions Pending Prescriptions Disp Refills dulaglutide (TRULICITY) 0.75 mg/0.5 mL pen injector 12 each 1 Sig: Inject 0.75 mg subcutaneously one time a week. Dx: Type 2 diabetes uncontrolled, Inject dose once per week. Discard Pen After ergocalciferol 50,000 unit capsule (VITAMIN D2, DRISDOL) 12 capsule 3 Sig: Take 1 capsule by mouth one time a week. Catrina Sutton RN [facility]04-[facility] Miscellaneous Notes* Telephone Encounter - Catrina Sutton RN - 12/28/2024 9:49 AM EDT The patient has been identified by name and date of : Yes Caregiver verified no other encounters exist for this prescription request: Yes Caregiver confirmed with patient/requestor that no other refills are due, in the near future, with this provider at this time: Yes The last office visit in the department: 11/25/2024 Does the patient have a future office visit with this provider/department: Yes 01/26/2025 Requested Prescriptions Pending Prescriptions Disp Refills dulaglutide (TRULICITY) 0.75 mg/0.5 mL pen injector 12 each 1 Sig: Inject 0.75 mg subcutaneously one time a week. Dx: Type 2 diabetes uncontrolled, Inject dose once per week. Discard Pen After ergocalciferol 50,000 unit capsule (VITAMIN D2, DRISDOL) 12 capsule 3 Sig: Take 1 capsule by mouth one time a week. Catrina Sutton RN documented in this encounterMemorial Hospital04-04-2025 Telephone encounter Note * Telephone Encounter - Joann Peterson LPN - 12/18/2024 11:22 AM EDT Prescription Refill Information The patient has been identified by name and date of : Yes Caregiver verified no other encounters exist for this prescription request: Yes Caregiver confirmed with patient/requestor that no other refills are due, in the near future, with this provider at this time: Yes The last office visit in the department: 11/17/24 Does the patient have a future office visit with this provider/department: Yes Requested Prescriptions Pending Prescriptions Disp Refills DULoxetine (CYMBALTA) 60 mg capsule [Pharmacy Med Name: DULOXETINE HCL DR 60 MG CAP] 90 capsule 3 Sig: take 1 capsule by mouth once daily Joann Peterson LPN December 18, 2024 11:22 AM [facility] Miscellaneous Notes* Telephone Encounter - Joann Peterson LPN - 12/18/2024 11:22 AM EDT Prescription Refill Information The patient has been identified by name and date of : Yes Caregiver verified no other encounters exist for this prescription request: Yes Caregiver confirmed with patient/requestor that no other refills are due, in the near future, with this provider at this time: Yes The last office visit in the department: 11/17/24 Does the patient have a future office visit with this provider/department: Yes Requested Prescriptions Pending Prescriptions Disp Refills DULoxetine (CYMBALTA) 60 mg capsule [Pharmacy Med Name: DULOXETINE HCL DR 60 MG CAP] 90 capsule 3 Sig: take 1 capsule by mouth once daily Joann Peterson LPN December 18, 2024 11:22 AM documented in this encounterMemorial Hospital04-02-2025 NoteHNO ID: [id number] Author: MERY HERNANDEZ MD Service: ? Author Type: Physician Type: Progress Notes Filed: 12/16/2024 12:01 Note Text: Mery Hernandez M.D. Surgical Oncology [address] [facility], [address] [place] [address] Barbara is a 69-year-old female with a history of retroperitoneal/mesenteric/peritoneal nodularity and a flank hernia, presenting for routine follow-up. Barbara was last seen in August 2024 for concerns of retroperitoneal/mesenteric/peritoneal nodularity. An interval CT scan at that time showed no significant changes over 3 months. An MRI was performed subsequently, which did not demonstrate any concerning findings in the retroperitoneum and no obvious signs of peritoneal disease. Barbara was also referred to general surgery for consideration of a flank hernia repair. Barbara reports no major problems since the last visit. She inquires if the scarring observed could be related to a previous nephrectomy. She mentions having an appointment with Dr. Wu for her hernia but had to reschedule due to a liver ultrasound elastography test. 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 Barbara was advised to reschedule her appointment with Dr. Wu. The ROS, medical, surgical, family, and social history were reviewed by Mery Hernandez MD. BP 110/58 Pulse 77 Ht 162.6 cm (5' 4) SpO2 98% BMI 34.50 kg/m? No weight on file for this encounter. Physical Exam Constitutional: General: She is not in acute distress. HENT: Head: Normocephalic and atraumatic. Eyes: Pupils: Pupils are equal, round, and reactive to light. Neck: Thyroid: No thyromegaly. Trachea: No tracheal deviation. Cardiovascular: Rate and Rhythm: Normal rate and regular rhythm. Heart sounds: Normal heart sounds. Pulmonary: Effort: Pulmonary effort is normal. No respiratory distress. Breath sounds: Normal breath sounds. No stridor. Abdominal: General: There is no distension. Palpations: Abdomen is soft. Tenderness: There is no abdominal tenderness. Musculoskeletal: General: No deformity. Normal range of motion. Skin: General: Skin is warm and dry. Findings: No erythema or rash. Neurological: Mental Status: She is alert and oriented to person, place, and time. Psychiatric: Mood and Affect: Affect normal. Judgment: Judgment normal. 1. Right lower quadrant abdominal pain (R10.31) - MRI showed no concerning findings in the retroperitoneum and no obvious signs of peritoneal disease. 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 Discussed that the hernia may contribute to focal pain and has likely been present for an extended period. Patient has been referred to Dr. Wu for consideration of flank hernia repair; will ensure follow-up appointment is scheduled. No further imaging or intervention required from my perspective at this time. Patient understands and agrees with the plan. The patient consented to the use of [employer] software for draft documentation of the visit consistent with [facility]?s Notice of Privacy Practices. I spent a total of 30 minutes on the date of the service which included preparing to see the patient, completing clinical documentation, performing a medically appropriate examination, counseling and educating the patient/family/caregiver, and independently interpreting results (not separately reported). Mery Hernandez MD 12/16/2024 12:01 [facility]04[facility]02[facility] History of Present illness Narrative* Mery Hernandez MD - 12/16/2024 11:29 AM EDT Images from the original note were not included. Mery Hernandez M.D. Surgical Oncology [address] [facility], [address] [place] [address] Barbara is a 69-year-old female with a history of retroperitoneal/mesenteric/peritoneal nodularity and a flank hernia, presenting for routine follow-up. Barbara was last seen in August 2024 for concerns of retroperitoneal/mesenteric/peritoneal nodularity. An interval CT scan at that time showed no significant changes over 3 months. An MRI was performed subsequently, which did not demonstrate any concerning findings in the retroperitoneum and no obvious signs of peritoneal disease. Barbara was also referred to general surgery for consideration of a flank hernia repair. Barbara reports no major problems since the last visit. She inquires if the scarring observed could be related to a previous nephrectomy. She mentions having an appointment with Dr. Wu for her hernia but had to reschedule due to a liver ultrasound elastography test. 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 Barbara was advised to reschedule her appointment with Dr. Wu. The ROS, medical, surgical, family, and social history were reviewed by Mery Hernandez MD. BP 110/58 Pulse 77 Ht 162.6 cm (5' 4) SpO2 98% BMI 34.50 kg/m No weight on file for this encounter. Physical Exam Constitutional: General: She is not in acute distress. HENT: Head: Normocephalic and atraumatic. Eyes: Pupils: Pupils are equal, round, and reactive to light. Neck: Thyroid: No thyromegaly. Trachea: No tracheal deviation. Cardiovascular: Rate and Rhythm: Normal rate and regular rhythm. Heart sounds: Normal heart sounds. Pulmonary: Effort: Pulmonary effort is normal. No respiratory distress. Breath sounds: Normal breath sounds. No stridor. Abdominal: General: There is no distension. Palpations: Abdomen is soft. Tenderness: There is no abdominal tenderness. Musculoskeletal: General: No deformity. Normal range of motion. Skin: General: Skin is warm and dry. Findings: No erythema or rash. Neurological: Mental Status: She is alert and oriented to person, place, and time. Psychiatric: Mood and Affect: Affect normal. Judgment: Judgment normal. 1. Right lower quadrant abdominal pain (R10.31) - MRI showed no concerning findings in the retroperitoneum and no obvious signs of peritoneal disease. 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 Discussed that the hernia may contribute to focal pain and has likely been present for an extended period. Patient has been referred to Dr. Wu for consideration of flank hernia repair; will ensurefollow-up appointment is scheduled. No further imaging or intervention required from my perspectiveat this time. Patient understands and agrees with the plan. The patient consented to the use of [employer] software for draft documentation of the visit consistent with [facility] Notice of Privacy Practices. I spent a total of 30 minutes on the date of the service which included preparing to see the patient, completing clinical documentation, performing a medically appropriate examination, counseling andeducating the patient/family/caregiver, and independently interpreting results (not separately reported). Mery Hernandez MD 12/16/2024 12:01 PM documented in this encounterMemorial Hospital03-28-2025 Telephone encounter Note * Telephone Encounter - Casandra Samaniego RN - 12/11/2024 12:25 PM EDT Patient calls and notified that lasix was sent to pharmacy. Voices understanding. Casandra Samaniego RN [facility]03[facility] Miscellaneous Notes* Telephone Encounter - Casandra Samaniego RN - 12/11/2024 12:25 PM EDT Patient calls and notified that lasix was sent to pharmacy. Voices understanding. Casandra Samaniego RN * Telephone Encounter - Christine Campbell RN - 12/10/2024 4:18 PM EDT Called and left a voicemail for the Patient to call back and ask for a nurse to receive the providers message. Christine Campbell RN * Telephone Encounter - Nury Alexander APRN.CNP - 12/10/2024 3:04 PM EDT The following approved medication requests have been transmitted electronically. Requested Prescriptions Signed Prescriptions Disp Refills furosemide (LASIX) 40 mg tablet 30 tablet 2 Sig: Take 1 tablet by mouth once daily. Authorizing Provider: JUAN LOCKE Ordering User: NURY ALEXANDER APRN.CNP * Telephone Encounter - Catrina Sutton RN - 12/10/2024 2:30 PM EDT Patient reports she is out of her Furosemide 40 mg. Took last pill today. Requesting refill. At pt's last OV, pt informed PCP that she was taking this medication and reports PCP states she could continue it. Call pt back only if unable to complete this request. The patient has been identified by name and date of : Yes Caregiver verified no other encounters exist for this prescription request: Yes Caregiver confirmed with patient/requestor that no other refills are due, in the near future, with this provider at this time: Yes The last office visit in the department: 11/25/2024 Does the patient have a future office visit with this provider/department: Yes 01/26/2025 Requested Prescriptions Pending Prescriptions Disp Refills furosemide (LASIX) 40 mg tablet Sig: Take 1 tablet by mouth. Catrina Sutton RN [facility] Telephone encounter Note * Telephone Encounter - Christine Campbell RN - 12/10/2024 4:18 PM EDT Called and left a voicemail for the Patient to call back and ask for a nurse to receive the providers message. Christine Campbell RN [facility] Telephone encounter Note* Telephone Encounter - Nury Alexander APRN.CNP - 12/10/2024 3:04 PM EDT The following approved medication requests have been transmitted electronically. Requested Prescriptions Signed Prescriptions Disp Refills furosemide (LASIX) 40 mg tablet 30 tablet 2 Sig: Take 1 tablet by mouth once daily. Authorizing Provider: JUAN LOCKE Ordering User: NURY ALEXANDER APRN.CNP [facility] Telephone encounter Note* Telephone Encounter - Catrina Sutton RN - 12/10/2024 2:30 PM EDT Patient reports she is out of her Furosemide 40 mg. Took last pill today. Requesting refill. At pt's last OV, pt informed PCP that she was taking this medication and reports PCP states she could continue it. Call pt back only if unable to complete this request. The patient has been identified by name and date of : Yes Caregiver verified no other encounters exist for this prescription request: Yes Caregiver confirmed with patient/requestor that no other refills are due, in the near future, with this provider at this time: Yes The last office visit in the department: 11/25/2024 Does the patient have a future office visit with this provider/department: Yes 01/26/2025 Requested Prescriptions Pending Prescriptions Disp Refills furosemide (LASIX) 40 mg tablet Sig: Take 1 tablet by mouth. Catrina Sutton RN [facility]03[facility] Telephone encounter Note* Telephone Encounter - Moraima Sullivan MA - 11/27/2024 4:10 PM EDT Pt informed Moraima Sullivan MA [facility]03-14-2025 Miscellaneous Notes* Telephone Encounter - Moraima Sullivan MA - 11/27/2024 4:10 PM EDT Pt informed Moraima Sullivan MA * Telephone Encounter - Nury Alexander APRN.CNP - 11/27/2024 4:08 PM EDT Please let Barbara know that she should still be taking these meds. Nury Alexander APRN.JUANA * Telephone Encounter - Moraima Sullivan MA - 11/20/2024 3:35 PM EST Spoke with nurse Villafuerte at Dr. Zimmer's office. She reports she has no documentation that meds werediscontinued. She states even on hosp discharge summary it says to continue the furosemide, propranolol and spironolactone. Pt should be taking all of these. [facility] added the midodrine. Faxed chest xray result to [phone]. Requested records. Moraima Sullivan MA * Telephone Encounter - Moraima Sullivan MA - 11/19/2024 4:08 PM EST Left message with Dr. Colin office to return call regarding mutual pt. Gave pts name and . Please see Pallavi's message below. Moraima Sullivan MA * Telephone Encounter - Nury Alexander APRN.CNP - 11/19/2024 1:23 PM EST Please contact Dr. Zimmer/Dr. Glez's office. Barbara was recently hospitalized and she has told me that in the hospital she was taken off her propanolol, furosemide, and spironolactone due to her hypotension and this was all replaced with midodrine. I know these are all important to be taking due to all her liver concerns. Are they aware that she is no longer taking these and is this appropriate?I did see her in the office on 11/17 and she said she was having a little SOB-her chest xray shows: Interval development of small bilateral pleural fluid collections and basal atelectasis, left greaterthan right. I have concerns that her lungs are going to fill up with fluid again with her being offthese medications. Please also request her last 6 months worth off office visits/progress notes from their office so that we have it readily available for review when necessary. Nury Alexander APRN.CNP documented in [facility] Telephone encounter Note * Telephone Encounter - Nury Alexander APRN.CNP - 11/27/2024 4:08 PM EDT Please let Barbara know that she should still be taking these meds. Nury Alexander APRN.CNP [facility]03-12-2025 Instructions* Patient Instructions* Juan Locke, - 11/25/2024 1:28 PM EDT BONE MINERAL DENSITY PATIENT INSTRUCTIONS Bone mineral density testing measures the amount of calcium in certain parts of your bones. This information determines how strong your bones are. The test is used to detect osteoporosis, a disease in which the bone's mineral content and density are low, increasing a person's risk of fractures. Thelumbar spine (lower back) and the hip are the skeletal sites usually examined. For the test, remember that: 1. You cannot take this test if you are . 2. Eat a normal diet on the day of the test. 3. Take your medications as you normally would. 4. DO NOT take calcium supplements (such as Tums) for 24 hours before the test. 5. On the day of the test, leave valuables (jewelry or credit cards) at home. 6. The test should be performed prior to oral, rectal or IV contrast studies, or at least 7 days after any of these studies. For the test, you may be asked to wear a hospital gown. You will lie on your back, on a padded table, in a comfortable position. Generally, you can resume your usual activities immediately. documented in [facility]03-12-2025 [place] History of Present illness Narrative* Juan Locke DO - 11/25/2024 12:57 PM EDT CC: Barbara Meneses is a 69 year old female who presents to the office for follow up HPI: Cirrhosis of the liver, Esophageal varices, Was seen by Deann ARIAS at Dr. Zimmer Application Services Manager office for follow up- was started on omeprazole in the AM, pepcid in the PM and the cholestyraminepowder- is getting ready to start these medications. Has a capsule endoscopy for next week for further evaluation of small intestine. December 16 has an elastography at [facility] Recently in the hospital for a syncope episode. Was told while in the hospital to stop the propranolol and spironolactone due to her lower blood pressure. She hasn't restarted this medication. Was started on iron supplement and midodrine to help maintain her BP. Anemia, secondary to liver disease, had blood transfusion while she was in the hospital of 2 PRBCs.Had a recent blood count that was improved to 9.1 (was in the 5's for hemoglobin). Pleural effusions, was stopped on her diuretic but feels needs to restart this. CXR showed restart of her pleural effusions. Was taking lasix 40 mg a day in the AM- she just restarted this since she knew she was feeling short of breath and it is helping her symptoms. HTN, off spironolactone and propranolol and still low normal range. Taking midodrine PAST MEDICAL HISTORY Diagnosis Date Albuminuria 08/2015 Depression Diverticulitis Esophageal varices (HCC) Headaches Hemorrhoid History of nephrectomy right Hypertension Hypothyroidism IBS (irritable bowel syndrome) Iron deficiency anemia secondary to inadequate dietary iron intake 05/07/2023 Iron malabsorption 05/07/2023 Lung nodules JENN (obstructive sleep apnea) Osteopenia 08/2023 Portal hypertension (HCC) Rectal bleed SOB (shortness of breath) Splenomegaly Type 2 diabetes, uncontrolled, with renal manifestation PAST SURGICAL HISTORY Procedure Laterality Date ASPIRATION BIOPSY, THYROID GLAND Right 07/15/2017 Dr. Larkin COLONOSCOPY SCREENING 02/22/2023 EGD W/O [facility] SPEC VARICIES INJ 02/22/2023 HYSTERECTOMY HX 1993 Total PAST SURGICAL HISTORY OF 1974 right kidney removed THYROIDECTOMY SUBTOTAL/PARTIAL 1991 Current Outpatient Medications Medication Sig Ferrous Gluconate (FERGON) 324 mg (38 mg iron) tablet 324 mg. midodrine (PROAMITINE) 5 mg tablet Take 5 mg by mouth three times a day. oxyCODONE IR (ROXICODONE) 5 mg immediate release tablet Take 5 mg by mouth every 8 hours as needed for pain (pt states she cuts tablet in half). iv contrast (will be provided with radiology test) CT ABD/PEL -Inject, intravenously, once for 1 dose.No IV access, insert saline lock prior to the beginning of sedation, infusion, injection of imaging exam. Discontinue saline lock post exam. If Pt. has a central line or IVAD, may access for administration according to line specific nursing protocol. Once exam is complete flush line and de-accessaccording to line specific nursing protocol in the CT contrast administration guidelines link. enteric contrast (will be provided with radiology test) For CT ABD/PEL W IVCON Routine order Administer, As Directed One Time Only, via Oral, Rectal, both Oral and Rectal, Enteric Tube, Stoma or Indwelling Catheter, Enteric Contrast as designated per enteric contrast guidelines iv contrast (will be provided with radiology test) CT Chest ABD/PEL-Inject, intravenously, once for1 dose.No IV access, insert saline lock prior to the beginning of sedation, infusion, injection of imaging exam. Discontinue saline lock post exam. If Pt. has a central line or IVAD, may access for administration according to line specific nursing protocol. Once exam is complete flush line and de-access according to line specific nursing protocol in the CT contrast administration guidelines link. enteric contrast (will be provided with radiology test) For CT CHESTABD/PEL W IVCON Routine order Administer, As Directed One Time Only, via Oral, Rectal, both Oral and Rectal, Enteric Tube, Stoma orIndwelling Catheter, Enteric Contrast as designated per enteric contrast guidelines zolpidem (AMBIEN) 10 mg Take 1 tablet by mouth at bedtime as needed (insomnia) for up to 30 days. buPROPion (WELLBUTRIN) 100 mg tablet Take 2 tablets to total 200 mg in the morning and 1 tablet in the evening, total of 300 mg a day albuterol HFA (VENTOLIN HFA) 90 mcg/actuation inhaler Inhale 2 Puffs as instructed every 4 hours asneeded for wheezing/shortness of breath. Blood-Glucose Meter,Continuous (FREESTYLE THEE 3 READER) misc Use to check blood sugar at least four (4) times daily. Blood-Glucose Sensor (FREESTYLE THEE 3 SENSOR) louis Apply new sensor every fourteen (14) days to upper arm. SYNTHROID 125 mcg tablet Take 1 tablet by mouth once daily. Take on empty stomach. For Thyroid dulaglutide (TRULICITY) 0.75 mg/0.5 mL pen injector Inject 0.75 mg subcutaneously one time a week. Dx: Type 2 diabetes uncontrolled, Inject dose once per week. Discard Pen After DULoxetine (CYMBALTA) 60 mg capsule TAKE 1 CAPSULE DAILY ergocalciferol 50,000 unit capsule (VITAMIN D2, DRISDOL) Take 1 capsule by mouth one time a week. Lancets lancets Test blood sugar(s) 1 times daily. Dx: Type 2 DM - Uncontrolled E11.65 Insulin: No blood sugar diagnostic (BLOOD GLUCOSE TEST) test strip Test blood sugar(s) 1 times daily. Dx: Type 2 DM - Uncontrolled E11.65 Insulin: No No current facility-administered medications for this visit. ALLERGIES Allergen Reactions Mold Unknown Adhesive Tape (Yamel* Rash Januvia [Sitaglipti* Intolerance GI upset, aching of muscles, headaches Latex Itching Social History Tobacco Use Smoking status: Former Current packs/day: 0.00 Average packs/day: 0.3 packs/day for 5.0 years (1.3 ttl pk-yrs) Types: Cigarettes Start date: 1978 Quit date: 1983 Years since quittin.2 Smokeless tobacco: Never Vaping Use Vaping status: Never Used Substance Use Topics Alcohol use: Yes Comment: Occasionally Drug use: No ROS: See HIP PE: BP 90/60 Pulse 80 Temp (Src) 97.5 (Temporal) Resp 16 Wt 201 lb (91.2kg) Gen: A&O, NAD, non-toxic appearing, Pleasant, appears fatigued, slightly jaundiced, cooperative HEENT: NT/AC, PERRLA, EOMs intact b/l, nares clear and patent b/l, pharynx without erythema, exudate or lesions. Uvula midline. EACs without erythema or debris. TMs pearly land with intact landmarks b/l. Neck: supple, No cervical LAD, no thyromegaly, no carotid bruits CV: RRR, normal S1 and S2, no murmurs, no gallops, no rubs, Pulses 2+ and symmetric in UE and LE b/l Lungs: normal respiratory effort, CTA b/l, no wheezing or rhonchi or rales Abd: soft, NT, ND, +BS, no hepatosplenomegaly MS: FROM all 4 extremities Neuro: CN II-XII intact b/l, strength 5/5 b/l UE and LE, DTRs 2/4 UE and LE, sensation intact. Skin: warm, dry, intact, No rashes or lesions on exposed skin. Foot exam: Monofilament abnormal on right and left feet. Trace leg non pitting edema, symmetric ASSESSMENT/PLAN: 1. Uncontrolled type 2 diabetes mellitus with hyperglycemia (HCC) - ICD9: 250.02, ICD10: E11.65 (primary diagnosis) - Control undetermined, due for labs - Continue current medications - Blood glucose monitoring on a twice daily schedule - Counseled on healthy diet and regular exercise - Discussed need for and benefit of weight loss. BMI 34.50 kg/(m^2) 2. Other iron deficiency anemia - ICD9: 280.8, ICD10: D50.8 Recheck labs in 2-3 weeks and will continue to monitor, secondary to her chronic disease. - COMPLETE BLOOD COUNT AND DIFFERENTIAL - COMPREHENSIVE METABOLIC PANEL 3. Encounter for screening mammogram for malignant neoplasm of breast - ICD9: V76.12, ICD10: Z12.31 - Set up for mammogram, yearly mammogram recommended - Encouraged monthly BSE - Increase calcium intake with supplements or by diet (goal of 1467-2227 mg/day - Follow up for annual exam in one year. - JAN SCREENING 4. Hypothyroidism, acquired - ICD9: 244.9, ICD10: E03.9 - Instructed patient on importance of taking on an empty stomach either first thing in the morning or at bedtime. - continue current dose of Synthroid - SYNTHROID 137 MCG TABLET 5. Vitamin B12 deficiency - ICD9: 266.2, ICD10: E53.8 rx refilled Start on vitamin B12 injections to help fatigue symptoms. - CYANOCOBALAMIN (VIT B-12) 1,000 MCG/ML INJECTION SOLUTION 6. Encounter for screening for osteoporosis - ICD9: V82.81, ICD10: Z13.820 stable 7. Asymptomatic postmenopausal status - ICD9: V49.81, ICD10: Z78.0 Bone density ordered 8. Osteopenia, senile - ICD9: 733.90, ICD10: M85.80 - set up for BMD AP Spine and Hip Unilateral - Reviewed the need for Calcium and Vitamin D supplements and weight bearing exercise as tolerated - DXA-AXIAL SKELETON - BD DXA TRABECULAR BONE SCORE (TBS) 9. Cirrhosis, nonalcoholic (HCC) - ICD9: 571.5, ICD10: K74.60 F/u with Application Services Manager. 10. Hypertension, essential - ICD9: 401.9, ICD10: I10 - Controlled - Continue current medications - Recommend home blood pressure monitoring, to bring results to next visit - Encouraged sodium restriction, DASH or Mediterranean diet - Recommend regular aerobic exercise 11. Iron deficiency anemia, unspecified iron deficiency anemia type - ICD9: 280.9, ICD10: D50.9 See above, improving Juan Locke DO Return if no improvement. Follow up with Juan Locke DO. To ER if develops chest pain, shortness of breath. Discussed risks, benefits, alternatives, and potential side effects of medications. Patient/Guardian expressed understanding and agreed with the plan. See patient instructions. Juan Locke DO [address] [place] [address] documented in this encounterMem[facility] Hospital03-[facility]-2025 Telephone encounter Note * Telephone Encounter - Moraima Sullivan MA - 11/20/2024 3:35 PM EST Spoke with nurse Villafuerte at Dr. Zimmer's office. She reports she has no documentation that meds werediscontinued. She states even on hosp discharge summary it says to continue the furosemide, propranolol and spironolactone. Pt should be taking all of these. Hosp added the midodrine. Faxed chest xray result to [phone]. Requested records. Moraima Sullivan MA [facility]03-[facility] Telephone encounter Note* Telephone Encounter - Moraima Sullivan MA - 11/19/2024 4:08 PM EST Left message with Dr. Colin office to return call regarding mutual pt. Gave pts name and . Please see Pallavi's message below. Moraima Sullivan MA [facility]03-[facility] Telephone encounter Note* Telephone Encounter - Nury Alexander APRN.JUANA - 11/19/2024 1:23 PM EST Please contact Dr. Zimmer/Dr. Glez's office. Barbara was recently hospitalized and she has told me that in the hospital she was taken off her propanolol, furosemide, and spironolactone due to her hypotension and this was all replaced with midodrine. I know these are all important to be taking due to all her liver concerns. Are they aware that she is no longer taking these and is this appropriate?I did see her in the office on 11/17 and she said she was having a little SOB-her chest xray shows: Interval development of small bilateral pleural fluid collections and basal atelectasis, left greaterthan right. I have concerns that her lungs are going to fill up with fluid again with her being off these medications. Please also request her last 6 months worth off office visits/progress notes from their office so that we have it readily available for review when necessary. Nury Alexander APRN.CNP [facility]03-[facility] History of Present illness Narrative* Esme Vizcarra Tech - 11/17/2024 2:30 PM EST Radiology Service Progress Note PATIENT NAME: Barbara Meneses DATE OF SERVICE: November 17, 2024 TIME: 2:21 PM PATIENT IDENTITY VERIFICATION COMPLETED USING TWO (2) IDENTIFIERS: Name and Date of confirmedby patient verbally. FALL SCREENING: Has the patient had 2 falls in the last year or 1 fall with injury or currently using an Ambulatory Assistive Device (Walker, Cane, Wheelchair, Crutches, etc.)? No PATIENT GENDER DATA: Assigned female at . status: : No status:NO. PATIENT RELEVANT IMPLANT DATA REVIEWED: Not Applicable PATIENT PRESENTS WITH AN IMPLANTABLE OR ATTACHED GOLD BUYER: No RADIOLOGY DEPARTMENT: General X-ray: Exam(s) Completed: Chest X-Ray PERIPHERAL IV DATA: Not applicable SIGNED BY: Tara Meyer November 17, 2024 2:21 PM documented in this encounterMemorial Hospital03-04-2025 [place]03-04-2025 [place]03-04-2025 History of Present illness Narrative* Nury Alexander APRN.CNP - 11/17/2024 1:23 PM EST Chief Complaint Patient presents with: ER F/U: anemia, sob, er notes in scanned docs HPI Barbara Meneses is a 69 year old female who presents here today for Above Complaints.. Hospital f/u admitted from 11/07-11/10 at [facility]: Had fall and fatigue on 11/05 and hit her face, chippedher front tooth. Waited for 2 more days to go to the hospital. Her hgb was 5.1-got 3 units PRBC, 1 iron transfusion. They stopped her propanolol, spironolactone, furosemide. States Dr. Zimmer (gen surg/GI with [facility]) is concerned with blood seeping from the liver. Seeing Dr. Zimmer for f/u in 3 days,she states consideration for capsule endoscopy to be discussed.. Currently: feeling very run down. Stool is normal. Chipped her tooth when she blacked out-has plansto see dentist for this. Breathing-took her off of spironolactone and propanolol. Took half of furosemide last night because she didn't want to get a buildup of fluid in her lungs. Past medical history, appointments, medications, allergies reviewed. Previous Medical History PAST MEDICAL HISTORY Diagnosis Date Albuminuria 08/2015 Depression Diverticulitis Esophageal varices (HCC) Headaches Hemorrhoid History of nephrectomy right Hypertension Hypothyroidism IBS (irritable bowel syndrome) Iron deficiency anemia secondary to inadequate dietary iron intake 05/07/2023 Iron malabsorption 05/07/2023 Lung nodules JENN (obstructive sleep apnea) Osteopenia 08/2023 Portal hypertension (HCC) Rectal bleed SOB (shortness of breath) Splenomegaly Type 2 diabetes, uncontrolled, with renal manifestation Previous Surgical History PAST SURGICAL HISTORY Procedure Laterality Date ASPIRATION BIOPSY, THYROID GLAND Right 07/15/2017 Dr. Larkin COLONOSCOPY SCREENING 02/22/2023 EGD W/O [facility] SPEC VARICIES INJ 02/22/2023 HYSTERECTOMY HX 1993 Total PAST SURGICAL HISTORY OF 1974 right kidney removed THYROIDECTOMY SUBTOTAL/PARTIAL 1991 Family History FAMILY HISTORY Problem Relation Age of Onset Osteoporosis Mother other (Hepatitis C) Mother Colon Cancer Father other (myasthenia gravis) Father Aneurysm Father Osteoporosis Sister No Known Problems Brother No Known Problems Brother Aneurysm Brother Cancer Brother bladder other (atrial fib) Brother COPD Brother No Known Problems Maternal Grandmother Stroke Maternal Grandfather Patient Allergies ALLERGIES Allergen Reactions Mold Unknown Adhesive Tape (Yamel* Rash Januvia [Sitaglipti* Intolerance GI upset, aching of muscles, headaches Latex Itching Current Medications Current Outpatient Medications on File Prior to Visit Medication Sig Ferrous Gluconate (FERGON) 324 mg (38 mg iron) tablet 324 mg. midodrine (PROAMITINE) 5 mg tablet Take 5 mg by mouth three times a day. spironolactone (ALDACTONE) 50 mg tablet Take 2 tablets by mouth once daily. oxyCODONE IR (ROXICODONE) 5 mg immediate release tablet Take 5 mg by mouth every 8 hours as needed for pain (pt states she cuts tablet in half). iv contrast (will be provided with radiology test) CT ABD/PEL -Inject, intravenously, once for 1 dose.No IV access, insert saline lock prior to the beginning of sedation, infusion, injection of imaging exam. Discontinue saline lock post exam. If Pt. has a central line or IVAD, may access for administration according to line specific nursing protocol. Once exam is complete flush line and de-accessaccording to line specific nursing protocol in the CT contrast administration guidelines link. enteric contrast (will be provided with radiology test) For CT ABD/PEL W IVCON Routine order Administer, As Directed One Time Only, via Oral, Rectal, both Oral and Rectal, Enteric Tube, Stoma or Indwelling Catheter, Enteric Contrast as designated per enteric contrast guidelines propranolol (INDERAL) 10 mg tablet Take 0.5 tablets by mouth three times a day. iv contrast (will be provided with radiology test) CT Chest ABD/PEL-Inject, intravenously, once for1 dose.No IV access, insert saline lock prior to the beginning of sedation, infusion, injection of imaging exam. Discontinue saline lock post exam. If Pt. has a central line or IVAD, may access for administration according to line specific nursing protocol. Once exam is complete flush line and de-access according to line specific nursing protocol in the CT contrast administration guidelines link. enteric contrast (will be provided with radiology test) For CT CHESTABD/PEL W IVCON Routine order Administer, As Directed One Time Only, via Oral, Rectal, both Oral and Rectal, Enteric Tube, Stoma orIndwelling Catheter, Enteric Contrast as designated per enteric contrast guidelines buPROPion (WELLBUTRIN) 100 mg tablet Take 2 tablets to total 200 mg in the morning and 1 tablet in the evening, total of 300 mg a day albuterol HFA (VENTOLIN HFA) 90 mcg/actuation inhaler Inhale 2 Puffs as instructed every 4 hours asneeded for wheezing/shortness of breath. Blood-Glucose Meter,Continuous (FREESTYLE THEE 3 READER) misc Use to check blood sugar at least four (4) times daily. Blood-Glucose Sensor (FREESTYLE THEE 3 SENSOR) louis Apply new sensor every fourteen (14) days to upper arm. SYNTHROID 125 mcg tablet Take 1 tablet by mouth once daily. Take on empty stomach. For Thyroid dulaglutide (TRULICITY) 0.75 mg/0.5 mL pen injector Inject 0.75 mg subcutaneously one time a week. Dx: Type 2 diabetes uncontrolled, Inject dose once per week. Discard Pen After DULoxetine (CYMBALTA) 60 mg capsule TAKE 1 CAPSULE DAILY ergocalciferol 50,000 unit capsule (VITAMIN D2, DRISDOL) Take 1 capsule by mouth one time a week. Lancets lancets Test blood sugar(s) 1 times daily. Dx: Type 2 DM - Uncontrolled E11.65 Insulin: No blood sugar diagnostic (BLOOD GLUCOSE TEST) test strip Test blood sugar(s) 1 times daily. Dx: Type 2 DM - Uncontrolled E11.65 Insulin: No zolpidem (AMBIEN) 10 mg Take 1 tablet by mouth at bedtime as needed (insomnia) for up to 30 days. furosemide (LASIX) 20 mg tablet Take 1 tablet by mouth once daily. No current facility-administered medications on file prior to visit. Social History Social History Tobacco Use Smoking status: Former Current packs/day: 0.00 Average packs/day: 0.3 packs/day for 5.0 years (1.3 ttl pk-yrs) Types: Cigarettes Start date: 1978 Quit date: 1983 Years since quittin.2 Smokeless tobacco: Never Vaping Use Vaping status: Never Used Substance Use Topics Alcohol use: Yes Comment: Occasionally Drug use: No Review of Symptoms REVIEW OF SYSTEMS See HPI, otherwise negative EXAM: BP 106/62 (BP Site: Left Arm, BP Position: Sitting, BP Cuff Size: Regular Adult) Pulse 109 Wt 90.4 kg (199 lb 6.4 oz) SpO2 98% BMI 34.23 kg/m General Appearance: Well appearing, alert, in no acute distress, well-hydrated, well nourished, fatigued-appearing Lungs: diminished to BLL. Heart: RRR without murmur, gallop, or rubs. No ectopy. Psychiatric: pleasant, cooperative. Health Maintenance List Hepatitis A Vaccine(1 of 2 - Risk 2-dose series) Never done Hepatitis B Vaccine(1 of 3 - Risk 3-dose series) Never done Bone Density Screening Never done Mammogram Screening due on 08/21/2024 LDL Cholesterol due on 12/10/2024 Influenza Vaccine(1) due on 03/15/2025 RSV Vaccine(1 - Risk 60-74 years 1-dose series) due on 03/31/2025 Shingrix Vaccine(1 of 2) due on 03/31/2025 Pneumococcal Vaccine: 50+(1 of 2 - PCV) due on 03/31/2025 Covid-19 Vaccine( - 2023- season) due on 05/26/2025 Diabetic Foot Exam due on 12/29/2024 HbA1C due on 01/06/2025 Dilated Retinal Exam due on 01/21/2025 Urine Albumin:Creatinine Ratio due on 04/16/2025 Colorectal Cancer Screening due on 06/08/2025 Annual PCP Team Chronic Disease Visit due on 09/01/2025 BP Controlled (<130/80) due on 10/26/2025 DTaP,Tdap,Td Vaccine(2 - Td or Tdap) due on 06/20/2028 Hepatitis C Screening Completed Advance Directive Discussion Discontinued Data reviewed Previous records, office notes ASSESSMENT/PLAN: 1. Portal venous hypertension (HCC) - ICD9: 572.3, ICD10: K76.6 (primary diagnosis) - COMPLETE BLOOD COUNT AND DIFFERENTIAL - IRON AND TIBC - FERRITIN - XR CHEST 2V FRONTAL/LAT - HEPATIC FUNCTION PNL 2. Iron deficiency anemia, unspecified iron deficiency anemia type - ICD9: 280.9, ICD10: D50.9 - COMPLETE BLOOD COUNT AND DIFFERENTIAL - IRON AND TIBC - FERRITIN 3. Thrombocytopenia (HCC) - ICD9: 287.5, ICD10: D69.6 - COMPLETE BLOOD COUNT AND DIFFERENTIAL - IRON AND TIBC - FERRITIN 4. Iron malabsorption - ICD9: 579.8, ICD10: K90.9 - COMPLETE BLOOD COUNT AND DIFFERENTIAL - IRON AND TIBC - FERRITIN 5. Esophageal varices determined by endoscopy (HCC) - ICD9: 456.1, ICD10: I85.00 - COMPLETE BLOOD COUNT AND DIFFERENTIAL - IRON AND TIBC - FERRITIN Nury Alexander APRN.JUANA [facility] Telephone encounter Note * Telephone Encounter - Juan Locke DO - 11/11/2024 3:38 PM EST Noted, thanks for the update Juan Locke DO [facility] Miscellaneous Notes* Telephone Encounter - Juan Locke DO - 11/11/2024 3:38 PM EST Noted, thanks for the update Juan Locke DO * Telephone Encounter - Mariana Pacheco LPN - 11/10/2024 1:23 PM EST Patient calling she is currently in [facility] said syncope at home in bathroom, fall and hit her tooth and cut her lip. She woke up on the bathroom floor. She thinks was taken to hospital on 11/05/2024. Shehad to have blood transfusion hemoglobin was 5.1 she thinks, also had iron infusion. She said Dr Zimmer did CT and thinks might be her liver that is the issue. She was having black stools, she is notsure when she will be discharged. She is having issues with low blood pressure now. documented [facility]25 [facility] Telephone encounter Note* Telephone Encounter - Mariana Pacheco LPN - 11/10/2024 1:23 PM EST Patient calling she is currently in [facility] said syncope at home in bathroom, fall and hit her tooth and cut her lip. She woke up on the bathroom floor. She thinks was taken to hospital on 11/05/2024. Shehad to have blood transfusion hemoglobin was 5.1 she thinks, also had iron infusion. She said Dr Saad did CT and thinks might be her liver that is the issue. She was having black stools, she is notsure when she will be discharged. She is having issues with low blood pressure now. [facility] Telephone encounter Note* Telephone Encounter - Kavitha Vasques - 11/09/2024 8:42 AM EST Patient called to cancel treatments for this week. Patient states she is inpatient at [facility]. Patient stated she had blood transfusion, she believes it was 3 units. [facility] Work Phone: 1(862) 585-840102-24-2025 Miscellaneous Notes* Telephone Encounter - Kavitha Vasques - 11/09/2024 8:42 AM EST Patient called to cancel treatments for this week. Patient states she is inpatient at [facility]. Patient stated she had blood transfusion, she believes it was 3 units. documented in [facility] encounterMem[facility]02-22-2025 Evaluation note* Diagnosis Onset Date Resolution Status Admit Date Anemia requiring transfusions acute November 07, 2024 2:07pm Esophageal varices acute Februa 2024 2:07pm Syncope acute November 07, 2024 2:07pm Cirrhosis chronic November 07, 2024 2:07pm Pleural effusion on left inactive November 07, 2024 2:07pm Esophageal varices acute November 20, 2024 10:28am Liver failure acute November 20, 2024 10:28am Cirrhosis chronic November 20 10:28am ABLA (acute blood loss anemia) acute February 09, 2025 4:18pm Acute upper gastrointestinal bleeding acute February 09, 2025 4 :18pm [facility] Work Phone: 1(301) 350-705102-22-2025 Evaluation note* Diagnosis Onset Date Resolution Status Admit Date Anemia requiring transfusions acute November 07, 2024 2:07pm Esophageal varices acute Februa 2024 2:07pm Syncope acute November 07, 2024 2:07pm Cirrhosis chronic November 07, 2024 2:07pm Pleural effusion on left inactive November 07, 2024 2:07pm Esophageal varices acute November 20, 2024 10:28am Liver failure acute November 20, 2024 10:28am Cirrhosis chronic November 20 10:28am ABLA (acute blood loss anemia) acute February 09, 2025 4:18pm Acute upper gastrointestinal bleeding acute February 09, 2025 4 :18pm Pleural effusion on left inactive February 09, 2025 4:18pm [facility] Work Phone: 1(795) 653-802902-22-2025 Evaluation note* Diagnosis Onset Date Resolution Status Admit Date Anemia requiring transfusions acute November 07, 2024 2:07pm Esophageal varices acute Februa 2024 2:07pm Syncope acute November 07, 2024 2:07pm Cirrhosis chronic November 07, 2024 2:07pm Pleural effusion on left inactive November 07, 2024 2:07pm Esophageal varices acute November 20, 2024 10:28am Liver failure acute November 20, 2024 10:28am Cirrhosis chronic November 20 10:28am ABLA (acute blood loss anemia) resol mikie February 09, 2025 4:18pm Acute upper gastrointestinal bleeding resolved February 09, 2025 4 :18pm Pleural effusion on left inactive February 09, 2025 4:18pm Esophageal varices acute February 142024 1:03pm Liver failure acute February 26, 2025 1:03pm Cirrhosis chronic February 26 1:03pm [facility] Work Phone: 1(487) 400-553602-22-2025 Evaluation note* Diagnosis Onset Date Resolution Status Admit Date Anemia requiring transfusions acute November 07, 2024 2:07pm Esophageal varices acute Februa 2024 2:07pm Syncope acute November 07, 2024 2:07pm Cirrhosis chronic November 07, 2024 2:07pm Pleural effusion on left inactive November 07, 2024 2:07pm Esophageal varices acute November 20, 2024 10:28am Cirrhosis chronic November 20 10:28am Liver failure chronic November 20, 2024 10:28am ABLA (acute blood loss anemia) resol mikie February 09, 2025 4:18pm Acute upper gastrointestinal bleeding resolved February 09, 2025 4 :18pm Pleural effusion on left inactive February 09, 2025 4:18pm Esophageal varices acute February 142024 1:03pm Cirrhosis chronic February 26 1:03pm Liver failure chronic February 26, 2025 1:03pm [facility] Work Phone: 1(744) 770-238502-20-2025 Telephone encounter Note* Telephone Encounter - Sandy Wallace - 11/05/2024 1:15 PM EST Spoke with pt and this is scheduled. Sandy Wallace [facility]02-20-[facility] Miscellaneous Notes* Telephone Encounter - Sandy Wallace - 11/05/2024 1:15 PM EST Spoke with pt and this is scheduled. Sandy Wallace * Telephone Encounter - Marielle Melton - 11/04/2024 4:57 PM EST I called and left a message for Barbara to call back to schedule her iron sucrose infusions. Marielle Louie * Telephone Encounter - Lela Will LPN - 11/04/2024 4:04 PM EST Per Beata Boone- Pt remains iron deficient. Can you please make sure that she is rescheduled forIV iron sucrose x5. Patient had iron studies yesterday. Please check referral status and schedule if approved. Lela Will LPN documented in [facility] encounterMem[facility] Hospital02-19-2025 Telephone encounter Note * Telephone Encounter - Marielle Melton - 11/04/2024 4:57 PM EST I called and left a message for Barbara to call back to schedule her iron sucrose infusions. Marielle [facility]t [facility] Progress note* Result Encounter Note - Lela Will LPN - 11/04/2024 4:06 PM EST See phone note. Lela Will LPN [facility] Miscellaneous Notes* Result Encounter Note - Lela Will LPN - 11/04/2024 4:06 PM EST See phone note. Lela Will LPN * Telephone Encounter - Beata Boone - 11/04/2024 3:35 PM EST Pt remains iron deficient. Can you please make sure that she is rescheduled for IV iron sucrose x5 documented in this encounterMem[facility] Hospital02-19-2025 Telephone encounter Note * Telephone Encounter - Lela Will LPN - 11/04/2024 4:04 PM EST Per Beata Boone- Pt remains iron deficient. Can you please make sure that she is rescheduled forIV iron sucrose x5. Patient had iron studies yesterday. Please check referral status and schedule if approved. Lela Will LPN [facility] Telephone encounter Note* Telephone Encounter - Beata Boone - 11/04/2024 3:35 PM EST Pt remains iron deficient. Can you please make sure that she is rescheduled for IV iron sucrose x5 [facility] Work Phone: 1(543) 742-137502-17-2025 Instructions* Patient Instructions* Pavithra Del Rosario RD - 11/02/2024 1:33 PM EST Consider change to Boost Max or Boost Glucose Control Aim for 2000 mg sodium or less Look for frozen meals with 600 mg sodium or less Follow Mediteranean style eating. Consume whole grains (whole grain breads/cereals, oatmeal, barley, popcorn). [id number]+ grams of fiber per day. Consume fresh/frozen fruit and vegetables (blueberries, nectarines, raspberries, apples, apricots, figs, prunes, dark leafy greens) Include a variety of deep colors) Consume lean protein (chicken, turkey breast, fish. Avoid eating red meats more than twice per month if at all. Aim for cheese and meats with 3 grams of fat or less per ounce. Dairy sources primarly low fat/nonfat yogurt and cheese. Use low fat cooking methods such as baking, broiling, roasted, and grilled Use healthy fats such as primarily olive oil, flaxseed oil, walnuts, almonds, pecans, olives and avocado but in limited amounts. Increase foods rich in omega-3 fatty acids (salmon, tuna, robert, sardines, leanna) Aim for a small serving daily of Almonds/walnuts and ground flaxseed/aguilar seeds (2 Tablespoons/day), seeds Read food labels. Avoid products made with partially hydrogenated fats/oils. Include a variety of spices and herbs daily (oregano, sima, tumeric, kelly, garlic, etc) Include snack at night of protein Hugo documented in this encounterMem[facility]02-17-2025 [place] History of Present illness Narrative* Pavithra Del Rosario RD - 11/02/2024 12:59 PM EST Nutrition Therapy Initial Assessment Nutrition Diagnosis: Behavioral-Environmental: Food and nutrition related knowledge deficit, related to, lack of prior exposure to information , as evidenced by change in existing diagnosis or condition. RECOMMENDED MALNUTRITION DIAGNOSIS: NO MALNUTRITION IDENTIFIED NUTRITION CARE PLAN Nutrition Intervention 11/02/2024: comprehensive nutrition education Consider change to Boost Max or Boost Glucose Control Aim for 2000 mg sodium or less Look for frozen meals with 600 mg sodium or less Follow Mediteranean style eating. Consume whole grains (whole grain breads/cereals, oatmeal, barley, popcorn). [id number]+ grams of fiber per day. Consume fresh/frozen fruit and vegetables (blueberries, nectarines, raspberries, apples, apricots, figs, prunes, dark leafy greens) Include a variety of deep colors) Consume lean protein (chicken, turkey breast, fish. Avoid eating red meats more than twice per month if at all. Aim for cheese and meats with 3 grams of fat or less per ounce. Dairy sources primarly low fat/nonfat yogurt and cheese. Use low fat cooking methods such as baking, broiling, roasted, and grilled Use healthy fats such as primarily olive oil, flaxseed oil, walnuts, almonds, pecans, olives and avocado but in limited amounts. Increase foods rich in omega-3 fatty acids (salmon, tuna, robert, sardines, leanna) Aim for a small serving daily of Almonds/walnuts and ground flaxseed/aguilar seeds (2 Tablespoons/day), seeds Read food labels. Avoid products made with partially hydrogenated fats/oils. Include a variety of spices and herbs daily (oregano, sima, tumeric, kelly, garlic, etc) Include snack at night of protein Nutrition Monitoring & Evaluation: adherence to recommendations Need for Follow up: 4-6 weeks or as needed Patient presents for initial MNT as relates to HILARIO, diabetes on Trulicity, dyslipidemia, JENN - hasnot had CPaP for a while. . States does not usually sleep well, at night, sleeping during the day. Weight has remained stable. Does not check blood sugars. Intake noted for 3 meals and two snacks, note frequent sweets/snacks and frozen meals. 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 Resting Metabolic Rate: 1394 Malnutrition Screening Significant unintentional weight loss? No Eating less than 75% of usual intake for more than 2 weeks? No Potential Signs of Inflammation: chronic condition Education Materials Provided: Mediterranean Diet and Your Sodium Controlled Diet READINESS TO LEARN Cognitive ability: Alert and oriented Motivation to learn: Interested Family support: Unable to assess - Family not present Instruction provided to: Patient Patient learns best by: Individual Instruction Factors affecting learning: None Physical limitations affecting learning: None Referred/Supervised by: Chucky/Tristin MAUROT Billing Type: Initial Assess/15 min 2 units SIGNATURE: Pavithra Del Rosario RD PATIENT NAME: Barbara Meneses DATE: November 02, 2024 TIME: 1:02 PM documented in this encounterMem[facility] Hospital02-10-2025 [place] History of Present illness Narrative* Beata Boone - 10/26/2024 1:03 PM EST Barbara Meneses 1955 10/26/2024 Hematologic problem(s): 1) WAQAR. 2) Thrombocytopenia. 3) Splenomegaly likely from portal hypertension. Has esophageal varices. HPI: The patient is a 68-year-old female with a past medical history significant for frequent headaches, cervical spine degenerative disease with radiculopathy, hypertension, obstructive sleep apnea,elevated LFTs, diverticulitis, internal hemorrhoids, rectal bleeding, irritable bowel syndrome, type 2 diabetes, hypothyroidism, dyslipidemia, right shoulder subacromial bursitis, generalized anxietydisorder, major depressive disorder with single episode in remission, history of nephrectomy, panicattacks, fatigue and vitamin D deficiency. Started having rectal bleeding about 6 months prior to initial consultation here. Blood every time wipes after BM. Occasional blood in toilet. Formed to loose stools. EGD by Dr. eBn Garcia 02/22/2023. Patient was found to have LA grade a (1 or more mucosal breaks less than 5 mm, not extending between tops of 2 mucosal folds) esophagitis with no bleeding observed 35 cm from the incisors. A mild Schatzki ring was found at the GE junction. 1 column of nonbleeding grade 2 varices were found in the lower third esophagus 33 cm from the incisors. No stigmata of recent bleeding were evident and no red batsheva signs were present. There was diffuse moderately erythematous mucosa without bleeding in the greater curvature of the stomach. Biopsies were obtained. The examined duodenum was normal. Biopsies were obtained. There was a medium size hiatal hernia. Middle thirdesophagus was normal biopsies were obtained. Colonoscopy performed same day revealed nonthrombosed external hemorrhoids, nonthrombosed internal hemorrhoids and internal hemorrhoids that prolapse with straining but required manual replacement into the anal canal on digital rectal exam. Diverticulosis in the sigmoid and descending colon. One 5 mm polyp in the proximal sigmoid colon that was removed with cold biopsy. Inflamed mucosa in the proximal rectum biopsied. Pathology: A. Duodenum, biopsy: A fragment of duodenal mucosa, no pathologic diagnosis. B. Antrum, biopsy: Mild gastritis. See microscopic description and comment. C. Distal esophagus, biopsy: Fragments of gastroesophageal mucosa with moderate chronic inflammation. Intestinal metaplasia (goblet cell metaplasia) not identified. See comment. D. Greater curvature, biopsy: Minimal gastritis. See microscopic description. E. Mid esophagus, biopsy: A fragment of gastroesophageal mucosa with chronic inflammation. Intestinal metaplasia (goblet cell metaplasia) not identified. See comment. F. Colon, random biopsy: Fragments of colonic mucosa, no pathologic diagnosis. G. Proximal sigmoid polyp, biopsy: Hyperplastic polyp. H. Rectal inflammation, biopsy: A fragment of colonic mucosa with focal ulceration and acute inflammation. GERD--omeprazole, a long, long time. On oral iron 4-6 months. Tolerates well. 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 No children. Two miscarriages. Used to have menorrhagia. Diagnosed with endometriosis and had hysterectomy at about age 29. Previous right nephrectomy. Congenital atrophy. Previous ultrasound liver and spleen demonstrated the liver had a coarse echotexture with increasedechogenicity and a smooth surface contour with no lesions. Splenomegaly with spleen measuring 14.2 cm. There was a splenic calcification measuring 9 x 6 x 9 mm. No other focal lesion. States she was diagnosed with celiac, was told to start gluten free diet about a year ago. Presents for ongoing hematologic management. Interim history: Ms. Meneses presents today for follow up of WAQAR and to review labs. Labs so some improvement in hgb. No transfusion. She c/o of fatigue. I feel like I am losing more blood than I was before Chronic rectal bleeding. Notes blood on the tissue with each BM as well as in the toilet. She follows with colorectal surg. Follows with GI for hemmorhoids, HILARIO, reviewed recent MRI impression from [facility] - unremarkable. BP has been better lately. Otherwise no new issues. Reviewed role in management hgb. Encouraged her to continue to follow closely with GI providers. 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 Larkin COLONOSCOPY SCREENING 02/22/2023 EGD W/O [facility] SPEC VARICIES INJ 02/22/2023 HYSTERECTOMY HX 1993 Total PAST SURGICAL HISTORY OF 1974 right kidney removed THYROIDECTOMY SUBTOTAL/PARTIAL 1991 ALLERGIES Allergen Reactions Mold Unknown Adhesive Tape (Yamel* Rash Januvia [Sitaglipti* Intolerance GI upset, aching of muscles, headaches Latex Itching Current Outpatient Medications Medication Sig spironolactone (ALDACTONE) 50 mg tablet Take 2 tablets by mouth once daily. oxyCODONE IR (ROXICODONE) 5 mg immediate release tablet Take 5 mg by mouth every 8 hours as needed for pain (pt states she cuts tablet in half). propranolol (INDERAL) 10 mg tablet Take 0.5 tablets by mouth three times a day. zolpidem (AMBIEN) 10 mg Take 1 tablet by mouth at bedtime as needed (insomnia) for up to 30 days. buPROPion (WELLBUTRIN) 100 mg tablet Take 2 tablets to total 200 mg in the morning and 1 tablet in the evening, total of 300 mg a day albuterol HFA (VENTOLIN HFA) 90 mcg/actuation inhaler Inhale 2 Puffs as instructed every 4 hours asneeded for wheezing/shortness of breath. Blood-Glucose Meter,Continuous (FREESTYLE THEE 3 READER) [facility] [place] Use to check blood sugar at least four (4) times daily. Blood-Glucose Sensor (FREESTYLE THEE 3 SENSOR) [place] Apply new sensor every fourteen (14) days to upper arm. SYNTHROID 125 mcg tablet Take 1 tablet by mouth once daily. Take on empty stomach. For Thyroid dulaglutide (TRULICITY) 0.75 mg/0.5 mL pen injector Inject 0.75 mg subcutaneously one time a week. Dx: Type 2 diabetes uncontrolled, Inject dose once per week. Discard Pen After DULoxetine (CYMBALTA) 60 mg capsule TAKE 1 CAPSULE DAILY ergocalciferol 50,000 unit capsule (VITAMIN D2, DRISDOL) Take 1 capsule by mouth one time a week. Lancets lancets Test blood sugar(s) 1 times daily. Dx: Type 2 DM - Uncontrolled E11.65 Insulin: No blood sugar diagnostic (BLOOD GLUCOSE TEST) test strip Test blood sugar(s) 1 times daily. Dx: Type 2 DM - Uncontrolled E11.65 Insulin: No iv contrast (will be provided with radiology test) CT ABD/PEL -Inject, intravenously, once for 1 dose.No IV access, insert saline lock prior to the beginning of sedation, infusion, injection of imaging exam. Discontinue saline lock post exam. If Pt. has a central line or IVAD, may access for administration according to line specific nursing protocol. Once exam is complete flush line and de-accessaccording to line specific nursing protocol in the CT contrast administration guidelines link. enteric contrast (will be provided with radiology test) For CT ABD/PEL W IVCON Routine order Administer, As Directed One Time Only, via Oral, Rectal, both Oral and Rectal, Enteric Tube, Stoma or Indwelling Catheter, Enteric Contrast as designated per enteric contrast guidelines iv contrast (will be provided with radiology test) CT Chest ABD/PEL-Inject, intravenously, once for1 dose.No IV access, insert saline lock prior to the beginning of sedation, infusion, injection of imaging exam. Discontinue saline lock post exam. If Pt. has a central line or IVAD, may access for administration according to line specific nursing protocol. Once exam is complete flush line and de-access according to line specific nursing protocol in the CT contrast administration guidelines link. enteric contrast (will be provided with radiology test) For CT CHESTABD/PEL W IVCON Routine order Administer, As Directed One Time Only, via Oral, Rectal, both Oral and Rectal, Enteric Tube, Stoma orIndwelling Catheter, Enteric Contrast as designated per enteric contrast guidelines furosemide (LASIX) 20 mg tablet Take 1 tablet by mouth once daily. No current facility-administered medications for this visit. Social History Tobacco Use Smoking status: Former Current packs/day: 0.00 Average packs/day: 0.3 packs/day for 5.0 years (1.3 ttl pk-yrs) Types: Cigarettes Start date: 1978 Quit date: 1983 Years since quittin.1 Smokeless tobacco: Never Vaping Use Vaping status: Never Used Substance Use Topics Alcohol use: Yes Comment: Occasionally Drug use: No Family History Problem Relation Age of Onset Osteoporosis Mother other (Hepatitis C) Mother Colon Cancer Father other (myasthenia gravis) Father Aneurysm Father Osteoporosis Sister No Known Problems Brother No Known Problems Brother Aneurysm Brother Cancer Brother bladder other (atrial fib) Brother COPD Brother No Known Problems Maternal Grandmother Stroke Maternal Grandfather ROS: Constitutional: No fever. No drenching night sweats. Normal appetite. No unexplained weight loss. All systems reviewed on 10/26/2024 with pertinent positives and negatives as outlined in the interval history. PHYSICAL EXAM: Vitals: Blood pressure 114/73, pulse 96, temperature 36.5 C (97.7 F), temperature source Temporal, weight 88.7 kg (195 lb 8 oz), SpO2 100%. Well-appearing and in no acute distress. EYES: Sclerae are anicteric bilaterally. LYMPHATIC: There is no palpable cervical or supraclavicular adenopathy. RESPIRATORY: Inspiratory breath sounds are of normal intensity in all leong. No rales, wheezes or rhonchi. CARDIOVASCULAR: Rhythm is regular. ABDOMEN: The abdomen is nondistended. No palpable splenomegaly or hepatomegaly. Extremities: No swelling or edema. SKIN: No jaundice. I have performed the physical exam today (10/26/2024) and have edited the note to correlate with current findings. Labs: Lab Results Component Value Date WBC 2.83 (L) 10/26/2024 HB 8.6 (L) 10/26/2024 MCV 85.5 10/26/2024 PLT 92 (L) 10/26/2024 Lab Results Component Value Date NA 138 06/18/2024 K 3.6 (L) 06/18/2024 CO2 21 (L) 06/18/2024 BUN 11 06/18/2024 CREAT 1.05 (H) 09/17/2024 TBILI 0.8 06/18/2024 TPROT 5.7 (L) 06/18/2024 ALB 3.8 (L) 06/18/2024 ALKPHOS 127 (H) 06/18/2024 ALT 17 06/18/2024 AST 22 06/18/2024 PATHOLOGY: Bone marrow biopsy 10/03/2023: FINAL DIAGNOSIS A-C. Bone marrow, left posterior iliac crest, aspirate, biopsy, clot and peripheral smear: - Normocellular marrow with maturing trilineage hematopoiesis, (see comment and microscopic description). Diagnosis Comment The bone marrow is roughly normocellular for age (25-30% overall cellularity). There is no overt morphologic dysplasia and blasts are not increased. Flow cytometry (see separate report) revealed no evidence of involvement by a lymphoproliferative disorder or abnormal blast population. Cytogenetics (see separate report) demonstrated a normal female karyotype. The patient has a history of intermittent anemia and thrombocytopenia. No stainable storage iron was identified by iron stain of the biopsy and aspirate specimens; though iron studies from 07/2023 were within normal limits, studies had previously demonstrated iron deficiency as recently as 02/2023. The patient is also reported to have splenomegaly (U/S from 02/2023), which likely contributes in part to her thrombocytopenia. Myeloid NGS studies have been ordered and will be reported separately when available. ASSESSMENT/PLAN: (D50.9) Iron deficiency anemia, unspecified iron deficiency anemia type (primary encounter diagnosis) (R16.1) Splenomegaly (D69.6) Thrombocytopenia (HCC) (I85.10) Secondary esophageal varices without bleeding (HCC) Assessment: -WAQAR secondary to chronic blood loss (hemorrhoids) and likely malabsorption due to chronic gastritis and PPI use. - pt states that she is unable to have hemorrhoid banding. -Thrombocytopenia. Stable. Not on anticoagulation or antiplatelet therapy. 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 -Reviewed the results of the bone marrow biopsy in detail--absent iron stores. No morphologic evidence of MDS. Flow cytometry indicated no evidence of plasma cell disorder or lymphoma. -Was tolerating oral iron well, however states she stopped taking due to GI upset and constipation.Discussed the use of iron sucrose. Reviewed schedule of administration and potential side effects. She agreed to proceed. Plan to repeat due to continued bleeding - last dose of IV iron 10/13/2024, would plan to repeat due to how low stores were at last check. -continued rectal bleeding. - Dr. Dion HILARIO Plan: - reviewed CBC today, no transfusion -plan for repeat IV iron sucrose 200 mg x 5 -discussed will likely need to continue to replenish iron stores as she continues to experience chonic blood loss, would plan for potential maintenance dosing pending next set of labs -continue to follow with GI, hepatology, pulm, pcp -follow up with Dr. Hernandez Repeat labs in about 6 -8 weeks from last dose of IV iron CBC, ferritin, iron studies, b12, mma followed by OV Beata Boone APRN.ASSOCIATE SOFTWARE APPLICATION ENGINEER I spent a total of 30 minutes on the date of the service which included preparing to see the patient, [id number] patient care, completing clinical documentation, counseling and educating the patient/family/caregiver, and communicating results to the patient/family/caregiver. Portions of this note including HPI, ROS, impression/plan may have been copied forward as to provide important historical information essential in contributing to medical decision making. Documentation has been reviewed and edited as necessary to support clinical decision making for today's visit and to reflect my own independent evaluation of this patient. [facility] Telephone encounter Note * Telephone Encounter - Marielle Melton - 10/21/2024 12:53 PM EST I called and spoke to Barbara and she scheduled lab work and office visit for this Saturday10/26/24 Marielle Luoie [facility]02-05-2025 Miscellaneous Notes* Telephone Encounter - Marielle Melton - 10/21/2024 12:53 PM EST I called and spoke to Barbara and she scheduled lab work and office visit for this Saturday10/26/24 Marielle Louie * Telephone Encounter - Eloise Donovan LPN - 10/21/2024 11:04 AM EST Please reach out to reschedule her cancelled 10/16 lab and OV. Eloise Donovan LPN * Telephone Encounter - Beata Boone - 10/21/2024 8:45 AM EST Pt was scheduled for appt on 10/16 with labs prior. Beata Boone APRN.ASSOCIATE SOFTWARE APPLICATION ENGINEER * Telephone Encounter - Eloise Donovan LPN - 10/20/2024 3:50 PM EST Patient calls office stating she has completed her iron infusions and is asking when she should recheck labs. She states she continually has some rectal bleeding, but feels it has increased some the last few days. She is feeling quite fatigued and is wondering what her Hgb is. She denies palpitations, SOB, elevated pulse or chest pain. Her only symptom is fatigue. Please advise. Eloise Donovan LPN documented in [facility]Mem[facility]02-[facility]-2025 Telephone encounter Note * Telephone Encounter - Eloise Donovan LPN - 10/21/2024 11:04 AM EST Please reach out to reschedule her cancelled 10/16 lab and OV. Eloise Donovan LPN [facility] Telephone encounter Note* Telephone Encounter - Beata Boone - 10/21/2024 8:45 AM EST Pt was scheduled for appt on 10/16 with labs prior. Beata Boone APRN.ASSOCIATE SOFTWARE APPLICATION ENGINEER [facility] Work Phone: 1(996) 934-748002-04-2025 Telephone encounter Note* Telephone Encounter - Eloise Donovan LPN - 10/20/2024 3:50 PM EST Patient calls office stating she has completed her iron infusions and is asking when she should recheck labs. She states she continually has some rectal bleeding, but feels it has increased some the last few days. She is feeling quite fatigued and is wondering what her Hgb is. She denies palpitations, SOB, elevated pulse or chest pain. Her only symptom is fatigue. Please advise. Eloise Donovan LPN [facility]01-13-20[facility] Telephone encounter Note* Telephone Encounter - Lynnette Masters RN - 09/28/2024 10:17 AM EST The patient has been identified by name and date of : Yes Caregiver verified no other encounters exist for this prescription request: Yes Caregiver confirmed with patient/requestor that no other refills are due, in the near future, with this provider at this time: Yes The last office visit in the department: 08/26/2024 Does the patient have a future office visit with this provider/department: 11/25/2024 Requested Prescriptions Pending Prescriptions Disp Refills spironolactone (ALDACTONE) 50 mg tablet 60 tablet 2 Sig: Take 2 tablets by mouth once daily. Lynnette Masters RN September 28, 2024 10:17 AM [facility]01[facility]13[facility] Miscellaneous Notes* Telephone Encounter - Lynnette Masters RN - 09/28/2024 10:17 AM EST The patient has been identified by name and date of : Yes Caregiver verified no other encounters exist for this prescription request: Yes Caregiver confirmed with patient/requestor that no other refills are due, in the near future, with this provider at this time: Yes The last office visit in the department: 08/26/2024 Does the patient have a future office visit with this provider/department: 11/25/2024 Requested Prescriptions Pending Prescriptions Disp Refills spironolactone (ALDACTONE) 50 mg tablet 60 tablet 2 Sig: Take 2 tablets by mouth once daily. Lynnette Masters RN September 28, 2024 10:17 AM documented in [facility] encounterMem[facility] Hospital01-06-2025 Telephone encounter Note * Telephone Encounter - Debi Curiel MA - 09/21/2024 9:25 AM EST Pt notified and verbalized understanding Debi Curiel MA [facility]01[facility] Miscellaneous Notes* Telephone Encounter - Debi Curiel MA - 09/21/2024 9:25 AM EST Pt notified and verbalized understanding Debi Curiel MA * Telephone Encounter - Juan Locke DO - 09/18/2024 5:26 PM EST Please let her know that her thyroid labs are all stable Juan Locke DO documented in this encounterMem[facility] Hospital01-03-2025 Telephone encounter Note * Telephone Encounter - Juan Locek DO - 09/18/2024 5:26 PM EST Please let her know that her thyroid labs are all stable Juan Locke DO [facility] Telephone encounter Note* Telephone Encounter - Liliana Odonnell - 09/18/2024 10:45 AM EST Called patient and scheduled 4 infusions [facility] Miscellaneous Notes* Telephone Encounter - Liliana Odonnell - 09/18/2024 10:45 AM EST Called patient and scheduled 4 infusions * Telephone Encounter - Beata Boone - 09/18/2024 9:29 AM EST Pt remains iron deficient. Only received one dose 200mg from series. Is she planning to reschedule remaining 4 doses? Beata Boone APRN.ASSOCIATE SOFTWARE APPLICATION ENGINEER documented in this encounterMemorial Hospital01-03-2025 Telephone encounter Note * Telephone Encounter - Beata Boone - 09/18/2024 9:29 AM EST Pt remains iron deficient. Only received one dose 200mg from series. Is she planning to reschedule remaining 4 doses? Beata Boone APRN.ASSOCIATE SOFTWARE APPLICATION ENGINEER [facility] Work Phone: [phone] 724-285312-20-2024 Telephone encounter Note* Telephone Encounter - Jessica Still - 09/04/2024 8:26 AM EST Cancelled appointment and notified 2nd floor Jessica Still [facility]12-20-2024 Miscellaneous Notes* Telephone Encounter - Jessica Still - 09/04/2024 8:26 AM EST Cancelled appointment and notified 2nd floor Jessica Still * Telephone Encounter - Karina Hercules - 09/04/2024 8:12 AM EST Patient called requesting to cancel her treatment today at 10am Thank you documented in [facility] encounterMem[facility] Hospital12-20-2024 Telephone encounter Note * Telephone Encounter - Karina Hercules - 09/04/2024 8:12 AM EST Patient called requesting to cancel her treatment today at 10am Thank you [facility] Work Phone: [phone] 863-373712-19-2024 Telephone encounter Note* Telephone Encounter - Moraima Sullivan MA - 09/03/2024 9:33 AM EST Pt has appt with [facility] 09/04 at 245. Left detailed vm to inform patient Moraima Sullivan MA [facility]12[facility]19[facility] Miscellaneous Notes* Telephone Encounter - Moraima Sullivan MA - 09/03/2024 9:33 AM EST Pt has appt with [facility] 09/04 at 245. Left detailed vm to inform patient Moraima Sullivan MA * Telephone Encounter - Catrina Sutton RN - 09/03/2024 8:42 AM EST Contacted patient. Patient states she is agreeable to be seen by [facility] sooner, if they can. Please call patient with any further updates or if she needs to do anything at this time. Catrina Sutton RN * Telephone Encounter - Nury Alexander APRN.CNP - 09/02/2024 5:47 PM EST But is she willing to see [facility] if we can get her in sooner? Nury Alexander APRN.CNP * Telephone Encounter - Catrina Ireland - 09/02/2024 10:05 AM EST Spoke with patient and friend of patient stated seen ar [facility] ER on 08/26 for left arm/shoulder fracture. Patient is scheduled for first opening in [place] on 10/12/24 * Telephone Encounter - Nury Alexander APRN.CNP - 09/02/2024 7:17 AM EST I believe she saw [facility], can she get in with [facility]? Nury Alexander APRN.CNP * Telephone Encounter - Imelda Waterman - 09/01/2024 3:24 PM EST Ortho in [place] has no openings till new year * Telephone Encounter - Lucina Solares MA - 09/01/2024 1:27 PM EST Unfortunately, no providers available for 2nd opinion until 09/21/2024, due to Holiday, providers out[place] in [place]. Patient is welcome to check with other groups in town for availability if she is looking for something sooner. * Telephone Encounter - Imelda Waterman - 09/01/2024 12:57 PM EST The patient injured her arm 08/26/2024 She has seen [facility] on 08/31, they told her to keep thearm in the sling . She would like a second opinion, still in a lot pain. Please advise. * Telephone Encounter - Nury Alexander APRN.CNP - 09/01/2024 12:25 PM EST Please assist her to schedule with orthopedics for 2nd opinion. Nury Alexander APRN.CNP documented in this encounterMemorial Hospital12-19-2024 Telephone encounter Note * Telephone Encounter - Catrina Sutton RN - 09/03/2024 8:42 AM EST Contacted patient. Patient states she is agreeable to be seen by [facility] sooner, if they can. Please call patient with any further updates or if she needs to do anything at this time. Catrina Sutton RN [facility]12[facility]18[facility] Telephone encounter Note* Telephone Encounter - Nury Alexander APRN.CNP - 09/02/2024 5:47 PM EST But is she willing to see [facility] if we can get her in sooner? Nury Alexander APRN.CNP [facility]12-18[facility] Telephone encounter Note* Telephone Encounter - Catrina Ireland - 09/02/2024 10:05 AM EST Spoke with patient and friend of patient stated seen ar [facility] ER on 08/26 for left arm/shoulder fracture. Patient is scheduled for first opening in [place] on 10/12/24 [facility] Telephone encounter Note* Telephone Encounter - Nury Alexander APRN.CNP - 09/02/2024 7:17 AM EST I believe she saw [facility], can she get in with [facility]? Nury Alexander APRN.CNP [facility]12-17-[facility] Telephone encounter Note* Telephone Encounter - Imelda Waterman - 09/01/2024 3:24 PM EST Ortho in [place] has no openings till new year [facility]12-17-[facility] Telephone encounter Note* Telephone Encounter - Lucina Solares MA - 09/01/2024 1:27 PM EST Unfortunately, no providers available for 2nd opinion until 09/21/2024, due to Holiday, providers [place] being in [place]. Patient is welcome to check with other groups in town for availability if she is looking for something sooner. [facility]12[facility] Telephone encounter Note* Telephone Encounter - Imelda Waterman - 09/01/2024 12:57 PM EST The patient injured her arm 08/26/2024 She has seen [facility] on 08/31, they told her to keep thearm in the sling . She would like a second opinion, still in a lot pain. Please advise. [facility]12-[facility] Telephone encounter Note* Telephone Encounter - Nury Alexander APRN.CNP - 09/01/2024 12:25 PM EST Please assist her to schedule with orthopedics for 2nd opinion. Nury Alexander APRN.CNP [facility]12-17-2024 [place]12-17-2024 History of Present illness Narrative* Nury Alexander APRN.CNP - 09/01/2024 12:15 PM EST AMBULATORY TELEPHONE VISIT Barbara Yesy Meneses has consented to this telephone encounter. Persons Present: patient Chief Complaint/Reason: broken left arm HPI: she had a fall on 08/26 and was seen at [facility] ER, dx with impacted fx surgical neck left humerus. Was given a sling and told to f/u with orthopedics. She saw [facility] yesterday 08/31 and was told to just keep it in the sling and it would heal, per patient. She states she is still having severe pain. She is wondering if she can get another opinion. Data Reviewed: Most recent labs and imaging results. PDMP report PDMP website checked and validated. All prescriptions have been APPROPRIATELY filled. No suspiciousactivity was identified. 09/01/2024 by Nury Alexander CNP. Assessment: (S49.541Z) Closed fracture of left upper extremity with routine healing, subsequent encounter (primary encounter diagnosis) Plan: Ok for additional oxycodone x5 days, no additional. Will schedule with orthopedics for 2nd opinion per patient request. Continue with sling. Total Time Spent: 10 minutes Nury Alexander APRN.JUANA documented in this encounterMemorial Hospital12-13-2024 Telephone encounter Note * Telephone Encounter - Moraima Sullivan MA - 08/28/2024 11:29 AM EST Xray result placed in rs inbox in office to review. Moraima Sullivan MA [facility]12-13-2024 Miscellaneous Notes* Telephone Encounter - Moraima Sullivan MA - 08/28/2024 11:29 AM EST Xray result placed in rs inbox in office to review. Moraima Sullivan MA * Telephone Encounter - Moraima Sullivan MA - 08/28/2024 11:01 AM EST Called [facility] med rec and they will fax xray report. Moraima Sullivan MA * Telephone Encounter - Nury Alexander APRN.CNP - 08/28/2024 10:26 AM EST Please request her left arm xray report from [facility] on 08/26 for my review. Nury Alexander APRN.CNP documented in this encounterMemorial Hospital12-13-2024 Telephone encounter Note * Telephone Encounter - Moraima Sullivan MA - 08/28/2024 11:01 AM EST Called [facility] med rec and they will fax xray report. Moraima Sullivan MA [facility]12-13-2024 Telephone encounter Note* Telephone Encounter - Nury Alexander APRN.CNP - 08/28/2024 10:26 AM EST Please request her left arm xray report from [facility] on 08/26 for my review. Nury Alexander APRN.CNP [facility]12-13-2024 [place]12-13-2024 History of Present illness Narrative* Nury Alexander APRN.CNP - 08/28/2024 10:16 AM EST AMBULATORY TELEPHONE VISIT Barbara Yesy Meneses has consented to this telephone encounter. Persons Present: patient Chief Complaint/Reason: [facility] ER f/u for left arm fracture HPI: on 08/26 just following her visit in our office with Dr. Locke tripped over the curb, fell on her left side. Went to [facility], left arm between the elbow and her shoulder. Seeing orthopedics on Friday 08/31. Oxycodone is maybe a little helpful. On a scale from 1-10 it is a 100. Data Reviewed: Most recent labs and imaging results.PDMP report PDMP website checked and validated. All prescriptions have been APPROPRIATELY filled. No suspiciousactivity was identified. 08/28/2024 by Nury Alexander CNP. Assessment: (S42.302A) Closed fracture of left upper extremity, initial encounter (primary encounter diagnosis) Plan: Is seeing volunteer specialist on Saturday (3 days). Continue with sling. Oxycodone prn. Is aware of red flag s/s Nury Alexander APRN.CNP Greater than 50% of 8-minute visit spent face to face with patient in counseling and education. documented in this encounterMemorial Hospital12-12-2024 Telephone encounter Note * Telephone Encounter - Moraima Sullivan MA - 08/27/2024 3:57 PM EST Scheduled Moraima Sullivan MA [facility]12-12-2024 Miscellaneous Notes* Telephone Encounter - Moraima Sullivan MA - 08/27/2024 3:57 PM EST Scheduled Moraima Sullivan MA * Telephone Encounter - Nury Alexander APRN.CNP - 08/27/2024 3:46 PM EST Is she able to do a virtual or telephone visit with myself tomorrow morning? Then I can send in medication for her Nury Alexander APRN.CNP * Telephone Encounter - Destiny Rollins LPN - 08/27/2024 9:32 AM EST Pt called to let you know after apt in the office she went to [employer]. Pt reports she tripped and fell on left side. Went to ER and pt has a broken left arm between the elbow and shoulder. Pt not able to get an apt to get the arm set till Saturday 9 am. Pt's arm is in a sling. Pt has a question: Pt has Oxycodone left from her hernia surgery and the ER has sent in a prescription also but the pharmacy does not have it yet. They are ordering it for her. Pt asking if she can take (2) instead of (1). Pt reports she is in a lot of pain. If you would have a different recommendation that would be fine also. Please advise pt, she is waiting to hear back. Destiny Rollins LPN documented in this encounterMemorial Hospital12-12-2024 Telephone encounter Note * Telephone Encounter - Nury Alexander APRN.ASSOCIATE SOFTWARE APPLICATION ENGINEER - 08/27/2024 3:46 PM EST Is she able to do a virtual or telephone visit with myself tomorrow morning? Then I can send in medication for her Nury Alexander APRN.ASSOCIATE SOFTWARE APPLICATION ENGINEER [facility]12-12-2024 Telephone encounter Note* Telephone Encounter - Casandra Haskins - 08/27/2024 9:49 AM EST Patient called in stating she was in the ED last night with a broken arm. She is in too much pain to come in today (called in 20 minutes after appointment time). Will reschedule when she comes in next week. Casandra Haskins [facility]12-12-2024 Miscellaneous Notes* Telephone Encounter - Casandra Haskins - 08/27/2024 9:49 AM EST Patient called in stating she was in the ED last night with a broken arm. She is in too much pain to come in today (called in 20 minutes after appointment time). Will reschedule when she comes in next week. Casandra Haskins * Telephone Encounter - Sheeba Rachel RN - 08/27/2024 9:15 AM EST Attempted to call patient to see if she was coming in for her appointment today. VM left for her tocall back and reschedule if she is unable to make it in today. documented in this encounterMemorial Hospital12-12-2024 Telephone encounter Note * Telephone Encounter - Destiny Rollins LPN - 08/27/2024 9:32 AM EST Pt called to let you know after apt in the office she went to [employer]. Pt reports she tripped and fell on left side. Went to ER and pt has a broken left arm between the elbow and shoulder. Pt not able to get an apt to get the arm set till Saturday 9 am. Pt's arm is in a sling. Pt has a question: Pt has Oxycodone left from her hernia surgery and the ER has sent in a prescription also but the pharmacy does not have it yet. They are ordering it for her. Pt asking if she can take (2) instead of (1). Pt reports she is in a lot of pain. If you would have a different recommendation that would be fine also. Please advise pt, she is waiting to hear back. Destiny Rollins LPN [facility]12-12-2024 Telephone encounter Note* Telephone Encounter - Sheeba Rachel RN - 08/27/2024 9:15 AM EST Attempted to call patient to see if she was coming in for her appointment today. VM left for her tocall back and reschedule if she is unable to make it in today. [facility]12-11-2024 [place]12-11-2024 Note [place]12-09-2024 NoteHNO ID: [id number] Author: JESUSITA ARGUELLO RN Service: ? Author Type: Registered Nurse Type: Progress Notes Filed: 08/24/2024 13:08 Note Text: .[place]12-09-2024 History of Present illness Narrative* Jesusita Arguello RN - 08/24/2024 9:48 AM EST . [facility]12-[facility]-2024 NoteHNO ID: [id number] Author: MERY HERNANDEZ MD Service: ? Author Type: Physician Type: Progress Notes Filed: 08/19/2024 16:34 Note Text: Mery Hernandez M.D. Surgical Oncology [address] [facility], [address] [place] [address] Plan SUBJECTIVE HPI Barbara Meneses is a 69 year old female presenting for follow-up of CT scan findings of retroperitoneal fibrosis/carcinomatosis. Patient reports that since her last visit she reports no new or worsening symptoms. She reports no significant changes to her medical history. She notes that her right sided abdominal pain has not significantly increased. The ROS, medical, surgical, family, and social history were reviewed by Mery Hernandez MD. OBJECTIVE BP 118/62 Pulse 86 Ht 162.6 cm (5' 4) SpO2 99% BMI 32.79 kg/m? No weight on file for this encounter. Physical Exam Constitutional: General: She is not in acute distress. HENT: Head: Normocephalic and atraumatic. Eyes: Pupils: Pupils are equal, round, and reactive to light. Neck: Thyroid: No thyromegaly. Trachea: No tracheal deviation. Cardiovascular: Rate and Rhythm: Normal rate and regular rhythm. Heart sounds: Normal heart sounds. Pulmonary: Effort: Pulmonary effort is normal. No respiratory distress. Breath sounds: Normal breath sounds. No stridor. Abdominal: General: There is no distension. Palpations: Abdomen is soft. Tenderness: There is no abdominal tenderness. Hernia: A hernia is present. Musculoskeletal: General: No deformity. Normal range of motion. Skin: General: Skin is warm and dry. Findings: No erythema or rash. Neurological: Mental Status: She is alert and oriented to person, place, and time. Psychiatric: Mood and Affect: Affect normal. Judgment: Judgment normal. ASSESSMENT AND PLAN 69-year-old woman with history of cirrhosis and fat stranding/haziness in the retroperitoneum. I discussed with patient that her CT scan which is approximately 3 months from her last 1 does not demonstrate any significant changes. Advised her that we can proceed with interval imaging again as this does not appear to truly represent carcinomatosis in my view. I advised her that I would recommend interval imaging in 3 months in that circumstance. We also discussed that if she elects to proceed with hernia repair we can perform a diagnostic laparoscopy although I felt the yield would be relatively low given the retroperitoneal nature of these findings. After thorough discussion patient will discuss with general surgery today whether or not she would like to proceed with hernia repair. We will then plan management and coordination with general surgery. I spent a total of 30 minutes on the date of the service which included preparing to see the patient, completing clinical documentation, performing a medically appropriate examination, counseling and educating the patient/family/caregiver, and communicating with other HCPs (not separately reported). Mery Hernandez MD 08/19/2024 4:15 [facility]12-04-2024 History of Present illness Narrative* Mery Hernandez MD - 08/19/2024 4:15 PM EST Mery Hernandez M.D. Surgical Oncology [address] [facility], [address] [place] [id number] Plan SUBJECTIVE HPI Barbara Meneses is a 69 year old female presenting for follow-up of CT scan findings of retroperitoneal fibrosis/carcinomatosis. Patient reports that since her last visit she reports no new or worsening symptoms. She reports no significant changes to her medical history. She notes that her right sided abdominal pain has not significantly increased. The ROS, medical, surgical, family, and social history were reviewed by Mery Hernandez MD. OBJECTIVE BP 118/62 Pulse 86 Ht 162.6 cm (5' 4) SpO2 99% BMI 32.79 kg/m No weight on file for this encounter. Physical Exam Constitutional: General: She is not in acute distress. HENT: Head: Normocephalic and atraumatic. Eyes: Pupils: Pupils are equal, round, and reactive to light. Neck: Thyroid: No thyromegaly. Trachea: No tracheal deviation. Cardiovascular: Rate and Rhythm: Normal rate and regular rhythm. Heart sounds: Normal heart sounds. Pulmonary: Effort: Pulmonary effort is normal. No respiratory distress. Breath sounds: Normal breath sounds. No stridor. Abdominal: General: There is no distension. Palpations: Abdomen is soft. Tenderness: There is no abdominal tenderness. Hernia: A hernia is present. Musculoskeletal: General: No deformity. Normal range of motion. Skin: General: Skin is warm and dry. Findings: No erythema or rash. Neurological: Mental Status: She is alert and oriented to person, place, and time. Psychiatric: Mood and Affect: Affect normal. Judgment: Judgment normal. ASSESSMENT AND PLAN 69-year-old woman with history of cirrhosis and fat stranding/haziness in the retroperitoneum. I discussed with patient that her CT scan which is approximately 3 months from her last 1 does not demonstrate any significant changes. Advised her that we can proceed with interval imaging again as this d oes not appear to truly represent carcinomatosis in my view. I advised her that I would recommend interval imaging in 3 months in that circumstance. We also discussed that if she elects to proceed with hernia repair we can perform a diagnostic laparoscopy although I felt the yield would be relatively low given the retroperitoneal nature of these findings. After thorough discussion patient will discuss with general surgery today whether or not she would like to proceed with hernia repair. We will then plan management and coordination with general surgery. I spent a total of 30 minutes on the date of the service which included preparing to see the patient, completing clinical documentation, performing a medically appropriate examination, counseling andeducating the patient/family/caregiver, and communicating with other HCPs (not separately reported). Mery Hernandez MD 08/19/2024 4:15 PM documented in this encounterMemorial Hospital12-04-2024 Instructions* Patient Instructions* Kim Wu MD - 08/19/2024 11:31 AM EST Thank you for coming to see me today. It is my pleasure to take care of you. If you have any questions regarding your visit, please don't hesitate to contact us. documented in this encounterMemorial Hospital12-04-2024 NoteHNO ID: [id number] Author: KIM WU MD Service: ? Author Type: Physician Type: Progress Notes Filed: 08/19/2024 12:39 Note Text: Consultation requested by Dr. Hernandez for an opinion regarding right sided abdominal wall hernia. My final recommendations will be communicated back to the requesting physician by way of shared Medical record or letter to requesting physician via US mail. Barbara Meneses is a 69 year old White female who presents with complaints of right lower abdominal wall hernia. 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 She gets occasional discomfort at that site and a CT scan showed a abdominal wall hernia above the anterior superior iliac spine of the pelvis. She does have some nodularity in the area and there is concern for possible carcinomatosis but her CT has been stable. She also has cirrhotic changes of the liver and some portal hypertension. 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 Larkin COLONOSCOPY SCREENING 02/22/2023 EGD W/O BRSH SPEC VARICIES INJ 02/22/2023 HYSTERECTOMY HX 1993 Total PAST SURGICAL HISTORY OF 1974 right kidney removed THYROIDECTOMY SUBTOTAL/PARTIAL 1991 Social History Tobacco Use Smoking status: Former Current packs/day: 0.00 Average packs/day: 0.3 packs/day for 5.0 years (1.3 ttl pk-yrs) Types: Cigarettes Start date: 1978 Quit date: 1983 Years since quittin.9 Smokeless tobacco: Never Vaping Use Vaping status: Never Used Substance Use Topics Alcohol use: Yes Comment: Occasionally Drug use: No FAMILY HISTORY Problem Relation Age of Onset Osteoporosis Mother other (Hepatitis C) Mother Colon Cancer Father other (myasthenia gravis) Father Aneurysm Father Osteoporosis Sister No Known Problems Brother No Known Problems Brother Aneurysm Brother Cancer Brother bladder other (atrial fib) Brother COPD Brother No Known Problems Maternal Grandmother Stroke Maternal Grandfather ALLERGIES Allergen Reactions Mold Unknown Adhesive Tape (Yamel* Rash Januvia [Sitaglipti* Intolerance GI upset, aching of muscles, headaches Latex Itching Current Outpatient Medications Medication Sig propranolol (INDERAL) 10 mg tablet Take 0.5 tablets by mouth three times a day. iv contrast (will be provided with radiology test) CT Chest ABD/PEL-Inject, intravenously, once for 1 dose.No IV access, insert saline lock prior to the beginning of sedation, infusion, injection of imaging exam. Discontinue saline lock post exam. If Pt. has a central line or IVAD, may access for administration according to line specific nursing protocol. Once exam is complete flush line and de-access according to line specific nursing protocol in the CT contrast administration guidelines link. enteric contrast (will be provided with radiology test) For CT CHESTABD/PEL W IVCON Routine order Administer, As Directed One Time Only, via Oral, Rectal, both Oral and Rectal, Enteric Tube, Stoma or Indwelling Catheter, Enteric Contrast as designated per enteric contrast guidelines spironolactone (ALDACTONE) 50 mg tablet Take 2 tablets by mouth once daily. zolpidem (AMBIEN) 10 mg Take 1 tablet by mouth at bedtime as needed (insomnia) for up to 30 days. buPROPion (WELLBUTRIN) 100 mg tablet Take 2 tablets to total 200 mg in the morning and 1 tablet in the evening, total of 300 mg a day furosemide (LASIX) 20 mg tablet Take 1 tablet by mouth once daily. albuterol HFA (VENTOLIN HFA) 90 mcg/actuation inhaler Inhale 2 Puffs as instructed every 4 hours as needed for wheezing/shortness of breath. Blood-Glucose Meter,Continuous (FREESTYLE THEE 3 READER) [facility] [place] Use to check blood sugar at least four (4) times daily. Blood-Glucose Sensor (FREESTYLE THEE 3 SENSOR) [place] Apply new sensor every fourteen (14) days to upper arm. potassium chloride (K-TAB) 10 mEq tablet Take 10 mEq by mouth once daily. SYNTHROID 125 mcg tablet Take 1 tablet by mouth once daily. Take on empty stomach. For Thyroid dulaglutide (TRULICITY) 0.75 mg/0.5 mL pen injector Inject 0.75 mg subcutaneously one time a week. Dx: Type 2 diabetes uncontrolled, Inject dose once per week. Discard Pen After DULoxetine (CYMBALTA) 60 mg capsule TAKE 1 CAPSULE DAILY (Patient taking differently: Take 60 mg by mouth once daily. TA (more content not included)... [facility]12-04-2024 History of Present illness Narrative* Kim Wu MD - 08/19/2024 11:16 AM EST Consultation requested by Dr. Hernandez for an opinion regarding right sided abdominal wall hernia. My final recommendations will be communicated back to the requesting physician by way of shared Medical record or letter to requesting physician via [place] mail. Barbara Meneses is a 69 year old White female who presents with complaints of right lower abdominal wall hernia. 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 She gets occasional discomfort at that site and a CT scan showed a abdominal wall hernia above the anteriorsuperior iliac spine of the pelvis. She does have some nodularity in the area and there is concern for possible carcinomatosis but her CT has been stable. She also has cirrhotic changes of the liver and some portal hypertension. PAST MEDICAL HISTORY Diagnosis Date 08/2015 Depression Diverticulitis Esophageal varices (HCC) Headaches Hemorrhoid History of nephrectomy right Hypertension Hypothyroidism IBS (irritable bowel syndrome) Iron deficiency anemia secondary to inadequate dietary iron intake 05/07/2023 Iron malabsorption 05/07/2023 Lung nodules JENN (obstructive sleep apnea) Osteopenia 08/2023 Portal hypertension (HCC) Rectal bleed SOB (shortness of breath) Splenomegaly Type 2 diabetes, uncontrolled, with renal manifestation PAST SURGICAL HISTORY Procedure Laterality Date ASPIRATION BIOPSY, THYROID GLAND Right 07/15/2017 Dr. Larkin COLONOSCOPY SCREENING 02/22/2023 EGD W/O BRSH SPEC VARICIES INJ 02/22/2023 HYSTERECTOMY HX 1994 Total PAST SURGICAL HISTORY OF 1974 right kidney removed THYROIDECTOMY SUBTOTAL/PARTIAL 1991 Social History Tobacco Use Smoking status: Former Current packs/day: 0.00 Average packs/day: 0.3 packs/day for 5.0 years (1.3 ttl pk-yrs) Types: Cigarettes Start date: 1978 Quit date: 1983 Years since quittin.9 Smokeless tobacco: Never Vaping Use Vaping status: Never Used Substance Use Topics Alcohol use: Yes Comment: Occasionally Drug use: No FAMILY HISTORY Problem Relation Age of Onset Osteoporosis Mother other (Hepatitis C) Mother Colon Cancer Father other (myasthenia gravis) Father Aneurysm Father Osteoporosis Sister No Known Problems Brother No Known Problems Brother Aneurysm Brother Cancer Brother bladder other (atrial fib) Brother COPD Brother No Known Problems Maternal Grandmother Stroke Maternal Grandfather ALLERGIES Allergen Reactions Mold Unknown Adhesive Tape (Yamel* Rash Januvia [Sitaglipti* Intolerance GI upset, aching of muscles, headaches Latex Itching Current Outpatient Medications Medication Sig propranolol (INDERAL) 10 mg tablet Take 0.5 tablets by mouth three times a day. iv contrast (will be provided with radiology test) CT Chest ABD/PEL-Inject, intravenously, once for1 dose.No IV access, insert saline lock prior to the beginning of sedation, infusion, injection of imaging exam. Discontinue saline lock post exam. If Pt. has a central line or IVAD, may access for administration according to line specific nursing protocol. Once exam is complete flush line and de-access according to line specific nursing protocol in the CT contrast administration guidelines link. enteric contrast (will be provided with radiology test) For CT CHESTABD/PEL W IVCON Routine order Administer, As Directed One Time Only, via Oral, Rectal, both Oral and Rectal, Enteric Tube, Stoma orIndwelling Catheter, Enteric Contrast as designated per enteric contrast guidelines spironolactone (ALDACTONE) 50 mg tablet Take 2 tablets by mouth once daily. zolpidem (AMBIEN) 10 mg Take 1 tablet by mouth at bedtime as needed (insomnia) for up to 30 days. buPROPion (WELLBUTRIN) 100 mg tablet Take 2 tablets to total 200 mg in the morning and 1 tablet in the evening, total of 300 mg a day furosemide (LASIX) 20 mg tablet Take 1 tablet by mouth once daily. albuterol HFA (VENTOLIN HFA) 90 mcg/actuation inhaler Inhale 2 Puffs as instructed every 4 hours asneeded for wheezing/shortness of breath. Blood-Glucose Meter,Continuous (FREESTYLE THEE 3 READER) [facility] [place] Use to check blood sugar at least four (4) times daily. Blood-Glucose Sensor (FREESTYLE THEE 3 SENSOR) [place] Apply new sensor every fourteen (14) days to upper arm. potassium chloride (K-TAB) 10 mEq tablet Take 10 mEq by mouth once daily. SYNTHROID 125 mcg tablet Take 1 tablet by mouth once daily. Take on empty stomach. For Thyroid dulaglutide (TRULICITY) 0.75 mg/0.5 mL pen injector Inject 0.75 mg subcutaneously one time a week. Dx: Type 2 diabetes uncontrolled, Inject dose once per week. Discard Pen After DULoxetine (CYMBALTA) 60 mg capsule TAKE 1 CAPSULE DAILY (Patient taking differently: Take 60 mg bymouth once daily. TAKE 1 CAPSULE DAILY) ergocalciferol 50,000 unit capsule (VITAMIN D2, DRISDOL) Take 1 capsule by mouth one time a week. Lancets lancets Test blood sugar(s) 1 times daily. Dx: Type 2 DM - Uncontrolled E11.65 Insulin: No blood sugar diagnostic (BLOOD GLUCOSE TEST) test strip Test blood sugar(s) 1 times daily. Dx: Type 2 DM - Uncontrolled E11.65 Insulin: No No current facility-administered medications for this visit. REVIEW OF SYSTEMS PAIN ASSESSMENT: Negative for pain, history of chronic pain, or current treatment for a chronic pain condition. GENERAL: No weight loss, malaise or fevers NECK: Negative for lumps, goiter, pain and significant neck swelling RESPIRATORY: Negative for cough, hemoptysis, wheezing, COPD, dyspnea or shortness of breath CARDIOVASCULAR: Negative for chest pain, leg swelling, hypertension, CHF or palpitations GI: No nausea, vomiting, or diarrhea : No history of dysuria, frequency or incontinence MUSCULOSKELETAL: Negative for joint pain or swelling, back pain or muscle pain HEMATOLOGY/LYMPHOLOGY: Negative for prolonged bleeding, bruising easily or swollen nodes ENDOCRINE: Negative for cold or heat intolerance, polyuria, polydipsia and goiter PHYSICAL EXAM: There were no vitals taken for this visit. General Appearance: Well appearing, alert, in no acute distress, well-hydrated, well nourished. andObese. Abdomen: Normal abdominal exam, Abdomen soft, non-tender. Bowel sounds normal. No masses, organomegaly, Positive findings: Right lower abdominal wall hernia. Assessment: Abdominal wall hernia (primary encounter diagnosis) Cirrhosis, nonalcoholic (hcc) Portal venous hypertension (hcc) Controlled type 2 diabetes mellitus without complication, without long-term current use of insulin (hcc) Class 2 severe obesity due to excess calories with serious comorbidity and body mass index (bmi) of36.0 to 36.9 in adult (hcc) Plan: ASSESSMENT/PLAN: 1. Abdominal wall hernia - ICD9: 553.20, ICD10: K43.9 (primary diagnosis) I did have a long discussion with her regarding her treatment options for hernia to include surgeryversus observation. Surgery was reviewed with her in detail. After discussing this she has elected to proceed with nonoperative management and a 3-month follow-up. She is getting a 3-month follow-up CT scan to evaluate the retroperitoneal nodularity and mesenteric lymph nodes. She is to call sooner if she has any issues or concerns. 2. Cirrhosis, nonalcoholic (HCC) - ICD9: 571.5, ICD10: K74.60 3. Portal venous hypertension (HCC) - ICD9: 572.3, ICD10: K76.6 4. Controlled type 2 diabetes mellitus without complication, without long-term current use of insulin (HCC) - ICD9: 250.00, ICD10: E11.9 5. Class 2 severe obesity due to excess calories with serious comorbidity and body mass index (BMI)of 36.0 to 36.9 in adult (HCC) - ICD9: 278.01, V85.36, ICD10: E66.812, E66.01, Z68.36 Stable Medical Decision Making: Problems: Moderate: New problem with uncertain prognosis Data: Unique test result(s) reviewed: 1 Risk: Moderate: Moderate risk from testing/treatment Medical Decision Making Level: 4 - Moderate Kim Wu M.D., F.A.C.S. documented in this encounterMem[facility]11-29-2024 Telephone encounter Note * Telephone Encounter - Casandra Haskins - 08/14/2024 10:18 AM EST Patient returned call and scheduled. [facility] Miscellaneous Notes* Telephone Encounter - Casandra Haskins - 08/14/2024 10:18 AM EST Patient returned call and scheduled. Casandralisbet Haskins * Telephone Encounter - Casandra Haskins - 08/14/2024 9:08 AM EST Left message for patient to return call. When she calls, please schedule 2nd START IRON CUCROSE/D1-5/AUTH EXP ?* Casandra Haskins * Telephone Encounter - Beata Boone - 08/14/2024 8:51 AM EST Needs IV iron PSR: Can you please schedule for IV iron sucrose 200mg x5 ? Could someone please obtain OV notes from Dr Glez's office, [facility]? Hgb dropped quickly from last check I question worsening bleeding. Beata Boone APRN.ASSOCIATE SOFTWARE APPLICATION ENGINEER documented in this encounterMemorial Hospital11-29-2024 Telephone encounter Note * Telephone Encounter - Casandra Haskins - 08/14/2024 9:08 AM EST Left message for patient to return call. When she calls, please schedule 2nd START IRON CUCROSE/D1-5/AUTH EXP ?* [facility] Telephone encounter Note* Telephone Encounter - Beata Boone - 08/14/2024 8:51 AM EST Needs IV iron PSR: Can you please schedule for IV iron sucrose 200mg x5 ? Could someone please obtain OV notes from Dr Glez's office, [facility]? Hgb dropped quickly from last check I question worsening bleeding. Beata Boone APRN.ASSOCIATE SOFTWARE APPLICATION ENGINEER [facility] Work Phone: 1(953) 338-817211-27-2024 [place]Cent[place]11-27-2024 History of Present illness Narrative* Nury Alexander APRN.CNP - 08/12/2024 11:27 AM EST Chief Complaint Patient presents with: Dizziness: Positional changes/ BP HPI Barbara Meneses is a 69 year old female who presents here today for Above Complaints. BP-for a couple of weeks. Doesn't feel lightheaded all the time. From sitting to standing. Is always very careful with changing positions. Will hold onto the wall for balance. Last week took a stool sample in to [facility] to for Dr. Zimmer. Dr. Ashley had her do a bunch of lab work.Hasn't heard anything about the results. Denies CP, SOB, h/a. Does feel somewhat weak and fatigued. Past medical history, appointments, medications, allergies reviewed. Previous Medical History PAST MEDICAL HISTORY Diagnosis Date Albuminuria 08/2015 Depression Diverticulitis Esophageal varices (HCC) Headaches Hemorrhoid History of nephrectomy right Hypertension Hypothyroidism IBS (irritable bowel syndrome) Iron deficiency anemia secondary to inadequate dietary iron intake 05/07/2023 Iron malabsorption 05/07/2023 Lung nodules JENN (obstructive sleep apnea) Osteopenia 08/2023 Portal hypertension (HCC) Rectal bleed SOB (shortness of breath) Splenomegaly Type 2 diabetes, uncontrolled, with renal manifestation Previous Surgical History PAST SURGICAL HISTORY Procedure Laterality Date ASPIRATION BIOPSY, THYROID GLAND Right 07/15/2017 Dr. Larkin COLONOSCOPY SCREENING 02/22/2023 EGD W/O [facility] SPEC VARICIES INJ 02/22/2023 HYSTERECTOMY HX 1993 Total PAST SURGICAL HISTORY OF 1974 right kidney removed THYROIDECTOMY SUBTOTAL/PARTIAL 1991 Family History FAMILY HISTORY Problem Relation Age of Onset Osteoporosis Mother other (Hepatitis C) Mother Colon Cancer Father other (myasthenia gravis) Father Aneurysm Father Osteoporosis Sister No Known Problems Brother No Known Problems Brother Aneurysm Brother Cancer Brother bladder other (atrial fib) Brother COPD Brother No Known Problems Maternal Grandmother Stroke Maternal Grandfather Patient Allergies ALLERGIES Allergen Reactions Mold Unknown Adhesive Tape (Yamel* Rash Januvia [Sitaglipti* Intolerance GI upset, aching of muscles, headaches Latex Itching Current Medications Current Outpatient Medications on File Prior to Visit Medication Sig propranolol (INDERAL) 10 mg tablet Take 1 tablet by mouth two times a day. spironolactone (ALDACTONE) 50 mg tablet Take 2 tablets by mouth once daily. buPROPion (WELLBUTRIN) 100 mg tablet Take 2 tablets to total 200 mg in the morning and 1 tablet in the evening, total of 300 mg a day furosemide (LASIX) 20 mg tablet Take 1 tablet by mouth once daily. albuterol HFA (VENTOLIN HFA) 90 mcg/actuation inhaler Inhale 2 Puffs as instructed every 4 hours asneeded for wheezing/shortness of breath. SYNTHROID 125 mcg tablet Take 1 tablet by mouth once daily. Take on empty stomach. For Thyroid dulaglutide (TRULICITY) 0.75 mg/0.5 mL pen injector Inject 0.75 mg subcutaneously one time a week. Dx: Type 2 diabetes uncontrolled, Inject dose once per week. Discard Pen After DULoxetine (CYMBALTA) 60 mg capsule TAKE 1 CAPSULE DAILY (Patient taking differently: Take 60 mg bymouth once daily. TAKE 1 CAPSULE DAILY) ergocalciferol 50,000 unit capsule (VITAMIN D2, DRISDOL) Take 1 capsule by mouth one time a week. iv contrast (will be provided with radiology test) CT Chest ABD/PEL-Inject, intravenously, once for1 dose.No IV access, insert saline lock prior to the beginning of sedation, infusion, injection of imaging exam. Discontinue saline lock post exam. If Pt. has a central line or IVAD, may access for administration according to line specific nursing protocol. Once exam is complete flush line and de-access according to line specific nursing protocol in the CT contrast administration guidelines link. enteric contrast (will be provided with radiology test) For CT CHESTABD/PEL W IVCON Routine order Administer, As Directed One Time Only, via Oral, Rectal, both Oral and Rectal, Enteric Tube, Stoma orIndwelling Catheter, Enteric Contrast as designated per enteric contrast guidelines zolpidem (AMBIEN) 10 mg Take 1 tablet by mouth at bedtime as needed (insomnia) for up to 30 days. Blood-Glucose Meter,Continuous (FREESTYLE THEE 3 READER) [facility] [place] Use to check blood sugar at least four (4) times daily. Blood-Glucose Sensor (FREESTYLE THEE 3 SENSOR) [place] Apply new sensor every fourteen (14) days to upper arm. potassium chloride (K-TAB) 10 mEq tablet Take 10 mEq by mouth once daily. Lancets lancets Test blood sugar(s) 1 times daily. Dx: Type 2 DM - Uncontrolled E11.65 Insulin: No blood sugar diagnostic (BLOOD GLUCOSE TEST) test strip Test blood sugar(s) 1 times daily. Dx: Type 2 DM - Uncontrolled E11.65 Insulin: No No current facility-administered medications on file prior to visit. Social History Social History Tobacco Use Smoking status: Former Current packs/day: 0.00 Average packs/day: 0.3 packs/day for 5.0 years (1.3 ttl pk-yrs) Types: Cigarettes Start date: 1978 Quit date: 1983 Years since quittin.9 Smokeless tobacco: Never Vaping Use Vaping status: Never Used Substance Use Topics Alcohol use: Yes Comment: Occasionally Drug use: No Review of Symptoms REVIEW OF SYSTEMS See HPI, otherwise negative EXAM: BP 92/64 Pulse 78 Resp 16 Wt 86.6 kg (191 lb) SpO2 99% BMI 32.79 kg/m General Appearance: Well appearing, alert, in no acute distress, well-hydrated, well nourished.. Lungs: Lungs clear to auscultation. No wheezing, rhonchi, rales.. Heart: RRR without murmur, gallop, or rubs. No ectopy. Psychiatric: pleasant, cooperative. Health Maintenance List Hepatitis A Vaccine(1 of 2 - Risk 2-dose series) Never done Hepatitis B Vaccine(1 of 3 - Risk 3-dose series) Never done Bone Density Screening Never done Mammogram Screening due on 08/21/2024 Influenza Vaccine(1) due on 03/15/2025 RSV Vaccine(1 - Risk 60-74 years 1-dose series) due on 03/31/2025 Shingrix Vaccine(1 of 2) due on 03/31/2025 Pneumococcal Vaccine: 65+(1 of 2 - PCV) due on 03/31/2025 Covid-19 Vaccine( season) due on 05/26/2025 LDL Cholesterol due on 12/10/2024 Diabetic Foot Exam due on 12/29/2024 HbA1C due on 01/06/2025 Dilated Retinal Exam due on 01/21/2025 Urine Albumin:Creatinine Ratio due on 04/16/2025 Colorectal Cancer Screening due on 06/08/2025 Annual PCP Team Chronic Disease Visit due on 07/08/2025 BP Controlled (<130/80) due on 07/17/2025 DTaP,Tdap,Td Vaccine(2 - Td or Tdap) due on 06/20/2028 Hepatitis C Screening Completed Advance Directive Discussion Discontinued Data reviewed Previous records, office notes ASSESSMENT/PLAN: 1. Hypotension, unspecified hypotension type - ICD9: 458.9, ICD10: I95.9 (primary diagnosis) Discussed red flag s/s. She will continue to be careful with position changes, taking her time, holding onto things for balance as needed. Cutting propranolol back from 10mg bid to 5mg tid Recheck BP in the office in 2 weeks. 2. Thrombocytopenia (HCC) - ICD9: 287.5, ICD10: D69.6 Hgb from [facility] on 08/[address] Ashley is 7.6 Labs reordered. Hematology aware - COMPLETE BLOOD COUNT AND DIFFERENTIAL - IRON AND TIBC - FERRITIN 3. Iron deficiency anemia, unspecified iron deficiency anemia type - ICD9: 280.9, ICD10: D50.9 Hgb from [facility] on 08/[address] Ashley is 7.6 Labs reordered. Hematology aware - COMPLETE BLOOD COUNT AND DIFFERENTIAL - IRON AND TIBC - FERRITIN 4. Portal venous hypertension (HCC) - ICD9: 572.3, ICD10: K76.6 Discussed red flag s/s. She will continue to be careful with position changes, taking her time, holding onto things for balance as needed. Cutting propranolol back from 10mg bid to 5mg tid Recheck BP in the office in 2 weeks. 5. Uncontrolled type 2 diabetes mellitus with hyperglycemia (HCC) - ICD9: 250.02, ICD10: E11.65 Continue current tx plan 6. Iron malabsorption - ICD9: 579.8, ICD10: K90.9 - COMPLETE BLOOD COUNT AND DIFFERENTIAL - IRON AND TIBC - FERRITIN Nury Alexander APRN.ASSOCIATE SOFTWARE APPLICATION ENGINEER documented [facility] encounter[facility]24 Telephone encounter Note * Telephone Encounter - Catrina Sutton RN - 08/11/2024 2:38 PM EST Triage Protocol Advised: See provider for evaluation within 24 hours. To ER for any red flag sx's as discussed. Appt made with Jagjit Alexander CNP for 08/12/24. Patient reports she mentioned to Hematology office yesterday that she has been feeling lightheaded and tired. She was advised to contact her PCP. Per Hematology provider, pt's labs have been stable and provider is concerned it may be related to BP. Pt does not check BP at home-no batteries for homemonitor. History includes, but not limited to: HTN, elevated LFT's, diverticulitis, internal hemorrhoids, rectal bleeding, irritable bowel syndrome Reports has bleeding hemorrhoids daily. States this is not new. Reports 1 week ago she had some vomiting and diarrhea and this has resolved. Denies feeling like passing out. No headaches or vision changes. No pain, chest pain or SOB. 1. DESCRIPTION: Feels lightheaded daily but come and goes, especially when standing up or after beginning to walk 2. LIGHTHEADED: yes. Never feels faint. 3. VERTIGO:no spinning or tilting 4. SEVERITY: mild 5. ONSET: about 2 weeks ago 6. AGGRAVATING FACTORS: when standing up or sudden position changes 7. HEART RATE: (not measured) 8. CAUSE: Pt unsure 9. RECURRENT SYMPTOM: has had before 10. OTHER SYMPTOMS: Denies fever, chest pain, vomiting, diarrhea Catrina Sutton RN [facility] Miscellaneous Notes* Telephone Encounter - Catrina Sutton RN - 08/11/2024 2:38 PM EST Triage Protocol Advised: See provider for evaluation within 24 hours. To ER for any red flag sx's as discussed. Appt made with Jagjit Alexander CNP for 08/12/24. Patient reports she mentioned to Hematology office yesterday that she has been feeling lightheaded and tired. She was advised to contact her PCP. Per Hematology provider, pt's labs have been stable and provider is concerned it may be related to BP. Pt does not check BP at home-no batteries for homemonitor. History includes, but not limited to: HTN, elevated LFT's, diverticulitis, internal hemorrhoids, rectal bleeding, irritable bowel syndrome Reports has bleeding hemorrhoids daily. States this is not new. Reports 1 week ago she had some vomiting and diarrhea and this has resolved. Denies feeling like passing out. No headaches or vision changes. No pain, chest pain or SOB. 1. DESCRIPTION: Feels lightheaded daily but come and goes, especially when standing up or after beginning to walk 2. LIGHTHEADED: yes. Never feels faint. 3. VERTIGO:no spinning or tilting 4. SEVERITY: mild 5. ONSET: about 2 weeks ago 6. AGGRAVATING FACTORS: when standing up or sudden position changes 7. HEART RATE: (not measured) 8. CAUSE: Pt unsure 9. RECURRENT SYMPTOM: has had before 10. OTHER SYMPTOMS: Denies fever, chest pain, vomiting, diarrhea Catrina Sutton RN documented in this encounterMem[facility] Hospital11-25-2024 Telephone encounter Note * Telephone Encounter - Lela Will LPN - 08/10/2024 12:51 PM EST Patient notified. Lela Will LPN [facility] Miscellaneous Notes* Telephone Encounter - Lela Will LPN - 08/10/2024 12:51 PM EST Patient notified. Lela Will LPN * Telephone Encounter - Beata Boone - 08/10/2024 12:12 PM EST Her labs have been stable. I would be more concerned that this is a BP issue? She should follow up with PCP for these symptoms. Beata Boone APRN.ASSOCIATE SOFTWARE APPLICATION ENGINEER * Telephone Encounter - Kavitha Vasques - 08/10/2024 9:56 AM EST Patient called stating she is tired all the time/lightheaded. She is asking if she can have labs completed prior to end august. documented in this encounterMem[facility]11-25-2024 Telephone encounter Note * Telephone Encounter - Beata Boone - 08/10/2024 12:12 PM EST Her labs have been stable. I would be more concerned that this is a BP issue? She should follow up with PCP for these symptoms. Beata Boone APRN.ASSOCIATE SOFTWARE APPLICATION ENGINEER [facility] Work Phone: 1(852) 425-449111-25-2024 Telephone encounter Note* Telephone Encounter - Kavitha Vasques - 08/10/2024 9:56 AM EST Patient called stating she is tired all the time/lightheaded. She is asking if she can have labs completed prior to end august. [facility] Work Phone: 1(522) 823-185411-19-2024 History of Present illness Narrative* Reef Shahrzad Bonilla, RT(R) - 08/04/2024 10:00 AM EST Radiology Service Progress Note DATE OF SERVICE: August 04, 2024 TIME: 11:10 AM PATIENT IDENTITY VERIFICATION COMPLETED USING TWO (2) STANDARD IDENTIFIERS: Name and Date of confirmed by patient verbally. FALL SCREENING: Has the patient had 2 falls in the last year or 1 fall with injury or currently using an Ambulatory Assistive Device (Walker, Cane, Wheelchair, Crutches, etc.)? No PATIENT GENDER DATA: Female. status: : No status: NO. PATIENT RELEVANT IMPLANT DATA REVIEWED: Yes PATIENT PRESENTS WITH AN IMPLANTABLE OR ATTACHED GOLD BUYER: No ALLERGIES: Reviewed and unchanged CONTRAST ALLERGY: NO. EXAM: CT -CONTRAST INDUCED NEPHROPATHY RISK FACTORS: Patient age > 60 years CREATININE: Creatinine Date Value Ref Range Status 06/18/2024 0.85 0.58 - 0.96 mg/dL Final 04/16/2024 0.97 (H) 0.58 - 0.96 mg/dL Final 02/18/2024 0.78 0.58 - 0.96 mg/dL Final Estimated Glomerular Filtration Rate Date Value Ref Range Status 06/18/2024 74 >=60 mL/min/1.73m Final Comment: Estimated Glomerular Filtration Rate (eGFR) is calculated using the 2020 CKD-EPI creatinine equation. This equation utilizes serum creatinine, sex, and age as parameters. The creatinine assay has traceable calibration to isotope dilution- mass spectrometry. Refer to KDIGO guidelines for clinical interpretation. In patients with unstable renal function, e.g. those with acute kidney injury, the eGFRmay not accurately reflect actual GFR. eGFR- Date Value Ref Range Status 06/26/2021 >60 Final P.O.C.T. RESULTS: POC done: Yes, See Lab Tab August 04, 2024 TREATMENT: N/A PERIPHERAL IV DATA: Ambulatory: A peripheral IV was started in the Left antecubital site with a Angio cath: 22 gauge. RADIOLOGY DEPARTMENT: CT; Exam(s) Completed: Chest Abdomen Pelvis SIGNATURE: RT River(R) PATIENT NAME: Barbara Meneses DATE: August 04, 2024 TIME: 11:10 AM documented in this encounterMem[facility] Hospital11-19-2024 [place]11-01-2024 History of Present illness Narrative* Connor Galvan MD - 07/17/2024 8:00 AM EDT Images from the original note were not included. . [facility] [place] Note Patient name: Barbara Meneses PCP: Juan Locke DO Referring Physician: Consultation requested by Dr. Locke for an opinion regarding lung nodules. My final recommendations will be communicated back to the requesting physician by way of shared Medical record or letter to requesting physician via US mail. CC: Pulmonary nodules HPI: Barbara Meneses 69 year old obese female former minimal remote smoker with PMH significantfor HTN, DM, nephrectomy (congenital atrophy), portal hypertension (splenomegaly, varices, ascites), hypothyroidism, JENN (not on CPAP since losing weight) being referred for evaluation of pulmonary nodules. Has repeat chest CT pending 08/04/24 per surgical oncology. First started having trouble in the spring of this year with chest congestion, coughing, shortness of breath, wheezing and GI bleeding. Imaging pertinent for pleural effusions and evidence of cirrhosis with ascites and bilateral less than 6 mm pulmonary nodules. Status post thoracentesis 02/28/2024 with removal of 2090 mL of clear f luid, transudate by chemistries, negative cytology. Required repeat thoracentesis 04/02/2024 with removal of 6080 clear fluid again transudate and negative cytology. Since she has had better management of her ascites, she has not required repeat thoracentesis and her chest wheezing and shortness of breath have resolved. She will occasionally have dry cough with coughing jags that occur once every few months and respond to albuterol. No obvious trigger for her coughing spells. Recently seen by surgical oncology for abnormal abdominal CT raising the question of carcinomatosis due to a nodular density in the right paracolic gutter and surrounding the inferior mesenteric artery. Surgeon felt that changes may be related to her previous recurrent infections necessitating nephrectomy in the past.She is pending repeat chest abdomen and pelvic CT in a few weeks. DATA: Labs: Component Ref Range & Units 3 wk ago Ferritin 14.7 - 205.1 ng/mL 79.0 Component Ref Range & Units 3 wk ago (06/18/24) WBC 3.70 - 11.00 k/uL 2.70 Low RBC 3.90 - 5.20 m/uL 3.52 Low Hemoglobin 11.5 - 15.5 g/dL 10.4 Low Hematocrit 36.0 - 46.0 % 31.9 Low MCV 80.0 - 100.0 fL 90.6 MCH 26.0 - 34.0 pg 29.5 MCHC 30.5 - 36.0 g/dL 32.6 RDW-CV 11.5 - 15.0 % 20.2 High Platelet Count 150 - 400 k/uL 86 Low Comment: No clot detected. MPV 9.0 - 12.7 fL 10.4 Neutrophils % % 60.0 Abs Neut 1.45 - 7.50 k/uL 1.62 Lymphocytes % % 25.6 Abs Lymph 1.00 - 4.00 k/uL 0.69 Low Monocytes % % 8.1 Abs [place] <0.87 k/uL 0.22 Eosinophils % % 5.2 Abs Eosin <0.46 k/uL 0.14 Basophils % % 0.7 Abs Baso <0.11 k/uL <0.03 Immature Granulocytes % % 0.4 Abs Immature Gran <0.10 k/uL <0.03 NRBC /100 WBC 0.0 Absolute nRBC <0.01 k/uL <0.01 Diff Type Auto Imaging / Diagnostic Studies: DATE OF EXAM: Jan 14 2024 12:06PM [facility] 0541 - CT CHEST WO IVCON / Comparison: No prior CT chest is available for comparison. RESULT: Limitations: None. Lines, tubes, and devices: None. Lung parenchyma and airways: Scattered subcentimeter pulmonary nodules. For example: *5 mm nodule posterior right upper lobe (6:128) *4 mm nodule lateral right lower lobe (6:130) *4 mm nodule left upper lobe (6:111) *4 mm nodule posterior left lower lobe (6:137) No consolidation. Central airways are patent. Pleural space: Small bilateral pleural effusions. Lower neck, lymph nodes, and mediastinum: The imaged thyroid gland is normal. No lymphadenopathy in the supraclavicular, axillary, mediastinal, or hilar regions. Heart, pericardium, and thoracic vessels: The thoracic aorta and main pulmonary artery are normal in caliber. The cardiac chambers are normal in size. Mild coronary artery atherosclerotic calcifications are noted, although the study is not optimized for coronary assessment. No pericardial effusion or thickening. Bones and soft tissues: No destructive bone lesion. Degenerative disease of the thoracic spine. Chest wall is unremarkable. Upper abdomen: 7 x 4.2 cm hypodensity in the posterior right lobe of the liver (5:197). Mild ascites. Splenomegaly. Localizer images: No additional findings. IMPRESSION: 1. Scattered pulmonary nodules measuring up to 5 mm 2. No thoracic lymphadenopathy 3. Small bilateral pleural effusions 4. Hypodensity in the posterior right lobe of the liver which could be further characterized by MRI 5. Mild ascites Review of chest imaging shows bilateral small effusions greater than right, bilateral subcentimeterpulmonary nodules DATE OF EXAM: May 12 2024 2:37PM [facility] 0530 - CT ABD/PEL W IVCON / IMPRESSION: 1. Mild ill-defined soft tissue nodularity within the right posterior abdomen/paracolic gutter as well as ill-defined soft tissue nodularity surrounding the inferior mesenteric artery. Possibility of carcinomatosis is raised. 2. Cirrhotic liver morphology. 3. Borderline splenomegaly. 4. Stable pulmonary nodules in the visualized lung bases. 5. Additional incidental findings as described. Echocardiogram 02/2024: CONCLUSIONS: - Technically difficult exam due to body habitus. - Exam indication: Shortness of Breath - The left ventricle is normal in size. Left ventricular systolic function is normal. EF = 55 5% (2D 4-ch.) Grade I left ventricular diastolic dysfunction. - The right ventricle is normal in size. Right ventricular systolic function is normal. - There are no significant valvular abnormalities. - Trivial to mild pericardial effusion without apparent tamponade physiology. - The patient has not had a prior CC echocardiographic exam for comparison. 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 spironolactone (ALDACTONE) 50 mg tablet Take 2 tablets by mouth once daily. zolpidem (AMBIEN) 10 mg Take 1 tablet by mouth at bedtime as needed (insomnia) for up to 30 days. buPROPion (WELLBUTRIN) 100 mg tablet Take 2 tablets to total 200 mg in the morning and 1 tablet in the evening, total of 300 mg a day furosemide (LASIX) 20 mg tablet Take 1 tablet by mouth once daily. albuterol HFA (VENTOLIN HFA) 90 mcg/actuation inhaler Inhale 2 Puffs as instructed every 4 hours asneeded for wheezing/shortness of breath. potassium chloride (K-TAB) 10 mEq tablet Take 10 mEq by mouth once daily. SYNTHROID 125 mcg tablet Take 1 tablet by mouth once daily. Take on empty stomach. For Thyroid dulaglutide (TRULICITY) 0.75 mg/0.5 mL pen injector Inject 0.75 mg subcutaneously one time a week. Dx: Type 2 diabetes uncontrolled, Inject dose once per week. Discard Pen After DULoxetine (CYMBALTA) 60 mg capsule TAKE 1 CAPSULE DAILY (Patient taking differently: Take 60 mg bymouth once daily. TAKE 1 CAPSULE DAILY) ergocalciferol 50,000 unit capsule (VITAMIN D2, DRISDOL) Take 1 capsule by mouth one time a week. iv contrast (will be provided with radiology test) CT Chest ABD/PEL-Inject, intravenously, once for1 dose.No IV access, insert saline lock prior to the beginning of sedation, infusion, injection of imaging exam. Discontinue saline lock post exam. If Pt. has a central line or IVAD, may access for administration according to line specific nursing protocol. Once exam is complete flush line and de-access according to line specific nursing protocol in the CT contrast administration guidelines link. enteric contrast (will be provided with radiology test) For CT CHESTABD/PEL W IVCON Routine order Administer, As Directed One Time Only, via Oral, Rectal, both Oral and Rectal, Enteric Tube, Stoma orIndwelling Catheter, Enteric Contrast as designated per enteric contrast guidelines Blood-Glucose Meter,Continuous (FREESTYLE THEE 3 READER) [facility] [place] Use to check blood sugar at least four (4) times daily. Blood-Glucose Sensor (FREESTYLE THEE 3 SENSOR) [place] Apply new sensor every fourteen (14) days to upper arm. Lancets lancets Test blood sugar(s) 1 times daily. Dx: Type 2 DM - Uncontrolled E11.65 Insulin: No blood sugar diagnostic (BLOOD GLUCOSE TEST) test strip Test blood sugar(s) 1 times daily. 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 Larkin COLONOSCOPY SCREENING 02/22/2023 EGD W/O BRSH SPEC VARICIES INJ 02/22/2023 HYSTERECTOMY HX 1993 Total PAST SURGICAL HISTORY OF 1974 right kidney removed THYROIDECTOMY SUBTOTAL/PARTIAL 1991 PMH, Social history, family history and surgical history reviewed and updated in EMR REVIEW OF SYSTEMS: CONSTITUTIONAL: No fevers, chills, nightsweats, unintended weight loss HEENT: Denies nasal congestion/sinus symptoms, allergy problems. CARDIOVASCULAR: No chest pain, dyspnea, palpitations, orthopnea, PND, edema. PULM: See HPI GI: No dysphagia/odynophagia, problematic reflux, current GI bleeding or abdominal distention. : No current UTIs NEURO: No balance problems, peripheral weakness/paresthesias or numbness of concern. PSY: No concerns regarding depression, anxiety INTEGUMENTARY: No new skin changes PHYSICAL EXAMINATION: Wt 194 lbs, SpO2 99%, RR 18, P 86, BP 102/70 General Appearance: Obese female, NAD. Skin: Skin color, texture, turgor normal, no suspicious rashes or lesions. No spider angiomata Head: Normocephalic, no masses, lesions, tenderness or abnormalities. Eyes: Sclera normal, conjunctiva normal. Oropharynx: No oral lesions. Neck: No JVD, no masses, no adenopathy. Lungs: Not labored, normal to percussion, no wheezes, no crackles. Heart: Regular rate and rhythm, no murmur. Extremities: Mild edema, no clubbing, no palmar erythema. Assessment/Plan: 1. Pulmonary nodules -Suspect benign, granulomatous disease. Normally would have recommended repeat CT in 1 year but sheis pending an updated CT. I will review the images once they are available 2. Cirrhosis of the liver with ascites -Follows with GI 3. Portal hypertension with esophageal varices -Has not required banding and no bleeding 4. 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 No evidence of pulmonary hypertension on recentechocardiogram -Treatment aimed at controlling ascites I spent a total of 75 minutes on the date of the service which included preparing to see the patient, [id number] patient care, completing clinical documentation, obtaining and/or reviewing separately obtained history, performing a medically appropriate examination, and independently interpreting r esults (not separately reported). Connor Galvan MD [facility] [place] documented in this encounterMemorial Hospital11-01-2024 NoteCent[place]10-23-2024 Instructions* Patient Instructions* Juan Locke DO - 07/08/2024 8:[address] Wu the surgeon, if able to assess the hemorrhoids too ? Decrease propranolol to twice a day, down from 3 times a day Protein shake every day documented in this encounterMemorial Hospital10-23-2024 [place]10-23-2024 History of Present illness Narrative* Juan Locke DO - 07/08/2024 8:41 AM EDT During last hospitalization she was started on lasix and propranolol medications. She was up to 40 mg of Lasix Seeing Brand Leader at Dr. Zimmer Application Services Manager office. She was started on spironolactone 50 mg a day. Then her dose was increased to 100 mg a day. Has recently had her lasix dose decreased to 20 mg a day Her dose of propranolol is still at 10 mg 3 times a day. She has been noticing that her BLOOD PRESSURE has been low into the 80s/50s and she gets lightheaded at times. Has been having a lot of right lower abdominal/groin discomfort. Diagnosed with a right flank hernia. [facility], no signs of malignancy. Has a follow up 08/04 CT scan chest and abd/pelvis for follow up and then 08/19 she will have a follow up with Dr. Hernandez as well as another specialist. Iron deficiency anemia, has internal and external hemorrhoids, bleeding episodes are still present,this has been going on for months. She is going to ask the surgeon if this can be dealt with too. Patient presents with: 6 Month Exam HPI: Barbara Meneses is a 69 year old female who presents to the office today for review of health conditions. Concerns today: During last hospitalization for her liver disease, she was started on lasix and propranolol medications. She had dose originally increased up to 40 mg of Lasix Seeing Brand Leader at Dr. Zimmer Application Services Manager office this week for an appointment- no information has been relayed back to our office yet. She was started on spironolactone 50 mg a day. Then her dose was increased to 100 mg a day. Has recently had her lasix dose decreased to 20 mg a day due to side effects of her BP Her dose of propranolol is still at 10 mg 3 times a day. She has been noticing that her BLOOD PRESSURE has been low into the 80s/50s and she gets lightheaded at times. Has been having a lot of right lower abdominal/groin discomfort. Diagnosed with a right flank hernia on recent CT scan in the last 1-2 months. [facility], no signs of malignancy. Has a follow up 08/04 CT scan chest and abd/pelvis for follow up and then 08/19 shewill have a follow up with Dr. Hernandez as well as another specialist. Iron deficiency anemia, has internal and external hemorrhoids, bleeding episodes are still present,this has been going on for months. She is going to ask the surgeon if this can be dealt with too. Ms. Meneses has past history of diabetes. Since our last visit she denies excessive thirst or increased frequency of urination, chest pain or dyspnea , new or unusual visual symptoms, and low sugar/hypoglycemic reactions. Depression- no. Follows a diabetic diet some of the time. She is compliantwith medication(s) and is tolerating med(s) without any side effects. She reports checking her glucose on a infrequent to not at all basis schedule with sugars in the <150 range. Patient's last HgA1C was Hemoglobin A1C (%) Date Value 03/31/2024 5.1 12/11/2023 6.9 09/01/2021 8.6 06/26/2021 9.2 ) Last Ophthalmology exam was within the past 12 months Ms. Meneses reports history of hyperlipidemia. Current therapy includes diet and exercise. Denies side effects of muscle weakness or achiness. Her most recent lipid panels are reviewed. Cholesterol, Total (mg/dL) Date Value 12/11/2023 116 06/26/2021 141 HDL Cholesterol (mg/dL) Date Value 12/11/2023 49 06/26/2021 42 LDL Cholesterol (mg/dL) Date Value 12/11/2023 57 06/26/2021 80 Triglyceride (mg/dL) Date Value 12/11/2023 52 06/26/2021 95 Ms. Meneses indicates a history of hypertension and states that she is feeling well and denies any symptoms referable to elevated blood pressure. Specifically denies headache, chest pain, palpitations, and dyspnea. Patient denies any side effects of her medication(s) and is compliant with their r egimen. Last 3 Encounter BP Readings: Date: BP: 07/08/2024 90/50 06/18/2024 100/58 06/10/2024 112/64 She watches her diet for sodium, low fat and low cholesterol some of the time. She does not check BP's generally. Barbara gets sporadic irregular exercise. 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 Larkin COLONOSCOPY SCREENING 02/22/2023 EGD W/O BRSH SPEC VARICIES INJ 02/22/2023 HYSTERECTOMY HX 1994 Total PAST SURGICAL HISTORY OF 1974 right kidney removed THYROIDECTOMY SUBTOTAL/PARTIAL 1991 Social History Tobacco Use Smoking status: Former Current packs/day: 0.00 Average packs/day: 0.3 packs/day for 5.0 years (1.3 ttl pk-yrs) Types: Cigarettes Start date: 1978 Quit date: 1983 Years since quittin.8 Smokeless tobacco: Never Vaping Use Vaping status: Never Used Substance Use Topics Alcohol use: Yes Comment: Occasionally Drug use: No FAMILY HISTORY Problem Relation Age of Onset Osteoporosis Mother other (Hepatitis C) Mother Colon Cancer Father other (myasthenia gravis) Father Aneurysm Father Osteoporosis Sister No Known Problems Brother No Known Problems Brother Aneurysm Brother Cancer Brother bladder other (atrial fib) Brother COPD Brother No Known Problems Maternal Grandmother Stroke Maternal Grandfather Allergies: ALLERGIES Allergen Reactions Mold Unknown Adhesive Tape (Yamel* Rash Januvia [Sitaglipti* Intolerance GI upset, aching of muscles, headaches Latex Itching Current Meds: propranolol (INDERAL) 10 mg tablet Take 1 tablet by mouth two times a day. iv contrast (will be provided with radiology test) CT Chest ABD/PEL-Inject, intravenously, once for1 dose.No IV access, insert saline lock prior to the beginning of sedation, infusion, injection of imaging exam. Discontinue saline lock post exam. If Pt. has a central line or IVAD, may access for administration according to line specific nursing protocol. Once exam is complete flush line and de-access according to line specific nursing protocol in the CT contrast administration guidelines link. enteric contrast (will be provided with radiology test) For CT CHESTABD/PEL W IVCON Routine order Administer, As Directed One Time Only, via Oral, Rectal, both Oral and Rectal, Enteric Tube, Stoma orIndwelling Catheter, Enteric Contrast as designated per enteric contrast guidelines spironolactone (ALDACTONE) 50 mg tablet Take 2 tablets by mouth once daily. zolpidem (AMBIEN) 10 mg Take 1 tablet by mouth at bedtime as needed (insomnia) for up to 30 days. buPROPion (WELLBUTRIN) 100 mg tablet Take 2 tablets to total 200 mg in the morning and 1 tablet in the evening, total of 300 mg a day furosemide (LASIX) 20 mg tablet Take 1 tablet by mouth once daily. albuterol HFA (VENTOLIN HFA) 90 mcg/actuation inhaler Inhale 2 Puffs as instructed every 4 hours asneeded for wheezing/shortness of breath. Blood-Glucose Meter,Continuous (FREESTYLE THEE 3 READER) misc Use to check blood sugar at least four (4) times daily. Blood-Glucose Sensor (FREESTYLE THEE 3 SENSOR) louis Apply new sensor every fourteen (14) days to upper arm. potassium chloride (K-TAB) 10 mEq tablet Take 10 mEq by mouth once daily. SYNTHROID 125 mcg tablet Take 1 tablet by mouth once daily. Take on empty stomach. For Thyroid dulaglutide (TRULICITY) 0.75 mg/0.5 mL pen injector Inject 0.75 mg subcutaneously one time a week. Dx: Type 2 diabetes uncontrolled, Inject dose once per week. Discard Pen After DULoxetine (CYMBALTA) 60 mg capsule TAKE 1 CAPSULE DAILY (Patient taking differently: Take 60 mg bymouth once daily. TAKE 1 CAPSULE DAILY) ergocalciferol 50,000 unit capsule (VITAMIN D2, DRISDOL) Take 1 capsule by mouth one time a week. Lancets lancets Test blood sugar(s) 1 times daily. Dx: Type 2 DM - Uncontrolled E11.65 Insulin: No blood sugar diagnostic (BLOOD GLUCOSE TEST) test strip Test blood sugar(s) 1 times daily. Dx: Type 2 DM - Uncontrolled E11.65 Insulin: No Review of Systems: The remainder of the review of systems is negative. PE: 07/08/24 0808 BP: 90/50 Pulse: 76 Resp: 20 Temp: 36.1 C (97 F) TempSrc: Left Tympanic Weight: 88 kg (194 lb 0.1 oz) Gen: A&O, NAD, non-toxic appearing, Pleasant, appears fatigued, slightly jaundiced, cooperative HEENT: NT/AC, PERRLA, EOMs intact b/l, nares clear and patent b/l, pharynx without erythema, exudate or lesions. Uvula midline. EACs without erythema or debris. TMs pearly land with intact landmarks b/l. Neck: supple, No cervical LAD, no thyromegaly, no carotid bruits CV: RRR, normal S1 and S2, no murmurs, no gallops, no rubs, Pulses 2+ and symmetric in UE and LE b/l Lungs: normal respiratory effort, CTA b/l, no wheezing or rhonchi or rales Abd: soft, NT, ND, +BS, no hepatosplenomegaly MS: FROM all 4 extremities Neuro: CN II-XII intact b/l, strength 5/5 b/l UE and LE, DTRs 2/4 UE and LE, sensation intact. Skin: warm, dry, intact, No rashes or lesions on exposed skin. Foot exam: Monofilament abnormal on right and left feet. Trace leg non pitting edema, symmetric ASSESSMENT/PLAN: 1. Uncontrolled type 2 diabetes mellitus with hyperglycemia (HCC) - ICD9: 250.02, ICD10: E11.65 (primary diagnosis) - Controlled - Continue current medications - Blood glucose monitoring on a once daily schedule - Counseled on healthy diet and regular exercise - Discussed need for and benefit of weight loss. BMI 33.30 kg/(m^2) - HEMOGLOBIN A1C (POC) 2. Cirrhosis, nonalcoholic (HCC) - ICD9: 571.5, ICD10: K74.60 F/u with Application Services Manager/material chaser. Needs to talk to cardiac rn. - CONSULT TO NUTRITION THERAPY 3. Portal venous hypertension (HCC) - ICD9: 572.3, ICD10: K76.6 F/u with Application Services Manager/material chaser. Needs to talk to cardiac rn. 4. Right lower quadrant abdominal pain - ICD9: 789.03, ICD10: R10.31 F/u with surgeon for opinion. 5. Hypotension, unspecified hypotension type - ICD9: 458.9, ICD10: I95.9 Decrease propranolol dose to 2x/day 6. History of pleural effusion - ICD9: V12.69, ICD10: Z87.09 F/u with Binding Cementer [employer]. 7. Hypertension, essential - ICD9: 401.9, ICD10: I10 - Controlled - decreased propranolol current medications - Recommend home blood pressure monitoring, to bring results to next visit - Encouraged sodium restriction, DASH or Mediterranean diet - Recommend regular aerobic exercise 8. Esophageal varices determined by endoscopy (HCC) - ICD9: 456.1, ICD10: I85.00 F/u with Brand Leader 9. Thrombocytopenia (HCC) - ICD9: 287.5, ICD10: D69.6 Secondary to liver disease F/u with Director Volunteer Services and Brand Leader Juan Locke DO I spent 44 minutes in the visit, with more than 50% of the total [id number] time of the visit in counseling / coordination of care. To ER if develops chest pain, shortness of breath, or severe worsening of symptoms. Discussed risks, benefits, alternatives, and potential side effects of medications. Patient expressed understanding and agreed with the plan. Juan Locke DO [address] [place] [address] documented in this encounterMem[facility] Hospital10-22-2024 History of Present illness Narrative* Pauline Garcia RT(R) - 07/07/2024 3:10 PM EDT Radiology Service Progress Note PATIENT NAME: Barbara Meneses DATE OF SERVICE: July 07, 2024 TIME: 3:22 PM PATIENT IDENTITY VERIFICATION COMPLETED USING TWO (2) IDENTIFIERS: Name and Date of confirmedby patient verbally. FALL SCREENING: Has the patient had 2 falls in the last year or 1 fall with injury or currently using an Ambulatory Assistive Device (Walker, Cane, Wheelchair, Crutches, etc.)? No PATIENT GENDER DATA: Female. status: : No status: NO. PATIENT RELEVANT IMPLANT DATA REVIEWED: Yes PATIENT PRESENTS WITH AN IMPLANTABLE OR ATTACHED GOLD BUYER: No RADIOLOGY DEPARTMENT: General X-ray: Exam(s) Completed: Chest X-Ray PERIPHERAL IV DATA: Not applicable SIGNED BY: RT Flo(R) July 07, 2024 3:22 PM documented in this encounterMemorial Hospital10-22-2024 [place]10-16-2024 NoteHNO ID: [id number] Author: MERY HERNANDEZ MD Service: ? Author Type: Physician Type: Progress Notes Filed: 07/05/2024 14:58 Note Text: Mery Hernandez M.D. Surgical Oncology [address] [facility], [address] [place] [address] Plan SUBJECTIVE HPI Barbara Meneses is a 69 year old female presenting for possible right lower quadrant mass. Patient reports that for the past several months she has had some right lower quadrant abdominal pain. This prompted a CT scan which was performed on May 12, 2024. This demonstrated a ill-defined soft tissue nodularity within the right posterior abdomen/paracolic gutter as well as an ill-defined soft tissue nodularity surrounding the inferior mesenteric artery. Possibility of carcinomatosis was raised as well as concern for cirrhotic liver morphology and borderline splenomegaly. Patient was referred to general surgery but given the complexity of her abdominal findings she was referred to surgical oncology for further evaluation. Currently, patient reports that she continues to have some intermittent right lower quadrant abdominal pain which she reports is worse with walking and with exercise/lifting. She reports no nausea or vomiting. No changes to her bowel habits. She reports no other new or worrisome symptoms. Patient has had recent upper and lower endoscopies which demonstrate no significant findings in the colon except for hemorrhoids and no significant findings in the upper GI tract except for esophageal varices. This study was performed for some blood per rectum. The ROS, medical, surgical, family, and social history were reviewed by Mery Hernandez MD. OBJECTIVE Ht 162.6 cm (5' 4) Wt 86.6 kg (191 lb) BMI 32.79 kg/m? BMI 32.78 kg/(m2) Physical Exam Constitutional: General: She is not in acute distress. HENT: Head: Normocephalic and atraumatic. Eyes: Pupils: Pupils are equal, round, and reactive to light. Neck: Thyroid: No thyromegaly. Trachea: No tracheal deviation. Cardiovascular: Rate and Rhythm: Normal rate and regular rhythm. Heart sounds: Normal heart sounds. Pulmonary: Effort: Pulmonary effort is normal. No respiratory distress. Breath sounds: Normal breath sounds. No stridor. Abdominal: General: There is no distension. Palpations: Abdomen is soft. Tenderness: There is no abdominal tenderness. Musculoskeletal: General: No deformity. Normal range of motion. Skin: General: Skin is warm and dry. Findings: No erythema or rash. Neurological: Mental Status: She is alert and oriented to person, place, and time. Psychiatric: Mood and Affect: Affect normal. Judgment: Judgment normal. ASSESSMENT AND PLAN 69-year-old woman with cirrhosis and thrombocytopenia presenting for concern for carcinomatosis. I discussed with patient the finding on her CT scan. I advised her that I do not see obvious signs of carcinomatosis. The areas in question on her CT scan are mostly retroperitoneal and mesenteric structures. I reviewed her previous CT scan from 2016 without contrast that does not demonstrate these findings. However on both CT scans patient does appear to have a right flank hernia consistent with her previous right nephrectomy. Advised patient that her hernia could be the source of her pain. We could perform a diagnostic laparoscopy for the evaluation of her intra-abdominal findings however as she is close to 2 months out from her last imaging I advised patient that proceeding with short interval imaging in a month was fairly reasonable to determine the extent of these findings. After thorough discussion with the patient of the risks and benefits of surgery as well as the risks and benefits of interval imaging we elected to proceed with interval imaging. Patient will follow-up with me after her next CT scan. I answered all of her questions to her satisfaction she was agreeable to this plan. I spent a total of 45 minutes on the date of the service which included preparing to see the patient, completing clinical documentation, performing a medically appropriate examination, counseling and educating the patient/family/caregiver, ordering medications, tests, or procedures, and independently interpreting results (not separately reported). Mery Hernandez MD 07/01/2024 11:35 [facility]10-16-2024 History of Present illness Narrative* Mery Hernandez MD - 07/01/2024 11:34 AM EDT Images from the original note were not included. Mery Hernandez M.D. Surgical Oncology [address] [facility], [address] [place] [address] Plan SUBJECTIVE HPI Barbara Meneses is a 69 year old female presenting for possible right lower quadrant mass. Patient reports that for the past several months she has had some right lower quadrant abdominal pain. This prompted a CT scan which was performed on May 12, 2024. This demonstrated a ill-defined soft tissue nodularity within the right posterior abdomen/paracolic gutter as well as an ill-definedsoft tissue nodularity surrounding the inferior mesenteric artery. Possibility of carcinomatosis was raised as well as concern for cirrhotic liver morphology and borderline splenomegaly. Patient was referred to general surgery but given the complexity of her abdominal findings she was referred to surgical oncology for further evaluation. Currently, patient reports that she continues to have some intermittent right lower quadrant abdominal pain which she reports is worse with walking and with exercise/lifting. She reports no nausea orvomiting. No changes to her bowel habits. She reports no other new or worrisome symptoms. Patient has had recent upper and lower endoscopies which demonstrate no significant findings in thecolon except for hemorrhoids and no significant findings in the upper GI tract except for esophageal varices. This study was performed for some blood per rectum. The ROS, medical, surgical, family, and social history were reviewed by Mery Hernandez MD. OBJECTIVE Ht 162.6 cm (5' 4) Wt 86.6 kg (191 lb) BMI 32.79 kg/m BMI 32.78 kg/(m^2) Physical Exam Constitutional: General: She is not in acute distress. HENT: Head: Normocephalic and atraumatic. Eyes: Pupils: Pupils are equal, round, and reactive to light. Neck: Thyroid: No thyromegaly. Trachea: No tracheal deviation. Cardiovascular: Rate and Rhythm: Normal rate and regular rhythm. Heart sounds: Normal heart sounds. Pulmonary: Effort: Pulmonary effort is normal. No respiratory distress. Breath sounds: Normal breath sounds. No stridor. Abdominal: General: There is no distension. Palpations: Abdomen is soft. Tenderness: There is no abdominal tenderness. Musculoskeletal: General: No deformity. Normal range of motion. Skin: General: Skin is warm and dry. Findings: No erythema or rash. Neurological: Mental Status: She is alert and oriented to person, place, and time. Psychiatric: Mood and Affect: Affect normal. Judgment: Judgment normal. ASSESSMENT AND PLAN 69-year-old woman with cirrhosis and thrombocytopenia presenting for concern for carcinomatosis. I discussed with patient the finding on her CT scan. I advised her that I do not see obvious signs of carcinomatosis. The areas in question on her CT scan are mostly retroperitoneal and mesenteric structures. I reviewed her previous CT scan from 2016 without contrast that does not demonstrate these fin dings. However on both CT scans patient does appear to have a right flank hernia consistent with her previous right nephrectomy. Advised patient that her hernia could be the source of her pain. We could perform a diagnostic laparoscopy for the evaluation of her intra-abdominal findings however as she is close to 2 months out from her last imaging I advised patient that proceeding with short interval imaging in a month was fairly reasonable to determine the extent of these findings. After thorough discussion with the patient of the risks and benefits of surgery as well as the risks and benefits of interval imaging we elected to proceed with interval imaging. Patient will follow-up with me after her next CT scan. I answered all of her questions to her satisfaction she was agreeable to this plan. I spent a total of 45 minutes on the date of the service which included preparing to see the patient, completing clinical documentation, performing a medically appropriate examination, counseling andeducating the patient/family/caregiver, ordering medications, tests, or procedures, and independently interpreting results (not separately reported). Mery Hernandez MD 07/01/2024 11:35 AM documented in this encounterMemorial Hospital10-14-2024 Telephone encounter Note * Telephone Encounter - Jenny Au PA-C - 06/29/2024 1:40 PM EDT This was refilled today by Quynh Beth. Jenny Au PA-C [facility] Work Phone: [phone]) 522-440610-14-2024 Miscellaneous Notes* Telephone Encounter - Jenny Au PA-C - 06/29/2024 1:40 PM EDT This was refilled today by Quynh Beth. Jenny Au PA-C * Telephone Encounter - Azucena Zarate LPN - 06/29/2024 11:25 AM EDT Pt calls to report she ran out of spironolactone 50 mg yesterday. Dose was increased to 2 tabs daily but new rx was not sent in. There is a med update in pt's chart that shows the 2 tabs daily. (06/12/24) Pt is nervous to go too many days without medication. Prescription Refill Information The patient has been identified by name and date of : Yes Caregiver verified no other encounters exist for this prescription request: Yes Caregiver confirmed with patient/requestor that no other refills are due, in the near future, with this provider at this time: Yes The last office visit in the department: 06/10/24 Does the patient have a future office visit with this provider/department: Yes 07/08/24 with pcp Requested Prescriptions Pending Prescriptions Disp Refills spironolactone (ALDACTONE) 50 mg tablet 60 tablet 2 Sig: Take 2 tablets by mouth once daily. Azucena Zarate LPN June 29, 2024 11:27 AM documented in this encounterMemorial Hospital10-14-2024 Telephone encounter Note * Telephone Encounter - Pooja Matias LPN - 06/29/2024 11:41 AM EDT Patient has been identified by name and date of : Patient phones for refill(s): Requested Prescriptions Pending Prescriptions Disp Refills spironolactone (ALDACTONE) 50 mg tablet 60 tablet 2 Sig: Take 2 tablets by mouth once daily. Date of last office visit in primary care: 06/10/2024 Date of next office visit in primary care: 07/08/2024 Please advise. Thank you. Pooja Matias LPN. [facility]10-[facility] Miscellaneous Notes* Telephone Encounter - Pooja Verduzco LPN - 06/29/2024 11:41 AM EDT Patient has been identified by name and date of : Patient phones for refill(s): Requested Prescriptions Pending Prescriptions Disp Refills spironolactone (ALDACTONE) 50 mg tablet 60 tablet 2 Sig: Take 2 tablets by mouth once daily. Date of last office visit in primary care: 06/10/2024 Date of next office visit in primary care: 07/08/2024 Please advise. Thank you. Pooja Matias LPN. documented in this encounterMemorial Hospital10-14-2024 Telephone encounter Note * Telephone Encounter - Azucena Zarate LPN - 06/29/2024 11:25 AM EDT Pt calls to report she ran out of spironolactone 50 mg yesterday. Dose was increased to 2 tabs daily but new rx was not sent in. There is a med update in pt's chart that shows the 2 tabs daily. (06/12/24) Pt is nervous to go too many days without medication. Prescription Refill Information The patient has been identified by name and date of : Yes Caregiver verified no other encounters exist for this prescription request: Yes Caregiver confirmed with patient/requestor that no other refills are due, in the near future, with this provider at this time: Yes The last office visit in the department: 06/10/24 Does the patient have a future office visit with this provider/department: Yes 07/08/24 with pcp Requested Prescriptions Pending Prescriptions Disp Refills spironolactone (ALDACTONE) 50 mg tablet 60 tablet 2 Sig: Take 2 tablets by mouth once daily. Azucena Zarate LPN June 29, 2024 11:27 AM [facility]10-[facility]24 [place]10-03-2024 History of Present illness Narrative* Beata Boone - 06/18/2024 1:16 PM EDT Barbara Meneses 1955 06/18/2024 Hematologic problem(s): 1) WAQAR. 2) Thrombocytopenia. 3) Splenomegaly likely from portal hypertension. Has esophageal varices. HPI: The patient is a 68-year-old female with a past medical history significant for frequent headaches, cervical spine degenerative disease with radiculopathy, hypertension, obstructive sleep apnea,elevated LFTs, diverticulitis, internal hemorrhoids, rectal bleeding, irritable bowel syndrome, type 2 diabetes, hypothyroidism, dyslipidemia, right shoulder subacromial bursitis, generalized anxietydisorder, major depressive disorder with single episode in remission, history of nephrectomy, panicattacks, fatigue and vitamin D deficiency. Started having rectal bleeding about 6 months prior to initial consultation here. Blood every time wipes after BM. Occasional blood in toilet. Formed to loose stools. EGD by Dr. Ben Garcia 02/22/2023. Patient was found to have LA grade a (1 or more mucosal breaks less than 5 mm, not extending between tops of 2 mucosal folds) esophagitis with no bleeding observed 35 cm from the incisors. A mild Schatzki ring was found at the GE junction. 1 column of nonbleeding grade 2 varices were found in the lower third esophagus 33 cm from the incisors. No stigmata of recent bleeding were evident and no red batsheva signs were present. There was diffuse moderately erythematous mucosa without bleeding in the greater curvature of the stomach. Biopsies were obtained. The examined duodenum was normal. Biopsies were obtained. There was a medium size hiatal hernia. Middle thirdesophagus was normal biopsies were obtained. Colonoscopy performed same day revealed nonthrombosed external hemorrhoids, nonthrombosed internal hemorrhoids and internal hemorrhoids that prolapse with straining but required manual replacement into the anal canal on digital rectal exam. Diverticulosis in the sigmoid and descending colon. One 5 mm polyp in the proximal sigmoid colon that was removed with cold biopsy. Inflamed mucosa in the proximal rectum biopsied. Pathology: A. Duodenum, biopsy: A fragment of duodenal mucosa, no pathologic diagnosis. B. Antrum, biopsy: Mild gastritis. See microscopic description and comment. C. Distal esophagus, biopsy: Fragments of gastroesophageal mucosa with moderate chronic inflammation. Intestinal metaplasia (goblet cell metaplasia) not identified. See comment. D. Greater curvature, biopsy: Minimal gastritis. See microscopic description. E. Mid esophagus, biopsy: A fragment of gastroesophageal mucosa with chronic inflammation. Intestinal metaplasia (goblet cell metaplasia) not identified. See comment. F. Colon, random biopsy: Fragments of colonic mucosa, no pathologic diagnosis. G. Proximal sigmoid polyp, biopsy: Hyperplastic polyp. H. Rectal inflammation, biopsy: A fragment of colonic mucosa with focal ulceration and acute inflammation. GERD--omeprazole, a long, long time. On oral iron 4-6 months. Tolerates well. 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 No children. Two miscarriages. Used to have menorrhagia. Diagnosed with endometriosis and had hysterectomy at about age 29. Previous right nephrectomy. Congenital atrophy. Previous ultrasound liver and spleen demonstrated the liver had a coarse echotexture with increasedechogenicity and a smooth surface contour with no lesions. Splenomegaly with spleen measuring 14.2 cm. There was a splenic calcification measuring 9 x 6 x 9 mm. No other focal lesion. States she was diagnosed with celiac, was told to start gluten free diet about a year ago. Presents for ongoing hematologic management. Interim history: Ms. Meneses presents today for follow up of WAQAR and to review labs. Remains on fluid restriction, states not as strict but paying attention to it. BP better control. Denies dizziness, lightheadedness. No edema. Occasional non drenching night sweats. New abd mass on recent imaging. Palpable LRQ, irregular, matted, tender at times. Pt believed this to be hernia. Referred to Dr. Hernandez for possible lap. Continues to have chronic GI blood loss, overall stable. Encouraged her to keep follow up with GI. Still having rectal bleeding--mostly on toilet paper after wipes. Follows with rectal surgery, not a candidate for surgery at this time. Unable to have hemorrhoids banded. Her appetite is good, lost weight when she wasn't feeling well. Is going to meet with RD. No N/V. Frequent Denies current SOB, CP, palpitations. ALDRICH. Notes unintentional weight loss PAST MEDICAL HISTORY Diagnosis Date Albuminuria 08/2015 Depression Diverticulitis Esophageal varices (HCC) Headaches Hemorrhoid History of nephrectomy Hypertension Hypothyroidism IBS (irritable bowel syndrome) Iron deficiency anemia secondary to inadequate dietary iron intake 05/07/2023 Iron malabsorption 05/07/2023 JENN (obstructive sleep apnea) Osteopenia 08/2023 Portal hypertension (HCC) Rectal bleed SOB (shortness of breath) Splenomegaly Type 2 diabetes, uncontrolled, with renal manifestation PAST SURGICAL HISTORY Procedure Laterality Date ASPIRATION BIOPSY, THYROID GLAND Right 07/15/2017 Dr. Larkin COLONOSCOPY SCREENING 02/22/2023 EGD W/O [facility] SPEC VARICIES INJ 02/22/2023 HYSTERECTOMY HX 1994 Total PAST SURGICAL HISTORY OF 1974 right kidney removed THYROIDECTOMY SUBTOTAL/PARTIAL 1991 ALLERGIES Allergen Reactions Mold Unknown Adhesive Tape (Yamel* Rash Januvia [Sitaglipti* Intolerance GI upset, aching of muscles, headaches Latex Itching Current Outpatient Medications Medication Sig spironolactone (ALDACTONE) 50 mg tablet Take 2 tablets by mouth once daily. zolpidem (AMBIEN) 10 mg Take 1 tablet by mouth at bedtime as needed (insomnia) for up to 30 days. propranolol (INDERAL) 10 mg tablet Take 1 tablet by mouth three times a day. buPROPion (WELLBUTRIN) 100 mg tablet Take 2 tablets to total 200 mg in the morning and 1 tablet in the evening, total of 300 mg a day furosemide (LASIX) 20 mg tablet Take 1 tablet by mouth once daily. albuterol HFA (VENTOLIN HFA) 90 mcg/actuation inhaler Inhale 2 Puffs as instructed every 4 hours asneeded for wheezing/shortness of breath. potassium chloride (K-TAB) 10 mEq tablet Take 10 mEq by mouth once daily. SYNTHROID 125 mcg tablet Take 1 tablet by mouth once daily. Take on empty stomach. For Thyroid dulaglutide (TRULICITY) 0.75 mg/0.5 mL pen injector Inject 0.75 mg subcutaneously one time a week. Dx: Type 2 diabetes uncontrolled, Inject dose once per week. Discard Pen After DULoxetine (CYMBALTA) 60 mg capsule TAKE 1 CAPSULE DAILY (Patient taking differently: Take 60 mg bymouth once daily. TAKE 1 CAPSULE DAILY) ergocalciferol 50,000 unit capsule (VITAMIN D2, DRISDOL) Take 1 capsule by mouth one time a week. Blood-Glucose Meter,Continuous (FREESTYLE THEE 3 READER) [facility] [place] Use to check blood sugar at least four (4) times daily. Blood-Glucose Sensor (FREESTYLE THEE 3 SENSOR) [place] Apply new sensor every fourteen (14) days to upper arm. Lancets lancets Test blood sugar(s) 1 times daily. Dx: Type 2 DM - Uncontrolled E11.65 Insulin: No blood sugar diagnostic (BLOOD GLUCOSE TEST) test strip Test blood sugar(s) 1 times daily. Dx: Type 2 DM - Uncontrolled E11.65 Insulin: No No current facility-administered medications for this visit. Social History Tobacco Use Smoking status: Former Current packs/day: 0.00 Average packs/day: 0.3 packs/day for 5.0 years (1.3 ttl pk-yrs) Types: Cigarettes Start date: 1978 Quit date: 1983 Years since quittin.7 Smokeless tobacco: Never Vaping Use Vaping status: Never Used Substance Use Topics Alcohol use: Yes Comment: Occasionally Drug use: No Family History Problem Relation Age of Onset Osteoporosis Mother other (Hepatitis C) Mother Colon Cancer Father other (myasthenia gravis) Father Aneurysm Father Osteoporosis Sister No Known Problems Brother No Known Problems Brother Aneurysm Brother Cancer Brother bladder other (atrial fib) Brother COPD Brother No Known Problems Maternal Grandmother Stroke Maternal Grandfather ROS: Constitutional: No fever. No drenching night sweats. Normal appetite. No unexplained weight loss. All systems reviewed on 06/18/2024 with pertinent positives and negatives as outlined in the interval history. PHYSICAL EXAM: Vitals: Blood pressure 100/58, pulse 77, temperature 36.4 C (97.5 F), temperature source Temporal, weight 86 kg (189 lb 8 oz), SpO2 98%. Well-appearing and in no acute distress. EYES: Sclerae are anicteric bilaterally. LYMPHATIC: There is no palpable cervical or supraclavicular adenopathy. RESPIRATORY: Inspiratory breath sounds are of normal intensity in all leong. No rales, wheezes or rhonchi. CARDIOVASCULAR: Rhythm is regular. ABDOMEN: The abdomen is nondistended. No palpable splenomegaly or hepatomegaly. Palpable irregular mass LRQ, somewhat superficial. Extremities: No swelling or edema. SKIN: No jaundice. I have performed the physical exam today (06/18/2024) and have edited the note to correlate with current findings. Labs: Lab Results Component Value Date WBC 2.70 (L) 06/18/2024 HB 10.4 (L) 06/18/2024 MCV 90.6 06/18/2024 PLT 86 (L) 06/18/2024 Lab Results Component Value Date NA 139 04/16/2024 K 3.6 (L) 04/16/2024 CO2 23 04/16/2024 BUN 20 04/16/2024 CREAT 0.97 (H) 04/16/2024 TBILI 0.5 04/16/2024 TPROT 6.0 (L) 04/16/2024 ALB 3.9 04/16/2024 ALKPHOS 112 04/16/2024 ALT 18 04/16/2024 AST 31 04/16/2024 PATHOLOGY: Bone marrow biopsy 10/03/2023: FINAL DIAGNOSIS A-C. Bone marrow, left posterior iliac crest, aspirate, biopsy, clot and peripheral smear: - Normocellular marrow with maturing trilineage hematopoiesis, (see comment and microscopic description). Diagnosis Comment The bone marrow is roughly normocellular for age (25-30% overall cellularity). There is no overt morphologic dysplasia and blasts are not increased. Flow cytometry (see separate report) revealed no evidence of involvement by a lymphoproliferative disorder or abnormal blast population. Cytogenetics (see separate report) demonstrated a normal female karyotype. The patient has a history of intermittent anemia and thrombocytopenia. No stainable storage iron was identified by iron stain of the biopsy and aspirate specimens; though iron studies from 07/2023 were within normal limits, studies had previously demonstrated iron deficiency as recently as 02/2023. The patient is also reported to have splenomegaly (U/S from 02/2023), which likely contributes in part to her thrombocytopenia. Myeloid NGS studies have been ordered and will be reported separately when available. ASSESSMENT/PLAN: (D50.9) Iron deficiency anemia, unspecified iron deficiency anemia type (primary encounter diagnosis) (R16.1) Splenomegaly (D69.6) Thrombocytopenia (HCC) (I85.10) Secondary esophageal varices without bleeding (HCC) Assessment: -WAQAR secondary to chronic blood loss (hemorrhoids) and malabsorption due to chronic gastritis and PPI use. - Unable to have hemorrhoid banding. -Thrombocytopenia. Stable. Not on anticoagulation or antiplatelet therapy. 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 -Reviewed the results of the bone marrow biopsy in detail--absent iron stores. No morphologic evidence of MDS. Flow cytometry indicated no evidence of plasma cell disorder or lymphoma. -Was tolerating oral iron well, however states she stopped taking due to GI upset and constipation.Discussed the use of iron sucrose. Reviewed schedule of administration and potential side effects. She agreed to proceed. Plan to repeat due to continued bleeding -continued rectal bleeding. -reviewed CBC in detail with patient today, stable iron studies pending. Discussed in reviewing CBC - Dr. Dion HILARIO Plan: -Follow up with PCP -plan for possible repeat IV iron pending iron studies - discussed will likely need to continue to replenish iron stores as she continues to experience chonic blood loss - continue to follow with GI, hepatology, pulm, pcp - follow up with Dr. Hernandez RT 12 weeks with labs. Advised to call with any questions or concerns. Beata Boone APRN.ASSOCIATE SOFTWARE APPLICATION ENGINEER I spent a total of 35 minutes on the date of the service which included preparing to see the patient, [id number] patient care, completing clinical documentation, counseling and educating the patient/family/caregiver, and communicating results to the patient/family/caregiver. Portions of this note including HPI, ROS, impression/plan may have been copied forward as to provide important historical information essential in contributing to medical decision making. Documentation has been reviewed and edited as necessary to support clinical decision making for today's visit and to reflect my own independent evaluation of this patient. [facility] Telephone encounter Note * Telephone Encounter - Moraima Sullivan MA - 06/12/2024 3:10 PM EDT Pt informed, verbalized understanding Appt scheduled. Moraima Sullivan MA [facility] Miscellaneous Notes* Telephone Encounter - Moraima Sullivan MA - 06/12/2024 3:10 PM EDT Pt informed, verbalized understanding Appt scheduled. Moraima Sullivan MA * Telephone Encounter - Nury Alexander APRN.CNP - 06/12/2024 3:05 PM EDT Let's increase her spironolactone to 100mg daily, then I would like to see her in the office on Saturday or Saturday of next week. If possible, I'd like her to have a repeat chest xray prior to our appointment. The following approved medication requests have been transmitted electronically. Requested Prescriptions Signed Prescriptions Disp Refills spironolactone (ALDACTONE) 50 mg tablet 60 tablet 2 Sig: Take 2 tablets by mouth once daily. Authorizing Provider: JUAN LOCKE Ordering User: NURY ALEXANDER APRN.ASSOCIATE SOFTWARE APPLICATION ENGINEER * Telephone Encounter - Lynnette Masters RN - 06/12/2024 2:53 PM EDT Patient returns call and results and provider message reviewed. Patient reports overall she feels fairly well. She reports that her breathing is tolerable during the day and worsens at night when she lays down. Patient would like to try an increase in diuretic as each time she goes to the ER for draining it costs $95. Patient asking if there is any other way to have lung drained besides in the ER setting. Patient reports that if her SOB were to get any worse then she would proceed to the ER. Lynnette Masters RN * Telephone Encounter - Moraima Sullivan MA - 06/12/2024 2:28 PM EDT Left message to return call Moraima Sullivan MA * Telephone Encounter - Nury Alexander APRN.CNP - 06/12/2024 2:19 PM EDT Please let her know that the xray does show some fluid in her left lung. How is she feeling and howis she breathing? We can consider increasing her diuretic, but may need to have her go into the ER again to have it drained. Nury Alexander APRN.CNP * Telephone Encounter - Lynnette Masters RN - 06/11/2024 4:34 PM EDT Patient calls to check on results of CXR and if any medication changes are needed. Notified patient that once provider reviewed results, patient would be notified of any changes. Lynnette Masters RN documented [facility] Telephone encounter Note * Telephone Encounter - Nury Alexander APRN.CNP - 06/12/2024 3:05 PM EDT Let's increase her spironolactone to 100mg daily, then I would like to see her in the office on Saturday or Saturday of next week. If possible, I'd like her to have a repeat chest xray prior to our appointment. The following approved medication requests have been transmitted electronically. Requested Prescriptions Signed Prescriptions Disp Refills spironolactone (ALDACTONE) 50 mg tablet 60 tablet 2 Sig: Take 2 tablets by mouth once daily. Authorizing Provider: JUAN LOCKE Ordering User: NURY ALEXANDER APRN.CNP [facility] Telephone encounter Note* Telephone Encounter - Lynnette Masters RN - 06/12/2024 2:53 PM EDT Patient returns call and results and provider message reviewed. Patient reports overall she feels fairly well. She reports that her breathing is tolerable during the day and worsens at night when she lays down. Patient would like to try an increase in diuretic as each time she goes to the ER for draining it costs $95. Patient asking if there is any other way to have lung drained besides in the ER setting. Patient reports that if her SOB were to get any worse then she would proceed to the ER. Lynnette Masters RN [facility] Telephone encounter Note* Telephone Encounter - Moraima Sullivan MA - 06/12/2024 2:28 PM EDT Left message to return call Moraima Sullivan MA [facility] Telephone encounter Note* Telephone Encounter - Nury Alexander APRN.CNP - 06/12/2024 2:19 PM EDT Please let her know that the xray does show some fluid in her left lung. How is she feeling and howis she breathing? We can consider increasing her diuretic, but may need to have her go into the ER again to have it drained. Nury Alexander APRN.JUANA [facility] Telephone encounter Note* Telephone Encounter - Lynnette Masters RN - 06/11/2024 4:34 PM EDT Patient calls to check on results of CXR and if any medication changes are needed. Notified patient that once provider reviewed results, patient would be notified of any changes. Lynnette Masters RN [facility] History of Present illness Narrative* Pauline Garcia RT(R) - 06/10/2024 1:00 PM EDT Radiology Service Progress Note PATIENT NAME: Barbara Meneses DATE OF SERVICE: June 10, 2024 TIME: 1:00 PM PATIENT IDENTITY VERIFICATION COMPLETED USING TWO (2) IDENTIFIERS: Name and Date of confirmedby patient verbally. FALL SCREENING: Has the patient had 2 falls in the last year or 1 fall with injury or currently using an Ambulatory Assistive Device (Walker, Cane, Wheelchair, Crutches, etc.)? No PATIENT GENDER DATA: Female. status: : No status: NO. PATIENT RELEVANT IMPLANT DATA REVIEWED: Yes PATIENT PRESENTS WITH AN IMPLANTABLE OR ATTACHED GOLD BUYER: No RADIOLOGY DEPARTMENT: General X-ray: Exam(s) Completed: Chest X-Ray PERIPHERAL IV DATA: Not applicable SIGNED BY: RT Flo(R) June 10, 2024 1:00 PM documented in this encounterMem[facility]09-25-2024 [place] Instructions* Patient Instructions* Nury Alexander APRN.CNP - 06/10/2024 12:29 PM EDT Increasing your Ambien to 10mg at bedtime. Ok to take two of you 5mg pills and I'm sending in a newprescription for the 10mg pills. documented in this encounterMem[facility]09-25-2024 [place] History of Present illness Narrative* Nury Alexander APRN.CNP - 06/10/2024 12:11 PM EDT Chief Complaint Patient presents with: Medication Follow-up HPI Barbara Meneses is a 69 year old female who presents here today for Above Complaints.. Per visit with myself on 05/26/2024: HPI Barbara Meneses is a 69 year old female who presents here today for Above Complaints.. BP-hasn't been checking at home-needs to get new batteries. Denies lightheadedness/dizziness, CP, SOB, palpitations, pedal or other edema. General Appearance: Well appearing, alert, in no acute distress, well-hydrated, well nourished.. Lungs: Lungs clear to auscultation. No wheezing, rhonchi, rales.. Heart: RRR without murmur, gallop, or rubs. No ectopy. Abdomen: Normal abdominal exam, Abdomen soft, non-tender. Bowel sounds normal. No masses, organomegaly. Extremities: No deformities, edema, skin discoloration, clubbing or cyanosis. Good capillary refill. . Psychiatric: pleasant, cooperative. ASSESSMENT/PLAN: 1. Intra-abdominal and pelvic swelling, mass and lump, unspecified site - ICD9: 789.30, ICD10: R19.00 (primary diagnosis) Is waiting for call to schedule with surgeon at [facility]. - HYDROCODONE 7.5 MG-ACETAMINOPHEN 325 MG TABLET 2. Situational insomnia - ICD9: 307.41, ICD10: F51.09 3. Situational depression - ICD9: 309.0, ICD10: F43.21 - BUPROPION HCL 100 MG TABLET 4. Right lower quadrant abdominal pain - ICD9: 789.03, ICD10: R10.31 - HYDROCODONE 7.5 MG-ACETAMINOPHEN 325 MG TABLET 5. Hypotension, unspecified hypotension type - ICD9: 458.9, ICD10: I95.9 Cut furosemide from 40mg to 20mg daily. F/u again in 2 weeks. - FUROSEMIDE 20 MG TABLET 6. Portal venous hypertension (HCC) - ICD9: 572.3, ICD10: K76.6 5. Hypotension, unspecified hypotension type - ICD9: 458.9, ICD10: I95.9 Cut furosemide from 40mg to 20mg daily. F/u again in 2 weeks. - FUROSEMIDE 20 MG TABLET Nury Alexander APRN.ASSOCIATE SOFTWARE APPLICATION ENGINEER Currently: Seems like she's building up some fluid in her lungs, chest again. Worsening over the past week, worse at nighttime. Feels it moreso in her left side she thinks. Insomnia-Ambien is helping somewhat at nighttime, but not great. BP-hasn't been checking at home-needs to get new batteries. Denies lightheadedness/dizziness, CP, SOB, palpitations, pedal or other edema. Past medical history, appointments, medications, allergies reviewed. 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 Larkin COLONOSCOPY SCREENING 02/22/2023 EGD W/O [facility] SPEC VARICIES INJ 02/22/2023 HYSTERECTOMY HX 1993 Total PAST SURGICAL HISTORY OF 1974 right kidney removed THYROIDECTOMY SUBTOTAL/PARTIAL 1991 Family History FAMILY HISTORY Problem Relation Age of Onset Osteoporosis Mother other (Hepatitis C) Mother Colon Cancer Father other (myasthenia gravis) Father Aneurysm Father Osteoporosis Sister No Known Problems Brother No Known Problems Brother Aneurysm Brother Cancer Brother bladder other (atrial fib) Brother COPD Brother No Known Problems Maternal Grandmother Stroke Maternal Grandfather Patient Allergies ALLERGIES Allergen Reactions Mold Unknown Adhesive Tape (Yamel* Rash Januvia [Sitaglipti* Intolerance GI upset, aching of muscles, headaches Latex Itching Current Medications Current Outpatient Medications on File Prior to Visit Medication Sig propranolol (INDERAL) 10 mg tablet Take 1 tablet by mouth three times a day. buPROPion (WELLBUTRIN) 100 mg tablet Take 2 tablets to total 200 mg in the morning and 1 tablet in the evening, total of 300 mg a day furosemide (LASIX) 20 mg tablet Take 1 tablet by mouth once daily. albuterol HFA (VENTOLIN HFA) 90 mcg/actuation inhaler Inhale 2 Puffs as instructed every 4 hours asneeded for wheezing/shortness of breath. spironolactone (ALDACTONE) 50 mg tablet Take 1.5 tablets by mouth once daily. Blood-Glucose Meter,Continuous (FREESTYLE THEE 3 READER) [facility] [place] Use to check blood sugar at least four (4) times daily. Blood-Glucose Sensor (FREESTYLE THEE 3 SENSOR) [place] Apply new sensor every fourteen (14) days to upper arm. furosemide (LASIX) 40 mg tablet Take 1 tablet by mouth once daily. potassium chloride (K-TAB) 10 mEq tablet Take 10 mEq by mouth once daily. SYNTHROID 125 mcg tablet Take 1 tablet by mouth once daily. Take on empty stomach. For Thyroid dulaglutide (TRULICITY) 0.75 mg/0.5 mL pen injector Inject 0.75 mg subcutaneously one time a week. Dx: Type 2 diabetes uncontrolled, Inject dose once per week. Discard Pen After DULoxetine (CYMBALTA) 60 mg capsule TAKE 1 CAPSULE DAILY (Patient taking differently: Take 60 mg bymouth once daily. TAKE 1 CAPSULE DAILY) ergocalciferol 50,000 unit capsule (VITAMIN D2, DRISDOL) Take 1 capsule by mouth one time a week. calcium carbonate/vitamin D3 (CALCIUM 500 + D, D3, ORAL) Take 2 tablets by mouth once daily. Lancets lancets Test blood sugar(s) 1 times daily. Dx: Type 2 DM - Uncontrolled E11.65 Insulin: No blood sugar diagnostic (BLOOD GLUCOSE TEST) test strip Test blood sugar(s) 1 times daily. Dx: Type 2 DM - Uncontrolled E11.65 Insulin: No Clobetasol Propionate (TEMOVATE) 0.05 % external solution Apply 1 application to affected area oncedaily as needed (scalp rash). zolpidem (AMBIEN) 5 mg tablet Take 1 tablet by mouth at bedtime as needed for sedation for up to 30days. Magnesium Oxide-Mg Amino Acid Chelate (MAGNESIUM) 300 mg cap Take 300 mg by mouth once daily. SUMAtriptan (IMITREX) 25 mg tablet TAKE 1 TABLET NEEDED FORMIGRAINE HEADACHE (SEE ADMINISTRATIONINSTRUCTIONS) omeprazole (PRILOSEC) 20 mg capsule Take 20 mg by mouth once daily. cyanocobalamin (VITAMIN B-12) 1,000 mcg tab Take 1,000 mcg by mouth once daily. No current facility-administered medications on file prior to visit. Social History Social History Tobacco Use Smoking status: Former Current packs/day: 0.00 Average packs/day: 0.3 packs/day for 5.0 years (1.3 ttl pk-yrs) Types: Cigarettes Start date: 1978 Quit date: 1983 Years since quittin.7 Smokeless tobacco: Never Vaping Use Vaping status: Never Used Substance Use Topics Alcohol use: Yes Comment: Occasionally Drug use: No Review of Symptoms REVIEW OF SYSTEMS See HPI, otherwise negative EXAM: BP 112/64 (BP Site: Left Arm, BP Position: Sitting, BP Cuff Size: Regular Adult) Pulse 80 Resp 16 Wt 86.5 kg (190 lb 11.2 oz) SpO2 99% BMI 32.56 kg/m General Appearance: Well appearing, alert, in no acute distress, well-hydrated, well nourished.. Lungs: decreased air movement in LLL. Heart: RRR without murmur, gallop, or rubs. No ectopy. Psychiatric: pleasant, cooperative, mildly flat affect. Health Maintenance List Bone Density Screening Never done Influenza Vaccine(1) due on 05/17/2024 Mammogram Screening due on 08/21/2024 Shingrix Vaccine(1 of 2) due on 03/31/2025 Pneumococcal Vaccine: 65+(1 of 2 - PCV) due on 03/31/2025 Covid-19 Vaccine( season) due on 05/26/2025 HbA1C due on 10/01/2024 LDL Cholesterol due on 12/10/2024 Diabetic Foot Exam due on 12/29/2024 Dilated Retinal Exam due on 01/21/2025 Urine Albumin:Creatinine Ratio due on 04/16/2025 Annual PCP Team Chronic Disease Visit due on 05/26/2025 BP Controlled (<130/80) due on 05/26/2025 Colorectal Cancer Screening due on 06/08/2025 DTaP,Tdap,Td Vaccine(2 - Td or Tdap) due on 06/20/2028 RSV Vaccine(1 - 1-dose 75+ series) due on 2029 Hepatitis C Screening Completed Advance Directive Discussion Discontinued Data reviewed Previous records, office notes, PDMP report PDMP website checked and validated. All prescriptions have been APPROPRIATELY filled. No suspiciousactivity was identified. 06/10/2024 by Nury Alexander CNP. ASSESSMENT/PLAN: 1. Portal venous hypertension (HCC) - ICD9: 572.3, ICD10: K76.6 (primary diagnosis) Concern for pleural effusion, additional fluid buildup in her lungs. Based on chest xray results may need to consider making change to diuretics such as increasing spironolactone and decreasing propanolol-will discuss any changes necessary with PCP Dr. Locke. - XR CHEST 2V FRONTAL/LAT 2. Pleural effusion - ICD9: 511.9, ICD10: J90 Concern for pleural effusion, additional fluid buildup in her lungs. Based on chest xray results may need to consider making change to diuretics such as increasing spironolactone and decreasing propanolol-will discuss any changes necessary with PCP Dr. Locke. - XR CHEST 2V FRONTAL/LAT 3. Dry cough - ICD9: 786.2, ICD10: R05.8 Concern for pleural effusion, additional fluid buildup in her lungs. Based on chest xray results may need to consider making change to diuretics such as increasing spironolactone and decreasing propanolol-will discuss any changes necessary with PCP Dr. Locke. - XR CHEST 2V FRONTAL/LAT 4. Hypotension, unspecified hypotension type - ICD9: 458.9, ICD10: I95.9 Currently well-controlled, asymptomatic. Based on chest xray results may need to consider making change to diuretics such as increasing spironolactone and decreasing propanolol-will discuss any changes necessary with PCP Dr. Locke. 5. SOB (shortness of breath) - ICD9: 786.05, ICD10: R06.02 Concern for pleural effusion, additional fluid buildup in her lungs. Based on chest xray results may need to consider making change to diuretics such as increasing spironolactone and decreasing propanolol-will discuss any changes necessary with PCP Dr. Locke. - XR CHEST 2V FRONTAL/LAT 6. Situational insomnia - ICD9: 307.41, ICD10: F51.09 Increase Ambien from 5mg to 10mg nightly prn. - ZOLPIDEM 10 MG TABLET - XR CHEST 2V FRONTAL/LAT Nury Alexander APRN.CNP [facility] Tele[facility] encounter Note * Telephone Encounter - Connor Vogt - 06/02/2024 8:51 AM EDT LM For patient Referral for Right lower quadrant abdominal pain, Lump/Mass [facility] Miscellaneous Notes* Telephone Encounter - Connor Vogt - 06/02/2024 8:51 AM EDT LM For patient Referral for Right lower quadrant abdominal pain, Lump/Mass Dr. Oh Vogt [facility] History of Present illness Narrative* Alberto Larkin MD - 05/27/2024 8:56 AM EDT HISTORY AND PHYSICAL Barbara Meneses 1955 REFERRING PHYSICIAN: Nury Alexander APRN* CHIEF COMPLAINT: Consult (Abdmonen pain) HPI: The patient is a 69 year old female with a complaint of right lower quadrant abdominal pain. Worse with standing or walking. Patient has been having night sweats as well as about a 50 pound weight loss unexplained. Recently admitted to [facility] for lightheadedness. CT scan of the abdomen IMPRESSION: 1. Mild ill-defined soft tissue nodularity within the right posterior abdomen/paracolic gutter as well as ill-defined soft tissue nodularity surrounding the inferior mesenteric artery. Possibility of carcinomatosis is raised. 2. Cirrhotic liver morphology. 3. Borderline splenomegaly. 4. Stable pulmonary nodules in the visualized lung bases. 5. Additional incidental findings as described. The patient is being seen by me today at the request of Dr. Alexander for my opinion and advice regarding Intra-abdominal and pelvic swelling, mass and lump, unspecified site Right lower quadrant abdominal pain. PAST MEDICAL HISTORY 08/2015: Albuminuria No date: Depression No date: Diverticulitis No date: Esophageal varices (HCC) No date: Headaches No date: Hemorrhoid No date: History of nephrectomy No date: Hypertension No date: Hypothyroidism No date: IBS (irritable bowel syndrome) 05/07/2023: Iron deficiency anemia secondary to inadequate dietary iron intake 05/07/2023: Iron malabsorption No date: JENN (obstructive sleep apnea) 08/2023: Osteopenia No date: Rectal bleed No date: SOB (shortness of breath) No date: Splenomegaly No date: Type 2 diabetes, uncontrolled, with renal manifestation PAST SURGICAL HISTORY 07/15/2017: ASPIRATION BIOPSY, THYROID GLAND; Right Comment: Dr. Larkin 02/22/2023: COLONOSCOPY SCREENING 02/22/2023: EGD W/O [facility] SPEC VARICIES INJ 1993: HYSTERECTOMY HX Comment: Total 1974: PAST SURGICAL HISTORY OF Comment: right kidney removed 1991: THYROIDECTOMY SUBTOTAL/PARTIAL Current Outpatient Medications Medication Sig albuterol HFA (VENTOLIN HFA) 90 mcg/actuation inhaler Inhale 2 Puffs as instructed every 4 hours asneeded for wheezing/shortness of breath. spironolactone (ALDACTONE) 50 mg tablet Take 1.5 tablets by mouth once daily. Blood-Glucose Meter,Continuous (FREESTYLE THEE 3 READER) misc Use to check blood sugar at least four (4) times daily. Blood-Glucose Sensor (FREESTYLE THEE 3 SENSOR) louis Apply new sensor every fourteen (14) days to upper arm. furosemide (LASIX) 40 mg tablet Take 1 tablet by mouth once daily. potassium chloride (K-TAB) 10 mEq tablet Take 10 mEq by mouth once daily. SYNTHROID 125 mcg tablet Take 1 tablet by mouth once daily. Take on empty stomach. For Thyroid dulaglutide (TRULICITY) 0.75 mg/0.5 mL pen injector Inject 0.75 mg subcutaneously one time a week. Dx: Type 2 diabetes uncontrolled, Inject dose once per week. Discard Pen After ergocalciferol 50,000 unit capsule (VITAMIN D2, DRISDOL) Take 1 capsule by mouth one time a week. calcium carbonate/vitamin D3 (CALCIUM 500 + D, D3, ORAL) Take 2 tablets by mouth once daily. Lancets lancets Test blood sugar(s) 1 times daily. Dx: Type 2 DM - Uncontrolled E11.65 Insulin: No blood sugar diagnostic (BLOOD GLUCOSE TEST) test strip Test blood sugar(s) 1 times daily. Dx: Type 2 DM - Uncontrolled E11.65 Insulin: No Clobetasol Propionate (TEMOVATE) 0.05 % external solution Apply 1 application to affected area oncedaily as needed (scalp rash). zolpidem (AMBIEN) 5 mg tablet Take 1 tablet by mouth at bedtime as needed for sedation for up to 30days. Magnesium Oxide-Mg Amino Acid Chelate (MAGNESIUM) 300 mg cap Take 300 mg by mouth once daily. SUMAtriptan (IMITREX) 25 mg tablet TAKE 1 TABLET NEEDED FORMIGRAINE HEADACHE (SEE ADMINISTRATIONINSTRUCTIONS) omeprazole (PRILOSEC) 20 mg capsule Take 20 mg by mouth once daily. cyanocobalamin (VITAMIN B-12) 1,000 mcg tab Take 1,000 mcg by mouth once daily. propranolol (INDERAL) 10 mg tablet Take 1 tablet by mouth three times a day. buPROPion (WELLBUTRIN) 100 mg tablet Take 2 tablets to total 200 mg in the morning and 1 tablet in the evening, total of 300 mg a day HYDROcodone-Acetaminophen (NORCO) 7.5-325 mg per tablet Take 1 tablet by mouth every 8 hours as needed for pain for up to 7 days. furosemide (LASIX) 20 mg tablet Take 1 tablet by mouth once daily. DULoxetine (CYMBALTA) 60 mg capsule TAKE 1 CAPSULE DAILY (Patient taking differently: Take 60 mg bymouth once daily. TAKE 1 CAPSULE DAILY) No current facility-administered medications for this visit. ALLERGIES: Mold, Adhesive Tape (Rosins), Januvia [Sitagliptin], and Latex PERSONAL HISTORY: Social History Tobacco Use Smoking status: Former Current packs/day: 0.00 Average packs/day: 0.3 packs/day for 5.0 years (1.3 ttl pk-yrs) Types: Cigarettes Start date: 1978 Quit date: 1983 Years since quittin.7 Smokeless tobacco: Never Vaping Use Vaping status: Never Used Substance Use Topics Alcohol use: Yes Comment: Occasionally Drug use: No FAMILY HISTORY: FAMILY HISTORY Problem Relation Age of Onset Osteoporosis Mother other (Hepatitis C) Mother Colon Cancer Father other (myasthenia gravis) Father Aneurysm Father Osteoporosis Sister No Known Problems Brother No Known Problems Brother Aneurysm Brother Cancer Brother bladder other (atrial fib) Brother COPD Brother No Known Problems Maternal Grandmother Stroke Maternal Grandfather REVIEW OF SYMPTOMS: The review of systems data was entered by the nurse and reviewed by me Nursing Notes: Mary Ramsay RN 05/25/2024 4:41 PM Signed REVIEW OF SYSTEMS: General: The patient NOTES fatigue, NOTES weight loss, denies weight gain, denies feeling hot, and denies feelings of cold. Eyes: The patient denies glaucoma, denies eye injury/surgery, wears glasses or contacts. Ear/Nose/Throat: The patient NOTES allergies, denies hayfever, denies ear infections, and denies bloody noses. Cardiovascular: The patient denies chest pain, denies heart disease, denies high blood pressure,denies cardiac stent, denies prior heart attack, denies irregular heart beat, denies high cholesterol, denies poor circulation, denies heart failure, other cardiac issues, denies claudication, denies cold feet, denies peripheral arterial stent. Respiratory: The patient denies tuberculosis, denies pneumonia, denies frequent cough, denies pulmonary embolism, denies shortness of breath, and denies coughing up blood. Gastrointestinal: The patient denies difficulty swallowing, NOTES acid reflux, denies ulcers, denies vomiting, denies jaundice/hepatitis, denies gallbladder problems, denies black or tarry stools, NOTES hemorrhoids, NOTES bleeding from rectum, NOTES diverticulitis, denies constipation, denies diarrhea, denies loss of stool control, and denies hernias. Kidney/Bladder: The patient denies kidney stones, denies urine infections, and denies bloody urine. Skin: The patient denies a history of skin cancer, denies bleeding/changing moles, and denies a history of skin rash. Neurologic: The patient denies a history of epilepsy/convulsions, denies headaches, denies head/spinal injuries, and denies stroke/TIA. Psychiatric: The patient denies psychiatric medications, NOTES depression, and denies voices, denies substance abuse. Endocrine: The patient NOTES thyroid disorders, NOTES diabetes, and denies hormonal problems. Hematologic: The patient denies a history of bruising, denies bleeding, and NOTES anemia, denies blood clots. Infections: The patient denies a history of measles and mumps, denies rheumatic fever, and denies sexually transmitted diseases. Musculoskeletal: The patient denies back pain/injury, denies back problems, denies sciatica, deniesknee/foot trouble, denies arthritis, or denies gout. When was patient's last Mammogram screening? 08/2023 Last Colonoscopy: Mary Ramsay RN PHYSICAL EXAMINATION: General: The patient is 69 year old female, well nourished, well hydrated in no acute distress. Thepatient is oriented to time, place, and person. VITALS: Blood pressure 90/60, pulse 83, temperature 36.6 C (97.9 F), height 161 cm (5' 3.4), weight 82.2 kg (181 lb 3.2 oz), SpO2 100%. HEENT: Normal cephalic, ataumatic, pupils are equally round, sclera are anicteric, mucous membranesare moist, oropharynx is clear. Neck has no masses, asymmetry or lymphadenopathy. Thyroid is unremarkable. Respiratory: Clear to auscultation and percussion. Normal respiratory excursion and pattern. Cardiac: Examination is regular rate and rhythm. Abdominal exam: Soft, nontender, with no palpable masses. No hepatosplenomegaly. No palpable hernias. Rectal exam: exam deferred Extremities: no clubbing, cyanosis or edema. No adenopathy. Other: LABORATORY VALUES: As Noted RADIOLOGIC STUDIES: As Noted Assessment IMPRESSION: Intra-abdominal and pelvic swelling, mass and lump, unspecified site Right lower quadrant abdominal pain PLAN: Can refer her up to [facility] [place] to the oncologic surgeon. More likely is going to have to have someform of diagnostic laparoscopy. Diagnoses: (R19.00) Intra-abdominal and pelvic swelling, mass and lump, unspecified site (R10.31) Right lower quadrant abdominal pain My findings have been communicated to Dr. Alexander via shared medical record. This note will be forwarded to Dr. Juan Locke DO. Return to Clinic: The patient is instructed to follow-up with me as needed. Alberto Larkin III, MD documented in this encounterMem[facility]09-10-[facility]24 Instructions* Patient Instructions* Nury Alexander APRN.ASSOCIATE SOFTWARE APPLICATION ENGINEER - 05/26/2024 2:54 PM EDT Screening schedule The following prevention plan is recommended: Bone Density Screening Never done Influenza Vaccine(1) due on 05/17/2024 Mammogram Screening due on 08/21/2024 WHAT YOU CAN DO TO PREVENT FALLS Many falls can be prevented. By making some changes, you can lower your chances of falling. Four things YOU can do to prevent falls for you* and your caregiver 1. Begin a regular exercise program Exercise is one of the most important ways to lower your chances of falling. It makes you stronger and helps you feel better. Exercises that improve balance and coordination (like Lloyd Chi) are the most helpful. Lack of exercise leads to weakness and increases your chances of falling. Ask your doctor or health care provider about the best type of exercise program for you. 2. Have your health care provider review your medicines Have your doctor or pharmacist review all the medicines you take, even [id number] medicines. As you get older, the way medicines work in your body can change. Some medicines, or combinations of medicines, can make you sleepy or dizzy andcan cause you to fall. 3. Have your vision checked Have your eyes checked by an eye doctor at least once a year. You may be wearing the wrong glasses or have a condition like glaucoma or cataracts that limits your vision. Poor vision can increase your chances of falling. 4. Make your home safer About half of all falls happen at home. To make your home safer: Remove things you can trip over (like papers, books, clothes, and shoes) from stairs and places where you walk. Remove small throw rugs or use double-sided tape to keep the rugs from slipping. Keep items you use often in cabinets you can reach easily without using a step stool. Have grab bars put in next to your toilet and in the tub or shower. Use non-slip mats in the bathtub and on shower floors. Improve the lighting in your home. As you get older, you need brighter lights to see well. Hang light-weight curtains or shades to reduce glare. Have handrails and lights put in on all staircases. Wear shoes both inside and outside the house. Avoid going barefoot or wearing slippers. For more information, contact: Centers for Disease Control and Prevention www.cdc.gov/injury * This information may not apply if you have certain medical conditions. documented in this encounterMem[facility]09-10-2024 [place] History of Present illness Narrative* Nury Aleaxnder APRN.ASSOCIATE SOFTWARE APPLICATION ENGINEER - 05/26/2024 12:29 PM EDT Chief Complaint Patient presents with: Medicare Wellness Exam HPI Barbara Meneses is a 69 year old female who presents here today for Above Complaints.. BP-hasn't been checking at home-needs to get new batteries. Denies lightheadedness/dizziness, CP, SOB, palpitations, pedal or other edema. Past medical history, appointments, medications, allergies reviewed. 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 Larkin 02/22/2023: COLONOSCOPY SCREENING 02/22/2023: EGD W/O [facility] SPEC VARICIES INJ 1993: HYSTERECTOMY HX Comment: Total 1974: PAST SURGICAL HISTORY OF Comment: right kidney removed 1991: THYROIDECTOMY SUBTOTAL/PARTIAL Family History FAMILY HISTORY Problem Relation Age of Onset Osteoporosis Mother other (Hepatitis C) Mother Colon Cancer Father other (myasthenia gravis) Father Aneurysm Father Osteoporosis Sister No Known Problems Brother No Known Problems Brother Aneurysm Brother Cancer Brother bladder other (atrial fib) Brother COPD Brother No Known Problems Maternal Grandmother Stroke Maternal Grandfather Patient Allergies ALLERGIES Allergen Reactions Mold Unknown Adhesive Tape (Yamel* Rash Januvia [Sitaglipti* Intolerance GI upset, aching of muscles, headaches Latex Itching Current Medications Current Outpatient Medications on File Prior to Visit Medication Sig albuterol HFA (VENTOLIN HFA) 90 mcg/actuation inhaler Inhale 2 Puffs as instructed every 4 hours asneeded for wheezing/shortness of breath. spironolactone (ALDACTONE) 50 mg tablet Take 1.5 tablets by mouth once daily. Blood-Glucose Meter,Continuous (FREESTYLE THEE 3 READER) [facility] [place] Use to check blood sugar at least four (4) times daily. Blood-Glucose Sensor (FREESTYLE THEE 3 SENSOR) louis Apply new sensor every fourteen (14) days to upper arm. furosemide (LASIX) 40 mg tablet Take 1 tablet by mouth once daily. potassium chloride (K-TAB) 10 mEq tablet Take 10 mEq by mouth once daily. SYNTHROID 125 mcg tablet Take 1 tablet by mouth once daily. Take on empty stomach. For Thyroid dulaglutide (TRULICITY) 0.75 mg/0.5 mL pen injector Inject 0.75 mg subcutaneously one time a week. Dx: Type 2 diabetes uncontrolled, Inject dose once per week. Discard Pen After DULoxetine (CYMBALTA) 60 mg capsule TAKE 1 CAPSULE DAILY (Patient taking differently: Take 60 mg bymouth once daily. TAKE 1 CAPSULE DAILY) ergocalciferol 50,000 unit capsule (VITAMIN D2, DRISDOL) Take 1 capsule by mouth one time a week. calcium carbonate/vitamin D3 (CALCIUM 500 + D, D3, ORAL) Take 2 tablets by mouth once daily. Lancets lancets Test blood sugar(s) 1 times daily. Dx: Type 2 DM - Uncontrolled E11.65 Insulin: No blood sugar diagnostic (BLOOD GLUCOSE TEST) test strip Test blood sugar(s) 1 times daily. Dx: Type 2 DM - Uncontrolled E11.65 Insulin: No Clobetasol Propionate (TEMOVATE) 0.05 % external solution Apply 1 application to affected area oncedaily as needed (scalp rash). zolpidem (AMBIEN) 5 mg tablet Take 1 tablet by mouth at bedtime as needed for sedation for up to 30days. Magnesium Oxide-Mg Amino Acid Chelate (MAGNESIUM) 300 mg cap Take 300 mg by mouth once daily. SUMAtriptan (IMITREX) 25 mg tablet TAKE 1 TABLET NEEDED FORMIGRAINE HEADACHE (SEE ADMINISTRATIONINSTRUCTIONS) omeprazole (PRILOSEC) 20 mg capsule Take 20 mg by mouth once daily. cyanocobalamin (VITAMIN B-12) 1,000 mcg tab Take 1,000 mcg by mouth once daily. No current facility-administered medications on file prior to visit. Social History Social History Tobacco Use Smoking status: Former Current packs/day: 0.00 Average packs/day: 0.3 packs/day for 5.0 years (1.3 ttl pk-yrs) Types: Cigarettes Start date: 1978 Quit date: 1983 Years since quittin.7 Smokeless tobacco: Never Vaping Use Vaping status: Never Used Substance Use Topics Alcohol use: Yes Comment: Occasionally Drug use: No Review of Symptoms REVIEW OF SYSTEMS See HPI, otherwise negative EXAM: BP 102/62 (BP Site: Left Arm, BP Position: Sitting, BP Cuff Size: Regular Adult) Pulse 70 Resp 16 Ht 163 cm (5' 4.17) Wt 83.1 kg (183 lb 3.2 oz) SpO2 100% BMI 31.28 kg/m General Appearance: Well appearing, alert, in no acute distress, well-hydrated, well nourished.. Lungs: Lungs clear to auscultation. No wheezing, rhonchi, rales.. Heart: RRR without murmur, gallop, or rubs. No ectopy. Abdomen: Normal abdominal exam, Abdomen soft, non-tender. Bowel sounds normal. No masses, organomegaly. Extremities: No deformities, edema, skin discoloration, clubbing or cyanosis. Good capillary refill. . Psychiatric: pleasant, cooperative. Health Maintenance List Bone Density Screening Never done Influenza Vaccine(1) due on 05/17/2024 Mammogram Screening due on 08/21/2024 RSV Vaccine(1 - 1-dose 60+ series) due on 03/31/2025 Shingrix Vaccine(1 of 2) due on 03/31/2025 Pneumococcal Vaccine: 65+(1 of 2 - PCV) due on 03/31/2025 Covid-19 Vaccine( - season) due on 05/26/2025 HbA1C due on 10/01/2024 LDL Cholesterol due on 12/10/2024 Diabetic Foot Exam due on 12/29/2024 Dilated Retinal Exam due on 01/21/2025 Urine Albumin:Creatinine Ratio due on 04/16/2025 Annual PCP Team Chronic Disease Visit due on 05/26/2025 BP Controlled (<130/80) due on 05/26/2025 Colorectal Cancer Screening due on 06/08/2025 DTaP,Tdap,Td Vaccine(2 - Td or Tdap) due on 06/20/2028 Hepatitis C Screening Completed Advance Directive Discussion Discontinued Data reviewed Previous records, office notes, PDMP PDMP website checked and validated. All prescriptions have been APPROPRIATELY filled. No suspiciousactivity was identified. 05/26/2024 by Nury Alexander CNP. ASSESSMENT/PLAN: 1. Intra-abdominal and pelvic swelling, mass and lump, unspecified site - ICD9: 789.30, ICD10: R19.00 (primary diagnosis) Is waiting for call to schedule with surgeon at [facility]. - HYDROCODONE 7.5 MG-ACETAMINOPHEN 325 MG TABLET 2. Situational insomnia - ICD9: 307.41, ICD10: F51.09 3. Situational depression - ICD9: 309.0, ICD10: F43.21 - BUPROPION HCL 100 MG TABLET 4. Right lower quadrant abdominal pain - ICD9: 789.03, ICD10: R10.31 - HYDROCODONE 7.5 MG-ACETAMINOPHEN 325 MG TABLET 5. Hypotension, unspecified hypotension type - ICD9: 458.9, ICD10: I95.9 Cut furosemide from 40mg to 20mg daily. F/u again in 2 weeks. - FUROSEMIDE 20 MG TABLET 6. Portal venous hypertension (HCC) - ICD9: 572.3, ICD10: K76.6 5. Hypotension, unspecified hypotension type - ICD9: 458.9, ICD10: I95.9 Cut furosemide from 40mg to 20mg daily. F/u again in 2 weeks. - FUROSEMIDE 20 MG TABLET Nury Alexander APRN.JUANA * Nury Alexander APRN.CNP - 05/26/2024 12:12 PM EDT Images from the original note were not included. Barbara Meneses is a 69 year old female here for a Medicare wellness visit. Medicare Health Risk Assessment General Health Fair Exercise: Minutes/Day 0 min Exercise: Days/Week 0 days Alcohol: Daily Use Never Alcohol: Drinks/Day Patient does not drink Alcohol: 6 or more drinks Never Feel off balance No Concerns: Teeth/Dentures No Concerns: Sexual function No Troubled by feelings Anxious; Stressed; Angry; Irritable Frequency: Eating healthy diet Several days ADLs requiring help None of the above Safety precautions in home/vehicle Yes Smoke, vape, chews tobacco No Difficulty hearing Yes Difficulty seeing No (Follows up with eye doc, last exam January 2024) Current Providers Specialists: I have reviewed specialist-related care of the patient in the medical record. Medical/Family history review Reviewed and updated problem list, medical/surgical/family/social history, medications, and allergies. Opioid use review Opioid Medications (last 90 days) 05/26/2024 00:00 Opioid Medications hydrocodone/acetaminophen 1 tablet q 8 H PRN ORAL Details Outpatient prescription Anxiety/Depression screening PHQ-2 Score: 1 (Lower risk for depression) Recommendation: no further intervention at this time Cognitive screening Mini Cog Score: 2 Cognitive screening reviewed and No further action needed (score 3-5). Functional Observation Was the patient's Timed Up & Go test unsteady or ? 12 seconds? No Advance Care Planning Surrogate decision maker and/or advance care plan documented Sister-Francheska Weaver Measurements BP 102/62 (BP Site: Left Arm, BP Position: Sitting, BP Cuff Size: Regular Adult) Pulse 70 Resp 16 Ht 163 cm (5' 4.17) Wt 83.1 kg (183 lb 3.2 oz) SpO2 100% BMI 31.28 kg/m Vision Screening: Follows with optometry/ophthalmology Assessment/Plan Medicare annual wellness visit, subsequent (Z00.00) - Counseled on healthy diet and regular exercise - Fall avoidance information provided - Personalized prevention plan provided Nury Alexander APRN.CNP [facility] [place] Nurse [place]* Mary Ramsay RN - 05/25/2024 4:30 PM EDT REVIEW OF SYSTEMS: General: The patient NOTES fatigue, NOTES weight loss, denies weight gain, denies feeling hot, and denies feelings of cold. Eyes: The patient denies glaucoma, denies eye injury/surgery, wears glasses or contacts. Ear/Nose/Throat: The patient NOTES allergies, denies hayfever, denies ear infections, and denies bloody noses. Cardiovascular: The patient denies chest pain, denies heart disease, denies high blood pressure,denies cardiac stent, denies prior heart attack, denies irregular heart beat, denies high cholesterol, denies poor circulation, denies heart failure, other cardiac issues, denies claudication, denies cold feet, denies peripheral arterial stent. Respiratory: The patient denies tuberculosis, denies pneumonia, denies frequent cough, denies pulmonary embolism, denies shortness of breath, and denies coughing up blood. Gastrointestinal: The patient denies difficulty swallowing, NOTES acid reflux, denies ulcers, denies vomiting, denies jaundice/hepatitis, denies gallbladder problems, denies black or tarry stools, NOTES hemorrhoids, NOTES bleeding from rectum, NOTES diverticulitis, denies constipation, denies diarrhea, denies loss of stool control, and denies hernias. Kidney/Bladder: The patient denies kidney stones, denies urine infections, and denies bloody urine. Skin: The patient denies a history of skin cancer, denies bleeding/changing moles, and denies a history of skin rash. Neurologic: The patient denies a history of epilepsy/convulsions, denies headaches, denies head/spinal injuries, and denies stroke/TIA. Psychiatric: The patient denies psychiatric medications, NOTES depression, and denies voices, denies substance abuse. Endocrine: The patient NOTES thyroid disorders, NOTES diabetes, and denies hormonal problems. Hematologic: The patient denies a history of bruising, denies bleeding, and NOTES anemia, denies blood clots. Infections: The patient denies a history of measles and mumps, denies rheumatic fever, and denies sexually transmitted diseases. Musculoskeletal: The patient denies back pain/injury, denies back problems, denies sciatica, deniesknee/foot trouble, denies arthritis, or denies gout. When was patient's last Mammogram screening? 08/2023 Last Colonoscopy: [facility] Rams[facility] RN [facility]* Mary Ramsay RN - 05/25/2024 4:30 PM EDT REVIEW OF SYSTEMS: General: The patient NOTES fatigue, NOTES weight loss, denies weight gain, denies feeling hot, and denies feelings of cold. Eyes: The patient denies glaucoma, denies eye injury/surgery, wears glasses or contacts. Ear/Nose/Throat: The patient NOTES allergies, denies hayfever, denies ear infections, and denies bloody noses. Cardiovascular: The patient denies chest pain, denies heart disease, denies high blood pressure,denies cardiac stent, denies prior heart attack, denies irregular heart beat, denies high cholesterol, denies poor circulation, denies heart failure, other cardiac issues, denies claudication, denies cold feet, denies peripheral arterial stent. Respiratory: The patient denies tuberculosis, denies pneumonia, denies frequent cough, denies pulmonary embolism, denies shortness of breath, and denies coughing up blood. Gastrointestinal: The patient denies difficulty swallowing, NOTES acid reflux, denies ulcers, denies vomiting, denies jaundice/hepatitis, denies gallbladder problems, denies black or tarry stools, NOTES hemorrhoids, NOTES bleeding from rectum, NOTES diverticulitis, denies constipation, denies diarrhea, denies loss of stool control, and denies hernias. Kidney/Bladder: The patient denies kidney stones, denies urine infections, and denies bloody urine. Skin: The patient denies a history of skin cancer, denies bleeding/changing moles, and denies a history of skin rash. Neurologic: The patient denies a history of epilepsy/convulsions, denies headaches, denies head/spinal injuries, and denies stroke/TIA. Psychiatric: The patient denies psychiatric medications, NOTES depression, and denies voices, denies substance abuse. Endocrine: The patient NOTES thyroid disorders, NOTES diabetes, and denies hormonal problems. Hematologic: The patient denies a history of bruising, denies bleeding, and NOTES anemia, denies blood clots. Infections: The patient denies a history of measles and mumps, denies rheumatic fever, and denies sexually transmitted diseases. Musculoskeletal: The patient denies back pain/injury, denies back problems, denies sciatica, deniesknee/foot trouble, denies arthritis, or denies gout. When was patient's last Mammogram screening? 08/2023 Last Colonoscopy: Mary Ramsay RN documented in this encounterMem[facility]08-28-[facility]24 Telephone encounter Note * Telephone Encounter - Ana Haines LPN - 05/13/2024 11:06 AM EDT Patient notified and voiced her understanding. Patient transferred to schedule appointment. [facility] Miscellaneous Notes* Telephone Encounter - Ana Haines LPN - 05/13/2024 11:06 AM EDT Patient notified and voiced her understanding. Patient transferred to schedule appointment. * Telephone Encounter - Radha Robins MA - 05/13/2024 10:01 AM EDT Left message for return call. * Telephone Encounter - Nury Alexander APRN.CNP - 05/12/2024 4:54 PM EDT Please let Barbara know that I received the results of her abdominal CT and reviewed with Dr. Locke. She has an area around her mesenteric artery that is in question, and she recommends she see general surgery. Please assist her to schedule this appointment. Nury Alexander APRN.CNP documented in this encounterMemorial Hospital08-28-2024 Telephone encounter Note * Telephone Encounter - Regina Marie LPN - 05/13/2024 10:28 AM EDT Images from the original note were not included. Electronic PA rec'd and completed for the freestyle thee reader. This was approved. Prior authorization approved Payer: Gregor Note from payer: YOLI Case: [id number], Status: Approved, Coverage Starts on: 02/10/2024 12:00:00 AM, Coverage Ends on: 05/13/2025 12:00:00 AM. Approval Details Authorization number: [id number] Authorized from February 10, 2024 to May 13, 2025 Electronic appeal: Not supported View History Notes Time User Attachment Attachment received from payer. 05/13/2024 10:11 AM Cchs, Rx Priorauth In Document Medication Being Authorized Blood-Glucose Meter,Continuous (FREESTYLE THEE 3 READER) misc Use to check blood sugar at least four (4) times daily. Dispense: 1 Each Refills: 0 Start: 05/12/2024 Class: Normal Diagnoses: Uncontrolled type 2 diabetes mellitus with hyperglycemia (HCC) This order has been released to its destination. To be filled at: [facility] #[id number] [place] [address] - [address] [id number] [facility] Miscellaneous Notes* Telephone Encounter - Regian Marie LPN - 05/13/2024 10:28 AM EDT Images from the original note were not included. Electronic PA rec'd and completed for the freestyle thee reader. This was approved. Prior authorization approved Payer: Gregor Note from payer: YOLI Case: [id number], Status: Approved, Coverage Starts on: 02/10/2024 12:00:00 AM, Coverage Ends on: 05/13/2025 12:00:00 AM. Approval Details Authorization number: [id number] Authorized from February 10, 2024 to May 13, 2025 Electronic appeal: Not supported View History Notes Time User Attachment Attachment received from payer. 05/13/2024 10:11 AM Cchs, Rx Priorauth In Document Medication Being Authorized Blood-Glucose Meter,Continuous (FREESTYLE THEE 3 READER) [facility] [place] Use to check blood sugar at least four (4) times daily. Dispense: 1 Each Refills: 0 Start: 05/12/2024 Class: Normal Diagnoses: Uncontrolled type 2 diabetes mellitus with hyperglycemia (HCC) This order has been released to its destination. To be filled at: [id number] [place] [address] - [address] [facility] [phone] [id number] documented in this encounterMemorial Hospital08-28-2024 Telephone encounter Note * Telephone Encounter - Radha Robins MA - 05/13/2024 10:01 AM EDT Left message for return call. [facility] Telephone encounter Note* Telephone Encounter - Nury Alexander APRN.CNP - 05/12/2024 4:54 PM EDT Please let Barbara know that I received the results of her abdominal CT and reviewed with Dr. Locke. She has an area around her mesenteric artery that is in question, and she recommends she see general surgery. Please assist her to schedule this appointment. Nury Alexander APRN.CNP [facility] History of Present illness Narrative* Shahrzad Munson, RT(R) - 05/12/2024 2:20 PM EDT Radiology Service Progress Note DATE OF SERVICE: May 12, 2024 TIME: 2:38 PM PATIENT IDENTITY VERIFICATION COMPLETED USING TWO (2) STANDARD IDENTIFIERS: Name and Date of confirmed by patient verbally. FALL SCREENING: Has the patient had 2 falls in the last year or 1 fall with injury or currently using an Ambulatory Assistive Device (Walker, Cane, Wheelchair, Crutches, etc.)? No PATIENT GENDER DATA: Female. status: : No status: NO. PATIENT RELEVANT IMPLANT DATA REVIEWED: Yes PATIENT PRESENTS WITH AN IMPLANTABLE OR ATTACHED GOLD BUYER: No ALLERGIES: Reviewed and unchanged CONTRAST ALLERGY: NO. EXAM: CT -CONTRAST INDUCED NEPHROPATHY RISK FACTORS: Patient age > 60 years CREATININE: Creatinine Date Value Ref Range Status 04/16/2024 0.97 (H) 0.58 - 0.96 mg/dL Final 02/18/2024 0.78 0.58 - 0.96 mg/dL Final 12/11/2023 0.66 0.58 - 0.96 mg/dL Final Estimated Glomerular Filtration Rate Date Value Ref Range Status 04/16/2024 63 >=60 mL/min/1.73m Final Comment: Estimated Glomerular Filtration Rate (eGFR) is calculated using the 2020 CKD-EPI creatinine equation. This equation utilizes serum creatinine, sex, and age as parameters. The creatinine assay has traceable calibration to isotope dilution- mass spectrometry. Refer to KDIGO guidelines for clinical interpretation. In patients with unstable renal function, e.g. those with acute kidney injury, the eGFRmay not accurately reflect actual GFR. eGFR- Date Value Ref Range Status 06/26/2021 >60 Final P.O.C.T. RESULTS: POC done: Yes, See Lab Tab May 12, 2024 TREATMENT: N/A PERIPHERAL IV DATA: Ambulatory: A peripheral IV was started in the Left antecubital site with a Angio cath: 22 gauge. RADIOLOGY DEPARTMENT: CT; Exam(s) Completed: Abdomen/Pelvis SIGNATURE: RT River(R) PATIENT NAME: Barbara Meneses DATE: May 12, 2024 TIME: 2:38 PM documented in this encounterMemorial Hospital08-27-2024 Instructions* Patient Instructions* Nury Alexander APRN.ASSOCIATE SOFTWARE APPLICATION ENGINEER - 05/12/2024 8:42 AM EDT Continue propanolol. Cut your furosemide (Lasix) back to 40mg once daily. Continue the current spironolactone dose. I'll let Dr. Glez know the plan and I'll let you know if he wants to do anything differently. documented in this encounterMemorial Hospital08-27-2024 History of Present illness Narrative* Nury Alexander APRN.CNP - 05/12/2024 8:23 AM EDT Chief Complaint Patient presents with: Blood Pressure Check Abdominal Pain: Intermittent RLQ sharp pain x 3 weeks, pain worse when she coughs or touches that area. HPI Barbara Meneses is a 69 year old female who presents here today for Above Complaints.. BP-has been running a bit low since hospital discharge on 03/31/24. Is positional somewhat. Feels lightheaded, off balance. Changes made in the hospital were to increase her furosemide from 20mg dailyto 40mg bid; add propanolol 10mg tid. Dr. Glenn Glez-material chaser with [facility]-added spironolactone 75mg daily. RLQ pain x3-4 weeks. Has a hernia she thinks. Doesn't hurt all the time. Worse with standing or walking. Denies n/v, no change in stool. Wondering if she can get CGM for her DM for better control and ease of monitoring. Past medical history, appointments, medications, allergies reviewed. 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 Larkin 02/22/2023: COLONOSCOPY SCREENING 02/22/2023: EGD W/O [facility] SPEC VARICIES INJ 1993: HYSTERECTOMY HX Comment: Total 1974: PAST SURGICAL HISTORY OF Comment: right kidney removed 1991: THYROIDECTOMY SUBTOTAL/PARTIAL Family History FAMILY HISTORY Problem Relation Age of Onset Osteoporosis Mother other (Hepatitis C) Mother Colon Cancer Father other (myasthenia gravis) Father Aneurysm Father Osteoporosis Sister No Known Problems Brother No Known Problems Brother Aneurysm Brother Cancer Brother bladder other (atrial fib) Brother COPD Brother No Known Problems Maternal Grandmother Stroke Maternal Grandfather Patient Allergies ALLERGIES Allergen Reactions Mold Unknown Adhesive Tape (Yamel* Rash Januvia [Sitaglipti* Intolerance GI upset, aching of muscles, headaches Latex Itching Current Medications Current Outpatient Medications on File Prior to Visit Medication Sig furosemide (LASIX) 40 mg tablet Take 1 tablet by mouth once daily. propranolol (INDERAL) 10 mg tablet Take 1 tablet by mouth three times a day. potassium chloride (K-TAB) 10 mEq tablet Take 10 mEq by mouth once daily. spironolactone (ALDACTONE) 25 mg tablet Take 25 mg by mouth two times a day. SYNTHROID 125 mcg tablet Take 1 tablet by mouth once daily. Take on empty stomach. For Thyroid dulaglutide (TRULICITY) 0.75 mg/0.5 mL pen injector Inject 0.75 mg subcutaneously one time a week. Dx: Type 2 diabetes uncontrolled, Inject dose once per week. Discard Pen After DULoxetine (CYMBALTA) 60 mg capsule TAKE 1 CAPSULE DAILY (Patient taking differently: Take 60 mg bymouth once daily. TAKE 1 CAPSULE DAILY) ergocalciferol 50,000 unit capsule (VITAMIN D2, DRISDOL) Take 1 capsule by mouth one time a week. calcium carbonate/vitamin D3 (CALCIUM 500 + D, D3, ORAL) Take 2 tablets by mouth once daily. Lancets lancets Test blood sugar(s) 1 times daily. Dx: Type 2 DM - Uncontrolled E11.65 Insulin: No blood sugar diagnostic (BLOOD GLUCOSE TEST) test strip Test blood sugar(s) 1 times daily. Dx: Type 2 DM - Uncontrolled E11.65 Insulin: No Clobetasol Propionate (TEMOVATE) 0.05 % external solution Apply 1 application to affected area oncedaily as needed (scalp rash). zolpidem (AMBIEN) 5 mg tablet Take 1 tablet by mouth at bedtime as needed for sedation for up to 30days. albuterol HFA (VENTOLIN HFA) 90 mcg/actuation inhaler Inhale 2 Puffs as instructed every 4 hours asneeded for wheezing/shortness of breath. buPROPion (WELLBUTRIN) 100 mg tablet Take 2 tablets to total 200 mg in the morning and 1 tablet in the evening, total of 300 mg a day Magnesium Oxide-Mg Amino Acid Chelate (MAGNESIUM) 300 mg cap Take 300 mg by mouth once daily. SUMAtriptan (IMITREX) 25 mg tablet TAKE 1 TABLET NEEDED FORMIGRAINE HEADACHE (SEE ADMINISTRATIONINSTRUCTIONS) omeprazole (PRILOSEC) 20 mg capsule Take 20 mg by mouth once daily. cyanocobalamin (VITAMIN B-12) 1,000 mcg tab Take 1,000 mcg by mouth once daily. furosemide (LASIX) 20 mg tablet Take 2 tablets by mouth once daily. (Patient not taking: Reported on 05/12/2024) No current facility-administered medications on file prior to visit. Social History Social History Tobacco Use Smoking status: Former Current packs/day: 0.00 Average packs/day: 0.3 packs/day for 5.0 years (1.3 ttl pk-yrs) Types: Cigarettes Start date: 1978 Quit date: 1983 Years since quittin.6 Smokeless tobacco: Never Vaping Use Vaping status: Never Used Substance Use Topics Alcohol use: Yes Comment: Occasionally Drug use: No Review of Symptoms REVIEW OF SYSTEMS See HPI, otherwise negative EXAM: BP 92/58 (BP Site: Left Arm, BP Position: Sitting, BP Cuff Size: Regular Adult) Pulse 80 Temp 36.3 C (97.4 F) Resp 16 Wt 82.2 kg (181 lb 3.2 oz) SpO2 100% BMI 31.55 kg/m General Appearance: Well appearing, alert, in no acute distress, well-hydrated, well nourished.. Lungs: Lungs clear to auscultation. No wheezing, rhonchi, rales.. Heart: RRR without murmur, gallop, or rubs. No ectopy. Abdomen: RLQ tenderness with palpation. Only when standing, approximately tennis-ball sized soft mass palpated to RLQ, is painful to palpation. Extremities: No deformities, edema, skin discoloration, clubbing or cyanosis. Good capillary refill. . Peripheral Pulses: Normal. Neurologic: Gait normal. Reflexes normal and symmetric. Sensation grossly intact.. Psychiatric: pleasant, cooperative. Health Maintenance List Bone Density Screening Never done Mammogram Screening due on 08/21/2024 Covid-19 Vaccine( season) due on 12/29/2024 RSV Vaccine(1 - 1-dose 60+ series) due on 03/31/2025 Shingrix Vaccine(1 of 2) due on 03/31/2025 Pneumococcal Vaccine: 65+(1 of 2 - PCV) due on 03/31/2025 Influenza Vaccine(1) due on 05/17/2024 HbA1C due on 10/01/2024 LDL Cholesterol due on 12/10/2024 Diabetic Foot Exam due on 12/29/2024 Dilated Retinal Exam due on 01/21/2025 Urine Albumin:Creatinine Ratio due on 04/16/2025 Annual PCP Team Chronic Disease Visit due on 05/12/2025 BP Controlled (<130/80) due on 05/12/2025 Colorectal Cancer Screening due on 06/08/2025 DTaP,Tdap,Td Vaccine(2 - Td or Tdap) due on 06/20/2028 Hepatitis C Screening Completed Advance Directive Discussion Discontinued Data reviewed Previous records, office notes ASSESSMENT/PLAN: 1. Portal venous hypertension (HCC) - ICD9: 572.3, ICD10: K76.6 (primary diagnosis) Continue spironolactone 75mg daily as prescribed by hepatology. Cut furosemide back from 40mg bid to 40mg daily. Continue propanolol 10mg tid. F/u in office in 2 weeks. If necessary consider increasing spironolactone to 100mg daily if ok withhepatology. - SPIRONOLACTONE 50 MG TABLET 2. Intra-abdominal and pelvic swelling, mass and lump, unspecified site - ICD9: 789.30, ICD10: R19.00 Suspect likely hernia. - CT ABD/PEL W IVCON - IV CONTRAST (RADIOLOGY PROCEDURE) - ENTERIC CONTRAST (RADIOLOGY PROCEDURE) 3. Right lower quadrant abdominal pain - ICD9: 789.03, ICD10: R10.31 Suspect likely hernia. - CT ABD/PEL W IVCON - IV CONTRAST (RADIOLOGY PROCEDURE) - ENTERIC CONTRAST (RADIOLOGY PROCEDURE) 4. Uncontrolled type 2 diabetes mellitus with hyperglycemia (HCC) - ICD9: 250.02, ICD10: E11.65 - FREESTYLE THEE 3 READER - FREESTYLE THEE 3 SENSOR DEVICE Nury Alexander APRN.ASSOCIATE SOFTWARE APPLICATION ENGINEER documented in this encounterMemorial Hospital08-22-2024 History of Present illness Narrative* Hanna Ortiz RT(R) - 05/07/2024 2:50 PM EDT Radiology Service Progress Note PATIENT NAME: Barbara Meneses DATE OF SERVICE: May 07, 2024 TIME: 2:43 PM PATIENT IDENTITY VERIFICATION COMPLETED USING TWO (2) IDENTIFIERS: Name and Date of confirmedby patient verbally. FALL SCREENING: Has the patient had 2 falls in the last year or 1 fall with injury or currently using an Ambulatory Assistive Device (Walker, Cane, Wheelchair, Crutches, etc.)? No PATIENT GENDER DATA: Female. status: : No status: NO. PATIENT RELEVANT IMPLANT DATA REVIEWED: Not Applicable PATIENT PRESENTS WITH AN IMPLANTABLE OR ATTACHED GOLD BUYER: No RADIOLOGY DEPARTMENT: General X-ray: Exam(s) Completed: Rib X-Ray: Left PERIPHERAL IV DATA: Not applicable SIGNED BY: RT Emiliano(R) May 07, 2024 2:43 PM documented in this encounterMemorial Hospital08-22-2024 History of Present illness Narrative* Jorge Bean APRN.CNP - 05/07/2024 2:31 PM EDT Images from the original note were not included. Subjective HPI Nontoxic-appearing female presents urgent care chief complaint left rib pain. States pain is underneath her left breast. States 3 days ago she turned to reach something in the backseat. States was resting the ribs on the apprise counselor in the car when she felt a pop in her ribs. Gipsy pain. Pain has been present since. Pain is reproducible with movements and palpation. Improved by rest. OTC medications adequate pain management. Denies any other concerns. Denies any fever body aches chills productive cough chest pain shortness of breath pleuritic pain hemoptysis nausea vomiting abdominal pain change in bowel or bladder habits. Past medical history prescription medication use and allergies reviewed. History of 2 pleural effusion that needed to be drained. .Patient presents with: Pain: L side rib pain under breast x3 days PAST MEDICAL HISTORY 08/2015: Albuminuria No date: Depression No date: History of nephrectomy No date: Hypertension 05/07/2023: Iron deficiency anemia secondary to inadequate dietary iron intake 05/07/2023: Iron malabsorption 08/2023: Osteopenia No date: Type 2 diabetes, uncontrolled, with renal manifestation PAST SURGICAL HISTORY 07/15/2017: ASPIRATION BIOPSY, THYROID GLAND; Right Comment: Dr. Larkin 02/22/2023: COLONOSCOPY SCREENING 02/22/2023: EGD W/O [facility] SPEC VARICIES INJ 1993: HYSTERECTOMY HX Comment: Total 1974: PAST SURGICAL HISTORY OF Comment: right kidney removed 1991: THYROIDECTOMY SUBTOTAL/PARTIAL ALLERGIES Mold, Adhesive Tape (Rosins), Januvia [Sitagliptin], and Latex MEDICATIONS furosemide (LASIX) 40 mg tablet Take 1 tablet by mouth once daily. propranolol (INDERAL) 10 mg tablet Take 1 tablet by mouth three times a day. furosemide (LASIX) 20 mg tablet Take 2 tablets by mouth once daily. potassium chloride (K-TAB) 10 mEq tablet Take 10 mEq by mouth once daily. spironolactone (ALDACTONE) 25 mg tablet Take 25 mg by mouth two times a day. SYNTHROID 125 mcg tablet Take 1 tablet by mouth once daily. Take on empty stomach. For Thyroid dulaglutide (TRULICITY) 0.75 mg/0.5 mL pen injector Inject 0.75 mg subcutaneously one time a week. Dx: Type 2 diabetes uncontrolled, Inject dose once per week. Discard Pen After DULoxetine (CYMBALTA) 60 mg capsule TAKE 1 CAPSULE DAILY (Patient taking differently: Take 60 mg bymouth once daily. TAKE 1 CAPSULE DAILY) ergocalciferol 50,000 unit capsule (VITAMIN D2, DRISDOL) Take 1 capsule by mouth one time a week. calcium carbonate/vitamin D3 (CALCIUM 500 + D, D3, ORAL) Take 2 tablets by mouth once daily. Lancets lancets Test blood sugar(s) 1 times daily. Dx: Type 2 DM - Uncontrolled E11.65 Insulin: No blood sugar diagnostic (BLOOD GLUCOSE TEST) test strip Test blood sugar(s) 1 times daily. Dx: Type 2 DM - Uncontrolled E11.65 Insulin: No Clobetasol Propionate (TEMOVATE) 0.05 % external solution Apply 1 application to affected area oncedaily as needed (scalp rash). zolpidem (AMBIEN) 5 mg tablet Take 1 tablet by mouth at bedtime as needed for sedation for up to 30days. albuterol HFA (VENTOLIN HFA) 90 mcg/actuation inhaler Inhale 2 Puffs as instructed every 4 hours asneeded for wheezing/shortness of breath. buPROPion (WELLBUTRIN) 100 mg tablet Take 2 tablets to total 200 mg in the morning and 1 tablet in the evening, total of 300 mg a day Magnesium Oxide-Mg Amino Acid Chelate (MAGNESIUM) 300 mg cap Take 300 mg by mouth once daily. SUMAtriptan (IMITREX) 25 mg tablet TAKE 1 TABLET NEEDED FORMIGRAINE HEADACHE (SEE ADMINISTRATIONINSTRUCTIONS) omeprazole (PRILOSEC) 20 mg capsule Take 20 mg by mouth once daily. cyanocobalamin (VITAMIN B-12) 1,000 mcg tab Take 1,000 mcg by mouth once daily. FAMILY HISTORY Problem Relation Age of Onset Osteoporosis Mother other (Hepatitis C) Mother Colon Cancer Father other (myasthenia gravis) Father Aneurysm Father Osteoporosis Sister No Known Problems Brother No Known Problems Brother Aneurysm Brother Cancer Brother bladder other (atrial fib) Brother COPD Brother No Known Problems Maternal Grandmother Stroke Maternal Grandfather Social History Tobacco Use Smoking status: Former Current packs/day: 0.00 Average packs/day: 0.3 packs/day for 5.0 years (1.3 ttl pk-yrs) Types: Cigarettes Start date: 1978 Quit date: 1983 Years since quittin.6 Smokeless tobacco: Never Vaping Use Vaping status: Never Used Substance Use Topics Alcohol use: Yes Comment: Occasionally Drug use: No BP 91/58 Pulse 68 Temp 36.6 C (97.8 F) Resp 18 Wt 83.8 kg (184 lb 11.9 oz) SpO2 100% BMI 32.17 kg/m Review of Systems Constitutional: Negative for chills, fever and malaise/fatigue. HENT: Negative for congestion, ear discharge, ear pain, sinus pain and sore throat. Eyes: Negative for blurred vision, pain, discharge and redness. Respiratory: Negative for cough, hemoptysis, sputum production, shortness of breath, wheezing and stridor. Cardiovascular: Negative for chest pain. Gastrointestinal: Negative for abdominal pain, diarrhea, nausea and vomiting. Musculoskeletal: Negative for myalgias. Skin: Negative for itching and rash. Neurological: Negative for dizziness and headaches. Objective Physical Exam Constitutional: General: She is not in acute distress. Appearance: She is not toxic-appearing. HENT: Head: Normocephalic. Nose: Nose normal. Eyes: Pupils: Pupils are equal, round, and reactive to light. Cardiovascular: Rate and Rhythm: Normal rate. Pulmonary: Effort: Pulmonary effort is normal. No respiratory distress. Musculoskeletal: Arms: Cervical back: Normal range of motion. Comments: Pain with palpation highlighted area. No crepitus noted. No deformities noted. No rashes.No erythema edema or ecchymosis. Skin: General: Skin is warm and dry. Neurological: General: No focal deficit present. Mental Status: She is alert. ASSESSMENT/PLAN: 1. Rib pain - ICD9: 786.50, ICD10: R07.81 - XR RIBS/CHEST 3V AP RIB/OBLS/CXR LEFT Diagnosed with rib pain. No acute fractures noted. Treat conservatively. Red flags for prompt reevaluation discussed. Follow-up 5 to 7 days symptoms do not progressively improve. Patient was educatedon supportive therapies. Patient was instructed to immediately proceed to emergency room for any new, worsening, or symptoms lasting longer than anticipated. The patient's clinical presentation is otherwise unremarkable at this time. Based on exam and clinical finding, the patient is stable for discharge. Plan of care was discussed with patient. Patient verbalizes understanding and agrees to planof care. This note was generated using Njini software. It may contain errors in wording, punctuation, or spelling. Jorge Bean APRN.ASSOCIATE SOFTWARE APPLICATION ENGINEER documented in this encounterMem[facility]08-[facility]24 Telephone encounter Note * Telephone Encounter - Chritsine Campbell RN - 05/05/2024 2:48 PM EDT Pt reports she was put on this medication when she was in [facility]. She states she was put on it for herliver to help pull fluid off. It looks like Jenny KENT last filled it, but the ordering dept was Hematology. Medication was initially sent to Hematology, but they will not fill it. Pt only has a few pills left. Will PCP fill. The patient has been identified by name and date of : Yes Caregiver verified no other encounters exist for this prescription request: Yes Caregiver confirmed with patient/requestor that no other refills are due, in the near future, with this provider at this time: Yes The last office visit in the department: 04/16/2024 Does the patient have a future office visit with this provider/department: Yes 05/12/2024 Requested Prescriptions Pending Prescriptions Disp Refills furosemide (LASIX) 40 mg tablet Sig: Take 1 tablet by mouth once daily. Christine Campbell RN May 05, 2024 2:49 PM [facility] Miscellaneous Notes* Telephone Encounter - Christine Campbell RN - 05/05/2024 2:48 PM EDT Pt reports she was put on this medication when she was in [facility]. She states she was put on it for herliver to help pull fluid off. It looks like Jenny KENT last filled it, but the ordering dept was Hematology. Medication was initially sent to Hematology, but they will not fill it. Pt only has a few pills left. Will PCP fill. The patient has been identified by name and date of : Yes Caregiver verified no other encounters exist for this prescription request: Yes Caregiver confirmed with patient/requestor that no other refills are due, in the near future, with this provider at this time: Yes The last office visit in the department: 04/16/2024 Does the patient have a future office visit with this provider/department: Yes 05/12/2024 Requested Prescriptions Pending Prescriptions Disp Refills furosemide (LASIX) 40 mg tablet Sig: Take 1 tablet by mouth once daily. Christine Campbell RN May 05, 2024 2:49 PM documented in this encounterMemorial Hospital08-20-2024 Telephone encounter Note * Telephone Encounter - Lela Will LPN - 05/05/2024 12:00 PM EDT We do not prescribe Lasix for this patient. Lela Will LPN [facility] Miscellaneous Notes* Telephone Encounter - Lela Will LPN - 05/05/2024 12:00 PM EDT We do not prescribe Lasix for this patient. Lela Will LPN * Telephone Encounter - Casandra Haskins - 05/05/2024 11:34 AM EDT Patient called in requesting refill of her Lasix. Please assist. Casandra Haskins documented in this encounterMemorial Hospital08-20-2024 Telephone encounter Note * Telephone Encounter - Casandra Haskins - 05/05/2024 11:34 AM EDT Patient called in requesting refill of her Lasix. Please assist. Casandra Haskins [facility] Telephone encounter Note* Telephone Encounter - Karina Winston LPN - 05/05/2024 11:28 AM EDT The patient has been identified by name and date of : Yes Caregiver verified no other encounters exist for this prescription request: Yes Caregiver confirmed with patient/requestor that no other refills are due, in the near future, with this provider at this time: Yes The last office visit in the department: 04/16/2024 Does the patient have a future office visit with this provider/department: Yes 05/12/2024 Requested Prescriptions Pending Prescriptions Disp Refills propranolol (INDERAL) 10 mg tablet 90 tablet 0 Sig: Take 1 tablet by mouth three times a day. Karina Winston LPN May 05, 2024 11:28 AM [facility] Miscellaneous Notes* Telephone Encounter - Karina Winston LPN - 05/05/2024 11:28 AM EDT The patient has been identified by name and date of : Yes Caregiver verified no other encounters exist for this prescription request: Yes Caregiver confirmed with patient/requestor that no other refills are due, in the near future, with this provider at this time: Yes The last office visit in the department: 04/16/2024 Does the patient have a future office visit with this provider/department: Yes 05/12/2024 Requested Prescriptions Pending Prescriptions Disp Refills propranolol (INDERAL) 10 mg tablet 90 tablet 0 Sig: Take 1 tablet by mouth three times a day. Kraina Winston LPN May 05, 2024 11:28 AM documented in this encounterMemorial Hospital08-12-2024 Telephone encounter Note * Telephone Encounter - Marielle Melton - 04/27/2024 11:24 AM EDT I called and let patient know the below information and she stated understanding. Patient stated she did not want to schedule right now and will call our office when she is wanting to schedule [facility] Miscellaneous Notes* Telephone Encounter - Marielle Melton - 04/27/2024 11:24 AM EDT I called and let patient know the below information and she stated understanding. Patient stated she did not want to schedule right now and will call our office when she is wanting to schedule * Telephone Encounter - Beata Boone - 04/24/2024 3:43 PM EDT Iron studies resulted. Latest Reference Range & Units 04/23/24 13:21 Ferritin 14.7 - 205.1 ng/mL 39.1 Iron 41 - 186 ug/dL 47 TIBC 232 - 386 ug/dL 382 Transferrin Saturation 15.0 - 57.0 % 12.3 (L) (L): Data is abnormally low Can you please schedule for IV iron sucrose 300 mg weekly x 3? Thank you! Beata Boone APRN.ASSOCIATE SOFTWARE APPLICATION ENGINEER documented in this encounterMemorial Hospital08-09-2024 Telephone encounter Note * Telephone Encounter - Beata Boone - 04/24/2024 3:43 PM EDT Iron studies resulted. Latest Reference Range & Units 04/23/24 13:21 Ferritin 14.7 - 205.1 ng/mL 39.1 Iron 41 - 186 ug/dL 47 TIBC 232 - 386 ug/dL 382 Transferrin Saturation 15.0 - 57.0 % 12.3 (L) (L): Data is abnormally low Can you please schedule for IV iron sucrose 300 mg weekly x 3? Thank you! Beata Boone APRN.ASSOCIATE SOFTWARE APPLICATION ENGINEER [facility] Work Phone: 1(209) 685-696708-08-2024 Instructions* Patient Instructions* Beata Boone - 04/23/2024 2:[address] Drummond office about BP medications documented in this encounterMemorial Hospital08-08-2024 History of Present illness Narrative* Beata Boone - 04/23/2024 1:30 PM EDT Barbara Meneses 1955 12/17/2023 Hematologic problem(s): 1) WAQAR. 2) Thrombocytopenia. 3) Splenomegaly likely from portal hypertension. Has esophageal varices. HPI: The patient is a 68-year-old female with a past medical history significant for frequent headaches, cervical spine degenerative disease with radiculopathy, hypertension, obstructive sleep apnea,elevated LFTs, diverticulitis, internal hemorrhoids, rectal bleeding, irritable bowel syndrome, type 2 diabetes, hypothyroidism, dyslipidemia, right shoulder subacromial bursitis, generalized anxietydisorder, major depressive disorder with single episode in remission, history of nephrectomy, panicattacks, fatigue and vitamin D deficiency. Started having rectal bleeding about 6 months prior to initial consultation here. Blood every time wipes after BM. Occasional blood in toilet. Formed to loose stools. EGD by Dr. Ben Garcia 02/22/2023. Patient was found to have LA grade a (1 or more mucosal breaks less than 5 mm, not extending between tops of 2 mucosal folds) esophagitis with no bleeding observed 35 cm from the incisors. A mild Schatzki ring was found at the GE junction. 1 column of nonbleeding grade 2 varices were found in the lower third esophagus 33 cm from the incisors. No stigmata of recent bleeding were evident and no red batsheva signs were present. There was diffuse moderately erythematous mucosa without bleeding in the greater curvature of the stomach. Biopsies were obtained. The examined duodenum was normal. Biopsies were obtained. There was a medium size hiatal hernia. Middle thirdesophagus was normal biopsies were obtained. Colonoscopy performed same day revealed nonthrombosed external hemorrhoids, nonthrombosed internal hemorrhoids and internal hemorrhoids that prolapse with straining but required manual replacement into the anal canal on digital rectal exam. Diverticulosis in the sigmoid and descending colon. One 5 mm polyp in the proximal sigmoid colon that was removed with cold biopsy. Inflamed mucosa in the proximal rectum biopsied. Pathology: A. Duodenum, biopsy: A fragment of duodenal mucosa, no pathologic diagnosis. B. Antrum, biopsy: Mild gastritis. See microscopic description and comment. C. Distal esophagus, biopsy: Fragments of gastroesophageal mucosa with moderate chronic inflammation. Intestinal metaplasia (goblet cell metaplasia) not identified. See comment. D. Greater curvature, biopsy: Minimal gastritis. See microscopic description. E. Mid esophagus, biopsy: A fragment of gastroesophageal mucosa with chronic inflammation. Intestinal metaplasia (goblet cell metaplasia) not identified. See comment. F. Colon, random biopsy: Fragments of colonic mucosa, no pathologic diagnosis. G. Proximal sigmoid polyp, biopsy: Hyperplastic polyp. H. Rectal inflammation, biopsy: A fragment of colonic mucosa with focal ulceration and acute inflammation. GERD--omeprazole, a long, long time. On oral iron 4-6 months. Tolerates well. 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 No children. Two miscarriages. Used to have menorrhagia. Diagnosed with endometriosis and had hysterectomy at about age 29. Previous right nephrectomy. Congenital atrophy. Previous ultrasound liver and spleen demonstrated the liver had a coarse echotexture with increasedechogenicity and a smooth surface contour with no lesions. Splenomegaly with spleen measuring 14.2 cm. There was a splenic calcification measuring 9 x 6 x 9 mm. No other focal lesion. Presents for ongoing hematologic management. Interim history: Ms. Meneses presents today for follow up of WAQAR and to review labs. Recent thora for recurrent plural effusion she was told to cut back on salt and fluid restriction of 1.7L. Bleeding hasn't been as bad recently. Continues to have chronic GI blood loss. Encouraged her to keep follow up with GI. Still having rectal bleeding--mostly on toilet paper after wipes. Follows with rectal surgery, not a candidate for surgery at this time. Unable to have hemorrhoids banded. BP low today, asymptomatic, she is on BP medication and lasix, took today. Has BP cuff at home. Advised her to start talking BP at home and call PCP to confirm BP medications from most recent discharge. RLS has been pretty bad lately. Reviewed that this can be a side effect of WAQAR. Her appetite is good, lost weight when she wasn't feeling well. Is going to meet with RD. No N/V. Frequent reflux--still controlled if takes OTC PPI consistently. More frequent diarrhea with certain foods. States she was diagnosed with celiac, was told to start gluten free diet about a year ago. Den ies current SOB, CP, palpitations. ALDRICH. Endorses occasional ice cravings. PAST MEDICAL HISTORY 08/2015: Albuminuria No date: Depression No date: History of nephrectomy No date: Hypertension 05/07/2023: Iron deficiency anemia secondary to inadequate dietary iron intake 05/07/2023: Iron malabsorption 08/2023: Osteopenia No date: Type 2 diabetes, uncontrolled, with renal manifestation PAST SURGICAL HISTORY 07/15/2017: ASPIRATION BIOPSY, THYROID GLAND; Right Comment: Dr. Larkin 02/22/2023: COLONOSCOPY SCREENING 02/22/2023: EGD W/O [facility] SPEC VARICIES INJ 1994: HYSTERECTOMY HX Comment: Total 1975: PAST SURGICAL HISTORY OF Comment: right kidney removed 1992: THYROIDECTOMY SUBTOTAL/PARTIAL ALLERGIES Allergen Reactions Mold Unknown Adhesive Tape (Yamel* Rash Januvia [Sitaglipti* Intolerance GI upset, aching of muscles, headaches Latex Itching Current Outpatient Medications Medication Sig potassium chloride (K-TAB) 10 mEq tablet Take 10 mEq by mouth once daily. propranolol (INDERAL) 10 mg tablet Take 10 mg by mouth three times a day. spironolactone (ALDACTONE) 25 mg tablet Take 25 mg by mouth two times a day. benzonatate (TESSALON PERLES) 100 mg capsule Take 1 capsule by mouth three times a day as needed for cough. furosemide (LASIX) 20 mg tablet Take 40 mg by mouth once daily. SYNTHROID 125 mcg tablet Take 1 tablet by mouth once daily. Take on empty stomach. For Thyroid dulaglutide (TRULICITY) 0.75 mg/0.5 mL pen injector Inject 0.75 mg subcutaneously one time a week. Dx: Type 2 diabetes uncontrolled, Inject dose once per week. Discard Pen After DULoxetine (CYMBALTA) 60 mg capsule TAKE 1 CAPSULE DAILY (Patient taking differently: Take 60 mg bymouth once daily. TAKE 1 CAPSULE DAILY) ergocalciferol 50,000 unit capsule (VITAMIN D2, DRISDOL) Take 1 capsule by mouth one time a week. calcium carbonate/vitamin D3 (CALCIUM 500 + D, D3, ORAL) Take 2 tablets by mouth once daily. Clobetasol Propionate (TEMOVATE) 0.05 % external solution Apply 1 application to affected area oncedaily as needed (scalp rash). zolpidem (AMBIEN) 5 mg tablet Take 1 tablet by mouth at bedtime as needed for sedation for up to 30days. albuterol HFA (VENTOLIN HFA) 90 mcg/actuation inhaler Inhale 2 Puffs as instructed every 4 hours asneeded for wheezing/shortness of breath. buPROPion (WELLBUTRIN) 100 mg tablet Take 2 tablets to total 200 mg in the morning and 1 tablet in the evening, total of 300 mg a day Magnesium Oxide-Mg Amino Acid Chelate (MAGNESIUM) 300 mg cap Take 300 mg by mouth once daily. SUMAtriptan (IMITREX) 25 mg tablet TAKE 1 TABLET NEEDED FORMIGRAINE HEADACHE (SEE ADMINISTRATIONINSTRUCTIONS) omeprazole (PRILOSEC) 20 mg capsule Take 20 mg by mouth once daily. cyanocobalamin (VITAMIN B-12) 1,000 mcg tab Take 1,000 mcg by mouth once daily. Lancets lancets Test blood sugar(s) 1 times daily. Dx: Type 2 DM - Uncontrolled E11.65 Insulin: No blood sugar diagnostic (BLOOD GLUCOSE TEST) test strip Test blood sugar(s) 1 times daily. Dx: Type 2 DM - Uncontrolled E11.65 Insulin: No No current facility-administered medications for this visit. Social History Tobacco Use Smoking status: Former Packs/day: 0.25 Years: 5.00 Additional pack years: 0.00 Total pack years: 1.25 Types: Cigarettes Quit date: 1983 Years since quittin.6 Smokeless tobacco: Never Vaping Use Vaping Use: Never used Substance Use Topics Alcohol use: Yes Comment: Occasionally Drug use: No Family History Problem Relation Age of Onset Osteoporosis Mother other (Hepatitis C) Mother Colon Cancer Father other (myasthenia gravis) Father Aneurysm Father Osteoporosis Sister No Known Problems Brother No Known Problems Brother Aneurysm Brother Cancer Brother bladder other (atrial fib) Brother COPD Brother No Known Problems Maternal Grandmother Stroke Maternal Grandfather ROS: Constitutional: No fever. No drenching night sweats. Normal appetite. No unexplained weight loss. All systems reviewed on 04/23/2024 with pertinent positives and negatives as outlined in the intervalhistory. PHYSICAL EXAM: Vitals: Blood pressure 85/57, pulse 81, temperature 36.2 C (97.2 F), temperature source Temporal, weight 80.7 kg (178 lb), SpO2 98%. Well-appearing and in no acute distress. EYES: Sclerae are anicteric bilaterally. LYMPHATIC: There is no palpable cervical or supraclavicular adenopathy. RESPIRATORY: Inspiratory breath sounds are of normal intensity in all leong. No rales, wheezes or rhonchi. CARDIOVASCULAR: Rhythm is regular. ABDOMEN: The abdomen is nondistended. No splenomegaly or hepatomegaly. No tenderness. Extremities: No swelling or edema. SKIN: No jaundice. I have performed the physical exam today (04/23/2024) and have edited the note to correlate with current findings. LABS: Latest Reference Range & Units 09/23/23 11:30 10/08/23 12:47 12/11/23 13:22 WBC 3.70 - 11.00 k/uL 4.34 3.97 2.64 (L) RBC 3.90 - 5.20 m/uL 3.70 (L) 2.88 (L) 4.03 Hemoglobin 11.5 - 15.5 g/dL 9.4 (L) 6.9 (L) 8.9 (L) Hematocrit 36.0 - 46.0 % 29.9 (L) 22.4 (L) 30.3 (L) Platelet Count 150 - 400 k/uL 103 (L) 105 (L) 93 (L) MCV 80.0 - 100.0 fL 80.8 77.8 (L) 75.2 (L) MCH 26.0 - 34.0 pg 25.4 (L) 24.0 (L) 22.1 (L) MCHC 30.5 - 36.0 g/dL 31.4 30.8 29.4 (L) MPV 9.0 - 12.7 fL 10.9 11.3 See comment RDW-CV 11.5 - 15.0 % 15.4 (H) 16.0 (H) 22.5 (H) Retic % 0.4 - 2.0 % 1.4 Abs Retic 0.018 - 0.100 M/uL 0.058 DTYPE Auto Auto Auto Neut% % 63.4 62.6 58.4 Abs Neut (ANC) 1.45 - 7.50 k/uL 2.75 2.49 1.54 Lymph% % 21.2 22.7 22.7 Abs Lymph 1.00 - 4.00 k/uL 0.92 (L) 0.90 (L) 0.60 (L) [place]% % 9.4 9.8 11.7 Abs [place] <0.87 k/uL 0.41 0.39 0.31 Eosin% % 5.1 4.3 6.4 Abs Eosin <0.46 k/uL 0.22 0.17 0.17 Baso% % 0.7 0.3 0.8 Abs Baso <0.11 k/uL 0.03 <0.03 <0.03 Immature Gran % % 0.2 0.3 0.0 IMMATURE GRANS (ABS) <0.10 k/uL <0.03 <0.03 <0.03 NRBC /100 WBC 0.0 0.0 0.0 Absolute nRBC <0.01 k/uL <0.01 <0.01 <0.01 (L): Data is abnormally low (H): Data is abnormally high PATHOLOGY: Bone marrow biopsy 10/03/2023: FINAL DIAGNOSIS A-C. Bone marrow, left posterior iliac crest, aspirate, biopsy, clot and peripheral smear: - Normocellular marrow with maturing trilineage hematopoiesis, (see comment and microscopic description). Diagnosis Comment The bone marrow is roughly normocellular for age (25-30% overall cellularity). There is no overt morphologic dysplasia and blasts are not increased. Flow cytometry (see separate report) revealed no evidence of involvement by a lymphoproliferative disorder or abnormal blast population. Cytogenetics (see separate report) demonstrated a normal female karyotype. The patient has a history of intermittent anemia and thrombocytopenia. No stainable storage iron was identified by iron stain of the biopsy and aspirate specimens; though iron studies from 07/2023 were within normal limits, studies had previously demonstrated iron deficiency as recently as 02/2023. The patient is also reported to have splenomegaly (U/S from 02/2023), which likely contributes in part to her thrombocytopenia. Myeloid NGS studies have been ordered and will be reported separately when available. ASSESSMENT/PLAN: (D50.9) Iron deficiency anemia, unspecified iron deficiency anemia type (primary encounter diagnosis) (R16.1) Splenomegaly (D69.6) Thrombocytopenia (HCC) (I85.10) Secondary esophageal varices without bleeding (HCC) Assessment: -WAQAR secondary to chronic blood loss (hemorrhoids) and malabsorption due to chronic gastritis and PPI use. - Unable to have hemorrhoid banding. -Thrombocytopenia. Stable. Not on anticoagulation or antiplatelet therapy. 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 -Reviewed the results of the bone marrow biopsy in detail--absent iron stores. No morphologic evidence of MDS. Flow cytometry indicated no evidence of plasma cell disorder or lymphoma. -Was tolerating oral iron well, however states she stopped taking due to GI upset and constipation.Discussed the use of iron sucrose. Reviewed schedule of administration and potential side effects. She agreed to proceed. Plan to repeat due to continued bleeding -continued rectal bleeding. -reviewed CBC in detail with patient today, stable iron studies pending. Discussed in reviewing CBCMCV low would expect iron stores to be low. - Dr. Dion HILARIO Plan: -Follow up with PCP re: recent changes in BP medications following discharge -plan for possible repeat IV iron pending iron studies -Follow-up 8 weeks with repeat CBC, iron studies - discussed will likely need to continue to replenish iron stores as she continues to experience chonic blood loss - continue to follow with GI, hepatology, pulm, pcp RTC 8 weeks with labs. Advised to call with any questions or concerns. Beata Boone APRN.ASSOCIATE SOFTWARE APPLICATION ENGINEER I spent a total of 25 minutes on the date of the service which included preparing to see the patient, [id number] patient care, completing clinical documentation, counseling and educating the patient/family/caregiver, and communicating results to the patient/family/caregiver. Portions of this note including HPI, ROS, impression/plan may have been copied forward as to provide important historical information essential in contributing to medical decision making. Documentation has been reviewed and edited as necessary to support clinical decision making for today's visit and to reflect my own independent evaluation of this patient. documented in this encounterMemorial Hospital08-07-2024 Telephone encounter Note * Telephone Encounter - Michelle Estrada RN - 04/22/2024 12:54 PM EDT Spoke with patient. Given message from provider's office. Patient verbalizes understanding. Michelle Estrada RN [facility]08[facility] Miscellaneous Notes* Telephone Encounter - Michelle Estrada RN - 04/22/2024 12:54 PM EDT Spoke with patient. Given message from provider's office. Patient verbalizes understanding. Michelle Estrada RN * Telephone Encounter - BenjaminNury roman APRN.CNP - 04/22/2024 12:50 PM EDT Yes that's fine. Nury Alexander APRN.CNP * Telephone Encounter - Michelle Estrada RN - 04/22/2024 12:22 PM EDT Patient calling for lab results. Read note to patient from results. She is asking if it is okay to take Antonia Back and Body? It contains 500 mg ASA and 32.5 mg Caffeine. She says she takes 2 caplets occasionally. Michelle Estrada RN documented [facility] Telephone encounter Note * Telephone Encounter - Nury Alexander APRN.CNP - 04/22/2024 12:50 PM EDT Yes that's fine. Nury Alexander APRN.JUANA [facility]08[facility] Telephone encounter Note* Telephone Encounter - Michelle Estrada RN - 04/22/2024 12:22 PM EDT Patient calling for lab results. Read note to patient from results. She is asking if it is okay to take Antonia Back and Body? It contains 500 mg ASA and 32.5 mg Caffeine. She says she takes 2 caplets occasionally. Michelle Estrada, M[facility]08-01-2024 History of Present illness Narrative* Pauline Garcia, RT(R) - 04/16/2024 2:30 PM EDT Radiology Service Progress Note PATIENT NAME: Barbara Meneses DATE OF SERVICE: April 16, 2024 TIME: 3:01 PM PATIENT IDENTITY VERIFICATION COMPLETED USING TWO (2) IDENTIFIERS: Name and Date of confirmedby patient verbally. FALL SCREENING: Has the patient had 2 falls in the last year or 1 fall with injury or currently using an Ambulatory Assistive Device (Walker, Cane, Wheelchair, Crutches, etc.)? No PATIENT GENDER DATA: Female. status: : No status: NO. PATIENT RELEVANT IMPLANT DATA REVIEWED: Yes PATIENT PRESENTS WITH AN IMPLANTABLE OR ATTACHED GOLD BUYER: No RADIOLOGY DEPARTMENT: General X-ray: Exam(s) Completed: Chest X-Ray PERIPHERAL IV DATA: Not applicable SIGNED BY: Pauline Garcia RT(R) April 16, 2024 3:01 PM documented in this encounterMem[facility] Hospital[facility]24 History of Present illness Narrative* Nury Alexander APRN.[facility] - 04/16/2024 1:46 PM EDT Chief Complaint Patient presents with: [facility] [employer] [facility] Barbara Meneses is a 69 year old female who presents here today for Above Complaints.. Has had fluid drained from her left lung x2. Not sure why this is happening. She was told to limit her sodium intake and cut back her fluid intake to 1.7 liters/day. Breathing overall feels normal. Does feel fatigued but has hx of iron deficiency anemia and had hemoglobin level drawn today for hematology, is waiting on results of this. Hasn't slept well the past couple nights because she has had discomfort in her legs. Previously took Antonia back and body. When she was in the hospital all they gave her was Tylenol. Sometimes radiates up into her upper legs. Past medical history, appointments, medications, allergies reviewed. 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 Larkin 02/22/2023: COLONOSCOPY SCREENING 02/22/2023: EGD W/O [facility] SPEC VARICIES INJ 1993: HYSTERECTOMY HX Comment: Total 1974: PAST SURGICAL HISTORY OF Comment: right kidney removed 1991: THYROIDECTOMY SUBTOTAL/PARTIAL Family History FAMILY HISTORY Problem Relation Age of Onset Osteoporosis Mother other (Hepatitis C) Mother Colon Cancer Father other (myasthenia gravis) Father Aneurysm Father Osteoporosis Sister No Known Problems Brother No Known Problems Brother Aneurysm Brother Cancer Brother bladder other (atrial fib) Brother COPD Brother No Known Problems Maternal Grandmother Stroke Maternal Grandfather Patient Allergies ALLERGIES Allergen Reactions Mold Unknown Adhesive Tape (Yamel* Rash Januvia [Sitaglipti* Intolerance GI upset, aching of muscles, headaches Latex Itching Current Medications Current Outpatient Medications on File Prior to Visit Medication Sig potassium chloride (K-TAB) 10 mEq tablet once daily. propranolol (INDERAL) 10 mg tablet three times a day. spironolactone (ALDACTONE) 25 mg tablet two times a day. benzonatate (TESSALON PERLES) 100 mg capsule Take 1 capsule by mouth three times a day as needed for cough. furosemide (LASIX) 20 mg tablet Take 20 mg by mouth once daily. SYNTHROID 125 mcg tablet Take 1 tablet by mouth once daily. Take on empty stomach. For Thyroid dulaglutide (TRULICITY) 0.75 mg/0.5 mL pen injector Inject 0.75 mg subcutaneously one time a week. Dx: Type 2 diabetes uncontrolled, Inject dose once per week. Discard Pen After DULoxetine (CYMBALTA) 60 mg capsule TAKE 1 CAPSULE DAILY ergocalciferol 50,000 unit capsule (VITAMIN D2, DRISDOL) Take 1 capsule by mouth one time a week. calcium carbonate/vitamin D3 (CALCIUM 500 + D, D3, ORAL) Take 2 tablets by mouth once daily. Lancets lancets Test blood sugar(s) 1 times daily. Dx: Type 2 DM - Uncontrolled E11.65 Insulin: No blood sugar diagnostic (BLOOD GLUCOSE TEST) test strip Test blood sugar(s) 1 times daily. Dx: Type 2 DM - Uncontrolled E11.65 Insulin: No Clobetasol Propionate (TEMOVATE) 0.05 % external solution Apply 1 application to affected area oncedaily as needed (scalp rash). albuterol HFA (VENTOLIN HFA) 90 mcg/actuation inhaler Inhale 2 Puffs as instructed every 4 hours asneeded for wheezing/shortness of breath. buPROPion (WELLBUTRIN) 100 mg tablet Take 2 tablets to total 200 mg in the morning and 1 tablet in the evening, total of 300 mg a day Magnesium Oxide-Mg Amino Acid Chelate (MAGNESIUM) 300 mg cap Take 300 mg by mouth once daily. SUMAtriptan (IMITREX) 25 mg tablet TAKE 1 TABLET NEEDED FORMIGRAINE HEADACHE (SEE ADMINISTRATIONINSTRUCTIONS) omeprazole (PRILOSEC) 20 mg capsule Take 20 mg by mouth once daily. cyanocobalamin (VITAMIN B-12) 1,000 mcg tab Take 1,000 mcg by mouth once daily. losartan (COZAAR) 50 mg tablet Take 1 tablet by mouth once daily. (Patient not taking: Reported on 04/16/2024) zolpidem (AMBIEN) 5 mg tablet Take 1 tablet by mouth at bedtime as needed for sedation for up to 30days. No current facility-administered medications on file prior to visit. Social History Social History Tobacco Use Smoking status: Former Packs/day: 0.25 Years: 5.00 Additional pack years: 0.00 Total pack years: 1.25 Types: Cigarettes Quit date: 1983 Years since quittin.6 Smokeless tobacco: Never Vaping Use Vaping Use: Never used Substance Use Topics Alcohol use: Yes Comment: Occasionally Drug use: No Review of Symptoms REVIEW OF SYSTEMS See HPI, otherwise negative EXAM: BP 100/58 (BP Site: Left Arm, BP Position: Sitting, BP Cuff Size: Regular Adult) Pulse 82 Resp 16 Wt 79.7 kg (175 lb 12.8 oz) SpO2 99% BMI 30.61 kg/m General Appearance: Well appearing, alert, in no acute distress, well-hydrated, well nourished.. Lungs: Lungs clear to auscultation. No wheezing, rhonchi, rales.. Heart: RRR without murmur, gallop, or rubs. No ectopy. Psychiatric: pleasant, cooperative. Health Maintenance List Bone Density Screening Never done Urine Albumin:Creatinine Ratio due on 12/06/2023 Mammogram Screening due on 08/21/2024 Covid-19 Vaccine(1 - 2023-24 season) due on 12/29/2024 RSV Vaccine(1 - 1-dose 60+ series) due on 03/31/2025 Shingrix Vaccine(1 of 2) due on 03/31/2025 Pneumococcal Vaccine: 65+(1 of 2 - PCV) due on 03/31/2025 Influenza Vaccine(1) due on 05/17/2024 HbA1C due on 10/01/2024 LDL Cholesterol due on 12/10/2024 Diabetic Foot Exam due on 12/29/2024 Dilated Retinal Exam due on 01/21/2025 Annual PCP Team Chronic Disease Visit due on 03/31/2025 BP Controlled (<130/80) due on 03/31/2025 Colorectal Cancer Screening due on 06/08/2025 DTaP,Tdap,Td Vaccine(2 - Td or Tdap) due on 06/20/2028 Hepatitis C Screening Completed Advance Directive Discussion Discontinued Data reviewed Previous records, office notes ASSESSMENT/PLAN: 1. History of pleural effusion - ICD9: V12.69, ICD10: Z87.09 (primary diagnosis) - XR CHEST 2V FRONTAL/LAT - COMPREHENSIVE METABOLIC PANEL 2. Portal venous hypertension (HCC) - ICD9: 572.3, ICD10: K76.6 - XR CHEST 2V FRONTAL/LAT - COMPREHENSIVE METABOLIC PANEL Nury Alexander APRN.ASSOCIATE SOFTWARE APPLICATION ENGINEER documented in this encounterMem[facility] Hospital07-[facility]24 Telephone encounter Note * Telephone Encounter - Mariana Pacheco LPN - 04/10/2024 3:58 PM EDT Patient returned call and went over notes below from Kavitha Hayes NON DESTRUCTIVE TESTING SCIENTIST with understanding. [facility]07-26[facility] Miscellaneous Notes* Telephone Encounter - Mariana Pacheco LPN - 04/10/2024 3:58 PM EDT Patient returned call and went over notes below from Kavitha Hayes NP with understanding. * Telephone Encounter - Loni Chirinos LPN - 04/10/2024 2:51 PM EDT Left message to return call. * Telephone Encounter - Kavitha Hayes APRN.CNP - 04/10/2024 1:47 PM EDT Noted. I agree with restarting Earl Red or any OTC fish oil/ omega 3 supplement. Thank you, Kavitha Hayes APRN.ASSOCIATE SOFTWARE APPLICATION ENGINEER * Telephone Encounter - Mariana Pacheco LPN - 04/10/2024 1:16 PM EDT Patient returned call and went over notes from Kavitha Hayes NON DESTRUCTIVE TESTING SCIENTIST. Patient said she had taken Earl Red for some time but had to stop it because of the blood thinning when she was having tests done. Patient said she is being treated for non alcoholic cirrhosis of the liver by Dr Saad Abdullahi. She does not want to start any new drugs, said she has started 3 new medications recently. She was asking about taking the Earl Red again? * Telephone Encounter - dAali Matias MA - 04/09/2024 2:04 PM EDT Sviral message sent to pt notifying her we've attempted to reach her by phone x 2 with messages left. Pt made aware to contact office and speak with FM Triage Nurse. Adali Matias MA * Telephone Encounter - Jennifer Campbell RN - 04/07/2024 8:57 AM EDT Called and left a voicemail for the patient to call back and ask for a nurse to receive the providers message. * Telephone Encounter - Pooja Matias LPN - 04/03/2024 3:16 PM EDT Message left to return call. * Telephone Encounter - Kavitha Hayes APRN.CNP - 04/03/2024 1:58 PM EDT Please call patient and see if willing to go on statin therapy and/or if she has tried this in the past. I do not see any statin in prior hx on med list. Thank you, Kavitha Hayes APRN.ASSOCIATE SOFTWARE APPLICATION ENGINEER * Telephone Encounter - Casandra Samaniego RN - 04/03/2024 12:37 PM EDT Marie from [facility] and states records show that patient is diabetic. Patient is recommenced due to this to be put on a statin due to the increased risk of cardiovascular events. Casandra Samaniego RN documented in this encounterMemorial Hospital07-26-2024 Telephone encounter Note * Telephone Encounter - Loni Chirinos LPN - 04/10/2024 2:51 PM EDT Left message to return call. [facility] Telephone encounter Note* Telephone Encounter - Kavitha Hayes APRN.JUANA - 04/10/2024 1:47 PM EDT Noted. I agree with restarting Earl Red or any OTC fish oil/ omega 3 supplement. Thank you, Kavitha Hayes APRN.ASSOCIATE SOFTWARE APPLICATION ENGINEER [facility] Telephone encounter Note* Telephone Encounter - Mariana Pacheco LPN - 04/10/2024 1:16 PM EDT Patient returned call and went over notes from Kavitha Hayes NON DESTRUCTIVE TESTING SCIENTIST. Patient said she had taken Earl Red for some time but had to stop it because of the blood thinning when she was having tests done. Patient said she is being treated for non alcoholic cirrhosis of the liver by Dr Saad Abdullahi. She does not want to start any new drugs, said she has started 3 new medications recently. She was asking about taking the Earl Red again? [facility] Telephone encounter Note* Telephone Encounter - Adali Matias MA - 04/09/2024 2:04 PM EDT [employer] message sent to pt notifying her we've attempted to reach her by phone x 2 with messages left. Pt made aware to contact office and speak with FM Triage Nurse. Adali Matias MA [facility]07-23-[facility]24 Telephone encounter Note* Telephone Encounter - Jennifer Campbell RN - 04/07/2024 8:57 AM EDT Called and left a voicemail for the patient to call back and ask for a nurse to receive the providers message. [facility]07-19[facility] Telephone encounter Note* Telephone Encounter - Pooja Matias LPN - 04/03/2024 3:16 PM EDT Message left to return call. [facility] Work Phone: 1(651) 583-297007-19-2024 Telephone encounter Note* Telephone Encounter - Kavitha Hayes APRN.CNP - 04/03/2024 1:58 PM EDT Please call patient and see if willing to go on statin therapy and/or if she has tried this in the past. I do not see any statin in prior hx on med list. Thank you, Kavitha Hayes APRN.ASSOCIATE SOFTWARE APPLICATION ENGINEER [facility] Telephone encounter Note* Telephone Encounter - Imelda Waterman - 04/03/2024 1:14 PM EDT Called pt to schedule earlier. She does not want to go outside of [place]. I checked Gordon's appointments and there were no sooner availabilities. [facility]07-19-[facility]24 Miscellaneous Notes* Telephone Encounter - Imelda Waterman - 04/03/2024 1:14 PM EDT Called pt to schedule earlier. She does not want to go outside of [place]. I checked Gordon's appointments and there were no sooner availabilities. * Telephone Encounter - Nury Alexander APRN.CNP - 04/02/2024 7:57 AM EDT Not sure if she is currently in the hospital at [facility]. But really need her to see pulmonology sooner than this. Is there anywhere else she could go sooner if she is willing to travel? Nury Alexander APRN.CNP * Telephone Encounter - Imelda Waterman - 03/31/2024 11:54 AM EDT She has no openings that are sooner, [facility] does not see new patients. Pt has been placed on waitlist. * Telephone Encounter - Nury Alexander APRN.CNP - 03/31/2024 11:20 AM EDT Are we able to schedule her with Dr. Galvan, pulmonology, sooner than May due to severity of sx? Nury Alexander APRN.ASSOCIATE SOFTWARE APPLICATION ENGINEER documented in this encounterMemorial Hospital07-19-2024 Telephone encounter Note * Telephone Encounter - Casandra Samaniego RN - 04/03/2024 12:37 PM EDT Marie from [facility] and states records show that patient is diabetic. Patient is recommenced due to this to be put on a statin due to the increased risk of cardiovascular events. Casandra Samaniego RN [facility]07[facility] Telephone encounter Note* Telephone Encounter - Yesy Torres RN - 04/02/2024 4:33 PM EDT Patient reports she is in [facility]. Reports hospital drained fluid from her left lung. Reports she will be discharged somtime today. Patient asking for recent lab results and given those normal results. Reports she was not able to give urine that day, but they gave her a kit to collect it at home and she plans to do that as soon as she is able. [facility] Miscellaneous Notes* Telephone Encounter - Yesy Torres RN - 04/02/2024 4:33 PM EDT Patient reports she is in [facility]. Reports hospital drained fluid from her left lung. Reports she will be discharged somtime today. Patient asking for recent lab results and given those normal results. Reports she was not able to give urine that day, but they gave her a kit to collect it at home and she plans to do that as soon as she is able. documented in this encounterMemorial Hospital07-18-2024 Telephone encounter Note * Telephone Encounter - Nury Alexander APRN.JUANA - 04/02/2024 7:57 AM EDT Not sure if she is currently in the hospital at [facility]. But really need her to see pulmonology sooner than this. Is there anywhere else she could go sooner if she is willing to travel? Nury Alexander APRN.ASSOCIATE SOFTWARE APPLICATION ENGINEER [facility] Telephone encounter Note* Telephone Encounter - Casandra Samaniego RN - 03/31/2024 1:40 PM EDT Patient notified of results and provider's instructions. Patient verbalizes understanding. Patient will be going to [facility] ER. Casandra Samaniego RN [facility]07-[facility] Miscellaneous Notes* Telephone Encounter - Casandra Samaniego RN - 03/31/2024 1:40 PM EDT Patient notified of results and provider's instructions. Patient verbalizes understanding. Patient will be going to [facility] ER. Casandra Samaniego RN * Telephone Encounter - Moraima Sullivan MA - 03/31/2024 1:05 PM EDT Left message to contact office ofe for important results. Moraima Sullivan MA * Telephone Encounter - Nury Alexander APRN.CNP - 03/31/2024 1:02 PM EDT Please let Barbara know that after review of her chest xray by myself as well as Dr. Locke, it looks that she has significant fluid build up in her left lung. She needs to get to the ER OFE. Nury Alexander APRN.CNP documented in this encounterMemorial Hospital07-16-2024 Telephone encounter Note * Telephone Encounter - Moraima Sullivan MA - 03/31/2024 1:05 PM EDT Left message to contact office ofe for important results. Moraima Sullivan MA [facility] Telephone encounter Note* Telephone Encounter - Nury Alexander APRN.CNP - 03/31/2024 1:02 PM EDT Please let Barbara know that after review of her chest xray by myself as well as Dr. Locke, it looks that she has significant fluid build up in her left lung. She needs to get to the ER OFE. Nury Alexander APRN.CNP [facility] History of Present illness Narrative* Hanna Ortiz, RT(R) - 03/31/2024 12:00 PM EDT Radiology Service Progress Note PATIENT NAME: Barbara Meneses DATE OF SERVICE: March 31, 2024 TIME: 11:46 AM PATIENT IDENTITY VERIFICATION COMPLETED USING TWO (2) IDENTIFIERS: Name and Date of confirmedby patient verbally. FALL SCREENING: Has the patient had 2 falls in the last year or 1 fall with injury or currently using an Ambulatory Assistive Device (Walker, Cane, Wheelchair, Crutches, etc.)? No PATIENT GENDER DATA: Female. status: : No status: NO. PATIENT RELEVANT IMPLANT DATA REVIEWED: Not Applicable PATIENT PRESENTS WITH AN IMPLANTABLE OR ATTACHED GOLD BUYER: No RADIOLOGY DEPARTMENT: General X-ray: Exam(s) Completed: Chest X-Ray PERIPHERAL IV DATA: Not applicable SIGNED BY: RT Emiliano(R) March 31, 2024 11:46 AM documented in this encounterMemorial Hospital07-16-2024 Telephone encounter Note * Telephone Encounter - Imelda Waterman - 03/31/2024 11:54 AM EDT She has no openings that are sooner, [facility] does not see new patients. Pt has been placed on waitlist. [facility] Telephone encounter Note* Telephone Encounter - Nury Alexander APRN.CNP - 03/31/2024 11:20 AM EDT Are we able to schedule her with Dr. Galvan, pulmonology, sooner than May due to severity of sx? Nury Alexander APRN.CNP [facility] History of Present illness Narrative* Nury Alexander APRN.CNP - 03/31/2024 11:02 AM EDT Chief Complaint Patient presents with: Follow Up: Was in ER 02/26 for fluid in lungs and cirrhosis of liver, ER records scanned in chart. Following up with Gastro. Dry cough. HPI Barbara Meneses is a 69 year old female who presents here today for Above Complaints.. Was seen at [facility] on 02/27/2024-03/01/2024: Per patient-Was having difficulty breathing, took 2 liters of fluid off her right lung. Relevant Diagnostic Tests and/or Laboratory Data Author Timmy Maldonado [facility] Authored February 28, 2024 1:13pm Report Dictated Date/Time Dictated By Status Ultrasound February 28, 2024 1:13pm Dr. Timmy Maldonado MD completed [facility] Imaging Services [address] [place], [place] [address] Thoracentesis W US MR#: [id number] Acct: [id number] Name: BARBARA MENESES Rep #: [id number] : 1955 F 69 From: Augustin Maldonado MD PCP: Dr. Juan Locke, DO Status: AD M IN Study:Thoracentesis W US Date of Exam: 0 02/28/24 Exam# [id number] Ordering Dr: Ibeth Iraheta MD PROCEDURE: ULTRASOUND GUIDED THORACENTESIS. DATE: February 28, 2024.. INDICATION: Female, 69 years old. Left pleural effusion. PHYSICIAN: Timmy Maldonado M.D. PROCEDURE: The risks, benefits, and alternatives to the procedure were explained to the patient. The specific risks of bleeding, infection, and pneumothorax requiring chest tube insertion were discussed and accepted. Written informed consent was obtained. Ultrasonographic evaluation of the lower pleural space was carried out. An adequate pocket was identified. The patient was placed in the sitting, upright position. The overlying skin was prepped and draped in sterile fashion. 1% lidocaine was administered subcutaneously for local anesthesia. Under ultrasound guidance, a 5 Czech thoracentesis needle/catheter system was advanced into the left posterior lower pleural fluid collection. Approximately 2090 mL of surinder-colored fluid was drained. The catheter was removed, and a sterile dressing was applied. A specimen was collected and sent to the laboratory for analysis, as requested by the referring clinician. The patient tolerated the procedure well. A chest x-ray was ordered. US/Thoracentesis W US IMPRESSION: Ultrasound-guided left thoracentesis. Electronically Signed: Timmy Maldonado MD at 13:13 EDT Per visit with Dr. Zimmer, GI with [facility] on 03/09/2024: Juan Locke [address] [place] [address] Re : Upper GI endoscopy procedure for Barbara Meneses Dear Dr. Locke This procedure was performed on Saturday, March 09, 2024. My impressions and recommendations are as follows: Impressions : - Grade III esophageal varices with no bleeding and no stigmata of recent bleeding. - Portal hypertensive gastropathy. - No gross lesions in the first portion of the duodenum. - No specimens collected. Recommendations : - Discharge patient to home. - Resume previous diet. - Continue present medications. My findings are described in the full procedure note, which is enclosed. If I can be of further assistance, please feel free to contact me at . Sincerely, Ronald Zimmer DO 03/09/2024 11:30:11 AM Currently: Overall is breathing better but thinks she may be starting to develop fluid again. Is scheduled to see pulmonology but not until May. Will be going to [employer] to get things to elevate the head of her bed. Having some rectal bleeding when she wipes after BM. Will be starting hydrocortisone enema bid x14 days, as ordered by Dr. Zimmer, GI specialist. Does have f/u with him coming up soon. BLE occasionally, worse with walking around a lot. Denies CP or palpitations. Has a dry cough, specifically at nighttime. Past medical history, appointments, medications, allergies reviewed. 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 Larkin COLONOSCOPY SCREEN[facility] 02/22/2023 HYSTERECTOMY HX 1993 Total PAST SURGICAL HISTORY OF 1974 right kidney removed THYROIDECTOMY SUBTOTAL/PARTIAL 1991 Family History FAMILY HISTORY Problem Relation Age of Onset Osteoporosis Mother other (Hepatitis C) Mother Colon Cancer Father other (myasthenia gravis) Father Aneurysm Father Osteoporosis Sister No Known Problems Brother No Known Problems Brother Aneurysm Brother Cancer Brother bladder other (atrial fib) Brother COPD Brother No Known Problems Maternal Grandmother Stroke Maternal Grandfather Patient Allergies ALLERGIES Allergen Reactions Mold Unknown Adhesive Tape (Yamel* Rash Januvia [Sitaglipti* Intolerance GI upset, aching of muscles, headaches Latex Itching Current Medications Current Outpatient Medications on File Prior to Visit Medication Sig furosemide (LASIX) 20 mg tablet Take 20 mg by mouth once daily. losartan (COZAAR) 50 mg tablet Take 1 tablet by mouth once daily. SYNTHROID 125 mcg tablet Take 1 tablet by mouth once daily. Take on empty stomach. For Thyroid dulaglutide (TRULICITY) 0.75 mg/0.5 mL pen injector Inject 0.75 mg subcutaneously one time a week. Dx: Type 2 diabetes uncontrolled, Inject dose once per week. Discard Pen After DULoxetine (CYMBALTA) 60 mg capsule TAKE 1 CAPSULE DAILY ergocalciferol 50,000 unit capsule (VITAMIN D2, DRISDOL) Take 1 capsule by mouth one time a week. calcium carbonate/vitamin D3 (CALCIUM 500 + D, D3, ORAL) Take 2 tablets by mouth once daily. Lancets lancets Test blood sugar(s) 1 times daily. Dx: Type 2 DM - Uncontrolled E11.65 Insulin: No blood sugar diagnostic (BLOOD GLUCOSE TEST) test strip Test blood sugar(s) 1 times daily. Dx: Type 2 DM - Uncontrolled E11.65 Insulin: No Clobetasol Propionate (TEMOVATE) 0.05 % external solution Apply 1 application to affected area oncedaily as needed (scalp rash). zolpidem (AMBIEN) 5 mg tablet Take 1 tablet by mouth at bedtime as needed for sedation for up to 30days. albuterol HFA (VENTOLIN HFA) 90 mcg/actuation inhaler Inhale 2 Puffs as instructed every 4 hours asneeded for wheezing/shortness of breath. buPROPion (WELLBUTRIN) 100 mg tablet Take 2 tablets to total 200 mg in the morning and 1 tablet in the evening, total of 300 mg a day Magnesium Oxide-Mg Amino Acid Chelate (MAGNESIUM) 300 mg cap Take 300 mg by mouth once daily. SUMAtriptan (IMITREX) 25 mg tablet TAKE 1 TABLET NEEDED FORMIGRAINE HEADACHE (SEE ADMINISTRATIONINSTRUCTIONS) omeprazole (PRILOSEC) 20 mg capsule Take 20 mg by mouth once daily. cyanocobalamin (VITAMIN B-12) 1,000 mcg tab Take 1,000 mcg by mouth once daily. vancomycin (VANCOCIN) 125 mg capsule Take 125 mg by mouth every 6 hours. 14 days (Patient not taking: Reported on 03/31/2024) benzonatate (TESSALON PERLES) 100 mg capsule Take 1 capsule by mouth three times daily as needed for cough. (Patient not taking: Reported on 03/31/2024) KRILL OIL ORAL Take 1 capsule by mouth one time a week. (Patient not taking: Reported on 03/31/2024) ferrous sulfate 325 mg (65 mg iron) tablet Take 325 mg by mouth daily with breakfast. (Patient not taking: Reported on 12/17/2023) No current facility-administered medications on file prior to visit. Social History Social History Tobacco Use Smoking status: Former Packs/day: 0.25 Years: 5.00 Additional pack years: 0.00 Total pack years: 1.25 Types: Cigarettes Quit date: 1983 Years since quittin.5 Smokeless tobacco: Never Vaping Use Vaping Use: Never used Substance Use Topics Alcohol use: Yes Comment: Occasionally Drug use: No Review of Symptoms REVIEW OF SYSTEMS See HPI, otherwise negative EXAM: BP 116/62 (BP Site: Left Arm, BP Position: Sitting, BP Cuff Size: Regular Adult) Pulse 109 Resp16 Ht 161.4 cm (5' 3.54) Wt 90.4 kg (199 lb 6.4 oz) SpO2 98% BMI 34.72 kg/m General Appearance: Well appearing, alert, in no acute distress, well-hydrated, well nourished. andObese. Lungs: diminished breath sounds in LLL, otherwise others WNL. Heart: RRR without murmur, gallop, or rubs. No ectopy. Extremities: No deformities, edema, skin discoloration, clubbing or cyanosis. Good capillary refill. . Psychiatric: pleasant, cooperative. Health Maintenance List Bone Density Screening Never done Urine Albumin:Creatinine Ratio due on 12/06/2023 Mammogram Screening due on 08/21/2024 Covid-19 Vaccine(1 - season) due on 12/29/2024 RSV Vaccine(1 - 1-dose 60+ series) due on 03/31/2025 Shingrix Vaccine(1 of 2) due on 03/31/2025 Pneumococcal Vaccine: 65+(1 of 2 - PCV) due on 03/31/2025 Influenza Vaccine(1) due on 05/17/2024 HbA1C due on 06/12/2024 LDL Cholesterol due on 12/10/2024 Diabetic Foot Exam due on 12/29/2024 Annual PCP Team Chronic Disease Visit due on 12/29/2024 Dilated Retinal Exam due on 01/21/2025 BP Controlled (<130/80) due on 02/17/2025 Colorectal Cancer Screening due on 06/08/2025 DTaP,Tdap,Td Vaccine(2 - Td or Tdap) due on 06/20/2028 Hepatitis C Screening Completed Advance Directive Discussion Discontinued Data reviewed Previous records, office notes ASSESSMENT/PLAN: 1. Dry cough - ICD9: 786.2, ICD10: R05.8 (primary diagnosis) Reassess for pleural effusion Tessalon Perles prn - NT PRO BNP - BENZONATATE 100 MG CAPSULE 2. Pleural effusion - ICD9: 511.9, ICD10: J90 Reassess for pleural effusion Tessalon Perles prn - NT PRO BNP - XR CHEST 2V FRONTAL/LAT 3. Uncontrolled type 2 diabetes mellitus with hyperglycemia (HCC) - ICD9: 250.02, ICD10: E11.65 - Uncontrolled - Continue current medications - HEMOGLOBIN A1C - ALBUMIN/CREATININE RATIO, URINE 4. Encounter for screening mammogram for breast cancer - ICD9: V76.12, ICD10: Z12.31 - Follow up for annual exam in one year. - JAN SCREENING W MORGAN Alexander APRN.ASSOCIATE SOFTWARE APPLICATION ENGINEER documented in [facility] encounterMem[facility]06-[facility]24 Telephone encounter Note * Telephone Encounter - Casandra Haskins - 03/05/2024 3:15 PM EDT Scheduled as directed and scheduled QWK through next OV. Casandra Haskins [facility] Miscellaneous Notes* Telephone Encounter - Casandra Haskins - 03/05/2024 3:15 PM EDT Scheduled as directed and scheduled QWK through next OV. Casandra Haskins * Telephone Encounter - Monae Lock LPN - 03/05/2024 2:38 PM EDT Pt. Notified no transfusion needed PSS please schedule pt. For CBC poss tx weekly. Please sched next 03/12@ 11:30 am lab draw CBC poss tx Monae Lock LPN * Telephone Encounter - Carla Franco APRN.CNP - 03/05/2024 2:21 PM EDT CBC/poss tx weekly. Thank you. Carla Franco APRN.ASSOCIATE SOFTWARE APPLICATION ENGINEER documented in this encounterMemorial Hospital06-20-2024 Telephone encounter Note * Telephone Encounter - oMnae Lock LPN - 03/05/2024 2:38 PM EDT Pt. Notified no transfusion needed PSS please schedule pt. For CBC poss tx weekly. Please sched next 03/12@ 11:30 am lab draw CBC poss tx Monae Lock LPN [facility] Telephone encounter Note* Telephone Encounter - Carla Franco APRN.JUANA - 03/05/2024 2:21 PM EDT CBC/poss tx weekly. Thank you. Carla Franco APRN.ASSOCIATE SOFTWARE APPLICATION ENGINEER [facility] Work Phone: 1(409) 717-787706-19-2024 Telephone encounter Note* Telephone Encounter - Destiny Rollins LPN - 03/04/2024 4:06 PM EDT Spoke with pt and information listed below given. Pt verbalizes understanding. Destiny Rollins LPN [facility] Miscellaneous Notes* Telephone Encounter - Destiny Rollins LPN - 03/04/2024 4:06 PM EDT Spoke with pt and information listed below given. Pt verbalizes understanding. Destiny Rollins LPN * Telephone Encounter - Casandra Samaniego RN - 03/02/2024 9:55 AM EDT TC patient, left message for patient to call back and speak with a triage nurse regarding results and provider instructions. Casandra Samaniego RN * Telephone Encounter - Juan Locke DO - 03/02/2024 7:40 AM EDT Please inform patient that her ECHO shows - The left ventricle is normal in size. Left ventricular systolic function is normal. EF = 55 5% (2D 4-ch.) Grade I left ventricular diastolic dysfunction. - The right ventricle is normal in size. Right ventricular systolic function is normal. - There are no significant valvular abnormalities. - Trivial to mild pericardial effusion without apparent tamponade physiology This means need for good BLOOD PRESSURE control and exercise as able No major concerns Juan Locke DO * Telephone Encounter - Casandra Samaniego RN - 02/26/2024 3:30 PM EDT Patient calling and asking about results from Echocardiogram. Please review and advise, Casandra Samaniego RN documented in this encounterMemorial Hospital06-19-2024 History of Present illness Narrative* Stacey Paiz MA - 03/04/2024 1:44 PM EDT POPULATION HEALTH NAVIGATION OUTREACH Action/FYI Patient is on [facility] CURRENT ROSTER Workbench list for below and needs appointment to address: Pneumococcal Vaccine: 65+(1 of 2 - PCV) Shingrix Vaccine(1 of 2) RSV Vaccine(1 - 1-dose 60+ series) Bone Density Screening Urine Albumin:Creatinine Ratio Hemoglobin A1C (%) Date Value 12/11/2023 6.9 09/01/2021 8.6 Patient due for: Medicare Annual Wellness Visit Upcoming OV converted per [place] protocol to AWV. Updated notes to address due care gap and HCC gapclosure Reason for Outreach Care Gap/HCC or Scheduling Wellness Visits Care Gaps due: Medicare Annual Wellness Visit Patient Contacted: Unable or unnecessary to reach patient: HCC related Updated appointment notes Navigation Signature: Stacey Paiz MA March 04, 2024 1:44 PM documented in this encounterMemorial Hospital06-18-2024 History of Present illness Narrative* Crys Cronin MA - 03/03/2024 11:17 AM EDT POPULATION HEALTH NAVIGATION OUTREACH Action/FYI CM Pool Message: Type: TCM Please assist with scheduling TCM Hospital Discharge Follow up. TCM Eligible until 03/15/24 Outcomes: Spoke to patient and scheduled hospital follow up. Reason for Outreach Community Monitoring/Network Navigator Pools & Phone Line: TCM Patient Contacted: Spoke to patient/parent/or legal guardian Patient identified by name and : Yes Community Monitoring/Network Navigator Pools & Phone Line actions taken: Patient scheduled: Hospital Follow-up 03/05/2024 in [facility] with TREATMENT [facility] - per pt C2 completed in hospital , patient to schedule 5th dose of iron, IRON SUCROSE 200 MG/C3- EXP? 03/05/2024 in [facility]TX?)* 03/10/2024 in [facility] with TREATMENT RM 11 [facility] - IRON SUCROSE 200 MG/C4- EXP? 03/12/2024 in [facility] with KAVITHA HAYES - Hospital Follow Up - TCM Eligible until 03/15/24 03/16/2024 [facility] NM [facility] - Encounter for screening for cardiovascular disorders [Z13.6] 03/16/2024 [facility] - Encounter for screening for cardiovascular disorders [Z13.6] 03/16/2024 [facility]URSE CARD ADMIN [facility] - Encounter for screening for cardiovascular disorders [Z13.6] 03/31/2024 in [facility] with NURY ALEXANDER - 3 month follow up 04/22/2024 in [facility] with BEATA BOONE - OV/LAB EARLY* 04/22/2024 in LAB [facility] - CBC/IRON STUDIES 07/08/2024 in [facility] with JUAN LOCKE - 6 month thyroid follow up Navigation Signature: Crys Cronin MA March 03, 2024 11:17 AM * Laura Zapien RN - 03/03/2024 10:44 AM EDT TRANSITIONAL CARE MANAGEMENT (TCM) COMMUNITY MONITORING PROGRAM Provider Action/FYI: Pt states she is feeling better , still very tired, has some occasional shortness of breath. Started Lasix 20mg at discharge. Pt will continue to monitor her symptoms closely Will start iron infusions 03/05 . Navigation Team Please assist with scheduling [facility] Discharge Follow up. TCM Eligible until 03/15/24 Thank you SUMMARY: Discharge Network Status: [id number]-Rsikfhc (OON) Discharge Pt discharged from [facility] 03[facility]. Admitted for: Anemia, dyspnea , pleural effusion Copied from Care everywhere : 69-year-old female with history of MAFLD associated cirrhosis, type 2 diabetes, internal hemorrhoids presents to the ED with concerns regarding worsening shortness of breath and was found to have a large left-sided pleural effusion. TCM Home Visit Referral Source of Stratification: [facility] Hospital Admission Status: Discharged Readmission Risk Score: N/A Patient's zip code: N/A Is zip code within program service area: No Patient meets program referral criteria: No Patient does not qualify for High Risk TCM Home Visit program due to: Readmission Risk Score does not meet criteria Disposition: Patient does not qualify for HRTIC, will provide TCM outreach follow-up for 30-days Laura Zapien RN March 03, 2024 10:48 AM Contact made with patient: Yes Hi my name is Laura Zapien RN and I am calling [facility] on behalf of yourPCP, Juan Locke, DO I understand you were recently in the hospital so I am calling to check in with you to ensure you are feeling well now that you're home. May I ask you a few questions related to your hospital stay and well-being? Yes Contact with patient post discharge, spoke to patient. Patient identified by name and . Do you feel your health is BETTER, WORSE, or the SAME since leaving the hospital? Better ACTION TAKEN: Patient indicated symptoms are better or same, no action required. Continue outreach. MEDICATIONS: Many patients have questions or concerns about their medications once they are home. Do you have any questions about taking your medications or which medication you should be on? No Do you need any medication refills at this time, including any of the medications you might take only when needed? No ACTION TAKEN: No action required For RNs or Pharmacy completing outreach ONLY, was a medication review completed? Yes Partial review of new rx med only- pt started Lasix 20mg daily at [place] SOCIAL: We would like to make sure you have what you need so that your basics needs are met - including your personal safety, food, housing and medications. Would you like to speak with a social work child study team director to help give you support for any of these needs? No It can be normal to feel anxious or down during a time like this. Would you like to talk to a mental health professional about how you have been feeling? No ACTION TAKEN: No action taken DISCHARGE INTRUCTIONS: Your discharge instructions / After Visit Summary (AVS) are important in guiding you through the recovery process. Do you have any questions related to your discharge instructions? No Do you have all the necessary equipment and supplies at home? Yes ACTION TAKEN: No action required I would like to help you schedule a hospital follow-up virtual or telephone visit with your PCP. This is a great way for you to connect with your provider to ensure you have safely transitioned home.If you are agreeable, I will send your request to a inbound sales manager who will contact and assist you with that appointment. This will give you an opportunity to ask any questions or address any concerns youmay have with your PCP. Inform the patient that if they have any questions or concerns prior to that appointment, to call their PCP's office right away. ACTION TAKEN: Patient desires an appointment - Routed to [facility] [[id number]] for schedulingtelehealth visit (telephonic, virtual visit, or Facetime) within 7 days of discharge with PCP care team. Indicate hospital follow-up appointment needed within 7 days in Provider/FYI box. End Outreach. Your doctor would like us to remind you of the recommendations regarding the coronavirus (Covid19) outbreak: Avoid public places as much as possible. Avoid close contact (within 6 feet) with others you don t live with, especially if they are sick. Stay home if you are sick. Wash your hands regularly for at least 20 seconds with soap and water. Wear a cloth mask in public places to help reduce community spread. Do not go to your Doctor s office unless instructed to do so. For any non- emergency symptoms, call your Doctor s office to get instructions on how to manage (we might recommend a telephone or virtualvisit). For emergency symptoms, proceed to Emergency Department as usual but inform them of cough and fever symptoms OFE if present (or call on the way if possible). ANALY Education Ordered -: No Laura Zapien RN March 03, 2024 10:51 AM documented in this encounterMemorial Hospital06-17-2024 Telephone encounter Note * Telephone Encounter - Kavitha Vasques - 03/02/2024 11:55 AM EDT Patient informed to arrive early for lab on . She will schedule 5th dose at desk as well. [facility] Work Phone: 1(561) 305-827306-17-2024 Miscellaneous Notes* Telephone Encounter - Kavitha Vasques - 03/02/2024 11:55 AM EDT Patient informed to arrive early for lab on . She will schedule 5th dose at desk as well. * Telephone Encounter - Lela Will LPN - 03/02/2024 10:51 AM EDT Patient will need CBC(?TX) on and will need 5th dose of iron scheduled here. Lela Will LPN * Telephone Encounter - Kavitha Vasques - 03/02/2024 10:26 AM EDT Patient states she was discharged from hospital yesterday and had labs and iron. She canceled appointments for today. documented in this encounterMemorial Hospital06-17-2024 Telephone encounter Note * Telephone Encounter - Lela Will LPN - 03/02/2024 10:51 AM EDT Patient will need CBC(?TX) on and will need 5th dose of iron scheduled here. Lela Will LPN [facility] Telephone encounter Note* Telephone Encounter - Ludy LouieKavitha - 03/02/2024 10:26 AM EDT Patient states she was discharged from hospital yesterday and had labs and iron. She canceled appointments for today. [facility] Telephone encounter Note* Telephone Encounter - Casandra Samaniego RN - 03/02/2024 9:55 AM EDT TC patient, left message for patient to call back and speak with a triage nurse regarding results and provider instructions. Casandra Samaniego RN [facility] Telephone encounter Note* Telephone Encounter - Juan Locke DO - 03/02/2024 7:40 AM EDT Please inform patient that her ECHO shows - The left ventricle is normal in size. Left ventricular systolic function is normal. EF = 55 5% (2D 4-ch.) Grade I left ventricular diastolic dysfunction. - The right ventricle is normal in size. Right ventricular systolic function is normal. - There are no significant valvular abnormalities. - Trivial to mild pericardial effusion without apparent tamponade physiology This means need for good BLOOD PRESSURE control and exercise as able No major concerns Juan Locke DO [facility] Telephone encounter Note* Telephone Encounter - Casandra Haskins - 02/27/2024 3:04 PM EDT Lab scheduled as directed. Casandra Haskins [facility]-13[facility]2024 Miscellaneous Notes* Telephone Encounter - Casandra Haskins - 02/27/2024 3:04 PM EDT Lab scheduled as directed. Casandra Haskins * Telephone Encounter - Monae Lock LPN - 02/27/2024 2:51 PM EDT Spoke with pt. She was in urgent care earlier today for chest pain, SOB,afebrile. Pt. Believes it is pleurisy as she has more difficulty breathing when she is lying down. They refused to see her and instructed her to go to ER. Spoke with pt. And informed per Dr. Novak she needs to go to ER. Pt. Voiced understanding and states she will Go sometime later today. Also informed CBC poss tx on Saturday when here for iron sucrose. PSS please put on Lab schedule. Monae Lock LPN * Telephone Encounter - Carla Franco APRN.JUANA - 02/27/2024 2:40 PM EDT CBC/poss tx on Saturday. Pt. will be here for iron sucrose on Saturday. Thank you. Carla Franco APRN.JUANA documented in this encounterMemorial Hospital06-13-2024 Telephone encounter Note * Telephone Encounter - Monae Lock LPN - 02/27/2024 2:51 PM EDT Spoke with pt. She was in urgent care earlier today for chest pain, SOB,afebrile. Pt. Believes it is pleurisy as she has more difficulty breathing when she is lying down. They refused to see her and instructed her to go to ER. Spoke with pt. And informed per Dr. Novak she needs to go to ER. Pt. Voiced understanding and states she will Go sometime later today. Also informed CBC poss tx on Saturday when here for iron sucrose. PSS please put on Lab schedule. Monae Lock LPN [facility] Telephone encounter Note* Telephone Encounter - Carla Franco APRN.CNP - 02/27/2024 2:40 PM EDT CBC/poss tx on Saturday. Pt. will be here for iron sucrose on Saturday. Thank you. Carla Franco APRN.ASSOCIATE SOFTWARE APPLICATION ENGINEER [facility] Work Phone: 1(833) 507-158806-13-2024 History of Present illness Narrative* Jorge Bean APRN.JUANA - 02/27/2024 2:39 PM EDT Nontoxic-appearing female presents urgent care chief complaint chest pain shortness of breath. Duration of symptoms 3 weeks. Associated symptoms listed above. Presents today with worsening shortness of breath. History of pleurisy. States this feels similar. On examination patient patient was tachypneic and stated shortness of breath was worsening. Recommended patient be seen the ED to rule out possible cardiac or pulmonary causes of pleuritic pain. Will be seen [facility] Jorge Bean APRN.JUANA documented in this encounterMemorial Hospital06-12-2024 Telephone encounter Note * Telephone Encounter - Casandra Samaniego RN - 02/26/2024 3:30 PM EDT Patient calling and asking about results from Echocardiogram. Please review and advise, Casandra Samaniego RN [facility] History of Present illness Narrative* Connor Rhoades MA - 02/26/2024 9:51 AM EDT POPULATION HEALTH NAVIGATION OUTREACH Action/FYI February 26, 2024 9:52 AM Patient is on [facility] Medication Adherence list for the following medications: TRULICITY 0.75 MG/0.5 ML PEN Sig: inject 0.75 milligrams (0.5 MLS) subcutaneously ONCE EVERY WEEK Dispensed: 02/12/2024 12:00 AM Unit form: solution Days supply: 28 Quantity: 2 mL Refills remainin Dispense due date 02.13.2024 LOSARTAN 50MG TAB Dispensed: 02/17/2024 12:00 AM Unit strength: 50 Unit form: tablet Days supply: 90 Quantity: 90 tablet Dispense due date 02.06.2024 New script written on 02.17.2024 [facility] [address] [facility] [id number] NOV with PCP/team is scheduled on 03.31.2024 with Nury Alexander CNP Outcome: No outreach needed at this time Reason for Outreach Med Adherence Patient Contacted: No outreach needed: RX filled per reconcile dispense Navigation Signature: Connor Rhoades MA February 26, 2024 9:52 AM documented in this encounterMemorial Hospital06-06-2024 Telephone encounter Note * Telephone Encounter - Kavitha Vasques - 02/20/2024 2:28 PM EDT Patient confirmed [facility] Work Phone: 1(560) 269-679206-06-2024 Miscellaneous Notes* Telephone Encounter - Kavitha Vasques - 02/20/2024 2:28 PM EDT Patient confirmed * Telephone Encounter - Kavitha Vasques - 02/20/2024 12:14 PM EDT 1st attempt. Message left for patient to contact office to schedule lab and office visit as requested below. Please confirm / appointments with patient and/or reschedule at her request. * Telephone Encounter - Carla Franco APRN.CNP - 02/20/2024 10:42 AM EDT Please schedule follow up OV with Beata in April with CBC/iron studies. Thank you. Carla Franco APRN.CNP documented in this encounterMemorial Hospital06-06-2024 Telephone encounter Note * Telephone Encounter - Kavitha Vasques - 02/20/2024 12:14 PM EDT 1st attempt. Message left for patient to contact office to schedule lab and office visit as requested below. Please confirm 04/22 appointments with patient and/or reschedule at her request. [facility] Telephone encounter Note* Telephone Encounter - Carla Franco APRN.CNP - 02/20/2024 10:42 AM EDT Please schedule follow up OV with Beata in April with CBC/iron studies. Thank you. Carla Franco APRN.JUANA [facility] Work Phone: 1(404) 298-329306-04-2024 Telephone encounter Note* Telephone Encounter - Maryjane Hamm - 02/18/2024 4:06 PM EDT Patient added on for labs and scheduled for iron sucrose. Maryjane Chinchilla [facility]06-04-2024 Miscellaneous Notes* Telephone Encounter - Maryjane Hamm - 02/18/2024 4:06 PM EDT Patient added on for labs and scheduled for iron sucrose. Maryjane Chinchilla * Telephone Encounter - Lela Will LPN - 02/18/2024 3:38 PM EDT I was able to reach patient. She is coming in for a T&S now. PSS- patient needs scheduled for a CBC(?TX) on 02/24/2024. Please schedule when she is heretoday for T&S. She also needs scheduled for 5 doses of iron sucrose. Patient is scheduled for 2 units PRBC 02/19/2024 @ 0830, [facility]. Orders faxed. Lela Will LPN * Telephone Encounter - Lela Will LPN - 02/18/2024 3:33 PM EDT MyChart message sent. Lela Will LPN * Telephone Encounter - Lela Will LPN - 02/18/2024 3:15 PM EDT Have tried multiple times to reach patient, now message says all circuits are busy when attempting to contact patient or her sister. Lela Will LPN * Telephone Encounter - Lela Will LPN - 02/18/2024 3:06 PM EDT Unable to reach patient. Left message for patient to contact this nurse OFE. Lela Will LPN * Telephone Encounter - Carla Franco APRN.CNP - 02/18/2024 2:56 PM EDT Spoke with Lela. Pt. to come back to lab now for type and screen. Lela will contact pt. Carla Franco APRN.JUANA documented [facility]24 Telephone encounter Note * Telephone Encounter - Lela Will LPN - 02/18/2024 3:38 PM EDT I was able to reach patient. She is coming in for a T&S now. PSS- patient needs scheduled for a CBC(?TX) on 02/24/2024. Please schedule when she is heretoday for T&S. She also needs scheduled for 5 doses of iron sucrose. Patient is scheduled for 2 units PRBC 02/19/2024 @ [facility], [facility]. Orders faxed. Lela Will LPN [facility] Telephone encounter Note* Telephone Encounter - Lela Will LPN - 02/18/2024 3:33 PM EDT MyChart message sent. Lela Will LPN [facility] Telephone encounter Note* Telephone Encounter - Lela Will LPN - 02/18/2024 3:15 PM EDT Have tried multiple times to reach patient, now message says all circuits are busy when attempting to contact patient or her sister. Lela Will LPN [facility] Telephone encounter Note* Telephone Encounter - Lela Wlil LPN - 02/18/2024 3:06 PM EDT Unable to reach patient. Left message for patient to contact this nurse OFE. Lela Will LPN [facility] Telephone encounter Note* Telephone Encounter - Carla Franco APRN.ASSOCIATE SOFTWARE APPLICATION ENGINEER - 02/18/2024 2:56 PM EDT Spoke with Lela. Pt. to come back to lab now for type and screen. Lela will contact pt. Carla Franco APRN.JUANA [facility] Work Phone: 1(595) 857-425006-04-2024 History of Present illness Narrative* Carla Franco APRN.CNP - 02/18/2024 1:21 PM EDT Chief Complaint Patient presents with: Established Patient HPI: Barbara Meneses is a 69 year old female who presents here today for follow up WAQAR. Per Phil Boone's previous note: H/o frequent headaches, cervical spine degenerative disease with radiculopathy, hypertension, obstructive sleep apnea, elevated LFTs, diverticulitis, internal hemorrhoids, rectal bleeding, irritable bowel syndrome, type 2 diabetes, hypothyroidism, dyslipidemia, right shoulder subacromial bursitis, generalized anxiety disorder, major depressive disorder with single episode in remission, history ofnephrectomy, panic attacks, fatigue and vitamin D deficiency. Started having rectal bleeding about 6 months prior to initial consultation here. Blood every time wipes after BM. Occasional blood in toilet. Formed to loose stools. EGD by Dr. Ben Garcia 02/22/2023. Patient was found to have LA grade a (1 or more mucosal breaks less than 5 mm, not extending between tops of 2 mucosal folds) esophagitis with no bleeding observed 35 cm from the incisors. A mild Schatzki ring was found at the GE junction. 1 column of nonbleeding grade 2 varices were found in the lower third esophagus 33 cm from the incisors. No stigmata of recent bleeding were evident and no red batsheva signs were present. There was diffuse moderately erythematous mucosa without bleeding in the greater curvature of the stomach. Biopsies were obtained. The examined duodenum was normal. Biopsies were obtained. There was a medium size hiatal hernia. Middle thirdesophagus was normal biopsies were obtained. Colonoscopy performed same day revealed nonthrombosed external hemorrhoids, nonthrombosed internal hemorrhoids and internal hemorrhoids that prolapse with straining but required manual replacement into the anal canal on digital rectal exam. Diverticulosis in the sigmoid and descending colon. One 5 mm polyp in the proximal sigmoid colon that was removed with cold biopsy. Inflamed mucosa in the proximal rectum biopsied. Pathology: A. Duodenum, biopsy: A fragment of duodenal mucosa, no pathologic diagnosis. B. Antrum, biopsy: Mild gastritis. See microscopic description and comment. C. Distal esophagus, biopsy: Fragments of gastroesophageal mucosa with moderate chronic inflammation. Intestinal metaplasia (goblet cell metaplasia) not identified. See comment. D. Greater curvature, biopsy: Minimal gastritis. See microscopic description. E. Mid esophagus, biopsy: A fragment of gastroesophageal mucosa with chronic inflammation. Intestinal metaplasia (goblet cell metaplasia) not identified. See comment. F. Colon, random biopsy: Fragments of colonic mucosa, no pathologic diagnosis. G. Proximal sigmoid polyp, biopsy: Hyperplastic polyp. H. Rectal inflammation, biopsy: A fragment of colonic mucosa with focal ulceration and acute inflammation. GERD--omeprazole, a long, long time. On oral iron 4-6 months. Tolerates well. 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 No children. Two miscarriages. Used to have menorrhagia. Diagnosed with endometriosis and had hysterectomy at about age 29. Previous right nephrectomy. Congenital atrophy. Previous ultrasound liver and spleen demonstrated the liver had a coarse echotexture with increasedechogenicity and a smooth surface contour with no lesions. Splenomegaly with spleen measuring 14.2 cm. There was a splenic calcification measuring 9 x 6 x 9 mm. No other focal lesion. Last dose of iron sucrose January 16. Pt. was seen by GI yesterday-Dr. Zimmer. Labs drawn yesterday per GI order-no results yet. Pt. also has appt. with Dr. Garcia for hemorrhoid banding this month. Appetite:Not very good. Energy level:Not good at all. Denies fevers. Resp:occ. dry cough, denies sob Cardiac:denies chest pain/palpitations GI:denies abd pain, n/v, moving bowels as per usual it hasn't been normal for years. when I wipe Ihave blood from the hemorrhoids. :denies dysuria/hematuria Extrem:denies pain Neuro:denies symptoms of neuropathy Skin:LLE rash-has appt. with DERM Heme:bleeding with BM's-hemorrhoids The ROS is otherwise negative. Past medical history, appointments, medications, allergies reviewed. No changes. EXAM: BP 106/66 Pulse 99 Temp 36.8 C (98.3 F) (Temporal) Wt 93.4 kg (206 lb) SpO2 100% BMI 35.17 kg/m APPEARANCE fatigued appearing, alert, in no acute distress, well-hydrated, well nourished. HEART RRR with normal S1 and S2, no murmurs LUNG clear to auscultation LYMPH NODES No cervical lymphadenopathy, No supraclavicular lymphadenopathy, and No axillary lymphadenopathy. ABDOMEN bowel sounds normoactive, soft, non-tender EXTREMITIES No edema NEURO Awake, alert and oriented x 3, Normal gait, and No involuntary motions. SKIN Skin color, texture, turgor normal, no suspicious rashes or lesions ASSESSMENT/PLAN: 1. Iron deficiency anemia secondary to inadequate dietary iron intake - ICD9: 280.1, ICD10: D50.8 - Tolerated iron sucrose well. Still fatigued. Still having bleeding from hemorrhoids-having surgery this month by Dr. Garcia. - Complete iron sucrose infusions January 17, 2024. - Continue follow up with GI-was seen yesterday-labs pending-pt. has not been notified of any results. - Follow up with Dr. Garcia as scheduled. - CBC/iron studies today. - Follow up pending above. - Pt. aware to call office with any questions/concerns. The patient indicates understanding of these issues and agrees with the plan. All documentation from previous visit of 12/17/23-Phil Boone CNP was copied and pasted, documentationhas been reviewed and edited as necessary for today's visit. Carla Franco APRN.JUANA documented in this encounterMemorial Hospital06-03-2024 Telephone encounter Note * Telephone Encounter - Yesy Torres RN - 02/17/2024 10:56 AM EDT Patient has been identified by name and date of : Yes, Provider Locke Date 02-17-24 Time 10:56 am Patient phones for refill(s): Requested Prescriptions Pending Prescriptions Disp Refills losartan (COZAAR) 50 mg tablet 90 tablet 3 Sig: Take 1 tablet by mouth once daily. Date of last office visit in primary care: 12/30/2023 Date of next office visit in primary care: 03/31/2024 Please advise. Thank you. Yesy Torres RN. [facility] Miscellaneous Notes* Telephone Encounter - Yesy Torres RN - 02/17/2024 10:56 AM EDT Patient has been identified by name and date of : Yes, Provider Locke Date 02-17-24 Time 10:56 am Patient phones for refill(s): Requested Prescriptions Pending Prescriptions Disp Refills losartan (COZAAR) 50 mg tablet 90 tablet 3 Sig: Take 1 tablet by mouth once daily. Date of last office visit in primary care: 12/30/2023 Date of next office visit in primary care: 03/31/2024 Please advise. Thank you. Yesy Torres RN. 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 [facility] Pt is aware [facility] Miscellaneous Notes* Telephone Encounter - Sonya Lockett PSS - 02/12/2024 3:52 PM EDT CD READY FOR DIRECTOR OF ADVERTISING SALES AT [facility] Pt is aware * Telephone Encounter - Catrina Ireland - 02/12/2024 12:55 PM EDT Patient is calling requesting Ct scan from 01/14/2024 copied to a disk for picker / packer in the am of 02/12as she has an appointment in [place] at 11 am on 02/12 documented in this encounterMemorial Hospital05-29-2024 Telephone encounter Note * Telephone Encounter - Catrina Ireland - 02/12/2024 12:55 PM EDT Patient is calling requesting Ct scan from 01/14/2024 copied to a disk for picker / packer in the am of 02/12as she has an appointment in [place] at 11 am on 02/12 [facility] Telephone encounter Note* Telephone Encounter - Moraima Sullivan MA - 02/11/2024 4:05 PM EDT Pt informed, verbalized understanding. Moraima Sullivan MA [facility]-28[facility] Miscellaneous Notes* Telephone Encounter - Moraima Sullivan MA - 02/11/2024 4:05 PM EDT Pt informed, verbalized understanding. Moraima Sullivan MA * Telephone Encounter - Juan Locke DO - 02/11/2024 12:34 PM EDT No need for EMERGENCY DEPARTMENT follow up with us since seeing Gastro specialist Recommend they pre hydrate her before her nuclear scan if able with IVF. Is this an option? Juan Locke DO * Telephone Encounter - Mariana Pacheco LPN - 02/06/2024 12:42 PM EDT Patient calling with question with her nuclear medicine stress test, concerned with only having onekidney and the NM dye? Patient said she was in [facility] ER with abdominal pain was put on augmentin 875 mg twice daily for 10 days. She was only having slight little pains but not bad. She has appt with Dr Zimmer on 02/17/2024. She was asking about an ER follow up, if she has to since appt coming up with Gastro? Please advise documented in this encounterMemorial Hospital05-28-2024 Telephone encounter Note * Telephone Encounter - Juan Locke DO - 02/11/2024 12:34 PM EDT No need for EMERGENCY DEPARTMENT follow up with us since seeing Gastro specialist Recommend they pre hydrate her before her nuclear scan if able with IVF. Is this an option? Juan Locke DO [facility] Telephone encounter Note* Telephone Encounter - Mariana Pacheco LPN - 02/06/2024 12:58 PM EDT Patient calling asking to have Pulmonary referral faxed to Dr Hubert Galvan phone number [phone]. Phoned and fax number is [phone]. Printed chest xray and CT Chest office notes, insurance card copy, face sheet, consult, and faxed as requested. [facility] Miscellaneous Notes* Telephone Encounter - Mariana Pacheco LPN - 02/06/2024 12:58 PM EDT Patient calling asking to have Pulmonary referral faxed to Dr Hubert Galvan phone number [phone]. Phoned and fax number is [phone]. Printed chest xray and CT Chest office notes, insurance card copy, face sheet, consult, and faxed as requested. documented in this encounterMemorial Hospital05-23-2024 Telephone encounter Note * Telephone Encounter - Mariana Pacheco LPN - 02/06/2024 12:42 PM EDT Patient calling with question with her nuclear medicine stress test, concerned with only having onekidney and the NM dye? Patient said she was in [facility] ER with abdominal pain was put on augmentin 875 mg twice daily for 10 days. She was only having slight little pains but not bad. She has appt with Dr Zimmer on 02/17/2024. She was asking about an ER follow up, if she has to since appt coming up with Gastro? Please advise [facility] Telephone encounter Note* Telephone Encounter - Yesy Torres RN - 2024 12:09 PM EDT Patient suspects she may have diverticulitis. Reports moderate to severe left lower abdominal pain,constant for 2 weeks now. Has had fever's off and on. Eating makes it worse. Protocol recommends ER now. Patient agreeable. Will have family drive her. Reason for Disposition [1] SEVERE pain AND [2] age > 60 years Answer Assessment - Initial Assessment Questions 1. LOCATION: Left lower abdomen 2. RADIATION: Radiates to center of abdomen 3. ONSET: 2 weeks ago 4. SUDDEN: Sudden- subsided for a while but never went away. When eats certain things it gets aggravated. Trying to stick to bland diet now. 5. PATTERN Constant. Has right now- it's uncomfortable but not real bad. Never goes away completelyfor last 2 weeks. Right now achy. Has gotten sharp when 1st started. 6. SEVERITY: Moderate to Severe. 7. RECURRENT SYMPTOM: Diagnosed with diverticulitis from a colonoscopy a few years back, but never had symptoms. 8. CAUSE: Maybe diverticulitis. 9. RELIEVING/AGGRAVATING FACTORS: Food makes it worse. It stays calm when she doesn't eat. 10. OTHER SYMPTOMS: Having fever's off and on. No fever today. Has diarrhea quite a bit for a long time. Had a bout with diarrhea 4 or 5 days ago. Has nausea off and on. Lower back pain. No pain withurination. 11. : No. Post menopause. Hx: hysterectomy. Protocols used: Abdominal Pain - [id number] [facility] Miscellaneous Notes* Telephone Encounter - Yesy Torres RN - 2024 12:09 PM EDT Patient suspects she may have diverticulitis. Reports moderate to severe left lower abdominal pain,constant for 2 weeks now. Has had fever's off and on. Eating makes it worse. Protocol recommends ER now. Patient agreeable. Will have family drive her. Reason for Disposition [1] SEVERE pain AND [2] age > 60 years Answer Assessment - Initial Assessment Questions 1. LOCATION: Left lower abdomen 2. RADIATION: Radiates to center of abdomen 3. ONSET: 2 weeks ago 4. SUDDEN: Sudden- subsided for a while but never went away. When eats certain things it gets aggravated. Trying to stick to bland diet now. 5. PATTERN Constant. Has right now- it's uncomfortable but not real bad. Never goes away completelyfor last 2 weeks. Right now achy. Has gotten sharp when 1st started. 6. SEVERITY: Moderate to Severe. 7. RECURRENT SYMPTOM: Diagnosed with diverticulitis from a colonoscopy a few years back, but never had symptoms. 8. CAUSE: Maybe diverticulitis. 9. RELIEVING/AGGRAVATING FACTORS: Food makes it worse. It stays calm when she doesn't eat. 10. OTHER SYMPTOMS: Having fever's off and on. No fever today. Has diarrhea quite a bit for a long time. Had a bout with diarrhea 4 or 5 days ago. Has nausea off and on. Lower back pain. No pain withurination. 11. : No. Post menopause. Hx: hysterectomy. Protocols used: Abdominal Pain - [id number] documented in this encounterMemorial Hospital05-09-2024 Telephone encounter Note * Telephone Encounter - Christine Campbell RN - 01/23/2024 8:21 AM EDT Pt called and is notified of providers results and instructions. Pt voices understanding. Pt flavio has an appointment with Gastro in March and she states she will call back in to schedule the pulmonary appointment. Christine Campbell RN [facility] Miscellaneous Notes* Telephone Encounter - Christine Campbell RN - 01/23/2024 8:21 AM EDT Pt called and is notified of providers results and instructions. Pt voices understanding. Pt flavio has an appointment with Gastro in March and she states she will call back in to schedule the pulmonary appointment. Christine Campbell RN * Telephone Encounter - Juan Locke DO - 01/22/2024 10:42 PM EDT Please inform patient of results as below Need for follow up with Binding Cementer French Cord regarding the lung nodules to make sure no other testing is needed. She needs follow up with Application Services Manager regarding the liver lesion and fluid in abdomen. This is related to liver cause Juan Locke DO * Telephone Encounter - Christine Campbell RN - 01/21/2024 3:55 PM EDT Pt called in about chest CT results: IMPRESSION: 1. Scattered pulmonary nodules measuring up to 5 mm 2. No thoracic lymphadenopathy 3. Small bilateral pleural effusions 4. Hypodensity in the posterior right lobe of the liver which could be further characterized by MRI 5. Mild ascites ACTIONABLE RESULT: FOLLOW-UP Acuity: Actionable Findings: Liver Routing Code: LV_1 Recommendation: MRI LIVER WO/W IVCON (add Dotarem in comments) Time Frame: At the discretion of the clinical team. I let Pt know I would have provider look at findings and get back with her. Please call and advise. documented in this encounterMemorial Hospital05-08-2024 Telephone encounter Note * Telephone Encounter - Juan Locke DO - 01/22/2024 10:42 PM EDT Please inform patient of results as below Need for follow up with Binding Cementer French Cord regarding the lung nodules to make sure no other testing is needed. She needs follow up with Application Services Manager regarding the liver lesion and fluid in abdomen. This is related to liver cause Juan Locke DO [facility]-07-[facility] Telephone encounter Note* Telephone Encounter - Christine Campbell RN - 01/21/2024 3:55 PM EDT Pt called in about chest CT results: IMPRESSION: 1. Scattered pulmonary nodules measuring up to 5 mm 2. No thoracic lymphadenopathy 3. Small bilateral pleural effusions 4. Hypodensity in the posterior right lobe of the liver which could be further characterized by MRI 5. Mild ascites ACTIONABLE RESULT: FOLLOW-UP Acuity: Actionable Findings: Liver Routing Code: LV_1 Recommendation: MRI LIVER WO/W IVCON (add Dotarem in comments) Time Frame: At the discretion of the clinical team. I let Pt know I would have provider look at findings and get back with her. Please call and advise. [facility]30[facility] History of Present illness Narrative* Reef Shahrzad Bonilla, RT(R) - 01/14/2024 11:40 AM EDT Radiology Service Progress Note PATIENT NAME: Barbara Meneses DATE OF SERVICE: January 14, 2024 TIME: 1:32 PM PATIENT IDENTITY VERIFICATION COMPLETED USING TWO (2) IDENTIFIERS: Name and Date of confirmedby patient verbally. FALL SCREENING: Has the patient had 2 falls in the last year or 1 fall with injury or currently using an Ambulatory Assistive Device (Walker, Cane, Wheelchair, Crutches, etc.)? No PATIENT GENDER DATA: Female. status: : No status: NO. PATIENT RELEVANT IMPLANT DATA REVIEWED: Yes PATIENT PRESENTS WITH AN IMPLANTABLE OR ATTACHED GOLD BUYER: No RADIOLOGY DEPARTMENT: CT; Exam(s) Completed: Chest PERIPHERAL IV DATA: Not applicable SIGNED BY: RT River(R) January 14, 2024 1:32 PM documented in this encounterMemorial Hospital04-19-2024 Miscellaneous Notes* Telephone Encounter - Jennifer Campbell RN - 01/03/2024 2:31 PM EDT Pt returned call and notified of results of CXR and given Dr. Locke's recommendations. Pt transferred to inbound sales manager to set up CT scan. * Telephone Encounter - Moraima Sullivan MA - 01/02/2024 8:58 AM EDT Left message to return call Moraima Sullivan MA * Telephone Encounter - Juan Locke DO - 01/01/2024 8:05 PM EDT Please inform patient that her CXR showed small bilateral pleural effusions. Need for additional testing with CT chest Juan Locke DO documented in this encounterMemorial Hospital04-19-2024 Miscellaneous Notes* Telephone Encounter - Catrina Sutton RN - 01/03/2024 1:43 PM EDT Opened in error. See 01/01/24 encounter. Catrina Sutton RN documented in this encounterMemorial Hospital04-19-2024 History of Present illness Narrative* Leslie Amin RN - 01/03/2024 11:01 AM EDT . documented in this [facility]04-16-2024 Miscellaneous Notes* Telephone Encounter - Pooja Matias LPN - 12/31/2023 11:[address] Colin office called they will call the patient for a sooner Appt. * Telephone Encounter - Juan Locke DO - 12/30/2023 2:22 PM EDT Please call Dr. Zimmer's office, Gastroenterology, at [facility] to get a sooner appt. She is scheduled for Nov. She has a hx of esophageal varices and other cirrhosis concerns. Juan Locke DO documented in this encounterMemorial Hospital04-15-2024 History of Present illness Narrative* Karon Ellis, RT(R) - 12/30/2023 3:10 PM EDT Radiology Service Progress Note PATIENT NAME: Barbara Meneses DATE OF SERVICE: December 30, 2023 TIME: 3:05 PM PATIENT IDENTITY VERIFICATION COMPLETED USING TWO (2) IDENTIFIERS: Name and Date of confirmedby patient verbally. FALL SCREENING: Has the patient had 2 falls in the last year or 1 fall with injury or currently using an Ambulatory Assistive Device (Walker, Cane, Wheelchair, Crutches, etc.)? No PATIENT GENDER DATA: Female. status: : No status: NO. PATIENT RELEVANT IMPLANT DATA REVIEWED: Yes PATIENT PRESENTS WITH AN IMPLANTABLE OR ATTACHED GOLD BUYER: No RADIOLOGY DEPARTMENT: General X-ray: Exam(s) Completed: Chest X-Ray PERIPHERAL IV DATA: Not applicable SIGNED BY: RT Minh(R) December 30, 2023 3:05 PM documented in this encounterMemorial Hospital04-15-2024 History of Present illness Narrative* Juan Locke, - 12/30/2023 2:17 PM EDT Patient presents with: F/U 3 Month HPI: Barbara Meneses is a 68 year old female who presents to the office today for review of health conditions. Concerns today: has been trying to be more active with walking her brother's dog and has had less appetite Lightheadedness and dizziness, Fatigued, feels very lethargic and exhausted. Has a long standing iron deficiency and intermittent anemia, currently just restarted iron infusions. Still struggling with these symptoms About 2 weeks ago had abdominal pain and cramping, thought maybe it was diverticulitis flare up, had lower abdominal pain. Having shortness of breath and difficulty with catching her breath She is unsure if some of these symptoms as above are related to her iron deficiency or another cause. She is going to be following up with Dr. Zimmer/Application Services Manager but hasn't been able to get an appt until being seen in Jul. She is on the waiting list. Ms. Meneses has past history of diabetes. Since our last visit she denies excessive thirst or increased frequency of urination, chest pain, new or unusual visual symptoms, and low sugar/hypoglycemic reactions. Depression- no. Follows a diabetic diet most of the time. She is compliant with medication(s) and is tolerating med(s) without any side effects. She reports checking her glucose on a once a day schedule with sugars in the <200 range. Patient's last HgA1C was Hemoglobin A1C (%) Date Value 12/11/2023 6.9 07/27/2023 9.3 09/01/2021 8.6 06/26/2021 9.2 ) Last Ophthalmology exam was within the past 12 months Ms. Meneses reports history of hyperlipidemia. Current therapy includes diet and exercise. Denies side effects of muscle weakness or achiness. Her most recent lipid panels are reviewed. Cholesterol, Total (mg/dL) Date Value 12/11/2023 116 06/26/2021 141 HDL Cholesterol (mg/dL) Date Value 12/11/2023 49 06/26/2021 42 LDL Cholesterol (mg/dL) Date Value 12/11/2023 57 06/26/2021 80 Triglyceride (mg/dL) Date Value 12/11/2023 52 06/26/2021 95 Ms. Meneses indicates a history of hypertension and states that she is feeling well and denies any symptoms referable to elevated blood pressure. Specifically denies headache and chest pain. Patient denies any side effects of her medication(s) and is compliant with their regimen. Last 3 Encounter BP Readings: Date: BP: 01/03/2024 148/69 12/30/2023 120/60 12/27/2023 130/63 She watches her diet for sodium, low fat and low cholesterol some of the time. She does not check BP's generally. Barbara gets minimal exercise. 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 Larkin COLONOSCOPY SCREENING 02/22/2023 EGD W/O [facility] SPEC VARICIES INJ 02/22/2023 HYSTERECTOMY HX 1993 Total PAST SURGICAL HISTORY OF 1975 right kidney removed THYROIDECTOMY SUBTOTAL/PARTIAL 1991 Social History Tobacco Use Smoking status: Former Smokeless tobacco: Never Tobacco comments: Quit long time ago Vaping Use Vaping Use: Never used Substance Use Topics Alcohol use: Yes Comment: Occasionally Drug use: No FAMILY HISTORY Problem Relation Age of Onset Osteoporosis Mother other (Hepatitis C) Mother Colon Cancer Father other (myasthenia gravis) Father Aneurysm Father Osteoporosis Sister No Known Problems Brother No Known Problems Brother Aneurysm Brother Cancer Brother bladder other (atrial fib) Brother COPD Brother No Known Problems Maternal Grandmother Stroke Maternal Grandfather Allergies: ALLERGIES Allergen Reactions Mold Unknown Adhesive Tape (Yamel* Rash Januvia [Sitaglipti* Intolerance GI upset, aching of muscles, headaches Latex Itching Current Meds: dulaglutide (TRULICITY) 0.75 mg/0.5 mL pen injector Inject 0.75 mg subcutaneously one time a week. Dx: Type 2 diabetes uncontrolled, Inject dose once per week. Discard Pen After DULoxetine (CYMBALTA) 60 mg capsule TAKE 1 CAPSULE DAILY ergocalciferol 50,000 unit capsule (VITAMIN D2, DRISDOL) Take 1 capsule by mouth one time a week. calcium carbonate/vitamin D3 (CALCIUM 500 + D, D3, ORAL) Take 2 tablets by mouth once daily. Lancets lancets Test blood sugar(s) 1 times daily. Dx: Type 2 DM - Uncontrolled E11. Insulin: No Clobetasol Propionate (TEMOVATE) 0.05 % external solution Apply 1 application to affected area oncedaily as needed (scalp rash). zolpidem (AMBIEN) 5 mg tablet Take 1 tablet by mouth at bedtime as needed for sedation for up to 30days. losartan (COZAAR) 50 mg tablet Take 1 tablet by mouth once daily. buPROPion (WELLBUTRIN) 100 mg tablet Take 2 tablets to total 200 mg in the morning and 1 tablet in the evening, total of 300 mg a day benzonatate (TESSALON PERLES) 100 mg capsule Take 1 capsule by mouth three times daily as needed for cough. Magnesium Oxide-Mg Amino Acid Chelate (MAGNESIUM) 300 mg cap Take 300 mg by mouth once daily. SUMAtriptan (IMITREX) 25 mg tablet TAKE 1 TABLET NEEDED FORMIGRAINE HEADACHE (SEE ADMINISTRATIONINSTRUCTIONS) omeprazole (PRILOSEC) 20 mg capsule Take 20 mg by mouth once daily. cyanocobalamin (VITAMIN B-12) 1,000 mcg tab Take 1,000 mcg by mouth once daily. SYNTHROID 125 mcg tablet Take 1 tablet by mouth once daily. Take on empty stomach. For Thyroid blood sugar diagnostic (BLOOD GLUCOSE TEST) test strip Test blood sugar(s) 1 times daily. Dx: Type 2 DM - Uncontrolled .65 Insulin: No albuterol HFA (VENTOLIN HFA) 90 mcg/actuation inhaler Inhale 2 Puffs as instructed every 4 hours asneeded for wheezing/shortness of breath. KRILL OIL ORAL Take 1 capsule by mouth one time a week. ferrous sulfate 325 mg (65 mg iron) tablet Take 325 mg by mouth daily with breakfast. (Patient not taking: Reported on 12/17/2023) Review of Systems: The remainder of the review of systems is negative. PE: 12/30/23 1345 BP: 120/60 Pulse: 80 Resp: 16 Temp: (!) 35.7 C (96.3 F) TempSrc: Right Tympanic Weight: 97.1 kg (214 lb) Gen: A&O, NAD, non-toxic appearing, Pleasant, fatigued appearing, slightly pale, cooperative HEENT: NT/AC, PERRLA, EOMs intact b/l, nares clear and patent b/l, pharynx without erythema, exudate or lesions. Uvula midline. MMM, EACs without erythema or debris. TMs pearly land with intact landmarks b/l. Neck: supple, No cervical LAD, no thyromegaly, no carotid bruits CV: RRR, normal S1 and S2, no murmurs, no gallops, no rubs, Pulses 2+ and symmetric in UE and LE b/l Lungs: normal respiratory effort, CTA b/l, no wheezing or rhonchi or rales Abd: soft, mildly distended, mild generalized TTP, ND, +BS, difficulty to assess for hepatosplenomegaly due to obesity MS: arthritis changes of joints. Neuro: CN II-XII intact b/l, strength 5/5 b/l UE and LE, DTRs 2/4 UE and LE, sensation intact. Skin: warm, dry, intact, No rashes or lesions on exposed skin. Foot exam: Monofilament wnl on right and left feet. No edema ASSESSMENT/PLAN: 1. Hypothyroidism, acquired - ICD9: 244.9, ICD10: E03.9 (primary diagnosis) - Instructed patient on importance of taking on an empty stomach either first thing in the morning or at bedtime. - continue current dose of Synthroid Recheck labs - THYROID STIMULATING HORMONE - T4 FREE/FREE THYROXINE - T3, FREE 2. Encounter for screening for cardiovascular disorders - ICD9: V81.2, ICD10: Z13.6 - NM CARDIAC PERF STRESS/PHARM 3. Uncontrolled type 2 diabetes mellitus with hyperglycemia (HCC) - ICD9: 250.02, ICD10: E11.65 - Uncontrolled - Worsening control - Continue current medications - Blood glucose monitoring on a three times daily schedule - Counseled on healthy diet and regular exercise - Discussed need for and benefit of weight loss. BMI 36.54 kg/(m^2) - check las as ordered - REGADENOSON 0.4 MG/5 ML INTRAVENOUS SYRINGE - AMINOPHYLLINE 250 MG/10 ML INTRAVENOUS SOLUTION - METOPROLOL TARTRATE 5 MG/5 ML INTRAVENOUS SOLUTION - ECHO - PERFLUTREN LIPID MICROSPHERES 1.1 MG/ML INJECTION IN NS 10 ML - SODIUM CHLORIDE 0.9 % (FLUSH) INJECTION SYRINGE - ECG COMPLETE 4. Portal venous hypertension (HCC) - ICD9: 572.3, ICD10: K76.6 See above, Needs to follow up with Application Services Manager for repeat testing - REGADENOSON 0.4 MG/5 ML INTRAVENOUS SYRINGE - AMINOPHYLLINE 250 MG/10 ML INTRAVENOUS SOLUTION - METOPROLOL TARTRATE 5 MG/5 ML INTRAVENOUS SOLUTION - ECHO - PERFLUTREN LIPID MICROSPHERES 1.1 MG/ML INJECTION IN NS 10 ML - SODIUM CHLORIDE 0.9 % (FLUSH) INJECTION SYRINGE - ECG COMPLETE 5. Iron deficiency anemia, unspecified iron deficiency anemia type - ICD9: 280.9, ICD10: D50.9 Recheck labs with Director Volunteer Services Continue IV iron infusions This is likely what is contributing to most of her symptoms 6. Esophageal varices determined by endoscopy (HCC) - ICD9: 456.1, ICD10: I85.00 See above, Needs to follow up with Application Services Manager for repeat testing Long standing 7. Thrombocytopenia (HCC) - ICD9: 287.5, ICD10: D69.6 Recheck labs with Director Volunteer Services Continue IV iron infusions This is likely what is contributing to most of her symptoms 8. Weight loss, unintentional - ICD9: 783.21, ICD10: R63.4 Recheck labs with Director Volunteer Services Continue IV iron infusions This is likely what is contributing to most of her symptoms\ She also has risk factors for CAD- therefore need for nuclear stress testing She is not able to exercise for this testing. - VITAMIN B12 - VITAMIN D 25 HYDROXY - PROTEIN ELECTROPHORESIS SERUM W/INTERP 9. Exertional shortness of breath - ICD9: 786.05, ICD10: R06.02 Recheck labs with Director Volunteer Services Continue IV iron infusions This is likely what is contributing to most of her symptoms\ She also has risk factors for CAD- therefore need for nuclear stress testing She is not able to exercise for this testing. - REGADENOSON 0.4 MG/5 ML INTRAVENOUS SYRINGE - AMINOPHYLLINE 250 MG/10 ML INTRAVENOUS SOLUTION - METOPROLOL TARTRATE 5 MG/5 ML INTRAVENOUS SOLUTION - ECHO - PERFLUTREN LIPID MICROSPHERES 1.1 MG/ML INJECTION IN NS 10 ML - SODIUM CHLORIDE 0.9 % (FLUSH) INJECTION SYRINGE - ECG COMPLETE - XR CHEST 2V FRONTAL/LAT 10. Hypertension, essential - ICD9: 401.9, ICD10: I10 - Controlled - Continue current medications - Recommend home blood pressure monitoring, to bring results to next visit - Encouraged sodium restriction, DASH or Mediterranean diet - Recommend regular aerobic exercise - REGADENOSON 0.4 MG/5 ML INTRAVENOUS SYRINGE - AMINOPHYLLINE 250 MG/10 ML INTRAVENOUS SOLUTION - METOPROLOL TARTRATE 5 MG/5 ML INTRAVENOUS SOLUTION - ECHO - PERFLUTREN LIPID MICROSPHERES 1.1 MG/ML INJECTION IN NS 10 ML - SODIUM CHLORIDE 0.9 % (FLUSH) INJECTION SYRINGE - ECG COMPLETE - XR CHEST 2V FRONTAL/LAT 11. Fatigue, unspecified type - ICD9: 780.79, ICD10: R53.83 Recheck labs with Director Volunteer Services Continue IV iron infusions This is likely what is contributing to most of her symptoms\ She also has risk factors for CAD- therefore need for nuclear stress testing She is not able to exercise for this testing. - VITAMIN B12 - VITAMIN D 25 HYDROXY - PROTEIN ELECTROPHORESIS SERUM W/INTERP 12. Dizziness - ICD9: 780.4, ICD10: R42 Recheck labs with Director Volunteer Services Continue IV iron infusions This is likely what is contributing to most of her symptoms\ She also has risk factors for CAD- therefore need for nuclear stress testing She is not able to exercise for this testing. Juan Locke DO To ER if develops chest pain, shortness of breath, or severe worsening of symptoms. Discussed risks, benefits, alternatives, and potential side effects of medications. Patient expressed understanding and agreed with the plan. Juan Locke DO [address] [place] [address] documented in this encounterMem[facility]04-[facility]24 Miscellaneous Notes* Telephone Encounter - Mariana Pacheco LPN - 12/19/2023 1:19 PM EDT Patient has been identified by name and date of : Patient phones for refill(s): Requested Prescriptions Pending Prescriptions Disp Refills dulaglutide (TRULICITY) 0.75 mg/0.5 mL pen injector 12 Each 1 Sig: Inject 0.75 mg subcutaneously one time a week. Dx: Type 2 diabetes uncontrolled, Inject dose once per week. Discard Pen After DULoxetine (CYMBALTA) 60 mg capsule 90 capsule 3 Sig: TAKE 1 CAPSULE DAILY SYNTHROID 137 mcg tablet 30 tablet 3 Sig: take 1 tablet by mouth once daily ON AN EMPTY STOMACH FOR THYROID Date of last office visit in primary care: 09/25/2023 Date of next office visit in primary care: 12/30/2023 Patient needs Trulicity for her dose she takes on Saturday. Please advise. Thank you. Mariana Pacheco LPN. documented in this encounterMem[facility] Hospital04-02-2024 History of Present illness Narrative* Liliana Mcknight - 12/17/2023 3:40 PM EDT Barbara Meneses is identified through a medication adherence outreach initiative based on pharmacy claims data from [employer] (insurer) for Non-insulin DM medication(s). Patient is reviewed 12/17/23 due to medication adherence concerns with the following medications (name, strength, sig): Trulicity 0.75mg once weekly . Per data/report, last fill date and days supply: Trulicity due 12/11 Per reconcile dispense, last fill date and days supply: Trulicity 09/19/23 for 84 ds Per call to pharmacy, last picked up date and days supply: n/a Outcome of review/outreach: (choose outcome source and status) - Sent MyChart reminder to pt to refill [employer] Super[employer] documented in this encounterMem[facility] Hospital04-02-2024 History of Present illness Narrative* Beata Boone - 12/17/2023 1:00 PM EDT Barbara Meneses 1955 12/17/2023 Hematologic problem(s): 1) WAQAR. 2) Thrombocytopenia. 3) Splenomegaly likely from portal hypertension. Has esophageal varices. HPI: The patient is a 68-year-old female with a past medical history significant for frequent headaches, cervical spine degenerative disease with radiculopathy, hypertension, obstructive sleep apnea,elevated LFTs, diverticulitis, internal hemorrhoids, rectal bleeding, irritable bowel syndrome, type 2 diabetes, hypothyroidism, dyslipidemia, right shoulder subacromial bursitis, generalized anxietydisorder, major depressive disorder with single episode in remission, history of nephrectomy, panicattacks, fatigue and vitamin D deficiency. Started having rectal bleeding about 6 months prior to initial consultation here. Blood every time wipes after BM. Occasional blood in toilet. Formed to loose stools. EGD by Dr. Ben Garcia 02/22/2023. Patient was found to have LA grade a (1 or more mucosal breaks less than 5 mm, not extending between tops of 2 mucosal folds) esophagitis with no bleeding observed 35 cm from the incisors. A mild Schatzki ring was found at the GE junction. 1 column of nonbleeding grade 2 varices were found in the lower third esophagus 33 cm from the incisors. No stigmata of recent bleeding were evident and no red batsheva signs were present. There was diffuse moderately erythematous mucosa without bleeding in the greater curvature of the stomach. Biopsies were obtained. The examined duodenum was normal. Biopsies were obtained. There was a medium size hiatal hernia. Middle thirdesophagus was normal biopsies were obtained. Colonoscopy performed same day revealed nonthrombosed external hemorrhoids, nonthrombosed internal hemorrhoids and internal hemorrhoids that prolapse with straining but required manual replacement into the anal canal on digital rectal exam. Diverticulosis in the sigmoid and descending colon. One 5 mm polyp in the proximal sigmoid colon that was removed with cold biopsy. Inflamed mucosa in the proximal rectum biopsied. Pathology: A. Duodenum, biopsy: A fragment of duodenal mucosa, no pathologic diagnosis. B. Antrum, biopsy: Mild gastritis. See microscopic description and comment. C. Distal esophagus, biopsy: Fragments of gastroesophageal mucosa with moderate chronic inflammation. Intestinal metaplasia (goblet cell metaplasia) not identified. See comment. D. Greater curvature, biopsy: Minimal gastritis. See microscopic description. E. Mid esophagus, biopsy: A fragment of gastroesophageal mucosa with chronic inflammation. Intestinal metaplasia (goblet cell metaplasia) not identified. See comment. F. Colon, random biopsy: Fragments of colonic mucosa, no pathologic diagnosis. G. Proximal sigmoid polyp, biopsy: Hyperplastic polyp. H. Rectal inflammation, biopsy: A fragment of colonic mucosa with focal ulceration and acute inflammation. GERD--omeprazole, a long, long time. On oral iron 4-6 months. Tolerates well. 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 No children. Two miscarriages. Used to have menorrhagia. Diagnosed with endometriosis and had hysterectomy at about age 29. Previous right nephrectomy. Congenital atrophy. Previous ultrasound liver and spleen demonstrated the liver had a coarse echotexture with increasedechogenicity and a smooth surface contour with no lesions. Splenomegaly with spleen measuring 14.2 cm. There was a splenic calcification measuring 9 x 6 x 9 mm. No other focal lesion. Presents for ongoing hematologic management. Interim history: Ms. Meneses presents today for follow up of WAQAR and to review labs. She denies any new issues since last being seen. She has not seen GI or hepatology as of yet. Notes that she has had a few apptsscheduled with them but was unable to go due to transportation issues. Continues to have chronic GIblood loss. Encouraged her to keep follow up with GI. Still having rectal bleeding--mostly on toilet paper after wipes. Occasion in toilet bowel. Follows with rectal surgery, not a candidate for surgery at this time. Also recommending GI follow up. Appetite is good. No N/V. Frequent reflux--still controlled if takes OTC PPI consistently. More frequent diarrhea with certain foods. States she was di agnosed with celiac, was told to start gluten free diet about a year ago. Intentional weight loss, started walking more wanting to improve A1C. She stopped taking PO iron a little while ago Denies SOB, CP, palpitations. ALDRICH. Occasional RLS. Endorses ice cravings. 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 Larkin COLONOSCOPY SCREENING 02/22/2023 EGD W/O [facility] SPEC VARICIES INJ 02/22/2023 HYSTERECTOMY HX 1994 Total PAST SURGICAL HISTORY OF 1974 right kidney removed THYROIDECTOMY SUBTOTAL/PARTIAL 1991 ALLERGIES Allergen Reactions Mold Unknown Adhesive Tape (Yamel* Rash Januvia [Sitaglipti* Intolerance GI upset, aching of muscles, headaches Latex Itching Current Outpatient Medications Medication Sig ergocalciferol 50,000 unit capsule (VITAMIN D2, DRISDOL) Take 1 capsule by mouth one time a week. calcium carbonate/vitamin D3 (CALCIUM 500 + D, D3, ORAL) Take 2 tablets by mouth once daily. dulaglutide (TRULICITY) 0.75 mg/0.5 mL pen injector Inject 0.75 mg subcutaneously one time a week. Dx: Type 2 diabetes uncontrolled, Inject dose once per week. Discard Pen After Clobetasol Propionate (TEMOVATE) 0.05 % external solution Apply 1 application to affected area oncedaily as needed (scalp rash). zolpidem (AMBIEN) 5 mg tablet Take 1 tablet by mouth at bedtime as needed for sedation for up to 30days. albuterol HFA (VENTOLIN HFA) 90 mcg/actuation inhaler Inhale 2 Puffs as instructed every 4 hours asneeded for wheezing/shortness of breath. losartan (COZAAR) 50 mg tablet Take 1 tablet by mouth once daily. SYNTHROID 137 mcg tablet take 1 tablet by mouth once daily ON AN EMPTY STOMACH FOR THYROID DULoxetine (CYMBALTA) 60 mg capsule TAKE 1 CAPSULE DAILY WITH 30MG CAPSULES TO TOTAL 90MGA DAY (Patient taking differently: Take by mouth once daily. TAKE 1 CAPSULE DAILY WITH 30MG CAPSULES TO TOTAL 90MGA DAY) buPROPion (WELLBUTRIN) 100 mg tablet Take 2 tablets to total 200 mg in the morning and 1 tablet in the evening, total of 300 mg a day benzonatate (TESSALON PERLES) 100 mg capsule Take 1 capsule by mouth three times daily as needed for cough. Magnesium Oxide-Mg Amino Acid Chelate (MAGNESIUM) 300 mg cap Take 300 mg by mouth once daily. SUMAtriptan (IMITREX) 25 mg tablet TAKE 1 TABLET NEEDED FORMIGRAINE HEADACHE (SEE ADMINISTRATIONINSTRUCTIONS) omeprazole (PRILOSEC) 20 mg capsule Take 20 mg by mouth once daily. cyanocobalamin (VITAMIN B-12) 1,000 mcg tab Take 1,000 mcg by mouth once daily. Lancets lancets Test blood sugar(s) 1 times daily. Dx: Type 2 DM - Uncontrolled E11.65 Insulin: No blood sugar diagnostic (BLOOD GLUCOSE TEST) test strip Test blood sugar(s) 1 times daily. Dx: Type 2 DM - Uncontrolled E11.65 Insulin: No KRILL OIL ORAL Take 1 capsule by mouth one time a week. ferrous sulfate 325 mg (65 mg iron) tablet Take 325 mg by mouth daily with breakfast. (Patient not taking: Reported on 12/17/2023) No current facility-administered medications for this visit. Social History Tobacco Use Smoking status: Former Smokeless tobacco: Never Tobacco comments: Quit long time ago Vaping Use Vaping Use: Never used Substance Use Topics Alcohol use: Yes Comment: Occasionally Drug use: No Family History Problem Relation Age of Onset Osteoporosis Mother other (Hepatitis C) Mother Colon Cancer Father other (myasthenia gravis) Father Aneurysm Father Osteoporosis Sister No Known Problems Brother No Known Problems Brother Aneurysm Brother Cancer Brother bladder other (atrial fib) Brother COPD Brother No Known Problems Maternal Grandmother Stroke Maternal Grandfather ROS: Constitutional: No fever. No drenching night sweats. Normal appetite. No unexplained weight loss. All systems reviewed on 12/17/2023 with pertinent positives and negatives as outlined in the intervalhistory. PHYSICAL EXAM: Vitals: Blood pressure 116/65, pulse 119, temperature 37.1 C (98.8 F), weight 97.5 kg (215 lb), SpO2 99%. Well-appearing and in no acute distress. EYES: Sclerae are anicteric bilaterally. LYMPHATIC: There is no palpable cervical or supraclavicular adenopathy. RESPIRATORY: Inspiratory breath sounds are of normal intensity in all leong. No rales, wheezes or rhonchi. CARDIOVASCULAR: Rhythm is regular. ABDOMEN: The abdomen is nondistended. No splenomegaly or hepatomegaly. No tenderness. Extremities: No swelling or edema. SKIN: No jaundice. I have performed the physical exam today (12/17/2023) and have edited the note to correlate with current findings. LABS: Latest Reference Range & Units 09/23/23 11:30 10/08/23 12:47 12/11/23 13:22 WBC 3.70 - 11.00 k/uL 4.34 3.97 2.64 (L) RBC 3.90 - 5.20 m/uL 3.70 (L) 2.88 (L) 4.03 Hemoglobin 11.5 - 15.5 g/dL 9.4 (L) 6.9 (L) 8.9 (L) Hematocrit 36.0 - 46.0 % 29.9 (L) 22.4 (L) 30.3 (L) Platelet Count 150 - 400 k/uL 103 (L) 105 (L) 93 (L) MCV 80.0 - 100.0 fL 80.8 77.8 (L) 75.2 (L) MCH 26.0 - 34.0 pg 25.4 (L) 24.0 (L) 22.1 (L) MCHC 30.5 - 36.0 g/dL 31.4 30.8 29.4 (L) MPV 9.0 - 12.7 fL 10.9 11.3 See comment RDW-CV 11.5 - 15.0 % 15.4 (H) 16.0 (H) 22.5 (H) Retic % 0.4 - 2.0 % 1.4 Abs Retic 0.018 - 0.100 M/uL 0.058 DTYPE Auto Auto Auto Neut% % 63.4 62.6 58.4 Abs Neut (ANC) 1.45 - 7.50 k/uL 2.75 2.49 1.54 Lymph% % 21.2 22.7 22.7 Abs Lymph 1.00 - 4.00 k/uL 0.92 (L) 0.90 (L) 0.60 (L) [place]% % 9.4 9.8 11.7 Abs [place] <0.87 k/uL 0.41 0.39 0.31 Eosin% % 5.1 4.3 6.4 Abs Eosin <0.46 k/uL 0.22 0.17 0.17 Baso% % 0.7 0.3 0.8 Abs Baso <0.11 k/uL 0.03 <0.03 <0.03 Immature Gran % % 0.2 0.3 0.0 IMMATURE GRANS (ABS) <0.10 k/uL <0.03 <0.03 <0.03 NRBC /100 WBC 0.0 0.0 0.0 Absolute nRBC <0.01 k/uL <0.01 <0.01 <0.01 (L): Data is abnormally low (H): Data is abnormally high PATHOLOGY: Bone marrow biopsy 10/03/2023: FINAL DIAGNOSIS A-C. Bone marrow, left posterior iliac crest, aspirate, biopsy, clot and peripheral smear: - Normocellular marrow with maturing trilineage hematopoiesis, (see comment and microscopic description). Diagnosis Comment The bone marrow is roughly normocellular for age (25-30% overall cellularity). There is no overt morphologic dysplasia and blasts are not increased. Flow cytometry (see separate report) revealed no evidence of involvement by a lymphoproliferative disorder or abnormal blast population. Cytogenetics (see separate report) demonstrated a normal female karyotype. The patient has a history of intermittent anemia and thrombocytopenia. No stainable storage iron was identified by iron stain of the biopsy and aspirate specimens; though iron studies from 07/2023 were within normal limits, studies had previously demonstrated iron deficiency as recently as 02/2023. The patient is also reported to have splenomegaly (U/S from 02/2023), which likely contributes in part to her thrombocytopenia. Myeloid NGS studies have been ordered and will be reported separately when available. ASSESSMENT/PLAN: (D50.9) Iron deficiency anemia, unspecified iron deficiency anemia type (primary encounter diagnosis) (R16.1) Splenomegaly (D69.6) Thrombocytopenia (HCC) (I85.10) Secondary esophageal varices without bleeding (HCC) Assessment: -WAQAR secondary to chronic blood loss (hemorrhoids) and malabsorption due to chronic gastritis and PPI use. -Thrombocytopenia. Improved on recent CBC. Not on anticoagulation or antiplatelet therapy. 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 -Reviewed the results of the bone marrow biopsy in detail--absent iron stores. No morphologic evidence of MDS. Flow cytometry indicated no evidence of plasma cell disorder or lymphoma. -Was tolerating oral iron well, however states she stopped taking due to GI upset and constipation.Discussed the use of iron sucrose. Reviewed schedule of administration and potential side effects. She agreed to proceed. Plan to repeat due to continued bleeding -continued rectal bleeding. - reviewed CBC in detail with patient today, some improvement in hgb however iron remains low. T sat 6.4 iron 23 Plan: -Schedule for 5 doses of iron sucrose. -continue to follow with Dr. Garcia for rectal bleeding -has not followed up with GI yet, occasional difficulty getting to appointments. Encouraged her to do so as soon as possible -Consider hepatology referral. -Follow-up 6 weeks after completing parenteral iron. Beata Boone APRN.[employer] APPLICATION ENGINEER I spent a total of 25 minutes on the date of the service which included preparing to see the patient, [id number] patient care, completing clinical documentation, counseling and educating the patient/family/caregiver, and communicating results to the patient/family/caregiver. Portions of this note including HPI, ROS, impression/plan may have been copied forward as to provide important historical information essential in contributing to medical decision making. Documentation has been reviewed and edited as necessary to support clinical decision making for today's visit and to reflect my own independent evaluation of this patient. documented in this encounterMem[facility]03-12-2024 Miscellaneous Notes* Telephone Encounter - Casandra Samaniego RN - 11/26/2023 1:42 PM EDT Patient has been identified by name and date of : Patient phones for refill(s): Requested Prescriptions Pending Prescriptions Disp Refills ergocalciferol 50,000 unit capsule (VITAMIN D2, DRISDOL) 12 capsule 3 Sig: Take 1 capsule by mouth one time a week. Date of last office visit in primary care: 09/25/2023 Date of next office visit in primary care: 12/30/2023 Please advise. Thank you. Casandra Samaniego RN. documented in this encounterMemorial Hospital03-04-2024 Miscellaneous Notes* Telephone Encounter - Sheeba Gtz LISW - 11/18/2023 2:41 PM EST Pt noted on 1st time treatment report. Treatment receiving is non-oncology regimen. No follow up indicated. AMAN Ramey-Charles documented in this encounterMemorial Hospital02-02-2024 Miscellaneous Notes* Telephone Encounter - Kavitha Vasques - 10/18/2023 11:45 AM EST Patient called to schedule 1st iron. Scheduled. Start Email sent. *Patient is currently taking care of her brother and states she will schedule remaining iron 2 thru5 along with CBC/Iron studies/Retic and OV with Beata Boone about 4-6 weeks after completing iron when she comes in for 1st infusion on 10/25. * Telephone Encounter - Kavitha Vasques - 10/17/2023 12:07 PM EST 2nd attempt. Message left for patient to schedule the following- -Schedule 5 doses iron sucrose - 30 min in TR13 -CBC/Iron studies/Retic and OV with Beata Boone about 4-6 weeks after completing iron. * Telephone Encounter - Casandra Haskins - 10/09/2023 1:00 PM EST Spoke with patient to scheduled iron infusions and follow up labs/ov, but patient unable to schedule. Patient stated she would call back to schedule. Casandra Haskins * Telephone Encounter - Clayton Novak DO - 10/08/2023 1:00 PM EST They are already filed in [place]. Clayton Novak DO * Telephone Encounter - Eloise Donovan LPN - 10/08/2023 12:58 PM EST Please file orders for iron sucrose for scheduling/authorization purposes. * Telephone Encounter - Casandra Haskins - 10/08/2023 12:51 PM EST Check out comments: Labs today. - completed Schedule for 5 doses iron sucrose. OV/CBC/Iron studies/Retic with Beata about 4-6 weeks after completing iron. Please file orders for iron sucrose for scheduling/authorization purposes. Casandra Haskins documented in this encounterMemorial Hospital02-02-2024 Miscellaneous Notes* Telephone Encounter - Christine Campbell, MJ - 10/18/2023 8:46 AM EST Manuela with Dr. Ben Garcia's office called in and was asking what provider and where Pt was scheduled for Gastro. I told her she was scheduled in [place] and with Kaylene Lamb. The Pt had forgotten this information. * Telephone Encounter - Jolene Ansari - 10/15/2023 9:13 AM EST 1st call attempt, left vm * Telephone Encounter - Juan Locke DO - 10/14/2023 5:10 PM EST Referral placed for ordnance handler, please help her schedule appt Juan Locke DO * Telephone Encounter - Destiny Rollins LPN - 10/10/2023 3:[address] Garcia's last office and delivering to pcp's nurse. Destiny Rollins LPN * Telephone Encounter - Destiny Rollins LPN - 10/10/2023 2:58 PM EST Received a call from Manuela with Dr. Ben Garcia's office, [facility]. Pt is in need of a hemorrhoidectomy and this can not be done till her portal venous hypertension is under control. Pt also has esophageal varices and splenomegaly. Dr. Novak is going to set up an iron infusion in the near future. Dr. Garcia is asking if you would be willing to put in a GI referral or liver specialist and help tofacilitate a sooner verses later apt to be seen at [facility] facility. Please advise Manuela with Dr. Garcia's office. [phone] option 4. documented in this encounterMemorial Hospital02-01-2024 History of Present illness Narrative* Tomas-Laura De Paz APRN.ASSOCIATE SOFTWARE APPLICATION ENGINEER - 10/17/2023 11:37 AM EST Subjective Cough Associated symptoms include shortness of breath. Pertinent negatives include no chills, no ear pain, no sore throat, no myalgias and no wheezing. Barbara Meneses is a 68 year old female who presents with dry cough for the past 2 weeks. She has not had a fever. She feels like she has congestion in her chest but cannot cough anything up. Shegets short of breath with activity. She feels like she has thick phlegm draining down her throat and it gets stuck. She denies swelling in her feet or ankles. She has not had any medication at home fo r her cough. Review of Systems Constitutional: Negative for chills and fever. HENT: Positive for congestion. Negative for ear pain, sinus pain and sore throat. Respiratory: Positive for cough and shortness of breath. Negative for sputum production and wheezing. Cardiovascular: Negative. Musculoskeletal: Negative for myalgias. BP 146/67 Pulse 113 Temp 36.6 C (97.9 F) Resp 20 Wt 104.3 kg (230 lb) SpO2 100% BMI 39.27 kg/m PAST MEDICAL HISTORY Diagnosis Date Albuminuria 08/2015 Depression History of nephrectomy Hypertension Iron deficiency anemia secondary to inadequate dietary iron intake 05/07/2023 Iron malabsorption 05/07/2023 Osteopenia 08/2023 Type 2 diabetes, uncontrolled, with renal manifestation PAST SURGICAL HISTORY Procedure Laterality Date ASPIRATION BIOPSY, THYROID GLAND Right 07/15/2017 Dr. Larkin HYSTERECTOMY HX 1993 Total PAST SURGICAL HISTORY OF 1974 right kidney removed THYROIDECTOMY SUBTOTAL/PARTIAL 1991 ALLERGIES Mold, Adhesive Tape (Rosins), Januvia [Sitagliptin], and Latex MEDICATIONS calcium carbonate/vitamin D3 (CALCIUM 500 + D, D3, ORAL) Take 2 tablets by mouth once daily. Lancets lancets Test blood sugar(s) 1 times daily. Dx: Type 2 DM - Uncontrolled E11.65 Insulin: No blood sugar diagnostic (BLOOD GLUCOSE TEST) test strip Test blood sugar(s) 1 times daily. Dx: Type 2 DM - Uncontrolled E11.65 Insulin: No dulaglutide (TRULICITY) 0.75 mg/0.5 mL pen injector Inject 0.75 mg subcutaneously one time a week. Dx: Type 2 diabetes uncontrolled, Inject dose once per week. Discard Pen After Clobetasol Propionate (TEMOVATE) 0.05 % external solution Apply 1 application to affected area oncedaily as needed (scalp rash). albuterol HFA (VENTOLIN HFA) 90 mcg/actuation inhaler Inhale 2 Puffs as instructed every 4 hours asneeded for wheezing/shortness of breath. losartan (COZAAR) 50 mg tablet Take 1 tablet by mouth once daily. ergocalciferol 50,000 unit capsule (VITAMIN D2, DRISDOL) Take 1 capsule by mouth one time a week. SYNTHROID 137 mcg tablet take 1 tablet by mouth once daily ON AN EMPTY STOMACH FOR THYROID DULoxetine (CYMBALTA) 60 mg capsule TAKE 1 CAPSULE DAILY WITH 30MG CAPSULES TO TOTAL 90MGA DAY (Patient taking differently: Take by mouth once daily. TAKE 1 CAPSULE DAILY WITH 30MG CAPSULES TO TOTAL 90MGA DAY) buPROPion (WELLBUTRIN) 100 mg tablet Take 2 tablets to total 200 mg in the morning and 1 tablet in the evening, total of 300 mg a day benzonatate (TESSALON PERLES) 100 mg capsule Take 1 capsule by mouth three times daily as needed for cough. Magnesium Oxide-Mg Amino Acid Chelate (MAGNESIUM) 300 mg cap Take 300 mg by mouth once daily. KRILL OIL ORAL Take 1 capsule by mouth one time a week. ferrous sulfate 325 mg (65 mg iron) tablet Take 325 mg by mouth daily with breakfast. SUMAtriptan (IMITREX) 25 mg tablet TAKE 1 TABLET NEEDED FORMIGRAINE HEADACHE (SEE ADMINISTRATIONINSTRUCTIONS) omeprazole (PRILOSEC) 20 mg capsule Take 20 mg by mouth once daily. cyanocobalamin (VITAMIN B-12) 1,000 mcg tab Take 1,000 mcg by mouth once daily. amoxicillin-clavulanate potassium (AUGMENTIN) 875-125 mg per tablet Take 1 tablet by mouth two times a day for 7 days. predniSONE (DELTASONE) 20 mg tablet Take 2 tablets by mouth once daily for 4 days. Take daily with food. zolpidem (AMBIEN) 5 mg tablet Take 1 tablet by mouth at bedtime as needed for sedation for up to 30days. FAMILY HISTORY Problem Relation Age of Onset Osteoporosis Mother other (Hepatitis C) Mother Colon Cancer Father other (myasthenia gravis) Father Aneurysm Father Osteoporosis Sister No Known Problems Brother No Known Problems Brother Aneurysm Brother Cancer Brother bladder other (atrial fib) Brother COPD Brother No Known Problems Maternal Grandmother Stroke Maternal Grandfather Social History Tobacco Use Smoking status: Former Smokeless tobacco: Never Tobacco comments: Quit long time ago Vaping Use Vaping Use: Never used Substance Use Topics Alcohol use: Yes Comment: Occasionally Drug use: No Objective Physical Exam Vitals and nursing note reviewed. Constitutional: General: She is not in acute distress. Appearance: Normal appearance. She is not ill-appearing. HENT: Right Ear: Tympanic membrane, ear canal and external ear normal. Left Ear: Tympanic membrane, ear canal and external ear normal. Nose: Mucosal edema, congestion and rhinorrhea present. Mouth/Throat: Pharynx: Uvula midline. No oropharyngeal exudate or posterior oropharyngeal erythema. Cardiovascular: Rate and Rhythm: Normal rate and regular rhythm. Heart sounds: Normal heart sounds. Pulmonary: Effort: Pulmonary effort is normal. No respiratory distress. Breath sounds: Normal breath sounds. No wheezing or rales. Musculoskeletal: Cervical back: Neck supple. Lymphadenopathy: Cervical: No cervical adenopathy. Skin: General: Skin is warm and dry. Findings: No erythema or rash. Neurological: Mental Status: She is alert. ASSESSMENT/PLAN: 1. Sinobronchitis - ICD9: 473.9, 490, ICD10: J32.9, J40 - Will begin treatment with as per antibiotic as written, see orders - Supportive care with plenty of fluids, rest, and analgesia prn. - AMOXICILLIN 875 MG-POTASSIUM CLAVULANATE 125 MG TABLET -prednisone as prescribed - Follow-up with your PCP in 3-5 days if symptoms have not improved or sooner if symptoms worsen - Discussed red flags and need for immediate medical evaluation if any occur. - Discussed supportive care treatment with fluids, rest and analgesia. - Discussed expected course of illness Laura Vazquez APRN.CNP documented in this encounterMemorial Hospital02-01-2024 Instructions* Patient Instructions* Laura Vazquez APRN.CNP - 10/17/2023 11:34 AM EST ASSESSMENT/PLAN: 1. Sinobronchitis - ICD9: 473.9, 490, ICD10: J32.9, J40 - Will begin treatment with as per antibiotic as written, see orders - Supportive care with plenty of fluids, rest, and analgesia prn. - AMOXICILLIN 875 MG-POTASSIUM CLAVULANATE 125 MG TABLET -prednisone as prescribed - Follow-up with your PCP in 3-5 days if symptoms have not improved or sooner if symptoms worsen - Discussed red flags and need for immediate medical evaluation if any occur. - Discussed supportive care treatment with fluids, rest and analgesia. - Discussed expected course of illness Laura Vazquez APRN.CNP ACUTE BRONCHITIS: You have acute bronchitis. This means the airway passages in your lungs are inflamed. Bronchitis may be caused by viruses or bacteria. Inhaling cigarette smoke will always make it worse. Exposure to irritating chemicals or second hand smoke as well as allergies can contribute to bronchitis. Repeat episodes of bronchitis may cause lifelong lung problems. Acute bronchitis is usually treated with rest, fluids, cough medicine, and possibly antibiotics or inhaled medicine to open up the small airways. It is very important that you avoid smoke and drink increased amounts of fluids. A cool air vaporizer can help thin bronchial secretions. This makes it easier to cough and clear your chest. If you are a cigarette smoker, consider using nicotine gum or skin patches to help you withdraw. Recovery from bronchitis is often slow, but you should start feeling better after 2-3 days of treatment. Please call your doctor or return here if you have any of the following symptoms: Increased fever, chills, or chest pain. Severe shortness of breath or bloody sputum. Do not improve after 3 days of proper treatment. documented in this encounterMemorial Hospital12-15-2023 Miscellaneous Notes* Telephone Encounter - Adali Matias Ma - 08/30/2023 3:38 PM EST Call to pt and notified her of results and recommendation from Provider, pt verbalized understanding. Adali Matias Ma * Telephone Encounter - Nury Alexander APRN.JUANA - 08/30/2023 3:07 PM EST Please let patient know that bone scan results show osteopenia. They need to be taking a daily calcium and Vitamin D3 supplement. *1200 mg - 1500 mg calcium per day *800 - 1000 International Units of vitamin D3 per day Nury Alexander APRN.JUANA documented in this encounterMemorial Hospital12-14-2023 Miscellaneous Notes* Telephone Encounter - Mariana Pacheco LPN - 08/29/2023 3:17 PM EST Phoned patient and left detailed message with notes below from Kavitha Hayes NP on patient voicemail. * Telephone Encounter - Kavitha Hayes APRN.CNP - 08/29/2023 2:21 PM EST No changes needed. Just wanting her to to get at least 2000 units of a vitamin D daily which she is already getting. Kavitha Hayes APRN.ASSOCIATE SOFTWARE APPLICATION ENGINEER * Telephone Encounter - Destiny Rollins LPN - 08/29/2023 10:17 AM EST Spoke with pt and information listed below given. Pt verbalizes understanding. Pt reports she takes Vit D2 50,000 units 1 per week and takes Vit D3 not certain the dose on this. Which Vit D you are referring to in message below. Pt is asking. Please advise pt. Okay to leave a detailed message. Destiny Rollins LPN * Telephone Encounter - Debi Glover MA - 08/29/2023 9:47 AM EST Unable to reach patient. Left VM to return call to office. Please read below and advise. Debi Glover MA * Telephone Encounter - Juan Locke DO - 08/28/2023 8:14 PM EST Please inform patient that her bone density is showing some osteopenia changes, the most is in the left hip. Would recommend taking her vitamin D at 2000 international unit(s) a day and calcium 1200 mg a day, in 2 divided up doses with a meal. Also need for weight bearing exercise 3-5 days a week for 30 minutes. Recheck bone density in 2 years. Juan Locke DO * Telephone Encounter - Destiny Rollins LPN - 08/28/2023 11:54 AM EST Pt calling to check status on Bone Density Results. Please advise pt. Destiny Rollins LPN * Telephone Encounter - Catrina Sutton RN - 08/20/2023 4:47 PM EST Patient calling and states she went online and completed information regarding interest in a DexcomCGM. States she received information back from them and more information and a script will eventually be needed. Patient states she will contact the online company and get the fax # and any other information needed and then will call back to PCP office with next steps. Catrina Sutton RN documented in this encounterMemorial Hospital12-11-2023 Miscellaneous Notes* Telephone Encounter - Manda Ventura - 08/26/2023 10:36 AM EST Pt scheduled on 09/12 Spoke with pt and scheduled follow OV * Telephone Encounter - Casandra Haskins - 08/21/2023 12:05 PM EST Check out comments: Bone marrow biopsy at [facility] when able. OV about 2-3 weeks after biopsy. Epic chat sent to IR schedulers to schedule. Please watch her schedule and schedule OV once BMBX isscheduled. Casandra Haskins documented in this encounterMemorial Hospital12-11-2023 History of Present illness Narrative* Noreen Hewitt - 08/26/2023 9:54 AM EST Third outreach to patient attempt: 08/26/2023 No reason identified, Patient contacted: Spoke with patient Discussion on potential statin use consists of - Discussed statin benefits in reducing risk of heart attack and stroke. - Pt currently on Krill oil once weekly with last LDL within normal range (LDL 63 12/05/22). - Reported pravastatin discontinued ~01/08/2022 due to surgery and was told by doctor not to take itanymore. - Has had changes with T2DM medications, doesn't want to add another medication on top of them. Reported that she would like to not take it if [she] doesn't have to. Outcome of review: Declined by patient The Patient verbalizes understanding and denies further questions/concerns at this time. Ashley Andersen Pharmacist * Noreen Hewitt - 08/23/2023 12:03 PM EST Second outreach to patient attempt: 08/23/2023 Patient contacted: No answer, left voicemail Outcome of review: Pending outreach to patient Ashley Andersen Pharmacist * Noreen Hewitt - 08/15/2023 3:46 PM EST Pt chart reviewed as part of population health initiative focused on statin use in patients with diabetes (DM) or cardiovascular disease (CVD). Barbara Meneses is identified through data from [employer] (insurer) as a potential candidate for statin therapy with no prescriptions claims processed for a statin medication in this calendar year. Chart Review The following case components were reviewed for current or historic statin use: Confirmed diabetes and or CVD: Yes Current/Active med list includes a statin: No IF NO, reason identified (contraindication, intolerance, exclusion, etc.): None identified ALLERGIES Allergen Reactions Mold Unknown Adhesive Tape (Yamel* Rash Januvia [Sitaglipti* Intolerance GI upset, aching of muscles, headaches Latex Itching PAST MEDICAL HISTORY Diagnosis Date Albuminuria 08/2015 Depression History of nephrectomy Hypertension Iron deficiency anemia secondary to inadequate dietary iron intake 05/07/2023 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 Signature: Rhona Aiken RPh documented in this encounterMemorial Hospital12-07-2023 Miscellaneous Notes* Telephone Encounter - Moraima Sullivan - 08/22/2023 2:35 PM EST Pt informed, verbalized understanding. Moraima Sullivan MA * Telephone Encounter - Kavitha Hayes APRN.CNP - 08/22/2023 2:30 PM EST Please call patient and let her know that: There are no concerns or evidence of malignancy from recent mammogram. Continue with the recommended 1 year screening mammograms. Thank you, Kavitha Hayes APRN.ASSOCIATE SOFTWARE APPLICATION ENGINEER documented in this encounterMemorial Hospital12-07-2023 Miscellaneous Notes* Letter - Coordinator, Mammography - 08/22/2023 6:44 AM EST August 22, 2023 PID: [id number] Barbara GómezMagui Meneses [address] [place] [address] Dear Callie, We are pleased to inform you that the results of your recent breast imaging exam on 08/21/2023 are normal. Early detection of cancer is very important. We also understand recommendations regarding breast cancer screening are controversial. Please discuss with your primary care provider which strategy is best for you and whether a mammogram is right for you. Your imaging studies and [facility] and are available for your continuing care. Thank you for allowing us to help in meeting your health care needs. Sincerely, Dr. Michel Interpreting Radiologist [facility] (Normal over 40) documented in this encounterMemorial Hospital12-06-2023 History of Present illness Narrative* Clayton Novak DO - 08/21/2023 11:47 AM EST Hematologic problem(s): 1) WAQAR. 2) Thrombocytopenia. 3) Splenomegaly likely from portal hypertension. Has esophageal varices. HPI: The patient is a 68-year-old female with a past medical history significant for frequent headaches, cervical spine degenerative disease with radiculopathy, hypertension, obstructive sleep apnea,elevated LFTs, diverticulitis, internal hemorrhoids, rectal bleeding, irritable bowel syndrome, type 2 diabetes, hypothyroidism, dyslipidemia, right shoulder subacromial bursitis, generalized anxietydisorder, major depressive disorder with single episode in remission, history of nephrectomy, panicattacks, fatigue and vitamin D deficiency. Started having rectal bleeding about 6 months prior to initial consultation here. Blood every time wipes after BM. Occasional blood in toilet. Formed to loose stools. EGD by Dr. Ben Garcia 02/22/2023. Patient was found to have LA grade a (1 or more mucosal breaks less than 5 mm, not extending between tops of 2 mucosal folds) esophagitis with no bleeding observed 35 cm from the incisors. A mild Schatzki ring was found at the GE junction. 1 column of nonbleeding grade 2 varices were found in the lower third esophagus 33 cm from the incisors. No stigmata of recent bleeding were evident and no red batsheva signs were present. There was diffuse moderately erythematous mucosa without bleeding in the greater curvature of the stomach. Biopsies were obtained. The examined duodenum was normal. Biopsies were obtained. There was a medium size hiatal hernia. Middle thirdesophagus was normal biopsies were obtained. Colonoscopy performed same day revealed nonthrombosed external hemorrhoids, nonthrombosed internal hemorrhoids and internal hemorrhoids that prolapse with straining but required manual replacement into the anal canal on digital rectal exam. Diverticulosis in the sigmoid and descending colon. One 5 mm polyp in the proximal sigmoid colon that was removed with cold biopsy. Inflamed mucosa in the proximal rectum biopsied. Pathology: A. Duodenum, biopsy: A fragment of duodenal mucosa, no pathologic diagnosis. B. Antrum, biopsy: Mild gastritis. See microscopic description and comment. C. Distal esophagus, biopsy: Fragments of gastroesophageal mucosa with moderate chronic inflammation. Intestinal metaplasia (goblet cell metaplasia) not identified. See comment. D. Greater curvature, biopsy: Minimal gastritis. See microscopic description. E. Mid esophagus, biopsy: A fragment of gastroesophageal mucosa with chronic inflammation. Intestinal metaplasia (goblet cell metaplasia) not identified. See comment. F. Colon, random biopsy: Fragments of colonic mucosa, no pathologic diagnosis. G. Proximal sigmoid polyp, biopsy: Hyperplastic polyp. H. Rectal inflammation, biopsy: A fragment of colonic mucosa with focal ulceration and acute inflammation. GERD--omeprazole, a long, long time. On oral iron 4-6 months. Tolerates well. 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 No children. Two miscarriages. Used to have menorrhagia. Diagnosed with endometriosis and had hysterectomy at about age 29. Previous right nephrectomy. Congenital atrophy. Previous ultrasound liver and spleen demonstrated the liver had a coarse echotexture with increasedechogenicity and a smooth surface contour with no lesions. Splenomegaly with spleen measuring 14.2 cm. There was a splenic calcification measuring 9 x 6 x 9 mm. No other focal lesion. Presents for ongoing hematologic management. Interim history: Did not require parenteral iron. Continues on oral iron. Still having rectal bleeding. Red blood in toilet bowl and wiping. Alternates diarrhea with constipation. More diarrhea, a lot of things I eat go straight through me. Normal appetite. No nausea. Frequent reflux--controlled if takes OTC PPI consistently. No other bleeding issues. No dyspnea with usual activities. Still mild dyspnea with stairs. 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 Larkin HYSTERECTOMY HX 1993 Total PAST SURGICAL HISTORY OF 1974 right kidney removed THYROIDECTOMY SUBTOTAL/PARTIAL 1991 ALLERGIES Allergen Reactions Mold Unknown Adhesive Tape (Yamel* Rash Januvia [Sitaglipti* Intolerance GI upset, aching of muscles, headaches Latex Itching Current Outpatient Medications Medication Sig amoxicillin-clavulanate potassium (AUGMENTIN) 875-125 mg per tablet Take 1 tablet by mouth two times a day for 7 days. dulaglutide (TRULICITY) 0.75 mg/0.5 mL pen injector Inject 0.75 mg subcutaneously one time a week. Dx: Type 2 diabetes uncontrolled, Inject dose once per week. Discard Pen After Clobetasol Propionate (TEMOVATE) 0.05 % external solution Apply 1 application to affected area oncedaily as needed (scalp rash). zolpidem (AMBIEN) 5 mg tablet Take 1 tablet by mouth at bedtime as needed for sedation for up to 30days. albuterol HFA (VENTOLIN HFA) 90 mcg/actuation inhaler Inhale 2 Puffs as instructed every 4 hours asneeded for wheezing/shortness of breath. losartan (COZAAR) 50 mg tablet Take 1 tablet by mouth once daily. ergocalciferol 50,000 unit capsule (VITAMIN D2, DRISDOL) Take 1 capsule by mouth one time a week. SYNTHROID 137 mcg tablet take 1 tablet by mouth once daily ON AN EMPTY STOMACH FOR THYROID DULoxetine (CYMBALTA) 60 mg capsule TAKE 1 CAPSULE DAILY WITH 30MG CAPSULES TO TOTAL 90MGA DAY (Patient taking differently: Take by mouth once daily. TAKE 1 CAPSULE DAILY WITH 30MG CAPSULES TO TOTAL 90MGA DAY) buPROPion (WELLBUTRIN) 100 mg tablet Take 2 tablets to total 200 mg in the morning and 1 tablet in the evening, total of 300 mg a day Magnesium Oxide-Mg Amino Acid Chelate (MAGNESIUM) 300 mg cap Take 300 mg by mouth once daily. KRILL OIL ORAL Take 1 capsule by mouth one time a week. ferrous sulfate 325 mg (65 mg iron) tablet Take 325 mg by mouth daily with breakfast. SUMAtriptan (IMITREX) 25 mg tablet TAKE 1 TABLET NEEDED FORMIGRAINE HEADACHE (SEE ADMINISTRATIONINSTRUCTIONS) omeprazole (PRILOSEC) 20 mg capsule Take 20 mg by mouth once daily. cyanocobalamin (VITAMIN B-12) 1,000 mcg tab Take 1,000 mcg by mouth once daily. empagliflozin (JARDIANCE) 25 mg tablet Take 1 tablet by mouth once daily. Take 1 tablet once daily in the morning (Patient not taking: Reported on 08/21/2023) benzonatate (TESSALON PERLES) 100 mg capsule Take 1 capsule by mouth three times daily as needed for cough. (Patient not taking: Reported on 08/19/2023) blood sugar diagnostic (BLOOD GLUCOSE TEST) test strip Test blood sugar(s) 1 times daily. Dx: Type 2 DM - Uncontrolled E11.65 Insulin: No Lancets lancets Test blood sugar(s) 1 times daily. Dx: Type 2 DM - Uncontrolled E11.65 Insulin: No No current facility-administered medications for this visit. Social History Tobacco Use Smoking status: Former Smokeless tobacco: Never Tobacco comments: Quit long time ago Vaping Use Vaping Use: Never used Substance Use Topics Alcohol use: Yes Comment: Occasionally Drug use: No Family History Problem Relation Age of Onset Osteoporosis Mother other (Hepatitis C) Mother Colon Cancer Father other (myasthenia gravis) Father Aneurysm Father Osteoporosis Sister No Known Problems Brother No Known Problems Brother Aneurysm Brother Cancer Brother bladder other (atrial fib) Brother COPD Brother No Known Problems Maternal Grandmother Stroke Maternal Grandfather ROS: Constitutional: No fever. No drenching night sweats. Normal appetite. No unexplained weight loss. Neuro: No vertigo, dizziness. Mild imbalance. No symptoms of sensory neuropathy. HEENT: No recent change in voice, vision or hearing. Resp: No wheeze or hemoptysis. Occasional cough from dust or outside pollen. CVS: No exertional chest pain, PND or orthopnea. Ankles swell if walks a lot. No painful or tender varicose veins. GI: No dysphagia or odynophagia. : No dysuria or gross hematuria. Stress incontinence. Endo: No hot flashes. No polyuria or polydipsia. No heat or cold intolerance. Musculoskeletal: No bone, joint and muscular pain. Back hurst is stands for a while. Derm: No history of jaundice. No diffuse pruritis. Heme: No unusual bleeding and unexplained bruising. Psych: Normal mood. PHYSICAL EXAM: Vitals: Blood pressure 134/83, pulse 83, temperature 36.8 C (98.2 F), weight 102.1 kg (225 lb), SpO2 99%. Well-appearing and in no acute distress. EYES: Sclerae are anicteric bilaterally. LYMPHATIC: There is no palpable cervical or supraclavicular adenopathy. RESPIRATORY: Inspiratory breath sounds are of normal intensity in all leong. No rales, wheezes or rhonchi. CARDIOVASCULAR: Rhythm is regular. ABDOMEN: The abdomen is nondistended. No splenomegaly or hepatomegaly. No tenderness. Extremities: No swelling or edema. SKIN: No jaundice. LABS: Component Latest Ref Rng & Units 07/27/2023 WBC 3.70 - 11.00 k/uL 4.00 RBC 3.90 - 5.20 m/uL 4.39 Hemoglobin 11.5 - 15.5 g/dL 11.8 Hematocrit 36.0 - 46.0 % 37.2 MCV 80.0 - 100.0 fL 84.7 MCH 26.0 - 34.0 pg 26.9 MCHC 30.5 - 36.0 g/dL 31.7 RDW-CV 11.5 - 15.0 % 15.1 (H) Platelet Count 150 - 400 k/uL 94 (L) MPV 9.0 - 12.7 fL 11.5 Neut% % 56.4 Abs Neut (ANC) 1.45 - 7.50 k/uL 2.26 Lymph% % 26.0 Abs Lymph 1.00 - 4.00 k/uL 1.04 [place]% % 9.3 Abs [place] <0.87 k/uL 0.37 Eosin% % 6.8 Abs Eosin <0.46 k/uL 0.27 Baso% % 1.0 Abs Baso <0.11 k/uL 0.04 Immature Gran % % 0.5 IMMATURE GRANS (ABS) <0.10 k/uL <0.03 NRBC /100 WBC 0.0 Absolute nRBC <0.01 k/uL <0.01 DTYPE Auto Iron 41 - 186 ug/dL 55 TIBC 232 - 386 ug/dL 359 Transferrin Saturation 15.0 - 57.0 % 15.3 Ferritin 14.7 - 205.1 ng/mL 16.1 ASSESSMENT/PLAN: (D50.9) Iron deficiency anemia, unspecified iron deficiency anemia type (primary encounter diagnosis) Assessment: -WAQAR secondary to chronic blood loss and malabsorption due to chronic gastritis and PPI use. -Tolerates oral iron well. -Iron had been increasing but now lower. Plan: -Continue oral iron. -Follow up with Dr. Garcia for treatment of rectal bleeding. -Recheck iron levels when seen after bone marrow biopsy. 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 -Not on anticoagulation or antiplatelet therapy. -Slowly worsening thrombocytopenia over the last several years. -Discussed with her importance of ruling out underlying bone marrow disorder or low-grade lymphoma. Plan: -Hold krill oil. -Bone marrow biopsy under CT guidance. Portions of this documentation were copied and pasted from previous office visit notes in order to provide a cohesive continuity of the history. The note has been reviewed and edited and updated as necessary. I spent a total of 20 minutes on the date of the service which included preparing to see the patient, [id number] patient care, completing clinical documentation, obtaining and/or reviewing separately obtained history, performing a medically appropriate examination, counseling and educating the pat ient/family/caregiver, ordering medications, tests, or procedures, communicating with other HCPs (not separately reported), and communicating results to the patient/family/caregiver. Clayton Novak DO documented in this encounter[facility]12-[facility]23 History of Present illness Narrative* Sriram Davis RT(R) - 08/21/2023 9:30 AM EST Radiology Service Progress Note PATIENT NAME: Barbara Meneses DATE OF SERVICE: August 21, 2023 TIME: 9:40 AM PATIENT IDENTITY VERIFICATION COMPLETED USING TWO (2) IDENTIFIERS: Name and Date of confirmedby patient verbally. FALL SCREENING: Has the patient had 2 falls in the last year or 1 fall with injury or currently using an Ambulatory Assistive Device (Walker, Cane, Wheelchair, Crutches, etc.)? No PATIENT GENDER DATA: Female. status: : No status: NO. PATIENT RELEVANT IMPLANT DATA REVIEWED: Not Applicable RADIOLOGY DEPARTMENT: Bone Density PERIPHERAL IV DATA: Not applicable SIGNED BY: RT Angelica(R) August 21, 2023 9:40 AM documented in this encounterMem[facility]12-04-2023 History of Present illness Narrative* Nita Howard APRN.[facility] - 08/19/2023 3:12 PM EST CC: Patient presents with: Sinus Problem: sinus pressure, drainage, cough x 1 week HPI: Barbara Meneses is a 68 year old female who presents to the office with complaint of head congestion, cough, nonproductive, and sinus symptoms for a week. Symptoms are worsening Associated symptoms includes nasal congestion and facial pain/pressure. Denies fever, nausea, vomiting , and diarrhea. Treatments tried include nothing so far. with no relief of symptoms. Sick contacts: unknown. History of asthma, frequent episodes of bronchitis, chronic bronchitis, bronchiectasis or COPD: No Smoker: No Seasonal/environmental allergies: No The ROS is otherwise negative. The patient's pmh, medications, allergies, and past visits are reviewed. PHYSICAL EXAM: BP 136/78 Pulse 88 Temp 36.1 C (96.9 F) Resp 16 Wt 102.5 kg (226 lb) SpO2 98% BMI 38.58kg/m General appearance: alert, cooperative, pleasant, in no acute distress Head: Normocephalic Eyes: EOM's intact, conjunctiva pink and moist, no icterus, sclera white, non-injected Ears: Right ear: External ear/canal- Normal, TM - clear with good landmarks. Left ear: External ear/canal- Normal, TM - clear with good landmarks Oropharynx:moist without lesions, No erythema, exudates or tonsillar hypertrophy. Heart: Negative. RRR without obvious murmur, gallop, or rubs. No ectopy. Lungs: clear to auscultation, without rales or wheeze, good air exchange PAST MEDICAL HISTORY Diagnosis Date Albuminuria 08/2015 Depression History of nephrectomy Hypertension Iron deficiency anemia secondary to inadequate dietary iron intake 05/07/2023 Iron malabsorption 05/07/2023 Type 2 diabetes, uncontrolled, with renal manifestation PAST SURGICAL HISTORY Procedure Laterality Date ASPIRATION BIOPSY, THYROID GLAND Right 07/15/2017 Dr. Larkin HYSTERECTOMY HX 1993 Total PAST SURGICAL HISTORY OF 1974 right kidney removed THYROIDECTOMY SUBTOTAL/PARTIAL 1991 ALLERGIES Mold, Adhesive Tape (Rosins), Januvia [Sitagliptin], and Latex MEDICATIONS dulaglutide (TRULICITY) 0.75 mg/0.5 mL pen injector Inject 0.75 mg subcutaneously one time a week. Dx: Type 2 diabetes uncontrolled, Inject dose once per week. Discard Pen After Clobetasol Propionate (TEMOVATE) 0.05 % external solution Apply 1 application to affected area oncedaily as needed (scalp rash). empagliflozin (JARDIANCE) 25 mg tablet Take 1 tablet by mouth once daily. Take 1 tablet once daily in the morning albuterol HFA (VENTOLIN HFA) 90 mcg/actuation inhaler Inhale 2 Puffs as instructed every 4 hours asneeded for wheezing/shortness of breath. losartan (COZAAR) 50 mg tablet Take 1 tablet by mouth once daily. ergocalciferol 50,000 unit capsule (VITAMIN D2, DRISDOL) Take 1 capsule by mouth one time a week. SYNTHROID 137 mcg tablet take 1 tablet by mouth once daily ON AN EMPTY STOMACH FOR THYROID DULoxetine (CYMBALTA) 60 mg capsule TAKE 1 CAPSULE DAILY WITH 30MG CAPSULES TO TOTAL 90MGA DAY buPROPion (WELLBUTRIN) 100 mg tablet Take 2 tablets to total 200 mg in the morning and 1 tablet in the evening, total of 300 mg a day Magnesium Oxide-Mg Amino Acid Chelate (MAGNESIUM) 300 mg cap Take 300 mg by mouth once daily. KRILL OIL ORAL Take 1 capsule by mouth one time a week. blood sugar diagnostic (BLOOD GLUCOSE TEST) test strip Test blood sugar(s) 1 times daily. Dx: Type 2 DM - Uncontrolled E11.65 Insulin: No ferrous sulfate 325 mg (65 mg iron) tablet Take 325 mg by mouth daily with breakfast. SUMAtriptan (IMITREX) 25 mg tablet TAKE 1 TABLET NEEDED FORMIGRAINE HEADACHE (SEE ADMINISTRATIONINSTRUCTIONS) Lancets lancets Test blood sugar(s) 1 times daily. Dx: Type 2 DM - Uncontrolled E11.65 Insulin: No omeprazole (PRILOSEC) 20 mg capsule Take 20 mg by mouth once daily. cyanocobalamin (VITAMIN B-12) 1,000 mcg tab Take 1,000 mcg by mouth once daily. amoxicillin-clavulanate potassium (AUGMENTIN) 875-125 mg per tablet Take 1 tablet by mouth two times a day for 7 days. zolpidem (AMBIEN) 5 mg tablet Take 1 tablet by mouth at bedtime as needed for sedation for up to 30days. benzonatate (TESSALON PERLES) 100 mg capsule Take 1 capsule by mouth three times daily as needed for cough. (Patient not taking: Reported on 08/19/2023) FAMILY HISTORY Problem Relation Age of Onset Osteoporosis Mother other (Hepatitis C) Mother Colon Cancer Father other (myasthenia gravis) Father Aneurysm Father Osteoporosis Sister No Known Problems Brother No Known Problems Brother Aneurysm Brother Cancer Brother bladder other (atrial fib) Brother COPD Brother No Known Problems Maternal Grandmother Stroke Maternal Grandfather Social History Tobacco Use Smoking status: Former Smokeless tobacco: Never Tobacco comments: Quit long time ago Vaping Use Vaping Use: Never used Substance Use Topics Alcohol use: Yes Comment: Occasionally Drug use: No ASSESSMENT/PLAN: 1. Rhinosinusitis - ICD9: 473.9, ICD10: J32.9 - AMOXICILLIN 875 MG-POTASSIUM CLAVULANATE 125 MG TABLET Prescription instructions reviewed with patient as applicable. Potential red flag symptoms discussed with the patient. Reviewed appropriate action plan to take if red flag symptoms occur. Patient agreeable to treatment plan. Nita Howard APRN.[employer] documented in this encounterMemorial Hospital12-04-2023 Miscellaneous Notes* Telephone Encounter - Mariana Pacheco LPN - 08/19/2023 1:27 PM EST Patient returned call and went over results, notes from Dr Locke with understanding. * Telephone Encounter - Christine Campbell RN - 08/19/2023 8:24 AM EST Called and left a voicemail for the Patient to call back and ask for a nurse to receive the providers message. Christine Campbell RN * Telephone Encounter - Christine Campbell RN - 08/15/2023 8:13 AM EST Called and left a voicemail for the Patient to call back and ask for a nurse to receive the providers message. Christine Campbell RN * Telephone Encounter - Juan Locke DO - 08/14/2023 8:22 PM EST Please inform patient that her hemoglobin is in a normal range now at 11.8 (low end of normal) and her iron levels are still low normal but no longer out of range. The B12 levels in Nov are in the mid 400s. She can consider oral supplement of 1000 mcg a day of vitamin B12 daily but don't think the vitamin B12 will fix her blood count since this isn't in deficient range. Juan Locke DO * Telephone Encounter - Christine Campbell RN - 08/13/2023 3:19 PM EST Pt called in and was asking about B12 shots. She said she had talked with the provider about these on her appointment on 07/27/23. She was asking if the B12 would help with her anemia to stop the bleeding and help with the fatigue. She said she takes the iron and it doesn't help. Pt reports she called Dr Ben Garcia's office and left a message for him. She is just waiting on them to get back to her about making an appointment and if he is willing to do the surgery. The Pts states Dr Locke had written the name of a provider on her paper if Dr Garcia will not do the surgery. documented in this encounterMemorial Hospital11-16-2023 Miscellaneous Notes* Telephone Encounter - Casandra Haskins - 08/01/2023 3:[address] Locke's request below, patient is scheduled with follow up with Dr. Novak on 08/21. Additionally, patient is scheduled for Bone Density and Mammogram. Casandra Haskins * Telephone Encounter - Kavitha Hayes APRN.CNP - 08/01/2023 3:19 PM EST Orders are placed. Please schedule. Thank you, Kavitha Hayes APRN.JUANA * Telephone Encounter - Lynnette Masters RN - 08/01/2023 3:09 PM EST Please call patient at [phone] to schedule mammogram and bone density once orders are placed. Lynnette Masters RN * Telephone Encounter - Lynnette Masters RN - 08/01/2023 2:52 PM EST Patient calls and notified of results and providers instructions. Patient verbalizes understanding. Patient transferred to schedule. Patient started trulicity today. Patient requests order for mammogram and bone density. Mammogram already ordered. Pended bone density. Lynnette Masters RN * Telephone Encounter - Jennifer Braga LPN - 08/01/2023 11:06 AM EST TC to pt. LM to call office, ask for triage nurse to get results. Jennifer Braga LPN * Telephone Encounter - Juan Locke DO - 07/31/2023 9:40 PM EST Please inform patient that her iron levels remain low normal and platelet levels are lower. Needs follow up with Hematology Also her a1c is too high at >9% Did she start her trulicity prescribed? Juan Locke DO documented in this encounterMemorial Hospital11-15-2023 Miscellaneous Notes* Telephone Encounter - Jennifer Campbell RN - 07/31/2023 10:34 AM EST Pt notified. Verbalizes understanding. * Telephone Encounter - Glory Escalante MA - 07/31/2023 8:59 AM EST Left message for pt to call back. Glory Escalante MA * Telephone Encounter - Glory Escalante MA - 07/31/2023 8:57 AM EST ----- Message from Yonathan Willoughby MD sent at 07/31/2023 8:33 AM EST ----- Urine culture did not show a clear infection. Follow up with urology if symptoms persist. documented in this encounterMemorial Hospital11-13-2023 History of Present illness Narrative* Yonathan Willoughby MD - 07/29/2023 4:14 PM EST Patient presents with: Urinary Frequency: burning and pain with urination x 1 week HPI: Symptoms for 1 week, she finds it hard to differentiate chronic urinary symptoms so is here for UTIevaluation. Dysuria: Yes Frequency: Yes Hematuria: No Irritation/discharge: No Nausea: No Fever or chills: No Back pain: chronic Abdominal pain: No Prior UTI: Yes, but cultures often show mixed or inadequate growth. Sees urology and has had therapy for persistent urinary symptoms. Personal history of kidney stones: No Family history of kidney stones: Yes DM: most recent A1c 9.3, Taking Jardiance. MEDICATIONS: Current Outpatient Medications Medication Sig dulaglutide (TRULICITY) 0.75 mg/0.5 mL pen injector Inject 0.75 mg subcutaneously one time a week. Dx: Type 2 diabetes uncontrolled, Inject dose once per week. Discard Pen After Clobetasol Propionate (TEMOVATE) 0.05 % external solution Apply 1 application to affected area oncedaily as needed (scalp rash). empagliflozin (JARDIANCE) 25 mg tablet Take 1 tablet by mouth once daily. Take 1 tablet once daily in the morning albuterol HFA (VENTOLIN HFA) 90 mcg/actuation inhaler Inhale 2 Puffs as instructed every 4 hours asneeded for wheezing/shortness of breath. losartan (COZAAR) 50 mg tablet Take 1 tablet by mouth once daily. ergocalciferol 50,000 unit capsule (VITAMIN D2, DRISDOL) Take 1 capsule by mouth one time a week. SYNTHROID 137 mcg tablet take 1 tablet by mouth once daily ON AN EMPTY STOMACH FOR THYROID DULoxetine (CYMBALTA) 60 mg capsule TAKE 1 CAPSULE DAILY WITH 30MG CAPSULES TO TOTAL 90MGA DAY buPROPion (WELLBUTRIN) 100 mg tablet Take 2 tablets to total 200 mg in the morning and 1 tablet in the evening, total of 300 mg a day Magnesium Oxide-Mg Amino Acid Chelate (MAGNESIUM) 300 mg cap Take 300 mg by mouth once daily. KRILL OIL ORAL Take 1 capsule by mouth one time a week. blood sugar diagnostic (BLOOD GLUCOSE TEST) test strip Test blood sugar(s) 1 times daily. Dx: Type 2 DM - Uncontrolled E11.65 Insulin: No ferrous sulfate 325 mg (65 mg iron) tablet Take 325 mg by mouth daily with breakfast. SUMAtriptan (IMITREX) 25 mg tablet TAKE 1 TABLET NEEDED FORMIGRAINE HEADACHE (SEE ADMINISTRATIONINSTRUCTIONS) Lancets lancets Test blood sugar(s) 1 times daily. Dx: Type 2 DM - Uncontrolled E11.65 Insulin: No omeprazole (PRILOSEC) 20 mg capsule Take 20 mg by mouth once daily. cyanocobalamin (VITAMIN B-12) 1,000 mcg tab Take 1,000 mcg by mouth once daily. zolpidem (AMBIEN) 5 mg tablet Take 1 tablet by mouth at bedtime as needed for sedation for up to 30days. benzonatate (TESSALON PERLES) 100 mg capsule Take 1 capsule by mouth three times daily as needed for cough. (Patient not taking: Reported on 07/29/2023) No current facility-administered medications for this visit. ALLERGIES: ALLERGIES Allergen Reactions Mold Unknown Adhesive Tape (Yamel* Rash Januvia [Sitaglipti* Intolerance GI upset, aching of muscles, headaches Latex Itching VITALS: BP 142/70 Pulse 116 Temp 36.5 C (97.7 F) Resp 18 Wt 103.9 kg (229 lb) SpO2 97% BMI 39.10 kg/m PHYSICAL EXAM: GEN: NAD HEENT: EOMI, conjunctiva clear, HEART: regular rate and rhythm, no murmurs LUNGS: clear to auscultation, no wheezes or crackles, no increased WOB ABDOMEN: Soft, nondistended, no masses, no suprapubic tenderness BACK: No CVA tenderness Component Latest Ref Rng & Units 07/27/2023 Protein, Total 6.3 - 8.0 g/dL 5.9 (L) Albumin 3.9 - 4.9 g/dL 3.7 (L) Calcium 8.5 - 10.2 mg/dL 8.9 Bilirubin, Total 0.2 - 1.3 mg/dL 0.8 Alkaline Phosphatase 34 - 123 U/L 144 (H) AST 13 - 35 U/L 26 ALT 7 - 38 U/L 20 Glucose 74 - 99 mg/dL 214 (H) BUN 7 - 21 mg/dL 9 Creatinine 0.58 - 0.96 mg/dL 0.72 Sodium 136 - 144 mmol/L 142 Potassium 3.7 - 5.1 mmol/L 3.8 Chloride 97 - 105 mmol/L 107 (H) CO2 22 - 30 mmol/L 24 Anion Gap 9 - 18 mmol/L 11 eGFR >=60 mL/min/1.73m 91 Hemoglobin A1C 4.3 - 5.6 % 9.3 (H) Estimated Average Glucose mg/dL 220 ASSESSMENT/PLAN: 1. Urinary frequency - ICD9: 788.41, ICD10: R35.0 - UA positive for glucose (expected from Jardiance) and trace blood only. - Send urine for culture - UA DIP, URINE (POC) - URINE CULTURE - will start treatment if significant growth. Yonathan Willoughby MD documented in this encounterMemorial Hospital11-11-2023 History of Present illness Narrative* Juan Locke DO - 07/27/2023 11:18 AM EST Patient presents with: Follow Up HPI: Barbara Meneses is a 68 year old female who presents to the office today for review of health conditions. Concerns today: She is willing to have labs drawn today Iron deficiency anemia, diagnosed recently and seen by Director [employer] Services specialist. Thinks related to her constantly irritated and bleeding hemorrhoids. Has been assessed by Dr. Larkin whom isn't comfortable doing her surgery. Has also been seen by Dr. Ben Garcia whom she hasn't followed back up on to see if he is willing to do surgery on her. Not improved with use of topical rectal creams and suppositories. She is not tolerating the Jardiance well for her diabetes- causing too many urinary symptoms and bladder pain. She is wondering an alternative. Wasn't well controlled on Januvia in the past. She is willing to start GLP1 agonist. Ms. Meneses has past history of diabetes. Since our last visit she denies excessive thirst or increased frequency of urination, chest pain or dyspnea , new or unusual visual symptoms, and low sugar/hypoglycemic reactions. Depression- no. Follows a diabetic diet most of the time. She is compliantwith medication(s) but notes side effects of many urinary symptoms.. She reports checking her glucose on a once a day schedule with sugars in the <200 range. Patient's last HgA1C was Hemoglobin A1C (%) Date Value 03/05/2023 7.2 12/05/2022 7.7 09/01/2021 8.6 06/26/2021 9.2 ) Last Ophthalmology exam was within the past 12 months Ms. Meneses reports history of hyperlipidemia. Current therapy includes diet and exercise. Denies side effects of muscle weakness or achiness. Her most recent lipid panels are reviewed. Cholesterol, Total (mg/dL) Date Value 12/05/2022 133 06/26/2021 141 HDL Cholesterol (mg/dL) Date Value 12/05/2022 53 06/26/2021 42 LDL Cholesterol (mg/dL) Date Value 12/05/2022 67 06/26/2021 80 Triglyceride (mg/dL) Date Value 12/05/2022 65 06/26/2021 95 Ms. Meneses indicates a history of hypertension and states that she is feeling well and denies any symptoms referable to elevated blood pressure. Specifically denies headache, chest pain, palpitations, dyspnea, and peripheral edema. Patient denies any side effects of her medication(s) and is compliant with their regimen. Last 3 Encounter BP Readings: Date: BP: 07/27/2023 124/70 05/07/2023 129/74 03/05/2023 116/60 She watches her diet for sodium, low fat and low cholesterol some of the time. She does not check BP's generally. Barbara gets minimal exercise. 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 Larkin HYSTERECTOMY HX 1994 Total PAST SURGICAL HISTORY OF 1975 right kidney removed THYROIDECTOMY SUBTOTAL/PARTIAL 1991 Social History Tobacco Use Smoking status: Former Smokeless tobacco: Never Tobacco comments: Quit long time ago Vaping Use Vaping Use: Never used Substance Use Topics Alcohol use: Yes Comment: Occasionally Drug use: No FAMILY HISTORY Problem Relation Age of Onset Osteoporosis Mother other (Hepatitis C) Mother Colon Cancer Father other (myasthenia gravis) Father Aneurysm Father Osteoporosis Sister No Known Problems Brother No Known Problems Brother Aneurysm Brother Cancer Brother bladder other (atrial fib) Brother COPD Brother No Known Problems Maternal Grandmother Stroke Maternal Grandfather Allergies: ALLERGIES Allergen Reactions Mold Unknown Adhesive Tape (Yamel* Rash Januvia [Sitaglipti* Intolerance GI upset, aching of muscles, headaches Latex Itching Current Meds: empagliflozin (JARDIANCE) 25 mg tablet Take 1 tablet by mouth once daily. Take 1 tablet once daily in the morning zolpidem (AMBIEN) 5 mg tablet Take 1 tablet by mouth at bedtime as needed for sedation for up to 30days. albuterol HFA (VENTOLIN HFA) 90 mcg/actuation inhaler Inhale 2 Puffs as instructed every 4 hours asneeded for wheezing/shortness of breath. losartan (COZAAR) 50 mg tablet Take 1 tablet by mouth once daily. ergocalciferol 50,000 unit capsule (VITAMIN D2, DRISDOL) Take 1 capsule by mouth one time a week. SYNTHROID 137 mcg tablet take 1 tablet by mouth once daily ON AN EMPTY STOMACH FOR THYROID DULoxetine (CYMBALTA) 60 mg capsule TAKE 1 CAPSULE DAILY WITH 30MG CAPSULES TO TOTAL 90MGA DAY buPROPion (WELLBUTRIN) 100 mg tablet Take 2 tablets to total 200 mg in the morning and 1 tablet in the evening, total of 300 mg a day benzonatate (TESSALON PERLES) 100 mg capsule Take 1 capsule by mouth three times daily as needed for cough. Magnesium Oxide-Mg Amino Acid Chelate (MAGNESIUM) 300 mg cap Take 300 mg by mouth once daily. KRILL OIL ORAL Take 1 capsule by mouth one time a week. blood sugar diagnostic (BLOOD GLUCOSE TEST) test strip Test blood sugar(s) 1 times daily. Dx: Type 2 DM - Uncontrolled E11.65 Insulin: No ferrous sulfate 325 mg (65 mg iron) tablet Take 325 mg by mouth daily with breakfast. SUMAtriptan (IMITREX) 25 mg tablet TAKE 1 TABLET NEEDED FORMIGRAINE HEADACHE (SEE ADMINISTRATIONINSTRUCTIONS) Lancets lancets Test blood sugar(s) 1 times daily. Dx: Type 2 DM - Uncontrolled E11.65 Insulin: No cyanocobalamin (VITAMIN B-12) 1,000 mcg tab Take 1,000 mcg by mouth once daily. omeprazole (PRILOSEC) 20 mg capsule Take 20 mg by mouth once daily. Review of Systems: The remainder of the review of systems is negative. PE: 07/27/23 1108 BP: 124/70 Pulse: 80 Resp: 20 Temp: 36.2 C (97.1 F) TempSrc: Left Tympanic Weight: 102.1 kg (225 lb) Gen: A&O, NAD, non-toxic appearing, appears fatigued, cooperative HEENT: NT/AC, PERRLA, EOMs intact b/l, nares clear and patent b/l, pharynx without erythema, exudate or lesions. Uvula midline. EACs without erythema or debris. TMs pearly land with intact landmarks b/l. Neck: supple, No cervical LAD, no thyromegaly, no carotid bruits CV: RRR, normal S1 and S2, no murmurs, no gallops, no rubs, Pulses 2+ and symmetric in UE and LE b/l Lungs: normal respiratory effort, CTA b/l, no wheezing or rhonchi or rales Abd: soft, obese, NT, ND, +BS, no hepatosplenomegaly MS: arthritis changes Neuro: CN II-XII intact b/l Skin: warm, dry, intact, erythematous macules/patches scattered and individual on scalp Foot exam: Monofilament wnl on right and left feet. ASSESSMENT/PLAN: 1. Uncontrolled type 2 diabetes mellitus with hyperglycemia (HCC) - ICD9: 250.02, ICD10: E11.65 (primary diagnosis) - Uncontrolled - Continue current medications - Start dulaglutide (Trulicity) and STOP Jardiance due to side effects - Blood glucose monitoring on a once daily schedule - Counseled on healthy diet and regular exercise - Discussed need for and benefit of weight loss. BMI 38.41 kg/(m^2) - DULAGLUTIDE 0.75 MG/0.5 ML SUBCUTANEOUS PEN INJECTOR - HGB A1C 2. Iron deficiency anemia, unspecified iron deficiency anemia type - ICD9: 280.9, ICD10: D50.9 Recheck labs, needs to follow up with general surgeon whom will perform hemorrhoidectomy since thisis causing her anemia - CBC + DIFF - FERRITIN BLD - COMP METABOLIC PANEL - VITAMIN B12 BLOOD - IRON + TIBC 3. Hypothyroidism, acquired - ICD9: 244.9, ICD10: E03.9 - Instructed patient on importance of taking on an empty stomach either first thing in the morning or at bedtime. 4. Internal hemorrhoids - ICD9: 455.0, ICD10: K64.8 Recheck labs, needs to follow up with general surgeon whom will perform hemorrhoidectomy since thisis causing her anemia - CONSULT TO COLO-RECTAL SURGERY 5. Rectal bleeding - ICD9: 569.3, ICD10: K62.5 Recheck labs, needs to follow up with general surgeon whom will perform hemorrhoidectomy since thisis causing her anemia - CONSULT TO COLO-RECTAL SURGERY 6. Scalp lesion - ICD9: 709.9, ICD10: L98.9 ? Dermatitis vs. Psoriasis scalp, rx as below, f/u with dermatology - CLOBETASOL 0.05 % SCALP SOLUTION Juan Locke DO To ER if develops chest pain, shortness of breath, or severe worsening of symptoms. Discussed risks, benefits, alternatives, and potential side effects of medications. Patient expressed understanding and agreed with the plan. Juan Locke DO [address] [place] [address] documented in this encounterMemorial Hospital10-31-2023 Discharge summary Author Huma Salter [facility] July 16, 2023 10:48am Note Date/Time July 16, 2023 1 0:48am [facility] Physical Therapy [facility] [address] [place] [address] / REHABILITATION SERVICES DISCHARGE SUMMARY MR#: [id number] Acct: [id number] Name: BARBARA MENESES Rep #: [id number] : [id number] 68 From: Huma Salter PT, Cert. MDT Referring Dr.: Dr. Keyonna Cartwright MD Status: REG R Insurance: [employer]URANCE Patient Information Patient Information: BARBARA MENESES was seen in my office for initial evaluation on 03/05/23. The following Plan of Care was established for this patient: POC Established Initial Frequency: 1x/Week Initial Duration: 10-12 WKS Anticipated Interventions Patient/Client Instruction: Educate patient on: Condition, Plan of Care and Risk Factors For the Purpose of:: To improve self management Therapeutic Exercise to Include: Strength training, Endurance training, Body mechanics, Flexibilty training and Neuromotor development For the Purpose of:: To increase ROM, To improve muscle performance and motor function, To increase tolerance to activity/condition/position and To improve ability of physical actions for home/community/work/leisure Manual Therapy Techniques to Include: Trigger point massage and Soft tissue mobilization Comment: PF IF PATIENT AGREEABLE - TEST/TREAT For the Purpose of:: To decrease pain, To improve nutrient delivery to tissue and To improve muscle performance and motor function Last Seen Last Seen: This patient was last seen in our office 05/01/23. Pertinent comments regardingtheir Physical therapy will appear below: This patient has not returned to Physical Therapy and is appropriate to return to MD for further follow-up as needed. At this point I will be discontinuing this patient from physical therapy. I would be happy to see this patient again in the future if found appropriate by the physician. Thank you! Huma Salter PT, Cert MDT <Electronically signed by Huma Salter PT Cert. MDT> 07/16/23 1048 CC: Dr. Keynona Cartwright MD; Dr. Juan Locke, DO ~ LENNIE Signed [facility] Work Phone: [phone]) 851-537310-27-2023 History of Present illness Narrative* Latanya Rich - 07/12/2023 1:31 PM EDT Third outreach to patient attempt: 07/12/2023 No reason identified, Patient contacted: No answer, unable to leave voicemail Third attempt; no voicemail left Outcome of review: Pending outreach to patient Follow-up needed from this call (I.e. labs ordered, consult to pharmacy) - Nanoledge message if patient is active Latanya Rich, Scientific Software Engineer * Latanya Rich - 07/08/2023 11:18 AM EDT Second outreach to patient attempt: 07/08/2023 Patient contacted: No answer, left voicemail Outcome of review: Pending outreach to patient Latanya Hilario, Scientific Software Engineer * Latanya Rich - 06/17/2023 1:16 PM EDT Pt chart reviewed as part of population health initiative focused on statin use in patients with diabetes (DM) or cardiovascular disease (CVD). Barbara Meneses is identified through data from [employer] (insurer) as a potential candidate for statin therapy with no prescriptions claims processed for a statin medication in this calendar year. Chart Review The following case components were reviewed for current or historic statin use: Confirmed diabetes and or CVD: yes Current/Active med list includes a statin: no IF YES, Last order date and quantity: N/A Last pharmacy fill date: Per Epic: N/A, Per pharmacy phone call: N/A IF NO, reason identified (contraindication, intolerance, exclusion, etc.): None identified ALLERGIES Allergen Reactions Mold Unknown Adhesive Tape (Yamel* Rash Januvia [Sitaglipti* Intolerance GI upset, aching of muscles, headaches Latex Itching PAST MEDICAL HISTORY Diagnosis Date Albuminuria 08/2015 Depression History of nephrectomy Hypertension Iron deficiency anemia secondary to inadequate dietary iron intake 05/07/2023 Iron malabsorption 05/07/2023 Type 2 diabetes, uncontrolled, with renal manifestation Cholesterol, Total (mg/dL) Date Value 12/05/2022 133 06/26/2021 141 HDL Cholesterol (mg/dL) Date Value 12/05/2022 53 06/26/2021 42 LDL Cholesterol (mg/dL) Date Value 12/05/2022 67 06/26/2021 80 Triglyceride (mg/dL) Date Value 12/05/2022 65 06/26/2021 95 No reason identified, Patient contacted: No answer, left voicemail Outcome of review: Pending outreach to patient Latanya Rich, Scientific Software Engineer documented in this encounterMemorial Hospital10-19-2023 Miscellaneous Notes* Telephone Encounter - Mariana Pacheco LPN - 07/04/2023 12:36 PM EDT Phoned patient and went over notes below from Dr Locke with understanding. * Telephone Encounter - Juan Locke DO - 07/04/2023 9:56 AM EDT Yes, it is possible it is causing these symptoms. For now, have her decrease her dose of jardiance to 1/2 tablet once a day and will discuss more options at appt Juan Locke DO * Telephone Encounter - Yesy Torres RN - 06/27/2023 4:24 PM EDT Patient asking this message be sent to pcp. Aware pcp out of office until Saturday. Reports she is taking jardiance for diabetes, for about a year. For the past 6 mths having pain in bladder with urination, frequency, and incontinence. Incontinence has been going on before starting jardiance. Dr Cartwright has her in therapy, doing kegal exercises and things to help with the bladder pain and frequency. Patient is wondering if the jardiance is causing these symptoms. Patient has appt scheduled with pcp on 07-27 to discuss this issue. documented in this encounterMemorial Hospital08-28-2023 Miscellaneous Notes* Telephone Encounter - Azar Quigley - 05/13/2023 10:11 AM EDT Reviewed patient on the 1st time treatment report. The patient has a non- oncology regimen. No further Financial Navigator intervention is needed at this time. documented in this encounterMemorial Hospital08-23-2023 Miscellaneous Notes* Telephone Encounter - Manda Majano - 05/08/2023 2:30 PM EDT Pt returned call and message given * Telephone Encounter - Casandra Haskins - 05/08/2023 9:01 AM EDT LM for patient to return call. When patient calls, please advise her of Dr. Novak's note below and that someone from Dr. Locke's office will be calling to schedule labs as mentioned below. Casandra Haskins . * Telephone Encounter - Clayton Novak DO - 05/07/2023 8:37 PM EDT Her iron levels are coming up nicely with PO iron. Continue same and cancel IV iron. Follow up withDr. Locke for recheck of CBC and iron in about 2 months. Cancel follow up here. Juan--Please refer her back if iron starts to decline. She'll qualify for IV iron then. Clayton Novak DO documented in this encounterMemorial Hospital08-22-2023 History of Present illness Narrative* Clayton Novak, - 05/07/2023 2:15 PM EDT Patient referred by Dr. Locke for anemia. The impression and plan will be communicated by way ofthe shared electronic record or faxed under separate cover letter. HPI: The patient is a 68-year-old female with a past medical history significant for frequent headaches, cervical spine degenerative disease with radiculopathy, hypertension, obstructive sleep apnea,elevated LFTs, diverticulitis, internal hemorrhoids, rectal bleeding, irritable bowel syndrome, type 2 diabetes, hypothyroidism, dyslipidemia, right shoulder subacromial bursitis, generalized anxietydisorder, major depressive disorder with single episode in remission, history of nephrectomy, panicattacks, fatigue and vitamin D deficiency. Started having rectal bleeding about 6 months ago. Sees blood every time wipes after BM. Occasional blood in toilet. Formed to loose stools. EGD by Dr. Ben Garcia 02/22/2023. Patient was found to have LA grade a (1 or more mucosal breaks less than 5 mm, not extending between tops of 2 mucosal folds) esophagitis with no bleeding observed 35 cm from the incisors. A mild Schatzki ring was found at the GE junction. 1 column of nonbleeding grade 2 varices were found in the lower third esophagus 33 cm from the incisors. No stigmata of recent bleeding were evident and no red batsheva signs were present. There was diffuse moderately erythematous mucosa without bleeding in the greater curvature of the stomach. Biopsies were obtained. The examined duodenum was normal. Biopsies were obtained. There was a medium size hiatal hernia. Middle thirdesophagus was normal biopsies were obtained. Colonoscopy performed same day revealed nonthrombosed external hemorrhoids, nonthrombosed internal hemorrhoids and internal hemorrhoids that prolapse with straining but required manual replacement into the anal canal on digital rectal exam. Diverticulosis in the sigmoid and descending colon. One 5 mm polyp in the proximal sigmoid colon that was removed with cold biopsy. Inflamed mucosa in the proximal rectum biopsied. Pathology: A. Duodenum, biopsy: A fragment of duodenal mucosa, no pathologic diagnosis. B. Antrum, biopsy: Mild gastritis. See microscopic description and comment. C. Distal esophagus, biopsy: Fragments of gastroesophageal mucosa with moderate chronic inflammation. Intestinal metaplasia (goblet cell metaplasia) not identified. See comment. D. Greater curvature, biopsy: Minimal gastritis. See microscopic description. E. Mid esophagus, biopsy: A fragment of gastroesophageal mucosa with chronic inflammation. Intestinal metaplasia (goblet cell metaplasia) not identified. See comment. F. Colon, random biopsy: Fragments of colonic mucosa, no pathologic diagnosis. G. Proximal sigmoid polyp, biopsy: Hyperplastic polyp. H. Rectal inflammation, biopsy: A fragment of colonic mucosa with focal ulceration and acute inflammation. GERD--omeprazole, a long, long time. On oral iron 4-6 months. Tolerates well. 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 No children. Two miscarriages. Used to have menorrhagia. Diagnosed with endometriosis and had hysterectomy at about age 29. Previous right nephrectomy. Congenital atrophy. Previous ultrasound liver and spleen demonstrated the liver had a coarse echotexture with increasedechogenicity and a smooth surface contour with no lesions. Splenomegaly with spleen measuring 14.2 cm. There was a splenic calcification measuring 9 x 6 x 9 mm. No other focal lesion. Tired a lot. Naps about 3-4 hours a day. Doesn't sleep well at night. No dyspnea with usual activities. Mild dyspnea with stairs. 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 Larkin HYSTERECTOMY HX 1993 Total PAST SURGICAL HISTORY OF 1974 right kidney removed THYROIDECTOMY SUBTOTAL/PARTIAL 1991 ALLERGIES Allergen Reactions Mold Unknown Adhesive Tape (Yamel* Rash Januvia [Sitaglipti* Intolerance GI upset, aching of muscles, headaches Latex Itching Current Outpatient Medications Medication Sig empagliflozin (JARDIANCE) 25 mg tablet Take 1 tablet by mouth once daily. Take 1 tablet once daily in the morning zolpidem (AMBIEN) 5 mg tablet Take 1 tablet by mouth at bedtime as needed for sedation for up to 30days. albuterol HFA (VENTOLIN HFA) 90 mcg/actuation inhaler Inhale 2 Puffs as instructed every 4 hours asneeded for wheezing/shortness of breath. losartan (COZAAR) 50 mg tablet Take 1 tablet by mouth once daily. ergocalciferol 50,000 unit capsule (VITAMIN D2, DRISDOL) Take 1 capsule by mouth one time a week. SYNTHROID 137 mcg tablet take 1 tablet by mouth once daily ON AN EMPTY STOMACH FOR THYROID DULoxetine (CYMBALTA) 60 mg capsule TAKE 1 CAPSULE DAILY WITH 30MG CAPSULES TO TOTAL 90MGA DAY buPROPion (WELLBUTRIN) 100 mg tablet Take 2 tablets to total 200 mg in the morning and 1 tablet in the evening, total of 300 mg a day benzonatate (TESSALON PERLES) 100 mg capsule Take 1 capsule by mouth three times daily as needed for cough. Magnesium Oxide-Mg Amino Acid Chelate (MAGNESIUM) 300 mg cap Take 300 mg by mouth once daily. KRILL OIL ORAL Take 1 capsule by mouth one time a week. ferrous sulfate 325 mg (65 mg iron) tablet Take 325 mg by mouth daily with breakfast. SUMAtriptan (IMITREX) 25 mg tablet TAKE 1 TABLET NEEDED FORMIGRAINE HEADACHE (SEE ADMINISTRATIONINSTRUCTIONS) omeprazole (PRILOSEC) 20 mg capsule Take 20 mg by mouth once daily. cyanocobalamin (VITAMIN B-12) 1,000 mcg tab Take 1,000 mcg by mouth once daily. blood sugar diagnostic (BLOOD GLUCOSE TEST) test strip Test blood sugar(s) 1 times daily. Dx: Type 2 DM - Uncontrolled E11.65 Insulin: No Lancets lancets Test blood sugar(s) 1 times daily. Dx: Type 2 DM - Uncontrolled E11.65 Insulin: No No current facility-administered medications for this visit. Social History Tobacco Use Smoking status: Former Smokeless tobacco: Never Tobacco comments: Quit long time ago Vaping Use Vaping Use: Never used Substance Use Topics Alcohol use: Yes Comment: Occasionally Drug use: No Family History Problem Relation Age of Onset Osteoporosis Mother other (Hepatitis C) Mother Colon Cancer Father other (myasthenia gravis) Father Aneurysm Father Osteoporosis Sister No Known Problems Brother No Known Problems Brother Aneurysm Brother Cancer Brother bladder other (atrial fib) Brother COPD Brother No Known Problems Maternal Grandmother Stroke Maternal Grandfather ROS: Constitutional: No fever. No drenching night sweats. Normal appetite. No unexplained weight loss. Neuro: No vertigo, dizziness. Mild imbalance. No symptoms of sensory neuropathy. HEENT: No recent change in voice, vision or hearing. Resp: No wheeze or hemoptysis. Occasional cough from dust or outside pollen. CVS: No exertional chest pain, PND or orthopnea. Ankles swell if walks a lot. No painful or tender varicose veins. GI: No dysphagia or odynophagia. : No dysuria or gross hematuria. Stress incontinence. Endo: No hot flashes. No polyuria or polydipsia. No heat or cold intolerance. Musculoskeletal: No bone, joint and muscular pain. Back hurst is stands for a while. Derm: No history of jaundice. No diffuse pruritis. Heme: No unusual bleeding and unexplained bruising. Psych: Normal mood. PHYSICAL EXAM: Vitals: Blood pressure 129/74, pulse 98, temperature 36.4 C (97.6 F), height 163 cm (5' 4.17), weight 98.2 kg (216 lb 8 oz), SpO2 97 %. Well-appearing and in no acute distress. EYES: Sclerae are anicteric bilaterally. LYMPHATIC: There is no palpable cervical or supraclavicular adenopathy. RESPIRATORY: Inspiratory breath sounds are of normal intensity in all leong. No rales, wheezes or rhonchi. CARDIOVASCULAR: Rhythm is regular. ABDOMEN: The abdomen is nondistended. No splenomegaly or hepatomegaly. No tenderness. Extremities: No swelling or edema. SKIN: No jaundice. LABS: Component Latest Ref Rng & Units 12/05/2022 12/27/2022 03/05/2023 WBC 3.70 - 11.00 k/uL 3.95 3.76 RBC 3.90 - 5.20 m/uL 4.22 4.18 Hemoglobin 11.5 - 15.5 g/dL 9.8 (L) 9.6 (L) Hematocrit 36.0 - 46.0 % 33.2 (L) 32.8 (L) MCV 80.0 - 100.0 fL 78.7 (L) 78.5 (L) MCH 26.0 - 34.0 pg 23.2 (L) 23.0 (L) MCHC 30.5 - 36.0 g/dL 29.5 (L) 29.3 (L) RDW-CV 11.5 - 15.0 % 20.8 (H) 18.1 (H) Platelet Count 150 - 400 k/uL 100 (L) 114 (L) MPV 10.5 Neut% % 54.1 62.4 Abs Neut (ANC) 1.45 - 7.50 k/uL 2.14 2.35 Lymph% % 28.6 24.5 Abs Lymph 1.00 - 4.00 k/uL 1.13 0.92 (L) [place]% % 9.4 8.0 Abs [place] <0.87 k/uL 0.37 0.30 Eosin% % 7.1 4.8 Abs Eosin <0.46 k/uL 0.28 0.18 Baso% % 0.5 0.3 Abs Baso <0.11 k/uL <0.03 <0.03 Immature Gran % % 0.3 0.0 IMMATURE GRANS (ABS) <0.10 k/uL <0.03 <0.03 NRBC /100 WBC 0.0 0.0 Absolute nRBC <0.01 k/uL <0.01 <0.01 DTYPE Auto Auto Protein, Total 6.3 - 8.0 g/dL 6.2 (L) 6.0 (L) Albumin 3.9 - 4.9 g/dL 4.1 4.3 Calcium 8.5 - 10.2 mg/dL 9.6 10.0 Bilirubin, Total 0.2 - 1.3 mg/dL 0.7 0.5 Alkaline Phosphatase 34 - 123 U/L 121 112 AST 13 - 35 U/L 28 22 ALT 7 - 38 U/L 20 20 Glucose 74 - 99 mg/dL 165 (H) 184 (H) BUN 7 - 21 mg/dL 13 13 Creatinine 0.58 - 0.96 mg/dL 0.73 0.78 Sodium 136 - 144 mmol/L 142 141 Potassium 3.7 - 5.1 mmol/L 4.2 3.7 Chloride 97 - 105 mmol/L 106 (H) 106 (H) CO2 22 - 30 mmol/L 23 22 Anion Gap 9 - 18 mmol/L 13 13 eGFR >=60 mL/min/1.73m 90 82 Iron 41 - 186 ug/dL 17 (L) 20 (L) TIBC 232 - 386 ug/dL 374 391 (H) Transferrin Saturation 15.0 - 57.0 % 4.5 (L) 5.1 (L) Vitamin B12 232 - 1,245 pg/mL 471 429 Ferritin 14.7 - 205.1 ng/mL 20.0 ASSESSMENT/PLAN: (D50.9) Iron deficiency anemia, unspecified iron deficiency anemia type (primary encounter diagnosis) Assessment: -WAQAR secondary to chronic blood loss and malabsorption due to chronic gastritis and PPI use. -Doesn't appear to be absorbing oral iron well. -Candidate for parenteral iron. -Discussed. Plan: -Check CBC/Iron studies today. -Start with 5 doses iron sucrose. -OV/CBC/Iron studies about 4-6 weeks after completing iron. -Follow up with Dr. Garcia for treatment of rectal bleeding. 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 -Not on anticoagulation or antiplatelet therapy. Plan: -Can be monitored. Portions of this documentation were copied and pasted from previous office visit notes in order to provide a cohesive continuity of the history. The note has been reviewed and edited and updated as necessary. Activity Duration Chart accessed 13 minutes Current session 25 minutes Total time: 38 minutes* Clayton Novak DO documented in this encounterMemorial Hospital08-16-2023 Miscellaneous Notes* Telephone Encounter - Kavitha Hayes APRN.CNP - 05/01/2023 3:12 PM EDT The following approved medication requests have been transmitted electronically. Requested Prescriptions Signed Prescriptions Disp Refills empagliflozin (JARDIANCE) 25 mg tablet 90 tablet 1 Sig: Take 1 tablet by mouth once daily. Take 1 tablet once daily in the morning Authorizing Provider: KAVITHA HAYES APRN.CNP * Telephone Encounter - Michelle Estrada RN - 05/01/2023 2:28 PM EDT Patient calling to say [facility] did not receive script for Jardiance. Asking if PCP can send again. Pended. Michelle Estrada RN documented in this encounterMemorial Hospital08-16-2023 Miscellaneous Notes* Telephone Encounter - Jennifer Campbell RN - 05/01/2023 2:53 PM EDT Called pt and notified of medication dose change. When checking prescription, noted it was a med update instead of normal so it did not escript. Called in the prescription to [facility] in [place]. Spoke with pharmacist Kalina. * Telephone Encounter - Mariana Pacheco LPN - 04/30/2023 9:41 AM EDT Phoned patient and left message to return call and ask to speak to a nurse. * Telephone Encounter - Juan Locke DO - 04/30/2023 8:42 AM EDT Please inform patient of below change of rx Juan Locke DO The following approved medication requests have been transmitted electronically. Requested Prescriptions Signed Prescriptions Disp Refills empagliflozin (JARDIANCE) 25 mg tablet 90 tablet 1 Sig: Take 1 tablet by mouth once daily. Take 1 tablet once daily in the morning Authorizing Provider: JUAN LOCKE DO * Telephone Encounter - Jennifer Campbell RN - 04/30/2023 8:37 AM EDT Pt called and is notified of providers results and instructions. Pt is still taking the Jardiance and is agreeable to increasing the dose. Please call pt back when prescription is entered or if she needs to do anything else. Pt uses [facility] in [place]. Jennifer Campbell RN * Telephone Encounter - Juan Locke DO - 04/30/2023 7:09 AM EDT Please inform patient okay to stop the Januvia. Is she still taking the Jardiance? If so, we can just increase this dose for now and then consider adding back on low dose of metformin in future depending on diabetes control Juan Locke DO * Telephone Encounter - Jennifer Campbell RN - 04/26/2023 1:52 PM EDT Pt calling in stating Dr. Locke recently prescribed Januvia for her instead of her Metformin. She feels the Januvia is causing her to have more headaches, stomach upset, and achiness all over. Shedoesn't like the way it makes her feel. She is wondering if there is another medication they can try. Or she is willing to go back on her Metformin. Please call and advise. Uses [facility] in [place]. documented in this encounterMemorial Hospital07-11-2023 Miscellaneous Notes* Telephone Encounter - Destiny Rollins LPN - 03/26/2023 3:42 PM EDT Spoke with pt and she would like to see Jeremy Villafana at [facility]. Faxed referral and supporting information along with face sheet and insurance information. Destiny Rollins LPN * Telephone Encounter - Loni Chirinos LPN - 03/14/2023 1:08 PM EDT Spoke with pt gave information provided. Pt voices understanding. Please assisit in scheduling with gastro. * Telephone Encounter - Juan Locke DO - 03/14/2023 9:26 AM EDT Please inform patient that her right upper abdominal Ultrasound done on 03/07 showed no acute concerns as below IMPRESSION: Prior right nephrectomy. Splenomegaly without acute process. Splenic granuloma. Her liver enzymes are normal. Her labs show that her diabetes is improving, a1c at 7.2%. down from 7.7% She is in an iron deficiency anemia. She needs to follow up with [facility] for need for EGD and colonoscopy as well as hematologsit for opinion to determine where iron deficiency is coming from. She needs to be taking iron ferrous sulfate 325 mg twice a day with meals as well. Juan Locke DO * Telephone Encounter - Destiny Rollins LPN - 03/12/2023 4:14 PM EDT Pt calling for lab results from 03-05-23 done here and US results form 03-07-23 done at [facility]. Destiny Rollins LPN documented in this encounterMemorial Hospital07-03-2023 Miscellaneous Notes* Telephone Encounter - Pooja Matias LPN - 03/18/2023 5:03 PM EDT Pt. informed. * Telephone Encounter - Nury Alexander APRN.CNP - 03/18/2023 4:33 PM EDT Yes she should stay on both and Dr. Locke can make any necessary adjustments at her appointment in May. Nury Alexander APRN.CNP * Telephone Encounter - Pooja Matias LPN - 03/18/2023 4:18 PM EDT Pt. started Januvia and wants to know if she was suppose to stay on the Jardiance? Please advise. documented in this encounterMemorial Hospital06-22-2023 History of Present illness Narrative* Riya Cai RDMS - 03/07/2023 1:00 PM EDT Radiology Service Progress Note PATIENT NAME: Barbara Meneses DATE OF SERVICE: March 07, 2023 TIME: 1:21 PM PATIENT IDENTITY VERIFICATION COMPLETED USING TWO (2) IDENTIFIERS: Name and Date of confirmedby patient verbally. FALL SCREENING: Has the patient had 2 falls in the last year or 1 fall with injury or currently using an Ambulatory Assistive Device (Walker, Cane, Wheelchair, Crutches, etc.)? No PATIENT GENDER DATA: Female. status: : No status: NO. PATIENT RELEVANT IMPLANT DATA REVIEWED: Not Applicable RADIOLOGY DEPARTMENT: Ultrasound PERIPHERAL IV DATA: Not applicable SIGNED BY: Riya Cai RDMS RVT March 07, 2023 1:21 PM documented in this encounterMemorial Hospital06-20-2023 History of Present illness Narrative* Juan Locke DO - 03/05/2023 2:00 PM EDT Patient presents with: F/U 3 Month HPI: Barbara Meneses is a 68 year old female who presents to the office today for review of health conditions. Concerns today: Had recent EGD by Dr. Garcia at [facility], found to have a mild schatzski's ring as well as GERD changes and esophageal varies present. No previous known hx of liver disease. Hasn't had recent liver testingother than LFTs normal in November. Denies any jaundice or abdominal pain. Does get occasional bloating and loose stools. No blood in stool + craving of ice chips recently She would like to try alternative instead of the metformin, she is wondering if this is bothering her stomach sometimes. Unsure what medication is covered for her as alternative with her insurance + fatigue, has a lot of social stressors Ms. Meneses has past history of diabetes. Since our last visit she denies excessive thirst or increased frequency of urination, chest pain or dyspnea , numbness, tingling or pain in extremities, new or unusual visual symptoms, and low sugar/hypoglycemic reactions. Depression- no. Follows a diabetic diet some of the time. She is compliant with medication(s) and is tolerating med(s) without any side effects. She reports checking her glucose on a twice a day schedule with sugars in the <200 range. Patient's last HgA1C was Hemoglobin A1C (%) Date Value 12/05/2022 7.7 01/02/2022 6.7 09/01/2021 8.6 06/26/2021 9.2 ) Last Ophthalmology exam was within the past 12 months Ms. Meneses reports history of hyperlipidemia. Current therapy includes diet and exercise. Denies side effects of muscle weakness or achiness. Her most recent lipid panels are reviewed. Cholesterol, Total (mg/dL) Date Value 12/05/2022 133 06/26/2021 141 HDL Cholesterol (mg/dL) Date Value 12/05/2022 53 06/26/2021 42 LDL Cholesterol (mg/dL) Date Value 12/05/2022 67 06/26/2021 80 Triglyceride (mg/dL) Date Value 12/05/2022 65 06/26/2021 95 Ms. Meneses indicates a history of hypertension and states that she is feeling well and denies any symptoms referable to elevated blood pressure. Specifically denies headache, chest pain, palpitations, dyspnea, and peripheral edema. Patient denies any side effects of her medication(s) and is compliant with their regimen. Last 3 Encounter BP Readings: Date: BP: 03/05/2023 116/60 02/14/2023 158/78 11/28/2022 128/64 She watches her diet for sodium, low fat and low cholesterol some of the time. She does not check BP's generally. Barbara gets minimal exercise. 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 Larkin HYSTERECTOMY HX 1993 Total PAST SURGICAL HISTORY OF 1974 right kidney removed THYROIDECTOMY SUBTOTAL/PARTIAL 1991 Social History Tobacco Use Smoking status: Former Smokeless tobacco: Never Tobacco comments: Quit long time ago Vaping Use Vaping Use: Never used Substance Use Topics Alcohol use: Yes Comment: Occasionally Drug use: No FAMILY HISTORY Problem Relation Age of Onset Colon Cancer Father other (myasthenia gravis) Father Osteoporosis Mother other (Hepatitis C) Mother Stroke Maternal Grandfather Cancer Brother bladder Allergies: ALLERGIES Allergen Reactions Mold Unknown Adhesive Tape (Yamel* Rash Latex Itching Current Meds: losartan (COZAAR) 50 mg tablet Take 1 tablet by mouth once daily. Saccharomyces boulardii (FLORASTOR) 250 mg capsule Take 1 capsule by mouth once daily. ergocalciferol 50,000 unit capsule (VITAMIN D2, DRISDOL) Take 1 capsule by mouth one time a week. SYNTHROID 137 mcg tablet take 1 tablet by mouth once daily ON AN EMPTY STOMACH FOR THYROID metFORMIN (GLUCOPHAGE) 1,000 mg tablet Take 1 tablet by mouth twice daily with meals. DULoxetine (CYMBALTA) 60 mg capsule TAKE 1 CAPSULE DAILY WITH 30MG CAPSULES TO TOTAL 90MGA DAY buPROPion (WELLBUTRIN) 100 mg tablet Take 2 tablets to total 200 mg in the morning and 1 tablet in the evening, total of 300 mg a day empagliflozin (JARDIANCE) 10 mg tablet Take 1 tablet by mouth once daily. Take 1 tablet once daily in the morning benzonatate (TESSALON PERLES) 100 mg capsule Take 1 capsule by mouth three times daily as needed for cough. Magnesium Oxide-Mg Amino Acid Chelate (MAGNESIUM) 300 mg cap MAGNESIUM CAPS unkdi MAGNESIUM CAPS [id number] Severino Jeffers MD KRILL OIL ORAL Take 1 capsule by mouth once daily. blood sugar diagnostic (BLOOD GLUCOSE TEST) test strip Test blood sugar(s) 1 times daily. Dx: Type 2 DM - Uncontrolled E11.65 Insulin: No ferrous sulfate 325 mg (65 mg iron) tablet Take 325 mg by mouth daily with breakfast. SUMAtriptan (IMITREX) 25 mg tablet TAKE 1 TABLET NEEDED FORMIGRAINE HEADACHE (SEE ADMINISTRATIONINSTRUCTIONS) Lancets lancets Test blood sugar(s) 1 times daily. Dx: Type 2 DM - Uncontrolled E11.65 Insulin: No DULoxetine (CYMBALTA) 30 mg capsule Take 1 capsule by mouth once daily. Take 1 capsule PO daily with 60 mg capsule to total 90 mg a day omeprazole (PRILOSEC) 20 mg capsule Take 20 mg by mouth once daily. cyanocobalamin (VITAMIN B-12) 1,000 mcg tab Take 1,000 mcg by mouth once daily. zolpidem (AMBIEN) 5 mg tablet Take 1 tablet by mouth at bedtime as needed for sedation for up to 30days. albuterol HFA (VENTOLIN HFA) 90 mcg/actuation inhaler Inhale 2 Puffs as instructed every 4 hours asneeded for wheezing/shortness of breath. Review of Systems: The remainder of the review of systems is negative. PE: 03/05/23 1343 BP: 116/60 Pulse: 88 Resp: 16 Temp: 36.1 C (97 F) TempSrc: Right Tympanic Weight: 98.4 kg (217 lb) Gen: A&O, NAD, non-toxic appearing, Pleasant, cooperative HEENT: NT/AC, PERRLA, EOMs intact b/l, nares clear and patent b/l, pharynx without erythema, exudate or lesions. Uvula midline. MMM Neck: supple, No cervical LAD, no thyromegaly, no carotid bruits CV: RRR, normal S1 and S2, no murmurs, no gallops, no rubs, Pulses 2+ and symmetric in UE and LE b/l Lungs: normal respiratory effort, CTA b/l, no wheezing or rhonchi or rales Abd: soft, NT, ND, +BS, no obvious hepatosplenomegaly MS: FROM all 4 extremities Neuro: CN II-XII intact b/l Skin: warm, dry, intact, No rashes or lesions on exposed skin. Foot exam: Monofilament wnl on right and left feet. No edema ASSESSMENT/PLAN: 1. Functional diarrhea - ICD9: 564.5, ICD10: K59.1 (primary diagnosis) Check labs and RUQ US, has had recent EGD with Dr. Garcia, f/u with specialist as well. - COMP METABOLIC PANEL - CBC + DIFF - US ABD RIGHT UPPER QUADRANT 2. Situational insomnia - ICD9: 307.41, ICD10: F51.09 rx refilled, chronic, stable. - ZOLPIDEM 5 MG TABLET 3. Esophageal varices determined by endoscopy (HCC) - ICD9: 456.1, ICD10: I85.00 - Check labs and RUQ US, has had recent EGD with Dr. Garcia, f/u with specialist as well. No jaundice or hepatosplenomegaly or ascites. - COMP METABOLIC PANEL - CBC + DIFF - US ABD RIGHT UPPER QUADRANT - HEP C AB IA W/CONF SCRN - HEP ACUTE PANEL BL - HEP REMOTE PANEL BL - ALK PHOS ISOENZYM BL 4. Controlled type 2 diabetes mellitus without complication, without long-term current use of insulin (HCC) - ICD9: 250.00, ICD10: E11.9 - Controlled - Start sitagliptin (Januvia) - Blood glucose monitoring on a once daily schedule - Counseled on healthy diet and regular exercise - HGB A1C - SITAGLIPTIN PHOSPHATE 100 MG TABLET 5. Abnormal craving - ICD9: 783.9, ICD10: R63.8 Recheck labs as ordered due to craving ice, concerns for continued iron deficiency. - IRON + TIBC - VITAMIN B12 BLOOD 6. Major depressive disorder, single episode, in full remission (HCC) - ICD9: 296.26, ICD10: F32.5 - mood is stable 7. Fatigue, unspecified type - ICD9: 780.79, ICD10: R53.83 See above, likely multifactorial 8. Dyslipidemia - ICD9: 272.4, ICD10: E78.5 - Control undetermined, due for labs - Continue current medications - Counseled on healthy diet and regular exercise 9. Hypothyroidism, acquired - ICD9: 244.9, ICD10: E03.9 - Instructed patient on importance of taking on an empty stomach either first thing in the morning or at bedtime. Stable - Continue current medications Juan Locke DO To ER if develops chest pain, shortness of breath, or severe worsening of symptoms. Discussed risks, benefits, alternatives, and potential side effects of medications. Patient expressed understanding and agreed with the plan. Juan Locke DO [address] [place] [address] documented in this encounterMemorial Hospital06-14-2023 Miscellaneous Notes* Telephone Encounter - Loni Chirinos LPN - 02/27/2023 12:57 PM EDT Called and spoke with patient, Let her know Dr. Locke will discuss at up coming appt.Pt voices understanding. * Telephone Encounter - Juan Locke DO - 02/26/2023 5:18 PM EDT Will wait for appt to further evaluate Juan Locke DO * Telephone Encounter - Azucena Zarate LPN - 02/25/2023 1:53 PM EDT Pt calls to report that she had colonoscopy done at [facility] on 02/22. Pt reports it was advised to her [facility] pcp to review. Pt reports she thinks it has something to do with her liver. Pt has an appt already scheduled for 03/05. Azucena Zarate LPN documented in this encounterMemorial Hospital06-07-2023 Miscellaneous Notes* Telephone Encounter - Mariana Tara LUGO - 02/20/2023 10:04 AM EDT Patient is calling she took last pill today and asking for new rx to be sent to pharmacy. Pending rx Patient has been identified by name and date of : Patient phones for refill(s): Requested Prescriptions Pending Prescriptions Disp Refills losartan (COZAAR) 50 mg tablet 90 tablet 3 Sig: Take 1 tablet by mouth once daily. Date of last office visit in primary care: 11/28/2022, has appt 03/05/2023 Last 2 Encounter Wt Readings: Date: Wt: 02/14/2023 97.8 kg (215 lb 9.6 oz) 11/28/2022 101.6 kg (224 lb) Previous labs/tests for medication: Blood Pressure: BUN (mg/dL) Date Value 12/05/2022 13 06/26/2021 9 Sodium (mmol/L) Date Value 12/05/2022 142 06/26/2021 140 Last 1 Encounter BP Readings: Date: BP: 02/14/2023 158/78 Please advise. Thank you. Mariana Pacheco LPN documented in this encounterMemorial Hospital06-03-2023 Miscellaneous Notes* Telephone Encounter - Abigail Thornton LPN - 02/16/2023 12:59 PM EDT Left detailed message on identifiable voicemail * Telephone Encounter - Glory Escalante MA - 02/16/2023 7:49 AM EDT ----- Message from Laura Vazquez APRN.CNP sent at 02/15/2023 2:52 PM EDT ----- Urine culture did not show clear evidence of infection. If not improving, recommend follow up with PCP. Laura Vazquez CNP documented in this encounterMemorial Hospital06-01-2023 Miscellaneous Notes* Addendum Note - Jorge Bean APRN.CNP - 02/14/2023 3:09 PM EDTAddended by: JORGE BEAN on: 02/14/2023 03:09 PM Modules accepted: Level of Service documented in this encounterMemorial Hospital06-01-2023 History of Present illness Narrative* Jorge Bean APRN.CNP - 02/14/2023 12:32 PM EDT Subjective HPI Nontoxic-appearing female presents urgent care chief complaint possible UTI. Duration of symptoms 4days. Associated symptoms urinary frequency and dysuria. History of UTIs this feels similar. Has not use any OTC medications. No pain currently. Only pain with urinating. Denies any vaginal dischargeitching. No urological abnormalities. Denies any nausea vomiting abdominal pain or flank pain. Riskfactors diabetes. Does take Jardiance. Past medical history prescription medication use allergies reviewed. .Patient presents with: Urinary Problem: Pt reported frequency , burning x 4 days. 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 Larkin HYSTERECTOMY HX 1993 Total PAST SURGICAL HISTORY OF 1974 right kidney removed THYROIDECTOMY SUBTOTAL/PARTIAL 1991 ALLERGIES Mold, Adhesive Tape (Rosins), and Latex MEDICATIONS Saccharomyces boulardii (FLORASTOR) 250 mg capsule Take 1 capsule by mouth once daily. ergocalciferol 50,000 unit capsule (VITAMIN D2, DRISDOL) Take 1 capsule by mouth one time a week. SYNTHROID 137 mcg tablet take 1 tablet by mouth once daily ON AN EMPTY STOMACH FOR THYROID albuterol HFA (VENTOLIN HFA) 90 mcg/actuation inhaler Inhale 2 Puffs as instructed every 4 hours asneeded for wheezing/shortness of breath. metFORMIN (GLUCOPHAGE) 1,000 mg tablet Take 1 tablet by mouth twice daily with meals. DULoxetine (CYMBALTA) 60 mg capsule TAKE 1 CAPSULE DAILY WITH 30MG CAPSULES TO TOTAL 90MGA DAY buPROPion (WELLBUTRIN) 100 mg tablet Take 2 tablets to total 200 mg in the morning and 1 tablet in the evening, total of 300 mg a day empagliflozin (JARDIANCE) 10 mg tablet Take 1 tablet by mouth once daily. Take 1 tablet once daily in the morning Magnesium Oxide-Mg Amino Acid Chelate (MAGNESIUM) 300 mg cap MAGNESIUM CAPS unkdi MAGNESIUM CAPS [id number] Severino Jeffers MD KRILL OIL ORAL Take 1 capsule by mouth once daily. losartan (COZAAR) 50 mg tablet Take 1 tablet by mouth once daily. blood sugar diagnostic (BLOOD GLUCOSE TEST) test strip Test blood sugar(s) 1 times daily. Dx: Type 2 DM - Uncontrolled E11.65 Insulin: No ferrous sulfate 325 mg (65 mg iron) tablet Take 325 mg by mouth daily with breakfast. SUMAtriptan (IMITREX) 25 mg tablet TAKE 1 TABLET NEEDED FORMIGRAINE HEADACHE (SEE ADMINISTRATIONINSTRUCTIONS) Lancets lancets Test blood sugar(s) 1 times daily. Dx: Type 2 DM - Uncontrolled E11.65 Insulin: No DULoxetine (CYMBALTA) 30 mg capsule Take 1 capsule by mouth once daily. Take 1 capsule PO daily with 60 mg capsule to total 90 mg a day omeprazole (PRILOSEC) 20 mg capsule Take 20 mg by mouth once daily. cyanocobalamin (VITAMIN B-12) 1,000 mcg tab Take 1,000 mcg by mouth once daily. zolpidem (AMBIEN) 5 mg tablet Take 1 tablet by mouth at bedtime as needed for sedation for up to 30days. benzonatate (TESSALON PERLES) 100 mg capsule Take 1 capsule by mouth three times daily as needed for cough. (Patient not taking: Reported on 02/14/2023) FAMILY HISTORY Problem Relation Age of Onset Colon Cancer Father other (myasthenia gravis) Father Osteoporosis Mother other (Hepatitis C) Mother Stroke Maternal Grandfather Cancer Brother bladder Social History Tobacco Use Smoking status: Former Smokeless tobacco: Never Tobacco comments: Quit long time ago Vaping Use Vaping Use: Never used Substance Use Topics Alcohol use: Yes Comment: Occasionally Drug use: No BP 158/78 Pulse 101 Temp 36.2 C (97.2 F) (Tympanic) Resp 14 Wt 97.8 kg (215 lb 9.6 oz) SpO2 97% BMI 37.01 kg/m Review of Systems Constitutional: Negative for chills, fever and malaise/fatigue. HENT: Negative for congestion, ear discharge, ear pain, sinus pain and sore throat. Eyes: Negative for blurred vision, pain, discharge and redness. Respiratory: Negative for cough, hemoptysis, sputum production, shortness of breath, wheezing and stridor. Cardiovascular: Negative for chest pain. Gastrointestinal: Negative for abdominal pain, diarrhea, nausea and vomiting. Genitourinary: Positive for dysuria and frequency. Negative for flank pain, hematuria and urgency. Musculoskeletal: Negative for myalgias. Skin: Negative for itching and rash. Neurological: Negative for dizziness and headaches. Objective Physical Exam Constitutional: General: She is not in acute distress. Appearance: She is not diaphoretic. HENT: Head: Normocephalic. Eyes: Conjunctiva/sclera: Conjunctivae normal. Pupils: Pupils are equal, round, and reactive to light. Cardiovascular: Rate and Rhythm: Normal rate and regular rhythm. Heart sounds: Normal heart sounds. Pulmonary: Effort: Pulmonary effort is normal. No tachypnea, accessory muscle usage or respiratory distress. Breath sounds: Normal breath sounds. No stridor. No wheezing, rhonchi or rales. Abdominal: Palpations: Abdomen is soft. Tenderness: There is no abdominal tenderness. There is no right CVA tenderness, left CVA tendernessor guarding. Musculoskeletal: Cervical back: Normal range of motion. Skin: General: Skin is warm and dry. Neurological: Mental Status: She is alert and oriented to person, place, and time. ASSESSMENT/PLAN: 1. Urinary frequency - ICD9: 788.41, ICD10: R35.0 - UA DIP, URINE (POC) Patient diagnosed with urinary frequency. Only trace amount of leukocytes noted. Large amount of glucose noted. Last blood glucose check was 150s. Will not treat with antibiotics at today's visit. Treat according to urine culture results. Patient was educated on supportive therapies. Patient will follow up with primary care provider as needed. Patient was instructed to immediately proceed to emergency room for any new, worsening, or symptoms lasting longer than anticipated. The patient's clinical presentation is otherwise unremarkable at this time. Based on exam and clinical finding, the patient is stable for discharge. Plan of care was discussed with patient. Patient verbalizes understanding and agrees to plan of care. This note was generated using Njini software. It may contain errors in wording, punctuation, or spelling. Jorge Bean APRN.JUANA documented in this encounterMemorial Hospital04-17-2023 Miscellaneous Notes* Telephone Encounter - Casandra Samaniego RN - 12/31/2022 1:21 PM EDT Patient notified of results and provider's instructions. Patient verbalizes understanding. Patient already had appointment scheduled with Dr. Garcia on 01/04/2023 for diarrhea consult. Faxed lab results to Dr. Garcia's office. Casandra Samaniego RN * Telephone Encounter - Pooja Matias LPN - 12/31/2022 10:29 AM EDT Message left to return call. * Telephone Encounter - Juan Locke DO - 12/28/2022 5:03 PM EDT Please inform patient that her labs show that her iron levels are very low. Would have her considercolonoscope and EGD to help determine cause of the iron deficiency anemia. Would also recommend taking iron supplement twice a day with meals (slo fe with 45-67 mg of iron per tablet) Juan Locke DO documented in this encounterMemorial Hospital04-14-2023 Miscellaneous Notes* Telephone Encounter - Juan Locke DO - 12/28/2022 5:08 PM EDT See other TE Juan Locke DO * Telephone Encounter - Casandra Samaniego RN - 12/28/2022 3:41 PM EDT Patient calls and is asking about labs that were done yesterday 12/27/2022. Patient already takes ferrous sulfate 325 mg daily. Please review and advise, Casandra Samaniego RN * Telephone Encounter - Juan Locke DO - 12/14/2022 4:50 PM EDT Noted /Juan Locke DO * Telephone Encounter - Mariana Pacheco LPN - 12/14/2022 12:38 PM EDT Patient returned call and went over results, notes from Dr Locke with understanding. Went over cholesterol numbers and HGBA!C numbers also patient requested. Patient said she has bleeding hemorrhoids for long time. * Telephone Encounter - Loni Chirinos LPN - 12/13/2022 10:52 AM EDT Left message to return call. * Telephone Encounter - Juan Locke DO - 12/13/2022 10:09 AM EDT Please inform patient that her labs show that she is anemic and her platelets are slightly low. I would like her to have her iron levels and IFOBT and urinalysis checked when able. Is she having any bleeding? Her celiac labs show that she has risk of Celiac disease and gluten intolerance. This can be contributing to the anemia as well. Would recommend that she cuts all Gluten/wheat out of her diet strictly to see if her symptoms improve and labs improve. Juan Locke DO documented in this encounterMemorial Hospital04-11-2023 Miscellaneous Notes* Telephone Encounter - Catrina Sutton RN - 12/25/2022 4:01 PM EDT Patient requesting referral information and order for General Surgery be faxed to Dr. Ben Garcia's office. Faxed as requested. Catrina Sutton RN documented in this encounterMemorial Hospital03-24-2023 History of Present illness Narrative* Ailyn Kramer, JACY - 12/07/2022 8:25 AM EDT POPULATION HEALTH NAVIGATION OUTREACH Action/FYI Pt due for: Mammogram ANTHONY Flu shot Called pt, LM. No mychart Patient Identified by Name and : NO Outreach Outcome/Action Unable to reach patient: Left message Did you use a PCP flex slot to schedule this appointment? N/A Reason for Outreach Care Gap or Scheduling/Wellness visits Payer: Payor: [employer] [facility] / Plan: GREGOR [employer] HMO / Product Type: HMO / Care Gap Reviewed:: Breast Cancer screening Diabetic Eye Exam Flu Vaccine Reminder: Reminder note to check Health Maintenance for items below Health Maintenance items due: PNEUMOCOCCAL: 64+(1 - PCV) Never done SHINGRIX VACCINE(1 of 2) Never done BONE DENSITY Never done MAMMOGRAM due on 07/02/2019 Navigation Signature: JACY Thompson December 07, 2022 8:26 AM documented in this encounterMem[facility]03-15-2023 History of Present illness Narrative* Juan Locke, DO - 11/28/2022 3:16 PM EDT Patient presents with: Follow Up HPI: Barbara Meneses is a 67 year old female who presents to the office today for review of health conditions. Concerns today: Overall feeling fatigue symptoms since having Covid 19 infection 3 weeks ago. Her cough and chest congestion are mostly resolved. No fevers or chills or sputum now. See UROGYN specialist Dr. Cartwright for her bladder symptoms, has been told to start pelvic floor PHYSICAL THERAPY to see if able to help with bladder spasms. Hasn't started this yet- [facility]. Admits to a lot of personal stress in her life recently with her brother and niece moving back to the area and having to help them with their health issues. + fatigue symptoms, + chronic insomnia, use of ambien as prescribed with benefit Diarrhea, worsening, present daily, taking imodium medication. No fevers or chills. + bloody stoolsin the past, has been seen by the general surgeon, whom referred her to Dr. Zuniga for her hemorrhoids internal and external but hasn't had anyone willing to do this procedure for her. Interested in procedure for her hemorrhoids Ms. Meneses has past history of diabetes. Since our last visit she denies excessive thirst or increased frequency of urination, chest pain or dyspnea , new or unusual visual symptoms, and low sugar/hypoglycemic reactions. Depression- no. Follows a diabetic diet . She is compliant with medication(s) and is tolerating med(s) without any side effects. She reports checking her glucose on a once a day schedule with sugars in the <200 range. Patient's last HgA1C was Hemoglobin A1C (%) Date Value 01/02/2022 6.7 09/01/2021 8.6 06/26/2021 9.2 ) Last Ophthalmology exam was within the past 12 months Ms. Meneses reports history of hyperlipidemia. Current therapy includes diet and exercise. Denies side effects of muscle weakness or achiness. Her most recent lipid panels are reviewed. Cholesterol, Total (mg/dL) Date Value 06/26/2021 141 HDL Cholesterol (mg/dL) Date Value 06/26/2021 42 LDL Cholesterol (mg/dL) Date Value 06/26/2021 80 Triglyceride (mg/dL) Date Value 06/26/2021 95 Ms. Meneses indicates a history of hypertension and states that she is feeling well and denies any symptoms referable to elevated blood pressure. Specifically denies headache, chest pain, palpitations, dyspnea, and peripheral edema. Patient denies any side effects of her medication(s) and is compliant with their regimen. Last 3 Encounter BP Readings: Date: BP: 11/28/2022 128/64 11/09/2022 112/72 05/29/2022 122/78 She watches her diet for sodium, low fat and low cholesterol most of the time. She does not check BP's generally. Barbara gets minimal exercise. 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 Larkin HYSTERECTOMY HX 1993 Total PAST SURGICAL HISTORY OF 1975 right kidney removed THYROIDECTOMY SUBTOTAL/PARTIAL 1991 Social History Tobacco Use Smoking status: Former Smokeless tobacco: Never Tobacco comments: Quit long time ago Vaping Use Vaping Use: Never used Substance Use Topics Alcohol use: Yes Comment: Occasionally Drug use: No FAMILY HISTORY Problem Relation Age of Onset Colon Cancer Father other (myasthenia gravis) Father Osteoporosis Mother other (Hepatitis C) Mother Stroke Maternal Grandfather Cancer Brother bladder Allergies: ALLERGIES Allergen Reactions Mold Unknown Adhesive Tape (Yamel* Rash Latex Itching Current Meds: benzonatate (TESSALON PERLES) 100 mg capsule Take 1 capsule by mouth three times daily as needed for cough. empagliflozin (JARDIANCE) 10 mg tablet Take 1 tablet by mouth once daily. Take 1 tablet once daily in the morning VITAMIN D2 1,250 mcg (50,000 unit) capsule take 1 capsule by mouth every week SYNTHROID 137 mcg tablet take 1 tablet by mouth once daily ON AN EMPTY STOMACH FOR THYROID albuterol HFA (VENTOLIN HFA) 90 mcg/actuation inhaler Inhale 2 Puffs as instructed every 4 hours asneeded for wheezing/shortness of breath. zolpidem (AMBIEN) 5 mg tablet Take by mouth. Magnesium Oxide-Mg Amino Acid Chelate (MAGNESIUM) 300 mg cap MAGNESIUM CAPS unkdi MAGNESIUM CAPS [phone] Severino Jeffers MD KRILL OIL ORAL Take 1 capsule by mouth once daily. losartan (COZAAR) 50 mg tablet Take 1 tablet by mouth once daily. blood sugar diagnostic (BLOOD GLUCOSE TEST) test strip Test blood sugar(s) 1 times daily. Dx: Type 2 DM - Uncontrolled E11.65 Insulin: No ferrous sulfate 325 mg (65 mg iron) tablet Take 325 mg by mouth daily with breakfast. Saccharomyces boulardii (FLORASTOR) 250 mg capsule Take 1 capsule by mouth once daily. SUMAtriptan (IMITREX) 25 mg tablet TAKE 1 TABLET NEEDED FORMIGRAINE HEADACHE (SEE ADMINISTRATIONINSTRUCTIONS) Lancets lancets Test blood sugar(s) 1 times daily. Dx: Type 2 DM - Uncontrolled E11.65 Insulin: No metFORMIN (GLUCOPHAGE) 1,000 mg tablet Take 1 tablet by mouth twice daily with meals. DULoxetine (CYMBALTA) 60 mg capsule TAKE 1 CAPSULE DAILY WITH 30MG CAPSULES TO TOTAL 90MGA DAY buPROPion (WELLBUTRIN) 100 mg tablet Take 2 tablets to total 200 mg in the morning and 1 tablet in the evening, total of 300 mg a day DULoxetine (CYMBALTA) 30 mg capsule Take 1 capsule by mouth once daily. Take 1 capsule PO daily with 60 mg capsule to total 90 mg a day omeprazole (PRILOSEC) 20 mg capsule Take 20 mg by mouth once daily. cyanocobalamin (VITAMIN B-12) 1,000 mcg tab Take 1,000 mcg by mouth once daily. Review of Systems: The remainder of the review of systems is negative. PE: 03/15/23 1504 BP: 128/64 Pulse: 88 Resp: 20 Temp: 36.1 C (97 F) TempSrc: Left Tympanic Weight: 101.6 kg (224 lb) Gen: A&O, NAD, non-toxic appearing,appears fatigued, cooperative HEENT: NT/AC, PERRLA, wearing glasses, EOMs intact b/l, nares clear and patent b/l, pharynx withouterythema, exudate or lesions. Uvula midline. MMM Neck: supple, No cervical LAD, no thyromegaly, no carotid bruits CV: RRR, normal S1 and S2, no murmurs, no gallops, no rubs, Pulses 2+ and symmetric in UE and LE b/l Lungs: normal respiratory effort, CTA b/l, no wheezing or rhonchi or rales Abd: soft, overweight, NT, ND, +BS, no hepatosplenomegaly MS: FROM all 4 extremities Neuro: CN II-XII intact b/l, strength 5/5 b/l UE and LE, DTRs 2/4 UE and LE, sensation intact. Skin: warm, dry, intact, No rashes or lesions on exposed skin. Foot exam: Monofilament wnl on right and left feet. No edema ASSESSMENT/PLAN: 1. Controlled type 2 diabetes mellitus without complication, without long-term current use of insulin (HCC) - ICD9: 250.00, ICD10: E11.9 (primary diagnosis) - Controlled - Barriers to control: diet adherence, lack of exercise, and unstable living situation - Continue current medications - METFORMIN 1,000 MG TABLET - EMPAGLIFLOZIN 10 MG TABLET - COMP METABOLIC PANEL - CBC + DIFF - HGB A1C - ALBUMIN/CREAT RATIO RND UR 2. Hypothyroidism, acquired - ICD9: 244.9, ICD10: E03.9 - Instructed patient on importance of taking on an empty stomach either first thing in the morning or at bedtime. - continue current dose of Synthroid Stable - Behavioral intervention and - Eat well program - SYNTHROID 137 MCG TABLET - TSH BLD - T4 FREE/FREE THYROX 3. Situational depression - ICD9: 309.0, ICD10: F43.21 - rx refilled, has a lot of personal family stressors, no SI or HI - BUPROPION HCL 100 MG TABLET 4. Diarrhea, unspecified type - ICD9: 787.91, ICD10: R19.7 - recheck labs, needs to see general surgeon for further work up and possible need for hemorroidectomy - CELIAC COMPREHENSIVE PANEL - H PYLORI IGG AB - LIPASE BLD - CONSULT TO GENERAL SURGERY 5. Fatigue, unspecified type - ICD9: 780.79, ICD10: R53.83 Recheck labs as ordered. - VITAMIN D 25 HYDROXY - VITAMIN B12 BLOOD - TSH BLD - T4 FREE/FREE THYROX 6. Dyslipidemia - ICD9: 272.4, ICD10: E78.5 - to be determined upon return of lab results - Encouraged following a low fat, low cholesterol diet. - Discussed the benefits of regular aerobic exercise and weight loss. - LIPID PANEL BASIC 7. Situational insomnia - ICD9: 307.41, ICD10: F51.09 - ZOLPIDEM 5 MG TABLET 8. Vitamin D deficiency - ICD9: 268.9, ICD10: E55.9 - VITAMIN D 25 HYDROXY Juan Locke DO PDMP website checked and validated. All prescriptions have been APPROPRIATELY filled. No suspiciousactivity was identified. 11/28/2022 by Juan Locke DO To ER if develops chest pain, shortness of breath, or severe worsening of symptoms. Discussed risks, benefits, alternatives, and potential side effects of medications. Patient expressed understanding and agreed with the plan. Juan Locke DO [address] [place] [address] documented in this encounterMemorial Hospital02-27-2023 Miscellaneous Notes* Telephone Encounter - Casandra Samaniego RN - 11/12/2022 3:36 PM EST Patient notified of results and provider's instructions. Patient verbalizes understanding. Casandra Samaniego RN * Telephone Encounter - Maggy Rollins LPN - 11/11/2022 9:27 AM EST Contact letter printed and mailed to patient's listed address with positive results. Maggy Rollins LPN * Telephone Encounter - Amanda Rios MA - 11/11/2022 8:07 AM EST LORENZO left on both patient and emergency contact to return call for results. Amanda Rios MA * Telephone Encounter - Amanda Rios MA - 11/10/2022 11:24 AM EST LORENZO left instructing patient to return call for results. Amanda Rios MA * Telephone Encounter - Yonathan Willoughby MD - 11/10/2022 8:09 AM EST COVID test was positive. Continue to wear a mask around others for 10 days from symptom onset. If you have a fever, continue to stay home until your fever resolves. Treat with supportive care such as cough medicine, cold medicine, and pain relievers. Follow up with worsening symptoms; in the ER if severe. documented in this encounterMemorial Hospital02-24-2023 History of Present illness Narrative* YOLI Longo - 11/09/2022 9:58 AM EST This note was created using [employer] Mediar[employer]. Subjective Barbara Meneses is a 67 year old female. HPI 67-year-old female presents for sore throat, cough and ear pain x6 days. Patient states over the weekend she started getting a cough, sore throat and raspy voice. She states that she has bilateral ear pain and pressure. No vomiting or diarrhea. No fevers. 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 Larkin HYSTERECTOMY HX 1994 Total PAST SURGICAL HISTORY OF 1974 right kidney removed THYROIDECTOMY SUBTOTAL/PARTIAL 1991 ALLERGIES Mold, Adhesive Tape (Rosins), and Latex MEDICATIONS empagliflozin (JARDIANCE) 10 mg tablet Take 1 tablet by mouth once daily. Take 1 tablet once daily in the morning VITAMIN D2 1,250 mcg (50,000 unit) capsule take 1 capsule by mouth every week SYNTHROID 137 mcg tablet take 1 tablet by mouth once daily ON AN EMPTY STOMACH FOR THYROID albuterol HFA (VENTOLIN HFA) 90 mcg/actuation inhaler Inhale 2 Puffs as instructed every 4 hours asneeded for wheezing/shortness of breath. zolpidem (AMBIEN) 5 mg tablet Take by mouth. Magnesium Oxide-Mg Amino Acid Chelate (MAGNESIUM) 300 mg cap MAGNESIUM CAPS unkdi MAGNESIUM CAPS [phone] Severino Jeffers MD KRILL OIL ORAL Take 1 capsule by mouth once daily. losartan (COZAAR) 50 mg tablet Take 1 tablet by mouth once daily. blood sugar diagnostic (BLOOD GLUCOSE TEST) test strip Test blood sugar(s) 1 times daily. Dx: Type 2 DM - Uncontrolled E11.65 Insulin: No ferrous sulfate 325 mg (65 mg iron) tablet Take 325 mg by mouth daily with breakfast. SUMAtriptan (IMITREX) 25 mg tablet TAKE 1 TABLET NEEDED FORMIGRAINE HEADACHE (SEE ADMINISTRATIONINSTRUCTIONS) Lancets lancets Test blood sugar(s) 1 times daily. Dx: Type 2 DM - Uncontrolled E11.65 Insulin: No metFORMIN (GLUCOPHAGE) 1,000 mg tablet Take 1 tablet by mouth twice daily with meals. buPROPion (WELLBUTRIN) 100 mg tablet Take 2 tablets to total 200 mg in the morning and 1 tablet in the evening, total of 300 mg a day omeprazole (PRILOSEC) 20 mg capsule Take 20 mg by mouth once daily. cyanocobalamin (VITAMIN B-12) 1,000 mcg tab Take 1,000 mcg by mouth once daily. Saccharomyces boulardii (FLORASTOR) 250 mg capsule Take 1 capsule by mouth once daily. DULoxetine (CYMBALTA) 60 mg capsule TAKE 1 CAPSULE DAILY WITH 30MG CAPSULES TO TOTAL 90MGA DAY (Patient not taking: Reported on 03/28/2022 ) DULoxetine (CYMBALTA) 30 mg capsule Take 1 capsule by mouth once daily. Take 1 capsule PO daily with 60 mg capsule to total 90 mg a day (Patient not taking: Reported on 02/19/2022 ) FAMILY HISTORY Problem Relation Age of Onset Colon Cancer Father other (myasthenia gravis) Father Osteoporosis Mother other (Hepatitis C) Mother Stroke Maternal Grandfather Cancer Brother bladder Social History Tobacco Use Smoking status: Former Smokeless tobacco: Never Tobacco comments: Quit long time ago Vaping Use Vaping Use: Never used Substance Use Topics Alcohol use: Yes Comment: Occasionally Drug use: No Review of Systems Constitutional: Negative for chills and fever. HENT: Positive for congestion, ear pain and sore throat. Respiratory: Positive for cough. Negative for shortness of breath. Cardiovascular: Negative for chest pain. Gastrointestinal: Negative for diarrhea and vomiting. Objective BP 112/72 Pulse 109 Temp 36.9 C (98.5 F) Resp 20 Wt 100.6 kg (221 lb 12.8 oz) SpO2 95% BMI 38.07 kg/m Physical Exam Vitals and nursing note reviewed. Constitutional: General: She is not in acute distress. Appearance: Normal appearance. She is not toxic-appearing. HENT: Right Ear: Tympanic membrane and ear canal normal. Left Ear: Tympanic membrane and ear canal normal. Nose: Nose normal. Mouth/Throat: Mouth: Mucous membranes are moist. Pharynx: Posterior oropharyngeal erythema present. No oropharyngeal exudate. Eyes: Conjunctiva/sclera: Conjunctivae normal. Cardiovascular: Rate and Rhythm: Normal rate and regular rhythm. Pulmonary: Effort: Pulmonary effort is normal. Breath sounds: Normal breath sounds. Neurological: Mental Status: She is alert. Assessment and Plan ASSESSMENT/PLAN: 1. Sore throat - ICD9: 462, ICD10: J02.9 (primary diagnosis) - suspect viral - Alere Strep Test negative, no culture pending - Discussed supportive care treatment with fluids, rest and analgesia. - STREP A MOLECULAR (POC) 2. URI, acute - ICD9: 465.9, ICD10: J06.9 - Discussed viral etiology and rationale for treatment. - Symptomatic treatment with prn analgesia - Supportive care with fluids and rest - COVID WITH FLUA+B, ROUTINE - out of window for Tamiflu and antiviral - RX for tessalon perles Diagnosis and treatment plan were discussed and questions were answered to the patient's satisfaction. Pt acknowledged understanding of concepts and follow up plan. Specific signs and symptoms that would indicate the need for higher level of care were discussed in detail warranting prompt ER evaluation. YOLI Longo documented in this encounterMemorial Hospital02-06-2023 History of Present illness Narrative* Lucina Rivera MA - 10/22/2022 9:45 AM EST POPULATION HEALTH NAVIGATION OUTREACH Action/FYI Due for: Mammogram A1c Urine Albumin Dilated Retinal Exam (due 01/15/22) Flu shot Left VM; no MyChart Patient Identified by Name and : NO Outreach Outcome/Action Unable to reach patient: Left message Did you use a PCP flex slot to schedule this appointment? N/A Reason for Outreach Care Gap or Scheduling/Wellness visits Payer: Payor: [employer] / Plan: [email or web address] HMO / Product Type: HMO / Care Gap Reviewed:: Breast Cancer screening Diabetic Eye Exam HBA1C Nephropathy (Albumin/Creatinine) Urine Flu Vaccine Reminder: Reminder note to check Health Maintenance for items below Health Maintenance items due: PNEUMOCOCCAL: 65+(1 - PCV) Never done SHINGRIX VACCINE(1 of 2) Never done DIABETIC FOOT EXAM due on 12/18/2018 BONE DENSITY Never done MAMMOGRAM due on 07/02/2019 INFLUENZA(1) due on 05/17/2022 URINE ALBUMIN:CREATININE RATIO due on 06/26/2022 LDL CHOLESTEROL due on 06/26/2022 HBA1C due on 07/04/2022 ADVANCE DIRECTIVE DISCUSSION Never done Navigation Signature: Lucina Rivera MA October 22, 2022 9:46 AM documented in this encounterMemorial Hospital02-01-2023 Miscellaneous Notes* Telephone Encounter - Loni Chirinos LPN - 10/17/2022 1:11 PM EST Valerie--07/05/22 Nov--10/19/22 Last refill--03/07/22 90 with 1 refill Last labs--01/02/22 * Telephone Encounter - Mary Sepulveda Pss - 10/16/2022 3:58 PM EST Patient has been identified by name and date of : Yes Requested Prescriptions Pending Prescriptions Disp Refills empagliflozin (JARDIANCE) 10 mg tablet 90 tablet 1 Sig: Take 1 tablet by mouth once daily. Take 1 tablet once daily in the morning RX INSTRUCTIONS: Please send by tomorrow. Patient aware RX will be sent to pharmacy. No need to notify patient. Mary Sepulveda Pss documented in this encounterMemorial Hospital01-18-2023 Miscellaneous Notes* Telephone Encounter - Pooja Matias LPN - 10/03/2022 3:20 PM EST Patient has been identified by name and date of : Patient phones for refill(s): Requested Prescriptions Pending Prescriptions Disp Refills VITAMIN D2 1,250 mcg (50,000 unit) capsule [Pharmacy Med Name: VITAMIN D2 1.25MG(50,000 UNIT)] 12 capsule 3 Sig: take 1 capsule by mouth every week Date of last office visit in primary care: 01/05/22 Last 2 Encounter Wt Readings: Date: Wt: 05/29/2022 97.1 kg (214 lb) 04/17/2022 96.4 kg (212 lb 9.6 oz) Previous labs/tests for medication: Not applicable Please advise. Thank you. Pooja Matias LPN documented in this encounterMemorial Hospital10-19-2022 Miscellaneous Notes* Telephone Encounter - Mariana Pacheco LPN - 07/04/2022 1:22 PM EDT Patient calling back to check status of request. Advised since was in [facility] care more than a month ago to schedule for evaluation. Scheduled appt for 07/05 with NON DESTRUCTIVE TESTING SCIENTIST. * Telephone Encounter - Casandra Samaniego RN - 07/03/2022 11:30 AM EDT Patient calls and states that she continues to have frequency with urination and burning with urination. Patient states that she noticed blood when she wiped. Patient was [facility] for urinary urgency on 05/29/2022. Does provider want patient to recheck urine? Patient asking if provider can send in prescription for antibiotics? Please review and advise, Casandra Samaniego RN documented in this encounterMemorial Hospital09-27-2022 History of Present illness Narrative* Little Myles MA - 06/12/2022 9:55 AM EDT POPULATION HEALTH NAVIGATION OUTREACH Action/FYI Patient due for ANTHONY, mammogram, and flu. Mammogram scheduled. Patient completed ANTHONY externally in January with Dr. Burnett. Pt identified by name and : YES, via phone Outreach Outcome/Action Spoke to patient or caregiver: Patient scheduled Did you use a PCP flex slot to schedule this appointment? N/A Reason for Outreach Care Gap or Scheduling/Wellness visits Payer: Payor: [employer] [facility] / Plan: [employer]REGOR [employer] / Product Type: HMO / Care Gap Reviewed:: Breast Cancer screening Diabetic Eye Exam Flu vaccine Reminder: Reminder note to check Health Maintenance for items below Health Maintenance items due: PNEUMOCOCCAL: 65+(1 - PCV) Never done SHINGRIX VACCINE(1 of 2) Never done DIABETIC FOOT EXAM due on 12/18/2018 BONE DENSITY Never done MAMMOGRAM due on 07/02/2019 ADVANCE DIRECTIVE DISCUSSION Never done DILATED RETINAL EXAM due on 02/09/2022 INFLUENZA(1) due on 05/17/2022 URINE ALBUMIN:CREATININE RATIO due on 06/26/2022 LDL CHOLESTEROL due on 06/26/2022 Message Sent to Practice: No Navigation Signature: Little Myles MA June 12, 2022 9:55 AM documented in this encounterMemorial Hospital09-19-2022 Miscellaneous Notes* Telephone Encounter - Heaven Saunders Ma - 06/04/2022 12:33 PM EDT Last office visit: 01/05/22 F/u scheduled: none Heaven Saunders Ma documented in this encounterMemorial Hospital09-15-2022 Miscellaneous Notes* Telephone Encounter - Maggy Rollins LPN - 05/31/2022 5:04 PM EDT Phone call placed, brief message to contact a nurse. Maggy Rollins LPN * Telephone Encounter - Mariana Pacheco LPN - 05/31/2022 3:28 PM EDT Patient returned call and went over results, notes from express care provider with understanding. * Telephone Encounter - Maggy Rollins LPN - 05/31/2022 2:13 PM EDT ----- Message from Laura Vazquez APRN.CNP sent at 05/31/2022 1:49 PM EDT ----- Urine culture did not show clear evidence of infection. She may continue to take antibiotic if it has been helpful (cephalexin). If not improving, recommend follow up with PCP. Laura Vazquez CNP documented in this encounterMemorial Hospital09-13-2022 History of Present illness Narrative* Nita Howard APRN.CNP - 05/29/2022 3:20 PM EDT CC: Patient presents with: Urinary Problem: Frequency, urgency, odor x1 wk, BS 05/28/22 131. Patient had a UTI last month at the beginning of April and was on Macrobid. HPI Barbara Meneses is a 67 year old female who presents with complaint of possible UTI. These symptoms have been present for 7 days. Associated symptoms: urgency and frequency Denies: backpain, fever, chills, sweats, abdominal pain, and flank pain Treatments: nothing The ROS was otherwise negative. PMH, Medications, labs, allergies, and recent past visits with PCP were reviewed and updated as able. 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 Larkin HYSTERECTOMY HX 1993 Total PAST SURGICAL HISTORY OF 1974 right kidney removed THYROIDECTOMY SUBTOTAL/PARTIAL 1991 ALLERGIES Mold, Adhesive Tape (Rosins), and Latex MEDICATIONS albuterol HFA (VENTOLIN HFA) 90 mcg/actuation inhaler Inhale 2 Puffs as instructed every 4 hours asneeded for wheezing/shortness of breath. zolpidem (AMBIEN) 5 mg tablet Take by mouth. Magnesium Oxide-Mg Amino Acid Chelate (MAGNESIUM) 300 mg cap MAGNESIUM CAPS unkdi MAGNESIUM CAPS [phone] Severino Jeffers MD empagliflozin (JARDIANCE) 10 mg tablet Take 1 tablet by mouth once daily. Take 1 tablet once daily in the morning KRILL OIL ORAL Take 1 capsule by mouth once daily. losartan (COZAAR) 50 mg tablet Take 1 tablet by mouth once daily. blood sugar diagnostic (BLOOD GLUCOSE TEST) test strip Test blood sugar(s) 1 times daily. Dx: Type 2 DM - Uncontrolled E11.65 Insulin: No SYNTHROID 137 mcg tablet Take 1 tablet by mouth once daily. Take on empty stomach. For thyroid. ergocalciferol 50,000 unit capsule (VITAMIN D2, DRISDOL) Take 1 capsule by mouth one time a week. ferrous sulfate 325 mg (65 mg iron) tablet Take 325 mg by mouth daily with breakfast. SUMAtriptan (IMITREX) 25 mg tablet TAKE 1 TABLET NEEDED FORMIGRAINE HEADACHE (SEE ADMINISTRATIONINSTRUCTIONS) Lancets lancets Test blood sugar(s) 1 times daily. Dx: Type 2 DM - Uncontrolled E11.65 Insulin: No metFORMIN (GLUCOPHAGE) 1,000 mg tablet Take 1 tablet by mouth twice daily with meals. buPROPion (WELLBUTRIN) 100 mg tablet Take 2 tablets to total 200 mg in the morning and 1 tablet in the evening, total of 300 mg a day omeprazole (PRILOSEC) 20 mg capsule Take 20 mg by mouth once daily. cyanocobalamin (VITAMIN B-12) 1,000 mcg tab Take 1,000 mcg by mouth once daily. cephALEXin (KEFLEX) 500 mg capsule Take 1 capsule by mouth twice daily for 7 days. Saccharomyces boulardii (FLORASTOR) 250 mg capsule Take 1 capsule by mouth once daily. DULoxetine (CYMBALTA) 60 mg capsule TAKE 1 CAPSULE DAILY WITH 30MG CAPSULES TO TOTAL 90MGA DAY (Patient not taking: Reported on 03/28/2022 ) DULoxetine (CYMBALTA) 30 mg capsule Take 1 capsule by mouth once daily. Take 1 capsule PO daily with 60 mg capsule to total 90 mg a day (Patient not taking: Reported on 02/19/2022 ) FAMILY HISTORY Problem Relation Age of Onset Colon Cancer Father other (myasthenia gravis) Father Osteoporosis Mother other (Hepatitis C) Mother Stroke Maternal Grandfather Cancer Brother bladder Social History Tobacco Use Smoking status: Former Smokeless tobacco: Never Tobacco comments: Quit long time ago Vaping Use Vaping Use: Never used Substance Use Topics Alcohol use: Yes Comment: Occasionally Drug use: No ASSESSMENT/PLAN: 1. Urinary urgency - ICD9: 788.63, ICD10: R39.15 - UA DIP, URINE (POC) - URINE CULTURE Placed on Keflex twice a day for a week. If urine culture comes back and we need to change it we will change it at that time. Prescription instructions reviewed with patient as applicable. Potential red flag symptoms discussed with the patient. Reviewed appropriate action plan to take if red flag symptoms occur. Patient agreeable to treatment plan. Nita Howard APRN.JUANA documented in this encounter[facility]22 Instructions* Patient Instructions* Nita Howard APRN.[facility] - 05/29/2022 3:19 PM EDT BLADDER INFECTION OVERVIEW Bladder infections are one of the most common infections, causing symptoms of burning with urination and needing to urinate frequently. A bladder infection is a type of urinary tract infection (UTI).Bladder infections are more common is women than men. Most women have an uncomplicated bladder infection that is easily treated with a short course of antibiotics. In men, bladder infections may alsoaffect the prostate gland, and a longer course of treatment may be needed. BLADDER INFECTION CAUSES The urinary tract includes the kidneys (which filter urine), ureters (the tube that carries urine from the kidneys to the bladder), the bladder (which stores urine), and urethra (the tube that carries urine out of the bladder). Bacteria do not normally live in these areas. However, bacteria normally live close to the urethra in women and men who are not circumcised. Bladder infections occur when bacteria travel up the urethra into the bladder. Factors that increase the risk of developing a bladder infection include: Vaginal sex Use of spermicides History of past bladder infections Diabetes In men, not being circumcised or having anal sex increase the risk of bladder infections. BLADDER INFECTION SYMPTOMS The typical symptoms of a bladder infection include: Pain or burning when urinating Frequent need to urinate Urgent need to urinate Blood in the urine Fever, back pain, nausea, or vomiting are not common symptoms of a bladder infection, but can occurin people with a kidney infection (pyelonephritis). If you have these symptoms, you should call your doctor or nurse immediately. Is it a bladder infection or something else? -- Burning with urination can also occur in people with vaginitis (eg, yeast infection) or urethritis (inflammation of the urethra). For this reason, it is important to call your healthcare provider before assuming you have a bladder infection. BLADDER INFECTION DIAGNOSIS Simple bladder infections are usually diagnosed based upon your symptoms alone. However, most patients, especially those who have bladder infection symptoms for the first time, should see a healthcare provider for urine testing. Urine culture -- A urine culture is a test that uses a sample of urine to try and grow bacteria in a laboratory. It usually requires about 48 hours to get results. However, a urine culture is not always required to diagnose a bladder infection. Urine culture is often recommended if: You have never had a bladder infection before You have symptoms that are not typical for bladder infection You have had resistant bladder infections before You have frequent bladder infections You do not begin to feel better within 24 to 48 hours after starting antibiotics You are BLADDER INFECTION TREATMENT Bladder infection -- In young, healthy adolescents and adults with a bladder infection, the usual treatment includes a three to seven day course of antibiotics. The typical drugs chosen are: trimethoprim-sulfamethoxazole (Bactrim ), nitrofurantoin (Macrobid ), ciprofloxacin (Cipro ) or levofloxacin (Levaquin ). In men, the infection may involve your prostate gland and treatment is usually given for at least 7days. Your symptoms should begin to resolve within one day after starting treatment. It is important to take the full course of antibiotics to completely eliminate the infection. If your symptoms persist for more than two or three days after starting treatment, call your healthcare provider. If needed, you can take a prescription medication that numbs the bladder and urethra (phenazopyridine [Pyridium ]) to reduce the burning pain of some UTIs. A similar medication is available without aprescription (eg, Uristat). Both medications change the color of the urine (usually blue or orange)and can interfere with laboratory testing. You should not take these medications for more than 48 hours due to the risk of side effects. These medications do not treat the infection and must be takenalong with an antibiotic. Some providers recommend drinking more fluids while treating bladder infections to help flush bacteria from the bladder. Others believe that drinking more fluids may dilute the antibiotic in the bladder and make the medication less effective. No studies have been performed to address this issue. There are also no good studies on the effectiveness of cranberry juice for treating a bladder infection; we do not recommend using cranberry juice to treat bladder infections. Follow-up care -- Follow-up testing is not needed in healthy, young men or women with a bladder infection if symptoms resolve. women are usually asked to have a repeat urine culture one to two weeks after treatment has ended to make sure the bacteria are no longer in the urine. RECURRENT BLADDER INFECTIONS Bladder infections versus other causes -- Some adults, especially women, develop bladder infectionsfrequently. In this case, it is important to confirm that your symptoms (eg, pain or burning, frequency, and urgency) are caused by a bladder infection. Symptoms are usually similar from one infection to another. The best way to confirm an infection is to have a urine culture. If your urine culture is negative for infection, other causes of pain, burning, and frequency should be investigated. There is no reason to take antibiotics if your urine culture is negative. Need for further testing -- If you continue to develop bladder infections, you may require further testing. If you continue to notice blood in your urine after your bladder infection has cleared, you should have further testing. Preventing recurrent UTIs -- Women with recurrent urinary tract infections may be advised to take steps to prevent bladder infections, including one or more of the following: Changes in control -- Women who develop frequent bladder infections and use spermicides, particularly those who also use a diaphragm, may be encouraged to use an alternate method of control. Cranberry products -- Taking cranberry juice or cranberry tablets has been promoted as one way to help prevent frequent bladder infections. However, this has not been proven. Drinking more fluid and urinating after intercourse -- Although studies have not proven that drinking more fluids or urinating soon after intercourse can prevent infection, some healthcare providers recommend these measures since they are not harmful. Drinking more fluid may help to wash out bacteria that enter the bladder. Postmenopausal women -- Postmenopausal women who develop recurrent bladder infections may benefit from using vaginal estrogen. Vaginal estrogen is available in a flexible ring that is worn in the vagina for three months (eg, Estring ), a small tablet (Vagifem ), or a cream (eg, Premarin or Estrace ). Vaginal estrogen is discussed in more detail in a separate topic review. Antibiotics -- A preventive antibiotic treatment may be recommended if you repeatedly develop bladder infections and have not responded to other preventive measures. Antibiotics are highly effective in preventing recurrent bladder infections and can be taken in several different ways. Preventive antibiotic -- You can take a low dose of an antibiotic once per day or three times per week for six months to several years. Antibiotics following intercourse -- In women who develop urinary tract infections after sex, taking a single low dose antibiotic after intercourse can help to prevent bladder infections. Self-treatment -- A plan to begin antibiotics at the first sign of a bladder infection may be recommended in some situations. Before starting this regimen, it is important that you have had testing (urine cultures) to confirm that your symptoms are caused by a bladder infection; some people have symptoms of a bladder infection but do not actually have an infection. documented in this encounterMem[facility]08-22-[facility]22 History of Present illness Narrative* Lucina Rivera MA - 05/07/2022 10:29 AM EDT POPULATION HEALTH NAVIGATION OUTREACH Action/FYI Due for: Mammogram Dilated Retinal Exam Left VM; no MyChart Pt identified by name and : NO Outreach Outcome/Action Unable to reach patient: Left message Did you use a PCP flex slot to schedule this appointment? N/A Reason for Outreach Care Gap or Scheduling/Wellness visits Payer: Payor: [employer] / Plan: [email or web address] HMO / Product Type: HMO / Care Gap Reviewed:: Breast Cancer screening Colorectal Cancer Screening Reminder: Reminder note to check Health Maintenance for items below Health Maintenance items due: PNEUMOCOCCAL: 64+(1 - PCV) Never done SHINGRIX VACCINE(1 of 2) Never done DIABETIC FOOT EXAM due on 12/18/2018 BONE DENSITY Never done MAMMOGRAM due on 07/02/2019 ADVANCE DIRECTIVE DISCUSSION Never done DILATED RETINAL EXAM due on 02/09/2022 Message Sent to Practice: No Navigation Signature: Lucina Rivera MA May 07, 2022 10:29 AM documented in this encounterMemorial Hospital07-28-2022 Miscellaneous Notes* Telephone Encounter - Gloria Louie - 04/12/2022 4:39 PM EDT Patient has been identified by name and date of : Yes Pending Prescriptions Disp Refills ALBUTEROL SULFATE HFA 90 MCG/ACTUATION AEROSOL INHALER 36 g 1 Sig: Inhale 2 Puffs as instructed every 4 hours as needed for wheezing/shortness of breath. JEFFERY: No RX INSTRUCTIONS: Patient aware RX escripted to mail away pharmacy. No need to notify patient. Gloria Louie documented in this encounterMemorial Hospital07-13-2022 Instructions* Patient Instructions* Luis Enrique Zuniga MD - 03/28/2022 3:18 PM EDT Images from the original note were not included. Improving Your Health with Fiber This guide provides basic information to help you start increasing dietary fiber in your diet. These are general guidelines that may be tailored to meet your needs. Fiber is an important dietary substance to help support your health. Making changes in your current eating habits will help you eat more healthfully. Most fiber-containing foods are also good sources of vitamins, minerals, and antioxidants, which offer many health benefits. A registered dietitian can provide in-depth nutrition education to help you develop a personal action plan. What is fiber? Fiber is the structural part of plant foods--such as fruits, vegetables, and grains--that our bodies cannot digest or break down. There are two kinds of fiber: soluble and insoluble. Soluble fiber: dissolves in water to form a gummy gel. It can slow down the passage of food from the stomach to the intestine. ? Examples: dried beans, oats, barley, bananas, potatoes, and soft parts of apples and pears Insoluble fiber: often referred to as roughage because it does not dissolve in water. It holds onto water, which helps produce softer, bulkier stools to help regulate bowel movements. ? Examples: whole bran, whole grain products, nuts, corn, carrots, grapes, berries, and peels of apples and pears What other things does fiber do? Research has shown that a diet rich in fiber is associated with many health benefits, including thefollowin. Lowers cholesterol-Soluble fiber has been shown to lower cholesterol by binding to bile (composed of cholesterol) and taking it out of the body. This may help reduce the risk of heart disease. 2. Better regulates blood sugar levels-A high-fiber meal slows down the digestion of food into the intestines, which may help to keep blood sugars from rising rapidly. 3. Weight control-A high-fiber diet may help keep you phipps longer, which prevents overeating and hunger between meals. 4. May prevent intestinal cancer-Insoluble fiber increases the bulk and speed of food moving through the intestinal tract, which reduces time for harmful substances to build up. 5. Constipation-Constipation can often be relieved by increasing the fiber or roughage in your diet. Fiber works to help regulate bowel movements by pulling water into the colon to produce softer, bulkier stools. This action helps to promote better regularity. How much fiber should I eat? The Academy of Nutrition and Dietetics recommends consuming about 25-35 grams of total fiber per day, with 10-15 grams from soluble fiber or 14g of fiber per 1,000 calories. This can be accomplished by choosing 6 ounces of grains (3 or more ounces from whole grains), 2 cups of vegetables, and 2 cups of fruit per day (based on a 2,000 calorie/day pattern). However, as we age, fiber requirements decrease. For those over the age of 70, the recommendation for women is 21 grams and for men 30 grams of total fiber per day. Note: Eating a high-fiber diet may interfere with the absorption and effectiveness of some medications. Speak to your doctor about which medications to take with caution and when to take them. Fiber also binds with certain nutrients and carries them out of the body. To avoid this, aim for the recomm ended 20-35 grams of fiber per day. When eating a high-fiber diet, be sure to drink at least eightglasses of fluid each day. Tips for increasing dietary fiber in your diet: Add fiber to your diet slowly. Too much fiber all at once may cause cramping, bloating, and constipation. When adding fiber to your diet, be sure to increase fluids (at least 64 ounces per day) to prevent constipation. Buy bread with 2-4 grams of dietary fiber per slice. Buy cereals with at least 5 grams of dietary fiber per serving. Choose cereals with a whole grain such as whole wheat or whole grain rolled oats. Choose raw fruits and vegetables in place of juice. Choose products that have a whole grain listed as the first ingredient, not enriched flour. Whole wheat flour is a whole grain--wheat flour is not. Try alternative fiber choices such as whole buckwheat, whole wheat couscous, quinoa, bulgur, wheat germ, aguilar seeds, hemp seeds, lentil pasta, and edamame pasta. Popcorn is a whole grain. Serve it low-fat without butter for a healthier snack choice. Try whole wheat bread and whole wheat pastas. Sprinkle bran in soups, cereals, baked products, spaghetti sauce, ground meat, and casseroles. Branalso mixes well with orange juice. Use dried peas, beans, and legumes in main dishes, salads, or side dishes such as rice or pasta. Eat the skins of raw fruits and vegetables. Add dried fruit to yogurt, cereal, rice, and muffins. Try brown rice and whole grain pastas. Choose crackers with a whole grain listed as the first ingredient. Look for whole grain rye and wheat crackers. Fiber supplements Fiber supplements may be an option if you are not able to get enough fiber from your diet. Fiber supplements can be used to normalize both constipation and diarrhea. Check with your doctor before starting any kind of supplement. Read labels for fiber carefully. Drink at least 8 ounces of liquids with your supplement. Taking some fiber supplements without adequate liquids may cause the fiber to swell and may cause choking and constipation. Take a total of 64oz water daily. Some fiber supplements to consider are Benefiber (wheat dextrin), Metamucil (psyllium), Konsyl (psyllium), Citrucel (methylcellulose), Fibercon (SmartFiber derived from cellulose), and FiberChoice (inulin). Psyllium husk and guar gum are soluble fibers. Consider keeping a food journal and tracking how much fiber you eat in a typical day. Use the fiber content chart in this handout as a guide to meeting your high fiber goal or check with www.NAL.usda.gov/fnic for additional information on the dietary fiber content of food. Fiber Content of Common Foods Food Category Food Serving Size Total Fiber (grams) Soluble Fiber (grams) Starches, Grains, Starchy vegetables Breads Bagel-whole wheat Light white/wheat Rachell-whole wheat Pumpernickel Whole wheat Dillard 3 1/2 inches 2 slices 7 inches slice slice slice 3 1 4 3 2 2 1 trace 1 1 trace 1 Cereals Bran flakes Cheerios Oatmeal Fiber One All Bran Kashi Heart to Heart 3/4 cup 1 1/4 cup 1 cup cooked 1/2 cup 2/3 cup 3/4 cup 5 4 4 14 13 5 trace 1 2 1 1 1 Grains Barley Brown rice Pasta-whole wheat Quinoa Lentil pasta Edamame pasta 1/2 cup cooked 1/2 cup 1/2 cup cooked 1/2 cup cooked 1/2 cup cooked 4 2 3 2 17 22 1 trace 1 1 2 3 Legumes and starchy vegetables Garbanzo beans Kidney beans Lentils Potato (with skin) Potatoes, sweet Squash (winter) Green peas, cooked Gomez beans [place], cooked 1/2 cup 1/2 cup 1/2 cup 1 medium 1/2 cup 1/2 cup 1/2 cup 1/2 cup 1/2 cup 4 6 5 3 4 3 4 7 2 1 3 1 1 2 2 1 3 trace Nuts and Seeds Almonds Peanuts [place] seeds Walnuts Flaxseed(ground) Aguilar Seeds Hemp Seeds 1/4 cup 1/4 cup 1/4 cup 1/4 cup 1/8 c or 2tbsp 1/8 c or 2tbsp 1/8 c or 2tbsp 3 3 3 2 4 10 2 1 1 1 trace 2 7 1 Fruits Apple with skin Banana Blueberries Grapefruit Harleigh Pear with skin Prunes Strawberries 1 medium 1 medium 1 cup 1/2 cup 1 medium 1 medium 3 1 cup 3 2 2 1 3 4 2 4 1 1 trace 1 2 2 1 1 Vegetables, non-starchy Broccoli [place] sprouts Cabbage-green Carrot Cauliflower Green beans Kale Spinach Squash (zucchini) 1/2 cup 1/2 cup 1 cup, fresh 1/2 cup, cooked 1/2 cup, cooked 1/2 cup 1/2 cup 1/2 cup 1/2 cup 3 4 2 2 1 2 3 2 1 1 2 1 1 trace 1 1 1 1 How to read a food label Food labels are standardized by the U.S. government's National Labeling and Education Act (NLEA). Nutrition labels and an ingredient list are required on most foods, so that you can make the best selection for a healthy lifestyle. Review the food label below. Determine the total amount of fiber in this product or ask your registered dietitian or healthcare provider to show you how to read food labels and apply the information to your personal needs. In order for a product to be labeled high fiber, it must contain 5 grams or more of dietary fiber per serving. References [place] Department of Agriculture. 2388-8728 Dietary Guidelines for Americans Accessed 02/10/2016. documented in this encounterMem[facility] Hospital07-13-2022 History of Present illness Narrative* Luis Enrique Zuniga MD - 03/28/2022 2:14 PM EDT Images from the original note were not included. Luis Enrique Zuniga M.D. Colon & Rectal Surgery [address] [facility], [address] [place] [address] ARYAN Meneses is a 67 year old White female with internal and external hemorrhoids HPI The patient was referred by Alberto Larkin III [address] [place] [id number] my recommendation will be sent back. The patient is a pleasant 67-year-old female who notes longstanding issues with hemorrhoids. She notes that these have been present for probably for 5 years, and she has seen Dr. Larkin for these who referred her here. She notes some intermittent blood in her stool which has been present during this entire time, as well as some tissue which makes it hard to feel clean after she is wiping. She sometimes also will have irritation of that tissue causing some aching perineal pain She notes longstanding diarrhea issues with usually 3 bowel movements per day which has been the case for many years but over the last 2 to 3 years these have become persistently looser She is never had any prior hemorrhoid interventions. She is on a probiotic and has been started on Anusol neither of which has seemed to help very much with her symptoms. She last had a colonoscopy 3years ago which to her understanding was normal, but she gets every 5-year colonoscopies because her father had colon cancer. Review of Systems Constitutional: Negative for chills, fever and weight loss. HENT: Negative for congestion, ear pain, hearing loss, sinus pain and sore throat. Eyes: Negative for blurred vision, double vision and pain. Respiratory: Negative for cough, shortness of breath and wheezing. Cardiovascular: Negative. Negative for chest pain, palpitations and leg swelling. Gastrointestinal: Positive for diarrhea. Negative for abdominal pain, constipation, heartburn, nausea and vomiting. Genitourinary: Negative. Negative for dysuria, frequency and urgency. Musculoskeletal: Negative. Negative for back pain, joint pain and neck pain. Skin: Negative for itching and rash. Neurological: Negative for dizziness, weakness and headaches. Endo/Heme/Allergies: Negative for environmental allergies. Bruises/bleeds easily. Psychiatric/Behavioral: Negative for depression and memory loss. The patient is not nervous/anxiousand does not have insomnia. 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 Larkin HYSTERECTOMY HX 1993 Total PAST SURGICAL HISTORY OF 1975 right kidney removed THYROIDECTOMY SUBTOTAL/PARTIAL 1991 Social History Tobacco Use Smoking status: Former Smoker Smokeless tobacco: Never Used Tobacco comment: Quit long time ago Vaping Use Vaping Use: Never used Substance Use Topics Alcohol use: Yes Comment: Occasionally Drug use: No FAMILY HISTORY Problem Relation Age of Onset Colon Cancer Father other (myasthenia gravis) Father Osteoporosis Mother other (Hepatitis C) Mother Stroke Maternal Grandfather Cancer Brother bladder The ROS, medical, surgical, family, and social history were reviewed by Luis Enrique Zuniga MD ALLERGIES Allergen Reactions Mold Unknown Adhesive Tape (Yamel* Rash Latex Itching Current Outpatient Medications Medication Sig zolpidem (AMBIEN) 5 mg tablet Take by mouth. Magnesium Oxide-Mg Amino Acid Chelate (MAGNESIUM) 300 mg cap MAGNESIUM CAPS unkdi MAGNESIUM CAPS [phone] Severino Jeffers MD empagliflozin (JARDIANCE) 10 mg tablet Take 1 tablet by mouth once daily. Take 1 tablet once daily in the morning KRILL OIL ORAL Take 1 capsule by mouth once daily. losartan (COZAAR) 50 mg tablet Take 1 tablet by mouth once daily. blood sugar diagnostic (BLOOD GLUCOSE TEST) test strip Test blood sugar(s) 1 times daily. Dx: Type 2 DM - Uncontrolled E11.65 Insulin: No SYNTHROID 137 mcg tablet Take 1 tablet by mouth once daily. Take on empty stomach. For thyroid. ergocalciferol 50,000 unit capsule (VITAMIN D2, DRISDOL) Take 1 capsule by mouth one time a week. ferrous sulfate (IRON) 325 mg (65 mg iron) tablet Take 325 mg by mouth daily with breakfast. Saccharomyces boulardii (FLORASTOR) 250 mg capsule Take 1 capsule by mouth once daily. SUMAtriptan (IMITREX) 25 mg tablet TAKE 1 TABLET NEEDED FORMIGRAINE HEADACHE (SEE ADMINISTRATIONINSTRUCTIONS) Lancets lancets Test blood sugar(s) 1 times daily. Dx: Type 2 DM - Uncontrolled E11.65 Insulin: No metFORMIN (GLUCOPHAGE) 1,000 mg tablet Take 1 tablet by mouth twice daily with meals. albuterol HFA (VENTOLIN HFA) 90 mcg/actuation inhaler Inhale 2 Puffs as instructed every 4 hours asneeded for Wheezing/Shortness of Breath. buPROPion (WELLBUTRIN) 100 mg tablet Take 2 tablets to total 200 mg in the morning and 1 tablet in the evening, total of 300 mg a day omeprazole (PRILOSEC) 20 mg capsule Take 20 mg by mouth once daily. cyanocobalamin (VITAMIN B-12) 1,000 mcg tab Take 1,000 mcg by mouth once daily. DULoxetine (CYMBALTA) 60 mg capsule TAKE 1 CAPSULE DAILY WITH 30MG CAPSULES TO TOTAL 90MGA DAY (Patient not taking: Reported on 03/28/2022 ) DULoxetine (CYMBALTA) 30 mg capsule Take 1 capsule by mouth once daily. Take 1 capsule PO daily with 60 mg capsule to total 90 mg a day (Patient not taking: Reported on 02/19/2022 ) No current facility-administered medications for this visit. OBJECTIVE BP 115/68 (BP Site: Left Arm, BP Position: Sitting, BP Cuff Size: Large Adult) Pulse 86 Ht 162.6 cm (5' 4) Wt 95.7 kg (211 lb) BMI 36.22 kg/m BMI 36.22 kg/(m^2) Physical Exam Constitutional: General: She is not in acute distress. Appearance: Normal appearance. Cardiovascular: Rate and Rhythm: Normal rate and regular rhythm. Heart sounds: Normal heart sounds. No murmur heard. No friction rub. No gallop. Pulmonary: Effort: Pulmonary effort is normal. No respiratory distress. Breath sounds: Normal breath sounds. No wheezing or rales. Abdominal: General: There is no distension. Palpations: Abdomen is soft. There is no hepatomegaly. Tenderness: There is no abdominal tenderness. Musculoskeletal: General: No deformity. Normal range of motion. Skin: General: Skin is warm and dry. Findings: No rash. Neurological: Mental Status: She is alert. Coordination: Coordination normal. Gait: Gait normal. Psychiatric: Mood and Affect: Mood normal. Judgment: Judgment normal. Perineum: Anoscopy: The patient was placed in left lateral position. On external exam she has mildly enlarged external hemorrhoids in all 3 try dense On digital rectal exam with a lubricated finger she has normal tone, no palpable masses, normal relaxation of the levator with Valsalva After digital exam, the lubricated scope was easily inserted to 7 cm. moderately enlarged right posterior, right anterior, and left lateral internal hemorrhoids and friable overlying mucosa Luis Enrique Zuniga MD 3:15 PM 03/28/22 Hemoglobin (g/dL) Date Value 01/02/2022 12.7 06/26/2021 8.5 Hematocrit (%) Date Value 01/02/2022 40.5 06/26/2021 30.0 WBC (k/uL) Date Value 01/02/2022 4.49 06/26/2021 3.97 Platelet Count (k/uL) Date Value 01/02/2022 122 06/26/2021 139 Creatinine Date Value Ref Range Status 06/26/2021 0.68 0.58 - 0.96 mg/dL Final AST Date Value Ref Range Status 09/01/2021 32 13 - 35 U/L Final ALT Date Value Ref Range Status 09/01/2021 23 7 - 38 U/L Final Bilirubin, Total (mg/dL) Date Value 09/01/2021 0.4 Bilirubin, Conjug (mg/dL) Date Value 09/01/2021 <0.2 WBC (k/uL) Date Value 01/02/2022 4.49 RBC (m/uL) Date Value 01/02/2022 4.83 Bili Total (mg/dL) Date Value 06/12/2017 0.50 %DIG,%DBS Plan ASSESSMENT/PLAN: 1. Internal and external hemorrhoids without complication - ICD9: 455.0, 455.3, ICD10: K64.4, K64.8 I discussed with her different treatment options for internal and external hemorrhoids. She is mostbothered by the symptoms from her external hemorrhoids, most notably the excess tissue which sometimes becomes enlarged and aching and which causes difficulty with perianal hygiene. She is somewhat bothered by the bleeding symptoms as well, but less so. I asked her to start a fiber supplement taking this once daily and trying to work on having 64 ounces of water daily and see how this regulates her bowels and improves her symptoms. If her symptoms are refractory to this, to address the externalhemorrhoids we would probably have to consider hemorrhoidectomy, and I asked her to set up another appointment if she is not making progress in 2 months or so to have this discussion. Follow up: Return for For any new issues or concerns. Luis Enrique Zuniga M.D. Please Note: This office note has been created using [employer], a speech recognition software program, and may contain errors including punctuation, grammar, spelling, gender, and inappropriate words or phrases that pertain to the sytem. documented in this encounterMemorial Hospital06-21-2022 Miscellaneous Notes* Telephone Encounter - Ana Melton Pss - 03/06/2022 9:19 AM EDT Patient has been identified by name and date of : Yes Pending Prescriptions Disp Refills EMPAGLIFLOZIN 10 MG TABLET 90 tablet 1 Sig: Take 1 tablet by mouth once daily. Take 1 tablet once daily in the morning JEFFERY: No RX INSTRUCTIONS: Patient aware RX will be sent to pharmacy. No need to notify patient. Ana Melton Pss documented in this encounterMemorial Hospital05-26-2022 History of Present illness Narrative* Shahrzad Samaniego MA - 02/08/2022 11:04 AM EDT POPULATION HEALTH NAVIGATION OUTREACH Action/ [place] care gap outreach Dilated retinal exam due 02/09/22 Mammogram LVM Mychart not active Pt identified by name and : NO Outreach Outcome/Action Unable to reach patient: Left message Reason for Outreach Care Gap or Scheduling/Wellness visits Payer: Payor: [employer] / Plan: [employer] HMO / Product Type: HMO / Care Gap Reviewed:: Breast Cancer screening Diabetic Eye Exam Reminder: Reminder note to check Health Maintenance for items below Health Maintenance items due: PNEUMOCOCCAL: 64+(1 - PCV) Never done SHINGRIX VACCINE(1 of 2) Never done DIABETIC FOOT EXAM due on 12/18/2018 BONE DENSITY Never done MAMMOGRAM due on 07/02/2019 ADVANCE DIRECTIVE DISCUSSION Never done DILATED RETINAL EXAM due on 02/09/2022 Message Sent to Practice: No Navigation Signature: Shahrzad Samaniego MA February 08, 2022 11:08 AM documented in this encounterMemorial Hospital05-13-2022 Miscellaneous Notes* Telephone Encounter - Medardo Menezes LPN - 01/26/2022 12:46 PM EDT VALERIE 01/05/22 NOV no upcoming appt * Telephone Encounter - Pooja Louie - 01/26/2022 12:42 PM EDT [employer] can be reached at [phone]; opt 2. Ref [id number]. * Telephone Encounter - Pooja Louie - 01/26/2022 12:41 PM EDT Patient has been identified by name and date of : Yes Pending Prescriptions Disp Refills LOSARTAN 50 MG TABLET 90 tablet 3 Sig: Take 1 tablet by mouth once daily. JEFFERY: No RX INSTRUCTIONS: Pharmacy initiated this request. No need to notify patient. Pooja Estevez Pss documented in this encounterMemorial Hospital05-09-2022 Miscellaneous Notes* Telephone Encounter - Rhona Aiken RPh - 01/22/2022 4:38 PM EDT Contacted patient in attempt to reschedule missed Pharmacy appointment for diabetes follow up on 01/22. LVM for patient with instructions to return call to [phone] to re-schedule this visit. Rhona Aiken PharmD, BCACP Primary Care Clinical Pharmacist [facility] documented in this encounterMemorial Hospital05-04-2022 Miscellaneous Notes* Telephone Encounter - Loni Chirinos LPN - 01/17/2022 5:11 PM EDT Spoke with [facility] gave information provided, He voices understanding. * Telephone Encounter - Kavitha Gracia APRN.CNP - 01/17/2022 5:00 PM EDT Patient reports headaches about 2x/week, per office note from 06/26/21. Kavitha Gracia APRN.JUANA * Telephone Encounter - Azucena Zarate LPN - 01/16/2022 12:03 PM EDT Audelia with [facility] calls to ask for insurance purposes how many headaches pt has a week or month. In regards to rx for Imitrex 25 mg tabs #18- if number of headaches is unspecified insurance will allow 4 tabs per 30 days which would be #12 tabs per 90 days. Currently rx is for #18. Please review and advise. Call [facility] @ [phone]. Ref# [id number] Azucena Zarate LPN documented in this encounterMemorial Hospital05-03-2022 History of Present illness Narrative* Alberto Larkin MD - 01/16/2022 10:34 AM EDT Subjective: Patient is a 66-year-old female coming back to see me for evaluation of her hemorrhoidal disease. Previously she has been treated for diverticulitis and has been on numerous antibiotics which is caused her have diarrhea. The diarrhea has been irritating to her hemorrhoids and she feels like things are still coming out and she still having some rectal bleeding. The bleeding has subsided somewhat but the conservative treatment that we been using which has been Anusol HC suppositories really has not done anything to hurt hemorrhoidal disease. Objective:Blood pressure 128/68, pulse 99, temperature 36.3 C (97.4 F), height 162.6 cm (5' 4), weight 93.9 kg (207 lb), SpO2 99 %. Patient has significantly large external component starting at about the 2 o'clock position going all around to the 8 o'clock position. In fact that they looks larger now than it did when I saw her back in September of this year. Assessment: External hemorrhoids Plan: I think since we have had a progression of worsening of her hemorrhoidal disease. And I thinkit be simms for me to get a consultation from colorectal surgery to have her evaluated. I am not sure if she is a good candidate for just a standard hemorrhoidectomy or if she is going to have to havea PPH. documented in this encounterMemorial Hospital04-26-2022 Miscellaneous Notes* Telephone Encounter - Catrina Sutton RN - 01/09/2022 11:04 AM EDT Patient returned call and given provider's message below. Patient denies having any hematuria, flank pain, fever, abdominal pain or other symptoms. Instructed patient to call office if experiencing symptoms. Cee Sutton RN * Telephone Encounter - Abigail Thornton LPN - 01/09/2022 10:53 AM EDT Left message to return call. * Telephone Encounter - Juan Locke DO - 01/08/2022 5:13 PM EDT Please inform patient that her urine culture doesn't show she has a UTI. It does show that she has calcium oxalate crystals which can indicated that she has a kidney stone present. Is she having any hematuria or flank pain or fevers/chills or abdominal pain? If so, we need to do a CT flank Juan Locke DO documented in this encounterMemorial Hospital04-22-2022 Instructions* Patient Instructions* Juan Locke DO - 01/05/2022 10:20 AM EDT A1c was 6.7% Jardiance is an SGLT2 inhibitor medication, this helps control your diabetes but does cause a normal amount of glucose in the urine. Recheck urinalysis and urine culture to make sure the E coli UTI is gone documented in this encounterMemorial Hospital04-22-2022 History of Present illness Narrative* Juan Locke DO - 01/05/2022 9:59 AM EDT Patient presents with: Recheck HPI: Barbara Meneses is a 66 year old female who presents to the office today for review of health conditions. Concerns today: Recently diagnosed with UTI in November, took antibiotics per UC provider as prescribed. Does feel that her symptoms of urinary urgency and frequency did improve. No hematuria. Has been struggling with internal and external hemorrhoids. No improvement with steroid suppositories. Has been seen by Dr. Larkin General surgeon for opinion. Is getting frustrated with symptoms. Does have intermittent constipation which she tries to prevent with bowel regiment of stool softenersand fiber and probiotics. Ms. Meneses has past history of diabetes. Since our last visit she denies excessive thirst or increased frequency of urination, chest pain or dyspnea , new or unusual visual symptoms and low sugar/hypoglycemic reactions. Follows a diabetic diet some of the time. She is compliant with medication(s) and is tolerating med(s) without any side effects. She reports checking her glucose on a once a day schedule with sugars in the <200 range. Patient's last HgA1C was Hemoglobin A1C (%) Date Value 01/02/2022 6.7 09/01/2021 8.6 06/26/2021 9.2 ) Last Ophthalmology exam was within the past 12 months Ms. Meneses reports history of hyperlipidemia. Current therapy includes diet and exercise. Denies side effects of muscle weakness or achiness. Her most recent lipid panels are reviewed. Cholesterol, Total (mg/dL) Date Value 06/26/2021 141 HDL Cholesterol (mg/dL) Date Value 06/26/2021 42 LDL Cholesterol (mg/dL) Date Value 06/26/2021 80 Triglyceride (mg/dL) Date Value 06/26/2021 95 Ms. Meneses indicates a history of hypertension and states that she is feeling well and denies any symptoms referable to elevated blood pressure. Specifically denies headache, chest pain, palpitations, dyspnea and peripheral edema. Patient denies any side effects of her medication(s) and is compliant with their regimen. Last 3 Encounter BP Readings: Date: BP: 01/05/2022 128/70 11/27/2021 134/72 06/26/2021 116/68 She watches her diet for sodium, low fat and low cholesterol some of the time. She does not check BP's generally. Barbara gets minimal exercise. 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 Larkin HYSTERECTOMY HX 1993 Total PAST SURGICAL HISTORY OF 1974 right kidney removed THYROIDECTOMY SUBTOTAL/PARTIAL 1991 Social History Tobacco Use Smoking status: Former Smoker Smokeless tobacco: Never Used Tobacco comment: Quit long time ago Substance Use Topics Alcohol use: Yes Comment: Occasionally Drug use: No FAMILY HISTORY Problem Relation Age of Onset Colon Cancer Father other (myasthenia gravis) Father Osteoporosis Mother other (Hepatitis C) Mother Stroke Maternal Grandfather Cancer Brother bladder Allergies: ALLERGIES Allergen Reactions Mold Unknown Adhesive Tape (Yamel* Rash Latex Itching Current Meds: blood sugar diagnostic (BLOOD GLUCOSE TEST) test strip Test blood sugar(s) 1 times daily. Dx: Type 2 DM - Uncontrolled E11.65 Insulin: No SYNTHROID 137 mcg tablet Take 1 tablet by mouth once daily. Take on empty stomach. For thyroid. ergocalciferol 50,000 unit capsule (VITAMIN D2, DRISDOL) Take 1 capsule by mouth one time a week. ferrous sulfate (IRON) 325 mg (65 mg iron) tablet Take 325 mg by mouth daily with breakfast. Saccharomyces boulardii (FLORASTOR) 250 mg capsule Take 1 capsule by mouth once daily. SUMAtriptan (IMITREX) 25 mg tablet TAKE 1 TABLET NEEDED FORMIGRAINE HEADACHE (SEE ADMINISTRATIONINSTRUCTIONS) blood sugar diagnostic (BLOOD GLUCOSE TEST) test strip Test blood sugar(s) 1 times daily. Dx: Type 2 DM - Uncontrolled E11.65 Insulin: No Lancets lancets Test blood sugar(s) 1 times daily. Dx: Type 2 DM - Uncontrolled E11.65 Insulin: No metFORMIN (GLUCOPHAGE) 1,000 mg tablet Take 1 tablet by mouth twice daily with meals. DULoxetine (CYMBALTA) 60 mg capsule TAKE 1 CAPSULE DAILY WITH 30MG CAPSULES TO TOTAL 90MGA DAY insulin glargine (LANTUS SOLOSTAR U-100 INSULIN) 100 unit/mL (3 mL) Inject 10 Units subcutaneously daily at bedtime. empagliflozin (JARDIANCE) 10 mg tablet Take 1 tablet by mouth once daily. Take 1 tablet once daily in the morning losartan (COZAAR) 50 mg tablet Take 1 tablet by mouth once daily. albuterol HFA (VENTOLIN HFA) 90 mcg/actuation inhaler Inhale 2 Puffs as instructed every 4 hours asneeded for Wheezing/Shortness of Breath. buPROPion (WELLBUTRIN) 100 mg tablet Take 2 tablets to total 200 mg in the morning and 1 tablet in the evening, total of 300 mg a day pravastatin (PRAVACHOL) 40 mg tablet Take 1 tablet by mouth once daily. hydrocortisone (ANUCORT-HC) 25 mg suppository 1 Suppository by RECTAL route twice daily as needed. losartan (COZAAR) 50 mg tablet Take 1 tablet by mouth once daily. DULoxetine (CYMBALTA) 30 mg capsule Take 1 capsule by mouth once daily. Take 1 capsule PO daily with 60 mg capsule to total 90 mg a day zolpidem (AMBIEN) 5 mg tablet Take 1 tablet by mouth at bedtime as needed for up to 196 days. omeprazole (PRILOSEC) 20 mg capsule Take 20 mg by mouth once daily. cyanocobalamin (VITAMIN B-12) 1,000 mcg tab Take 1,000 mcg by mouth once daily. VIT C/VIT E/LUTEIN/MIN/OMEGA-3 (OCUVITE ORAL) Take by mouth. Review of Systems: The remainder of the review of systems is negative. PE: 01/05/22 0936 BP: 128/70 Pulse: 84 Weight: 93 kg (205 lb) Gen: A&O, NAD, non-toxic appearing, Pleasant, cooperative HEENT: NT/AC, PERRLA, EOMs intact b/l, nares clear and patent b/l, pharynx without erythema, exudate or lesions. Uvula midline. MMM Neck: supple, No cervical LAD, no thyromegaly, no carotid bruits CV: RRR, normal S1 and S2, no murmurs, no gallops, no rubs, Pulses 2+ and symmetric in UE and LE b/l Lungs: normal respiratory effort, CTA b/l, no wheezing or rhonchi or rales Abd: soft, Overweight, NT, ND, +BS, no hepatosplenomegaly MS: FROM all 4 extremities Neuro: CN II-XII intact b/l, strength 5/5 b/l UE and LE, DTRs 2/4 UE and LE, sensation intact. Skin: warm, dry, intact, No rashes or lesions on exposed skin. Foot exam: Monofilament wnl on right and left feet. ASSESSMENT/PLAN: 1. Controlled type 2 diabetes mellitus without complication, without long-term current use of insulin (HCC) - ICD9: 250.00, ICD10: E11.9 (primary diagnosis) Controlled. improved control - Continue current medications - Blood glucose monitoring on a once a day schedule - HGB A1C - COMP METABOLIC PANEL - CBC 2. Acute cystitis without hematuria - ICD9: 595.0, ICD10: N30.00 Recheck urine and urine culture as ordered. Unsure if symptoms have resolved, had E coli infection - URINE CULTURE - URINALYSIS, WITH MICROSCOPIC 3. Hypothyroidism, acquired - ICD9: 244.9, ICD10: E03.9 - Instructed patient on importance of taking on an empty stomach either first thing in the morning or at bedtime. Stable - Eat well program and - Continue current medications - TSH BLD - T4 FREE/FREE THYROX 4. Anemia, unspecified type - ICD9: 285.9, ICD10: D64.9 - stable, hx of 5. Vitamin D deficiency - ICD9: 268.9, ICD10: E55.9 - continue supplements 6. Hypertension, essential - ICD9: 401.9, ICD10: I10 - good control - Continue current medication(s) - Encouraged dietary sodium restriction/DASH diet - Recommended regular aerobic exercise. - Recommend home blood pressure monitoring, to bring results in on next visit - Goal of BP <130/80 7. Dyslipidemia - ICD9: 272.4, ICD10: E78.5 - to be determined upon return of lab results - Encouraged following a low fat, low cholesterol diet. - Discussed the benefits of regular aerobic exercise and weight loss. - Check fasting lipid panel - LIPID PANEL BASIC 8. Internal hemorrhoids - ICD9: 455.0, ICD10: K64.8 - referral to surgeon, needs to continue to manage bowel function and prevent constipation as well as d/w her today - CONSULT TO GENERAL SURGERY 9. Rectal bleeding - ICD9: 569.3, ICD10: K62.5 - referral to surgeon, needs to continue to manage bowel function and prevent constipation as well as d/w her today - CONSULT TO GENERAL SURGERY 10. Irritable bowel syndrome with alternating bowel habits - ICD9: , ICD10: K58.2 - referral to surgeon, needs to continue to manage bowel function and prevent constipation as well as d/w her today - CONSULT TO GENERAL SURGERY Juan Locke DO To ER if develops chest pain, shortness of breath, or severe worsening of symptoms. Discussed risks, benefits, alternatives, and potential side effects of medications. Patient expressed understanding and agreed with the plan. Juan Locke DO [address] [place] [address] documented in this encounterMemorial Hospital04-18-2022 Miscellaneous Notes* Telephone Encounter - SHERRY Maynard - 01/01/2022 9:12 AM EDT This Sw received referral for patient. Sw will meet with patient during Diabetes Ed Program as SW and Nurse meet with patient during first visit of program. Sheila notes that patient has bella advised to call in and speak with scheduling to schedule with diabetes team. documented in this encounterMemorial Hospital04-14-2022 Miscellaneous Notes* Telephone Encounter - Destiny Rollins LPN - 12/28/2021 4:33 PM EDT Left a detailed message for pt to call and ask to speak to a inbound sales manager to get an apt with the Structured DM program. Destiny Rollins LPN * Telephone Encounter - Nury Alexander APRN.CNP - 12/27/2021 5:00 PM EDT New orders signed. Nury Alexander APRN.CNP * Telephone Encounter - Mariana Pacheco LPN - 12/27/2021 4:49 PM EDT Patient returned call and assisted with getting inbound sales manager. Patient aware office will call her back to get scheduled when orders are in place. Movie Writer said orders were not correct for the diabetes program. Movie Writer had given me the consults to put in for the program, needs diagnosis checked and completed. Please advise * Telephone Encounter - Christine Campbell RN - 12/27/2021 4:31 PM EDT Called and left a voicemail for the Patient to call back and ask for a nurse to receive the providers message. Christine Campbell RN * Telephone Encounter - Nury Alexander APRN.CNP - 12/27/2021 4:20 PM EDT Order placed, please assist her to schedule. Nury Alexander APRN.CNP * Telephone Encounter - Destiny Rollins LPN - 12/27/2021 4:09 PM EDT Pt called and would like to get into the Structured Diabetes Program. Once the order is placed please call pt and help her get started with apt on a Saturday AM. Not certain how to put the orders in. Destiny Rollins LPN documented in this encounterMemorial Hospital04-14-2022 Miscellaneous Notes* Telephone Encounter - JACY Martin - 12/28/2021 2:54 PM EDT Patient returned the call. New appt on 01/22/22. * Telephone Encounter - JACY Knutson - 12/28/2021 10:29 AM EDT Telephoned the patient to schedule med/rev appt. Left a message. documented in this encounterMemorial Hospital03-23-2022 Miscellaneous Notes* Telephone Encounter - Pooja Matias LPN - 12/06/2021 2:54 PM EDT Pt. informed detailed message left on VM. Pooja Matias LPN * Telephone Encounter - Kavitha Gracia APRN.JUANA - 12/06/2021 2:06 PM EDT Looking at urine culture, lets try antibiotic Bactrim x 7 days to see if this will clear it up. Based on urine culture, this should cure. If symptoms persist, please schedule appointment to further investigate. The following approved medication requests have been transmitted electronically. Signed Prescriptions Disp Refills sulfamethoxazole-trimethoprim (BACTRIM DS) 800-160 mg per tablet 14 tablet 0 Sig: Take 1 tablet by mouth twice daily for 7 days. Authorizing Provider: KAVITHA GRACIA APRN.CNP * Telephone Encounter - Casandra Samaniego RN - 12/06/2021 1:43 PM EDT Patient calls and is notified of provider instructions. Patient was seen in urgent care on 11/27 and had urine testing done which showed UTI. Patient was put on Keflex. Patient states that she continues to have urinary frequency and pressure. Patient asking if she needs to be put on more antibiotics? Patient states that if feels worse than when she started medication. Please review and advise, Casandra Samaniego RN * Telephone Encounter - Loni Chirinos LPN - 12/04/2021 1:22 PM EDT Left message to return call. * Telephone Encounter - Kavitha Gracia APRN.CNP - 12/04/2021 12:04 PM EDT Please let patient know that: The glucose in her urine is the body's way of getting rid of the excess glucose in her body due to her uncontrolled DM. There are no ketones in urine which is a good sign. Blood work is ordered from 09/04 that will check kidney function. I will place an order for HgA1c as well to check DM status. Continue with current insulin and medication regimen for DM. Please get blood work just prior to upcoming appointment. Kavitha Gracia APRN.CNP * Telephone Encounter - Destiny Rollins LPN - 12/04/2021 10:32 AM EDT Pt calling concerned with having sugar in her urine. 1. She is checking to see if she needs to have further testing done. 2. Is there a lab test to check the function of her kidneys. 3. Does she need to be concerned with sugar showing up in her urine? Please advise. Destiny Rollins LPN documented in this encounterMemorial Hospital10-11-2021 History of Present illness Narrative* Karon Ellis RT(R) - 06/26/2021 1:10 PM EDT * Hanna Ortiz RT(R) - 06/26/2021 1:10 PM EDT Radiology Service Progress Note PATIENT NAME: Barbara Meneses DATE OF SERVICE: June 26, 2021 TIME: 1:15 PM PATIENT IDENTITY VERIFICATION COMPLETED USING TWO (2) IDENTIFIERS: Name and Date of confirmedby patient verbally. FALL SCREENING: Has the patient had 2 falls in the last year or 1 fall with injury or currently using an Ambulatory Assistive Device (Walker, Cane, Wheelchair, Crutches, etc.)? No PATIENT GENDER DATA: Female. status: : No status: NO. PATIENT RELEVANT IMPLANT DATA REVIEWED: Not Applicable RADIOLOGY DEPARTMENT: General X-ray: Exam(s) Completed: Spine X-Ray(s): Cervical AP / LAT / OBL PERIPHERAL IV DATA: Not applicable SIGNED BY: RT Emiliano(R) June 26, 2021 1:15 PM [facility] History of Present illness Narrative* Huma Ng (Tech), Tech - 11/11/2020 12:50 PM EST Radiology Service Progress Note PATIENT NAME: Barbara Meneses DATE OF SERVICE: November 11, 2020 TIME: 12:42 PM PATIENT IDENTITY VERIFICATION COMPLETED USING TWO (2) IDENTIFIERS: Name and Date of confirmedby patient verbally. FALL SCREENING: Has the patient had 2 falls in the last year or 1 fall with injury or currently using an Ambulatory Assistive Device (Walker, Cane, Wheelchair, Crutches, etc.)? No PATIENT GENDER DATA: Female. status: : No status: NO. PATIENT RELEVANT IMPLANT DATA REVIEWED: Not Applicable RADIOLOGY DEPARTMENT: General X-ray: Exam(s) Completed: Lower Extremity X- Ray(s): Foot, Left and Wt. Bearing: PERIPHERAL IV DATA: Not applicable SIGNED BY: Tara Taylor November 11, 2020 12:42 PM [facility] History of Past illness Narrative* Problem Noted Date Resolved Date Diabetes mellitus type 2, un controlled, without complications 03/10/2019 08/29/2020 Acute pain of right shoulder 11/06/2017 Acute right-sided low back pain with right-sided sciatica 03/18/2017 08/29/2020 Diabetes mellitus type 2, controlled, without co mplications 08/19/2015 08/29/2020 documented as of this encounter (statuses as of 12/06/2021) [facility]* Problem Noted Date Resolved Date Diabetes mellitus type 2, un controlled, without complications 03/10/2019 08/29/2020 Acute pain of right shoulder 11/06/2017 Acute right-sided low back pain with right-sided sciatica 03/18/2017 08/29/2020 Diabetes mellitus type 2, controlled, without co mplications 08/19/2015 08/29/2020 documented as of this encounter (statuses as of 12/28/2021) [facility] Narrative* Problem Noted Date Resolved Date Diabetes mellitus type 2, un controlled, without complications 03/10/2019 08/29/2020 Acute pain of right shoulder 11/06/2017 Acute right-sided low back pain with right-sided sciatica 03/18/2017 08/29/2020 Diabetes mellitus type 2, controlled, without co mplications 08/19/2015 08/29/2020 documented as of this encounter (statuses as of 12/28/2021) [address]25-2019 History of Past illness Narrative* Problem Noted Date Resolved Date Diabetes mellitus type 2, un controlled, without complications 03/10/2019 08/29/2020 Acute pain of right shoulder 11/06/2017 Acute right-sided low back pain with right-sided sciatica 03/18/2017 08/29/2020 Diabetes mellitus type 2, controlled, without co mplications 08/19/2015 08/29/2020 documented as of this encounter (statuses as of 01/01/2022) [facility]* Problem Noted Date Resolved Date Diabetes mellitus type 2, un controlled, without complications 03/10/2019 08/29/2020 Acute pain of right shoulder 11/06/2017 Acute right-sided low back pain with right-sided sciatica 03/18/2017 08/29/2020 Diabetes mellitus type 2, controlled, without co mplications 08/19/2015 08/29/2020 documented as of this encounter (statuses as of 01/08/2022) [facility]arrative* Problem Noted Date Resolved Date Diabetes mellitus type 2, un controlled, without complications 03/10/2019 08/29/2020 Acute pain of right shoulder 11/06/2017 Acute right-sided low back pain with right-sided sciatica 03/18/2017 08/29/2020 Diabetes mellitus type 2, controlled, without co mplications 08/19/2015 08/29/2020 documented as of this encounter (statuses as of 01/16/2022) [facility]arrative* Problem Noted Date Resolved Date Diabetes mellitus type 2, un controlled, without complications 03/10/2019 08/29/2020 Acute pain of right shoulder 11/06/2017 Acute right-sided low back pain with right-sided sciatica 03/18/2017 08/29/2020 Diabetes mellitus type 2, controlled, without co mplications 08/19/2015 08/29/2020 documented as of this encounter (statuses as of 01/17/2022) [facility]* Problem Noted Date Resolved Date Diabetes mellitus type 2, un controlled, without complications 03/10/2019 08/29/2020 Acute pain of right shoulder 11/06/2017 Acute right-sided low back pain with right-sided sciatica 03/18/2017 08/29/2020 Diabetes mellitus type 2, controlled, without co mplications 08/19/2015 08/29/2020 documented as of this encounter (statuses as of 01/19/2022) [facility]* Problem Noted Date Resolved Date Diabetes mellitus type 2, un controlled, without complications 03/10/2019 08/29/2020 Acute pain of right shoulder 11/06/2017 Acute right-sided low back pain with right-sided sciatica 03/18/2017 08/29/2020 Diabetes mellitus type 2, controlled, without co mplications 08/19/2015 08/29/2020 documented as of this encounter (statuses as of 01/26/2022) [facility]* Problem Noted Date Resolved Date Diabetes mellitus type 2, un controlled, without complications 03/10/2019 08/29/2020 Acute pain of right shoulder 11/06/2017 Acute right-sided low back pain with right-sided sciatica 03/18/2017 08/29/2020 Diabetes mellitus type 2, controlled, without co mplications 08/19/2015 08/29/2020 documented as of this encounter (statuses as of 02/08/2022) [facility]* Problem Noted Date Resolved Date Diabetes mellitus type 2, un controlled, without complications 03/10/2019 08/29/2020 Acute pain of right shoulder 11/06/2017 Acute right-sided low back pain with right-sided sciatica 03/18/2017 08/29/2020 Diabetes mellitus type 2, controlled, without co mplications 08/19/2015 08/29/2020 documented as of this encounter (statuses as of 03/07/2022) [facility]* Problem Noted Date Resolved Date Diabetes mellitus type 2, un controlled, without complications 03/10/2019 08/29/2020 Acute pain of right shoulder 11/06/2017 Acute right-sided low back pain with right-sided sciatica 03/18/2017 08/29/2020 Diabetes mellitus type 2, controlled, without co mplications 08/19/2015 08/29/2020 documented as of this encounter (statuses as of 03/13/2022) [facility]* Problem Noted Date Resolved Date Diabetes mellitus type 2, un controlled, without complications 03/10/2019 08/29/2020 Acute pain of right shoulder 11/06/2017 Acute right-sided low back pain with right-sided sciatica 03/18/2017 08/29/2020 Diabetes mellitus type 2, controlled, without co mplications 08/19/2015 08/29/2020 documented as of this encounter (statuses as of 03/26/2022) [facility]* Problem Noted Date Resolved Date Diabetes mellitus type 2, un controlled, without complications 03/10/2019 08/29/2020 Acute pain of right shoulder 11/06/2017 Acute right-sided low back pain with right-sided sciatica 03/18/2017 08/29/2020 Diabetes mellitus type 2, controlled, without co mplications 08/19/2015 08/29/2020 documented as of this encounter (statuses as of 03/28/2022) [facility]* Problem Noted Date Resolved Date Diabetes mellitus type 2, un controlled, without complications 03/10/2019 08/29/2020 Acute pain of right shoulder 11/06/2017 Acute right-sided low back pain with right-sided sciatica 03/18/2017 08/29/2020 Diabetes mellitus type 2, controlled, without co mplications 08/19/2015 08/29/2020 documented as of this encounter (statuses as of 04/12/2022) [facility]* Problem Noted Date Resolved Date Diabetes mellitus type 2, un controlled, without complications 03/10/2019 08/29/2020 Acute pain of right shoulder 11/06/2017 Acute right-sided low back pain with right-sided sciatica 03/18/2017 08/29/2020 Diabetes mellitus type 2, controlled, without co mplications 08/19/2015 08/29/2020 documented as of this encounter (statuses as of 05/07/2022) [facility]* Problem Noted Date Resolved Date Diabetes mellitus type 2, un controlled, without complications 03/10/2019 08/29/2020 Acute pain of right shoulder 11/06/2017 Acute right-sided low back pain with right-sided sciatica 03/18/2017 08/29/2020 Diabetes mellitus type 2, controlled, without co mplications 08/19/2015 08/29/2020 documented as of this encounter (statuses as of 05/29/2022) [facility]* Problem Noted Date Resolved Date Diabetes mellitus type 2, un controlled, without complications 03/10/2019 08/29/2020 Acute pain of right shoulder 11/06/2017 Acute right-sided low back pain with right-sided sciatica 03/18/2017 08/29/2020 Diabetes mellitus type 2, controlled, without co mplications 08/19/2015 08/29/2020 documented as of this encounter (statuses as of 06/06/2022) [facility]* Problem Noted Date Resolved Date Diabetes mellitus type 2, un controlled, without complications 03/10/2019 08/29/2020 Acute pain of right shoulder 11/06/2017 Acute right-sided low back pain with right-sided sciatica 03/18/2017 08/29/2020 Diabetes mellitus type 2, controlled, without co mplications 08/19/2015 08/29/2020 documented as of this encounter (statuses as of 06/12/2022) [facility]* Problem Noted Date Resolved Date Diabetes mellitus type 2, un controlled, without complications 03/10/2019 08/29/2020 Acute pain of right shoulder 11/06/2017 Acute right-sided low back pain with right-sided sciatica 03/18/2017 08/29/2020 Diabetes mellitus type 2, controlled, without co mplications 08/19/2015 08/29/2020 documented as of this encounter (statuses as of 06/22/2022) [facility]* Problem Noted Date Resolved Date Diabetes mellitus type 2, un controlled, without complications 03/10/2019 08/29/2020 Acute pain of right shoulder 11/06/2017 Acute right-sided low back pain with right-sided sciatica 03/18/2017 08/29/2020 Diabetes mellitus type 2, controlled, without co mplications 08/19/2015 08/29/2020 documented as of this encounter (statuses as of 07/04/2022) [facility]* Problem Noted Date Resolved Date Diabetes mellitus type 2, un controlled, without complications 03/10/2019 08/29/2020 Acute pain of right shoulder 11/06/2017 Acute right-sided low back pain with right-sided sciatica 03/18/2017 08/29/2020 Diabetes mellitus type 2, controlled, without co mplications 08/19/2015 08/29/2020 documented as of this encounter (statuses as of 10/04/2022) [facility]* Problem Noted Date Resolved Date Diabetes mellitus type 2, un controlled, without complications 03/10/2019 08/29/2020 Acute pain of right shoulder 11/06/2017 Acute right-sided low back pain with right-sided sciatica 03/18/2017 08/29/2020 Diabetes mellitus type 2, controlled, without co mplications 08/19/2015 08/29/2020 documented as of this encounter (statuses as of 10/17/2022) [facility]* Problem Noted Date Resolved Date Diabetes mellitus type 2, un controlled, without complications 03/10/2019 08/29/2020 Acute pain of right shoulder 11/06/2017 Acute right-sided low back pain with right-sided sciatica 03/18/2017 08/29/2020 Diabetes mellitus type 2, controlled, without co mplications 08/19/2015 08/29/2020 documented as of this encounter (statuses as of 10/23/2022) [facility]* Problem Noted Date Resolved Date Diabetes mellitus type 2, un controlled, without complications 03/10/2019 08/29/2020 Acute pain of right shoulder 11/06/2017 Acute right-sided low back pain with right-sided sciatica 03/18/2017 08/29/2020 Diabetes mellitus type 2, controlled, without co mplications 08/19/2015 08/29/2020 documented as of this encounter (statuses as of 11/09/2022) [facility]* Problem Noted Date Resolved Date Diabetes mellitus type 2, un controlled, without complications 03/10/2019 08/29/2020 Acute pain of right shoulder 11/06/2017 Acute right-sided low back pain with right-sided sciatica 03/18/2017 08/29/2020 Diabetes mellitus type 2, controlled, without co mplications 08/19/2015 08/29/2020 documented as of this encounter (statuses as of 11/14/2022) [facility]* Problem Noted Date Resolved Date Diabetes mellitus type 2, un controlled, without complications 03/10/2019 08/29/2020 Acute pain of right shoulder 11/06/2017 Acute right-sided low back pain with right-sided sciatica 03/18/2017 08/29/2020 Diabetes mellitus type 2, controlled, without co mplications 08/19/2015 08/29/2020 documented as of this encounter (statuses as of 11/29/2022) [facility]* Problem Noted Date Resolved Date Diabetes mellitus type 2, un controlled, without complications 03/10/2019 08/29/2020 Acute pain of right shoulder 11/06/2017 Acute right-sided low back pain with right-sided sciatica 03/18/2017 08/29/2020 Diabetes mellitus type 2, controlled, without co mplications 08/19/2015 08/29/2020 documented as of this encounter (statuses as of 12/07/2022) [facility]* Problem Noted Date Resolved Date Diabetes mellitus type 2, un controlled, without complications 03/10/2019 08/29/2020 Acute pain of right shoulder 11/06/2017 Acute right-sided low back pain with right-sided sciatica 03/18/2017 08/29/2020 Diabetes mellitus type 2, controlled, without co mplications 08/19/2015 08/29/2020 documented as of this encounter (statuses as of 12/26/2022) [facility]* Problem Noted Date Resolved Date Diabetes mellitus type 2, un controlled, without complications 03/10/2019 08/29/2020 Acute pain of right shoulder 11/06/2017 Acute right-sided low back pain with right-sided sciatica 03/18/2017 08/29/2020 Diabetes mellitus type 2, controlled, without co mplications 08/19/2015 08/29/2020 documented as of this encounter (statuses as of 12/29/2022) [facility]* Problem Noted Date Resolved Date Diabetes mellitus type 2, un controlled, without complications 03/10/2019 08/29/2020 Acute pain of right shoulder 11/06/2017 Acute right-sided low back pain with right-sided sciatica 03/18/2017 08/29/2020 Diabetes mellitus type 2, controlled, without co mplications 08/19/2015 08/29/2020 documented as of this encounter (statuses as of 12/31/2022) [facility]* Problem Noted Date Resolved Date Diabetes mellitus type 2, un controlled, without complications 03/10/2019 08/29/2020 Acute pain of right shoulder 11/06/2017 Acute right-sided low back pain with right-sided sciatica 03/18/2017 08/29/2020 Diabetes mellitus type 2, controlled, without co mplications 08/19/2015 08/29/2020 documented as of this encounter (statuses as of 02/14/2023) [facility]* Problem Noted Date Resolved Date Diabetes mellitus type 2, un controlled, without complications 03/10/2019 08/29/2020 Acute pain of right shoulder 11/06/2017 Acute right-sided low back pain with right-sided sciatica 03/18/2017 08/29/2020 Diabetes mellitus type 2, controlled, without co mplications 08/19/2015 08/29/2020 documented as of this encounter (statuses as of 02/16/2023) [facility]* Problem Noted Date Resolved Date Diabetes mellitus type 2, un controlled, without complications 03/10/2019 08/29/2020 Acute pain of right shoulder 11/06/2017 Acute right-sided low back pain with right-sided sciatica 03/18/2017 08/29/2020 Diabetes mellitus type 2, controlled, without co mplications 08/19/2015 08/29/2020 documented as of this encounter (statuses as of 02/20/2023) [facility]* Problem Noted Date Resolved Date Diabetes mellitus type 2, un controlled, without complications 03/10/2019 08/29/2020 Acute pain of right shoulder 11/06/2017 Acute right-sided low back pain with right-sided sciatica 03/18/2017 08/29/2020 Diabetes mellitus type 2, controlled, without co mplications 08/19/2015 08/29/2020 documented as of this encounter (statuses as of 02/27/2023) [facility]* Problem Noted Date Resolved Date Diabetes mellitus type 2, un controlled, without complications 03/10/2019 08/29/2020 Acute pain of right shoulder 11/06/2017 Acute right-sided low back pain with right-sided sciatica 03/18/2017 08/29/2020 Diabetes mellitus type 2, controlled, without co mplications 08/19/2015 08/29/2020 documented as of this encounter (statuses as of 03/06/2023) [facility]* Problem Noted Date Resolved Date Diabetes mellitus type 2, un controlled, without complications 03/10/2019 08/29/2020 Acute pain of right shoulder 11/06/2017 Acute right-sided low back pain with right-sided sciatica 03/18/2017 08/29/2020 Diabetes mellitus type 2, controlled, without co mplications 08/19/2015 08/29/2020 documented as of this encounter (statuses as of 03/19/2023) [facility]* Problem Noted Date Diagnosed Date Resolved Date Diabetes mellitus type 2, un controlled, without complications 03/10/2019 08/29/2020 Acute pain of right shoulder 11/06/2017 08/29/2020 Acute right-sided low back p ain with right-sided sciatica 03/18/2017 08/29/2020 Diabetes mellitus type 2, co ntrolled, without complications 08/19/2015 08/29/2020 documented as of this encounter (statuses as of 03/27/2023) [facility]* Problem Noted Date Diagnosed Date Resolved Date Diabetes mellitus type 2, un controlled, without complications 03/10/2019 08/29/2020 Acute pain of right shoulder 11/06/2017 08/29/2020 Acute right-sided low back p ain with right-sided sciatica 03/18/2017 08/29/2020 Diabetes mellitus type 2, co ntrolled, without complications 08/19/2015 08/29/2020 documented as of this encounter (statuses as of 05/02/2023) [facility]* Problem Noted Date Diagnosed Date Resolved Date Diabetes mellitus type 2, un controlled, without complications 03/10/2019 08/29/2020 Acute pain of right shoulder 11/06/2017 08/29/2020 Acute right-sided low back p ain with right-sided sciatica 03/18/2017 08/29/2020 Diabetes mellitus type 2, co ntrolled, without complications 08/19/2015 08/29/2020 documented as of this encounter (statuses as of 05/02/2023) [facility]* Problem Noted Date Diagnosed Date Resolved Date Diabetes mellitus type 2, un controlled, without complications 03/10/2019 08/29/2020 Acute pain of right shoulder 11/06/2017 08/29/2020 Acute right-sided low back p ain with right-sided sciatica 03/18/2017 08/29/2020 Diabetes mellitus type 2, co ntrolled, without complications 08/19/2015 08/29/2020 documented as of this encounter (statuses as of 05/08/2023) [facility]* Problem Noted Date Diagnosed Date Resolved Date Diabetes mellitus type 2, un controlled, without complications 03/10/2019 08/29/2020 Acute pain of right shoulder 11/06/2017 08/29/2020 Acute right-sided low back p ain with right-sided sciatica 03/18/2017 08/29/2020 Diabetes mellitus type 2, co ntrolled, without complications 08/19/2015 08/29/2020 documented as of this encounter (statuses as of 05/08/2023) [facility]* Problem Noted Date Diagnosed Date Resolved Date Diabetes mellitus type 2, un controlled, without complications 03/10/2019 08/29/2020 Acute pain of right shoulder 11/06/2017 08/29/2020 Acute right-sided low back p ain with right-sided sciatica 03/18/2017 08/29/2020 Diabetes mellitus type 2, co ntrolled, without complications 08/19/2015 08/29/2020 documented as of this encounter (statuses as of 05/13/2023) [facility]* Problem Noted Date Diagnosed Date Resolved Date Diabetes mellitus type 2, un controlled, without complications 03/10/2019 08/29/2020 Acute pain of right shoulder 11/06/2017 08/29/2020 Acute right-sided low back p ain with right-sided sciatica 03/18/2017 08/29/2020 Diabetes mellitus type 2, co ntrolled, without complications 08/19/2015 08/29/2020 documented as of this encounter (statuses as of 07/04/2023) [facility]* Problem Noted Date Diagnosed Date Resolved Date Diabetes mellitus type 2, un controlled, without complications 03/10/2019 08/29/2020 Acute pain of right shoulder 11/06/2017 08/29/2020 Acute right-sided low back p ain with right-sided sciatica 03/18/2017 08/29/2020 Diabetes mellitus type 2, co ntrolled, without complications 08/19/2015 08/29/2020 documented as of this encounter (statuses as of 07/18/2023) [facility]* Problem Noted Date Diagnosed Date Resolved Date Diabetes mellitus type 2, un controlled, without complications 03/10/2019 08/29/2020 Acute pain of right shoulder 11/06/2017 08/29/2020 Acute right-sided low back p ain with right-sided sciatica 03/18/2017 08/29/2020 Diabetes mellitus type 2, co ntrolled, without complications 08/19/2015 08/29/2020 documented as of this encounter (statuses as of 07/22/2023) [facility]* Problem Noted Date Diagnosed Date Resolved Date Diabetes mellitus type 2, un controlled, without complications 03/10/2019 08/29/2020 Acute pain of right shoulder 11/06/2017 08/29/2020 Acute right-sided low back p ain with right-sided sciatica 03/18/2017 08/29/2020 Diabetes mellitus type 2, co ntrolled, without complications 08/19/2015 08/29/2020 documented as of this encounter (statuses as of 07/27/2023) [facility]* Problem Noted Date Diagnosed Date Resolved Date Diabetes mellitus type 2, un controlled, without complications 03/10/2019 08/29/2020 Acute pain of right shoulder 11/06/2017 08/29/2020 Acute right-sided low back p ain with right-sided sciatica 03/18/2017 08/29/2020 Diabetes mellitus type 2, co ntrolled, without complications 08/19/2015 08/29/2020 documented as of this encounter (statuses as of 07/30/2023) [facility]* Problem Noted Date Diagnosed Date Resolved Date Diabetes mellitus type 2, un controlled, without complications 03/10/2019 08/29/2020 Acute pain of right shoulder 11/06/2017 08/29/2020 Acute right-sided low back p ain with right-sided sciatica 03/18/2017 08/29/2020 Diabetes mellitus type 2, co ntrolled, without complications 08/19/2015 08/29/2020 documented as of this encounter (statuses as of 07/31/2023) [facility]* Problem Noted Date Diagnosed Date Resolved Date Diabetes mellitus type 2, un controlled, without complications 03/10/2019 08/29/2020 Acute pain of right shoulder 11/06/2017 08/29/2020 Acute right-sided low back p ain with right-sided sciatica 03/18/2017 08/29/2020 Diabetes mellitus type 2, co ntrolled, without complications 08/19/2015 08/29/2020 documented as of this encounter (statuses as of 08/01/2023) [facility] [facility] Narrative* Problem Noted Date Diagnosed Date Resolved Date Diabetes mellitus type 2, un controlled, without complications 03/10/2019 08/29/2020 Acute pain of right shoulder 11/06/2017 08/29/2020 Acute right-sided low back p ain with right-sided sciatica 03/18/2017 08/29/2020 Diabetes mellitus type 2, co ntrolled, without complications 08/19/2015 08/29/2020 documented as of this encounter (statuses as of 08/19/2023) [facility]* Problem Noted Date Diagnosed Date Resolved Date Diabetes mellitus type 2, un controlled, without complications 03/10/2019 08/29/2020 Acute pain of right shoulder 11/06/2017 08/29/2020 Acute right-sided low back p ain with right-sided sciatica 03/18/2017 08/29/2020 Diabetes mellitus type 2, co ntrolled, without complications 08/19/2015 08/29/2020 documented as of this encounter (statuses as of 08/20/2023) [facility]* Problem Noted Date Diagnosed Date Resolved Date Diabetes mellitus type 2, un controlled, without complications 03/10/2019 08/29/2020 Acute pain of right shoulder 11/06/2017 08/29/2020 Acute right-sided low back p ain with right-sided sciatica 03/18/2017 08/29/2020 Diabetes mellitus type 2, co ntrolled, without complications 08/19/2015 08/29/2020 documented as of this encounter (statuses as of 08/21/2023) [facility]* Problem Noted Date Diagnosed Date Resolved Date Diabetes mellitus type 2, un controlled, without complications 03/10/2019 08/29/2020 Acute pain of right shoulder 11/06/2017 08/29/2020 Acute right-sided low back p ain with right-sided sciatica 03/18/2017 08/29/2020 Diabetes mellitus type 2, co ntrolled, without complications 08/19/2015 08/29/2020 documented as of this encounter (statuses as of 08/22/2023) [facility]* Problem Noted Date Diagnosed Date Resolved Date Diabetes mellitus type 2, un controlled, without complications 03/10/2019 08/29/2020 Acute pain of right shoulder 11/06/2017 08/29/2020 Acute right-sided low back p ain with right-sided sciatica 03/18/2017 08/29/2020 Diabetes mellitus type 2, co ntrolled, without complications 08/19/2015 08/29/2020 documented as of this encounter (statuses as of 08/24/2023) [facility]* Problem Noted Date Diagnosed Date Resolved Date Diabetes mellitus type 2, un controlled, without complications 03/10/2019 08/29/2020 Acute pain of right shoulder 11/06/2017 08/29/2020 Acute right-sided low back p ain with right-sided sciatica 03/18/2017 08/29/2020 Diabetes mellitus type 2, co ntrolled, without complications 08/19/2015 08/29/2020 documented as of this encounter (statuses as of 08/26/2023) [facility]* Problem Noted Date Diagnosed Date Resolved Date Diabetes mellitus type 2, un controlled, without complications 03/10/2019 08/29/2020 Acute pain of right shoulder 11/06/2017 08/29/2020 Acute right-sided low back p ain with right-sided sciatica 03/18/2017 08/29/2020 Diabetes mellitus type 2, co ntrolled, without complications 08/19/2015 08/29/2020 documented as of this encounter (statuses as of 08/27/2023) [facility]* Problem Noted Date Diagnosed Date Resolved Date Diabetes mellitus type 2, un controlled, without complications 03/10/2019 08/29/2020 Acute pain of right shoulder 11/06/2017 08/29/2020 Acute right-sided low back p ain with right-sided sciatica 03/18/2017 08/29/2020 Diabetes mellitus type 2, co ntrolled, without complications 08/19/2015 08/29/2020 documented as of this encounter (statuses as of 08/30/2023) [facility]* Problem Noted Date Diagnosed Date Resolved Date Diabetes mellitus type 2, un controlled, without complications 03/10/2019 08/29/2020 Acute pain of right shoulder 11/06/2017 08/29/2020 Acute right-sided low back p ain with right-sided sciatica 03/18/2017 08/29/2020 Diabetes mellitus type 2, co ntrolled, without complications 08/19/2015 08/29/2020 documented as of this encounter (statuses as of 08/31/2023) [facility]* Problem Noted Date Diagnosed Date Resolved Date Diabetes mellitus type 2, un controlled, without complications 03/10/2019 08/29/2020 Acute pain of right shoulder 11/06/2017 08/29/2020 Acute right-sided low back p ain with right-sided sciatica 03/18/2017 08/29/2020 Diabetes mellitus type 2, co ntrolled, without complications 08/19/2015 08/29/2020 documented as of this encounter (statuses as of 10/17/2023) [facility]* Problem Noted Date Diagnosed Date Resolved Date Diabetes mellitus type 2, un controlled, without complications 03/10/2019 08/29/2020 Acute pain of right shoulder 11/06/2017 08/29/2020 Acute right-sided low back p ain with right-sided sciatica 03/18/2017 08/29/2020 Diabetes mellitus type 2, co ntrolled, without complications 08/19/2015 08/29/2020 documented as of this encounter (statuses as of 10/18/2023) [facility]* Problem Noted Date Diagnosed Date Resolved Date Diabetes mellitus type 2, un controlled, without complications 03/10/2019 08/29/2020 Acute pain of right shoulder 11/06/2017 08/29/2020 Acute right-sided low back p ain with right-sided sciatica 03/18/2017 08/29/2020 Diabetes mellitus type 2, co ntrolled, without complications 08/19/2015 08/29/2020 documented as of this encounter (statuses as of 10/29/2023) [facility]* Problem Noted Date Diagnosed Date Resolved Date Diabetes mellitus type 2, un controlled, without complications 03/10/2019 08/29/2020 Acute pain of right shoulder 11/06/2017 08/29/2020 Acute right-sided low back p ain with right-sided sciatica 03/18/2017 08/29/2020 Diabetes mellitus type 2, co ntrolled, without complications 08/19/2015 08/29/2020 documented as of this encounter (statuses as of 11/01/2023) [facility]* Problem Noted Date Diagnosed Date Resolved Date Diabetes mellitus type 2, un controlled, without complications 03/10/2019 08/29/2020 Acute pain of right shoulder 11/06/2017 08/29/2020 Acute right-sided low back p ain with right-sided sciatica 03/18/2017 08/29/2020 Diabetes mellitus type 2, co ntrolled, without complications 08/19/2015 08/29/2020 documented as of this encounter (statuses as of 11/04/2023) [facility]* Problem Noted Date Diagnosed Date Resolved Date Diabetes mellitus type 2, un controlled, without complications 03/10/2019 08/29/2020 Acute pain of right shoulder 11/06/2017 08/29/2020 Acute right-sided low back p ain with right-sided sciatica 03/18/2017 08/29/2020 Diabetes mellitus type 2, co ntrolled, without complications 08/19/2015 08/29/2020 documented as of this encounter (statuses as of 11/08/2023) [facility]* Problem Noted Date Diagnosed Date Resolved Date Diabetes mellitus type 2, un controlled, without complications 03/10/2019 08/29/2020 Acute pain of right shoulder 11/06/2017 08/29/2020 Acute right-sided low back p ain with right-sided sciatica 03/18/2017 08/29/2020 Diabetes mellitus type 2, co ntrolled, without complications 08/19/2015 08/29/2020 documented as of this encounter (statuses as of 11/14/2023) [facility]* Problem Noted Date Diagnosed Date Resolved Date Diabetes mellitus type 2, un controlled, without complications 03/10/2019 08/29/2020 Acute pain of right shoulder 11/06/2017 08/29/2020 Acute right-sided low back p ain with right-sided sciatica 03/18/2017 08/29/2020 Diabetes mellitus type 2, co ntrolled, without complications 08/19/2015 08/29/2020 documented as of this encounter (statuses as of 11/15/2023) [facility]* Problem Noted Date Diagnosed Date Resolved Date Diabetes mellitus type 2, un controlled, without complications 03/10/2019 08/29/2020 Acute pain of right shoulder 11/06/2017 08/29/2020 Acute right-sided low back p ain with right-sided sciatica 03/18/2017 08/29/2020 Diabetes mellitus type 2, co ntrolled, without complications 08/19/2015 08/29/2020 documented as of this encounter (statuses as of 11/18/2023) [facility]* Problem Noted Date Diagnosed Date Resolved Date Diabetes mellitus type 2, un controlled, without complications 03/10/2019 08/29/2020 Acute pain of right shoulder 11/06/2017 08/29/2020 Acute right-sided low back p ain with right-sided sciatica 03/18/2017 08/29/2020 Diabetes mellitus type 2, co ntrolled, without complications 08/19/2015 08/29/2020 documented as of this encounter (statuses as of 11/27/2023) [facility]* Problem Noted Date Diagnosed Date Resolved Date Diabetes mellitus type 2, un controlled, without complications 03/10/2019 08/29/2020 Acute pain of right shoulder 11/06/2017 08/29/2020 Acute right-sided low back p ain with right-sided sciatica 03/18/2017 08/29/2020 Diabetes mellitus type 2, co ntrolled, without complications 08/19/2015 08/29/2020 documented as of this encounter (statuses as of 12/09/2023) [facility]* Problem Noted Date Diagnosed Date Resolved Date Diabetes mellitus type 2, un controlled, without complications 03/10/2019 08/29/2020 Acute pain of right shoulder 11/06/2017 08/29/2020 Acute right-sided low back p ain with right-sided sciatica 03/18/2017 08/29/2020 Diabetes mellitus type 2, co ntrolled, without complications 08/19/2015 08/29/2020 documented as of this encounter (statuses as of 12/18/2023) [facility]* Problem Noted Date Diagnosed Date Resolved Date Diabetes mellitus type 2, un controlled, without complications 03/10/2019 08/29/2020 Acute pain of right shoulder 11/06/2017 08/29/2020 Acute right-sided low back p ain with right-sided sciatica 03/18/2017 08/29/2020 Diabetes mellitus type 2, co ntrolled, without complications 08/19/2015 08/29/2020 documented as of this encounter (statuses as of 12/18/2023) [facility]* Problem Noted Date Diagnosed Date Resolved Date Diabetes mellitus type 2, un controlled, without complications 03/10/2019 08/29/2020 Acute pain of right shoulder 11/06/2017 08/29/2020 Acute right-sided low back p ain with right-sided sciatica 03/18/2017 08/29/2020 Diabetes mellitus type 2, co ntrolled, without complications 08/19/2015 08/29/2020 documented as of this encounter (statuses as of 12/20/2023) [facility]* Problem Noted Date Diagnosed Date Resolved Date Diabetes mellitus type 2, un controlled, without complications 03/10/2019 08/29/2020 Acute pain of right shoulder 11/06/2017 08/29/2020 Acute right-sided low back p ain with right-sided sciatica 03/18/2017 08/29/2020 Diabetes mellitus type 2, co ntrolled, without complications 08/19/2015 08/29/2020 documented as of this encounter (statuses as of 12/30/2023) [facility]* Problem Noted Date Diagnosed Date Resolved Date Diabetes mellitus type 2, un controlled, without complications 03/10/2019 08/29/2020 Acute pain of right shoulder 11/06/2017 08/29/2020 Acute right-sided low back p ain with right-sided sciatica 03/18/2017 08/29/2020 Diabetes mellitus type 2, co ntrolled, without complications 08/19/2015 08/29/2020 documented as of this encounter (statuses as of 12/31/2023) [facility]* Problem Noted Date Diagnosed Date Resolved Date Diabetes mellitus type 2, un controlled, without complications 03/10/2019 08/29/2020 Acute pain of right shoulder 11/06/2017 08/29/2020 Acute right-sided low back p ain with right-sided sciatica 03/18/2017 08/29/2020 Diabetes mellitus type 2, co ntrolled, without complications 08/19/2015 08/29/2020 documented as of this encounter (statuses as of 01/01/2024) [facility]* Problem Noted Date Diagnosed Date Resolved Date Diabetes mellitus type 2, un controlled, without complications 03/10/2019 08/29/2020 Acute pain of right shoulder 11/06/2017 08/29/2020 Acute right-sided low back p ain with right-sided sciatica 03/18/2017 08/29/2020 Diabetes mellitus type 2, co ntrolled, without complications 08/19/2015 08/29/2020 documented as of this encounter (statuses as of 01/03/2024) [facility]* Problem Noted Date Diagnosed Date Resolved Date Diabetes mellitus type 2, un controlled, without complications 03/10/2019 08/29/2020 Acute pain of right shoulder 11/06/2017 08/29/2020 Acute right-sided low back p ain with right-sided sciatica 03/18/2017 08/29/2020 Diabetes mellitus type 2, co ntrolled, without complications 08/19/2015 08/29/2020 documented as of this encounter (statuses as of 01/03/2024) [facility]* Problem Noted Date Diagnosed Date Resolved Date Diabetes mellitus type 2, un controlled, without complications 03/10/2019 08/29/2020 Acute pain of right shoulder 11/06/2017 08/29/2020 Acute right-sided low back p ain with right-sided sciatica 03/18/2017 08/29/2020 Diabetes mellitus type 2, co ntrolled, without complications 08/19/2015 08/29/2020 documented as of this encounter (statuses as of 01/03/2024) [facility] Controlled type 2 diabetes mellitus without complication, without long-term current use of insulin (HCC)- Primary documented in this encounter [facility] note* Diagnosis Uncontrolled type 2 diabetes mellitus with hyperglycemia (HCC)- Primary documented in this encounter [facility] note* Diagnosis Controlled type 2 diabetes mellitus without complication, without long-term current use of insulin (HCC)- Primary Acute cystitis without hematuria Acute cystitis Hypothyroidism, acquired Unspecified hypothyroidism Anemia, unspecified type Vitamin D deficiency Unspecified vitamin D deficiency Hypertension, essential Unspecified essential hypertension Dyslipidemia Other and unspecified hyperlipidemia Internal hemorrhoids Internal hemorrhoids without mention of complication Rectal bleeding Hemorrhage of rectum and anus Irritable bowel syndrome with alternating bowel habits documented in this encounter [facility] note* Diagnosis External hemorrhoid- Primary External hemorrhoids without mention of complication documented in this encounter [facility] note* Diagnosis Controlled type 2 diabetes mellitus without complication, without long-term current use of insulin (HCC) documented in this encounter [facility] note* Diagnosis Encounter for screening mammogram for breast cancer documented in this encounter [facility] note* Diagnosis Internal and external hemorrhoids without complication- Primary Internal hemorrhoids without mention of complication documented in this encounter [facility] note* Diagnosis Urinary urgency- Primary Urgency of urination documented in this encounter [facility] note* Diagnosis Hypothyroidism, acquired Unspecified hypothyroidism documented in this encounter [facility] noteNo assessment information availableWSub[facility]* Diagnosis Controlled type 2 diabetes mellitus without complication, without long-term current use of insulin (HCC) documented in this encounter [facility] note* Diagnosis Sore throat- Primary Acute pharyngitis URI, acute Acute upper respiratory infections of unspecified site documented in this encounter [facility] note* Diagnosis Controlled type 2 diabetes mellitus without complication, without long-term current use of insulin (HCC)- Primary Hypothyroidism, acquired Unspecified hypothyroidism Situational depression Adjustment disorder with depressed mood Diarrhea, unspecified type Fatigue, unspecified type Dyslipidemia Other and unspecified hyperlipidemia Situational insomnia Transient disorder of initiating or maintaining sleep Vitamin D deficiency Unspecified vitamin D deficiency documented in this encounter [facility] note* Diagnosis Anemia, unspecified type- Primary documented in this encounter [facility] note* Diagnosis Iron deficiency anemia, unspecified iron deficiency anemia type- Primary [facility] Diagnosis Urinary frequency- Primary [facility] Diagnosis Functional diarrhea- Primary Situational insomnia Transient disorder of initiating or maintaining sleep Esophageal varices determined by endoscopy (HCC) Controlled type 2 diabetes mellitus without complication, without long-term current use of insulin (HCC) Abnormal craving Pica Major depressive disorder, single episode, in full remission (HCC) Major depressive disorder, single episode in full remission Fatigue, unspecified type Dyslipidemia Other and unspecified hyperlipidemia Hypothyroidism, acquired Unspecified hypothyroidism [facility] Diagnosis Iron deficiency anemia, unspecified iron deficiency anemia type- Primary [facility] Diagnosis Controlled type 2 diabetes mellitus without complication, without long-term current use of insulin (HCC) [facility] Diagnosis Controlled type 2 diabetes mellitus without complication, without long-term current use of insulin (HCC) [facility] Diagnosis Iron deficiency anemia, unspecified iron deficiency anemia type- Primary Platelets decreased (HCC) Thrombocytopenia, unspecified Iron deficiency anemia secondary to inadequate dietary iron intake Iron malabsorption Other specified intestinal malabsorption [facility] Diagnosis Functional diarrhea Esophageal varices determined by endoscopy (HCC) [facility] Diagnosis Uncontrolled type 2 diabetes mellitus with hyperglycemia (HCC)- Primary Iron deficiency anemia, unspecified iron deficiency anemia type Hypothyroidism, acquired Unspecified hypothyroidism Internal hemorrhoids Internal hemorrhoids without mention of complication Rectal bleeding Hemorrhage of rectum and anus Scalp lesion Unspecified disorder of skin and subcutaneous tissue [facility] Diagnosis Urinary frequency- Primary [facility] Diagnosis Screening for osteoporosis- Primary Special screening for osteoporosis [facility] Diagnosis Rhinosinusitis- Primary Unspecified sinusitis (chronic) [facility] Diagnosis Splenomegaly- Primary Thrombocytopenia (HCC) Thrombocytopenia, unspecified Iron deficiency anemia secondary to inadequate dietary iron intake [facility] Diagnosis Encounter for imaging to assess osteoporosis Osteoporosis, unspecified Encounter for screening for osteoporosis Special screening for osteoporosis [facility] Diagnosis Osteopenia of multiple sites- Primary Splenomegaly [facility] Diagnosis Sinobronchitis- Primary Unspecified sinusitis (chronic) [facility] Diagnosis Portal venous hypertension (HCC)- Primary Portal hypertension [facility] Diagnosis Iron deficiency anemia secondary to inadequate dietary iron intake- Primary Iron malabsorption Other specified intestinal malabsorption Rectal bleeding Hemorrhage of rectum and anus [facility] Diagnosis Iron deficiency anemia secondary to inadequate dietary iron intake- Primary Iron malabsorption Other specified intestinal malabsorption Rectal bleeding Hemorrhage of rectum and anus [facility] Diagnosis Iron deficiency anemia secondary to inadequate dietary iron intake- Primary Iron malabsorption Other specified intestinal malabsorption Rectal bleeding Hemorrhage of rectum and anus [facility] Diagnosis Iron deficiency anemia secondary to inadequate dietary iron intake- Primary Iron malabsorption Other specified intestinal malabsorption Rectal bleeding Hemorrhage of rectum and anus [facility] Diagnosis Iron deficiency anemia secondary to inadequate dietary iron intake- Primary Splenomegaly Thrombocytopenia (HCC) Thrombocytopenia, unspecified [facility] Diagnosis Iron deficiency anemia secondary to inadequate dietary iron intake- Primary Rectal bleeding Hemorrhage of rectum and anus Splenomegaly Thrombocytopenia (HCC) Thrombocytopenia, unspecified [facility] Diagnosis Uncontrolled type 2 diabetes mellitus with hyperglycemia (HCC) Hypothyroidism, acquired Unspecified hypothyroidism [facility] Diagnosis Iron deficiency anemia secondary to inadequate dietary iron intake- Primary Iron malabsorption Other specified intestinal malabsorption Rectal bleeding Hemorrhage of rectum and anus [facility] Diagnosis Iron deficiency anemia secondary to inadequate dietary iron intake- Primary Iron malabsorption Other specified intestinal malabsorption Rectal bleeding Hemorrhage of rectum and anus [facility] Diagnosis Thrombocytopenia (HCC)- Primary Thrombocytopenia, unspecified Iron deficiency anemia secondary to inadequate dietary iron intake Iron malabsorption Other specified intestinal malabsorption Rectal bleeding Hemorrhage of rectum and anus [facility] Diagnosis Pleural effusion- Primary Unspecified pleural effusion Exertional shortness of breath Shortness of breath [facility] Diagnosis Hypothyroidism, acquired- Primary Unspecified hypothyroidism Encounter for screening for cardiovascular disorders Screening for other and unspecified cardiovascular conditions Uncontrolled type 2 diabetes mellitus with hyperglycemia (HCC) Portal venous hypertension (HCC) Portal hypertension Iron deficiency anemia, unspecified iron deficiency anemia type Esophageal varices determined by endoscopy (HCC) Thrombocytopenia (HCC) Thrombocytopenia, unspecified Weight loss, unintentional Loss of weight Exertional shortness of breath Shortness of breath Hypertension, essential Unspecified essential hypertension Fatigue, unspecified type Dizziness Dizziness and giddiness Exertional shortness of breath Shortness of breath Hypertension, essential Unspecified essential hypertension [facility] encounter [facility] [facility] Diagnosis Pleural effusion Unspecified pleural effusion Exertional shortness of breath Shortness of breath [facility] Iron deficiency anemia secondary to inadequate dietary iron intake- Primary Iron malabsorption Other specified intestinal malabsorption Rectal bleeding Hemorrhage of rectum and anus [facility] Diagnosis Iron deficiency anemia secondary to inadequate dietary iron intake- Primary Iron malabsorption Other specified intestinal malabsorption Rectal bleeding Hemorrhage of rectum and anus documented [facility] Diagnosis Pulmonary nodules- Primary Other nonspecific abnormal finding of lung field [facility] Diagnosis Iron deficiency anemia secondary to inadequate dietary iron intake- Primary Rectal bleeding Hemorrhage of rectum and anus [facility] Diagnosis Rectal bleeding- Primary Hemorrhage of rectum and anus Iron deficiency anemia secondary to inadequate dietary iron intake Iron malabsorption Other specified intestinal malabsorption [facility] Diagnosis Procedure not carried out- Primary Procedure not carried out for other reasons [facility] Diagnosis Rectal bleeding- Primary Hemorrhage of rectum and anus Iron deficiency anemia secondary to inadequate dietary iron intake Iron malabsorption Other specified intestinal malabsorption [facility] Diagnosis Iron deficiency anemia secondary to inadequate dietary iron intake- Primary Rectal bleeding Hemorrhage of rectum and anus Iron malabsorption Other specified intestinal malabsorption [facility] Diagnosis Iron deficiency anemia secondary to inadequate dietary iron intake- Primary Iron malabsorption Other specified intestinal malabsorption Thrombocytopenia (HCC) Thrombocytopenia, unspecified [facility] Diagnosis Rectal bleeding- Primary Hemorrhage of rectum and anus Iron deficiency anemia secondary to inadequate dietary iron intake Iron malabsorption Other specified intestinal malabsorption [facility] Diagnosis Dry cough- Primary Cough Pleural effusion Unspecified pleural effusion Uncontrolled type 2 diabetes mellitus with hyperglycemia (HCC) Encounter for screening mammogram for breast cancer Pleural effusion Unspecified pleural effusion documented in this encounter [facility]* Diagnosis Iron deficiency anemia secondary to inadequate dietary iron intake- Primary [facility] Diagnosis Iron deficiency anemia secondary to inadequate dietary iron intake- Primary Iron malabsorption Other specified intestinal malabsorption [facility]* Diagnosis History of pleural effusion- Primary Personal history of other diseases of respiratory system Portal venous hypertension (HCC) Portal hypertension History of pleural effusion Personal history of other diseases of respiratory system Portal venous hypertension (HCC) Portal hypertension documented in this encounter [facility]* Diagnosis Iron deficiency anemia secondary to inadequate dietary iron intake- Primary Iron malabsorption Other specified intestinal malabsorption Thrombocytopenia (HCC) Thrombocytopenia, unspecified documented in this encounter [facility]* Diagnosis Rib pain- Primary Chest pain, unspecified Rib pain Chest pain, unspecified documented in this encounter [facility]* Diagnosis Portal venous hypertension (HCC)- Primary Portal hypertension Intra-abdominal and pelvic swelling, mass and lump, unspecified site Right lower quadrant abdominal pain Abdominal pain, right lower quadrant Uncontrolled type 2 diabetes mellitus with hyperglycemia (HCC) Intra-abdominal and pelvic swelling, mass and lump, unspecified site Right lower quadrant abdominal pain Abdominal pain, right lower quadrant documented in this encounter [facility]* Diagnosis Intra-abdominal and pelvic swelling, mass and lump, unspecified site Right lower quadrant abdominal pain Abdominal pain, right lower quadrant [facility] Diagnosis Intra-abdominal and pelvic swelling, mass and lump, unspecified site- Primary Right lower quadrant abdominal pain Abdominal pain, right lower quadrant [facility]* Diagnosis Iron deficiency anemia secondary to inadequate dietary iron intake- Primary Iron malabsorption Other specified intestinal malabsorption Rectal bleeding Hemorrhage of rectum and anus documented [facility]* Diagnosis History of pleural effusion Personal history of other diseases of respiratory system Portal venous hypertension (HCC) Portal hypertension [facility] Diagnosis Rib pain Chest pain, unspecified documented in this encounter [facility]* Diagnosis Pleural effusion Unspecified pleural effusion [facility]* Diagnosis Iron deficiency anemia secondary to inadequate dietary iron intake- Primary Iron malabsorption Other specified intestinal malabsorption Rectal bleeding Hemorrhage of rectum and anus [facility] Diagnosis Intra-abdominal and pelvic swelling, mass and lump, unspecified site- Primary Situational insomnia Transient disorder of initiating or maintaining sleep Situational depression Adjustment disorder with depressed mood Right lower quadrant abdominal pain Abdominal pain, right lower quadrant Hypotension, unspecified hypotension type Portal venous hypertension (HCC) Portal hypertension [facility]* Diagnosis Exertional shortness of breath Shortness of breath Hypertension, essential Unspecified essential hypertension [facility] Diagnosis Intra-abdominal and pelvic swelling, mass and lump, unspecified site Right lower quadrant abdominal pain Abdominal pain, right lower quadrant [facility] Diagnosis Portal venous hypertension (HCC)- Primary Portal hypertension Pleural effusion Unspecified pleural effusion Dry cough Cough Hypotension, unspecified hypotension type SOB (shortness of breath) Shortness of breath Situational insomnia Transient disorder of initiating or maintaining sleep Situational insomnia Transient disorder of initiating or maintaining sleep Portal venous hypertension (HCC) Portal hypertension Pleural effusion Unspecified pleural effusion Dry cough Cough SOB (shortness of breath) Shortness of breath [facility] Diagnosis Situational insomnia Transient disorder of initiating or maintaining sleep Portal venous hypertension (HCC) Portal hypertension Pleural effusion Unspecified pleural effusion Dry cough Cough SOB (shortness of breath) Shortness of breath [facility]* Diagnosis Portal venous hypertension (HCC) Portal hypertension [facility]* Diagnosis Frequent headaches [facility]* Diagnosis Iron deficiency anemia secondary to inadequate dietary iron intake- Primary Thrombocytopenia (HCC) Thrombocytopenia, unspecified Iron malabsorption Other specified intestinal malabsorption Rectal bleeding Hemorrhage of rectum and anus documented [facility]* Diagnosis Foot pain, left Pain in limb [facility]* Diagnosis Portal venous hypertension (HCC) Portal hypertension [facility]* Diagnosis Portal venous hypertension (HCC) Portal hypertension [facility] Diagnosis Portal venous hypertension (HCC) Portal hypertension [facility] Diagnosis Right lower quadrant abdominal pain- Primary Abdominal pain, right lower quadrant Lung nodules Other nonspecific abnormal finding of lung field [facility] Diagnosis Portal venous hypertension (HCC) Portal hypertension [facility]* Diagnosis Uncontrolled type 2 diabetes mellitus with hyperglycemia (HCC)- Primary Cirrhosis, 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 Portal venous hypertension (HCC) Portal hypertension Right lower quadrant abdominal pain Abdominal pain, right lower quadrant Hypotension, unspecified hypotension type History of pleural effusion Personal history of other diseases of respiratory system Hypertension, essential Unspecified essential hypertension Esophageal varices determined by endoscopy (HCC) Thrombocytopenia (HCC) Thrombocytopenia, unspecified [facility]* Diagnosis Lung nodules- Primary Other nonspecific abnormal finding of lung field Cirrhosis of liver with ascites, unspecified hepatic cirrhosis type (HCC) (HCC) Portal hypertension with esophageal varices (HCC) Portal hypertension Pleural effusion Unspecified pleural effusion [facility]* Diagnosis Right lower quadrant abdominal pain Abdominal pain, right lower quadrant Lung nodules Other nonspecific abnormal finding of lung field [facility]* Diagnosis Hypotension, unspecified hypotension type- Primary Thrombocytopenia (HCC) Thrombocytopenia, unspecified Iron deficiency anemia, unspecified iron deficiency anemia type Portal venous hypertension (HCC) Portal hypertension Uncontrolled type 2 diabetes mellitus with hyperglycemia (HCC) Iron malabsorption Other specified intestinal malabsorption [facility] Diagnosis Abdominal wall hernia- Primary Ventral hernia, unspecified, without mention of obstruction or gangrene Cirrhosis, 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 Portal venous hypertension (HCC) Portal hypertension Controlled type 2 diabetes mellitus without complication, without long-term current use of insulin (HCC) Class 2 severe obesity due to excess calories with serious comorbidity and body mass index (BMI) of 36.0 to 36.9 in adult (HCC) documented [facility]* Diagnosis Right lower quadrant abdominal pain- Primary Abdominal pain, right lower quadrant Intra-abdominal and pelvic swelling, mass and lump, unspecified site [facility]* Diagnosis Iron deficiency anemia due to chronic blood loss- Primary Iron deficiency anemia secondary to blood loss (chronic) [facility]* Diagnosis Closed fracture of left upper extremity, initial encounter- Primary [facility] Diagnosis Closed fracture of left upper extremity with routine healing, subsequent encounter- Primary [facility]* Diagnosis Portal venous hypertension (HCC) Portal hypertension [facility]* Diagnosis Portal venous hypertension (HCC) Portal hypertension [facility]* Diagnosis Iron deficiency anemia due to chronic blood loss- Primary Iron deficiency anemia secondary to blood loss (chronic) [facility]* Diagnosis Iron deficiency anemia due to chronic blood loss- Primary Iron deficiency anemia secondary to blood loss (chronic) [facility]* Diagnosis Iron deficiency anemia due to chronic blood loss- Primary Iron deficiency anemia secondary to blood loss (chronic) [facility]* Diagnosis Left shoulder pain, unspecified chronicity- Primary [facility]* Diagnosis Iron deficiency anemia secondary to inadequate dietary iron intake- Primary Iron deficiency anemia due to chronic blood loss Iron deficiency anemia secondary to blood loss (chronic) [facility]* Diagnosis Iron deficiency anemia due to chronic blood loss- Primary Iron deficiency anemia secondary to blood loss (chronic) [facility]* Diagnosis Iron deficiency anemia due to chronic blood loss- Primary Iron deficiency anemia secondary to blood loss (chronic) Splenomegaly Thrombocytopenia (HCC) Thrombocytopenia, unspecified Iron malabsorption Other specified intestinal malabsorption Rectal bleeding Hemorrhage of rectum and anus documented [facility]* Diagnosis Controlled type 2 diabetes mellitus without complication, without long-term current use of insulin (HCC)- Primary Cirrhosis, 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 Obesity, Class I, BMI 30-34.9 Obesity, unspecified Dietary counseling Dietary surveillance and counseling Dyslipidemia Other and unspecified hyperlipidemia [facility]* Diagnosis Iron deficiency anemia due to chronic blood loss- Primary Iron deficiency anemia secondary to blood loss (chronic) Iron malabsorption Other specified intestinal malabsorption Rectal bleeding Hemorrhage of rectum and anus [facility]* Diagnosis Portal venous hypertension (HCC) Portal hypertension [facility]* Diagnosis Iron deficiency anemia due to chronic blood loss- Primary Iron deficiency anemia secondary to blood loss (chronic) [facility]* Diagnosis Portal venous hypertension (HCC)- Primary Portal hypertension Iron deficiency anemia, unspecified iron deficiency anemia type Thrombocytopenia (HCC) Thrombocytopenia, unspecified Iron malabsorption Other specified intestinal malabsorption Esophageal varices determined by endoscopy (HCC) Portal venous hypertension (HCC) Portal hypertension [facility]* Diagnosis Uncontrolled type 2 diabetes mellitus with hyperglycemia (HCC)- Primary Other iron deficiency anemia Encounter for screening mammogram for malignant neoplasm of breast Other screening mammogram Hypothyroidism, acquired Unspecified hypothyroidism Vitamin B12 deficiency Other B-complex deficiencies Encounter for screening for osteoporosis Special screening for osteoporosis Asymptomatic postmenopausal status Osteopenia, senile Disorder of bone and cartilage, unspecified Cirrhosis, 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 Hypertension, essential Unspecified essential hypertension Iron deficiency anemia, unspecified iron deficiency anemia type [facility]* Diagnosis Iron deficiency anemia due to chronic blood loss- Primary Iron deficiency anemia secondary to blood loss (chronic) [facility]* Diagnosis Right lower quadrant abdominal pain- Primary Abdominal pain, right lower quadrant [facility]* Diagnosis Uncontrolled type 2 diabetes mellitus with hyperglycemia (HCC) [facility]* Diagnosis Vitamin B12 deficiency Other B-complex deficiencies [facility]* Diagnosis Acute midline low back pain without sciatica- Primary Other iron deficiency anemia Uncontrolled type 2 diabetes mellitus with hyperglycemia (HCC) Flank hernia Hernia of other specified sites of abdominal cavity without mention of obstruction or gangrene Liver disease Unspecified disorder of liver History of nephrectomy, left [facility]* Diagnosis Anemia, unspecified type- Primary Iron deficiency anemia due to chronic blood loss Iron deficiency anemia secondary to blood loss (chronic) Thrombocytopenia Thrombocytopenia, unspecified Iron malabsorption (HCC) Other specified intestinal malabsorption [facility]* Diagnosis Hypokalemia- Primary Hypopotassemia Elevated alkaline phosphatase level Other nonspecific abnormal serum enzyme levels [facility]* Diagnosis Iron deficiency anemia due to chronic blood loss- Primary Iron deficiency anemia secondary to blood loss (chronic) Iron deficiency anemia secondary to inadequate dietary iron intake Iron malabsorption (HCC) Other specified intestinal malabsorption Rectal bleeding Hemorrhage of rectum and anus [facility] Diagnosis Iron deficiency anemia secondary to inadequate dietary iron intake- Primary Iron malabsorption (HCC) Other specified intestinal malabsorption Rectal bleeding Hemorrhage of rectum and anus [facility]* Diagnosis Uncontrolled type 2 diabetes mellitus with hyperglycemia (HCC) [facility] Diagnosis Iron deficiency anemia secondary to inadequate dietary iron intake- Primary Iron malabsorption (HCC) Other specified intestinal malabsorption Rectal bleeding Hemorrhage of rectum and anus [facility] Diagnosis Iron deficiency anemia secondary to inadequate dietary iron intake- Primary Iron malabsorption (HCC) Other specified intestinal malabsorption Rectal bleeding Hemorrhage of rectum and anus [facility]* Diagnosis Iron deficiency anemia secondary to inadequate dietary iron intake- Primary Iron malabsorption (HCC) Other specified intestinal malabsorption Rectal bleeding Hemorrhage of rectum and anus [facility]* Diagnosis Iron deficiency anemia secondary to inadequate dietary iron intake- Primary Iron malabsorption (HCC) Other specified intestinal malabsorption [facility]* Diagnosis Uncontrolled type 2 diabetes mellitus with hyperglycemia (HCC)- Primary Situational insomnia Transient disorder of initiating or maintaining sleep Elevated alkaline phosphatase level Other nonspecific abnormal serum enzyme levels Other iron deficiency anemia Vitamin B12 deficiency Other B-complex deficiencies Hypothyroidism, acquired Unspecified hypothyroidism Osteopenia, senile Disorder of bone and cartilage, unspecified Cirrhosis, 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 Hypertension, essential Unspecified essential hypertension Iron deficiency anemia, unspecified iron deficiency anemia type Vitamin D deficiency Unspecified vitamin D deficiency [facility] Diagnosis Abdominal wall hernia- Primary Ventral hernia, unspecified, without mention of obstruction or gangrene Cirrhosis, 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 Portal venous hypertension (HCC) Portal hypertension Thrombocytopenia Thrombocytopenia, unspecified Portal hypertension with esophageal varices (HCC) Portal hypertension [facility] Diagnosis Burning with urination- Primary Dysuria Acute cystitis with hematuria Acute cystitis [facility] Author Kwasi Nieves [facility] Note Date/Time February 09, 2025 4:29p m [facility] Medical Records Department [address] [place] [address] H&P Exam - Hospitalist 02/09/25 1624 MR#: [id number] Acct: [id number] Name: BARBARA MENESES Rep #:[id number] : 1955 70 From: Kwasi Nieves DO PCP: Dr. Juan Locke, DO Status:AD M IN Location: [place] [address]- [id number] HPI - General General Date of Admission: 02/09/25 Date of Service: 02/09/25 Chief Complaint: weakness. HPI Narrative BARBARA MENESES, is a 70 F who presents with weakness over the past few days. This is similar feeling that she has felt when she has been anemic before. Presented to the emergency room and hemoglobin was 5.2. Patient notes that she been having melena over the past few days as well. Patient denies any hematochezia nor any hematemesis. She presented to the emergency room and was ordered 2 units of packed red blood cells. Dr. Zimmer, gastroenterology, was contacted and recommend the patient be admitted here and then tentative plans for upper endoscopy on the . Patient did have capsule endoscopy on November 30 that showed no signs of blood loss anemia but did note portal gastropathy. Patient also had EGD performed on November 09 that showed grade 2 varices in the midesophagus, distal esophagus and gastrojejunal junction. Severe portal hypertensive gastropathy throughout the entire stomach. [facility] Medical History Ascites Cirrhosis Iron deficiency anemia Lung nodule Hemorrhoids History of diabetes mellitus History of cirrhosis Anemia Pleural effusion on left Exertional dyspnea Chest pain Wears contact lenses Wears glasses Post-menopausal Anxiety Alcohol use Thyroid disease History of renal disease Anemia Back pain History of diverticulitis Gastric reflux Former smoker Sleep apnea Chronic cough S/p nephrectomy Depression Migraines HTN (hypertension) Diabetes Home Medications ?Medication ?Instructions ?Recorded ?Last Taken ?Type duloxetine 60 mg capsule,delayed 60 mg PO DAILY mental health 11/06/17 02/08/25 History release ergocalciferol (vitamin D2) 1,250 50,000 unit PO SA vi tamin 11/06/17 02/06/25 History mcg (50,000 unit) capsule albuterol sulfate 90 mcg/actuation 1 - 2 puff inhalati on PRN PRN 02/20/23 03/16/24 History aerosol inhaler ALLERGIES dulaglutide 0.75 mg/0.5 mL 0.75 mg subcut SA diabetes 10/10/23 02/06/25 History subcutaneous pen injector (Trulicity) cyanocobalamin (vitamin B-12) 1,000 mcg PO DAILY vitam in 02/13/24 02/08/25 History 1,000 mcg capsule fexofenadine 180 mg tablet 180 mg PO DAILY allergies 0 03/03/24 02/08/25 History (Jez Allergy) propranolol 10 mg tablet 10 mg PO TID blood pressure 30 04/02/24 02/08/25 Rx days #90 tabs spironolactone 50 mg tablet 50 mg PO BID diuretic #30 tabs 07/07/24 02/08/25 Rx furosemide 40 mg tablet 40 mg PO QDAY diuretic 11/0702/09/25 History ferrous gluconate 324 mg (38 mg 324 mg PO TID #90 tabs 11/10/24 02/08/25 Rx iron) tablet famotidine 40 mg tablet 40 mg PO QHS #30 tabs 02/08/25 Rx omeprazole 40 mg capsule,delayed 40 mg PO BID #60 caps 11/21/24 02/08/25 Rx release cholestyramine 4 gram oral powder 4 g PO DAILY 5 02/08/25 History for suspension in a packet (Prevalite) levothyroxine 137 mcg tablet 137 mcg PO DAILY 02/09/25 02/08/25 History (Synthroid) Allergy/AdvReac Type Severity Reaction Status Date / Time adhesive tape Allergy Rash Verified 02/09/25 12:03 Family History Father Colon cancer Brother Cancer bladder Surgical History History of thoracentesis Hx of colonoscopy History of esophagogastroduodenoscopy (EGD) S/P shoulder surgery S/P hysterectomy History of lobectomy of thyroid Social History Smoking Status: Former smoker alcohol intake: current alcohol intake frequency: holidays/special occasions only ROS ROS Narrative All review of systems were negative except as mentioned above in the history of present illness and the other review of systems. Vital Signs Vital Signs Vital Signs: 02/09/25 12:02 02/09/25 12:13 02/09/25 13:26 Temperature 36.6 C 36.8 C Temperature Source Oral Oral Pulse Rate 106 H 81 Pulse Rate [Lying] 104 H Pulse Rate [Sitting (for 1 minute prior to obtaining)] 105 H Pulse Rate [Standing (for 1 minute prior to obtaining)] 109 H Respiratory Rate 16 17 Blood Pressure 128/68 H 122/47 H Blood Pressure [Lying] 110/50 L Blood Pressure [Sitting (for 1 minute prior to obtaining)] 121/43 H Blood Pressure [Standing (for 1 minute prior to obtaining)] 111/50 L Blood Pressure Mean 88 72 Blood Pressure Mean [Lying] 70 Blood Pressure Mean [Sitting (for 1 minute prior to obtaining)] 69 Blood Pressure Mean [Standing (for 1 minute prior to obtaining)] 70 Pulse Ox 100 100 Oxygen Delivery Method Room Air Room Air 02/09/25 14:00 Temperature Temperature Source Pulse Rate 100 Pulse Rate [Lying] Pulse Rate [Sitting (for 1 minute prior to obtaining)] Pulse Rate [Standing (for 1 minute prior to obtaining)] Respiratory Rate Blood Pressure 110/55 L Blood Pressure [Lying] Blood Pressure [Sitting (for 1 minute prior to obtaining)] Blood Pressure [Standing (for 1 minute prior to obtaining)] Blood Pressure Mean 73 Blood Pressure Mean [Lying] Blood Pressure Mean [Sitting (for 1 minute prior to obtaining)] Blood Pressure Mean [Standing (for 1 minute prior to obtaining)] Pulse Ox 98 Oxygen Delivery Method Weight Weight: 88.4 kg Body Mass Index (BMI) 33.4 Physical Exam Narrative - Physical Exam General: Alert, Oriented x3, Cooperative. Up in bed. Nontoxic. Pleasant. HEENT: Atraumatic, PERRLA, EOMI, Normocephalic Oral: Moist Mucosa, No Gingival or Mucosal Lesions/ Ulcerations Neck: Supple, No JVD, Negative Carotid Bruits Lungs: Clear to auscultation, Normal air movement Cardiovascular: Regular rate, Normal S1, Normal S2, No murmurs Abdomen: Bowel Sounds Present, Soft, Non Tender, Non-Distended, No Hepato-splenomegaly Extremities: No clubbing, No cyanosis, No edema, Capillary Refill Less than 3 Seconds Skin: No rashes, No breakdown Musculoskeletal: No Tenderness to Palpation of Joints or Extremities Neurological: Neuro grossly intact Psych/Mental Status: Normal Affect, Appropriate Results Lab / Micro Data Attestation: I reviewed the patient's lab results. 02/09/25 12:11 02/09/25 12:11 Labs: Laboratory Results - last 24 hr 02/09/25 12:11: WBC 6.7, RBC 2.14 L, Hgb 5.2 L*, Hct 17.5 L, MCV 81.8, MCH 24.3 L, MCHC 29.7 L, RDW Std Deviation 52.7 H, RDW Coeff of Cornelio 17.8 H, Plt Count 183, MPV 11.3, Immature Gran % (Auto) 0.300, Neut % (Auto) 72.5 H, Lymph % (Auto) 16.5 L, [place] % (Auto) 9.1, Eos % (Auto) 1.5, Baso % (Auto) 0.1, Absolute Neuts (auto) 4.9, Absolute Lymphs (auto) 1.11, Nucleated RBC % 0, Sodium 137, Potassium 3.8, Chloride 105, Carbon Dioxide 17.0 L, Anion Gap 14, BUN 24 H, Creatinine 1.10, Estim Creat Clear Calc 50.49, Est GFR (MDRD) Non-Af 54 L, BUN/Creatinine Ratio 21.7 H, Glucose 203 H, Calcium 9.4, Total Bilirubin 0.85, AST 20, ALT 13, Alkaline Phosphatase 166 H, Total Protein 5.4 L, Albumin 3.4, Globulin 2.1 L, Albumin/Globulin Ratio 1.6, Blood Type A POSITIVE, Antibody Screen POSITIVE, Antibody Identification ANTI-E 02/09/25 12:56: PT 15.5 H, INR 1.2, APTT 24.8 Rhythm Strip Rhythm Strip: Sinus Tach Rate: 102 Ectopy: None Assessment & Plan Assessment/Plan (1) Acute upper gastrointestinal bleeding: PLAN: Suspected given the patient's previous findings with varices in her esophagus and portal gastropathy. Will put the patient on IV PPI for now and hold her home dose of omeprazole. GI consult with tentative plan for upper endoscopy on the . (2) ABLA (acute blood loss anemia): PLAN: Secondary to GI bleed. Hemoglobin was 5.2. Patient ordered 2 units of packed cells in the emergency room. Will transfuse and monitor hemoglobin serially. PLAN: Plan Chronic conditions * Cirrhosis: Continue with propranolol, furosemide and spironolactone * Hypothyroidism: Continue with levothyroxine VTE prophylaxis with SCDs is chemical prophylaxis contraindicated in light of the anemia. CODE STATUS: Addressed with the patient. Patient wished to be DNR Comfort Care arrest and is okay with short-term intubation. Charges/Coding Visit Charges Inpatient E&M: 13302 Init Hosp L2 02/09/25 1626 <Electronically signed by Kwasi Nieves DO> Cosigner Signature (if applicable): CC: Dr. Kwasi Nieves DO; Dr. Juan Locke DO~ Signed [facility] Work Phone: Reason for referral (narrative)* Diagnostic Procedure Only (Routine) - Pending Review Specialty Diagnoses / Procedures Referred By Geena pardo Referred To Contact BR IMAGING Diagnoses Encounter for screening mammogram for breast cancer Procedures JAN SCREENING SCREENING MAMMOGRAPHY BI 2-VIEW BREAST INC CAD Juan Locke DO [address] [place] [address] [facility] [address] [place] [address] Referral ID Status Reason Start Date Expiration Date Visits Requested Visits Authorized [id number] Pending Review Auto-Generat ed Referral 03/21/2022 04/20/2023 1 1 [facility] for referral (narrative)* Diagnostic Procedure Only (Routine) - Authorized Specialty Diagnoses / Procedures Referred By Geena pardo Referred To Contact US IMAGING Diagnoses Functional diarrhea Esophageal varices determined by endoscopy (HCC) Procedures US ABD RIGHT UPPER QUADRANT US ABDOMINAL REAL TIME W/IMAGE LIMITED Juan Locke DO [address] [place] [address] [facility] Referral ID Status Reason Start Date Expiration Date Visits Requested Visits Authorized [id number] Authorized Auto-Generat ed Referral 03/05/2023 04/03/2024 1 1 [facility] for referral (narrative)* Diagnostic Procedure Only (Routine) - Closed Specialty Diagnoses / Procedures Referred By Contac t Referred To Contact US IMAGING Diagnoses Functional diarrhea Esophageal varices determined by endoscopy (HCC) Procedures US ABD RIGHT UPPER QUADRANT US ABDOMINAL REAL TIME W/IMAGE LIMITED Juan Locke DO [address] [place] [address] [place] [address] Referral ID Status Reason Start Date Expiration Date V isits Requested Visits Authorized [id number] Closed Auto-Generate d Referral 03/05/2023 04/03/2024 1 1 [facility] for referral (narrative)* Diagnostic Procedure Only (Routine) - Authorized Specialty Diagnoses / Procedures Referred By Contac t Referred To Contact XR IMAGING Diagnoses Screening for osteoporosis Procedures DXA-FOREARM SKELETON DXA BONE DENSITY STUDY /SITES APPENDICLR Kavitha Pitt APRN.ASSOCIATE SOFTWARE APPLICATION ENGINEER [address] [place] [address] [place] [address] Referral ID Status Reason Start Date Expiration Date Visits Requested Visits Authorized [id number] Authorized Auto-Generat ed Referral 08/30/2024 1 1 [facility] for referral (narrative)* Outpatient Procedure (Routine) - Pending Review Specialty Diagnoses / Procedures Referred By Contac t Referred To [facility] Diagnoses Uncontrolled type 2 diabetes mellitus with hyperglycemia (HCC) Portal venous hypertension (HCC) Exertional shortness of breath Hypertension, essential Procedures ECG COMPLETE ECG ROUTINE ECG W/LEAST 12 LDS W/I&R Juan Locke DO [address] [place] [address] [facility] [address] [place] [address] Referral ID Status Reason Start Date Expiration Date Visits Requested Visits Authorized [id number] Pending Review Auto-Generat ed Referral 12/30/2023 12/29/2024 1 1 * Outpatient Procedure (Routine) - Authorized Specialty Diagnoses / Procedures Referred By Geena pardo Referred To [facility] Diagnoses Uncontrolled type 2 diabetes mellitus with hyperglycemia (HCC) Portal venous hypertension (HCC) Exertional shortness of breath Hypertension, essential Procedures ECHO ECHO TTHRC R-T 2D W/WOM-MODE COMPL SPEC&COLR D Juan Locke DO [address] [place] [address] [facility] [address] [place] [address] Referral ID Status Reason Start Date Expiration Date Visits Requested Visits Authorized [id number] Authorized Auto-Generat ed Referral 12/30/2023 12/29/2024 1 1 * Diagnostic Procedure Only (Routine) - Authorized Specialty Diagnoses / Procedures Referred By Geena pardo Referred To Contact [facility] Diagnoses Encounter for screening for cardiovascular disorders Procedures NM CARDIAC PERF STRESS/PHARM MYOCARDIAL SPECT MULTIPLE STUDIES Juan Locke DO [address] [place] [address] [facility] [address] [place] [address] Referral ID Status Reason Start Date Expiration Date Visits Requested Visits Authorized [id number] Authorized Auto-Generat ed Referral 12/30/2023 01/28/2025 1 1 [facility] Diagnostic Procedure Only (Routine) - New Request Specialty Diagnoses / Procedures Referred By Geena pardo Referred To Contact [facility] Diagnoses Encounter for screening mammogram for breast cancer Procedures JAN SCREENING W MORGAN SCREENING DIGITAL BREAST TOMOSYNTHESIS BI SCREENING MAMMOGRAPHY BI 2-VIEW BREAST INC Nury Lynch, RGEGORY.ASSOCIATE SOFTWARE APPLICATION ENGINEER [address] [place] [address] [facility] [address] [place] [address] [place] [address] Referral ID Status Reason Start Date Expiration Date Visits Requested Visits Authorized [id number] New Request Auto-Generat ed Referral 03/31/2024 04/30/2025 1 1 [facility] for referral (narrative)* Diagnostic Procedure Only (Urgent) - Closed Specialty Diagnoses / Procedures Referred By Contac t Referred To Contact XR IMAGING Diagnoses Rib pain Procedures XR RIBS/CHEST 3V AP RIB/OBLS/CXR LEFT RADEX RIBS UNI W/POSTEROANT CH MINIMUM 3 VIEWS Jorge Bean APRN.CNP [address] [place] [address] [place] [address] Referral ID Status Reason Start Date Expiration Date V isits Requested Visits Authorized [id number] Closed Auto-Generate d Referral 05/07/2024 06/06/2025 1 1 [facility] for referral (narrative)* Diagnostic Procedure Only (Urgent) - Closed Specialty Diagnoses / Procedures Referred By Contac t Referred To Contact XR IMAGING Diagnoses Rib pain Procedures XR RIBS/CHEST 3V AP RIB/OBLS/CXR LEFT RADEX RIBS UNI W/POSTEROANT CH MINIMUM 3 VIEWS Jorge Bean APRN.ASSOCIATE SOFTWARE APPLICATION ENGINEER [address] [place] [address] [place] [address] Referral ID Status Reason Start Date Expiration Date V isits Requested Visits Authorized [id number] Closed Auto-Generate d Referral 05/07/2024 06/06/2025 1 1 [facility] for referral (narrative)* Diagnostic Procedure Only (Routine) - Closed Specialty Diagnoses / Procedures Referred By Contac t Referred To Contact XR IMAGING Diagnoses Frequent headaches Procedures XR CERV OTHER 4V AP/LAT/OBL X-RAY NECK MINIMUM 4 VIEWS Juan Locke, DO [address] [place] [address] [place] [address] Referral ID Status Reason Start Date Expiration Date V isits Requested Visits Authorized [id number] Closed Auto-Generate d Referral 06/26/2021 07/26/2022 1 1 [facility] for referral (narrative)* Diagnostic Procedure Only (Routine) - New Request Specialty Diagnoses / Procedures Referred By Contac t Referred To Contact XR IMAGING Diagnoses Left shoulder pain, unspecified chronicity Procedures XR SHOULDER GENERAL 3V OR MORE AP/TRUE AP/OTHER LEFT RADEX SHOULDER COMPLETE MINIMUM 2 VIEWS Yared Velázquez MD [address] [place] [address] [place] [address] Referral ID Status Reason Start Date Expiration Date Visits Requested Visits Authorized [id number] New Request Auto-Generat ed Referral 10/07/2024 11/06/2025 1 1 [facility] for visit Narrative* Diagnostic Procedure Only (Urgent) - Closed Specialty Diagnoses / Procedures Referred By Contac t Referred To Contact XR IMAGING Diagnoses Rib pain Procedures XR RIBS/CHEST 3V AP RIB/OBLS/CXR LEFT RADEX RIBS UNI W/POSTEROANT CH MINIMUM 3 VIEWS Jorge Bean APRN.ASSOCIATE SOFTWARE APPLICATION ENGINEER [address] [place] [address] [place] [address] Referral ID Status Reason Start Date Expiration Date V isits Requested Visits Authorized [id number] Closed Auto-Generate d Referral 05/07/2024 06/06/2025 1 1 [facility] for visit Narrative* Diagnostic Procedure Only (Routine) - Closed Specialty Diagnoses / Procedures Referred By Contac t Referred To Contact XR IMAGING Diagnoses Frequent headaches Procedures XR CERV OTHER 4V AP/LAT/OBL X-RAY NECK MINIMUM 4 VIEWS Juan Locke, DO [address] [place] [address] [place] [address] Referral ID Status Reason Start Date Expiration Date V isits Requested Visits Authorized [id number] Closed Auto-Generate d Referral 06/26/2021 07/26/2022 1 1 [facility] Instructions Instruction Description Start Date Patient advised to follow-up with Primary Care Physician for BMI management. Advance Directives No Advanced Directives Records Found Advance Directive Response Recorded Date/ Time Living Will No May 27, 2020 2:38pm Power of Layup Worker No May 2:38pm Advance Directive Response Recorded Date/ Time Living Will No February 28, 2023 11:27am Power of Layup Worker No February 28 11:27am Advance Directive Response Recorded Date/ Time Living Will No November 07, 2 025 4:01pm Do you have a Healthcare Power of Layup Worker? No November 07, 2024 4:01pm Do you have a Healthcare Power of Layup Worker? No February 09, 2025 12:08pm Advance Directive Response Recorded Date/ Time Living Will No November 07, 2 025 4:01pm Do you have a Healthcare Pow er of Layup Worker? No November 07, 2024 4:01pm Do you have a Healthcare Pow er of Layup Worker? Yes February 09, 2025 4:59pm Name of Medical Power of Layup Worker Francheska carlisle February 09, 2025 4:59pm Assessments There may be information available, but it has not been provided by the sender. Review of System There may be information available, but it has not been provided by the sender. Family History No Family History Records Found Relationship Condition Age at Onset Recorded Date/T beckie father Malignant neoplasm of colon Unknown brother Malignant neoplasm Unknown Reason for Referral Specialty Diagnoses / Procedures Referred By Contac t Referred To Contact Diagnoses Uncontrolled type 2 diabetes mellitus with hyperglycemia (HCC) Procedures CONSULT TO DIABETES EDUCATION OFFICE/OUTPATIENT [facility] 60-74 MINUTES Juan Locke DO [address] [facility] [place] [address] Referral ID Status Reason Start Date Expiration Date Visits Requested Visits Authorized [id number] Pending Review PCP Requested Referral 12/27/2021 12/27/2022 1 1 Specialty Diagnoses / Procedures Referred By Contac t Referred To Contact Endocrinology Diagnoses Uncontrolled type 2 diabetes mellitus with hyperglycemia (HCC) Procedures CONSULT TO ENDOCRINOLOGY OFFICE/OUTPATIENT [facility] 60-74 MINUTES Jaun Locke, DO [address] [place] [address] Referral ID Status Reason Start Date Expiration Date Visits Requested Visits Authorized [id number] Pending Review PCP Requested Referral 12/27/2021 12/27/2022 1 1 Specialty Diagnoses / Procedures Referred By Contac t Referred To Contact Diagnoses Uncontrolled type 2 diabetes mellitus with hyperglycemia (HCC) Procedures CONSULT TO ENDOCRINE PHARMACY OFFICE/OUTPATIENT [facility] 60-74 MINUTES Juan Locke, DO [address] [place] [address] Referral ID Status Reason Start Date Expiration Date Visits Requested Visits Authorized [id number] Pending Review PCP Requested Referral 12/27/2021 12/27/2022 1 1 Specialty Diagnoses / Procedures Referred By Contac t Referred To Contact Diagnoses Uncontrolled type 2 diabetes mellitus with hyperglycemia (HCC) Procedures DIABETES [place]AMP (COMPREHENSIVE DIABETES CLINIC) OFFICE/OUTPATIENT [facility] 60-74 MINUTES Juan Locke, DO [address] [place] [address] Referral ID Status Reason Start Date Expiration Date Visits Requested Visits Authorized [id number] Pending Review PCP Requested Referral 12/27/2021 12/27/2022 1 1 Specialty Diagnoses / Procedures Referred By Contac t Referred To Contact General Surgery Diagnoses Internal hemorrhoids Rectal bleeding Irritable bowel syndrome with alternating bowel habits Procedures CONSULT TO GENERAL SURGERY OFFICE/OUTPATIENT [facility] 60-74 MINUTES Juan Locke, DO [address] [place] [address] Referral ID Status Reason Start Date Expiration Date Visits Requested Visits Authorized [id number] Pending Review PCP Requested Referral 01/05/2022 01/05/2023 1 1 Specialty Diagnoses / Procedures Referred By Contac t Referred To Contact General Surgery / GENERAL SURGERY Diagnoses External hemorrhoid Procedures CONSULT TO GENERAL SURGERY OFFICE/OUTPATIENT [facility] 60-74 MINUTES Alberto Larkin MD [address] [place] [address] Luis Enrique Zuniga MD [address] [address] Referral ID Status Reason Start Date Expiration Date Visits Requested Visits Authorized [id number] Pending Review PCP Requested Referral 01/16/2022 01/16/2023 1 1 Specialty Diagnoses / Procedures Referred By Contac t Referred To Contact General Surgery Diagnoses Diarrhea, unspecified type Procedures CONSULT TO GENERAL SURGERY OFFICE/OUTPATIENT [facility] 60-74 MINUTES Juan Locke L, DO [address] [place] [address] Referral ID Status Reason Start Date Expiration Date Visits Requested Visits Authorized [id number] Pending Review PCP Requested Referral 11/28/2022 11/28/2023 1 1 Specialty Diagnoses / Procedures Referred By Contac t Referred To Contact General Surgery Diagnoses Iron deficiency anemia, unspecified iron deficiency anemia type Procedures CONSULT TO GENERAL SURGERY OFFICE/OUTPATIENT [facility] 60-74 MINUTES Juan Locke L, DO [address] [place] [address] Referral ID Status Reason Start Date Expiration Date Visits Requested Visits Authorized [id number] Pending Review PCP Requested Referral 12/28/2022 12/28/2023 1 1 Specialty Diagnoses / Procedures Referred By Contac t Referred To Contact Gastroenterology Diagnoses Iron deficiency anemia, unspecified iron deficiency anemia type Procedures CONSULT TO GASTROENTEROLOGY OFFICE/OUTPATIENT [facility] 60-74 MINUTES Juan Locke L, DO [address] [place] [address] Referral ID Status Reason Start Date Expiration Date Visits Requested Visits Authorized [id number] Pending Review PCP Requested Referral 03/14/2023 03/13/2024 1 1 Specialty Diagnoses / Procedures Referred By Contac t Referred To Contact Hematology Diagnoses Iron deficiency anemia, unspecified iron deficiency anemia type Procedures CONSULT TO HEMATOLOGY OFFICE/OUTPATIENT [facility] 60-74 MINUTES Juan Locke L, DO [address] [place] [address] Referral ID Status Reason Start Date Expiration Date Visits Requested Visits Authorized [id number] Pending Review PCP Requested Referral 03/14/2023 03/13/2024 1 1 Specialty Diagnoses / Procedures Referred By Contac t Referred To Contact Colon and Rectal Surgery Diagnoses Internal hemorrhoids Rectal bleeding Procedures CONSULT TO COLO-RECTAL SURGERY OFFICE/OUTPATIENT [facility] 60-74 MINUTES Juan Locke L, DO [address] [place] [address] Referral ID Status Reason Start Date Expiration Date Visits Requested Visits Authorized [id number] Pending Review PCP Requested Referral 3 07/26/2024 1 1 Specialty Diagnoses / Procedures Referred By Contac t Referred To Contact Gastroenterology Diagnoses Portal venous hypertension (HCC) Procedures CONSULT TO GASTROENTEROLOGY OFFICE/OUTPATIENT [facility] 60 MINUTES Juan Locke L, DO [address] [place] [address] Referral ID Status Reason Start Date Expiration Date Visits Requested Visits Authorized [id number] Authorized PCP Requested Referral 10/14/2023 10/09/2024 1 1 Specialty Diagnoses / Procedures Referred By Contac t Referred To Contact Diagnoses Uncontrolled type 2 diabetes mellitus with hyperglycemia (HCC) Kavitha Hayes, SATELLITE MANAGER.ASSOCIATE SOFTWARE APPLICATION ENGINEER [address] [place] [address] Referral ID Status Reason Start Date Expiration Date Visits Re quested Visits Authorized [id number] Closed 1 1 Specialty Diagnoses / Procedures Referred By Contac t Referred To Contact CT IMAGING Diagnoses Pleural effusion Exertional shortness of breath Procedures CT CHEST WO IVCON DIAGNOSTIC COMPUTED TOMOGRAPHY THORAX W/O CNTRST Juan Locke L, DO [address] [place] [address] [place] [address] Referral ID Status Reason Start Date Expiration Date Visits Requested Visits Authorized [id number] Authorized Auto-Generat ed Referral 01/01/2024 01/30/2025 1 1 Specialty Diagnoses / Procedures Referred By Contac t Referred To Contact Diagnoses Uncontrolled type 2 diabetes mellitus with hyperglycemia (HCC) Nury Alexander, SATELLITE MANAGER.ASSOCIATE SOFTWARE APPLICATION ENGINEER [address] [place] [address] Referral ID Status Reason Start Date Expiration Date V isits Requested Visits Authorized [id number] Pending Review 05/12/2024 07/11/2024 1 1 Referral ID Status Reason Start Date Expiration Date V isits Requested Visits Authorized [id number] Pending Review 05/12/2024 07/11/2024 1 1 Specialty Diagnoses / Procedures Referred By Contac t Referred To Contact CT IMAGING Diagnoses Intra-abdominal and pelvic swelling, mass and lump, unspecified site Right lower quadrant abdominal pain Procedures CT ABD/PEL W IVCON CT ABD & PELVIS W/CONTRAST Nury Alexander, SATELLITE MANAGER.ASSOCIATE SOFTWARE APPLICATION ENGINEER [address] [place] [address] [place] [address] Referral ID Status Reason Start Date Expiration Date V isits Requested Visits Authorized [id number] Closed Auto-Generate d Referral 05/12/2024 06/11/2025 2 2 Specialty Diagnoses / Procedures Referred By Contac t Referred To Contact General Surgery Diagnoses Intra-abdominal and pelvic swelling, mass and lump, unspecified site Right lower quadrant abdominal pain Procedures CONSULT TO GENERAL SURGERY OFFICE/OUTPATIENT [facility] 60 MINUTES Nury Alexander, SATELLITE MANAGER.ASSOCIATE SOFTWARE APPLICATION ENGINEER [address] [place] [address] Referral ID Status Reason Start Date Expiration Date Visits Requested Visits Authorized [id number] Authorized PCP Requested Referral 05/12/2024 05/12/2025 1 1 Specialty Diagnoses / Procedures Referred By Contac t Referred To Contact Diagnoses Intra-abdominal and pelvic swelling, mass and lump, unspecified site Right lower quadrant abdominal pain Nury Alexander, SATELLITE MANAGER.ASSOCIATE SOFTWARE APPLICATION ENGINEER [address] [place] [address] Referral ID Status Reason Start Date Expiration Date V isits Requested Visits Authorized [id number] Pending Review 1 1 Specialty Diagnoses / Procedures Referred By Contac t Referred To Contact General Surgery Diagnoses Intra-abdominal and pelvic swelling, mass and lump, unspecified site Right lower quadrant abdominal pain Procedures CONSULT TO GENERAL SURGERY OFFICE/OUTPATIENT [facility] 60 MINUTES Alberto Larkin MD [address] [place] [address] Mery Hernandez MD [address] [place] [address] Referral ID Status Reason Start Date Expiration Date Visits Requested Visits Authorized [id number] Authorized PCP Requested Referral 05/27/2024 05/27/2025 1 1 Specialty Diagnoses / Procedures Referred By Contac t Referred To Contact CT IMAGING Diagnoses Lung nodules Procedures CT CHEST W IVCON DIAGNOSTIC COMPUTED TOMOGRAPHY THORAX W/CONTRAST Mery Hernandez MD [address] [place] [address] [place] [address] Referral ID Status Reason Start Date Expiration Date Visits Requested Visits Authorized [id number] Authorized Auto-Generat ed Referral 4 07/31/2025 1 1 Specialty Diagnoses / Procedures Referred By Contac t Referred To Contact CT IMAGING Diagnoses Right lower quadrant abdominal pain Procedures CT ABD/PEL W IVCON CT ABD & PELVIS W/CONTRAST Mery Hernandez MD [address] [place] [address] [place] [address] Referral ID Status Reason Start Date Expiration Date Visits Requested Visits Authorized [id number] Authorized Auto-Generat ed Referral 07/31/2025 1 1 Specialty Diagnoses / Procedures Referred By Contac t Referred To Contact Nutrition Diagnoses Cirrhosis, nonalcoholic (HCC) Procedures CONSULT TO NUTRITION THERAPY MEDICAL NUTRITION ASSMT&IVNTJ INDIV EACH 15 OR Juan Locke L, DO [address] [place] [address] Referral ID Status Reason Start Date Expiration Date Visits Requested Visits Authorized [id number] Authorized PCP Requested Referral 07/08/2025 1 4 Referral ID Status Reason Start Date Expiration Date Visits Requested Visits Authorized [id number] New Request Auto-Generat ed Referral 11/17/2024 09/18/2025 1 1 Specialty Diagnoses / Procedures Referred By Geena pardo Referred To Contact Orthopedics Diagnoses Closed fracture of left upper extremity with routine healing, subsequent encounter Procedures CONSULT TO ORTHOPAEDICS OFFICE/OUTPATIENT [facility] 60 MINUTES Nury Alexander APRN.CNP [address] [place] [address] Referral ID Status Reason Start Date Expiration Date Visits Requested Visits Authorized [id number] Authorized PCP Requested Referral 09/01/2025 1 1 Chief Complaint and Reason for Visit Chief Complaint UTI Chief Complaint MIXED INCONTINENCE R X HERE Chief Complaint Admit Date MESENTERIC MASS October 22, 2024 1 0:06am weakness November 07, 2024 2:07pm weakness November 07, 2024 2:56pm weakness November 07, 2024 9:46pm weakness November 08, 2024 10:41am weakness November 09, 2024 11:56am weakness November 09, 2024 12:43pm weakness November 10, 2024 3:56pm Hospital FU November 20, 2024 10:2 8am pill cam December 07, 2024 10: 00am UGIB, ABLA February 09, 2025 4:18p m UGIB, ABLA February 09, 2025 4:24p m Reason for Visit Admit Date Anemia requiring transfusions October 182024 2:07pm Esophageal varices November 07, 2024 2:07pm Syncope November 07, 2024 2:07pm Cirrhosis November 07, 2024 2:07pm Pleural effusion on left November 07, 2024 2:07pm Esophageal varices November 20, 2024 10:2 8am Liver failure November 20, 2024 10:2 8am Cirrhosis November 20, 2024 10:2 8am ABLA (acute blood loss anemia) February 09, 2025 4:18pm Acute upper gastrointestinal bleeding Ma y 2024 4:18pm Chief Complaint Admit Date MESENTERIC MASS October 22, 2024 1 0:06am weakness November 07, 2024 2:07pm weakness November 07, 2024 2:56pm weakness November 07, 2024 9:46pm weakness November 08, 2024 10:41am weakness November 09, 2024 11:56am weakness November 09, 2024 12:43pm weakness November 10, 2024 3:56pm Hospital November 20, 2024 10:2 8am pill cam December 07, 2024 10: 00am UGIB, ABLA February 09, 2025 4:18p m UGIB, ABLA February 09, 2025 4:24p m UGIB, ABLA February 09, 2025 5:45p m UGIB, ABLA February 10, 2025 2:30p m UGIB, ABLA February 10, 2025 3:09p m UGIB, ABLA February 11, 2025 10:36 am UGIB, ABLA February 11, 2025 1:12p m UGIB, ABLA February 12, 2025 3:50p m Reason for Visit Admit Date Anemia requiring transfusions October 182024 2:07pm Esophageal varices November 07, 2024 2:07pm Syncope November 07, 2024 2:07pm Cirrhosis November 07, 2024 2:07pm Pleural effusion on left November 07, 2024 2:07pm Esophageal varices November 20, 2024 10:2 8am Liver failure November 20, 2024 10:2 8am Cirrhosis November 20, 2024 10:2 8am ABLA (acute blood loss anemia) February 09, 2025 4:18pm Acute upper gastrointestinal bleeding Ma y 2024 4:18pm Pleural effusion on left February 09, 2025 4:18pm Chief Complaint Admit Date weakness November 07, 2024 2:07pm weakness November 07, 2024 2:56pm weakness November 07, 2024 9:46pm weakness November 08, 2024 10:41am weakness November 09, 2024 11:56am weakness November 09, 2024 12:43pm weakness November 10, 2024 3:56pm Hospital November 20, 2024 10:2 8am pill cam December 07, 2024 10: 00am UGIB, ABLA February 09, 2025 4:18p m UGIB, ABLA February 09, 2025 4:24p m UGIB, ABLA February 09, 2025 5:45p m UGIB, ABLA February 10, 2025 2:30p m UGIB, ABLA February 10, 2025 3:09p m UGIB, ABLA February 11, 2025 10:36 am UGIB, ABLA February 11, 2025 1:12p m UGIB, ABLA February 12, 2025 3:50p m HOSP FU-BLEEDING February 26, 2025 1:03 pm Reason for Visit Admit Date Anemia requiring transfusions October 182024 2:07pm Esophageal varices November 07, 2024 2:07pm Syncope November 07, 2024 2:07pm Cirrhosis November 07, 2024 2:07pm Pleural effusion on left November 07, 2024 2:07pm Esophageal varices November 20, 2024 10:2 8am Liver failure November 20, 2024 10:2 8am Cirrhosis November 20, 2024 10:2 8am ABLA (acute blood loss anemia) February 09, 2025 4:18pm Acute upper gastrointestinal bleeding Ma y 2024 4:18pm Pleural effusion on left February 09, 2025 4:18pm Esophageal varices February 26, 2025 1:03 pm Liver failure February 26, 2025 1:03 pm Cirrhosis February 26, 2025 1:03 pm Chief Complaint Admit Date weakness November 07, 2024 2:07pm weakness November 07, 2024 2:56pm weakness November 07, 2024 9:46pm weakness November 08, 2024 10:41am weakness November 09, 2024 11:56am weakness November 09, 2024 12:43pm weakness November 10, 2024 3:56pm Hospital FU November 20, 2024 10:2 8am pill cam December 07, 2024 10: 00am UGIB, ABLA February 09, 2025 4:18p m UGIB, ABLA February 09, 2025 4:24p m UGIB, ABLA February 09, 2025 5:45p m UGIB, ABLA February 10, 2025 2:30p m UGIB, ABLA February 10, 2025 3:09p m UGIB, ABLA February 11, 2025 10:36 am UGIB, ABLA February 11, 2025 1:12p m UGIB, ABLA February 12, 2025 3:50p m HOSP FU-BLEEDING February 26, 2025 1:03 pm INT LAB ORDERS February 26, 2025 2:07 pm Reason for Visit Admit Date Anemia requiring transfusions October 182024 2:07pm Esophageal varices November 07, 2024 2:07pm Syncope November 07, 2024 2:07pm Cirrhosis November 07, 2024 2:07pm Pleural effusion on left November 07, 2024 2:07pm Esophageal varices November 20, 2024 10:2 8am Cirrhosis November 20, 2024 10:2 8am Liver failure November 20, 2024 10:2 8am ABLA (acute blood loss anemia) February 09, 2025 4:18pm Acute upper gastrointestinal bleeding Ma y 2024 4:18pm Pleural effusion on left February 09, 2025 4:18pm Esophageal varices February 26, 2025 1:03 pm Cirrhosis February 26, 2025 1:03 pm Liver failure February 26, 2025 1:03 pm Health Concerns Infection Onset Date Last Indicated Resolved Time COVID-19 Rule-Out 11/09/2022 11/09/2022 Infection Onset Date Last Indicated Resolved Time COVID-19 Confirmed 11/09/2022 11/09/2022 Summary Purpose Additional Source Comments Source Comments (unrecognize d section and content) In the event this informatio n is protected by the Federal Confidentiality of Alcohol and Drug Abuse Patient Records regulations: The Federal rules restrict any use of the information to criminally investigate or prosecute any alcohol or drug abuse patient.[facility] the event this information is protected by the Federal Confidentiality of Alcohol and Drug Abuse Patient Records regulations: The Federal rules restrict any use of the information to criminally investigate or prosecute any alcohol or drug abuse patient.[facility] HospitalIn the event this information is protected by the Federal Confidentiality of Alcohol and Drug Abuse Patient Records regulations: The Federal rules restrict any use of the information to criminally investigate or prosecute any alcohol or drug abuse patient.[facility] HospitalIn the event this information is protected by the Federal Confidentiality of Alcohol and Drug Abuse Patient Records regulations: The Federal rules restrict any use of the information to criminally investigate or prosecute any alcohol or drug abuse patient.[facility] HospitalIn the event this information is protected by the Federal Confidentiality of Alcohol and Drug Abuse Patient Records regulations: The Federal rules restrict any use of the information to criminally investigate or prosecute any alcohol or drug abuse patient.[facility] HospitalIn the event this information is protected by the Federal Confidentiality of Alcohol and Drug Abuse Patient Records regulations: The Federal rules restrict any use of the information to criminally investigate or prosecute any alcohol or drug abuse patient.[facility] HospitalIn the event this information is protected by the Federal Confidentiality of Alcohol and Drug Abuse Patient Records regulations: The Federal rules restrict any use of the information to criminally investigate or prosecute any alcohol or drug abuse patient.[facility] HospitalIn the event this information is protected by the Federal Confidentiality of Alcohol and Drug Abuse Patient Records regulations: The Federal rules restrict any use of the information to criminally investigate or prosecute any alcohol or drug abuse patient.[facility] HospitalIn the event this information is protected by the Federal Confidentiality of Alcohol and Drug Abuse Patient Records regulations: The Federal rules restrict any use of the information to criminally investigate or prosecute any alcohol or drug abuse patient.[facility] HospitalIn the event this information is protected by the Federal Confidentiality of Alcohol and Drug Abuse Patient Records regulations: The Federal rules restrict any use of the information to criminally investigate or prosecute any alcohol or drug abuse patient.[facility] HospitalIn the event this information is protected by the Federal Confidentiality of Alcohol and Drug Abuse Patient Records regulations: The Federal rules restrict any use of the information to criminally investigate or prosecute any alcohol or drug abuse patient.[facility] HospitalIn the event this information is protected by the Federal Confidentiality of Alcohol and Drug Abuse Patient Records regulations: The Federal rules restrict any use of the information to criminally investigate or prosecute any alcohol or drug abuse patient.[facility] HospitalIn the event this information is protected by the Federal Confidentiality of Alcohol and Drug Abuse Patient Records regulations: The Federal rules restrict any use of the information to criminally investigate or prosecute any alcohol or drug abuse patient.[facility] HospitalIn the event this information is protected by the Federal Confidentiality of Alcohol and Drug Abuse Patient Records regulations: The Federal rules restrict any use of the information to criminally investigate or prosecute any alcohol or drug abuse patient.[facility] HospitalIn the event this information is protected by the Federal Confidentiality of Alcohol and Drug Abuse Patient Records regulations: The Federal rules restrict any use of the information to criminally investigate or prosecute any alcohol or drug abuse patient.[facility] HospitalIn the event this information is protected by the Federal Confidentiality of Alcohol and Drug Abuse Patient Records regulations: The Federal rules restrict any use of the information to criminally investigate or prosecute any alcohol or drug abuse patient.[facility] HospitalIn the event this information is protected by the Federal Confidentiality of Alcohol and Drug Abuse Patient Records regulations: The Federal rules restrict any use of the information to criminally investigate or prosecute any alcohol or drug abuse patient.[facility] HospitalIn the event this information is protected by the Federal Confidentiality of Alcohol and Drug Abuse Patient Records regulations: The Federal rules restrict any use of the information to criminally investigate or prosecute any alcohol or drug abuse patient.[facility] HospitalIn the event this information is protected by the Federal Confidentiality of Alcohol and Drug Abuse Patient Records regulations: The Federal rules restrict any use of the information to criminally investigate or prosecute any alcohol or drug abuse patient.[facility] HospitalIn the event this information is protected by the Federal Confidentiality of Alcohol and Drug Abuse Patient Records regulations: The Federal rules restrict any use of the information to criminally investigate or prosecute any alcohol or drug abuse patient.[facility] HospitalIn the event this information is protected by the Federal Confidentiality of Alcohol and Drug Abuse Patient Records regulations: The Federal rules restrict any use of the information to criminally investigate or prosecute any alcohol or drug abuse patient.[facility] HospitalIn the event this information is protected by the Federal Confidentiality of Alcohol and Drug Abuse Patient Records regulations: The Federal rules restrict any use of the information to criminally investigate or prosecute any alcohol or drug abuse patient.[facility] HospitalIn the event this information is protected by the Federal Confidentiality of Alcohol and Drug Abuse Patient Records regulations: The Federal rules restrict any use of the information to criminally investigate or prosecute any alcohol or drug abuse patient.[facility] HospitalIn the event this information is protected by the Federal Confidentiality of Alcohol and Drug Abuse Patient Records regulations: The Federal rules restrict any use of the information to criminally investigate or prosecute any alcohol or drug abuse patient.[facility] HospitalIn the event this information is protected by the Federal Confidentiality of Alcohol and Drug Abuse Patient Records regulations: The Federal rules restrict any use of the information to criminally investigate or prosecute any alcohol or drug abuse patient.[facility] HospitalIn the event this information is protected by the Federal Confidentiality of Alcohol and Drug Abuse Patient Records regulations: The Federal rules restrict any use of the information to criminally investigate or prosecute any alcohol or drug abuse patient.[facility] HospitalIn the event this information is protected by the Federal Confidentiality of Alcohol and Drug Abuse Patient Records regulations: The Federal rules restrict any use of the information to criminally investigate or prosecute any alcohol or drug abuse patient.[facility] HospitalIn the event this information is protected by the Federal Confidentiality of Alcohol and Drug Abuse Patient Records regulations: The Federal rules restrict any use of the information to criminally investigate or prosecute any alcohol or drug abuse patient.[facility] HospitalIn the event this information is protected by the Federal Confidentiality of Alcohol and Drug Abuse Patient Records regulations: The Federal rules restrict any use of the information to criminally investigate or prosecute any alcohol or drug abuse patient.[facility] HospitalIn the event this information is protected by the Federal Confidentiality of Alcohol and Drug Abuse Patient Records regulations: The Federal rules restrict any use of the information to criminally investigate or prosecute any alcohol or drug abuse patient.[facility] HospitalIn the event this information is protected by the Federal Confidentiality of Alcohol and Drug Abuse Patient Records regulations: The Federal rules restrict any use of the information to criminally investigate or prosecute any alcohol or drug abuse patient.[facility] HospitalIn the event this information is protected by the Federal Confidentiality of Alcohol and Drug Abuse Patient Records regulations: The Federal rules restrict any use of the information to criminally investigate or prosecute any alcohol or drug abuse patient.[facility] HospitalIn the event this information is protected by the Federal Confidentiality of Alcohol and Drug Abuse Patient Records regulations: The Federal rules restrict any use of the information to criminally investigate or prosecute any alcohol or drug abuse patient.[facility] HospitalIn the event this information is protected by the Federal Confidentiality of Alcohol and Drug Abuse Patient Records regulations: The Federal rules restrict any use of the information to criminally investigate or prosecute any alcohol or drug abuse patient.[facility] HospitalIn the event this information is protected by the Federal Confidentiality of Alcohol and Drug Abuse Patient Records regulations: The Federal rules restrict any use of the information to criminally investigate or prosecute any alcohol or drug abuse patient.[facility] HospitalIn the event this information is protected by the Federal Confidentiality of Alcohol and Drug Abuse Patient Records regulations: The Federal rules restrict any use of the information to criminally investigate or prosecute any alcohol or drug abuse patient.[facility] HospitalIn the event this information is protected by the Federal Confidentiality of Alcohol and Drug Abuse Patient Records regulations: The Federal rules restrict any use of the information to criminally investigate or prosecute any alcohol or drug abuse patient.[facility] HospitalIn the event this information is protected by the Federal Confidentiality of Alcohol and Drug Abuse Patient Records regulations: The Federal rules restrict any use of the information to criminally investigate or prosecute any alcohol or drug abuse patient.[facility] HospitalIn the event this information is protected by the Federal Confidentiality of Alcohol and Drug Abuse Patient Records regulations: The Federal rules restrict any use of the information to criminally investigate or prosecute any alcohol or drug abuse patient.[facility] HospitalIn the event this information is protected by the Federal Confidentiality of Alcohol and Drug Abuse Patient Records regulations: The Federal rules restrict any use of the information to criminally investigate or prosecute any alcohol or drug abuse patient.[facility] HospitalIn the event this information is protected by the Federal Confidentiality of Alcohol and Drug Abuse Patient Records regulations: The Federal rules restrict any use of the information to criminally investigate or prosecute any alcohol or drug abuse patient.[facility] HospitalIn the event this information is protected by the Federal Confidentiality of Alcohol and Drug Abuse Patient Records regulations: The Federal rules restrict any use of the information to criminally investigate or prosecute any alcohol or drug abuse patient.[facility] HospitalIn the event this information is protected by the Federal Confidentiality of Alcohol and Drug Abuse Patient Records regulations: The Federal rules restrict any use of the information to criminally investigate or prosecute any alcohol or drug abuse patient.[facility] HospitalIn the event this information is protected by the Federal Confidentiality of Alcohol and Drug Abuse Patient Records regulations: The Federal rules restrict any use of the information to criminally investigate or prosecute any alcohol or drug abuse patient.[facility] HospitalIn the event this information is protected by the Federal Confidentiality of Alcohol and Drug Abuse Patient Records regulations: The Federal rules restrict any use of the information to criminally investigate or prosecute any alcohol or drug abuse patient.[facility] HospitalIn the event this information is protected by the Federal Confidentiality of Alcohol and Drug Abuse Patient Records regulations: The Federal rules restrict any use of the information to criminally investigate or prosecute any alcohol or drug abuse patient.[facility] HospitalIn the event this information is protected by the Federal Confidentiality of Alcohol and Drug Abuse Patient Records regulations: The Federal rules restrict any use of the information to criminally investigate or prosecute any alcohol or drug abuse patient.[facility] HospitalIn the event this information is protected by the Federal Confidentiality of Alcohol and Drug Abuse Patient Records regulations: The Federal rules restrict any use of the information to criminally investigate or prosecute any alcohol or drug abuse patient.[facility] HospitalIn the event this information is protected by the Federal Confidentiality of Alcohol and Drug Abuse Patient Records regulations: The Federal rules restrict any use of the information to criminally investigate or prosecute any alcohol or drug abuse patient.[facility] HospitalIn the event this information is protected by the Federal Confidentiality of Alcohol and Drug Abuse Patient Records regulations: The Federal rules restrict any use of the information to criminally investigate or prosecute any alcohol or drug abuse patient.[facility] HospitalIn the event this information is protected by the Federal Confidentiality of Alcohol and Drug Abuse Patient Records regulations: The Federal rules restrict any use of the information to criminally investigate or prosecute any alcohol or drug abuse patient.[facility] HospitalIn the event this information is protected by the Federal Confidentiality of Alcohol and Drug Abuse Patient Records regulations: The Federal rules restrict any use of the information to criminally investigate or prosecute any alcohol or drug abuse patient.[facility] HospitalIn the event this information is protected by the Federal Confidentiality of Alcohol and Drug Abuse Patient Records regulations: The Federal rules restrict any use of the information to criminally investigate or prosecute any alcohol or drug abuse patient.[facility] HospitalIn the event this information is protected by the Federal Confidentiality of Alcohol and Drug Abuse Patient Records regulations: The Federal rules restrict any use of the information to criminally investigate or prosecute any alcohol or drug abuse patient.[facility] HospitalIn the event this information is protected by the Federal Confidentiality of Alcohol and Drug Abuse Patient Records regulations: The Federal rules restrict any use of the information to criminally investigate or prosecute any alcohol or drug abuse patient.[facility] HospitalIn the event this information is protected by the Federal Confidentiality of Alcohol and Drug Abuse Patient Records regulations: The Federal rules restrict any use of the information to criminally investigate or prosecute any alcohol or drug abuse patient.[facility] HospitalIn the event this information is protected by the Federal Confidentiality of Alcohol and Drug Abuse Patient Records regulations: The Federal rules restrict any use of the information to criminally investigate or prosecute any alcohol or drug abuse patient.[facility] HospitalIn the event this information is protected by the Federal Confidentiality of Alcohol and Drug Abuse Patient Records regulations: The Federal rules restrict any use of the information to criminally investigate or prosecute any alcohol or drug abuse patient.[facility] HospitalIn the event this information is protected by the Federal Confidentiality of Alcohol and Drug Abuse Patient Records regulations: The Federal rules restrict any use of the information to criminally investigate or prosecute any alcohol or drug abuse patient.[facility] HospitalIn the event this information is protected by the Federal Confidentiality of Alcohol and Drug Abuse Patient Records regulations: The Federal rules restrict any use of the information to criminally investigate or prosecute any alcohol or drug abuse patient.[facility] HospitalIn the event this information is protected by the Federal Confidentiality of Alcohol and Drug Abuse Patient Records regulations: The Federal rules restrict any use of the information to criminally investigate or prosecute any alcohol or drug abuse patient.[facility] HospitalIn the event this information is protected by the Federal Confidentiality of Alcohol and Drug Abuse Patient Records regulations: The Federal rules restrict any use of the information to criminally investigate or prosecute any alcohol or drug abuse patient.[facility] HospitalIn the event this information is protected by the Federal Confidentiality of Alcohol and Drug Abuse Patient Records regulations: The Federal rules restrict any use of the information to criminally investigate or prosecute any alcohol or drug abuse patient.[facility] HospitalIn the event this information is protected by the Federal Confidentiality of Alcohol and Drug Abuse Patient Records regulations: The Federal rules restrict any use of the information to criminally investigate or prosecute any alcohol or drug abuse patient.[facility] HospitalIn the event this information is protected by the Federal Confidentiality of Alcohol and Drug Abuse Patient Records regulations: The Federal rules restrict any use of the information to criminally investigate or prosecute any alcohol or drug abuse patient.[facility] HospitalIn the event this information is protected by the Federal Confidentiality of Alcohol and Drug Abuse Patient Records regulations: The Federal rules restrict any use of the information to criminally investigate or prosecute any alcohol or drug abuse patient.[facility] HospitalIn the event this information is protected by the Federal Confidentiality of Alcohol and Drug Abuse Patient Records regulations: The Federal rules restrict any use of the information to criminally investigate or prosecute any alcohol or drug abuse patient.[facility] HospitalIn the event this information is protected by the Federal Confidentiality of Alcohol and Drug Abuse Patient Records regulations: The Federal rules restrict any use of the information to criminally investigate or prosecute any alcohol or drug abuse patient.[facility] HospitalIn the event this information is protected by the Federal Confidentiality of Alcohol and Drug Abuse Patient Records regulations: The Federal rules restrict any use of the information to criminally investigate or prosecute any alcohol or drug abuse patient.[facility] HospitalIn the event this information is protected by the Federal Confidentiality of Alcohol and Drug Abuse Patient Records regulations: The Federal rules restrict any use of the information to criminally investigate or prosecute any alcohol or drug abuse patient.[facility] HospitalIn the event this information is protected by the Federal Confidentiality of Alcohol and Drug Abuse Patient Records regulations: The Federal rules restrict any use of the information to criminally investigate or prosecute any alcohol or drug abuse patient.[facility] HospitalIn the event this information is protected by the Federal Confidentiality of Alcohol and Drug Abuse Patient Records regulations: The Federal rules restrict any use of the information to criminally investigate or prosecute any alcohol or drug abuse patient.[facility] HospitalIn the event this information is protected by the Federal Confidentiality of Alcohol and Drug Abuse Patient Records regulations: The Federal rules restrict any use of the information to criminally investigate or prosecute any alcohol or drug abuse patient.[facility] HospitalIn the event this information is protected by the Federal Confidentiality of Alcohol and Drug Abuse Patient Records regulations: The Federal rules restrict any use of the information to criminally investigate or prosecute any alcohol or drug abuse patient.[facility] HospitalIn the event this information is protected by the Federal Confidentiality of Alcohol and Drug Abuse Patient Records regulations: The Federal rules restrict any use of the information to criminally investigate or prosecute any alcohol or drug abuse patient.[facility] HospitalIn the event this information is protected by the Federal Confidentiality of Alcohol and Drug Abuse Patient Records regulations: The Federal rules restrict any use of the information to criminally investigate or prosecute any alcohol or drug abuse patient.[facility] HospitalIn the event this information is protected by the Federal Confidentiality of Alcohol and Drug Abuse Patient Records regulations: The Federal rules restrict any use of the information to criminally investigate or prosecute any alcohol or drug abuse patient.[facility] HospitalIn the event this information is protected by the Federal Confidentiality of Alcohol and Drug Abuse Patient Records regulations: The Federal rules restrict any use of the information to criminally investigate or prosecute any alcohol or drug abuse patient.[facility] HospitalIn the event this information is protected by the Federal Confidentiality of Alcohol and Drug Abuse Patient Records regulations: The Federal rules restrict any use of the information to criminally investigate or prosecute any alcohol or drug abuse patient.[facility] HospitalIn the event this information is protected by the Federal Confidentiality of Alcohol and Drug Abuse Patient Records regulations: The Federal rules restrict any use of the information to criminally investigate or prosecute any alcohol or drug abuse patient.[facility] HospitalIn the event this information is protected by the Federal Confidentiality of Alcohol and Drug Abuse Patient Records regulations: The Federal rules restrict any use of the information to criminally investigate or prosecute any alcohol or drug abuse patient.[facility] HospitalIn the event this information is protected by the Federal Confidentiality of Alcohol and Drug Abuse Patient Records regulations: The Federal rules restrict any use of the information to criminally investigate or prosecute any alcohol or drug abuse patient.[facility] HospitalIn the event this information is protected by the Federal Confidentiality of Alcohol and Drug Abuse Patient Records regulations: The Federal rules restrict any use of the information to criminally investigate or prosecute any alcohol or drug abuse patient.[facility] HospitalIn the event this information is protected by the Federal Confidentiality of Alcohol and Drug Abuse Patient Records regulations: The Federal rules restrict any use of the information to criminally investigate or prosecute any alcohol or drug abuse patient.[facility] HospitalIn the event this information is protected by the Federal Confidentiality of Alcohol and Drug Abuse Patient Records regulations: The Federal rules restrict any use of the information to criminally investigate or prosecute any alcohol or drug abuse patient.[facility] HospitalIn the event this information is protected by the Federal Confidentiality of Alcohol and Drug Abuse Patient Records regulations: The Federal rules restrict any use of the information to criminally investigate or prosecute any alcohol or drug abuse patient.[facility] HospitalIn the event this information is protected by the Federal Confidentiality of Alcohol and Drug Abuse Patient Records regulations: The Federal rules restrict any use of the information to criminally investigate or prosecute any alcohol or drug abuse patient.[facility] HospitalIn the event this information is protected by the Federal Confidentiality of Alcohol and Drug Abuse Patient Records regulations: The Federal rules restrict any use of the information to criminally investigate or prosecute any alcohol or drug abuse patient.[facility] HospitalIn the event this information is protected by the Federal Confidentiality of Alcohol and Drug Abuse Patient Records regulations: The Federal rules restrict any use of the information to criminally investigate or prosecute any alcohol or drug abuse patient.[facility] HospitalIn the event this information is protected by the Federal Confidentiality of Alcohol and Drug Abuse Patient Records regulations: The Federal rules restrict any use of the information to criminally investigate or prosecute any alcohol or drug abuse patient.[facility] HospitalIn the event this information is protected by the Federal Confidentiality of Alcohol and Drug Abuse Patient Records regulations: The Federal rules restrict any use of the information to criminally investigate or prosecute any alcohol or drug abuse patient.[facility] HospitalIn the event this information is protected by the Federal Confidentiality of Alcohol and Drug Abuse Patient Records regulations: The Federal rules restrict any use of the information to criminally investigate or prosecute any alcohol or drug abuse patient.[facility] HospitalIn the event this information is protected by the Federal Confidentiality of Alcohol and Drug Abuse Patient Records regulations: The Federal rules restrict any use of the information to criminally investigate or prosecute any alcohol or drug abuse patient.[facility] HospitalIn the event this information is protected by the Federal Confidentiality of Alcohol and Drug Abuse Patient Records regulations: The Federal rules restrict any use of the information to criminally investigate or prosecute any alcohol or drug abuse patient.[facility] HospitalIn the event this information is protected by the Federal Confidentiality of Alcohol and Drug Abuse Patient Records regulations: The Federal rules restrict any use of the information to criminally investigate or prosecute any alcohol or drug abuse patient.[facility] HospitalIn the event this information is protected by the Federal Confidentiality of Alcohol and Drug Abuse Patient Records regulations: The Federal rules restrict any use of the information to criminally investigate or prosecute any alcohol or drug abuse patient.[facility] HospitalIn the event this information is protected by the Federal Confidentiality of Alcohol and Drug Abuse Patient Records regulations: The Federal rules restrict any use of the information to criminally investigate or prosecute any alcohol or drug abuse patient.[facility] HospitalIn the event this information is protected by the Federal Confidentiality of Alcohol and Drug Abuse Patient Records regulations: The Federal rules restrict any use of the information to criminally investigate or prosecute any alcohol or drug abuse patient.[facility] HospitalIn the event this information is protected by the Federal Confidentiality of Alcohol and Drug Abuse Patient Records regulations: The Federal rules restrict any use of the information to criminally investigate or prosecute any alcohol or drug abuse patient.[facility] HospitalIn the event this information is protected by the Federal Confidentiality of Alcohol and Drug Abuse Patient Records regulations: The Federal rules restrict any use of the information to criminally investigate or prosecute any alcohol or drug abuse patient.[facility] HospitalIn the event this information is protected by the Federal Confidentiality of Alcohol and Drug Abuse Patient Records regulations: The Federal rules restrict any use of the information to criminally investigate or prosecute any alcohol or drug abuse patient.[facility] HospitalIn the event this information is protected by the Federal Confidentiality of Alcohol and Drug Abuse Patient Records regulations: The Federal rules restrict any use of the information to criminally investigate or prosecute any alcohol or drug abuse patient.[facility] HospitalIn the event this information is protected by the Federal Confidentiality of Alcohol and Drug Abuse Patient Records regulations: The Federal rules restrict any use of the information to criminally investigate or prosecute any alcohol or drug abuse patient.[facility] HospitalIn the event this information is protected by the Federal Confidentiality of Alcohol and Drug Abuse Patient Records regulations: The Federal rules restrict any use of the information to criminally investigate or prosecute any alcohol or drug abuse patient.[facility] HospitalIn the event this information is protected by the Federal Confidentiality of Alcohol and Drug Abuse Patient Records regulations: The Federal rules restrict any use of the information to criminally investigate or prosecute any alcohol or drug abuse patient.[facility] HospitalIn the event this information is protected by the Federal Confidentiality of Alcohol and Drug Abuse Patient Records regulations: The Federal rules restrict any use of the information to criminally investigate or prosecute any alcohol or drug abuse patient.[facility] HospitalIn the event this information is protected by the Federal Confidentiality of Alcohol and Drug Abuse Patient Records regulations: The Federal rules restrict any use of the information to criminally investigate or prosecute any alcohol or drug abuse patient.[facility] HospitalIn the event this information is protected by the Federal Confidentiality of Alcohol and Drug Abuse Patient Records regulations: The Federal rules restrict any use of the information to criminally investigate or prosecute any alcohol or drug abuse patient.[facility] HospitalIn the event this information is protected by the Federal Confidentiality of Alcohol and Drug Abuse Patient Records regulations: The Federal rules restrict any use of the information to criminally investigate or prosecute any alcohol or drug abuse patient.[facility] HospitalIn the event this information is protected by the Federal Confidentiality of Alcohol and Drug Abuse Patient Records regulations: The Federal rules restrict any use of the information to criminally investigate or prosecute any alcohol or drug abuse patient.[facility] HospitalIn the event this information is protected by the Federal Confidentiality of Alcohol and Drug Abuse Patient Records regulations: The Federal rules restrict any use of the information to criminally investigate or prosecute any alcohol or drug abuse patient.[facility] HospitalIn the event this information is protected by the Federal Confidentiality of Alcohol and Drug Abuse Patient Records regulations: The Federal rules restrict any use of the information to criminally investigate or prosecute any alcohol or drug abuse patient.[facility] HospitalIn the event this information is protected by the Federal Confidentiality of Alcohol and Drug Abuse Patient Records regulations: The Federal rules restrict any use of the information to criminally investigate or prosecute any alcohol or drug abuse patient.[facility] HospitalIn the event this information is protected by the Federal Confidentiality of Alcohol and Drug Abuse Patient Records regulations: The Federal rules restrict any use of the information to criminally investigate or prosecute any alcohol or drug abuse patient.[facility] HospitalIn the event this information is protected by the Federal Confidentiality of Alcohol and Drug Abuse Patient Records regulations: The Federal rules restrict any use of the information to criminally investigate or prosecute any alcohol or drug abuse patient.[facility] HospitalIn the event this information is protected by the Federal Confidentiality of Alcohol and Drug Abuse Patient Records regulations: The Federal rules restrict any use of the information to criminally investigate or prosecute any alcohol or drug abuse patient.[facility] HospitalIn the event this information is protected by the Federal Confidentiality of Alcohol and Drug Abuse Patient Records regulations: The Federal rules restrict any use of the information to criminally investigate or prosecute any alcohol or drug abuse patient.[facility] HospitalIn the event this information is protected by the Federal Confidentiality of Alcohol and Drug Abuse Patient Records regulations: The Federal rules restrict any use of the information to criminally investigate or prosecute any alcohol or drug abuse patient.[facility] HospitalIn the event this information is protected by the Federal Confidentiality of Alcohol and Drug Abuse Patient Records regulations: The Federal rules restrict any use of the information to criminally investigate or prosecute any alcohol or drug abuse patient.[facility] HospitalIn the event this information is protected by the Federal Confidentiality of Alcohol and Drug Abuse Patient Records regulations: The Federal rules restrict any use of the information to criminally investigate or prosecute any alcohol or drug abuse patient.[facility] HospitalIn the event this information is protected by the Federal Confidentiality of Alcohol and Drug Abuse Patient Records regulations: The Federal rules restrict any use of the information to criminally investigate or prosecute any alcohol or drug abuse patient.[facility] HospitalIn the event this information is protected by the Federal Confidentiality of Alcohol and Drug Abuse Patient Records regulations: The Federal rules restrict any use of the information to criminally investigate or prosecute any alcohol or drug abuse patient.[facility] HospitalIn the event this information is protected by the Federal Confidentiality of Alcohol and Drug Abuse Patient Records regulations: The Federal rules restrict any use of the information to criminally investigate or prosecute any alcohol or drug abuse patient.[facility] HospitalIn the event this information is protected by the Federal Confidentiality of Alcohol and Drug Abuse Patient Records regulations: The Federal rules restrict any use of the information to criminally investigate or prosecute any alcohol or drug abuse patient.[facility] HospitalIn the event this information is protected by the Federal Confidentiality of Alcohol and Drug Abuse Patient Records regulations: The Federal rules restrict any use of the information to criminally investigate or prosecute any alcohol or drug abuse patient.[facility] HospitalIn the event this information is protected by the Federal Confidentiality of Alcohol and Drug Abuse Patient Records regulations: The Federal rules restrict any use of the information to criminally investigate or prosecute any alcohol or drug abuse patient.[facility] HospitalIn the event this information is protected by the Federal Confidentiality of Alcohol and Drug Abuse Patient Records regulations: The Federal rules restrict any use of the information to criminally investigate or prosecute any alcohol or drug abuse patient.[facility] HospitalIn the event this information is protected by the Federal Confidentiality of Alcohol and Drug Abuse Patient Records regulations: The Federal rules restrict any use of the information to criminally investigate or prosecute any alcohol or drug abuse patient.[facility] HospitalIn the event this information is protected by the Federal Confidentiality of Alcohol and Drug Abuse Patient Records regulations: The Federal rules restrict any use of the information to criminally investigate or prosecute any alcohol or drug abuse patient.[facility] HospitalIn the event this information is protected by the Federal Confidentiality of Alcohol and Drug Abuse Patient Records regulations: The Federal rules restrict any use of the information to criminally investigate or prosecute any alcohol or drug abuse patient.[facility] HospitalIn the event this information is protected by the Federal Confidentiality of Alcohol and Drug Abuse Patient Records regulations: The Federal rules restrict any use of the information to criminally investigate or prosecute any alcohol or drug abuse patient.[facility] HospitalIn the event this information is protected by the Federal Confidentiality of Alcohol and Drug Abuse Patient Records regulations: The Federal rules restrict any use of the information to criminally investigate or prosecute any alcohol or drug abuse patient.[facility] HospitalIn the event this information is protected by the Federal Confidentiality of Alcohol and Drug Abuse Patient Records regulations: The Federal rules restrict any use of the information to criminally investigate or prosecute any alcohol or drug abuse patient.[facility] HospitalIn the event this information is protected by the Federal Confidentiality of Alcohol and Drug Abuse Patient Records regulations: The Federal rules restrict any use of the information to criminally investigate or prosecute any alcohol or drug abuse patient.[facility] HospitalIn the event this information is protected by the Federal Confidentiality of Alcohol and Drug Abuse Patient Records regulations: The Federal rules restrict any use of the information to criminally investigate or prosecute any alcohol or drug abuse patient.[facility] HospitalIn the event this information is protected by the Federal Confidentiality of Alcohol and Drug Abuse Patient Records regulations: The Federal rules restrict any use of the information to criminally investigate or prosecute any alcohol or drug abuse patient.[facility] HospitalIn the event this information is protected by the Federal Confidentiality of Alcohol and Drug Abuse Patient Records regulations: The Federal rules restrict any use of the information to criminally investigate or prosecute any alcohol or drug abuse patient.[facility] HospitalIn the event this information is protected by the Federal Confidentiality of Alcohol and Drug Abuse Patient Records regulations: The Federal rules restrict any use of the information to criminally investigate or prosecute any alcohol or drug abuse patient.[facility] HospitalIn the event this information is protected by the Federal Confidentiality of Alcohol and Drug Abuse Patient Records regulations: The Federal rules restrict any use of the information to criminally investigate or prosecute any alcohol or drug abuse patient.[facility] HospitalIn the event this information is protected by the Federal Confidentiality of Alcohol and Drug Abuse Patient Records regulations: The Federal rules restrict any use of the information to criminally investigate or prosecute any alcohol or drug abuse patient.[facility] HospitalIn the event this information is protected by the Federal Confidentiality of Alcohol and Drug Abuse Patient Records regulations: The Federal rules restrict any use of the information to criminally investigate or prosecute any alcohol or drug abuse patient.[facility] HospitalIn the event this information is protected by the Federal Confidentiality of Alcohol and Drug Abuse Patient Records regulations: The Federal rules restrict any use of the information to criminally investigate or prosecute any alcohol or drug abuse patient.[facility] HospitalIn the event this information is protected by the Federal Confidentiality of Alcohol and Drug Abuse Patient Records regulations: The Federal rules restrict any use of the information to criminally investigate or prosecute any alcohol or drug abuse patient.[facility] HospitalIn the event this information is protected by the Federal Confidentiality of Alcohol and Drug Abuse Patient Records regulations: The Federal rules restrict any use of the information to criminally investigate or prosecute any alcohol or drug abuse patient.[facility] HospitalIn the event this information is protected by the Federal Confidentiality of Alcohol and Drug Abuse Patient Records regulations: The Federal rules restrict any use of the information to criminally investigate or prosecute any alcohol or drug abuse patient.[facility] HospitalIn the event this information is protected by the Federal Confidentiality of Alcohol and Drug Abuse Patient Records regulations: The Federal rules restrict any use of the information to criminally investigate or prosecute any alcohol or drug abuse patient.[facility] HospitalIn the event this information is protected by the Federal Confidentiality of Alcohol and Drug Abuse Patient Records regulations: The Federal rules restrict any use of the information to criminally investigate or prosecute any alcohol or drug abuse patient.[facility] HospitalIn the event this information is protected by the Federal Confidentiality of Alcohol and Drug Abuse Patient Records regulations: The Federal rules restrict any use of the information to criminally investigate or prosecute any alcohol or drug abuse patient.[facility] HospitalIn the event this information is protected by the Federal Confidentiality of Alcohol and Drug Abuse Patient Records regulations: The Federal rules restrict any use of the information to criminally investigate or prosecute any alcohol or drug abuse patient.[facility] HospitalIn the event this information is protected by the Federal Confidentiality of Alcohol and Drug Abuse Patient Records regulations: The Federal rules restrict any use of the information to criminally investigate or prosecute any alcohol or drug abuse patient.[facility] HospitalIn the event this information is protected by the Federal Confidentiality of Alcohol and Drug Abuse Patient Records regulations: The Federal rules restrict any use of the information to criminally investigate or prosecute any alcohol or drug abuse patient.[facility] HospitalIn the event this information is protected by the Federal Confidentiality of Alcohol and Drug Abuse Patient Records regulations: The Federal rules restrict any use of the information to criminally investigate or prosecute any alcohol or drug abuse patient.[facility] HospitalIn the event this information is protected by the Federal Confidentiality of Alcohol and Drug Abuse Patient Records regulations: The Federal rules restrict any use of the information to criminally investigate or prosecute any alcohol or drug abuse patient.[facility] HospitalIn the event this information is protected by the Federal Confidentiality of Alcohol and Drug Abuse Patient Records regulations: The Federal rules restrict any use of the information to criminally investigate or prosecute any alcohol or drug abuse patient.[facility] HospitalIn the event this information is protected by the Federal Confidentiality of Alcohol and Drug Abuse Patient Records regulations: The Federal rules restrict any use of the information to criminally investigate or prosecute any alcohol or drug abuse patient.[facility] HospitalIn the event this information is protected by the Federal Confidentiality of Alcohol and Drug Abuse Patient Records regulations: The Federal rules restrict any use of the information to criminally investigate or prosecute any alcohol or drug abuse patient.[facility] HospitalIn the event this information is protected by the Federal Confidentiality of Alcohol and Drug Abuse Patient Records regulations: The Federal rules restrict any use of the information to criminally investigate or prosecute any alcohol or drug abuse patient.[facility] HospitalIn the event this information is protected by the Federal Confidentiality of Alcohol and Drug Abuse Patient Records regulations: The Federal rules restrict any use of the information to criminally investigate or prosecute any alcohol or drug abuse patient.[facility] HospitalIn the event this information is protected by the Federal Confidentiality of Alcohol and Drug Abuse Patient Records regulations: The Federal rules restrict any use of the information to criminally investigate or prosecute any alcohol or drug abuse patient.[facility] HospitalIn the event this information is protected by the Federal Confidentiality of Alcohol and Drug Abuse Patient Records regulations: The Federal rules restrict any use of the information to criminally investigate or prosecute any alcohol or drug abuse patient.[facility] HospitalIn the event this information is protected by the Federal Confidentiality of Alcohol and Drug Abuse Patient Records regulations: The Federal rules restrict any use of the information to criminally investigate or prosecute any alcohol or drug abuse patient.[facility] HospitalIn the event this information is protected by the Federal Confidentiality of Alcohol and Drug Abuse Patient Records regulations: The Federal rules restrict any use of the information to criminally investigate or prosecute any alcohol or drug abuse patient.[facility] HospitalIn the event this information is protected by the Federal Confidentiality of Alcohol and Drug Abuse Patient Records regulations: The Federal rules restrict any use of the information to criminally investigate or prosecute any alcohol or drug abuse patient.[facility] HospitalIn the event this information is protected by the Federal Confidentiality of Alcohol and Drug Abuse Patient Records regulations: The Federal rules restrict any use of the information to criminally investigate or prosecute any alcohol or drug abuse patient.[facility] HospitalIn the event this information is protected by the Federal Confidentiality of Alcohol and Drug Abuse Patient Records regulations: The Federal rules restrict any use of the information to criminally investigate or prosecute any alcohol or drug abuse patient.[facility] HospitalIn the event this information is protected by the Federal Confidentiality of Alcohol and Drug Abuse Patient Records regulations: The Federal rules restrict any use of the information to criminally investigate or prosecute any alcohol or drug abuse patient.[facility] HospitalIn the event this information is protected by the Federal Confidentiality of Alcohol and Drug Abuse Patient Records regulations: The Federal rules restrict any use of the information to criminally investigate or prosecute any alcohol or drug abuse patient.[facility] HospitalIn the event this information is protected by the Federal Confidentiality of Alcohol and Drug Abuse Patient Records regulations: The Federal rules restrict any use of the information to criminally investigate or prosecute any alcohol or drug abuse patient.[facility] HospitalIn the event this information is protected by the Federal Confidentiality of Alcohol and Drug Abuse Patient Records regulations: The Federal rules restrict any use of the information to criminally investigate or prosecute any alcohol or drug abuse patient.[facility] HospitalIn the event this information is protected by the Federal Confidentiality of Alcohol and Drug Abuse Patient Records regulations: The Federal rules restrict any use of the information to criminally investigate or prosecute any alcohol or drug abuse patient.[facility] HospitalIn the event this information is protected by the Federal Confidentiality of Alcohol and Drug Abuse Patient Records regulations: The Federal rules restrict any use of the information to criminally investigate or prosecute any alcohol or drug abuse patient.[facility] HospitalIn the event this information is protected by the Federal Confidentiality of Alcohol and Drug Abuse Patient Records regulations: The Federal rules restrict any use of the information to criminally investigate or prosecute any alcohol or drug abuse patient.[facility] HospitalIn the event this information is protected by the Federal Confidentiality of Alcohol and Drug Abuse Patient Records regulations: The Federal rules restrict any use of the information to criminally investigate or prosecute any alcohol or drug abuse patient.[facility] HospitalIn the event this information is protected by the Federal Confidentiality of Alcohol and Drug Abuse Patient Records regulations: The Federal rules restrict any use of the information to criminally investigate or prosecute any alcohol or drug abuse patient.[facility] HospitalIn the event this information is protected by the Federal Confidentiality of Alcohol and Drug Abuse Patient Records regulations: The Federal rules restrict any use of the information to criminally investigate or prosecute any alcohol or drug abuse patient.[facility] HospitalIn the event this information is protected by the Federal Confidentiality of Alcohol and Drug Abuse Patient Records regulations: The Federal rules restrict any use of the information to criminally investigate or prosecute any alcohol or drug abuse patient.[facility] HospitalIn the event this information is protected by the Federal Confidentiality of Alcohol and Drug Abuse Patient Records regulations: The Federal rules restrict any use of the information to criminally investigate or prosecute any alcohol or drug abuse patient.[facility] HospitalIn the event this information is protected by the Federal Confidentiality of Alcohol and Drug Abuse Patient Records regulations: The Federal rules restrict any use of the information to criminally investigate or prosecute any alcohol or drug abuse patient.[facility] HospitalIn the event this information is protected by the Federal Confidentiality of Alcohol and Drug Abuse Patient Records regulations: The Federal rules restrict any use of the information to criminally investigate or prosecute any alcohol or drug abuse patient.[facility] HospitalIn the event this information is protected by the Federal Confidentiality of Alcohol and Drug Abuse Patient Records regulations: The Federal rules restrict any use of the information to criminally investigate or prosecute any alcohol or drug abuse patient.[facility] HospitalIn the event this information is protected by the Federal Confidentiality of Alcohol and Drug Abuse Patient Records regulations: The Federal rules restrict any use of the information to criminally investigate or prosecute any alcohol or drug abuse patient.[facility] HospitalIn the event this information is protected by the Federal Confidentiality of Alcohol and Drug Abuse Patient Records regulations: The Federal rules restrict any use of the information to criminally investigate or prosecute any alcohol or drug abuse patient.[facility] HospitalIn the event this information is protected by the Federal Confidentiality of Alcohol and Drug Abuse Patient Records regulations: The Federal rules restrict any use of the information to criminally investigate or prosecute any alcohol or drug abuse patient.[facility] HospitalIn the event this information is protected by the Federal Confidentiality of Alcohol and Drug Abuse Patient Records regulations: The Federal rules restrict any use of the information to criminally investigate or prosecute any alcohol or drug abuse patient.[facility] HospitalIn the event this information is protected by the Federal Confidentiality of Alcohol and Drug Abuse Patient Records regulations: The Federal rules restrict any use of the information to criminally investigate or prosecute any alcohol or drug abuse patient.[facility] HospitalIn the event this information is protected by the Federal Confidentiality of Alcohol and Drug Abuse Patient Records regulations: The Federal rules restrict any use of the information to criminally investigate or prosecute any alcohol or drug abuse patient.[facility] HospitalIn the event this information is protected by the Federal Confidentiality of Alcohol and Drug Abuse Patient Records regulations: The Federal rules restrict any use of the information to criminally investigate or prosecute any alcohol or drug abuse patient.[facility] HospitalIn the event this information is protected by the Federal Confidentiality of Alcohol and Drug Abuse Patient Records regulations: The Federal rules restrict any use of the information to criminally investigate or prosecute any alcohol or drug abuse patient.[facility] HospitalIn the event this information is protected by the Federal Confidentiality of Alcohol and Drug Abuse Patient Records regulations: The Federal rules restrict any use of the information to criminally investigate or prosecute any alcohol or drug abuse patient.[facility] HospitalIn the event this information is protected by the Federal Confidentiality of Alcohol and Drug Abuse Patient Records regulations: The Federal rules restrict any use of the information to criminally investigate or prosecute any alcohol or drug abuse patient.[facility] HospitalIn the event this information is protected by the Federal Confidentiality of Alcohol and Drug Abuse Patient Records regulations: The Federal rules restrict any use of the information to criminally investigate or prosecute any alcohol or drug abuse patient.[facility] HospitalIn the event this information is protected by the Federal Confidentiality of Alcohol and Drug Abuse Patient Records regulations: The Federal rules restrict any use of the information to criminally investigate or prosecute any alcohol or drug abuse patient.[facility] HospitalIn the event this information is protected by the Federal Confidentiality of Alcohol and Drug Abuse Patient Records regulations: The Federal rules restrict any use of the information to criminally investigate or prosecute any alcohol or drug abuse patient.[facility] HospitalIn the event this information is protected by the Federal Confidentiality of Alcohol and Drug Abuse Patient Records regulations: The Federal rules restrict any use of the information to criminally investigate or prosecute any alcohol or drug abuse patient.[facility] HospitalIn the event this information is protected by the Federal Confidentiality of Alcohol and Drug Abuse Patient Records regulations: The Federal rules restrict any use of the information to criminally investigate or prosecute any alcohol or drug abuse patient.[facility] HospitalIn the event this information is protected by the Federal Confidentiality of Alcohol and Drug Abuse Patient Records regulations: The Federal rules restrict any use of the information to criminally investigate or prosecute any alcohol or drug abuse patient.[facility] HospitalIn the event this information is protected by the Federal Confidentiality of Alcohol and Drug Abuse Patient Records regulations: The Federal rules restrict any use of the information to criminally investigate or prosecute any alcohol or drug abuse patient.[facility] HospitalIn the event this information is protected by the Federal Confidentiality of Alcohol and Drug Abuse Patient Records regulations: The Federal rules restrict any use of the information to criminally investigate or prosecute any alcohol or drug abuse patient.[facility] HospitalIn the event this information is protected by the Federal Confidentiality of Alcohol and Drug Abuse Patient Records regulations: The Federal rules restrict any use of the information to criminally investigate or prosecute any alcohol or drug abuse patient.[facility] HospitalIn the event this information is protected by the Federal Confidentiality of Alcohol and Drug Abuse Patient Records regulations: The Federal rules restrict any use of the information to criminally investigate or prosecute any alcohol or drug abuse patient.[facility] HospitalIn the event this information is protected by the Federal Confidentiality of Alcohol and Drug Abuse Patient Records regulations: The Federal rules restrict any use of the information to criminally investigate or prosecute any alcohol or drug abuse patient.[facility] HospitalIn the event this information is protected by the Federal Confidentiality of Alcohol and Drug Abuse Patient Records regulations: The Federal rules restrict any use of the information to criminally investigate or prosecute any alcohol or drug abuse patient.[facility] HospitalIn the event this information is protected by the Federal Confidentiality of Alcohol and Drug Abuse Patient Records regulations: The Federal rules restrict any use of the information to criminally investigate or prosecute any alcohol or drug abuse patient.[facility] HospitalIn the event this information is protected by the Federal Confidentiality of Alcohol and Drug Abuse Patient Records regulations: The Federal rules restrict any use of the information to criminally investigate or prosecute any alcohol or drug abuse patient.[facility] HospitalIn the event this information is protected by the Federal Confidentiality of Alcohol and Drug Abuse Patient Records regulations: The Federal rules restrict any use of the information to criminally investigate or prosecute any alcohol or drug abuse patient.[facility] HospitalIn the event this information is protected by the Federal Confidentiality of Alcohol and Drug Abuse Patient Records regulations: The Federal rules restrict any use of the information to criminally investigate or prosecute any alcohol or drug abuse patient.[facility] HospitalIn the event this information is protected by the Federal Confidentiality of Alcohol and Drug Abuse Patient Records regulations: The Federal rules restrict any use of the information to criminally investigate or prosecute any alcohol or drug abuse patient.[facility] HospitalIn the event this information is protected by the Federal Confidentiality of Alcohol and Drug Abuse Patient Records regulations: The Federal rules restrict any use of the information to criminally investigate or prosecute any alcohol or drug abuse patient.[facility] HospitalIn the event this information is protected by the Federal Confidentiality of Alcohol and Drug Abuse Patient Records regulations: The Federal rules restrict any use of the information to criminally investigate or prosecute any alcohol or drug abuse patient.[facility] HospitalIn the event this information is protected by the Federal Confidentiality of Alcohol and Drug Abuse Patient Records regulations: The Federal rules restrict any use of the information to criminally investigate or prosecute any alcohol or drug abuse patient.[facility] HospitalIn the event this information is protected by the Federal Confidentiality of Alcohol and Drug Abuse Patient Records regulations: The Federal rules restrict any use of the information to criminally investigate or prosecute any alcohol or drug abuse patient.[facility] HospitalIn the event this information is protected by the Federal Confidentiality of Alcohol and Drug Abuse Patient Records regulations: The Federal rules restrict any use of the information to criminally investigate or prosecute any alcohol or drug abuse patient.[facility] HospitalIn the event this information is protected by the Federal Confidentiality of Alcohol and Drug Abuse Patient Records regulations: The Federal rules restrict any use of the information to criminally investigate or prosecute any alcohol or drug abuse patient.[facility] HospitalIn the event this information is protected by the Federal Confidentiality of Alcohol and Drug Abuse Patient Records regulations: The Federal rules restrict any use of the information to criminally investigate or prosecute any alcohol or drug abuse patient.[facility] HospitalIn the event this information is protected by the Federal Confidentiality of Alcohol and Drug Abuse Patient Records regulations: The Federal rules restrict any use of the information to criminally investigate or prosecute any alcohol or drug abuse patient.[facility] HospitalIn the event this information is protected by the Federal Confidentiality of Alcohol and Drug Abuse Patient Records regulations: The Federal rules restrict any use of the information to criminally investigate or prosecute any alcohol or drug abuse patient.[facility] HospitalIn the event this information is protected by the Federal Confidentiality of Alcohol and Drug Abuse Patient Records regulations: The Federal rules restrict any use of the information to criminally investigate or prosecute any alcohol or drug abuse patient.[facility] HospitalIn the event this information is protected by the Federal Confidentiality of Alcohol and Drug Abuse Patient Records regulations: The Federal rules restrict any use of the information to criminally investigate or prosecute any alcohol or drug abuse patient.[facility] HospitalIn the event this information is protected by the Federal Confidentiality of Alcohol and Drug Abuse Patient Records regulations: The Federal rules restrict any use of the information to criminally investigate or prosecute any alcohol or drug abuse patient.[facility] HospitalIn the event this information is protected by the Federal Confidentiality of Alcohol and Drug Abuse Patient Records regulations: The Federal rules restrict any use of the information to criminally investigate or prosecute any alcohol or drug abuse patient.[facility] HospitalIn the event this information is protected by the Federal Confidentiality of Alcohol and Drug Abuse Patient Records regulations: The Federal rules restrict any use of the information to criminally investigate or prosecute any alcohol or drug abuse patient.[facility] Reason for Visit (unrecogniz ed section and content) Reason Comments Requesting lab orders Reason Comments New Pharmacy-med rev Reason Comments orders for Structured DM Program Reason Comments Social Work Services Reason Comments Recheck Reason Comments Follow Up external hemorrhoids Reason Comments Medication Question Reason Comments Results Reason Onset Date Comments Refill Request 01/26/2022 Reason Onset Date Comments [facility] 02/08/2022 [place] care gap Reason Onset Date Comments Refill Request 03/06/2022 Reason Comments Missed Appointment Reason Comments New Patient Hemorrhoids Reason Onset Date Comments Refill Request 04/12/2022 Reason Onset Date Comments [facility] 05/07/2022 [place] Care Gaps Reason Comments Urinary Problem Frequency, urgency, odor x1 wk, BS 05/28/22 131. Reason Comments Refill Request Reason Onset Date Comments [facility] 06/12/2022 [place] Attribution Reason Comments Patient Question Reason Onset Date Comments Refill Request 10/16/2022 Reason Onset Date Comments [facility] 10/22/2022 Care Gaps Reason Comments Sore Throat Cough, ear pain x6 d ays Reason Comments Results COVID+ Reason Comments Follow Up Reason Onset Date Comments [facility] 12/07/2022 [place] care gaps Reason Comments Patient Request Reason Comments Results Reason Comments Urinary Problem Pt reported frequenc y , burning x 4 days. Reason Onset Date Comments Refill Request 02/20/2023 Reason Comments Colonoscopy Report Reason Comments F/U 3 Month Reason Comments Question Reason Comments results on blood work and US Reason Comments Medication Problem Reason Onset Date Comments Refill Request 05/01/2023 Reason Comments New Patient Specialty Diagnoses / Procedures Referred By Contac t Referred To Contact Hematology Diagnoses Iron deficiency anemia, unspecified iron deficiency anemia type Procedures CONSULT TO HEMATOLOGY OFFICE/OUTPATIENT NEW HIGH MDM 60-74 MINUTES Juan Locke L, DO [address] [place] [address] Referral ID Status Reason Start Date Expiration Date Visits Requested Visits Authorized [id number] Pending Review PCP Requested Referral 03/14/2023 03/13/2024 1 1 Reason Comments Benefits Investigation Reason Onset Date Comments Allied Health Visit 06/17/2023 Statin use r eview Reason Comments Radiology US Specialty Diagnoses / Procedures Referred By Contac t Referred To Contact US IMAGING Diagnoses Functional diarrhea Esophageal varices determined by endoscopy (HCC) Procedures US ABD RIGHT UPPER QUADRANT US ABDOMINAL REAL TIME W/IMAGE LIMITED Juan Locke, DO [address] [place] [address] [place] [address] Referral ID Status Reason Start Date Expiration Date V isits Requested Visits Authorized [id number] Closed Auto-Generate d Referral 03/05/2023 04/03/2024 1 1 Reason Comments Urinary Frequency burning and pain wit h urination x 1 week Reason Comments Sinus Problem sinus pressure, drai nage, cough x 1 week Reason Comments Established Patient Reason Comments AVS 08/21/23 Reason Onset Date Comments Medication Update 08/15/2023 Statin use rev iew Reason Comments Dexcom CGM Reason Comments Cough Dry cough, chest tig htness, fatigue(but awaiting IV iron) x weeks Reason Comments Requesting a referral to GI Reason Comments Non-Chemotherapy Treatment Specialty Diagnoses / Procedures Referred By Contac t Referred To Contact Diagnoses Rectal bleeding Iron deficiency anemia secondary to inadequate dietary iron intake Iron malabsorption Procedures IRON SUCROSE INJECTION PER 1 MG Clayton Novak, DO [address] [place] [address] [facility] [address] [place] [address] Referral ID Status Reason Start Date Expiration Date V isits Requested Visits Authorized [id number] Authorized 05/08/2023 01/20/2024 5 5 Reason Comments AVS 10/08/23 Specialty Diagnoses / [facility] Diagnoses Rectal bleeding Iron deficiency anemia secondary to inadequate dietary iron intake Iron malabsorption Procedures IRON SUCROSE INJECTION PER 1 MG Clayton Novak, DO [address] [place] [address] [facility] [address] [place] [address] Reason Onset Date Comments Refill Request 11/26/2023 Reason Onset Date Comments Allied Health Visit 12/17/2023 Medication A dherence Outreach Reason Onset Date Comments Refill Request 12/19/2023 Reason Comments Opened In Error Reason Comments F/U 3 Month Reason Comments [address] Specialty Diagnoses / Procedures Referred By Contac t Referred To Contact CT IMAGING Diagnoses Pleural effusion Exertional shortness of breath Procedures CT CHEST WO IVCON DIAGNOSTIC COMPUTED TOMOGRAPHY THORAX W/O CNTRST Juan Locke L, DO [address] [place] [address] [place] [address] Referral ID Status Reason Start Date Expiration Date V isits Requested Visits Authorized [id number] Closed Auto-Generate d Referral 01/01/2024 01/30/2025 1 1 Reason Comments Abdominal Pain Reason Comments fax Pulmonary referral to Dr Hubert Galvan Reason Onset Date Comments Refill Request 02/17/2024 Specialty Diagnoses / Procedures Referred By Contac t Referred To Contact HEMATOLOGY/ONCOLOGY Diagnoses Other iron deficiency anemias (D50.9) Iron deficiency anemia, unspecified iron deficiency anemia type Procedures IRON SUCROSE INJECTION PER 1 MG Beata Boone [address] [place] [address] [facility] [address] [place] [address] Referral ID Status Reason Start Date Expiration Date V isits Requested Visits Authorized [id number] Authorized 02/24/2024 05/24/2024 5 5 Reason Onset Date Comments Population Health Navigation Outreach 02/26/2024 [place] [facility] Reason Comments Patient Update Reason Onset Date Comments Transition Of Care 03/03/2024 TCM / OON DC 03/01/24 Reason Onset Date Comments Population Health Navigation Outreach 03/04/2024 [place] [facility] CURRENT ROSTER workbench - AW[facility], HCC gap closure - [place] [facility] Reason Comments disk request Reason Comments Follow Up Was in ER 02/26 for f luid in lungs and cirrhosis of liver, ER records scanned in chart. Following up with Gastro. Dry cough. Reason Comments Results Orders Reason Comments Appointment Reason Comments Medication Recommendations Reason Comments Hospital F/U Reason Onset Date Comments Refill Request 05/05/2024 Reason Comments Pain L side rib pain unde r breast x3 days Specialty Diagnoses / Procedures Referred By Contac t Referred To Contact Diagnoses Iron deficiency anemia secondary to inadequate dietary iron intake Iron malabsorption Rectal bleeding Procedures IRON SUCROSE INJECTION PER 1 MG Beata Boone [address] [place] [address] [facility] [address] [place] [address] Referral ID Status Reason Start Date Expiration Date V isits Requested Visits Authorized [id number] Authorized 04/27/2024 07/26/2024 13 13 Reason Comments Blood Pressure Check Abdominal Pain Intermittent RLQ sha rp pain x 3 weeks, pain worse when she coughs or touches that area. Reason Comments Radiology CT Specialty Diagnoses / Procedures Referred By Contac t Referred To Contact CT IMAGING Diagnoses Intra-abdominal and pelvic swelling, mass and lump, unspecified site Right lower quadrant abdominal pain Procedures CT ABD/PEL W IVCON CT ABD & PELVIS W/CONTRAST Nury Alexander, SATELLITE MANAGER.ASSOCIATE SOFTWARE APPLICATION ENGINEER [address] [place] [address] Ct Imaging [facility] Referral ID Status Reason Start Date Expiration Date V isits Requested Visits Authorized [id number] Closed Auto-Generate d Referral 05/12/2024 06/11/2025 2 2 Reason Comments Results Appointment Reason Comments Insurance Authorization Reason Comments Medicare Wellness Exam Reason Comments Consult Abdmonen pain Specialty Diagnoses / Procedures Referred By Contac t Referred To Contact General Surgery Diagnoses Intra-abdominal and pelvic swelling, mass and lump, unspecified site Right lower quadrant abdominal pain Procedures CONSULT TO GENERAL SURGERY OFFICE/OUTPATIENT NEW HIGH MDM 60 MINUTES Nury Alexander, SATELLITE MANAGER.ASSOCIATE SOFTWARE APPLICATION ENGINEER [address] [place] [address] Referral ID Status Reason Start Date Expiration Date V isits Requested Visits Authorized [id number] Closed PCP Requested Referral 05/12/2024 05/12/2025 1 1 Reason Comments Medication Follow-up Reason Comments Radiology XR Reason Onset Date Comments Refill Request 06/29/2024 Reason Comments Med Change Request Reason Comments New Patient Right Lower Quadrant mass Reason Comments 6 Month Exam Reason Comments New Patient Pulmonary nodules lung nodules Specialty Diagnoses / Procedures Referred By Contac t Referred To Contact CT IMAGING Diagnoses Lung nodules Procedures CT CHEST W IVCON DIAGNOSTIC COMPUTED TOMOGRAPHY THORAX W/CONTRAST Mery Hernandez MD [address] [facility] [place] [address] [place] [address] Referral ID Status Reason Start Date Expiration Date V isits Requested Visits Authorized [id number] Closed Auto-Generate d Referral 08/01/2024 07/31/2025 1 1 Reason Comments Nurse Triage Call Reason Comments Dizziness Positional changes/ BP Reason Comments New Patient Hernia Reason Comments Follow Up Tests Results Follow up CT Sca n Specialty Diagnoses / Procedures Referred By Contac t Referred To Contact Diagnoses Iron deficiency anemia due to chronic blood loss Procedures IRON SUCROSE INJECTION PER 1 MG Beata Boone [address] [facility] [place] [address] [facility] [address] [place] [address] Referral ID Status Reason Start Date Expiration Date V isits Requested Visits Authorized [id number] Authorized 08/14/2024 11/12/2024 5 5 Reason Comments fall/medication question Reason Comments arm fracture Reason Comments Request Outside Medical Records Reason Comments arm fracture follow up Reason Comments Appointment Patient called marlene cid to cancel her treatment today at 10am Reason Onset Date Comments Refill Request 09/28/2024 Referral ID Status Reason Start Date Expiration Date V isits Requested Visits Authorized [id number] Authorized 08/14/2024 12/17/2024 6 6 Reason Comments Assessment Patient Education Specialty Diagnoses / Procedures Referred By Contac t Referred To Contact Nutrition Diagnoses Cirrhosis, nonalcoholic (HCC) Procedures CONSULT TO NUTRITION THERAPY MEDICAL NUTRITION ASSMT&IVNTJ INDIV EACH 15 OR Juan Locke L, DO [address] [place] [address] Phone: tel: fax: Referral ID Status Reason Start Date Expiration Date Visits Requested Visits Authorized [id number] Authorized PCP Requested Referral 07/08/2025 1 4 Specialty Diagnoses / Procedures Referred By Contac t Referred To Contact Diagnoses Iron deficiency anemia due to chronic blood loss Procedures IRON SUCROSE INJECTION PER 1 MG Beata Boone [address] [place] [address] Phone: tel: fax: Hematology/Oncology [address] [place] [address] Phone: tel: fax: Referral ID Status Reason Start Date Expiration Date V isits Requested Visits Authorized [id number] Authorized 08/14/2024 02/03/2025 11 11 Reason Comments ER F/U anemia, sob, er note s in scanned docs Reason Comments F/U 3 Month Reason Comments Medication Request Reason Comments Follow Up 3 month check up Reason Onset Date Comments Refill Request 12/28/2024 Reason Comments Results, Lab Orders Refill Request Reason Comments Back Pain Lower back and R hip x 1 week continuous Specialty Diagnoses / Procedures Referred By Contac t Referred To Contact Diagnoses Iron deficiency anemia secondary to inadequate dietary iron intake Iron malabsorption (HCC) Rectal bleeding Procedures IRON SUCROSE INJECTION PER 1 MG Beata Boone [address] [facility] [place] [address] Phone: tel: fax: Hematology/Oncology [facility] [place] [address] Phone: tel: fax: Referral ID Status Reason Start Date Expiration Date V isits Requested Visits Authorized [id number] Authorized 03/16/2025 06/14/2025 1 5 Reason Onset Date Comments Refill Request 03/25/2025 Reason Onset Date Comments Refill Request 03/26/2025 Reason Comments Patient Question Provider was suppose d to write down a supplement for patients bladder. But neglected to do so. Please contact patient with name of supplement Reason Comments ER F/U Reason Comments Established Patient Recheck Abdominal Wa ll hernia Reason Comments UTI s/s Reason Comments Urinary Problem Burning with urinati on, pressure x 1 week Reason Onset Date Comments Results 05/20/2025 Care Teams (unrecognized sec tion and content) Registration Representative Relationship Specialty Start Date End Date Juan Locke, DO [address] [place] [address] PCP - General Family Practice 08/19/15 Registration Representative Relationship Specialty Start Date End Date Juan Locke, DO [address] [place] [address] PCP - General Family Practice 08/19/15 Registration Representative Relationship Specialty Start Date End Date Juan Locke, DO [address] [place] [address] PCP - General Family Practice 08/19/15 Registration Representative Relationship Specialty Start Date End Date Juan Locke, DO [address] [place] [address] PCP - General Family Practice 08/19/15 Registration Representative Relationship Specialty Start Date End Date Juan Locke, DO [address] [place] [address] PCP - General Family Practice 08/19/15 Registration Representative Relationship Specialty Start Date End Date Juan Locke, DO [address] [place] [address] PCP - General Family Practice 08/19/15 Registration Representative Relationship Specialty Start Date End Date Juan Locke, DO [address] [place] [address] PCP - General Family Practice 08/19/15 Registration Representative Relationship Specialty Start Date End Date Juan Locke, DO [address] [place] [address] PCP - General Family Practice 08/19/15 Registration Representative Relationship Specialty Start Date End Date Juan Locke, DO [address] [place] [address] PCP - General Family Practice 08/19/15 Registration Representative Relationship Specialty Start Date End Date Juan Locke, DO [address] [place] [address] PCP - General Family Practice 08/19/15 Registration Representative Relationship Specialty Start Date End Date Juan Locke, DO [address] [place] [address] PCP - General Family Practice 08/19/15 [facility] [address] [place] [address] Pharmacist Pharmacy 02/19/22 Registration Representative Relationship Specialty Start Date End Date Juan Locke, DO [address] [place] [address] PCP - General Family Practice 08/19/15 [facility] [address] [place] [address] Pharmacist Pharmacy 02/19/22 Registration Representative Relationship Specialty Start Date End Date Juan Locke, DO [address] [place] [address] PCP - General Family Practice 08/19/15 [facility] [address] [place] [address] Pharmacist Pharmacy 02/19/22 Registration Representative Relationship Specialty Start Date End Date Juan Locke, DO [address] [place] [address] PCP - General Family Practice 08/19/15 [facility] [address] [place] [address] Pharmacist Pharmacy 02/19/22 Registration Representative Relationship Specialty Start Date End Date Juan Locke, DO [address] [place] [address] PCP - General Family Practice 08/19/15 [facility] [address] [place] [address] Pharmacist Pharmacy 02/19/22 Registration Representative Relationship Specialty Start Date End Date Juan Locke, DO [address] [place] [address] PCP - General Family Practice 08/19/15 [facility] [address] [place] [address] Pharmacist Pharmacy 02/19/22 Registration Representative Relationship Specialty Start Date End Date Juan Locke, DO [address] [place] [address] PCP - General Family Medicine 08/19/15 [facility] [address] [place] [address] Pharmacist Pharmacy 02/19/22 Registration Representative Relationship Specialty Start Date End Date Juan Locke, DO [address] [place] [address] PCP - General Family Medicine 08/19/15 [facility] [address] [place] [address] Pharmacist Pharmacy 02/19/22 Registration Representative Relationship Specialty Start Date End Date Juan Locke, DO [address] [place] [address] PCP - General Family Medicine 08/19/15 [facility] [address] [place] [address] Pharmacist Pharmacy 02/19/22 Registration Representative Relationship Specialty Start Date End Date Juan Locke, DO [address] [place] [address] PCP - General Family Medicine 08/19/[address] [facility] [address] [place] [address] Pharmacist Pharmacy 02/19/22 Registration Representative Relationship Specialty Start Date End Date Juan Locke, DO [address] [place] [address] PCP - General Family Medicine 08/19/[address] [facility] [address] [place] [address] Pharmacist Pharmacy 02/19/22 Registration Representative Relationship Specialty Start Date End Date Juan Locke, DO [address] [place] [address] PCP - General Family Medicine 08/19/15 [facility] [address] [place] [address] Pharmacist Pharmacy 02/19/22 Registration Representative Relationship Specialty Start Date End Date Juan Locke, DO [address] [place] [address] PCP - General Family Medicine 08/19/[address] [facility], [facility] [address] [place] [address] Pharmacist Pharmacy 02/19/22 Registration Representative Relationship Specialty Start Date End Date Juan Locke, DO [address] [place] [address] PCP - General Family Medicine 08/19/15 AlexiRhona caldera, [facility] [address] [place] [address] Pharmacist Pharmacy 02/19/22 Registration Representative Relationship Specialty Start Date End Date Juan Locke, DO [address] [place] [address] PCP - General Family Medicine 08/19/15 AlexiRhona caldera, [facility] [address] [place] [address] Pharmacist Pharmacy 02/19/22 Registration Representative Relationship Specialty Start Date End Date Juan Locke DO [address] [place] [address] PCP - General Family Medicine 08/19/15 AlexiRhona caldera, [facility] [address] [place] [address] Pharmacist Pharmacy 02/19/22 Registration Representative Relationship Specialty Start Date End Date Juan Locke DO [address] [place] [address] PCP - General Family Medicine 08/19/15 AlexiRhona caldera, [facility] [address] [place] [address] Pharmacist Pharmacy 02/19/22 Registration Representative Relationship Specialty Start Date End Date Juan Locke DO [address] [place] [address] PCP - General Family Medicine 08/19/15 AlexiRhona caldera, [facility] [address] [place] [address] Pharmacist Pharmacy 02/19/22 Registration Representative Relationship Specialty Start Date End Date Juan Locke DO [address] [place] [address] PCP - General Family Medicine 08/19/15 AlexiRhona caldera, [facility] [address] [place] [address] Pharmacist Pharmacy 02/19/22 Registration Representative Relationship Specialty Start Date End Date Juan Locke, [address] [place] [address] PCP - General Family Medicine 08/19/15 [facility] [address] [place] [address] Pharmacist Pharmacy 02/19/22 Registration Representative Relationship Specialty Start Date End Date Juan Locke, [address] [place] [address] PCP - General Family Medicine 08/19/15 [facility] [address] [place] [address] Pharmacist Pharmacy 02/19/22 Registration Representative Relationship Specialty Start Date End Date Juan Locke DO [address] [place] [address] PCP - General Family Medicine 08/19/15 Rhona Aiken, [facility] [address] [place] [address] Pharmacist Pharmacy 02/19/22 Registration Representative Relationship Specialty Start Date End Date Juan Locke, [address] [place] [address] PCP - General Family Medicine 08/19/15 Rhona Aiken, [facility] [address] [place] [address] Pharmacist Pharmacy 02/19/22 Registration Representative Relationship Specialty Start Date End Date Juan Locke DO [address] [place] [address] PCP - General Family Medicine 08/19/[address] [facility] [address] [place] [address] Pharmacist Pharmacy 02/19/22 Registration Representative Relationship Specialty Start Date End Date Juan Locke DO [address] [place] [address] PCP - General Family Medicine 08/19/15 [facility] [address] [facility] [address] Pharmacist Pharmacy 02/19/22 Team Status: Active Member Role Status Dates Dr. Juan Locke DO Family Provider Active Dr. Juan Locke DO Primary Care Provider Active Team Status: Inactive Member Role Status Dates Dr. Juan Locke , DO Primary Care Provider Active Dr. Keyonna Cartwright MD Attending Provider, Carmencita metzger Active Registration Representative Relationship Specialty Start Date End Date Juan Locke DO [address] [facility] [place] [address] PCP - General Family Medicine 08/19/15 [facility] [address] [place] [address] Pharmacist Pharmacy 02/19/22 Registration Representative Relationship Specialty Start Date End Date Juan Locke DO [address] [place] [address] PCP - General Family Medicine 08/19/15 [facility] [address] [place] [address] Pharmacist Pharmacy 02/19/22 Registration Representative Relationship Specialty Start Date End Date Juan Locke DO [address] [facility] [place] [address] PCP - General Family Medicine 08/19/15 AlexiRhona caldera, [facility] [address] [place] [address] Pharmacist Pharmacy 02/19/22 Registration Representative Relationship Specialty Start Date End Date Juan Locke, [address] [place] [address] PCP - General Family Medicine 08/19/15 AlexiRhona caldera, [facility] [address] [place] [address] Pharmacist Pharmacy 02/19/22 Registration Representative Relationship Specialty Start Date End Date Juan Locke DO [address] [place] [address] PCP - General Family Medicine 08/19/15 AlexiRhona caldera, [facility] [address] [place] [address] Pharmacist Pharmacy 02/19/22 Registration Representative Relationship Specialty Start Date End Date Juan Locke DO [address] [place] [address] PCP - General Family Medicine 08/19/15 AlexiRhona caldera, [facility] [address] [place] [address] Pharmacist Pharmacy 02/19/22 Registration Representative Relationship Specialty Start Date End Date Juan Locke, [address] [place] [address] PCP - General Family Medicine 08/19/15 AlexiRhona caldera, [facility] [address] [place] [address] Pharmacist Pharmacy 02/19/22 Registration Representative Relationship Specialty Start Date End Date Juan Locke, [address] [place] [address] PCP - General Family Medicine 08/19/15 [facility] [address] [place] [address] Pharmacist Pharmacy 02/19/22 Registration Representative Relationship Specialty Start Date End Date Juan Locke DO [address] [place] [address] PCP - General Family Medicine 08/19/15 [facility] [address] [place] [address] Pharmacist Pharmacy 02/19/22 Registration Representative Relationship Specialty Start Date End Date Juan Locke, [address] [place] [address] PCP - General Family Medicine 08/19/15 [facility] [address] [place] [address] Pharmacist Pharmacy 02/19/22 Registration Representative Relationship Specialty Start Date End Date Juan Locke, [address] [place] [address] PCP - General Family Medicine 08/19/15 [facility] [address] [place] [address] Pharmacist Pharmacy 02/19/22 Registration Representative Relationship Specialty Start Date End Date Juan Locke DO [address] [place] [address] PCP - General Family Medicine 08/19/15 [facility] [address] [place] [address] Pharmacist Pharmacy 02/19/22 Registration Representative Relationship Specialty Start Date End Date Juan Locke DO [address] [place] [address] PCP - General Family Medicine 08/19/15 [facility] [address] [place] [address] Pharmacist Pharmacy 02/19/22 Registration Representative Relationship Specialty Start Date End Date Juan Locke DO [address] [place] [address] PCP - General Family Medicine 08/19/15 [facility] [address] [place] [address] Pharmacist Pharmacy 02/19/22 Registration Representative Relationship Specialty Start Date End Date Juan Locke DO [address] [place] [address] PCP - General Family Medicine 08/19/15 Registration Representative Relationship Specialty Start Date End Date Juan Locke DO [address] [place] [address] PCP - General Family Medicine 08/19/15 Registration Representative Relationship Specialty Start Date End Date Juan Locke DO [address] [place] [address] PCP - General Family Medicine 08/19/15 Registration Representative Relationship Specialty Start Date End Date Juan Locke DO [address] [place] [address] PCP - General Family Medicine 08/19/15 Registration Representative Relationship Specialty Start Date End Date Juan Locke DO [address] [place] [address] PCP - General Family Medicine 08/19/15 Registration Representative Relationship Specialty Start Date End Date Juan Locke DO [address] [place] [address] PCP - General Family Medicine 08/19/15 Registration Representative Relationship Specialty Start Date End Date Juan Locke DO [address] [place] [address] PCP - General Family Medicine 08/19/15 Registration Representative Relationship Specialty Start Date End Date Juan Locke DO [address] [place] [address] PCP - General Family Medicine 08/19/15 Registration Representative Relationship Specialty Start Date End Date Juan Locke DO [address] [place] [address] PCP - General Family Medicine 08/19/15 Registration Representative Relationship Specialty Start Date End Date Juan Locke, [address] [place] [address] PCP - General Family Medicine 08/19/15 Registration Representative Relationship Specialty Start Date End Date Juan Locke DO [address] [place] [address] PCP - General Family Medicine 08/19/15 Registration Representative Relationship Specialty Start Date End Date Juan Locke DO [address] [place] [address] PCP - General Family Medicine 08/19/15 Registration Representative Relationship Specialty Start Date End Date Juan Locke DO [address] [place] [address] PCP - General Family Medicine 08/19/15 Registration Representative Relationship Specialty Start Date End Date Juan Locke, DO [address] [place] [address] PCP - General Family Medicine 08/19/15 Registration Representative Relationship Specialty Start Date End Date Juan Locke, DO [address] [place] [address] PCP - General Family Medicine 08/19/15 Laura Zapien, MJ [address] [place] [address] Primary Care Rn Cardiac Rehab 03/03/24 Registration Representative Relationship Specialty Start Date End Date Juan Locke, [address] [place] [address] PCP - General Family Medicine 08/19/15 Laura Zapien, MJ [address] [place] [address] Primary Care Rn Cardiac Rehab 03/03/24 Registration Representative Relationship Specialty Start Date End Date Juan Locke, DO [address] [place] [address] PCP - General Family Medicine 08/19/15 Laura Zapien, MJ [address] [place] [address] Primary Care Rn Cardiac Rehab 03/03/24 Registration Representative Relationship Specialty Start Date End Date Juan Locke, DO [address] [place] [address] PCP - General Family Medicine 08/19/15 Laura Zapien, RN [address] [place] [address] Primary Care Rn Cardiac Rehab 03/03/24 Registration Representative Relationship Specialty Start Date End Date Juan Locke, [address] [place] [address] PCP - General Family Medicine 08/19/15 Laura Zapien, MJ [address] [place] [address] Primary Care Rn Cardiac Rehab 03/03/24 Registration Representative Relationship Specialty Start Date End Date Juan Locke, [address] [place] [address] PCP - General Family Medicine 08/19/15 Laura Zapien, MJ [address] [place] [address] Primary Care Rn Cardiac Rehab 03/03/24 Registration Representative Relationship Specialty Start Date End Date Juan Locke DO [address] [place] [address] PCP - General Family Medicine 08/19/15 Laura Zapien, MJ [address] [place] [address] Primary Care Rn Cardiac Rehab 03/03/24 Registration Representative Relationship Specialty Start Date End Date Juan Locke, [address] [place] [address] PCP - General Family Medicine 08/19/15 Registration Representative Relationship Specialty Start Date End Date Juan Locke, [address] [place] [address] PCP - General Family Medicine 08/19/15 Registration Representative Relationship Specialty Start Date End Date Juan Locke DO [address] [place] [address] PCP - General Family Medicine 08/19/15 Registration Representative Relationship Specialty Start Date End Date Juan Locke, [address] [place] [address] PCP - General Family Medicine 08/19/15 Laura Zapien RN [address] [place] [address] Primary Care Rn Cardiac Rehab 03/03/24 03/30/24 Registration Representative Relationship Specialty Start Date End Date Juan Locke DO [address] [place] [address] PCP - General Family Medicine 08/19/15 Registration Representative Relationship Specialty Start Date End Date Juan Locke DO [address] [place] [address] PCP - General Family Medicine 08/19/15 Registration Representative Relationship Specialty Start Date End Date Juan Locke DO [address] [place] [address] PCP - General Family Medicine 08/19/15 Registration Representative Relationship Specialty Start Date End Date Juan Locke DO [address] [place] [address] PCP - General Family Medicine 08/19/15 Registration Representative Relationship Specialty Start Date End Date Juan Locke DO [address] [place] [address] PCP - General Family Medicine 08/19/15 Registration Representative Relationship Specialty Start Date End Date Juan Locke DO [address] [place] [address] PCP - General Family Medicine 08/19/15 Registration Representative Relationship Specialty Start Date End Date Juan Locke DO [address] [place] [address] PCP - General Family Medicine 08/19/15 Registration Representative Relationship Specialty Start Date End Date Juan Locke DO [address] [facility] [place] [address] PCP - General Family Medicine 08/19/15 Registration Representative Relationship Specialty Start Date End Date Juan Locke DO [address] [place] [address] PCP - General Family Medicine 08/19/15 Registration Representative Relationship Specialty Start Date End Date Juan Locke DO [address] [facility] [place] [address] PCP - General Family Medicine 08/19/15 Registration Representative Relationship Specialty Start Date End Date Juan Locke DO [address] [facility] [place] [address] PCP - General Family Medicine 08/19/15 Registration Representative Relationship Specialty Start Date End Date Juan Locke DO [address] [place] [address] PCP - General Family Medicine 08/19/15 Registration Representative Relationship Specialty Start Date End Date Juan Locke DO [address] [place] [address] PCP - General Family Medicine 08/19/15 Ronald Zimmer DO [address] [place] [address] Gastroenterology 06/18/24 Glenn Glez [address] [place] [address] Internal Medicine 06/18/24 Registration Representative Relationship Specialty Start Date End Date Juan Locke DO [address] [place] [address] PCP - General Family Medicine 08/19/15 Registration Representative Relationship Specialty Start Date End Date Juan Locke DO [address] [place] [address] PCP - General Family Medicine 08/19/15 Ronald Zimmer DO [address] [place] [address] Gastroenterology 06/18/24 Glenn Glez [address] [place] [address] Internal Medicine 06/18/24 Registration Representative Relationship Specialty Start Date End Date Juan Locke DO [address] [place] [address] PCP - General Family Medicine 08/19/15 Ronald Zimmer DO [address] [place] [address] Gastroenterology 06/18/24 Glenn Glez [address] [place] [address] Internal Medicine 06/18/24 Registration Representative Relationship Specialty Start Date End Date Juan Locke DO [address] [place] [address] PCP - General Family Medicine 08/19/15 Ronald Zimmer DO [address] [place] [address] Gastroenterology 06/18/24 Glenn Glez [address] [place] [address] Internal Medicine 06/18/24 Registration Representative Relationship Specialty Start Date End Date Juan Locke DO [address] [place] [address] PCP - General Family Medicine 08/19/15 Ronald Zimmer DO [address] [place] [address] Gastroenterology 06/18/24 Glenn Glez [address] [place] [address] Internal Medicine 06/18/24 Registration Representative Relationship Specialty Start Date End Date Juan Locke DO [address] [place] [address] PCP - General Family Medicine 08/19/15 Ronald Zimmer DO [address] [place] [address] Gastroenterology 06/18/24 Skip Glezsh [address] [place] [address] Internal Medicine 06/18/24 Registration Representative Relationship Specialty Start Date End Date Juan Locke, [address] [place] [address] PCP - General Family Medicine 08/19/15 Ronald Zimmer DO [address] [place] [address] Gastroenterology 06/18/24 Glenn Glez [address] [place] [address] Internal Medicine 06/18/24 Registration Representative Relationship Specialty Start Date End Date Juan Locke, [address] [facility] [place] [address] PCP - General Family Medicine 08/19/15 Ronald Zimmer DO [address] [place] [address] Gastroenterology 06/18/24 Mikala Glezkash [address] [place] [address] Internal Medicine 06/18/24 Registration Representative Relationship Specialty Start Date End Date Juan Locke, [address] [facility] [place] [address] PCP - General Family Medicine 08/19/15 Ronald Zimmer DO [address] [place] [address] Gastroenterology 06/18/24 Glenn Glez [address] [place] [address] Internal Medicine 06/18/24 Registration Representative Relationship Specialty Start Date End Date Juan Locke DO [address] [place] [address] PCP - General Family Medicine 08/19/15 Ronald Zimmer DO [address] [place] [address] Gastroenterology 06/18/24 Glenn Glez [address] [place] [address] Internal Medicine 06/18/24 Registration Representative Relationship Specialty Start Date End Date Juan Locke DO [address] [place] [address] PCP - General Family Medicine 08/19/15 Ronald Zimmer DO [address] [place] [address] Gastroenterology 06/18/24 Glenn Glez [address] [place] [address] Internal Medicine 06/18/24 Registration Representative Relationship Specialty Start Date End Date Juan Locke DO [address] [place] [address] PCP - General Family Medicine 08/19/15 Ronald Zimmer DO [address] [place] [address] Gastroenterology 06/18/24 Glenn Glez [address] [place] [address] Internal Medicine 06/18/24 Registration Representative Relationship Specialty Start Date End Date Juan Locke, [address] [place] [address] PCP - General Family Medicine 08/19/15 Ronald Zimmer DO [address] [place] [address] Gastroenterology 06/18/24 Glenn Glez [address] [place] [address] Internal Medicine 06/18/24 Registration Representative Relationship Specialty Start Date End Date Juan Locke DO [address] [place] [address] PCP - General Family Medicine 08/19/15 Ronald Zimmer DO [address] [place] [address] Gastroenterology 06/18/24 Glenn Glez [address] [place] [address] Internal Medicine 06/18/24 Registration Representative Relationship Specialty Start Date End Date Juan Locke DO [address] [place] [address] PCP - General Family Medicine 08/19/15 Ronald Zimmer DO [address] [place] [address] Gastroenterology 06/18/24 Glenn Glez [address] [place] [address] Internal Medicine 06/18/24 Kavitha Hayes APRN.ASSOCIATE SOFTWARE APPLICATION ENGINEER [address] [place] [address] [facility] 08/23/24 Nury Alexander APRN.ASSOCIATE SOFTWARE APPLICATION ENGINEER [address] [facility] [place] [address] [facility] 08/23/24 Registration Representative Relationship Specialty Start Date End Date Juan Locke DO [address] [place] [address] PCP - General Family Medicine 08/19/15 Ronald Zimmer DO [address] [place] [address] Gastroenterology 06/18/24 Glenn Glez [address] [place] [address] Internal Medicine 06/18/24 Kavitha Hayes, GREGORY.ASSOCIATE SOFTWARE APPLICATION ENGINEER [address] [place] [address] [facility] 08/23/24 Nury Alexander APRN.ASSOCIATE SOFTWARE APPLICATION ENGINEER [address] [place] [address] Gallery Or Museum Attendant [facility] 08/23/24 Registration Representative Relationship Specialty Start Date End Date Juan Locke DO [address] [place] [address] PCP - General Family Medicine 08/19/15 Ronald Zimmer DO [address] [place] [address] Gastroenterology 06/18/24 Glenn Glez [address] [place] [address] Internal Medicine 06/18/24 Kavitha Hayes, SATELLITE MANAGER.ASSOCIATE SOFTWARE APPLICATION ENGINEER [address] [place] [address] Gallery Or Museum Attendant [facility] 08/23/24 Nury Alexander, SATELLITE MANAGER.ASSOCIATE SOFTWARE APPLICATION ENGINEER [address] [place] [address] [employer] Museum Attendant [facility] 08/23/24 Registration Representative Relationship Specialty Start Date End Date Juan Locke DO [address] [place] [address] PCP - General Family Medicine 08/19/15 Ronald Zimmer DO [address] [place] [address] Gastroenterology 06/18/24 Glenn Glez [address] [place] [address] Internal Medicine 06/18/24 Kavitha Hayes, SATELLITE MANAGER.ASSOCIATE SOFTWARE APPLICATION ENGINEER [address] [place] [address] [facility] 08/23/24 [facility] Center[facility], SATELLITE MANAGER.ASSOCIATE SOFTWARE APPLICATION ENGINEER [address] [facility] [place] [address] [facility] 08/23/24 Registration Representative Relationship Specialty Start Date End Date Juan Locke DO [address] [place] [address] PCP - General Family Medicine 08/19/15 Ronald Zimmer DO [address] [place] [address] Gastroenterology 06/18/24 Glenn Glez [address] [place] [address] Internal Medicine 06/18/24 Kavitha Hayes, SATELLITE MANAGER.ASSOCIATE SOFTWARE APPLICATION ENGINEER [address] [place] [address] [facility] 08/23/24 [facility] CenterNury, SATELLITE MANAGER.ASSOCIATE SOFTWARE APPLICATION ENGINEER [address] [place] [address] [facility] 08/23/24 Registration Representative Relationship Specialty Start Date End Date Juan Locke DO [address] [place] [address] PCP - General Family Medicine 08/19/15 Ronald Zimmer DO [address] [place] [address] Gastroenterology 06/18/24 Glenn Glez [address] [place] [address] Internal Medicine 06/18/24 Kavitha Hayes, SATELLITE MANAGER.ASSOCIATE SOFTWARE APPLICATION ENGINEER [address] [facility] [place] [address] [facility] Family Medicine 08/23/24 Nury Alexander APRN.ASSOCIATE SOFTWARE APPLICATION ENGINEER [address] [place] [address] [facility] Family Medicine 08/23/24 Registration Representative Relationship Specialty Start Date End Date Juan Locke DO [address] [place] [address] PCP - General Family Medicine 08/19/15 Ronald Zimmer DO [address] [place] [address] Gastroenterology 06/18/24 Glenn Glez [address] [place] [address] Internal Medicine 06/18/24 Kavitha Hayes, GREGORY.ASSOCIATE SOFTWARE APPLICATION ENGINEER [address] [place] [address] [facility] Family Medicine 08/23/24 Nury Alexander, SATELLITE MANAGER.ASSOCIATE SOFTWARE APPLICATION ENGINEER [address] [place] [address] Gallery Or Museum Attendant [facility] 08/23/24 Registration Representative Relationship Specialty Start Date End Date Juan Locke, [address] [place] [address] PCP - General Family Medicine 08/19/15 Ronald Zimmer DO [address] [place] [address] Gastroenterology 06/18/24 Glenn Glez [address] [place] [address] Internal Medicine 06/18/24 Kavitha Hayes, SATELLITE MANAGER.ASSOCIATE SOFTWARE APPLICATION ENGINEER [address] [place] [address] Gallery Or Museum Attendant [facility] Medicine 08/23/24 Nury Alexander, SATELLITE MANAGER.ASSOCIATE SOFTWARE APPLICATION ENGINEER [address] [place] [address] [facility] 08/23/24 Registration Representative Relationship Specialty Start Date End Date Juan Locke DO [address] [place] [address] PCP - General Family Medicine 08/19/15 Ronald Zimmer DO [address] [place] [address] Gastroenterology 06/18/24 Glenn Glez [address] [place] [address] Internal Medicine 06/18/24 Kavitha Hayes, SATELLITE MANAGER.ASSOCIATE SOFTWARE APPLICATION ENGINEER [address] [facility] [place] [address] [facility] Family Medicine 08/23/24 Nury Alexander, SATELLITE MANAGER.ASSOCIATE SOFTWARE APPLICATION ENGINEER [address] [place] [address] [facility] Family Medicine 08/23/24 Registration Representative Relationship Specialty Start Date End Date Juan Locke DO [address] [place] [address] PCP - General Family Medicine 08/19/15 Ronald Zimmer DO [address] [place] [address] Gastroenterology 06/18/24 Glenn Glez [address] [place] [address] Internal Medicine 06/18/24 Kavitha Hayes, SATELLITE MANAGER.ASSOCIATE SOFTWARE APPLICATION ENGINEER [address] [place] [address] [facility] Att[facility] Family Medicine 08/23/24 BenjaminNury, SATELLITE MANAGER.ASSOCIATE SOFTWARE APPLICATION ENGINEER [address] [place] [address] [facility] Att[facility] Family Medicine 08/23/24 Registration Representative Relationship Specialty Start Date End Date Juan Locke DO [address] [place] [address] PCP - General Family Medicine 08/19/15 Ronald Zimmer DO [address] [place] [address] Gastroenterology 06/18/24 Glenn Glez [address] [place] [address] Internal Medicine 06/18/24 Kavitha Hayes, GREGORY.ASSOCIATE SOFTWARE APPLICATION ENGINEER [address] [place] [address] [facility] Att[facility] Family Medicine 08/23/24 Nury Alexander, GREGORY.ASSOCIATE SOFTWARE APPLICATION ENGINEER [address] [place] [address] Gallery Or Museum Attendant [facility] 08/23/24 Registration Representative Relationship Specialty Start Date End Date Juan Locke DO [address] [place] [address] PCP - General Family Medicine 08/19/15 Ronald Zimmer DO [address] [place] [address] Gastroenterology 06/18/24 Glenn Glez [address] [place] [address] Internal Medicine 06/18/24 Kavitha Hayes, GREGORY.ASSOCIATE SOFTWARE APPLICATION ENGINEER [address] [place] [address] Gallery [facility] Museum Attendant [facility] 08/23/24 Nury Alexander, GREGORY.ASSOCIATE SOFTWARE APPLICATION ENGINEER [address] [place] [address] [facility] 08/23/24 Registration Representative Relationship Specialty Start Date End Date Juan Locke DO [address] [facility] [place] [address] PCP - General Family Medicine 08/19/15 Ronald Zimmer DO [address] [place] [address] Gastroenterology 06/18/24 Glenn Glez [address] [place] [address] Internal Medicine 06/18/24 Kavitha Hayes, GREGORY.ASSOCIATE SOFTWARE APPLICATION ENGINEER [address] [place] [address] Gallery Or Museum Attendant [facility] 08/23/24 Nury Alexander APRN.ASSOCIATE SOFTWARE APPLICATION ENGINEER [address] [place] [address] [facility] 08/23/24 Registration Representative Relationship Specialty Start Date End Date Juan Locke DO [address] [place] [address] PCP - General Family Medicine 08/19/15 Ronald Zimmer DO [address] [place] [address] Gastroenterology 06/18/24 Glenn Glez [address] [place] [address] Internal Medicine 06/18/24 Kavitha Hayes, GREGORY.ASSOCIATE SOFTWARE APPLICATION ENGINEER [address] [place] [address] Gallery Or Museum Attendant [facility] 08/23/24 Nury Alexander SATELLITE MANAGER.ASSOCIATE SOFTWARE APPLICATION ENGINEER [address] [place] [address] [facility] Or Museum Attendant [facility] 08/23/24 Registration Representative Relationship Specialty Start Date End Date Juan Locke DO [address] [place] [address] PCP - General Family Medicine 08/19/15 Ronald Zimmer DO [address] [place] [address] Gastroenterology 06/18/24 Glenn Glez [address] [place] [address] Internal Medicine 06/18/24 Kavitha Hayes, SATELLITE MANAGER.ASSOCIATE SOFTWARE APPLICATION ENGINEER [address] [place] [address] [facility] Or Museum Attendant [facility] 08/23/24 [facility] CenterNury, SATELLITE MANAGER.ASSOCIATE SOFTWARE APPLICATION ENGINEER [address] [place] [address] [facility] Or Museum Attendant [facility] 08/23/24 Registration Representative Relationship Specialty Start Date End Date Juan oLcke DO [address] [place] [address] PCP - General Family Medicine 08/19/15 Ronald Zimmer DO [address] [place] [address] Gastroenterology 06/18/24 Glenn Glez [address] [place] [address] Internal Medicine 06/18/24 Kavitha Hayes, SATELLITE MANAGER.ASSOCIATE SOFTWARE APPLICATION ENGINEER [address] [place] [address] Gallery Or Museum Attendant Family Medicine 08/23/24 [facility] CenterRomeroah, SATELLITE MANAGER.ASSOCIATE SOFTWARE APPLICATION ENGINEER [address] [place] [address] [facility] Museum Attendant [facility] 08/23/24 Registration Representative Relationship Specialty Start Date End Date Juan Locke DO [address] [place] [address] PCP - General Family Medicine 08/19/15 Ronald Zimmer DO [address] [place] [address] Gastroenterology 06/18/24 Glenn Glez [address] [place] [address] Internal Medicine 06/18/24 Kavitha Hayes, SATELLITE MANAGER.ASSOCIATE SOFTWARE APPLICATION ENGINEER [address] [place] [address] [facility] Attendant Family Medicine 08/23/24 [facility] CenterNury, SATELLITE MANAGER.ASSOCIATE SOFTWARE APPLICATION ENGINEER [address] [place] [address] [facility] Or Museum Attendant [facility] 08/23/24 Registration Representative Relationship Specialty Start Date End Date Juan Locke DO [address] [place] [address] PCP - General Family Medicine 08/19/15 Ronald Zimmer DO [address] [place] [address] Gastroenterology 06/18/24 Glenn Glez [address] [place] [address] Internal Medicine 06/18/24 Kavitha Hayes APRN.ASSOCIATE SOFTWARE APPLICATION ENGINEER [address] [place] [address] [facility] Museum Attendant [facility] 08/23/24 Nury Alexander APRN.ASSOCIATE SOFTWARE APPLICATION ENGINEER [address] [place] [address] [facility] Or Museum Attendant [facility] 08/23/24 Registration Representative Relationship Specialty Start Date End Date Juan Locke DO [address] [place] [address] PCP - General Family Medicine 08/19/15 Ronald Zimmer DO [address] [place] [address] Gastroenterology 06/18/24 Glenn Glez [address] [place] [address] Internal Medicine 06/18/24 Kavitha Hayes APRN.ASSOCIATE SOFTWARE APPLICATION ENGINEER [address] [facility] [place] [address] [facility] Museum Attendant [facility] 08/23/24 Nury Alexander APRN.ASSOCIATE SOFTWARE APPLICATION ENGINEER [address] [facility] [place] [address] Gallery Or Museum Attendant [facility] 08/23/24 Registration Representative Relationship Specialty Start Date End Date Juan Locke DO [address] [place] [address] PCP - General Family Medicine 08/19/15 Ronald Zimmer DO [address] [place] [address] Gastroenterology 06/18/24 Glenn Glez [address] [place] [address] Internal Medicine 06/18/24 Kavitha Hayes APRN.ASSOCIATE SOFTWARE APPLICATION ENGINEER [address] [facility] [place] [address] [facility] 08/23/24 Nury Alexander, SATELLITE MANAGER.ASSOCIATE SOFTWARE APPLICATION ENGINEER [address] [place] [address] [facility] 08/23/24 Registration Representative Relationship Specialty Start Date End Date Juan Locke DO [address] [facility] [place] [address] PCP - General Family Medicine 08/19/15 Ronald Zimmer DO [address] [place] [address] Gastroenterology 06/18/24 Glenn Glez [address] [place] [address] Internal Medicine 06/18/24 Nury Alexander, GREGORY.ASSOCIATE SOFTWARE APPLICATION ENGINEER [address] [place] [address] Gallery Or Museum Attendant [facility] 08/23/24 Registration Representative Relationship Specialty Start Date End Date Juan Locke DO [address] [place] [address] PCP - General Family Medicine 08/19/15 Ronald Zimmer DO [address] [place] [address] Gastroenterology 06/18/24 Glenn Glez [address] [place] [address] Internal Medicine 06/18/24 Nury Alexander, GREGORY.ASSOCIATE SOFTWARE APPLICATION ENGINEER [address] [place] [address] [facility] 08/23/24 Registration Representative Relationship Specialty Start Date End Date Juan Locke DO [address] [place] [address] PCP - General Family Medicine 08/19/15 Ronald Zimmer DO [address] [place] [address] Gastroenterology 06/18/24 lGenn Glez [address] [place] [address] Internal Medicine 06/18/24 Nury Alexander APRN.ASSOCIATE SOFTWARE APPLICATION ENGINEER [address] [place] [address] Gallery Or Museum Attendant Family [facility] 08/23/24 Registration Representative Relationship Specialty Start Date End Date Juan Locke, DO [address] [place] [address] PCP - General Family Medicine 08/19/15 Ronald Zimmer DO [address] [place] [address] Gastroenterology 06/18/24 Glenn Glez [address] [place] [address] Internal Medicine 06/18/24 Nury Alexander, GREGORY.ASSOCIATE SOFTWARE APPLICATION ENGINEER [address] [place] [address] [facility] 08/23/24 Registration Representative Relationship Specialty Start Date End Date Juan Locke DO [address] [place] [address] PCP - General Family Medicine 08/19/15 Ronald Zimmer DO [address] [place] [address] Gastroenterology 06/18/24 [address]nen [address] [place] [address] Internal Medicine 06/18/24 Nury Alexander, GREGORY.ASSOCIATE SOFTWARE APPLICATION ENGINEER [address] [place] [address] [facility] 08/23/24 Registration Representative Relationship Specialty Start Date End Date Juan Locke DO [address] [place] [address] PCP - General Family Medicine 08/19/15 Ronald Zimmer DO [address] [place] [address] Gastroenterology 06/18/24 Glenn Glez [address] [place] [address] Internal Medicine 06/18/24 Nury Alexander, GREGORY.ASSOCIATE SOFTWARE APPLICATION ENGINEER [address] [place] [address] Gallery Or Museum Attendant Family Medicine 08/23/24 Registration Representative Relationship Specialty Start Date End Date Juan Locke DO [address] [place] [address] PCP - General Family Medicine 08/19/15 Ronald Zimmer DO [address] [place] [address] Gastroenterology 06/18/24 Glenn Glez [address] [place] [address] Internal Medicine 06/18/24 Nury Alexander, SATELLITE MANAGER.ASSOCIATE SOFTWARE APPLICATION ENGINEER [address] [place] [address] Gallery Or Museum Attendant Family Medicine 08/23/24 Registration Representative Relationship Specialty Start Date End Date Juan Locke DO [address] [place] [address] PCP - General Family Medicine 08/19/15 Ronald Zimmer DO [address] [place], [place] [address] Gastroenterology 06/18/24 Glenn Glez [address] [place], [place] [address] Internal Medicine 06/18/24 Nury Alexander APRN.ASSOCIATE SOFTWARE APPLICATION ENGINEER [address] [facility] [place], [place] [address] Gallery Or Museum Attendant Family Medicine 08/23/24 Team Status: Active Member Role Status Dates Dr. Juan Locke DO Primary Care Provider Active Team Status: Inactive Member Role Status Dates Dr. Juan Locke DO Primary Care Provider Active Start: October 22, 2024 End: October 22, 2024 Dr. Ronald Zimmer DO Attending Provider Active Start: October 22, 2024 End: October 22, 2024 Dr. Ronald Zimmer DO Referring Provider Active Start: October 22, 2024 End: October 22, 2024 Team Status: Inactive Member Role Status Dates Dr. Juan Lcoke DO Primary Care Provider Active Start: November 07, 2024 End: November 10, 2024 Nasir Flanagan MD Emergency Provider Active Star t: November 07, 2024 End: November 10, 2024 Dr. Momo Hernandez DO Admit Provider Active Start: November 07, 2024 End: November 10, 2024 Dr. Momo Hernandez DO Other Provider Active Start: November 07, 2024 End: November 10, 2024 Dr. Anuj Tubbs MD Attending Provider Active Start: November 07, 2024 End: November 10, 2024 Team Status: Active Member Role Status Dates Dr. Juan Locke DO Primary Care Provider Active Start: November 07, 2024 Nasir Flanagan MD Emergency Provider Active Star t: November 07, 2024 Dr. Momo Hernandez DO Admit Provider Active Start: November 07, 2024 Dr. Momo Hernandez DO Attending Provider Active Start: November 07, 2024 Dr. Momo Hernandez , Other Provider Active Start: November 07, 2024 Team Status: Active Member Role Status Dates Dr. Juan Locke DO Primary Care Provider Active Start: November 07, 2024 Nasir Flanagan MD Emergency Provider Active Star t: November 07, 2024 Dr. Momo Hernandez , Admit Provider Active Start: November 07, 2024 Dr. Momo Hernandez DO Referring Provider Active Start: November 07, 2024 Dr. Momo Hernandez , Other Provider Active Start: November 07, 2024 Dr. Ronald Zimmer , Attending Provider Active Start: November 07, 2024 Team Status: Active Member Role Status Dates Dr. Juan Locke DO Primary Care Provider Active Start: November 08, 2024 Nasir Flanagan MD Emergency Provider Active Star t: November 08, 2024 Dr. Momo Hernandez DO Admit Provider Active Start: November 08, 2024 Dr. Momo Hernandez DO Attending Provider Active Start: November 08, 2024 Dr. Momo Hernandez , Other Provider Active Start: November 08, 2024 Team Status: Active Member Role Status Dates Dr. Juan Locke DO Primary Care Provider Active Start: November 09, 2024 Nasir Flanagan MD Emergency Provider Active Star t: November 09, 2024 Dr. Momo Hernandez DO Admit Provider Active Start: November 09, 2024 Dr. Momo Hernandez DO Other Provider Active Start: November 09, 2024 Dr. Anuj Tubbs MD Referring Provider Active Start: November 09, 2024 Dr. Anuj Tubbs MD Other Provider Active Start: November 09, 2024 Dr. Ronald Zimmer DO Attending Provider Active Start: November 09, 2024 Team Status: Active Member Role Status Dates Dr. Juan Locke DO Primary Care Provider Active Start: November 09, 2024 Nasir Flanagan MD Emergency Provider Active Star t: November 09, 2024 Dr. Momo Hernandez DO Admit Provider Active Start: November 09, 2024 Dr. Momo Hernandez DO Other Provider Active Start: November 09, 2024 Dr. Anuj Tubbs MD Attending Provider Active Start: November 09, 2024 Dr. Anuj Tubbs MD Other Provider Active Start: November 09, 2024 Team Status: Active Member Role Status Dates Dr. Juan Locke DO Primary Care Provider Active Start: November 10, 2024 Nasir Flanagan MD Emergency Provider Active Star t: November 10, 2024 Dr. Momo Hernandez DO Admit Provider Active Start: November 10, 2024 Dr. Momo Hernandez DO Other Provider Active Start: November 10, 2024 Dr. Anuj Tubbs MD Attending Provider Active Start: November 10, 2024 Dr. Anuj Tubbs MD Other Provider Active Start: November 10, 2024 Team Status: Inactive Member Role Status Dates Dr. Juan Locke DO Primary Care Provider Active Start: November 20, 2024 End: November 20, 2024 Dr. Juan Locke DO Referring Provider Active Start: November 20, 2024 End: November 20, 2024 ASHISH Frazier Attending Provider Active S tart: November 20, 2024 End: November 20, 2024 Team Status: Inactive Member Role Status Dates Dr. Juan Locke DO Primary Care Provider Active Start: December 07, 2024 End: December 07, 2024 Dr. Juan Locke DO Referring Provider Active Start: December 07, 2024 End: December 07, 2024 Dr. Ronald Zimmer DO Attending Provider Active Start: December 07, 2024 End: December 07, 2024 Team Status: Active Member Role Status Dates Dr. Juan Locke DO Primary Care Provider Active Start: February 09, 2025 Dr. Yared Peraza MD Emergency Provider Active Start: February 09, 2025 Dr. Kwasi Nieves DO Admit Provider Active Star t: February 09, 2025 Dr. Kwasi Nieves DO Attending Provider Active Start: February 09, 2025 Dr. Kwasi Nieves DO Referring Provider Active Start: February 09, 2025 Team Status: Active Member Role Status Dates Dr. Juan Locke DO Primary Care Provider Active Start: February 09, 2025 Dr. Yared Peraza MD Emergency Provider Active Start: February 09, 2025 Dr. Kwasi Nieves DO Admit Provider Active Star t: February 09, 2025 Dr. Kwasi Nieves DO Attending Provider Active Start: February 09, 2025 Dr. Kwasi Nieves DO Referring Provider Active Start: February 09, 2025 Dr. Kwasi Nieves , DO Other Provider Active Star t: February 09, 2025 Team Status: Inactive Member Role Status Dates Dr. Juan Locke DO Primary Care Provider Active Start: February 09, 2025 End: February 12, 2025 Dr. Yared Peraza MD Emergency Provider Active Start: February 09, 2025 End: February 12, 2025 Dr. Kwasi Nieves , DO Admit Provider Active Star t: February 09, 2025 End: February 12, 2025 Dr. Kwasi Nieves DO Referring Provider Active Start: February 09, 2025 End: February 12, 2025 Dr. Kwasi Nieves DO Other Provider Active Star t: February 09, 2025 End: February 12, 2025 Dr. Trisha Iraheta MD Attending Provider Active Start: February 09, 2025 End: February 12, 2025 Team Status: Active Member Role Status Dates Dr. Juan Locke DO Primary Care Provider Active Start: February 09, 2025 Dr. Yared Peraza MD Emergency Provider Active Start: February 09, 2025 Dr. Kwasi Nieves DO Admit Provider Active Star t: February 09, 2025 Dr. Kwasi Nieves DO Referring Provider Active Start: February 09, 2025 Dr. Kwasi Nieves DO Other Provider Active Star t: February 09, 2025 Dr. Trisha Iraheta MD Other Provider Active St art: February 09, 2025 Dr. Ronald Zimmer , Attending Provider Active Start: February 09, 2025 Team Status: Active Member Role Status Dates Dr. Juan Locke , DO Primary Care Provider Active Start: February 10, 2025 Dr. Yared Peraza MD Emergency Provider Active Start: February 10, 2025 Dr. Kwasi Nieves DO Admit Provider Active Star t: February 10, 2025 Dr. Kwasi Nieves DO Referring Provider Active Start: February 10, 2025 Dr. Kwasi Nieves DO Other Provider Active Star t: February 10, 2025 Dr. Trisha Iraheta MD Attending Provider Active Start: February 10, 2025 Dr. Trisha Iraheta MD Other Provider Active St art: February 10, 2025 Team Status: Active Member Role Status Dates Dr. Juan Locke DO Primary Care Provider Active Start: February 10, 2025 Dr. Yared Peraza MD Emergency Provider Active Start: February 10, 2025 Dr. Kwasi Nieves DO Admit Provider Active Star t: February 10, 2025 Dr. Kwasi Nieves DO Referring Provider Active Start: February 10, 2025 Dr. Kwasi Nieves DO Other Provider Active Star t: February 10, 2025 Dr. Trisha Iraheta MD Other Provider Active St art: February 10, 2025 Dr. Ronald Zimmer , Attending Provider Active Start: February 10, 2025 Team Status: Active Member Role Status Dates Dr. Juan Locke DO Primary Care Provider Active Start: February 11, 2025 Dr. Yared Peraza MD Emergency Provider Active Start: February 11, 2025 Dr. Kwasi Nieves DO Admit Provider Active Star t: February 11, 2025 Dr. Kwasi Nieves DO Referring Provider Active Start: February 11, 2025 Dr. Kwasi Nieves DO Other Provider Active Star t: February 11, 2025 Dr. Trisha Iraheta MD Attending Provider Active Start: February 11, 2025 Dr. Trisha Iraheta MD Other Provider Active St art: February 11, 2025 Team Status: Active Member Role Status Dates Dr. Juan Locke DO Primary Care Provider Active Start: February 11, 2025 Dr. Yared Peraza MD Emergency Provider Active Start: February 11, 2025 Dr. Kwasi Nieves DO Admit Provider Active Star t: February 11, 2025 Dr. Kwasi Nieves DO Referring Provider Active Start: February 11, 2025 Dr. Kwasi Nieves DO Other Provider Active Star t: February 11, 2025 Dr. Trisha Iraheta MD Other Provider Active St art: February 11, 2025 Dr. Ronald Zimmer , Attending Provider Active Start: February 11, 2025 Team Status: Active Member Role Status Dates Dr. Juan Locke DO Primary Care Provider Active Start: February 12, 2025 Dr. Yared Peraza MD Emergency Provider Active Start: February 12, 2025 Dr. Kwasi Nieves , DO Admit Provider Active Star t: February 12, 2025 Dr. Kwasi Nieves DO Referring Provider Active Start: February 12, 2025 Dr. Kwasi Nieves DO Other Provider Active Star t: February 12, 2025 Dr. Trisha Iraheta MD Attending Provider Active Start: February 12, 2025 Dr. Trisha Iraheta MD Other Provider Active St art: February 12, 2025 Team Status: Active Member Role Status Dates Dr. Juan Locke DO Primary Care Provider Active Start: February 09, 2025 Dr. Yared Peraza MD Emergency Provider Active Start: February 09, 2025 Dr. Kwasi Nieves DO Admit Provider Active Star t: February 09, 2025 Dr. Kwasi Nieves DO Attending Provider Active Start: February 09, 2025 Dr. Kwasi Nieves DO Other Provider Active Star t: February 09, 2025 Team Status: Active Member Role Status Dates Dr. Juan Locke DO Primary Care Provider Active Start: February 10, 2025 Dr. Yared Peraza MD Emergency Provider Active Start: February 10, 2025 Dr. Kwasi Nieves DO Admit Provider Active Star t: February 10, 2025 Dr. Kwasi Nieves DO Other Provider Active Star t: February 10, 2025 Dr. Trisha Iraheta MD Attending Provider Active Start: February 10, 2025 Dr. Trisha Iraheta MD Other Provider Active St art: February 10, 2025 Team Status: Active Member Role Status Dates Dr. Juan Locke DO Primary Care Provider Active Start: February 11, 2025 Dr. Yared Peraza MD Emergency Provider Active Start: February 11, 2025 Dr. Kwasi Nieves DO Admit Provider Active Star t: February 11, 2025 Dr. Kwasi Nieves DO Other Provider Active Star t: February 11, 2025 Dr. Trisha Iraheta MD Attending Provider Active Start: February 11, 2025 Dr. Trisha Iraheta MD Other Provider Active St art: February 11, 2025 Team Status: Active Member Role Status Dates Dr. Juan Locke DO Primary Care Provider Active Start: February 12, 2025 Dr. Yared Peraza MD Emergency Provider Active Start: February 12, 2025 Dr. Kwasi Nieves DO Admit Provider Active Star t: February 12, 2025 Dr. Kwasi Nieves DO Other Provider Active Star t: February 12, 2025 Dr. Trisha Iraheta MD Attending Provider Active Start: February 12, 2025 Dr. Trisha Iraheta MD Other Provider Active St art: February 12, 2025 Team Status: Inactive Member Role Status Dates Dr. Juan Locke DO Primary Care Provider Active Start: February 26, 2025 End: February 26, 2025 Dr. Juan Locke DO Referring Provider Active Start: February 26, 2025 End: February 26, 2025 ASHISH Frazier Attending Provider Active S tart: February 26, 2025 End: February 26, 2025 Team Status: Inactive Member Role Status Dates Dr. Juan Locke DO Primary Care Provider Active Start: February 26, 2025 End: February 26, 2025 ASHISH Frazier Attending Provider Active S tart: February 26, 2025 End: February 26, 2025 ASHISH Frazier Referring Provider Active S tart: February 26, 2025 End: February 26, 2025 Registration Representative Relationship Specialty Start Date End Date Juan Locke DO [address] [place] [address] PCP - General Family Medicine 08/19/15 Ronald Zimmer DO [address] [id number] Gastroenterology 06/18/24 Glenn Glez [address] [id number] Internal Medicine 06/18/24 [facility], SATELLITE MANAGER.ASSOCIATE SOFTWARE APPLICATION ENGINEER [address] [place] [address] [facility] 08/23/24 Karli Jauregui, SATELLITE MANAGER.ASSOCIATE SOFTWARE APPLICATION ENGINEER [address] [facility] [place] [address] [facility] 03/01/25 Registration Representative Relationship Specialty Start Date End Date Juan Locke DO [address] [place] [address] PCP - General Family Medicine 08/19/15 Ronald Zimmer DO [address] [facility] [address] [place] [address] Gastroenterology 06/18/24 Glenn Glez [address] [facility] [address] [place] [address] Internal Medicine 06/18/24 [facility], SATELLITE MANAGER.ASSOCIATE SOFTWARE APPLICATION ENGINEER [address] [place] [address] [facility] 08/23/24 Karli Jauregui, SATELLITE MANAGER.ASSOCIATE SOFTWARE APPLICATION ENGINEER [address] [facility] [place] [address] [facility] 03/01/25 Registration Representative Relationship Specialty Start Date End Date Juan Locke DO [address] [place] [address] PCP - General Family Medicine 08/19/15 Ronald Zimmer DO [address] [place] [address] Gastroenterology 06/18/24 Glenn Glez [address] [place] [address] Internal Medicine 06/18/24 Nury Alexander, SATELLITE MANAGER.ASSOCIATE SOFTWARE APPLICATION ENGINEER [address] [place] [address] [employer] Att[employer] Family Medicine 08/23/24 Karli Jauregui, SATELLITE MANAGER.ASSOCIATE SOFTWARE APPLICATION ENGINEER [address] [facility] [place] [address] [employer] Attendant Family Medicine 03/01/25 Registration Representative Relationship Specialty Start Date End Date Juan Locke DO [address] [place] [address] PCP - General Family Medicine 08/19/15 Ronald Zimmer DO [address] [facility] [address] [place] [address] Gastroenterology 06/18/24 Glenn Glez [address] [facility] [address] [place] [address] Internal Medicine 06/18/24 Nury Alexander, SATELLITE MANAGER.ASSOCIATE SOFTWARE APPLICATION ENGINEER [address] [facility], [place] [address] [employer] Attendant Family Medicine 08/23/24 Karli Jauregui, SATELLITE MANAGER.ASSOCIATE SOFTWARE APPLICATION ENGINEER [address] [facility], [place] [address] [facility] 03/01/25 Registration Representative Relationship Specialty Start Date End Date Juan Locke DO [address] [place] [address] PCP - General Family Medicine 08/19/15 Ronald Zimmer DO [address] [address] [place] [address] Gastroenterology 06/18/24 Glenn Glez [address] [facility] [address] [place] [address] Internal Medicine 06/18/24 Nury Alexander, GREGORY.ASSOCIATE SOFTWARE APPLICATION ENGINEER [address] [place] [address] [facility] 08/23/24 Karli Jauregui SATELLITE MANAGER.ASSOCIATE SOFTWARE APPLICATION ENGINEER [address] [facility] [place] [address] [facility] 03/01/25 Registration Representative Relationship Specialty Start Date End Date Juan Locke DO [address] [place] [address] PCP - General Family Medicine 08/19/15 Ronald Zimmer DO [address] [address] [place] [address] Gastroenterology 06/18/24 Glenn Glez [address] [address] [place] [address] Internal Medicine 06/18/24 Nury Alexander, SATELLITE MANAGER.ASSOCIATE SOFTWARE APPLICATION ENGINEER [address] [place] [address] Gallery Or Museum Attendant Family Medicine 08/23/24 Karli Jauregui, SATELLITE MANAGER.ASSOCIATE SOFTWARE APPLICATION ENGINEER [address] [facility] [place] [address] [employer] Attendant Family Medicine 03/01/25 Registration Representative Relationship Specialty Start Date End Date Juan Locke DO [address] [place] [address] PCP - General Family Medicine 08/19/15 Ronald Zimmer DO [address] [place] [address] Gastroenterology 06/18/[address] Glenn Glez [address] [place] [address] Internal Medicine 06/18/24 Nury Alexander, SATELLITE MANAGER.ASSOCIATE SOFTWARE APPLICATION ENGINEER [address] [place] [address] Gallery Or Museum Attendant Family Medicine 08/23/24 Karli Jauregui, SATELLITE MANAGER.ASSOCIATE SOFTWARE APPLICATION ENGINEER [address] [facility] [place] [address] Gallery Or Museum Attendant [facility] 03/01/25 Registration Representative Relationship Specialty Start Date End Date Juan Locke DO [address] [place] [address] PCP - General Family Medicine 08/19/15 Ronald Zimmer DO [address] [place] [address] Gastroenterology 06/18/24 Glenn Glez [address] [place] [address] Internal Medicine 06/18/24 Nury Alexander, SATELLITE MANAGER.ASSOCIATE SOFTWARE APPLICATION ENGINEER [address] [facility] [address] Gallery Or Museum Attendant Family Medicine 08/23/24 Karli Jauregui, SATELLITE MANAGER.ASSOCIATE SOFTWARE APPLICATION ENGINEER [address] [place] [address] [facility] 03/01/25 Registration Representative Relationship Specialty Start Date End Date Juan Locke DO [address] [facility] [place] [address] PCP - General Family Medicine 08/19/15 Ronald Zimmer DO [address] [place] [address] Gastroenterology 06/18/24 Glenn Glez [address] [place] [address] Internal Medicine 06/18/24 BenjaminNury, SATELLITE MANAGER.ASSOCIATE SOFTWARE APPLICATION ENGINEER [address] [facility] [address] [facility] 08/23/24 Karli Jauregui, SATELLITE MANAGER.ASSOCIATE SOFTWARE APPLICATION ENGINEER [address] [place] [address] [facility] 03/01/25 Registration Representative Relationship Specialty Start Date End Date Juan Locke DO [address] [place] [address] PCP - General Family Medicine 08/19/15 Ronald Zimmer DO [address] [place] [address] Gastroenterology 06/18/24 Glenn Glez [address] [place] [address] Internal Medicine 06/18/24 Nury Alexander, GREGORY.ASSOCIATE SOFTWARE APPLICATION ENGINEER [address] [place] [address] Gallery Or Museum Attendant [facility] 08/23/24 Karli Jauregui APRN.ASSOCIATE SOFTWARE APPLICATION ENGINEER [address] [facility] [place] [address] [facility] 03/01/25 Registration Representative Relationship Specialty Start Date End Date Juan Locke DO [address] [place] [address] PCP - General Family Medicine 08/19/15 Ronald Zimmer DO [address] [place] [address] Gastroenterology 06/18/24 Glenn Glez [address] [place] [address] Internal Medicine 06/18/24 Nury Alexander, GREGORY.ASSOCIATE SOFTWARE APPLICATION ENGINEER [address] [place] [address] Gallery Or Museum Attendant [facility] 08/23/24 Karli Jauregui SATELLITE MANAGER.ASSOCIATE SOFTWARE APPLICATION ENGINEER [address] [facility] [place] [address] [employer] Attendant Family Medicine 03/01/25 Registration Representative Relationship Specialty Start Date End Date Juan Locke DO [address] [facility] [address] PCP - General Family Medicine 08/19/15 Rnoald Zimmer DO [address] [place] [address] Gastroenterology 06/18/24 Glenn Glez [address] [place] [address] Internal Medicine 06/18/24 Nury Alexander, SATELLITE MANAGER.ASSOCIATE SOFTWARE APPLICATION ENGINEER [address] [place] [address] Gallery Or Museum Attendant Family Medicine 08/23/24 Karli Jauregui, SATELLITE MANAGER.ASSOCIATE SOFTWARE APPLICATION ENGINEER [address] [facility] [place] [address] Gallery Or Museum Attendant Family Medicine 03/01/25 Registration Representative Relationship Specialty Start Date End Date Juan Locke DO [address] [facility] [place] [address] PCP - General Family Medicine 08/19/15 Ronald Zimmer DO [address] [place] [address] Gastroenterology 06/18/24 Glenn Glez [address] [place] [address] Internal Medicine 06/18/24 Nury Alexander APRN.ASSOCIATE SOFTWARE APPLICATION ENGINEER [address] [place], [place] [id number] [facility] 08/23/24 Karli Jauregui APRN.ASSOCIATE SOFTWARE APPLICATION ENGINEER [address] [place] [address] [facility] 03/01/25 Goals (unrecognized section and content) Goals may be documented in a n alternate sectionGoals may be documented in an alternate section Inactive Administered Medications - up to 3 most recent administrations Administered Medications (un recognized section and content) Medication Order MAR Action Action Date Dose Rate Site iron sucrose iv piggyback 200 mg in NaCl 0.9% 100 mL (VENOFER) 200 mg, INTRAVENOUS, at 400 mL/hr, Administer over 15 Minutes, ONCE, 1 dose, On Sat10/29/23 at 1130, Please conduct a 30 minute post dose observation. Refrigerate New Bag/Syringe/Bottle 10/29/2023 11:36 AM EST 200 mg 400 mL/hr Inactive Administered Medications - up to 3 most recent administrations Medication Order MAR Action Action Date Dose Rate Site iron sucrose 200 mg in NaCl 0.9% 100 mL (VENOFER) 200 mg, INTRAVENOUS, at 400 mL/hr, Administer over 15 Minutes, ONCE, 1 dose, On Sat11/01/23 at 1200, Approx Total Volume: 120 mL - Expires: 11/01/23 @ 1600 Please conduct a 30 minute post dose observation. New Bag/Syringe/Bottle 11/01/2023 11:48 AM EST 200 mg 400 mL/hr Inactive Administered Medications - up to 3 most recent administrations Medication Order MAR Action Action Date Dose Rate Site iron sucrose iv piggyback 200 mg in NaCl 0.9% 100 mL (VENOFER) 200 mg, INTRAVENOUS, at 400 mL/hr, Administer over 15 Minutes, ONCE, 1 dose, On Sat11/08/23 at 1100, Please conduct a 30 minute post dose observation. Refrigerate New Bag/Syringe/Bottle 11/08/2023 11:15 AM EST 200 mg 400 mL/hr Inactive Administered Medications - up to 3 most recent administrations Medication Order MAR Action Action Date Dose Rate Site iron sucrose iv piggyback 200 mg in NaCl 0.9% 100 mL (VENOFER) 200 mg, INTRAVENOUS, at 400 mL/hr, Administer over 15 Minutes, ONCE, 1 dose, On Sat11/13/23 at 1400, Please conduct a 30 minute post dose observation. Refrigerate New Bag/Syringe/Bottle 11/13/2023 2:02 PM EST 200 mg 400 mL/hr Inactive Administered Medications - up to 3 most recent administrations Medication Order MAR Action Action Date Dose Rate Site iron sucrose iv piggyback 200 mg in NaCl 0.9% 100 mL (VENOFER) 200 mg, INTRAVENOUS, at 400 mL/hr, Administer over 15 Minutes, ONCE, 1 dose, On Sat11/15/23 at 1400, Please conduct a 30 minute post dose observation. Refrigerate New Bag/Syringe/Bottle 11/15/2023 2:09 PM EST 200 mg 400 mL/hr Inactive Administered Medications - up to 3 most recent administrations Medication Order MAR Action Action Date Dose Rate Site iron sucrose iv piggyback 200 mg in NaCl 0.9% 100 mL (VENOFER) 200 mg, INTRAVENOUS, at 400 mL/hr, Administer over 15 Minutes, ONCE, 1 dose, On Sat12/27/23 at 1330, Please conduct a 30 minute post dose observation. Refrigerate New Bag/Syringe/Bottle 12/27/2023 1:37 PM EDT 200 mg 400 mL/hr Inactive Administered Medications - up to 3 most recent administrations Medication Order MAR Action Action Date Dose Rate Site iron sucrose iv piggyback 200 mg in NaCl 0.9% 100 mL (VENOFER) 200 mg, INTRAVENOUS, at 400 mL/hr, Administer over 15 Minutes, ONCE, 1 dose, On Sat12/30/23 at 1600, Please conduct a 30 minute post dose observation. Refrigerate New Bag/Syringe/Bottle 12/30/2023 3:44 PM EDT 200 mg 400 mL/hr Inactive Administered Medications - up to 3 most recent administrations Medication Order MAR Action Action Date Dose Rate Site iron sucrose iv piggyback 200 mg in NaCl 0.9% 100 mL (VENOFER) 200 mg, INTRAVENOUS, at 400 mL/hr, Administer over 15 Minutes, ONCE, 1 dose, On Sat01/03/24 at 1130, Please conduct a 30 minute post dose observation. Refrigerate New Bag/Syringe/Bottle 01/03/2024 11:08 AM EDT 200 mg 400 mL/hr INFORMATION SOURCE (unrecogn ized section and content) DATE CREATED AUTHOR 04/03/2025 [facility] DATE CREATED AUTHOR AUTHOR'S ORGANIZ ATION 04/27/2025 [facility] DATE CREATED AUTHOR AUTHOR'S ORGANIZ ATION 05/21/2025 [place] FOR RECORDS PERTAINING TO PATIENTS WHO ARE OR HAVE BEEN ENROLLED IN A CHEMICAL DEPENDENCY/SUBSTANCEABUSE PROGRAM, SOME INFORMATION MAY BE OMITTED. This clinical summary was aggregated from multiple sources. Caution should be exercised in using it in the provision of clinical care. This summary normalizes information from multiple sources, and as a consequence, information in this document may materially change the coding, format and clinical context of patient data. In addition, data may be omitted in some cases. CLINICAL DECISIONS SHOULD BE BASED ON THE PRIMARY CLINICAL RECORDS. [employer] provides no warranty or guarantee of the accuracy or completeness of information in this document.
[2025-05-22 11:52] LABS: Hematocrit 34.6 % (37-47); Hemoglobin 11.6 g/dL (12.0-15.0); Immature Granulocytes Count 0.010 X10^3/uL (0.0-0.0); Mean Corp Hgb Conc 33.5 g/dL (32-36); Mean Corpuscular Volume 82.8 fL (81-99); Mean Platelet Vol. 10.0 fl (6.2-12.0); POSITIVE COUNT YES; POSITIVE MORPHOLOGY YES; Platelet Count 91 K/mm3 (150-450); RBC Distribution Width CV 22.3 % (11.6-14.6); RBC Distribution Width SD 65.1 fl (35.1-43.9); Red Blood Count 4.18 M/mm3 (4.2-5.4); White Blood Count 4.6 K/mm3 (4.4-11.0)
[2025-05-22 12:06] LABS: NRBC Flagged by Analyzer 3 % (0-5)
[2025-05-22 12:07] LABS: Differential Indicated SCAN CRITERIA MET
[2025-05-22 12:25] LABS: Ammonia 48.4 umol/L (11-51)
[2025-05-22 12:26] LABS: AST(SGOT) 29 U/L (<=31); Alanine Aminotransfer ALT/SGPT 20 U/L (<=34); Albumin, Serum 4.2 g/dL (3.4-4.8); Alkaline Phosphatase 125 U/L (35-104); Anion Gap 11 (5-15); BUN 22 mg/dL (4-19); BUN/Creat Ratio 13.6 RATIO (10-20); CRP < 3.00 mg/L (0.0-3.0); Calcium,Total 10.1 mg/dL (7.6-11.0); Carbon Dioxide 19.0 mmol/L (21.0-32.0); Chloride 105 mmol/L (98-108); Globulin 2.7 g/dL (2.2-4.2); Glucose 108 mg/dL (70-99); Potassium 4.7 mmol/L (3.3-5.1)
[2025-05-22 12:35] LABS: Differential Comment SCANNED
[2025-05-22 12:36] LABS: Partial Thromboplast Time 29.2 Seconds (24.1-36.2)
[2025-05-22 12:39] LABS: Anisocytosis 2+; Macrocytosis 1+; Microcytosis 1+
[2025-05-22 12:48] LABS: Prothrombin Time (Protime)PT. 15.7 SECONDS (11.7-14.9)
== END | disposition home or self-care (01) ==
LOC: LAB 11:25
PROVIDERS: PCP Student in an Organized Health Care Education/Training Program; Referring Provider Internal Medicine Gastroenterology; Visit Provider Internal Medicine Gastroenterology
DX: K74.60 Unspecified cirrhosis of liver (principal)
CPT/HCPCS: 36415; 80053; 82105; 82140; 85025; 85610; 85652; 85730; 86140